=== PATIENT | female | born 1985 | race Caucasian/White ===

== ENCOUNTER 2020-05-05 13:00 | Outpatient (RCR) | payer OTHER, SELFPAY ==
--- NOTE | 2020-01-04 14:35 | HO.PHPPROGNO ---
Subjective Subjective Date of Service: 01/04/20 Reason For Visit: depression Interim History: Sandi reports she has completed PHP with [facility]. They are looking for a prescriber for her and she will do an OP LGBT group. She is on the waiting list for a trauma group as well. Mood depends on the day . Pristiq is tolerated but was hard at first with PENNY and feeling tired, then resolved. Fetzima has been stopped. She is prepared today to titrate to 100 mg daily of Pristiq. Sleep is ok with nightmares at times . Seroquel taper is at 150 mg. Today she would like to trial a decrease of 50 mg (mid-day dose), so we will do 50 mg a.m. 50 mg mid day prn and 150 mg hs. Attempting to go out with friends in community-following COVID guidelines and has purchased some plants. Plans to get a beta fish as well. Currently attending psychotherapy twice per week and will intake today to return to [facility] treatment which is one group per day. Discussed watching the presidential debate, it felt like my childhood to the core . Describes this as being very triggering for her. Mental Status Exam Mental Status Exam Patient Appearance: Appropriate Patient Orientation: Person, Place, Time and Situation Level of Consciousness: Awake, Appropriate and Alert Patient Behavior: Appropriate and Cooperative Mood Description: Constricted, Depressed and Flat Affect Description: Flat Patient Cognition Impaired: No Ability to Follow Directions: Excellent Speech Pattern: Clear Memory Description: Intact Perceptual Disturbances: Depersonalization Thought Process: Intact and Rumination Thought Content: positive for Intact and positive for Suicidal Ideation (passive, no current plan or intent-struggles with this consistently) Depressive Symptoms: Loss of Int. in Activity, Hopelessness, Thoughts of /Suicide, Low Self Esteem and Loss of Energy Judgement: Good Judgement and Insight: Intact Assessment & Plan Patient educated on: medication risk/benefits Informed Consent: understands Certification I certify that partial hospital treatment is medically necessary due to the symptoms and problems resulting from the patient's mental illness and the failure to treat the patient at the partial hospital level of care would likely result in the patient requiring inpatient psychiatric care which could not be prevented at a less intensive level of care. Greater than 50% of the session was spent on counseling and/or coordination of care Discharge Plan Discharge Attending provider: [place],Orin M Additional Instructions: Increase Pristiq to 100 mg daily Decrease Seroquel to 50 mg a.m. and 150 mg hs Keep Seroquel 50 mg mid day as prn only. Medications: New desvenlafaxine succinate [Pristiq] 100 mg tablet extended release 24 hr 100 mg PO DAILY Qty: 30 RF: 1 quetiapine [Seroquel] 50 mg tablet 50 mg PO DAILY Qty: 45 RF: 0 lithium carbonate 600 mg capsule 600 mg PO BID Qty: 60 RF: 0 dextroamphetamine-amphetamine [Adderall] 20 mg tablet 20 mg PO DAILY Qty: 30 RF: 0 dextroamphetamine-amphetamine [Adderall] 10 mg tablet 10 mg PO DAILY Qty: 30 RF: 0 No Action Ativan 1 mg 1 mg PO DAILY RF: 0 Ativan 1 mg 1 mg PO DAILY PRN (Reason: Anxiety) RF: 0 prazosin 5 mg 5 mg PO BEDTIME RF: 0 Seroquel 150 mg 150 mg PO BEDTIME RF: 0
--- NOTE | 2020-02-06 09:41 | HO.OPPROGNO ---
Subjective Subjective Date of Service: 01/11/20 Reason For Visit: depression Interim History: Jonathon will have an intake with [facility] on 01/21 for LGBT Group meeting virtually on Tuesdays from 5-6 pm. She has re-started [facility] daily group-was pleased to see familiar faces. Group is small- 6 members, leader and one it intern. Notices some of the energy has shifted in group. Home is less stressed, marcia has lost a family member this year and grief is palpable. Pt able to talk with her CHANGE LEAD from [facility] who is changing jobs and have some closure which she is satisfied with. Medications- Pristiq is tolerated and without SE. Pt finds it to be effective. Cessation of afternoon Seroquel with change to prn has also been tolerated without sx breakthrough or adverse effects. Pt plans to go to every other week med appt. Medication Compliance: Yes Side effects from medications: No Attending Groups: Yes ([facility] Day Treatment daily 1 hours, [place] LGBT group weekly to begin.) Review of Systems Review of Systems Yes all other systems are reviewed and are negative Psychiatric: Reports depression, Reports hopelessness, Reports anhedonia and Reports suicidal ideation (SI is persistant. Jonathon struggles with this on an ongoing basis. ) Mental Status Exam Mental Status Exam Patient Orientation: Person, Place, Time and Situation Level of Consciousness: Awake, Appropriate and Alert Patient Behavior: Appropriate, Cooperative and Passive Mood Description: Depressed Affect Description: Calm and Constricted Patient Cognition Impaired: No Ability to Follow Directions: Excellent Speech Pattern: Clear, Appropriate and Spontaneous Speech Memory Description: Intact Hallucinations: None Delusions: Not Present Thought Process: Intact Thought Content: positive for Intact and positive for Suicidal Ideation (persistant-able to contract for safety) Depressive Symptoms: Loss of Int. in Activity, Feelings of Worthlessness, Hopelessness, Unhappiness and Low Self Esteem Judgement: Good Discharge Plan Discharge Attending provider: Orin Albrecht Additional Instructions: Increase Pristiq to 100 mg daily Decrease Seroquel to 50 mg a.m. and 150 mg hs Keep Seroquel 50 mg mid day as prn only. 01/11/20- No changes today. email: [email or web address] next appt 01/23/20 will change to every other week. Medications: New desvenlafaxine succinate [Pristiq] 100 mg tablet extended release 24 hr 100 mg PO DAILY Qty: 30 RF: 1 quetiapine [Seroquel] 50 mg tablet 50 mg PO DAILY Qty: 45 RF: 0 dextroamphetamine-amphetamine [Adderall] 20 mg tablet 20 mg PO DAILY Qty: 30 RF: 0 dextroamphetamine-amphetamine [Adderall] 10 mg tablet 10 mg PO DAILY Qty: 30 RF: 0 lorazepam 1 mg tablet 1 mg PO BID PRN (Reason: anxiety) Qty: 60 RF: 0 Continued lithium carbonate 600 mg capsule 600 mg PO BID Qty: 60 RF: 1 Discontinued Ativan 1 mg 1 mg PO DAILY RF: 0 Ativan 1 mg 1 mg PO DAILY PRN (Reason: Anxiety) RF: 0 No Action prazosin 5 mg 5 mg PO BEDTIME RF: 0 Seroquel 150 mg 150 mg PO BEDTIME RF: 0 Assessment & Plan Patient educated on: medication risk/benefits and therapeutic strategies Informed Consent: understands and further education needed Reason for contiued therapy Substantial Risk for: harm to self, inability to function and rapid decompensation Greater than 50% of the session was spent on counseling and/or coordination of care
--- NOTE | 2020-02-06 11:08 | P.PNPSO_ITS ---
Subjective Subjective Date of Service: 01/23/20 Reason For Visit: depression Interim History: Reports regime to be effective. Discussed discontinuing a.m. Seroquel 50 mg., leaving Seroquel as 50 mg bid prn and [address] in [address]. We have been attempting to work around COVID to schedule a sleep eval for pt. At this time, since COVID cases are increasing, we will hold on this evaluation per pt request. She will notify global technical writer when comfortable to reschedule. Discussed concern about a friend who is hospitalized, also reports sore muscles -back, neck, shoulders and exacerbation of tennis elbow. Medication Compliance: Yes Side effects from medications: No Attending Groups: Yes ([facility], one hour group daily/[facility] grp pending) Review of Systems Reports neck pain Musculoskeletal: Reports back pain, Reports myalgias, Reports arthralgias and Reports neck pain Comments: Shoulder pain, exacerbation of tennis elbow. Psychiatric: Reports depression, Reports hopelessness and Reports other (muscle and joint pain) Mental Status Exam Mental Status Exam Patient Appearance: Well Grooomed and Appropriate Patient Orientation: Person, Place and Time Level of Consciousness: Awake, Appropriate and Alert Patient Behavior: Appropriate and Cooperative Mood Description: Depressed Affect Description: Flat Patient Cognition Impaired: No Ability to Follow Directions: Excellent Speech Pattern: Clear, Appropriate and Spontaneous Speech Memory Description: Intact Hallucinations: None Delusions: Not Present Thought Process: Intact and Goal Oriented Thought Content: positive for Intact Depressive Symptoms: Muscle Tension, Muscle Pain, Hopelessness, Unhappiness, Increased Fatigue, Thoughts of /Suicide (ongoing-able to contract for her safety.) and Back Pain Judgement: Good Discharge Plan Discharge Attending provider: Orin Albrecht Additional Instructions: Increase Pristiq to 100 mg daily Decrease Seroquel to 50 mg a.m. and 150 mg hs Keep Seroquel 50 mg mid day as prn only. 01/11/20- No changes today. email: [email or web address] next appt 01/23/20 will change to every other week. 01/23/20: Discontinue Seroquel 50 mg bid, Change to Seroquel 50 mg bid prn, Continue Seroquel 150 mg hs, Medications: New desvenlafaxine succinate [Pristiq] 100 mg tablet extended release 24 hr 100 mg PO DAILY Qty: 30 RF: 1 quetiapine [Seroquel] 50 mg tablet 50 mg PO DAILY Qty: 45 RF: 0 dextroamphetamine-amphetamine [Adderall] 20 mg tablet 20 mg PO DAILY Qty: 30 RF: 0 dextroamphetamine-amphetamine [Adderall] 10 mg tablet 10 mg PO DAILY Qty: 30 RF: 0 lorazepam 1 mg tablet 1 mg PO BID PRN (Reason: anxiety) Qty: 60 RF: 0 Continued lithium carbonate 600 mg capsule 600 mg PO BID Qty: 60 RF: 1 Discontinued Ativan 1 mg 1 mg PO DAILY RF: 0 Ativan 1 mg 1 mg PO DAILY PRN (Reason: Anxiety) RF: 0 No Action prazosin 5 mg 5 mg PO BEDTIME RF: 0 Seroquel 150 mg 150 mg PO BEDTIME RF: 0 Assessment & Plan Patient educated on: medication risk/benefits and therapeutic strategies Informed Consent: understands and further education needed Reason for contiued therapy Substantial Risk for: harm to self, inability to function and rapid decompe nsation Greater than 50% of the session was spent on counseling and/or coordination of care
--- NOTE | 2020-02-07 20:37 | HO.OPPROGNO ---
Subjective Subjective Date of Service: 02/07/20 Reason For Visit: depression Interim History: Pt reports a difficult week-election process has been stressful for her. She has had insomnia since Tuesday with GI distress. She has been able to stop Seroquel 50 mg bid and is just using 200 mg HS. She has initiated a LGBT group with [facility] weekly and is finding it helpful after two sessions. She does note lability and numbess, sadness and anxiety with the world at this moment in time. Remainder of regime is intact. Medication Compliance: Yes Side effects from medications: No Attending Groups: Yes ([facility]) Review of Systems Gastrointestinal: Reports nausea (pt believes this is due to anxiety) Psychiatric: Reports abnormal sleep pattern, Reports anxiety, Reports depression, Reports difficulty concentrating, Reports hopelessness, Reports irritability, Reports anhedonia and Reports suicidal ideation Comments: passive, without plan or intent. Mental Status Exam Mental Status Exam Patient Appearance: Well Grooomed and Appropriate Patient Orientation: Person, Place, Time and Situation Level of Consciousness: Awake, Appropriate and Alert Patient Behavior: Appropriate Affect Description: Flat Patient Cognition Impaired: No Ability to Follow Directions: Excellent Speech Pattern: Clear, Appropriate and Spontaneous Speech Memory Description: Intact Hallucinations: None Delusions: Not Present Perceptual Disturbances: Depersonalization (at times with PTSD sx.) Thought Process: Intact Thought Content: positive for Intact and positive for Suicidal Ideation (passive, no plan or intent) Depressive Symptoms: Increased Anxiety, Insomnia, Difficulty Sleeping, Loss of Int. in Activity, Feelings of Worthlessness, Hopelessness, Unhappiness, Increased Fatigue, Low Self Esteem and Loss of Energy Judgement: Good Discharge Plan Discharge Attending provider: Orin Albrecht Additional Instructions: Increase Pristiq to 100 mg daily Decrease Seroquel to 50 mg a.m. and 150 mg hs Keep Seroquel 50 mg mid day as prn only. 01/11/20- No changes today. email: [email or web address] next appt 01/23/20 will change to every other week. 01/23/20: Discontinue Seroquel 50 mg bid, Change to Seroquel 50 mg bid prn, Continue Seroquel 150 mg hs, 02/07/20: Increase HS Seroquel to 200 mg hs. Continue previous regime. Medications: New desvenlafaxine succinate [Pristiq] 100 mg tablet extended release 24 hr 100 mg PO DAILY Qty: 30 RF: 1 lorazepam 1 mg tablet 1 mg PO BID PRN (Reason: anxiety) Qty: 60 RF: 0 quetiapine [Seroquel] 200 mg tablet 200 mg PO BEDTIME Qty: 30 RF: 1 Continued lithium carbonate 600 mg capsule 600 mg PO BID Qty: 60 RF: 1 dextroamphetamine-amphetamine [Adderall] 10 mg tablet 10 mg PO DAILY Qty: 30 RF: 0 dextroamphetamine-amphetamine [Adderall] 20 mg tablet 20 mg PO DAILY Qty: 30 RF: 0 Discontinued Ativan 1 mg 1 mg PO DAILY RF: 0 Ativan 1 mg 1 mg PO DAILY PRN (Reason: Anxiety) RF: 0 Seroquel 150 mg 150 mg PO BEDTIME RF: 0 No Action prazosin 5 mg 5 mg PO BEDTIME RF: 0 Assessment & Plan Patient educated on: medication risk/benefits and therapeutic strategies Informed Consent: understands Reason for contiued therapy Substantial Risk for: harm to self and rapid decompensation Greater than 50% of the session was spent on counseling and/or coordination of care
--- NOTE | 2020-02-22 13:36 | P.PNPSO_ITS ---
Subjective Subjective Date of Service: 02/22/20 Reason For Visit: depression Interim History: Reports regime and recent tapering of Seroquel to be tolerated. Will stop tapering currently as she is wanting to avoid any chance of needing in pt care due to COVID. Unsure of holiday plans-wanting to cancel, however, does not believe her family will understand. Medication Compliance: Yes Side effects from medications: No Attending Groups: Yes ([facility] daily, [facility] weekly) Review of Systems Review of Systems Yes all other systems are reviewed and are negative Reports mouth pain (pt cracked her tooth-has made a dental appt for evaluation) Psychiatric: Reports anxiety (COVID related), Reports depression and Reports suicidal ideation (no plan, no intent today) Mental Status Exam Mental Status Exam Patient Orientation: Person, Place, Time and Situation Level of Consciousness: Awake and Alert Patient Behavior: Appropriate Mood Description: Anxious, Flat and Sad Affect Description: Flat Patient Cognition Impaired: No Ability to Follow Directions: Excellent Speech Pattern: Clear, Spontaneous Speech, Coherent and Soft-Spoken Memory Description: Intact Hallucinations: None Delusions: Not Present Perceptual Disturbances: Depersonalization (with dissociation at times-terminal operations manager 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 and 150 mg hs Keep Seroquel 50 mg mid day as prn only. 01/11/20- No changes today. email: [email or web address] next appt 01/23/20 will change to every other week. 01/23/20: Discontinue Seroquel 50 mg bid, Change to Seroquel 50 mg bid prn, Continue Seroquel 150 mg hs, 02/07/20: Increase HS Seroquel to 200 mg hs. Continue previous regime. 02/22/20: Continue current regime. Experiencing pain-OTC Tylenol ES ordered. Dental appt pending. Medications: New quetiapine [Seroquel] 200 mg tablet 200 mg PO BEDTIME Qty: 30 RF: 1 acetaminophen [Acetaminophen Extra Strength] 500 mg tablet 500 mg PO Q6H PRN (Reason: pain) 30 Days Qty: 60 RF: 0 Continued dextroamphetamine-amphetamine [Adderall] 10 mg tablet 10 mg PO DAILY Qty: 30 RF: 0 dextroamphetamine-amphetamine [Adderall] 20 mg tablet 20 mg PO DAILY Qty: 30 RF: 0 lithium carbonate 600 mg capsule 600 mg PO BID Qty: 60 RF: 1 lorazepam 1 mg tablet 1 mg PO BID PRN (Reason: anxiety) Qty: 60 RF: 0 desvenlafaxine succinate [Pristiq] 100 mg tablet extended release 24 hr 100 mg PO DAILY Qty: 30 RF: 1 Discontinued Ativan 1 mg 1 mg PO DAILY RF: 0 Ativan 1 mg 1 mg PO DAILY PRN (Reason: Anxiety) RF: 0 Seroquel 150 mg 150 mg PO BEDTIME RF: 0 No Action prazosin 5 mg 5 mg PO BEDTIME RF: 0 Assessment & Plan Patient educated on: medication risk/benefits, therapeutic strategies and medical condition Informed Consent: understands Reason for contiued therapy Substantial Risk for: harm to self, inability to function and rapid decompensation Greater than 50% of the session was spent on counseling and/or coordination of care
--- NOTE | 2020-03-10 16:06 | HO.PHPPROGNO ---
Subjective Subjective Date of Service: 03/10/20 Reason For Visit: depression Interim History: Pt attended a dental appt and will begin work tomorrow with fillings on the right side. Discussed [facility] [place]. Pt tearful- therapist has closed her office, [facility] has lost their space at [facility] for residential. Discussed 90 day transition and discussed potential options. Discussed losses and changes of the pandemic which are difficult. Pt able to contract for safety, discussed the difficulty in making changes. I have lost all of the places I used to go to see people. Discussed that known providers at [place] are leaving as well. Pt asked about PHP program-assured that PHP will remain for pt to access as needed. Discussed labs for Apr 2020. Pt feeling comfortable with this as vaccine will hopefully be available. Today will need Prazosin, Vitamin D and Adderall refills. Review of Systems Psychiatric: Reports depression and Reports other (difficulty with several treatment changes pandemic is precipitating.) Mental Status Exam Mental Status Exam Patient Appearance: Well Grooomed and Appropriate Patient Orientation: Person, Place, Time and Situation Level of Consciousness: Awake and Alert Patient Behavior: Appropriate, Guarded, Cooperative, Anxious and Crying Mood Description: Withdrawn, Depressed and Anxious Affect Description: Flat Patient Cognition Impaired: No Ability to Follow Directions: Excellent Speech Pattern: Clear, Appropriate and Spontaneous Speech Memory Description: Intact Hallucinations: None Delusions: Not Present Thought Process: Intact Thought Content: positive for Intact Depressive Symptoms: Increased Anxiety and Crying Spells Judgement: Good Diagnostics Labs Labs: Discussed with pt. Plans Apr 2020. Assessment & Plan Assessment & Plan (1) PTSD (post-traumatic stress disorder): Status: Acute Code(s): F43.10 - Post-traumatic stress disorder, unspecified Assessment and Plan: Continue current plan. Support/process through transition. (2) Recurrent major depression-severe: Status: Acute Code(s): F33.2 - Major depressive disorder, recurrent severe without psychotic features Assessment and Plan: Continue current plan. Certification I certify that partial hospital treatment is medically necessary due to the symptoms and problems resulting from the patient's mental illness and the failure to treat the patient at the partial hospital level of care would likely result in the patient requiring inpatient psychiatric care which could not be prevented at a less intensive level of care. Greater than 50% of the session was spent on counseling and/or coordination of care Discharge Plan Discharge Attending provider: Orin Albrecht Additional Instructions: Increase Pristiq to 100 mg daily Decrease Seroquel to 50 mg a.m. and 150 mg hs Keep Seroquel 50 mg mid day as prn only. 01/11/20- No changes today. email: [email or web address] next appt 01/23/20 will change to every other week. 01/23/20: Discontinue Seroquel 50 mg bid, Change to Seroquel 50 mg bid prn, Continue Seroquel 150 mg hs, 02/07/20: Increase HS Seroquel to 200 mg hs. Continue previous regime. 02/22/20: Continue current regime. Experiencing pain-OTC Tylenol ES ordered. Dental appt pending. Medications: New quetiapine [Seroquel] 200 mg tablet 200 mg PO BEDTIME Qty: 30 RF: 1 acetaminophen [Acetaminophen Extra Strength] 500 mg tablet 500 mg PO Q6H PRN (Reason: pain) 30 Days Qty: 60 RF: 0 cholecalciferol (vitamin D3) [Vitamin D3] 50 mcg (2,000 unit) capsule 50 mcg PO DAILY Qty: 30 RF: 3 Continued lithium carbonate 600 mg capsule 600 mg PO BID Qty: 60 RF: 1 lorazepam 1 mg tablet 1 mg PO BID PRN (Reason: anxiety) Qty: 60 RF: 0 desvenlafaxine succinate [Pristiq] 100 mg tablet extended release 24 hr 100 mg PO DAILY Qty: 30 RF: 1 dextroamphetamine-amphetamine [Adderall] 10 mg tablet 10 mg PO DAILY Qty: 30 RF: 0 dextroamphetamine-amphetamine [Adderall] 20 mg tablet 20 mg PO DAILY Qty: 30 RF: 0 prazosin 5 mg 5 mg PO BEDTIME Qty: 30 RF: 1 Discontinued Ativan 1 mg 1 mg PO DAILY RF: 0 Ativan 1 mg 1 mg PO DAILY PRN (Reason: Anxiety) RF: 0 Seroquel 150 mg 150 mg PO BEDTIME RF: 0
--- NOTE | 2020-03-20 08:27 | P.EN_ITS ---
Event Note Date of Service: 03/20/20 Event Note: On 03/07/20, [place] [facility] [place]. Discussed options for care.
--- NOTE | 2020-03-20 08:27 | PM.EVENT ---
Event Note Date of Service: 03/20/20 Event Note: On 03/07/20, discussed with pt that [facility] out patient clinic will close. Discussed options for care.
--- NOTE | 2020-03-26 15:36 | HO.OPPROGNO ---
Subjective Subjective Date of Service: 03/31/20 Reason For Visit: depression Interim History: Difficulties with the isolative nature of the pandemic-several treatment changes as a result and the length of time this has extended is challenging. Attempting to work around constraints and be creative. Plans to attend mother's holiday celebration this week. Discussed aftercare follow up with clinic closing. No medication changes currently. Medication Compliance: Yes Side effects from medications: No Attending Groups: Yes ([facility]; [facility] weekly-all telehealth) Review of Systems Review of Systems Yes all other systems are reviewed and are negative Psychiatric: Reports anxiety, Reports depression, Reports hopelessness and Reports anhedonia Mental Status Exam Mental Status Exam Patient Appearance: Well Grooomed and Appropriate Patient Orientation: Person, Place, Time and Situation Level of Consciousness: Awake, Appropriate and Alert Patient Behavior: Appropriate and Passive Mood Description: Withdrawn, Depressed and Flat Affect Description: Flat Patient Cognition Impaired: No Ability to Follow Directions: Good Speech Pattern: Clear, Appropriate, Spontaneous Speech, Coherent and Soft-Spoken Memory Description: Intact Hallucinations: None Delusions: Not Present Thought Process: Intact and Rumination Thought Content: positive for Intact and positive for Circumstantial Depressive Symptoms: Increased Anxiety, Hopelessness, Isolating-Friends/Family (due to pandemic constrictions), Unhappiness, Thoughts of /Suicide (chronic SI- working with this diligently- no current active plan or intent) and Loss of Energy Judgement: Good Diagnostics Labs Labs: Plans labs for Apr 2020. Discharge Plan Discharge Attending provider: Orin Albrecht Additional Instructions: 03/26/20: Continue current regime. Medications: New quetiapine [Seroquel] 200 mg tablet 200 mg PO BEDTIME Qty: 30 RF: 1 acetaminophen [Acetaminophen Extra Strength] 500 mg tablet 500 mg PO Q6H PRN (Reason: pain) 30 Days Qty: 60 RF: 0 cholecalciferol (vitamin D3) [Vitamin D3] 50 mcg (2,000 unit) capsule 50 mcg PO DAILY Qty: 30 RF: 3 prazosin 5 mg capsule 5 mg PO BEDTIME Qty: 30 RF: 1 B Complex Plus Vitamin C 52-66-68-5-300 mg capsule 1 cap PO DAILY Qty: 30 RF: 3 Continued lithium carbonate 600 mg capsule 600 mg PO BID Qty: 60 RF: 1 desvenlafaxine succinate [Pristiq] 100 mg tablet extended release 24 hr 100 mg PO DAILY Qty: 30 RF: 1 dextroamphetamine-amphetamine [Adderall] 10 mg tablet 10 mg PO DAILY Qty: 30 RF: 0 dextroamphetamine-amphetamine [Adderall] 20 mg tablet 20 mg PO DAILY Qty: 30 RF: 0 prazosin 5 mg 5 mg PO BEDTIME Qty: 30 RF: 1 lorazepam 1 mg tablet 1 mg PO BID PRN (Reason: anxiety) Qty: 60 RF: 0 Discontinued Ativan 1 mg 1 mg PO DAILY RF: 0 Ativan 1 mg 1 mg PO DAILY PRN (Reason: Anxiety) RF: 0 Seroquel 150 mg 150 mg PO BEDTIME RF: 0 Assessment & Plan Assessment & Plan (1) Recurrent major depression-severe: Status: Acute Code(s): F33.2 - Major depressive disorder, recurrent severe without psychotic features (2) PTSD (post-traumatic stress disorder): Status: Acute Code(s): F43.10 - Post-traumatic stress disorder, unspecified Patient educated on: medication risk/benefits and therapeutic strategies Informed Consent: understands Reason for contiued therapy Substantial Risk for: harm to self, inability to function and rapid decompensation Greater than 50% of the session was spent on counseling and/or coordination of care Telehealth Telehealth Location of provider rendering services: practice address Location of patient: address on file Patient Identification confirmed using: Name, : Yes Telehealth method: video Patient verbally consented to treatment: Yes Patient verbally consented to billing insurance company: Yes Patient informed of any privacy concerns related to visit: Yes Time spent with patient (mins): 25
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
--- NOTE | 2020-04-18 15:45 | HO.OPPROGNO ---
Subjective Subjective Date of Service: 05/09/20 Reason For Visit: depression Interim History: Seroquel taper to 150 mg is tolerable. Some muscle aches but managable. Using Trazodone for insomnia with results. Is able to fall asleep, but CHAVEZ sx persisted for a few days which is resolving with taper. Treatment is going well per pt report. Medication Compliance: Yes Side effects from medications: Yes (as noted above) Attending Groups: Yes ([facility]) Review of Systems Review of Systems Yes all other systems are reviewed and are negative Psychiatric: Reports abnormal sleep pattern Mental Status Exam Mental Status Exam Patient Appearance: Appropriate Patient Orientation: Person, Place, Time and Situation Level of Consciousness: Awake and Alert Patient Behavior: Talkative Mood Description: Flat Affect Description: Flat Patient Cognition Impaired: No Ability to Follow Directions: Good Speech Pattern: Spontaneous Speech Memory Description: Intact Hallucinations: None Delusions: Not Present Thought Process: Intact and Distracted Thought Content: positive for Intact Depressive Symptoms: Difficulty Sleeping, Muscle Pain, Hopelessness and Thoughts of /Suicide (persistant, however, decreased, no active plan or intent, passive) Judgement: Good Discharge Plan Discharge Attending provider: Orin Johnson Additional Instructions: 03/26/20: Continue current regime. Medications: New acetaminophen [Acetaminophen Extra Strength] 500 mg tablet 500 mg PO Q6H PRN (Reason: pain) 30 Days Qty: 60 RF: 0 quetiapine [Seroquel] 100 mg tablet 100 mg PO BEDTIME Qty: 30 RF: 1 thiamine HCl (vitamin B1) [Vitamin B-1] 100 mg tablet 100 mg PO DAILY Qty: 30 RF: 3 Continued prazosin 5 mg 5 mg PO BEDTIME Qty: 30 RF: 1 dextroamphetamine-amphetamine [Adderall] 10 mg tablet 10 mg PO DAILY Qty: 30 RF: 0 dextroamphetamine-amphetamine [Adderall] 20 mg tablet 20 mg PO DAILY Qty: 30 RF: 0 cholecalciferol (vitamin D3) [Vitamin D3] 50 mcg (2,000 unit) capsule 50 mcg PO DAILY Qty: 30 RF: 3 trazodone 50 mg tablet 50 mg PO BEDTIME PRN (Reason: insomnia) Qty: 30 RF: 1 prazosin 5 mg capsule 5 mg PO BEDTIME Qty: 30 RF: 1 lithium carbonate 600 mg capsule 600 mg PO BID Qty: 60 RF: 1 B Complex Plus Vitamin C 56-62-88-5-300 mg capsule 1 cap PO DAILY Qty: 30 RF: 3 desvenlafaxine succinate [Pristiq] 100 mg tablet extended release 24 hr 100 mg PO DAILY Qty: 30 RF: 1 lorazepam 1 mg tablet 1 mg PO BID PRN (Reason: anxiety) Qty: 60 RF: 0 Discontinued Ativan 1 mg 1 mg PO DAILY RF: 0 Ativan 1 mg 1 mg PO DAILY PRN (Reason: Anxiety) RF: 0 Seroquel 150 mg 150 mg PO BEDTIME RF: 0 Assessment & Plan Assessment & Plan (1) PTSD (post-traumatic stress disorder): Status: Acute Code(s): F43.10 - Post-traumatic stress disorder, unspecified Assessment and Plan: continue current regime (2) Recurrent major depression-severe: Status: Acute Code(s): F33.2 - Major depressive disorder, recurrent severe without psychotic features Greater than 50% of the session was spent on counseling and/or coordination of care Telehealth Telehealth Location of provider rendering services: practice address Location of patient: address on file Patient Identification confirmed using: Name, : Yes Telehealth method: video Patient verbally consented to treatment: Yes Patient verbally consented to billing insurance company: Yes Patient informed of any privacy concerns related to visit: Yes Time spent with patient (mins): 20
== END 2020-06-01 23:55 | disposition home or self-care (01) ==
LOC: HO.PAOS 13:00
PROVIDERS: Visit Provider Clinical Nurse Specialist Psychiatric/Mental Health, Adult
DX: F43.10 Post-traumatic stress disorder, unspecified (principal); F33.2 Major depressive disorder, recurrent severe without psychotic features
CPT/HCPCS: 99213; 99214

== ENCOUNTER 2020-09-03 10:00 | Outpatient (RCR) | payer OTHER, SELFPAY ==
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
--- NOTE | 2020-08-07 13:18 | PC.ADMIT ---
Patient was referred to the [facility] by her psychiatrist d/t increased depression with SI. Patient reported to staff that she has a Rolodex of plans however has no intent to follow through. Patient agreed to let staff know if she is feeling unsafe. Patient has a history of chronic SI and a history of trauma. Patient also reports that she has been dissociating more. Reports being triggered by possible losing her therapist in October d/t insurance changes. Patient reports she has been seeing her therapist for the past 4 years and this is triggering her abandonment issues. Patient is alert and oriented x4. Presents with depressed mood, flat affect. Patient reports she has SI thoughts, denied intent to act on thoughts. Patient reports if feeling unsafe she would contact Analy if patient is in the program and will call her therapist or go to the ER if needed. Patient also has the crisis number. Patient gave verbal permission to email her a copy of her safety plan. Medications reconciled with patient and patient's pharmacy. Reports taking medications as prescribed.
--- NOTE | 2020-08-12 12:36 | P.PNPSP_ITS ---
Subjective Subjective Date of Service: 08/12/20 Reason For Visit: PTSD, MDD severe Interim History: The patient reported that she does not like Seroquel, and she feels that it doesn't help her but she doesn't want to change any medication. She stated that she has been on Seroquel for years and anytime that the dose is changed, she ended inpatient. So far, she is able to contract for safety. Medication Compliance: Yes Side effects from medications: No Attending Groups: Yes Review of Systems Acute medical concerns: No Medical Review of Systems: unchanged Mental Status Exam Mental Status Exam Patient Appearance: Well Grooomed Patient Orientation: Person, Place, Time and Situation Level of Consciousness: Awake Patient Behavior: Appropriate Mood Description: Withdrawn Affect Description: Constricted Patient Cognition Impaired: No Ability to Follow Directions: Good Speech Pattern: Clear Memory Description: Intact Hallucinations: None Delusions: Not Present Thought Process: Goal Oriented Thought Content: positive for Intact Judgement: Fair Assessment & Plan Assessment & Plan (1) Borderline personality disorder: Status: Acute Code(s): F60.3 - Borderline personality disorder Assessment and Plan: The patient is an adult female with a long history of borderline personality disorder, depression and PTSD with several admissions, referred to [facility] for exacerbation of depression. Plan: Keep same treatment. (2) Recurrent major depression-severe: Status: Acute Code(s): F33.2 - Major depressive disorder, recurrent severe without psychotic features (3) PTSD (post-traumatic stress disorder): Status: Acute Code(s): F43.10 - Post-traumatic stress disorder, unspecified Certification I certify that partial hospital treatment is medically necessary due to the symptoms and problems resulting from the patient's mental illness and the failure to treat the patient at the partial hospital level of care would likely result in the patient requiring inpatient psychiatric care which could not be prevented at a less intensive level of care. Greater than 50% of the session was spent on counseling and/or coordination of care Discharge Plan Discharge Attending provider: Raffi Pozo Primary Care Provider: Laura Collins Medications: No Action quetiapine [Seroquel] 25 mg Tablet 25 mg PO BID RF: 0 lithium carbonate 300 mg Tablet Extended Release 600 mg PO BID RF: 0 levomefolate calcium [L-Methylfolate] 15 mg Tablet 15 mg PO DAILY RF: 0 dextroamphetamine-amphetamine [Adderall] 10 mg tablet 10 mg PO DAILY@1400 RF: 0 quetiapine [Seroquel] 100 mg tablet 100 mg PO BEDTIME Qty: 30 RF: 1 dextroamphetamine-amphetamine [Adderall] 20 mg tablet 20 mg PO DAILY Qty: 30 RF: 0 cholecalciferol (vitamin D3) [Vitamin D3] 50 mcg (2,000 unit) capsule 50 mcg PO DAILY Qty: 30 RF: 3 trazodone 50 mg tablet 50 mg PO BEDTIME PRN (Reason: insomnia) Qty: 30 RF: 1 prazosin 5 mg capsule 5 mg PO BEDTIME Qty: 30 RF: 1 desvenlafaxine succinate [Pristiq] 100 mg tablet extended release 24 hr 100 mg PO DAILY Qty: 30 RF: 1 thiamine HCl (vitamin B1) [Vitamin B-1] 100 mg tablet 100 mg PO DAILY Qty: 30 RF: 3 lorazepam 1 mg tablet 1 mg PO BID PRN (Reason: anxiety) Qty: 60 RF: 0 Telehealth Telehealth Location of provider rendering services: practice address Location of patient: address on file Patient Identification confirmed using: Name, : Yes Telehealth method: video Patient verbally consented to treatment: Yes Patient verbally consented to billing insurance company: Yes Patient informed of any privacy concerns related to visit: No Time spent with patient (mins): 15
--- NOTE | 2020-08-18 13:29 | HO.PHPPROGNO ---
Subjective Subjective Date of Service: 08/18/20 Reason For Visit: PTSD, MDD severe Interim History: The patient remains dysphoric, with chronic SI but able to contract for safety. So far, she was unable to improve her mood with psychotherapy. We reviewed her list of medications, and she agreed to replace Trazodone PRN to Remeron 15 scheduled. Medication Compliance: Yes Side effects from medications: No Attending Groups: Yes Mental Status Exam Mental Status Exam Patient Appearance: Well Grooomed Patient Orientation: Person, Place, Time and Situation Level of Consciousness: Awake and Appropriate Patient Behavior: Cooperative and Passive Mood Description: Withdrawn and Depressed Affect Description: Constricted Patient Cognition Impaired: No Ability to Follow Directions: Good Speech Pattern: Clear Memory Description: Intact Hallucinations: None Delusions: Not Present Thought Process: Goal Oriented Thought Content: positive for Intact Judgement: Fair Assessment & Plan Assessment & Plan (1) Borderline personality disorder: Status: Acute Code(s): F60.3 - Borderline personality disorder (2) Recurrent major depression-severe: Status: Acute Code(s): F33.2 - Major depressive disorder, recurrent severe without psychotic features Assessment and Plan: Adult female with Borderline personality disorder, PTSD, MDD with several admissions for suicidality, referred to [facility] for exacerbation of depression. So far, she has been unable to taper Seroquel off and she has been dysphoric with no change on her mental status. Plan: Replace Trazodone PRN to Remeron 15 mg po qhs REst the same. F/U in 1 week (3) PTSD (post-traumatic stress disorder): Status: Acute Code(s): F43.10 - Post-traumatic stress disorder, unspecified Certification I certify that partial hospital treatment is medically necessary due to the symptoms and problems resulting from the patient's mental illness and the failure to treat the patient at the partial hospital level of care would likely result in the patient requiring inpatient psychiatric care which could not be prevented at a less intensive level of care. Greater than 50% of the session was spent on counseling and/or coordination of care Discharge Plan Discharge Attending provider: Raffi Pozo Primary Care Provider: Laura Collins Medications: New mirtazapine 15 mg tablet 15 mg PO BEDTIME 14 Days Qty: 14 RF: 0 Continued levomefolate calcium [L-Methylfolate] 15 mg Tablet 15 mg PO DAILY RF: 0 quetiapine [Seroquel] 25 mg Tablet 25 mg PO BID Qty: 60 RF: 0 thiamine HCl (vitamin B1) [Vitamin B-1] 100 mg tablet 100 mg PO DAILY Qty: 30 RF: 3 lithium carbonate 300 mg Tablet Extended Release 600 mg PO BID 30 Days Qty: 60 RF: 0 quetiapine [Seroquel] 100 mg tablet 100 mg PO BEDTIME Qty: 30 RF: 1 prazosin 5 mg capsule 5 mg PO BEDTIME Qty: 30 RF: 1 dextroamphetamine-amphetamine [Adderall] 20 mg tablet 20 mg PO DAILY Qty: 30 RF: 0 lorazepam 1 mg tablet 1 mg PO BID PRN (Reason: anxiety) Qty: 60 RF: 0 desvenlafaxine succinate [Pristiq] 100 mg tablet extended release 24 hr 100 mg PO DAILY Qty: 30 RF: 1 cholecalciferol (vitamin D3) [Vitamin D3] 50 mcg (2,000 unit) capsule 50 mcg PO DAILY Qty: 30 RF: 3 Changed dextroamphetamine-amphetamine [Adderall] 10 mg tablet 10 mg PO DAILY@1400 Qty: 30 RF: 0 Discontinued trazodone 50 mg tablet 50 mg PO BEDTIME PRN (Reason: insomnia) Qty: 30 RF: 1 Telehealth Telehealth Location of provider rendering services: practice address Location of patient: address on file Patient Identification confirmed using: Name, : Yes Telehealth method: video Patient verbally consented to treatment: Yes Patient verbally consented to billing insurance company: Yes Patient informed of any privacy concerns related to visit: No Time spent with patient (mins): 15
--- NOTE | 2020-08-25 13:43 | P.PNPSP_ITS ---
Subjective Subjective Date of Service: 08/25/20 Reason For Visit: PTSD, MDD severe Healthcare Proxy: No Guardianship: No Medical Problems Affecting Mental Status: No Interim History: The patient reports chronic dysphoria, no changes of her mental status with the replacement of trazodone with REmeron. Sleep remains the same. NO safety concerns, able to contract for safety. Medication Compliance: Yes Side effects from medications: No Attending Groups: Yes Mental Status Exam Mental Status Exam Patient Appearance: Well Grooomed Patient Orientation: Person, Place, Time and Situation Level of Consciousness: Awake Patient Behavior: Appropriate Mood Description: Calm Affect Description: Withdrawn Patient Cognition Impaired: No Ability to Follow Directions: Good Speech Pattern: Clear Memory Description: Intact Hallucinations: None Delusions: Not Present Thought Process: Goal Oriented Thought Content: positive for Circumstantial Depressive Symptoms: Increased Anxiety and Increased Irritability Judgement: Fair Assessment & Plan Assessment & Plan (1) Borderline personality disorder: Status: Acute Code(s): F60.3 - Borderline personality disorder Assessment and Plan: The patient is an adult female with chronic depression, cluster B traits, with several admissions to inpatient and [facility], currently depressed. Plan: Keep REmeron 15 mg po qhs (2) Recurrent major depression-severe: Status: Acute Code(s): F33.2 - Major depressive disorder, recurrent severe without psychotic features (3) PTSD (post-traumatic stress disorder): Status: Acute Code(s): F43.10 - Post-traumatic stress disorder, unspecified Certification I certify that partial hospital treatment is medically necessary due to the symptoms and problems resulting from the patient's mental illness and the failure to treat the patient at the partial hospital level of care would likely result in the patient requiring inpatient psychiatric care which could not be prevented at a less intensive level of care. Greater than 50% of the session was spent on counseling and/or coordination of care Discharge Plan Discharge Attending provider: Raffi Pozo Primary Care Provider: Laura Collins Medications: Continued levomefolate calcium [L-Methylfolate] 15 mg Tablet 15 mg PO DAILY RF: 0 quetiapine [Seroquel] 25 mg Tablet 25 mg PO BID Qty: 60 RF: 0 thiamine HCl (vitamin B1) [Vitamin B-1] 100 mg tablet 100 mg PO DAILY Qty: 30 RF: 3 lithium carbonate 300 mg Tablet Extended Release 600 mg PO BID 30 Days Qty: 60 RF: 0 quetiapine [Seroquel] 100 mg tablet 100 mg PO BEDTIME Qty: 30 RF: 1 prazosin 5 mg capsule 5 mg PO BEDTIME Qty: 30 RF: 1 dextroamphetamine-amphetamine [Adderall] 20 mg tablet 20 mg PO DAILY Qty: 30 RF: 0 lorazepam 1 mg tablet 1 mg PO BID PRN (Reason: anxiety) Qty: 60 RF: 0 desvenlafaxine succinate [Pristiq] 100 mg tablet extended release 24 hr 100 mg PO DAILY Qty: 30 RF: 1 cholecalciferol (vitamin D3) [Vitamin D3] 50 mcg (2,000 unit) capsule 50 mcg PO DAILY Qty: 30 RF: 3 mirtazapine 15 mg tablet 15 mg PO BEDTIME 30 Days Qty: 30 RF: 0 Changed dextroamphetamine-amphetamine [Adderall] 10 mg tablet 10 mg PO DAILY@1400 Qty: 30 RF: 0 Discontinued trazodone 50 mg tablet 50 mg PO BEDTIME PRN (Reason: insomnia) Qty: 30 RF: 1 Referrals: Laura Collins MD [Primary Care Provider] - 1 Week Telehealth Telehealth Location of provider rendering services: practice address Location of patient: address on file Patient Identification confirmed using: Name, : Yes Telehealth method: video Patient verbally consented to treatment: Yes Patient verbally consented to billing insurance company: Yes Patient informed of any privacy concerns related to visit: No Time spent with patient (mins): 15
--- NOTE | 2020-08-26 13:10 | PC.NURSE ---
I called and left a message for Vanesa Rodriguez at [facility] to obtain an intake appt for pt to start in the day treatment program. I asked for a call back.
--- NOTE | 2020-09-03 12:30 | PC.NURSE ---
Patient is being discharged from the program today. Reviewed patient medications with patient. Patient reports taking medications as prescribed. Medication education provided.
--- NOTE | 2020-09-03 13:43 | P.PNPSP_ITS ---
Subjective Subjective Date of Service: 09/03/20 Reason For Visit: PTSD, MDD severe Interim History: The patient reported no major changes on her mental status. She is finishing PHP; she liked it. Medication Compliance: Yes Side effects from medications: No Attending Groups: No Mental Status Exam Mental Status Exam Patient Appearance: Well Grooomed Patient Orientation: Person, Place, Time and Situation Level of Consciousness: Awake and Appropriate Patient Behavior: Appropriate Mood Description: Calm Affect Description: Calm Patient Cognition Impaired: No Ability to Follow Directions: Good Speech Pattern: Clear Memory Description: Intact Hallucinations: None Delusions: Not Present Thought Process: Goal Oriented Thought Content: positive for Intact Judgement: Fair Assessment & Plan Assessment & Plan (1) Borderline personality disorder: Status: Acute Code(s): F60.3 - Borderline personality disorder Assessment and Plan: Adult female with cluster b traits, depression, PTSD with several admissions to inpatient and [facility], stable. Plan: Keep same treatment. (2) Recurrent major depression-severe: Status: Acute Code(s): F33.2 - Major depressive disorder, recurrent severe without psychotic features (3) PTSD (post-traumatic stress disorder): Status: Acute Code(s): F43.10 - Post-traumatic stress disorder, unspecified Certification I certify that partial hospital treatment is medically necessary due to the symptoms and problems resulting from the patient's mental illness and the failure to treat the patient at the partial hospital level of care would likely result in the patient requiring inpatient psychiatric care which could not be prevented at a less intensive level of care. Greater than 50% of the session was spent on counseling and/or coordination of care Discharge Plan Discharge Attending provider: Raffi Pozo Primary Care Provider: Laura Collins Medications: Continued levomefolate calcium [L-Methylfolate] 15 mg Tablet 15 mg PO DAILY RF: 0 quetiapine [Seroquel] 25 mg Tablet 25 mg PO BID Qty: 60 RF: 0 thiamine HCl (vitamin B1) [Vitamin B-1] 100 mg tablet 100 mg PO DAILY Qty: 30 RF: 3 lithium carbonate 300 mg Tablet Extended Release 600 mg PO BID 30 Days Qty: 60 RF: 0 quetiapine [Seroquel] 100 mg tablet 100 mg PO BEDTIME Qty: 30 RF: 1 prazosin 5 mg capsule 5 mg PO BEDTIME Qty: 30 RF: 1 dextroamphetamine-amphetamine [Adderall] 20 mg tablet 20 mg PO DAILY Qty: 30 RF: 0 lorazepam 1 mg tablet 1 mg PO BID PRN (Reason: anxiety) Qty: 60 RF: 0 desvenlafaxine succinate [Pristiq] 100 mg tablet extended release 24 hr 100 mg PO DAILY Qty: 30 RF: 1 cholecalciferol (vitamin D3) [Vitamin D3] 50 mcg (2,000 unit) capsule 50 mcg PO DAILY Qty: 30 RF: 3 mirtazapine 15 mg tablet 15 mg PO BEDTIME 30 Days Qty: 30 RF: 0 Changed dextroamphetamine-amphetamine [Adderall] 10 mg tablet 10 mg PO DAILY@1400 Qty: 30 RF: 0 Discontinued trazodone 50 mg tablet 50 mg PO BEDTIME PRN (Reason: insomnia) Qty: 30 RF: 1 Referrals: Laura Collins MD [Primary Care Provider] - 1 Week Stand Alone Forms: Patient Portal Discharge page Telehealth Telehealth Location of provider rendering services: practice address Location of patient: address on file Patient Identification confirmed using: Name, : Yes Telehealth method: video Patient verbally consented to treatment: Yes Patient verbally consented to billing insurance company: Yes Patient informed of any privacy concerns related to visit: No Time spent with patient (mins): 15
== END 2020-09-04 08:12 | disposition home or self-care (01) ==
LOC: HO.PHPA 10:00
PROVIDERS: PCP Family Medicine; Visit Provider Psychiatry & Neurology Psychiatry
DX: F33.2 Major depressive disorder, recurrent severe without psychotic features (principal); F43.10 Post-traumatic stress disorder, unspecified; F60.3 Borderline personality disorder; Z79.899 Other long term (current) drug therapy
CPT/HCPCS: 90791; 90853

== ENCOUNTER 2020-12-16 10:51 | Inpatient (IN) | payer OTHER, SELFPAY ==
[2020-12-16 11:13] VITALS: BP 137/91; PULSE 100; RESP 16; TEMP 36.1; O2SAT 96; BMI 40.3
--- NOTE | 2020-12-16 11:30 | PC.NURSE ---
Ativan and desvenlafaxine placed to medication envelope after being counted and witnessed by Yan CABALLERO. Envelope sealed with patient and sent to pharmacy with pharmacist.
[2020-12-16 12:01] LABS: UPreg QC Valid YES; Urine Pregnancy NEGATIVE (NEGATIVE)
[2020-12-16 12:10] LABS: Amphetamine Screen Urine POSITIVE (Not Detect); Barbiturates, Urine Not Detected (Not Detect); Benzodiazepines Screen Urine Not Detected (Not Detect); Cannabinoid Screen Urine POSITIVE (Not Detect); Cocaine Screen Urine Not Detected (Not Detect); Fentanyl, urine Not Detected (Not Detect); Opiate Screen Urine Not Detected (Not Detect); Phencyclidine Screen Urine Not Detected (Not Detect)
--- NOTE | 2020-12-16 12:11 | ED.PSYCH ---
HPI - Psych General Chief Complaint: Psychiatric Symptoms Stated Complaint: SI Time Seen by Provider: 12/16/20 12:11 Source: patient Mode of arrival: ambulatory Limitations: no limitations History of Present Illness HPI Narrative: 35-year-old female who is known by edd goes by the them pronouns and would prefer to be called Sandi, presents for suicidal ideation with a plan to overdose. Patient had a stillborn baby in September, and states they can still feel her baby's head in their hands and feel the baby's head against their chest. Patient has been self-harming by doing head banging. They have a history of cutting, but states they have not recently cut. Patient states she has been hospitalized lots of times, but not over the last year. No homicidal ideation, no hallucinations. Social drinker, uses marijuana, no other drug use. Patient would like inpatient. She is vaccinated for COVID. MD complaint: suicidal ideation Onset (ago): week(s) (1) Duration: constant History of same: Yes Relieving factors: none Exacerbating factors: none Context: significant life stressor Associated psychiatric symptoms: depression and suicidal ideation Associated symptoms: denies other symptoms Treatments prior to arrival: none If self harm: admits thoughts of self harm and has plan Details of plan: over dose on pills Related Data Home Medications Medication Instructions Recorded Confirmed levomefolate calcium 15 mg tablet 15 mg PO DAILY 08/07/20 08/07/20 (L-Methylfolate) acetaminophen 500 mg tablet 1,000 mg PO QID PRN 12/16/20 12/16/20 fluticasone propionate 50 1 spray INTRANASAL DAILY 12/16/20 12/16/20 mcg/actuation nasal spray,suspension prazosin 5 mg capsule 10 mg PO BEDTIME 12/16/20 12/16/20 quetiapine 25 mg tablet 75 mg PO 12/16/20 Previous Rx's Medication Instructions Recorded cholecalciferol (vitamin D3) 50 50 mcg PO DAILY #30 cap 08/18/20 mcg (2,000 unit) capsule (Vitamin D3) desvenlafaxine succinate 100 mg 100 mg PO DAILY #30 tab 08/18/20 tablet,extended release 24 hr (Pristiq) dextroamphetamine-amphetamine 10 10 mg PO DAILY@1400 #30 tab 08/18/20 mg tablet (Adderall) dextroamphetamine-amphetamine 20 20 mg PO DAILY #30 tab 08/18/20 mg tablet (Adderall) lithium carbonate 300 mg 600 mg PO BID 30 Days #60 tab 08/18/20 tablet,extended release lorazepam 1 mg tablet 1 mg PO BID PRN #60 tab 08/18/20 thiamine HCl (vitamin B1) 100 mg 100 mg PO DAILY #30 tab 08/18/20 tablet (Vitamin B-1) mirtazapine 15 mg tablet 15 mg PO BEDTIME 30 Days #30 tab 08/25/20 Allergies Allergy/AdvReac Type Severity Reaction Status Date / Time oseltamivir [From TAMIFLU] Allergy Unknown FELT LIKE Unverified 12/20/19 19:22 BUGS WERE ALL OVER ME . Sulfa (Sulfonamide Allergy Unknown HIVES Unverified 12/20/19 19:22 Antibiotics) [SULFA (SULFONAMIDE ANTIBIOTICS)] sulfamethoxazole Allergy Unknown HIVES Unverified 12/20/19 19:22 [From BACTRIM] trimethoprim [From BACTRIM] Allergy Unknown HIVES Unverified 12/20/19 19:22 Review of Systems Constitutional: Constitutional: Reports body ache(s), Denies chills, Denies fatigue, Denies fever(s), Denies headache(s), Denies malaise and Denies weakness Eyes: Eyes: Denies diplopia ENT: Denies vertigo, Denies dizziness, Denies otalgia, Denies headache(s), Denies mouth pain, Denies post nasal drip, Denies sinus pain, Denies sinus pressure, Denies sore throat and Denies throat swelling Cardiovascular: Cardiovascular: Denies chest pain, Denies syncope, Denies leg edema, Denies lightheadedness, Denies Loss of Consciousness, Denies palpitations and Denies dyspnea Respiratory: Respiratory: Denies chest congestion, Denies cough and Denies dyspnea Gastrointestinal: Gastrointestinal: Denies abdominal pain, Denies hematochezia, Denies constipation, Denies diarrhea and Denies vomiting Genitourinary: Genitourinary: Reports no additional female genitourinary complaints Musculoskeletal: Musculoskeletal: Reports myalgias Integumentary/Breasts: Skin/Breast: Denies erythema and Denies rash Neurologic: Denies confusion, Denies vertigo, Denies dizziness, Denies syncope, Denies headache(s) and Denies weakness Psychiatric: Psychiatric: Reports anxiety, Denies confusion, Reports depression, Reports hopelessness, Reports hallucinations and Reports suicidal ideation Endocrine: Endocrine: Denies fatigue and Denies palpitations Allergic/Immunologic: Allergic/Immunologic: Denies throat swelling PMFSH Past Medical History Medical History DENNISE (obstructive sleep apnea) PTSD (post-traumatic stress disorder) Recurrent major depression-severe Social History Social History Household Members: Other Household Members Other:: house mate Years Smoked: 10 Advance Directives: No Advance Directives Information Provided: No Guardian: No Patient : No Physical Exam Vital Signs: Vital Signs: Last Vital Signs Temp 97.0 F 12/16/20 11:13 Pulse 100 12/16/20 11:13 Resp 16 12/16/20 11:13 BP 137/91 H 12/16/20 11:13 Pulse Ox 96 12/16/20 11:13 Body Mass Index 40.3 Const: General: No confusion Nutritional Appearance: well nourished Orientation/consciousness: No confusion Limitations: no limitations HENMT: Head: Yes normal to inspection, Yes normocephalic and Yes atraumatic Ears: hearing grossly normal bilaterally, external ears normal, TM's normal bilaterally and EAC's normal General nose exam: Normal external nose present Face and sinus: Yes normal facial exam and Yes sinuses nontender Mouth: Normal oral and palatal mucosa present Throat: Yes posterior oropharynx normal Eyes: Conjunctivae: conjunctivae normal Pupils: Equal, round and reactive pupils present EOM: EOMs intact bilaterally Neck: Neck: Yes full ROM, Yes no lymphadenopathy and Yes supple Resp: Effort & Inspection: normal respiratory effort and able to speak in complete sentences Auscultation: clear to auscultation bilaterally, no crackles, no rales, no rhonchi and no wheezes Cardio: Rate: regular rate Rhythm: regular rhythm Heart sounds: S1 normal heart sound present and S2 normal heart sound present GI: Inspection: Yes normal to inspection Palpation (GI): Soft to palpation, nontender, no guarding and not rigid Percussion: Yes normal to percussion Auscultation: normal bowel sounds Skin: General skin exam: no rashes or lesions noted Neuro: General: No confusion Cranial nerves: Yes Equal, round and reactive pupils present Extrem: General: Yes normal to inspection and Yes full ROM Psych: Appearance: grossly normal Mental Status: mental status grossly normal Speech and movement: Normal speech and movement present Affect: Sad affect present and Depressed mood present Attitude: cooperative Thought process: Normal thought process present Thought content: Suicidality present and Depressive thoughts present Course Course Course Narrative: 35-year-old female who was on by Laura presents for suicidal ideation with a plan. Patient has history of same. Labs remarkable for positive amphetamine and marijuana. Patient is COVID negative. 5:52 pm physician observation initiated pending inpatient bed search. Care team called me, states patient is an inpatient bed search. Signed patient out to Jovana Abarca PA-C MDM - Psych Lab Data Result diagrams: 12/16/20 13:36 12/16/20 13:36 Labs: Lab Results 12/16/20 12/16/20 12/16/20 Range/Units 11:33 11:35 11:35 WBC (4.8-10.8) X10*3/uL RBC (4.20-5.50) X10*6/uL Hgb (12.0-16.0) g/dl Hct (37-47) % MCV (80-98) fL MCH (27.0-33.0) pg MCHC (31.0-35.0) g/dl RDW (11.0-16.0) % Plt Count (160-400) X10*3/uL MPV (9.4-12.3) fL Immature Gran % (Auto) (0.0-0.4) % Neut % (Auto) (45-73) % Lymph % (Auto) (20-40) % [place]bon % (Auto) (2-11) % Eos % (Auto) (0-4) % Baso % (Auto) (0-2) % Lymph # (Auto) (1.2-4.9) X10*3/uL Bour[place] # (Auto) (0.1-1.2) X10*3/uL Eos # (Auto) (0.0-0.4) X10*3/uL Baso # (Auto) (0.0-0.2) X10*3/uL Abs Immat Gran (auto) (0.00-0.03) X10*3/uL Absolute Neuts (auto) (2.0-8.3) X10*3/uL Absolute Nucleated RBC (0.0-0.012) X10*3/uL Nucleated RBC % (auto) (0.0-0.2) /100WBC Sodium (135-145) mmol/L Potassium (3.3-5.1) mmol/L Chloride (96-108) mmol/L Carbon Dioxide (22-29) mmol/L Anion Gap (12-20) BUN (9-16) mg/dL Creatinine (0.5-1.4) mg/dL Estim Creat Clear Calc Estimated GFR Random Glucose (60-115) mg/dL Calcium (8.4-10.2) mg/dL Urine Test NEGATIVE (NEGATIVE) Urine Opiates Screen Not Detected (Not Detect) Urine Fentanyl Screen Not Detected (Not Detect) Ur Barbiturates Screen Not Detected (Not Detect) Ur Phencyclidine Scrn Not Detected (Not Detect) Ur Amphetamines Screen POSITIVE H (Not Detect) U Benzodiazepines Scrn Not Detected (Not Detect) Urine Cocaine Screen Not Detected (Not Detect) U Marijuana (THC) Screen POSITIVE H (Not Detect) COVID-19 ([facility]ANK) Negative (Negative) COVID-19 Clin Com See Note 12/16/20 12/16/20 Range/Units 13:36 13:36 WBC 8.7 (4.8-10.8) X10*3/uL RBC 4.21 (4.20-5.50) X10*6/uL Hgb 12.9 (12.0-16.0) g/dl Hct 39.1 (37-47) % MCV 92.9 (80-98) fL MCH 30.6 (27.0-33.0) pg MCHC 33.0 (31.0-35.0) g/dl RDW 12.5 (11.0-16.0) % Plt Count 293 (160-400) X10*3/uL MPV 9.7 (9.4-12.3) fL Immature Gran % (Auto) 0.3 (0.0-0.4) % Neut % (Auto) 74.2 H (45-73) % Lymph % (Auto) 20.6 (20-40) % Bourbon % (Auto) 3.8 (2-11) % Eos % (Auto) 0.9 (0-4) % Baso % (Auto) 0.2 (0-2) % Lymph # (Auto) 1.8 (1.2-4.9) X10*3/uL Bourbon # (Auto) 0.3 (0.1-1.2) X10*3/uL Eos # (Auto) 0.1 (0.0-0.4) X10*3/uL Baso # (Auto) 0.0 (0.0-0.2) X10*3/uL Abs Immat Gran (auto) 0.03 (0.00-0.03) X10*3/uL Absolute Neuts (auto) 6.5 (2.0-8.3) X10*3/uL Absolute Nucleated RBC 0.000 (0.0-0.012) X10*3/uL Nucleated RBC % (auto) 0.0 (0.0-0.2) /100WBC Sodium 141 (135-145) mmol/L Potassium 4.4 (3.3-5.1) mmol/L Chloride 112 H (96-108) mmol/L Carbon Dioxide 23 (22-29) mmol/L Anion Gap 10 L (12-20) BUN 8 L (9-16) mg/dL Creatinine 0.78 (0.5-1.4) mg/dL Estim Creat Clear Calc 129.8 Estimated GFR > 60 Random Glucose 95 (60-115) mg/dL Calcium 9.4 (8.4-10.2) mg/dL Urine Test (NEGATIVE) Urine Opiates Screen (Not Detect) Urine Fentanyl Screen (Not Detect) Ur Barbiturates Screen (Not Detect) Ur Phencyclidine Scrn (Not Detect) Ur Amphetamines Screen (Not Detect) U Benzodiazepines Scrn (Not Detect) Urine Cocaine Screen (Not Detect) U Marijuana (THC) Screen (Not Detect) COVID-19 ([facility]) (Negative) COVID-19 Clin Com ECG Data Interpretation: EKG shows sinus at a rate of 75, HI interval 168, QRS 94, QTC 428, normal axis, no ST elevation or depression, no T-wave changes Discharge Plan Discharge Clinical Impression: Suicidal ideation Prescriptions: No Action levomefolate calcium [L-Methylfolate] 15 mg Tablet 15 mg PO DAILY RF: 0 dextroamphetamine-amphetamine [Adderall] 10 mg tablet 10 mg PO DAILY@1400 Qty: 30 RF: 0 thiamine HCl (vitamin B1) [Vitamin B-1] 100 mg tablet 100 mg PO DAILY Qty: 30 RF: 3 lithium carbonate 300 mg Tablet Extended Release 600 mg PO BID 30 Days Qty: 60 RF: 0 dextroamphetamine-amphetamine [Adderall] 20 mg tablet 20 mg PO DAILY Qty: 30 RF: 0 lorazepam 1 mg tablet 1 mg PO BID PRN (Reason: anxiety) Qty: 60 RF: 0 desvenlafaxine succinate [Pristiq] 100 mg tablet extended release 24 hr 100 mg PO DAILY Qty: 30 RF: 1 cholecalciferol (vitamin D3) [Vitamin D3] 50 mcg (2,000 unit) capsule 50 mcg PO DAILY Qty: 30 RF: 3 mirtazapine 15 mg tablet 15 mg PO BEDTIME 30 Days Qty: 30 RF: 0 quetiapine 25 mg tablet 75 mg PO RF: 0 acetaminophen 500 mg Tablet 1,000 mg PO QID PRN (Reason: Pain) RF: 0 fluticasone propionate [Flonase] 50 mcg/actuation [place],Suspension 1 spray INTRANASAL DAILY RF: 0 prazosin 5 mg capsule 10 mg PO BEDTIME RF: 0
[2020-12-16 12:17] LABS: COVID-19 Test Negative (Negative); IDNOW Serial# 9DD0AD1C
--- NOTE | 2020-12-16 13:18 | ECG_ITS ---
Test Reason : MED CLERANCE Blood Pressure : / mmHG Vent. Rate : 075 BPM Atrial Rate : 075 BPM P-R Int : 168 ms QRS Dur : 094 ms QT Int : 384 ms P-R-T Axes : 014 080 050 degrees QTc Int : 428 ms Normal sinus rhythm Normal ECG When compared with ECG of 22-FEB-2019 09:04, No significant change was found Referred By: Pratima Reynolds Electronically Signed By:GLENN SOUZA
[2020-12-16 13:39] LABS: MANUAL DIFF FLAG NO
[2020-12-16 13:46] LABS: Basophils Percent Auto 0.2 % (0-2); Eosinophils Absolute Auto 0.1 X10*3/uL (0.0-0.4); Eosinophils Percent Auto 0.9 % (0-4); Hematocrit 39.1 % (37-47); Hemoglobin 12.9 g/dl (12.0-16.0); Imm Gran Abs Auto 0.03 X10*3/uL (0.00-0.03); Imm Gran Pct Auto 0.3 % (0.0-0.4); Lymphocytes Absolute Auto 1.8 X10*3/uL (1.2-4.9); Lymphocytes Percent Auto 20.6 % (20-40); Mean Corpuscular Hemoglobin 30.6 pg (27.0-33.0); Mean Corpuscular Volume 92.9 fL (80-98); Mean Platelet Volume 9.7 fL (9.4-12.3); Monocytes Absolute Auto 0.3 X10*3/uL (0.1-1.2); Monocytes Percent Auto 3.8 % (2-11); Neutrophils Absolute Auto 6.5 X10*3/uL (2.0-8.3); Neutrophils Percent Auto 74.2 % (45-73); Platelet Count 293 X10*3/uL (160-400); Red Blood Count 4.21 X10*6/uL (4.20-5.50); Red Cell Distribution Width 12.5 % (11.0-16.0); White Blood Count 8.7 X10*3/uL (4.8-10.8)
[2020-12-16 14:01] LABS: Anion Gap 10 (12-20); Blood Urea Nitrogen 8 mg/dL (9-16); Calcium 9.4 mg/dL (8.4-10.2); Carbon Dioxide 23 mmol/L (22-29); Chloride 112 mmol/L (96-108); Creatinine Clr Calc Pharmacy 129.8; Estimated Glomerular Filt Rate > 60; Glucose Random 95 mg/dL (60-115); Potassium 4.4 mmol/L (3.3-5.1); Sodium 141 mmol/L (135-145)
[2020-12-16] MEDS: LORazepam 1 MG TABLET PO ×2 (15:34→21:10)
--- NOTE | 2020-12-16 18:59 | MHC.CARE ---
[facility] contact Lizy Meza [phone]
--- NOTE | 2020-12-16 20:10 | PC.NURSE ---
Patient is in her bed sitting, calm and quiet, watching TV, no distress observed/reported, pending m3 admission, will continue to monitor.
[2020-12-16] MEDS: Lithium Carbonate ER 300 MG TABLET.ER 600 MG PO (21:10)
[2020-12-16] MEDS: QUEtiapine Fumarate 25 MG TABLET PO (21:10)
--- NOTE | 2020-12-16 21:42 | PC.NURSE ---
Patient was tearful and upset learning she is not going to [facility] tonight due to acuity, requested her nighttime medication, administered as ordered, refused Vital assessment, patient stated, I don't like to be touched at this time prozosin is on hold at this point of time, will continue to monitor.
[2020-12-16 22:01] VITALS: BP 133/85; PULSE 69
[2020-12-16] MEDS: Prazosin HCL 5 MG CAPSULE 10 MG PO (22:01)
[2020-12-17 01:07] VITALS: BP 124/76; PULSE 74; RESP 18; TEMP 37.3; O2SAT 96
--- NOTE | 2020-12-17 06:17 | PC.NURSE ---
Patient slept through the night, no distress observed/reported, medication compliant, mood depressed, patient is still grieving lost of they baby, VSS, appetite good, elimination intact, behavior appropriate, alert and oriented x 4, thought process coherent, patient's disposition per care team is section 12 inpatient bed search, patient is pre-accepted to M3, will continue to monitor.
[2020-12-17 07:46] VITALS: BP 105/64; PULSE 80; TEMP 37.1; O2SAT 99
[2020-12-17] MEDS: Lithium Carbonate ER 300 MG TABLET.ER 600 MG PO ×2 (08:04→20:53)
[2020-12-17] MEDS: Cholecalciferol (Vitamin D3) 25 MCG TABLET 50 MCG PO (08:04)
[2020-12-17] MEDS: Thiamine HCL 100 MG TABLET PO (08:05)
[2020-12-17] MEDS: LORazepam 1 MG TABLET PO ×2 (08:11→20:54)
--- NOTE | 2020-12-17 10:19 | PC.NURSE ---
Report was given to RN on m3. was told awaiting orders and then patient would be transferred to unit. patient aware as well .
--- NOTE | 2020-12-17 18:28 | PC.ADMIT ---
Nursing admission note: 35 year old nonbinary person referred for admission by CARE team. DX: MDD, PTSD, BPD. Patient self presented to [facility] reporting +SI with plan to overdose on Ativan and float on [place] and drown. Patient engages easily, presents with tearful affect, intermittent eye contact. Precipitant is loss of best friends baby following . Patient reports the plan was to help friend in raising child. Patient is A+O x4, dressed in hospital attire. Cooperative with admission assessment. Speech is clear, linear and organized. Patient denies A/V hallucinations, no overt psychosis or expressed delusions. Patient reports sleep pattern is disrupted, appetite is fair. Unsure of recent weight loss. Patient reports regular use of cannabis, occasional use of alcohol. Endorses history of binge drinking in the past. Denies other drug use. Tox screen positive for cannabis. COVID negative. Patient is known to [facility], history of previous hospitalizations. History of self harming behavior including head banging , burning and cutting. Reports head banging last night in ED. Reports primary support is from mental health providers. No acute medical problems reported. Allergy to Sulfa, trimethoprim, oseltamivir and lavender. Patient oriented to unit, placed on 15 minute checks.
[2020-12-17 20:51] VITALS: BP 129/70; PULSE 70
[2020-12-17] MEDS: Prazosin HCL 5 MG CAPSULE 10 MG PO (20:51)
[2020-12-17] MEDS: QUEtiapine Fumarate 25 MG TABLET PO (20:53)
[2020-12-17] MEDS: Acetaminophen 325 MG TABLET 650 MG PO (20:53)
[2020-12-17 20:58] VITALS: BP 129/70; PULSE 70; TEMP 36.3; O2SAT 95
[2020-12-17] MEDS: traZODone HCL 50 MG TABLET PO (23:38)
[2020-12-18] MEDS: traZODone HCL 50 MG TABLET PO (01:20)
[2020-12-18 06:00] VITALS: BP 117/78; PULSE 84; RESP 18; TEMP 36.4; O2SAT 97
--- NOTE | 2020-12-18 07:42 | HE.PHANOTE ---
Reached out to the provider to see if they would like to continue the non-formulary Fetzima on the patients home medication list. If they would like to continue the medication in house, then the patients family would need to bring the medication in. Shirley Dodson, PharmD [phone]
[2020-12-18] MEDS: Cholecalciferol (Vitamin D3) 25 MCG TABLET 50 MCG PO (09:23)
[2020-12-18] MEDS: Lithium Carbonate ER 300 MG TABLET.ER 600 MG PO ×2 (09:23→21:28)
[2020-12-18] MEDS: Thiamine HCL 100 MG TABLET PO (09:23)
[2020-12-18] MEDS: LORazepam 1 MG TABLET PO ×2 (09:26→21:28)
[2020-12-18] MEDS: Acetaminophen 325 MG TABLET 650 MG PO (09:26)
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
[2020-12-18] MEDS: Amphetamine Mixed Salts 10 MG TABLET PO (15:10)
[2020-12-18] MEDS: Nicotine 14 MG PATCH.TD24 TRANSDERMA (15:16)
--- NOTE | 2020-12-18 18:24 | PC.NURSE ---
Patient continues to report +SI with plan and means. States I was looking around the unit and feeling frustrated I couldn't find anything . States level of intensity has not changed regarding suicidal thought. Reports she did not meet with MD today because it is very difficult to work with men . Tolerated fresh air break without incidence. Napped mid afternoon. No self harming behavior reported or observed.
[2020-12-18 21:27] VITALS: BP 123/79; PULSE 97
[2020-12-18] MEDS: QUEtiapine Fumarate 25 MG TABLET 75 MG PO (21:27)
[2020-12-18] MEDS: traZODone HCL 100 MG TABLET PO (21:27)
[2020-12-18] MEDS: Prazosin HCL 5 MG CAPSULE 10 MG PO (21:27)
[2020-12-18 21:33] VITALS: BP 123/79; PULSE 77; TEMP 36.5; O2SAT 96
[2020-12-19 06:00] VITALS: BP 113/66; PULSE 82; RESP 16; TEMP 36.8; O2SAT 97
[2020-12-19] MEDS: Lithium Carbonate ER 300 MG TABLET.ER 600 MG PO ×2 (08:46→21:21)
[2020-12-19] MEDS: Nicotine 14 MG PATCH.TD24 TRANSDERMA (08:46)
[2020-12-19] MEDS: Thiamine HCL 100 MG TABLET PO (08:47)
[2020-12-19] MEDS: Amphetamine Mixed Salts 20 MG TABLET PO (08:47)
[2020-12-19] MEDS: Cholecalciferol (Vitamin D3) 25 MCG TABLET 50 MCG PO (08:47)
[2020-12-19] MEDS: Fluticasone Propionate Nasal 16 GM SPRAY 1 SPRAY NOSTRIL-B (08:50)
[2020-12-19] MEDS: LORazepam 1 MG TABLET PO ×3 (08:50→21:21)
--- NOTE | 2020-12-19 12:42 | HO.PSYCHPN ---
Subjective Subjective Date of Service: 12/19/20 Reason For Visit: SI Interim History: pt states they are having a difficult time. SI continues but feels safe in hospital. c/o severe anxiety and requests an additional PRN ativan dose, which is granted. states they are just wanting to get started with celie but the uncertainty of when and the fact they are starting to feel settled down here. declines any discussion of medication changes aside from the ativan increase. per collateral from M5 provider, no transfer will occur and this law writer will remain as stretcher leveler operator helper. per staff, pt c/o anxiety of 11/11, depression of 01/11. it's horribly painful to exist. denies HI or AVH. safe on unit. spending some time in the milieu. Mental Status Exam Mental Status Exam Narrative: adequately dressed and groomed. no PMA/PMR. cooperative. speech nml in rate, decr in amount, flattened tone, incr latency. thoughts linear and logical without evidence of paranoia or delusions. affect constricted, tearful. + SI, without intent or plan on unit. no HI/AVH expressed. Diagnostics Vital Signs (24Hr): Vital Signs - 24 hr 12/18/20 21:27 12/18/20 21:33 12/19/20 06:00 Temperature 97.7 F 98.3 F Pulse Rate 97 77 82 Respiratory Rate 16 Blood Pressure 123/79 123/79 113/66 Pulse Oximetry 96 97 Body Mass Index 40.3 Labs Results: 12/16/20 13:36 12/16/20 13:36 Medications Medications Current Medications Acetaminophen (Acetaminophen 325 Mg Tablet) 650 mg PO QID PRN PRN Reason: Pain Last Admin: 12/18/20 09:26 Dose: 650 mg Documented by: Al Hydroxide/Mg Hydroxide (Magnesium Hydrox/Alum Hydrox 30 Ml Oral.Susp) 30 ml PO Q6H PRN PRN Reason: Heartburn/Nausea Amphetamine/Dextroamphetamine (Amphetamine Mixed Salts 10 Mg Tablet) 10 mg PO DAILY@1400 [facility] Last Admin: 12/18/20 15:10 Dose: 10 mg Documented by: Amphetamine/Dextroamphetamine (Amphetamine Mixed Salts 20 Mg Tablet) 20 mg PO DAILY [facility] Last Admin: 12/19/20 08:47 Dose: 20 mg Documented by: Fluticasone Propionate (Fluticasone Propionate Nasal 16 Gm [place]) 1 spray NOSTRIL-B DAILY [facility] Last Admin: 12/19/20 08:50 Dose: 1 spray Documented by: [place] Carbonate ([place] Carbonate Er 300 Mg Tablet.Er) 600 mg PO BID [facility] Last Admin: 12/19/20 08:46 Dose: 600 mg Documented by: Lorazepam (Lorazepam 1 Mg Tablet) 1 mg PO TID PRN PRN Reason: anxiety Magnesium Hydroxide (Milk Of Magnesia 30 Ml Oral.Susp) 30 ml PO DAILY PRN PRN Reason: Constipation Nicotine (Nicotine 14 Mg Patch.Td24) 14 mg TRANSDERMA DAILY [facility] Last Admin: 12/19/20 08:46 Dose: 14 mg Documented by: Patient Own Med ( Desvenlafaxine Succinate [Pristiq] 100 Mg Tablet Extended Releas 1 each PO DAILY [facility] Last Admin: 12/19/20 08:46 Dose: 1 each Documented by: Non-Formulary Medication (Levomilnacipran [Fetzima]) 1 cap PO DAILY [facility] Prazosin HCl (Prazosin Hcl 5 Mg Capsule) 10 mg PO BEDTIME [facility]; Protocol Last Admin: 12/18/20 21:27 Dose: 10 mg Documented by: Quetiapine Fumarate (Quetiapine Fumarate 25 Mg Tablet) 75 mg PO BEDTIME [facility] Last Admin: 12/18/20 21:27 Dose: 75 mg Documented by: Thiamine HCl (Thiamine Hcl 100 Mg Tablet) 100 mg PO DAILY [facility] Last Admin: 12/19/20 08:47 Dose: 100 mg Documented by: Trazodone HCl (Trazodone Hcl 100 Mg Tablet) 100 mg PO BEDTIME PRN PRN Reason: Insomnia Last Admin: 12/18/20 21:27 Dose: 100 mg Documented by: Vitamin D (Cholecalciferol (Vitamin D3) 25 Mcg Tablet) 50 mcg PO DAILY [facility] Last Admin: 12/19/20 08:47 Dose: 50 mcg Documented by: Allergies Allergies Allergy/AdvReac Type Severity Reaction Status Date / Time oseltamivir [From TAMIFLU] Allergy Unknown FELT LIKE Unverified 12/20/19 19:22 BUGS WERE ALL OVER ME . Sulfa (Sulfonamide Allergy Unknown HIVES Unverified 12/20/19 19:22 Antibiotics) [SULFA (SULFONAMIDE ANTIBIOTICS)] sulfamethoxazole Allergy Unknown HIVES Unverified 12/20/19 19:22 [From BACTRIM] trimethoprim [From BACTRIM] Allergy Unknown HIVES Unverified 12/20/19 19:22 Assessment & Plan Assessment & Plan (1) Recurrent major depression-severe: Status: Acute Code(s): F33.2 - Major depressive disorder, recurrent severe without psychotic features (2) Borderline personality disorder: Status: Acute Code(s): F60.3 - Borderline personality disorder (3) PTSD (post-traumatic stress disorder): Status: Acute Code(s): F43.10 - Post-traumatic stress disorder, unspecified (4) Suicidal ideation: Status: Acute Code(s): R45.851 - Suicidal ideations Assessment and Plan: continue home medications regimen. keep safe, Q15 min checks. support during adjustment time. Greater than 50% of the session was spent on counseling and/or coordination of care Reason for contiued inpatient stay Substantial Risk for: harm to self
[2020-12-19] MEDS: Amphetamine Mixed Salts 10 MG TABLET PO (13:37)
[2020-12-19 21:21] VITALS: BP 135/74; PULSE 79
[2020-12-19] MEDS: Prazosin HCL 5 MG CAPSULE 10 MG PO (21:21)
[2020-12-19] MEDS: traZODone HCL 100 MG TABLET PO (21:21)
[2020-12-19] MEDS: QUEtiapine Fumarate 25 MG TABLET 75 MG PO (21:21)
[2020-12-19 21:29] VITALS: TEMP 36.8; O2SAT 97
--- NOTE | 2020-12-20 08:24 | HO.PSYCHPN ---
Subjective Subjective Date of Service: 12/21/20 Reason For Visit: SI Interim History: Pt known to [facility] from OP care. Remains depressed and fragile but agrees they needs to be here. Wishes to have a female provider. No med changes. Today feels more secure . Appreciated unit is physically soothing and calming Vs M5. Pt was distressed over not having [facility] as provider. Medication Compliance: Yes Side effects from medications: No Review of Systems Medical Review of Systems: unchanged Review of Systems Constitutional: Reports body ache(s), Denies chills, Denies fatigue, Denies fever(s), Denies headache(s), Denies malaise and Denies weakness Eyes: Denies diplopia Denies vertigo, Denies dizziness, Denies otalgia, Denies headache(s), Denies mouth pain, Denies post nasal drip, Denies sinus pain, Denies sinus pressure, Denies sore throat and Denies throat swelling Cardiovascular: Denies chest pain, Denies syncope, Denies leg edema, Denies lightheadedness, Denies Loss of Consciousness, Denies palpitations and Denies dyspnea Respiratory: Denies chest congestion, Denies cough and Denies dyspnea Gastrointestinal: Denies abdominal pain, Denies hematochezia, Denies constipation, Denies diarrhea and Denies vomiting Musculoskeletal: Reports myalgias Skin/Breast: Denies erythema and Denies rash Denies confusion, Denies vertigo, Denies dizziness, Denies syncope, Denies headache(s) and Denies weakness Psychiatric: Reports anxiety, Denies confusion, Reports depression, Reports hopelessness, Reports hallucinations and Reports suicidal ideation Endocrine: Denies fatigue and Denies palpitations Allergic/Immunologic: Denies throat swelling Mental Status Exam Mental Status Exam Narrative: adequately dressed and groomed. no PMA/PMR. cooperative. speech nml in rate, decr in amount, flattened tone, incr latency. thoughts linear and logical without evidence of paranoia or delusions. affect constricted, tearful. + SI, without intent or plan on unit. no HI/AVH expressed. Diagnostics Vital Signs (24Hr): Vital Signs - 24 hr 12/19/20 21:21 12/19/20 21:29 Temperature 98.3 F Pulse Rate 79 Blood Pressure 135/74 Pulse Oximetry 97 Body Mass Index 40.3 Labs Results: 12/16/20 13:36 12/16/20 13:36 Medications Medications Current Medications Acetaminophen (Acetaminophen 325 Mg Tablet) 650 mg PO QID PRN PRN Reason: Pain Last Admin: 12/18/20 09:26 Dose: 650 mg Documented by: Al Hydroxide/Mg Hydroxide (Magnesium Hydrox/Alum Hydrox 30 Ml Oral.Susp) 30 ml PO Q6H PRN PRN Reason: Heartburn/Nausea Amphetamine/Dextroamphetamine (Amphetamine Mixed Salts 10 Mg Tablet) 10 mg PO DAILY@1400 [facility] Last Admin: 12/19/20 13:37 Dose: 10 mg Documented by: Amphetamine/Dextroamphetamine (Amphetamine Mixed Salts 20 Mg Tablet) 20 mg PO DAILY [facility] Last Admin: 12/19/20 08:47 Dose: 20 mg Documented by: Fluticasone Propionate (Fluticasone Propionate Nasal 16 Gm [place]) 1 spray NOSTRIL-B DAILY [facility] Last Admin: 12/19/20 08:50 Dose: 1 spray Documented by: [place] Carbonate ([place] Carbonate Er 300 Mg Tablet.Er) 600 mg PO BID [facility] Last Admin: 12/19/20 21:21 Dose: 600 mg Documented by: Lorazepam (Lorazepam 1 Mg Tablet) 1 mg PO TID PRN PRN Reason: anxiety Last Admin: 12/19/20 21:21 Dose: 1 mg Documented by: Magnesium Hydroxide (Milk Of Magnesia 30 Ml Oral.Susp) 30 ml PO DAILY PRN PRN Reason: Constipation Nicotine (Nicotine 14 Mg Patch.Td24) 14 mg TRANSDERMA DAILY [facility] Last Admin: 12/19/20 08:46 Dose: 14 mg Documented by: Patient Own Med ( Desvenlafaxine Succinate [Pristiq] 100 Mg Tablet Extended Releas 1 each PO DAILY [facility] Last Admin: 12/19/20 08:46 Dose: 1 each Documented by: Non-Formulary Medication (Levomilnacipran [Fetzima]) 1 cap PO DAILY [facility] Prazosin HCl (Prazosin Hcl 5 Mg Capsule) 10 mg PO BEDTIME [facility]; Protocol Last Admin: 12/19/20 21:21 Dose: 10 mg Documented by: Quetiapine Fumarate (Quetiapine Fumarate 25 Mg Tablet) 75 mg PO BEDTIME [facility] Last Admin: 12/19/20 21:21 Dose: 75 mg Documented by: Thiamine HCl (Thiamine Hcl 100 Mg Tablet) 100 mg PO DAILY [facility] Last Admin: 12/19/20 08:47 Dose: 100 mg Documented by: Trazodone HCl (Trazodone Hcl 100 Mg Tablet) 100 mg PO BEDTIME PRN PRN Reason: Insomnia Last Admin: 12/19/20 21:21 Dose: 100 mg Documented by: Vitamin D (Cholecalciferol (Vitamin D3) 25 Mcg Tablet) 50 mcg PO DAILY [facility] Last Admin: 12/19/20 08:47 Dose: 50 mcg Documented by: Allergies Allergies Allergy/AdvReac Type Severity Reaction Status Date / Time oseltamivir [From TAMIFLU] Allergy Unknown FELT LIKE Unverified 12/20/19 19:22 BUGS WERE ALL OVER ME . Sulfa (Sulfonamide Allergy Unknown HIVES Unverified 12/20/19 19:22 Antibiotics) [SULFA (SULFONAMIDE ANTIBIOTICS)] sulfamethoxazole Allergy Unknown HIVES Unverified 12/20/19 19:22 [From BACTRIM] trimethoprim [From BACTRIM] Allergy Unknown HIVES Unverified 12/20/19 19:22 Assessment & Plan Assessment & Plan (1) Recurrent major depression-severe: Status: Acute Code(s): F33.2 - Major depressive disorder, recurrent severe without psychotic features (2) Borderline personality disorder: Status: Acute Code(s): F60.3 - Borderline personality disorder (3) PTSD (post-traumatic stress disorder): Status: Acute Code(s): F43.10 - Post-traumatic stress disorder, unspecified (4) Suicidal ideation: Status: Acute Code(s): R45.851 - Suicidal ideations Assessment and Plan: continue home medications regimen. keep safe, Q15 min checks. support during adjustment time. Greater than 50% of the session was spent on counseling and/or coordination of care Reason for contiued inpatient stay Substantial Risk for: harm to self
[2020-12-20 10:00] VITALS: BP 136/74; PULSE 97; RESP 18; TEMP 36.7; O2SAT 98
[2020-12-20] MEDS: Lithium Carbonate ER 300 MG TABLET.ER 600 MG PO ×2 (10:03→22:14)
[2020-12-20] MEDS: Thiamine HCL 100 MG TABLET PO (10:03)
[2020-12-20] MEDS: Cholecalciferol (Vitamin D3) 25 MCG TABLET 50 MCG PO (10:04)
[2020-12-20] MEDS: Nicotine 14 MG PATCH.TD24 TRANSDERMA (10:04)
[2020-12-20] MEDS: LORazepam 1 MG TABLET PO ×3 (10:04→22:13)
[2020-12-20] MEDS: Amphetamine Mixed Salts 20 MG TABLET PO (10:04)
[2020-12-20] MEDS: Fluticasone Propionate Nasal 16 GM SPRAY 1 SPRAY NOSTRIL-B (10:05)
[2020-12-20] MEDS: Amphetamine Mixed Salts 10 MG TABLET PO (15:33)
[2020-12-20] MEDS: hydrOXYzine HCL 25 MG TABLET PO (18:28)
[2020-12-20 21:58] VITALS: TEMP 36.7; O2SAT 97
[2020-12-20 22:14] VITALS: BP 142/76; PULSE 100
[2020-12-20] MEDS: QUEtiapine Fumarate 25 MG TABLET 75 MG PO (22:14)
[2020-12-20] MEDS: Acetaminophen 325 MG TABLET 650 MG PO (22:14)
[2020-12-20] MEDS: traZODone HCL 100 MG TABLET PO (22:14)
[2020-12-20] MEDS: Prazosin HCL 5 MG CAPSULE 10 MG PO (22:14)
[2020-12-21 07:50] VITALS: BP 127/79; PULSE 80; RESP 18; TEMP 36.4; O2SAT 96
--- NOTE | 2020-12-21 08:07 | P.PNPSI_ITS ---
Subjective Subjective Date of Service: 12/21/20 Reason For Visit: SI Interim History: 12/20: Pt known to [facility] from OP care. Remains depressed and fragile but agrees they needs to be here. Wishes to have a female provider. No med changes. Today feels more secure . Appreciated unit is physically soothing and calming Vs M5. Pt was distressed over not having CAW as provider. 12/21: Mood better. Visible in milieu. Last 24 hours were better. Anxious about tomorrow and provider assignment Medication Compliance: Yes Side effects from medications: No Review of Systems Constitutional: Reports body ache(s), Denies chills, Denies fatigue, Denies fever(s), Denies headache(s), Denies malaise and Denies weakness Eyes: Denies diplopia Denies vertigo, Denies dizziness, Denies otalgia, Denies headache(s), Denies mouth pain, Denies post nasal drip, Denies sinus pain, Denies sinus pressure, Denies sore throat and Denies throat swelling Cardiovascular: Denies chest pain, Denies syncope, Denies leg edema, Denies lightheadedness, Denies Loss of Consciousness, Denies palpitations and Denies dyspnea Respiratory: Denies chest congestion, Denies cough and Denies dyspnea Gastrointestinal: Denies abdominal pain, Denies hematochezia, Denies constipation, Denies diarrhea and Denies vomiting Musculoskeletal: Reports myalgias Skin/Breast: Denies erythema and Denies rash Denies confusion, Denies vertigo, Denies dizziness, Denies syncope, Denies head ache(s) and Denies weakness Psychiatric: Reports anxiety, Denies confusion, Reports depression, Reports hopelessness, Reports hallucinations and Reports suicidal ideation Endocrine: Denies fatigue and Denies palpitations Allergic/Immunologic: Denies throat swelling Mental Status Exam Mental Status Exam Narrative: adequately dressed and groomed. no PMA/PMR. cooperative. speech nml in rate, decr in amount, flattened tone, incr latency. thoughts linear and logical without evidence of paranoia or delusions. affect constricted, tearful. + SI, without intent or plan on unit. no HI/AVH expressed. Diagnostics Vital Signs (24Hr): Vital Signs - 24 hr 12/20/20 10:00 12/20/20 21:58 12/20/20 22:14 Temperature 98.1 F 98.0 F Pulse Rate 97 100 Respiratory Rate 18 Blood Pressure 136/74 142/76 H Pulse Oximetry 98 97 Body Mass Index 40.3 Labs Results: 12/16/20 13:36 12/16/20 13:36 Medications Medications Current Medications Acetaminophen (Acetaminophen 325 Mg Tablet) 650 mg PO QID PRN PRN Reason: Pain Last Admin: 12/20/20 22:14 Dose: 650 mg Documented by: Al Hydroxide/Mg Hydroxide (Magnesium Hydrox/Alum Hydrox 30 Ml Oral.Susp) 30 ml PO Q6H PRN PRN Reason: Heartburn/Nausea Amphetamine/Dextroamphetamine (Amphetamine Mixed Salts 10 Mg Tablet) 10 mg PO DAILY@1400 [facility] Last Admin: 12/20/20 15:33 Dose: 10 mg Documented by: Amphetamine/Dextroamphetamine (Amphetamine Mixed Salts 20 Mg Tablet) 20 mg PO DAILY [facility] Last Admin: 12/20/20 10:04 Dose: 20 mg Documented by: Fluticasone Propionate (Fluticasone Propionate Nasal 16 Gm [place]) 1 spray NOSTRIL-B DAILY [facility] Last Admin: 12/20/20 10:05 Dose: 1 spray Documented by: Hydroxyzine HCl (Hydroxyzine Hcl 25 Mg Tablet) 25 mg PO Q6H PRN PRN Reason: Anxiety Last Admin: 12/20/20 18:28 Dose: 25 mg Documented by: [place] Carbonate ([place] Carbonate Er 300 Mg Tablet.Er) 600 mg PO BID [facility] Last Admin: 12/20/20 22:14 Dose: 600 mg Documented by: Lorazepam (Lorazepam 1 Mg Tablet) 1 mg PO TID PRN PRN Reason: anxiety Last Admin: 12/20/20 22:13 Dose: 1 mg Documented by: Magnesium Hydroxide (Milk Of Magnesia 30 Ml Oral.Susp) 30 ml PO DAILY PRN PRN Reason: Constipation Nicotine (Nicotine 14 Mg Patch.Td24) 14 mg TRANSDERMA DAILY [facility] Last Admin: 12/20/20 10:04 Dose: 14 mg Documented by: Patient Own Med ( Desvenlafaxine Succinate [Pristiq] 100 Mg Tablet Extended Releas 1 each PO DAILY [facility] Last Admin: 12/20/20 10:05 Dose: 1 each Documented by: Non-Formulary Medication (Levomilnacipran [Fetzima]) 1 cap PO DAILY [facility] Prazosin HCl (Prazosin Hcl 5 Mg Capsule) 10 mg PO BEDTIME [facility]; Protocol Last Admin: 12/20/20 22:14 Dose: 10 mg Documented by: Quetiapine Fumarate (Quetiapine Fumarate 25 Mg Tablet) 75 mg PO BEDTIME [facility] Last Admin: 12/20/20 22:14 Dose: 75 mg Documented by: Thiamine HCl (Thiamine Hcl 100 Mg Tablet) 100 mg PO DAILY [facility] Last Admin: 12/20/20 10:03 Dose: 100 mg Documented by: Trazodone HCl (Trazodone Hcl 100 Mg Tablet) 100 mg PO BEDTIME PRN PRN Reason: Insomnia Last Admin: 12/20/20 22:14 Dose: 100 mg Documented by: Vitamin D (Cholecalciferol (Vitamin D3) 25 Mcg Tablet) 50 mcg PO DAILY [facility] Last Admin: 12/20/20 10:04 Dose: 50 mcg Documented by: Allergies Allergies Allergy/AdvReac Type Severity Reaction Status Date / Time oseltamivir [From TAMIFLU] Allergy Unknown FELT LIKE Unverified 12/20/19 19:22 BUGS WERE ALL OVER ME . Sulfa (Sulfonamide Allergy Unknown HIVES Unverified 12/20/19 19:22 Antibiotics) [SULFA (SULFONAMIDE ANTIBIOTICS)] sulfamethoxazole Allergy Unknown HIVES Unverified 12/20/19 19:22 [From BACTRIM] trimethoprim [From BACTRIM] Allergy Unknown HIVES Unverified 12/20/19 19:22 Assessment & Plan Assessment & Plan (1) Recurrent major depression-severe: Status: Acute Code(s): F33.2 - Major depressive disorder, recurrent severe without psychotic features (2) Borderline personality disorder: Status: Acute Code(s): F60.3 - Borderline personality disorder (3) PTSD (post-traumatic stress disorder): Status: Acute Code(s): F43.10 - Post-traumatic stress disorder, unspecified (4) Suicidal ideation: Status: Acute Code(s): R45.851 - Suicidal ideations Assessment and Plan: continue home medications regimen. keep safe, Q15 min checks. support during adjustment time. Greater than 50% of the session was spent on counseling and/or coordination of care Reason for contiued inpatient stay Substantial Risk for: harm to self
[2020-12-21] MEDS: Lithium Carbonate ER 300 MG TABLET.ER 600 MG PO ×2 (08:19→22:11)
[2020-12-21] MEDS: Nicotine 14 MG PATCH.TD24 TRANSDERMA (08:19)
[2020-12-21] MEDS: Cholecalciferol (Vitamin D3) 25 MCG TABLET 50 MCG PO (08:19)
[2020-12-21] MEDS: Thiamine HCL 100 MG TABLET PO (08:19)
[2020-12-21] MEDS: Amphetamine Mixed Salts 20 MG TABLET PO (08:19)
[2020-12-21] MEDS: LORazepam 1 MG TABLET PO ×3 (08:19→22:12)
[2020-12-21] MEDS: Fluticasone Propionate Nasal 16 GM SPRAY 1 SPRAY NOSTRIL-B (09:49)
[2020-12-21 22:10] VITALS: BP 131/74; PULSE 78
[2020-12-21] MEDS: Prazosin HCL 5 MG CAPSULE 10 MG PO (22:10)
[2020-12-21] MEDS: QUEtiapine Fumarate 25 MG TABLET 75 MG PO (22:11)
[2020-12-21] MEDS: traZODone HCL 100 MG TABLET PO (22:11)
[2020-12-21 22:14] VITALS: BP 131/74; PULSE 78; RESP 18; TEMP 36.6; O2SAT 95
[2020-12-22 06:00] VITALS: BP 125/68; PULSE 89; RESP 20; TEMP 36.3; O2SAT 97
[2020-12-22] MEDS: Amphetamine Mixed Salts 20 MG TABLET PO (08:51)
[2020-12-22] MEDS: Fluticasone Propionate Nasal 16 GM SPRAY 1 SPRAY NOSTRIL-B (08:51)
[2020-12-22] MEDS: Nicotine 14 MG PATCH.TD24 TRANSDERMA (08:51)
[2020-12-22] MEDS: Thiamine HCL 100 MG TABLET PO (08:51)
[2020-12-22] MEDS: Cholecalciferol (Vitamin D3) 25 MCG TABLET 50 MCG PO (08:51)
[2020-12-22] MEDS: Lithium Carbonate ER 300 MG TABLET.ER 600 MG PO ×2 (09:35→22:04)
[2020-12-22] MEDS: LORazepam 1 MG TABLET PO ×3 (09:35→22:04)
--- NOTE | 2020-12-22 14:37 | P.PNPSI_ITS ---
Subjective Subjective Date of Service: 12/22/20 Reason For Visit: SI Interim History: pt declined to meet with MD, barely turning to look at this writer editor. they sat at their desk shaking their head saying, no, thank you, repeatedly. per staff, calm, cooperative, pleasant. good visit with mother. social. some anxiety from all the noise on the unit. took ativan PRNs x2. comfortable on M3 now. denies AH/SI/HI. Mental Status Exam Mental Status Exam Narrative: dressed in street clothes, adequately groomed. no PMA/PMR. not cooperative. speech nml in rate, decr in amount, nml tone, decr latency. thoughts unable to assess - could be anywhere from perseverative to linear and logical. affect constricted. no SI/HI/AVH expressed. Diagnostics Vital Signs (24Hr): Vital Signs - 24 hr 12/21/20 22:10 12/21/20 22:14 12/22/20 06:00 Temperature 98 F 97.4 F Pulse Rate 78 78 89 Respiratory Rate 18 20 Blood Pressure 131/74 131/74 125/68 Pulse Oximetry 95 97 Body Mass Index 40.3 Labs Results: 12/16/20 13:36 12/16/20 13:36 Medications Medications Current Medications Acetaminophen (Acetaminophen 325 Mg Tablet) 650 mg PO QID PRN PRN Reason: Pain Last Admin: 12/20/20 22:14 Dose: 650 mg Documented by: Al Hydroxide/Mg Hydroxide (Magnesium Hydrox/Alum Hydrox 30 Ml Oral.Susp) 30 ml PO Q6H PRN PRN Reason: Heartburn/Nausea Amphetamine/Dextroamphetamine (Amphetamine Mixed Salts 10 Mg Tablet) 10 mg PO DAILY@1400 [facility] Last Admin: 12/21/20 15:20 Dose: Not Given Documented by: Amphetamine/Dextroamphetamine (Amphetamine Mixed Salts 20 Mg Tablet) 20 mg PO DAILY [facility] Last Admin: 12/22/20 08:51 Dose: 20 mg Documented by: Fluticasone Propionate (Fluticasone Propionate Nasal 16 Gm [place]) 1 spray NOSTRIL-B DAILY [facility] Last Admin: 12/22/20 08:51 Dose: 1 spray Documented by: Hydroxyzine HCl (Hydroxyzine Hcl 25 Mg Tablet) 25 mg PO Q6H PRN PRN Reason: Anxiety Last Admin: 12/20/20 18:28 Dose: 25 mg Documented by: [place] Carbonate ([place] Carbonate Er 300 Mg Tablet.Er) 600 mg PO BID [facility] Last Admin: 12/22/20 09:35 Dose: 600 mg Documented by: Lorazepam (Lorazepam 1 Mg Tablet) 1 mg PO TID PRN PRN Reason: anxiety Last Admin: 12/22/20 09:35 Dose: 1 mg Documented by: Magnesium Hydroxide (Milk Of Magnesia 30 Ml Oral.Susp) 30 ml PO DAILY PRN PRN Reason: Constipation Nicotine (Nicotine 14 Mg Patch.Td24) 14 mg TRANSDERMA DAILY [facility] Last Admin: 12/22/20 08:51 Dose: 14 mg Documented by: Patient Own Med ( Desvenlafaxine Succinate [Pristiq] 100 Mg Tablet Extended Releas 1 each PO DAILY [facility] Last Admin: 12/22/20 08:51 Dose: 1 each Documented by: Prazosin HCl (Prazosin Hcl 5 Mg Capsule) 10 mg PO BEDTIME [facility]; Protocol Last Admin: 12/21/20 22:10 Dose: 10 mg Documented by: Quetiapine Fumarate (Quetiapine Fumarate 25 Mg Tablet) 75 mg PO BEDTIME [facility] Last Admin: 12/21/20 22:11 Dose: 75 mg Documented by: Thiamine HCl (Thiamine Hcl 100 Mg Tablet) 100 mg PO DAILY [facility] Last Admin: 12/22/20 08:51 Dose: 100 mg Documented by: Trazodone HCl (Trazodone Hcl 100 Mg Tablet) 100 mg PO BEDTIME PRN PRN Reason: Insomnia Last Admin: 12/21/20 22:11 Dose: 100 mg Documented by: Vitamin D (Cholecalciferol (Vitamin D3) 25 Mcg Tablet) 50 mcg PO DAILY [facility] Last Admin: 12/22/20 08:51 Dose: 50 mcg Documented by: Allergies Allergies Allergy/AdvReac Type Severity Reaction Status Date / Time oseltamivir [From TAMIFLU] Allergy Unknown FELT LIKE Unverified 12/20/19 19:22 BUGS WERE ALL OVER ME . Sulfa (Sulfonamide Allergy Unknown HIVES Unverified 12/20/19 19:22 Antibiotics) [SULFA (SULFONAMIDE ANTIBIOTICS)] sulfamethoxazole Allergy Unknown HIVES Unverified 12/20/19 19:22 [From BACTRIM] trimethoprim [From BACTRIM] Allergy Unknown HIVES Unverified 12/20/19 19:22 Assessment & Plan Assessment & Plan (1) Recurrent major depression-severe: Status: Acute Code(s): F33.2 - Major depressive disorder, recurrent severe without psychotic features (2) Borderline personality disorder: Status: Acute Code(s): F60.3 - Borderline personality disorder (3) PTSD (post-traumatic stress disorder): Status: Acute Code(s): F43.10 - Post-traumatic stress disorder, unspecified (4) Suicidal ideation: Status: Acute Code(s): R45.851 - Suicidal ideations Assessment and Plan: continue home medications regimen. keep safe, Q15 min checks. support during adjustment time. tentatively discharge weds. Greater than 50% of the session was spent on counseling and/or coordination of care Reason for contiued inpatient stay Substantial Risk for: harm to self
[2020-12-22] MEDS: hydrOXYzine HCL 25 MG TABLET PO (18:51)
[2020-12-22 22:03] VITALS: BP 132/88; PULSE 91
[2020-12-22] MEDS: Acetaminophen 325 MG TABLET 650 MG PO (22:03)
[2020-12-22] MEDS: Prazosin HCL 5 MG CAPSULE 10 MG PO (22:03)
[2020-12-22] MEDS: QUEtiapine Fumarate 25 MG TABLET 75 MG PO (22:03)
[2020-12-22] MEDS: traZODone HCL 100 MG TABLET PO (22:04)
[2020-12-22 22:05] VITALS: BP 132/88; PULSE 91; RESP 18; TEMP 36.7; O2SAT 95
[2020-12-23 06:00] VITALS: BP 129/86; PULSE 83; RESP 20; TEMP 36.7; O2SAT 96
[2020-12-23] MEDS: LORazepam 1 MG TABLET PO ×3 (08:09→22:07)
[2020-12-23] MEDS: Lithium Carbonate ER 300 MG TABLET.ER 600 MG PO ×2 (08:09→21:57)
[2020-12-23] MEDS: Cholecalciferol (Vitamin D3) 25 MCG TABLET 50 MCG PO (08:09)
[2020-12-23] MEDS: Nicotine 14 MG PATCH.TD24 TRANSDERMA (08:09)
[2020-12-23] MEDS: Thiamine HCL 100 MG TABLET PO (08:09)
[2020-12-23] MEDS: Amphetamine Mixed Salts 20 MG TABLET PO (08:09)
[2020-12-23] MEDS: Fluticasone Propionate Nasal 16 GM SPRAY 1 SPRAY NOSTRIL-B (08:53)
--- NOTE | 2020-12-23 14:33 | HO.PSYCHPN ---
Subjective Subjective Date of Service: 12/23/20 Reason For Visit: SI Interim History: MD located pt in group room as patients and staff were setting up for a group. MD hailed them and said hello. they said no, thank you, and shook their head and laughed. MD asked if they would be more comfortable with mc SW also attended. they agreed. mc came and brought pt to interview room, where a three-way meeting took place. pt expressed their frustration and anger about being misled about who would be their farm machinery engine mechanic - first nidhi, then they expected sheryl. they have been very opposed to having a male farm machinery engine mechanic. they use some episode of poor experience with dr. lema by way of explanation. through the course of the session it is decided that mc will function as pt's entry level sales associate and will meet with them regularly and this financial writer will not attempt to meet with them regularly. should they wish to discuss medications or discharge, they will contact mc who will involve me. this appeared to be a situation which was deemed mutually agreeable to all. they are currently not interested in medication changes. per staff, pt c/o anxiety 2/2 having male MD. some brief head banging today, watching TV in group room a lot. had a bad day yesterday, lots of anxiety and stress. tearful this morning. a peer had told them i'm going to kill your mom if you kill yourself. Mental Status Exam Mental Status Exam Narrative: adequately dressed and groomed. no PMA/PMR. cooperative. speech nml in rate, incr in amount, nml tone, decr latency. thoughts linear and logical without evidence of paranoia or delusions. affect constricted, tearful. + SI, with plan. no HI/AVH expressed. Diagnostics Vital Signs (24Hr): Vital Signs - 24 hr 12/22/20 22:03 12/22/20 22:05 12/23/20 06:00 Temperature 98.1 F 98.0 F Pulse Rate 91 91 83 Respiratory Rate 18 20 Blood Pressure 132/88 132/88 129/86 Pulse Oximetry 95 96 Body Mass Index 40.3 Labs Results: 12/16/20 13:36 12/16/20 13:36 Medications Medications Current Medications Acetaminophen (Acetaminophen 325 Mg Tablet) 650 mg PO QID PRN PRN Reason: Pain Last Admin: 12/22/20 22:03 Dose: 650 mg Documented by: Al Hydroxide/Mg Hydroxide (Magnesium Hydrox/Alum Hydrox 30 Ml Oral.Susp) 30 ml PO Q6H PRN PRN Reason: Heartburn/Nausea Amphetamine/Dextroamphetamine (Amphetamine Mixed Salts 10 Mg Tablet) 10 mg PO DAILY@1400 [facility] Last Admin: 12/22/20 15:27 Dose: Not Given Documented by: Amphetamine/Dextroamphetamine (Amphetamine Mixed Salts 20 Mg Tablet) 20 mg PO DAILY [facility] Last Admin: 12/23/20 08:09 Dose: 20 mg Documented by: Fluticasone Propionate (Fluticasone Propionate Nasal 16 Gm [place]) 1 spray NOSTRIL-B DAILY [facility] Last Admin: 12/23/20 08:53 Dose: 1 spray Documented by: Hydroxyzine HCl (Hydroxyzine Hcl 25 Mg Tablet) 25 mg PO Q6H PRN PRN Reason: Anxiety Last Admin: 12/22/20 18:51 Dose: 25 mg Documented by: [place] Carbonate ([place] Carbonate Er 300 Mg Tablet.Er) 600 mg PO BID [facility] Last Admin: 12/23/20 08:09 Dose: 600 mg Documented by: Lorazepam (Lorazepam 1 Mg Tablet) 1 mg PO TID PRN PRN Reason: anxiety Last Admin: 12/23/20 08:09 Dose: 1 mg Documented by: Magnesium Hydroxide (Milk Of Magnesia 30 Ml Oral.Susp) 30 ml PO DAILY PRN PRN Reason: Constipation Nicotine (Nicotine 14 Mg Patch.Td24) 14 mg TRANSDERMA DAILY [facility] Last Admin: 12/23/20 08:09 Dose: 14 mg Documented by: Patient Own Med ( Desvenlafaxine Succinate [Pristiq] 100 Mg Tablet Extended Releas 1 each PO DAILY [facility] Last Admin: 12/23/20 08:53 Dose: 1 each Documented by: Prazosin HCl (Prazosin Hcl 5 Mg Capsule) 10 mg PO BEDTIME [facility]; Protocol Last Admin: 12/22/20 22:03 Dose: 10 mg Documented by: Quetiapine Fumarate (Quetiapine Fumarate 25 Mg Tablet) 75 mg PO BEDTIME [facility] Last Admin: 12/22/20 22:03 Dose: 75 mg Documented by: Thiamine HCl (Thiamine Hcl 100 Mg Tablet) 100 mg PO DAILY [facility] Last Admin: 12/23/20 08:09 Dose: 100 mg Documented by: Trazodone HCl (Trazodone Hcl 100 Mg Tablet) 100 mg PO BEDTIME PRN PRN Reason: Insomnia Last Admin: 12/22/20 22:04 Dose: 100 mg Documented by: Vitamin D (Cholecalciferol (Vitamin D3) 25 Mcg Tablet) 50 mcg PO DAILY [facility] Last Admin: 12/23/20 08:09 Dose: 50 mcg Documented by: Allergies Allergies Allergy/AdvReac Type Severity Reaction Status Date / Time oseltamivir [From TAMIFLU] Allergy Unknown FELT LIKE Unverified 12/20/19 19:22 BUGS WERE ALL OVER ME . Sulfa (Sulfonamide Allergy Unknown HIVES Unverified 12/20/19 19:22 Antibiotics) [SULFA (SULFONAMIDE ANTIBIOTICS)] sulfamethoxazole Allergy Unknown HIVES Unverified 12/20/19 19:22 [From BACTRIM] trimethoprim [From BACTRIM] Allergy Unknown HIVES Unverified 12/20/19 19:22 Assessment & Plan Assessment & Plan (1) Recurrent major depression-severe: Status: Acute Code(s): F33.2 - Major depressive disorder, recurrent severe without psychotic features (2) Borderline personality disorder: Status: Acute Code(s): F60.3 - Borderline personality disorder (3) PTSD (post-traumatic stress disorder): Status: Acute Code(s): F43.10 - Post-traumatic stress disorder, unspecified (4) Suicidal ideation: Status: Acute Code(s): R45.851 - Suicidal ideations Assessment and Plan: continue home medications regimen. keep safe, Q15 min checks. support during adjustment time. discharge TBD. Greater than 50% of the session was spent on counseling and/or coordination of care Reason for contiued inpatient stay Substantial Risk for: harm to self
[2020-12-23] MEDS: Amphetamine Mixed Salts 10 MG TABLET PO (14:40)
[2020-12-23 21:50] VITALS: BP 129/76; PULSE 81
[2020-12-23] MEDS: Prazosin HCL 5 MG CAPSULE 10 MG PO (21:50)
[2020-12-23] MEDS: QUEtiapine Fumarate 25 MG TABLET 75 MG PO (21:57)
[2020-12-23] MEDS: Acetaminophen 325 MG TABLET 650 MG PO (22:06)
[2020-12-23] MEDS: traZODone HCL 100 MG TABLET PO (22:07)
[2020-12-23] MEDS: hydrOXYzine HCL 25 MG TABLET PO (23:56)
[2020-12-24 06:00] VITALS: BP 153/67; PULSE 82; RESP 20; TEMP 36.7; O2SAT 98
[2020-12-24] MEDS: Thiamine HCL 100 MG TABLET PO (08:39)
[2020-12-24] MEDS: Cholecalciferol (Vitamin D3) 25 MCG TABLET 50 MCG PO (08:39)
[2020-12-24] MEDS: Lithium Carbonate ER 300 MG TABLET.ER 600 MG PO ×2 (08:40→20:21)
[2020-12-24] MEDS: Amphetamine Mixed Salts 20 MG TABLET PO (08:40)
[2020-12-24] MEDS: Fluticasone Propionate Nasal 16 GM SPRAY 1 SPRAY NOSTRIL-B (08:40)
[2020-12-24] MEDS: LORazepam 1 MG TABLET PO ×2 (12:04→20:21)
--- NOTE | 2020-12-24 14:40 | HO.PSYCHPN ---
Subjective Subjective Date of Service: 12/24/20 Reason For Visit: SI Interim History: MD heard from nursing staff and gordon ESPINOSA regarding this patient today. per RN, pt approached her and gave her a number of pills, stating they had been cheeking the pills over the past couple of days. patient was placed on CO for safety after that revelation. per discussion with gordon ESPINOSA, pt has been feeling they have been wanting to end their life and had considered overdosing in the hospital. they came to the conclusion that it would be an unsuccessful endeavor and so handed over the pills. they also had the realization that not taking seroquel (one of the medications they had been saving) was leading to worsening of clinical condition. pt is having a difficult time feeling like their time on the unit is able to be productive due to unit acuity. will continue to meet with FRANCISCA leyva for check-ins and attend groups/engage in milieu therapy. Mental Status Exam Mental Status Exam Narrative: per collateral from FRANCISCA leyva, SI continues without intent in hospital. Diagnostics Vital Signs (24Hr): Vital Signs - 24 hr 12/23/20 21:50 Pulse Rate 81 Blood Pressure 129/76 Body Mass Index 40.3 Labs Results: 12/16/20 13:36 12/16/20 13:36 Medications Medications Current Medications Acetaminophen (Acetaminophen 325 Mg Tablet) 650 mg PO QID PRN PRN Reason: Pain Last Admin: 12/23/20 22:06 Dose: 650 mg Documented by: Al Hydroxide/Mg Hydroxide (Magnesium Hydrox/Alum Hydrox 30 Ml Oral.Susp) 30 ml PO Q6H PRN PRN Reason: Heartburn/Nausea Amphetamine/Dextroamphetamine (Amphetamine Mixed Salts 10 Mg Tablet) 10 mg PO DAILY@1400 [facility] Last Admin: 12/23/20 14:40 Dose: 10 mg Documented by: Amphetamine/Dextroamphetamine (Amphetamine Mixed Salts 20 Mg Tablet) 20 mg PO DAILY [facility] Last Admin: 12/24/20 08:40 Dose: 20 mg Documented by: Fluticasone Propionate (Fluticasone Propionate Nasal 16 Gm [place]) 1 spray NOSTRIL-B DAILY [facility] Last Admin: 12/24/20 08:40 Dose: 1 spray Documented by: Hydroxyzine HCl (Hydroxyzine Hcl 25 Mg Tablet) 25 mg PO Q6H PRN PRN Reason: Anxiety Last Admin: 09/21/21 23:56 Dose: 25 mg Documented by: [place] Carbonate ([place] Carbonate Er 300 Mg Tablet.Er) 600 mg PO BID [facility] Last Admin: 12/24/20 08:40 Dose: 600 mg Documented by: Lorazepam (Lorazepam 1 Mg Tablet) 1 mg PO TID PRN PRN Reason: Anxiety Last Admin: 12/24/20 12:04 Dose: 1 mg Documented by: Magnesium Hydroxide (Milk Of Magnesia 30 Ml Oral.Susp) 30 ml PO DAILY PRN PRN Reason: Constipation Nicotine (Nicotine 14 Mg Patch.Td24) 14 mg TRANSDERMA DAILY [facility] Last Admin: 12/24/20 12:04 Dose: Not Given Documented by: Patient Own Med ( Desvenlafaxine Succinate [Pristiq] 100 Mg Tablet Extended Releas 1 each PO DAILY [facility] Last Admin: 12/24/20 08:41 Dose: 1 each Documented by: Prazosin HCl (Prazosin Hcl 5 Mg Capsule) 10 mg PO BEDTIME [facility]; Protocol Last Admin: 12/23/20 21:50 Dose: 10 mg Documented by: Quetiapine Fumarate (Quetiapine Fumarate 25 Mg Tablet) 75 mg PO BEDTIME [facility] Last Admin: 12/23/20 21:57 Dose: 75 mg Documented by: Thiamine HCl (Thiamine Hcl 100 Mg Tablet) 100 mg PO DAILY [facility] Last Admin: 12/24/20 08:39 Dose: 100 mg Documented by: Trazodone HCl (Trazodone Hcl 100 Mg Tablet) 100 mg PO BEDTIME PRN PRN Reason: Insomnia Last Admin: 12/23/20 22:07 Dose: 100 mg Documented by: Vitamin D (Cholecalciferol (Vitamin D3) 25 Mcg Tablet) 50 mcg PO DAILY [facility] Last Admin: 12/24/20 08:39 Dose: 50 mcg Documented by: Allergies Allergies Allergy/AdvReac Type Severity Reaction Status Date / Time oseltamivir [From TAMIFLU] Allergy Unknown FELT LIKE Unverified 12/20/19 19:22 BUGS WERE ALL OVER ME . Sulfa (Sulfonamide Allergy Unknown HIVES Unverified 12/20/19 19:22 Antibiotics) [SULFA (SULFONAMIDE ANTIBIOTICS)] sulfamethoxazole Allergy Unknown HIVES Unverified 12/20/19 19:22 [From BACTRIM] trimethoprim [From BACTRIM] Allergy Unknown HIVES Unverified 12/20/19 19:22 Assessment & Plan Assessment & Plan (1) Recurrent major depression-severe: Status: Acute Code(s): F33.2 - Major depressive disorder, recurrent severe without psychotic features (2) Borderline personality disorder: Status: Acute Code(s): F60.3 - Borderline personality disorder (3) PTSD (post-traumatic stress disorder): Status: Acute Code(s): F43.10 - Post-traumatic stress disorder, unspecified (4) Suicidal ideation: Status: Acute Code(s): R45.851 - Suicidal ideations Assessment and Plan: continue home medications regimen. keep safe, CO due to revelation of cheeking with plan to overdose on medications while in hospital. support during adjustment time. discharge TBD. Greater than 50% of the session was spent on counseling and/or coordination of care Reason for contiued inpatient stay Substantial Risk for: harm to self
[2020-12-24] MEDS: Amphetamine Mixed Salts 10 MG TABLET PO (14:53)
[2020-12-24] MEDS: Acetaminophen 325 MG TABLET 650 MG PO (16:54)
[2020-12-24] MEDS: hydrOXYzine HCL 25 MG TABLET PO (16:54)
[2020-12-24 20:21] VITALS: BP 140/91; PULSE 86
[2020-12-24] MEDS: Prazosin HCL 5 MG CAPSULE 10 MG PO (20:21)
[2020-12-24] MEDS: QUEtiapine Fumarate 25 MG TABLET 75 MG PO (20:21)
[2020-12-24] MEDS: traZODone HCL 100 MG TABLET PO (20:21)
--- NOTE | 2020-12-24 20:24 | PC.NURSE ---
Approximately 1215 patient approached in room following request for PRN medication. Sitting on bed, visibly upset. Suggests facility is trying to make them crazy hence the need for ECT treatments. Reports they do not feel milieu is therapeutic for them at this time. Endorses milieu tone is triggering for them, it is making me worse . Reports they have many grounding skills although are currently ineffective. Offers to mortgage underwriter they have been cheeking medication and has medications wrapped in a tissue in a sock. States they have appeared to take them when administered however would then take the medication out of her mouth and save them so I could overdose on them. Patient offered sock to this mortgage underwriter, approximately 15 various medications wrapped in tissue found. Dr. Muhammad and foster care social worker notified. Patient placed on constant observation, room search completed with LB. Patient was present in room during search, no further medication or contraband found. Room changed to 308 at patient request.
[2020-12-24 21:03] VITALS: TEMP 36.7; O2SAT 95
[2020-12-25] MEDS: Amphetamine Mixed Salts 20 MG TABLET PO (09:04)
[2020-12-25] MEDS: Fluticasone Propionate Nasal 16 GM SPRAY 1 SPRAY NOSTRIL-B (09:04)
[2020-12-25] MEDS: Nicotine 14 MG PATCH.TD24 TRANSDERMA (09:05)
[2020-12-25] MEDS: Thiamine HCL 100 MG TABLET PO (09:05)
[2020-12-25] MEDS: Lithium Carbonate ER 300 MG TABLET.ER 600 MG PO ×2 (09:05→21:35)
[2020-12-25] MEDS: LORazepam 1 MG TABLET PO ×2 (09:05→21:49)
[2020-12-25] MEDS: Cholecalciferol (Vitamin D3) 25 MCG TABLET 50 MCG PO (09:05)
[2020-12-25 12:11] VITALS: BP 136/81; PULSE 88; TEMP 36.5
--- NOTE | 2020-12-25 15:15 | HO.PSYCHPN ---
Subjective Subjective Date of Service: 12/25/20 Reason For Visit: SI Interim History: per SW, pt reports they slept better last night with medication. asking for trazodone to be scheduled at current PRN dose. per staff, pt appears to be brighter on CO. slept well last night. feeling more comfortable having CO with them. Mental Status Exam Mental Status Exam Narrative: per collateral from FRANCISCA leyva, SI continues without intent in hospital. observed in milieu doing art activities, smiling. Diagnostics Vital Signs (24Hr): Vital Signs - 24 hr 12/24/20 20:21 12/24/20 21:03 12/25/20 12:11 Temperature 98.0 F 97.7 F Pulse Rate 86 88 Blood Pressure 140/91 H 136/81 Pulse Oximetry 95 Body Mass Index 40.3 Labs Results: 12/16/20 13:36 12/16/20 13:36 Medications Medications Current Medications Acetaminophen (Acetaminophen 325 Mg Tablet) 650 mg PO QID PRN PRN Reason: Pain Last Admin: 12/24/20 16:54 Dose: 650 mg Documented by: Al Hydroxide/Mg Hydroxide (Magnesium Hydrox/Alum Hydrox 30 Ml Oral.Susp) 30 ml PO Q6H PRN PRN Reason: Heartburn/Nausea Amphetamine/Dextroamphetamine (Amphetamine Mixed Salts 10 Mg Tablet) 10 mg PO DAILY@1400 [facility] Last Admin: 12/24/20 14:53 Dose: 10 mg Documented by: Amphetamine/Dextroamphetamine (Amphetamine Mixed Salts 20 Mg Tablet) 20 mg PO DAILY [facility] Last Admin: 12/25/20 09:04 Dose: 20 mg Documented by: Fluticasone Propionate (Fluticasone Propionate Nasal 16 Gm [place]) 1 spray NOSTRIL-B DAILY [facility] Last Admin: 12/25/20 09:04 Dose: 1 spray Documented by: Hydroxyzine HCl (Hydroxyzine Hcl 25 Mg Tablet) 25 mg PO Q6H PRN PRN Reason: Anxiety Last Admin: 12/24/20 16:54 Dose: 25 mg Documented by: [place] Carbonate ([place] Carbonate Er 300 Mg Tablet.Er) 600 mg PO BID [facility] Last Admin: 12/25/20 09:05 Dose: 600 mg Documented by: Lorazepam (Lorazepam 1 Mg Tablet) 1 mg PO TID PRN PRN Reason: Anxiety Last Admin: 12/25/20 09:05 Dose: 1 mg Documented by: Magnesium Hydroxide (Milk Of Magnesia 30 Ml Oral.Susp) 30 ml PO DAILY PRN PRN Reason: Constipation Nicotine (Nicotine 14 Mg Patch.Td24) 14 mg TRANSDERMA DAILY [facility] Last Admin: 12/25/20 09:05 Dose: 14 mg Documented by: Patient Own Med ( Desvenlafaxine Succinate [Pristiq] 100 Mg Tablet Extended Releas 1 each PO DAILY [facility] Last Admin: 12/25/20 09:04 Dose: 1 each Documented by: Prazosin HCl (Prazosin Hcl 5 Mg Capsule) 10 mg PO BEDTIME [facility]; Protocol Last Admin: 12/24/20 20:21 Dose: 10 mg Documented by: Quetiapine Fumarate (Quetiapine Fumarate 25 Mg Tablet) 75 mg PO BEDTIME [facility] Last Admin: 12/24/20 20:21 Dose: 75 mg Documented by: Thiamine HCl (Thiamine Hcl 100 Mg Tablet) 100 mg PO DAILY [facility] Last Admin: 12/25/20 09:05 Dose: 100 mg Documented by: Trazodone HCl (Trazodone Hcl 100 Mg Tablet) 100 mg PO BEDTIME PRN PRN Reason: Insomnia Last Admin: 12/24/20 20:21 Dose: 100 mg Documented by: Vitamin D (Cholecalciferol (Vitamin D3) 25 Mcg Tablet) 50 mcg PO DAILY [facility] Last Admin: 12/25/20 09:05 Dose: 50 mcg Documented by: Allergies Allergies Allergy/AdvReac Type Severity Reaction Status Date / Time oseltamivir [From TAMIFLU] Allergy Unknown FELT LIKE Unverified 12/20/19 19:22 BUGS WERE ALL OVER ME . Sulfa (Sulfonamide Allergy Unknown HIVES Unverified 12/20/19 19:22 Antibiotics) [SULFA (SULFONAMIDE ANTIBIOTICS)] sulfamethoxazole Allergy Unknown HIVES Unverified 12/20/19 19:22 [From BACTRIM] trimethoprim [From BACTRIM] Allergy Unknown HIVES Unverified 12/20/19 19:22 Assessment & Plan Assessment & Plan (1) Recurrent major depression-severe: Status: Acute Code(s): F33.2 - Major depressive disorder, recurrent severe without psychotic features (2) Borderline personality disorder: Status: Acute Code(s): F60.3 - Borderline personality disorder (3) PTSD (post-traumatic stress disorder): Status: Acute Code(s): F43.10 - Post-traumatic stress disorder, unspecified (4) Suicidal ideation: Status: Acute Code(s): R45.851 - Suicidal ideations Assessment and Plan: continue home medications regimen. schedule trazodone at HS. keep safe, CO due to revelation of cheeking with plan to overdose on medications while in hospital. support during adjustment time. discharge TBD. Greater than 50% of the session was spent on counseling and/or coordination of care Reason for contiued inpatient stay Substantial Risk for: harm to self
[2020-12-25] MEDS: Amphetamine Mixed Salts 10 MG TABLET PO (16:05)
[2020-12-25 18:00] VITALS: BP 149/72; PULSE 92; RESP 16; TEMP 36.8; O2SAT 97
[2020-12-25] MEDS: hydrOXYzine HCL 25 MG TABLET PO (19:48)
[2020-12-25] MEDS: QUEtiapine Fumarate 25 MG TABLET 75 MG PO (21:34)
[2020-12-25 21:35] VITALS: BP 138/74; PULSE 89
[2020-12-25] MEDS: Prazosin HCL 5 MG CAPSULE 10 MG PO (21:35)
[2020-12-25] MEDS: traZODone HCL 100 MG TABLET PO (21:37)
[2020-12-26 06:00] VITALS: BP 121/74; PULSE 91; RESP 18; TEMP 36.4; O2SAT 94
[2020-12-26] MEDS: Lithium Carbonate ER 300 MG TABLET.ER 600 MG PO ×2 (08:44→22:18)
[2020-12-26] MEDS: Cholecalciferol (Vitamin D3) 25 MCG TABLET 50 MCG PO (08:44)
[2020-12-26] MEDS: Nicotine 14 MG PATCH.TD24 TRANSDERMA (08:44)
[2020-12-26] MEDS: Fluticasone Propionate Nasal 16 GM SPRAY 1 SPRAY NOSTRIL-B (08:44)
[2020-12-26] MEDS: Thiamine HCL 100 MG TABLET PO (08:44)
[2020-12-26] MEDS: LORazepam 1 MG TABLET PO ×2 (09:15→22:18)
[2020-12-26] MEDS: hydrOXYzine HCL 25 MG TABLET PO (10:04)
--- NOTE | 2020-12-26 13:32 | P.PNPSI_ITS ---
Subjective Subjective Date of Service: 12/26/20 Reason For Visit: SI Interim History: pt observed ambulating about the unit with CO staff, smiling broadly, talking animatedly, and laughing. per collateral from FRANCISCA Ambrose, pt continues to have SI, struggling with the behaviors and provocations of manic peer. per staff, pt has asked that diusruptive peer be directed away from them. endorsed SI yesterday, noted they saw a plastic bag thrown in the trash and imagined how they might get it and use it to kill themself (plastic bag was later removed from trash by FRANCISCA Ambrose). continues to sleep well. Mental Status Exam Mental Status Exam Narrative: per collateral from FRANCISCA ambrose, SI continues without intent in hospital. observed in milieu doing art activities, smiling, laughing with staf f.. Diagnostics Vital Signs (24Hr): Vital Signs - 24 hr 12/25/20 18:00 12/25/20 21:35 12/26/20 06:00 Temperature 98.2 F 97.6 F Pulse Rate 92 89 91 Respiratory Rate 16 18 Blood Pressure 149/72 H 138/74 121/74 Pulse Oximetry 97 94 Body Mass Index 40.3 Labs Results: 12/16/20 13:36 12/16/20 13:36 Medications Medications Current Medications Acetaminophen (Acetaminophen 325 Mg Tablet) 650 mg PO QID PRN PRN Reason: Pain Last Admin: 12/24/20 16:54 Dose: 650 mg Documented by: Al Hydroxide/Mg Hydroxide (Magnesium Hydrox/Alum Hydrox 30 Ml Oral.Susp) 30 ml PO Q6H PRN PRN Reason: Heartburn/Nausea Amphetamine/Dextroamphetamine (Amphetamine Mixed Salts 10 Mg Tablet) 10 mg PO DAILY@1400 [facility] Last Admin: 12/25/20 16:05 Dose: 10 mg Documented by: Amphetamine/Dextroamphetamine (Amphetamine Mixed Salts 20 Mg Tablet) 20 mg PO DAILY [facility] [place] Last Admin: 12/26/20 09:02 Dose: Not Given Documented by: Fluticasone Propionate (Fluticasone Propionate Nasal 16 Gm [place]) 1 spray NOSTRIL-B DAILY [facility] [place] Last Admin: 12/26/20 08:44 Dose: 1 spray Documented by: Hydroxyzine HCl (Hydroxyzine Hcl 25 Mg Tablet) 25 mg PO Q6H PRN PRN Reason: Anxiety Last Admin: 12/26/20 10:04 Dose: 25 mg Documented by: [place] Carbonate ([place] Carbonate Er 300 Mg Tablet.Er) 600 mg PO BID [facility] [place] Last Admin: 12/26/20 08:44 Dose: 600 mg Documented by: Lorazepam (Lorazepam 1 Mg Tablet) 1 mg PO TID PRN PRN Reason: Anxiety Last Admin: 12/26/20 09:15 Dose: 1 mg Documented by: Magnesium Hydroxide (Milk Of Magnesia 30 Ml Oral.Susp) 30 ml PO DAILY PRN PRN Reason: Constipation Nicotine (Nicotine 14 Mg Patch.Td24) 14 mg TRANSDERMA DAILY [facility] Last Admin: 12/26/20 08:44 Dose: 14 mg Documented by: Patient Own Med ( Desvenlafaxine Succinate [Pristiq] 100 Mg Tablet Extended Releas 1 each PO DAILY [facility] Last Admin: 12/26/20 08:44 Dose: 1 each Documented by: Prazosin HCl (Prazosin Hcl 5 Mg Capsule) 10 mg PO BEDTIME [facility] [place]; Protocol Last Admin: 12/25/20 21:35 Dose: 10 mg Documented by: Quetiapine Fumarate (Quetiapine Fumarate 25 Mg Tablet) 75 mg PO BEDTIME [facility] Last Admin: 12/25/20 21:34 Dose: 75 mg Documented by: Thiamine HCl (Thiamine Hcl 100 Mg Tablet) 100 mg PO DAILY [facility] [place] Last Admin: 12/26/20 08:44 Dose: 100 mg Documented by: Trazodone HCl (Trazodone Hcl 100 Mg Tablet) 100 mg PO BEDTIME [facility] Last Admin: 12/25/20 21:37 Dose: 100 mg Documented by: Vitamin D (Cholecalciferol (Vitamin D3) 25 Mcg Tablet) 50 mcg PO DAILY [facility] [place] Last Admin: 12/26/20 08:44 Dose: 50 mcg Documented by: Allergies Allergies Allergy/AdvReac Type Severity Reaction Status Date / Time oseltamivir [From TAMIFLU] Allergy Unknown FELT LIKE Unverified 12/20/19 19:22 BUGS WERE ALL OVER ME . Sulfa (Sulfonamide Allergy Unknown HIVES Unverified 12/20/19 19:22 Antibiotics) [SULFA (SULFONAMIDE ANTIBIOTICS)] sulfamethoxazole Allergy Unknown HIVES Unverified 12/20/19 19:22 [From BACTRIM] trimethoprim [From BACTRIM] Allergy Unknown HIVES Unverified 12/20/19 19:22 Assessment & Plan Assessment & Plan (1) Recurrent major depression-severe: Status: Acute Code(s): F33.2 - Major depressive disorder, recurrent severe without psychotic features (2) Borderline personality disorder: Status: Acute Code(s): F60.3 - Borderline personality disorder (3) PTSD (post-traumatic stress disorder): Status: Acute Code(s): F43.10 - Post-traumatic stress disorder, unspecified (4) Suicidal ideation: Status: Acute Code(s): R45.851 - Suicidal ideations Assessment and Plan: continue home medications regimen. scheduled trazodone at as of 12/25. keep safe, CO due to revelation of cheeking with plan to overdose on medications while in hospital. support during adjustment time. discharge TBD. Greater than 50% of the session was spent on counseling and/or coordination of care Reason for contiued inpatient stay Substantial Risk for: harm to self
[2020-12-26] MEDS: Amphetamine Mixed Salts 10 MG TABLET PO (15:56)
[2020-12-26] MEDS: Acetaminophen 325 MG TABLET 650 MG PO (18:44)
[2020-12-26 21:50] VITALS: BP 148/81; PULSE 82; RESP 18; TEMP 36.6; O2SAT 97
[2020-12-26 22:18] VITALS: BP 148/81; PULSE 82
[2020-12-26] MEDS: QUEtiapine Fumarate 25 MG TABLET 75 MG PO (22:18)
[2020-12-26] MEDS: Prazosin HCL 5 MG CAPSULE 10 MG PO (22:18)
[2020-12-26] MEDS: traZODone HCL 100 MG TABLET PO (22:18)
[2020-12-27 06:00] VITALS: BP 120/61; PULSE 86; RESP 16; TEMP 36.7; O2SAT 97
[2020-12-27] MEDS: Cholecalciferol (Vitamin D3) 25 MCG TABLET 50 MCG PO (08:37)
[2020-12-27] MEDS: Fluticasone Propionate Nasal 16 GM SPRAY 1 SPRAY NOSTRIL-B (08:37)
[2020-12-27] MEDS: Nicotine 14 MG PATCH.TD24 TRANSDERMA (08:37)
[2020-12-27] MEDS: LORazepam 1 MG TABLET PO ×3 (08:37→22:07)
[2020-12-27] MEDS: Lithium Carbonate ER 300 MG TABLET.ER 600 MG PO ×2 (08:38→22:07)
[2020-12-27] MEDS: Thiamine HCL 100 MG TABLET PO (08:38)
[2020-12-27] MEDS: Amphetamine Mixed Salts 20 MG TABLET PO (08:38)
[2020-12-27] MEDS: Amphetamine Mixed Salts 10 MG TABLET PO (14:39)
[2020-12-27 22:00] VITALS: BP 132/76; PULSE 83; RESP 16; TEMP 36.8; O2SAT 97
[2020-12-27 22:07] VITALS: BP 132/76; PULSE 83
[2020-12-27] MEDS: traZODone HCL 100 MG TABLET PO (22:07)
[2020-12-27] MEDS: Prazosin HCL 5 MG CAPSULE 10 MG PO (22:07)
[2020-12-27] MEDS: QUEtiapine Fumarate 25 MG TABLET 75 MG PO (22:07)
[2020-12-28 06:00] VITALS: BP 144/80; PULSE 90; RESP 18; TEMP 36.3; O2SAT 97
--- NOTE | 2020-12-28 07:37 | HO.PSYCHPN ---
Subjective Subjective Date of Service: 12/28/20 Reason For Visit: SI Interim History: Patient was seen in rounds today. She continues to be on one-to-one level of observation because of her suicidal ideations. The suicidal ideations continue to persist. She has talked to nursing staff about wanting to do things so she act on the ideations. She has been safe on the unit. She is visible. Social. She is med compliant. Eating and sleeping adequately. No complaints or side effects. No changes were made Review of Systems Constitutional: Reports body ache(s), Denies chills, Denies fatigue, Denies fever(s), Denies headache(s), Denies malaise and Denies weakness Eyes: Denies diplopia Denies vertigo, Denies dizziness, Denies otalgia, Denies headache(s), Denies mouth pain, Denies post nasal drip, Denies sinus pain, Denies sinus pressure, Denies sore throat and Denies throat swelling Cardiovascular: Denies chest pain, Denies syncope, Denies leg edema, Denies lightheadedness, Denies Loss of Consciousness, Denies palpitations and Denies dyspnea Respiratory: Denies chest congestion, Denies cough and Denies dyspnea Gastrointestinal: Denies abdominal pain, Denies hematochezia, Denies constipation, Denies diarrhea and Denies vomiting Musculoskeletal: Reports myalgias Skin/Breast: Denies erythema and Denies rash Denies confusion, Denies vertigo, Denies dizziness, Denies syncope, Denies headache(s) and Denies weakness Psychiatric: Reports anxiety, Denies confusion, Reports depression, Reports hopelessness, Reports hallucinations and Reports suicidal ideation Endocrine: Denies fatigue and Denies palpitations Allergic/Immunologic: Denies throat swelling Mental Status Exam Mental Status Exam Narrative: In today's visit she is alert, oriented and pleasant. Normal speech. Moderate eye contact. Affect is appropriate and constricted. Moderate depression present. She does continue to have suicidal ideations and plans to hang herself after discharge. No signs of psychosis. Cognitively intact. Judgment is intact Diagnostics Vital Signs (24Hr): Vital Signs - 24 hr 12/27/20 22:00 12/27/20 22:07 Temperature 98.3 F Pulse Rate 83 83 Respiratory Rate 16 Blood Pressure 132/76 132/76 Pulse Oximetry 97 Body Mass Index 40.3 Labs Results: 12/16/20 13:36 12/16/20 13:36 Medications Medications Current Medications Acetaminophen (Acetaminophen 325 Mg Tablet) 650 mg PO QID PRN PRN Reason: Pain Last Admin: 12/26/20 18:44 Dose: 650 mg Documented by: Al Hydroxide/Mg Hydroxide (Magnesium Hydrox/Alum Hydrox 30 Ml Oral.Susp) 30 ml PO Q6H PRN PRN Reason: Heartburn/Nausea Amphetamine/Dextroamphetamine (Amphetamine Mixed Salts 10 Mg Tablet) 10 mg PO DAILY@1400 [facility] Last Admin: 12/27/20 14:39 Dose: 10 mg Documented by: Amphetamine/Dextroamphetamine (Amphetamine Mixed Salts 20 Mg Tablet) 20 mg PO DAILY [facility] Last Admin: 12/27/20 08:38 Dose: 20 mg Documented by: Fluticasone Propionate (Fluticasone Propionate Nasal 16 Gm [place]) 1 spray NOSTRIL-B DAILY [facility] Last Admin: 12/27/20 08:37 Dose: 1 spray Documented by: Hydroxyzine HCl (Hydroxyzine Hcl 25 Mg Tablet) 25 mg PO Q6H PRN PRN Reason: Anxiety Last Admin: 12/26/20 10:04 Dose: 25 mg Documented by: [place] Carbonate ([place] Carbonate Er 300 Mg Tablet.Er) 600 mg PO BID [facility] Last Admin: 12/27/20 22:07 Dose: 600 mg Documented by: Lorazepam (Lorazepam 1 Mg Tablet) 1 mg PO TID PRN PRN Reason: Anxiety Last Admin: 12/27/20 22:07 Dose: 1 mg Documented by: Magnesium Hydroxide (Milk Of Magnesia 30 Ml Oral.Susp) 30 ml PO DAILY PRN PRN Reason: Constipation Nicotine (Nicotine 14 Mg Patch.Td24) 14 mg TRANSDERMA DAILY [facility] Last Admin: 12/27/20 08:37 Dose: 14 mg Documented by: Patient Own Med ( Desvenlafaxine Succinate [Pristiq] 100 Mg Tablet Extended Releas 1 each PO DAILY [facility] Last Admin: 12/27/20 08:37 Dose: 1 each Documented by: Prazosin HCl (Prazosin Hcl 5 Mg Capsule) 10 mg PO BEDTIME [facility]; Protocol Last Admin: 12/27/20 22:07 Dose: 10 mg Documented by: Quetiapine Fumarate (Quetiapine Fumarate 25 Mg Tablet) 75 mg PO BEDTIME [facility] Last Admin: 12/27/20 22:07 Dose: 75 mg Documented by: Thiamine HCl (Thiamine Hcl 100 Mg Tablet) 100 mg PO DAILY [facility] Last Admin: 12/27/20 08:38 Dose: 100 mg Documented by: Trazodone HCl (Trazodone Hcl 100 Mg Tablet) 100 mg PO BEDTIME [facility] Last Admin: 12/27/20 22:07 Dose: 100 mg Documented by: Vitamin D (Cholecalciferol (Vitamin D3) 25 Mcg Tablet) 50 mcg PO DAILY [facility] Last Admin: 12/27/20 08:37 Dose: 50 mcg Documented by: Allergies Allergies Allergy/AdvReac Type Severity Reaction Status Date / Time oseltamivir [From TAMIFLU] Allergy Unknown FELT LIKE Unverified 12/20/19 19:22 BUGS WERE ALL OVER ME . Sulfa (Sulfonamide Allergy Unknown HIVES Unverified 12/20/19 19:22 Antibiotics) [SULFA (SULFONAMIDE ANTIBIOTICS)] sulfamethoxazole Allergy Unknown HIVES Unverified 12/20/19 19:22 [From BACTRIM] trimethoprim [From BACTRIM] Allergy Unknown HIVES Unverified 12/20/19 19:22 Assessment & Plan Assessment & Plan (1) Recurrent major depression-severe: Status: Acute Code(s): F33.2 - Major depressive disorder, recurrent severe without psychotic features (2) Borderline personality disorder: Status: Acute Code(s): F60.3 - Borderline personality disorder (3) PTSD (post-traumatic stress disorder): Status: Acute Code(s): F43.10 - Post-traumatic stress disorder, unspecified (4) Suicidal ideation: Status: Acute Code(s): R45.851 - Suicidal ideations Assessment and Plan: continue home medications regimen. scheduled trazodone at as of 12/25. keep safe, CO due to revelation of cheeking with plan to overdose on medications while in hospital. support during adjustment time. Continue current regimen and plans. Continue one-to-one observation. Greater than 50% of the session was spent on counseling and/or coordination of care Reason for contiued inpatient stay Substantial Risk for: harm to self
[2020-12-28] MEDS: Fluticasone Propionate Nasal 16 GM SPRAY 1 SPRAY NOSTRIL-B (09:08)
[2020-12-28] MEDS: Lithium Carbonate ER 300 MG TABLET.ER 600 MG PO ×2 (09:08→21:55)
[2020-12-28] MEDS: LORazepam 1 MG TABLET PO ×3 (09:08→21:55)
[2020-12-28] MEDS: Nicotine 14 MG PATCH.TD24 TRANSDERMA (09:09)
[2020-12-28] MEDS: Thiamine HCL 100 MG TABLET PO (09:09)
[2020-12-28] MEDS: Amphetamine Mixed Salts 20 MG TABLET PO (09:09)
[2020-12-28] MEDS: Cholecalciferol (Vitamin D3) 25 MCG TABLET 50 MCG PO (09:09)
[2020-12-28] MEDS: Acetaminophen 325 MG TABLET 650 MG PO ×2 (11:57→21:55)
[2020-12-28] MEDS: hydrOXYzine HCL 25 MG TABLET PO (16:26)
[2020-12-28 21:24] VITALS: TEMP 36.7; O2SAT 96
[2020-12-28 21:55] VITALS: BP 141/79; PULSE 90
[2020-12-28] MEDS: traZODone HCL 100 MG TABLET PO (21:55)
[2020-12-28] MEDS: Prazosin HCL 5 MG CAPSULE 10 MG PO (21:55)
[2020-12-28] MEDS: QUEtiapine Fumarate 25 MG TABLET 75 MG PO (21:55)
[2020-12-29 09:46] VITALS: BP 132/63; PULSE 84; RESP 16; TEMP 36.7; O2SAT 99
[2020-12-29] MEDS: Lithium Carbonate ER 300 MG TABLET.ER 600 MG PO ×2 (09:52→21:51)
[2020-12-29] MEDS: Thiamine HCL 100 MG TABLET PO (09:52)
[2020-12-29] MEDS: Cholecalciferol (Vitamin D3) 25 MCG TABLET 50 MCG PO (09:52)
[2020-12-29] MEDS: Amphetamine Mixed Salts 20 MG TABLET PO (09:52)
[2020-12-29] MEDS: Fluticasone Propionate Nasal 16 GM SPRAY 1 SPRAY NOSTRIL-B (09:52)
[2020-12-29] MEDS: LORazepam 1 MG TABLET PO ×2 (09:53→22:08)
--- NOTE | 2020-12-29 13:06 | HO.PSYCHPN ---
Subjective Subjective Date of Service: 12/29/20 Reason For Visit: SI Interim History: per staff, no notable changes in pt's presentation. continues to endorse SI. due to persistence of threats and pt's motivation and presumed ability to obtain a weapon on the unit, status will be changed from CO to 1:1. Mental Status Exam Mental Status Exam Narrative: per collateral from RN, SI continues with intent in hospital. not observed in the milieu at the time of this note, MD did not seek out pt per pt's explicit request. Diagnostics Vital Signs (24Hr): Vital Signs - 24 hr 12/28/20 21:24 12/28/20 21:55 12/29/20 09:46 Temperature 98.1 F 98.0 F Pulse Rate 90 84 Respiratory Rate 16 Blood Pressure 141/79 H 132/63 Pulse Oximetry 96 99 Body Mass Index 40.3 Labs Results: 12/16/20 13:36 12/16/20 13:36 Medications Medications Current Medications Acetaminophen (Acetaminophen 325 Mg Tablet) 650 mg PO QID PRN PRN Reason: Pain Last Admin: 12/28/20 21:55 Dose: 650 mg Documented by: Al Hydroxide/Mg Hydroxide (Magnesium Hydrox/Alum Hydrox 30 Ml Oral.Susp) 30 ml PO Q6H PRN PRN Reason: Heartburn/Nausea Amphetamine/Dextroamphetamine (Amphetamine Mixed Salts 10 Mg Tablet) 10 mg PO DAILY@1400 [facility] Last Admin: 12/28/20 14:35 Dose: Not Given Documented by: Amphetamine/Dextroamphetamine (Amphetamine Mixed Salts 20 Mg Tablet) 20 mg PO DAILY [facility] Last Admin: 12/29/20 09:52 Dose: 20 mg Documented by: Fluticasone Propionate (Fluticasone Propionate Nasal 16 Gm [place]) 1 spray NOSTRIL-B DAILY [facility] Last Admin: 12/29/20 09:52 Dose: 1 spray Documented by: Hydroxyzine HCl (Hydroxyzine Hcl 25 Mg Tablet) 25 mg PO Q6H PRN PRN Reason: Anxiety Last Admin: 12/28/20 16:26 Dose: 25 mg Documented by: [place] Carbonate ([place] Carbonate Er 300 Mg Tablet.Er) 600 mg PO BID [facility] Last Admin: 12/29/20 09:52 Dose: 600 mg Documented by: Magnesium Hydroxide (Milk Of Magnesia 30 Ml Oral.Susp) 30 ml PO DAILY PRN PRN Reason: Constipation Nicotine (Nicotine 14 Mg Patch.Td24) 14 mg TRANSDERMA DAILY [facility] Last Admin: 12/29/20 09:56 Dose: Not Given Documented by: Patient Own Med ( Desvenlafaxine Succinate [Pristiq] 100 Mg Tablet Extended Releas 1 each PO DAILY [facility] Last Admin: 12/29/20 09:52 Dose: 1 each Documented by: Prazosin HCl (Prazosin Hcl 5 Mg Capsule) 10 mg PO BEDTIME [facility]; Protocol Last Admin: 12/28/20 21:55 Dose: 10 mg Documented by: Quetiapine Fumarate (Quetiapine Fumarate 25 Mg Tablet) 75 mg PO BEDTIME [facility] Last Admin: 12/28/20 21:55 Dose: 75 mg Documented by: Thiamine HCl (Thiamine Hcl 100 Mg Tablet) 100 mg PO DAILY [facility] Last Admin: 12/29/20 09:52 Dose: 100 mg Documented by: Trazodone HCl (Trazodone Hcl 100 Mg Tablet) 100 mg PO BEDTIME [facility] Last Admin: 12/28/20 21:55 Dose: 100 mg Documented by: Vitamin D (Cholecalciferol (Vitamin D3) 25 Mcg Tablet) 50 mcg PO DAILY [facility] Last Admin: 12/29/20 09:52 Dose: 50 mcg Documented by: Allergies Allergies Allergy/AdvReac Type Severity Reaction Status Date / Time oseltamivir [From TAMIFLU] Allergy Unknown FELT LIKE Unverified 12/20/19 19:22 BUGS WERE ALL OVER ME . Sulfa (Sulfonamide Allergy Unknown HIVES Unverified 12/20/19 19:22 Antibiotics) [SULFA (SULFONAMIDE ANTIBIOTICS)] sulfamethoxazole Allergy Unknown HIVES Unverified 12/20/19 19:22 [From BACTRIM] trimethoprim [From BACTRIM] Allergy Unknown HIVES Unverified 12/20/19 19:22 Assessment & Plan Assessment & Plan (1) Recurrent major depression-severe: Status: Acute Code(s): F33.2 - Major depressive disorder, recurrent severe without psychotic features (2) Borderline personality disorder: Status: Acute Code(s): F60.3 - Borderline personality disorder (3) PTSD (post-traumatic stress disorder): Status: Acute Code(s): F43.10 - Post-traumatic stress disorder, unspecified (4) Suicidal ideation: Status: Acute Code(s): R45.851 - Suicidal ideations Assessment and Plan: continue home medications regimen. scheduled trazodone at HS as of 12/25. keep safe, CO stareted due to revelation of cheeking with plan to overdose on medications while in hospital. status changed to 1:1 as of 12/29 due to concern over pt's continued motivation and presumed ability to harm herself quickly and/or surreptitiously on the unit. support during adjustment time. Greater than 50% of the session was spent on counseling and/or coordination of care Reason for contiued inpatient stay Substantial Risk for: harm to self
[2020-12-29 21:48] VITALS: TEMP 36.9; O2SAT 98
[2020-12-29 21:51] VITALS: BP 136/78; PULSE 81
[2020-12-29] MEDS: Prazosin HCL 5 MG CAPSULE 10 MG PO (21:51)
[2020-12-29] MEDS: traZODone HCL 100 MG TABLET PO (21:51)
[2020-12-29] MEDS: QUEtiapine Fumarate 25 MG TABLET 75 MG PO (21:51)
[2020-12-30] MEDS: Cholecalciferol (Vitamin D3) 25 MCG TABLET 50 MCG PO (09:00)
[2020-12-30] MEDS: Amphetamine Mixed Salts 20 MG TABLET PO (09:00)
[2020-12-30] MEDS: Lithium Carbonate ER 300 MG TABLET.ER 600 MG PO ×2 (09:00→21:45)
[2020-12-30] MEDS: LORazepam 1 MG TABLET PO ×2 (09:00→21:46)
[2020-12-30] MEDS: Thiamine HCL 100 MG TABLET PO (09:00)
[2020-12-30] MEDS: Fluticasone Propionate Nasal 16 GM SPRAY 1 SPRAY NOSTRIL-B (09:01)
[2020-12-30 09:27] VITALS: BP 122/56; PULSE 89; RESP 16; TEMP 36.7; O2SAT 95
--- NOTE | 2020-12-30 12:10 | P.PNPSI_ITS ---
Subjective Subjective Date of Service: 12/30/20 Reason For Visit: SI Interim History: pt observed seated in the milieu smiling and conversing with 1:1 staff. female peer was also at the table. per FRANCISCA Ambrose: No med questions or concerns. Finds 1:1 helpful for safety, able to feel less isolated and verbalize negative thoughts in the moment with someone else. Still struggling a lot with grief and flashbacks from childhood trauma. Blaming self for the of the baby and wondering if they would get to be with the baby if they . Did note they were able to have a few moments over weekend of smiling or briefly feeling less terrible. per staff developer, tearful at times yesterday, more visible later in the day. Mental Status Exam Mental Status Exam Narrative: per collateral from RN, slight improvement in mood from yesterday. observed in the milieu smiling and conversing with staff and peers. Diagnostics Vital Signs (24Hr): Vital Signs - 24 hr 12/29/20 21:48 12/29/20 21:51 12/30/20 09:27 Temperature 98.5 F 98.0 F Pulse Rate 81 89 Respiratory Rate 16 Blood Pressure 136/78 122/56 L Pulse Oximetry 98 95 Body Mass Index 40.3 Labs Results: 12/16/20 13:36 12/16/20 13:36 Medications Medications Current Medications Acetaminophen (Acetaminophen 325 Mg Tablet) 650 mg PO QID PRN PRN Reason: Pain Last Admin: 12/28/20 21:55 Dose: 650 mg Documented by: Al Hydroxide/Mg Hydroxide (Magnesium Hydrox/Alum Hydrox 30 Ml Oral.Susp) 30 ml PO Q6H PRN PRN Reason: Heartburn/Nausea Amphetamine/Dextroamphetamine (Amphetamine Mixed Salts 10 Mg Tablet) 10 mg PO DAILY@1400 [facility] Last Admin: 12/29/20 16:07 Dose: Not Given Documented by: Amphetamine/Dextroamphetamine (Amphetamine Mixed Salts 20 Mg Tablet) 20 mg PO DAILY [facility] Last Admin: 12/30/20 09:00 Dose: 20 mg Documented by: Fluticasone Propionate (Fluticasone Propionate Nasal 16 Gm [place]) 1 spray NOST RIL-B DAILY [facility] Last Admin: 12/30/20 09:01 Dose: 1 spray Documented by: Hydroxyzine HCl (Hydroxyzine Hcl 25 Mg Tablet) 25 mg PO Q6H PRN PRN Reason: Anxiety Last Admin: 12/28/20 16:26 Dose: 25 mg Documented by: [place] Carbonate ([place] Carbonate Er 300 Mg Tablet.Er) 600 mg PO BID [facility] Last Admin: 12/30/20 09:00 Dose: 600 mg Documented by: Lorazepam (Lorazepam 1 Mg Tablet) 1 mg PO TID PRN PRN Reason: anxiety Last Admin: 12/30/20 09:00 Dose: 1 mg Documented by: Magnesium Hydroxide (Milk Of Magnesia 30 Ml Oral.Susp) 30 ml PO DAILY PRN PRN Reason: Constipation Nicotine (Nicotine 14 Mg Patch.Td24) 14 mg TRANSDERMA DAILY [facility] Last Admin: 12/30/20 10:14 Dose: Not Given Documented by: Patient Own Med ( Desvenlafaxine Succinate [Pristiq] 100 Mg Tablet Extended Releas 1 each PO DAILY [facility] Last Admin: 12/30/20 09:00 Dose: 1 each Documented by: Prazosin HCl (Prazosin Hcl 5 Mg Capsule) 10 mg PO BEDTIME [facility]; Protocol Last Admin: 12/29/20 21:51 Dose: 10 mg Documented by: Quetiapine Fumarate (Quetiapine Fumarate 25 Mg Tablet) 75 mg PO BEDTIME [facility] Last Admin: 12/29/20 21:51 Dose: 75 mg Documented by: Thiamine HCl (Thiamine Hcl 100 Mg Tablet) 100 mg PO DAILY [facility] Last Admin: 12/30/20 09:00 Dose: 100 mg Documented by: Trazodone HCl (Trazodone Hcl 100 Mg Tablet) 100 mg PO BEDTIME [facility] Last Admin: 12/29/20 21:51 Dose: 100 mg Documented by: Vitamin D (Cholecalciferol (Vitamin D3) 25 Mcg Tablet) 50 mcg PO DAILY [facility] Last Admin: 12/30/20 09:00 Dose: 50 mcg Documented by: Allergies Allergies Allergy/AdvReac Type Severity Reaction Status Date / Time oseltamivir [From TAMIFLU] Allergy Unknown FELT LIKE Unverified 12/20/19 19:22 BUGS WERE ALL OVER ME . Sulfa (Sulfonamide Allergy Unknown HIVES Unverified 12/20/19 19:22 Antibiotics) [SULFA (SULFONAMIDE ANTIBIOTICS)] sulfamethoxazole Allergy Unknown HIVES Unverified 12/20/19 19:22 [From BACTRIM] trimethoprim [From BACTRIM] Allergy Unknown HIVES Unverified 12/20/19 19:22 Assessment & Plan Assessment & Plan (1) Recurrent major depression-severe: Status: Acute Code(s): F33.2 - Major depressive disorder, recurrent severe without psychotic features (2) Borderline personality disorder: Status: Acute Code(s): F60.3 - Borderline personality disorder (3) PTSD (post-traumatic stress disorder): Status: Acute Code(s): F43.10 - Post-traumatic stress disorder, unspecified (4) Suicidal ideation: Status: Acute Code(s): R45.851 - Suicidal ideations Assessment and Plan: continue home medications regimen. scheduled trazodone at HS as of 12/25. keep safe, CO started due to revelation of cheeking with plan to overdose on medications while in hospital. status changed to 1:1 as of 12/29 due to concern over pt's continued motivation and presumed ability to harm herself quickly and/or surreptitiously on the unit. support during adjustment time. Greater than 50% of the session was spent on counseling and/or coordination of care Reason for contiued inpatient stay Substantial Risk for: harm to self
[2020-12-30] MEDS: Amphetamine Mixed Salts 10 MG TABLET PO (13:33)
[2020-12-30] MEDS: QUEtiapine Fumarate 25 MG TABLET 75 MG PO (21:44)
[2020-12-30 21:45] VITALS: BP 157/81; PULSE 90
[2020-12-30] MEDS: Prazosin HCL 5 MG CAPSULE 10 MG PO (21:45)
[2020-12-30] MEDS: traZODone HCL 100 MG TABLET PO (21:45)
[2020-12-30 21:55] VITALS: BP 157/81; PULSE 90; TEMP 36.2; O2SAT 95
[2020-12-31 06:00] VITALS: BP 122/82; PULSE 88; RESP 20; TEMP 36.7; O2SAT 98
[2020-12-31] MEDS: Fluticasone Propionate Nasal 16 GM SPRAY 1 SPRAY NOSTRIL-B (08:28)
[2020-12-31] MEDS: LORazepam 1 MG TABLET PO ×2 (08:29→20:34)
[2020-12-31] MEDS: Amphetamine Mixed Salts 20 MG TABLET PO (08:29)
[2020-12-31] MEDS: Cholecalciferol (Vitamin D3) 25 MCG TABLET 50 MCG PO (08:29)
[2020-12-31] MEDS: Thiamine HCL 100 MG TABLET PO (08:29)
[2020-12-31] MEDS: Lithium Carbonate ER 300 MG TABLET.ER 600 MG PO ×2 (08:29→20:33)
[2020-12-31] MEDS: Amphetamine Mixed Salts 10 MG TABLET PO (14:13)
--- NOTE | 2020-12-31 14:23 | P.PNPSI_ITS ---
Subjective Subjective Date of Service: 12/31/20 Reason For Visit: SI Interim History: per FRANCISCA Ambrose interaction today: Sandi continues to feel suicidal and ready to , no active plan on the unit but saying they don?t care much about what happens with 1:1 because they just don?t want to be here (alive). They are agreeable to talking about making goals/steps toward increasing safety on the unit without 1:1 and we plan to talk about that tomorrow. Requested dc of nicotine patch and asked if they could just have the gum for when they are really craving. pt observed seated in group with FRANCISCA loomis. per staff, c/o anxiety and depression, SI. no notable events or behaviors. Mental Status Exam Mental Status Exam Narrative: per collateral from FRANCISCA, continues to have SI. observed in group seated, calm, constricted affect. Diagnostics Vital Signs (24Hr): Vital Signs - 24 hr 12/30/20 21:45 12/30/20 21:55 12/31/20 06:00 Temperature 97.2 F 98.1 F Pulse Rate 90 90 88 Respiratory Rate 20 Blood Pressure 157/81 H 157/81 H 122/82 Pulse Oximetry 95 98 Body Mass Index 40.3 Labs Results: 12/16/20 13:36 12/16/20 13:36 Medications Medications Current Medications Acetaminophen (Acetaminophen 325 Mg Tablet) 650 mg PO QID PRN PRN Reason: Pain Last Admin: 12/28/20 21:55 Dose: 650 mg Documented by: Al Hydroxide/Mg Hydroxide (Magnesium Hydrox/Alum Hydrox 30 Ml Oral.Susp) 30 ml PO Q6H PRN PRN Reason: Heartburn/Nausea Amphetamine/Dextroamphetamine (Amphetamine Mixed Salts 10 Mg Tablet) 10 mg PO DAILY@1400 [facility] Last Admin: 12/31/20 14:13 Dose: 10 mg Documented by: Amphetamine/Dextroamphetamine (Amphetamine Mixed Salts 20 Mg Tablet) 20 mg PO DAILY [facility] Last Admin: 12/31/20 08:29 Dose: 20 mg Documented by: Fluticasone Propionate (Fluticasone Propionate Nasal 16 Gm [place]) 1 spray NOSTRIL-B DAILY [facility] Last Admin: 12/31/20 08:28 Dose: 1 spray Documented by: Hydroxyzine HCl (Hydroxyzine Hcl 25 Mg Tablet) 25 mg PO Q6H PRN PRN Reason: Anxiety Last Admin: 12/28/20 16:26 Dose: 25 mg Documented by: [place] Carbonate ([place] Carbonate Er 300 Mg Tablet.Er) 600 mg PO BID [facility] Last Admin: 12/31/20 08:29 Dose: 600 mg Documented by: Lorazepam (Lorazepam 1 Mg Tablet) 1 mg PO TID PRN PRN Reason: anxiety Last Admin: 12/31/20 08:29 Dose: 1 mg Documented by: Magnesium Hydroxide (Milk Of Magnesia 30 Ml Oral.Susp) 30 ml PO DAILY PRN PRN Reason: Constipation Nicotine Polacrilex (Nicotine Polacrilex 2 Mg Gum) 2 mg BUCCAL Q1H PRN PRN Reason: Nicotine Cravings Patient Own Med ( Desvenlafaxine Succinate [Pristiq] 100 Mg Tablet Extended Releas 1 each PO DAILY [facility] Last Admin: 12/31/20 08:28 Dose: 1 each Documented by: Prazosin HCl (Prazosin Hcl 5 Mg Capsule) 10 mg PO BEDTIME [facility]; Protocol Last Admin: 12/30/20 21:45 Dose: 10 mg Documented by: Quetiapine Fumarate (Quetiapine Fumarate 25 Mg Tablet) 75 mg PO BEDTIME [facility] Last Admin: 12/30/20 21:44 Dose: 75 mg Documented by: Thiamine HCl (Thiamine Hcl 100 Mg Tablet) 100 mg PO DAILY [facility] Last Admin: 12/31/20 08:29 Dose: 100 mg Documented by: Trazodone HCl (Trazodone Hcl 100 Mg Tablet) 100 mg PO BEDTIME [facility] Last Admin: 12/30/20 21:45 Dose: 100 mg Documented by: Vitamin D (Cholecalciferol (Vitamin D3) 25 Mcg Tablet) 50 mcg PO DAILY [facility] Last Admin: 12/31/20 08:29 Dose: 50 mcg Documented by: Allergies Allergies Allergy/AdvReac Type Severity Reaction Status Date / Time oseltamivir [From TAMIFLU] Allergy Unknown FELT LIKE Unverified 12/20/19 19:22 BUGS WERE ALL OVER ME . Sulfa (Sulfonamide Allergy Unknown HIVES Unverified 12/20/19 19:22 Antibiotics) [SULFA (SULFONAMIDE ANTIBIOTICS)] sulfamethoxazole Allergy Unknown HIVES Unverified 12/20/19 19:22 [From BACTRIM] trimethoprim [From BACTRIM] Allergy Unknown HIVES Unverified 12/20/19 19:22 Assessment & Plan Assessment & Plan (1) Recurrent major depression-severe: Status: Acute Code(s): F33.2 - Major depressive disorder, recurrent severe without psychotic features (2) Borderline personality disorder: Status: Acute Code(s): F60.3 - Borderline personality disorder (3) PTSD (post-traumatic stress disorder): Status: Acute Code(s): F43.10 - Post-traumatic stress disorder, unspecified (4) Suicidal ideation: Status: Acute Code(s): R45.851 - Suicidal ideations Assessment and Plan: continue home medications regimen. scheduled trazodone at HS as of 12/25. keep safe, CO started due to revelation of cheeking with plan to overdose on medications while in hospital. status changed to 1:1 as of 12/29 due to concern over pt's continued motivation and presumed ability to harm herself quickly and/or surreptitiously on the unit. support during adjustment time. Greater than 50% of the session was spent on counseling and/or coordination of care Reason for contiued inpatient stay Substantial Risk for: harm to self
[2020-12-31] MEDS: Acetaminophen 325 MG TABLET 650 MG PO (15:04)
[2020-12-31 18:00] VITALS: BP 135/77; PULSE 86; RESP 18; TEMP 36.8; O2SAT 97
[2020-12-31 20:33] VITALS: BP 135/77; PULSE 86
[2020-12-31] MEDS: Prazosin HCL 5 MG CAPSULE 10 MG PO (20:33)
[2020-12-31] MEDS: QUEtiapine Fumarate 25 MG TABLET 75 MG PO (20:34)
[2020-12-31] MEDS: traZODone HCL 100 MG TABLET PO (20:34)
[2021-01-01 06:00] VITALS: BP 127/74; PULSE 79; RESP 18; TEMP 36.8; O2SAT 98
[2021-01-01] MEDS: LORazepam 1 MG TABLET PO ×3 (08:22→21:10)
[2021-01-01] MEDS: Cholecalciferol (Vitamin D3) 25 MCG TABLET 50 MCG PO (08:22)
[2021-01-01] MEDS: Fluticasone Propionate Nasal 16 GM SPRAY 1 SPRAY NOSTRIL-B (08:22)
[2021-01-01] MEDS: Thiamine HCL 100 MG TABLET PO (08:22)
[2021-01-01] MEDS: Lithium Carbonate ER 300 MG TABLET.ER 600 MG PO ×2 (08:22→20:19)
[2021-01-01] MEDS: Amphetamine Mixed Salts 20 MG TABLET PO (08:22)
[2021-01-01] MEDS: Milk of Magnesia 30 ML ORAL.SUSP PO (12:57)
[2021-01-01] MEDS: Amphetamine Mixed Salts 10 MG TABLET PO (15:25)
[2021-01-01] MEDS: Docusate Sodium 100 MG CAPSULE PO (18:26)
--- NOTE | 2021-01-01 19:47 | P.PNPSI_ITS ---
Subjective Subjective Date of Service: 01/01/21 Reason For Visit: SI Interim History: PER SW report: ?Pt was upset and tearful during the meeting and reported that they were having intrusive thoughts of hurting another patient who has been harassing them on the unit. Pt stated that they would never actually act on those thoughts and are aware that they could likely be injured if they went after another patient, but pt reported feeling so fed up with the situation that they don't know what else to do.?? I evaluated the pt this afternoon and upon interview, they report there is a peer on the milieu who is ?bringing up all sorts of old trauma.? They report staff are supportive, ?taking it day by day.? Has current goal of ?getting me off 1:1? safety checks. Says their sx of grief ?comes in waves.? Feels ?inconsolable one minute and dissociated the next.? Has been in contact with the support group, [facility]. They ask about lithium increase, will redraw level as it was recently 1.07, Sandi states their level is normally 0.7. Continues to endorse suicidal ideation but denies intent. Sleep continues to be poor, says they have anxiety falling asleep because when they wake up, they remember the baby. 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 Reports nightmares less because of prazosin. Medication Compliance: Yes Side effects from medications: No Review of Systems Acute medical concerns: No Medical Review of Systems: unchanged Mental Status Exam Mental Status Exam Narrative: A&O. Well groomed, good hygiene, overweight. Poor eye contact, attentive. No Tics or Tremors. No abnormal involuntary movements. Calm, cooperative, engaged. Non-pressured speech, spontaneous with regular rate and rhythm, normal volume and prosody. No prolonged speech latency or dysarthria. M ood is ?depressed,? affect is congruent but calm. Endorses SI but denies intent. Denies SIB or HI upon inquiry. Denies A/VH or delusional thought content. Thoughts are coherent, organized. No known cognitive or memory impairment. Insight/ Judgment fair and adequate. Diagnostics Vital Signs (24Hr): Vital Signs - 24 hr 12/31/20 20:33 01/01/21 06:00 Temperature 98.3 F Pulse Rate 86 79 Respiratory Rate 18 Blood Pressure 135/77 127/74 Pulse Oximetry 98 Body Mass Index 40.3 Labs Results: 12/16/20 13:36 12/16/20 13:36 Medications Medications Current Medications Acetaminophen (Acetaminophen 325 Mg Tablet) 650 mg PO QID PRN PRN Reason: Pain Last Admin: 12/31/20 15:04 Dose: 650 mg Documented by: Al Hydroxide/Mg Hydroxide (Magnesium Hydrox/Alum Hydrox 30 Ml Oral.Susp) 30 ml PO Q6H PRN PRN Reason: Heartburn/Nausea Amphetamine/Dextroamphetamine (Amphetamine Mixed Salts 10 Mg Tablet) 10 mg PO DAILY@1400 [facility] Last Admin: 01/01/21 15:25 Dose: 10 mg Documented by: Amphetamine/Dextroamphetamine (Amphetamine Mixed Salts 20 Mg Tablet) 20 mg PO DAILY [facility] Last Admin: 01/01/21 08:22 Dose: 20 mg Documented by: Fluticasone Propionate (Fluticasone Propionate Nasal 16 Gm [place]) 1 spray NOSTRIL-B DAILY [facility] Last Admin: 01/01/21 08:22 Dose: 1 spray Documented by: Hydroxyzine HCl (Hydroxyzine Hcl 25 Mg Tablet) 25 mg PO Q6H PRN PRN Reason: Anxiety Last Admin: 12/28/20 16:26 Dose: 25 mg Documented by: [place] Carbonate ([place] Carbonate Er 300 Mg Tablet.Er) 600 mg PO BID [facility] Last Admin: 01/01/21 08:22 Dose: 600 mg Documented by: Lorazepam (Lorazepam 1 Mg Tablet) 1 mg PO TID PRN PRN Reason: anxiety Last Admin: 01/01/21 15:32 Dose: 1 mg Documented by: Magnesium Hydroxide (Milk Of Magnesia 30 Ml Oral.Susp) 30 ml PO DAILY PRN PRN Reason: Constipation Last Admin: 01/01/21 12:57 Dose: 30 ml Documented by: Nicotine Polacrilex (Nicotine Polacrilex 2 Mg Gum) 2 mg BUCCAL Q1H PRN PRN Reason: Nicotine Cravings Patient Own Med ( Desvenlafaxine Succinate [Pristiq] 100 Mg Tablet Extended Releas 1 each PO DAILY [facility] Last Admin: 01/01/21 08:22 Dose: 1 each Documented by: Prazosin HCl (Prazosin Hcl 5 Mg Capsule) 10 mg PO BEDTIME [facility]; Protocol Last Admin: 12/31/20 20:33 Dose: 10 mg Documented by: Quetiapine Fumarate (Quetiapine Fumarate 25 Mg Tablet) 75 mg PO BEDTIME [facility] Last Admin: 12/31/20 20:34 Dose: 75 mg Documented by: Thiamine HCl (Thiamine Hcl 100 Mg Tablet) 100 mg PO DAILY [facility] Last Admin: 01/01/21 08:22 Dose: 100 mg Documented by: Trazodone HCl (Trazodone Hcl 100 Mg Tablet) 100 mg PO BEDTIME [facility] Last Admin: 12/31/20 20:34 Dose: 100 mg Documented by: Vitamin D (Cholecalciferol (Vitamin D3) 25 Mcg Tablet) 50 mcg PO DAILY [facility] Last Admin: 01/01/21 08:22 Dose: 50 mcg Documented by: Allergies Allergies Allergy/AdvReac Type Severity Reaction Status Date / Time oseltamivir [From TAMIFLU] Allergy Unknown FELT LIKE Unverified 12/20/19 19:22 BUGS WERE ALL OVER ME . Sulfa (Sulfonamide Allergy Unknown HIVES Unverified 12/20/19 19:22 Antibiotics) [SULFA (SULFONAMIDE ANTIBIOTICS)] sulfamethoxazole Allergy Unknown HIVES Unverified 12/20/19 19:22 [From BACTRIM] trimethoprim [From BACTRIM] Allergy Unknown HIVES Unverified 12/20/19 19:22 Assessment & Plan Assessment & Plan (1) Recurrent major depression-severe: Status: Acute Code(s): F33.2 - Major depressive disorder, recurrent severe without psychotic features (2) Borderline personality disorder: Status: Acute Code(s): F60.3 - Borderline personality disorder (3) PTSD (post-traumatic stress disorder): Status: Acute Code(s): F43.10 - Post-traumatic stress disorder, unspecified (4) Suicidal ideation: Status: Acute Code(s): R45.851 - Suicidal ideations Assessment and Plan: continue home medications regimen. scheduled trazodone at HS as of 12/25. keep safe, CO started due to revelation of cheeking with plan to overdose on medications while in hospital. status changed to 1:1 as of 12/29 due to concern over pt's continued motivation and presumed ability to harm herself quickly and/or surreptitiously on the unit. support during adjustment time. 01/01: will re-draw lithium level, consider increasing lithium to target sx of depression and continued suicidal ideation. Greater than 50% of the session was spent on counseling and/or coordination of care Reason for contiued inpatient stay Substantial Risk for: harm to self and med/psych decompensation
[2021-01-01 20:00] VITALS: BP 131/71; PULSE 89; TEMP 36.8; O2SAT 95
[2021-01-01 20:19] VITALS: BP 110/66; PULSE 81
[2021-01-01] MEDS: Prazosin HCL 5 MG CAPSULE 10 MG PO (20:19)
[2021-01-01] MEDS: traZODone HCL 100 MG TABLET PO (20:19)
[2021-01-01] MEDS: QUEtiapine Fumarate 25 MG TABLET 75 MG PO (20:19)
[2021-01-02] MEDS: Amphetamine Mixed Salts 20 MG TABLET PO (08:24)
[2021-01-02] MEDS: Thiamine HCL 100 MG TABLET PO (08:24)
[2021-01-02] MEDS: Lithium Carbonate ER 300 MG TABLET.ER 600 MG PO ×2 (08:24→22:26)
[2021-01-02] MEDS: Cholecalciferol (Vitamin D3) 25 MCG TABLET 50 MCG PO (08:24)
[2021-01-02] MEDS: LORazepam 1 MG TABLET PO ×2 (08:24→22:26)
[2021-01-02] MEDS: Milk of Magnesia 30 ML ORAL.SUSP PO (08:25)
[2021-01-02] MEDS: Fluticasone Propionate Nasal 16 GM SPRAY 1 SPRAY NOSTRIL-B (08:29)
[2021-01-02 08:37] LABS: Lithium 1.02 mmol/L (0.60-1.20)
[2021-01-02] MEDS: Amphetamine Mixed Salts 10 MG TABLET PO (14:16)
--- NOTE | 2021-01-02 16:26 | P.PNPSI_ITS ---
Subjective Subjective Date of Service: 01/02/21 Reason For Visit: SI Interim History: pt observed seated in the milieu with 1:1 staff, appearing to smile and interact. per FRANCISCA Hwangon, Still struggling a lot, but feeling like they?re noticing little moments that they feel slightly more hopeful and those moments are helping. We talked about doing a trial on Tuesday of being off 1:1 for a few hours in the morning to see how they feel, because they?re unsure at this point if they can be safe but are wanting to get to a point where they can be off 1:1. per staff, 1:1 continues. has been the target of peer's bullying behaviors. 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 anx 09/11. i just want to but i'm laughing more. dep 01/11. working to get off of 1:1. + SI. Mental Status Exam Mental Status Exam Narrative: per collateral from , continues to have SI. observed in group seated, calm, flexible affect. Diagnostics Vital Signs (24Hr): Vital Signs - 24 hr 01/01/21 20:00 01/01/21 20:19 Temperature 98.2 F Pulse Rate 89 81 Blood Pressure 131/71 110/66 Pulse Oximetry 95 Body Mass Index 40.3 Labs Results: 12/16/20 13:36 12/16/20 13:36 Labs: Laboratory Results - last 48 hr 01/02/21 08:10 [place] 1.02 Medications Medications Current Medications Acetaminophen (Acetaminophen 325 Mg Tablet) 650 mg PO QID PRN PRN Reason: Pain Last Admin: 12/31/20 15:04 Dose: 650 mg Documented by: Al Hydroxide/Mg Hydroxide (Magnesium Hydrox/Alum Hydrox 30 Ml Oral.Susp) 30 ml PO Q6H PRN PRN Reason: Heartburn/Nausea Amphetamine/Dextroamphetamine (Amphetamine Mixed Salts 10 Mg Tablet) 10 mg PO DAILY@1400 [facility] Last Admin: 01/02/21 14:16 Dose: 10 mg Documented by: Amphetamine/Dextroamphetamine (Amphetamine Mixed Salts 20 Mg Tablet) 20 mg PO DAILY [facility] Last Admin: 01/02/21 08:24 Dose: 20 mg Documented by: Docusate Sodium (Docusate Sodium 100 Mg Capsule) 100 mg PO BEDTIME PRN PRN Reason: Constipation Fluticasone Propionate (Fluticasone Propionate Nasal 16 Gm [place]) 1 spray NOSTRIL-B DAILY [facility] Last Admin: 01/02/21 08:29 Dose: 1 spray Documented by: Hydroxyzine HCl (Hydroxyzine Hcl 25 Mg Tablet) 25 mg PO Q6H PRN PRN Reason: Anxiety Last Admin: 12/28/20 16:26 Dose: 25 mg Documented by: [place] Carbonate ([place] Carbonate Er 300 Mg Tablet.Er) 600 mg PO BID [facility] Last Admin: 01/02/21 08:24 Dose: 600 mg Documented by: Lorazepam (Lorazepam 1 Mg Tablet) 1 mg PO TID PRN PRN Reason: anxiety Last Admin: 01/02/21 08:24 Dose: 1 mg Documented by: Magnesium Hydroxide (Milk Of Magnesia 30 Ml Oral.Susp) 30 ml PO DAILY PRN PRN Reason: Constipation Last Admin: 01/02/21 08:25 Dose: 30 ml Documented by: Nicotine Polacrilex (Nicotine Polacrilex 2 Mg Gum) 2 mg BUCCAL Q1H PRN PRN Reason: Nicotine Cravings Patient Own Med ( Desvenlafaxine Succinate [Pristiq] 100 Mg Tablet Extended Releas 1 each PO DAILY [facility] Last Admin: 01/02/21 08:29 Dose: 1 each Documented by: Prazosin HCl (Prazosin Hcl 5 Mg Capsule) 10 mg PO BEDTIME [facility]; Protocol Last Admin: 01/01/21 20:19 Dose: 10 mg Documented by: Quetiapine Fumarate (Quetiapine Fumarate 25 Mg Tablet) 75 mg PO BEDTIME [facility] Last Admin: 01/01/21 20:19 Dose: 75 mg Documented by: Thiamine HCl (Thiamine Hcl 100 Mg Tablet) 100 mg PO DAILY [facility] Last Admin: 01/02/21 08:24 Dose: 100 mg Documented by: Trazodone HCl (Trazodone Hcl 100 Mg Tablet) 100 mg PO BEDTIME [facility] Last Admin: 01/01/21 20:19 Dose: 100 mg Documented by: Vitamin D (Cholecalciferol (Vitamin D3) 25 Mcg Tablet) 50 mcg PO DAILY [facility] Last Admin: 01/02/21 08:24 Dose: 50 mcg Documented by: Allergies Allergies Allergy/AdvReac Type Severity Reaction Status Date / Time oseltamivir [From TAMIFLU] Allergy Unknown FELT LIKE Unverified 12/20/19 19:22 BUGS WERE ALL OVER ME . Sulfa (Sulfonamide Allergy Unknown HIVES Unverified 12/20/19 19:22 Antibiotics) [SULFA (SULFONAMIDE ANTIBIOTICS)] sulfamethoxazole Allergy Unknown HIVES Unverified 12/20/19 19:22 [From BACTRIM] trimethoprim [From BACTRIM] Allergy Unknown HIVES Unverified 12/20/19 19:22 Assessment & Plan Assessment & Plan (1) Recurrent major depression-severe: Status: Acute Code(s): F33.2 - Major depressive disorder, recurrent severe without psychotic features (2) Borderline personality disorder: Status: Acute Code(s): F60.3 - Borderline personality disorder (3) PTSD (post-traumatic stress disorder): Status: Acute Code(s): F43.10 - Post-traumatic stress disorder, unspecified (4) Suicidal ideation: Status: Acute Code(s): R45.851 - Suicidal ideations Assessment and Plan: continue home medications regimen. scheduled trazodone at HS as of 12/25. keep safe, CO started due to revelation of cheeking with plan to overdose on medications while in hospital. status changed to 1:1 as of 12/29 due to concern over pt's continued motivation and presumed ability to harm herself quickly and/or surreptitiously on the unit. support during adjustment time. Greater than 50% of the session was spent on counseling and/or coordination of care Reason for contiued inpatient stay Substantial Risk for: harm to self
[2021-01-02 22:26] VITALS: BP 136/74; PULSE 85
[2021-01-02] MEDS: traZODone HCL 100 MG TABLET PO (22:26)
[2021-01-02] MEDS: QUEtiapine Fumarate 25 MG TABLET 75 MG PO (22:26)
[2021-01-02] MEDS: Prazosin HCL 5 MG CAPSULE 10 MG PO (22:26)
[2021-01-02 22:31] VITALS: TEMP 36.4; O2SAT 95
[2021-01-03] MEDS: Fluticasone Propionate Nasal 16 GM SPRAY 1 SPRAY NOSTRIL-B (08:18)
[2021-01-03] MEDS: LORazepam 1 MG TABLET PO ×3 (08:20→22:08)
[2021-01-03] MEDS: Lithium Carbonate ER 300 MG TABLET.ER 600 MG PO ×2 (08:20→22:07)
[2021-01-03] MEDS: Thiamine HCL 100 MG TABLET PO (08:21)
[2021-01-03] MEDS: Amphetamine Mixed Salts 20 MG TABLET PO (08:21)
[2021-01-03] MEDS: Cholecalciferol (Vitamin D3) 25 MCG TABLET 50 MCG PO (08:21)
[2021-01-03 08:50] VITALS: BP 130/73; PULSE 83; RESP 16; TEMP 36.5; O2SAT 96
[2021-01-03] MEDS: Milk of Magnesia 30 ML ORAL.SUSP PO (09:36)
--- NOTE | 2021-01-03 14:10 | P.PNPSI_ITS ---
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 appeared to be smiling subtly, calm. per staff, visible in the milieu, laughing, joking. ran out of erynstceline from home, has nobody to bring it in for her. Mental Status Exam Mental Status Exam Narrative: observed in milieu, seated, calm, flexible affect. Diagnostics Vital Signs (24Hr): Vital Signs - 24 hr 01/02/21 22:26 01/02/21 22:31 01/03/21 08:50 Temperature 97.5 F 97.7 F Pulse Rate 85 83 Respiratory Rate 16 Blood Pressure 136/74 130/73 Pulse Oximetry 95 96 Body Mass Index 40.3 Labs Results: 12/16/20 13:36 12/16/20 13:36 Labs: Laboratory Results - last 48 hr 01/02/21 08:10 [place] 1.02 Medications Medications Current Medications Acetaminophen (Acetaminophen 325 Mg Tablet) 650 mg PO QID PRN PRN Reason: Pain Last Admin: 12/31/20 15:04 Dose: 650 mg Documented by: Al Hydroxide/Mg Hydroxide (Magnesium Hydrox/Alum Hydrox 30 Ml Oral.Susp) 30 ml PO Q6H PRN PRN Reason: Heartburn/Nausea Amphetamine/Dextroamphetamine (Amphetamine Mixed Salts 10 Mg Tablet) 10 mg PO DAILY@1400 [facility] Last Admin: 01/02/21 14:16 Dose: 10 mg Documented by: Amphetamine/Dextroamphetamine (Amphetamine Mixed Salts 20 Mg Tablet) 20 mg PO DAILY [facility] Last Admin: 01/03/21 08:21 Dose: 20 mg Documented by: Docusate Sodium (Docusate Sodium 100 Mg Capsule) 100 mg PO BEDTIME PRN PRN Reason: Constipation Fluticasone Propionate (Fluticasone Propionate Nasal 16 Gm [place]) 1 spray NOSTRIL-B DAILY [facility] Last Admin: 01/03/21 08:18 Dose: 1 spray Documented by: Hydroxyzine HCl (Hydroxyzine Hcl 25 Mg Tablet) 25 mg PO Q6H PRN PRN Reason: Anxiety Last Admin: 12/28/20 16:26 Dose: 25 mg Documented by: [place] Carbonate ([place] Carbonate Er 300 Mg Tablet.Er) 600 mg PO BID [facility] Last Admin: 01/03/21 08:20 Dose: 600 mg Documented by: Lorazepam (Lorazepam 1 Mg Tablet) 1 mg PO TID PRN PRN Reason: anxiety Last Admin: 01/03/21 08:20 Dose: 1 mg Documented by: Magnesium Hydroxide (Milk Of Magnesia 30 Ml Oral.Susp) 30 ml PO DAILY PRN PRN Reason: Constipation Last Admin: 01/03/21 09:36 Dose: 30 ml Documented by: Nicotine Polacrilex (Nicotine Polacrilex 2 Mg Gum) 2 mg BUCCAL Q1H PRN PRN Reason: Nicotine Cravings Patient Own Med ( Desvenlafaxine Succinate [Pristiq] 100 Mg Tablet Extended Releas 1 each PO DAILY [facility] Last Admin: 01/03/21 08:18 Dose: 1 each Documented by: Prazosin HCl (Prazosin Hcl 5 Mg Capsule) 10 mg PO BEDTIME [facility]; Protocol Last Admin: 01/02/21 22:26 Dose: 10 mg Documented by: Quetiapine Fumarate (Quetiapine Fumarate 25 Mg Tablet) 75 mg PO BEDTIME [facility] Last Admin: 01/02/21 22:26 Dose: 75 mg Documented by: Thiamine HCl (Thiamine Hcl 100 Mg Tablet) 100 mg PO DAILY [facility] Last Admin: 01/03/21 08:21 Dose: 100 mg Documented by: Trazodone HCl (Trazodone Hcl 100 Mg Tablet) 100 mg PO BEDTIME [facility] Last Admin: 01/02/21 22:26 Dose: 100 mg Documented by: Vitamin D (Cholecalciferol (Vitamin D3) 25 Mcg Tablet) 50 mcg PO DAILY [facility] Last Admin: 01/03/21 08:21 Dose: 50 mcg Documented by: Allergies Allergies Allergy/AdvReac Type Severity Reaction Status Date / Time oseltamivir [From TAMIFLU] Allergy Unknown FELT LIKE Unverified 12/20/19 19:22 BUGS WERE ALL OVER ME . Sulfa (Sulfonamide Allergy Unknown HIVES Unverified 12/20/19 19:22 Antibiotics) [SULFA (SULFONAMIDE ANTIBIOTICS)] sulfamethoxazole Allergy Unknown HIVES Unverified 12/20/19 19:22 [From BACTRIM] trimethoprim [From BACTRIM] Allergy Unknown HIVES Unverified 12/20/19 19:22 Assessment & Plan Assessment & Plan (1) Recurrent major depression-severe: Status: Acute Code(s): F33.2 - Major depressive disorder, recurrent severe without psychotic features (2) Borderline personality disorder: Status: Acute Code(s): F60.3 - Borderline personality disorder (3) PTSD (post-traumatic stress disorder): Status: Acute Code(s): F43.10 - Post-traumatic stress disorder, unspecified (4) Suicidal ideation: Status: Acute Code(s): R45.851 - Suicidal ideations Assessment and Plan: continue home medications regimen. scheduled trazodone at HS as of 12/25. keep safe, CO started due to revelation of cheeking with plan to overdose on medications while in hospital. status changed to 1:1 as of 12/29 due to concern over pt's continued motivation and presumed ability to harm herself quickly and/or surreptitiously on the unit. support during adjustment time. Greater than 50% of the session was spent on counseling and/or coordination of care Reason for contiued inpatient stay Substantial Risk for: harm to self
[2021-01-03] MEDS: Amphetamine Mixed Salts 10 MG TABLET PO (14:33)
[2021-01-03 18:00] VITALS: BP 120/74; PULSE 74; RESP 18; TEMP 36.4; O2SAT 98
[2021-01-03] MEDS: hydrOXYzine HCL 25 MG TABLET PO (18:24)
[2021-01-03 22:04] VITALS: BP 120/75; PULSE 74
[2021-01-03] MEDS: Prazosin HCL 5 MG CAPSULE 10 MG PO (22:04)
[2021-01-03] MEDS: QUEtiapine Fumarate 25 MG TABLET 75 MG PO (22:07)
[2021-01-03] MEDS: traZODone HCL 100 MG TABLET PO (22:12)
[2021-01-04 08:55] VITALS: BP 123/65; PULSE 80; RESP 17; TEMP 36.7; O2SAT 95
[2021-01-04] MEDS: Cholecalciferol (Vitamin D3) 25 MCG TABLET 50 MCG PO (08:57)
[2021-01-04] MEDS: Amphetamine Mixed Salts 20 MG TABLET PO (08:57)
[2021-01-04] MEDS: Thiamine HCL 100 MG TABLET PO (08:57)
[2021-01-04] MEDS: Lithium Carbonate ER 300 MG TABLET.ER 600 MG PO ×2 (08:57→20:41)
[2021-01-04] MEDS: LORazepam 1 MG TABLET PO ×2 (08:57→20:41)
[2021-01-04] MEDS: Fluticasone Propionate Nasal 16 GM SPRAY 1 SPRAY NOSTRIL-B (09:08)
[2021-01-04] MEDS: Docusate Sodium 100 MG CAPSULE PO (11:26)
--- NOTE | 2021-01-04 17:14 | P.PNPSI_ITS ---
Subjective Subjective Date of Service: 01/04/21 Reason For Visit: SI Interim History: pt observed in the milieu with their 1:1, together seated at a table, conversing. per staff, pt had a good day yesterday. however at 3 pm disclosed SI and that they had secreted some gloves in their room which they had been considering using to harm themselves. labile and tearful in the evening, gave up the gloves. no other notable events or behaviors. Mental Status Exam Mental Status Exam Narrative: observed in milieu, seated, calm, flexible affect. per collateral from staffing program manager, +SI with plan and actions taken to effect that plan on the unit. Diagnostics Vital Signs (24Hr): Vital Signs - 24 hr 01/03/21 18:00 01/03/21 22:04 01/04/21 08:55 Temperature 97.6 F 98.0 F Pulse Rate 74 74 80 Respiratory Rate 18 17 Blood Pressure 120/74 120/75 123/65 Pulse Oximetry 98 95 Body Mass Index 40.3 Labs Results: 12/16/20 13:36 12/16/20 13:36 Medications Medications Current Medications Acetaminophen (Acetaminophen 325 Mg Tablet) 650 mg PO QID PRN PRN Reason: Pain Last Admin: 12/31/20 15:04 Dose: 650 mg Documented by: Al Hydroxide/Mg Hydroxide (Magnesium Hydrox/Alum Hydrox 30 Ml Oral.Susp) 30 ml PO Q6H PRN PRN Reason: Heartburn/Nausea Amphetamine/Dextroamphetamine (Amphetamine Mixed Salts 10 Mg Tablet) 10 mg PO DAILY@1400 [facility] Last Admin: 01/04/21 13:34 Dose: Not Given Documented by: Amphetamine/Dextroamphetamine (Amphetamine Mixed Salts 20 Mg Tablet) 20 mg PO DAILY [facility] Last Admin: 01/04/21 08:57 Dose: 20 mg Documented by: Docusate Sodium (Docusate Sodium 100 Mg Capsule) 100 mg PO DAILY PRN PRN Reason: Constipation Last Admin: 01/04/21 11:26 Dose: 100 mg Documented by: Fluticasone Propionate (Fluticasone Propionate Nasal 16 Gm [place]) 1 spray NOSTRIL-B DAILY [facility] Last Admin: 01/04/21 09:08 Dose: 1 spray Documented by: Hydroxyzine HCl (Hydroxyzine Hcl 25 Mg Tablet) 25 mg PO Q6H PRN PRN Reason: Anxiety Last Admin: 01/03/21 18:24 Dose: 25 mg Documented by: [place] Carbonate ([place] Carbonate Er 300 Mg Tablet.Er) 600 mg PO BID [facility] Last Admin: 01/04/21 08:57 Dose: 600 mg Documented by: Lorazepam (Lorazepam 1 Mg Tablet) 1 mg PO TID PRN PRN Reason: anxiety Last Admin: 01/04/21 08:57 Dose: 1 mg Documented by: Magnesium Hydroxide (Milk Of Magnesia 30 Ml Oral.Susp) 30 ml PO DAILY PRN PRN Reason: Constipation Last Admin: 01/03/21 09:36 Dose: 30 ml Documented by: Nicotine Polacrilex (Nicotine Polacrilex 2 Mg Gum) 2 mg BUCCAL Q1H PRN PRN Reason: Nicotine Cravings Patient Own Med ( Desvenlafaxine Succinate [Pristiq] 100 Mg Tablet Extended Releas 1 each PO DAILY [facility] Last Admin: 01/04/21 11:00 Dose: 1 each Documented by: Prazosin HCl (Prazosin Hcl 5 Mg Capsule) 10 mg PO BEDTIME [facility]; Protocol Last Admin: 01/03/21 22:04 Dose: 10 mg Documented by: Quetiapine Fumarate (Quetiapine Fumarate 25 Mg Tablet) 75 mg PO BEDTIME [facility] Last Admin: 01/03/21 22:07 Dose: 75 mg Documented by: Thiamine HCl (Thiamine Hcl 100 Mg Tablet) 100 mg PO DAILY [facility] Last Admin: 01/04/21 08:57 Dose: 100 mg Documented by: Trazodone HCl (Trazodone Hcl 100 Mg Tablet) 100 mg PO BEDTIME [facility] Last Admin: 01/03/21 22:12 Dose: 100 mg Documented by: Vitamin D (Cholecalciferol (Vitamin D3) 25 Mcg Tablet) 50 mcg PO DAILY [facility] Last Admin: 01/04/21 08:57 Dose: 50 mcg Documented by: Allergies Allergies Allergy/AdvReac Type Severity Reaction Status Date / Time oseltamivir [From TAMIFLU] Allergy Unknown FELT LIKE Unverified 12/20/19 19:22 BUGS WERE ALL OVER ME . Sulfa (Sulfonamide Allergy Unknown HIVES Unverified 12/20/19 19:22 Antibiotics) [SULFA (SULFONAMIDE ANTIBIOTICS)] sulfamethoxazole Allergy Unknown HIVES Unverified 12/20/19 19:22 [From BACTRIM] trimethoprim [From BACTRIM] Allergy Unknown HIVES Unverified 12/20/19 19:22 Assessment & Plan Assessment & Plan (1) Recurrent major depression-severe: Status: Acute Code(s): F33.2 - Major depressive disorder, recurrent severe without psychotic features (2) Borderline personality disorder: Status: Acute Code(s): F60.3 - Borderline personality disorder (3) PTSD (post-traumatic stress disorder): Status: Acute Code(s): F43.10 - Post-traumatic stress disorder, unspecified (4) Suicidal ideation: Status: Acute Code(s): R45.851 - Suicidal ideations Assessment and Plan: continue home medications regimen. scheduled trazodone at HS as of 12/25. keep safe, CO started due to revelation of cheeking with plan to overdose on medications while in hospital. status changed to 1:1 as of 12/29 due to concern over pt's continued motivation and presumed ability to harm herself quickly and/or surreptitiously on the unit. support during adjustment time. Greater than 50% of the session was spent on counseling and/or coordination of care Reason for contiued inpatient stay Substantial Risk for: harm to self
[2021-01-04 20:25] VITALS: BP 119/75; PULSE 84; RESP 16; TEMP 36.7; O2SAT 97
[2021-01-04 20:39] VITALS: BP 119/75; PULSE 84
[2021-01-04] MEDS: Prazosin HCL 5 MG CAPSULE 10 MG PO (20:39)
[2021-01-04] MEDS: QUEtiapine Fumarate 25 MG TABLET 75 MG PO (20:40)
[2021-01-04] MEDS: traZODone HCL 100 MG TABLET PO (20:40)
[2021-01-05] MEDS: Thiamine HCL 100 MG TABLET PO (08:14)
[2021-01-05] MEDS: Lithium Carbonate ER 300 MG TABLET.ER 600 MG PO ×2 (08:14→20:05)
[2021-01-05] MEDS: Amphetamine Mixed Salts 20 MG TABLET PO (08:14)
[2021-01-05] MEDS: Cholecalciferol (Vitamin D3) 25 MCG TABLET 50 MCG PO (08:14)
[2021-01-05] MEDS: Fluticasone Propionate Nasal 16 GM SPRAY 1 SPRAY NOSTRIL-B (08:15)
[2021-01-05] MEDS: LORazepam 1 MG TABLET PO ×3 (08:16→20:05)
--- NOTE | 2021-01-05 15:04 | P.PNPSI_ITS ---
Subjective Subjective Date of Service: 01/05/21 Reason For Visit: SI Interim History: pt observed in the milieu, seated and interacting with 1:1 staff. per staff, spending time crafting. panic attack yesterday due to noise level on the unit. SI with intrusive thoughts. difficulty sleeping, asked for trazodone increase to 150 mg at bedtime yesterday, which was ordered. slept after increased dose of trazodone. no other notable events or behaviors. Mental Status Exam Mental Status Exam Narrative: observed in milieu, seated, calm, interacting with 1:1 staff. per collateral from balance staff inspector, +SI. Diagnostics Vital Signs (24Hr): Vital Signs - 24 hr 01/04/21 20:25 01/04/21 20:39 Temperature 98.1 F Pulse Rate 84 84 Respiratory Rate 16 Blood Pressure 119/75 119/75 Pulse Oximetry 97 Body Mass Index 40.3 Labs Results: 12/16/20 13:36 12/16/20 13:36 Medications Medications Current Medications Acetaminophen (Acetaminophen 325 Mg Tablet) 650 mg PO QID PRN PRN Reason: Pain Last Admin: 12/31/20 15:04 Dose: 650 mg Documented by: Al Hydroxide/Mg Hydroxide (Magnesium Hydrox/Alum Hydrox 30 Ml Oral.Susp) 30 ml PO Q6H PRN PRN Reason: Heartburn/Nausea Amphetamine/Dextroamphetamine (Amphetamine Mixed Salts 10 Mg Tablet) 10 mg PO DAILY@1400 [facility] Last Admin: 01/04/21 13:34 Dose: Not Given Documented by: Amphetamine/Dextroamphetamine (Amphetamine Mixed Salts 20 Mg Tablet) 20 mg PO DAILY [facility] Last Admin: 01/05/21 08:14 Dose: 20 mg Documented by: Docusate Sodium (Docusate Sodium 100 Mg Capsule) 100 mg PO DAILY PRN PRN Reason: Constipation Last Admin: 01/04/21 11:26 Dose: 100 mg Documented by: Fluticasone Propionate (Fluticasone Propionate Nasal 16 Gm [place]) 1 spray NOSTRIL-B DAILY [facility] Last Admin: 01/05/21 08:15 Dose: 1 spray Documented by: Hydroxyzine HCl (Hydroxyzine Hcl 25 Mg Tablet) 25 mg PO Q6H PRN PRN Reason: Anxiety Last Admin: 01/03/21 18:24 Dose: 25 mg Documented by: [place] Carbonate ([place] Carbonate Er 300 Mg Tablet.Er) 600 mg PO BID [facility] Last Admin: 01/05/21 08:14 Dose: 600 mg Documented by: Lorazepam (Lorazepam 1 Mg Tablet) 1 mg PO TID PRN PRN Reason: anxiety Last Admin: 01/05/21 08:16 Dose: 1 mg Documented by: Magnesium Hydroxide (Milk Of Magnesia 30 Ml Oral.Susp) 30 ml PO DAILY PRN PRN Reason: Constipation Last Admin: 01/03/21 09:36 Dose: 30 ml Documented by: Nicotine Polacrilex (Nicotine Polacrilex 2 Mg Gum) 2 mg BUCCAL Q1H PRN PRN Reason: Nicotine Cravings Patient Own Med ( Desvenlafaxine Succinate [Pristiq] 100 Mg Tablet Extended Releas 1 each PO DAILY [facility] Last Admin: 01/05/21 08:15 Dose: 1 each Documented by: Prazosin HCl (Prazosin Hcl 5 Mg Capsule) 10 mg PO BEDTIME [facility]; Protocol Last Admin: 01/04/21 20:39 Dose: 10 mg Documented by: Quetiapine Fumarate (Quetiapine Fumarate 25 Mg Tablet) 75 mg PO BEDTIME [facility] Last Admin: 01/04/21 20:40 Dose: 75 mg Documented by: Thiamine HCl (Thiamine Hcl 100 Mg Tablet) 100 mg PO DAILY [facility] Last Admin: 01/05/21 08:14 Dose: 100 mg Documented by: Trazodone HCl (Trazodone Hcl 50 Mg Tablet) 150 mg PO BEDTIME [facility] Vitamin D (Cholecalciferol (Vitamin D3) 25 Mcg Tablet) 50 mcg PO DAILY [facility] Last Admin: 01/05/21 08:14 Dose: 50 mcg Documented by: Allergies Allergies Allergy/AdvReac Type Severity Reaction Status Date / Time oseltamivir [From TAMIFLU] Allergy Unknown FELT LIKE Unverified 12/20/19 19:22 BUGS WERE ALL OVER ME . Sulfa (Sulfonamide Allergy Unknown HIVES Unverified 12/20/19 19:22 Antibiotics) [SULFA (SULFONAMIDE ANTIBIOTICS)] sulfamethoxazole Allergy Unknown HIVES Unverified 12/20/19 19:22 [From BACTRIM] trimethoprim [From BACTRIM] Allergy Unknown HIVES Unverified 12/20/19 19:22 Assessment & Plan Assessment & Plan (1) Recurrent major depression-severe: Status: Acute Code(s): F33.2 - Major depressive disorder, recurrent severe without psychotic features (2) Borderline personality disorder: Status: Acute Code(s): F60.3 - Borderline personality disorder (3) PTSD (post-traumatic stress disorder): Status: Acute Code(s): F43.10 - Post-traumatic stress disorder, unspecified (4) Suicidal ideation: Status: Acute Code(s): R45.851 - Suicidal ideations Assessment and Plan: continue home medications regimen. scheduled trazodone at HS as of 12/25. keep safe, CO started due to revelation of cheeking with plan to overdose on medications while in hospital. status changed to 1:1 as of 12/29 due to concern over pt's continued motivation and presumed ability to harm herself quickly and/or surreptitiously on the unit. support during adjustment time. working toward DC of 1:1 staffing. Greater than 50% of the session was spent on counseling and/or coordination of care Reason for contiued inpatient stay Substantial Risk for: harm to self
[2021-01-05 18:00] VITALS: BP 137/63; PULSE 80; RESP 18; TEMP 36.7; O2SAT 98
[2021-01-05] MEDS: hydrOXYzine HCL 25 MG TABLET PO (18:11)
[2021-01-05 20:04] VITALS: BP 137/63; PULSE 80
[2021-01-05] MEDS: Acetaminophen 325 MG TABLET 650 MG PO (20:04)
[2021-01-05] MEDS: Prazosin HCL 5 MG CAPSULE 10 MG PO (20:04)
[2021-01-05] MEDS: traZODone HCL 50 MG TABLET 150 MG PO (20:05)
[2021-01-05] MEDS: QUEtiapine Fumarate 25 MG TABLET 75 MG PO (20:05)
[2021-01-06 08:30] VITALS: BP 111/70; PULSE 88; RESP 18; TEMP 36.7; O2SAT 97
[2021-01-06] MEDS: Cholecalciferol (Vitamin D3) 25 MCG TABLET 50 MCG PO (08:36)
[2021-01-06] MEDS: Amphetamine Mixed Salts 20 MG TABLET PO (08:36)
[2021-01-06] MEDS: Thiamine HCL 100 MG TABLET PO (08:36)
[2021-01-06] MEDS: Lithium Carbonate ER 300 MG TABLET.ER 600 MG PO ×2 (08:36→22:08)
[2021-01-06] MEDS: Acetaminophen 325 MG TABLET 650 MG PO ×2 (08:56→21:12)
[2021-01-06] MEDS: Fluticasone Propionate Nasal 16 GM SPRAY 1 SPRAY NOSTRIL-B (08:57)
[2021-01-06] MEDS: LORazepam 1 MG TABLET PO ×2 (08:57→22:08)
--- NOTE | 2021-01-06 11:12 | HO.PSYCHPN ---
Subjective Subjective Date of Service: 01/06/21 Reason For Visit: SI Interim History: pt observed in the milieu with 1:1 staff and in group very briefly. per FRANCISCA Ambrose: They have had a difficult few days and feel that now that [manic peer] has settled and the unit feels a little safer to them, the grief is hitting really hard. They described the grief as a burning in their stomach that makes them feel like they will implode and that they need to be with the baby. They are feeling hopeless about ever getting better and are unsure if they will ever get to a point of not feeling suicidal. We talked about making small, attainable goals, such as commuting to staying alive for two weeks after discharge in order to complete PHP, and then on a weekly basis to get to therapy sessions. They feel that might be more doable and identified these therapeutic relationships as motivators not to commit suicide due to not wanting to hurt them. We also talked about a trial of being off 1:1, which we are going to do tomorrow from 7-10am. They will be on 1:1 for the rest of the day but we?ll check in about how those few hours go and make a plan from there. per staff, social with peers. attending groups. depression, passive SI. grief from loss of baby. ativan PRN, tylenol for elbow pain. received new stickerbooks... no other notable events or behaviors. Mental Status Exam Mental Status Exam Narrative: observed in milieu, seated, calm, interacting with 1:1 staff. per collateral from RN and FRANCISCA staff, +SI. Diagnostics Vital Signs (24Hr): Vital Signs - 24 hr 01/05/21 18:00 01/05/21 20:04 01/06/21 08:30 Temperature 98.1 F 98.0 F Pulse Rate 80 80 88 Respiratory Rate 18 18 Blood Pressure 137/63 137/63 111/70 Pulse Oximetry 98 97 Body Mass Index 40.3 Labs Results: 12/16/20 13:36 12/16/20 13:36 Medications Medications Current Medications Acetaminophen (Acetaminophen 325 Mg Tablet) 650 mg PO QID PRN PRN Reason: Pain Last Admin: 01/06/21 08:56 Dose: 650 mg Documented by: [place] Hydroxide/Mg Hydroxide (Magnesium Hydrox/Alum Hydrox 30 Ml Oral.Susp) 30 ml PO Q6H PRN PRN Reason: Heartburn/Nausea Amphetamine/Dextroamphetamine (Amphetamine Mixed Salts 10 Mg Tablet) 10 mg PO DAILY@1400 [facility] Last Admin: 01/05/21 16:01 Dose: Not Given Documented by: Amphetamine/Dextroamphetamine (Amphetamine Mixed Salts 20 Mg Tablet) 20 mg PO DAILY [facility] Last Admin: 01/06/21 08:36 Dose: 20 mg Documented by: Docusate Sodium (Docusate Sodium 100 Mg Capsule) 100 mg PO DAILY PRN PRN Reason: Constipation Last Admin: 01/04/21 11:26 Dose: 100 mg Documented by: Fluticasone Propionate (Fluticasone Propionate Nasal 16 Gm [place]) 1 spray NOSTRIL-B DAILY [facility] Last Admin: 01/06/21 08:57 Dose: 1 spray Documented by: Hydroxyzine HCl (Hydroxyzine Hcl 25 Mg Tablet) 25 mg PO Q6H PRN PRN Reason: Anxiety Last Admin: 01/05/21 18:11 Dose: 25 mg Documented by: [place] Carbonate ([place] Carbonate Er 300 Mg Tablet.Er) 600 mg PO BID [facility] Last Admin: 01/06/21 08:36 Dose: 600 mg Documented by: Lorazepam (Lorazepam 1 Mg Tablet) 1 mg PO TID PRN PRN Reason: anxiety Last Admin: 01/06/21 08:57 Dose: 1 mg Documented by: Magnesium Hydroxide (Milk Of Magnesia 30 Ml Oral.Susp) 30 ml PO DAILY PRN PRN Reason: Constipation Last Admin: 01/03/21 09:36 Dose: 30 ml Documented by: Nicotine Polacrilex (Nicotine Polacrilex 2 Mg Gum) 2 mg BUCCAL Q1H PRN PRN Reason: Nicotine Cravings Patient Own Med ( Desvenlafaxine Succinate [Pristiq] 100 Mg Tablet Extended Releas 1 each PO DAILY [facility] Last Admin: 01/06/21 08:57 Dose: 1 each Documented by: Prazosin HCl (Prazosin Hcl 5 Mg Capsule) 10 mg PO BEDTIME [facility]; Protocol Last Admin: 01/05/21 20:04 Dose: 10 mg Documented by: Quetiapine Fumarate (Quetiapine Fumarate 25 Mg Tablet) 75 mg PO BEDTIME [facility] Last Admin: 01/05/21 20:05 Dose: 75 mg Documented by: Thiamine HCl (Thiamine Hcl 100 Mg Tablet) 100 mg PO DAILY [facility] Last Admin: 01/06/21 08:36 Dose: 100 mg Documented by: Trazodone HCl (Trazodone Hcl 50 Mg Tablet) 150 mg PO BEDTIME [facility] Last Admin: 01/05/21 20:05 Dose: 150 mg Documented by: Vitamin D (Cholecalciferol (Vitamin D3) 25 Mcg Tablet) 50 mcg PO DAILY [facility] Last Admin: 01/06/21 08:36 Dose: 50 mcg Documented by: Allergies Allergies Allergy/AdvReac Type Severity Reaction Status Date / Time oseltamivir [From TAMIFLU] Allergy Unknown FELT LIKE Unverified 12/20/19 19:22 BUGS WERE ALL OVER ME . Sulfa (Sulfonamide Allergy Unknown HIVES Unverified 12/20/19 19:22 Antibiotics) [SULFA (SULFONAMIDE ANTIBIOTICS)] sulfamethoxazole Allergy Unknown HIVES Unverified 12/20/19 19:22 [From BACTRIM] trimethoprim [From BACTRIM] Allergy Unknown HIVES Unverified 12/20/19 19:22 Assessment & Plan Assessment & Plan (1) Recurrent major depression-severe: Status: Acute Code(s): F33.2 - Major depressive disorder, recurrent severe without psychotic features (2) Borderline personality disorder: Status: Acute Code(s): F60.3 - Borderline personality disorder (3) PTSD (post-traumatic stress disorder): Status: Acute Code(s): F43.10 - Post-traumatic stress disorder, unspecified (4) Suicidal ideation: Status: Acute Code(s): R45.851 - Suicidal ideations Assessment and Plan: continue home medications regimen. scheduled trazodone at as of 12/25. keep safe, CO started due to revelation of cheeking with plan to overdose on medications while in hospital. status changed to 1:1 as of 12/29 due to concern over pt's continued motivation and presumed ability to harm herself quickly and/or surreptitiously on the unit. support during adjustment time. working toward DC of 1:1 staffing. Greater than 50% of the session was spent on counseling and/or coordination of care Reason for contiued inpatient stay Substantial Risk for: harm to self
[2021-01-06] MEDS: Amphetamine Mixed Salts 10 MG TABLET PO (14:21)
[2021-01-06 21:01] VITALS: BP 131/81; PULSE 89; TEMP 36.6; O2SAT 97
[2021-01-06 22:06] VITALS: BP 131/81; PULSE 89
[2021-01-06] MEDS: traZODone HCL 50 MG TABLET 150 MG PO (22:06)
[2021-01-06] MEDS: Prazosin HCL 5 MG CAPSULE 10 MG PO (22:06)
[2021-01-06] MEDS: QUEtiapine Fumarate 25 MG TABLET 75 MG PO (22:08)
[2021-01-07 08:49] VITALS: BP 137/77; PULSE 85; RESP 16; TEMP 36.9; O2SAT 97
[2021-01-07] MEDS: Fluticasone Propionate Nasal 16 GM SPRAY 1 SPRAY NOSTRIL-B (08:52)
[2021-01-07] MEDS: Amphetamine Mixed Salts 20 MG TABLET PO (08:53)
[2021-01-07] MEDS: LORazepam 1 MG TABLET PO ×3 (08:53→21:57)
[2021-01-07] MEDS: Lithium Carbonate ER 300 MG TABLET.ER 600 MG PO ×2 (08:53→21:57)
[2021-01-07] MEDS: Thiamine HCL 100 MG TABLET PO (08:53)
[2021-01-07] MEDS: Cholecalciferol (Vitamin D3) 25 MCG TABLET 50 MCG PO (08:53)
--- NOTE | 2021-01-07 10:51 | HO.PSYCHPN ---
Subjective Subjective Date of Service: 01/07/21 Reason For Visit: SI Interim History: pt observed seated in group room engaged in group programming. per SW Garon: they are feeling embarrassed and like a failure for not being able to be off 1:1 this morning. Said they were feeling good about it last night but when they woke up alone they immediately started thinking of how they could harm themselves and couldn?t handle it. With that said, we talked about ways to try this again so that it feels safer. They would like to try again tomorrow later morning so they can wake up and start their day with staff available. We are going to check in tomorrow morning about a specific time, but they are thinking mid-late morning when they can be out in the milieu and around staff more while they?re off 1:1. They also requested 5 minute checks during that time instead of 15. Otherwise, they had an okay evening yesterday and are feeling sad that some of the nurses are leaving, as this triggers abandonment/attachment stuff from the past, but they are coping well. per staff, time off of 1:1 began at 0700 while pt was still sleeping. they woke up around 0800, alone, and had a panic attack. they began hitting themselves in the head and crying, asking to go back on 1:1 immediately. 1:1 reinstated. slept well overnight. Mental Status Exam Mental Status Exam Narrative: per collateral from , continues to have SI/SIBI as of this morning. observed in group seated, calm, constricted affect. Diagnostics Vital Signs (24Hr): Vital Signs - 24 hr 01/06/21 21:01 01/06/21 22:06 01/07/21 08:49 Temperature 97.9 F 98.4 F Pulse Rate 89 89 85 Respiratory Rate 16 Blood Pressure 131/81 131/81 137/77 Pulse Oximetry 97 97 Body Mass Index 40.3 Labs Results: 12/16/20 13:36 12/16/20 13:36 Medications Medications Current Medications Acetaminophen (Acetaminophen 325 Mg Tablet) 650 mg PO QID PRN PRN Reason: Pain Last Admin: 01/06/21 21:12 Dose: 650 mg Documented by: Al Hydroxide/Mg Hydroxide (Magnesium Hydrox/Alum Hydrox 30 Ml Oral.Susp) 30 ml PO Q6H PRN PRN Reason: Heartburn/Nausea Amphetamine/Dextroamphetamine (Amphetamine Mixed Salts 10 Mg Tablet) 10 mg PO DAILY@1400 [facility] Last Admin: 01/06/21 14:21 Dose: 10 mg Documented by: Amphetamine/Dextroamphetamine (Amphetamine Mixed Salts 20 Mg Tablet) 20 mg PO DAILY [facility] Last Admin: 01/07/21 08:53 Dose: 20 mg Documented by: Docusate Sodium (Docusate Sodium 100 Mg Capsule) 100 mg PO DAILY PRN PRN Reason: Constipation Last Admin: 01/04/21 11:26 Dose: 100 mg Documented by: Fluticasone Propionate (Fluticasone Propionate Nasal 16 Gm [place]) 1 spray NOSTRIL-B DAILY [facility] Last Admin: 01/07/21 08:52 Dose: 1 spray Documented by: Hydroxyzine HCl (Hydroxyzine Hcl 25 Mg Tablet) 25 mg PO Q6H PRN PRN Reason: Anxiety Last Admin: 01/05/21 18:11 Dose: 25 mg Documented by: [place] Carbonate ([place] Carbonate Er 300 Mg Tablet.Er) 600 mg PO BID [facility] Last Admin: 01/07/21 08:53 Dose: 600 mg Documented by: Lorazepam (Lorazepam 1 Mg Tablet) 1 mg PO TID PRN PRN Reason: anxiety Last Admin: 01/07/21 08:53 Dose: 1 mg Documented by: Magnesium Hydroxide (Milk Of Magnesia 30 Ml Oral.Susp) 30 ml PO DAILY PRN PRN Reason: Constipation Last Admin: 01/03/21 09:36 Dose: 30 ml Documented by: Nicotine Polacrilex (Nicotine Polacrilex 2 Mg Gum) 2 mg BUCCAL Q1H PRN PRN Reason: Nicotine Cravings Patient Own Med ( Desvenlafaxine Succinate [Pristiq] 100 Mg Tablet Extended Releas 1 each PO DAILY [facility] Last Admin: 01/07/21 08:52 Dose: 1 each Documented by: Prazosin HCl (Prazosin Hcl 5 Mg Capsule) 10 mg PO BEDTIME [facility]; Protocol Last Admin: 01/06/21 22:06 Dose: 10 mg Documented by: Quetiapine Fumarate (Quetiapine Fumarate 25 Mg Tablet) 75 mg PO BEDTIME [facility] Last Admin: 01/06/21 22:08 Dose: 75 mg Documented by: Thiamine HCl (Thiamine Hcl 100 Mg Tablet) 100 mg PO DAILY [facility] Last Admin: 01/07/21 08:53 Dose: 100 mg Documented by: Trazodone HCl (Trazodone Hcl 50 Mg Tablet) 150 mg PO BEDTIME [facility] Last Admin: 01/06/21 22:06 Dose: 150 mg Documented by: Vitamin D (Cholecalciferol (Vitamin D3) 25 Mcg Tablet) 50 mcg PO DAILY [facility] Last Admin: 01/07/21 08:53 Dose: 50 mcg Documented by: Allergies Allergies Allergy/AdvReac Type Severity Reaction Status Date / Time oseltamivir [From TAMIFLU] Allergy Unknown FELT LIKE Unverified 12/20/19 19:22 BUGS WERE ALL OVER ME . Sulfa (Sulfonamide Allergy Unknown HIVES Unverified 12/20/19 19:22 Antibiotics) [SULFA (SULFONAMIDE ANTIBIOTICS)] sulfamethoxazole Allergy Unknown HIVES Unverified 12/20/19 19:22 [From BACTRIM] trimethoprim [From BACTRIM] Allergy Unknown HIVES Unverified 12/20/19 19:22 Assessment & Plan Assessment & Plan (1) Recurrent major depression-severe: Status: Acute Code(s): F33.2 - Major depressive disorder, recurrent severe without psychotic features (2) Borderline personality disorder: Status: Acute Code(s): F60.3 - Borderline personality disorder (3) PTSD (post-traumatic stress disorder): Status: Acute Code(s): F43.10 - Post-traumatic stress disorder, unspecified (4) Suicidal ideation: Status: Acute Code(s): R45.851 - Suicidal ideations Assessment and Plan: continue home medications regimen. scheduled trazodone at HS as of 12/25. keep safe, CO started due to revelation of cheeking with plan to overdose on medications while in hospital. status changed to 1:1 as of 12/29 due to concern over pt's continued motivation and presumed ability to harm herself quickly and/or surreptitiously on the unit. support during adjustment time. working toward DC of 1:1 staffing. Greater than 50% of the session was spent on counseling and/or coordination of care Reason for contiued inpatient stay Substantial Risk for: harm to self
[2021-01-07] MEDS: Acetaminophen 325 MG TABLET 650 MG PO ×2 (11:24→22:04)
[2021-01-07] MEDS: Milk of Magnesia 30 ML ORAL.SUSP PO (12:29)
[2021-01-07] MEDS: Docusate Sodium 100 MG CAPSULE PO (12:29)
[2021-01-07] MEDS: hydrOXYzine HCL 25 MG TABLET PO (18:39)
[2021-01-07 21:56] VITALS: BP 133/73; PULSE 75
[2021-01-07] MEDS: Prazosin HCL 5 MG CAPSULE 10 MG PO (21:56)
[2021-01-07] MEDS: QUEtiapine Fumarate 25 MG TABLET 75 MG PO (21:56)
[2021-01-07] MEDS: traZODone HCL 50 MG TABLET 150 MG PO (21:57)
[2021-01-07 22:01] VITALS: BP 133/73; PULSE 75; TEMP 36.8; O2SAT 95
[2021-01-08] MEDS: Lithium Carbonate ER 300 MG TABLET.ER 600 MG PO ×2 (08:51→20:42)
[2021-01-08] MEDS: Cholecalciferol (Vitamin D3) 25 MCG TABLET 50 MCG PO (08:52)
[2021-01-08] MEDS: Amphetamine Mixed Salts 20 MG TABLET PO (08:52)
[2021-01-08] MEDS: Thiamine HCL 100 MG TABLET PO (08:52)
[2021-01-08] MEDS: LORazepam 1 MG TABLET PO ×2 (09:01→20:47)
[2021-01-08] MEDS: Amphetamine Mixed Salts 10 MG TABLET PO (15:19)
--- NOTE | 2021-01-08 15:39 | HO.PSYCHPN ---
Subjective Subjective Date of Service: 01/08/21 Reason For Visit: SI Interim History: pt observed seated in the milieu engaged in conversation with 1:1 staff. per FRANCISCA Garon: they had a rough evening and are feeling a lot of grief today. They were pretty shut down and said they didn?t care about anything. later in the day: They?re doing a little better now, they have a sensory item that is helpful to feel calm and they have been relaxing in their room. We are going to check in tomorrow morning to talk about a trial off 1:1 but have no plans in place as of right now. We will take it day by day and make a plan in the morning after checking in. per staff, period of time off of 1:1 went poorly yesterday. plan made to go off 1:1 later in the morning today, around 10, to prevent waking up alone, which appeared to be triggering yesterday. stayed in bed from 3 pm on, did not have dinner. Mental Status Exam Mental Status Exam Narrative: observed in milieu, seated, calm, interacting with 1:1 staff. per collateral from FRANCISCA, despite having had a difficult day, no SI reported. Diagnostics Vital Signs (24Hr): Vital Signs - 24 hr 01/07/21 21:56 01/07/21 22:01 Temperature 98.2 F Pulse Rate 75 75 Blood Pressure 133/73 133/73 Pulse Oximetry 95 Body Mass Index 40.3 Labs Results: 12/16/20 13:36 12/16/20 13:36 Medications Medications Current Medications Acetaminophen (Acetaminophen 325 Mg Tablet) 650 mg PO QID PRN PRN Reason: Pain Last Admin: 01/07/21 22:04 Dose: 650 mg Documented by: Al Hydroxide/Mg Hydroxide (Magnesium Hydrox/Alum Hydrox 30 Ml Oral.Susp) 30 ml PO Q6H PRN PRN Reason: Heartburn/Nausea Amphetamine/Dextroamphetamine (Amphetamine Mixed Salts 10 Mg Tablet) 10 mg PO DAILY@1400 [facility] Last Admin: 01/08/21 15:19 Dose: 10 mg Documented by: Amphetamine/Dextroamphetamine (Amphetamine Mixed Salts 20 Mg Tablet) 20 mg PO DAILY [facility] Last Admin: 01/08/21 08:52 Dose: 20 mg Documented by: Docusate Sodium (Docusate Sodium 100 Mg Capsule) 100 mg PO DAILY PRN PRN Reason: Constipation Last Admin: 01/07/21 12:29 Dose: 100 mg Documented by: Fluticasone Propionate (Fluticasone Propionate Nasal 16 Gm [place]) 1 spray NOSTRIL-B DAILY [facility] Last Admin: 01/08/21 08:59 Dose: Not Given Documented by: Hydroxyzine HCl (Hydroxyzine Hcl 25 Mg Tablet) 25 mg PO Q6H PRN PRN Reason: Anxiety Last Admin: 01/07/21 18:39 Dose: 25 mg Documented by: [place] Carbonate ([place] Carbonate Er 300 Mg Tablet.Er) 600 mg PO BID [facility] Last Admin: 01/08/21 08:51 Dose: 600 mg Documented by: Magnesium Hydroxide (Milk Of Magnesia 30 Ml Oral.Susp) 30 ml PO DAILY PRN PRN Reason: Constipation Last Admin: 01/07/21 12:29 Dose: 30 ml Documented by: Nicotine Polacrilex (Nicotine Polacrilex 2 Mg Gum) 2 mg BUCCAL Q1H PRN PRN Reason: Nicotine Cravings Patient Own Med ( Desvenlafaxine Succinate [Pristiq] 100 Mg Tablet Extended Releas 1 each PO DAILY [facility] Last Admin: 01/08/21 08:47 Dose: 1 each Documented by: Prazosin HCl (Prazosin Hcl 5 Mg Capsule) 10 mg PO BEDTIME [facility]; Protocol Last Admin: 01/07/21 21:56 Dose: 10 mg Documented by: Quetiapine Fumarate (Quetiapine Fumarate 25 Mg Tablet) 75 mg PO BEDTIME [facility] Last Admin: 01/07/21 21:56 Dose: 75 mg Documented by: Thiamine HCl (Thiamine Hcl 100 Mg Tablet) 100 mg PO DAILY [facility] Last Admin: 01/08/21 08:52 Dose: 100 mg Documented by: Trazodone HCl (Trazodone Hcl 50 Mg Tablet) 150 mg PO BEDTIME [facility] Last Admin: 01/07/21 21:57 Dose: 150 mg Documented by: Vitamin D (Cholecalciferol (Vitamin D3) 25 Mcg Tablet) 50 mcg PO DAILY [facility] Last Admin: 01/08/21 08:52 Dose: 50 mcg Documented by: Allergies Allergies Allergy/AdvReac Type Severity Reaction Status Date / Time oseltamivir [From TAMIFLU] Allergy Unknown FELT LIKE Unverified 12/20/19 19:22 BUGS WERE ALL OVER ME . Sulfa (Sulfonamide Allergy Unknown HIVES Unverified 09/17/20 19:22 Antibiotics) [SULFA (SULFONAMIDE ANTIBIOTICS)] sulfamethoxazole Allergy Unknown HIVES Unverified 12/20/19 19:22 [From BACTRIM] trimethoprim [From BACTRIM] Allergy Unknown HIVES Unverified 12/20/19 19:22 Assessment & Plan Assessment & Plan (1) Recurrent major depression-severe: Status: Acute Code(s): F33.2 - Major depressive disorder, recurrent severe without psychotic features (2) Borderline personality disorder: Status: Acute Code(s): F60.3 - Borderline personality disorder (3) PTSD (post-traumatic stress disorder): Status: Acute Code(s): F43.10 - Post-traumatic stress disorder, unspecified (4) Suicidal ideation: Status: Acute Code(s): R45.851 - Suicidal ideations Assessment and Plan: continue home medications regimen. scheduled trazodone at HS as of 12/25. keep safe, CO started due to revelation of cheeking with plan to overdose on medications while in hospital. status changed to 1:1 as of 12/29 due to concern over pt's continued motivation and presumed ability to harm herself quickly and/or surreptitiously on the unit. support during adjustment time. working toward DC of 1:1 staffing. Greater than 50% of the session was spent on counseling and/or coordination of care Reason for contiued inpatient stay Substantial Risk for: harm to self, inability to function and rapid decompensation
[2021-01-08 20:25] VITALS: BP 118/58; PULSE 82; TEMP 36.4; O2SAT 98
[2021-01-08 20:42] VITALS: BP 118/58; PULSE 82
[2021-01-08] MEDS: traZODone HCL 50 MG TABLET 150 MG PO (20:42)
[2021-01-08] MEDS: Prazosin HCL 5 MG CAPSULE 10 MG PO (20:42)
[2021-01-08] MEDS: QUEtiapine Fumarate 25 MG TABLET 75 MG PO (20:42)
[2021-01-09 06:00] VITALS: BP 137/70; PULSE 89; RESP 20; TEMP 36.7; O2SAT 97
[2021-01-09] MEDS: Fluticasone Propionate Nasal 16 GM SPRAY 1 SPRAY NOSTRIL-B (09:02)
[2021-01-09] MEDS: Thiamine HCL 100 MG TABLET PO (09:02)
[2021-01-09] MEDS: LORazepam 1 MG TABLET PO ×2 (09:02→22:10)
[2021-01-09] MEDS: Amphetamine Mixed Salts 20 MG TABLET PO (09:03)
[2021-01-09] MEDS: Lithium Carbonate ER 300 MG TABLET.ER 600 MG PO ×2 (09:03→22:09)
[2021-01-09] MEDS: Cholecalciferol (Vitamin D3) 25 MCG TABLET 50 MCG PO (09:03)
--- NOTE | 2021-01-09 11:31 | HO.PSYCHPN ---
Subjective Subjective Date of Service: 01/09/21 Reason For Visit: SI Subjective Notes: Conditional Voluntary Interim History: Pt reports they are having a better day today in that they have less suicidal ideation thoughts. They reports crying at times mourning of son. Sandi very insightful about knowing that emotions can be overwhelming but they ask to be allowed to practice self regulating skills, not immediately offering relief through medication or more invasive treatments such as ECT or Ketamine. Martin insightful about the fact that they have dealt with suicidal ideation since age 9. Sandi reports for the most part they have found strength through connection with others, most recently was their son who . Mario struggling to find meaning and purpose to their life but does report no plan or intent nor suicidal ideation at this point. Medication Compliance: Yes Side effects from medications: No Attending Groups: Yes Review of Systems Constitutional: Reports body ache(s), Denies chills, Denies fatigue, Denies fever(s), Denies headache(s), Denies malaise and Denies weakness Eyes: Denies diplopia Denies vertigo, Denies dizziness, Denies otalgia, Denies headache(s), Denies mouth pain, Denies post nasal drip, Denies sinus pain, Denies sinus pressure, Denies sore throat and Denies throat swelling Cardiovascular: Denies chest pain, Denies syncope, Denies leg edema, Denies lightheadedness, Denies Loss of Consciousness, Denies palpitations and Denies dyspnea Respiratory: Denies chest congestion, Denies cough and Denies dyspnea Gastrointestinal: Denies abdominal pain, Denies hematochezia, Denies constipation, Denies diarrhea and Denies vomiting Musculoskeletal: Reports myalgias Skin/Breast: Denies erythema and Denies rash Denies confusion, Denies vertigo, Denies dizziness, Denies syncope, Denies headache(s) and Denies weakness Psychiatric: Reports anxiety, Denies confusion, Reports depression, Reports hopelessness, Reports hallucinations and Reports suicidal ideation Endocrine: Denies fatigue and Denies palpitations Allergic/Immunologic: Denies throat swelling Diagnostics Vital Signs (24Hr): Vital Signs - 24 hr 01/08/21 20:25 01/08/21 20:42 01/09/21 06:00 Temperature 97.6 F 98.0 F Pulse Rate 82 82 89 Respiratory Rate 20 Blood Pressure 118/58 L 118/58 L 137/70 Pulse Oximetry 98 97 Body Mass Index 40.3 Labs Results: 12/16/20 13:36 12/16/20 13:36 Medications Medications Current Medications Acetaminophen (Acetaminophen 325 Mg Tablet) 650 mg PO QID PRN PRN Reason: Pain Last Admin: 01/07/21 22:04 Dose: 650 mg Documented by: Al Hydroxide/Mg Hydroxide (Magnesium Hydrox/Alum Hydrox 30 Ml Oral.Susp) 30 ml PO Q6H PRN PRN Reason: Heartburn/Nausea Amphetamine/Dextroamphetamine (Amphetamine Mixed Salts 10 Mg Tablet) 10 mg PO DAILY@1400 [facility] Last Admin: 01/09/21 14:12 Dose: 10 mg Documented by: Amphetamine/Dextroamphetamine (Amphetamine Mixed Salts 20 Mg Tablet) 20 mg PO DAILY [facility] Last Admin: 01/09/21 09:03 Dose: 20 mg Documented by: Docusate Sodium (Docusate Sodium 100 Mg Capsule) 100 mg PO DAILY PRN PRN Reason: Constipation Last Admin: 01/07/21 12:29 Dose: 100 mg Documented by: Fluticasone Propionate (Fluticasone Propionate Nasal 16 Gm [place]) 1 spray NOSTRIL-B DAILY [facility] Last Admin: 01/09/21 09:02 Dose: 1 spray Documented by: Hydroxyzine HCl (Hydroxyzine Hcl 25 Mg Tablet) 25 mg PO Q6H PRN PRN Reason: Anxiety Last Admin: 01/07/21 18:39 Dose: 25 mg Documented by: [place] Carbonate ([place] Carbonate Er 300 Mg Tablet.Er) 600 mg PO BID [facility] Last Admin: 01/09/21 09:03 Dose: 600 mg Documented by: Lorazepam (Lorazepam 1 Mg Tablet) 1 mg PO TID PRN PRN Reason: Anxiety Last Admin: 01/09/21 09:02 Dose: 1 mg Documented by: Magnesium Hydroxide (Milk Of Magnesia 30 Ml Oral.Susp) 30 ml PO DAILY PRN PRN Reason: Constipation Last Admin: 01/07/21 12:29 Dose: 30 ml Documented by: Nicotine Polacrilex (Nicotine Polacrilex 2 Mg Gum) 2 mg BUCCAL Q1H PRN PRN Reason: Nicotine Cravings Patient Own Med ( Desvenlafaxine Succinate [Pristiq] 100 Mg Tablet Extended Releas 1 each PO DAILY [facility] Last Admin: 01/09/21 09:02 Dose: 1 each Documented by: Prazosin HCl (Prazosin Hcl 5 Mg Capsule) 10 mg PO BEDTIME [facility]; Protocol Last Admin: 01/08/21 20:42 Dose: 10 mg Documented by: Quetiapine Fumarate (Quetiapine Fumarate 25 Mg Tablet) 75 mg PO BEDTIME [facility] Last Admin: 01/08/21 20:42 Dose: 75 mg Documented by: Thiamine HCl (Thiamine Hcl 100 Mg Tablet) 100 mg PO DAILY [facility] Last Admin: 01/09/21 09:02 Dose: 100 mg Documented by: Trazodone HCl (Trazodone Hcl 50 Mg Tablet) 150 mg PO BEDTIME [facility] Last Admin: 01/08/21 20:42 Dose: 150 mg Documented by: Vitamin D (Cholecalciferol (Vitamin D3) 25 Mcg Tablet) 50 mcg PO DAILY [facility] Last Admin: 01/09/21 09:03 Dose: 50 mcg Documented by: Allergies Allergies Allergy/AdvReac Type Severity Reaction Status Date / Time oseltamivir [From TAMIFLU] Allergy Unknown FELT LIKE Unverified 12/20/19 19:22 BUGS WERE ALL OVER ME . Sulfa (Sulfonamide Allergy Unknown HIVES Unverified 12/20/19 19:22 Antibiotics) [SULFA (SULFONAMIDE ANTIBIOTICS)] sulfamethoxazole Allergy Unknown HIVES Unverified 12/20/19 19:22 [From BACTRIM] trimethoprim [From BACTRIM] Allergy Unknown HIVES Unverified 12/20/19 19:22 Assessment & Plan Assessment & Plan (1) Recurrent major depression-severe: Status: Acute Code(s): F33.2 - Major depressive disorder, recurrent severe without psychotic features (2) Borderline personality disorder: Status: Acute Code(s): F60.3 - Borderline personality disorder (3) PTSD (post-traumatic stress disorder): Status: Acute Code(s): F43.10 - Post-traumatic stress disorder, unspecified (4) Suicidal ideation: Status: Acute Code(s): R45.851 - Suicidal ideations Assessment and Plan: PLAN- covering for Dr. Muhammad- continue per primary support team -continue home medications regimen. -scheduled trazodone at HS as of 12/25. -status change to 5 minutes checks on 01/09- no self harm behaviors/ monitor safety/ Pt in agreement to let staff know if not feeling safe -support during adjustment time. Greater than 50% of the session was spent on counseling and/or coordination of care Reason for contiued inpatient stay Substantial Risk for: harm to self
[2021-01-09] MEDS: Amphetamine Mixed Salts 10 MG TABLET PO (14:12)
[2021-01-09 22:05] VITALS: BP 127/73; PULSE 77; RESP 18; TEMP 36.7; O2SAT 98
[2021-01-09 22:09] VITALS: BP 127/73; PULSE 77
[2021-01-09] MEDS: Prazosin HCL 5 MG CAPSULE 10 MG PO (22:09)
[2021-01-09] MEDS: traZODone HCL 50 MG TABLET 150 MG PO (22:10)
[2021-01-09] MEDS: QUEtiapine Fumarate 25 MG TABLET 75 MG PO (22:10)
[2021-01-10] MEDS: Thiamine HCL 100 MG TABLET PO (08:13)
[2021-01-10] MEDS: Amphetamine Mixed Salts 20 MG TABLET PO (08:13)
[2021-01-10] MEDS: Cholecalciferol (Vitamin D3) 25 MCG TABLET 50 MCG PO (08:13)
[2021-01-10] MEDS: Lithium Carbonate ER 300 MG TABLET.ER 600 MG PO ×2 (08:13→21:44)
[2021-01-10] MEDS: LORazepam 1 MG TABLET PO ×2 (08:13→21:45)
[2021-01-10] MEDS: Fluticasone Propionate Nasal 16 GM SPRAY 1 SPRAY NOSTRIL-B (08:14)
[2021-01-10 08:35] VITALS: BP 115/56; PULSE 80; RESP 18; TEMP 36.7; O2SAT 98
--- NOTE | 2021-01-10 17:39 | HO.PSYCHPN ---
Subjective Subjective Date of Service: 01/10/21 Reason For Visit: SI Interim History: Pt reports preparing for discharge, partial hospital and plans to not return to [facility] [place]. Discussed issues related to admission and pt not being sent to with attempts to clarify. Pt expressed herself clearly and had all valid points regarding her preparation for admission, approval by administration and lack of follow through when the decision was made to admit her to another unit. Currently she reports medications are stable, helpful. Discussed her level of grief after the loss of friends baby, sister's wedding and chronic ongoing conflict with her mother. Plans a limited visit with her mother today. Medication Compliance: Yes Side effects from medications: No Attending Groups: Yes Review of Systems Acute medical concerns: No Medical Review of Systems: unchanged Review of Systems Psychiatric: Reports anxiety, Reports depression, Reports hopelessness and Reports suicidal ideation (resolving) Mental Status Exam Mental Status Exam Patient Appearance: Appropriate Patient Orientation: Person, Place, Time and Situation Level of Consciousness: Awake and Alert Patient Behavior: Appropriate, Talkative and Good Eye Contact Mood Description: Appropriate, Depressed and Angry Affect Description: Flat Patient Cognition Impaired: No Ability to Follow Directions: Good Speech Pattern: Spontaneous Speech Memory Description: Intact Hallucinations: None Delusions: Not Present Thought Process: Intact Thought Content: positive for Circumstantial, positive for Goal Oriented, positive for Linear, positive for Logical and positive for Suicidal Ideation (chronic, but resolving) Depressive Symptoms: Increased Anxiety and Thoughts of /Suicide Judgement: Good Diagnostics Vital Signs (24Hr): Vital Signs - 24 hr 01/09/21 22:05 01/09/21 22:09 01/10/21 08:35 Temperature 98.1 F 98.0 F Pulse Rate 77 77 80 Respiratory Rate 18 18 Blood Pressure 127/73 127/73 115/56 L Pulse Oximetry 98 98 Body Mass Index 40.3 Labs Results: 12/16/20 13:36 12/16/20 13:36 Medications Medications Current Medications Acetaminophen (Acetaminophen 325 Mg Tablet) 650 mg PO QID PRN PRN Reason: Pain Last Admin: 01/07/21 22:04 Dose: 650 mg Documented by: Al Hydroxide/Mg Hydroxide (Magnesium Hydrox/Alum Hydrox 30 Ml Oral.Susp) 30 ml PO Q6H PRN PRN Reason: Heartburn/Nausea Amphetamine/Dextroamphetamine (Amphetamine Mixed Salts 10 Mg Tablet) 10 mg PO DAILY@1400 [facility] Last Admin: 01/10/21 15:19 Dose: Not Given Documented by: Amphetamine/Dextroamphetamine (Amphetamine Mixed Salts 20 Mg Tablet) 20 mg PO DAILY [facility] Last Admin: 01/10/21 08:13 Dose: 20 mg Documented by: Docusate Sodium (Docusate Sodium 100 Mg Capsule) 100 mg PO DAILY PRN PRN Reason: Constipation Last Admin: 01/07/21 12:29 Dose: 100 mg Documented by: Fluticasone Propionate (Fluticasone Propionate Nasal 16 Gm [place]) 1 spray NOSTRIL-B DAILY [facility] Last Admin: 01/10/21 08:14 Dose: 1 spray Documented by: Hydroxyzine HCl (Hydroxyzine Hcl 25 Mg Tablet) 25 mg PO Q6H PRN PRN Reason: Anxiety Last Admin: 01/07/21 18:39 Dose: 25 mg Documented by: [place] Carbonate ([place] Carbonate Er 300 Mg Tablet.Er) 600 mg PO BID [facility] Last Admin: 01/10/21 08:13 Dose: 600 mg Documented by: Lorazepam (Lorazepam 1 Mg Tablet) 1 mg PO TID PRN PRN Reason: Anxiety Last Admin: 01/10/21 08:13 Dose: 1 mg Documented by: Magnesium Hydroxide (Milk Of Magnesia 30 Ml Oral.Susp) 30 ml PO DAILY PRN PRN Reason: Constipation Last Admin: 01/07/21 12:29 Dose: 30 ml Documented by: Nicotine Polacrilex (Nicotine Polacrilex 2 Mg Gum) 2 mg BUCCAL Q1H PRN PRN Reason: Nicotine Cravings Patient Own Med ( Desvenlafaxine Succinate [Pristiq] 100 Mg Tablet Extended Releas 1 each PO DAILY [facility] Last Admin: 01/10/21 08:14 Dose: 1 each Documented by: Prazosin HCl (Prazosin Hcl 5 Mg Capsule) 10 mg PO BEDTIME [facility]; Protocol Last Admin: 01/09/21 22:09 Dose: 10 mg Documented by: Quetiapine Fumarate (Quetiapine Fumarate 25 Mg Tablet) 75 mg PO BEDTIME [facility] Last Admin: 01/09/21 22:10 Dose: 75 mg Documented by: Thiamine HCl (Thiamine Hcl 100 Mg Tablet) 100 mg PO DAILY [facility] Last Admin: 01/10/21 08:13 Dose: 100 mg Documented by: Trazodone HCl (Trazodone Hcl 50 Mg Tablet) 150 mg PO BEDTIME [facility] Last Admin: 01/09/21 22:10 Dose: 150 mg Documented by: Vitamin D (Cholecalciferol (Vitamin D3) 25 Mcg Tablet) 50 mcg PO DAILY [facility] Last Admin: 01/10/21 08:13 Dose: 50 mcg Documented by: Allergies Allergies Allergy/AdvReac Type Severity Reaction Status Date / Time oseltamivir [From TAMIFLU] Allergy Unknown FELT LIKE Unverified 12/20/19 19:22 BUGS WERE ALL OVER ME . Sulfa (Sulfonamide Allergy Unknown HIVES Unverified 12/20/19 19:22 Antibiotics) [SULFA (SULFONAMIDE ANTIBIOTICS)] sulfamethoxazole Allergy Unknown HIVES Unverified 12/20/19 19:22 [From BACTRIM] trimethoprim [From BACTRIM] Allergy Unknown HIVES Unverified 12/20/19 19:22 Assessment & Plan Assessment & Plan (1) Recurrent major depression-severe: Status: Acute Code(s): F33.2 - Major depressive disorder, recurrent severe without psychotic features (2) Borderline personality disorder: Status: Acute Code(s): F60.3 - Borderline personality disorder (3) PTSD (post-traumatic stress disorder): Status: Acute Code(s): F43.10 - Post-traumatic stress disorder, unspecified (4) Suicidal ideation: Status: Acute Code(s): R45.851 - Suicidal ideations Assessment and Plan: PLAN- covering for Dr. Muhammad- continue per primary support team -continue home medications regimen. -scheduled trazodone at [facility] as of 12/25. -status change to 5 minutes checks on 01/09- no self harm behaviors/ monitor safety/ Pt in agreement to let staff know if not feeling safe -support during adjustment time. 01/10/21: Coverage: No changes in plan of care. Greater than 50% of the session was spent on counseling and/or coordination of care Patient educated on: therapeutic strategies and other Informed Consent: understands Reason for contiued inpatient stay Substantial Risk for: harm to self and rapid decompensation
[2021-01-10 21:44] VITALS: BP 130/70; PULSE 82
[2021-01-10] MEDS: Prazosin HCL 5 MG CAPSULE 10 MG PO (21:44)
[2021-01-10] MEDS: QUEtiapine Fumarate 25 MG TABLET 75 MG PO (21:45)
[2021-01-10] MEDS: traZODone HCL 50 MG TABLET 150 MG PO (21:45)
[2021-01-10 21:49] VITALS: BP 130/70; PULSE 82; RESP 18; TEMP 36.7; O2SAT 95
[2021-01-11 06:00] VITALS: BP 122/73; PULSE 85; RESP 20; TEMP 36.8; O2SAT 97
[2021-01-11] MEDS: Amphetamine Mixed Salts 20 MG TABLET PO (09:50)
[2021-01-11] MEDS: Cholecalciferol (Vitamin D3) 25 MCG TABLET 50 MCG PO (09:50)
[2021-01-11] MEDS: Lithium Carbonate ER 300 MG TABLET.ER 600 MG PO ×2 (09:50→21:31)
[2021-01-11] MEDS: Thiamine HCL 100 MG TABLET PO (09:50)
[2021-01-11] MEDS: Fluticasone Propionate Nasal 16 GM SPRAY 1 SPRAY NOSTRIL-B (09:50)
[2021-01-11] MEDS: LORazepam 1 MG TABLET PO ×2 (09:52→21:31)
--- NOTE | 2021-01-11 10:39 | HO.PSYCHPN ---
Subjective Subjective Date of Service: 01/11/21 Reason For Visit: SI Subjective Notes: Conditional Voluntary Interim History: Sandi identifies this upcoming week as difficult with two anniversary times upcoming 01/12 and 01/14. She is utilizing the milieu and team for support, attending groups. She reports medication regime is appropriate and not in need to adjustment. She continues to discuss that she plans to never return to [facility] for [place] given the decisions made around this admission, encouraged her choices and plans for the future and strengthening of her voice to make appropriate choices for herself. Water Hydrant Installer received notification at 5:55pm that pt shared with Loren Leonard in their one to one that she had just tied several socks together and attempted to strangle herself in the shower but reflex prevented this. One to one was initiated at this time as pt is struggling with upcoming difficult days in the week ahead. No injury was noted per team. Medication Compliance: Yes Side effects from medications: No Attending Groups: Yes Review of Systems Medical Review of Systems: unchanged Review of Systems Psychiatric: Reports anxiety, Reports depression, Reports hopelessness and Reports suicidal ideation Mental Status Exam Mental Status Exam Patient Appearance: Appropriate Patient Orientation: Person, Place, Time and Situation Level of Consciousness: Awake and Alert Patient Behavior: Appropriate, Talkative and Good Eye Contact Mood Description: Appropriate, Depressed and Angry Affect Description: Flat Patient Cognition Impaired: No Ability to Follow Directions: Good Speech Pattern: Spontaneous Speech Memory Description: Intact Hallucinations: None Delusions: Not Present Thought Process: Intact Thought Content: positive for Circumstantial, positive for Goal Oriented, positive for Linear, positive for Logical and positive for Suicidal Ideation Depressive Symptoms: Increased Anxiety and Thoughts of /Suicide Judgement: Good Diagnostics Vital Signs (24Hr): Vital Signs - 24 hr 01/10/21 21:44 01/10/21 21:49 Temperature 98.1 F Pulse Rate 82 82 Respiratory Rate 18 Blood Pressure 130/70 130/70 Pulse Oximetry 95 Body Mass Index 40.3 Labs Results: 12/16/20 13:36 12/16/20 13:36 Medications Medications Current Medications Acetaminophen (Acetaminophen 325 Mg Tablet) 650 mg PO QID PRN PRN Reason: Pain Last Admin: 01/07/21 22:04 Dose: 650 mg Documented by: Al Hydroxide/Mg Hydroxide (Magnesium Hydrox/Alum Hydrox 30 Ml Oral.Susp) 30 ml PO Q6H PRN PRN Reason: Heartburn/Nausea Amphetamine/Dextroamphetamine (Amphetamine Mixed Salts 10 Mg Tablet) 10 mg PO DAILY@1400 [facility] Last Admin: 01/10/21 15:19 Dose: Not Given Documented by: Amphetamine/Dextroamphetamine (Amphetamine Mixed Salts 20 Mg Tablet) 20 mg PO DAILY [facility] Last Admin: 01/11/21 09:50 Dose: 20 mg Documented by: Docusate Sodium (Docusate Sodium 100 Mg Capsule) 100 mg PO DAILY PRN PRN Reason: Constipation Last Admin: 01/07/21 12:29 Dose: 100 mg Documented by: Fluticasone Propionate (Fluticasone Propionate Nasal 16 Gm [place]) 1 spray NOSTRIL-B DAILY [facility] Last Admin: 01/11/21 09:50 Dose: 1 spray Documented by: Hydroxyzine HCl (Hydroxyzine Hcl 25 Mg Tablet) 25 mg PO Q6H PRN PRN Reason: Anxiety Last Admin: 01/07/21 18:39 Dose: 25 mg Documented by: [place] Carbonate ([place] Carbonate Er 300 Mg Tablet.Er) 600 mg PO BID [facility] Last Admin: 01/11/21 09:50 Dose: 600 mg Documented by: Lorazepam (Lorazepam 1 Mg Tablet) 1 mg PO BID [facility] Lorazepam (Lorazepam 1 Mg Tablet) 1 mg PO DAILY PRN PRN Reason: Anxiety Magnesium Hydroxide (Milk Of Magnesia 30 Ml Oral.Susp) 30 ml PO DAILY PRN PRN Reason: Constipation Last Admin: 01/07/21 12:29 Dose: 30 ml Documented by: Nicotine Polacrilex (Nicotine Polacrilex 2 Mg Gum) 2 mg BUCCAL Q1H PRN PRN Reason: Nicotine Cravings Patient Own Med ( Desvenlafaxine Succinate [Pristiq] 100 Mg Tablet Extended Releas 1 each PO DAILY [facility] Last Admin: 01/11/21 09:50 Dose: 1 each Documented by: Prazosin HCl (Prazosin Hcl 5 Mg Capsule) 10 mg PO BEDTIME [facility]; Protocol Last Admin: 01/10/21 21:44 Dose: 10 mg Documented by: Quetiapine Fumarate (Quetiapine Fumarate 25 Mg Tablet) 75 mg PO BEDTIME [facility] Last Admin: 01/10/21 21:45 Dose: 75 mg Documented by: Thiamine HCl (Thiamine Hcl 100 Mg Tablet) 100 mg PO DAILY [facility] Last Admin: 01/11/21 09:50 Dose: 100 mg Documented by: Trazodone HCl (Trazodone Hcl 50 Mg Tablet) 150 mg PO BEDTIME [facility] Last Admin: 01/10/21 21:45 Dose: 150 mg Documented by: Vitamin D (Cholecalciferol (Vitamin D3) 25 Mcg Tablet) 50 mcg PO DAILY [facility] Last Admin: 01/11/21 09:50 Dose: 50 mcg Documented by: Allergies Allergies Allergy/AdvReac Type Severity Reaction Status Date / Time oseltamivir [From TAMIFLU] Allergy Unknown FELT LIKE Unverified 12/20/19 19:22 BUGS WERE ALL OVER ME . Sulfa (Sulfonamide Allergy Unknown HIVES Unverified 12/20/19 19:22 Antibiotics) [SULFA (SULFONAMIDE ANTIBIOTICS)] sulfamethoxazole Allergy Unknown HIVES Unverified 12/20/19 19:22 [From BACTRIM] trimethoprim [From BACTRIM] Allergy Unknown HIVES Unverified 12/20/19 19:22 Assessment & Plan Assessment & Plan (1) Recurrent major depression-severe: Status: Acute Code(s): F33.2 - Major depressive disorder, recurrent severe without psychotic features (2) Borderline personality disorder: Status: Acute Code(s): F60.3 - Borderline personality disorder (3) PTSD (post-traumatic stress disorder): Status: Acute Code(s): F43.10 - Post-traumatic stress disorder, unspecified (4) Suicidal ideation: Status: Acute Code(s): R45.851 - Suicidal ideations Assessment and Plan: PLAN- covering for Dr. Muhammad- continue per primary support team -continue home medications regimen. -scheduled trazodone at HS as of 12/25. -status change to 5 minutes checks on 01/09- no self harm behaviors/ monitor safety/ Pt in agreement to let staff know if not feeling safe -support during adjustment time. 01/10/21: Coverage: No changes in plan of care. 01/11/21: Coverage: Per pt request changed Ativan tid prn to bid scheduled and qd prn as pt is using two per day scheduled. Pt reports sleep had improved with this use although dreams were still difficult. Discussed extra support for difficult days which she agrees will be helfpul. Much later in the day informed that pt had shared that she had tied socks together in an attempt to strangle herself. She is now on one to one. Continue to monitor process concerns. Greater than 50% of the session was spent on counseling and/or coordination of care Patient educated on: therapeutic strategies Informed Consent: understands Reason for contiued inpatient stay Substantial Risk for: harm to self, inability to function and rapid decompensation
--- NOTE | 2021-01-11 18:27 | PC.NURSE ---
Patient accepted fresh air break with designer/writer, while on patio patient reported they attempted to strangle themself by tying socks together and putting around neck. States they were sitting on the shower floor almost out however reflex prevented completing the action. No apparent ligature encinas. Reports they do not know why they are unable to tell staff when not doing well. Stated not feeling listened to for many years is contributing factor. Reports feeling especially disconnected today and is unable to identify why. Offered location of knotted socks to this designer/writer, removed, and disposed of. Orin Pelletier MIXER MACHINE FEEDER notified, patient placed on 1:1. Nursing supervisor orchard notified.
[2021-01-11] MEDS: Acetaminophen 325 MG TABLET 650 MG PO (19:58)
[2021-01-11 21:31] VITALS: BP 125/68; PULSE 73
[2021-01-11] MEDS: traZODone HCL 50 MG TABLET 150 MG PO (21:31)
[2021-01-11] MEDS: Prazosin HCL 5 MG CAPSULE 10 MG PO (21:31)
[2021-01-11] MEDS: QUEtiapine Fumarate 25 MG TABLET 75 MG PO (21:31)
[2021-01-11 21:44] VITALS: TEMP 36.7; O2SAT 97
[2021-01-12] MEDS: Lithium Carbonate ER 300 MG TABLET.ER 600 MG PO ×2 (09:31→22:03)
[2021-01-12] MEDS: Cholecalciferol (Vitamin D3) 25 MCG TABLET 50 MCG PO (09:31)
[2021-01-12] MEDS: Thiamine HCL 100 MG TABLET PO (09:31)
[2021-01-12] MEDS: LORazepam 1 MG TABLET PO ×3 (09:31→22:03)
[2021-01-12] MEDS: Amphetamine Mixed Salts 20 MG TABLET PO (09:31)
[2021-01-12] MEDS: Fluticasone Propionate Nasal 16 GM SPRAY 1 SPRAY NOSTRIL-B (09:32)
[2021-01-12 09:36] VITALS: BP 116/66; PULSE 78; RESP 16; TEMP 36.4; O2SAT 97
[2021-01-12] MEDS: Acetaminophen 325 MG TABLET 650 MG PO (14:38)
--- NOTE | 2021-01-12 15:28 | HO.PSYCHPN ---
Subjective Subjective Date of Service: 01/12/21 Reason For Visit: SI Subjective Notes: Conditional Voluntary Interim History: One to one in place. Team reports pt to be isolative, quiet. This week is difficult. Today is the anniversary of the date pt last heard the baby's heartbeat. Tuesday will be the anniversary of his stillbirth. Pt is in her room with one to one. Declines to meet, sitting at the desk, seemingly looking at a picture of the baby. Offered availability if needed. No current medical concerns. Pt attempting to [facility] meds [facility] [place] [facility] and not wanting changes. Responding to team support. Medication Compliance: Yes Side effects from medications: No Attending Groups: Yes Review of Systems Acute medical concerns: No Medical Review of Systems: unchanged Review of Systems Review of Systems Yes Unobtainable due to mental status Psychiatric: Reports anxiety, Reports depression, Reports difficulty concentrating, Reports hopelessness, Reports anhedonia and Reports suicidal ideation Mental Status Exam Mental Status Exam Patient Appearance: Appropriate Patient Orientation: Person, Place, Time and Situation Level of Consciousness: Awake and Alert Patient Behavior: Appropriate, Avoidant, Isolative and Poor Eye Contact Mood Description: Withdrawn, Appropriate (grieving), Constricted, Depressed, Anxious and Flat Affect Description: Flat Patient Cognition Impaired: No Ability to Follow Directions: Good Speech Pattern: Impoverished, Spontaneous Speech and Soft-Spoken Memory Description: Intact Hallucinations: None Delusions: Not Present Perceptual Disturbances: Depersonalization and Derealization Thought Process: Distracted and Rumination Thought Content: positive for Circumstantial and positive for Suicidal Ideation Depressive Symptoms: Increased Anxiety, Hopelessness (grieving), Isolating-Friends/Family, Unhappiness, Thoughts of /Suicide, Loss of Energy and Difficulty Concentrating Judgement: Good Diagnostics Vital Signs (24Hr): Vital Signs - 24 hr 01/11/21 21:31 01/11/21 21:44 01/12/21 09:36 Temperature 98.0 F 97.6 F Pulse Rate 73 78 Respiratory Rate 16 Blood Pressure 125/68 116/66 Pulse Oximetry 97 97 Body Mass Index 40.3 Labs Results: 12/16/20 13:36 12/16/20 13:36 Medications Medications Current Medications Acetaminophen (Acetaminophen 325 Mg Tablet) 650 mg PO QID PRN PRN Reason: Pain Last Admin: 01/12/21 14:38 Dose: 650 mg Documented by: Al Hydroxide/Mg Hydroxide (Magnesium Hydrox/Alum Hydrox 30 Ml Oral.Susp) 30 ml PO Q6H PRN PRN Reason: Heartburn/Nausea Amphetamine/Dextroamphetamine (Amphetamine Mixed Salts 10 Mg Tablet) 10 mg PO DAILY@1400 [facility] Last Admin: 01/12/21 14:40 Dose: Not Given Documented by: Amphetamine/Dextroamphetamine (Amphetamine Mixed Salts 20 Mg Tablet) 20 mg PO DAILY [facility] Last Admin: 01/12/21 09:31 Dose: 20 mg Documented by: Docusate Sodium (Docusate Sodium 100 Mg Capsule) 100 mg PO DAILY PRN PRN Reason: Constipation Last Admin: 01/07/21 12:29 Dose: 100 mg Documented by: Fluticasone Propionate (Fluticasone Propionate Nasal 16 Gm [place]) 1 spray NOSTRIL-B DAILY [facility] Last Admin: 01/12/21 09:32 Dose: 1 spray Documented by: Hydroxyzine HCl (Hydroxyzine Hcl 25 Mg Tablet) 25 mg PO Q6H PRN PRN Reason: Anxiety Last Admin: 01/07/21 18:39 Dose: 25 mg Documented by: [place] Carbonate ([place] Carbonate Er 300 Mg Tablet.Er) 600 mg PO BID [facility] Last Admin: 01/12/21 09:31 Dose: 600 mg Documented by: Lorazepam (Lorazepam 1 Mg Tablet) 1 mg PO BID [facility] Last Admin: 01/12/21 09:31 Dose: 1 mg Documented by: Lorazepam (Lorazepam 1 Mg Tablet) 1 mg PO DAILY PRN PRN Reason: Anxiety Magnesium Hydroxide (Milk Of Magnesia 30 Ml Oral.Susp) 30 ml PO DAILY PRN PRN Reason: Constipation Last Admin: 01/07/21 12:29 Dose: 30 ml Documented by: Nicotine Polacrilex (Nicotine Polacrilex 2 Mg Gum) 2 mg BUCCAL Q1H PRN PRN Reason: Nicotine Cravings Patient Own Med ( Desvenlafaxine Succinate [Pristiq] 100 Mg Tablet Extended Releas 1 each PO DAILY [facility] Last Admin: 01/12/21 09:32 Dose: 1 each Documented by: Prazosin HCl (Prazosin Hcl 5 Mg Capsule) 10 mg PO BEDTIME [facility]; Protocol Last Admin: 01/11/21 21:31 Dose: 10 mg Documented by: Quetiapine Fumarate (Quetiapine Fumarate 25 Mg Tablet) 75 mg PO BEDTIME [facility] Last Admin: 01/11/21 21:31 Dose: 75 mg Documented by: Thiamine HCl (Thiamine Hcl 100 Mg Tablet) 100 mg PO DAILY [facility] Last Admin: 01/12/21 09:31 Dose: 100 mg Documented by: Trazodone HCl (Trazodone Hcl 50 Mg Tablet) 150 mg PO BEDTIME [facility] Last Admin: 01/11/21 21:31 Dose: 150 mg Documented by: Vitamin D (Cholecalciferol (Vitamin D3) 25 Mcg Tablet) 50 mcg PO DAILY [facility] Last Admin: 01/12/21 09:31 Dose: 50 mcg Documented by: Allergies Allergies Allergy/AdvReac Type Severity Reaction Status Date / Time oseltamivir [From TAMIFLU] Allergy Unknown FELT LIKE Unverified 12/20/19 19:22 BUGS WERE ALL OVER ME . Sulfa (Sulfonamide Allergy Unknown HIVES Unverified 12/20/19 19:22 Antibiotics) [SULFA (SULFONAMIDE ANTIBIOTICS)] sulfamethoxazole Allergy Unknown HIVES Unverified 12/20/19 19:22 [From BACTRIM] trimethoprim [From BACTRIM] Allergy Unknown HIVES Unverified 12/20/19 19:22 Assessment & Plan Assessment & Plan (1) Recurrent major depression-severe: Status: Acute Code(s): F33.2 - Major depressive disorder, recurrent severe without psychotic features (2) Borderline personality disorder: Status: Acute Code(s): F60.3 - Borderline personality disorder (3) PTSD (post-traumatic stress disorder): Status: Acute Code(s): F43.10 - Post-traumatic stress disorder, unspecified (4) Suicidal ideation: Status: Acute Code(s): R45.851 - Suicidal ideations Assessment and Plan: PLAN- covering for Dr. Muhammad- continue per primary support team -continue home medications regimen. -scheduled trazodone at [facility] as of 12/25. -status change to 5 minutes checks on 01/09- no self harm behaviors/ monitor safety/ Pt in agreement to let staff know if not feeling safe -support during adjustment time. 01/10/21: Coverage: No changes in plan of care. 01/11/21: Coverage: Per pt request changed Ativan tid prn to bid scheduled and qd prn as pt is using two per day scheduled. Pt reports sleep had improved with this use although dreams were still difficult. Discussed extra support for difficult days which she agrees will be helfpul. Much later in the day informed that pt had shared that she had tied socks together in an attempt to strangle herself. She is now on one to one. Continue to monitor process concerns. 01/12/21: One to one in place. Today is the anniversary of the last heartbeat heard of the baby. Pt grieving, isolated. Support, respect offered. No medication changes. Available to pt as needed. Greater than 50% of the session was spent on counseling and/or coordination of care Reason for contiued inpatient stay Substantial Risk for: harm to self, inability to function and rapid decompensation
[2021-01-12] MEDS: Ibuprofen 600 MG TABLET PO (17:01)
[2021-01-12 22:03] VITALS: BP 130/73; PULSE 78
[2021-01-12] MEDS: traZODone HCL 50 MG TABLET 150 MG PO (22:03)
[2021-01-12] MEDS: Prazosin HCL 5 MG CAPSULE 10 MG PO (22:03)
[2021-01-12] MEDS: QUEtiapine Fumarate 25 MG TABLET 75 MG PO (22:03)
[2021-01-12 22:07] VITALS: TEMP 36.1; O2SAT 98
[2021-01-13] MEDS: Fluticasone Propionate Nasal 16 GM SPRAY 1 SPRAY NOSTRIL-B (08:30)
[2021-01-13] MEDS: Ibuprofen 600 MG TABLET PO (08:30)
[2021-01-13] MEDS: LORazepam 1 MG TABLET PO ×3 (08:31→21:17)
[2021-01-13] MEDS: Cholecalciferol (Vitamin D3) 25 MCG TABLET 50 MCG PO (08:31)
[2021-01-13] MEDS: Lithium Carbonate ER 300 MG TABLET.ER 600 MG PO ×2 (08:31→21:17)
[2021-01-13] MEDS: Amphetamine Mixed Salts 20 MG TABLET PO (08:31)
[2021-01-13] MEDS: Thiamine HCL 100 MG TABLET PO (08:31)
[2021-01-13 08:38] VITALS: BP 137/70; PULSE 82; RESP 16; TEMP 36.6; O2SAT 98
[2021-01-13] MEDS: Amphetamine Mixed Salts 10 MG TABLET PO (13:54)
--- NOTE | 2021-01-13 14:00 | HO.PSYCHPN ---
Subjective Subjective Date of Service: 01/13/21 Reason For Visit: SI Interim History: per collateral from FRANCISCA Ambrose: they detailed their suicide attempt over the weekend but said since then they have not had any active suicidal ideation. They said the attempt was not planned out ahead of time, but was impulsive in a sense due to strong emotions and then made a plan of how they would do it. the above is consistent with nursing report this morning. the SA involved tying socks around the neck while in the shower. pt has now asked for staff to be in the shower [place] whenever they are taking a shower, even once they are off of 1:1. 4-month anniversary of baby's is tomorrow. nevertheless pt apparently asking about getting off of 1:1 tomorrow. no notable events in the past 24H, aside from pt's report of lack of SI (although pt admitted to telling staff she was not having SI over the weekend, when in fact she was). Mental Status Exam Mental Status Exam Narrative: observed in milieu, seated, calm, interacting with 1:1 staff. denying SI to staff. Diagnostics Vital Signs (24Hr): Vital Signs - 24 hr 01/12/21 22:03 01/12/21 22:07 01/13/21 08:38 Temperature 97.0 F 97.9 F Pulse Rate 78 82 Respiratory Rate 16 Blood Pressure 130/73 137/70 Pulse Oximetry 98 98 Body Mass Index 40.3 Labs Results: 12/16/20 13:36 12/16/20 13:36 Medications Medications Current Medications Acetaminophen (Acetaminophen 325 Mg Tablet) 650 mg PO QID PRN PRN Reason: Pain Last Admin: 01/12/21 14:38 Dose: 650 mg Documented by: Al Hydroxide/Mg Hydroxide (Magnesium Hydrox/Alum Hydrox 30 Ml Oral.Susp) 30 ml PO Q6H PRN PRN Reason: Heartburn/Nausea Amphetamine/Dextroamphetamine (Amphetamine Mixed Salts 10 Mg Tablet) 10 mg PO DAILY@1400 [facility] Last Admin: 01/13/21 13:54 Dose: 10 mg Documented by: Amphetamine/Dextroamphetamine (Amphetamine Mixed Salts 20 Mg Tablet) 20 mg PO DAILY [facility] Last Admin: 01/13/21 08:31 Dose: 20 mg Documented by: Docusate Sodium (Docusate Sodium 100 Mg Capsule) 100 mg PO DAILY PRN PRN Reason: Constipation Last Admin: 01/07/21 12:29 Dose: 100 mg Documented by: Fluticasone Propionate (Fluticasone Propionate Nasal 16 Gm [place]) 1 spray NOSTRIL-B DAILY [facility] Last Admin: 01/13/21 08:30 Dose: 1 spray Documented by: Hydroxyzine HCl (Hydroxyzine Hcl 25 Mg Tablet) 25 mg PO Q6H PRN PRN Reason: Anxiety Last Admin: 01/07/21 18:39 Dose: 25 mg Documented by: Ibuprofen (Ibuprofen 600 Mg Tablet) 600 mg PO DAILY PRN PRN Reason: cramping Last Admin: 01/13/21 08:30 Dose: 600 mg Documented by: Deer Carbonate (Deer Carbonate Er 300 Mg Tablet.Er) 600 mg PO BID [facility] Last Admin: 01/13/21 08:31 Dose: 600 mg Documented by: Lorazepam (Lorazepam 1 Mg Tablet) 1 mg PO BID [facility] Last Admin: 01/13/21 08:31 Dose: 1 mg Documented by: Lorazepam (Lorazepam 1 Mg Tablet) 1 mg PO DAILY PRN PRN Reason: Anxiety Last Admin: 01/12/21 15:38 Dose: 1 mg Documented by: Magnesium Hydroxide (Milk Of Magnesia 30 Ml Oral.Susp) 30 ml PO DAILY PRN PRN Reason: Constipation Last Admin: 01/07/21 12:29 Dose: 30 ml Documented by: Nicotine Polacrilex (Nicotine Polacrilex 2 Mg Gum) 2 mg BUCCAL Q1H PRN PRN Reason: Nicotine Cravings Patient Own Med ( Desvenlafaxine Succinate [Pristiq] 100 Mg Tablet Extended Releas 1 each PO DAILY [facility] Last Admin: 01/13/21 08:31 Dose: 1 each Documented by: Prazosin HCl (Prazosin Hcl 5 Mg Capsule) 10 mg PO BEDTIME [facility]; Protocol Last Admin: 01/12/21 22:03 Dose: 10 mg Documented by: Quetiapine Fumarate (Quetiapine Fumarate 25 Mg Tablet) 75 mg PO BEDTIME [facility] Last Admin: 01/12/21 22:03 Dose: 75 mg Documented by: Thiamine HCl (Thiamine Hcl 100 Mg Tablet) 100 mg PO DAILY [facility] Last Admin: 01/13/21 08:31 Dose: 100 mg Documented by: Trazodone HCl (Trazodone Hcl 50 Mg Tablet) 150 mg PO BEDTIME [facility] Last Admin: 01/12/21 22:03 Dose: 150 mg Documented by: Vitamin D (Cholecalciferol (Vitamin D3) 25 Mcg Tablet) 50 mcg PO DAILY [facility] Last Admin: 01/13/21 08:31 Dose: 50 mcg Documented by: Allergies Allergies Allergy/AdvReac Type Severity Reaction Status Date / Time oseltamivir [From TAMIFLU] Allergy Unknown FELT LIKE Unverified 12/20/19 19:22 BUGS WERE ALL OVER ME . Sulfa (Sulfonamide Allergy Unknown HIVES Unverified 12/20/19 19:22 Antibiotics) [SULFA (SULFONAMIDE ANTIBIOTICS)] sulfamethoxazole Allergy Unknown HIVES Unverified 12/20/19 19:22 [From BACTRIM] trimethoprim [From BACTRIM] Allergy Unknown HIVES Unverified 12/20/19 19:22 Assessment & Plan Assessment & Plan (1) Recurrent major depression-severe: Status: Acute Code(s): F33.2 - Major depressive disorder, recurrent severe without psychotic features (2) Borderline personality disorder: Status: Acute Code(s): F60.3 - Borderline personality disorder (3) PTSD (post-traumatic stress disorder): Status: Acute Code(s): F43.10 - Post-traumatic stress disorder, unspecified (4) Suicidal ideation: Status: Acute Code(s): R45.851 - Suicidal ideations Assessment and Plan: -continue home medications regimen. -scheduled trazodone at HS as of 12/25. -support during adjustment period. 01/09/21: status change to 5 minutes checks on 01/09- no self harm behaviors/ monitor safety/ Pt in agreement to let staff know if not feeling safe 01/10/21: Coverage: No changes in plan of care. 01/11/21: Coverage: Per pt request changed Ativan tid prn to bid scheduled and qd prn as pt is using two per day scheduled. Pt reports sleep had improved with this use although dreams were still difficult. Discussed extra support for difficult days which she agrees will be helfpul. Much later in the day informed that pt had shared that she had tied socks together in an attempt to strangle herself. She is now on one to one. Continue to monitor process concerns. 01/12/21: One to one in place. Today is the anniversary of the last heartbeat heard of the baby. Pt grieving, isolated. Support, respect offered. No medication changes. Available to pt as needed. Greater than 50% of the session was spent on counseling and/or coordination of care Reason for contiued inpatient stay Substantial Risk for: harm to self
[2021-01-13 21:16] VITALS: BP 117/56; PULSE 86
[2021-01-13] MEDS: Prazosin HCL 5 MG CAPSULE 10 MG PO (21:16)
[2021-01-13] MEDS: traZODone HCL 50 MG TABLET 150 MG PO (21:17)
[2021-01-13] MEDS: QUEtiapine Fumarate 25 MG TABLET 75 MG PO (21:17)
[2021-01-13 21:22] VITALS: BP 117/56; PULSE 86; RESP 18; TEMP 36.5; O2SAT 96
[2021-01-14 06:00] VITALS: BP 118/72; PULSE 82; RESP 20; TEMP 36.6; O2SAT 97
[2021-01-14] MEDS: LORazepam 1 MG TABLET PO ×3 (08:16→20:17)
[2021-01-14] MEDS: Cholecalciferol (Vitamin D3) 25 MCG TABLET 50 MCG PO (08:16)
[2021-01-14] MEDS: Fluticasone Propionate Nasal 16 GM SPRAY 1 SPRAY NOSTRIL-B (08:17)
[2021-01-14] MEDS: Thiamine HCL 100 MG TABLET PO (08:17)
[2021-01-14] MEDS: Amphetamine Mixed Salts 20 MG TABLET PO (08:17)
[2021-01-14] MEDS: Lithium Carbonate ER 300 MG TABLET.ER 600 MG PO ×2 (08:17→20:16)
[2021-01-14] MEDS: hydrOXYzine HCL 25 MG TABLET PO ×2 (08:19→20:17)
[2021-01-14] MEDS: QUEtiapine Fumarate 100 MG TABLET PO ×2 (13:31→20:17)
--- NOTE | 2021-01-14 14:44 | HO.PSYCHPN ---
Subjective Subjective Date of Service: 01/14/21 Reason For Visit: SI Interim History: pt observed several times walking the halls with 1:1 staff or seated at a table in the milieu with 1:1 staff. calm. per staff, pt requesting seroquel 100 mg be available twice today in the event it is necessary. today is the anniversary of the still of the baby she was meant to raise with her friend. per senior staff consultant, dloing sticker books in the kitchen area, other arts and crafts. very sad. napped much of the day yesterday. per SW report today, Very sad today. Just took a PRN, crying a lot. Reported feeling dissociative earlier but that it was okay because it kept them somewhat distance from the feelings. No active SI as of this morning, but they?re definitely having a harder afternoon. Mental Status Exam Mental Status Exam Narrative: observed in milieu, variably seated and walking, calm, interacting with 1:1 staff. denying SI to staff. Diagnostics Vital Signs (24Hr): Vital Signs - 24 hr 01/13/21 21:16 01/13/21 21:22 01/14/21 06:00 Temperature 97.7 F 97.8 F Pulse Rate 86 86 82 Respiratory Rate 18 20 Blood Pressure 117/56 L 117/56 L 118/72 Pulse Oximetry 96 97 Body Mass Index 40.3 Labs Results: 12/16/20 13:36 12/16/20 13:36 Medications Medications Current Medications Acetaminophen (Acetaminophen 325 Mg Tablet) 650 mg PO QID PRN PRN Reason: Pain Last Admin: 01/12/21 14:38 Dose: 650 mg Documented by: Al Hydroxide/Mg Hydroxide (Magnesium Hydrox/Alum Hydrox 30 Ml Oral.Susp) 30 ml PO Q6H PRN PRN Reason: Heartburn/Nausea Amphetamine/Dextroamphetamine (Amphetamine Mixed Salts 10 Mg Tablet) 10 mg PO DAILY@1400 [facility] Last Admin: 01/13/21 13:54 Dose: 10 mg Documented by: Amphetamine/Dextroamphetamine (Amphetamine Mixed Salts 20 Mg Tablet) 20 mg PO DAILY [facility] Last Admin: 01/14/21 08:17 Dose: 20 mg Documented by: Docusate Sodium (Docusate Sodium 100 Mg Capsule) 100 mg PO DAILY PRN PRN Reason: Constipation Last Admin: 01/07/21 12:29 Dose: 100 mg Documented by: Fluticasone Propionate (Fluticasone Propionate Nasal 16 Gm [place]) 1 spray NOSTRIL-B DAILY [facility] Last Admin: 01/14/21 08:17 Dose: 1 spray Documented by: Hydroxyzine HCl (Hydroxyzine Hcl 25 Mg Tablet) 25 mg PO Q6H PRN PRN Reason: Anxiety Last Admin: 01/14/21 08:19 Dose: 25 mg Documented by: Ibuprofen (Ibuprofen 600 Mg Tablet) 600 mg PO DAILY PRN PRN Reason: cramping Last Admin: 01/13/21 08:30 Dose: 600 mg Documented by: Ida Carbonate (Ida Carbonate Er 300 Mg Tablet.Er) 600 mg PO BID [facility] Last Admin: 01/14/21 08:17 Dose: 600 mg Documented by: Lorazepam (Lorazepam 1 Mg Tablet) 1 mg PO BID [facility] Last Admin: 01/14/21 08:16 Dose: 1 mg Documented by: Lorazepam (Lorazepam 1 Mg Tablet) 1 mg PO DAILY PRN PRN Reason: Anxiety Last Admin: 01/14/21 13:31 Dose: 1 mg Documented by: Magnesium Hydroxide (Milk Of Magnesia 30 Ml Oral.Susp) 30 ml PO DAILY PRN PRN Reason: Constipation Last Admin: 01/07/21 12:29 Dose: 30 ml Documented by: Nicotine Polacrilex (Nicotine Polacrilex 2 Mg Gum) 2 mg BUCCAL Q1H PRN PRN Reason: Nicotine Cravings Patient Own Med ( Desvenlafaxine Succinate [Pristiq] 100 Mg Tablet Extended Releas 1 each PO DAILY [facility] Last Admin: 01/14/21 08:17 Dose: 1 each Documented by: Prazosin HCl (Prazosin Hcl 5 Mg Capsule) 10 mg PO BEDTIME [facility]; Protocol Last Admin: 01/13/21 21:16 Dose: 10 mg Documented by: Quetiapine Fumarate (Quetiapine Fumarate 25 Mg Tablet) 75 mg PO BEDTIME [facility] Last Admin: 01/13/21 21:17 Dose: 75 mg Documented by: Quetiapine Fumarate (Quetiapine Fumarate 100 Mg Tablet) 100 mg PO BID PRN PRN Reason: severe anxiety Last Admin: 01/14/21 13:31 Dose: 100 mg Documented by: Thiamine HCl (Thiamine Hcl 100 Mg Tablet) 100 mg PO DAILY [facility] Last Admin: 01/14/21 08:17 Dose: 100 mg Documented by: Trazodone HCl (Trazodone Hcl 50 Mg Tablet) 150 mg PO BEDTIME [facility] Last Admin: 01/13/21 21:17 Dose: 150 mg Documented by: Vitamin D (Cholecalciferol (Vitamin D3) 25 Mcg Tablet) 50 mcg PO DAILY [facility] Last Admin: 01/14/21 08:16 Dose: 50 mcg Documented by: Allergies Allergies Allergy/AdvReac Type Severity Reaction Status Date / Time oseltamivir [From TAMIFLU] Allergy Unknown FELT LIKE Unverified 12/20/19 19:22 BUGS WERE ALL OVER ME . Sulfa (Sulfonamide Allergy Unknown HIVES Unverified 12/20/19 19:22 Antibiotics) [SULFA (SULFONAMIDE ANTIBIOTICS)] sulfamethoxazole Allergy Unknown HIVES Unverified 12/20/19 19:22 [From BACTRIM] trimethoprim [From BACTRIM] Allergy Unknown HIVES Unverified 12/20/19 19:22 Assessment & Plan Assessment & Plan (1) Recurrent major depression-severe: Status: Acute Code(s): F33.2 - Major depressive disorder, recurrent severe without psychotic features (2) Borderline personality disorder: Status: Acute Code(s): F60.3 - Borderline personality disorder (3) PTSD (post-traumatic stress disorder): Status: Acute Code(s): F43.10 - Post-traumatic stress disorder, unspecified (4) Suicidal ideation: Status: Acute Code(s): R45.851 - Suicidal ideations Assessment and Plan: -continue home medications regimen. -scheduled trazodone at HS as of 12/25. -seroquel 100 BID PRN started 01/14 for severe anxiety. -support during adjustment period. 01/09/21: status change to 5 minutes checks on 01/09- no self harm behaviors/ monitor safety/ Pt in agreement to let staff know if not feeling safe 01/10/21: Coverage: No changes in plan of care. 01/11/21: Coverage: Per pt request changed Ativan tid prn to bid scheduled and qd prn as pt is using two per day scheduled. Pt reports sleep had improved with this use although dreams were still difficult. Discussed extra support for difficult days which she agrees will be helfpul. Much later in the day informed that pt had shared that she had tied socks together in an attempt to strangle herself. She is now on one to one. Continue to monitor process concerns. 01/12/21: One to one in place. Today is the anniversary of the last heartbeat heard of the baby. Pt grieving, isolated. Support, respect offered. No medication changes. Available to pt as needed. Greater than 50% of the session was spent on counseling and/or coordination of care Reason for contiued inpatient stay Substantial Risk for: harm to self, inability to function and rapid decompensation
[2021-01-14 18:00] VITALS: BP 127/79; PULSE 99; TEMP 36.6; O2SAT 98
[2021-01-14 20:15] VITALS: BP 119/66; PULSE 94; RESP 18; TEMP 36.4; O2SAT 95
[2021-01-14 20:17] VITALS: BP 119/66; PULSE 94
[2021-01-14] MEDS: Prazosin HCL 5 MG CAPSULE 10 MG PO (20:17)
[2021-01-14] MEDS: traZODone HCL 50 MG TABLET 150 MG PO (20:17)
[2021-01-14] MEDS: QUEtiapine Fumarate 25 MG TABLET 75 MG PO (20:17)
[2021-01-15] MEDS: Fluticasone Propionate Nasal 16 GM SPRAY 1 SPRAY NOSTRIL-B (08:57)
[2021-01-15] MEDS: Thiamine HCL 100 MG TABLET PO (08:57)
[2021-01-15] MEDS: Lithium Carbonate ER 300 MG TABLET.ER 600 MG PO ×2 (08:57→20:15)
[2021-01-15] MEDS: LORazepam 1 MG TABLET PO ×3 (08:57→20:15)
[2021-01-15] MEDS: Amphetamine Mixed Salts 20 MG TABLET PO (08:57)
[2021-01-15] MEDS: Cholecalciferol (Vitamin D3) 25 MCG TABLET 50 MCG PO (08:57)
[2021-01-15] MEDS: Ibuprofen 600 MG TABLET PO (12:41)
--- NOTE | 2021-01-15 13:55 | HO.PSYCHPN ---
Subjective Subjective Date of Service: 01/15/21 Reason For Visit: SI Interim History: pt observed in the milieu, seated with 1:1 staff, talking and laughing. per staff, pt has been having thoguhts of SIB in the past 24H. slept after 9 pm having had some seroquel and atarax. pleasant, melancholy. endorsing SI, said of yesterday, trying to survive the day. slept through the night. per collateral from FRANCISCA Ambrose today, They are in a bit of a fog this morning but feel like some of the strong emotions from yesterday are still lingering. They reported having strong SI yesterday evening and having the PRNs for them to get through it was helpful. They are still hoping to try coming off 1:1 in increments and will talk again tomorrow about whether they want to try for a few hours. They said today they want to remain on in case it is another difficult day. They are able to engage in some future oriented thinking and talked with me about ways to increase connection and support when they leave (ie: empty arms bereavement groups). Mental Status Exam Mental Status Exam Narrative: observed in milieu, seated and talking and laughing with 1:1 staff. endorsed SI last evening. Diagnostics Vital Signs (24Hr): Vital Signs - 24 hr 01/14/21 18:00 01/14/21 20:15 01/14/21 20:17 Temperature 97.9 F 97.6 F Pulse Rate 99 94 94 Respiratory Rate 18 Blood Pressure 127/79 119/66 119/66 Pulse Oximetry 98 95 Body Mass Index 40.3 Labs Results: 12/16/20 13:36 12/16/20 13:36 Medications Medications Current Medications Acetaminophen (Acetaminophen 325 Mg Tablet) 650 mg PO QID PRN PRN Reason: Pain Last Admin: 01/12/21 14:38 Dose: 650 mg Documented by: Al Hydroxide/Mg Hydroxide (Magnesium Hydrox/Alum Hydrox 30 Ml Oral.Susp) 30 ml PO Q6H PRN PRN Reason: Heartburn/Nausea Amphetamine/Dextroamphetamine (Amphetamine Mixed Salts 10 Mg Tablet) 10 mg PO DAILY@1400 [facility] Last Admin: 01/14/21 15:05 Dose: Not Given Documented by: Amphetamine/Dextroamphetamine (Amphetamine Mixed Salts 20 Mg Tablet) 20 mg PO DAILY [facility] Last Admin: 01/15/21 08:57 Dose: 20 mg Documented by: Docusate Sodium (Docusate Sodium 100 Mg Capsule) 100 mg PO DAILY PRN PRN Reason: Constipation Last Admin: 01/07/21 12:29 Dose: 100 mg Documented by: Fluticasone Propionate (Fluticasone Propionate Nasal 16 Gm [place]) 1 spray NOSTRIL-B DAILY [facility] Last Admin: 01/15/21 08:57 Dose: 1 spray Documented by: Hydroxyzine HCl (Hydroxyzine Hcl 25 Mg Tablet) 25 mg PO Q6H PRN PRN Reason: Anxiety Last Admin: 01/14/21 20:17 Dose: 25 mg Documented by: Ibuprofen (Ibuprofen 600 Mg Tablet) 600 mg PO DAILY PRN PRN Reason: cramping Last Admin: 01/15/21 12:41 Dose: 600 mg Documented by: Clover Carbonate (Clover Carbonate Er 300 Mg Tablet.Er) 600 mg PO BID [facility] Last Admin: 01/15/21 08:57 Dose: 600 mg Documented by: Lorazepam (Lorazepam 1 Mg Tablet) 1 mg PO BID [facility] Last Admin: 01/15/21 08:57 Dose: 1 mg Documented by: Lorazepam (Lorazepam 1 Mg Tablet) 1 mg PO DAILY PRN PRN Reason: Anxiety Last Admin: 01/15/21 13:23 Dose: 1 mg Documented by: Magnesium Hydroxide (Milk Of Magnesia 30 Ml Oral.Susp) 30 ml PO DAILY PRN PRN Reason: Constipation Last Admin: 01/07/21 12:29 Dose: 30 ml Documented by: Nicotine Polacrilex (Nicotine Polacrilex 2 Mg Gum) 2 mg BUCCAL Q1H PRN PRN Reason: Nicotine Cravings Patient Own Med ( Desvenlafaxine Succinate [Pristiq] 100 Mg Tablet Extended Releas 1 each PO DAILY [facility] Last Admin: 01/15/21 08:58 Dose: 1 each Documented by: Prazosin HCl (Prazosin Hcl 5 Mg Capsule) 10 mg PO BEDTIME [facility]; Protocol Last Admin: 01/14/21 20:17 Dose: 10 mg Documented by: Quetiapine Fumarate (Quetiapine Fumarate 25 Mg Tablet) 75 mg PO BEDTIME [facility] Last Admin: 01/14/21 20:17 Dose: 75 mg Documented by: Quetiapine Fumarate (Quetiapine Fumarate 100 Mg Tablet) 100 mg PO BID PRN PRN Reason: severe anxiety Last Admin: 01/14/21 20:17 Dose: 100 mg Documented by: Thiamine HCl (Thiamine Hcl 100 Mg Tablet) 100 mg PO DAILY [facility] Last Admin: 01/15/21 08:57 Dose: 100 mg Documented by: Trazodone HCl (Trazodone Hcl 50 Mg Tablet) 150 mg PO BEDTIME [facility] Last Admin: 01/14/21 20:17 Dose: 150 mg Documented by: Vitamin D (Cholecalciferol (Vitamin D3) 25 Mcg Tablet) 50 mcg PO DAILY [facility] Last Admin: 01/15/21 08:57 Dose: 50 mcg Documented by: Allergies Allergies Allergy/AdvReac Type Severity Reaction Status Date / Time oseltamivir [From TAMIFLU] Allergy Unknown FELT LIKE Unverified 12/20/19 19:22 BUGS WERE ALL OVER ME . Sulfa (Sulfonamide Allergy Unknown HIVES Unverified 12/20/19 19:22 Antibiotics) [SULFA (SULFONAMIDE ANTIBIOTICS)] sulfamethoxazole Allergy Unknown HIVES Unverified 12/20/19 19:22 [From BACTRIM] trimethoprim [From BACTRIM] Allergy Unknown HIVES Unverified 12/20/19 19:22 Assessment & Plan Assessment & Plan (1) Recurrent major depression-severe: Status: Acute Code(s): F33.2 - Major depressive disorder, recurrent severe without psychotic features (2) Borderline personality disorder: Status: Acute Code(s): F60.3 - Borderline personality disorder (3) PTSD (post-traumatic stress disorder): Status: Acute Code(s): F43.10 - Post-traumatic stress disorder, unspecified (4) Suicidal ideation: Status: Acute Code(s): R45.851 - Suicidal ideations Assessment and Plan: -continue home medications regimen. -scheduled trazodone at HS as of 12/25. -seroquel 100 BID PRN started 01/14 for severe anxiety. -retry weaning 1:1 in coming days as anniversary date has passed. -support during adjustment period. 01/09/21: status change to 5 minutes checks on 01/09- no self harm behaviors/ monitor safety/ Pt in agreement to let staff know if not feeling safe 01/10/21: Coverage: No changes in plan of care. 01/11/21: Coverage: Per pt request changed Ativan tid prn to bid scheduled and qd prn as pt is using two per day scheduled. Pt reports sleep had improved with this use although dreams were still difficult. Discussed extra support for difficult days which she agrees will be helfpul. Much later in the day informed that pt had shared that she had tied socks together in an attempt to strangle herself. She is now on one to one. Continue to monitor process concerns. 01/12/21: One to one in place. Today is the anniversary of the last heartbeat heard of the baby. Pt grieving, isolated. Support, respect offered. No medication changes. Available to pt as needed. Greater than 50% of the session was spent on counseling and/or coordination of care Reason for contiued inpatient stay Substantial Risk for: harm to self, inability to function and rapid decompensation
[2021-01-15 15:00] VITALS: BP 134/66; PULSE 92; RESP 20; TEMP 36.4; O2SAT 96
[2021-01-15 20:16] VITALS: BP 126/66; PULSE 85
[2021-01-15] MEDS: Prazosin HCL 5 MG CAPSULE 10 MG PO (20:16)
[2021-01-15] MEDS: traZODone HCL 50 MG TABLET 150 MG PO (20:16)
[2021-01-15] MEDS: QUEtiapine Fumarate 25 MG TABLET 75 MG PO (20:17)
[2021-01-15] MEDS: hydrOXYzine HCL 25 MG TABLET PO (20:18)
[2021-01-15 21:52] VITALS: BP 126/66; PULSE 85; RESP 18; TEMP 36.8; O2SAT 97
[2021-01-16 06:28] VITALS: BP 121/69; PULSE 74; RESP 18; TEMP 36.4; O2SAT 98
[2021-01-16] MEDS: LORazepam 1 MG TABLET PO ×3 (07:51→22:42)
[2021-01-16] MEDS: Thiamine HCL 100 MG TABLET PO (07:52)
[2021-01-16] MEDS: Cholecalciferol (Vitamin D3) 25 MCG TABLET 50 MCG PO (07:52)
[2021-01-16] MEDS: Lithium Carbonate ER 300 MG TABLET.ER 600 MG PO ×2 (07:52→22:26)
[2021-01-16] MEDS: Amphetamine Mixed Salts 20 MG TABLET PO (07:52)
[2021-01-16] MEDS: Fluticasone Propionate Nasal 16 GM SPRAY 1 SPRAY NOSTRIL-B (07:53)
[2021-01-16] MEDS: Amphetamine Mixed Salts 10 MG TABLET PO (15:05)
--- NOTE | 2021-01-16 16:31 | HO.PSYCHPN ---
Subjective Subjective Date of Service: 01/16/21 Reason For Visit: SI Interim History: pt observed on the unit after 1 pm seated in the milieu beside 1:1 staff, smiling and talking. per FRANCISCA Gibbs, earlier in the day pt had had what appeared to her to be a dissociative episode, talking about being small and the other being big, talking about themself in the third person. pt noted they needed to go to sleep in order to bring jonathon back, which is what they then did. this is in the context of recent abandonment fear re therapist when they disclosed to therapist that they had attempted suicide in the hospital. per staff, no notable events overnight. Mental Status Exam Mental Status Exam Narrative: observed in milieu, seated and talking and laughing with 1:1 staff. Diagnostics Vital Signs (24Hr): Vital Signs - 24 hr 01/15/21 20:16 01/15/21 21:52 01/16/21 06:28 Temperature 98.2 F 97.6 F Pulse Rate 85 85 74 Respiratory Rate 18 18 Blood Pressure 126/66 126/66 121/69 Pulse Oximetry 97 98 Body Mass Index 40.3 Labs Results: 12/16/20 13:36 12/16/20 13:36 Medications Medications Current Medications Acetaminophen (Acetaminophen 325 Mg Tablet) 650 mg PO QID PRN PRN Reason: Pain Last Admin: 01/12/21 14:38 Dose: 650 mg Documented by: Al Hydroxide/Mg Hydroxide (Magnesium Hydrox/Alum Hydrox 30 Ml Oral.Susp) 30 ml PO Q6H PRN PRN Reason: Heartburn/Nausea Amphetamine/Dextroamphetamine (Amphetamine Mixed Salts 10 Mg Tablet) 10 mg PO DAILY@1400 [facility] Last Admin: 01/16/21 15:05 Dose: 10 mg Documented by: Amphetamine/Dextroamphetamine (Amphetamine Mixed Salts 20 Mg Tablet) 20 mg PO DAILY [facility] Last Admin: 01/16/21 07:52 Dose: 20 mg Documented by: Docusate Sodium (Docusate Sodium 100 Mg Capsule) 100 mg PO DAILY PRN PRN Reason: Constipation Last Admin: 01/07/21 12:29 Dose: 100 mg Documented by: Fluticasone Propionate (Fluticasone Propionate Nasal 16 Gm [place]) 1 spray NOSTRIL-B DAILY [facility] Last Admin: 01/16/21 07:53 Dose: 1 spray Documented by: Hydroxyzine HCl (Hydroxyzine Hcl 25 Mg Tablet) 25 mg PO Q6H PRN PRN Reason: Anxiety Last Admin: 01/15/21 20:18 Dose: 25 mg Documented by: Ibuprofen (Ibuprofen 600 Mg Tablet) 600 mg PO DAILY PRN PRN Reason: cramping Last Admin: 01/15/21 12:41 Dose: 600 mg Documented by: [place] Carbonate ([place] Carbonate Er 300 Mg Tablet.Er) 600 mg PO BID [facility] Last Admin: 01/16/21 07:52 Dose: 600 mg Documented by: Lorazepam (Lorazepam 1 Mg Tablet) 1 mg PO BID [facility] Last Admin: 01/16/21 07:51 Dose: 1 mg Documented by: Lorazepam (Lorazepam 1 Mg Tablet) 1 mg PO DAILY PRN PRN Reason: Anxiety Magnesium Hydroxide (Milk Of Magnesia 30 Ml Oral.Susp) 30 ml PO DAILY PRN PRN Reason: Constipation Last Admin: 01/07/21 12:29 Dose: 30 ml Documented by: Nicotine Polacrilex (Nicotine Polacrilex 2 Mg Gum) 2 mg BUCCAL Q1H PRN PRN Reason: Nicotine Cravings Patient Own Med ( Desvenlafaxine Succinate [Pristiq] 100 Mg Tablet Extended Releas 1 each PO DAILY [facility] Last Admin: 01/16/21 07:53 Dose: 1 each Documented by: Prazosin HCl (Prazosin Hcl 5 Mg Capsule) 10 mg PO BEDTIME [facility]; Protocol Last Admin: 01/15/21 20:16 Dose: 10 mg Documented by: Quetiapine Fumarate (Quetiapine Fumarate 25 Mg Tablet) 75 mg PO BEDTIME [facility] Last Admin: 01/15/21 20:17 Dose: 75 mg Documented by: Quetiapine Fumarate (Quetiapine Fumarate 100 Mg Tablet) 100 mg PO BID PRN PRN Reason: severe anxiety Last Admin: 01/14/21 20:17 Dose: 100 mg Documented by: Thiamine HCl (Thiamine Hcl 100 Mg Tablet) 100 mg PO DAILY [facility] Last Admin: 01/16/21 07:52 Dose: 100 mg Documented by: Trazodone HCl (Trazodone Hcl 50 Mg Tablet) 150 mg PO BEDTIME [facility] Last Admin: 01/15/21 20:16 Dose: 150 mg Documented by: Vitamin D (Cholecalciferol (Vitamin D3) 25 Mcg Tablet) 50 mcg PO DAILY [facility] Last Admin: 01/16/21 07:52 Dose: 50 mcg Documented by: Allergies Allergies Allergy/AdvReac Type Severity Reaction Status Date / Time oseltamivir [From TAMIFLU] Allergy Unknown FELT LIKE Unverified 12/20/19 19:22 BUGS WERE ALL OVER ME . Sulfa (Sulfonamide Allergy Unknown HIVES Unverified 12/20/19 19:22 Antibiotics) [SULFA (SULFONAMIDE ANTIBIOTICS)] sulfamethoxazole Allergy Unknown HIVES Unverified 12/20/19 19:22 [From BACTRIM] trimethoprim [From BACTRIM] Allergy Unknown HIVES Unverified 12/20/19 19:22 Assessment & Plan Assessment & Plan (1) Recurrent major depression-severe: Status: Acute Code(s): F33.2 - Major depressive disorder, recurrent severe without psychotic features (2) Borderline personality disorder: Status: Acute Code(s): F60.3 - Borderline personality disorder (3) PTSD (post-traumatic stress disorder): Status: Acute Code(s): F43.10 - Post-traumatic stress disorder, unspecified (4) Suicidal ideation: Status: Acute Code(s): R45.851 - Suicidal ideations Assessment and Plan: -continue home medications regimen. -scheduled trazodone at HS as of 12/25. -seroquel 100 BID PRN started 01/14 for severe anxiety. -retry weaning 1:1 in coming days as anniversary date has passed. -support during adjustment period. -care to be transferred to [facility] as of 01/19. 01/09/21: status change to 5 minutes checks on 01/09- no self harm behaviors/ monitor safety/ Pt in agreement to let staff know if not feeling safe 01/10/21: Coverage: No changes in plan of care. 01/11/21: Coverage: Per pt request changed Ativan tid prn to bid scheduled and qd prn as pt is using two per day scheduled. Pt reports sleep had improved with this use although dreams were still difficult. Discussed extra support for difficult days which she agrees will be helfpul. Much later in the day informed that pt had shared that she had tied socks together in an attempt to strangle herself. She is now on one to one. Continue to monitor process concerns. 01/12/21: One to one in place. Today is the anniversary of the last heartbeat heard of the baby. Pt grieving, isolated. Support, respect offered. No medication changes. Available to pt as needed. Greater than 50% of the session was spent on counseling and/or coordination of care Reason for contiued inpatient stay Substantial Risk for: harm to self
[2021-01-16 22:26] VITALS: BP 131/83; PULSE 87
[2021-01-16] MEDS: QUEtiapine Fumarate 25 MG TABLET 75 MG PO (22:26)
[2021-01-16] MEDS: Prazosin HCL 5 MG CAPSULE 10 MG PO (22:26)
[2021-01-16] MEDS: traZODone HCL 50 MG TABLET 150 MG PO (22:26)
[2021-01-16 22:37] VITALS: TEMP 36.3; O2SAT 95
[2021-01-17 08:05] VITALS: BP 125/68; PULSE 106; RESP 16; TEMP 36.6; O2SAT 99
[2021-01-17] MEDS: LORazepam 1 MG TABLET PO ×2 (09:49→22:03)
[2021-01-17] MEDS: Amphetamine Mixed Salts 20 MG TABLET PO (09:49)
[2021-01-17] MEDS: Cholecalciferol (Vitamin D3) 25 MCG TABLET 50 MCG PO (09:49)
[2021-01-17] MEDS: Thiamine HCL 100 MG TABLET PO (09:50)
[2021-01-17] MEDS: Lithium Carbonate ER 300 MG TABLET.ER 600 MG PO ×2 (09:50→22:03)
[2021-01-17] MEDS: Fluticasone Propionate Nasal 16 GM SPRAY 1 SPRAY NOSTRIL-B (09:51)
--- NOTE | 2021-01-17 11:32 | P.PNPSI_ITS ---
Subjective Subjective Date of Service: 01/19/21 Reason For Visit: SI Interim History: Patient seen and discussed with team. Patient evaluated this morning and upon interview they report they have been dissociating and yesterday was difficult. Has continued to feel grief and feels triggered when they go to the shower due to recent disclosure of self harm, attempting to strangle self in shower. Says they feel scared of myself and endorses SI, urges to self harm. Has continued on 1:1 safety checks. Sleep is good, slept through the night. Utilizing coping skills and appropriately a dvocating for support from peers and staff. In the milieu, patient is safe and appropriate in behavior. Mental Status Exam Mental Status Exam Narrative: A&O. Well groomed, good hygiene, short hair, overweight. Poor eye contact, attentive. No Tics or Tremors. No abnormal involuntary movements. Calm, cooperative, engaged. Non-pressured speech, spontaneous with regular rate and rhythm, normal volume and prosody. No prolonged speech latency or dysarthria. Mood is ?depressed,? affect is dysphoric. Endorses SI with plan to strangle self, denies intent upon inquiry today. Denies SIB/HI upon inquiry. Denies A/VH or delusional thought content. Thoughts are coherent, organized. No known cognitive or memory impairment. Insight/ Judgment fair and adequate. Diagnostics Vital Signs (24Hr): Vital Signs - 24 hr 01/16/21 22:26 01/16/21 22:37 01/17/21 08:05 Temperature 97.3 F 97.9 F Pulse Rate 87 106 H Respiratory Rate 16 Blood Pressure 131/83 125/68 Pulse Oximetry 95 99 Body Mass Index 40.3 Labs Results: 12/16/20 13:36 12/16/20 13:36 Medications Medications Current Medications Acetaminophen (Acetaminophen 325 Mg Tablet) 650 mg PO QID PRN PRN Reason: Pain Last Admin: 01/12/21 14:38 Dose: 650 mg Documented by: Al Hydroxide/Mg Hydroxide (Magnesium Hydrox/Alum Hydrox 30 Ml Oral.Susp) 30 ml PO Q6H PRN PRN Reason: Heartburn/Nausea Amphetamine/Dextroamphetamine (Amphetamine Mixed Salts 10 Mg Tablet) 10 mg PO DAILY@1400 [facility] Last Admin: 01/16/21 15:05 Dose: 10 mg Documented by: Amphetamine/Dextroamphetamine (Amphetamine Mixed Salts 20 Mg Tablet) 20 mg PO DAILY [facility] Last Admin: 01/17/21 09:49 Dose: 20 mg Documented by: Docusate Sodium (Docusate Sodium 100 Mg Capsule) 100 mg PO DAILY PRN PRN Reason: Constipation Last Admin: 01/07/21 12:29 Dose: 100 mg Documented by: Fluticasone Propionate (Fluticasone Propionate Nasal 16 Gm [place]) 1 spray NOSTRIL-B DAILY [facility] Last Admin: 01/17/21 09:51 Dose: 1 spray Documented by: Hydroxyzine HCl (Hydroxyzine Hcl 25 Mg Tablet) 25 mg PO Q6H PRN PRN Reason: Anxiety Last Admin: 01/15/21 20:18 Dose: 25 mg Documented by: Ibuprofen (Ibuprofen 600 Mg Tablet) 600 mg PO DAILY PRN PRN Reason: cramping Last Admin: 01/15/21 12:41 Dose: 600 mg Documented by: [place] Carbonate ([place] Carbonate Er 300 Mg Tablet.Er) 600 mg PO BID [facility] Last Admin: 01/17/21 09:50 Dose: 600 mg Documented by: Lorazepam (Lorazepam 1 Mg Tablet) 1 mg PO DAILY PRN PRN Reason: Anxiety Last Admin: 01/16/21 16:37 Dose: 1 mg Documented by: Lorazepam (Lorazepam 1 Mg Tablet) 1 mg PO BID [facility] Last Admin: 01/17/21 09:49 Dose: 1 mg Documented by: Magnesium Hydroxide (Milk Of Magnesia 30 Ml Oral.Susp) 30 ml PO DAILY PRN PRN Reason: Constipation Last Admin: 01/07/21 12:29 Dose: 30 ml Documented by: Nicotine Polacrilex (Nicotine Polacrilex 2 Mg Gum) 2 mg BUCCAL Q1H PRN PRN Reason: Nicotine Cravings Patient Own Med ( Desvenlafaxine Succinate [Pristiq] 100 Mg Tablet Extended Releas 1 each PO DAILY [facility] Last Admin: 01/17/21 09:50 Dose: 1 each Documented by: Prazosin HCl (Prazosin Hcl 5 Mg Capsule) 10 mg PO BEDTIME [facility]; Protocol Last Admin: 01/16/21 22:26 Dose: 10 mg Documented by: Quetiapine Fumarate (Quetiapine Fumarate 50 Mg Tablet) 50 mg PO DAILY PRN PRN Reason: mod-severe anxiety/ agitation Quetiapine Fumarate (Quetiapine Fumarate 25 Mg Tablet) 25 mg PO DAILY PRN PRN Reason: mild-mod anxiety/ agitation Quetiapine Fumarate (Quetiapine Fumarate 100 Mg Tablet) 100 mg PO DAILY PRN PRN Reason: severe anxiety Thiamine HCl (Thiamine Hcl 100 Mg Tablet) 100 mg PO DAILY [facility] Last Admin: 01/17/21 09:50 Dose: 100 mg Documented by: Trazodone HCl (Trazodone Hcl 50 Mg Tablet) 150 mg PO BEDTIME [facility] Last Admin: 01/16/21 22:26 Dose: 150 mg Documented by: Vitamin D (Cholecalciferol (Vitamin D3) 25 Mcg Tablet) 50 mcg PO DAILY [facility] Last Admin: 01/17/21 09:49 Dose: 50 mcg Documented by: Allergies Allergies Allergy/AdvReac Type Severity Reaction Status Date / Time oseltamivir [From TAMIFLU] Allergy Unknown FELT LIKE Unverified 12/20/19 19:22 BUGS WERE ALL OVER ME . Sulfa (Sulfonamide Allergy Unknown HIVES Unverified 12/20/19 19:22 Antibiotics) [SULFA (SULFONAMIDE ANTIBIOTICS)] sulfamethoxazole Allergy Unknown HIVES Unverified 12/20/19 19:22 [From BACTRIM] trimethoprim [From BACTRIM] Allergy Unknown HIVES Unverified 12/20/19 19:22 Assessment & Plan Assessment & Plan (1) Recurrent major depression-severe: Status: Acute Code(s): F33.2 - Major depressive disorder, recurrent severe without psychotic features (2) Borderline personality disorder: Status: Acute Code(s): F60.3 - Borderline personality disorder (3) PTSD (post-traumatic stress disorder): Status: Acute Code(s): F43.10 - Post-traumatic stress disorder, unspecified (4) Suicidal ideation: Status: Acute Code(s): R45.851 - Suicidal ideations Assessment and Plan: -continue home medications regimen. -scheduled trazodone at as of 12/25. -seroquel 100 BID PRN started 01/14 for severe anxiety. -retry weaning 1:1 in coming days as anniversary date has passed. -support during adjustment period. -care to be transferred to [facility] as of 01/19. 01/09/21: status change to 5 minutes checks on 01/09- no self harm behaviors/ monitor safety/ Pt in agreement to let staff know if not feeling safe 01/10/21: Coverage: No changes in plan of care. 01/11/21: Coverage: Per pt request changed Ativan tid prn to bid scheduled and qd prn as pt is using two per day scheduled. Pt reports sleep had improved with this use although dreams were still difficult. Discussed extra support for difficult days which she agrees will be helfpul. Much later in the day informed that pt had shared that she had tied socks together in an attempt to strangle herself. She is now on one to one. Continue to monitor process concerns. 01/12/21: One to one in place. Today is the anniversary of the last heartbeat heard of the baby. Pt grieving, isolated. Support, respect offered. No medication changes. Available to pt as needed. Weekend coverage: Does not want med changes today, has been utilizing coping st rategies on unit and advocating for support, continues on 1:1 due to urges to self harm, has asked staff to stand outside shower and this has helped. Greater than 50% of the session was spent on counseling and/or coordination of care Reason for contiued inpatient stay Substantial Risk for: harm to self and med/psych decompensation
[2021-01-17] MEDS: Amphetamine Mixed Salts 10 MG TABLET PO (13:55)
[2021-01-17 18:00] VITALS: BP 145/79; PULSE 77; RESP 16; TEMP 36.7; O2SAT 96
[2021-01-17 22:02] VITALS: BP 145/79; PULSE 77
[2021-01-17] MEDS: Prazosin HCL 5 MG CAPSULE 10 MG PO (22:02)
[2021-01-17] MEDS: traZODone HCL 50 MG TABLET 150 MG PO (22:03)
[2021-01-17] MEDS: QUEtiapine Fumarate 50 MG TABLET PO (22:03)
[2021-01-18] MEDS: Thiamine HCL 100 MG TABLET PO (09:27)
[2021-01-18] MEDS: Cholecalciferol (Vitamin D3) 25 MCG TABLET 50 MCG PO (09:27)
[2021-01-18] MEDS: Lithium Carbonate ER 300 MG TABLET.ER 600 MG PO ×2 (09:27→20:58)
[2021-01-18] MEDS: Amphetamine Mixed Salts 20 MG TABLET PO (09:27)
[2021-01-18] MEDS: LORazepam 1 MG TABLET PO ×3 (09:28→20:58)
[2021-01-18] MEDS: Fluticasone Propionate Nasal 16 GM SPRAY 1 SPRAY NOSTRIL-B (09:30)
[2021-01-18 10:08] VITALS: BP 121/62; PULSE 74; RESP 16; TEMP 36.5; O2SAT 95
[2021-01-18] MEDS: QUEtiapine Fumarate 25 MG TABLET PO (13:43)
--- NOTE | 2021-01-18 14:42 | HO.PSYCHPN ---
Subjective Subjective Date of Service: 01/18/21 Reason For Visit: SI Interim History: Patient seen and discussed with team. Patient evaluated this morning and upon interview they report they do not feel safe but declines to talk with T/W. Will continue on 1:1 safety checks. Mental Status Exam Mental Status Exam Narrative: A&O. Well groomed, good hygiene, short hair, overweight. Poor eye contact, attentive. No Tics or Tremors. No abnormal involuntary movements. Calm, cooperative, engaged. Non-pressured speech, spontaneous with regular rate and rhythm, normal volume and prosody. No prolonged speech latency or dysarthria. Mood is ?depressed,? affect is dysphoric. Endorses SI with plan to strangle self, denies intent upon inquiry today. Denies SIB/HI upon inquiry. Denies A/VH or delusional thought content. Thoughts are coherent, organized. No known cognitive or memory impairment. Insight/ Judgment fair and adequate. Diagnostics Vital Signs (24Hr): Vital Signs - 24 hr 01/17/21 18:00 01/17/21 22:02 01/18/21 10:08 Temperature 98.1 F 97.7 F Pulse Rate 77 77 74 Respiratory Rate 16 16 Blood Pressure 145/79 H 145/79 H 121/62 Pulse Oximetry 96 95 Body Mass Index 40.3 Labs Results: 12/16/20 13:36 12/16/20 13:36 Medications Medications Current Medications Acetaminophen (Acetaminophen 325 Mg Tablet) 650 mg PO QID PRN PRN Reason: Pain Last Admin: 01/12/21 14:38 Dose: 650 mg Documented by: Al Hydroxide/Mg Hydroxide (Magnesium Hydrox/Alum Hydrox 30 Ml Oral.Susp) 30 ml PO Q6H PRN PRN Reason: Heartburn/Nausea Amphetamine/Dextroamphetamine (Amphetamine Mixed Salts 10 Mg Tablet) 10 mg PO DAILY@1400 [facility] Last Admin: 01/17/21 13:55 Dose: 10 mg Documented by: Amphetamine/Dextroamphetamine (Amphetamine Mixed Salts 20 Mg Tablet) 20 mg PO DAILY [facility] Last Admin: 01/18/21 09:27 Dose: 20 mg Documented by: Docusate Sodium (Docusate Sodium 100 Mg Capsule) 100 mg PO DAILY PRN PRN Reason: Constipation Last Admin: 01/07/21 12:29 Dose: 100 mg Documented by: Fluticasone Propionate (Fluticasone Propionate Nasal 16 Gm [place]) 1 spray NOSTRIL-B DAILY [facility] Last Admin: 01/18/21 09:30 Dose: 1 spray Documented by: Hydroxyzine HCl (Hydroxyzine Hcl 25 Mg Tablet) 25 mg PO Q6H PRN PRN Reason: Anxiety Last Admin: 01/15/21 20:18 Dose: 25 mg Documented by: Ibuprofen (Ibuprofen 600 Mg Tablet) 600 mg PO DAILY PRN PRN Reason: cramping Last Admin: 01/15/21 12:41 Dose: 600 mg Documented by: [place] Carbonate ([place] Carbonate Er 300 Mg Tablet.Er) 600 mg PO BID [facility] Last Admin: 01/18/21 09:27 Dose: 600 mg Documented by: Lorazepam (Lorazepam 1 Mg Tablet) 1 mg PO DAILY PRN PRN Reason: Anxiety Last Admin: 01/18/21 13:43 Dose: 1 mg Documented by: Lorazepam (Lorazepam 1 Mg Tablet) 1 mg PO BID [facility] Last Admin: 01/18/21 09:28 Dose: 1 mg Documented by: Magnesium Hydroxide (Milk Of Magnesia 30 Ml Oral.Susp) 30 ml PO DAILY PRN PRN Reason: Constipation Last Admin: 01/07/21 12:29 Dose: 30 ml Documented by: Nicotine Polacrilex (Nicotine Polacrilex 2 Mg Gum) 2 mg BUCCAL Q1H PRN PRN Reason: Nicotine Cravings Patient Own Med ( Desvenlafaxine Succinate [Pristiq] 100 Mg Tablet Extended Releas 1 each PO DAILY [facility] Last Admin: 01/18/21 09:30 Dose: 1 each Documented by: Prazosin HCl (Prazosin Hcl 5 Mg Capsule) 10 mg PO BEDTIME [facility]; Protocol Last Admin: 01/17/21 22:02 Dose: 10 mg Documented by: Quetiapine Fumarate (Quetiapine Fumarate 50 Mg Tablet) 50 mg PO DAILY PRN PRN Reason: mod-severe anxiety/ agitation Last Admin: 01/17/21 22:03 Dose: 50 mg Documented by: Quetiapine Fumarate (Quetiapine Fumarate 25 Mg Tablet) 25 mg PO DAILY PRN PRN Reason: mild-mod anxiety/ agitation Last Admin: 01/18/21 13:43 Dose: 25 mg Documented by: Quetiapine Fumarate (Quetiapine Fumarate 100 Mg Tablet) 100 mg PO DAILY PRN PRN Reason: severe anxiety Thiamine HCl (Thiamine Hcl 100 Mg Tablet) 100 mg PO DAILY [facility] Last Admin: 01/18/21 09:27 Dose: 100 mg Documented by: Trazodone HCl (Trazodone Hcl 50 Mg Tablet) 150 mg PO BEDTIME [facility] Last Admin: 01/17/21 22:03 Dose: 150 mg Documented by: Vitamin D (Cholecalciferol (Vitamin D3) 25 Mcg Tablet) 50 mcg PO DAILY [facility] Last Admin: 01/18/21 09:27 Dose: 50 mcg Documented by: Allergies Allergies Allergy/AdvReac Type Severity Reaction Status Date / Time oseltamivir [From TAMIFLU] Allergy Unknown FELT LIKE Unverified 12/20/19 19:22 BUGS WERE ALL OVER ME . Sulfa (Sulfonamide Allergy Unknown HIVES Unverified 12/20/19 19:22 Antibiotics) [SULFA (SULFONAMIDE ANTIBIOTICS)] sulfamethoxazole Allergy Unknown HIVES Unverified 12/20/19 19:22 [From BACTRIM] trimethoprim [From BACTRIM] Allergy Unknown HIVES Unverified 12/20/19 19:22 Assessment & Plan Assessment & Plan (1) Recurrent major depression-severe: Status: Acute Code(s): F33.2 - Major depressive disorder, recurrent severe without psychotic features (2) Borderline personality disorder: Status: Acute Code(s): F60.3 - Borderline personality disorder (3) PTSD (post-traumatic stress disorder): Status: Acute Code(s): F43.10 - Post-traumatic stress disorder, unspecified (4) Suicidal ideation: Status: Acute Code(s): R45.851 - Suicidal ideations Assessment and Plan: -continue home medications regimen. -scheduled trazodone at HS as of 12/25. -seroquel 100 BID PRN started 01/14 for severe anxiety. -retry weaning 1:1 in coming days as anniversary date has passed. -support during adjustment period. -care to be transferred to [facility] as of 01/19. 01/09/21: status change to 5 minutes checks on 01/09- no self harm behaviors/ monitor safety/ Pt in agreement to let staff know if not feeling safe 01/10/21: Coverage: No changes in plan of care. 01/11/21: Coverage: Per pt request changed Ativan tid prn to bid scheduled and qd prn as pt is using two per day scheduled. Pt reports sleep had improved with this use although dreams were still difficult. Discussed extra support for difficult days which she agrees will be helfpul. Much later in the day informed that pt had shared that she had tied socks together in an attempt to strangle herself. She is now on one to one. Continue to monitor process concerns. 01/12/21: One to one in place. Today is the anniversary of the last heartbeat heard of the baby. Pt grieving, isolated. Support, respect offered. No medication changes. Available to pt as needed. Weekend coverage: Does not want med changes, continues on 1:1 due to urges to self harm, has asked staff to stand outside shower and this has helped. Withdrawn today and declined to engage in interview. Greater than 50% of the session was spent on counseling and/or coordination of care Reason for contiued inpatient stay Substantial Risk for: harm to self and med/psych decompensation
[2021-01-18 20:09] VITALS: BP 115/57; PULSE 97; RESP 16; TEMP 36.6; O2SAT 98
[2021-01-18 20:57] VITALS: BP 115/57; PULSE 97
[2021-01-18] MEDS: Prazosin HCL 5 MG CAPSULE 10 MG PO (20:57)
[2021-01-18] MEDS: traZODone HCL 50 MG TABLET 150 MG PO (20:57)
[2021-01-18] MEDS: QUEtiapine Fumarate 50 MG TABLET PO (20:58)
[2021-01-19] MEDS: hydrOXYzine HCL 25 MG TABLET PO (05:37)
[2021-01-19 08:15] VITALS: BP 126/71; PULSE 78; RESP 18; TEMP 36.7; O2SAT 97
[2021-01-19] MEDS: LORazepam 1 MG TABLET PO ×3 (08:17→21:44)
[2021-01-19] MEDS: Lithium Carbonate ER 300 MG TABLET.ER 600 MG PO ×2 (08:17→21:44)
[2021-01-19] MEDS: Amphetamine Mixed Salts 20 MG TABLET PO (08:18)
[2021-01-19] MEDS: Cholecalciferol (Vitamin D3) 25 MCG TABLET 50 MCG PO (08:18)
[2021-01-19] MEDS: Thiamine HCL 100 MG TABLET PO (08:18)
[2021-01-19] MEDS: Fluticasone Propionate Nasal 16 GM SPRAY 1 SPRAY NOSTRIL-B (08:19)
--- NOTE | 2021-01-19 13:47 | HO.PSYCHPN ---
Subjective Subjective Date of Service: 01/19/21 Reason For Visit: SI Subjective Notes: Conditional Voluntary Interim History: This chief writer met with pt and clinician Jill. Pt switched to this chief writer as main provider. Pt reports intermittent suicidal ideation. They report it varies from day to day. For instance, they report that yesterday they didn't have suicidal ideation but today they had several thoughts although they denied any plan or intent to hurt themselves. Pt reports that suicide attempt when they tried to tied socks while in the shower last Tuesday, they were thinking about it since morning, attempt occurred in afternoon. Pt reports feeling scare as they think while wrapping socks around neck they were dissociating but while writing note prior to attempt they were very conscious and alert. They worried about not trusting self if 1:1 discontinued. Pt does agree that that coming off 1:1 is goal, as they won't have this many supports when returning home. They agree that step down to PHP would be beneficial. We agreed to meet consistently around 10am this chief writer with clinician so that team is on same page, less splitting. Review of Systems Review of Systems Yes Unobtainable due to mental status Constitutional: Reports body ache(s), Denies chills, Denies fatigue, Denies fever(s), Denies headache(s), Denies malaise and Denies weakness Eyes: Denies diplopia Denies vertigo, Denies dizziness, Denies otalgia, Denies headache(s), Denies mouth pain, Denies post nasal drip, Denies sinus pain, Denies sinus pressure, Denies sore throat and Denies throat swelling Cardiovascular: Denies chest pain, Denies syncope, Denies leg edema, Denies lightheadedness, Denies Loss of Consciousness, Denies palpitations and Denies dyspnea Respiratory: Denies chest congestion, Denies cough and Denies dyspnea Gastrointestinal: Denies abdominal pain, Denies hematochezia, Denies constipation, Denies diarrhea and Denies vomiting Musculoskeletal: Reports myalgias Skin/Breast: Denies erythema and Denies rash Denies confusion, Denies vertigo, Denies dizziness, Denies syncope, Denies headache(s) and Denies weakness Psychiatric: Reports anxiety, Denies confusion, Reports depression, Reports difficulty concentrating, Reports hopelessness, Reports anhedonia, Reports hallucinations and Reports suicidal ideation Endocrine: Denies fatigue and Denies palpitations Allergic/Immunologic: Denies throat swelling Mental Status Exam Mental Status Exam Narrative: Appearance: casually groomed, fair hygiene in NAD Behavior:guarded at times but cooperative psychomotor: no agitation or retardation noted Speech:clear, normal rate/rhythm/volume, spontaneous Thought process:linear Thought content:no signs of psychosis, increasingly more future oriented Mood: anxious Affect: brighter at times SI:passive, denies intent or plan but hesitant about d/c 1:1 today HI:none VH/AH:none Delusions:none Insight/judgment:fair x 2. Memory/cog: alert, oriented x 3. grossly intact to conversational testing. Diagnostics Vital Signs (24Hr): Vital Signs - 24 hr 01/18/21 20:09 01/18/21 20:57 01/19/21 08:15 Temperature 97.8 F 98.0 F Pulse Rate 97 97 78 Respiratory Rate 16 18 Blood Pressure 115/57 L 115/57 L 126/71 Pulse Oximetry 98 97 Body Mass Index 40.3 Labs Results: 12/16/20 13:36 12/16/20 13:36 Medications Medications Current Medications Acetaminophen (Acetaminophen 325 Mg Tablet) 650 mg PO QID PRN PRN Reason: Pain Last Admin: 01/12/21 14:38 Dose: 650 mg Documented by: Al Hydroxide/Mg Hydroxide (Magnesium Hydrox/Alum Hydrox 30 Ml Oral.Susp) 30 ml PO Q6H PRN PRN Reason: Heartburn/Nausea Amphetamine/Dextroamphetamine (Amphetamine Mixed Salts 10 Mg Tablet) 10 mg PO DAILY@1400 [facility] Last Admin: 01/18/21 14:53 Dose: Not Given Documented by: Amphetamine/Dextroamphetamine (Amphetamine Mixed Salts 20 Mg Tablet) 20 mg PO DAILY [facility] Last Admin: 01/19/21 08:18 Dose: 20 mg Documented by: Docusate Sodium (Docusate Sodium 100 Mg Capsule) 100 mg PO DAILY PRN PRN Reason: Constipation Last Admin: 01/07/21 12:29 Dose: 100 mg Documented by: Fluticasone Propionate (Fluticasone Propionate Nasal 16 Gm [place]) 1 spray NOSTRIL-B DAILY [facility] Last Admin: 01/19/21 08:19 Dose: 1 spray Documented by: Hydroxyzine HCl (Hydroxyzine Hcl 25 Mg Tablet) 25 mg PO Q6H PRN PRN Reason: Anxiety Last Admin: 01/19/21 05:37 Dose: 25 mg Documented by: Ibuprofen (Ibuprofen 600 Mg Tablet) 600 mg PO DAILY PRN PRN Reason: cramping Last Admin: 01/15/21 12:41 Dose: 600 mg Documented by: [place] Carbonate ([place] Carbonate Er 300 Mg Tablet.Er) 600 mg PO BID [facility] Last Admin: 01/19/21 08:17 Dose: 600 mg Documented by: Lorazepam (Lorazepam 1 Mg Tablet) 1 mg PO DAILY PRN PRN Reason: Anxiety Last Admin: 01/18/21 13:43 Dose: 1 mg Documented by: Lorazepam (Lorazepam 1 Mg Tablet) 1 mg PO BID [facility] Last Admin: 01/19/21 08:17 Dose: 1 mg Documented by: Magnesium Hydroxide (Milk Of Magnesia 30 Ml Oral.Susp) 30 ml PO DAILY PRN PRN Reason: Constipation Last Admin: 01/07/21 12:29 Dose: 30 ml Documented by: Nicotine Polacrilex (Nicotine Polacrilex 2 Mg Gum) 2 mg BUCCAL Q1H PRN PRN Reason: Nicotine Cravings Patient Own Med ( Desvenlafaxine Succinate [Pristiq] 100 Mg Tablet Extended Releas 1 each PO DAILY [facility] Last Admin: 01/19/21 08:16 Dose: 1 each Documented by: Prazosin HCl (Prazosin Hcl 5 Mg Capsule) 10 mg PO BEDTIME [facility]; Protocol Last Admin: 01/18/21 20:57 Dose: 10 mg Documented by: Quetiapine Fumarate (Quetiapine Fumarate 50 Mg Tablet) 50 mg PO DAILY PRN PRN Reason: mod-severe anxiety/ agitation Last Admin: 01/18/21 20:58 Dose: 50 mg Documented by: Quetiapine Fumarate (Quetiapine Fumarate 25 Mg Tablet) 25 mg PO DAILY PRN PRN Reason: mild-mod anxiety/ agitation Last Admin: 01/18/21 13:43 Dose: 25 mg Documented by: Quetiapine Fumarate (Quetiapine Fumarate 100 Mg Tablet) 100 mg PO DAILY PRN PRN Reason: severe anxiety Thiamine HCl (Thiamine Hcl 100 Mg Tablet) 100 mg PO DAILY [facility] Last Admin: 01/19/21 08:18 Dose: 100 mg Documented by: Trazodone HCl (Trazodone Hcl 50 Mg Tablet) 150 mg PO BEDTIME [facility] Last Admin: 01/18/21 20:57 Dose: 150 mg Documented by: Vitamin D (Cholecalciferol (Vitamin D3) 25 Mcg Tablet) 50 mcg PO DAILY [facility] Last Admin: 01/19/21 08:18 Dose: 50 mcg Documented by: Allergies Allergies Allergy/AdvReac Type Severity Reaction Status Date / Time oseltamivir [From TAMIFLU] Allergy Unknown FELT LIKE Unverified 12/20/19 19:22 BUGS WERE ALL OVER ME . Sulfa (Sulfonamide Allergy Unknown HIVES Unverified 12/20/19 19:22 Antibiotics) [SULFA (SULFONAMIDE ANTIBIOTICS)] sulfamethoxazole Allergy Unknown HIVES Unverified 12/20/19 19:22 [From BACTRIM] trimethoprim [From BACTRIM] Allergy Unknown HIVES Unverified 12/20/19 19:22 Assessment & Plan Assessment & Plan (1) Recurrent major depression-severe: Status: Acute Code(s): F33.2 - Major depressive disorder, recurrent severe without psychotic features (2) Borderline personality disorder: Status: Acute Code(s): F60.3 - Borderline personality disorder (3) PTSD (post-traumatic stress disorder): Status: Acute Code(s): F43.10 - Post-traumatic stress disorder, unspecified (4) Suicidal ideation: Status: Acute Code(s): R45.851 - Suicidal ideations Assessment and Plan: Sandi is a 35 y/o hprefers they/them pronoun w/hx of BPD, incest, self [place] [facility] with increase suicidal thoughts to OD on ativan in setting of friend recently had still (baby which Sandi had plan to take care of). Pt had initially planned to come to hospital two weeks prior with agreement to see [facility], however, this was not possible as did not have bed open. Pt has expressed preference to work with female prescriber. There was initial trial to work with male psychiatrist but it seems rapport was difficult to build therefore pt transferred to [facility] on 01/19. -continue home medications regimen. -scheduled trazodone at [facility] as of 12/25. -seroquel 100 BID PRN started 01/14 for severe anxiety. - discussed consistent meeting with team at 10am to avoid splitting. - continue 1:1 today but will reassess tomorrow Greater than 50% of the session was spent on counseling and/or coordination of care Reason for contiued inpatient stay Substantial Risk for: harm to self
[2021-01-19 21:40] VITALS: BP 132/72; PULSE 98; RESP 18; TEMP 36.7; O2SAT 96
[2021-01-19 21:44] VITALS: BP 132/72; PULSE 98
[2021-01-19] MEDS: traZODone HCL 50 MG TABLET 150 MG PO (21:44)
[2021-01-19] MEDS: Prazosin HCL 5 MG CAPSULE 10 MG PO (21:44)
[2021-01-19] MEDS: QUEtiapine Fumarate 25 MG TABLET PO (21:44)
[2021-01-20 06:00] VITALS: BP 143/77; PULSE 98; RESP 18; TEMP 36.6; O2SAT 98
[2021-01-20] MEDS: Lithium Carbonate ER 300 MG TABLET.ER 600 MG PO ×2 (08:45→23:00)
[2021-01-20] MEDS: LORazepam 1 MG TABLET PO ×2 (08:45→23:01)
[2021-01-20] MEDS: Cholecalciferol (Vitamin D3) 25 MCG TABLET 50 MCG PO (08:45)
[2021-01-20] MEDS: Amphetamine Mixed Salts 20 MG TABLET PO (08:45)
[2021-01-20] MEDS: Thiamine HCL 100 MG TABLET PO (08:45)
[2021-01-20] MEDS: Fluticasone Propionate Nasal 16 GM SPRAY 1 SPRAY NOSTRIL-B (08:46)
--- NOTE | 2021-01-20 11:31 | P.PNPSI_ITS ---
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 Sandi reports friend who had still not talking with them as used to. Pt reports losing connection with close friend as they felt lonely helping friend burry baby. Pt continues to report not trusting self in terms of harming themselves. Continue 1:1 Pt reports sleeping fine. They have been visible in the unit, attends assigned groups. Medication Compliance: Yes Side effects from medications: No Attending Groups: Yes Review of Systems Review of Systems Yes Unobtainable due to mental status Constitutional: Reports body ache(s), Denies chills, Denies fatigue, Denies fever(s), Denies headache(s), Denies malaise and Denies weakness Eyes: Denies diplopia Denies vertigo, Denies dizziness, Denies otalgia, Denies headache(s), Denies mouth pain, Denies post nasal drip, Denies sinus pain, Denies sinus pressure, Denies sore throat and Denies throat swelling Cardiovascular: Denies chest pain, Denies syncope, Denies leg edema, Denies lightheadedness, Denies Loss of Consciousness, Denies palpitations and Denies dyspnea Respiratory: Denies chest congestion, Denies cough and Denies dyspnea Gastrointestinal: Denies abdominal pain, Denies hematochezia, Denies constipation, Denies diarrhea and Denies vomiting Musculoskeletal: Reports myalgias Skin/Breast: Denies erythema and Denies rash Denies confusion, Denies vertigo, Denies dizziness, Denies syncope, Denies headache(s) and Denies weakness Psychiatric: Reports anxiety, Denies confusion, Reports depression, Reports difficulty concentrating, Reports hopelessness, Reports anhedonia, Reports hallucinations and Reports suicidal ideation Endocrine: Denies fatigue and Denies palpitations Allergic/Immunologic: Denies throat swelling Mental Status Exam Mental Status Exam Narrative: Appearance: casually groomed, fair hygiene in NAD Behavior:guarded at times but cooperative psychomotor: no agitation or retardation noted Speech:clear, normal rate/rhythm/volume, spontaneous Thought process:linear Thought content:no signs of psychosis, increasingly more future oriented Mood: anxious Affect: brighter at times SI:passive, denies intent or plan but hesitant about d/c 1:1 today HI:none VH/AH:none Delusions:none Insight/judgment:fair x 2. Memory/cog: alert, oriented x 3. grossly intact to conversational testing. Diagnostics Vital Signs (24Hr): Vital Signs - 24 hr 01/19/21 21:40 01/19/21 21:44 01/20/21 06:00 Temperature 98.1 F 97.8 F Pulse Rate 98 98 98 Respiratory Rate 18 18 Blood Pressure 132/72 132/72 143/77 H Pulse Oximetry 96 98 Body Mass Index 40.3 Labs Results: 12/16/20 13:36 12/16/20 13:36 Medications Medications Current Medications Acetaminophen (Acetaminophen 325 Mg Tablet) 650 mg PO QID PRN PRN Reason: Pain Last Admin: 01/12/21 14:38 Dose: 650 mg Documented by: Al Hydroxide/Mg Hydroxide (Magnesium Hydrox/Alum Hydrox 30 Ml Oral.Susp) 30 ml PO Q6H PRN PRN Reason: Heartburn/Nausea Amphetamine/Dextroamphetamine (Amphetamine Mixed Salts 10 Mg Tablet) 10 mg PO DAILY@1400 [facility] Last Admin: 01/20/21 14:51 Dose: 10 mg Documented by: Amphetamine/Dextroamphetamine (Amphetamine Mixed Salts 20 Mg Tablet) 20 mg PO DAILY [facility] Last Admin: 01/20/21 08:45 Dose: 20 mg Documented by: Docusate Sodium (Docusate Sodium 100 Mg Capsule) 100 mg PO DAILY PRN PRN Reason: Constipation Last Admin: 01/07/21 12:29 Dose: 100 mg Documented by: Fluticasone Propionate (Fluticasone Propionate Nasal 16 Gm [place]) 1 spray NOSTRIL-B DAILY [facility] Last Admin: 01/20/21 08:46 Dose: 1 spray Documented by: Hydroxyzine HCl (Hydroxyzine Hcl 25 Mg Tablet) 25 mg PO Q6H PRN PRN Reason: Anxiety Last Admin: 01/19/21 05:37 Dose: 25 mg Documented by: Ibuprofen (Ibuprofen 600 Mg Tablet) 600 mg PO DAILY PRN PRN Reason: cramping Last Admin: 01/15/21 12:41 Dose: 600 mg Documented by: [place] Carbonate ([place] Carbonate Er 300 Mg Tablet.Er) 600 mg PO BID [facility] Last Admin: 01/20/21 08:45 Dose: 600 mg Documented by: Lorazepam (Lorazepam 1 Mg Tablet) 1 mg PO DAILY PRN PRN Reason: Anxiety Last Admin: 01/19/21 14:00 Dose: 1 mg Documented by: Lorazepam (Lorazepam 1 Mg Tablet) 1 mg PO BID [facility] Last Admin: 01/20/21 08:45 Dose: 1 mg Documented by: Magnesium Hydroxide (Milk Of Magnesia 30 Ml Oral.Susp) 30 ml PO DAILY PRN PRN Reason: Constipation Last Admin: 01/07/21 12:29 Dose: 30 ml Documented by: Nicotine Polacrilex (Nicotine Polacrilex 2 Mg Gum) 2 mg BUCCAL Q1H PRN PRN Reason: Nicotine Cravings Patient Own Med ( Desvenlafaxine Succinate [Pristiq] 100 Mg Tablet Extended Releas 1 each PO DAILY [facility] Last Admin: 01/20/21 08:46 Dose: 1 each Documented by: Prazosin HCl (Prazosin Hcl 5 Mg Capsule) 10 mg PO BEDTIME [facility]; Protocol Last Admin: 01/19/21 21:44 Dose: 10 mg Documented by: Quetiapine Fumarate (Quetiapine Fumarate 50 Mg Tablet) 50 mg PO DAILY PRN PRN Reason: mod-severe anxiety/ agitation Last Admin: 01/18/21 20:58 Dose: 50 mg Documented by: Quetiapine Fumarate (Quetiapine Fumarate 25 Mg Tablet) 25 mg PO DAILY PRN PRN Reason: mild-mod anxiety/ agitation Last Admin: 01/19/21 21:44 Dose: 25 mg Documented by: Quetiapine Fumarate (Quetiapine Fumarate 100 Mg Tablet) 100 mg PO DAILY PRN PRN Reason: severe anxiety Thiamine HCl (Thiamine Hcl 100 Mg Tablet) 100 mg PO DAILY [facility] Last Admin: 01/20/21 08:45 Dose: 100 mg Documented by: Trazodone HCl (Trazodone Hcl 50 Mg Tablet) 150 mg PO BEDTIME [facility] Last Admin: 01/19/21 21:44 Dose: 150 mg Documented by: Vitamin D (Cholecalciferol (Vitamin D3) 25 Mcg Tablet) 50 mcg PO DAILY [facility] Last Admin: 01/20/21 08:45 Dose: 50 mcg Documented by: Allergies Allergies Allergy/AdvReac Type Severity Reaction Status Date / Time oseltamivir [From TAMIFLU] Allergy Unknown FELT LIKE Unverified 12/20/19 19:22 BUGS WERE ALL OVER ME . Sulfa (Sulfonamide Allergy Unknown HIVES Unverified 12/20/19 19:22 Antibiotics) [SULFA (SULFONAMIDE ANTIBIOTICS)] sulfamethoxazole Allergy Unknown HIVES Unverified 12/20/19 19:22 [From BACTRIM] trimethoprim [From BACTRIM] Allergy Unknown HIVES Unverified 12/20/19 19:22 Assessment & Plan Assessment & Plan (1) Recurrent major depression-severe: Status: Acute Code(s): F33.2 - Major depressive disorder, recurrent severe without psychotic features (2) Borderline personality disorder: Status: Acute Code(s): F60.3 - Borderline personality disorder (3) PTSD (post-traumatic stress disorder): Status: Acute Code(s): F43.10 - Post-traumatic stress disorder, unspecified (4) Suicidal ideation: Status: Acute Code(s): R45.851 - Suicidal ideations Assessment and Plan: -continue home medications regimen. -scheduled trazodone at [facility] as of 12/25. -seroquel 100 BID PRN started 01/14 for severe anxiety. -retry weaning 1:1 in coming days as anniversary date has passed. -support during adjustment period. -care to be transferred to [facility] as of 01/19. 01/09/21: status change to 5 minutes checks on 01/09- no self harm behaviors/ monitor safety/ Pt in agreement to let staff know if not feeling safe 01/10/21: Coverage: No changes in plan of care. 01/11/21: Coverage: Per pt request changed Ativan tid prn to bid scheduled and qd prn as pt is using two per day scheduled. Pt reports sleep had improved with this use although dreams were still difficult. Discussed extra support for difficult days which she agrees will be helfpul. Much later in the day informed that pt had shared that she had tied socks together in an attempt to strangle herself. She is now on one to one. Continue to monitor process concerns. 01/12/21: One to one in place. Today is the anniversary of the last heartbeat heard of the baby. Pt grieving, isolated. Support, respect offered. No medication changes. Available to pt as needed. Weekend coverage: Does not want med changes today, has been utilizing coping strategies on unit and advocating for support, continues on 1:1 due to urges to self harm, has asked staff to stand outside shower and this has helped. I spent minutes with the patient and/or on the patient floor today, greater than?50% of which was spent counseling/coordinating care. Reason for contiued inpatient stay Substantial Risk for: harm to self
[2021-01-20] MEDS: Amphetamine Mixed Salts 10 MG TABLET PO (14:51)
[2021-01-20 18:00] VITALS: BP 121/65; PULSE 91; TEMP 36.3; O2SAT 96
[2021-01-20 23:00] VITALS: BP 121/65; PULSE 91
[2021-01-20] MEDS: Prazosin HCL 5 MG CAPSULE 10 MG PO (23:00)
[2021-01-20] MEDS: traZODone HCL 50 MG TABLET 150 MG PO (23:01)
[2021-01-20] MEDS: QUEtiapine Fumarate 25 MG TABLET PO (23:02)
[2021-01-21] MEDS: hydrOXYzine HCL 25 MG TABLET PO ×2 (05:01→20:51)
[2021-01-21 09:00] VITALS: BP 111/65; PULSE 96; RESP 20; TEMP 36.8; O2SAT 98
[2021-01-21] MEDS: Thiamine HCL 100 MG TABLET PO (09:51)
[2021-01-21] MEDS: LORazepam 1 MG TABLET PO ×2 (09:51→20:51)
[2021-01-21] MEDS: Cholecalciferol (Vitamin D3) 25 MCG TABLET 50 MCG PO (09:51)
[2021-01-21] MEDS: Amphetamine Mixed Salts 20 MG TABLET PO (09:51)
[2021-01-21] MEDS: Lithium Carbonate ER 300 MG TABLET.ER 600 MG PO ×2 (09:51→20:51)
[2021-01-21] MEDS: Fluticasone Propionate Nasal 16 GM SPRAY 1 SPRAY NOSTRIL-B (09:52)
--- NOTE | 2021-01-21 09:58 | HO.PSYCHPN ---
Subjective Subjective Date of Service: 01/21/21 Reason For Visit: SI Interim History: This tag writer met with pt, FRANCISCA Willis and Jill. Pt reports feeling anxious but more hopeful. Pt reports sleeping better but did wake up last night and received support from nursing. Pt with intermittent SI but denies plan or intent. We discussed chronic nature of suicidal thoughts, coping skills, need for structure. Pt continues to be visible in the unit, they attend assigned groups. Pt needing reassurance and reminded of strengths and skills they have build over years of treatment for BPD. Medication Compliance: Yes Review of Systems Review of Systems Yes Unobtainable due to mental status Constitutional: Reports body ache(s), Denies chills, Denies fatigue, Denies fever(s), Denies headache(s), Denies malaise and Denies weakness Eyes: Denies diplopia Denies vertigo, Denies dizziness, Denies otalgia, Denies headache(s), Denies mouth pain, Denies post nasal drip, Denies sinus pain, Denies sinus pressure, Denies sore throat and Denies throat swelling Cardiovascular: Denies chest pain, Denies syncope, Denies leg edema, Denies lightheadedness, Denies Loss of Consciousness, Denies palpitations and Denies dyspnea Respiratory: Denies chest congestion, Denies cough and Denies dyspnea Gastrointestinal: Denies abdominal pain, Denies hematochezia, Denies constipation, Denies diarrhea and Denies vomiting Musculoskeletal: Reports myalgias Skin/Breast: Denies erythema and Denies rash Denies confusion, Denies vertigo, Denies dizziness, Denies syncope, Denies headache(s) and Denies weakness Psychiatric: Reports anxiety, Denies confusion, Reports depression, Reports difficulty concentrating, Reports hopelessness, Reports anhedonia, Reports hallucinations and Reports suicidal ideation Endocrine: Denies fatigue and Denies palpitations Allergic/Immunologic: Denies throat swelling Mental Status Exam Mental Status Exam Narrative: Appearance: casually groomed, fair hygiene in NAD Behavior:guarded at times but cooperative psychomotor: no agitation or retardation noted Speech:clear, normal rate/rhythm/volume, spontaneous Thought process:linear Thought content:no signs of psychosis, increasingly more future oriented Mood: anxious Affect: brighter at times SI:intermittent passive (which is chronic for pt), denies intent or plan but hesitant about d/c 1:1 today HI:none VH/AH:none Delusions:none Insight/judgment:fair x 2. Memory/cog: alert, oriented x 3. grossly intact to conversational testing. Patient Appearance: Appropriate Patient Orientation: Person, Place, Time and Situation Level of Consciousness: Awake and Alert Patient Behavior: Appropriate, Avoidant, Isolative and Poor Eye Contact Mood Description: Withdrawn, Appropriate (grieving), Constricted, Depressed, Anxious and Flat Affect Description: Flat Patient Cognition Impaired: No Ability to Follow Directions: Good Speech Pattern: Impoverished, Spontaneous Speech and Soft-Spoken Memory Description: Intact Diagnostics Vital Signs (24Hr): Vital Signs - 24 hr 01/22/21 22:40 01/22/21 23:04 01/23/21 08:12 Temperature 97.3 F 97.5 F Pulse Rate 90 103 H Respiratory Rate 17 Blood Pressure 137/78 135/62 Pulse Oximetry 97 95 Body Mass Index 40.3 Labs Results: 12/16/20 13:36 12/16/20 13:36 Medications Medications Current Medications Acetaminophen (Acetaminophen 325 Mg Tablet) 650 mg PO QID PRN PRN Reason: Pain Last Admin: 01/12/21 14:38 Dose: 650 mg Documented by: Al Hydroxide/Mg Hydroxide (Magnesium Hydrox/Alum Hydrox 30 Ml Oral.Susp) 30 ml PO Q6H PRN PRN Reason: Heartburn/Nausea Amphetamine/Dextroamphetamine (Amphetamine Mixed Salts 10 Mg Tablet) 10 mg PO DAILY@1400 [facility] Last Admin: 01/22/21 13:38 Dose: 10 mg Documented by: Amphetamine/Dextroamphetamine (Amphetamine Mixed Salts 20 Mg Tablet) 20 mg PO DAILY [facility] Last Admin: 01/23/21 08:19 Dose: 20 mg Documented by: Docusate Sodium (Docusate Sodium 100 Mg Capsule) 100 mg PO DAILY PRN PRN Reason: Constipation Last Admin: 01/07/21 12:29 Dose: 100 mg Documented by: Fluticasone Propionate (Fluticasone Propionate Nasal 16 Gm [place]) 1 spray NOSTRIL-B BID [facility] Last Admin: 01/23/21 08:19 Dose: 1 spray Documented by: Hydroxyzine HCl (Hydroxyzine Hcl 25 Mg Tablet) 25 mg PO Q6H PRN PRN Reason: Anxiety Last Admin: 01/22/21 22:40 Dose: 25 mg Documented by: Ibuprofen (Ibuprofen 600 Mg Tablet) 600 mg PO DAILY PRN PRN Reason: cramping Last Admin: 01/15/21 12:41 Dose: 600 mg Documented by: [place] Carbonate ([place] Carbonate Er 300 Mg Tablet.Er) 600 mg PO BID [facility] Last Admin: 01/23/21 08:19 Dose: 600 mg Documented by: Lorazepam (Lorazepam 1 Mg Tablet) 1 mg PO DAILY PRN PRN Reason: Anxiety Last Admin: 01/22/21 19:57 Dose: 1 mg Documented by: Lorazepam (Lorazepam 1 Mg Tablet) 1 mg PO BID [facility] Last Admin: 01/23/21 08:19 Dose: 1 mg Documented by: Magnesium Hydroxide (Milk Of Magnesia 30 Ml Oral.Susp) 30 ml PO DAILY PRN PRN Reason: Constipation Last Admin: 01/07/21 12:29 Dose: 30 ml Documented by: Nicotine Polacrilex (Nicotine Polacrilex 2 Mg Gum) 2 mg BUCCAL Q1H PRN PRN Reason: Nicotine Cravings Patient Own Med ( Desvenlafaxine Succinate [Pristiq] 100 Mg Tablet Extended Releas 1 each PO DAILY [facility] Last Admin: 01/23/21 08:19 Dose: 1 each Documented by: Prazosin HCl (Prazosin Hcl 5 Mg Capsule) 10 mg PO BEDTIME [facility]; Protocol Last Admin: 01/22/21 22:40 Dose: 10 mg Documented by: Quetiapine Fumarate (Quetiapine Fumarate 50 Mg Tablet) 50 mg PO DAILY PRN PRN Reason: mod-severe anxiety/ agitation Last Admin: 01/18/21 20:58 Dose: 50 mg Documented by: Quetiapine Fumarate (Quetiapine Fumarate 100 Mg Tablet) 100 mg PO DAILY PRN PRN Reason: severe anxiety Quetiapine Fumarate (Quetiapine Fumarate 25 Mg Tablet) 25 mg PO Q2H PRN PRN Reason: mild-mod anxiety/ agitation Thiamine HCl (Thiamine Hcl 100 Mg Tablet) 100 mg PO DAILY [facility] Last Admin: 01/23/21 08:19 Dose: 100 mg Documented by: Trazodone HCl (Trazodone Hcl 100 Mg Tablet) 200 mg PO BEDTIME [facility] Last Admin: 01/22/21 22:40 Dose: 200 mg Documented by: Vitamin D (Cholecalciferol (Vitamin D3) 25 Mcg Tablet) 50 mcg PO DAILY [facility] Last Admin: 01/23/21 08:19 Dose: 50 mcg Documented by: Allergies Allergies Allergy/AdvReac Type Severity Reaction Status Date / Time oseltamivir [From TAMIFLU] Allergy Unknown FELT LIKE Unverified 12/20/19 19:22 BUGS WERE ALL OVER ME . Sulfa (Sulfonamide Allergy Unknown HIVES Unverified 12/20/19 19:22 Antibiotics) [SULFA (SULFONAMIDE ANTIBIOTICS)] sulfamethoxazole Allergy Unknown HIVES Unverified 12/20/19 19:22 [From BACTRIM] trimethoprim [From BACTRIM] Allergy Unknown HIVES Unverified 12/20/19 19:22 Assessment & Plan Assessment & Plan (1) Recurrent major depression-severe: Status: Acute Code(s): F33.2 - Major depressive disorder, recurrent severe without psychotic features (2) Borderline personality disorder: Status: Acute Code(s): F60.3 - Borderline personality disorder (3) PTSD (post-traumatic stress disorder): Status: Acute Code(s): F43.10 - Post-traumatic stress disorder, unspecified (4) Suicidal ideation: Status: Acute Code(s): R45.851 - Suicidal ideations Assessment and Plan: Sandi is 35 year-old (pronoun they/them) with hx of BPD, MDD, self presented [place] [facility] [place] in setting of recent loss of still born baby of friend who pt had planned to co-parent with friend. Pt expressed feeling of isolation as they grieve of stillborn in setting of not connecting with long time friend of 7 year who lost unborn baby. PLAN: continue to encourage utilizing skills, managing intense difficult emotions (pt does have multiple strengths, insightful), avoid enabling, remind of chronicity of suicidal ideation which has intensified with recent loss. HOSPITAL Course: 01/09/21: status change to 5 minutes checks on 01/09- no self harm behaviors/ monitor safety/ Pt in agreement to let staff know if not feeling safe 01/10/21: Coverage: No changes in plan of care. 01/11/21: Coverage: Per pt request changed Ativan tid prn to bid scheduled and qd prn as pt is using two per day scheduled. Pt reports sleep had improved with this use although dreams were still difficult. Discussed extra support for difficult days which she agrees will be helfpul. Much later in the day informed that pt had shared that she had tied socks together in an attempt to strangle herself. She is now on one to one. Continue to monitor process concerns. 01/12/21: One to one in place. Today is the anniversary of the last heartbeat heard of the baby. Pt grieving, isolated. Support, respect offered. No medication changes. Available to pt as needed. I spent minutes with the patient and/or on the patient floor today, greater than?50% of which was spent counseling/coordinating care. Reason for contiued inpatient stay Substantial Risk for: harm to self
[2021-01-21] MEDS: Amphetamine Mixed Salts 10 MG TABLET PO (15:02)
[2021-01-21 20:51] VITALS: BP 130/73; PULSE 85
[2021-01-21] MEDS: traZODone HCL 100 MG TABLET 200 MG PO (20:51)
[2021-01-21] MEDS: Prazosin HCL 5 MG CAPSULE 10 MG PO (20:51)
[2021-01-21 20:54] VITALS: TEMP 36.4; O2SAT 98
[2021-01-22 06:00] VITALS: BP 116/64; PULSE 89; RESP 16; TEMP 36.6; O2SAT 96
[2021-01-22] MEDS: Amphetamine Mixed Salts 20 MG TABLET PO (08:18)
[2021-01-22] MEDS: Lithium Carbonate ER 300 MG TABLET.ER 600 MG PO ×2 (08:18→22:40)
[2021-01-22] MEDS: LORazepam 1 MG TABLET PO ×3 (08:18→22:40)
[2021-01-22] MEDS: Thiamine HCL 100 MG TABLET PO (08:18)
[2021-01-22] MEDS: Cholecalciferol (Vitamin D3) 25 MCG TABLET 50 MCG PO (08:18)
[2021-01-22] MEDS: Fluticasone Propionate Nasal 16 GM SPRAY 1 SPRAY NOSTRIL-B (08:52)
--- NOTE | 2021-01-22 10:08 | P.PNPSI_ITS ---
Subjective Subjective Date of Service: 01/22/21 Reason For Visit: SI Subjective Notes: Conditional Voluntary Interim History: This publicity writer met with pt and FRANCISCA Willis. Pt more accepting of discharge not as abandonment but fact that pt is insightful and can utilize sk ills they have built over years of specialize treatment for BPD. Pt able to anticipate struggles of discharge including leaving staff with who they have worked closely during this admission. Pt future oriented, looking forward to transition to PHP, OP psychotherapy. Pt visible in the unit, attends assigned groups. Pt denies plan or intent to self harm- chronic intermittent suicidal thoughts, although pt denies them today. Pt encouraged to think transition in therapeutic mentalization terms - tr ansitional objects to step down from inpt to other treatment modality without regressive behaviors such as self injurious ones, encourage to utilize strengths. Medication Compliance: Yes Review of Systems Review of Systems Yes Unobtainable due to mental status Constitutional: Reports body ache(s), Denies chills, Denies fatigue, Denies fever(s), Denies headache(s), Denies malaise and Denies weakness Eyes: Denies diplopia Denies vertigo, Denies dizziness, Denies otalgia, Denies headache(s), Denies mouth pain, Denies post nasal drip, Denies sinus pain, Denies sinus pressure, Denies sore throat and Denies throat swelling Cardiovascular: Denies chest pain, Denies syncope, Denies leg edema, Denies lightheadedness, Denies Loss of Consciousness, Denies palpitations and Denies dyspnea Respiratory: Denies chest congestion, Denies cough and Denies dyspnea Gastrointestinal: Denies abdominal pain, Denies hematochezia, Denies constipation, Denies diarrhea and Denies vomiting Musculoskeletal: Reports myalgias Skin/Breast: Denies erythema and Denies rash Denies confusion, Denies vertigo, Denies dizziness, Denies syncope, Denies headache(s) and Denies weakness Psychiatric: Reports anxiety, Denies confusion, Reports depression, Reports difficulty concentrating, Reports hopelessness, Reports anhedonia, Reports hallucinations and Reports suicidal ideation Endocrine: Denies fatigue and Denies palpitations Allergic/Immunologic: Denies throat swelling Mental Status Exam Mental Status Exam Narrative: Appearance: casually groomed, fair hygiene in NAD Behavior:guarded at times but cooperative psychomotor: no agitation or retardation noted Speech:clear, normal rate/rhythm/volume, spontaneous Thought process:linear Thought content:no signs of psychosis, increasingly more future oriented Mood: anxious Affect: brighter at times SI:intermittent passive (which is chronic for pt), denies intent or plan but hesitant about d/c 1:1 today HI:none VH/AH:none Delusions:none Insight/judgment:fair x 2. Memory/cog: alert, oriented x 3. grossly intact to conversational testing. Diagnostics Vital Signs (24Hr): Vital Signs - 24 hr 01/22/21 22:40 01/22/21 23:04 01/23/21 08:12 Temperature 97.3 F 97.5 F Pulse Rate 90 103 H Respiratory Rate 17 Blood Pressure 137/78 135/62 Pulse Oximetry 97 95 Body Mass Index 40.3 Labs Results: 12/16/20 13:36 12/16/20 13:36 Medications Medications Current Medications Acetaminophen (Acetaminophen 325 Mg Tablet) 650 mg PO QID PRN PRN Reason: Pain Last Admin: 01/12/21 14:38 Dose: 650 mg Documented by: Al Hydroxide/Mg Hydroxide (Magnesium Hydrox/Alum Hydrox 30 Ml Oral.Susp) 30 ml PO Q6H PRN PRN Reason: Heartburn/Nausea Amphetamine/Dextroamphetamine (Amphetamine Mixed Salts 10 Mg Tablet) 10 mg PO DAILY@1400 [facility] Last Admin: 01/22/21 13:38 Dose: 10 mg Documented by: Amphetamine/Dextroamphetamine (Amphetamine Mixed Salts 20 Mg Tablet) 20 mg PO DAILY [facility] Last Admin: 01/23/21 08:19 Dose: 20 mg Documented by: Docusate Sodium (Docusate Sodium 100 Mg Capsule) 100 mg PO DAILY PRN PRN Reason: Constipation Last Admin: 01/07/21 12:29 Dose: 100 mg Documented by: Fluticasone Propionate (Fluticasone Propionate Nasal 16 Gm [place]) 1 spray NOSTRIL-B BID [facility] Last Admin: 01/23/21 08:19 Dose: 1 spray Documented by: Hydroxyzine HCl (Hydroxyzine Hcl 25 Mg Tablet) 25 mg PO Q6H PRN PRN Reason: Anxiety Last Admin: 01/22/21 22:40 Dose: 25 mg Documented by: Ibuprofen (Ibuprofen 600 Mg Tablet) 600 mg PO DAILY PRN PRN Reason: cramping Last Admin: 01/15/21 12:41 Dose: 600 mg Documented by: [place] Carbonate ([place] Carbonate Er 300 Mg Tablet.Er) 600 mg PO BID [facility] Last Admin: 01/23/21 08:19 Dose: 600 mg Documented by: Lorazepam (Lorazepam 1 Mg Tablet) 1 mg PO DAILY PRN PRN Reason: Anxiety Last Admin: 01/22/21 19:57 Dose: 1 mg Documented by: Lorazepam (Lorazepam 1 Mg Tablet) 1 mg PO BID [facility] Last Admin: 01/23/21 08:19 Dose: 1 mg Documented by: Magnesium Hydroxide (Milk Of Magnesia 30 Ml Oral.Susp) 30 ml PO DAILY PRN PRN Reason: Constipation Last Admin: 01/07/21 12:29 Dose: 30 ml Documented by: Nicotine Polacrilex (Nicotine Polacrilex 2 Mg Gum) 2 mg BUCCAL Q1H PRN PRN Reason: Nicotine Cravings Patient Own Med ( Desvenlafaxine Succinate [Pristiq] 100 Mg Tablet Extended Releas 1 each PO DAILY [facility] Last Admin: 01/23/21 08:19 Dose: 1 each Documented by: Prazosin HCl (Prazosin Hcl 5 Mg Capsule) 10 mg PO BEDTIME [facility]; Protocol Last Admin: 01/22/21 22:40 Dose: 10 mg Documented by: Quetiapine Fumarate (Quetiapine Fumarate 50 Mg Tablet) 50 mg PO DAILY PRN PRN Reason: mod-severe anxiety/ agitation Last Admin: 01/18/21 20:58 Dose: 50 mg Documented by: Quetiapine Fumarate (Quetiapine Fumarate 100 Mg Tablet) 100 mg PO DAILY PRN PRN Reason: severe anxiety Quetiapine Fumarate (Quetiapine Fumarate 25 Mg Tablet) 25 mg PO Q2H PRN PRN Reason: mild-mod anxiety/ agitation Thiamine HCl (Thiamine Hcl 100 Mg Tablet) 100 mg PO DAILY [facility] Last Admin: 01/23/21 08:19 Dose: 100 mg Documented by: Trazodone HCl (Trazodone Hcl 100 Mg Tablet) 200 mg PO BEDTIME [facility] Last Admin: 01/22/21 22:40 Dose: 200 mg Documented by: Vitamin D (Cholecalciferol (Vitamin D3) 25 Mcg Tablet) 50 mcg PO DAILY [facility] Last Admin: 01/23/21 08:19 Dose: 50 mcg Documented by: Allergies Allergies Allergy/AdvReac Type Severity Reaction Status Date / Time oseltamivir [From TAMIFLU] Allergy Unknown FELT LIKE Unverified 12/20/19 19:22 BUGS WERE ALL OVER ME . Sulfa (Sulfonamide Allergy Unknown HIVES Unverified 12/20/19 19:22 Antibiotics) [SULFA (SULFONAMIDE ANTIBIOTICS)] sulfamethoxazole Allergy Unknown HIVES Unverified 12/20/19 19:22 [From BACTRIM] trimethoprim [From BACTRIM] Allergy Unknown HIVES Unverified 12/20/19 19:22 Assessment & Plan Assessment & Plan (1) Recurrent major depression-severe: Status: Acute Code(s): F33.2 - Major depressive disorder, recurrent severe without psychotic features (2) Borderline personality disorder: Status: Acute Code(s): F60.3 - Borderline personality disorder (3) PTSD (post-traumatic stress disorder): Status: Acute Code(s): F43.10 - Post-traumatic stress disorder, unspecified (4) Suicidal ideation: Status: Acute Code(s): R45.851 - Suicidal ideations Assessment and Plan: Sandi is 35 year-old (pronoun they/them) with hx of BPD, MDD, self [place] [facility] [place] in setting of recent loss of still born baby of friend who pt had planned to co-parent with friend. Pt expressed feeling of isolation as they grieve of stillborn in setting of not connecting with long time friend of 7 year who lost unborn baby. PLAN: continue to encourage utilizing skills, managing intense difficult emotions (pt does have multiple strengths, insightful), avoid enabling, remind of chronicity of suicidal ideation which has intensified with recent loss. HOSPITAL Course: 01/09/21: status change to 5 minutes checks on 01/09- no self harm behaviors/ monitor safety/ Pt in agreement to let staff know if not feeling safe 01/10/21: Coverage: No changes in plan of care. 01/11/21: Coverage: Per pt request changed Ativan tid prn to bid scheduled and qd prn as pt is using two per day scheduled. Pt reports sleep had improved with this use although dreams were still difficult. Discussed extra support for difficult days which she agrees will be helfpul. Much later in the day informed that pt had shared that she had tied socks together in an attempt to strangle herself. She is now on one to one. Continue to monitor process concerns. 01/12/21: One to one in place. Today is the anniversary of the last heartbeat heard of the baby. Pt grieving, isolated. Support, respect offered. No medication changes. Available to pt as needed. I spent minutes with the patient and/or on the patient floor today, greater than?50% of which was spent counseling/coordinating care. Reason for contiued inpatient stay Substantial Risk for: harm to self
[2021-01-22] MEDS: Amphetamine Mixed Salts 10 MG TABLET PO (13:38)
[2021-01-22 22:40] VITALS: BP 137/78; PULSE 90
[2021-01-22] MEDS: Prazosin HCL 5 MG CAPSULE 10 MG PO (22:40)
[2021-01-22] MEDS: hydrOXYzine HCL 25 MG TABLET PO (22:40)
[2021-01-22] MEDS: traZODone HCL 100 MG TABLET 200 MG PO (22:40)
[2021-01-22 23:04] VITALS: TEMP 36.3; O2SAT 97
[2021-01-23 08:12] VITALS: BP 135/62; PULSE 103; RESP 17; TEMP 36.4; O2SAT 95
[2021-01-23] MEDS: Thiamine HCL 100 MG TABLET PO (08:19)
[2021-01-23] MEDS: Fluticasone Propionate Nasal 16 GM SPRAY 1 SPRAY NOSTRIL-B (08:19)
[2021-01-23] MEDS: LORazepam 1 MG TABLET PO ×2 (08:19→21:07)
[2021-01-23] MEDS: Amphetamine Mixed Salts 20 MG TABLET PO (08:19)
[2021-01-23] MEDS: Cholecalciferol (Vitamin D3) 25 MCG TABLET 50 MCG PO (08:19)
[2021-01-23] MEDS: Lithium Carbonate ER 300 MG TABLET.ER 600 MG PO ×2 (08:19→21:06)
[2021-01-23] MEDS: hydrOXYzine HCL 25 MG TABLET PO ×2 (10:35→20:10)
--- NOTE | 2021-01-23 10:53 | P.PNPSI_ITS ---
Subjective Subjective Date of Service: 01/23/21 Reason For Visit: SI Subjective Notes: Conditional Voluntary Interim History: Pt seen at scheduled daily time this morning. Pt standing in TV room. Slightly anxious but in no acute distress, which slowly disappear as c onversation went on. Pt reports having difficult morning, did not elaborate and asked that meeting is short. This literary writer asked if pt wants to meet later in day but pt declines stating that they were okay. Pt denies safety concerns. Pt taking medications as prescribed and no side effects. Per nursing, pt visible in unit, attends assigned groups. Pt encouraged to continue voicing directly to provider concerns instead of sending message through SW. Medication Compliance: Yes Side effects from medications: No Attending Groups: Yes Review of Systems Acute medical concerns: No Review of Systems Review of Systems Yes Unobtainable due to mental status Constitutional: Reports body ache(s), Denies chills, Denies fatigue, Denies fever(s), Denies headache(s), Denies malaise and Denies weakness Eyes: Denies diplopia Denies vertigo, Denies dizziness, Denies otalgia, Denies headache(s), Denies mouth pain, Denies post nasal drip, Denies sinus pain, Denies sinus pressure, Denies sore throat and Denies throat swelling Cardiovascular: Denies chest pain, Denies syncope, Denies leg edema, Denies lightheadedness, Denies Loss of Consciousness, Denies palpitations and Denies dyspnea Respiratory: Denies chest congestion, Denies cough and Denies dyspnea Gastrointestinal: Denies abdominal pain, Denies hematochezia, Denies constipation, Denies diarrhea and Denies vomiting Musculoskeletal: Reports myalgias Skin/Breast: Denies erythema and Denies rash Denies confusion, Denies vertigo, Denies dizziness, Denies syncope, Denies headache(s) and Denies weakness Psychiatric: Reports anxiety, Denies confusion, Reports depression, Reports difficulty concentrating, Reports hopelessness, Reports anhedonia, Reports hallucinations and Reports suicidal ideation Endocrine: Denies fatigue and Denies palpitations Allergic/Immunologic: Denies throat swelling Mental Status Exam Mental Status Exam Narrative: Appearance: casually groomed, fair hygiene in NAD Behavior:guarded at times but cooperative psychomotor: no agitation or retardation noted Speech:clear, normal rate/rhythm/volume, spontaneous Thought process:linear Thought content:no signs of psychosis, increasingly more future oriented Mood: okay Affect: brighter at times SI:intermittent passive (which is chronic for pt), denies intent or plan. HI:none VH/AH:none Delusions:none Insight/judgment:fair x 2. Memory/cog: alert, oriented x 3. grossly intact to conversational testing. Diagnostics Vital Signs (24Hr): Vital Signs - 24 hr 01/22/21 22:40 01/22/21 23:04 01/23/21 08:12 Temperature 97.3 F 97.5 F Pulse Rate 90 103 H Respiratory Rate 17 Blood Pressure 137/78 135/62 Pulse Oximetry 97 95 Body Mass Index 40.3 Labs Results: 12/16/20 13:36 12/16/20 13:36 Medications Medications Current Medications Acetaminophen (Acetaminophen 325 Mg Tablet) 650 mg PO QID PRN PRN Reason: Pain Last Admin: 01/12/21 14:38 Dose: 650 mg Documented by: Al Hydroxide/Mg Hydroxide (Magnesium Hydrox/Alum Hydrox 30 Ml Oral.Susp) 30 ml PO Q6H PRN PRN Reason: Heartburn/Nausea Amphetamine/Dextroamphetamine (Amphetamine Mixed Salts 10 Mg Tablet) 10 mg PO DAILY@1400 [facility] Last Admin: 01/22/21 13:38 Dose: 10 mg Documented by: Amphetamine/Dextroamphetamine (Amphetamine Mixed Salts 20 Mg Tablet) 20 mg PO DAILY [facility] Last Admin: 01/23/21 08:19 Dose: 20 mg Documented by: Docusate Sodium (Docusate Sodium 100 Mg Capsule) 100 mg PO DAILY PRN PRN Reason: Constipation Last Admin: 01/07/21 12:29 Dose: 100 mg Documented by: Fluticasone Propionate (Fluticasone Propionate Nasal 16 Gm [place]) 1 spray NOSTRIL-B BID [facility] Last Admin: 01/23/21 08:19 Dose: 1 spray Documented by: Hydroxyzine HCl (Hydroxyzine Hcl 25 Mg Tablet) 25 mg PO Q6H PRN PRN Reason: Anxiety Last Admin: 01/23/21 10:35 Dose: 25 mg Documented by: Ibuprofen (Ibuprofen 600 Mg Tablet) 600 mg PO DAILY PRN PRN Reason: cramping Last Admin: 01/15/21 12:41 Dose: 600 mg Documented by: [place] Carbonate ([place] Carbonate Er 300 Mg Tablet.Er) 600 mg PO BID [facility] Last Admin: 01/23/21 08:19 Dose: 600 mg Documented by: Lorazepam (Lorazepam 1 Mg Tablet) 1 mg PO DAILY PRN PRN Reason: Anxiety Last Admin: 01/22/21 19:57 Dose: 1 mg Documented by: Lorazepam (Lorazepam 1 Mg Tablet) 1 mg PO BID [facility] Last Admin: 01/23/21 08:19 Dose: 1 mg Documented by: Magnesium Hydroxide (Milk Of Magnesia 30 Ml Oral.Susp) 30 ml PO DAILY PRN PRN Reason: Constipation Last Admin: 01/07/21 12:29 Dose: 30 ml Documented by: Nicotine Polacrilex (Nicotine Polacrilex 2 Mg Gum) 2 mg BUCCAL Q1H PRN PRN Reason: Nicotine Cravings Patient Own Med ( Desvenlafaxine Succinate [Pristiq] 100 Mg Tablet Extended Releas 1 each PO DAILY [facility] Last Admin: 01/23/21 08:19 Dose: 1 each Documented by: Prazosin HCl (Prazosin Hcl 5 Mg Capsule) 10 mg PO BEDTIME [facility]; Protocol Last Admin: 01/22/21 22:40 Dose: 10 mg Documented by: Quetiapine Fumarate (Quetiapine Fumarate 50 Mg Tablet) 50 mg PO DAILY PRN PRN Reason: mod-severe anxiety/ agitation Last Admin: 01/18/21 20:58 Dose: 50 mg Documented by: Quetiapine Fumarate (Quetiapine Fumarate 100 Mg Tablet) 100 mg PO DAILY PRN PRN Reason: severe anxiety Quetiapine Fumarate (Quetiapine Fumarate 25 Mg Tablet) 25 mg PO Q2H PRN PRN Reason: mild-mod anxiety/ agitation Thiamine HCl (Thiamine Hcl 100 Mg Tablet) 100 mg PO DAILY [facility] Last Admin: 01/23/21 08:19 Dose: 100 mg Documented by: Trazodone HCl (Trazodone Hcl 100 Mg Tablet) 200 mg PO BEDTIME [facility] Last Admin: 01/22/21 22:40 Dose: 200 mg Documented by: Vitamin D (Cholecalciferol (Vitamin D3) 25 Mcg Tablet) 50 mcg PO DAILY [facility] Last Admin: 01/23/21 08:19 Dose: 50 mcg Documented by: Allergies Allergies Allergy/AdvReac Type Severity Reaction Status Date / Time oseltamivir [From TAMIFLU] Allergy Unknown FELT LIKE Unverified 12/20/19 19:22 BUGS WERE ALL OVER ME . Sulfa (Sulfonamide Allergy Unknown HIVES Unverified 12/20/19 19:22 Antibiotics) [SULFA (SULFONAMIDE ANTIBIOTICS)] sulfamethoxazole Allergy Unknown HIVES Unverified 12/20/19 19:22 [From BACTRIM] trimethoprim [From BACTRIM] Allergy Unknown HIVES Unverified 12/20/19 19:22 Assessment & Plan Assessment & Plan (1) Recurrent major depression-severe: Status: Acute Code(s): F33.2 - Major depressive disorder, recurrent severe without psychotic features (2) Borderline personality disorder: Status: Acute Code(s): F60.3 - Borderline personality disorder (3) PTSD (post-traumatic stress disorder): Status: Acute Code(s): F43.10 - Post-traumatic stress disorder, unspecified (4) Suicidal ideation: Status: Acute Code(s): R45.851 - Suicidal ideations Assessment and Plan: Sandi is 35 year-old (pronoun they/them) with hx of BPD, MDD, self presented to [facility] [place] [facility] ED with SI in setting of recent loss of still born baby of friend who pt had planned to co-parent with friend. Pt expressed feeling of isolation as they grieve of stillborn in setting of not connecting with long time friend of 7 year who lost unborn baby. PLAN: continue to encourage utilizing skills, managing intense difficult emotions (pt does have multiple strengths, insightful), avoid enabling, remind of chronicity of suicidal ideation which has intensified with recent loss. HOSPITAL Course: 01/09/21: status change to 5 minutes checks on 01/09- no self harm behaviors/ m onitor safety/ Pt in agreement to let staff know if not feeling safe 01/10/21: Coverage: No changes in plan of care. 01/11/21: Coverage: Per pt request changed Ativan tid prn to bid scheduled and qd prn as pt is using two per day scheduled. Pt reports sleep had improved with this use although dreams were still difficult. Discussed extra support for difficult days which she agrees will be helfpul. Much later in the day informed that pt had shared that she had tied socks together in an attempt to strangle herself. She is now on one to one. Continue to monitor process concerns. 01/12/21: One to one in place. Today is the anniversary of the last heartbeat heard of the baby. Pt grieving, isolated. Support, respect offered. No medication changes. Available to pt as needed. I spent minutes with the patient and/or on the patient floor today, greater than?50% of which was spent counseling/coordinating care. Reason for contiued inpatient stay Substantial Risk for: rapid decompensation
[2021-01-23] MEDS: Amphetamine Mixed Salts 10 MG TABLET PO (14:48)
[2021-01-23 18:00] VITALS: BP 138/60; PULSE 91; RESP 18; TEMP 36.8; O2SAT 96
[2021-01-23] MEDS: Acetaminophen 325 MG TABLET 650 MG PO (20:10)
[2021-01-23 21:06] VITALS: BP 138/60; PULSE 91
[2021-01-23] MEDS: Prazosin HCL 5 MG CAPSULE 10 MG PO (21:06)
[2021-01-23] MEDS: traZODone HCL 100 MG TABLET 200 MG PO (21:07)
[2021-01-24] MEDS: Fluticasone Propionate Nasal 16 GM SPRAY 1 SPRAY NOSTRIL-B (08:43)
[2021-01-24] MEDS: Acetaminophen 325 MG TABLET 650 MG PO (08:45)
[2021-01-24 08:50] VITALS: BP 110/75; PULSE 94; RESP 20; TEMP 36.3; O2SAT 98
[2021-01-24] MEDS: Cholecalciferol (Vitamin D3) 25 MCG TABLET 50 MCG PO (10:27)
[2021-01-24] MEDS: Amphetamine Mixed Salts 20 MG TABLET PO (10:27)
[2021-01-24] MEDS: Lithium Carbonate ER 300 MG TABLET.ER 600 MG PO ×2 (10:28→21:38)
[2021-01-24] MEDS: LORazepam 1 MG TABLET PO ×2 (10:30→21:38)
[2021-01-24] MEDS: Thiamine HCL 100 MG TABLET PO (10:31)
[2021-01-24] MEDS: Amphetamine Mixed Salts 10 MG TABLET PO (14:45)
--- NOTE | 2021-01-24 17:03 | HO.PSYCHPN ---
Subjective Subjective Date of Service: 01/24/21 Reason For Visit: SI Interim History: Pt seen at scheduled daily time this morning. Pt sitting in day room. She reports she has been having some difficulty sleeping since stopping the Seroquel. She is asking whether she can increase Trazodone. Denies any mood change with mood after Seroquel was decreased. Slightly anxious but in no acute distress, which slowly disappear as conversation went on. Pt denies safety concerns. Pt taking medications as prescribed and no side effects. Per nursing, pt visible in unit, attends assigned groups. Pt encouraged to continue voicing directly to provider concerns instead of sending message through SW. Review of Systems Review of Systems Yes Unobtainable due to mental status Constitutional: Reports body ache(s), Denies chills, Denies fatigue, Denies fever(s), Denies headache(s), Denies malaise and Denies weakness Eyes: Denies diplopia Denies vertigo, Denies dizziness, Denies otalgia, Denies headache(s), Denies mouth pain, Denies post nasal drip, Denies sinus pain, Denies sinus pressure, Denies sore throat and Denies throat swelling Cardiovascular: Denies chest pain, Denies syncope, Denies leg edema, Denies lightheadedness, Denies Loss of Consciousness, Denies palpitations and Denies dyspnea Respiratory: Denies chest congestion, Denies cough and Denies dyspnea Gastrointestinal: Denies abdominal pain, Denies hematochezia, Denies constipation, Denies diarrhea and Denies vomiting Musculoskeletal: Reports myalgias Skin/Breast: Denies erythema and Denies rash Denies confusion, Denies vertigo, Denies dizziness, Denies syncope, Denies headache(s) and Denies weakness Psychiatric: Reports anxiety, Denies confusion, Reports depression, Reports difficulty concentrating, Reports hopelessness, Reports anhedonia, Reports hallucinations and Reports suicidal ideation Endocrine: Denies fatigue and Denies palpitations Allergic/Immunologic: Denies throat swelling Mental Status Exam Mental Status Exam Narrative: Appearance: casually groomed, fair hygiene in NAD Behavior:guarded at times but cooperative psychomotor: no agitation or retardation noted Speech:clear, normal rate/rhythm/volume, spontaneous Thought process:linear Thought content:no signs of psychosis, increasingly more future oriented Mood: okay Affect: brighter at times SI:intermittent passive (which is chronic for pt), denies intent or plan. HI:none VH/AH:none Delusions:none Insight/judgment:fair x 2. Memory/cog: alert, oriented x 3. grossly intact to conversational testing. Patient Appearance: Appropriate Patient Orientation: Person, Place, Time and Situation Level of Consciousness: Awake and Alert Patient Behavior: Appropriate, Avoidant, Isolative and Poor Eye Contact Mood Description: Withdrawn, Appropriate (grieving), Constricted, Depressed, Anxious and Flat Affect Description: Flat Patient Cognition Impaired: No Ability to Follow Directions: Good Speech Pattern: Impoverished, Spontaneous Speech and Soft-Spoken Memory Description: Intact Diagnostics Vital Signs (24Hr): Vital Signs - 24 hr 01/23/21 18:00 01/23/21 21:06 01/24/21 08:50 Temperature 98.2 F 97.4 F Pulse Rate 91 91 94 Respiratory Rate 18 20 Blood Pressure 138/60 138/60 110/75 Pulse Oximetry 96 98 Body Mass Index 40.3 Labs Results: 12/16/20 13:36 12/16/20 13:36 Medications Medications Current Medications Acetaminophen (Acetaminophen 325 Mg Tablet) 650 mg PO QID PRN PRN Reason: Pain Last Admin: 01/24/21 08:45 Dose: 650 mg Documented by: Al Hydroxide/Mg Hydroxide (Magnesium Hydrox/Alum Hydrox 30 Ml Oral.Susp) 30 ml PO Q6H PRN PRN Reason: Heartburn/Nausea Amphetamine/Dextroamphetamine (Amphetamine Mixed Salts 10 Mg Tablet) 10 mg PO DAILY@1400 [facility] Last Admin: 01/24/21 14:45 Dose: 10 mg Documented by: Amphetamine/Dextroamphetamine (Amphetamine Mixed Salts 20 Mg Tablet) 20 mg PO DAILY [facility] Last Admin: 01/24/21 10:27 Dose: 20 mg Documented by: Docusate Sodium (Docusate Sodium 100 Mg Capsule) 100 mg PO DAILY PRN PRN Reason: Constipation Last Admin: 01/07/21 12:29 Dose: 100 mg Documented by: Fluticasone Propionate (Fluticasone Propionate Nasal 16 Gm [place]) 1 spray NOSTRIL-B BID [facility] Last Admin: 01/24/21 08:43 Dose: 1 spray Documented by: Hydroxyzine HCl (Hydroxyzine Hcl 25 Mg Tablet) 25 mg PO Q6H PRN PRN Reason: Anxiety Last Admin: 01/23/21 20:10 Dose: 25 mg Documented by: Ibuprofen (Ibuprofen 600 Mg Tablet) 600 mg PO DAILY PRN PRN Reason: cramping Last Admin: 01/15/21 12:41 Dose: 600 mg Documented by: [place] Carbonate ([place] Carbonate Er 300 Mg Tablet.Er) 600 mg PO BID [facility] Last Admin: 01/24/21 10:28 Dose: 600 mg Documented by: Lorazepam (Lorazepam 1 Mg Tablet) 1 mg PO DAILY PRN PRN Reason: Anxiety Last Admin: 01/22/21 19:57 Dose: 1 mg Documented by: Lorazepam (Lorazepam 1 Mg Tablet) 1 mg PO BID [facility] Last Admin: 01/24/21 10:30 Dose: 1 mg Documented by: Magnesium Hydroxide (Milk Of Magnesia 30 Ml Oral.Susp) 30 ml PO DAILY PRN PRN Reason: Constipation Last Admin: 01/07/21 12:29 Dose: 30 ml Documented by: Nicotine Polacrilex (Nicotine Polacrilex 2 Mg Gum) 2 mg BUCCAL Q1H PRN PRN Reason: Nicotine Cravings Patient Own Med ( Desvenlafaxine Succinate [Pristiq] 100 Mg Tablet Extended Releas 1 each PO DAILY [facility] Last Admin: 01/24/21 08:43 Dose: 1 each Documented by: Prazosin HCl (Prazosin Hcl 5 Mg Capsule) 10 mg PO BEDTIME [facility]; Protocol Last Admin: 01/23/21 21:06 Dose: 10 mg Documented by: Quetiapine Fumarate (Quetiapine Fumarate 50 Mg Tablet) 50 mg PO DAILY PRN PRN Reason: mod-severe anxiety/ agitation Last Admin: 01/18/21 20:58 Dose: 50 mg Documented by: Quetiapine Fumarate (Quetiapine Fumarate 100 Mg Tablet) 100 mg PO DAILY PRN PRN Reason: severe anxiety Quetiapine Fumarate (Quetiapine Fumarate 25 Mg Tablet) 25 mg PO Q2H PRN PRN Reason: mild-mod anxiety/ agitation Thiamine HCl (Thiamine Hcl 100 Mg Tablet) 100 mg PO DAILY [facility] Last Admin: 01/24/21 10:31 Dose: 100 mg Documented by: Trazodone HCl (Trazodone Hcl 50 Mg Tablet) 250 mg PO BEDTIME [facility] Vitamin D (Cholecalciferol (Vitamin D3) 25 Mcg Tablet) 50 mcg PO DAILY [facility] Last Admin: 01/24/21 10:27 Dose: 50 mcg Documented by: Allergies Allergies Allergy/AdvReac Type Severity Reaction Status Date / Time oseltamivir [From TAMIFLU] Allergy Unknown FELT LIKE Unverified 12/20/19 19:22 BUGS WERE ALL OVER ME . Sulfa (Sulfonamide Allergy Unknown HIVES Unverified 12/20/19 19:22 Antibiotics) [SULFA (SULFONAMIDE ANTIBIOTICS)] sulfamethoxazole Allergy Unknown HIVES Unverified 12/20/19 19:22 [From BACTRIM] trimethoprim [From BACTRIM] Allergy Unknown HIVES Unverified 12/20/19 19:22 Assessment & Plan Assessment & Plan (1) Recurrent major depression-severe: Status: Acute Code(s): F33.2 - Major depressive disorder, recurrent severe without psychotic features (2) Borderline personality disorder: Status: Acute Code(s): F60.3 - Borderline personality disorder (3) PTSD (post-traumatic stress disorder): Status: Acute Code(s): F43.10 - Post-traumatic stress disorder, unspecified (4) Suicidal ideation: Status: Acute Code(s): R45.851 - Suicidal ideations Assessment and Plan: Sandi is 35 year-old (pronoun they/them) with hx of BPD, MDD, self presented to [facility] [place] with SI in setting of recent loss of still born baby of friend who pt had planned to co-parent with friend. Pt expressed feeling of isolation as they grieve of stillborn in setting of not connecting with long time friend of 7 year who lost unborn baby. PLAN: continue to encourage utilizing skills, managing intense difficult emotions (pt does have multiple strengths, insightful), avoid enabling, remind of chronicity of suicidal ideation which has intensified with recent loss. HOSPITAL Course: 01/09/21: status change to 5 minutes checks on 01/09- no self harm behaviors/ monitor safety/ Pt in agreement to let staff know if not feeling safe 01/10/21: Coverage: No changes in plan of care. 01/11/21: Coverage: Per pt request changed Ativan tid prn to bid scheduled and qd prn as pt is using two per day scheduled. Pt reports sleep had improved with this use although dreams were still difficult. Discussed extra support for difficult days which she agrees will be helfpul. Much later in the day informed that pt had shared that she had tied socks together in an attempt to strangle herself. She is now on one to one. Continue to monitor process concerns. 01/12/21: One to one in place. Today is the anniversary of the last heartbeat heard of the baby. Pt grieving, isolated. Support, respect offered. No medication changes. Available to pt as needed. 01/24/21: Increased Trazodone to 250 mg HS. I spent minutes with the patient and/or on the patient floor today, greater than?50% of which was spent counseling/coordinating care. Reason for contiued inpatient stay Substantial Risk for: harm to self
--- NOTE | 2021-01-24 17:25 | PC.NURSE ---
Pt showered without incident. About 15 minutes later pt complained that they felt lightheaded and shaky. Pt's hands were visibly shaking. This RN assessed the patient's vitals while they were sitting, BP was 127/71, HR 70. O2 was 95% which is lower than usual for the patient, but pt did not complain of difficulty breathing. RN assessed patient and they did not show signs of respiratory distress. Skin color was warm and dry, pt alert and oriented x4.
[2021-01-24 21:37] VITALS: BP 133/74; PULSE 84
[2021-01-24] MEDS: Prazosin HCL 5 MG CAPSULE 10 MG PO (21:37)
[2021-01-24] MEDS: traZODone HCL 50 MG TABLET 250 MG PO (21:37)
[2021-01-24 21:49] VITALS: BP 133/74; PULSE 84; RESP 18; TEMP 36.8; O2SAT 98
[2021-01-25 06:00] VITALS: BP 130/68; PULSE 90; RESP 16; TEMP 36.4; O2SAT 96
[2021-01-25] MEDS: Amphetamine Mixed Salts 20 MG TABLET PO (08:31)
[2021-01-25] MEDS: Cholecalciferol (Vitamin D3) 25 MCG TABLET 50 MCG PO (08:31)
[2021-01-25] MEDS: Lithium Carbonate ER 300 MG TABLET.ER 600 MG PO ×2 (08:31→22:19)
[2021-01-25] MEDS: hydrOXYzine HCL 25 MG TABLET PO ×2 (08:31→22:19)
[2021-01-25] MEDS: Thiamine HCL 100 MG TABLET PO (08:31)
[2021-01-25] MEDS: LORazepam 1 MG TABLET PO ×3 (08:31→22:19)
[2021-01-25] MEDS: Fluticasone Propionate Nasal 16 GM SPRAY 1 SPRAY NOSTRIL-B (08:32)
[2021-01-25] MEDS: Amphetamine Mixed Salts 10 MG TABLET PO (14:19)
--- NOTE | 2021-01-25 20:28 | P.PNPSI_ITS ---
Subjective Subjective Date of Service: 01/25/21 Reason For Visit: SI Interim History: Pt seen in the morning. She continues with insomnia in spite of increase Trazodone to 250 mg. She would like to try to stay off Seroquel although willing to restart if she can't sleep. Denies any change with mood after Seroquel was stopped. Slightly anxious but in no acute distress, which slowly disappear as conversation went on. Pt denies safety concerns. Pt taking medications as prescribed and no side effects. Per nursing, pt visible in unit, attends assigned groups. Review of Systems Review of Systems Yes Unobtainable due to mental status Constitutional: Reports body ache(s), Denies chills, Denies fatigue, Denies fever(s), Denies headache(s), Denies malaise and Denies weakness Eyes: Denies diplopia Denies vertigo, Denies dizziness, Denies otalgia, Denies headache(s), Denies dimitry th pain, Denies post nasal drip, Denies sinus pain, Denies sinus pressure, Denies sore throat and Denies throat swelling Cardiovascular: Denies chest pain, Denies syncope, Denies leg edema, Denies lightheadedness, Denies Loss of Consciousness, Denies palpitations and Denies d yspnea Respiratory: Denies chest congestion, Denies cough and Denies dyspnea Gastrointestinal: Denies abdominal pain, Denies hematochezia, Denies consti pation, Denies diarrhea and Denies vomiting Musculoskeletal: Reports myalgias Skin/Breast: Denies erythema and Denies rash Denies confusion, Denies vertigo, Denies dizziness, Denies syncope, Denies headache(s) and Denies weakness Psychiatric: Reports anxiety, Denies confusion, Reports depression, Reports difficulty concentrating, Reports hopelessness, Reports anhedonia, Reports hallucinations and Reports suicidal ideation Endocrine: Denies fatigue and Denies palpitations Allergic/Immunologic: Denies throat swelling Mental Status Exam Mental Status Exam Narrative: Appearance: casually groomed, fair hygiene in NAD Behavior:guarded at times but cooperative psychomotor: no agitation or retardation noted Speech:clear, normal rate/rhythm/volume, spontaneous Thought process:linear Thought content:no signs of psychosis, increasingly more future oriented Mood: okay Affect: brighter at times SI:intermittent passive (which is chronic for pt), denies intent or plan. HI:none VH/AH:none Delusions:none Insight/judgment:fair x 2. Memory/cog: alert, oriented x 3. grossly intact to conversational testing. Patient Appearance: Appropriate Patient Orientation: Person, Place, Time and Situation Level of Consciousness: Awake and Alert Patient Behavior: Appropriate, Avoidant, Isolative and Poor Eye Contact Mood Description: Withdrawn, Appropriate (grieving), Constricted, Depressed, Anxious and Flat Affect Description: Flat Patient Cognition Impaired: No Ability to Follow Directions: Good Speech Pattern: Impoverished, Spontaneous Speech and Soft-Spoken Memory Description: Intact Diagnostics Vital Signs (24Hr): Vital Signs - 24 hr 01/24/21 21:37 01/24/21 21:49 01/25/21 06:00 Temperature 98.3 F 97.6 F Pulse Rate 84 84 90 Respiratory Rate 18 16 Blood Pressure 133/74 133/74 130/68 Pulse Oximetry 98 96 Body Mass Index 40.3 Labs Results: 12/16/20 13:36 12/16/20 13:36 Medications Medications Current Medications Acetaminophen (Acetaminophen 325 Mg Tablet) 650 mg PO QID PRN PRN Reason: Pain Last Admin: 01/24/21 08:45 Dose: 650 mg Documented by: Al Hydroxide/Mg Hydroxide (Magnesium Hydrox/Alum Hydrox 30 Ml Oral.Susp) 30 ml PO Q6H PRN PRN Reason: Heartburn/Nausea Amphetamine/Dextroamphetamine (Amphetamine Mixed Salts 10 Mg Tablet) 10 mg PO DAILY@1400 [facility] Last Admin: 01/25/21 14:19 Dose: 10 mg Documented by: Amphetamine/Dextroamphetamine (Amphetamine Mixed Salts 20 Mg Tablet) 20 mg PO DAILY [facility] Last Admin: 01/25/21 08:31 Dose: 20 mg Documented by: Docusate Sodium (Docusate Sodium 100 Mg Capsule) 100 mg PO DAILY PRN PRN Reason: Constipation Last Admin: 01/07/21 12:29 Dose: 100 mg Documented by: Fluticasone Propionate (Fluticasone Propionate Nasal [address]) 1 spray NOSTRIL-B BID [facility] Last Admin: 01/25/21 08:32 Dose: 1 spray Documented by: Hydroxyzine HCl (Hydroxyzine Hcl 25 Mg Tablet) 25 mg PO Q6H PRN PRN Reason: Anxiety Last Admin: 01/25/21 08:31 Dose: 25 mg Documented by: Ibuprofen (Ibuprofen 600 Mg Tablet) 600 mg PO DAILY PRN PRN Reason: cramping Last Admin: 01/15/21 12:41 Dose: 600 mg Documented by: [place] Carbonate ([place] Carbonate Er 300 Mg Tablet.Er) 600 mg PO BID [facility] Last Admin: 01/25/21 08:31 Dose: 600 mg Documented by: Lorazepam (Lorazepam 1 Mg Tablet) 1 mg PO DAILY PRN PRN Reason: Anxiety Last Admin: 01/25/21 18:22 Dose: 1 mg Documented by: Lorazepam (Lorazepam 1 Mg Tablet) 1 mg PO BID [facility] Last Admin: 01/25/21 08:31 Dose: 1 mg Documented by: Magnesium Hydroxide (Milk Of Magnesia 30 Ml Oral.Susp) 30 ml PO DAILY PRN PRN Reason: Constipation Last Admin: 01/07/21 12:29 Dose: 30 ml Documented by: Nicotine Polacrilex (Nicotine Polacrilex 2 Mg Gum) 2 mg BUCCAL Q1H PRN PRN Reason: Nicotine Cravings Patient Own Med ( Desvenlafaxine Succinate [Pristiq] 100 Mg Tablet Extended Releas 1 each PO DAILY [facility] Last Admin: 01/25/21 08:31 Dose: 1 each Documented by: Prazosin HCl (Prazosin Hcl 5 Mg Capsule) 10 mg PO BEDTIME [facility]; Protocol Last Admin: 01/24/21 21:37 Dose: 10 mg Documented by: Quetiapine Fumarate (Quetiapine Fumarate 50 Mg Tablet) 50 mg PO DAILY PRN PRN Reason: mod-severe anxiety/ agitation Last Admin: 01/18/21 20:58 Dose: 50 mg Documented by: Quetiapine Fumarate (Quetiapine Fumarate 100 Mg Tablet) 100 mg PO DAILY PRN PRN Reason: severe anxiety Quetiapine Fumarate (Quetiapine Fumarate 25 Mg Tablet) 25 mg PO Q2H PRN PRN Reason: mild-mod anxiety/ agitation Thiamine HCl (Thiamine Hcl 100 Mg Tablet) 100 mg PO DAILY [facility] Last Admin: 01/25/21 08:31 Dose: 100 mg Documented by: Trazodone HCl (Trazodone Hcl 100 Mg Tablet) 300 mg PO BEDTIME [facility] Vitamin D (Cholecalciferol (Vitamin D3) 25 Mcg Tablet) 50 mcg PO DAILY [facility] Last Admin: 01/25/21 08:31 Dose: 50 mcg Documented by: Allergies Allergies Allergy/AdvReac Type Severity Reaction Status Date / Time oseltamivir [From TAMIFLU] Allergy Unknown FELT LIKE Unverified 12/20/19 19:22 BUGS WERE ALL OVER ME . Sulfa (Sulfonamide Allergy Unknown HIVES Unverified 12/20/19 19:22 Antibiotics) [SULFA (SULFONAMIDE ANTIBIOTICS)] sulfamethoxazole Allergy Unknown HIVES Unverified 12/20/19 19:22 [From BACTRIM] trimethoprim [From BACTRIM] Allergy Unknown HIVES Unverified 12/20/19 19:22 Assessment & Plan Assessment & Plan (1) Recurrent major depression-severe: Status: Acute Code(s): F33.2 - Major depressive disorder, recurrent severe without psychotic features (2) Borderline personality disorder: Status: Acute Code(s): F60.3 - Borderline personality disorder (3) PTSD (post-traumatic stress disorder): Status: Acute Code(s): F43.10 - Post-traumatic stress disorder, unspecified (4) Suicidal ideation: Status: Acute Code(s): R45.851 - Suicidal ideations Assessment and Plan: Sandi is 35 year-old (pronoun they/them) with hx of BPD, MDD, self presented [place] [facility] [place] in setting of recent loss of still born baby of friend who pt had planned to co-parent with friend. Pt expressed feeling of isolation as they gri gi of stillborn in setting of not connecting with long time friend of 7 year who lost unborn baby. PLAN: continue to encourage utilizing skills, managing intense difficult emotions (pt does have multiple strengths, insightful), avoid enabling, remind of chronicity of suicidal ideation which has intensified with recent loss. HOSPITAL Course: 01/09/21: status change to 5 minutes checks on 01/09- no self harm behaviors/ monitor safety/ Pt in agreement to let staff know if not feeling safe 01/10/21: Coverage: No changes in plan of care. 01/11/21: Coverage: Per pt request changed Ativan tid prn to bid scheduled and qd prn as pt is using two per day scheduled. Pt reports sleep had improved with this use although dreams were still difficult. Discussed extra support for difficult days which she agrees will be helfpul. Much later in the day informed that pt had shared that she had tied socks together in an attempt to strangle herself. She is now on one to one. Continue to monitor process concerns. 01/12/21: One to one in place. Today is the anniversary of the last heartbeat heard of the baby. Pt grieving, isolated. Support, respect offered. No medication changes. Available to pt as needed. 01/24/21: Increased Trazodone to 250 mg HS. 01/25/21: Increase Trazodone to 300 mg HS. I spent minutes with the patient and/or on the patient floor today, g reater than?50% of which was spent counseling/coordinating care. Reason for contiued inpatient stay Substantial Risk for: harm to self and inability to function
[2021-01-25] MEDS: traZODone HCL 100 MG TABLET 300 MG PO (22:18)
[2021-01-25 22:19] VITALS: BP 127/71; PULSE 88
[2021-01-25] MEDS: Prazosin HCL 5 MG CAPSULE 10 MG PO (22:19)
[2021-01-25 22:32] VITALS: TEMP 36.7; O2SAT 96
[2021-01-26] MEDS: Lithium Carbonate ER 300 MG TABLET.ER 600 MG PO ×2 (09:51→21:47)
[2021-01-26] MEDS: Thiamine HCL 100 MG TABLET PO (09:51)
[2021-01-26] MEDS: Amphetamine Mixed Salts 20 MG TABLET PO (09:51)
[2021-01-26] MEDS: Cholecalciferol (Vitamin D3) 25 MCG TABLET 50 MCG PO (09:51)
[2021-01-26] MEDS: Fluticasone Propionate Nasal 16 GM SPRAY 1 SPRAY NOSTRIL-B (09:51)
[2021-01-26] MEDS: LORazepam 1 MG TABLET PO ×3 (09:51→21:47)
[2021-01-26 10:12] VITALS: BP 124/93; PULSE 95; TEMP 36.4; O2SAT 96
--- NOTE | 2021-01-26 10:32 | HO.PSYCHPN ---
Subjective Subjective Date of Service: 01/26/21 Reason For Visit: SI Subjective Notes: Conditional Voluntary Interim History: This sign writer letterer or painter met with pt and clinician Jill. Pt reports difficulty getting ready, saying goodbye to staff who has been helpful during the hospital course. Pt reports saying goodbye to one of the nurses last night with whom they worked closely. Pt reports feeling tearful at times but appropriately so as closure of relationships is difficult for them. We discussed continue practicing mentalization excersises (symbolic transitional objects, positive experiences pt will take with them as they prepare to transition to PHP and OP with long term care social worker therapist). Pt denies SI/HI. Plan for discharge is Tuesday. Medication Compliance: Yes Side effects from medications: No Attending Groups: Yes Review of Systems Acute medical concerns: No Review of Systems Review of Systems Yes Unobtainable due to mental status Constitutional: Reports body ache(s), Denies chills, Denies fatigue, Denies fever(s), Denies headache(s), Denies malaise and Denies weakness Eyes: Denies diplopia Denies vertigo, Denies dizziness, Denies otalgia, Denies headache(s), Denies mouth pain, Denies post nasal drip, Denies sinus pain, Denies sinus pressure, Denies sore throat and Denies throat swelling Cardiovascular: Denies chest pain, Denies syncope, Denies leg edema, Denies lightheadedness, Denies Loss of Consciousness, Denies palpitations and Denies dyspnea Respiratory: Denies chest congestion, Denies cough and Denies dyspnea Gastrointestinal: Denies abdominal pain, Denies hematochezia, Denies constipation, Denies diarrhea and Denies vomiting Musculoskeletal: Reports myalgias Skin/Breast: Denies erythema and Denies rash Denies confusion, Denies vertigo, Denies dizziness, Denies syncope, Denies headache(s) and Denies weakness Psychiatric: Reports anxiety, Denies confusion, Reports depression, Reports difficulty concentrating, Reports hopelessness, Reports anhedonia, Reports hallucinations and Reports suicidal ideation Endocrine: Denies fatigue and Denies palpitations Allergic/Immunologic: Denies throat swelling Mental Status Exam Mental Status Exam Narrative: Appearance: casually groomed, fair hygiene in NAD Behavior:guarded at times but cooperative psychomotor: no agitation or retardation noted Speech:clear, normal rate/rhythm/volume, spontaneous Thought process:linear Thought content:no signs of psychosis, increasingly more future oriented Mood: okay Affect: brighter at times SI:currently denies (although some chronic SI has been there since pt was child), denies intent or plan. HI:none VH/AH:none Delusions:none Insight/judgment:fair x 2. Memory/cog: alert, oriented x 3. grossly intact to conversational testing. Diagnostics Vital Signs (24Hr): Vital Signs - 24 hr 01/25/21 22:19 01/25/21 22:32 01/26/21 10:12 Temperature 98.0 F 97.6 F Pulse Rate 88 95 Blood Pressure 127/71 124/93 H Pulse Oximetry 96 96 Body Mass Index 40.3 Labs Results: 12/16/20 13:36 12/16/20 13:36 Medications Medications Current Medications Acetaminophen (Acetaminophen 325 Mg Tablet) 650 mg PO QID PRN PRN Reason: Pain Last Admin: 01/24/21 08:45 Dose: 650 mg Documented by: Al Hydroxide/Mg Hydroxide (Magnesium Hydrox/Alum Hydrox 30 Ml Oral.Susp) 30 ml PO Q6H PRN PRN Reason: Heartburn/Nausea Amphetamine/Dextroamphetamine (Amphetamine Mixed Salts 10 Mg Tablet) 10 mg PO DAILY@1400 [facility] Last Admin: 01/25/21 14:19 Dose: 10 mg Documented by: Amphetamine/Dextroamphetamine (Amphetamine Mixed Salts 20 Mg Tablet) 20 mg PO DAILY [facility] Last Admin: 01/26/21 09:51 Dose: 20 mg Documented by: Docusate Sodium (Docusate Sodium 100 Mg Capsule) 100 mg PO DAILY PRN PRN Reason: Constipation Last Admin: 01/07/21 12:29 Dose: 100 mg Documented by: Fluticasone Propionate (Fluticasone Propionate Nasal [address] [place]) 1 spray NOSTRIL-B BID [facility] Last Admin: 01/26/21 09:51 Dose: 1 spray Documented by: Hydroxyzine HCl (Hydroxyzine Hcl 25 Mg Tablet) 25 mg PO Q6H PRN PRN Reason: Anxiety Last Admin: 01/25/21 22:19 Dose: 25 mg Documented by: Ibuprofen (Ibuprofen 600 Mg Tablet) 600 mg PO DAILY PRN PRN Reason: cramping Last Admin: 01/15/21 12:41 Dose: 600 mg Documented by: [place] Carbonate ([place] Carbonate Er 300 Mg Tablet.Er) 600 mg PO BID [facility] Last Admin: 01/26/21 09:51 Dose: 600 mg Documented by: Magnesium Hydroxide (Milk Of Magnesia 30 Ml Oral.Susp) 30 ml PO DAILY PRN PRN Reason: Constipation Last Admin: 01/07/21 12:29 Dose: 30 ml Documented by: Nicotine Polacrilex (Nicotine Polacrilex 2 Mg Gum) 2 mg BUCCAL Q1H PRN PRN Reason: Nicotine Cravings Patient Own Med ( Desvenlafaxine Succinate [Pristiq] 100 Mg Tablet Extended Releas 1 each PO DAILY [facility] Last Admin: 01/26/21 09:51 Dose: 1 each Documented by: Prazosin HCl (Prazosin Hcl 5 Mg Capsule) 10 mg PO BEDTIME [facility]; Protocol Last Admin: 01/25/21 22:19 Dose: 10 mg Documented by: Quetiapine Fumarate (Quetiapine Fumarate 50 Mg Tablet) 50 mg PO DAILY PRN PRN Reason: mod-severe anxiety/ agitation Last Admin: 01/18/21 20:58 Dose: 50 mg Documented by: Quetiapine Fumarate (Quetiapine Fumarate 100 Mg Tablet) 100 mg PO DAILY PRN PRN Reason: severe anxiety Quetiapine Fumarate (Quetiapine Fumarate 25 Mg Tablet) 25 mg PO Q2H PRN PRN Reason: mild-mod anxiety/ agitation Thiamine HCl (Thiamine Hcl 100 Mg Tablet) 100 mg PO DAILY [facility] Last Admin: 01/26/21 09:51 Dose: 100 mg Documented by: Trazodone HCl (Trazodone Hcl 100 Mg Tablet) 300 mg PO BEDTIME [facility] Last Admin: 01/25/21 22:18 Dose: 300 mg Documented by: Vitamin D (Cholecalciferol (Vitamin D3) 25 Mcg Tablet) 50 mcg PO DAILY [facility] Last Admin: 01/26/21 09:51 Dose: 50 mcg Documented by: Allergies Allergies Allergy/AdvReac Type Severity Reaction Status Date / Time oseltamivir [From TAMIFLU] Allergy Unknown FELT LIKE Unverified 12/20/19 19:22 BUGS WERE ALL OVER ME . Sulfa (Sulfonamide Allergy Unknown HIVES Unverified 12/20/19 19:22 Antibiotics) [SULFA (SULFONAMIDE ANTIBIOTICS)] sulfamethoxazole Allergy Unknown HIVES Unverified 12/20/19 19:22 [From BACTRIM] trimethoprim [From BACTRIM] Allergy Unknown HIVES Unverified 12/20/19 19:22 Assessment & Plan Assessment & Plan (1) Recurrent major depression-severe: Status: Acute Code(s): F33.2 - Major depressive disorder, recurrent severe without psychotic features (2) Borderline personality disorder: Status: Acute Code(s): F60.3 - Borderline personality disorder (3) PTSD (post-traumatic stress disorder): Status: Acute Code(s): F43.10 - Post-traumatic stress disorder, unspecified (4) Suicidal ideation: Status: Acute Code(s): R45.851 - Suicidal ideations Assessment and Plan: Sandi is 35 year-old (pronoun they/them) with hx of BPD, MDD, self presented to [facility] with SI in setting of recent loss of still born baby of friend who pt had planned to co-parent with friend. Pt expressed feeling of isolation as they grieve of stillborn in setting of not connecting with long time friend of 7 year who lost unborn baby. PLAN: continue to encourage utilizing skills, managing intense difficult emotions (pt does have multiple strengths, insightful), avoid enabling, remind of chronicity of suicidal ideation which has intensified with recent loss. HOSPITAL Course: 01/09/21: status change to 5 minutes checks on 01/09- no self harm behaviors/ monitor safety/ Pt in agreement to let staff know if not feeling safe 01/10/21: Coverage: No changes in plan of care. 01/11/21: Coverage: Per pt request changed Ativan tid prn to bid scheduled and qd prn as pt is using two per day scheduled. Pt reports sleep had improved with this use although dreams were still difficult. Discussed extra support for difficult days which she agrees will be helfpul. Much later in the day informed that pt had shared that she had tied socks together in an attempt to strangle herself. She is now on one to one. Continue to monitor process concerns. 01/12/21: One to one in place. Today is the anniversary of the last heartbeat heard of the baby. Pt grieving, isolated. Support, respect offered. No medication changes. Available to pt as needed. 01/24/21: Increased Trazodone to 250 mg HS. 01/25/21: Increase Trazodone to 300 mg HS. 01/26- no medication changes, pt stable, working on closure of relationships with staff on the unit. No SI/HI. encouraged pt to continue utilizing DBT skills, mentalization as they transition to PHP. PLAN d/c Tuesday. I spent minutes with the patient and/or on the patient floor today, greater than?50% of which was spent counseling/coordinating care. Reason for contiued inpatient stay Substantial Risk for: stable for discharge
[2021-01-26] MEDS: Amphetamine Mixed Salts 10 MG TABLET PO (14:48)
[2021-01-26] MEDS: hydrOXYzine HCL 25 MG TABLET PO (20:50)
[2021-01-26 21:47] VITALS: BP 120/64; PULSE 78
[2021-01-26] MEDS: traZODone HCL 100 MG TABLET 300 MG PO (21:47)
[2021-01-26] MEDS: Prazosin HCL 5 MG CAPSULE 10 MG PO (21:47)
[2021-01-26 21:50] VITALS: TEMP 36.6; O2SAT 96
[2021-01-27] MEDS: Lithium Carbonate ER 300 MG TABLET.ER 600 MG PO ×2 (10:03→21:35)
[2021-01-27] MEDS: Amphetamine Mixed Salts 20 MG TABLET PO (10:03)
[2021-01-27] MEDS: LORazepam 1 MG TABLET PO ×2 (10:04→21:36)
[2021-01-27] MEDS: Thiamine HCL 100 MG TABLET PO (10:04)
[2021-01-27] MEDS: Cholecalciferol (Vitamin D3) 25 MCG TABLET 50 MCG PO (10:04)
[2021-01-27 10:10] VITALS: BP 133/64; PULSE 98; RESP 16; TEMP 36.9; O2SAT 95
--- NOTE | 2021-01-27 10:31 | P.PNPSI_ITS ---
Subjective Subjective Date of Service: 01/27/21 Reason For Visit: SI Subjective Notes: Conditional Voluntary Interim History: This senior medical writer met with pt and clinician Alba. Pt reports is been difficult saying goodbye to staff they have worked closely with. Pt increasingly more future oriented, looking forward to return home, continue PHP, meet with OP therapist. They worried about wait time of one week to start PHP. VNA is set up. Pt has been visible in the unit, attends all assigned groups. Social with select peers. No behavioral concerns. Pt denies SI/HI. Plan for discharge is Tuesday. Medication Compliance: Yes Side effects from medications: No Attending Groups: Yes Review of Systems Acute medical concerns: No Review of Systems Review of Systems Yes Unobtainable due to mental status Constitutional: Reports body ache(s), Denies chills, Denies fatigue, Denies fever(s), Denies headache(s), Denies malaise and Denies weakness Eyes: Denies diplopia Denies vertigo, Denies dizziness, Denies otalgia, Denies headache(s), Denies mouth pain, Denies post nasal drip, Denies sinus pain, Denies sinus pressure, Denies sore throat and Denies throat swelling Cardiovascular: Denies chest pain, Denies syncope, Denies leg edema, Denies lightheadedness, Denies Loss of Consciousness, Denies palpitations and Denies dyspnea Respiratory: Denies chest congestion, Denies cough and Denies dyspnea Gastrointestinal: Denies abdominal pain, Denies hematochezia, Denies constipation, Denies diarrhea and Denies vomiting Musculoskeletal: Reports myalgias Skin/Breast: Denies erythema and Denies rash Denies confusion, Denies vertigo, Denies dizziness, Denies syncope, Denies headache(s) and Denies weakness Psychiatric: Reports anxiety, Denies confusion, Reports depression, Reports difficulty concentrating, Reports hopelessness, Reports anhedonia, Reports hallucinations and Reports suicidal ideation Endocrine: Denies fatigue and Denies palpitations Allergic/Immunologic: Denies throat swelling Mental Status Exam Mental Status Exam Narrative: Appearance: casually groomed, fair hygiene in NAD Behavior:guarded at times but cooperative psychomotor: no agitation or retardation noted Speech:clear, normal rate/rhythm/volume, spontaneous Thought process:linear Thought content:no signs of psychosis, increasingly more future oriented Mood: okay Affect: brighter at times SI:currently denies (although some chronic SI has been there since pt was child), denies intent or plan. HI:none VH/AH:none Delusions:none Insight/judgment:fair x 2. Memory/cog: alert, oriented x 3. grossly intact to conversational testing. Diagnostics Vital Signs (24Hr): Vital Signs - 24 hr 01/27/21 10:10 01/27/21 21:33 Temperature 98.4 F 97.9 F Pulse Rate 98 92 Respiratory Rate 16 18 Blood Pressure 133/64 138/64 Pulse Oximetry 95 98 Body Mass Index 40.3 Labs Results: 12/16/20 13:36 12/16/20 13:36 Medications Medications Current Medications Acetaminophen (Acetaminophen 325 Mg Tablet) 650 mg PO QID PRN PRN Reason: Pain Last Admin: 01/24/21 08:45 Dose: 650 mg Documented by: Al Hydroxide/Mg Hydroxide (Magnesium Hydrox/Alum Hydrox 30 Ml Oral.Susp) 30 ml PO Q6H PRN PRN Reason: Heartburn/Nausea Amphetamine/Dextroamphetamine (Amphetamine Mixed Salts 10 Mg Tablet) 10 mg PO DAILY@1400 REPLACED BY [facility] Last Admin: 01/27/21 15:01 Dose: 10 mg Documented by: Amphetamine/Dextroamphetamine (Amphetamine Mixed Salts 20 Mg Tablet) 20 mg PO DAILY REPLACED BY [facility] Last Admin: 01/28/21 08:54 Dose: 20 mg Documented by: Docusate Sodium (Docusate Sodium 100 Mg Capsule) 100 mg PO DAILY PRN PRN Reason: Constipation Last Admin: 01/07/21 12:29 Dose: 100 mg Documented by: Fluticasone Propionate (Fluticasone Propionate Nasal 16 Gm [place]) 1 spray NOSTRIL-B BID REPLACED BY [facility] Last Admin: 01/27/21 11:34 Dose: 1 spray Documented by: Hydroxyzine HCl (Hydroxyzine Hcl 25 Mg Tablet) 25 mg PO Q6H PRN PRN Reason: Anxiety Last Admin: 01/27/21 21:36 Dose: 25 mg Documented by: Ibuprofen (Ibuprofen 600 Mg Tablet) 600 mg PO DAILY PRN PRN Reason: cramping Last Admin: 01/15/21 12:41 Dose: 600 mg Documented by: [place] Carbonate ([place] Carbonate Er 300 Mg Tablet.Er) 600 mg PO BID REPLACED BY [facility] Last Admin: 01/28/21 08:54 Dose: 600 mg Documented by: Lorazepam (Lorazepam 1 Mg Tablet) 1 mg PO BID REPLACED BY [facility] Last Admin: 01/28/21 08:54 Dose: 1 mg Documented by: Lorazepam (Lorazepam 1 Mg Tablet) 1 mg PO DAILY PRN PRN Reason: anxiety Last Admin: 01/28/21 03:21 Dose: 1 mg Documented by: Magnesium Hydroxide (Milk Of Magnesia 30 Ml Oral.Susp) 30 ml PO DAILY PRN PRN Reason: Constipation Last Admin: 01/07/21 12:29 Dose: 30 ml Documented by: Nicotine Polacrilex (Nicotine Polacrilex 2 Mg Gum) 2 mg BUCCAL Q1H PRN PRN Reason: Nicotine Cravings Patient Own Med ( Desvenlafaxine Succinate [Pristiq] 100 Mg Tablet Extended Releas 1 each PO DAILY REPLACED BY [facility] Last Admin: 01/28/21 08:53 Dose: 1 each Documented by: Prazosin HCl (Prazosin Hcl 5 Mg Capsule) 10 mg PO BEDTIME REPLACED BY [facility]; Protocol Last Admin: 01/27/21 21:36 Dose: 10 mg Documented by: Quetiapine Fumarate (Quetiapine Fumarate 50 Mg Tablet) 50 mg PO DAILY PRN PRN Reason: mod-severe anxiety/ agitation Last Admin: 01/18/21 20:58 Dose: 50 mg Documented by: Quetiapine Fumarate (Quetiapine Fumarate 100 Mg Tablet) 100 mg PO DAILY PRN PRN Reason: severe anxiety Quetiapine Fumarate (Quetiapine Fumarate 25 Mg Tablet) 25 mg PO Q2H PRN PRN Reason: mild-mod anxiety/ agitation Thiamine HCl (Thiamine Hcl 100 Mg Tablet) 100 mg PO DAILY REPLACED BY [facility] Last Admin: 01/28/21 08:54 Dose: 100 mg Documented by: Trazodone HCl (Trazodone Hcl 100 Mg Tablet) 300 mg PO BEDTIME REPLACED BY [facility] Last Admin: 01/27/21 21:35 Dose: 300 mg Documented by: Vitamin D (Cholecalciferol (Vitamin D3) 25 Mcg Tablet) 50 mcg PO DAILY REPLACED BY [facility] Last Admin: 01/28/21 08:54 Dose: 50 mcg Documented by: Allergies Allergies Allergy/AdvReac Type Severity Reaction Status Date / Time oseltamivir [From TAMIFLU] Allergy Unknown FELT LIKE Unverified 12/20/19 19:22 BUGS WERE ALL OVER ME . Sulfa (Sulfonamide Allergy Unknown HIVES Unverified 09/17/20 19:22 Antibiotics) [SULFA (SULFONAMIDE ANTIBIOTICS)] sulfamethoxazole Allergy Unknown HIVES Unverified 12/20/19 19:22 [From BACTRIM] trimethoprim [From BACTRIM] Allergy Unknown HIVES Unverified 12/20/19 19:22 Assessment & Plan Assessment & Plan (1) Recurrent major depression-severe: Status: Acute Code(s): F33.2 - Major depressive disorder, recurrent severe without psychotic features (2) Borderline personality disorder: Status: Acute Code(s): F60.3 - Borderline personality disorder (3) PTSD (post-traumatic stress disorder): Status: Acute Code(s): F43.10 - Post-traumatic stress disorder, unspecified (4) Suicidal ideation: Status: Acute Code(s): R45.851 - Suicidal ideations Assessment and Plan: Sandi is 35 year-old (pronoun they/them) with hx of BPD, MDD, self presented to [facility] ED with SI in setting of recent loss of still born baby of friend who pt had planned to co-parent with friend. Pt expressed feeling of isolation as they grieve of stillborn in setting of not connecting with long time friend of 7 year who lost unborn baby. PLAN: continue to encourage utilizing skills, managing intense difficult emotions (pt does have multiple strengths, insightful), avoid enabling, remind of chronicity of suicidal ideation which has intensified with recent loss. HOSPITAL Course: 01/09/21: status change to 5 minutes checks on 01/09- no self harm behaviors/ monitor safety/ Pt in agreement to let staff know if not feeling safe 01/10/21: Coverage: No changes in plan of care. 01/11/21: Coverage: Per pt request changed Ativan tid prn to bid scheduled and qd prn as pt is using two per day scheduled. Pt reports sleep had improved with this use although dreams were still difficult. Discussed extra support for difficult days which she agrees will be helfpul. Much later in the day informed that pt had shared that she had tied socks together in an attempt to strangle herself. She is now on one to one. Continue to monitor process concerns. 01/12/21: One to one in place. Today is the anniversary of the last heartbeat heard of the baby. Pt grieving, isolated. Support, respect offered. No medication changes. Available to pt as needed. 01/24/21: Increased Trazodone to 250 mg HS. 01/25/21: Increase Trazodone to 300 mg HS. 01/26- no medication changes, pt stable, working on closure of relationships with staff on the unit. No SI/HI. encouraged pt to continue utilizing DBT skills, mentalization as they transition to [facility]. PLAN d/c Tuesday. I spent minutes with the patient and/or on the patient floor today, greater than?50% of which was spent counseling/coordinating care. Reason for contiued inpatient stay Substantial Risk for: stable for discharge
[2021-01-27] MEDS: Fluticasone Propionate Nasal 16 GM SPRAY 1 SPRAY NOSTRIL-B (11:34)
[2021-01-27] MEDS: Amphetamine Mixed Salts 10 MG TABLET PO (15:01)
[2021-01-27 21:33] VITALS: BP 138/64; PULSE 92; RESP 18; TEMP 36.6; O2SAT 98
[2021-01-27] MEDS: traZODone HCL 100 MG TABLET 300 MG PO (21:35)
[2021-01-27] MEDS: Prazosin HCL 5 MG CAPSULE 10 MG PO (21:36)
[2021-01-27] MEDS: hydrOXYzine HCL 25 MG TABLET PO (21:36)
[2021-01-28] MEDS: LORazepam 1 MG TABLET PO ×2 (03:21→08:54)
[2021-01-28 06:00] VITALS: BP 145/70; PULSE 105; RESP 16; TEMP 36.8; O2SAT 96
[2021-01-28] MEDS: Amphetamine Mixed Salts 20 MG TABLET PO (08:54)
[2021-01-28] MEDS: Lithium Carbonate ER 300 MG TABLET.ER 600 MG PO (08:54)
[2021-01-28] MEDS: Thiamine HCL 100 MG TABLET PO (08:54)
[2021-01-28] MEDS: Cholecalciferol (Vitamin D3) 25 MCG TABLET 50 MCG PO (08:54)
--- NOTE | 2021-01-28 09:29 | PM.PSYDC ---
DS: Providers Provider Date of Service: 01/28/21 Date of admission: 12/17/20 10:51 Primary care physician: Laura Collins MD DS: Diagnosis Discharge Diagnosis (1) Recurrent major depression-severe: Status: Deleted (2) Borderline personality disorder: Status: Ruled-out (3) PTSD (post-traumatic stress disorder): Status: Acute (4) Suicidal ideation: Status: Deleted DS: Medications Discharge Medications Home Medications: Previous Rx's Medication Instructions Recorded desvenlafaxine succinate 100 mg 100 mg PO DAILY 30 Days #30 tab 01/03/21 tablet,extended release 24 hr (Pristiq) cholecalciferol (vitamin D3) 25 50 mcg PO DAILY #30 tab 01/28/21 mcg (1,000 unit) tablet dextroamphetamine-amphetamine 10 10 mg PO DAILY@1400 #15 tab 01/28/21 mg tablet dextroamphetamine-amphetamine 20 20 mg PO DAILY #15 tab 01/28/21 mg tablet docusate sodium 100 mg capsule 100 mg PO DAILY PRN #30 cap 01/28/21 fluticasone propionate 50 1 spray INTRANASAL BID #16 g 01/28/21 mcg/actuation nasal spray,suspension lithium carbonate 300 mg 600 mg PO BID #60 tab 01/28/21 tablet,extended release lorazepam 1 mg tablet 1 mg PO BID #30 tab 01/28/21 lorazepam 1 mg tablet 1 mg PO DAILY PRN #15 tab 01/28/21 prazosin 5 mg capsule 10 mg PO BEDTIME #30 cap 01/28/21 quetiapine 50 mg tablet 50 mg PO BID PRN #60 tab 01/28/21 thiamine mononitrate (vit B1) 100 100 mg PO DAILY #30 tab 01/28/21 mg tablet trazodone 100 mg tablet 300 mg PO BEDTIME #45 tab 01/28/21 Mental Status Exam Mental Status Exam Narrative: Appearance: casually groomed, fair hygiene in NAD Behavior:guarded at times but cooperative psychomotor: no agitation or retardation noted Speech:clear, normal rate/rhythm/volume, spontaneous Thought process:linear Thought content:no signs of psychosis, increasingly more future oriented Mood: okay Affect: brighter at times SI:currently denies (although some chronic SI has been there since pt was child), denies intent or plan. HI:none VH/AH:none Delusions:none Insight/judgment:fair x 2. Memory/cog: alert, oriented x 3. grossly intact to conversational testing. DS: Summary Hospital Course Hospital Course: per CARE team report, pt presented to ED saying they had nothing to hold on for. ? they had spoken with their therapist the day prior to arrival and had made a plan for admission the following day.? seroquel dosing was recently decreased to 75 mg, sister got last tuesday, and per report pt's friend's baby was still-born at full term and pt was planing to help her raise the child.? she reported a plan to overdose on ativan and then swim out to the middle of a [place] and float until they couldn't anymore.? they reported cannabis use in recent days.? they have strong treatment supports - seeing therapist twice weekly currently - and hospitalization was felt to be required for pt's safety.? on attempted interview, pt declined to speak with MD, saying only, no, thank you, and, i was supposed to have Melanie. Past Psychiatric History: She has been on treatment since she was 14, with more than 15 admissions due to suicidal ideation.? She follows Dr. Seals as an outpatient.? has documented h/o 2-3 suicide attempts via overdose. h/o cutting, burning, head banging. BPD Dx. Medical Evaluation Reviewed: Yes HOSPITAL COURSE On the unit, Sandi was admitted on a CV. They reported ongoing and chronic SI with intent at times in setting of recent loss of baby of friend that they had plan to care about after . Sandi was initially assigned under care of Dr. Muhammad. 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 After discussing risks, benefits and alternative treatment options, pt agreed to continue [place], pristiq and adderall. They used seroquel prn for anxiety and trazodone for sleep. Sandi was visible in the unit and attended assigned groups. Most of the work inpatient was focused on encouraging, practicing and reminding pt of skills they have learned over the years in terms of self-regulation, mentalization to process loss and transitions. Sandi showed increase insight in that they were able to tolerate difficult conversations without significant mood dysregulation. They did not have self injurious behaviors several days prior to discharge. Sandi presented increasingly more visible, brighter affect and without plan or intent to hurt self several days prior to discharge. They agreed to continue PHP and to continue working with terminal make up operator psychotherapist. Collateral information gathered from OP psychotherapist, Misti, who reported pt appeared close to baseline, much more future oriented and denied any safety concerns at time of discharge. Status at Discharge Cognitive/behavioral status at discharge: Pt with brighter affect, increasingly more future oriented, no SI/HI. no self injurious behaviors. Looking forward to step down to PHP. No signs of aggression towards self or others. Pt shows increase insight and utilizing combination of DBT and, mentalization skills Functional status at discharge: independent ambulation Overall status at discharge: patient is progressing back to baseline Time Spent with Patient Time attestation: Total time spent providing and/or coordinating discharge services: Time spent: Greater than 30 minutes Discharge Plan Discharge Patient Disposition: Home, Self-Care Discharge Diagnosis: MDD, recurrent, moderate PTSD BPD Referrals: Intake Appointment (for psychiatrist) [Other] - 02/02/21 11:00 am (Intake is virtual, you should receive an email confirmation and link. Once you complete this appointment you will be referred to begin services with Nat[facility] ) Amelia MORSE [Other] - 01/29/21 (They will be coming sometime in the morning to set up medications and determine a daily schedule for visits PLEASE - Fax DC paperwork to ATTN: Rosalee Jerry # ) Dr. Seals, psychiatry, [facility] [Other] - 02/06/21 11:00 am Iesha Arguello (therapist) [Other] - 01/29/21 10:30 am (Telehealth appointment) Yasmeen Floyd ([facility]) [Other] (Call for assistance with applications/changing insurance while waiting for CSP worker to be set up) CSP Worker ([facility]) [Other] (Referral submitted, they should be calling to set up services within a few weeks. Call to follow up if you do not hear from them) PHP [Other] - 01/29/21 12:00 pm (You will get an email with the link for your intake, please call if you have any issues accessing the link) Jill (social work) [Other] Alba (social work) [Other] Laura Collins MD [Primary Care Provider] - 02/04/21 10:45 am Discharge Medications: New docusate sodium 100 mg Capsule 100 mg PO DAILY PRN (Reason: Constipation) Qty: 30 RF: 0 quetiapine 50 mg Tablet 50 mg PO BID PRN (Reason: mod-severe anxiety/ agitation) Qty: 60 RF: 0 cholecalciferol (vitamin D3) 25 mcg (1,000 unit) Tablet 50 mcg PO DAILY Qty: 30 RF: 0 thiamine mononitrate (vit B1) 100 mg Tablet 100 mg PO DAILY Qty: 30 RF: 0 Discontinued dextroamphetamine-amphetamine [Adderall] 10 mg tablet 10 mg PO DAILY@1400 Qty: 30 RF: 0 thiamine HCl (vitamin B1) [Vitamin B-1] 100 mg tablet 100 mg PO DAILY Qty: 30 RF: 3 lithium carbonate 300 mg Tablet Extended Release 600 mg PO BID 30 Days Qty: 60 RF: 0 dextroamphetamine-amphetamine [Adderall] 20 mg tablet 20 mg PO DAILY Qty: 30 RF: 0 lorazepam 1 mg tablet 1 mg PO BID PRN (Reason: anxiety) Qty: 60 RF: 0 desvenlafaxine succinate [Pristiq] 100 mg tablet extended release 24 hr 100 mg PO DAILY Qty: 30 RF: 1 cholecalciferol (vitamin D3) [Vitamin D3] 50 mcg (2,000 unit) capsule 50 mcg PO DAILY Qty: 30 RF: 3 acetaminophen 500 mg Tablet 1,000 mg PO QID PRN (Reason: Pain) RF: 0 fluticasone propionate [Flonase] 50 mcg/actuation [place],Suspension 1 spray INTRANASAL DAILY RF: 0 prazosin 5 mg capsule 10 mg PO BEDTIME RF: 0 [place] 40 mg capsule,extended release 24 hr 1 cap PO DAILY RF: 0 quetiapine 25 mg tablet 25 mg PO BEDTIME RF: 0 No Action fluticasone propionate 50 mcg/actuation spray,suspension 1 - 2 spray intranasal DAILY RF: 0 melatonin 3 mg tablet 3 mg PO BEDTIME PRN (Reason: sleep) Qty: 14 RF: 0 dextroamphetamine-amphetamine 10 mg tablet 10 mg PO DAILY 30 Days Qty: 30 RF: 0 dextroamphetamine-amphetamine 20 mg tablet 20 mg PO DAILY 30 Days Qty: 30 RF: 0 prazosin 5 mg capsule 10 mg PO BEDTIME Qty: 60 RF: 0 lithium carbonate 300 mg tablet extended release 600 mg PO BID Qty: 60 RF: 0 trazodone 100 mg tablet 300 mg PO BEDTIME Qty: 90 RF: 0 lorazepam 1 mg tablet 1 mg PO BID Qty: 60 RF: 0 lorazepam 1 mg tablet 1 mg PO DAILY PRN (Reason: anxiety) Qty: 30 RF: 0 desvenlafaxine 100 mg tablet extended release 24 hr 100 mg PO DAILY 30 Days Qty: 30 RF: 0 Discharge Orders: Discharge Order (Routine); Ordered 01/28/21 Ordered By: Ynes Parada Diet: regular diet Activity on Discharge: As tolerated Stand Alone Forms: Patient Portal Discharge page, Community Support Care Plan Goals: 1. Maintain mood 2. No SI/HI. Health Concerns: 1. Follow up PCP Plan of Treatment: 1. Take medications as prescribed 2. Go to nearest ED or call 911 in event of emergency. Assessment: Pt more stable, brighter affect, increasingly more future oriented. No signs of aggression towards self or others. Discharge Date/Time: 01/28/21 12:00
[2021-01-28] MEDS: Fluticasone Propionate Nasal 16 GM SPRAY 1 SPRAY NOSTRIL-B (10:29)
== END 2021-01-28 12:00 | disposition home or self-care (01) | DRG 885 ==
LOC: HO.ED 12:11 → HO.PADLT16 12-17 11:12
PROVIDERS: Emergency Medicine Emergency Medical Services; Registered Nurse; Admitting Provider Psychiatry & Neurology Psychiatry; Emergency Provider Internal Medicine; PCP Family Medicine; Visit Provider Social Worker
DX: F33.2 Major depressive disorder, recurrent severe without psychotic features (principal); R45.851 Suicidal ideations; F43.10 Post-traumatic stress disorder, unspecified; Z20.822 Contact with and (suspected) exposure to COVID-19; F60.3 Borderline personality disorder; Z23 Encounter for immunization; Z88.2 Allergy status to sulfonamides; Z79.51 Long term (current) use of inhaled steroids; Z79.899 Other long term (current) drug therapy
CPT/HCPCS: 36415; 80048; 80178; 80307; 81025; 85025; 87635; 90686; 93005; 99285

== ENCOUNTER 2021-02-18 08:45 | Outpatient (RCR) | payer OTHER, SELFPAY ==
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
--- NOTE | 2021-02-02 09:36 | PC.ADMIT ---
Patient is a 35 year old who goes by the name of Sandi and identifies as a non-binary individual who uses they/them pronouns. They were referred to [facility] by [facility] inpatient unit where they were admitted on 12/17/20 for increased depression with SI, increased anxiety, PTSD sxs, and grief. Per records patient's friend had a still born which greatly affected patient as they were going to co-parent with their friend to help raise the baby. Patient struggling with much grief and loss. At the time of admission to inpatient unit patient was reporting SI with plan to overdose on Ativan and drown self in a alejandro. Patient reportedly wrote goodbye letters to friends. Patient was discharged from the unit on 01/28/21 and is at [facility] for step down to treatment and continued stabilization. Patient has a history of significant trauma. Has a history of many inpatient admissions struggling with chronic depression and SI with significant PTSD sxs. Patient reports some improvement with symptoms since hospitalization reporting that they still have SI however it is less and passive with no intent. Patient gave verbal permission to email them a copy of their safety plan. Patient continues to struggle with loss and grief, depression, and PTSD sxs. Patient presents with depressed mood and affect. Feeling overwhelmed with grief with despair and hopelessness. Patient planning on going to grief group called [facility] for more support. Medications reconciled with patient and inpatient discharge paperwork. Patient reports taking as prescribed. Patient has a VNA who administers patient medications. [ End ]
--- NOTE | 2021-02-02 15:21 | PC.NURSE ---
Case opened in treatment team.
--- NOTE | 2021-02-09 14:41 | PC.NURSE ---
I called and spoke to pt. They reported an overall positive experience in groups, but also feeling a bit triggered by the breathing of a peer, and having thoughts that it feels their grief might be too big to bring to the group (might feel unsafe, others don't seem to relate well). We discussed use of groups, and ideas for sharing. I also brought up the possibility of joining a mental health clubhouse and pt had not heard of this before. They said they are not in a place to do this now, but will consider it for later. Pt reported plans to return to [facility] to continue with their abridged version of day treatment. they also have a visiting nurse, and a referral has been placed for a CSP. They also told me about plans to attend a support group called [facility], for people who have lost babies to stillbirth or who have miscarried. They said an organizer by the name of Cheri will join them.
--- NOTE | 2021-02-11 17:33 | HO.PHPPROGNO ---
Subjective Subjective Date of Service: 02/11/21 Reason For Visit: MDD recurrent severe, PTSD, BPD Guardianship: No Medical Problems Affecting Mental Status: No Interim History: Sandi reports feeling okay . Reports that she continues with passive SI, no intent or plan. Reports poor sleep continues due to stopping Seroquel several weeks ago. Reports they will continue working with Dr. Seals as outpatient psychiatrist for now, has completed intake with new provider, will start working with new provider on April 17. Finding groups helpful. Reports has purchased life like dolls that are helping work through grief process. Medication Compliance: Yes Side effects from medications: No Attending Groups: Yes Review of Systems Acute medical concerns: No Medical Review of Systems: unchanged Mental Status Exam Mental Status Exam Narrative: Well-developed, well-nourished person, in NAD. Patient Appearance: Well Grooomed and Appropriate Patient Orientation: Person, Place, Time and Situation Level of Consciousness: Awake, Appropriate and Alert Patient Behavior: Appropriate, Cooperative and Good Eye Contact Mood Description: Appropriate Affect Description: Calm, Appropriate, Constricted, Depressed and Flat Patient Cognition Impaired: No Ability to Follow Directions: Excellent Speech Pattern: Clear, Appropriate, Spontaneous Speech and Coherent Memory Description: Intact Hallucinations: None Delusions: Not Present Thought Process: Intact, Goal Oriented and Linear Thought Content: positive for Intact and positive for Suicidal Ideation (Passive ongoing SI, no intent or plan at this time.) Depressive Symptoms: Difficulty Sleeping, Unhappiness and Increased Fatigue Judgement: Fair Assessment & Plan Assessment & Plan (1) MDD (major depressive disorder), recurrent severe, without psychosis: Status: Acute Code(s): F33.2 - Major depressive disorder, recurrent severe without psychotic features Assessment and Plan: Client continues with depressive symptoms, dysphoric mood. Reports ongoing SI, no intent or plan at this time. No safety concern at this time. Reports ongoing sleep issues, specially since stopping Seroquel several weeks ago. Questioning melatonin. Medication discussed, risks, benefits, side effects, alternatives. Recommend low-dose trial. Client was agreeable. Client requests refill of Adderall at this time, as they have run out. (2) PTSD (post-traumatic stress disorder): Status: Acute Code(s): F43.10 - Post-traumatic stress disorder, unspecified Assessment and Plan: 1. Refill for adderall 20mg and 10mg sent to pharmacy for 30 day supply of each. 2. Client plans to try OTC melatonin at low dose of 3 mg p.r.n. for sleep. 3. Follow-up as per protocol. Patient educated on: diagnosis, medication risk/benefits and therapeutic strategies Informed Consent: understands Reason for contiued partial hosp. stay Substantial Risk for: harm to self, inability to function and med/psych decompensation Certification I certify that partial hospital treatment is medically necessary due to the symptoms and problems resulting from the patient's mental illness and the failure to treat the patient at the partial hospital level of care would likely result in the patient requiring inpatient psychiatric care which could not be prevented at a less intensive level of care. I spent minutes with the patient and/or on the patient floor today, greater than?50% of which was spent counseling/coordinating care. Discharge Plan Discharge Attending provider: Raffi Pozo Primary Care Provider: Laura Collins Medications: New melatonin 3 mg tablet 3 mg PO BEDTIME PRN (Reason: sleep) Qty: 14 RF: 0 dextroamphetamine-amphetamine 10 mg tablet 10 mg PO DAILY 30 Days Qty: 30 RF: 0 dextroamphetamine-amphetamine 20 mg tablet 20 mg PO DAILY 30 Days Qty: 30 RF: 0 Discontinued dextroamphetamine-amphetamine 10 mg Tablet 10 mg PO DAILY@1400 Qty: 15 RF: 0 dextroamphetamine-amphetamine 20 mg Tablet 20 mg PO DAILY Qty: 15 RF: 0 No Action lithium carbonate 300 mg Tablet Extended Release 600 mg PO BID Qty: 60 RF: 0 prazosin 5 mg Capsule 10 mg PO BEDTIME Qty: 30 RF: 0 lorazepam 1 mg Tablet 1 mg PO BID Qty: 30 RF: 0 lorazepam 1 mg Tablet 1 mg PO DAILY PRN (Reason: anxiety) Qty: 15 RF: 0 trazodone 100 mg Tablet 300 mg PO BEDTIME Qty: 45 RF: 0 docusate sodium 100 mg Capsule 100 mg PO DAILY PRN (Reason: Constipation) Qty: 30 RF: 0 quetiapine 50 mg Tablet 50 mg PO BID PRN (Reason: mod-severe anxiety/ agitation) Qty: 60 RF: 0 cholecalciferol (vitamin D3) 25 mcg (1,000 unit) Tablet 50 mcg PO DAILY Qty: 30 RF: 0 thiamine mononitrate (vit B1) 100 mg Tablet 100 mg PO DAILY Qty: 30 RF: 0 fluticasone propionate 50 mcg/actuation spray,suspension 1 - 2 spray intranasal DAILY RF: 0 desvenlafaxine succinate 100 mg Tablet Extended Release 24 Hr 100 mg PO DAILY RF: 0 Referrals: Laura Collins MD [Primary Care Provider] - 1 Week Stand Alone Forms: Patient Portal Discharge page Telehealth Telehealth Location of provider rendering services: practice address Location of patient: address on file Patient Identification confirmed using: Name, : Yes Telehealth method: video Patient verbally consented to treatment: Yes Patient verbally consented to billing insurance company: Yes Patient informed of any privacy concerns related to visit: Yes Time spent with patient (mins): 15
--- NOTE | 2021-02-16 15:15 | HO.PHPPROGNO ---
Subjective Subjective Date of Service: 02/16/21 Reason For Visit: MDD recurrent severe, PTSD, BPD Guardianship: No Medical Problems Affecting Mental Status: No Interim History: Sandi reports no significant improvement regarding passive SI, depressive symptoms. Does report they have no intent or plan to harm himself or anybody else at this time. Reports that they feel participation in PHP via telehealth is not currently helping manage their symptoms very well. Request medication refills. Medication Compliance: Yes Side effects from medications: No Attending Groups: Yes Review of Systems Acute medical concerns: No Medical Review of Systems: unchanged Mental Status Exam Mental Status Exam Narrative: Well-developed, well-nourished person, in NAD. Patient Appearance: Well Grooomed and Appropriate Patient Orientation: Person, Place, Time and Situation Level of Consciousness: Awake, Appropriate and Alert Patient Behavior: Appropriate, Cooperative, Good Eye Contact and Crying (Tearful at times during encounter.) Mood Description: Appropriate and Depressed Affect Description: Appropriate, Constricted, Depressed, Blunted, Flat and Sad Patient Cognition Impaired: No Ability to Follow Directions: Excellent Speech Pattern: Clear, Appropriate, Spontaneous Speech and Coherent Memory Description: Intact Hallucinations: None Delusions: Not Present Thought Process: Intact, Goal Oriented and Linear Thought Content: positive for Intact and positive for Suicidal Ideation (Passive ongoing SI, no intent or plan at this time.) Depressive Symptoms: Difficulty Sleeping, Crying Spells, Hopelessness, Unhappiness, Increased Fatigue, Thoughts of /Suicide (Passive SI, no intent or plan.) and Loss of Energy Judgement: Fair Assessment & Plan Assessment & Plan (1) MDD (major depressive disorder), recurrent severe, without psychosis: Status: Acute Code(s): F33.2 - Major depressive disorder, recurrent severe without psychotic features Assessment and Plan: They had a continues with dysphoric mood. Feels PHP is not really helpful at this time in addressing symptom management or building upon healthy coping skills. They attribute this due to program being online rather than in person, states they miss that personal connection. Although they continue with passive SI, they have no intent or plan, no safety concern at this time. Requesting refills of medications. At this point, client is unsure as to whether or not they will complete full program, they are in contact with their clinician here to discuss further. (2) PTSD (post-traumatic stress disorder): Status: Acute Code(s): F43.10 - Post-traumatic stress disorder, unspecified Assessment and Plan: 1. Refills sent to pharmacy for prazosin, lithium, trazodone, Ativan, Pristiq. 2. Follow-up as per protocol. Patient educated on: diagnosis, medication risk/benefits and therapeutic strategies Informed Consent: understands Reason for contiued partial hosp. stay Substantial Risk for: inability to function and med/psych decompensation Certification I certify that partial hospital treatment is medically necessary due to the symptoms and problems resulting from the patient's mental illness and the failure to treat the patient at the partial hospital level of care would likely result in the patient requiring inpatient psychiatric care which could not be prevented at a less intensive level of care. I spent minutes with the patient and/or on the patient floor today, greater than?50% of which was spent counseling/coordinating care. Discharge Plan Discharge Attending provider: Raffi Pozo Primary Care Provider: Laura Collins Medications: New melatonin 3 mg tablet 3 mg PO BEDTIME PRN (Reason: sleep) Qty: 14 RF: 0 dextroamphetamine-amphetamine 10 mg tablet 10 mg PO DAILY 30 Days Qty: 30 RF: 0 dextroamphetamine-amphetamine 20 mg tablet 20 mg PO DAILY 30 Days Qty: 30 RF: 0 prazosin 5 mg capsule 10 mg PO BEDTIME Qty: 60 RF: 0 lithium carbonate 300 mg tablet extended release 600 mg PO BID Qty: 60 RF: 0 trazodone 100 mg tablet 300 mg PO BEDTIME Qty: 90 RF: 0 lorazepam 1 mg tablet 1 mg PO BID Qty: 60 RF: 0 lorazepam 1 mg tablet 1 mg PO DAILY PRN (Reason: anxiety) Qty: 30 RF: 0 desvenlafaxine 100 mg tablet extended release 24 hr 100 mg PO DAILY 30 Days Qty: 30 RF: 0 Discontinued dextroamphetamine-amphetamine 10 mg Tablet 10 mg PO DAILY@1400 Qty: 15 RF: 0 lithium carbonate 300 mg Tablet Extended Release 600 mg PO BID Qty: 60 RF: 0 prazosin 5 mg Capsule 10 mg PO BEDTIME Qty: 30 RF: 0 dextroamphetamine-amphetamine 20 mg Tablet 20 mg PO DAILY Qty: 15 RF: 0 lorazepam 1 mg Tablet 1 mg PO BID Qty: 30 RF: 0 lorazepam 1 mg Tablet 1 mg PO DAILY PRN (Reason: anxiety) Qty: 15 RF: 0 trazodone 100 mg Tablet 300 mg PO BEDTIME Qty: 45 RF: 0 desvenlafaxine succinate 100 mg Tablet Extended Release 24 Hr 100 mg PO DAILY RF: 0 No Action docusate sodium 100 mg Capsule 100 mg PO DAILY PRN (Reason: Constipation) Qty: 30 RF: 0 quetiapine 50 mg Tablet 50 mg PO BID PRN (Reason: mod-severe anxiety/ agitation) Qty: 60 RF: 0 cholecalciferol (vitamin D3) 25 mcg (1,000 unit) Tablet 50 mcg PO DAILY Qty: 30 RF: 0 thiamine mononitrate (vit B1) 100 mg Tablet 100 mg PO DAILY Qty: 30 RF: 0 fluticasone propionate 50 mcg/actuation spray,suspension 1 - 2 spray intranasal DAILY RF: 0 Referrals: Laura Collins MD [Primary Care Provider] - 1 Week Stand Alone Forms: Patient Portal Discharge page Telehealth Telehealth Location of provider rendering services: practice address Location of patient: address on file Patient Identification confirmed using: Name, : Yes Telehealth method: video Patient verbally consented to treatment: Yes Patient verbally consented to billing insurance company: Yes Patient informed of any privacy concerns related to visit: Yes Time spent with patient (mins): 15
--- NOTE | 2021-02-18 12:05 | PC.NURSE ---
Patient scheduled to discharge from the program today. Asked patient how they felt about discharge and they stated they asked to be discharged today. Asked if patient had SI and patient stated they always have SI however stated that they do not have any intent to harm or kill themselves. Patient reports that they will be attending [facility] grief group next week and are planning on attending [facility] Day treatment program. Reviewed patient medications with patient. Patient takes as prescribed, has a VNA who administers patient medications.
--- NOTE | 2021-02-18 13:20 | PC.NURSE ---
I called and spoke to Iseha Arguello, [facility], pt's therapist. I let her know about pt's discharge today, and our willingness to take pt back into the program if needed. Iesha will see pt 2 times per week.
--- NOTE | 2021-02-18 16:05 | P.EN_ITS ---
Event Note Date of Service: 02/18/21 Event Note: Call from [facility], as scripts for Ativan could not be juan francisco led due to 1 script for p.r.n. and another script for scheduled. Corrected script sent electronically today. Script is for Ativan 1 mg b.i.d., with 1 mg daily p.r.n. for anxiety.
== END 2021-02-19 07:06 | disposition home or self-care (01) ==
LOC: HO.PHPA 08:45
PROVIDERS: PCP Family Medicine; Visit Provider Psychiatry & Neurology Psychiatry
DX: F33.2 Major depressive disorder, recurrent severe without psychotic features (principal); F43.10 Post-traumatic stress disorder, unspecified; F60.3 Borderline personality disorder; Z79.899 Other long term (current) drug therapy
CPT/HCPCS: 90791; 90853

== ENCOUNTER 2021-03-14 14:37 | Inpatient (IN) | payer OTHER, SELFPAY ==
--- NOTE | 2021-03-14 | ECG_ITS ---
Test Reason : OD Blood Pressure : / mmHG Vent. Rate : 103 BPM Atrial Rate : 103 BPM P-R Int : 166 ms QRS Dur : 090 ms QT Int : 338 ms P-R-T Axes : 020 050 032 degrees QTc Int : 442 ms Sinus tachycardia Otherwise normal ECG When compared with ECG of 16-DEC-2020 13:40, No significant change was found Referred By: Katelynn Vincent Electronically Signed By:LUCIEN CABALLERO MD
--- NOTE | ~2021-03-14 | CT_ITS ---
CT HEAD WITHOUT CONTRAST CT head/brain wo con CLINICAL INFORMATION: Reason for Exam pt head banging COMPARISON: No prior CT scan available for comparison. TECHNIQUE: Department standard protocol. This CT examination was performed using dose optimization techniques as appropriate, variously including the following: *Automated exposure control *Adjustment of mA and/or kV according to patient size (this includes techniques or standardized protocols for targeted exams where dose is matched to indication/reason for exam; i.e. extremities or head) *Use of iterative reconstruction technique DLP: 783 mGy-cm FINDINGS: CEREBRAL HEMISPHERES: There is no evidence of intra-axial or extra-axial mass, hemorrhage or acute infarct. BRAIN PARENCHYMA: Normal wilkinson-white matter differentiation. SUBDURAL SPACE: No bleed. BASAL GANGLIA AND PINEAL GLAND: Unremarkable VENTRICLES: Symmetric and normal in size. CEREBELLUM AND BRAINSTEM: No space-occupying mass, hemorrhage or acute infarct. CEREBELLOPONTINE ANGLES: No lesion found. ORBITS: No intraorbital mass. VESSELS: Unremarkable SKULL BASE: Unremarkable INCLUDED SINUSES AT SKULL BASE: Clear SKULL AND SKIN: No fracture or bone lesion found. CT/CT head/brain wo con IMPRESSION: No CT evidence of intracranial bleed or hemorrhage.
--- NOTE | ~2021-03-14 | XR_ITS ---
EXAMINATION: XR CHEST CLINICAL INFORMATION: Chest pain COMPARISON: None TECHNIQUE: 2 views of the chest were obtained. FINDINGS: No significant abnormality is noted involving the heart, lungs, mediastinum, bony thorax or soft tissues. XR/XR chest 2V IMPRESSION: Unremarkable examination.
[2021-03-14 14:41] VITALS: BP 154/84; PULSE 111; RESP 16; TEMP 36.7; O2SAT 98; BMI 32.4
--- NOTE | 2021-03-14 15:05 | ED_ITS ---
HPI - Psych General Chief Complaint: Psychiatric Symptoms Stated Complaint: SI/Crisis Time Seen by Provider: 03/14/21 15:03 Source: patient Mode of arrival: ambulatory Limitations: no limitations History of Present Illness MD complaint: suicidal ideation and feels depressed Onset (ago): day(s) Duration: getting worse History of same: Yes Relieving factors: none Exacerbating factors: none Context: significant life stressor Associated psychiatric symptoms: depression and suicidal ideation Associated symptoms: denies other symptoms Treatments prior to arrival: none If self harm: admits thoughts of self harm, has plan and has acted on plan (held her phone as[employer] studies [employer] chair cord around her neck and tried to tie it but then she stopped herself) Related Data Home Medications Medication Instructions Recorded Confirmed fluticasone propionate 50 1 - 2 spray INTRANASAL DAILY 01/30/21 01/30/21 mcg/actuation nasal spray,suspension Previous Rx's Medication Instructions Recorded cholecalciferol (vitamin D3) 25 50 mcg PO DAILY #30 tab 01/28/21 mcg (1,000 unit) tablet docusate sodium 100 mg capsule 100 mg PO DAILY PRN #30 cap 01/28/21 quetiapine 50 mg tablet 50 mg PO BID PRN #60 tab 01/28/21 thiamine mononitrate (vit B1) 100 100 mg PO DAILY #30 tab 01/28/21 mg tablet dextroamphetamine-amphetamine 10 10 mg PO DAILY 30 Days #30 tab 02/11/21 mg tablet dextroamphetamine-amphetamine 20 20 mg PO DAILY 30 Days #30 tab 02/11/21 mg tablet melatonin 3 mg tablet 3 mg PO BEDTIME PRN #14 tab 02/11/21 desvenlafaxine 100 mg 100 mg PO DAILY 30 Days #30 tab 02/16/21 tablet,extended release 24 hr lithium carbonate 300 mg 600 mg PO BID #60 tab 02/16/21 tablet,extended release prazosin 5 mg capsule 10 mg PO BEDTIME #60 cap 02/16/21 trazodone 100 mg tablet 300 mg PO BEDTIME #90 tab 02/16/21 lorazepam 1 mg tablet 1 mg PO TID 30 Days #90 tab 02/18/21 Allergies Allergy/AdvReac Type Severity Reaction Status Date / Time oseltamivir [From TAMIFLU] Allergy Unknown FELT LIKE Unverified 12/20/19 19:22 BUGS WERE ALL OVER ME . Sulfa (Sulfonamide Allergy Unknown HIVES Unverified 12/20/19 19:22 Antibiotics) [SULFA (SULFONAMIDE ANTIBIOTICS)] sulfamethoxazole Allergy Unknown HIVES Unverified 12/20/19 19:22 [From BACTRIM] trimethoprim [From BACTRIM] Allergy Unknown HIVES Unverified 12/20/19 19:22 Review of Systems Review of Systems: Constitutional : No Fever, No Chills ENT/Mouth : No Ear Pain, No Nasal Congestion, No sore throat Eyes: No Eye Pain, No Swelling, No Redness Cardiovascular : No Chest Pain, No SOB Respiratory : No Cough, No Sputum, No Dyspnea Gastrointestinal : No Nausea, No Vomiting, No Diarrhea, No Hematochezia, No Melena Genitourinary : No Dysuria, No Urinary Frequency, No Hematuria Musculoskeletal : No Myalgias Skin : No Skin Lesions, No rash Neuro : No Weakness, No Numbness, No Paresthesias, No Dizziness, No Headache Psych : positive Anxiety, positive Depression, positive SI no HI Heme/Lymph: No Lymphadenopathy Endocrine : No Polyuria, No Polydipsia All other systems reviewed and are negative ON LICENSE OF [facility] Past Medical History Medical History PTSD (post-traumatic stress disorder) Social History Social History Household Members: Friend(s) Household Members Other:: Roommate Housing: Apartment Housing Other:: downstairs landlord Do you presently have visiting nurse or other home services: No Patient Tobacco Use Status: Current everyday Tobacco user Tobacco use type: Cigarette Cigarette Packs Per Day: 1 Cigarettes Per Day: 10 Years Smoked: Since teenager e-Cigarette/Vaping Use: Currently Using Second Hand Smoke Exposure: No Substance Use Type: Marijuana and Caffiene Advance Directives: No Advance Directives Information Provided: No service: No Sexual orientation: Did not discuss. Physical Exam Vital Signs: Vital Signs: Last Vital Signs Temp 98.0 F 03/14/21 14:41 Pulse 111 H 03/14/21 14:41 Resp 16 03/14/21 14:41 BP 154/84 H 03/14/21 14:41 Pulse Ox 98 03/14/21 14:41 BMI result Body Mass Index 32.4 Appearance: Alert. Oriented X3. No acute distress. Eyes: Pupils equal, round and reactive to light. ENT: Pharynx normal. Neck: Normal inspection. Neck supple. no midline ttp, has superficial bruising R lateral neck CVS: Normal heart rate and rhythm. Pulses normal. Respiratory: No respiratory distress. Breath sounds normal. Abdomen: Soft and nontender. Skin: Skin warm and dry. Normal skin color. Normal skin turgor. Extremities: No lower extremity edema. No calf ttp Neuro: Oriented X 3. No motor deficit. No sensory deficit. CN 2-12 intact Course Course Course Narrative: Physician observation started at 413pm Patient placed in physician observation because the patient needed more time for BHN to assess the need for inpatient psychiatry. At the time observation was started the patie nt's vitals were stable, patient is alert and oriented, Neuro: nonfocal, CV RRR, Lungs clear MDM - Psych MDM Narrative Medical decision making narrative: 35 yo female with MDD, PTSD here with SI - she reports trying to tie her phone [employer] studies [employer] chair cord around her neck - she has some bruising but no midline ttp no loc, no diff swallowing and no change in voice - I do not suspect injury as she was not hanging but attempted to tie it herself. At this time labs, BHN consult ordered. Lab Data Result diagrams: 03/14/21 15:38 03/14/21 15:37 Labs: Lab Results 03/14/21 03/14/21 03/14/21 Range/Units 15:31 15:31 15:31 WBC (4.8-10.8) X10*3/uL RBC (4.20-5.50) X10*6/uL Hgb (12.0-16.0) g/dl Hct (37.0-47.0) % MCV (80.0-98.0) fL MCH (27.0-33.0) pg MCHC (31.0-35.0) g/dl RDW (11.0-16.0) % Plt Count (160-400) X10*3/uL MPV (9.4-12.3) fL Immature Gran % (Auto) (0.0-0.4) % Neut % (Auto) (45-73) % Lymph % (Auto) (20-40) % [place] % (Auto) (2-11) % Eos % (Auto) (0-4) % Baso % (Auto) (0-2) % Lymph # (Auto) (1.2-4.9) X10*3/uL [place] # (Auto) (0.1-1.2) X10*3/uL Eos # (Auto) (0.0-0.4) X10*3/uL Baso # (Auto) (0.0-0.2) X10*3/uL Abs Immat Gran (auto) (0.00-0.03) X10*3/uL Absolute Neuts (auto) (2.0-8.3) x10*3/uL Absolute Nucleated RBC (0.0-0.012) X10*3/uL Nucleated RBC % (auto) (0.0-0.2) /100WBC Sodium (135-145) mmol/L Potassium (3.3-5.1) mmol/L Chloride (96-108) mmol/L Carbon Dioxide (22-29) mmol/L Anion Gap (12-20) BUN (9-16) mg/dL Creatinine (0.5-1.4) mg/dL Estim Creat Clear Calc Estimated GFR Random Glucose (60-115) mg/dL Calcium (8.4-10.2) mg/dL Total Bilirubin (0.0-1.0) mg/dL Direct Bilirubin (0.0-0.5) mg/dL AST (5-31) U/L ALT (0-31) U/L Alkaline Phosphatase (39-117) U/L Total Protein (6.5-8.0) g/dL Albumin (3.5-5.0) g/dL Urine Test NEGATIVE (NEGATIVE) Urine Opiates Screen Not Detected (Not Detect) Urine Fentanyl Screen Not Detected (Not Detect) Ur Barbiturates Screen Not Detected (Not Detect) Ur Phencyclidine Scrn Not Detected (Not Detect) Ur Amphetamines Screen Not Detected (Not Detect) U Benzodiazepines Scrn Not Detected (Not Detect) Urine Cocaine Screen Not Detected (Not Detect) U Marijuana (THC) Screen Not Detected (Not Detect) Ethyl Alcohol mg/dL COVID-19 ([facility]) Negative (Negative) COVID-19 Clin Com See Note 03/14/21 03/14/21 03/14/21 Range/Units 15:37 15:37 15:38 WBC 8.1 (4.8-10.8) X10*3/uL RBC 4.24 (4.20-5.50) X10*6/uL Hgb 12.7 (12.0-16.0) g/dl Hct 39.0 (37.0-47.0) % MCV 92.0 (80.0-98.0) fL MCH 30.0 (27.0-33.0) pg MCHC 32.6 (31.0-35.0) g/dl RDW 12.4 (11.0-16.0) % Plt Count 305 (160-400) X10*3/uL MPV 9.5 (9.4-12.3) fL Immature Gran % (Auto) 0.4 (0.0-0.4) % Neut % (Auto) 71.4 (45-73) % Lymph % (Auto) 23.5 (20-40) % [place] % (Auto) 3.8 (2-11) % Eos % (Auto) 0.7 (0-4) % Baso % (Auto) 0.2 (0-2) % Lymph # (Auto) 1.9 (1.2-4.9) X10*3/uL [place] # (Auto) 0.3 (0.1-1.2) X10*3/uL Eos # (Auto) 0.1 (0.0-0.4) X10*3/uL Baso # (Auto) 0.0 (0.0-0.2) X10*3/uL Abs Immat Gran (auto) 0.03 (0.00-0.03) X10*3/uL Absolute Neuts (auto) 5.8 (2.0-8.3) x10*3/uL Absolute Nucleated RBC 0.000 (0.0-0.012) X10*3/uL Nucleated RBC % (auto) 0.0 (0.0-0.2) /100WBC Sodium 142 (135-145) mmol/L Potassium 4.1 (3.3-5.1) mmol/L Chloride 110 H (96-108) mmol/L Carbon Dioxide 25 (22-29) mmol/L Anion Gap 11 L (12-20) BUN 12 (9-16) mg/dL Creatinine 0.89 (0.5-1.4) mg/dL Estim Creat Clear Calc 101.2 Estimated GFR > 60 Random Glucose 96 (60-115) mg/dL Calcium 9.7 (8.4-10.2) mg/dL Total Bilirubin 0.2 (0.0-1.0) mg/dL Direct Bilirubin < 0.2 (0.0-0.5) mg/dL AST 13 (5-31) U/L ALT 12 (0-31) U/L Alkaline Phosphatase 62 (39-117) U/L Total Protein 6.5 (6.5-8.0) g/dL Albumin 4.2 (3.5-5.0) g/dL Urine Test (NEGATIVE) Urine Opiates Screen (Not Detect) Urine Fentanyl Screen (Not Detect) Ur Barbiturates Screen (Not Detect) Ur Phencyclidine Scrn (Not Detect) Ur Amphetamines Screen (Not Detect) U Benzodiazepines Scrn (Not Detect) Urine Cocaine Screen (Not Detect) U Marijuana (THC) Screen (Not Detect) Ethyl Alcohol < 10 mg/dL COVID-19 ([facility]) (Negative) COVID-19 Clin Com Discharge Plan Discharge Clinical Impression: MDD (major depressive disorder), recurrent severe, without psychosis Prescriptions: No Action docusate sodium 100 mg Capsule 100 mg PO DAILY PRN (Reason: Constipation) Qty: 30 RF: 0 quetiapine 50 mg Tablet 50 mg PO BID PRN (Reason: mod-severe anxiety/ agitation) Qty: 60 RF: 0 cholecalciferol (vitamin D3) 25 mcg (1,000 unit) Tablet 50 mcg PO DAILY Qty: 30 RF: 0 thiamine mononitrate (vit B1) 100 mg Tablet 100 mg PO DAILY Qty: 30 RF: 0 fluticasone propionate 50 mcg/actuation spray,suspension 1 - 2 spray intranasal DAILY RF: 0 melatonin 3 mg tablet 3 mg PO BEDTIME PRN (Reason: sleep) Qty: 14 RF: 0 dextroamphetamine-amphetamine 10 mg tablet 10 mg PO DAILY 30 Days Qty: 30 RF: 0 dextroamphetamine-amphetamine 20 mg tablet 20 mg PO DAILY 30 Days Qty: 30 RF: 0 prazosin 5 mg capsule 10 mg PO BEDTIME Qty: 60 RF: 0 lithium carbonate 300 mg tablet extended release 600 mg PO BID Qty: 60 RF: 0 trazodone 100 mg tablet 300 mg PO BEDTIME Qty: 90 RF: 0 desvenlafaxine 100 mg tablet extended release 24 hr 100 mg PO DAILY 30 Days Qty: 30 RF: 0 lorazepam 1 mg tablet 1 mg PO TID 30 Days Qty: 90 RF: 0
[2021-03-14 15:45] LABS: MANUAL DIFF FLAG NO
[2021-03-14 15:53] LABS: Basophils Percent Auto 0.2 % (0-2); Eosinophils Absolute Auto 0.1 X10*3/uL (0.0-0.4); Eosinophils Percent Auto 0.7 % (0-4); Hemoglobin 12.7 g/dl (12.0-16.0); Imm Gran Abs Auto 0.03 X10*3/uL (0.00-0.03); Imm Gran Pct Auto 0.4 % (0.0-0.4); Lymphocytes Absolute Auto 1.9 X10*3/uL (1.2-4.9); Lymphocytes Percent Auto 23.5 % (20-40); Mean Corpuscular HGB Conc 32.6 g/dl (31.0-35.0); Mean Platelet Volume 9.5 fL (9.4-12.3); Monocytes Absolute Auto 0.3 X10*3/uL (0.1-1.2); Monocytes Percent Auto 3.8 % (2-11); Neutrophils Absolute Auto 5.8 x10*3/uL (2.0-8.3); Neutrophils Percent Auto 71.4 % (45-73); Platelet Count 305 X10*3/uL (160-400); Red Blood Count 4.24 X10*6/uL (4.20-5.50); Red Cell Distribution Width 12.4 % (11.0-16.0); White Blood Count 8.1 X10*3/uL (4.8-10.8)
[2021-03-14 15:57] LABS: UPreg QC Valid YES; Urine Pregnancy NEGATIVE (NEGATIVE)
[2021-03-14 16:00] VITALS: RESP 18
[2021-03-14 16:02] LABS: COVID-19 Test Negative (Negative)
[2021-03-14 16:03] LABS: Ethanol < 10 mg/dL
[2021-03-14 16:05] LABS: Alanine Aminotransferase 12 U/L (0-31); Albumin Level 4.2 g/dL (3.5-5.0); Alkaline Phosphatase 62 U/L (39-117); Anion Gap 11 (12-20); Aspartate Amino Transferase 13 U/L (5-31); Bilirubin Direct < 0.2 mg/dL (0.0-0.5); Bilirubin Total 0.2 mg/dL (0.0-1.0); Blood Urea Nitrogen 12 mg/dL (9-16); Calcium 9.7 mg/dL (8.4-10.2); Carbon Dioxide 25 mmol/L (22-29); Chloride 110 mmol/L (96-108); Creatinine Clr Calc Pharmacy 101.2; Estimated Glomerular Filt Rate > 60; Glucose Random 96 mg/dL (60-115); Potassium 4.1 mmol/L (3.3-5.1); Sodium 142 mmol/L (135-145); Total Protein 6.5 g/dL (6.5-8.0)
[2021-03-14 16:10] LABS: Amphetamine Screen Urine Not Detected (Not Detect); Barbiturates, Urine Not Detected (Not Detect); Benzodiazepines Screen Urine Not Detected (Not Detect); Cannabinoid Screen Urine Not Detected (Not Detect); Cocaine Screen Urine Not Detected (Not Detect); Fentanyl, urine Not Detected (Not Detect); Opiate Screen Urine Not Detected (Not Detect); Phencyclidine Screen Urine Not Detected (Not Detect)
--- NOTE | 2021-03-14 17:41 | PC.NURSE ---
1630 SMART SHEET SUBMITTED
[2021-03-14 19:45] VITALS: BP 116/71; PULSE 115; RESP 16
--- NOTE | 2021-03-14 20:11 | PC.NURSE ---
PT approached this RN at the nurse's station and stated, I know that I contracted for safety, but I want to be honest and tell you that I smuggled Ativan in here in my underwear and I just ate most of them. This RN then asked the PT how many pills she brought in with her and how many she consumed. PT stated, I had 50-80 pills and I took almost all of them, with just a few left. This RN then asked the PT where the remaining pills were at this time. PT stated that she stashed the pills in her pillow case. This RN, along with security, searched the entire room and found no pills or other hazardous objects in the room. Charge nurse was alerted of the situation. PT's vitals were found to be stable. PT reporting some dizziness but able to ambulate to stretcher. PT transferred to room 13, placed on a classroom monitor, and vitals repeated. Report given to the PT's nurse, Jose Carlos.
[2021-03-14 21:10] VITALS: BP 101/58; PULSE 85; RESP 16; O2SAT 94
--- NOTE | 2021-03-14 21:11 | MHC.CARE ---
CARE Team is aware that pt attempted suicide via Ativan that they had smuggled into the BH pod while CARE Team was determining disposition for pt. Pt referenced t/w specifically in their suicide note indicating that pt was upset when t/w attempted to explore lower levels of care for pt which contributed to this attempt. Of note, pt had not yet spoken with t/w nor had CARE Team taken over the case when pt smuggled Ativan into the BH pod. It is clear that pt is in a lot of pain and after they are medically cleared, they should go to an inpt psychiatric unit for their own safety.
[2021-03-14 22:24] LABS: Amphetamine Screen Urine Not Detected (Not Detect); Barbiturates, Urine Not Detected (Not Detect); Benzodiazepines Screen Urine Not Detected (Not Detect); Cannabinoid Screen Urine Not Detected (Not Detect); Cocaine Screen Urine Not Detected (Not Detect); Fentanyl, urine POSITIVE (Not Detect); Opiate Screen Urine Not Detected (Not Detect); Phencyclidine Screen Urine Not Detected (Not Detect)
--- NOTE | 2021-03-14 22:40 | PC.NURSE ---
PT BROUGHT OVER FROM THE POD EARLIER IN THE SHIFT AFTER MAKING CLAIMS OF ?ATIVAN OR KLONOPIN THAT SHE HID IN MY CROTCH' MEDICATION/STORY CHANGED BASED ON WHAT STAFF SHE WAS COMMUNICATING. PT WAS BROUGHT OVER TO MAIN ED UNDER DIRECTION OF LAST CHALKER WITH THIS RN. PLACED IN ROOM 13 REPORT GIVEN TO MAIN ED NURSE MARÍA RN, TAMEKA RN HAD BEEN CARING FOR PT IN THE POD/ PT PLACED ON MONITOR VS WNL, EKG DONE AT BEDSIDE, 1:1 WITHIN ARMS LENGTH, PT CHANGED OUT OF HOSPITAL PANTS, BRA AND OWN UNDERWEAR CHANGED OUT TO HOSPITAL UNDER GARMENT. DR. BOURGEOIS MADE AWARE OF SITUATION BY THIS RN IMMEDIATELY UPON PT BEING MOVED INTO MAIN ED ROOM 13 FROM [facility] AT APPROX 2015
[2021-03-14 22:41] VITALS: BP 110/61; PULSE 81; RESP 15; O2SAT 99
--- NOTE | 2021-03-14 23:50 | PC.NURSE ---
I assumed care of this pt upon their arrival to bed 13 from [facility] after pt informed staff that they took a large amount of meds - they first stated that it was Klonopin, and later they stated that they actually took Ativan. A urine drug screen prior to the pt informing staff of this was negative. A urine tox after the pt informed staff screened positive for Fentanyl. MD Bhatt aware. Pt is resting in bed 13 with 1:1 at bedside with the pt. The pt had slurred speech upon arrival to bed 13 and has since become moderately drowsy and is sleeping. Initially when sleeping their O2 sat's dropped to 89%. 4L nasal cannula was applied and O2 sat's are now up to 95% or better, RR 14 and non-labored. Sandi (the pts preferred name) has a Hx of sleep apnea and periodically has periods of apnea per 1:1 sitter, but their O2 sat's have remained WNL. NSR rate 70's on bedside monitor. Sandi informed staff, after they were informed of the positive urine tox, that they actually took only one round pill , not multiple. Miller LALA aware. Will continue to monitor.
--- NOTE | 2021-03-15 01:14 | PC.NURSE ---
PT transferred back to the pod via stretcher. PT able to transfer self from from stretcher to bed without assistance.
[2021-03-15 02:17] VITALS: PULSE 72; RESP 18; O2SAT 94
--- NOTE | 2021-03-15 02:18 | PC.NURSE ---
PT was being monitored under one to one supervision with continuous pulse ox monitoring. PT consistently satting at 93-94% on RA with episodes of apnea that dropped the O2 sat down to 90% for short periods of time. PT is sleeping in bed comfortably, no complaints of CP or SOB reported.
[2021-03-15 06:53] VITALS: BP 135/83; PULSE 93; RESP 16; TEMP 36.6; O2SAT 97
--- NOTE | 2021-03-15 08:56 | PC.NURSE ---
Addendum entered by Joyce Soria RN 03/15/21 09:01: Pending bed search Original Note: CARE team at bedside for morning evaluation
[2021-03-15 08:59] VITALS: BP 128/75; PULSE 86; RESP 18; TEMP 36.8; O2SAT 98
--- NOTE | 2021-03-15 10:57 | PC.NURSE ---
Pt given breakfast tray, sat up and tolerated well
--- NOTE | 2021-03-15 13:06 | PC.NURSE ---
Pt witnessed to be sitting by the bed, blankets wrapped around, and intermittently banging her head against the wall. RN into room to talk to pt. Pt remains flat with jeffrey of anger when asks what this RN can do to help her. CARE staff Adi made aware of pt's behavior and stated he will be at bedside to talk to pt. RN will continue to monitor.
--- NOTE | 2021-03-15 14:08 | MHC.CARE ---
POD staff contact CARE Team as pt has been observed striking their head against the wall.? CARE Team posts at the nurse?s station and observes pt via cameras.? Pt is observed striking their forehead against a desk, wall, and tv.? This act did not occur repetitively but was most often a single strike that did not initially appear to be a hard strike.? Moments would pass, and pt would strike their head against a new object.? Pt was observed exiting her room and approaching the nurse?s station.? Pt engaged with staff minimally, requesting a mask and some water.? Pt demonstrated disinterest in engaging further.? Pt was observed as having a raised red area on the center of their forehead.? Pt entered their room, laid down and appeared to remain at rest.
--- NOTE | 2021-03-15 14:18 | MHC.CARE ---
CARE Team approaches pt after they appear to have calmed.? Pt stated that the reason they are striking their head against inanimate objects is because they are ?Crawling out of my skin.?? CARE Team asks if there are any intervention techniques that have been successful in the past with soothing that feeling.? They state there is not.? Pt stated over and over again ?I just want to go home.?? CARE Team asks if they have any interest in medication to help alleviate what they are feeling.? Pt is initially resistant to taking any medication but after some time and discussion agrees saying ?Whatever you want to give me I?ll take.?? CARE Team speaks with pt?s nurse regarding medication; RN will discuss options with the providers.? Pt given warm blankets per their request.
--- NOTE | 2021-03-15 14:29 | PC.NURSE ---
Pt noted to have increased anxiety and depressed state - constant crying. REYNOLD Watson made aware as no medications are ordered. Orders received and pending verification by pharmacy. [place] level also added as pt does take lithium. RN will continue to monitor.
[2021-03-15] MEDS: LORazepam 1 MG TABLET PO ×2 (14:34→20:01)
[2021-03-15] MEDS: Thiamine HCL 100 MG TABLET PO (14:34)
[2021-03-15] MEDS: Cholecalciferol (Vitamin D3) 25 MCG TABLET 50 MCG PO (14:34)
--- NOTE | 2021-03-15 14:48 | PC.NURSE ---
As per ROXANE Joshi, pt received order for Section 12 from MD Lopez at this time.
[2021-03-15 15:00] LABS: Lithium 0.34 mmol/L (0.60-1.20)
[2021-03-15] MEDS: Lithium Carbonate ER 300 MG TABLET.ER 600 MG PO ×2 (15:10→20:01)
--- NOTE | 2021-03-15 18:46 | PC.NURSE ---
Pt received dinner tray at this time
--- NOTE | 2021-03-15 19:56 | PC.NURSE ---
pt crying, hitting her head to the wall in her room. visable on the monitor. pt was offered seroquil and refused. pt only wants her night meds specificly the ativan.
[2021-03-15] MEDS: traZODone HCL 100 MG TABLET 300 MG PO (20:01)
[2021-03-15] MEDS: Prazosin HCL 5 MG CAPSULE 10 MG PO (20:02)
[2021-03-15 20:10] VITALS: BP 114/54; PULSE 89; RESP 18; O2SAT 97
--- NOTE | 2021-03-15 23:02 | PC.NURSE ---
pt has been sleeping and no further crying, pt is sleeping no s/s of distress.
[2021-03-16 04:13] VITALS: BP 104/72; PULSE 88; RESP 17; TEMP 36.7; O2SAT 97
--- NOTE | 2021-03-16 05:32 | PC.NURSE ---
Patient slept through the night, no distress observed/reported, behavior calm, quiet, and appropriate at this time, medication compliant, appetite good, elimination intact, independent ambulation, patient's disposition per care team is section 12 inpatient bed search, will continue to monitor.
[2021-03-16] MEDS: Lithium Carbonate ER 300 MG TABLET.ER 600 MG PO ×2 (07:36→20:51)
[2021-03-16] MEDS: Thiamine HCL 100 MG TABLET PO (07:36)
[2021-03-16] MEDS: LORazepam 1 MG TABLET PO ×2 (07:36→20:51)
[2021-03-16] MEDS: Cholecalciferol (Vitamin D3) 25 MCG TABLET 50 MCG PO (10:11)
--- NOTE | 2021-03-16 12:06 | PC.NURSE ---
Nurse to nurse report given to Laura on M[facility], staff from M3 will come down at around 1400 to transport pt to unit. Pt made aware and agrees with plan. will continue to monitor.
--- NOTE | 2021-03-16 14:08 | PC.NURSE ---
pt transported via wheelchair to [facility] by nurse from the unit accompanied by security. Pt aware of plan of care. pt alert and oriented, vss, denies pain.
--- NOTE | 2021-03-16 15:30 | PC.ADMIT ---
Nursing Admission Note Lisa (preferred name is Sandi) is a 35-year-old person (they/them) who self-presented to [facility] ED stating I have zero desire to be alive. Pt has several prior suicide attempts and past history of MDD and PTSD. Pt was brought up to M[facility] in a wheelchair and was alert and oriented x4. Eye contact is avoidant, mood is angry with dysphoric affect. Pt stated I'm angrier this time which is different than the last time I was admitted here. Sometimes I want to be in a room close with other people and most of the time I just want everyone to leave me the fuck alone. Pt held a baby doll and presented as being very tearful. They stated that transitioning from being in an inpatient facility to living alone has been extremely difficult. Pt stated that they live in an apartment with a roommate who is only there maybe 10% of the time. They also have a visiting nurse who visits 3 times a week for only 10-15 minutes each time. Today is also the 6 month anniversary of their baby's which is contributing to the pt's current emotional state. They stated that they want to in order to feel close to my baby. They also stated I just don't know how to be alive. Pt stated that they wrote a suicide note and attempted to strangle themselves at home with a phone pie chef cord until they passed out. Afterwards, they self-presented to [facility] ED. Tox screen was positive for fentanyl, negative for ETOH. Pt endorses occasional marijuana use. Pt stated that upon arrival to the ED, I hid a razor blade in my hair and snuck a bag of Ativan in my underwear since I knew I wouldn't be searched in those places. I overdosed on the Ativan while I was in the ED. I'm not sure what happened but I'm angry at the fact that I'm still alive. Pt states that having the baby doll has been helpful in establishing a somewhat structured routine because they are able to change the baby's clothes throughout the day. Pt endorses SI but denies HI. Pt states they will reach out to staff if they have a plan to hurt themselves or others.
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
[2021-03-16 20:48] VITALS: BP 107/58; PULSE 86; RESP 17; TEMP 36.7; O2SAT 95
[2021-03-16 20:51] VITALS: BP 107/58; PULSE 86
[2021-03-16] MEDS: Prazosin HCL 5 MG CAPSULE 10 MG PO (20:51)
[2021-03-16] MEDS: traZODone HCL 100 MG TABLET 300 MG PO (20:51)
[2021-03-16] MEDS: Acetaminophen 325 MG TABLET 650 MG PO (20:52)
[2021-03-17] MEDS: hydrOXYzine HCL 25 MG TABLET PO (01:19)
[2021-03-17] MEDS: Melatonin 3 MG TABLET PO ×2 (01:19→20:45)
[2021-03-17 09:30] VITALS: BP 115/65; PULSE 90; RESP 18; TEMP 36.7; O2SAT 97
[2021-03-17] MEDS: Fluticasone Propionate Nasal 16 GM SPRAY NOSTRIL-B (09:34)
[2021-03-17] MEDS: Amphetamine Mixed Salts 20 MG TABLET PO (09:36)
[2021-03-17] MEDS: Cholecalciferol (Vitamin D3) 25 MCG TABLET 50 MCG PO (09:36)
[2021-03-17] MEDS: LORazepam 1 MG TABLET PO ×3 (09:36→20:45)
[2021-03-17] MEDS: Lithium Carbonate ER 300 MG TABLET.ER 600 MG PO ×2 (09:36→20:45)
[2021-03-17] MEDS: Thiamine HCL 100 MG TABLET PO (09:36)
[2021-03-17] MEDS: Nicotine 21 MG PATCH.TD24 TRANSDERMA (10:24)
--- NOTE | 2021-03-17 15:39 | P.EN_ITS ---
Event Note Date of Service: 03/17/21 Event Note: Per technical staff assistant, pt had multiple incidents of head banging in the [place] emergency department, has bilateral echymosis under eyes and bruising on forehead. Pt also disclosed attempting to strangulate self with pillow case fabric that they had torn, which staff was able to confiscate. Per staff, echymosis under eyes appeared prior to self strangulation incident. Pt reports they have a little bit of a headaches. Denies LOC, dizziness, blurry vision, or neck pain/ stiffness. ROM wnl. Pt has been hydrating and eating meals. Perrla intact. Consulted with hospitalist and will order head CT WO contrast. Pt will be changed to 1:1 safety checks.
--- NOTE | 2021-03-17 20:03 | P.PNPSI_ITS ---
Subjective Subjective Date of Service: 03/17/21 Reason For Visit: SI Interim History: pt seen butting saw operator with FRANCISCA loomis. pt reports unremitting thoughts of suicide and self harm. she reports no plan for while on the unit but she does state she has multiple plans for outside the hospital. she requests to have her ativan scheduled BID with one PRN available daily; changes order as requested. pt reports she banged her head in her room a couple of times last night but it was not observed by staff. described disturbing dreams about the stillborn baby. does not know why she came to the hospital, states she should not have come in and should just have killed herself. does n ot believe anything will be helpful for her. and FRANCISCA assure pt staff will do their best to keep her safe, and that is where we will start. per staff, denied SI, tearful. slept well, did not engage in SIB. Mental Status Exam Mental Status Exam Narrative: Appearance: sitting up on edge of bed Behavior:cooperative psychomotor: no agitation or retardation noted Speech:clear, normal rate/rhythm/volume, spontaneous Thought process:linear Thought content:no signs of psychosis Mood: not assessed Affect: constricted, normo-intense, non-labile SI: endorses SI/SIBI, denies plans in the hospital. HI:none expressed VH/AH:none expressed Delusions:none expressed Diagnostics Vital Signs (24Hr): Vital Signs - 24 hr 03/16/21 20:48 03/16/21 20:51 03/17/21 09:30 Temperature 98.1 F 98.1 F Pulse Rate 86 86 90 Respiratory Rate 17 18 Blood Pressure 107/58 L 107/58 L 115/65 Pulse Oximetry 95 97 BMI result Body Mass Index 32.4 Labs Results: 03/14/21 15:38 03/14/21 15:37 Imaging Radiology Impressions: ITS Impressions Head CT 03/17/21 17:01 IMPRESSION: No CT evidence of intracranial bleed or hemorrhage. Medications Medications Current Medications Acetaminophen (Acetaminophen 325 Mg Tablet) 650 mg PO Q6H PRN PRN Reason: Headache/Pain Mild Scale (1-3) Last Admin: 03/16/21 20:52 Dose: 650 mg Documented by: Al Hydroxide/Mg Hydroxide (Magnesium Hydrox/Alum Hydrox 30 Ml Oral.Susp) 30 ml PO Q6H PRN PRN Reason: Heartburn/Nausea Amphetamine/Dextroamphetamine (Amphetamine Mixed Salts 20 Mg Tablet) 20 mg PO DAILY [facility] Last Admin: 03/17/21 09:36 Dose: 20 mg Documented by: Docusate Sodium (Docusate Sodium 100 Mg Capsule) 100 mg PO DAILY PRN PRN Reason: Constipation Fluticasone Propionate (Fluticasone Propionate Nasal 16 Gm [place]) 1 - 2 spray NOSTRIL-B DAILY [facility] Last Admin: 03/17/21 09:34 Dose: 1 spray Documented by: Hydroxyzine HCl (Hydroxyzine Hcl 25 Mg Tablet) 25 mg PO BEDTIME PRN PRN Reason: Anxiety Last Admin: 03/17/21 01:19 Dose: 25 mg Documented by: [place] Carbonate ([place] Carbonate Er 300 Mg Tablet.Er) 600 mg PO BID [facility] Last Admin: 03/17/21 09:36 Dose: 600 mg Documented by: Lorazepam (Lorazepam 1 Mg Tablet) 1 mg PO BID [facility] Last Admin: 03/17/21 09:36 Dose: 1 mg Documented by: Lorazepam (Lorazepam 1 Mg Tablet) 1 mg PO BID PRN PRN Reason: Anxiety Last Admin: 03/17/21 16:20 Dose: 1 mg Documented by: Magnesium Hydroxide (Milk Of Magnesia 30 Ml Oral.Susp) 30 ml PO DAILY PRN PRN Reason: Constipation Melatonin (Melatonin 3 Mg Tablet) 3 mg PO BEDTIME PRN PRN Reason: sleep Last Admin: 03/17/21 01:19 Dose: 3 mg Documented by: Nicotine (Nicotine 21 Mg Patch.Td24) 21 mg TRANSDERMA DAILY [facility] Last Admin: 03/17/21 10:24 Dose: 21 mg Documented by: Patient Own Medication ( Desvenlafaxine Er 100 Mg) 1 each PO DAILY [facility] Last Admin: 03/17/21 09:35 Dose: 1 each Documented by: Prazosin HCl (Prazosin Hcl 5 Mg Capsule) 10 mg PO BEDTIME [facility]; Protocol Last Admin: 03/16/21 20:51 Dose: 10 mg Documented by: Quetiapine Fumarate (Quetiapine Fumarate 50 Mg Tablet) 50 mg PO BID PRN PRN Reason: mod-severe anxiety/ agitation Thiamine HCl (Thiamine Hcl 100 Mg Tablet) 100 mg PO DAILY [facility] Last Admin: 03/17/21 09:36 Dose: 100 mg Documented by: Trazodone HCl (Trazodone Hcl 100 Mg Tablet) 300 mg PO BEDTIME [facility] Last Admin: 03/16/21 20:51 Dose: 300 mg Documented by: Trazodone HCl (Trazodone Hcl 50 Mg Tablet) 50 mg PO BEDTIME PRN PRN Reason: Insomnia Vitamin D (Cholecalciferol (Vitamin D3) 25 Mcg Tablet) 50 mcg PO DAILY [facility] Last Admin: 03/17/21 09:36 Dose: 50 mcg Documented by: Allergies Allergies Allergy/AdvReac Type Severity Reaction Status Date / Time Sulfa (Sulfonamide Allergy Unknown HIVES Verified 03/15/21 14:13 Antibiotics) [SULFA (SULFONAMIDE ANTIBIOTICS)] sulfamethoxazole Allergy Unknown HIVES Verified 03/15/21 14:13 [From BACTRIM] trimethoprim [From BACTRIM] Allergy Unknown HIVES Verified 03/15/21 14:13 Assessment & Plan Assessment & Plan (1) PTSD (post-traumatic stress disorder): Status: Acute Code(s): F43.10 - Post-traumatic stress disorder, unspecified (2) MDD (major depressive disorder), recurrent severe, without psychosis: Status: Acute Code(s): F33.2 - Major depressive disorder, recurrent severe without psychotic features Assessment and Plan: continue outpt meds. admitted to M3 for safety and containment. Q5 min checks for now; may need to escalate to 1:1 depending on pt's behavior. 03/17 ativan dosing changed from 1 TID to 1 BID and 1 PRN daily, per pt request. observe for stability, keep safe. I spent minutes with the patient and/or on the patient floor today, greater than?50% of which was spent counseling/coordinating care. Reason for contiued inpatient stay Substantial Risk for: harm to self
[2021-03-17 20:30] VITALS: BP 125/67; PULSE 90; TEMP 36.7; O2SAT 93
[2021-03-17] MEDS: traZODone HCL 100 MG TABLET 300 MG PO (20:45)
[2021-03-17 20:46] VITALS: BP 125/67; PULSE 90
[2021-03-17] MEDS: Prazosin HCL 5 MG CAPSULE 10 MG PO (20:46)
[2021-03-17] MEDS: Acetaminophen 325 MG TABLET 650 MG PO (23:12)
[2021-03-18] MEDS: Fluticasone Propionate Nasal 16 GM SPRAY NOSTRIL-B (08:28)
[2021-03-18] MEDS: Nicotine 21 MG PATCH.TD24 TRANSDERMA (08:30)
[2021-03-18] MEDS: Amphetamine Mixed Salts 20 MG TABLET PO (08:31)
[2021-03-18] MEDS: Lithium Carbonate ER 300 MG TABLET.ER 600 MG PO ×2 (08:31→21:01)
[2021-03-18] MEDS: Cholecalciferol (Vitamin D3) 25 MCG TABLET 50 MCG PO (08:31)
[2021-03-18] MEDS: Thiamine HCL 100 MG TABLET PO (08:32)
[2021-03-18] MEDS: LORazepam 1 MG TABLET PO ×3 (08:32→21:00)
[2021-03-18 10:00] VITALS: BP 119/66; PULSE 92; RESP 20; TEMP 37; O2SAT 97
[2021-03-18] MEDS: Acetaminophen 325 MG TABLET 650 MG PO ×2 (14:16→21:01)
--- NOTE | 2021-03-18 15:30 | P.PNPSI_ITS ---
Subjective Subjective Date of Service: 03/18/21 Reason For Visit: SI Interim History: long convo held with pt and 1:1 staff. discussed pt's art, living situation, pets at home, susy axlotl. also discuss at length various medication options, such as adding SSRI, wellbutrin, anti-psychotic, ECT, ketamine, lithium, thyroid hormone. agree to discuss further tomorrow. pt presents as hopeless with continued SI, no change from yesterday. requests to work with lisandro if possible. per staff, on 1:1, isolative. med-compliant. anx 9 dep 10. denied SI/HI. endorsed head-banging and putting sheets around her neck in the shower and was put on 1:1 as a result. neurochecks and CT scan WNL. not attending groups. Mental Status Exam Mental Status Exam Narrative: Appearance: lying in bed Behavior:cooperative psychomotor: no agitation or retardation noted Speech:clear, normal rate/rhythm/volume, spontaneous Thought process:linear Thought content:no signs of psychosis Mood: depressed Affect: constricted, normo-intense, non-labile SI: endorses SI/SIBI. HI:none expressed VH/AH:none expressed Delusions:none expressed Diagnostics Vital Signs (24Hr): Vital Signs - 24 hr 03/17/21 20:30 03/17/21 20:46 Temperature 98.1 F Pulse Rate 90 90 Blood Pressure 125/67 125/67 Pulse Oximetry 93 BMI result Body Mass Index 32.4 Labs Results: 03/14/21 15:38 03/14/21 15:37 Imaging Radiology Impressions: ITS Impressions Head CT 03/17/21 17:01 IMPRESSION: No CT evidence of intracranial bleed or hemorrhage. Medications Medications Current Medications Acetaminophen (Acetaminophen 325 Mg Tablet) 650 mg PO Q6H PRN PRN Reason: Headache/Pain Mild Scale (1-3) Last Admin: 03/18/21 14:16 Dose: 650 mg Documented by: Al Hydroxide/Mg Hydroxide (Magnesium Hydrox/Alum Hydrox 30 Ml Oral.Susp) 30 ml PO Q6H PRN PRN Reason: Heartburn/Nausea Amphetamine/Dextroamphetamine (Amphetamine Mixed Salts 20 Mg Tablet) 20 mg PO DAILY [facility] Last Admin: 03/18/21 08:31 Dose: 20 mg Documented by: Docusate Sodium (Docusate Sodium 100 Mg Capsule) 100 mg PO DAILY PRN PRN Reason: Constipation Fluticasone Propionate (Fluticasone Propionate Nasal 16 Gm [place]) 1 - 2 spray NOSTRIL-B DAILY [facility] Last Admin: 03/18/21 08:28 Dose: 1 spray Documented by: Hydroxyzine HCl (Hydroxyzine Hcl 25 Mg Tablet) 25 mg PO BEDTIME PRN PRN Reason: Anxiety Last Admin: 03/17/21 01:19 Dose: 25 mg Documented by: [place] Carbonate ([place] Carbonate Er 300 Mg Tablet.Er) 600 mg PO BID [facility] Last Admin: 03/18/21 08:31 Dose: 600 mg Documented by: Lorazepam (Lorazepam 1 Mg Tablet) 1 mg PO BID [facility] Last Admin: 03/18/21 08:32 Dose: 1 mg Documented by: Lorazepam (Lorazepam 1 Mg Tablet) 1 mg PO BID PRN PRN Reason: Anxiety Last Admin: 03/18/21 14:19 Dose: 1 mg Documented by: Magnesium Hydroxide (Milk Of Magnesia 30 Ml Oral.Susp) 30 ml PO DAILY PRN PRN Reason: Constipation Melatonin (Melatonin 3 Mg Tablet) 6 mg PO BEDTIME PRN PRN Reason: sleep Nicotine (Nicotine 21 Mg Patch.Td24) 21 mg TRANSDERMA DAILY [facility] Last Admin: 03/18/21 08:30 Dose: 21 mg Documented by: Patient Own Medication ( Desvenlafaxine Er 100 Mg) 1 each PO DAILY [facility] Last Admin: 03/18/21 08:32 Dose: 1 each Documented by: Prazosin HCl (Prazosin Hcl 5 Mg Capsule) 10 mg PO BEDTIME [facility]; Protocol Last Admin: 03/17/21 20:46 Dose: 10 mg Documented by: Quetiapine Fumarate (Quetiapine Fumarate 50 Mg Tablet) 50 mg PO BID PRN PRN Reason: mod-severe anxiety/ agitation Thiamine HCl (Thiamine Hcl 100 Mg Tablet) 100 mg PO DAILY [facility] Last Admin: 03/18/21 08:32 Dose: 100 mg Documented by: Trazodone HCl (Trazodone Hcl 100 Mg Tablet) 300 mg PO BEDTIME [facility] Last Admin: 03/17/21 20:45 Dose: 300 mg Documented by: Trazodone HCl (Trazodone Hcl 50 Mg Tablet) 50 mg PO BEDTIME PRN PRN Reason: Insomnia Vitamin D (Cholecalciferol (Vitamin D3) 25 Mcg Tablet) 50 mcg PO DAILY [facility] Last Admin: 03/18/21 08:31 Dose: 50 mcg Documented by: Allergies Allergies Allergy/AdvReac Type Severity Reaction Status Date / Time Sulfa (Sulfonamide Allergy Unknown HIVES Verified 03/15/21 14:13 Antibiotics) [SULFA (SULFONAMIDE ANTIBIOTICS)] sulfamethoxazole Allergy Unknown HIVES Verified 03/15/21 14:13 [From BACTRIM] trimethoprim [From BACTRIM] Allergy Unknown HIVES Verified 03/15/21 14:13 Assessment & Plan Assessment & Plan (1) PTSD (post-traumatic stress disorder): Status: Acute Code(s): F43.10 - Post-traumatic stress disorder, unspecified (2) MDD (major depressive disorder), recurrent severe, without psychosis: Status: Acute Code(s): F33.2 - Major depressive disorder, recurrent severe without psychotic features Assessment and Plan: continue outpt meds. admitted to M3 for safety and containment. 1:1 after head banging and reportedly wrapping sheets around neck in shower. 03/17 ativan dosing changed from 1 TID to 1 BID and 1 PRN daily, per pt request. med changes discussed at length 03/18; will re-visit 03/19. observe for stability, keep safe. I spent minutes with the patient and/or on the patient floor today, grea ter than?50% of which was spent counseling/coordinating care. Reason for contiued inpatient stay Substantial Risk for: harm to self
[2021-03-18] MEDS: traZODone HCL 100 MG TABLET 300 MG PO (21:00)
[2021-03-18 21:01] VITALS: BP 118/76; PULSE 85
[2021-03-18] MEDS: Melatonin 3 MG TABLET 6 MG PO (21:01)
[2021-03-18] MEDS: Prazosin HCL 5 MG CAPSULE 10 MG PO (21:01)
[2021-03-18 21:04] VITALS: TEMP 36.4; O2SAT 96
[2021-03-19] MEDS: traZODone HCL 50 MG TABLET PO (00:26)
[2021-03-19] MEDS: hydrOXYzine HCL 25 MG TABLET PO (00:26)
[2021-03-19] MEDS: LORazepam 1 MG TABLET PO ×4 (00:26→21:58)
[2021-03-19] MEDS: Lithium Carbonate ER 300 MG TABLET.ER 600 MG PO ×2 (08:46→21:58)
[2021-03-19] MEDS: Cholecalciferol (Vitamin D3) 25 MCG TABLET 50 MCG PO (08:46)
[2021-03-19] MEDS: Amphetamine Mixed Salts 20 MG TABLET PO (08:46)
[2021-03-19] MEDS: Thiamine HCL 100 MG TABLET PO (08:47)
[2021-03-19] MEDS: Fluticasone Propionate Nasal 16 GM SPRAY NOSTRIL-B (08:53)
--- NOTE | 2021-03-19 16:07 | P.PNPSI_ITS ---
Subjective Subjective Date of Service: 03/19/21 Reason For Visit: SI Interim History: pt reports no change in her symptoms. remains with constant SI/SIBI, states the only thing preventing her from banging her head into the wall is that someone might put their hands on her if she does. bela ESPINOSA present for the interview. discussion had around adding SSRI versus thyroid hormone. leaning toward SSRI. pt mentions she has had genetic testing for anti- depressants done with outpt provider. will await any collateral info prior to making a decision on adding SSRI. per staff, spending time on art project. difficult day yesterday and today. poor eye contact, blunted. had a good call with therapist yesterday. had PRN tyl and melatonin. up at [facility] for hydrox, traz, and ativan. poor sleep after. Mental Status Exam Mental Status Exam Narrative: Appearance: in milieu doing art project Behavior:cooperative psychomotor: no agitation or retardation noted Speech:clear, normal rate/rhythm/volume, spontaneous Thought process:linear Thought content:no signs of psychosis Mood: depressed Affect: constricted, hypo-intense, non-labile SI: endorses SI/SIBI. HI:none expressed VH/AH:none expressed Delusions:none expressed Diagnostics Vital Signs (24Hr): Vital Signs - 24 hr 03/18/21 21:01 03/18/21 21:04 Temperature 97.6 F Pulse Rate 85 Blood Pressure 118/76 Pulse Oximetry 96 BMI result Body Mass Index 32.4 Labs Results: 03/14/21 15:38 03/14/21 15:37 Imaging Radiology Impressions: ITS Impressions Head CT 03/17/21 17:01 IMPRESSION: No CT evidence of intracranial bleed or hemorrhage. Medications Medications Current Medications Acetaminophen (Acetaminophen 325 Mg Tablet) 650 mg PO Q6H PRN PRN Reason: Headache/Pain Mild Scale (1-3) Last Admin: 03/18/21 21:01 Dose: 650 mg Documented by: Al Hydroxide/Mg Hydroxide (Magnesium Hydrox/Alum Hydrox 30 Ml Oral.Susp) 30 ml PO Q6H PRN PRN Reason: Heartburn/Nausea Amphetamine/Dextroamphetamine (Amphetamine Mixed Salts 20 Mg Tablet) 20 mg PO DAILY [facility] Last Admin: 03/19/21 08:46 Dose: 20 mg Documented by: Docusate Sodium (Docusate Sodium 100 Mg Capsule) 100 mg PO DAILY PRN PRN Reason: Constipation Fluticasone Propionate (Fluticasone Propionate Nasal 16 Gm [place]) 1 - 2 spray NOSTRIL-B DAILY [facility] BEDS AT [facility] Last Admin: 03/19/21 08:53 Dose: 1 spray Documented by: Hydroxyzine HCl (Hydroxyzine Hcl 25 Mg Tablet) 25 mg PO BEDTIME PRN PRN Reason: Anxiety Last Admin: 03/19/21 00:26 Dose: 25 mg Documented by: [place] Carbonate ([place] Carbonate Er 300 Mg Tablet.Er) 600 mg PO BID [facility]S [facility] 234 BEDS AT THE [facility] Last Admin: 03/19/21 08:46 Dose: 600 mg Documented by: Lorazepam (Lorazepam 1 Mg Tablet) 1 mg PO BID [facility]S [facility]CLUDE 234 BEDS AT THE [facility] Last Admin: 03/19/21 08:46 Dose: 1 mg Documented by: Lorazepam (Lorazepam 1 Mg Tablet) 1 mg PO BID PRN PRN Reason: Anxiety Last Admin: 03/19/21 00:26 Dose: 1 mg Documented by: Magnesium Hydroxide (Milk Of Magnesia 30 Ml Oral.Susp) 30 ml PO DAILY PRN PRN Reason: Constipation Melatonin (Melatonin 3 Mg Tablet) 6 mg PO BEDTIME PRN PRN Reason: sleep Last Admin: 03/18/21 21:01 Dose: 6 mg Documented by: Nicotine (Nicotine 21 Mg Patch.Td24) 21 mg TRANSDERMA DAILY [facility] 234 BEDS AT [facility] Last Admin: 03/19/21 14:28 Dose: Not Given Documented by: Patient Own Medication ( Desvenlafaxine Er 100 Mg) 1 each PO DAILY [facility] 234 BEDS AT THE [facility] Last Admin: 03/19/21 08:53 Dose: 1 each Documented by: Prazosin HCl (Prazosin Hcl 5 Mg Capsule) 10 mg PO BEDTIME [facility]S [facility]CLUDE 234 BEDS AT THE [facility]; Protocol Last Admin: 03/18/21 21:01 Dose: 10 mg Documented by: Quetiapine Fumarate (Quetiapine Fumarate 50 Mg Tablet) 50 mg PO BID PRN PRN Reason: mod-severe anxiety/ agitation Thiamine HCl (Thiamine Hcl 100 Mg Tablet) 100 mg PO DAILY [facility] 234 BEDS AT [facility] Last Admin: 03/19/21 08:47 Dose: 100 mg Documented by: Trazodone HCl (Trazodone Hcl 100 Mg Tablet) 300 mg PO BEDTIME COUNTS INCLUDE 234 BEDS AT THE [facility] Last Admin: 03/18/21 21:00 Dose: 300 mg Documented by: Trazodone HCl (Trazodone Hcl 50 Mg Tablet) 50 mg PO BEDTIME PRN PRN Reason: Insomnia Last Admin: 03/19/21 00:26 Dose: 50 mg Documented by: Vitamin D (Cholecalciferol (Vitamin D3) 25 Mcg Tablet) 50 mcg PO DAILY [facility] Last Admin: 03/19/21 08:46 Dose: 50 mcg Documented by: Allergies Allergies Allergy/AdvReac Type Severity Reaction Status Date / Time Sulfa (Sulfonamide Allergy Unknown HIVES Verified 03/15/21 14:13 Antibiotics) [SULFA (SULFONAMIDE ANTIBIOTICS)] sulfamethoxazole Allergy Unknown HIVES Verified 03/15/21 14:13 [From BACTRIM] trimethoprim [From BACTRIM] Allergy Unknown HIVES Verified 03/15/21 14:13 Assessment & Plan Assessment & Plan (1) PTSD (post-traumatic stress disorder): Status: Acute Code(s): F43.10 - Post-traumatic stress disorder, unspecified (2) MDD (major depressive disorder), recurrent severe, without psychosis: Status: Acute Code(s): F33.2 - Major depressive disorder, recurrent severe without psychotic features Assessment and Plan: continue outpt meds. admitted to M3 for safety and containment. 1:1 after head banging and reportedly wrapping sheets around neck in shower. 03/17 ativan dosing changed from 1 TID to 1 BID and 1 PRN daily, per pt request. med changes discussed at length 03/18, 03/19. trying to obtain genetic testing report from medical records. decision re anti-depressant pending. observe for stability, keep safe. I spent minutes with the patient and/or on the patient floor today, great er than?50% of which was spent counseling/coordinating care. Reason for contiued inpatient stay Substantial Risk for: harm to self, inability to function and rapid decompensation
[2021-03-19] MEDS: Melatonin 3 MG TABLET 6 MG PO (21:57)
[2021-03-19 21:58] VITALS: BP 118/66; PULSE 82
[2021-03-19] MEDS: Prazosin HCL 5 MG CAPSULE 10 MG PO (21:58)
[2021-03-19] MEDS: Acetaminophen 325 MG TABLET 650 MG PO (21:58)
[2021-03-19] MEDS: traZODone HCL 100 MG TABLET 300 MG PO (21:58)
[2021-03-19 22:07] VITALS: BP 118/66; PULSE 82; TEMP 36.9; O2SAT 95
[2021-03-20] MEDS: LORazepam 1 MG TABLET PO ×4 (06:40→20:10)
[2021-03-20 07:56] VITALS: BP 127/62; PULSE 84; RESP 16; TEMP 36.7; O2SAT 97
[2021-03-20] MEDS: Fluticasone Propionate Nasal 16 GM SPRAY NOSTRIL-B (08:00)
[2021-03-20] MEDS: Cholecalciferol (Vitamin D3) 25 MCG TABLET 50 MCG PO (08:00)
[2021-03-20] MEDS: Lithium Carbonate ER 300 MG TABLET.ER 600 MG PO ×2 (08:01→20:11)
[2021-03-20] MEDS: Thiamine HCL 100 MG TABLET PO (08:01)
[2021-03-20] MEDS: Amphetamine Mixed Salts 20 MG TABLET PO (08:01)
[2021-03-20] MEDS: Sertraline HCL 50 MG TABLET PO (11:11)
--- NOTE | 2021-03-20 14:18 | HO.PSYCHPN ---
Subjective Subjective Date of Service: 03/20/21 Reason For Visit: SI Interim History: pt seen in room with FRANCISCA loomis. pt declines offer of transfer to M5 to work with nidhi, who was her preferred metal buffer last time she was admitted. states she would prefer to remain on M3 as she is not stable enough for transfer. asks to continue working either with this keno writer / runner or griffin mcmahon. informed the genetic testing will not be available for some days and so agrees to go ahead and start zoloft 50 mg daily. asks to be able to shower with shower door closed. informed pristiq will be ordered from [facility] pharmacy for her. per staff, anx 9, dep 10. urges to bang head. went to bed at 1030, slept through the night. Mental Status Exam Mental Status Exam Narrative: Appearance: in milieu doing art project Behavior:cooperative psychomotor: no agitation or retardation noted Speech:clear, normal rate/rhythm/volume, spontaneous Thought process:linear Thought content:no signs of psychosis Mood: depressed Affect: constricted, hypo-intense, non-labile SI: endorses SI/SIBI. HI:none expressed VH/AH:none expressed Delusions:none expressed Diagnostics Vital Signs (24Hr): Vital Signs - 24 hr 03/19/21 21:58 03/19/21 22:07 03/20/21 07:56 Temperature 98.5 F 98.1 F Pulse Rate 82 82 84 Respiratory Rate 16 Blood Pressure 118/66 118/66 127/62 Pulse Oximetry 95 97 BMI result Body Mass Index 32.4 Labs Results: 03/14/21 15:38 03/14/21 15:37 Imaging Radiology Impressions: ITS Impressions Head CT 03/17/21 17:01 IMPRESSION: No CT evidence of intracranial bleed or hemorrhage. Medications Medications Current Medications Acetaminophen (Acetaminophen 325 Mg Tablet) 650 mg PO Q6H PRN PRN Reason: Headache/Pain Mild Scale (1-3) Last Admin: 03/19/21 21:58 Dose: 650 mg Documented by: Al Hydroxide/Mg Hydroxide (Magnesium Hydrox/Alum Hydrox 30 Ml Oral.Susp) 30 ml PO Q6H PRN PRN Reason: Heartburn/Nausea Amphetamine/Dextroamphetamine (Amphetamine Mixed Salts 20 Mg Tablet) 20 mg PO DAILY [facility] Last Admin: 03/20/21 08:01 Dose: 20 mg Documented by: Docusate Sodium (Docusate Sodium 100 Mg Capsule) 100 mg PO DAILY PRN PRN Reason: Constipation Fluticasone Propionate (Fluticasone Propionate Nasal 16 Gm [place]) 1 - 2 spray NOSTRIL-B DAILY [facility] Last Admin: 03/20/21 08:00 Dose: 1 spray Documented by: Hydroxyzine HCl (Hydroxyzine Hcl 25 Mg Tablet) 25 mg PO BEDTIME PRN PRN Reason: Anxiety Last Admin: 03/19/21 00:26 Dose: 25 mg Documented by: [place] Carbonate ([place] Carbonate Er 300 Mg Tablet.Er) 600 mg PO BID [facility] Last Admin: 03/20/21 08:01 Dose: 600 mg Documented by: Lorazepam (Lorazepam 1 Mg Tablet) 1 mg PO BID [facility] Last Admin: 03/20/21 08:01 Dose: 1 mg Documented by: Lorazepam (Lorazepam 1 Mg Tablet) 1 mg PO BID PRN PRN Reason: Anxiety Last Admin: 03/20/21 06:40 Dose: 1 mg Documented by: Magnesium Hydroxide (Milk Of Magnesia 30 Ml Oral.Susp) 30 ml PO DAILY PRN PRN Reason: Constipation Melatonin (Melatonin 3 Mg Tablet) 6 mg PO BEDTIME PRN PRN Reason: sleep Last Admin: 03/19/21 21:57 Dose: 6 mg Documented by: Nicotine (Nicotine 21 Mg Patch.Td24) 21 mg TRANSDERMA DAILY [facility] Last Admin: 03/20/21 08:06 Dose: Not Given Documented by: Patient Own Medication ( Desvenlafaxine Er 100 Mg) 1 each PO DAILY [facility] Last Admin: 03/20/21 08:00 Dose: 1 each Documented by: Prazosin HCl (Prazosin Hcl 5 Mg Capsule) 10 mg PO BEDTIME [facility]; Protocol Last Admin: 03/19/21 21:58 Dose: 10 mg Documented by: Quetiapine Fumarate (Quetiapine Fumarate 50 Mg Tablet) 50 mg PO BID PRN PRN Reason: mod-severe anxiety/ agitation Sertraline HCl (Sertraline Hcl 50 Mg Tablet) 50 mg PO DAILY [facility] Last Admin: 03/20/21 11:11 Dose: 50 mg Documented by: Thiamine HCl (Thiamine Hcl 100 Mg Tablet) 100 mg PO DAILY [facility] Last Admin: 03/20/21 08:01 Dose: 100 mg Documented by: Trazodone HCl (Trazodone Hcl 100 Mg Tablet) 300 mg PO BEDTIME [facility] Last Admin: 03/19/21 21:58 Dose: 300 mg Documented by: Trazodone HCl (Trazodone Hcl 50 Mg Tablet) 50 mg PO BEDTIME PRN PRN Reason: Insomnia Last Admin: 03/19/21 00:26 Dose: 50 mg Documented by: Vitamin D (Cholecalciferol (Vitamin D3) 25 Mcg Tablet) 50 mcg PO DAILY [facility] Last Admin: 03/20/21 08:00 Dose: 50 mcg Documented by: Allergies Allergies Allergy/AdvReac Type Severity Reaction Status Date / Time Sulfa (Sulfonamide Allergy Unknown HIVES Verified 03/15/21 14:13 Antibiotics) [SULFA (SULFONAMIDE ANTIBIOTICS)] sulfamethoxazole Allergy Unknown HIVES Verified 03/15/21 14:13 [From BACTRIM] trimethoprim [From BACTRIM] Allergy Unknown HIVES Verified 03/15/21 14:13 Assessment & Plan Assessment & Plan (1) PTSD (post-traumatic stress disorder): Status: Acute Code(s): F43.10 - Post-traumatic stress disorder, unspecified (2) MDD (major depressive disorder), recurrent severe, without psychosis: Status: Acute Code(s): F33.2 - Major depressive disorder, recurrent severe without psychotic features Assessment and Plan: continue outpt meds. admitted to M3 for safety and containment. 1:1 after head banging and reportedly wrapping sheets around neck in shower. 03/17 ativan dosing changed from 1 TID to 1 BID and 1 PRN daily, per pt request. med changes discussed at length 03/18, 03/19. trying to obtain genetic testing report from medical records. zoloft 50 mg daily in addition to pristiq as of 03/20. observe for stability, keep safe. I spent minutes with the patient and/or on the patient floor today, greater than?50% of which was spent counseling/coordinating care. Reason for contiued inpatient stay Substantial Risk for: harm to self, inability to function and rapid decompensation
[2021-03-20 20:10] VITALS: BP 122/78; PULSE 89; RESP 20; TEMP 36.6; O2SAT 98
[2021-03-20] MEDS: traZODone HCL 100 MG TABLET 300 MG PO (20:11)
[2021-03-20] MEDS: Prazosin HCL 5 MG CAPSULE 10 MG PO (20:11)
[2021-03-20] MEDS: Acetaminophen 325 MG TABLET 650 MG PO (20:16)
[2021-03-20] MEDS: Melatonin 3 MG TABLET 6 MG PO (20:16)
[2021-03-20] MEDS: LORazepam 2 MG/ML VIAL 1 MG IM (21:28)
--- NOTE | 2021-03-21 01:45 | PC.NURSE ---
At 2100, patient reported extreme anxiety and requested an IM injection of Ativan. Order was given and patient received shot in left deltoid at 2127.
[2021-03-21] MEDS: traZODone HCL 50 MG TABLET PO (04:14)
[2021-03-21] MEDS: hydrOXYzine HCL 25 MG TABLET PO ×2 (04:14→21:33)
[2021-03-21] MEDS: Thiamine HCL 100 MG TABLET PO (09:00)
[2021-03-21] MEDS: Sertraline HCL 50 MG TABLET PO (09:00)
[2021-03-21] MEDS: Amphetamine Mixed Salts 20 MG TABLET PO (09:00)
[2021-03-21] MEDS: LORazepam 1 MG TABLET PO ×3 (09:00→21:33)
[2021-03-21] MEDS: Lithium Carbonate ER 300 MG TABLET.ER 600 MG PO ×2 (09:00→21:33)
[2021-03-21] MEDS: Fluticasone Propionate Nasal 16 GM SPRAY NOSTRIL-B (09:00)
[2021-03-21] MEDS: Cholecalciferol (Vitamin D3) 25 MCG TABLET 50 MCG PO (09:00)
[2021-03-21 09:03] VITALS: BP 117/65; PULSE 79; RESP 17; TEMP 36.2; O2SAT 97
--- NOTE | 2021-03-21 11:32 | HO.PSYCHPN ---
Subjective Subjective Date of Service: 03/21/21 Reason For Visit: SI Subjective Notes: Conditional Voluntary Interim History: The nursing staff reported that the patient has self-harmed herself last night by headbanging, she asked for Ativan IM. On interview, she was dysphoric, with poor eye contact. Zoloft was recently started. Mental Status Exam Mental Status Exam Patient Appearance: Well Grooomed Patient Orientation: Person Level of Consciousness: Awake Patient Behavior: Poor Eye Contact Mood Description: Withdrawn and Depressed Affect Description: Constricted Patient Cognition Impaired: No Ability to Follow Directions: Fair Speech Pattern: Clear Hallucinations: None Delusions: Not Present Thought Process: Linear Thought Content: positive for Circumstantial Judgement: Poor Diagnostics Vital Signs (24Hr): Vital Signs - 24 hr 03/20/21 20:10 03/21/21 09:03 Temperature 98 F 97.2 F Pulse Rate 89 79 Respiratory Rate 20 17 Blood Pressure 122/78 117/65 Pulse Oximetry 98 97 BMI result Body Mass Index 32.4 Labs Results: 03/14/21 15:38 03/14/21 15:37 Imaging Radiology Impressions: ITS Impressions Head CT 03/17/21 17:01 IMPRESSION: No CT evidence of intracranial bleed or hemorrhage. Medications Medications Current Medications Acetaminophen (Acetaminophen 325 Mg Tablet) 650 mg PO Q6H PRN PRN Reason: Headache/Pain Mild Scale (1-3) Last Admin: 03/20/21 20:16 Dose: 650 mg Documented by: Al Hydroxide/Mg Hydroxide (Magnesium Hydrox/Alum Hydrox 30 Ml Oral.Susp) 30 ml PO Q6H PRN PRN Reason: Heartburn/Nausea Amphetamine/Dextroamphetamine (Amphetamine Mixed Salts 20 Mg Tablet) 20 mg PO DAILY [facility] Last Admin: 03/21/21 09:00 Dose: 20 mg Documented by: Docusate Sodium (Docusate Sodium 100 Mg Capsule) 100 mg PO DAILY PRN PRN Reason: Constipation Fluticasone Propionate (Fluticasone Propionate Nasal 16 Gm [place]) 1 - 2 spray NOSTRIL-B DAILY [facility] Last Admin: 03/21/21 09:00 Dose: 1 spray Documented by: Hydroxyzine HCl (Hydroxyzine Hcl 25 Mg Tablet) 25 mg PO BEDTIME PRN PRN Reason: Anxiety Last Admin: 03/21/21 04:14 Dose: 25 mg Documented by: [place] Carbonate ([place] Carbonate Er 300 Mg Tablet.Er) 600 mg PO BID [facility] Last Admin: 03/21/21 09:00 Dose: 600 mg Documented by: Lorazepam (Lorazepam 1 Mg Tablet) 1 mg PO BID [facility] Last Admin: 03/21/21 09:00 Dose: 1 mg Documented by: Lorazepam (Lorazepam 1 Mg Tablet) 1 mg PO BID PRN PRN Reason: Anxiety Last Admin: 03/20/21 16:20 Dose: 1 mg Documented by: Magnesium Hydroxide (Milk Of Magnesia 30 Ml Oral.Susp) 30 ml PO DAILY PRN PRN Reason: Constipation Melatonin (Melatonin 3 Mg Tablet) 6 mg PO BEDTIME PRN PRN Reason: sleep Last Admin: 03/20/21 20:16 Dose: 6 mg Documented by: Nicotine (Nicotine 21 Mg Patch.Td24) 21 mg TRANSDERMA DAILY [facility] Last Admin: 03/21/21 09:03 Dose: Not Given Documented by: Patient Own Medication ( Desvenlafaxine Er 100 Mg) 1 each PO DAILY [facility] Last Admin: 03/21/21 09:00 Dose: 1 each Documented by: Prazosin HCl (Prazosin Hcl 5 Mg Capsule) 10 mg PO BEDTIME [facility]; Protocol Last Admin: 03/20/21 20:11 Dose: 10 mg Documented by: Quetiapine Fumarate (Quetiapine Fumarate 50 Mg Tablet) 50 mg PO BID PRN PRN Reason: mod-severe anxiety/ agitation Sertraline HCl (Sertraline Hcl 50 Mg Tablet) 50 mg PO DAILY [facility] Last Admin: 03/21/21 09:00 Dose: 50 mg Documented by: Thiamine HCl (Thiamine Hcl 100 Mg Tablet) 100 mg PO DAILY [facility] Last Admin: 03/21/21 09:00 Dose: 100 mg Documented by: Trazodone HCl (Trazodone Hcl 100 Mg Tablet) 300 mg PO BEDTIME [facility] Last Admin: 03/20/21 20:11 Dose: 300 mg Documented by: Trazodone HCl (Trazodone Hcl 50 Mg Tablet) 50 mg PO BEDTIME PRN PRN Reason: Insomnia Last Admin: 03/21/21 04:14 Dose: 50 mg Documented by: Vitamin D (Cholecalciferol (Vitamin D3) 25 Mcg Tablet) 50 mcg PO DAILY [facility] Last Admin: 03/21/21 09:00 Dose: 50 mcg Documented by: Allergies Allergies Allergy/AdvReac Type Severity Reaction Status Date / Time Sulfa (Sulfonamide Allergy Unknown HIVES Verified 03/15/21 14:13 Antibiotics) [SULFA (SULFONAMIDE ANTIBIOTICS)] sulfamethoxazole Allergy Unknown HIVES Verified 03/15/21 14:13 [From BACTRIM] trimethoprim [From BACTRIM] Allergy Unknown HIVES Verified 03/15/21 14:13 Assessment & Plan Assessment & Plan (1) PTSD (post-traumatic stress disorder): Status: Acute Code(s): F43.10 - Post-traumatic stress disorder, unspecified (2) MDD (major depressive disorder), recurrent severe, without psychosis: Status: Acute Code(s): F33.2 - Major depressive disorder, recurrent severe without psychotic features Assessment and Plan: continue outpt meds. admitted to M3 for safety and containment. 1:1 after head banging and reportedly wrapping sheets around neck in shower. 03/17 ativan dosing changed from 1 TID to 1 BID and 1 PRN daily, per pt request. med changes discussed at length 03/18, 03/19. trying to obtain genetic testing report from medical records. zoloft 50 mg daily in addition to pristiq as of 03/20. observe for stability, keep safe. I spent minutes with the patient and/or on the patient floor today, greater than?50% of which was spent counseling/coordinating care. Reason for contiued inpatient stay Substantial Risk for: inability to function, rapid decompensation and med/psych decompensation
[2021-03-21] MEDS: Acetaminophen 325 MG TABLET 650 MG PO ×2 (13:50→21:33)
[2021-03-21] MEDS: Melatonin 3 MG TABLET 6 MG PO (21:32)
[2021-03-21] MEDS: traZODone HCL 100 MG TABLET 300 MG PO (21:32)
[2021-03-21 21:33] VITALS: BP 120/67; PULSE 68
[2021-03-21] MEDS: Prazosin HCL 5 MG CAPSULE 10 MG PO (21:33)
[2021-03-21 21:37] VITALS: TEMP 36.8; O2SAT 95
[2021-03-22] MEDS: traZODone HCL 50 MG TABLET PO (00:55)
[2021-03-22] MEDS: LORazepam 1 MG TABLET PO ×4 (00:55→20:28)
[2021-03-22 06:00] VITALS: BP 122/65; PULSE 92; RESP 18; TEMP 36.7; O2SAT 98
[2021-03-22] MEDS: Thiamine HCL 100 MG TABLET PO (09:15)
[2021-03-22] MEDS: Fluticasone Propionate Nasal 16 GM SPRAY NOSTRIL-B (09:16)
[2021-03-22] MEDS: Cholecalciferol (Vitamin D3) 25 MCG TABLET 50 MCG PO (09:18)
[2021-03-22] MEDS: Sertraline HCL 50 MG TABLET PO (09:19)
[2021-03-22] MEDS: Amphetamine Mixed Salts 20 MG TABLET PO (09:20)
[2021-03-22] MEDS: Lithium Carbonate ER 300 MG TABLET.ER 600 MG PO ×2 (09:21→20:26)
--- NOTE | 2021-03-22 10:51 | P.PNPSI_ITS ---
Subjective Subjective Date of Service: 03/22/21 Reason For Visit: SI Interim History: The nursing staff reported that the patient slept poorly last night, she has napped in the morning on and off. She is dysphoric with self- injuries thoughts but she is not action on those. Today, on interview, she was focused on working on a project, she admitted some dysphoria but she is trying to distract herself. Mental Status Exam Mental Status Exam Patient Appearance: Well Grooomed Patient Orientation: Person Level of Consciousness: Awake Patient Behavior: Cooperative Mood Description: Depressed Affect Description: Constricted Patient Cognition Impaired: No Ability to Follow Directions: Good Speech Pattern: Clear Hallucinations: None Delusions: Not Present Thought Process: Linear Thought Content: positive for Circumstantial Judgement: Fair Diagnostics Vital Signs (24Hr): Vital Signs - 24 hr 03/21/21 21:33 03/21/21 21:37 03/22/21 06:00 Temperature 98.3 F 98.1 F Pulse Rate 68 92 Respiratory Rate 18 Blood Pressure 120/67 122/65 Pulse Oximetry 95 98 BMI result Body Mass Index 32.4 Labs Results: 03/14/21 15:38 03/14/21 15:37 Imaging Radiology Impressions: ITS Impressions Head CT 03/17/21 17:01 IMPRESSION: No CT evidence of intracranial bleed or hemorrhage. Medications Medications Current Medications Acetaminophen (Acetaminophen 325 Mg Tablet) 650 mg PO Q6H PRN PRN Reason: Headache/Pain Mild Scale (1-3) Last Admin: 03/21/21 21:33 Dose: 650 mg Documented by: Al Hydroxide/Mg Hydroxide (Magnesium Hydrox/Alum Hydrox 30 Ml Oral.Susp) 30 ml PO Q6H PRN PRN Reason: Heartburn/Nausea Amphetamine/Dextroamphetamine (Amphetamine Mixed Salts 20 Mg Tablet) 20 mg PO DAILY [facility] Last Admin: 03/22/21 09:20 Dose: 20 mg Documented by: Docusate Sodium (Docusate Sodium 100 Mg Capsule) 100 mg PO DAILY PRN PRN Reason: Constipation Fluticasone Propionate (Fluticasone Propionate Nasal 16 Gm [place]) 1 - 2 spray NOSTRIL-B DAILY [facility] Last Admin: 03/22/21 09:16 Dose: 1 spray Documented by: Hydroxyzine HCl (Hydroxyzine Hcl 25 Mg Tablet) 25 mg PO BEDTIME PRN PRN Reason: Anxiety Last Admin: 03/21/21 21:33 Dose: 25 mg Documented by: [place] Carbonate ([place] Carbonate Er 300 Mg Tablet.Er) 600 mg PO BID [facility] Last Admin: 03/22/21 09:21 Dose: 600 mg Documented by: Lorazepam (Lorazepam 1 Mg Tablet) 1 mg PO BID [facility] Last Admin: 03/22/21 09:19 Dose: 1 mg Documented by: Lorazepam (Lorazepam 1 Mg Tablet) 1 mg PO BID PRN PRN Reason: Anxiety Last Admin: 03/22/21 00:55 Dose: 1 mg Documented by: Magnesium Hydroxide (Milk Of Magnesia 30 Ml Oral.Susp) 30 ml PO DAILY PRN PRN Reason: Constipation Melatonin (Melatonin 3 Mg Tablet) 6 mg PO BEDTIME PRN PRN Reason: sleep Last Admin: 03/21/21 21:32 Dose: 6 mg Documented by: Nicotine (Nicotine 21 Mg Patch.Td24) 21 mg TRANSDERMA DAILY [facility] Last Admin: 03/22/21 10:05 Dose: Not Given Documented by: Patient Own Medication ( Desvenlafaxine Er 100 Mg) 1 each PO DAILY [facility] Last Admin: 03/22/21 09:17 Dose: 1 each Documented by: Prazosin HCl (Prazosin Hcl 5 Mg Capsule) 10 mg PO BEDTIME [facility]; Protocol Last Admin: 03/21/21 21:33 Dose: 10 mg Documented by: Quetiapine Fumarate (Quetiapine Fumarate 50 Mg Tablet) 50 mg PO BID PRN PRN Reason: mod-severe anxiety/ agitation Sertraline HCl (Sertraline Hcl 50 Mg Tablet) 50 mg PO DAILY [facility] Last Admin: 03/22/21 09:19 Dose: 50 mg Documented by: Thiamine HCl (Thiamine Hcl 100 Mg Tablet) 100 mg PO DAILY [facility] Last Admin: 03/22/21 09:15 Dose: 100 mg Documented by: Trazodone HCl (Trazodone Hcl 100 Mg Tablet) 300 mg PO BEDTIME [facility] Last Admin: 03/21/21 21:32 Dose: 300 mg Documented by: Trazodone HCl (Trazodone Hcl 50 Mg Tablet) 50 mg PO BEDTIME PRN PRN Reason: Insomnia Last Admin: 03/22/21 00:55 Dose: 50 mg Documented by: Vitamin D (Cholecalciferol (Vitamin D3) 25 Mcg Tablet) 50 mcg PO DAILY [facility] Last Admin: 03/22/21 09:18 Dose: 50 mcg Documented by: Allergies Allergies Allergy/AdvReac Type Severity Reaction Status Date / Time Sulfa (Sulfonamide Allergy Unknown HIVES Verified 03/15/21 14:13 Antibiotics) [SULFA (SULFONAMIDE ANTIBIOTICS)] sulfamethoxazole Allergy Unknown HIVES Verified 03/15/21 14:13 [From BACTRIM] trimethoprim [From BACTRIM] Allergy Unknown HIVES Verified 03/15/21 14:13 Assessment & Plan Assessment & Plan (1) PTSD (post-traumatic stress disorder): Status: Acute Code(s): F43.10 - Post-traumatic stress disorder, unspecified (2) MDD (major depressive disorder), recurrent severe, without psychosis: Status: Acute Code(s): F33.2 - Major depressive disorder, recurrent severe without psychotic features Assessment and Plan: continue outpt meds. admitted to M3 for safety and containment. 1:1 after head banging and reportedly wrapping sheets around neck in shower. 03/17 ativan dosing changed from 1 TID to 1 BID and 1 PRN daily, per pt request. med changes discussed at length 03/18, 03/19. trying to obtain genetic testing report from medical records. zoloft 50 mg daily in addition to pristiq as of 03/20. observe for stability, keep safe. I spent minutes with the patient and/or on the patient floor today, greater than?50% of which was spent counseling/coordinating care. Reason for contiued inpatient stay Substantial Risk for: harm to self, inability to function, rapid decompensation and med/psych decompensation
[2021-03-22] MEDS: traZODone HCL 100 MG TABLET 300 MG PO (20:26)
[2021-03-22] MEDS: Melatonin 3 MG TABLET 6 MG PO (20:26)
[2021-03-22 20:27] VITALS: BP 125/59; PULSE 80
[2021-03-22] MEDS: Acetaminophen 325 MG TABLET 650 MG PO (20:27)
[2021-03-22] MEDS: Prazosin HCL 5 MG CAPSULE 10 MG PO (20:27)
[2021-03-22] MEDS: hydrOXYzine HCL 25 MG TABLET PO (20:28)
[2021-03-22 21:04] VITALS: BP 125/59; PULSE 80; RESP 16; TEMP 36.9; O2SAT 96
[2021-03-23] MEDS: Amphetamine Mixed Salts 20 MG TABLET PO (08:52)
[2021-03-23] MEDS: LORazepam 1 MG TABLET PO ×3 (08:52→21:23)
[2021-03-23] MEDS: Lithium Carbonate ER 300 MG TABLET.ER 600 MG PO ×2 (08:52→21:22)
[2021-03-23] MEDS: Cholecalciferol (Vitamin D3) 25 MCG TABLET 50 MCG PO (08:52)
[2021-03-23] MEDS: Sertraline HCL 50 MG TABLET PO (08:52)
[2021-03-23] MEDS: Thiamine HCL 100 MG TABLET PO (08:52)
[2021-03-23] MEDS: Fluticasone Propionate Nasal 16 GM SPRAY NOSTRIL-B (08:52)
[2021-03-23 10:07] VITALS: BP 128/75; PULSE 107; RESP 17; TEMP 36.9; O2SAT 97
[2021-03-23] MEDS: HaloperidoL 5 MG TABLET PO (13:19)
--- NOTE | 2021-03-23 13:34 | PC.NURSE ---
PT noted to be banging their head against the wall in their room. PT requested medication, was given PRN ativan. Pt stated that they feel the next few days, through uzma, are going to be more difficult than they had previously thought and requested a one time dose of haldol to see if that would help. notified, TO for one time dose received. PT medicated per EMAR, effects pending.
--- NOTE | 2021-03-23 14:07 | HO.PSYCHPN ---
Subjective Subjective Date of Service: 03/23/21 Reason For Visit: SI Interim History: pt seen with FRANCISCA loomis. pt reports ongoing thoughts of how things would have been this xmas if the child had survived. it makes her want to bang her head, which she did a little earlier, for which she got ativan 1 mg and then haldol 5 mg. she reports she did some head banging on tuesday and then was able to remain safe over the weekend. discuss options for medication for the purpose of quelling pt's intense affect. pt agrees to try thorazine 100 mg Q4H PRN to start now. per staff, not attending any groups. 1:1 continues. dep 10, anx 9. doing her art in the common areas. mother visited over w/e which made her upset. difficulty staying asleep. no unsafe behavior since tuesday. Mental Status Exam Mental Status Exam Narrative: Appearance: in milieu doing art project Behavior:cooperative psychomotor: no agitation or retardation noted Speech:clear, normal rate/rhythm/volume, spontaneous Thought process:linear Thought content:no signs of psychosis Mood: depressed Affect: constricted, normo-intense, mod-labile (crying) SI: endorses SI/SIBI. HI:none expressed VH/AH:none expressed Delusions:none expressed Diagnostics Vital Signs (24Hr): Vital Signs - 24 hr 03/22/21 20:27 03/22/21 21:04 03/23/21 10:07 Temperature 98.5 F 98.5 F Pulse Rate 80 80 107 H Respiratory Rate 16 17 Blood Pressure 125/59 L 125/59 L 128/75 Pulse Oximetry 96 97 BMI result Body Mass Index 32.4 Labs Results: 03/14/21 15:38 03/14/21 15:37 Imaging Radiology Impressions: ITS Impressions Head CT 03/17/21 17:01 IMPRESSION: No CT evidence of intracranial bleed or hemorrhage. Medications Medications Current Medications Acetaminophen (Acetaminophen 325 Mg Tablet) 650 mg PO Q6H PRN PRN Reason: Headache/Pain Mild Scale (1-3) Last Admin: 03/22/21 20:27 Dose: 650 mg Documented by: Al Hydroxide/Mg Hydroxide (Magnesium Hydrox/Alum Hydrox 30 Ml Oral.Susp) 30 ml PO Q6H PRN PRN Reason: Heartburn/Nausea Amphetamine/Dextroamphetamine (Amphetamine Mixed Salts 20 Mg Tablet) 20 mg PO DAILY [facility] Last Admin: 03/23/21 08:52 Dose: 20 mg Documented by: Chlorpromazine HCl (Chlorpromazine Hcl 100 Mg Tablet) 100 mg PO Q4H PRN PRN Reason: agitation Docusate Sodium (Docusate Sodium 100 Mg Capsule) 100 mg PO DAILY PRN PRN Reason: Constipation Fluticasone Propionate (Fluticasone Propionate Nasal 16 Gm [place]) 1 - 2 spray NOSTRIL-B DAILY [facility] Last Admin: 03/23/21 08:52 Dose: 1 spray Documented by: Hydroxyzine HCl (Hydroxyzine Hcl 25 Mg Tablet) 25 mg PO BEDTIME PRN PRN Reason: Anxiety Last Admin: 03/22/21 20:28 Dose: 25 mg Documented by: [place] Carbonate ([place] Carbonate Er 300 Mg Tablet.Er) 600 mg PO BID [facility] Last Admin: 03/23/21 08:52 Dose: 600 mg Documented by: Lorazepam (Lorazepam 1 Mg Tablet) 1 mg PO BID [facility] Last Admin: 03/23/21 08:52 Dose: 1 mg Documented by: Lorazepam (Lorazepam 1 Mg Tablet) 1 mg PO DAILY PRN PRN Reason: agitation Last Admin: 03/23/21 13:02 Dose: 1 mg Documented by: Magnesium Hydroxide (Milk Of Magnesia 30 Ml Oral.Susp) 30 ml PO DAILY PRN PRN Reason: Constipation Melatonin (Melatonin 3 Mg Tablet) 6 mg PO BEDTIME PRN PRN Reason: sleep Last Admin: 03/22/21 20:26 Dose: 6 mg Documented by: Nicotine (Nicotine 21 Mg Patch.Td24) 21 mg TRANSDERMA DAILY [facility] Last Admin: 03/23/21 08:55 Dose: Not Given Documented by: Patient Own Medication ( Desvenlafaxine Er 100 Mg) 1 each PO DAILY [facility] Last Admin: 03/22/21 09:17 Dose: 1 each Documented by: Prazosin HCl (Prazosin Hcl 5 Mg Capsule) 10 mg PO BEDTIME [facility]; Protocol Last Admin: 03/22/21 20:27 Dose: 10 mg Documented by: Quetiapine Fumarate (Quetiapine Fumarate 50 Mg Tablet) 50 mg PO BID PRN PRN Reason: mod-severe anxiety/ agitation Sertraline HCl (Sertraline Hcl 50 Mg Tablet) 50 mg PO DAILY [facility] Last Admin: 03/23/21 08:52 Dose: 50 mg Documented by: Thiamine HCl (Thiamine Hcl 100 Mg Tablet) 100 mg PO DAILY [facility] Last Admin: 03/23/21 08:52 Dose: 100 mg Documented by: Trazodone HCl (Trazodone Hcl 100 Mg Tablet) 300 mg PO BEDTIME [facility] Last Admin: 03/22/21 20:26 Dose: 300 mg Documented by: Trazodone HCl (Trazodone Hcl 50 Mg Tablet) 50 mg PO BEDTIME PRN PRN Reason: Insomnia Last Admin: 03/22/21 00:55 Dose: 50 mg Documented by: Vitamin D (Cholecalciferol (Vitamin D3) 25 Mcg Tablet) 50 mcg PO DAILY [facility] Last Admin: 03/23/21 08:52 Dose: 50 mcg Documented by: Allergies Allergies Allergy/AdvReac Type Severity Reaction Status Date / Time Sulfa (Sulfonamide Allergy Unknown HIVES Verified 03/15/21 14:13 Antibiotics) [SULFA (SULFONAMIDE ANTIBIOTICS)] sulfamethoxazole Allergy Unknown HIVES Verified 03/15/21 14:13 [From BACTRIM] trimethoprim [From BACTRIM] Allergy Unknown HIVES Verified 03/15/21 14:13 Assessment & Plan Assessment & Plan (1) PTSD (post-traumatic stress disorder): Status: Acute Code(s): F43.10 - Post-traumatic stress disorder, unspecified (2) MDD (major depressive disorder), recurrent severe, without psychosis: Status: Acute Code(s): F33.2 - Major depressive disorder, recurrent severe without psychotic features Assessment and Plan: continue outpt meds. admitted to M3 for safety and containment. 1:1 after head banging and reportedly wrapping sheets around neck in shower. 03/17 ativan dosing changed from 1 TID to 1 BID and 1 PRN daily, per pt request. med changes discussed at length 03/18, 03/19. trying to obtain genetic testing report from medical records. zoloft 50 mg daily in addition to pristiq as of 03/20. thorazine 100 mg Q4H PRN added 03/23 for impulses to self-harm. observe for stability, keep safe. I spent minutes with the patient and/or on the patient floor today, greater than?50% of which was spent counseling/coordinating care. Reason for contiued inpatient stay Substantial Risk for: harm to self
[2021-03-23] MEDS: chlorproMAZINE HCl 100 MG TABLET PO ×3 (14:25→21:22)
[2021-03-23 18:00] VITALS: BP 114/62; PULSE 101; RESP 18; TEMP 36.6; O2SAT 98
[2021-03-23] MEDS: Melatonin 3 MG TABLET 6 MG PO (21:22)
[2021-03-23] MEDS: Prazosin HCL 5 MG CAPSULE 10 MG PO (21:22)
[2021-03-23] MEDS: traZODone HCL 100 MG TABLET 300 MG PO (21:23)
[2021-03-24] MEDS: chlorproMAZINE HCl 100 MG TABLET PO (06:09)
[2021-03-24] MEDS: Cholecalciferol (Vitamin D3) 25 MCG TABLET 50 MCG PO (08:30)
[2021-03-24] MEDS: Thiamine HCL 100 MG TABLET PO (08:31)
[2021-03-24] MEDS: Lithium Carbonate ER 300 MG TABLET.ER 600 MG PO ×2 (08:31→20:45)
[2021-03-24] MEDS: LORazepam 1 MG TABLET PO ×2 (08:31→20:45)
[2021-03-24] MEDS: Amphetamine Mixed Salts 20 MG TABLET PO (08:32)
[2021-03-24] MEDS: Sertraline HCL 50 MG TABLET PO (08:32)
[2021-03-24] MEDS: Fluticasone Propionate Nasal 16 GM SPRAY NOSTRIL-B (08:40)
--- NOTE | 2021-03-24 14:19 | HO.PSYCHPN ---
Subjective Subjective Date of Service: 03/24/21 Reason For Visit: SI Interim History: approaches pt in [facility], female 1:1 at pt's side. pt requests presence of FRANCISCA cramer for interview. MD returns later with bela and the three repair to pt's room for discussion. discuss the relative merits of PO versus IM medication and benzos versus anti-psychotics for the mgmt of acute self-harm behavior. pt expresses preference for IM medication for the near future and agrees to combo of haldol and ativan IM should she express to staff that she is going to harm herself. per staff, doing crafts, tearful, isolative after lunch. asjed to be snowed. given a couple mg of ativan and 200 mg of thorazine over the afternoon, which finally sedated her late afternoon into the evening. Mental Status Exam Mental Status Exam Narrative: Appearance: in [facility] doing art project Behavior:cooperative psychomotor: no agitation or retardation noted Speech:clear, normal rate/rhythm/volume, spontaneous Thought process:linear Thought content:no signs of psychosis Mood: depressed Affect: constricted, normo-intense, non-labile SI: endorses SI/SIBI. HI:none expressed VH/AH:none expressed Delusions:none expressed Diagnostics Vital Signs (24Hr): Vital Signs - 24 hr 03/23/21 18:00 Temperature 97.9 F Pulse Rate 101 H Respiratory Rate 18 Blood Pressure 114/62 Pulse Oximetry 98 BMI result Body Mass Index 32.4 Labs Results: 03/14/21 15:38 03/14/21 15:37 Imaging Radiology Impressions: ITS Impressions Head CT 03/17/21 17:01 IMPRESSION: No CT evidence of intracranial bleed or hemorrhage. Medications Medications Current Medications Acetaminophen (Acetaminophen 325 Mg Tablet) 650 mg PO Q6H PRN PRN Reason: Headache/Pain Mild Scale (1-3) Last Admin: 03/22/21 20:27 Dose: 650 mg Documented by: Al Hydroxide/Mg Hydroxide (Magnesium Hydrox/Alum Hydrox 30 Ml Oral.Susp) 30 ml PO Q6H PRN PRN Reason: Heartburn/Nausea Amphetamine/Dextroamphetamine (Amphetamine Mixed Salts 20 Mg Tablet) 20 mg PO DAILY [facility] Last Admin: 03/24/21 08:32 Dose: 20 mg Documented by: Chlorpromazine HCl (Chlorpromazine Hcl 100 Mg Tablet) 100 mg PO Q4H PRN PRN Reason: agitation Last Admin: 03/24/21 06:09 Dose: 100 mg Documented by: Docusate Sodium (Docusate Sodium 100 Mg Capsule) 100 mg PO DAILY PRN PRN Reason: Constipation Fluticasone Propionate (Fluticasone Propionate Nasal 16 Gm [place]) 1 - 2 spray NOSTRIL-B DAILY [facility] Last Admin: 03/24/21 08:40 Dose: 1 spray Documented by: Haloperidol Lactate (Haloperidol Lactate 5 Mg/Ml Vial) 5 mg IM Q4H PRN PRN Reason: risk of self-injurious behavio Hydroxyzine HCl (Hydroxyzine Hcl 25 Mg Tablet) 25 mg PO BEDTIME PRN PRN Reason: Anxiety Last Admin: 03/22/21 20:28 Dose: 25 mg Documented by: [place] Carbonate ([place] Carbonate Er 300 Mg Tablet.Er) 600 mg PO BID [facility] Last Admin: 03/24/21 08:31 Dose: 600 mg Documented by: Lorazepam (Lorazepam 1 Mg Tablet) 1 mg PO BID [facility] Last Admin: 03/24/21 08:31 Dose: 1 mg Documented by: Lorazepam (Lorazepam 1 Mg Tablet) 1 mg PO DAILY PRN PRN Reason: agitation Last Admin: 03/23/21 13:02 Dose: 1 mg Documented by: Lorazepam (Lorazepam 2 Mg/Ml Vial) 2 mg IM Q4H PRN PRN Reason: risk of self-injurious behavio Magnesium Hydroxide (Milk Of Magnesia 30 Ml Oral.Susp) 30 ml PO DAILY PRN PRN Reason: Constipation Melatonin (Melatonin 3 Mg Tablet) 6 mg PO BEDTIME PRN PRN Reason: sleep Last Admin: 03/23/21 21:22 Dose: 6 mg Documented by: Nicotine Polacrilex (Nicotine Polacrilex 2 Mg Gum) 2 mg [place] Q1H PRN PRN Reason: Nicotine Cravings Patient Own Medication ( Desvenlafaxine Er 100 Mg) 1 each PO DAILY [facility] Last Admin: 03/24/21 08:40 Dose: 1 each Documented by: Prazosin HCl (Prazosin Hcl 5 Mg Capsule) 10 mg PO BEDTIME [facility]; Protocol Last Admin: 03/23/21 21:22 Dose: 10 mg Documented by: Quetiapine Fumarate (Quetiapine Fumarate 50 Mg Tablet) 50 mg PO BID PRN PRN Reason: mod-severe anxiety/ agitation Sertraline HCl (Sertraline Hcl 50 Mg Tablet) 50 mg PO DAILY [facility] Last Admin: 03/24/21 08:32 Dose: 50 mg Documented by: Thiamine HCl (Thiamine Hcl 100 Mg Tablet) 100 mg PO DAILY [facility] Last Admin: 03/24/21 08:31 Dose: 100 mg Documented by: Trazodone HCl (Trazodone Hcl 100 Mg Tablet) 300 mg PO BEDTIME [facility] Last Admin: 03/23/21 21:23 Dose: 300 mg Documented by: Trazodone HCl (Trazodone Hcl 50 Mg Tablet) 50 mg PO BEDTIME PRN PRN Reason: Insomnia Last Admin: 03/22/21 00:55 Dose: 50 mg Documented by: Vitamin D (Cholecalciferol (Vitamin D3) 25 Mcg Tablet) 50 mcg PO DAILY [facility] Last Admin: 03/24/21 08:30 Dose: 50 mcg Documented by: Allergies Allergies Allergy/AdvReac Type Severity Reaction Status Date / Time Sulfa (Sulfonamide Allergy Unknown HIVES Verified 03/15/21 14:13 Antibiotics) [SULFA (SULFONAMIDE ANTIBIOTICS)] sulfamethoxazole Allergy Unknown HIVES Verified 03/15/21 14:13 [From BACTRIM] trimethoprim [From BACTRIM] Allergy Unknown HIVES Verified 03/15/21 14:13 Assessment & Plan Assessment & Plan (1) PTSD (post-traumatic stress disorder): Status: Acute Code(s): F43.10 - Post-traumatic stress disorder, unspecified (2) MDD (major depressive disorder), recurrent severe, without psychosis: Status: Acute Code(s): F33.2 - Major depressive disorder, recurrent severe without psychotic features Assessment and Plan: continue outpt meds. admitted to for safety and containment. 1:1 after head banging and reportedly wrapping sheets around neck in shower. 03/17 ativan dosing changed from 1 TID to 1 BID and 1 PRN daily, per pt request. med changes discussed at length 03/18, 03/19. trying to obtain genetic testing report from medical records. zoloft 50 mg daily in addition to pristiq as of 03/20. thorazine 100 mg Q4H PRN added 03/23 for impulses to self-harm. IMs of ativan and haldol added PRN imminent self-harm as of 03/24. observe for stability, keep safe. I spent minutes with the patient and/or on the patient floor today, greater than?50% of which was spent counseling/coordinating care. Reason for contiued inpatient stay Substantial Risk for: harm to self, inability to function and rapid decompensation
[2021-03-24] MEDS: Nicotine Polacrilex 2 MG GUM BUCCAL (15:57)
[2021-03-24 20:30] VITALS: BP 127/62; PULSE 88; RESP 18; TEMP 36.8; O2SAT 98
[2021-03-24] MEDS: Prazosin HCL 5 MG CAPSULE 10 MG PO (20:45)
[2021-03-24] MEDS: traZODone HCL 100 MG TABLET 300 MG PO (20:46)
[2021-03-24] MEDS: Melatonin 3 MG TABLET 6 MG PO (20:49)
--- NOTE | 2021-03-25 | ECG_ITS ---
Test Reason : chest pain Blood Pressure : / mmHG Vent. Rate : 078 BPM Atrial Rate : 078 BPM P-R Int : 172 ms QRS Dur : 100 ms QT Int : 382 ms P-R-T Axes : 050 073 042 degrees QTc Int : 435 ms Sinus rhythm with occasional Premature ventricular complexes Otherwise normal ECG No previous ECGs available Referred By: Elizabeth Simpson Electronically Signed By:VIBHA BYRNES
[2021-03-25 08:07] VITALS: BP 129/58; PULSE 89; RESP 17; TEMP 36.8; O2SAT 97
[2021-03-25] MEDS: Fluticasone Propionate Nasal 16 GM SPRAY NOSTRIL-B (08:28)
[2021-03-25] MEDS: Thiamine HCL 100 MG TABLET PO (08:29)
[2021-03-25] MEDS: Amphetamine Mixed Salts 20 MG TABLET PO (08:29)
[2021-03-25] MEDS: Cholecalciferol (Vitamin D3) 25 MCG TABLET 50 MCG PO (08:29)
[2021-03-25] MEDS: LORazepam 1 MG TABLET PO ×2 (08:29→20:17)
[2021-03-25] MEDS: Sertraline HCL 50 MG TABLET PO (08:29)
[2021-03-25] MEDS: Lithium Carbonate ER 300 MG TABLET.ER 600 MG PO ×2 (08:29→20:16)
[2021-03-25] MEDS: Docusate Sodium 100 MG CAPSULE PO (10:20)
[2021-03-25] MEDS: LORazepam 2 MG/ML VIAL IM (12:19)
[2021-03-25] MEDS: Haloperidol Lactate 5 MG/ML VIAL IM (12:19)
--- NOTE | 2021-03-25 13:00 | P.PNPSI_ITS ---
Subjective Subjective Date of Service: 03/25/21 Reason For Visit: SI Interim History: pt seen in her room with FRANCISCA cramer. pt expressed severe ideation to harm herself via head-banging and requested IM haldol and ativan, which was provided. asks for xanax PRN for situations where she is strongly feeling like harming self but not yet to the point of needing IMs. no request to change mgmt in any other way. anticipating the next couple of days will be tough. per staff, isolative, withdrawn. doing art. + SI. med-compliant. not attending groups. Mental Status Exam Mental Status Exam Narrative: Appearance: in room speaking with FRANCISCA Behavior:cooperative psychomotor: no agitation or retardation noted Speech:clear, normal rate/rhythm/volume, spontaneous Thought process:linear Thought content:no signs of psychosis Mood: depressed Affect: constricted, normo-intense, min-labile (tearful) SI: endorses SI/SIBI. HI:none expressed VH/AH:none expressed Delusions:none expressed Diagnostics Vital Signs (24Hr): Vital Signs - 24 hr 03/24/21 20:30 03/25/21 08:07 Temperature 98.2 F 98.2 F Pulse Rate 88 89 Respiratory Rate 18 17 Blood Pressure 127/62 129/58 L Pulse Oximetry 98 97 BMI result Body Mass Index 32.4 Labs Results: 03/14/21 15:38 03/14/21 15:37 Imaging Radiology Impressions: ITS Impressions Head CT 03/17/21 17:01 IMPRESSION: No CT evidence of intracranial bleed or hemorrhage. Medications Medications Current Medications Acetaminophen (Acetaminophen 325 Mg Tablet) 650 mg PO Q6H PRN PRN Reason: Headache/Pain Mild Scale (1-3) Last Admin: 03/22/21 20:27 Dose: 650 mg Documented by: Al Hydroxide/Mg Hydroxide (Magnesium Hydrox/Alum Hydrox 30 Ml Oral.Susp) 30 ml PO Q6H PRN PRN Reason: Heartburn/Nausea Alprazolam (Alprazolam 0.5 Mg Tablet) 1 mg PO TID PRN PRN Reason: self-injurious ideation Amphetamine/Dextroamphetamine (Amphetamine Mixed Salts 20 Mg Tablet) 20 mg PO DAILY [facility] Last Admin: 03/25/21 08:29 Dose: 20 mg Documented by: Chlorpromazine HCl (Chlorpromazine Hcl 100 Mg Tablet) 100 mg PO Q4H PRN PRN Reason: agitation Last Admin: 03/24/21 06:09 Dose: 100 mg Documented by: Docusate Sodium (Docusate Sodium 100 Mg Capsule) 100 mg PO DAILY PRN PRN Reason: Constipation Last Admin: 03/25/21 10:20 Dose: 100 mg Documented by: Fluticasone Propionate (Fluticasone Propionate Nasal 16 Gm [place]) 1 - 2 spray NOSTRIL-B DAILY [facility] Last Admin: 03/25/21 08:28 Dose: 1 spray Documented by: Haloperidol Lactate (Haloperidol Lactate 5 Mg/Ml Vial) 5 mg IM Q4H PRN PRN Reason: risk of self-injurious behavio Last Admin: 03/25/21 12:19 Dose: 5 mg Documented by: Hydroxyzine HCl (Hydroxyzine Hcl 25 Mg Tablet) 25 mg PO BEDTIME PRN PRN Reason: Anxiety Last Admin: 03/22/21 20:28 Dose: 25 mg Documented by: [place] Carbonate ([place] Carbonate Er 300 Mg Tablet.Er) 600 mg PO BID [facility] Last Admin: 03/25/21 08:29 Dose: 600 mg Documented by: Lorazepam (Lorazepam 1 Mg Tablet) 1 mg PO BID [facility] Last Admin: 03/25/21 08:29 Dose: 1 mg Documented by: Lorazepam (Lorazepam 1 Mg Tablet) 1 mg PO DAILY PRN PRN Reason: agitation Last Admin: 03/23/21 13:02 Dose: 1 mg Documented by: Lorazepam (Lorazepam 2 Mg/Ml Vial) 2 mg IM Q4H PRN PRN Reason: risk of self-injurious behavio Last Admin: 03/25/21 12:19 Dose: 2 mg Documented by: Magnesium Hydroxide (Milk Of Magnesia 30 Ml Oral.Susp) 30 ml PO DAILY PRN PRN Reason: Constipation Melatonin (Melatonin 3 Mg Tablet) 6 mg PO BEDTIME PRN PRN Reason: sleep Last Admin: 03/24/21 20:49 Dose: 6 mg Documented by: Nicotine Polacrilex (Nicotine Polacrilex 2 Mg Gum) 2 mg BUCCAL Q1H PRN PRN Reason: Nicotine Cravings Last Admin: 03/24/21 15:57 Dose: 2 mg Documented by: Patient Own Medication ( Desvenlafaxine Er 100 Mg) 1 each PO DAILY [facility] Last Admin: 03/25/21 08:29 Dose: 1 each Documented by: Prazosin HCl (Prazosin Hcl 5 Mg Capsule) 10 mg PO BEDTIME [facility]; Protocol Last Admin: 03/24/21 20:45 Dose: 10 mg Documented by: Quetiapine Fumarate (Quetiapine Fumarate 50 Mg Tablet) 50 mg PO BID PRN PRN Reason: mod-severe anxiety/ agitation Sertraline HCl (Sertraline Hcl 50 Mg Tablet) 50 mg PO DAILY [facility] Last Admin: 03/25/21 08:29 Dose: 50 mg Documented by: Thiamine HCl (Thiamine Hcl 100 Mg Tablet) 100 mg PO DAILY [facility] Last Admin: 03/25/21 08:29 Dose: 100 mg Documented by: Trazodone HCl (Trazodone Hcl 100 Mg Tablet) 300 mg PO BEDTIME [facility] Last Admin: 03/24/21 20:46 Dose: 300 mg Documented by: Trazodone HCl (Trazodone Hcl 50 Mg Tablet) 50 mg PO BEDTIME PRN PRN Reason: Insomnia Last Admin: 03/22/21 00:55 Dose: 50 mg Documented by: Vitamin D (Cholecalciferol (Vitamin D3) 25 Mcg Tablet) 50 mcg PO DAILY [facility] Last Admin: 03/25/21 08:29 Dose: 50 mcg Documented by: Allergies Allergies Allergy/AdvReac Type Severity Reaction Status Date / Time Sulfa (Sulfonamide Allergy Unknown HIVES Verified 03/15/21 14:13 Antibiotics) [SULFA (SULFONAMIDE ANTIBIOTICS)] sulfamethoxazole Allergy Unknown HIVES Verified 03/15/21 14:13 [From BACTRIM] trimethoprim [From BACTRIM] Allergy Unknown HIVES Verified 03/15/21 14:13 Assessment & Plan Assessment & Plan (1) PTSD (post-traumatic stress disorder): Status: Acute Code(s): F43.10 - Post-traumatic stress disorder, unspecified (2) MDD (major depressive disorder), recurrent severe, without psychosis: Status: Acute Code(s): F33.2 - Major depressive disorder, recurrent severe without psychotic features Assessment and Plan: continue outpt meds. admitted to for safety and containment. 1:1 after head banging and reportedly wrapping sheets around neck in shower. 03/17 ativan dosing changed from 1 TID to 1 BID and 1 PRN daily, per pt request. med changes discussed at length 03/18, 03/19. trying to obtain genetic testing report from medical records. zoloft 50 mg daily in addition to pristiq as of 03/20. thorazine 100 mg Q4H PRN added 03/23 for impulses to self-harm. IMs of ativan and haldol added PRN imminent self-harm as of 03/24. PRNs of xanax 1 mg added 03/25 for not quite imminent self-harm. observe for stability, keep safe. I spent minutes with the patient and/or on the patient floor today, greater than?50% of which was spent counseling/coordinating care. Reason for contiued inpatient stay Substantial Risk for: harm to self, inability to function and rapid decompensation
--- NOTE | 2021-03-25 18:31 | PC.NURSE ---
Approx 1730 patient c/o chest discomfort. Patient denied radiation, no diaphoresis, no feeling of squeezing, not sharp. Reports discomfort is #6 out of 10. VSS BP 124/60, p 87, RR 16, O2 98% RA. Reports they ate a short while ago and laid down. Mylanta offered, patient stated they used to have a problem with that but not in a long time . Elizabeth Simpson MICA PATCHER notified. Labs ordered, EKG ordered, CXR ordered. Patient informed.
[2021-03-25 19:30] LABS: D Dimer High Sensitivity < 150 NG/ML
[2021-03-25 19:56] LABS: Troponin-I High Sensitivity < 3.5 ng/L (<3.5-17.0)
[2021-03-25] MEDS: Melatonin 3 MG TABLET 6 MG PO (20:15)
[2021-03-25 20:16] VITALS: BP 123/71; PULSE 87
[2021-03-25] MEDS: Prazosin HCL 5 MG CAPSULE 10 MG PO (20:16)
[2021-03-25] MEDS: traZODone HCL 100 MG TABLET 300 MG PO (20:16)
[2021-03-25] MEDS: ALPRAZolam 0.5 MG TABLET 1 MG PO (20:17)
[2021-03-25] MEDS: hydrOXYzine HCL 25 MG TABLET PO (20:17)
[2021-03-25 21:30] VITALS: BP 123/71; PULSE 87; RESP 16; TEMP 36.7; O2SAT 96
--- NOTE | 2021-03-25 22:11 | PM.EVENT ---
Event Note Date of Service: 03/25/21 Event Note: Per RN, 12 17:47 pt reported on 03/25/21 that they were experiencing chest pain, vitals wnl, no diaphoresis, no sharp pain, no radiating pain. However, pt reported they have not had a problem like that in some time. Ordered Chest XR, troponins, and EKG. All findings unremarkable.
[2021-03-26 08:13] VITALS: BP 114/63; PULSE 91; RESP 17; TEMP 36.7; O2SAT 97
[2021-03-26] MEDS: Sertraline HCL 50 MG TABLET PO (08:35)
[2021-03-26] MEDS: Fluticasone Propionate Nasal 16 GM SPRAY NOSTRIL-B (08:35)
[2021-03-26] MEDS: Amphetamine Mixed Salts 20 MG TABLET PO (08:35)
[2021-03-26] MEDS: Thiamine HCL 100 MG TABLET PO (08:35)
[2021-03-26] MEDS: LORazepam 1 MG TABLET PO ×3 (08:35→21:44)
[2021-03-26] MEDS: Lithium Carbonate ER 300 MG TABLET.ER 600 MG PO ×2 (08:35→21:43)
[2021-03-26] MEDS: Cholecalciferol (Vitamin D3) 25 MCG TABLET 50 MCG PO (08:35)
[2021-03-26] MEDS: Docusate Sodium 100 MG CAPSULE PO (08:38)
--- NOTE | 2021-03-26 14:57 | HO.PSYCHPN ---
Subjective Subjective Date of Service: 03/26/21 Reason For Visit: SI Interim History: pt seen with FRANCISCA cramer. informed of upcoming coverage changes. reports recent med changes have been helpful for sleep and SIBI mgmt. declines any other med changes at the moment. states she slept through the night for the first time since arriving in the hospital last night, and this morning was the first time she awakened without immediate dread. per staff, had a difficult day yesterday. had haldol and ativan IM combo at 1230 and slept for several hours. c/o CP at 5:30 and had labs, EKG, CXR, which did not determine any cause. it was presumed to be GI and she has maalox available PRN. bright affect evzahraa. slept after 10 pm - got melatonin, xanax, and atarax at HS. Mental Status Exam Mental Status Exam Narrative: Appearance: in milieu talking with group and doing art Behavior:cooperative psychomotor: no agitation or retardation noted Speech:clear, normal rate/rhythm/volume, spontaneous Thought process:linear Thought content:no signs of psychosis Mood: depressed Affect: constricted, normo-intense, non-labile SI: endorses SI/SIBI. HI:none expressed VH/AH:none expressed Delusions:none expressed Diagnostics Vital Signs (24Hr): Vital Signs - 24 hr 03/25/21 20:16 03/25/21 21:30 03/26/21 08:13 Temperature 98.1 F 98.1 F Pulse Rate 87 87 91 Respiratory Rate 16 17 Blood Pressure 123/71 123/71 114/63 Pulse Oximetry 96 97 BMI result Body Mass Index 32.4 Labs Results: 03/14/21 15:38 03/14/21 15:37 Labs: Laboratory Results - last 48 hr 03/25/21 03/25/21 18:49 18:49 D-Dimer High Sensitivty < 150 Troponin I High Sens < 3.5 Imaging Radiology Impressions: ITS Impressions Head CT 03/17/21 17:01 IMPRESSION: No CT evidence of intracranial bleed or hemorrhage. Chest X-Ray 03/25/21 19:03 IMPRESSION: Unremarkable examination. Medications Medications Current Medications Acetaminophen (Acetaminophen 325 Mg Tablet) 650 mg PO Q6H PRN PRN Reason: Headache/Pain Mild Scale (1-3) Last Admin: 03/22/21 20:27 Dose: 650 mg Documented by: Al Hydroxide/Mg Hydroxide (Magnesium Hydrox/Alum Hydrox 30 Ml Oral.Susp) 30 ml PO Q6H PRN PRN Reason: Heartburn/Nausea Alprazolam (Alprazolam 0.5 Mg Tablet) 1 mg PO TID PRN PRN Reason: self-injurious ideation Last Admin: 03/25/21 20:17 Dose: 1 mg Documented by: Amphetamine/Dextroamphetamine (Amphetamine Mixed Salts 20 Mg Tablet) 20 mg PO DAILY [facility] Last Admin: 03/26/21 08:35 Dose: 20 mg Documented by: Chlorpromazine HCl (Chlorpromazine Hcl 100 Mg Tablet) 100 mg PO Q4H PRN PRN Reason: agitation Last Admin: 03/24/21 06:09 Dose: 100 mg Documented by: Docusate Sodium (Docusate Sodium 100 Mg Capsule) 100 mg PO DAILY PRN PRN Reason: Constipation Last Admin: 03/26/21 08:38 Dose: 100 mg Documented by: Fluticasone Propionate (Fluticasone Propionate Nasal 16 Gm [place]) 1 - 2 spray NOSTRIL-B DAILY [facility] Last Admin: 03/26/21 08:35 Dose: 1 spray Documented by: Haloperidol Lactate (Haloperidol Lactate 5 Mg/Ml Vial) 5 mg IM Q4H PRN PRN Reason: risk of self-injurious behavio Last Admin: 03/25/21 12:19 Dose: 5 mg Documented by: Hydroxyzine HCl (Hydroxyzine Hcl 25 Mg Tablet) 25 mg PO BEDTIME PRN PRN Reason: Anxiety Last Admin: 03/25/21 20:17 Dose: 25 mg Documented by: [place] Carbonate ([place] Carbonate Er 300 Mg Tablet.Er) 600 mg PO BID [facility] Last Admin: 03/26/21 08:35 Dose: 600 mg Documented by: Lorazepam (Lorazepam 1 Mg Tablet) 1 mg PO BID [facility] Last Admin: 03/26/21 08:35 Dose: 1 mg Documented by: Lorazepam (Lorazepam 1 Mg Tablet) 1 mg PO DAILY PRN PRN Reason: agitation Last Admin: 03/23/21 13:02 Dose: 1 mg Documented by: Lorazepam (Lorazepam 2 Mg/Ml Vial) 2 mg IM Q4H PRN PRN Reason: risk of self-injurious behavio Last Admin: 03/25/21 12:19 Dose: 2 mg Documented by: Magnesium Hydroxide (Milk Of Magnesia 30 Ml Oral.Susp) 30 ml PO DAILY PRN PRN Reason: Constipation Melatonin (Melatonin 3 Mg Tablet) 6 mg PO BEDTIME PRN PRN Reason: sleep Last Admin: 03/25/21 20:15 Dose: 6 mg Documented by: Nicotine Polacrilex (Nicotine Polacrilex 2 Mg Gum) 2 mg BUCCAL Q1H PRN PRN Reason: Nicotine Cravings Last Admin: 03/24/21 15:57 Dose: 2 mg Documented by: Patient Own Medication ( Desvenlafaxine Er 100 Mg) 1 each PO DAILY [facility] Last Admin: 03/26/21 08:35 Dose: 1 each Documented by: Prazosin HCl (Prazosin Hcl 5 Mg Capsule) 10 mg PO BEDTIME [facility]; Protocol Last Admin: 03/25/21 20:16 Dose: 10 mg Documented by: Quetiapine Fumarate (Quetiapine Fumarate 50 Mg Tablet) 50 mg PO BID PRN PRN Reason: mod-severe anxiety/ agitation Sertraline HCl (Sertraline Hcl 50 Mg Tablet) 50 mg PO DAILY [facility] Last Admin: 03/26/21 08:35 Dose: 50 mg Documented by: Thiamine HCl (Thiamine Hcl 100 Mg Tablet) 100 mg PO DAILY [facility] Last Admin: 03/26/21 08:35 Dose: 100 mg Documented by: Trazodone HCl (Trazodone Hcl 100 Mg Tablet) 300 mg PO BEDTIME [facility] Last Admin: 03/25/21 20:16 Dose: 300 mg Documented by: Trazodone HCl (Trazodone Hcl 50 Mg Tablet) 50 mg PO BEDTIME PRN PRN Reason: Insomnia Last Admin: 03/22/21 00:55 Dose: 50 mg Documented by: Vitamin D (Cholecalciferol (Vitamin D3) 25 Mcg Tablet) 50 mcg PO DAILY [facility] Last Admin: 03/26/21 08:35 Dose: 50 mcg Documented by: Allergies Allergies Allergy/AdvReac Type Severity Reaction Status Date / Time Sulfa (Sulfonamide Allergy Unknown HIVES Verified 03/15/21 14:13 Antibiotics) [SULFA (SULFONAMIDE ANTIBIOTICS)] sulfamethoxazole Allergy Unknown HIVES Verified 03/15/21 14:13 [From BACTRIM] trimethoprim [From BACTRIM] Allergy Unknown HIVES Verified 03/15/21 14:13 Assessment & Plan Assessment & Plan (1) PTSD (post-traumatic stress disorder): Status: Acute Code(s): F43.10 - Post-traumatic stress disorder, unspecified (2) MDD (major depressive disorder), recurrent severe, without psychosis: Status: Acute Code(s): F33.2 - Major depressive disorder, recurrent severe without psychotic features Assessment and Plan: continue outpt meds. admitted to [facility]3 for safety and containment. 1:1 after head banging and reportedly wrapping sheets around neck in shower. 03/17 ativan dosing changed from 1 TID to 1 BID and 1 PRN daily, per pt request. med changes discussed at length 03/18, 03/19. trying to obtain genetic testing report from medical records. zoloft 50 mg daily in addition to pristiq as of 03/20. thorazine 100 mg Q4H PRN added 03/23 for impulses to self-harm. IMs of ativan and haldol added PRN imminent self-harm as of 03/24. PRNs of xanax 1 mg added 03/25 for not quite imminent self-harm. observe for stability, keep safe. I spent minutes with the patient and/or on the patient floor today, greater than?50% of which was spent counseling/coordinating care. Reason for contiued inpatient stay Substantial Risk for: harm to self, inability to function and rapid decompensation
[2021-03-26] MEDS: Milk of Magnesia 30 ML ORAL.SUSP PO (19:16)
[2021-03-26] MEDS: traZODone HCL 100 MG TABLET 300 MG PO (21:43)
[2021-03-26 21:44] VITALS: BP 153/73; PULSE 98
[2021-03-26] MEDS: Melatonin 3 MG TABLET 6 MG PO (21:44)
[2021-03-26] MEDS: Prazosin HCL 5 MG CAPSULE 10 MG PO (21:44)
[2021-03-26] MEDS: hydrOXYzine HCL 25 MG TABLET PO (21:44)
[2021-03-26 21:48] VITALS: TEMP 37; O2SAT 96
[2021-03-27] MEDS: Fluticasone Propionate Nasal 16 GM SPRAY NOSTRIL-B (08:39)
[2021-03-27] MEDS: Lithium Carbonate ER 300 MG TABLET.ER 600 MG PO ×2 (08:39→21:40)
[2021-03-27] MEDS: Amphetamine Mixed Salts 20 MG TABLET PO (08:40)
[2021-03-27] MEDS: Cholecalciferol (Vitamin D3) 25 MCG TABLET 50 MCG PO (08:40)
[2021-03-27] MEDS: Sertraline HCL 50 MG TABLET PO (08:40)
[2021-03-27] MEDS: LORazepam 1 MG TABLET PO ×3 (08:40→21:41)
[2021-03-27] MEDS: Thiamine HCL 100 MG TABLET PO (08:40)
[2021-03-27] MEDS: Docusate Sodium 100 MG CAPSULE PO (08:45)
--- NOTE | 2021-03-27 08:48 | P.PNPSI_ITS ---
Subjective Subjective Date of Service: 03/27/21 Reason For Visit: SI Subjective Notes: Conditional Voluntary Interim History: Patient was seen and reviewed in rounds today. She continues to be on one-to-one level of observation. Continues to have depression and an xiety. Continues to be hopeless with some suicidal ideations but feels safe on the unit. She has been mostly med compliant. No complaints or side effects except for constipation which has been addressed, pending results. Eating and sleeping adequately. No changes were made today Medication Compliance: Yes Side effects from medications: No Review of Systems Review of Systems Constitutional : No Fever, No Chills ENT/Mouth : No Ear Pain, No Nasal Congestion, No sore throat Eyes: No Eye Pain, No Swelling, No Redness Cardiovascular : No Chest Pain, No SOB Respiratory : No Cough, No Sputum, No Dyspnea Gastrointestinal : No Nausea, No Vomiting, No Diarrhea, No Hematochezia, No Melena Genitourinary : No Dysuria, No Urinary Frequency, No Hematuria Musculoskeletal : No Myalgias Skin : No Skin Lesions, No rash Neuro : No Weakness, No Numbness, No Paresthesias, No Dizziness, No Headache Psych : positive Anxiety, positive Depression, positive SI no HI Heme/Lymph: No Lymphadenopathy Endocrine : No Polyuria, No Polydipsia All other systems reviewed and are negative Mental Status Exam Mental Status Exam Narrative: In today's visit she is alert, oriented and pleasant. Normal speech. Moderate eye contact. Affect is appropriate and constricted. Moderate anxiety present. Admits to having suicidal ideations but feels safe on the unit. Cognitively intact. Judgment is intact Diagnostics Vital Signs (24Hr): Vital Signs - 24 hr 03/26/21 21:44 03/26/21 21:48 Temperature 98.6 F Pulse Rate 98 Blood Pressure 153/73 H Pulse Oximetry 96 BMI result Body Mass Index 32.4 Labs Results: 03/14/21 15:38 03/14/21 15:37 Labs: Laboratory Results - last 48 hr 03/25/21 03/25/21 18:49 18:49 D-Dimer High Sensitivty < 150 Troponin I High Sens < 3.5 Imaging Radiology Impressions: ITS Impressions Head CT 03/17/21 17:01 IMPRESSION: No CT evidence of intracranial bleed or hemorrhage. Chest X-Ray 03/25/21 19:03 IMPRESSION: Unremarkable examination. Medications Medications Current Medications Acetaminophen (Acetaminophen 325 Mg Tablet) 650 mg PO Q6H PRN PRN Reason: Headache/Pain Mild Scale (1-3) Last Admin: 03/22/21 20:27 Dose: 650 mg Documented by: Al Hydroxide/Mg Hydroxide (Magnesium Hydrox/Alum Hydrox 30 Ml Oral.Susp) 30 ml PO Q6H PRN PRN Reason: Heartburn/Nausea Alprazolam (Alprazolam 0.5 Mg Tablet) 1 mg PO TID PRN PRN Reason: self-injurious ideation Last Admin: 03/25/21 20:17 Dose: 1 mg Documented by: Amphetamine/Dextroamphetamine (Amphetamine Mixed Salts 20 Mg Tablet) 20 mg PO D AILY [facility] Last Admin: 03/27/21 08:40 Dose: 20 mg Documented by: Chlorpromazine HCl (Chlorpromazine Hcl 100 Mg Tablet) 100 mg PO Q4H PRN PRN Reason: agitation Last Admin: 03/24/21 06:09 Dose: 100 mg Documented by: Docusate Sodium (Docusate Sodium 100 Mg Capsule) 100 mg PO DAILY PRN PRN Reason: Constipation Last Admin: 03/26/21 08:38 Dose: 100 mg Documented by: Fluticasone Propionate (Fluticasone Propionate Nasal 16 Gm [place]) 1 - 2 spray NOSTRIL-B DAILY [facility] Last Admin: 03/27/21 08:39 Dose: 1 spray Documented by: Haloperidol Lactate (Haloperidol Lactate 5 Mg/Ml Vial) 5 mg IM Q4H PRN PRN Reason: risk of self-injurious behavio Last Admin: 03/25/21 12:19 Dose: 5 mg Documented by: Hydroxyzine HCl (Hydroxyzine Hcl 25 Mg Tablet) 25 mg PO BEDTIME PRN PRN Reason: Anxiety Last Admin: 03/26/21 21:44 Dose: 25 mg Documented by: [place] Carbonate ([place] Carbonate Er 300 Mg Tablet.Er) 600 mg PO BID [facility] Last Admin: 03/27/21 08:39 Dose: 600 mg Documented by: Lorazepam (Lorazepam 1 Mg Tablet) 1 mg PO BID [facility] Last Admin: 03/27/21 08:40 Dose: 1 mg Documented by: Lorazepam (Lorazepam 1 Mg Tablet) 1 mg PO DAILY PRN PRN Reason: agitation Last Admin: 03/26/21 21:44 Dose: 1 mg Documented by: Lorazepam (Lorazepam 2 Mg/Ml Vial) 2 mg IM Q4H PRN PRN Reason: risk of self-injurious behavio Last Admin: 03/25/21 12:19 Dose: 2 mg Documented by: Magnesium Hydroxide (Milk Of Magnesia 30 Ml Oral.Susp) 30 ml PO DAILY PRN PRN Reason: Constipation Last Admin: 03/26/21 19:16 Dose: 30 ml Documented by: Melatonin (Melatonin 3 Mg Tablet) 6 mg PO BEDTIME PRN PRN Reason: sleep Last Admin: 03/26/21 21:44 Dose: 6 mg Documented by: Nicotine Polacrilex (Nicotine Polacrilex 2 Mg Gum) 2 mg BUCCAL Q1H PRN PRN Reason: Nicotine Cravings Last Admin: 03/24/21 15:57 Dose: 2 mg Documented by: Patient Own Medication ( Desvenlafaxine Er 100 Mg) 1 each PO DAILY [facility] Last Admin: 03/27/21 08:39 Dose: 1 each Documented by: Prazosin HCl (Prazosin Hcl 5 Mg Capsule) 10 mg PO BEDTIME [facility]; Protocol Last Admin: 03/26/21 21:44 Dose: 10 mg Documented by: Quetiapine Fumarate (Quetiapine Fumarate 50 Mg Tablet) 50 mg PO BID PRN PRN Reason: mod-severe anxiety/ agitation Sertraline HCl (Sertraline Hcl 50 Mg Tablet) 50 mg PO DAILY [facility] Last Admin: 03/27/21 08:40 Dose: 50 mg Documented by: Thiamine HCl (Thiamine Hcl 100 Mg Tablet) 100 mg PO DAILY [facility] Last Admin: 03/27/21 08:40 Dose: 100 mg Documented by: Trazodone HCl (Trazodone Hcl 100 Mg Tablet) 300 mg PO BEDTIME [facility] Last Admin: 03/26/21 21:43 Dose: 300 mg Documented by: Trazodone HCl (Trazodone Hcl 50 Mg Tablet) 50 mg PO BEDTIME PRN PRN Reason: Insomnia Last Admin: 03/22/21 00:55 Dose: 50 mg Documented by: Vitamin D (Cholecalciferol (Vitamin D3) 25 Mcg Tablet) 50 mcg PO DAILY [facility] Last Admin: 03/27/21 08:40 Dose: 50 mcg Documented by: Allergies Allergies Allergy/AdvReac Type Severity Reaction Status Date / Time Sulfa (Sulfonamide Allergy Unknown HIVES Verified 03/15/21 14:13 Antibiotics) [SULFA (SULFONAMIDE ANTIBIOTICS)] sulfamethoxazole Allergy Unknown HIVES Verified 03/15/21 14:13 [From BACTRIM] trimethoprim [From BACTRIM] Allergy Unknown HIVES Verified 03/15/21 14:13 Assessment & Plan Assessment & Plan (1) PTSD (post-traumatic stress disorder): Status: Acute Code(s): F43.10 - Post-traumatic stress disorder, unspecified (2) MDD (major depressive disorder), recurrent severe, without psychosis: Status: Acute Code(s): F33.2 - Major depressive disorder, recurrent severe without psychotic features Assessment and Plan: continue outpt meds. admitted to [facility]3 for safety and containment. 1:1 after head banging and reportedly wrapping sheets around neck in shower. 03/17 ativan dosing changed from 1 TID to 1 BID and 1 PRN daily, per pt request. med changes discussed at length 03/18, 03/19. trying to obtain genetic testing report from medical records. zoloft 50 mg daily in addition to pristiq as of 03/20. thorazine 100 mg Q4H PRN added 03/23 for impulses to self-harm. IMs of ativan and haldol added PRN imminent self-harm as of 03/24. PRNs of xanax 1 mg added 03/25 for not quite imminent self-harm. observe for stability, keep safe. 03/27: Continue current regimen and plans with no changes I spent minutes with the patient and/or on the patient floor today, greater than?50% of which was spent counseling/coordinating care. Reason for contiued inpatient stay Substantial Risk for: harm to self
[2021-03-27] MEDS: Lactulose 20 GM/30 ML SOLUTION 30 GM PO ×2 (10:45→20:20)
[2021-03-27] MEDS: Haloperidol Lactate 5 MG/ML VIAL IM (11:53)
[2021-03-27] MEDS: LORazepam 2 MG/ML VIAL IM (11:53)
[2021-03-27] MEDS: Milk of Magnesia 30 ML ORAL.SUSP PO (20:14)
[2021-03-27] MEDS: traZODone HCL 100 MG TABLET 300 MG PO (21:40)
[2021-03-27] MEDS: hydrOXYzine HCL 25 MG TABLET PO (21:41)
[2021-03-27] MEDS: Melatonin 3 MG TABLET 6 MG PO (21:41)
[2021-03-27 21:42] VITALS: BP 118/71; PULSE 94
[2021-03-27] MEDS: Prazosin HCL 5 MG CAPSULE 10 MG PO (21:42)
[2021-03-27 21:46] VITALS: BP 118/71; PULSE 94; TEMP 36.9; O2SAT 96
[2021-03-28] MEDS: Cholecalciferol (Vitamin D3) 25 MCG TABLET 50 MCG PO (08:19)
[2021-03-28] MEDS: Lithium Carbonate ER 300 MG TABLET.ER 600 MG PO ×2 (08:19→22:21)
[2021-03-28] MEDS: Docusate Sodium 100 MG CAPSULE PO (08:20)
[2021-03-28] MEDS: Thiamine HCL 100 MG TABLET PO (08:20)
[2021-03-28] MEDS: LORazepam 1 MG TABLET PO ×2 (08:20→22:33)
[2021-03-28] MEDS: Amphetamine Mixed Salts 20 MG TABLET PO (08:20)
[2021-03-28] MEDS: Sertraline HCL 50 MG TABLET PO (08:20)
[2021-03-28] MEDS: Lactulose 20 GM/30 ML SOLUTION 30 GM PO ×2 (08:21→22:24)
[2021-03-28] MEDS: Fluticasone Propionate Nasal 16 GM SPRAY NOSTRIL-B (08:21)
--- NOTE | 2021-03-28 08:27 | HO.PSYCHPN ---
Subjective Subjective Date of Service: 03/28/21 Reason For Visit: SI Subjective Notes: Conditional Voluntary Interim History: Patient was seen and discussed in rounds today. Records were reviewed. She has been stable blood continues to be on one-to-one level of observations. Yesterday she did have some urges to self-harm but requested for p.r.n. Haldol/Ativan IM which was very helpful. She continues to be constipated and the milk of Mag has not been that helpful and the addition of lactulose was made yesterday. We discussed options. She will stay with the lactulose for another day and if by tomorrow she has not had a bowel movement we will use a Dulcolax suppository. Eating and sleeping adequately. No other complaints or changes today. Review of Systems Review of Systems Constipation Yes all other systems are reviewed and are negative Diagnostics Vital Signs (24Hr): Vital Signs - 24 hr 03/27/21 21:42 03/27/21 21:46 Temperature 98.4 F Pulse Rate 94 94 Blood Pressure 118/71 118/71 Pulse Oximetry 96 BMI result Body Mass Index 32.4 Labs Results: 03/14/21 15:38 03/14/21 15:37 Imaging Radiology Impressions: ITS Impressions Head CT 03/17/21 17:01 IMPRESSION: No CT evidence of intracranial bleed or hemorrhage. Chest X-Ray 03/25/21 19:03 IMPRESSION: Unremarkable examination. Medications Medications Current Medications Acetaminophen (Acetaminophen 325 Mg Tablet) 650 mg PO Q6H PRN PRN Reason: Headache/Pain Mild Scale (1-3) Last Admin: 03/22/21 20:27 Dose: 650 mg Documented by: Al Hydroxide/Mg Hydroxide (Magnesium Hydrox/Alum Hydrox 30 Ml Oral.Susp) 30 ml PO Q6H PRN PRN Reason: Heartburn/Nausea Alprazolam (Alprazolam 0.5 Mg Tablet) 1 mg PO TID PRN PRN Reason: self-injurious ideation Last Admin: 03/25/21 20:17 Dose: 1 mg Documented by: Amphetamine/Dextroamphetamine (Amphetamine Mixed Salts 20 Mg Tablet) 20 mg PO DAILY [facility] Last Admin: 03/28/21 08:20 Dose: 20 mg Documented by: Chlorpromazine HCl (Chlorpromazine Hcl 100 Mg Tablet) 100 mg PO Q4H PRN PRN Reason: agitation Last Admin: 03/24/21 06:09 Dose: 100 mg Documented by: Docusate Sodium (Docusate Sodium 100 Mg Capsule) 100 mg PO DAILY PRN PRN Reason: Constipation Last Admin: 03/28/21 08:20 Dose: 100 mg Documented by: Fluticasone Propionate (Fluticasone Propionate Nasal 16 Gm [place]) 1 - 2 spray NOSTRIL-B DAILY [facility] Last Admin: 03/28/21 08:21 Dose: 1 spray Documented by: Haloperidol Lactate (Haloperidol Lactate 5 Mg/Ml Vial) 5 mg IM Q4H PRN PRN Reason: risk of self-injurious behavio Last Admin: 03/27/21 11:53 Dose: 5 mg Documented by: Hydroxyzine HCl (Hydroxyzine Hcl 25 Mg Tablet) 25 mg PO BEDTIME PRN PRN Reason: Anxiety Last Admin: 03/27/21 21:41 Dose: 25 mg Documented by: Lactulose (Lactulose 20 Gm/30 Ml Solution) 30 gm PO BID PRN PRN Reason: Constipation Last Admin: 03/28/21 08:21 Dose: 30 gm Documented by: [place] Carbonate ([place] Carbonate Er 300 Mg Tablet.Er) 600 mg PO BID [facility] Last Admin: 03/28/21 08:19 Dose: 600 mg Documented by: Lorazepam (Lorazepam 1 Mg Tablet) 1 mg PO BID [facility] Last Admin: 03/28/21 08:20 Dose: 1 mg Documented by: Lorazepam (Lorazepam 1 Mg Tablet) 1 mg PO DAILY PRN PRN Reason: agitation Last Admin: 03/27/21 21:41 Dose: 1 mg Documented by: Lorazepam (Lorazepam 2 Mg/Ml Vial) 2 mg IM Q4H PRN PRN Reason: risk of self-injurious behavio Last Admin: 03/27/21 11:53 Dose: 2 mg Documented by: Magnesium Hydroxide (Milk Of Magnesia 30 Ml Oral.Susp) 30 ml PO DAILY PRN PRN Reason: Constipation Last Admin: 03/27/21 20:14 Dose: 30 ml Documented by: Melatonin (Melatonin 3 Mg Tablet) 6 mg PO BEDTIME PRN PRN Reason: sleep Last Admin: 03/27/21 21:41 Dose: 6 mg Documented by: Nicotine Polacrilex (Nicotine Polacrilex 2 Mg Gum) 2 mg BUCCAL Q1H PRN PRN Reason: Nicotine Cravings Last Admin: 03/24/21 15:57 Dose: 2 mg Documented by: Patient Own Medication ( Desvenlafaxine Er 100 Mg) 1 each PO DAILY [facility] Last Admin: 03/28/21 08:21 Dose: 1 each Documented by: Prazosin HCl (Prazosin Hcl 5 Mg Capsule) 10 mg PO BEDTIME [facility]; Protocol Last Admin: 03/27/21 21:42 Dose: 10 mg Documented by: Quetiapine Fumarate (Quetiapine Fumarate 50 Mg Tablet) 50 mg PO BID PRN PRN Reason: mod-severe anxiety/ agitation Sertraline HCl (Sertraline Hcl 50 Mg Tablet) 50 mg PO DAILY [facility] Last Admin: 03/28/21 08:20 Dose: 50 mg Documented by: Thiamine HCl (Thiamine Hcl 100 Mg Tablet) 100 mg PO DAILY [facility] Last Admin: 03/28/21 08:20 Dose: 100 mg Documented by: Trazodone HCl (Trazodone Hcl 100 Mg Tablet) 300 mg PO BEDTIME [facility] Last Admin: 03/27/21 21:40 Dose: 300 mg Documented by: Trazodone HCl (Trazodone Hcl 50 Mg Tablet) 50 mg PO BEDTIME PRN PRN Reason: Insomnia Last Admin: 03/22/21 00:55 Dose: 50 mg Documented by: Vitamin D (Cholecalciferol (Vitamin D3) 25 Mcg Tablet) 50 mcg PO DAILY [facility] Last Admin: 03/28/21 08:19 Dose: 50 mcg Documented by: Allergies Allergies Allergy/AdvReac Type Severity Reaction Status Date / Time Sulfa (Sulfonamide Allergy Unknown HIVES Verified 03/15/21 14:13 Antibiotics) [SULFA (SULFONAMIDE ANTIBIOTICS)] sulfamethoxazole Allergy Unknown HIVES Verified 03/15/21 14:13 [From BACTRIM] trimethoprim [From BACTRIM] Allergy Unknown HIVES Verified 03/15/21 14:13 Assessment & Plan Assessment & Plan (1) PTSD (post-traumatic stress disorder): Status: Acute Code(s): F43.10 - Post-traumatic stress disorder, unspecified (2) MDD (major depressive disorder), recurrent severe, without psychosis: Status: Acute Code(s): F33.2 - Major depressive disorder, recurrent severe without psychotic features Assessment and Plan: continue outpt meds. admitted to for safety and containment. 1:1 after head banging and reportedly wrapping sheets around neck in shower. 03/17 ativan dosing changed from 1 TID to 1 BID and 1 PRN daily, per pt request. med changes discussed at length 03/18, 03/19. trying to obtain genetic testing report from medical records. zoloft 50 mg daily in addition to pristiq as of 03/20. thorazine 100 mg Q4H PRN added 03/23 for impulses to self-harm. IMs of ativan and haldol added PRN imminent self-harm as of 03/24. PRNs of xanax 1 mg added 03/25 for not quite imminent self-harm. observe for stability, keep safe. 03/27: Continue current regimen and plans with no changes 03/28: Continue current regimen and plans I spent minutes with the patient and/or on the patient floor today, greater than?50% of which was spent counseling/coordinating care. Reason for contiued inpatient stay Substantial Risk for: other
[2021-03-28] MEDS: ALPRAZolam 0.5 MG TABLET 1 MG PO ×2 (15:22→22:33)
[2021-03-28] MEDS: Melatonin 3 MG TABLET 6 MG PO (22:21)
[2021-03-28] MEDS: hydrOXYzine HCL 25 MG TABLET PO (22:21)
[2021-03-28] MEDS: traZODone HCL 100 MG TABLET 300 MG PO (22:21)
[2021-03-28] MEDS: Milk of Magnesia 30 ML ORAL.SUSP PO (22:23)
[2021-03-28 22:28] VITALS: BP 121/70; PULSE 80
[2021-03-28] MEDS: Prazosin HCL 5 MG CAPSULE 10 MG PO (22:28)
[2021-03-28 22:30] VITALS: TEMP 36.7; O2SAT 99
[2021-03-29] MEDS: Lithium Carbonate ER 300 MG TABLET.ER 600 MG PO ×2 (09:08→21:35)
[2021-03-29] MEDS: Cholecalciferol (Vitamin D3) 25 MCG TABLET 50 MCG PO (09:08)
[2021-03-29] MEDS: Thiamine HCL 100 MG TABLET PO (09:08)
[2021-03-29] MEDS: Fluticasone Propionate Nasal 16 GM SPRAY NOSTRIL-B (09:08)
[2021-03-29] MEDS: LORazepam 1 MG TABLET PO ×3 (09:08→21:34)
[2021-03-29] MEDS: Amphetamine Mixed Salts 20 MG TABLET PO (09:08)
[2021-03-29] MEDS: Sertraline HCL 50 MG TABLET PO (09:08)
[2021-03-29 09:11] VITALS: BP 118/71; PULSE 89; RESP 16; TEMP 36.7; O2SAT 95
--- NOTE | 2021-03-29 09:58 | P.PNPSI_ITS ---
Subjective Subjective Date of Service: 03/29/21 Reason For Visit: SI Subjective Notes: Conditional Voluntary Interim History: Patient was seen in rounds and discussed today. Records were reviewed. She continues to have some difficult times with head banging, in the shower. She is using her PRNs effectively. No complaints or side effects. Eating and sleeping adequately. She continues to be constipated after 2 days of lactulose. I will order 300 mL of Mag citrate today. Medication Compliance: Yes Side effects from medications: No Review of Systems Constipation Review of Systems Review of Systems Constipation Yes all other systems are reviewed and are negative Mental Status Exam Mental Status Exam Narrative: In today's visit she is alert, oriented and pleasant. Normal speech. Moderate eye contact. Affect is appropriate and constricted. Moderate anxiety present. Admits to having suicidal ideations but feels safe on the unit. Cognitively intact. Judgment is intact Diagnostics Vital Signs (24Hr): Vital Signs - 24 hr 03/28/21 22:28 03/28/21 22:30 03/29/21 09:11 Temperature 98.0 F 98.1 F Pulse Rate 80 89 Respiratory Rate 16 Blood Pressure 121/70 118/71 Pulse Oximetry 99 95 BMI result Body Mass Index 32.4 Labs Results: 03/14/21 15:38 03/14/21 15:37 Imaging Radiology Impressions: ITS Impressions Head CT 03/17/21 17:01 IMPRESSION: No CT evidence of intracranial bleed or hemorrhage. Chest X-Ray 03/25/21 19:03 IMPRESSION: Unremarkable examination. Medications Medications Current Medications Acetaminophen (Acetaminophen 325 Mg Tablet) 650 mg PO Q6H PRN PRN Reason: Headache/Pain Mild Scale (1-3) Last Admin: 03/22/21 20:27 Dose: 650 mg Documented by: Al Hydroxide/Mg Hydroxide (Magnesium Hydrox/Alum Hydrox 30 Ml Oral.Susp) 30 ml PO Q6H PRN PRN Reason: Heartburn/Nausea Alprazolam (Alprazolam 0.5 Mg Tablet) 1 mg PO TID PRN PRN Reason: self-injurious ideation Last Admin: 03/28/21 22:33 Dose: 1 mg Documented by: Amphetamine/Dextroamphetamine (Amphetamine Mixed Salts 20 Mg Tablet) 20 mg PO DAILY [facility] Last Admin: 03/29/21 09:08 Dose: 20 mg Documented by: Chlorpromazine HCl (Chlorpromazine Hcl 100 Mg Tablet) 100 mg PO Q4H PRN PRN Reason: agitation Last Admin: 03/24/21 06:09 Dose: 100 mg Documented by: Docusate Sodium (Docusate Sodium 100 Mg Capsule) 100 mg PO DAILY PRN PRN Reason: Constipation Last Admin: 03/28/21 08:20 Dose: 100 mg Documented by: Fluticasone Propionate (Fluticasone Propionate Nasal 16 Gm [place]) 1 - 2 spray NOSTRIL-B DAILY [facility] Last Admin: 03/29/21 09:08 Dose: 1 spray Documented by: Haloperidol Lactate (Haloperidol Lactate 5 Mg/Ml Vial) 5 mg IM Q4H PRN PRN Reason: risk of self-injurious behavio Last Admin: 03/27/21 11:53 Dose: 5 mg Documented by: Hydroxyzine HCl (Hydroxyzine Hcl 25 Mg Tablet) 25 mg PO BEDTIME PRN PRN Reason: Anxiety Last Admin: 03/28/21 22:21 Dose: 25 mg Documented by: Lactulose (Lactulose 20 Gm/30 Ml Solution) 30 gm PO BID PRN PRN Reason: Constipation Last Admin: 03/28/21 22:24 Dose: 30 gm Documented by: [place] Carbonate ([place] Carbonate Er 300 Mg Tablet.Er) 600 mg PO BID [facility] Last Admin: 03/29/21 09:08 Dose: 600 mg Documented by: Lorazepam (Lorazepam 2 Mg/Ml Vial) 2 mg IM Q4H PRN PRN Reason: risk of self-injurious behavio Last Admin: 03/27/21 11:53 Dose: 2 mg Documented by: Lorazepam (Lorazepam 1 Mg Tablet) 1 mg PO BID [facility] Last Admin: 03/29/21 09:08 Dose: 1 mg Documented by: Lorazepam (Lorazepam 1 Mg Tablet) 1 mg PO DAILY PRN PRN Reason: Anxiety Magnesium Hydroxide (Milk Of Magnesia 30 Ml Oral.Susp) 30 ml PO DAILY PRN PRN Reason: Constipation Last Admin: 03/28/21 22:23 Dose: 30 ml Documented by: Melatonin (Melatonin 3 Mg Tablet) 6 mg PO BEDTIME PRN PRN Reason: sleep Last Admin: 03/28/21 22:21 Dose: 6 mg Documented by: Nicotine Polacrilex (Nicotine Polacrilex 2 Mg Gum) 2 mg BUCCAL Q1H PRN PRN Reason: Nicotine Cravings Last Admin: 03/24/21 15:57 Dose: 2 mg Documented by: Patient Own Medication ( Desvenlafaxine Er 100 Mg) 1 each PO DAILY [facility] Last Admin: 03/29/21 09:09 Dose: 1 each Documented by: Prazosin HCl (Prazosin Hcl 5 Mg Capsule) 10 mg PO BEDTIME [facility]; Protocol Last Admin: 03/28/21 22:28 Dose: 10 mg Documented by: Quetiapine Fumarate (Quetiapine Fumarate 50 Mg Tablet) 50 mg PO BID PRN PRN Reason: mod-severe anxiety/ agitation Sertraline HCl (Sertraline Hcl 50 Mg Tablet) 50 mg PO DAILY [facility] Last Admin: 03/29/21 09:08 Dose: 50 mg Documented by: Thiamine HCl (Thiamine Hcl 100 Mg Tablet) 100 mg PO DAILY [facility] Last Admin: 03/29/21 09:08 Dose: 100 mg Documented by: Trazodone HCl (Trazodone Hcl 100 Mg Tablet) 300 mg PO BEDTIME [facility] Last Admin: 03/28/21 22:21 Dose: 300 mg Documented by: Trazodone HCl (Trazodone Hcl 50 Mg Tablet) 50 mg PO BEDTIME PRN PRN Reason: Insomnia Last Admin: 03/22/21 00:55 Dose: 50 mg Documented by: Vitamin D (Cholecalciferol (Vitamin D3) 25 Mcg Tablet) 50 mcg PO DAILY [facility] Last Admin: 03/29/21 09:08 Dose: 50 mcg Documented by: Allergies Allergies Allergy/AdvReac Type Severity Reaction Status Date / Time Sulfa (Sulfonamide Allergy Unknown HIVES Verified 03/15/21 14:13 Antibiotics) [SULFA (SULFONAMIDE ANTIBIOTICS)] sulfamethoxazole Allergy Unknown HIVES Verified 03/15/21 14:13 [From BACTRIM] trimethoprim [From BACTRIM] Allergy Unknown HIVES Verified 03/15/21 14:13 Assessment & Plan Assessment & Plan (1) PTSD (post-traumatic stress disorder): Status: Acute Code(s): F43.10 - Post-traumatic stress disorder, unspecified (2) MDD (major depressive disorder), recurrent severe, without psychosis: Status: Acute Code(s): F33.2 - Major depressive disorder, recurrent severe without psychotic features Assessment and Plan: continue outpt meds. admitted to for safety and containment. 1:1 after head banging and reportedly wrapping sheets around neck in shower. 03/17 ativan dosing changed from 1 TID to 1 BID and 1 PRN daily, per pt request. med changes discussed at length 03/18, 03/19. trying to obtain genetic testing report from medical records. zoloft 50 mg daily in addition to pristiq as of 03/20. thorazine 100 mg Q4H PRN added 03/23 for impulses to self-harm. IMs of ativan and haldol added PRN imminent self-harm as of 03/24. PRNs of xanax 1 mg added 03/25 for not quite imminent self-harm. observe for stability, keep safe. 03/27: Continue current regimen and plans with no changes 03/28: Continue current regimen and plans 03/29: Continue current regimen and plans. Administration of Mag citrate today I spent minutes with the patient and/or on the patient floor today, greater than?50% of which was spent counseling/coordinating care. Reason for contiued inpatient stay Substantial Risk for: other
[2021-03-29] MEDS: Magnesium Citrate 300 ML SOLUTION PO (11:04)
[2021-03-29 18:00] VITALS: BP 118/55; PULSE 87; RESP 18; TEMP 36.7; O2SAT 97
[2021-03-29 21:34] VITALS: BP 132/75; PULSE 92
[2021-03-29] MEDS: Prazosin HCL 5 MG CAPSULE 10 MG PO (21:34)
[2021-03-29] MEDS: traZODone HCL 100 MG TABLET 300 MG PO (21:35)
[2021-03-29] MEDS: hydrOXYzine HCL 25 MG TABLET PO (21:35)
[2021-03-29] MEDS: ALPRAZolam 0.5 MG TABLET 1 MG PO (21:35)
[2021-03-29] MEDS: Melatonin 3 MG TABLET 6 MG PO (21:35)
[2021-03-30] MEDS: traZODone HCL 50 MG TABLET PO (03:32)
[2021-03-30] MEDS: Fluticasone Propionate Nasal 16 GM SPRAY NOSTRIL-B (08:31)
[2021-03-30] MEDS: Thiamine HCL 100 MG TABLET PO (08:31)
[2021-03-30] MEDS: Amphetamine Mixed Salts 20 MG TABLET PO (08:31)
[2021-03-30] MEDS: Lithium Carbonate ER 300 MG TABLET.ER 600 MG PO ×2 (08:31→21:57)
[2021-03-30] MEDS: Sertraline HCL 50 MG TABLET PO (08:31)
[2021-03-30] MEDS: Cholecalciferol (Vitamin D3) 25 MCG TABLET 50 MCG PO (08:31)
[2021-03-30] MEDS: LORazepam 1 MG TABLET PO ×3 (08:31→21:57)
[2021-03-30] MEDS: ALPRAZolam 0.5 MG TABLET 1 MG PO (10:34)
--- NOTE | 2021-03-30 15:02 | P.PNPSI_ITS ---
Subjective Subjective Date of Service: 03/30/21 Reason For Visit: SI Interim History: pt seen with FRANCISCA cramer in pt's room. pt reported a couple of difficult times over the w/e. once she asked for haldol/ativan IM on tuesday 03/27. she did some head banging evening of 03/28. she acknowledges she feels different now than before, but not necessarily better. she feels apathy. discuss moving forward from here now that we are past the date of particular distress (Xmas). she has been not helped recently by the things that usually help her - usual outpt care, PHP, DBT skills. she reports great success with [facility] program at [place], which she credits for keeping her out of the [facility] for years. she would like to go back there but it does not seem possible due to COVID restrictions. bela ESPINOSA will investigate residential DBT programs for her. no other complaints or requests. discuss recent bout of constipation, senna/colace combo Rx'ed BID. per staff, ok Xmas. 03/28 gi head-banging in shower. BM s/p mag citrate. endorsing SI. denies AVH. Mental Status Exam Mental Status Exam Narrative: Appearance: in milieu talking with group and doing art Behavior:cooperative psychomotor: no agitation or retardation noted Speech:clear, normal rate/rhythm/volume, spontaneous Thought process:linear Thought content:no signs of psychosis Mood: depressed but apathetic Affect: constricted, normo-intense, min-labile (tearful at one point) SI: none expressed HI: none expressed VH/AH: none expressed Delusions: none expressed Diagnostics Vital Signs (24Hr): Vital Signs - 24 hr 03/29/21 18:00 03/29/21 21:34 Temperature 98.0 F Pulse Rate 87 92 Respiratory Rate 18 Blood Pressure 118/55 L 132/75 Pulse Oximetry 97 BMI result Body Mass Index 32.4 Labs Results: 03/14/21 15:38 03/14/21 15:37 Imaging Radiology Impressions: ITS Impressions Head CT 03/17/21 17:01 IMPRESSION: No CT evidence of intracranial bleed or hemorrhage. Chest X-Ray 03/25/21 19:03 IMPRESSION: Unremarkable examination. Medications Medications Current Medications Acetaminophen (Acetaminophen 325 Mg Tablet) 650 mg PO Q6H PRN PRN Reason: Headache/Pain Mild Scale (1-3) Last Admin: 03/22/21 20:27 Dose: 650 mg Documented by: Al Hydroxide/Mg Hydroxide (Magnesium Hydrox/Alum Hydrox 30 Ml Oral.Susp) 30 ml PO Q6H PRN PRN Reason: Heartburn/Nausea Amphetamine/Dextroamphetamine (Amphetamine Mixed Salts 20 Mg Tablet) 20 mg PO DAILY [facility] Last Admin: 03/30/21 08:31 Dose: 20 mg Documented by: Chlorpromazine HCl (Chlorpromazine Hcl 100 Mg Tablet) 100 mg PO Q4H PRN PRN Reason: agitation Last Admin: 03/24/21 06:09 Dose: 100 mg Documented by: Docusate Sodium (Docusate Sodium 100 Mg Capsule) 100 mg PO DAILY PRN PRN Reason: Constipation Last Admin: 03/28/21 08:20 Dose: 100 mg Documented by: Fluticasone Propionate (Fluticasone Propionate Nasal 16 Gm [place]) 1 - 2 spray NOSTRIL-B DAILY [facility] Last Admin: 03/30/21 08:31 Dose: 1 spray Documented by: Haloperidol Lactate (Haloperidol Lactate 5 Mg/Ml Vial) 5 mg IM Q4H PRN PRN Reason: risk of self-injurious behavio Last Admin: 03/27/21 11:53 Dose: 5 mg Documented by: Hydroxyzine HCl (Hydroxyzine Hcl 25 Mg Tablet) 25 mg PO BEDTIME PRN PRN Reason: Anxiety Last Admin: 03/29/21 21:35 Dose: 25 mg Documented by: Lactulose (Lactulose 20 Gm/30 Ml Solution) 30 gm PO BID PRN PRN Reason: Constipation Last Admin: 03/28/21 22:24 Dose: 30 gm Documented by: [place] Carbonate ([place] Carbonate Er 300 Mg Tablet.Er) 600 mg PO BID [facility] Last Admin: 03/30/21 08:31 Dose: 600 mg Documented by: Lorazepam (Lorazepam 1 Mg Tablet) 1 mg PO BID [facility] Last Admin: 03/30/21 08:31 Dose: 1 mg Documented by: Lorazepam (Lorazepam 1 Mg Tablet) 1 mg PO DAILY PRN PRN Reason: Anxiety Last Admin: 03/29/21 13:18 Dose: 1 mg Documented by: Magnesium Hydroxide (Milk Of Magnesia 30 Ml Oral.Susp) 30 ml PO DAILY PRN PRN Reason: Constipation Last Admin: 03/28/21 22:23 Dose: 30 ml Documented by: Melatonin (Melatonin 3 Mg Tablet) 6 mg PO BEDTIME PRN PRN Reason: sleep Last Admin: 03/29/21 21:35 Dose: 6 mg Documented by: Nicotine Polacrilex (Nicotine Polacrilex 2 Mg Gum) 2 mg [place] Q1H PRN PRN Reason: Nicotine Cravings Last Admin: 03/24/21 15:57 Dose: 2 mg Documented by: Patient Own Medication ( Desvenlafaxine Er 100 Mg) 1 each PO DAILY [facility] Last Admin: 03/30/21 08:31 Dose: 1 each Documented by: Prazosin HCl (Prazosin Hcl 1 Mg Capsule) 2 mg PO BEDTIME [facility]; Protocol Prazosin HCl (Prazosin Hcl 5 Mg Capsule) 10 mg PO BEDTIME [facility]; Protocol Quetiapine Fumarate (Quetiapine Fumarate 50 Mg Tablet) 50 mg PO BID PRN PRN Reason: mod-severe anxiety/ agitation Senna/Docusate Sodium (Sennosides/Docusate Sodium Tablet) 1 tab PO BID [facility] Sertraline HCl (Sertraline Hcl 50 Mg Tablet) 50 mg PO DAILY [facility] Last Admin: 03/30/21 08:31 Dose: 50 mg Documented by: Thiamine HCl (Thiamine Hcl 100 Mg Tablet) 100 mg PO DAILY [facility] Last Admin: 03/30/21 08:31 Dose: 100 mg Documented by: Trazodone HCl (Trazodone Hcl 100 Mg Tablet) 300 mg PO BEDTIME [facility] Last Admin: 03/29/21 21:35 Dose: 300 mg Documented by: Trazodone HCl (Trazodone Hcl 50 Mg Tablet) 50 mg PO BEDTIME PRN PRN Reason: Insomnia Last Admin: 03/30/21 03:32 Dose: 50 mg Documented by: Vitamin D (Cholecalciferol (Vitamin D3) 25 Mcg Tablet) 50 mcg PO DAILY [facility] Last Admin: 03/30/21 08:31 Dose: 50 mcg Documented by: Allergies Allergies Allergy/AdvReac Type Severity Reaction Status Date / Time Sulfa (Sulfonamide Allergy Unknown HIVES Verified 03/15/21 14:13 Antibiotics) [SULFA (SULFONAMIDE ANTIBIOTICS)] sulfamethoxazole Allergy Unknown HIVES Verified 03/15/21 14:13 [From BACTRIM] trimethoprim [From BACTRIM] Allergy Unknown HIVES Verified 03/15/21 14:13 Assessment & Plan Assessment & Plan (1) PTSD (post-traumatic stress disorder): Status: Acute Code(s): F43.10 - Post-traumatic stress disorder, unspecified (2) MDD (major depressive disorder), recurrent severe, without psychosis: Status: Acute Code(s): F33.2 - Major depressive disorder, recurrent severe without psychotic features Assessment and Plan: continue outpt meds. admitted to [facility] for safety and containment. 1:1 after head banging and reportedly wrapping sheets around neck in shower. 03/17 ativan dosing changed from 1 TID to 1 BID and 1 PRN daily, per pt request. med changes discussed at length 03/18, 03/19. trying to obtain genetic testing report from medical records. zoloft 50 mg daily in addition to pristiq as of 03/20. thorazine 100 mg Q4H PRN added 03/23 for impulses to self-harm. IMs of ativan and haldol added PRN imminent self-harm as of 03/24. PRNs of xanax 1 mg added 03/25 for not quite imminent self-harm. senna/colace scheduled as of 03/30. observe for stability, keep safe. investigate resi DBT programs for dispo options. I spent minutes with the patient and/or on the patient floor today, greater than?50% of which was spent counseling/coordinating care. Reason for contiued inpatient stay Substantial Risk for: harm to self, inability to function and rapid decompensation
[2021-03-30] MEDS: Sennosides/Docusate Sodium TABLET 1 TAB PO (21:54)
[2021-03-30] MEDS: Melatonin 3 MG TABLET 6 MG PO (21:54)
[2021-03-30] MEDS: traZODone HCL 100 MG TABLET 300 MG PO (21:55)
[2021-03-30] MEDS: Prazosin HCL 1 MG CAPSULE 2 MG PO (21:56)
[2021-03-30 21:57] VITALS: BP 120/67; PULSE 74
[2021-03-30] MEDS: Prazosin HCL 5 MG CAPSULE 10 MG PO (21:57)
[2021-03-30 22:00] VITALS: BP 120/67; PULSE 74; RESP 16; TEMP 36.6; O2SAT 98
[2021-03-31 06:00] VITALS: BP 114/59; PULSE 96; RESP 18; TEMP 37.1; O2SAT 96
[2021-03-31] MEDS: Cholecalciferol (Vitamin D3) 25 MCG TABLET 50 MCG PO (08:05)
[2021-03-31] MEDS: Lithium Carbonate ER 300 MG TABLET.ER 600 MG PO ×2 (08:05→21:55)
[2021-03-31] MEDS: Fluticasone Propionate Nasal 16 GM SPRAY NOSTRIL-B (08:05)
[2021-03-31] MEDS: Amphetamine Mixed Salts 20 MG TABLET PO (08:05)
[2021-03-31] MEDS: Sertraline HCL 50 MG TABLET PO (08:06)
[2021-03-31] MEDS: Sennosides/Docusate Sodium TABLET 1 TAB PO ×2 (08:06→21:55)
[2021-03-31] MEDS: LORazepam 1 MG TABLET PO ×2 (08:06→10:04)
[2021-03-31] MEDS: Thiamine HCL 100 MG TABLET PO (08:06)
[2021-03-31] MEDS: ALPRAZolam 0.5 MG TABLET 1 MG PO (12:11)
--- NOTE | 2021-03-31 15:32 | HO.PSYCHPN ---
Subjective Subjective Date of Service: 03/31/21 Reason For Visit: SI Interim History: Patient seen and discussed with team. Patient evaluated this morning and upon interview pt reports Ativan doesnt do anything at 1 mg on its own, however when they take it with xanax it helps and is sedating. Says they feel medications are useful at keeping me safe at this time, has a 1:1 as well. Had incident of head banging while in the shower on Tuesday. Continues to utilize IM medications voluntarily for acute distress and anxiety, has done this 2-3 times. Prazosin was recently increased to target nightmares, says the nightmares are violent and graphic. Feels their urges to self harm have gotten quieter over the last few days. Asks to discontinue thorazine and seroquel PRN, denies benefit and says it was difficult to get off seroquel. Reports IM Haldol seems okay with IM ativan. In the milieu, patient is maintained with 1:1, withdrawn but walks, has been engaging in craft activities. Denies irritability or assaultive ideation. Says they feel safe. Medication Compliance: Yes Side effects from medications: No Attending Groups: Intermittent Review of Systems Acute medical concerns: No Medical Review of Systems: unchanged Mental Status Exam Mental Status Exam Narrative: Appearance: in room, casual attire, overweight, doing craft activity Behavior:cooperative psychomotor: no agitation or retardation noted Speech:clear, normal rate/rhythm/volume, spontaneous Thought process:linear Thought content:no signs of psychosis Mood: depressed but apathetic Affect: constricted, normo-intense, min-labile SI: endorses thoughts of suicide but passive and denies plan or intent, currently denies urges to self harm HI: none expressed VH/AH: none expressed Delusions: none expressed Diagnostics Vital Signs (24Hr): Vital Signs - 24 hr 03/30/21 21:57 03/30/21 22:00 03/31/21 06:00 Temperature 97.9 F 98.8 F Pulse Rate 74 74 96 Respiratory Rate 16 18 Blood Pressure 120/67 120/67 114/59 L Pulse Oximetry 98 96 BMI result Body Mass Index 32.4 Labs Results: 03/14/21 15:38 03/14/21 15:37 Imaging Radiology Impressions: ITS Impressions Head CT 03/17/21 17:01 IMPRESSION: No CT evidence of intracranial bleed or hemorrhage. Chest X-Ray 03/25/21 19:03 IMPRESSION: Unremarkable examination. Medications Medications Current Medications Acetaminophen (Acetaminophen 325 Mg Tablet) 650 mg PO Q6H PRN PRN Reason: Headache/Pain Mild Scale (1-3) Last Admin: 03/22/21 20:27 Dose: 650 mg Documented by: Al Hydroxide/Mg Hydroxide (Magnesium Hydrox/Alum Hydrox 30 Ml Oral.Susp) 30 ml PO Q6H PRN PRN Reason: Heartburn/Nausea Alprazolam (Alprazolam 0.5 Mg Tablet) 1 mg PO TID PRN PRN Reason: Anxiety Last Admin: 03/31/21 12:11 Dose: 1 mg Documented by: Amphetamine/Dextroamphetamine (Amphetamine Mixed Salts 20 Mg Tablet) 20 mg PO DAILY [facility] Last Admin: 03/31/21 08:05 Dose: 20 mg Documented by: Chlorpromazine HCl (Chlorpromazine Hcl 100 Mg Tablet) 100 mg PO Q4H PRN PRN Reason: agitation Last Admin: 03/24/21 06:09 Dose: 100 mg Documented by: Docusate Sodium (Docusate Sodium 100 Mg Capsule) 100 mg PO DAILY PRN PRN Reason: Constipation Last Admin: 03/28/21 08:20 Dose: 100 mg Documented by: Fluticasone Propionate (Fluticasone Propionate Nasal 16 Gm [place]) 1 - 2 spray NOSTRIL-B DAILY [facility] Last Admin: 03/31/21 08:05 Dose: 1 spray Documented by: Haloperidol Lactate (Haloperidol Lactate 5 Mg/Ml Vial) 5 mg IM Q4H PRN PRN Reason: risk of self-injurious behavio Last Admin: 03/27/21 11:53 Dose: 5 mg Documented by: Hydroxyzine HCl (Hydroxyzine Hcl 25 Mg Tablet) 25 mg PO BEDTIME PRN PRN Reason: Anxiety Last Admin: 03/29/21 21:35 Dose: 25 mg Documented by: Lactulose (Lactulose 20 Gm/30 Ml Solution) 30 gm PO BID PRN PRN Reason: Constipation Last Admin: 03/28/21 22:24 Dose: 30 gm Documented by: [place] Carbonate ([place] Carbonate Er 300 Mg Tablet.Er) 600 mg PO BID [facility] Last Admin: 03/31/21 08:05 Dose: 600 mg Documented by: Lorazepam (Lorazepam 1 Mg Tablet) 1 mg PO BID [facility] Last Admin: 03/31/21 08:06 Dose: 1 mg Documented by: Lorazepam (Lorazepam 1 Mg Tablet) 1 mg PO DAILY PRN PRN Reason: Anxiety Last Admin: 03/31/21 10:04 Dose: 1 mg Documented by: Magnesium Hydroxide (Milk Of Magnesia 30 Ml Oral.Susp) 30 ml PO DAILY PRN PRN Reason: Constipation Last Admin: 03/28/21 22:23 Dose: 30 ml Documented by: Melatonin (Melatonin 3 Mg Tablet) 6 mg PO BEDTIME PRN PRN Reason: sleep Last Admin: 03/30/21 21:54 Dose: 6 mg Documented by: Nicotine Polacrilex (Nicotine Polacrilex 2 Mg Gum) 2 mg [place] Q1H PRN PRN Reason: Nicotine Cravings Last Admin: 03/24/21 15:57 Dose: 2 mg Documented by: Patient Own Medication ( Desvenlafaxine Er 100 Mg) 1 each PO DAILY [facility] Last Admin: 03/31/21 08:06 Dose: 1 each Documented by: Prazosin HCl (Prazosin Hcl 1 Mg Capsule) 2 mg PO BEDTIME [facility]; Protocol Last Admin: 03/30/21 21:56 Dose: 2 mg Documented by: Prazosin HCl (Prazosin Hcl 5 Mg Capsule) 10 mg PO BEDTIME [facility]; Protocol Last Admin: 03/30/21 21:57 Dose: 10 mg Documented by: Quetiapine Fumarate (Quetiapine Fumarate 50 Mg Tablet) 50 mg PO BID PRN PRN Reason: mod-severe anxiety/ agitation Senna/Docusate Sodium (Sennosides/Docusate Sodium Tablet) 1 tab PO BID [facility] Last Admin: 03/31/21 08:06 Dose: 1 tab Documented by: Sertraline HCl (Sertraline Hcl 50 Mg Tablet) 50 mg PO DAILY [facility] Last Admin: 03/31/21 08:06 Dose: 50 mg Documented by: Thiamine HCl (Thiamine Hcl 100 Mg Tablet) 100 mg PO DAILY [facility] Last Admin: 03/31/21 08:06 Dose: 100 mg Documented by: Trazodone HCl (Trazodone Hcl 100 Mg Tablet) 300 mg PO BEDTIME [facility] Last Admin: 03/30/21 21:55 Dose: 300 mg Documented by: Trazodone HCl (Trazodone Hcl 50 Mg Tablet) 50 mg PO BEDTIME PRN PRN Reason: Insomnia Last Admin: 03/30/21 03:32 Dose: 50 mg Documented by: Vitamin D (Cholecalciferol (Vitamin D3) 25 Mcg Tablet) 50 mcg PO DAILY [facility] Last Admin: 03/31/21 08:05 Dose: 50 mcg Documented by: Allergies Allergies Allergy/AdvReac Type Severity Reaction Status Date / Time Sulfa (Sulfonamide Allergy Unknown HIVES Verified 03/15/21 14:13 Antibiotics) [SULFA (SULFONAMIDE ANTIBIOTICS)] sulfamethoxazole Allergy Unknown HIVES Verified 03/15/21 14:13 [From BACTRIM] trimethoprim [From BACTRIM] Allergy Unknown HIVES Verified 03/15/21 14:13 Assessment & Plan Assessment & Plan (1) PTSD (post-traumatic stress disorder): Status: Acute Code(s): F43.10 - Post-traumatic stress disorder, unspecified (2) MDD (major depressive disorder), recurrent severe, without psychosis: Status: Acute Code(s): F33.2 - Major depressive disorder, recurrent severe without psychotic features Assessment and Plan: continue outpt meds. admitted to M3 for safety and containment. 1:1 after head banging and reportedly wrapping sheets around neck in shower. 03/17 ativan dosing changed from 1 TID to 1 BID and 1 PRN daily, per pt request. med changes discussed at length 03/18, 03/19. trying to obtain genetic testing report from medical records. zoloft 50 mg daily in addition to pristiq as of 03/20. thorazine 100 mg Q4H PRN added 03/23 for impulses to self-harm. D/C'd 03/31 due to pt reporting sedation but no benefit. Start zyprexa 5 mg Q6H PRN on 03/31 for anxious distress. IMs of ativan and haldol added PRN imminent self-harm as of 03/24. PRNs of xanax 1 mg added 03/25 for not quite imminent self-harm. senna/colace scheduled as of 03/30. observe for stability, keep safe. investigate resi DBT programs for dispo options. I spent minutes with the patient and/or on the patient floor today, greater than?50% of which was spent counseling/coordinating care. Reason for contiued inpatient stay Substantial Risk for: harm to self, rapid decompensation and med/psych decompensation
[2021-03-31] MEDS: Nicotine Polacrilex 2 MG GUM BUCCAL (19:44)
[2021-03-31 21:43] VITALS: BP 135/72; PULSE 75; RESP 18; TEMP 36.6; O2SAT 98
[2021-03-31] MEDS: traZODone HCL 100 MG TABLET 300 MG PO (21:54)
[2021-03-31 21:55] VITALS: BP 135/72; PULSE 75
[2021-03-31] MEDS: Prazosin HCL 1 MG CAPSULE 2 MG PO (21:55)
[2021-03-31] MEDS: Melatonin 3 MG TABLET 6 MG PO (21:55)
[2021-03-31] MEDS: hydrOXYzine HCL 25 MG TABLET PO (21:55)
[2021-03-31] MEDS: Prazosin HCL 5 MG CAPSULE 10 MG PO (21:56)
[2021-03-31] MEDS: Haloperidol Lactate 5 MG/ML VIAL IM (22:38)
[2021-03-31] MEDS: LORazepam 2 MG/ML VIAL IM (22:38)
[2021-04-01 09:50] VITALS: BP 130/71; PULSE 83; RESP 18; TEMP 37; O2SAT 97
[2021-04-01] MEDS: Sertraline HCL 50 MG TABLET PO (09:58)
[2021-04-01] MEDS: Fluticasone Propionate Nasal 16 GM SPRAY NOSTRIL-B (09:58)
[2021-04-01] MEDS: Cholecalciferol (Vitamin D3) 25 MCG TABLET 50 MCG PO (09:58)
[2021-04-01] MEDS: Lithium Carbonate ER 300 MG TABLET.ER 600 MG PO (09:58)
[2021-04-01] MEDS: Sennosides/Docusate Sodium TABLET 1 TAB PO ×2 (09:58→20:51)
[2021-04-01] MEDS: Amphetamine Mixed Salts 20 MG TABLET PO (09:58)
[2021-04-01] MEDS: LORazepam 1 MG TABLET PO ×2 (09:58→20:50)
[2021-04-01] MEDS: Thiamine HCL 100 MG TABLET PO (09:58)
[2021-04-01] MEDS: OLANZapine 5 MG TABLET PO ×2 (10:53→20:50)
[2021-04-01] MEDS: ALPRAZolam 0.5 MG TABLET 1 MG PO ×2 (10:53→20:50)
[2021-04-01 18:00] VITALS: BP 123/74; PULSE 80; RESP 16; TEMP 36.7; O2SAT 99
--- NOTE | 2021-04-01 18:56 | HO.PSYCHPN ---
Subjective Subjective Date of Service: 04/01/21 Reason For Visit: SI Interim History: Patient seen and discussed with team. Patient evaluated this morning and upon interview they report that the combination of xanax and zyprexa made me sleepy, helped with sleep onset. Took zyprexa today for anxiety but says it didnt help on its own. Says they are having a really hard day, has thoughts of SI, self harm but denies having energy to do anything about it. Precipitating factors include that they felt a staff member was not validating (had asked RN they were comfortable with to give them their meds, but this person was not their nurse and was too busy to help). Also feels another peer on the unit is getting more attention than them. Says sleep is alleviating for sx. Also thinks the increased prazosin dose helped, as they didnt have nightmares last night. Did not eat breakfast, staying hydrating. Says the IMs and antipsychotics have kept me safe. In the milieu, patient is safe but isolative in behavior. Endorses SI but denies intent, has urges to self harm and head bang but says they feel safe on a 1:1. Denies HI upon inquiry. Denies irritability or assaultive ideation. Medication Compliance: Yes Side effects from medications: No Attending Groups: Intermittent Review of Systems Acute medical concerns: No Medical Review of Systems: unchanged Mental Status Exam Mental Status Exam Narrative: Appearance: in room, casual attire, overweight, lying down in bed Behavior:cooperative psychomotor: no agitation or retardation noted Speech:clear, normal rate/rhythm/volume, spontaneous Thought process:linear Thought content:no signs of psychosis Mood: depressed but apathetic Affect: constricted, normo-intense, min-labile SI: endorses thoughts of suicide but passive and denies specific plan or intent, endorses urges to self harm HI: none expressed VH/AH: none expressed Delusions: none expressed Diagnostics Vital Signs (24Hr): Vital Signs - 24 hr 04/01/21 20:49 04/01/21 20:51 Pulse Rate 80 80 Blood Pressure 123/74 123/74 BMI result Body Mass Index 32.4 Labs Results: 03/14/21 15:38 03/14/21 15:37 Imaging Radiology Impressions: ITS Impressions Head CT 03/17/21 17:01 IMPRESSION: No CT evidence of intracranial bleed or hemorrhage. Chest X-Ray 03/25/21 19:03 IMPRESSION: Unremarkable examination. Medications Medications Current Medications Acetaminophen (Acetaminophen 325 Mg Tablet) 650 mg PO Q6H PRN PRN Reason: Headache/Pain Mild Scale (1-3) Last Admin: 03/22/21 20:27 Dose: 650 mg Documented by: Al Hydroxide/Mg Hydroxide (Magnesium Hydrox/Alum Hydrox 30 Ml Oral.Susp) 30 ml PO Q6H PRN PRN Reason: Heartburn/Nausea Last Admin: 04/02/21 06:13 Dose: 30 ml Documented by: Alprazolam (Alprazolam 0.5 Mg Tablet) 1 mg PO TID PRN PRN Reason: Anxiety Last Admin: 04/02/21 08:45 Dose: 1 mg Documented by: Amphetamine/Dextroamphetamine (Amphetamine Mixed Salts 20 Mg Tablet) 20 mg PO DAILY [facility] Last Admin: 04/02/21 08:26 Dose: 20 mg Documented by: Docusate Sodium (Docusate Sodium 100 Mg Capsule) 100 mg PO DAILY PRN PRN Reason: Constipation Last Admin: 03/28/21 08:20 Dose: 100 mg Documented by: Fluticasone Propionate (Fluticasone Propionate Nasal 16 Gm [place]) 1 - 2 spray NOSTRIL-B DAILY [facility] Last Admin: 04/02/21 08:27 Dose: 1 spray Documented by: Haloperidol Lactate (Haloperidol Lactate 5 Mg/Ml Vial) 5 mg IM Q4H PRN PRN Reason: risk of self-injurious behavio Last Admin: 03/31/21 22:38 Dose: 5 mg Documented by: Hydroxyzine HCl (Hydroxyzine Hcl 25 Mg Tablet) 25 mg PO BEDTIME PRN PRN Reason: Anxiety Last Admin: 04/01/21 20:50 Dose: 25 mg Documented by: Lactulose (Lactulose 20 Gm/30 Ml Solution) 30 gm PO BID PRN PRN Reason: Constipation Last Admin: 03/28/21 22:24 Dose: 30 gm Documented by: [place] Carbonate ([place] Carbonate Er 300 Mg Tablet.Er) 600 mg PO BID [facility] Last Admin: 04/02/21 08:23 Dose: 600 mg Documented by: Lorazepam (Lorazepam 1 Mg Tablet) 1 mg PO BID [facility] Last Admin: 04/02/21 08:26 Dose: 1 mg Documented by: Lorazepam (Lorazepam 1 Mg Tablet) 1 mg PO DAILY PRN PRN Reason: Anxiety Last Admin: 03/31/21 10:04 Dose: 1 mg Documented by: Lorazepam (Lorazepam 2 Mg/Ml Vial) 2 mg IM Q4H PRN PRN Reason: risk of serious self injury Last Admin: 03/31/21 22:38 Dose: 2 mg Documented by: Magnesium Hydroxide (Milk Of Magnesia 30 Ml Oral.Susp) 30 ml PO DAILY PRN PRN Reason: Constipation Last Admin: 03/28/21 22:23 Dose: 30 ml Documented by: Melatonin (Melatonin 3 Mg Tablet) 6 mg PO BEDTIME PRN PRN Reason: sleep Last Admin: 04/01/21 20:50 Dose: 6 mg Documented by: Nicotine Polacrilex (Nicotine Polacrilex 2 Mg Gum) 2 mg [place]CC[place] Q1H PRN PRN Reason: Nicotine Cravings Last Admin: 03/31/21 19:44 Dose: 2 mg Documented by: Patient Own Medication ( Desvenlafaxine Er 100 Mg) 1 each PO DAILY [facility] Last Admin: 04/02/21 08:27 Dose: 1 each Documented by: Olanzapine (Olanzapine 10 Mg Tablet) 10 mg PO Q6H PRN PRN Reason: agitation, anxiety Prazosin HCl (Prazosin Hcl 1 Mg Capsule) 2 mg PO BEDTIME [facility]; Protocol Last Admin: 04/01/21 20:51 Dose: 2 mg Documented by: Prazosin HCl (Prazosin Hcl 5 Mg Capsule) 10 mg PO BEDTIME [facility]; Protocol Last Admin: 04/01/21 20:49 Dose: 10 mg Documented by: Senna/Docusate Sodium (Sennosides/Docusate Sodium Tablet) 1 tab PO BID [facility] Last Admin: 04/02/21 08:26 Dose: 1 tab Documented by: Sertraline HCl (Sertraline Hcl 50 Mg Tablet) 50 mg PO DAILY [facility] Last Admin: 04/02/21 08:26 Dose: 50 mg Documented by: Thiamine HCl (Thiamine Hcl 100 Mg Tablet) 100 mg PO DAILY [facility] Last Admin: 04/02/21 08:26 Dose: 100 mg Documented by: Trazodone HCl (Trazodone Hcl 100 Mg Tablet) 300 mg PO BEDTIME [facility] Last Admin: 04/01/21 20:50 Dose: 300 mg Documented by: Trazodone HCl (Trazodone Hcl 50 Mg Tablet) 50 mg PO BEDTIME PRN PRN Reason: Insomnia Last Admin: 03/30/21 03:32 Dose: 50 mg Documented by: Vitamin D (Cholecalciferol (Vitamin D3) 25 Mcg Tablet) 50 mcg PO DAILY [facility] Last Admin: 04/02/21 08:22 Dose: 50 mcg Documented by: Allergies Allergies Allergy/AdvReac Type Severity Reaction Status Date / Time Sulfa (Sulfonamide Allergy Unknown HIVES Verified 03/15/21 14:13 Antibiotics) [SULFA (SULFONAMIDE ANTIBIOTICS)] sulfamethoxazole Allergy Unknown HIVES Verified 03/15/21 14:13 [From BACTRIM] trimethoprim [From BACTRIM] Allergy Unknown HIVES Verified 03/15/21 14:13 Assessment & Plan Assessment & Plan (1) PTSD (post-traumatic stress disorder): Status: Acute Code(s): F43.10 - Post-traumatic stress disorder, unspecified (2) MDD (major depressive disorder), recurrent severe, without psychosis: Status: Acute Code(s): F33.2 - Major depressive disorder, recurrent severe without psychotic features Assessment and Plan: continue outpt meds. admitted to M3 for safety and containment. 1:1 after head banging and reportedly wrapping sheets around neck in shower. 03/17 ativan dosing changed from 1 TID to 1 BID and 1 PRN daily, per pt request. med changes discussed at length 03/18, 03/19. trying to obtain genetic testing report from medical records. zoloft 50 mg daily in addition to pristiq as of 03/20. thorazine 100 mg Q4H PRN added 03/23 for impulses to self-harm. D/C'd 03/31 due to pt reporting sedation but no benefit. Start zyprexa 5 mg Q6H PRN on 03/31 for anxious distress. 04/01: no med changes, monitor for benefit and continue 1:1 for safety IMs of ativan and haldol added PRN imminent self-harm as of 03/24. PRNs of xanax 1 mg added 03/25 for not quite imminent self-harm. senna/colace scheduled as of 03/30. observe for stability, keep safe. investigate resi DBT programs for dispo options. I spent minutes with the patient and/or on the patient floor today, greater than?50% of which was spent counseling/coordinating care. Reason for contiued inpatient stay Substantial Risk for: harm to self, rapid decompensation and med/psych decompensation
[2021-04-01 20:49] VITALS: BP 123/74; PULSE 80
[2021-04-01] MEDS: Prazosin HCL 5 MG CAPSULE 10 MG PO (20:49)
[2021-04-01] MEDS: traZODone HCL 100 MG TABLET 300 MG PO (20:50)
[2021-04-01] MEDS: Melatonin 3 MG TABLET 6 MG PO (20:50)
[2021-04-01] MEDS: hydrOXYzine HCL 25 MG TABLET PO (20:50)
[2021-04-01 20:51] VITALS: BP 123/74; PULSE 80
[2021-04-01] MEDS: Prazosin HCL 1 MG CAPSULE 2 MG PO (20:51)
[2021-04-02] MEDS: Magnesium Hydrox/Alum Hydrox 30 ML ORAL.SUSP PO (06:13)
[2021-04-02] MEDS: Cholecalciferol (Vitamin D3) 25 MCG TABLET 50 MCG PO (08:22)
[2021-04-02] MEDS: Lithium Carbonate ER 300 MG TABLET.ER 600 MG PO ×2 (08:23→21:44)
[2021-04-02] MEDS: LORazepam 1 MG TABLET PO ×2 (08:26→21:45)
[2021-04-02] MEDS: Amphetamine Mixed Salts 20 MG TABLET PO (08:26)
[2021-04-02] MEDS: Thiamine HCL 100 MG TABLET PO (08:26)
[2021-04-02] MEDS: Sennosides/Docusate Sodium TABLET 1 TAB PO ×2 (08:26→21:44)
[2021-04-02] MEDS: Sertraline HCL 50 MG TABLET PO (08:26)
[2021-04-02] MEDS: Fluticasone Propionate Nasal 16 GM SPRAY NOSTRIL-B (08:27)
[2021-04-02] MEDS: ALPRAZolam 0.5 MG TABLET 1 MG PO ×2 (08:45→21:44)
[2021-04-02] MEDS: OLANZapine 5 MG TABLET PO (12:44)
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
[2021-04-02 21:44] VITALS: BP 116/66; PULSE 78
[2021-04-02] MEDS: Prazosin HCL 5 MG CAPSULE 10 MG PO (21:44)
[2021-04-02] MEDS: hydrOXYzine HCL 25 MG TABLET PO (21:44)
[2021-04-02] MEDS: OLANZapine 10 MG TABLET PO (21:44)
[2021-04-02] MEDS: Melatonin 3 MG TABLET 6 MG PO (21:44)
[2021-04-02 21:45] VITALS: BP 116/66; PULSE 78
[2021-04-02] MEDS: traZODone HCL 100 MG TABLET 300 MG PO (21:45)
[2021-04-02] MEDS: Prazosin HCL 1 MG CAPSULE 2 MG PO (21:45)
[2021-04-02 21:48] VITALS: TEMP 36.7; O2SAT 98
[2021-04-03 08:31] VITALS: BP 134/85; PULSE 89; RESP 16; TEMP 36.7; O2SAT 96
[2021-04-03] MEDS: Thiamine HCL 100 MG TABLET PO (08:33)
[2021-04-03] MEDS: Sennosides/Docusate Sodium TABLET 1 TAB PO ×2 (08:33→23:37)
[2021-04-03] MEDS: Fluticasone Propionate Nasal 16 GM SPRAY NOSTRIL-B (08:33)
[2021-04-03] MEDS: Cholecalciferol (Vitamin D3) 25 MCG TABLET 50 MCG PO (08:34)
[2021-04-03] MEDS: Amphetamine Mixed Salts 20 MG TABLET PO (08:34)
[2021-04-03] MEDS: Lithium Carbonate ER 300 MG TABLET.ER 600 MG PO ×2 (08:35→23:39)
[2021-04-03] MEDS: Sertraline HCL 50 MG TABLET PO (08:35)
[2021-04-03] MEDS: LORazepam 0.5 MG TABLET PO (08:35)
[2021-04-03 11:00] LABS: COVID-19 Test Negative (Negative)
[2021-04-03] MEDS: ALPRAZolam 0.5 MG TABLET 1 MG PO ×2 (12:10→23:40)
[2021-04-03] MEDS: OLANZapine 10 MG TABLET PO (12:11)
--- NOTE | 2021-04-03 13:12 | HO.PSYCHPN ---
Subjective Subjective Date of Service: 05/04/21 Reason For Visit: SI Subjective Notes: Conditional Voluntary Interim History: Patient seen chart reviewed case reviewed with nursing staff. Patient remains on one-to-one when seen individually continues to express hopelessness despair grief with intense suicidal thoughts. Patient has not had trial of S ketamine feels alprazolam p.r.n. helpful past treatment with ECT reviewed continues to require one-to-one Medication Compliance: Yes Review of Systems Acute medical concerns: No Medical Review of Systems: unchanged Mental Status Exam Mental Status Exam Narrative: Appearance: in room, casual attire, overweight, lying down in bed Behavior:cooperative psychomotor: no agitation or retardation noted Speech:clear, normal rate/rhythm/volume, spontaneous Thought process:linear Thought content:no signs of psychosis Mood: depressed but apathetic Affect: constricted, appropriate to mood, ability on unit noted SI: endorses thoughts of suicide but passive and denies specific plan or intent, endorses urges to self harm cannot see future for herself HI: none expressed VH/AH: none expressed Delusions: none expressed Diagnostics Vital Signs (24Hr): Vital Signs - 24 hr 04/02/21 21:44 04/02/21 21:45 04/02/21 21:48 Temperature 98.0 F Pulse Rate 78 78 Respiratory Rate Blood Pressure 116/66 116/66 Pulse Oximetry 98 04/03/21 08:31 Temperature 98.1 F Pulse Rate 89 Respiratory Rate 16 Blood Pressure 134/85 Pulse Oximetry 96 BMI result Body Mass Index 32.4 Labs Results: 03/14/21 15:38 03/14/21 15:37 Labs: Laboratory Results - last 48 hr 04/03/21 08:45 COVID-19 ([facility]) Negative COVID-19 Clin Com See Note Imaging Radiology Impressions: ITS Impressions Head CT 03/17/21 17:01 IMPRESSION: No CT evidence of intracranial bleed or hemorrhage. Chest X-Ray 03/25/21 19:03 IMPRESSION: Unremarkable examination. Medications Medications Current Medications Acetaminophen (Acetaminophen 325 Mg Tablet) 650 mg PO Q6H PRN PRN Reason: Headache/Pain Mild Scale (1-3) Last Admin: 03/22/21 20:27 Dose: 650 mg Documented by: Al Hydroxide/Mg Hydroxide (Magnesium Hydrox/Alum Hydrox 30 Ml Oral.Susp) 30 ml PO Q6H PRN PRN Reason: Heartburn/Nausea Last Admin: 04/02/21 06:13 Dose: 30 ml Documented by: Alprazolam (Alprazolam 0.5 Mg Tablet) 1 mg PO TID PRN PRN Reason: Anxiety Last Admin: 04/03/21 12:10 Dose: 1 mg Documented by: Amphetamine/Dextroamphetamine (Amphetamine Mixed Salts 20 Mg Tablet) 20 mg PO DAILY [facility] Last Admin: 04/03/21 08:34 Dose: 20 mg Documented by: Docusate Sodium (Docusate Sodium 100 Mg Capsule) 100 mg PO DAILY PRN PRN Reason: Constipation Last Admin: 03/28/21 08:20 Dose: 100 mg Documented by: Fluticasone Propionate (Fluticasone Propionate Nasal 16 Gm [place]) 1 - 2 spray NOSTRIL-B DAILY [facility] Last Admin: 04/03/21 08:33 Dose: 1 spray Documented by: Haloperidol Lactate (Haloperidol Lactate 5 Mg/Ml Vial) 5 mg IM Q4H PRN PRN Reason: risk of self-injurious behavio Last Admin: 03/31/21 22:38 Dose: 5 mg Documented by: Hydroxyzine HCl (Hydroxyzine Hcl 25 Mg Tablet) 25 mg PO BEDTIME PRN PRN Reason: Anxiety Last Admin: 04/02/21 21:44 Dose: 25 mg Documented by: Lactulose (Lactulose 20 Gm/30 Ml Solution) 30 gm PO BID PRN PRN Reason: Constipation Last Admin: 03/28/21 22:24 Dose: 30 gm Documented by: [place] Carbonate ([place] Carbonate Er 300 Mg Tablet.Er) 600 mg PO BID [facility] Last Admin: 04/03/21 08:35 Dose: 600 mg Documented by: Lorazepam (Lorazepam 2 Mg/Ml Vial) 2 mg IM Q4H PRN PRN Reason: risk of serious self injury Last Admin: 03/31/21 22:38 Dose: 2 mg Documented by: Lorazepam (Lorazepam 1 Mg Tablet) 1 mg PO BEDTIME [facility] Last Admin: 04/02/21 21:45 Dose: 1 mg Documented by: Lorazepam (Lorazepam 0.5 Mg Tablet) 0.5 mg PO DAILY [facility] Last Admin: 04/03/21 08:35 Dose: 0.5 mg Documented by: Magnesium Hydroxide (Milk Of Magnesia 30 Ml Oral.Susp) 30 ml PO DAILY PRN PRN Reason: Constipation Last Admin: 03/28/21 22:23 Dose: 30 ml Documented by: Melatonin (Melatonin 3 Mg Tablet) 6 mg PO BEDTIME PRN PRN Reason: sleep Last Admin: 04/02/21 21:44 Dose: 6 mg Documented by: Nicotine Polacrilex (Nicotine Polacrilex 2 Mg Gum) 2 mg BUCCAL Q1H PRN PRN Reason: Nicotine Cravings Last Admin: 03/31/21 19:44 Dose: 2 mg Documented by: Patient Own Medication ( Desvenlafaxine Er 100 Mg) 1 each PO DAILY [facility] Last Admin: 04/03/21 08:32 Dose: 1 each Documented by: Olanzapine (Olanzapine 10 Mg Tablet) 10 mg PO Q6H PRN PRN Reason: agitation, anxiety Last Admin: 04/03/21 12:11 Dose: 10 mg Documented by: Prazosin HCl (Prazosin Hcl 1 Mg Capsule) 2 mg PO BEDTIME [facility]; Protocol Last Admin: 04/02/21 21:45 Dose: 2 mg Documented by: Prazosin HCl (Prazosin Hcl 5 Mg Capsule) 10 mg PO BEDTIME [facility]; Protocol Last Admin: 04/02/21 21:44 Dose: 10 mg Documented by: Senna/Docusate Sodium (Sennosides/Docusate Sodium Tablet) 1 tab PO BID [facility] Last Admin: 04/03/21 08:33 Dose: 1 tab Documented by: Sertraline HCl (Sertraline Hcl 50 Mg Tablet) 50 mg PO DAILY [facility] Last Admin: 04/03/21 08:35 Dose: 50 mg Documented by: Thiamine HCl (Thiamine Hcl 100 Mg Tablet) 100 mg PO DAILY [facility] Last Admin: 04/03/21 08:33 Dose: 100 mg Documented by: Trazodone HCl (Trazodone Hcl 100 Mg Tablet) 300 mg PO BEDTIME [facility] Last Admin: 04/02/21 21:45 Dose: 300 mg Documented by: Trazodone HCl (Trazodone Hcl 50 Mg Tablet) 50 mg PO BEDTIME PRN PRN Reason: Insomnia Last Admin: 03/30/21 03:32 Dose: 50 mg Documented by: Vitamin D (Cholecalciferol (Vitamin D3) 25 Mcg Tablet) 50 mcg PO DAILY [facility] Last Admin: 04/03/21 08:34 Dose: 50 mcg Documented by: Allergies Allergies Allergy/AdvReac Type Severity Reaction Status Date / Time Sulfa (Sulfonamide Allergy Unknown HIVES Verified 03/15/21 14:13 Antibiotics) [SULFA (SULFONAMIDE ANTIBIOTICS)] sulfamethoxazole Allergy Unknown HIVES Verified 03/15/21 14:13 [From BACTRIM] trimethoprim [From BACTRIM] Allergy Unknown HIVES Verified 03/15/21 14:13 Assessment & Plan Assessment & Plan (1) PTSD (post-traumatic stress disorder): Status: Acute Code(s): F43.10 - Post-traumatic stress disorder, unspecified (2) MDD (major depressive disorder), recurrent severe, without psychosis: Status: Acute Code(s): F33.2 - Major depressive disorder, recurrent severe without psychotic features Assessment and Plan: continue outpt meds. admitted to [facility] for safety and containment. 1:1 after head banging and reportedly wrapping sheets around neck in shower. 03/17 ativan dosing changed from 1 TID to 1 BID and 1 PRN daily, per pt request. med changes discussed at length 03/18, 03/19.? trying to obtain genetic testing report from medical records. zoloft 50 mg daily in addition to pristiq as of 03/20. thorazine 100 mg Q4H PRN added 03/23 for impulses to self-harm. D/C'd 03/31 due to pt reporting sedation but no benefit. Start zyprexa 5 mg Q6H PRN on 03/31 for anxious distress. 04/01: no med changes, monitor for benefit and continue 1:1 for safety 04/02: Increased zyprexa to 10 mg Q6H PRN for anxious agitation, distress, urges to self harm. Will decrease ativan to 1 mg QHS and 0.5 mg QAM per pt request, as they want to reduce polypharm. IMs of ativan and haldol added PRN imminent self-harm as of 03/24. PRNs of xanax 1 mg added 03/25 for not quite imminent self-harm. senna/colace scheduled as of 03/30. observe for stability, keep safe. investigate resi DBT programs for dispo options. 04/03/2021 Continue one-to-one patient ruminating staff and grief depressive is suicidal reaction. Reviewed treatment history and different options. Had done best the past after residential treatment m clean states she has done best with the alprazolam will change Ativan to alprazolam has had ECT in the past under similar circumstances. Ketamine not an inpatient option. Courage grounding and coping strategies. I spent minutes with the patient and/or on the patient floor today, greater than?50% of which was spent counseling/coordinating care. Reason for contiued inpatient stay Substantial Risk for: harm to self and rapid decompensation
[2021-04-03 23:28] VITALS: BP 121/67; PULSE 74; RESP 16; TEMP 36.3; O2SAT 97
[2021-04-03 23:36] VITALS: BP 115/68; PULSE 70
[2021-04-03] MEDS: Prazosin HCL 5 MG CAPSULE 10 MG PO (23:36)
[2021-04-03] MEDS: Prazosin HCL 1 MG CAPSULE 2 MG PO (23:38)
[2021-04-03] MEDS: Melatonin 3 MG TABLET 6 MG PO (23:39)
[2021-04-03] MEDS: traZODone HCL 100 MG TABLET 300 MG PO (23:39)
[2021-04-03] MEDS: hydrOXYzine HCL 25 MG TABLET PO (23:39)
[2021-04-04] MEDS: traZODone HCL 50 MG TABLET PO (04:39)
--- NOTE | 2021-04-04 04:41 | PC.NURSE ---
Patient specifically asked for trazodone. Patient stated that it usually doesn't help them stay asleep but it works well to help them fall asleep.
[2021-04-04 08:31] VITALS: BP 129/54; PULSE 80; RESP 16; TEMP 36.7; O2SAT 96
[2021-04-04] MEDS: Amphetamine Mixed Salts 20 MG TABLET PO (08:44)
[2021-04-04] MEDS: Cholecalciferol (Vitamin D3) 25 MCG TABLET 50 MCG PO (08:44)
[2021-04-04] MEDS: Fluticasone Propionate Nasal 16 GM SPRAY NOSTRIL-B (08:44)
[2021-04-04] MEDS: Lithium Carbonate ER 300 MG TABLET.ER 600 MG PO ×2 (08:44→22:16)
[2021-04-04] MEDS: Sertraline HCL 25 MG TABLET 75 MG PO (08:44)
[2021-04-04] MEDS: Thiamine HCL 100 MG TABLET PO (08:44)
[2021-04-04] MEDS: ALPRAZolam 0.5 MG TABLET PO ×2 (08:44→22:16)
[2021-04-04] MEDS: Sennosides/Docusate Sodium TABLET 1 TAB PO ×2 (08:44→22:16)
[2021-04-04] MEDS: OLANZapine 10 MG TABLET PO (11:44)
[2021-04-04] MEDS: hydrOXYzine HCL 25 MG TABLET PO ×2 (18:45→22:15)
[2021-04-04] MEDS: Nicotine Polacrilex 2 MG GUM BUCCAL (20:10)
[2021-04-04] MEDS: traZODone HCL 100 MG TABLET 300 MG PO (22:12)
[2021-04-04] MEDS: ALPRAZolam 0.5 MG TABLET 1 MG PO (22:13)
[2021-04-04 22:14] VITALS: BP 133/64; PULSE 73
[2021-04-04] MEDS: Prazosin HCL 5 MG CAPSULE 10 MG PO (22:14)
[2021-04-04] MEDS: Prazosin HCL 1 MG CAPSULE 2 MG PO (22:14)
[2021-04-04] MEDS: Melatonin 3 MG TABLET 6 MG PO (22:15)
[2021-04-04 22:19] VITALS: BP 133/64; PULSE 73; RESP 18; TEMP 36.8; O2SAT 98
--- NOTE | 2021-04-04 23:33 | P.PNPSI_ITS ---
Subjective Subjective Date of Service: 05/05/21 Reason For Visit: SI Subjective Notes: Conditional Voluntary Guardianship: No Interim History: Patient somewhat isolative labile irritable depressed and withdrawn increasingly short down throughout the day refusing to meet extensively with newswriter. Case reviewed with nursing staff chart reviewed had difficulty with insomnia Mental Status Exam Mental Status Exam Narrative: Patient seen briefly in room refused to engage with newswriter. Appeared depressed withdrawn soft-spoken denied any active complaints was feeling very short down guarded poverty of content was not aggressive threatening was seen with 120 room denied active self-harm Diagnostics Vital Signs (24Hr): Vital Signs - 24 hr 04/03/21 23:36 04/04/21 08:31 04/04/21 22:14 Temperature 98.0 F Pulse Rate 70 80 73 Respiratory Rate 16 Blood Pressure 115/68 129/54 L 133/64 Pulse Oximetry 96 04/04/21 22:19 Temperature 98.3 F Pulse Rate 73 Respiratory Rate 18 Blood Pressure 133/64 Pulse Oximetry 98 BMI result Body Mass Index 32.4 Labs Results: 03/14/21 15:38 03/14/21 15:37 Labs: Laboratory Results - last 48 hr 04/03/21 08:45 COVID-19 ([facility]) Negative COVID-19 Clin Com See Note Imaging Radiology Impressions: ITS Impressions Head CT 03/17/21 17:01 IMPRESSION: No CT evidence of intracranial bleed or hemorrhage. Chest X-Ray 03/25/21 19:03 IMPRESSION: Unremarkable examination. Medications Medications Current Medications Acetaminophen (Acetaminophen 325 Mg Tablet) 650 mg PO Q6H PRN PRN Reason: Headache/Pain Mild Scale (1-3) Last Admin: 03/22/21 20:27 Dose: 650 mg Documented by: Al Hydroxide/Mg Hydroxide (Magnesium Hydrox/Alum Hydrox 30 Ml Oral.Susp) 30 ml PO Q6H PRN PRN Reason: Heartburn/Nausea Last Admin: 04/02/21 06:13 Dose: 30 ml Documented by: Alprazolam (Alprazolam 0.5 Mg Tablet) 1 mg PO TID PRN PRN Reason: Anxiety Last Admin: 04/04/21 22:13 Dose: 1 mg Documented by: Alprazolam (Alprazolam 0.5 Mg Tablet) 0.5 mg PO BID [facility] Last Admin: 04/04/21 22:16 Dose: 0.5 mg Documented by: Amphetamine/Dextroamphetamine (Amphetamine Mixed Salts 20 Mg Tablet) 20 mg PO DAILY [facility] Last Admin: 04/04/21 08:44 Dose: 20 mg Documented by: Docusate Sodium (Docusate Sodium 100 Mg Capsule) 100 mg PO DAILY PRN PRN Reason: Constipation Last Admin: 03/28/21 08:20 Dose: 100 mg Documented by: Fluticasone Propionate (Fluticasone Propionate Nasal 16 Gm [place]) 1 - 2 spray NOSTRIL-B DAILY [facility] Last Admin: 04/04/21 08:44 Dose: 1 spray Documented by: Haloperidol Lactate (Haloperidol Lactate 5 Mg/Ml Vial) 5 mg IM Q4H PRN PRN Reason: risk of self-injurious behavio Last Admin: 03/31/21 22:38 Dose: 5 mg Documented by: Hydroxyzine HCl (Hydroxyzine Hcl 25 Mg Tablet) 25 mg PO BEDTIME PRN PRN Reason: Anxiety Last Admin: 04/04/21 22:15 Dose: 25 mg Documented by: Lactulose (Lactulose 20 Gm/30 Ml Solution) 30 gm PO BID PRN PRN Reason: Constipation Last Admin: 03/28/21 22:24 Dose: 30 gm Documented by: [place] Carbonate ([place] Carbonate Er 300 Mg Tablet.Er) 600 mg PO BID [facility] Last Admin: 04/04/21 22:16 Dose: 600 mg Documented by: Lorazepam (Lorazepam 2 Mg/Ml Vial) 2 mg IM Q4H PRN PRN Reason: risk of serious self injury Last Admin: 03/31/21 22:38 Dose: 2 mg Documented by: Magnesium Hydroxide (Milk Of Magnesia 30 Ml Oral.Susp) 30 ml PO DAILY PRN PRN Reason: Constipation Last Admin: 03/28/21 22:23 Dose: 30 ml Documented by: Melatonin (Melatonin 3 Mg Tablet) 6 mg PO BEDTIME PRN PRN Reason: sleep Last Admin: 04/04/21 22:15 Dose: 6 mg Documented by: Nicotine Polacrilex (Nicotine Polacrilex 2 Mg Gum) 2 mg BUCCAL Q1H PRN PRN Reason: Nicotine Cravings Last Admin: 04/04/21 20:10 Dose: 2 mg Documented by: Patient Own Medication ( Desvenlafaxine Er 100 Mg) 1 each PO DAILY [facility] Last Admin: 04/04/21 08:43 Dose: 1 each Documented by: Olanzapine (Olanzapine 10 Mg Tablet) 10 mg PO Q6H PRN PRN Reason: agitation, anxiety Last Admin: 04/04/21 11:44 Dose: 10 mg Documented by: Prazosin HCl (Prazosin Hcl 1 Mg Capsule) 2 mg PO BEDTIME [facility]; Protocol Last Admin: 04/04/21 22:14 Dose: 2 mg Documented by: Prazosin HCl (Prazosin Hcl 5 Mg Capsule) 10 mg PO BEDTIME [facility]; Protocol Last Admin: 04/04/21 22:14 Dose: 10 mg Documented by: Senna/Docusate Sodium (Sennosides/Docusate Sodium Tablet) 1 tab PO BID [facility] Last Admin: 04/04/21 22:16 Dose: 1 tab Documented by: Sertraline HCl (Sertraline Hcl 25 Mg Tablet) 75 mg PO DAILY [facility] Last Admin: 04/04/21 08:44 Dose: 75 mg Documented by: Thiamine HCl (Thiamine Hcl 100 Mg Tablet) 100 mg PO DAILY [facility] Last Admin: 04/04/21 08:44 Dose: 100 mg Documented by: Trazodone HCl (Trazodone Hcl 100 Mg Tablet) 300 mg PO BEDTIME [facility] Last Admin: 04/04/21 22:12 Dose: 300 mg Documented by: Trazodone HCl (Trazodone Hcl 50 Mg Tablet) 50 mg PO BEDTIME PRN PRN Reason: Insomnia Last Admin: 04/04/21 04:39 Dose: 50 mg Documented by: Vitamin D (Cholecalciferol (Vitamin D3) 25 Mcg Tablet) 50 mcg PO DAILY [facility] Last Admin: 04/04/21 08:44 Dose: 50 mcg Documented by: Allergies Allergies Allergy/AdvReac Type Severity Reaction Status Date / Time Sulfa (Sulfonamide Allergy Unknown HIVES Verified 03/15/21 14:13 Antibiotics) [SULFA (SULFONAMIDE ANTIBIOTICS)] sulfamethoxazole Allergy Unknown HIVES Verified 03/15/21 14:13 [From BACTRIM] trimethoprim [From BACTRIM] Allergy Unknown HIVES Verified 03/15/21 14:13 Assessment & Plan Assessment & Plan (1) PTSD (post-traumatic stress disorder): Status: Acute Code(s): F43.10 - Post-traumatic stress disorder, unspecified (2) MDD (major depressive disorder), recurrent severe, without psychosis: Status: Acute Code(s): F33.2 - Major depressive disorder, recurrent severe without psychotic features Assessment and Plan: continue outpt meds. admitted to [facility] for safety and containment. 1:1 after head banging and reportedly wrapping sheets around neck in shower. 03/17 ativan dosing changed from 1 TID to 1 BID and 1 PRN daily, per pt request. med changes discussed at length 03/18, 03/19.? trying to obtain genetic testing report from medical records. zoloft 50 mg daily in addition to pristiq as of 03/20. thorazine 100 mg Q4H PRN added 03/23 for impulses to self-harm. D/C'd 03/31 due to pt reporting sedation but no benefit. Start zyprexa 5 mg Q6H PRN on 03/31 for anxious distress. 04/01: no med changes, monitor for benefit and continue 1:1 for safety 04/02: Increased zyprexa to 10 mg Q6H PRN for anxious agitation, distress, urges to self harm. Will decrease ativan to 1 mg QHS and 0.5 mg QAM per pt request, as they want to reduce polypharm. IMs of ativan and haldol added PRN imminent self-harm as of 03/24. PRNs of xanax 1 mg added 03/25 for not quite imminent self-harm. senna/colace scheduled as of 03/30. observe for stability, keep safe. investigate resi DBT programs for dispo options. 04/03/2021 Continue one-to-one patient ruminating staff and grief depressive is suicidal reaction. Reviewed treatment history and different options. Had done best the past after residential treatment m clean states she has done best with the alpra zolam will change Ativan to alprazolam has had ECT in the past under similar circumstances. Ketamine not an inpatient option. Courage grounding and coping strategies. 04/04/2020 Try in reengage with patient unclear reason for next remit guardedness and withdrawal remains on one-to-one discharge plan courage increase behavioral activation I spent minutes with the patient and/or on the patient floor today, greater than?50% of which was spent counseling/coordinating care. Reason for contiued inpatient stay Substantial Risk for: harm to self
[2021-04-05 08:00] VITALS: BP 111/59; PULSE 73; RESP 18; TEMP 36.3; O2SAT 99
[2021-04-05] MEDS: Fluticasone Propionate Nasal 16 GM SPRAY NOSTRIL-B (09:46)
[2021-04-05] MEDS: Sertraline HCL 25 MG TABLET 75 MG PO (09:48)
[2021-04-05] MEDS: Lithium Carbonate ER 300 MG TABLET.ER 600 MG PO ×2 (09:48→21:49)
[2021-04-05] MEDS: Thiamine HCL 100 MG TABLET PO (09:48)
[2021-04-05] MEDS: Sennosides/Docusate Sodium TABLET 1 TAB PO ×2 (09:49→21:52)
[2021-04-05] MEDS: ALPRAZolam 0.5 MG TABLET PO (09:49)
[2021-04-05] MEDS: Amphetamine Mixed Salts 20 MG TABLET PO (09:49)
[2021-04-05] MEDS: Cholecalciferol (Vitamin D3) 25 MCG TABLET 50 MCG PO (09:49)
[2021-04-05] MEDS: OLANZapine 10 MG TABLET PO ×2 (10:22→18:45)
[2021-04-05] MEDS: Acetaminophen 325 MG TABLET 650 MG PO (10:22)
--- NOTE | 2021-04-05 14:29 | HO.PSYCHPN ---
Subjective Subjective Date of Service: 04/05/21 Reason For Visit: SI Subjective Notes: Conditional Voluntary Healthcare Proxy: No Guardianship: No Interim History: Patient with some periods of increased activation alternating with periods of severe despair hopelessness and thoughts of self-harm. Remains on one-to-one for safety. Can be rejection sensitive. Review of Systems Medical Review of Systems: unchanged Mental Status Exam Mental Status Exam Narrative: Patient seen in her room with sitter casually dressed appropriately groomed. Complained of problems falling and staying asleep. Appeared depressed constricted affecthopeless helpless despondent with thoughts that she would be better off withdrawn soft-spoken denied denied active intent has thought of multiple plans and feels unsafe if not on one-to-one no thoughts of harm to others no psychotic symptoms Diagnostics Vital Signs (24Hr): Vital Signs - 24 hr 04/04/21 22:14 04/04/21 22:19 Temperature 98.3 F Pulse Rate 73 73 Respiratory Rate 18 Blood Pressure 133/64 133/64 Pulse Oximetry 98 BMI result Body Mass Index 32.4 Labs Results: 03/14/21 15:38 03/14/21 15:37 Imaging Radiology Impressions: ITS Impressions Head CT 03/17/21 17:01 IMPRESSION: No CT evidence of intracranial bleed or hemorrhage. Chest X-Ray 03/25/21 19:03 IMPRESSION: Unremarkable examination. Medications Medications Current Medications Acetaminophen (Acetaminophen 325 Mg Tablet) 650 mg PO Q6H PRN PRN Reason: Headache/Pain Mild Scale (1-3) Last Admin: 04/05/21 10:22 Dose: 650 mg Documented by: Al Hydroxide/Mg Hydroxide (Magnesium Hydrox/Alum Hydrox 30 Ml Oral.Susp) 30 ml PO Q6H PRN PRN Reason: Heartburn/Nausea Last Admin: 04/02/21 06:13 Dose: 30 ml Documented by: Alprazolam (Alprazolam 0.5 Mg Tablet) 1 mg PO BEDTIME [facility] Alprazolam (Alprazolam 0.5 Mg Tablet) 0.5 mg PO DAILY [facility] Amphetamine/Dextroamphetamine (Amphetamine Mixed Salts 20 Mg Tablet) 20 mg PO DAILY [facility] Last Admin: 04/05/21 09:49 Dose: 20 mg Documented by: Docusate Sodium (Docusate Sodium 100 Mg Capsule) 100 mg PO DAILY PRN PRN Reason: Constipation Last Admin: 03/28/21 08:20 Dose: 100 mg Documented by: Fluticasone Propionate (Fluticasone Propionate Nasal 16 Gm [place]) 1 - 2 spray NOSTRIL-B DAILY [facility] Last Admin: 04/05/21 09:46 Dose: 1 spray Documented by: Haloperidol Lactate (Haloperidol Lactate 5 Mg/Ml Vial) 5 mg IM Q4H PRN PRN Reason: risk of self-injurious behavio Last Admin: 03/31/21 22:38 Dose: 5 mg Documented by: Hydroxyzine HCl (Hydroxyzine Hcl 25 Mg Tablet) 25 mg PO Q4H PRN PRN Reason: Anxiety Hydroxyzine HCl (Hydroxyzine Hcl 25 Mg Tablet) 25 mg PO BEDTIME [facility] Lactulose (Lactulose 20 Gm/30 Ml Solution) 30 gm PO BID PRN PRN Reason: Constipation Last Admin: 03/28/21 22:24 Dose: 30 gm Documented by: [place] Carbonate ([place] Carbonate Er 300 Mg Tablet.Er) 600 mg PO BID [facility] Last Admin: 04/05/21 09:48 Dose: 600 mg Documented by: Lorazepam (Lorazepam 2 Mg/Ml Vial) 2 mg IM Q4H PRN PRN Reason: risk of serious self injury Last Admin: 03/31/21 22:38 Dose: 2 mg Documented by: Magnesium Hydroxide (Milk Of Magnesia 30 Ml Oral.Susp) 30 ml PO DAILY PRN PRN Reason: Constipation Last Admin: 03/28/21 22:23 Dose: 30 ml Documented by: Melatonin (Melatonin 3 Mg Tablet) 10 mg PO BEDTIME [facility] Nicotine Polacrilex (Nicotine Polacrilex 2 Mg Gum) 2 mg BUCCAL Q1H PRN PRN Reason: Nicotine Cravings Last Admin: 04/04/21 20:10 Dose: 2 mg Documented by: Patient Own Medication ( Desvenlafaxine Er 100 Mg) 1 each PO DAILY [facility] Last Admin: 04/05/21 10:24 Dose: 1 each Documented by: Olanzapine (Olanzapine 10 Mg Tablet) 10 mg PO Q6H PRN PRN Reason: agitation, anxiety Last Admin: 04/05/21 10:22 Dose: 10 mg Documented by: Prazosin HCl (Prazosin Hcl 1 Mg Capsule) 2 mg PO BEDTIME [facility]; Protocol Last Admin: 04/04/21 22:14 Dose: 2 mg Documented by: Prazosin HCl (Prazosin Hcl 5 Mg Capsule) 10 mg PO BEDTIME [facility]; Protocol Last Admin: 04/04/21 22:14 Dose: 10 mg Documented by: Senna/Docusate Sodium (Sennosides/Docusate Sodium Tablet) 1 tab PO BID [facility] Last Admin: 04/05/21 09:49 Dose: 1 tab Documented by: Sertraline HCl (Sertraline Hcl 25 Mg Tablet) 75 mg PO DAILY [facility] Last Admin: 04/05/21 09:48 Dose: 75 mg Documented by: Sodium Chloride (Sodium Chloride 0.65 % Nasal 44 Ml Sprbtl) 1 spray NOSTRIL-B Q1H PRN PRN Reason: Nasal Congestion Thiamine HCl (Thiamine Hcl 100 Mg Tablet) 100 mg PO DAILY [facility] Last Admin: 04/05/21 09:48 Dose: 100 mg Documented by: Trazodone HCl (Trazodone Hcl 100 Mg Tablet) 300 mg PO BEDTIME [facility] Last Admin: 04/04/21 22:12 Dose: 300 mg Documented by: Trazodone HCl (Trazodone Hcl 50 Mg Tablet) 50 mg PO BEDTIME PRN PRN Reason: Insomnia Last Admin: 04/04/21 04:39 Dose: 50 mg Documented by: Vitamin D (Cholecalciferol (Vitamin D3) 25 Mcg Tablet) 50 mcg PO DAILY [facility] Last Admin: 04/05/21 09:49 Dose: 50 mcg Documented by: Allergies Allergies Allergy/AdvReac Type Severity Reaction Status Date / Time Sulfa (Sulfonamide Allergy Unknown HIVES Verified 03/15/21 14:13 Antibiotics) [SULFA (SULFONAMIDE ANTIBIOTICS)] sulfamethoxazole Allergy Unknown HIVES Verified 03/15/21 14:13 [From BACTRIM] trimethoprim [From BACTRIM] Allergy Unknown HIVES Verified 03/15/21 14:13 Assessment & Plan Assessment & Plan (1) PTSD (post-traumatic stress disorder): Status: Acute Code(s): F43.10 - Post-traumatic stress disorder, unspecified (2) MDD (major depressive disorder), recurrent severe, without psychosis: Status: Acute Code(s): F33.2 - Major depressive disorder, recurrent severe without psychotic features Assessment and Plan: continue outpt meds. admitted to for safety and containment. 1:1 after head banging and reportedly wrapping sheets around neck in shower. 03/17 ativan dosing changed from 1 TID to 1 BID and 1 PRN daily, per pt request. med changes discussed at length 03/18, 03/19.? trying to obtain genetic testing report from medical records. zoloft 50 mg daily in addition to pristiq as of 03/20. thorazine 100 mg Q4H PRN added 03/23 for impulses to self-harm. D/C'd 03/31 due to pt reporting sedation but no benefit. Start zyprexa 5 mg Q6H PRN on 03/31 for anxious distress. 04/01: no med changes, monitor for benefit and continue 1:1 for safety 04/02: Increased zyprexa to 10 mg Q6H PRN for anxious agitation, distress, urges to self harm. Will decrease ativan to 1 mg QHS and 0.5 mg QAM per pt request, as they want to reduce polypharm. IMs of ativan and haldol added PRN imminent self-harm as of 03/24. PRNs of xanax 1 mg added 03/25 for not quite imminent self-harm. senna/colace scheduled as of 03/30. observe for stability, keep safe. investigate resi DBT programs for dispo options. 04/03/2021 Continue one-to-one patient ruminating staff and grief depressive is suicidal reaction. Reviewed treatment history and different options. Had done best the past after residential treatment m clean states she has done best with the alprazolam will change Ativan to alprazolam has had ECT in the past under similar circumstances. Ketamine not an inpatient option. Courage grounding and coping strategies. 04/04/2020 Try in reengage with patient unclear reason for next remit guardedness and withdrawal remains on one-to-one discharge plan courage increase behavioral activation 04/05/2021 Patient seen in psychiatric follow-up chart reviewed patient seen. Patient remains severely depressed withdrawn encourage behavioral activation use of CBT skills sertraline increased to 75 mg alprazolam changed to 0.5 in morning 1 mg at bedtime this seemed more effective than lorazepam I spent minutes with the patient and/or on the patient floor today, greater than?50% of which was spent counseling/coordinating care. Reason for contiued inpatient stay Substantial Risk for: harm to self
[2021-04-05 18:00] VITALS: BP 120/75; PULSE 78; RESP 18; TEMP 36.6; O2SAT 94
[2021-04-05] MEDS: ALPRAZolam 0.5 MG TABLET 1 MG PO ×2 (19:12→21:50)
[2021-04-05] MEDS: traZODone HCL 100 MG TABLET 300 MG PO (21:50)
[2021-04-05] MEDS: Melatonin 3 MG TABLET 10 MG PO (21:51)
[2021-04-05 21:52] VITALS: BP 140/62; PULSE 79
[2021-04-05] MEDS: Prazosin HCL 1 MG CAPSULE 2 MG PO (21:52)
[2021-04-05] MEDS: Prazosin HCL 5 MG CAPSULE 10 MG PO (21:52)
[2021-04-05] MEDS: hydrOXYzine HCL 25 MG TABLET PO (21:53)
[2021-04-06 08:20] VITALS: BP 131/75; PULSE 90; RESP 16; TEMP 36.5; O2SAT 95
[2021-04-06] MEDS: Fluticasone Propionate Nasal 16 GM SPRAY NOSTRIL-B (08:26)
[2021-04-06] MEDS: Cholecalciferol (Vitamin D3) 25 MCG TABLET 50 MCG PO (08:27)
[2021-04-06] MEDS: Amphetamine Mixed Salts 20 MG TABLET PO (08:27)
[2021-04-06] MEDS: ALPRAZolam 0.5 MG TABLET PO (08:28)
[2021-04-06] MEDS: Lithium Carbonate ER 300 MG TABLET.ER 600 MG PO ×2 (08:28→21:43)
[2021-04-06] MEDS: Sertraline HCL 25 MG TABLET 75 MG PO (08:28)
[2021-04-06] MEDS: Sennosides/Docusate Sodium TABLET 1 TAB PO ×2 (08:29→21:46)
[2021-04-06] MEDS: Thiamine HCL 100 MG TABLET PO (08:29)
[2021-04-06] MEDS: OLANZapine 10 MG TABLET PO (11:45)
[2021-04-06] MEDS: ALPRAZolam 0.5 MG TABLET 1 MG PO ×2 (11:46→21:45)
[2021-04-06] MEDS: Acetaminophen 325 MG TABLET 650 MG PO (14:46)
--- NOTE | 2021-04-06 16:45 | HO.PSYCHPN ---
Subjective Subjective Date of Service: 04/06/21 Reason For Visit: SI Subjective Notes: Conditional Voluntary Interim History: The nursing staff reports the patient has a one-to-one for safety. She slept 8 hours and apparently she has eaten all her meals. On interview, the patient denies new symptoms she is able to contract for safety under is no self-harming behavior at this moment. She denies side effects with her medications. She was being able to socialize with other peers and participating in groups but overall, her mood remains dysphoric Mental Status Exam Mental Status Exam Patient Appearance: Well Grooomed Patient Orientation: Person Level of Consciousness: Awake Patient Behavior: Cooperative Mood Description: Depressed Affect Description: Constricted Patient Cognition Impaired: No Ability to Follow Directions: Fair Speech Pattern: Clear Hallucinations: None Delusions: Not Present Thought Process: Linear Thought Content: positive for Poverty of Content Judgement: Fair Diagnostics Vital Signs (24Hr): Vital Signs - 24 hr 04/05/21 18:00 04/05/21 21:52 04/06/21 08:20 Temperature 97.9 F 97.7 F Pulse Rate 78 79 90 Respiratory Rate 18 16 Blood Pressure 120/75 140/62 H 131/75 Pulse Oximetry 94 95 BMI result Body Mass Index 32.4 Labs Results: 03/14/21 15:38 03/14/21 15:37 Imaging Radiology Impressions: ITS Impressions Head CT 03/17/21 17:01 IMPRESSION: No CT evidence of intracranial bleed or hemorrhage. Chest X-Ray 03/25/21 19:03 IMPRESSION: Unremarkable examination. Medications Medications Current Medications Acetaminophen (Acetaminophen 325 Mg Tablet) 650 mg PO Q6H PRN PRN Reason: Headache/Pain Mild Scale (1-3) Last Admin: 04/06/21 14:46 Dose: 650 mg Documented by: Al Hydroxide/Mg Hydroxide (Magnesium Hydrox/Alum Hydrox 30 Ml Oral.Susp) 30 ml PO Q6H PRN PRN Reason: Heartburn/Nausea Last Admin: 04/02/21 06:13 Dose: 30 ml Documented by: Alprazolam (Alprazolam 0.5 Mg Tablet) 1 mg PO BEDTIME [facility] Last Admin: 04/05/21 21:50 Dose: 1 mg Documented by: Alprazolam (Alprazolam 0.5 Mg Tablet) 0.5 mg PO DAILY [facility] Last Admin: 04/06/21 08:28 Dose: 0.5 mg Documented by: Alprazolam (Alprazolam 0.5 Mg Tablet) 1 mg PO BID PRN PRN Reason: Anxiety Last Admin: 04/06/21 11:46 Dose: 1 mg Documented by: Amphetamine/Dextroamphetamine (Amphetamine Mixed Salts 20 Mg Tablet) 20 mg PO DAILY [facility] Last Admin: 04/06/21 08:27 Dose: 20 mg Documented by: Docusate Sodium (Docusate Sodium 100 Mg Capsule) 100 mg PO DAILY PRN PRN Reason: Constipation Last Admin: 03/28/21 08:20 Dose: 100 mg Documented by: Fluticasone Propionate (Fluticasone Propionate Nasal 16 Gm [place]) 1 - 2 spray NOSTRIL-B DAILY [facility] Last Admin: 04/06/21 08:26 Dose: 1 spray Documented by: Haloperidol Lactate (Haloperidol Lactate 5 Mg/Ml Vial) 5 mg IM Q4H PRN PRN Reason: risk of self-injurious behavio Last Admin: 03/31/21 22:38 Dose: 5 mg Documented by: Hydroxyzine HCl (Hydroxyzine Hcl 25 Mg Tablet) 25 mg PO Q4H PRN PRN Reason: Anxiety Hydroxyzine HCl (Hydroxyzine Hcl 25 Mg Tablet) 25 mg PO BEDTIME [facility] Last Admin: 04/05/21 21:53 Dose: 25 mg Documented by: Lactulose (Lactulose 20 Gm/30 Ml Solution) 30 gm PO BID PRN PRN Reason: Constipation Last Admin: 03/28/21 22:24 Dose: 30 gm Documented by: [place] Carbonate ([place] Carbonate Er 300 Mg Tablet.Er) 600 mg PO BID [facility] Last Admin: 04/06/21 08:28 Dose: 600 mg Documented by: Lorazepam (Lorazepam 2 Mg/Ml Vial) 2 mg IM Q4H PRN PRN Reason: risk of serious self injury Last Admin: 03/31/21 22:38 Dose: 2 mg Documented by: Magnesium Hydroxide (Milk Of Magnesia 30 Ml Oral.Susp) 30 ml PO DAILY PRN PRN Reason: Constipation Last Admin: 03/28/21 22:23 Dose: 30 ml Documented by: Melatonin (Melatonin 3 Mg Tablet) 10 mg PO BEDTIME [facility] Last Admin: 04/05/21 21:51 Dose: 9 mg Documented by: Nicotine Polacrilex (Nicotine Polacrilex 2 Mg Gum) 2 mg BUCCAL Q1H PRN PRN Reason: Nicotine Cravings Last Admin: 04/04/21 20:10 Dose: 2 mg Documented by: Patient Own Medication ( Desvenlafaxine Er 100 Mg) 1 each PO DAILY [facility] Last Admin: 04/06/21 08:27 Dose: 1 each Documented by: Olanzapine (Olanzapine 10 Mg Tablet) 10 mg PO Q6H PRN PRN Reason: agitation, anxiety Last Admin: 04/06/21 11:45 Dose: 10 mg Documented by: Prazosin HCl (Prazosin Hcl 1 Mg Capsule) 2 mg PO BEDTIME [facility]; Protocol Last Admin: 04/05/21 21:52 Dose: 2 mg Documented by: Prazosin HCl (Prazosin Hcl 5 Mg Capsule) 10 mg PO BEDTIME [facility]; Protocol Last Admin: 04/05/21 21:52 Dose: 10 mg Documented by: Senna/Docusate Sodium (Sennosides/Docusate Sodium Tablet) 1 tab PO BID [facility] Last Admin: 04/06/21 08:29 Dose: 1 tab Documented by: Sertraline HCl (Sertraline Hcl 25 Mg Tablet) 75 mg PO DAILY [facility] Last Admin: 04/06/21 08:28 Dose: 75 mg Documented by: Sodium Chloride (Sodium Chloride 0.65 % Nasal 44 Ml Sprbtl) 1 spray NOSTRIL-B Q1H PRN PRN Reason: Nasal Congestion Thiamine HCl (Thiamine Hcl 100 Mg Tablet) 100 mg PO DAILY [facility] Last Admin: 04/06/21 08:29 Dose: 100 mg Documented by: Trazodone HCl (Trazodone Hcl 100 Mg Tablet) 300 mg PO BEDTIME [facility] Last Admin: 04/05/21 21:50 Dose: 300 mg Documented by: Trazodone HCl (Trazodone Hcl 50 Mg Tablet) 50 mg PO BEDTIME PRN PRN Reason: Insomnia Last Admin: 04/04/21 04:39 Dose: 50 mg Documented by: Vitamin D (Cholecalciferol (Vitamin D3) 25 Mcg Tablet) 50 mcg PO DAILY [facility] Last Admin: 04/06/21 08:27 Dose: 50 mcg Documented by: Allergies Allergies Allergy/AdvReac Type Severity Reaction Status Date / Time Sulfa (Sulfonamide Allergy Unknown HIVES Verified 03/15/21 14:13 Antibiotics) [SULFA (SULFONAMIDE ANTIBIOTICS)] sulfamethoxazole Allergy Unknown HIVES Verified 03/15/21 14:13 [From BACTRIM] trimethoprim [From BACTRIM] Allergy Unknown HIVES Verified 03/15/21 14:13 Assessment & Plan Assessment & Plan (1) PTSD (post-traumatic stress disorder): Status: Acute Code(s): F43.10 - Post-traumatic stress disorder, unspecified (2) MDD (major depressive disorder), recurrent severe, without psychosis: Status: Acute Code(s): F33.2 - Major depressive disorder, recurrent severe without psychotic features Assessment and Plan: continue outpt meds. admitted to [facility] for safety and containment. 1:1 after head banging and reportedly wrapping sheets around neck in shower. 03/17 ativan dosing changed from 1 TID to 1 BID and 1 PRN daily, per pt request. med changes discussed at length 03/18, 03/19.? trying to obtain genetic testing report from medical records. zoloft 50 mg daily in addition to pristiq as of 03/20. thorazine 100 mg Q4H PRN added 03/23 for impulses to self-harm. D/C'd 03/31 due to pt reporting sedation but no benefit. Start zyprexa 5 mg Q6H PRN on 03/31 for anxious distress. 04/01: no med changes, monitor for benefit and continue 1:1 for safety 04/02: Increased zyprexa to 10 mg Q6H PRN for anxious agitation, distress, urges to self harm. Will decrease ativan to 1 mg QHS and 0.5 mg QAM per pt request, as they want to reduce polypharm. IMs of ativan and haldol added PRN imminent self-harm as of 03/24. PRNs of xanax 1 mg added 03/25 for not quite imminent self-harm. senna/colace scheduled as of 03/30. observe for stability, keep safe. investigate resi DBT programs for dispo options. 04/03/2021 Continue one-to-one patient ruminating staff and grief depressive is suicidal reaction. Reviewed treatment history and different options. Had done best the past after residential treatment m clean states she has done best with the alprazolam will change Ativan to alprazolam has had ECT in the past under similar circumstances. Ketamine not an inpatient option. Courage grounding and coping strategies. 04/04/2020 Try in reengage with patient unclear reason for next remit guardedness and withdrawal remains on one-to-one discharge plan courage increase behavioral activation 04/05/2021 Patient seen in psychiatric follow-up chart reviewed patient seen. Patient remains severely depressed withdrawn encourage behavioral activation use of CBT skills sertraline increased to 75 mg alprazolam changed to 0.5 in morning 1 mg at bedtime this seemed more effective than lorazepam 04/06 Remains dysphoric but safe in the facility. I spent minutes with the patient and/or on the patient floor today, greater than?50% of which was spent counseling/coordinating care. Reason for contiued inpatient stay Substantial Risk for: inability to function, rapid decompensation and med/psych decompensation
[2021-04-06 21:40] VITALS: BP 130/74; PULSE 77; RESP 17; TEMP 36.8; O2SAT 99
[2021-04-06] MEDS: Melatonin 3 MG TABLET 10 MG PO (21:42)
[2021-04-06] MEDS: traZODone HCL 100 MG TABLET 300 MG PO (21:43)
[2021-04-06] MEDS: hydrOXYzine HCL 25 MG TABLET PO (21:44)
[2021-04-06] MEDS: Prazosin HCL 1 MG CAPSULE 2 MG PO (21:44)
[2021-04-06] MEDS: Prazosin HCL 5 MG CAPSULE 10 MG PO (21:45)
[2021-04-07] MEDS: Acetaminophen 325 MG TABLET 650 MG PO ×2 (05:50→16:41)
[2021-04-07 08:00] VITALS: BP 106/74; PULSE 66; TEMP 36.7; O2SAT 97
[2021-04-07] MEDS: Sertraline HCL 25 MG TABLET 75 MG PO (09:05)
[2021-04-07] MEDS: Cholecalciferol (Vitamin D3) 25 MCG TABLET 50 MCG PO (09:06)
[2021-04-07] MEDS: Lithium Carbonate ER 300 MG TABLET.ER 600 MG PO ×2 (09:06→21:06)
[2021-04-07] MEDS: Sennosides/Docusate Sodium TABLET 1 TAB PO ×2 (09:07→21:07)
[2021-04-07] MEDS: Thiamine HCL 100 MG TABLET PO (09:07)
[2021-04-07] MEDS: Amphetamine Mixed Salts 20 MG TABLET PO (09:07)
[2021-04-07] MEDS: ALPRAZolam 0.5 MG TABLET PO (09:07)
[2021-04-07] MEDS: Fluticasone Propionate Nasal 16 GM SPRAY NOSTRIL-B (10:03)
[2021-04-07] MEDS: Sodium Chloride 0.65 % Nasal 44 ML SPRBTL 1 SPRAY NOSTRIL-B ×2 (10:08→16:41)
[2021-04-07] MEDS: ALPRAZolam 0.5 MG TABLET 1 MG PO ×2 (12:49→21:05)
[2021-04-07] MEDS: OLANZapine 7.5 MG TABLET PO (12:50)
[2021-04-07 21:05] VITALS: BP 120/69; PULSE 69; RESP 18; TEMP 36.8; O2SAT 98
[2021-04-07] MEDS: Melatonin 3 MG TABLET 9 MG PO (21:06)
[2021-04-07] MEDS: hydrOXYzine HCL 25 MG TABLET PO (21:06)
[2021-04-07] MEDS: traZODone HCL 100 MG TABLET 300 MG PO (21:07)
[2021-04-07] MEDS: Prazosin HCL 5 MG CAPSULE 10 MG PO (21:08)
[2021-04-07] MEDS: Prazosin HCL 1 MG CAPSULE 4 MG PO (21:08)
--- NOTE | 2021-04-07 21:08 | HO.PSYCHPN ---
Subjective Subjective Date of Service: 04/07/21 Reason For Visit: SI Interim History: intermittent SI. powerfiul when it happens, but not all the time. same for SIBI. with 1:1 less likely to hurt self, but wants to see if she can refrain from hurting herself off of 1:1. asks to transition to Q5 min checks, which is accommodated. discuss discharge, aware of aftercare plan with 2 options for seeing therapists/groups that work with persons who have lost a baby. considering leaving late this week or early next week. states it depends on how she does off of 1:1. per staff, some pacing, quiet. no HI/AVH. passive SI. some napping. questioning plans for discharge. pleasant, no unsafe behaviors. Mental Status Exam Mental Status Exam Narrative: Appearance: in milieu doing art project Behavior:cooperative psychomotor: no agitation or retardation noted Speech:clear, normal rate/rhythm/volume, spontaneous Thought process:linear Thought content:no signs of psychosis Mood: depressed Affect: constricted, normo-intense, non-labile SI: endorses intermittent SI/SIBI. HI:none expressed VH/AH:none expressed Delusions:none expressed Diagnostics Vital Signs (24Hr): Vital Signs - 24 hr 04/06/21 21:40 04/07/21 08:00 Temperature 98.2 F 98.0 F Pulse Rate 77 66 Respiratory Rate 17 Blood Pressure 130/74 106/74 Pulse Oximetry 99 97 BMI result Body Mass Index 32.4 Labs Results: 03/14/21 15:38 03/14/21 15:37 Imaging Radiology Impressions: ITS Impressions Head CT 03/17/21 17:01 IMPRESSION: No CT evidence of intracranial bleed or hemorrhage. Chest X-Ray 03/25/21 19:03 IMPRESSION: Unremarkable examination. Medications Medications Current Medications Acetaminophen (Acetaminophen 325 Mg Tablet) 650 mg PO Q6H PRN PRN Reason: Headache/Pain Mild Scale (1-3) Last Admin: 04/07/21 16:41 Dose: 650 mg Documented by: Al Hydroxide/Mg Hydroxide (Magnesium Hydrox/Alum Hydrox 30 Ml Oral.Susp) 30 ml PO Q6H PRN PRN Reason: Heartburn/Nausea Last Admin: 04/02/21 06:13 Dose: 30 ml Documented by: Alprazolam (Alprazolam 0.5 Mg Tablet) 1 mg PO BEDTIME [facility] Last Admin: 04/06/21 21:45 Dose: 1 mg Documented by: Alprazolam (Alprazolam 0.5 Mg Tablet) 0.5 mg PO DAILY [facility] Last Admin: 04/07/21 09:07 Dose: 0.5 mg Documented by: Alprazolam (Alprazolam 0.5 Mg Tablet) 1 mg PO BID PRN PRN Reason: Anxiety Last Admin: 04/07/21 12:49 Dose: 1 mg Documented by: Amphetamine/Dextroamphetamine (Amphetamine Mixed Salts 20 Mg Tablet) 20 mg PO DAILY [facility] Last Admin: 04/07/21 09:07 Dose: 20 mg Documented by: Docusate Sodium (Docusate Sodium 100 Mg Capsule) 100 mg PO DAILY PRN PRN Reason: Constipation Last Admin: 03/28/21 08:20 Dose: 100 mg Documented by: Fluticasone Propionate (Fluticasone Propionate Nasal 16 Gm [place]) 1 - 2 spray NOSTRIL-B DAILY [facility] Last Admin: 04/07/21 10:03 Dose: 1 spray Documented by: Haloperidol Lactate (Haloperidol Lactate 5 Mg/Ml Vial) 5 mg IM Q4H PRN PRN Reason: risk of self-injurious behavio Last Admin: 03/31/21 22:38 Dose: 5 mg Documented by: Hydroxyzine HCl (Hydroxyzine Hcl 25 Mg Tablet) 25 mg PO Q4H PRN PRN Reason: Anxiety Hydroxyzine HCl (Hydroxyzine Hcl 25 Mg Tablet) 25 mg PO BEDTIME [facility] Last Admin: 04/06/21 21:44 Dose: 25 mg Documented by: Lactulose (Lactulose 20 Gm/30 Ml Solution) 30 gm PO BID PRN PRN Reason: Constipation Last Admin: 03/28/21 22:24 Dose: 30 gm Documented by: [place] Carbonate ([place] Carbonate Er 300 Mg Tablet.Er) 600 mg PO BID [facility] Last Admin: 04/07/21 09:06 Dose: 600 mg Documented by: Lorazepam (Lorazepam 2 Mg/Ml Vial) 2 mg IM Q4H PRN PRN Reason: risk of serious self injury Last Admin: 03/31/21 22:38 Dose: 2 mg Documented by: Magnesium Hydroxide (Milk Of Magnesia 30 Ml Oral.Susp) 30 ml PO DAILY PRN PRN Reason: Constipation Last Admin: 03/28/21 22:23 Dose: 30 ml Documented by: Melatonin (Melatonin 3 Mg Tablet) 9 mg PO BEDTIME [facility] Nicotine Polacrilex (Nicotine Polacrilex 2 Mg Gum) 2 mg BUCCAL Q1H PRN PRN Reason: Nicotine Cravings Last Admin: 04/04/21 20:10 Dose: 2 mg Documented by: Patient Own Medication ( Desvenlafaxine Er 100 Mg) 1 each PO DAILY [facility] Last Admin: 04/07/21 09:09 Dose: 1 each Documented by: Olanzapine (Olanzapine 7.5 Mg Tablet) 7.5 mg PO Q6H PRN PRN Reason: agitation, anxiety Last Admin: 04/07/21 12:50 Dose: 7.5 mg Documented by: Prazosin HCl (Prazosin Hcl 5 Mg Capsule) 10 mg PO BEDTIME [facility]; Protocol Last Admin: 04/06/21 21:45 Dose: 10 mg Documented by: Prazosin HCl (Prazosin Hcl 1 Mg Capsule) 4 mg PO BEDTIME [facility]; Protocol Senna/Docusate Sodium (Sennosides/Docusate Sodium Tablet) 1 tab PO BID [facility] Last Admin: 04/07/21 09:07 Dose: 1 tab Documented by: Sertraline HCl (Sertraline Hcl 25 Mg Tablet) 75 mg PO DAILY [facility] Last Admin: 04/07/21 09:05 Dose: 75 mg Documented by: Sodium Chloride (Sodium Chloride 0.65 % Nasal 44 Ml Sprbtl) 1 spray NOSTRIL-B Q1H PRN PRN Reason: Nasal Congestion Last Admin: 04/07/21 16:41 Dose: 1 spray Documented by: Thiamine HCl (Thiamine Hcl 100 Mg Tablet) 100 mg PO DAILY [facility] Last Admin: 04/07/21 09:07 Dose: 100 mg Documented by: Trazodone HCl (Trazodone Hcl 100 Mg Tablet) 300 mg PO BEDTIME [facility] Last Admin: 04/06/21 21:43 Dose: 300 mg Documented by: Trazodone HCl (Trazodone Hcl 50 Mg Tablet) 50 mg PO BEDTIME PRN PRN Reason: Insomnia Last Admin: 04/04/21 04:39 Dose: 50 mg Documented by: Vitamin D (Cholecalciferol (Vitamin D3) 25 Mcg Tablet) 50 mcg PO DAILY [facility] Last Admin: 04/07/21 09:06 Dose: 50 mcg Documented by: Allergies Allergies Allergy/AdvReac Type Severity Reaction Status Date / Time Sulfa (Sulfonamide Allergy Unknown HIVES Verified 03/15/21 14:13 Antibiotics) [SULFA (SULFONAMIDE ANTIBIOTICS)] sulfamethoxazole Allergy Unknown HIVES Verified 03/15/21 14:13 [From BACTRIM] trimethoprim [From BACTRIM] Allergy Unknown HIVES Verified 03/15/21 14:13 Assessment & Plan Assessment & Plan (1) PTSD (post-traumatic stress disorder): Status: Acute Code(s): F43.10 - Post-traumatic stress disorder, unspecified (2) MDD (major depressive disorder), recurrent severe, without psychosis: Status: Acute Code(s): F33.2 - Major depressive disorder, recurrent severe without psychotic features Assessment and Plan: continue outpt meds. admitted to [facility] for safety and containment. 1:1 after head banging and reportedly wrapping sheets around neck in shower. 03/17 ativan dosing changed from 1 TID to 1 BID and 1 PRN daily, per pt request. med changes discussed at length 03/18, 03/19.? trying to obtain genetic testing report from medical records. zoloft 50 mg daily in addition to pristiq as of 03/20. thorazine 100 mg Q4H PRN added 03/23 for impulses to self-harm. D/C'd 03/31 due to pt reporting sedation but no benefit. Start zyprexa 5 mg Q6H PRN on 03/31 for anxious distress. 04/01: no med changes, monitor for benefit and continue 1:1 for safety 04/02: Increased zyprexa to 10 mg Q6H PRN for anxious agitation, distress, urges to self harm. Will decrease ativan to 1 mg QHS and 0.5 mg QAM per pt request, as they want to reduce polypharm. IMs of ativan and haldol added PRN imminent self-harm as of 03/24. PRNs of xanax 1 mg added 03/25 for not quite imminent self-harm. senna/colace scheduled as of 03/30. observe for stability, keep safe. investigate resi DBT programs for dispo options. 04/03/2021 Continue one-to-one patient ruminating staff and grief depressive is suicidal reaction. Reviewed treatment history and different options. Had done best the past after residential treatment rayo bob states she has done best with the alprazolam will change Ativan to alprazolam has had ECT in the past under similar circumstances. Ketamine not an inpatient option. Courage grounding and coping strategies. 04/04/2020 Try in reengage with patient unclear reason for next remit guardedness and withdrawal remains on one-to-one discharge plan courage increase behavioral activation 04/05/2021 Patient seen in psychiatric follow-up chart reviewed patient seen. Patient remains severely depressed withdrawn encourage behavioral activation use of CBT skills sertraline increased to 75 mg alprazolam changed to 0.5 in morning 1 mg at bedtime this seemed more effective than lorazepam 04/06 Remains dysphoric but safe in the facility. 04/07 as for yesterday. actively planning for discharge, focused on discharge I spent minutes with the patient and/or on the patient floor today, greater than?50% of which was spent counseling/coordinating care. Reason for contiued inpatient stay Substantial Risk for: harm to self, inability to function and rapid decompensation
[2021-04-08] MEDS: ALPRAZolam 0.5 MG TABLET 1 MG PO ×2 (06:11→21:39)
[2021-04-08] MEDS: OLANZapine 7.5 MG TABLET PO ×2 (06:12→14:13)
[2021-04-08 10:13] VITALS: BP 123/59; PULSE 103; RESP 16; TEMP 36.7; O2SAT 96
[2021-04-08] MEDS: Fluticasone Propionate Nasal 16 GM SPRAY NOSTRIL-B (10:15)
[2021-04-08] MEDS: Sodium Chloride 0.65 % Nasal 44 ML SPRBTL 1 SPRAY NOSTRIL-B ×2 (10:15→21:37)
[2021-04-08] MEDS: Sennosides/Docusate Sodium TABLET 1 TAB PO ×2 (10:16→21:41)
[2021-04-08] MEDS: Cholecalciferol (Vitamin D3) 25 MCG TABLET 50 MCG PO (10:16)
[2021-04-08] MEDS: Thiamine HCL 100 MG TABLET PO (10:16)
[2021-04-08] MEDS: ALPRAZolam 0.5 MG TABLET PO (10:16)
[2021-04-08] MEDS: Amphetamine Mixed Salts 20 MG TABLET PO (10:16)
[2021-04-08] MEDS: Lithium Carbonate ER 300 MG TABLET.ER 600 MG PO ×2 (10:16→21:38)
[2021-04-08] MEDS: Sertraline HCL 25 MG TABLET 75 MG PO (10:16)
--- NOTE | 2021-04-08 12:38 | HO.PSYCHPN ---
Subjective Subjective Date of Service: 04/08/21 Reason For Visit: SI Interim History: pt found in [facility] working on art project. comes to interview room with seb CABALLERO also present. pt reports Q5 min checks are going well, has not harmed self. states they are proud of self for having taken a shower and not engaged in self-harm, stating it is the first shower they can recall having taken here where they have not engaged in self harm. would like to stay through weekend to see how they do for that unstructured time and then discharge early/mid next week. responds that this is a reasonable plan. pt indicates SIBI is regular and powerful but that she has thus far been able to manage it. per staff, attending groups. on being askeed if she is safe, she replies, we'll see. expresses some anxiety due to a peer triggering her. anx 10/11, dep 12/12. showered without incident. Mental Status Exam Mental Status Exam Narrative: Appearance: in [facility] doing art project Behavior:cooperative psychomotor: no agitation or retardation noted Speech:clear, normal rate/rhythm/volume, spontaneous Thought process:linear Thought content:no signs of psychosis Mood: depressed Affect: constricted, normo-intense, non-labile SI: endorses intermittent SIBI. HI:none expressed VH/AH:none expressed Delusions:none expressed Diagnostics Vital Signs (24Hr): Vital Signs - 24 hr 04/07/21 21:05 04/08/21 10:13 Temperature 98.3 F 98.0 F Pulse Rate 69 103 H Respiratory Rate 18 16 Blood Pressure 120/69 123/59 L Pulse Oximetry 98 96 BMI result Body Mass Index 32.4 Labs Results: 03/14/21 15:38 03/14/21 15:37 Imaging Radiology Impressions: ITS Impressions Head CT 03/17/21 17:01 IMPRESSION: No CT evidence of intracranial bleed or hemorrhage. Chest X-Ray 03/25/21 19:03 IMPRESSION: Unremarkable examination. Medications Medications Current Medications Acetaminophen (Acetaminophen 325 Mg Tablet) 650 mg PO Q6H PRN PRN Reason: Headache/Pain Mild Scale (1-3) Last Admin: 04/07/21 16:41 Dose: 650 mg Documented by: Al Hydroxide/Mg Hydroxide (Magnesium Hydrox/Alum Hydrox 30 Ml Oral.Susp) 30 ml PO Q6H PRN PRN Reason: Heartburn/Nausea Last Admin: 04/02/21 06:13 Dose: 30 ml Documented by: Alprazolam (Alprazolam 0.5 Mg Tablet) 1 mg PO BEDTIME [facility] Last Admin: 04/07/21 21:05 Dose: 1 mg Documented by: Alprazolam (Alprazolam 0.5 Mg Tablet) 0.5 mg PO DAILY [facility] Last Admin: 04/08/21 10:16 Dose: 0.5 mg Documented by: Alprazolam (Alprazolam 0.5 Mg Tablet) 1 mg PO BID PRN PRN Reason: Anxiety Last Admin: 04/08/21 06:11 Dose: 1 mg Documented by: Amphetamine/Dextroamphetamine (Amphetamine Mixed Salts 20 Mg Tablet) 20 mg PO DAILY [facility] Last Admin: 04/08/21 10:16 Dose: 20 mg Documented by: Docusate Sodium (Docusate Sodium 100 Mg Capsule) 100 mg PO DAILY PRN PRN Reason: Constipation Last Admin: 03/28/21 08:20 Dose: 100 mg Documented by: Fluticasone Propionate (Fluticasone Propionate Nasal 16 Gm [place]) 1 - 2 spray NOSTRIL-B DAILY [facility] Last Admin: 04/08/21 10:15 Dose: 1 spray Documented by: Haloperidol Lactate (Haloperidol Lactate 5 Mg/Ml Vial) 5 mg IM Q4H PRN PRN Reason: risk of self-injurious behavio Last Admin: 03/31/21 22:38 Dose: 5 mg Documented by: Hydroxyzine HCl (Hydroxyzine Hcl 25 Mg Tablet) 25 mg PO Q4H PRN PRN Reason: Anxiety Hydroxyzine HCl (Hydroxyzine Hcl 25 Mg Tablet) 25 mg PO BEDTIME [facility] Last Admin: 04/07/21 21:06 Dose: 25 mg Documented by: Lactulose (Lactulose 20 Gm/30 Ml Solution) 30 gm PO BID PRN PRN Reason: Constipation Last Admin: 03/28/21 22:24 Dose: 30 gm Documented by: [place] Carbonate ([place] Carbonate Er 300 Mg Tablet.Er) 600 mg PO BID [facility] Last Admin: 04/08/21 10:16 Dose: 600 mg Documented by: Lorazepam (Lorazepam 2 Mg/Ml Vial) 2 mg IM Q4H PRN PRN Reason: risk of serious self injury Last Admin: 03/31/21 22:38 Dose: 2 mg Documented by: Magnesium Hydroxide (Milk Of Magnesia 30 Ml Oral.Susp) 30 ml PO DAILY PRN PRN Reason: Constipation Last Admin: 03/28/21 22:23 Dose: 30 ml Documented by: Melatonin (Melatonin 3 Mg Tablet) 9 mg PO BEDTIME [facility] Last Admin: 04/07/21 21:06 Dose: 9 mg Documented by: Nicotine Polacrilex (Nicotine Polacrilex 2 Mg Gum) 2 mg BUCCAL Q1H PRN PRN Reason: Nicotine Cravings Last Admin: 04/04/21 20:10 Dose: 2 mg Documented by: Patient Own Medication ( Desvenlafaxine Er 100 Mg) 1 each PO DAILY [facility] Last Admin: 04/08/21 10:15 Dose: 1 each Documented by: Olanzapine (Olanzapine 7.5 Mg Tablet) 7.5 mg PO Q6H PRN PRN Reason: agitation, anxiety Last Admin: 04/08/21 06:12 Dose: 7.5 mg Documented by: Prazosin HCl (Prazosin Hcl 5 Mg Capsule) 10 mg PO BEDTIME [facility]; Protocol Last Admin: 04/07/21 21:08 Dose: 10 mg Documented by: Prazosin HCl (Prazosin Hcl 1 Mg Capsule) 4 mg PO BEDTIME [facility]; Protocol Last Admin: 04/07/21 21:08 Dose: 4 mg Documented by: Senna/Docusate Sodium (Sennosides/Docusate Sodium Tablet) 1 tab PO BID [facility] Last Admin: 04/08/21 10:16 Dose: 1 tab Documented by: Sertraline HCl (Sertraline Hcl 25 Mg Tablet) 75 mg PO DAILY [facility] Last Admin: 04/08/21 10:16 Dose: 75 mg Documented by: Sodium Chloride (Sodium Chloride 0.65 % Nasal 44 Ml Sprbtl) 1 spray NOSTRIL-B Q1H PRN PRN Reason: Nasal Congestion Last Admin: 04/08/21 10:15 Dose: 1 spray Documented by: Thiamine HCl (Thiamine Hcl 100 Mg Tablet) 100 mg PO DAILY [facility] Last Admin: 04/08/21 10:16 Dose: 100 mg Documented by: Trazodone HCl (Trazodone Hcl 100 Mg Tablet) 300 mg PO BEDTIME [facility] Last Admin: 04/07/21 21:07 Dose: 300 mg Documented by: Trazodone HCl (Trazodone Hcl 50 Mg Tablet) 50 mg PO BEDTIME PRN PRN Reason: Insomnia Last Admin: 04/04/21 04:39 Dose: 50 mg Documented by: Vitamin D (Cholecalciferol (Vitamin D3) 25 Mcg Tablet) 50 mcg PO DAILY [facility] Last Admin: 04/08/21 10:16 Dose: 50 mcg Documented by: Allergies Allergies Allergy/AdvReac Type Severity Reaction Status Date / Time Sulfa (Sulfonamide Allergy Unknown HIVES Verified 03/15/21 14:13 Antibiotics) [SULFA (SULFONAMIDE ANTIBIOTICS)] sulfamethoxazole Allergy Unknown HIVES Verified 03/15/21 14:13 [From BACTRIM] trimethoprim [From BACTRIM] Allergy Unknown HIVES Verified 03/15/21 14:13 Assessment & Plan Assessment & Plan (1) PTSD (post-traumatic stress disorder): Status: Acute Code(s): F43.10 - Post-traumatic stress disorder, unspecified (2) MDD (major depressive disorder), recurrent severe, without psychosis: Status: Acute Code(s): F33.2 - Major depressive disorder, recurrent severe without psychotic features Assessment and Plan: continue outpt meds. admitted to [facility] for safety and containment. 1:1 after head banging and reportedly wrapping sheets around neck in shower. 03/17 ativan dosing changed from 1 TID to 1 BID and 1 PRN daily, per pt request. med changes discussed at length 03/18, 03/19.? trying to obtain genetic testing report from medical records. zoloft 50 mg daily in addition to pristiq as of 03/20. thorazine 100 mg Q4H PRN added 03/23 for impulses to self-harm. D/C'd 03/31 due to pt reporting sedation but no benefit. Start zyprexa 5 mg Q6H PRN on 03/31 for anxious distress. 04/01: no med changes, monitor for benefit and continue 1:1 for safety 04/02: Increased zyprexa to 10 mg Q6H PRN for anxious agitation, distress, urges to self harm. Will decrease ativan to 1 mg QHS and 0.5 mg QAM per pt request, as they want to reduce polypharm. IMs of ativan and haldol added PRN imminent self-harm as of 03/24. PRNs of xanax 1 mg added 03/25 for not quite imminent self-harm. senna/colace scheduled as of 03/30. observe for stability, keep safe. investigate resi DBT programs for dispo options. 04/03/2021 Continue one-to-one patient ruminating staff and grief depressive is suicidal reaction. Reviewed treatment history and different options. Had done best the past after residential treatment m clean states she has done best with the alprazolam will change Ativan to alprazolam has had ECT in the past under similar circumstances. Ketamine not an inpatient option. Courage grounding and coping strategies. 04/04/2020 Try in reengage with patient unclear reason for next remit guardedness and withdrawal remains on one-to-one discharge plan courage increase behavioral activation 04/05/2021 Patient seen in psychiatric follow-up chart reviewed patient seen. Patient remains severely depressed withdrawn encourage behavioral activation use of CBT skills sertraline increased to 75 mg alprazolam changed to 0.5 in morning 1 mg at bedtime this seemed more effective than lorazepam 04/06 Remains dysphoric but safe in the facility. 04/07 as for yesterday. actively planning for discharge, focused on discharge. 04/08 placed on Q5 min checks 04/07, no self-harm in the past 24H. otherwise clinical presentation is stable. I spent minutes with the patient and/or on the patient floor today, greater than?50% of which was spent counseling/coordinating care. Reason for contiued inpatient stay Substantial Risk for: harm to self, inability to function and rapid decompensation
[2021-04-08] MEDS: Milk of Magnesia 30 ML ORAL.SUSP PO (14:22)
[2021-04-08 21:30] VITALS: BP 137/63; PULSE 71; RESP 18; TEMP 36.5; O2SAT 99
[2021-04-08] MEDS: Prazosin HCL 1 MG CAPSULE 4 MG PO (21:37)
[2021-04-08] MEDS: Prazosin HCL 5 MG CAPSULE 10 MG PO (21:37)
[2021-04-08] MEDS: traZODone HCL 100 MG TABLET 300 MG PO (21:40)
[2021-04-08] MEDS: Melatonin 3 MG TABLET 9 MG PO (21:40)
[2021-04-08] MEDS: hydrOXYzine HCL 25 MG TABLET PO (21:41)
[2021-04-09 08:18] VITALS: BP 131/80; PULSE 83; RESP 17; TEMP 36.9; O2SAT 96
[2021-04-09] MEDS: Fluticasone Propionate Nasal 16 GM SPRAY NOSTRIL-B (08:32)
[2021-04-09] MEDS: Sodium Chloride 0.65 % Nasal 44 ML SPRBTL 1 SPRAY NOSTRIL-B (08:32)
[2021-04-09] MEDS: Milk of Magnesia 30 ML ORAL.SUSP PO (08:33)
[2021-04-09] MEDS: Lithium Carbonate ER 300 MG TABLET.ER 600 MG PO ×2 (08:34→20:20)
[2021-04-09] MEDS: Sertraline HCL 25 MG TABLET 75 MG PO (08:34)
[2021-04-09] MEDS: Sennosides/Docusate Sodium TABLET 1 TAB PO ×2 (08:35→20:21)
[2021-04-09] MEDS: Amphetamine Mixed Salts 20 MG TABLET PO (08:35)
[2021-04-09] MEDS: Cholecalciferol (Vitamin D3) 25 MCG TABLET 50 MCG PO (08:35)
[2021-04-09] MEDS: ALPRAZolam 0.5 MG TABLET PO (08:35)
[2021-04-09] MEDS: Thiamine HCL 100 MG TABLET PO (08:36)
[2021-04-09] MEDS: OLANZapine 7.5 MG TABLET PO ×2 (08:53→16:02)
[2021-04-09 08:57] VITALS: BMI 49.1
[2021-04-09] MEDS: ALPRAZolam 0.5 MG TABLET 1 MG PO (16:01)
--- NOTE | 2021-04-09 16:38 | P.PNPSI_ITS ---
Subjective Subjective Date of Service: 04/09/21 Reason For Visit: SI Interim History: remains with intermittent SIBI but able to manage the feelings and urges. has not engaged in any self-harm since last meeting. requests zyprexa 7.5 mg up to 4x daily, which is accommodated. c/o some twitching of the large muscles of her upper legs B/L, occasionally. MD reassures her it does not sound like a medication side effect from olanzapine. no other complaints or requests. per staff, mid-level anxiety and depression. managing well off of 1:1. had severe SIBI last gi, but managed it. doing art, visible in milieu. Mental Status Exam Mental Status Exam Narrative: Appearance: in milieu doing art project Behavior:cooperative psychomotor: no agitation or retardation noted Speech:clear, normal rate/rhythm/volume, spontaneous Thought process:linear Thought content:no signs of psychosis Mood: depressed Affect: constricted, normo-intense, non-labile SI: endorses intermittent SIBI. HI:none expressed VH/AH:none expressed Delusions:none expressed Diagnostics Vital Signs (24Hr): Vital Signs - 24 hr 04/08/21 21:30 04/09/21 08:18 Temperature 97.7 F 98.4 F Pulse Rate 71 83 Respiratory Rate 18 17 Blood Pressure 137/63 131/80 Pulse Oximetry 99 96 BMI result Body Mass Index 49.1 Labs Results: 03/14/21 15:38 03/14/21 15:37 Imaging Radiology Impressions: ITS Impressions Head CT 03/17/21 17:01 IMPRESSION: No CT evidence of intracranial bleed or hemorrhage. Chest X-Ray 03/25/21 19:03 IMPRESSION: Unremarkable examination. Medications Medications Current Medications Acetaminophen (Acetaminophen 325 Mg Tablet) 650 mg PO Q6H PRN PRN Reason: Headache/Pain Mild Scale (1-3) Last Admin: 04/07/21 16:41 Dose: 650 mg Documented by: Al Hydroxide/Mg Hydroxide (Magnesium Hydrox/Alum Hydrox 30 Ml Oral.Susp) 30 ml PO Q6H PRN PRN Reason: Heartburn/Nausea Last Admin: 04/02/21 06:13 Dose: 30 ml Documented by: Alprazolam (Alprazolam 0.5 Mg Tablet) 1 mg PO BEDTIME [facility] Last Admin: 04/08/21 21:39 Dose: 1 mg Documented by: Alprazolam (Alprazolam 0.5 Mg Tablet) 0.5 mg PO DAILY [facility] Last Admin: 04/09/21 08:35 Dose: 0.5 mg Documented by: Alprazolam (Alprazolam 0.5 Mg Tablet) 1 mg PO BID PRN PRN Reason: Anxiety Last Admin: 04/09/21 16:01 Dose: 1 mg Documented by: Amphetamine/Dextroamphetamine (Amphetamine Mixed Salts 20 Mg Tablet) 20 mg PO DAILY [facility] Last Admin: 04/09/21 08:35 Dose: 20 mg Documented by: Docusate Sodium (Docusate Sodium 100 Mg Capsule) 100 mg PO DAILY PRN PRN Reason: Constipation Last Admin: 03/28/21 08:20 Dose: 100 mg Documented by: Fluticasone Propionate (Fluticasone Propionate Nasal 16 Gm [place]) 1 - 2 spray NOSTRIL-B DAILY [facility] Last Admin: 04/09/21 08:32 Dose: 1 spray Documented by: Haloperidol Lactate (Haloperidol Lactate 5 Mg/Ml Vial) 5 mg IM Q4H PRN PRN Reason: risk of self-injurious behavio Last Admin: 03/31/21 22:38 Dose: 5 mg Documented by: Hydroxyzine HCl (Hydroxyzine Hcl 25 Mg Tablet) 25 mg PO Q4H PRN PRN Reason: Anxiety Hydroxyzine HCl (Hydroxyzine Hcl 25 Mg Tablet) 25 mg PO BEDTIME [facility] Last Admin: 04/08/21 21:41 Dose: 25 mg Documented by: Lactulose (Lactulose 20 Gm/30 Ml Solution) 30 gm PO BID PRN PRN Reason: Constipation Last Admin: 03/28/21 22:24 Dose: 30 gm Documented by: [place] Carbonate ([place] Carbonate Er 300 Mg Tablet.Er) 600 mg PO BID [facility] Last Admin: 04/09/21 08:34 Dose: 600 mg Documented by: Lorazepam (Lorazepam 2 Mg/Ml Vial) 2 mg IM Q4H PRN PRN Reason: risk of serious self injury Last Admin: 03/31/21 22:38 Dose: 2 mg Documented by: Magnesium Hydroxide (Milk Of Magnesia 30 Ml Oral.Susp) 30 ml PO DAILY PRN PRN Reason: Constipation Last Admin: 04/09/21 08:33 Dose: 30 ml Documented by: Melatonin (Melatonin 3 Mg Tablet) 9 mg PO BEDTIME [facility] Last Admin: 04/08/21 21:40 Dose: 9 mg Documented by: Nicotine Polacrilex (Nicotine Polacrilex 2 Mg Gum) 2 mg BUCCAL Q1H PRN PRN Reason: Nicotine Cravings Last Admin: 04/04/21 20:10 Dose: 2 mg Documented by: Patient Own Medication ( Desvenlafaxine Er 100 Mg) 1 each PO DAILY [facility] Last Admin: 04/09/21 08:33 Dose: 1 each Documented by: Olanzapine (Olanzapine 7.5 Mg Tablet) 7.5 mg PO Q6H PRN PRN Reason: agitation, anxiety Last Admin: 04/09/21 16:02 Dose: 7.5 mg Documented by: Prazosin HCl (Prazosin Hcl 5 Mg Capsule) 10 mg PO BEDTIME [facility]; Protocol Last Admin: 04/08/21 21:37 Dose: 10 mg Documented by: Prazosin HCl (Prazosin Hcl 1 Mg Capsule) 4 mg PO BEDTIME [facility]; Protocol Last Admin: 04/08/21 21:37 Dose: 4 mg Documented by: Senna/Docusate Sodium (Sennosides/Docusate Sodium Tablet) 1 tab PO BID [facility] Last Admin: 04/09/21 08:35 Dose: 1 tab Documented by: Sertraline HCl (Sertraline Hcl 25 Mg Tablet) 75 mg PO DAILY [facility] Last Admin: 04/09/21 08:34 Dose: 75 mg Documented by: Sodium Chloride (Sodium Chloride 0.65 % Nasal 44 Ml Sprbtl) 1 spray NOSTRIL-B Q1H PRN PRN Reason: Nasal Congestion Last Admin: 04/09/21 08:32 Dose: 1 spray Documented by: Thiamine HCl (Thiamine Hcl 100 Mg Tablet) 100 mg PO DAILY [facility] Last Admin: 04/09/21 08:36 Dose: 100 mg Documented by: Trazodone HCl (Trazodone Hcl 100 Mg Tablet) 300 mg PO BEDTIME [facility] Last Admin: 04/08/21 21:40 Dose: 300 mg Documented by: Trazodone HCl (Trazodone Hcl 50 Mg Tablet) 50 mg PO BEDTIME PRN PRN Reason: Insomnia Last Admin: 04/04/21 04:39 Dose: 50 mg Documented by: Vitamin D (Cholecalciferol (Vitamin D3) 25 Mcg Tablet) 50 mcg PO DAILY [facility] Last Admin: 04/09/21 08:35 Dose: 50 mcg Documented by: Allergies Allergies Allergy/AdvReac Type Severity Reaction Status Date / Time Sulfa (Sulfonamide Allergy Unknown HIVES Verified 03/15/21 14:13 Antibiotics) [SULFA (SULFONAMIDE ANTIBIOTICS)] sulfamethoxazole Allergy Unknown HIVES Verified 03/15/21 14:13 [From BACTRIM] trimethoprim [From BACTRIM] Allergy Unknown HIVES Verified 03/15/21 14:13 Assessment & Plan Assessment & Plan (1) PTSD (post-traumatic stress disorder): Status: Acute Code(s): F43.10 - Post-traumatic stress disorder, unspecified (2) MDD (major depressive disorder), recurrent severe, without psychosis: Status: Acute Code(s): F33.2 - Major depressive disorder, recurrent severe without psychotic features Assessment and Plan: continue outpt meds. admitted to [facility] for safety and containment. 1:1 after head banging and reportedly wrapping sheets around neck in shower. 03/17 ativan dosing changed from 1 TID to 1 BID and 1 PRN daily, per pt request. med changes discussed at length 03/18, 03/19.? trying to obtain genetic testing report from medical records. zoloft 50 mg daily in addition to pristiq as of 03/20. thorazine 100 mg Q4H PRN added 03/23 for impulses to self-harm. D/C'd 03/31 due to pt reporting sedation but no benefit. Start zyprexa 5 mg Q6H PRN on 03/31 for anxious distress. 04/01: no med changes, monitor for benefit and continue 1:1 for safety 04/02: Increased zyprexa to 10 mg Q6H PRN for anxious agitation, distress, urges to self harm. Will decrease ativan to 1 mg QHS and 0.5 mg QAM per pt request, as they want to reduce polypharm. IMs of ativan and haldol added PRN imminent self-harm as of 03/24. PRNs of xanax 1 mg added 03/25 for not quite imminent self-harm. senna/colace scheduled as of 03/30. observe for stability, keep safe. investigate resi DBT programs for dispo options. 04/03/2021 Continue one-to-one patient ruminating staff and grief depressive is suicidal reaction. Reviewed treatment history and different options. Had done best the past after residential treatment m clean states she has done best with the alprazolam will change Ativan to alprazolam has had ECT in the past under similar circumstances. Ketamine not an inpatient option. Courage grounding and coping strategies. 04/04/2020 Try in reengage with patient unclear reason for next remit guardedness and withdrawal remains on one-to-one discharge plan courage increase behavioral activation 04/05/2021 Patient seen in psychiatric follow-up chart reviewed patient seen. Patient remains severely depressed withdrawn encourage behavioral activation use of CBT skills sertraline increased to 75 mg alprazolam changed to 0.5 in morning 1 mg at bedtime this seemed more effective than lorazepam 04/06 Remains dysphoric but safe in the facility. 04/07 as for yesterday. actively planning for discharge, focused on discharge. 04/08 - 04/09 placed on Q5 min checks 04/07, no self-harm in the past 24H. otherwise clinical presentation is stable. I spent minutes with the patient and/or on the patient floor today, greater than?50% of which was spent counseling/coordinating care. Reason for contiued inpatient stay Substantial Risk for: harm to self, inability to function and rapid decompensation
[2021-04-09] MEDS: Haloperidol Lactate 5 MG/ML VIAL IM (19:48)
[2021-04-09] MEDS: LORazepam 2 MG/ML VIAL IM (19:48)
[2021-04-09 19:58] VITALS: BP 113/59; PULSE 87; RESP 17; TEMP 36.9; O2SAT 96
[2021-04-09 20:12] VITALS: BP 114/67; PULSE 89
--- NOTE | 2021-04-09 20:12 | PC.NURSE ---
This patient approached staff and mentioned that they were lightly head banging while in the shower, and that they feel like they may do it more. Patient asked for IM medication, as it helped them out at an earlier date. Patient has order in for Ativan 2 mg and haldol 5 mg IM (see MAR for reference). Medications administered per JUN. Vitals signs documented.
[2021-04-09] MEDS: Prazosin HCL 1 MG CAPSULE 4 MG PO (20:20)
[2021-04-09] MEDS: Prazosin HCL 5 MG CAPSULE 10 MG PO (20:21)
[2021-04-09] MEDS: Melatonin 3 MG TABLET 9 MG PO (20:21)
[2021-04-09] MEDS: traZODone HCL 100 MG TABLET 300 MG PO (20:21)
[2021-04-09] MEDS: hydrOXYzine HCL 25 MG TABLET PO (20:22)
[2021-04-09 20:30] VITALS: BP 120/74; PULSE 68; RESP 18; TEMP 36.8; O2SAT 98
[2021-04-09 21:15] VITALS: BP 118/72; PULSE 70; RESP 18; O2SAT 98
--- NOTE | 2021-04-09 22:27 | PC.NURSE ---
Pt was showering at approximately 1830 and was engaging in head banging in the shower. Pt reported to t/w at 1900 that they needed to talk and stated I need to tell you something and I fked up. When I was taking a shower I was head banging. I knew I could do it because I didn't have a 1:1. I felt powerful in a powerless situation. I don't feel that way outside the shower. Pt requesting to have 1:1 during showering and was able to contract for safety outside of the shower. Pt was flat when reporting this and reported feeling empty . Pt requested an IM and to have t/w speak [place]ER[place]. Matilde CABALLERO was notified and Jonathan CABALLERO administered IM. Matilde CABALLERO sat with pt. Pt went to sleep at approximately 20:45 with no incidence.
[2021-04-10 07:48] VITALS: BP 125/70; PULSE 74; RESP 16; TEMP 36.8; O2SAT 96
[2021-04-10] MEDS: Sodium Chloride 0.65 % Nasal 44 ML SPRBTL 1 SPRAY NOSTRIL-B ×2 (07:53→22:37)
[2021-04-10] MEDS: Fluticasone Propionate Nasal 16 GM SPRAY NOSTRIL-B (07:53)
[2021-04-10] MEDS: Cholecalciferol (Vitamin D3) 25 MCG TABLET 50 MCG PO (07:54)
[2021-04-10] MEDS: Thiamine HCL 100 MG TABLET PO (07:54)
[2021-04-10] MEDS: Sertraline HCL 25 MG TABLET 75 MG PO (07:54)
[2021-04-10] MEDS: Lithium Carbonate ER 300 MG TABLET.ER 600 MG PO ×2 (07:54→22:34)
[2021-04-10] MEDS: ALPRAZolam 0.5 MG TABLET PO (07:54)
[2021-04-10] MEDS: OLANZapine 7.5 MG TABLET PO ×3 (07:55→22:33)
[2021-04-10] MEDS: Amphetamine Mixed Salts 20 MG TABLET PO (07:55)
[2021-04-10] MEDS: Sennosides/Docusate Sodium TABLET 1 TAB PO ×2 (07:55→22:34)
[2021-04-10] MEDS: Acetaminophen 325 MG TABLET 650 MG PO (12:39)
--- NOTE | 2021-04-10 14:57 | HO.PSYCHPN ---
Subjective Subjective Date of Service: 04/10/21 Reason For Visit: SI Interim History: pt reports some head-banging in shower last night. unable to say why she succumbed to the urge other than that the urge had not presented itself previously in the shower. asking for 1:1 while in shower, which was accommodated. requested to remain on Q5 min checks. planning for discharge mid next week. per staff, head-banging in the shower. asked for and received PRN of haldol and ativan IM. had zyprexa PRN this morning. Mental Status Exam Mental Status Exam Narrative: Appearance: in milieu doing art project Behavior:cooperative psychomotor: no agitation or retardation noted Speech:clear, normal rate/rhythm/volume, spontaneous Thought process:linear Thought content:no signs of psychosis Mood: depressed Affect: constricted, normo-intense, non-labile SI: endorses intermittent SIBI. HI:none expressed VH/AH:none expressed Delusions:none expressed Diagnostics Vital Signs (24Hr): Vital Signs - 24 hr 04/09/21 19:58 04/09/21 20:12 04/09/21 20:30 Temperature 98.5 F 98.2 F Pulse Rate 87 89 68 Respiratory Rate 17 18 Blood Pressure 113/59 L 114/67 120/74 Pulse Oximetry 96 98 04/09/21 21:15 04/10/21 07:48 Temperature 98.2 F Pulse Rate 70 74 Respiratory Rate 18 16 Blood Pressure 118/72 125/70 Pulse Oximetry 98 96 BMI result Body Mass Index 49.1 Labs Results: 03/14/21 15:38 03/14/21 15:37 Imaging Radiology Impressions: ITS Impressions Head CT 03/17/21 17:01 IMPRESSION: No CT evidence of intracranial bleed or hemorrhage. Chest X-Ray 03/25/21 19:03 IMPRESSION: Unremarkable examination. Medications Medications Current Medications Acetaminophen (Acetaminophen 325 Mg Tablet) 650 mg PO Q6H PRN PRN Reason: Headache/Pain Mild Scale (1-3) Last Admin: 04/10/21 12:39 Dose: 650 mg Documented by: Al Hydroxide/Mg Hydroxide (Magnesium Hydrox/Alum Hydrox 30 Ml Oral.Susp) 30 ml PO Q6H PRN PRN Reason: Heartburn/Nausea Last Admin: 04/02/21 06:13 Dose: 30 ml Documented by: Alprazolam (Alprazolam 0.5 Mg Tablet) 1 mg PO BEDTIME [facility] Last Admin: 04/09/21 21:46 Dose: Not Given Documented by: Alprazolam (Alprazolam 0.5 Mg Tablet) 0.5 mg PO DAILY [facility] Last Admin: 04/10/21 07:54 Dose: 0.5 mg Documented by: Alprazolam (Alprazolam 0.5 Mg Tablet) 1 mg PO BID PRN PRN Reason: Anxiety Last Admin: 04/09/21 16:01 Dose: 1 mg Documented by: Amphetamine/Dextroamphetamine (Amphetamine Mixed Salts 20 Mg Tablet) 20 mg PO DAILY [facility] Last Admin: 04/10/21 07:55 Dose: 20 mg Documented by: Docusate Sodium (Docusate Sodium 100 Mg Capsule) 100 mg PO DAILY PRN PRN Reason: Constipation Last Admin: 03/28/21 08:20 Dose: 100 mg Documented by: Fluticasone Propionate (Fluticasone Propionate Nasal 16 Gm [place]) 1 - 2 spray NOSTRIL-B DAILY [facility] Last Admin: 04/10/21 07:53 Dose: 1 spray Documented by: Haloperidol Lactate (Haloperidol Lactate 5 Mg/Ml Vial) 5 mg IM Q4H PRN PRN Reason: risk of self-injurious behavio Last Admin: 04/09/21 19:48 Dose: 5 mg Documented by: Hydroxyzine HCl (Hydroxyzine Hcl 25 Mg Tablet) 25 mg PO Q4H PRN PRN Reason: Anxiety Hydroxyzine HCl (Hydroxyzine Hcl 25 Mg Tablet) 25 mg PO BEDTIME [facility] Last Admin: 04/09/21 20:22 Dose: 25 mg Documented by: Lactulose (Lactulose 20 Gm/30 Ml Solution) 30 gm PO BID PRN PRN Reason: Constipation Last Admin: 03/28/21 22:24 Dose: 30 gm Documented by: [place] Carbonate ([place] Carbonate Er 300 Mg Tablet.Er) 600 mg PO BID [facility] Last Admin: 04/10/21 07:54 Dose: 600 mg Documented by: Magnesium Hydroxide (Milk Of Magnesia 30 Ml Oral.Susp) 30 ml PO DAILY PRN PRN Reason: Constipation Last Admin: 04/09/21 08:33 Dose: 30 ml Documented by: Melatonin (Melatonin 3 Mg Tablet) 9 mg PO BEDTIME [facility] Last Admin: 04/09/21 20:21 Dose: 9 mg Documented by: Nicotine Polacrilex (Nicotine Polacrilex 2 Mg Gum) 2 mg BUCCAL Q1H PRN PRN Reason: Nicotine Cravings Last Admin: 04/04/21 20:10 Dose: 2 mg Documented by: Patient Own Medication ( Desvenlafaxine Er 100 Mg) 1 each PO DAILY [facility] Last Admin: 04/10/21 07:53 Dose: 1 each Documented by: Olanzapine (Olanzapine 7.5 Mg Tablet) 7.5 mg PO Q4H PRN PRN Reason: agitation, anxiety Last Admin: 04/10/21 07:55 Dose: 7.5 mg Documented by: Prazosin HCl (Prazosin Hcl 5 Mg Capsule) 10 mg PO BEDTIME [facility]; Protocol Last Admin: 04/09/21 20:21 Dose: 10 mg Documented by: Prazosin HCl (Prazosin Hcl 1 Mg Capsule) 4 mg PO BEDTIME [facility]; Protocol Last Admin: 04/09/21 20:20 Dose: 4 mg Documented by: Senna/Docusate Sodium (Sennosides/Docusate Sodium Tablet) 1 tab PO BID [facility] Last Admin: 04/10/21 07:55 Dose: 1 tab Documented by: Sertraline HCl (Sertraline Hcl 25 Mg Tablet) 75 mg PO DAILY [facility] Last Admin: 04/10/21 07:54 Dose: 75 mg Documented by: Sodium Chloride (Sodium Chloride 0.65 % Nasal 44 Ml Sprbtl) 1 spray NOSTRIL-B Q1H PRN PRN Reason: Nasal Congestion Last Admin: 04/10/21 07:53 Dose: 1 spray Documented by: Thiamine HCl (Thiamine Hcl 100 Mg Tablet) 100 mg PO DAILY [facility] Last Admin: 04/10/21 07:54 Dose: 100 mg Documented by: Trazodone HCl (Trazodone Hcl 100 Mg Tablet) 300 mg PO BEDTIME [facility] Last Admin: 04/09/21 20:21 Dose: 300 mg Documented by: Trazodone HCl (Trazodone Hcl 50 Mg Tablet) 50 mg PO BEDTIME PRN PRN Reason: Insomnia Last Admin: 04/04/21 04:39 Dose: 50 mg Documented by: Vitamin D (Cholecalciferol (Vitamin D3) 25 Mcg Tablet) 50 mcg PO DAILY [facility] Last Admin: 04/10/21 07:54 Dose: 50 mcg Documented by: Allergies Allergies Allergy/AdvReac Type Severity Reaction Status Date / Time Sulfa (Sulfonamide Allergy Unknown HIVES Verified 03/15/21 14:13 Antibiotics) [SULFA (SULFONAMIDE ANTIBIOTICS)] sulfamethoxazole Allergy Unknown HIVES Verified 03/15/21 14:13 [From BACTRIM] trimethoprim [From BACTRIM] Allergy Unknown HIVES Verified 03/15/21 14:13 Assessment & Plan Assessment & Plan (1) PTSD (post-traumatic stress disorder): Status: Acute Code(s): F43.10 - Post-traumatic stress disorder, unspecified (2) MDD (major depressive disorder), recurrent severe, without psychosis: Status: Acute Code(s): F33.2 - Major depressive disorder, recurrent severe without psychotic features Assessment and Plan: continue outpt meds. admitted to [facility] for safety and containment. 1:1 after head banging and reportedly wrapping sheets around neck in shower. 03/17 ativan dosing changed from 1 TID to 1 BID and 1 PRN daily, per pt request. med changes discussed at length 03/18, 03/19.? trying to obtain genetic testing report from medical records. zoloft 50 mg daily in addition to pristiq as of 03/20. thorazine 100 mg Q4H PRN added 03/23 for impulses to self-harm. D/C'd 03/31 due to pt reporting sedation but no benefit. Start zyprexa 5 mg Q6H PRN on 03/31 for anxious distress. 04/01: no med changes, monitor for benefit and continue 1:1 for safety 04/02: Increased zyprexa to 10 mg Q6H PRN for anxious agitation, distress, urges to self harm. Will decrease ativan to 1 mg QHS and 0.5 mg QAM per pt request, as they want to reduce polypharm. IMs of ativan and haldol added PRN imminent self-harm as of 03/24. PRNs of xanax 1 mg added 03/25 for not quite imminent self-harm. senna/colace scheduled as of 03/30. observe for stability, keep safe. investigate resi DBT programs for dispo options. 04/03/2021 Continue one-to-one patient ruminating staff and grief depressive is suicidal reaction. Reviewed treatment history and different options. Had done best the past after residential treatment m clean states she has done best with the alprazolam will change Ativan to alprazolam has had ECT in the past under similar circumstances. Ketamine not an inpatient option. Courage grounding and coping strategies. 04/04/2020 Try in reengage with patient unclear reason for next remit guardedness and withdrawal remains on one-to-one discharge plan courage increase behavioral activation 04/05/2021 Patient seen in psychiatric follow-up chart reviewed patient seen. Patient remains severely depressed withdrawn encourage behavioral activation use of CBT skills sertraline increased to 75 mg alprazolam changed to 0.5 in morning 1 mg at bedtime this seemed more effective than lorazepam 04/06 Remains dysphoric but safe in the facility. 04/07 as for yesterday. actively planning for discharge, focused on discharge. 04/08 - 04/09 placed on Q5 min checks 04/07, no self-harm in the past 24H. otherwise clinical presentation is stable. 04/10 some head-banging in shower 04/09 gi. I spent ___15___ minutes with the patient and/or on the patient floor today, greater than?50% of which was spent counseling/coordinating care. Reason for contiued inpatient stay Substantial Risk for: harm to self
[2021-04-10] MEDS: ALPRAZolam 0.5 MG TABLET 1 MG PO (15:57)
[2021-04-10] MEDS: Prazosin HCL 1 MG CAPSULE 4 MG PO (22:34)
[2021-04-10] MEDS: Melatonin 3 MG TABLET 9 MG PO (22:34)
[2021-04-10] MEDS: hydrOXYzine HCL 25 MG TABLET PO (22:34)
[2021-04-10] MEDS: traZODone HCL 100 MG TABLET 300 MG PO (22:34)
[2021-04-10] MEDS: Prazosin HCL 5 MG CAPSULE 10 MG PO (22:35)
[2021-04-10 22:39] VITALS: TEMP 36.2; O2SAT 97
[2021-04-11] MEDS: Fluticasone Propionate Nasal 16 GM SPRAY NOSTRIL-B (08:14)
[2021-04-11] MEDS: Thiamine HCL 100 MG TABLET PO (08:14)
[2021-04-11] MEDS: Amphetamine Mixed Salts 20 MG TABLET PO (08:14)
[2021-04-11] MEDS: Sodium Chloride 0.65 % Nasal 44 ML SPRBTL 1 SPRAY NOSTRIL-B ×2 (08:14→21:43)
[2021-04-11] MEDS: Sertraline HCL 25 MG TABLET 75 MG PO (08:15)
[2021-04-11] MEDS: ALPRAZolam 0.5 MG TABLET PO (08:15)
[2021-04-11] MEDS: Lithium Carbonate ER 300 MG TABLET.ER 600 MG PO ×2 (08:15→21:38)
[2021-04-11] MEDS: Cholecalciferol (Vitamin D3) 25 MCG TABLET 50 MCG PO (08:15)
[2021-04-11] MEDS: Sennosides/Docusate Sodium TABLET 1 TAB PO ×2 (08:15→21:39)
[2021-04-11 08:19] VITALS: BP 127/70; PULSE 86; RESP 16; TEMP 36.6; O2SAT 97
[2021-04-11] MEDS: OLANZapine 7.5 MG TABLET PO ×2 (09:10→21:38)
[2021-04-11] MEDS: Magnesium Hydrox/Alum Hydrox 30 ML ORAL.SUSP PO (11:03)
[2021-04-11] MEDS: ALPRAZolam 0.5 MG TABLET 1 MG PO ×2 (14:26→21:38)
--- NOTE | 2021-04-11 18:52 | P.PNPSI_ITS ---
Subjective Subjective Date of Service: 04/11/21 Reason For Visit: SI Interim History: pt feels they are doing well currently, ably handled the triggering of a dysregulated peer last gi. settles on tuesday as a good day for discharge, feeling confident. no other complaints or requests. per staff, no self-harm after exposure to dysregulated peer last evening. c/o twitching legs/ happy and hopeful for DC next week. Mental Status Exam Mental Status Exam Narrative: Appearance: in milieu doing art project Behavior:cooperative psychomotor: no agitation or retardation noted Speech:clear, normal rate/rhythm/volume, spontaneous Thought process:linear Thought content:no signs of psychosis Mood: improving Affect: more flexible, normo-intense, non-labile SI: none expressed HI: none expressed VH/AH: none expressed Delusions: none expressed Diagnostics Vital Signs (24Hr): Vital Signs - 24 hr 04/10/21 22:39 04/11/21 08:19 Temperature 97.2 F 97.8 F Pulse Rate 86 Respiratory Rate 16 Blood Pressure 127/70 Pulse Oximetry 97 97 BMI result Body Mass Index 49.1 Labs Results: 03/14/21 15:38 03/14/21 15:37 Imaging Radiology Impressions: ITS Impressions Head CT 03/17/21 17:01 IMPRESSION: No CT evidence of intracranial bleed or hemorrhage. Chest X-Ray 03/25/21 19:03 IMPRESSION: Unremarkable examination. Medications Medications Current Medications Acetaminophen (Acetaminophen 325 Mg Tablet) 650 mg PO Q6H PRN PRN Reason: Headache/Pain Mild Scale (1-3) Last Admin: 04/10/21 12:39 Dose: 650 mg Documented by: Al Hydroxide/Mg Hydroxide (Magnesium Hydrox/Alum Hydrox 30 Ml Oral.Susp) 30 ml PO Q6H PRN PRN Reason: Heartburn/Nausea Last Admin: 04/11/21 11:03 Dose: 30 ml Documented by: Alprazolam (Alprazolam 0.5 Mg Tablet) 1 mg PO BID PRN PRN Reason: Anxiety Last Admin: 04/11/21 14:26 Dose: 1 mg Documented by: Alprazolam (Alprazolam 0.5 Mg Tablet) 0.5 mg PO DAILY [facility] Alprazolam (Alprazolam 0.5 Mg Tablet) 1 mg PO BEDTIME [facility] Amphetamine/Dextroamphetamine (Amphetamine Mixed Salts 20 Mg Tablet) 20 mg PO DAILY [facility] Last Admin: 04/11/21 08:14 Dose: 20 mg Documented by: Docusate Sodium (Docusate Sodium 100 Mg Capsule) 100 mg PO DAILY PRN PRN Reason: Constipation Last Admin: 03/28/21 08:20 Dose: 100 mg Documented by: Fluticasone Propionate (Fluticasone Propionate Nasal 16 Gm [place]) 1 - 2 spray NOSTRIL-B DAILY [facility] Last Admin: 04/11/21 08:14 Dose: 1 spray Documented by: Haloperidol Lactate (Haloperidol Lactate 5 Mg/Ml Vial) 5 mg IM Q4H PRN PRN Reason: risk of self-injurious behavio Last Admin: 04/09/21 19:48 Dose: 5 mg Documented by: Hydroxyzine HCl (Hydroxyzine Hcl 25 Mg Tablet) 25 mg PO Q4H PRN PRN Reason: Anxiety Hydroxyzine HCl (Hydroxyzine Hcl 25 Mg Tablet) 25 mg PO BEDTIME [facility] Last Admin: 04/10/21 22:34 Dose: 25 mg Documented by: Lactulose (Lactulose 20 Gm/30 Ml Solution) 30 gm PO BID PRN PRN Reason: Constipation Last Admin: 03/28/21 22:24 Dose: 30 gm Documented by: [place] Carbonate ([place] Carbonate Er 300 Mg Tablet.Er) 600 mg PO BID [facility] Last Admin: 04/11/21 08:15 Dose: 600 mg Documented by: Magnesium Hydroxide (Milk Of Magnesia 30 Ml Oral.Susp) 30 ml PO DAILY PRN PRN Reason: Constipation Last Admin: 04/09/21 08:33 Dose: 30 ml Documented by: Melatonin (Melatonin 3 Mg Tablet) 9 mg PO BEDTIME [facility] Last Admin: 04/10/21 22:34 Dose: 9 mg Documented by: Nicotine Polacrilex (Nicotine Polacrilex 2 Mg Gum) 2 mg BUCCAL Q1H PRN PRN Reason: Nicotine Cravings Last Admin: 04/04/21 20:10 Dose: 2 mg Documented by: Patient Own Medication ( Desvenlafaxine Er 100 Mg) 1 each PO DAILY [facility] Last Admin: 04/11/21 08:14 Dose: 1 each Documented by: Olanzapine (Olanzapine 7.5 Mg Tablet) 7.5 mg PO Q4H PRN PRN Reason: agitation, anxiety Last Admin: 04/11/21 09:10 Dose: 7.5 mg Documented by: Prazosin HCl (Prazosin Hcl 5 Mg Capsule) 10 mg PO BEDTIME [facility]; Protocol Last Admin: 04/10/21 22:35 Dose: 10 mg Documented by: Prazosin HCl (Prazosin Hcl 1 Mg Capsule) 4 mg PO BEDTIME [facility]; Protocol Last Admin: 04/10/21 22:34 Dose: 4 mg Documented by: Senna/Docusate Sodium (Sennosides/Docusate Sodium Tablet) 1 tab PO BID [facility] Last Admin: 04/11/21 08:15 Dose: 1 tab Documented by: Sertraline HCl (Sertraline Hcl 25 Mg Tablet) 75 mg PO DAILY [facility] Last Admin: 04/11/21 08:15 Dose: 75 mg Documented by: Sodium Chloride (Sodium Chloride 0.65 % Nasal 44 Ml Sprbtl) 1 spray NOSTRIL-B Q1H PRN PRN Reason: Nasal Congestion Last Admin: 04/11/21 08:14 Dose: 1 spray Documented by: Thiamine HCl (Thiamine Hcl 100 Mg Tablet) 100 mg PO DAILY [facility] Last Admin: 04/11/21 08:14 Dose: 100 mg Documented by: Trazodone HCl (Trazodone Hcl 100 Mg Tablet) 300 mg PO BEDTIME [facility] Last Admin: 04/10/21 22:34 Dose: 300 mg Documented by: Trazodone HCl (Trazodone Hcl 50 Mg Tablet) 50 mg PO BEDTIME PRN PRN Reason: Insomnia Last Admin: 04/04/21 04:39 Dose: 50 mg Documented by: Vitamin D (Cholecalciferol (Vitamin D3) 25 Mcg Tablet) 50 mcg PO DAILY [facility] Last Admin: 04/11/21 08:15 Dose: 50 mcg Documented by: Allergies Allergies Allergy/AdvReac Type Severity Reaction Status Date / Time Sulfa (Sulfonamide Allergy Unknown HIVES Verified 03/15/21 14:13 Antibiotics) [SULFA (SULFONAMIDE ANTIBIOTICS)] sulfamethoxazole Allergy Unknown HIVES Verified 03/15/21 14:13 [From BACTRIM] trimethoprim [From BACTRIM] Allergy Unknown HIVES Verified 03/15/21 14:13 Assessment & Plan Assessment & Plan (1) PTSD (post-traumatic stress disorder): Status: Acute Code(s): F43.10 - Post-traumatic stress disorder, unspecified (2) MDD (major depressive disorder), recurrent severe, without psychosis: Status: Acute Code(s): F33.2 - Major depressive disorder, recurrent severe without psychotic features Assessment and Plan: continue outpt meds. admitted to [facility] for safety and containment. 1:1 after head banging and reportedly wrapping sheets around neck in shower. 03/17 ativan dosing changed from 1 TID to 1 BID and 1 PRN daily, per pt request. med changes discussed at length 03/18, 03/19.? trying to obtain genetic testing report from medical records. zoloft 50 mg daily in addition to pristiq as of 03/20. thorazine 100 mg Q4H PRN added 03/23 for impulses to self-harm. D/C'd 03/31 due to pt reporting sedation but no benefit. Start zyprexa 5 mg Q6H PRN on 03/31 for anxious distress. 04/01: no med changes, monitor for benefit and continue 1:1 for safety 04/02: Increased zyprexa to 10 mg Q6H PRN for anxious agitation, distress, urges to self harm. Will decrease ativan to 1 mg QHS and 0.5 mg QAM per pt request, as they want to reduce polypharm. IMs of ativan and haldol added PRN imminent self-harm as of 03/24. PRNs of xanax 1 mg added 03/25 for not quite imminent self-harm. senna/colace scheduled as of 03/30. observe for stability, keep safe. investigate resi DBT programs for dispo options. 04/03/2021 Continue one-to-one patient ruminating staff and grief depressive is suicidal reaction. Reviewed treatment history and different options. Had done best the past after residential treatment m clean states she has done best with the alprazolam will change Ativan to alprazolam has had ECT in the past under similar circumstances. Ketamine not an inpatient option. Courage grounding and coping strategies. 04/04/2020 Try in reengage with patient unclear reason for next remit guardedness and withdrawal remains on one-to-one discharge plan courage increase behavioral activation 04/05/2021 Patient seen in psychiatric follow-up chart reviewed patient seen. Patient remains severely depressed withdrawn encourage behavioral activation use of CBT skills sertraline increased to 75 mg alprazolam changed to 0.5 in morning 1 mg at bedtime this seemed more effective than lorazepam 04/06 Remains dysphoric but safe in the facility. 04/07 as for yesterday. actively planning for discharge, focused on discharge. 04/08 - 04/09 placed on Q5 min checks 04/07, no self-harm in the past 24H. otherwise clinical presentation is stable. 04/10 some head-banging in shower 04/09 gi. 04/11 no SIB in past 24H. settled on tuesday for discharge date. feeling well. I spent minutes with the patient and/or on the patient floor today, greater than?50% of which was spent counseling/coordinating care. Reason for contiued inpatient stay Substantial Risk for: harm to self and rapid decompensation
[2021-04-11] MEDS: Prazosin HCL 1 MG CAPSULE 4 MG PO (21:38)
[2021-04-11] MEDS: traZODone HCL 100 MG TABLET 300 MG PO (21:38)
[2021-04-11] MEDS: Prazosin HCL 5 MG CAPSULE 10 MG PO (21:39)
[2021-04-11] MEDS: hydrOXYzine HCL 25 MG TABLET PO (21:39)
[2021-04-11] MEDS: Melatonin 3 MG TABLET 9 MG PO (21:39)
[2021-04-11 21:43] VITALS: BP 119/74; PULSE 73; TEMP 36.7; O2SAT 97
[2021-04-12 08:33] VITALS: BP 124/68; PULSE 93; RESP 16; TEMP 36.4; O2SAT 95
[2021-04-12] MEDS: Sodium Chloride 0.65 % Nasal 44 ML SPRBTL 1 SPRAY NOSTRIL-B ×2 (08:38→20:49)
[2021-04-12] MEDS: Fluticasone Propionate Nasal 16 GM SPRAY NOSTRIL-B (08:38)
[2021-04-12] MEDS: Cholecalciferol (Vitamin D3) 25 MCG TABLET 50 MCG PO (08:39)
[2021-04-12] MEDS: Lithium Carbonate ER 300 MG TABLET.ER 600 MG PO ×2 (08:39→20:53)
[2021-04-12] MEDS: ALPRAZolam 0.5 MG TABLET PO (08:39)
[2021-04-12] MEDS: OLANZapine 7.5 MG TABLET PO ×3 (08:39→20:52)
[2021-04-12] MEDS: Sertraline HCL 25 MG TABLET 75 MG PO (08:39)
[2021-04-12] MEDS: Amphetamine Mixed Salts 20 MG TABLET PO (08:39)
[2021-04-12] MEDS: Sennosides/Docusate Sodium TABLET 1 TAB PO ×2 (08:39→20:59)
[2021-04-12] MEDS: Thiamine HCL 100 MG TABLET PO (08:39)
[2021-04-12] MEDS: ALPRAZolam 0.5 MG TABLET 1 MG PO ×2 (16:23→20:54)
[2021-04-12] MEDS: Benztropine Mesylate 0.5 MG TABLET PO ×2 (16:23→20:53)
--- NOTE | 2021-04-12 18:06 | HO.PSYCHPN ---
Subjective Subjective Date of Service: 04/12/21 Reason For Visit: SI Interim History: pt found resting in bed. rousable. comes to sensory room with MD and female staff. pt acknowledges they are feeling well, at baseline, and confident about discharge. tuesday remains the target date. had a shower yesterday and did not self-harm. slept well. does c/o continued leg spasms and now some in her arms. interested in cogentin, which is prescribed. no other complaints or requests. Mental Status Exam Mental Status Exam Narrative: Appearance: resting in bed, adequately dressed and groomed Behavior:cooperative psychomotor: no agitation or retardation noted Speech:clear, normal rate/rhythm/volume, spontaneous Thought process:linear Thought content:no signs of psychosis Mood: baseline Affect: more flexible, normo-intense, non-labile SI: none expressed HI: none expressed VH/AH: none expressed Delusions: none expressed Diagnostics Vital Signs (24Hr): Vital Signs - 24 hr 04/11/21 21:43 04/12/21 08:33 Temperature 98.1 F 97.5 F Pulse Rate 73 93 Respiratory Rate 16 Blood Pressure 119/74 124/68 Pulse Oximetry 97 95 BMI result Body Mass Index 49.1 Labs Results: 03/14/21 15:38 03/14/21 15:37 Imaging Radiology Impressions: ITS Impressions Head CT 03/17/21 17:01 IMPRESSION: No CT evidence of intracranial bleed or hemorrhage. Chest X-Ray 03/25/21 19:03 IMPRESSION: Unremarkable examination. Medications Medications Current Medications Acetaminophen (Acetaminophen 325 Mg Tablet) 650 mg PO Q6H PRN PRN Reason: Headache/Pain Mild Scale (1-3) Last Admin: 04/10/21 12:39 Dose: 650 mg Documented by: Al Hydroxide/Mg Hydroxide (Magnesium Hydrox/Alum Hydrox 30 Ml Oral.Susp) 30 ml PO Q6H PRN PRN Reason: Heartburn/Nausea Last Admin: 04/11/21 11:03 Dose: 30 ml Documented by: Alprazolam (Alprazolam 0.5 Mg Tablet) 1 mg PO BID PRN PRN Reason: Anxiety Last Admin: 04/12/21 16:23 Dose: 1 mg Documented by: Alprazolam (Alprazolam 0.5 Mg Tablet) 0.5 mg PO DAILY [facility] Last Admin: 04/12/21 08:39 Dose: 0.5 mg Documented by: Alprazolam (Alprazolam 0.5 Mg Tablet) 1 mg PO BEDTIME [facility] Last Admin: 04/11/21 21:38 Dose: 1 mg Documented by: Amphetamine/Dextroamphetamine (Amphetamine Mixed Salts 20 Mg Tablet) 20 mg PO DAILY [facility] Last Admin: 04/12/21 08:39 Dose: 20 mg Documented by: Benztropine Mesylate (Benztropine Mesylate 0.5 Mg Tablet) 0.5 mg PO BID [facility] Last Admin: 04/12/21 16:23 Dose: 0.5 mg Documented by: Docusate Sodium (Docusate Sodium 100 Mg Capsule) 100 mg PO DAILY PRN PRN Reason: Constipation Last Admin: 03/28/21 08:20 Dose: 100 mg Documented by: Fluticasone Propionate (Fluticasone Propionate Nasal 16 Gm [place]) 1 - 2 spray NOSTRIL-B DAILY [facility] Last Admin: 04/12/21 08:38 Dose: 1 spray Documented by: Haloperidol Lactate (Haloperidol Lactate 5 Mg/Ml Vial) 5 mg IM Q4H PRN PRN Reason: risk of self-injurious behavio Last Admin: 04/09/21 19:48 Dose: 5 mg Documented by: Hydroxyzine HCl (Hydroxyzine Hcl 25 Mg Tablet) 25 mg PO Q4H PRN PRN Reason: Anxiety Hydroxyzine HCl (Hydroxyzine Hcl 25 Mg Tablet) 25 mg PO BEDTIME [facility] Last Admin: 04/11/21 21:39 Dose: 25 mg Documented by: Lactulose (Lactulose 20 Gm/30 Ml Solution) 30 gm PO BID PRN PRN Reason: Constipation Last Admin: 03/28/21 22:24 Dose: 30 gm Documented by: [place] Carbonate ([place] Carbonate Er 300 Mg Tablet.Er) 600 mg PO BID [facility] Last Admin: 04/12/21 08:39 Dose: 600 mg Documented by: Magnesium Hydroxide (Milk Of Magnesia 30 Ml Oral.Susp) 30 ml PO DAILY PRN PRN Reason: Constipation Last Admin: 04/09/21 08:33 Dose: 30 ml Documented by: Melatonin (Melatonin 3 Mg Tablet) 9 mg PO BEDTIME [facility] Last Admin: 04/11/21 21:39 Dose: 9 mg Documented by: Nicotine Polacrilex (Nicotine Polacrilex 2 Mg Gum) 2 mg BUCCAL Q1H PRN PRN Reason: Nicotine Cravings Last Admin: 04/04/21 20:10 Dose: 2 mg Documented by: Patient Own Medication ( Desvenlafaxine Er 100 Mg) 1 each PO DAILY [facility] Last Admin: 04/12/21 08:38 Dose: 1 each Documented by: Olanzapine (Olanzapine 7.5 Mg Tablet) 7.5 mg PO Q4H PRN PRN Reason: agitation, anxiety Last Admin: 04/12/21 16:23 Dose: 7.5 mg Documented by: Prazosin HCl (Prazosin Hcl 5 Mg Capsule) 10 mg PO BEDTIME [facility]; Protocol Last Admin: 04/11/21 21:39 Dose: 10 mg Documented by: Prazosin HCl (Prazosin Hcl 1 Mg Capsule) 4 mg PO BEDTIME [facility]; Protocol Last Admin: 04/11/21 21:38 Dose: 4 mg Documented by: Senna/Docusate Sodium (Sennosides/Docusate Sodium Tablet) 1 tab PO BID [facility] Last Admin: 04/12/21 08:39 Dose: 1 tab Documented by: Sertraline HCl (Sertraline Hcl 25 Mg Tablet) 75 mg PO DAILY [facility] Last Admin: 04/12/21 08:39 Dose: 75 mg Documented by: Sodium Chloride (Sodium Chloride 0.65 % Nasal 44 Ml Sprbtl) 1 spray NOSTRIL-B Q1H PRN PRN Reason: Nasal Congestion Last Admin: 04/12/21 08:38 Dose: 1 spray Documented by: Thiamine HCl (Thiamine Hcl 100 Mg Tablet) 100 mg PO DAILY [facility] Last Admin: 04/12/21 08:39 Dose: 100 mg Documented by: Trazodone HCl (Trazodone Hcl 100 Mg Tablet) 300 mg PO BEDTIME [facility] Last Admin: 04/11/21 21:38 Dose: 300 mg Documented by: Trazodone HCl (Trazodone Hcl 50 Mg Tablet) 50 mg PO BEDTIME PRN PRN Reason: Insomnia Last Admin: 04/04/21 04:39 Dose: 50 mg Documented by: Vitamin D (Cholecalciferol (Vitamin D3) 25 Mcg Tablet) 50 mcg PO DAILY [facility] Last Admin: 04/12/21 08:39 Dose: 50 mcg Documented by: Allergies Allergies Allergy/AdvReac Type Severity Reaction Status Date / Time Sulfa (Sulfonamide Allergy Unknown HIVES Verified 03/15/21 14:13 Antibiotics) [SULFA (SULFONAMIDE ANTIBIOTICS)] sulfamethoxazole Allergy Unknown HIVES Verified 03/15/21 14:13 [From BACTRIM] trimethoprim [From BACTRIM] Allergy Unknown HIVES Verified 03/15/21 14:13 Assessment & Plan Assessment & Plan (1) PTSD (post-traumatic stress disorder): Status: Acute Code(s): F43.10 - Post-traumatic stress disorder, unspecified (2) MDD (major depressive disorder), recurrent severe, without psychosis: Status: Acute Code(s): F33.2 - Major depressive disorder, recurrent severe without psychotic features Assessment and Plan: continue outpt meds. admitted to [facility] for safety and containment. 1:1 after head banging and reportedly wrapping sheets around neck in shower. 03/17 ativan dosing changed from 1 TID to 1 BID and 1 PRN daily, per pt request. med changes discussed at length 03/18, 03/19.? trying to obtain genetic testing report from medical records. zoloft 50 mg daily in addition to pristiq as of 03/20. thorazine 100 mg Q4H PRN added 03/23 for impulses to self-harm. D/C'd 03/31 due to pt reporting sedation but no benefit. Start zyprexa 5 mg Q6H PRN on 03/31 for anxious distress. 04/01: no med changes, monitor for benefit and continue 1:1 for safety 04/02: Increased zyprexa to 10 mg Q6H PRN for anxious agitation, distress, urges to self harm. Will decrease ativan to 1 mg QHS and 0.5 mg QAM per pt request, as they want to reduce polypharm. IMs of ativan and haldol added PRN imminent self-harm as of 03/24. PRNs of xanax 1 mg added 03/25 for not quite imminent self-harm. senna/colace scheduled as of 03/30. observe for stability, keep safe. investigate resi DBT programs for dispo options. 04/03/2021 Continue one-to-one patient ruminating staff and grief depressive is suicidal reaction. Reviewed treatment history and different options. Had done best the past after residential treatment m clean states she has done best with the alprazolam will change Ativan to alprazolam has had ECT in the past under similar circumstances. Ketamine not an inpatient option. Courage grounding and coping strategies. 04/04/2020 Try in reengage with patient unclear reason for next remit guardedness and withdrawal remains on one-to-one discharge plan courage increase behavioral activation 04/05/2021 Patient seen in psychiatric follow-up chart reviewed patient seen. Patient remains severely depressed withdrawn encourage behavioral activation use of CBT skills sertraline increased to 75 mg alprazolam changed to 0.5 in morning 1 mg at bedtime this seemed more effective than lorazepam 04/06 Remains dysphoric but safe in the facility. 04/07 as for yesterday. actively planning for discharge, focused on discharge. 04/08 - 04/09 placed on Q5 min checks 04/07, no self-harm in the past 24H. otherwise clinical presentation is stable. 04/10 some head-banging in shower 04/09 gi. 04/11 no SIB in past 24H. settled on tuesday for discharge date. feeling well. 04/12 no SIB in past 48H. tuesday discharge. feeling confident and at their baseline. cogentin 0.5 mg BID started for spastic jerks. I spent minutes with the patient and/or on the patient floor today, greater than?50% of which was spent counseling/coordinating care. Reason for contiued inpatient stay Substantial Risk for: harm to self, inability to function and rapid decompensation
[2021-04-12 20:44] VITALS: BP 127/80; PULSE 106; RESP 20; TEMP 36.7; O2SAT 98
[2021-04-12] MEDS: traZODone HCL 100 MG TABLET 300 MG PO (20:49)
[2021-04-12] MEDS: Prazosin HCL 1 MG CAPSULE 4 MG PO (20:50)
[2021-04-12] MEDS: Melatonin 3 MG TABLET 9 MG PO (20:52)
[2021-04-12] MEDS: hydrOXYzine HCL 25 MG TABLET PO (20:53)
[2021-04-12] MEDS: Prazosin HCL 5 MG CAPSULE 10 MG PO (20:59)
[2021-04-13] MEDS: Sertraline HCL 25 MG TABLET 75 MG PO (07:59)
[2021-04-13] MEDS: Sennosides/Docusate Sodium TABLET 1 TAB PO (07:59)
[2021-04-13 08:00] VITALS: BP 122/77; PULSE 82; RESP 17; TEMP 36.7; O2SAT 97
[2021-04-13] MEDS: Cholecalciferol (Vitamin D3) 25 MCG TABLET 50 MCG PO (08:00)
[2021-04-13] MEDS: Lithium Carbonate ER 300 MG TABLET.ER 600 MG PO (08:00)
[2021-04-13] MEDS: Amphetamine Mixed Salts 20 MG TABLET PO (08:00)
[2021-04-13] MEDS: ALPRAZolam 0.5 MG TABLET PO (08:00)
[2021-04-13] MEDS: Acetaminophen 325 MG TABLET 650 MG PO (08:00)
[2021-04-13] MEDS: Fluticasone Propionate Nasal 16 GM SPRAY NOSTRIL-B (08:01)
[2021-04-13] MEDS: Benztropine Mesylate 0.5 MG TABLET PO (08:01)
[2021-04-13] MEDS: Sodium Chloride 0.65 % Nasal 44 ML SPRBTL 1 SPRAY NOSTRIL-B (08:01)
[2021-04-13] MEDS: Thiamine HCL 100 MG TABLET PO (08:01)
[2021-04-13] MEDS: OLANZapine 7.5 MG TABLET PO (08:01)
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
== END 2021-04-13 15:39 | disposition home or self-care (01) | DRG 885 ==
LOC: HO.ED 03-15 01:10 → HO.PADLT16 03-16 12:51
PROVIDERS: Clinical Nurse Specialist Psychiatric/Mental Health; Physician Assistant; Registered Nurse; Admitting Provider Psychiatry & Neurology Psychiatry; Emergency Provider Emergency Medicine; Visit Provider Psychiatry & Neurology Psychiatry
DX: F33.2 Major depressive disorder, recurrent severe without psychotic features (principal); R45.851 Suicidal ideations; F43.10 Post-traumatic stress disorder, unspecified; Z20.822 Contact with and (suspected) exposure to COVID-19; F17.210 Nicotine dependence, cigarettes, uncomplicated; Z71.6 Tobacco abuse counseling; Z91.52 Personal history of nonsuicidal self-harm; Z88.2 Allergy status to sulfonamides; Z79.51 Long term (current) use of inhaled steroids; Z79.899 Other long term (current) drug therapy
CPT/HCPCS: 36415; 70450; 71046; 80048; 80076; 80178; 80307; 81025; 82077; 84484; 85025; 85379; 87635; 93005; 99285; J2060

== ENCOUNTER 2021-10-02 08:00 | Outpatient (RCR) | payer OTHER, SELFPAY ==
[2021-09-29 11:21] VITALS: BMI 48.4
--- NOTE | 2021-09-29 12:11 | PC.ADMIT ---
Patient is a 36 year old non-binary individual who uses they/them pronouns and goes by the name of Sandi. Patient was referred to [facility] by their [facility] day program d/t patient struggling with depression with SI and reports plan to, take a bunch of medications and go to the middle of a alejandro until they no longer can float. Patient stated they have no intent to act on this. Stated they have had this plan for a while however reported that their therapist is their protective factor. Patient also reported that they have VNA services who administer their medications. In addition, patient reports if things got bad they would take themselves to the ER. Patient has a long history of mental health treatment and seeking out help. They have been to [facility] in the past and they report they wanted to come to [facility] first as they stated they are trying to stay out of the hospital. Patient reports struggling with grief as this is the one year anniversary of the loss of a baby they were planning on co-parenting with a friend. Patient is alert and oriented x4. Presents with depressed mood, blunted affect. Medications reconciled with patient and patient's pharmacy. Patient reports taking medications as prescribed. Emailed patient a copy of their safety plan.
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
--- NOTE | 2021-09-30 14:33 | PC.NURSE ---
I called and spoke with pt. Reviewed treatment plan. Pt reports having a relatively good experience in PHP so far. They report ongoing SI with no intent and struggling to apply coping skills at times. They report willingness to get help by going to the ED if thoughts get unmanageable or if concerned for safety. They report having been referred for a CSP worker through [facility] several times and said they have never gotten a call from a CSP worker or N. I agreed to refer pt for a CSP worker from another agency.
--- NOTE | 2021-10-01 15:06 | PC.NURSE ---
Case opened in treatment team.
--- NOTE | 2021-10-06 11:47 | PC.NURSE ---
Addendum entered by Analy Donato 10/07/21 10:25: this note should say that pt emailed me on Tuesday, 10/05, not Tuesday. Original Note: Pt sent an email to me yesterday (Tuesday, 10/05) stating they are going o go to the ED because things are getting too hard to manage . Pt is currently in the ED while a bed search is being conducted for inpatient.
--- NOTE | 2021-10-06 14:05 | PC.NURSE ---
I called and LM for pt's therapist, Iesha Arguello [facility] ([phone]). I let her know that pt was hospitalized on M5.
== END 2021-10-02 23:59 | disposition admitted as inpatient to this hospital (09) ==
LOC: HO.PHPA 08:00
PROVIDERS: Visit Provider Psychiatry & Neurology Psychiatry
DX: F33.2 Major depressive disorder, recurrent severe without psychotic features (principal); F43.10 Post-traumatic stress disorder, unspecified; Z79.899 Other long term (current) drug therapy
CPT/HCPCS: 90791; 90853

== ENCOUNTER 2021-10-05 16:23 | Inpatient (IN) | payer OTHER, SELFPAY ==
--- NOTE | 2021-10-05 16:55 | ED.PSYCH ---
HPI - Psych General Chief Complaint: Psychiatric Symptoms Stated Complaint: SI Time Seen by Provider: 10/05/21 19:59 Source: patient Mode of arrival: ambulatory Limitations: no limitations History of Present Illness HPI Narrative: 36-year-old female presents for crisis evaluation. States this is an anniversary of a miscarriage. Patient presented to the emergency department with baby clothes and the doll. States that she is suicidal with multiple plans. She does report self injuries behaviors and indicates that she has multiple wounds on her chest that are self-inflicted. MD complaint: suicidal ideation, feels depressed and anxiety Onset (ago): month(s) Duration: constant History of same: Yes Relieving factors: none Context: significant life stressor Associated psychiatric symptoms: depression and suicidal ideation Associated symptoms: denies other symptoms Treatments prior to arrival: none If self harm: admits thoughts of self harm, has plan, has acted on plan and self-inflicted trauma Related Data Home Medications Medication Instructions Recorded Confirmed olanzapine 5 mg tablet 5 mg PO TID PRN Anxiety 09/29/21 10/05/21 trazodone 100 mg tablet 200 mg PO BEDTIME 09/29/21 10/05/21 benztropine 0.5 mg tablet 1 tab PO BID 10/05/21 10/05/21 Previous Rx's Medication Instructions Recorded alprazolam 1 mg tablet 1 mg PO QID PRN anxiety 15 days 04/13/21 #60 tabs cholecalciferol (vitamin D3) 25 50 mcg PO DAILY 15 days #30 tabs 04/13/21 mcg (1,000 unit) tablet desvenlafaxine 100 mg 100 mg PO DAILY 15 days #15 tabs 04/13/21 tablet,extended release 24 hr dextroamphetamine-amphetamine 20 20 mg PO DAILY 30 days #30 tabs 04/13/21 mg tablet fluticasone propionate 50 1 - 2 spray intranasal DAILY 30 04/13/21 mcg/actuation nasal days #1 inhaler spray,suspension lithium carbonate 300 mg 600 mg PO BID 15 days #60 tabs 04/13/21 tablet,extended release melatonin 3 mg tablet 9 mg PO BEDTIME 15 days #45 tabs 04/13/21 prazosin 5 mg capsule 14 mg PO BEDTIME 15 days #42 caps 04/13/21 thiamine mononitrate (vit B1) 100 100 mg PO DAILY 15 days #15 tabs 04/13/21 mg tablet Allergies Allergy/AdvReac Type Severity Reaction Status Date / Time Sulfa (Sulfonamide Allergy Unknown HIVES Verified 03/15/21 14:13 Antibiotics) [SULFA (SULFONAMIDE ANTIBIOTICS)] sulfamethoxazole Allergy Unknown HIVES Verified 03/15/21 14:13 [From BACTRIM] trimethoprim [From BACTRIM] Allergy Unknown HIVES Verified 03/15/21 14:13 oseltamivir [From Tamiflu] AdvReac Sensation Verified 09/29/21 11:20 of bugs crawling on skin. Review of Systems Review of Systems: Constitutional: No Fever, No Chills ENT/Mouth: No Ear Pain, No Nasal Congestion, No sore throat Eyes: No Eye Pain, No Swelling, No Redness Cardiovascular: No Chest Pain, No SOB Respiratory: No Cough, No Sputum, No Dyspnea Gastrointestinal: No Nausea, No Vomiting, No Diarrhea, No Hematochezia, No Melena Genitourinary: No Dysuria, No Urinary Frequency, No Hematuria Musculoskeletal: No Myalgias Skin: Positive superficial skin laceration, no rash Neuro: No Weakness, No Numbness, No Paresthesias, No Dizziness, No Headache Psych: positive Anxiety, positive Depression, positive SI Heme/Lymph: No Lymphadenopathy Endocrine: No Polyuria, No Polydipsia Yes all other systems are reviewed and are negative [facility] Past Medical History Attestation statement: The following information was validated with the patient. 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 landlord Do you presently have visiting nurse or other home services: Yes Alcohol intake: never Patient Tobacco Use Status: Current everyday Tobacco user Tobacco use type: Cigarette Cigarette Packs Per Day: 1 Cigarettes Per Day: 10 Years Smoked: Since teenager e-Cigarette/Vaping Use: Currently Using Second Hand Smoke Exposure: Yes Substance Use Type: Prescription Drugs Advance Directives: No Advance Directives Information Provided: No service: No Sexual orientation: did not discuss Physical Exam Vital Signs: Vital Signs: Last Vital Signs Temp 97.8 F 10/05/21 17:26 Pulse 74 10/05/21 21:52 Resp 20 10/05/21 21:52 BP 136/92 H 10/05/21 21:52 Pulse Ox 96 10/05/21 21:52 O2 Del Method 10/05/21 21:52 BMI result Body Mass Index 54.1 Appearance: Alert. Oriented X3. No acute distress. Eyes: Pupils equal, round and reactive to light. ENT: Pharynx normal. Neck: Normal inspection. Neck supple. CVS: Normal heart rate and rhythm. Pulses normal. Respiratory: No respiratory distress. Breath sounds normal. Abdomen: Soft and nontender. Skin: Multiple superficial lacerations to the sternum in various stages of healing, warm and dry. Normal skin color. Normal skin turgor. Extremities: No lower extremity edema. Gait well-balanced well coordinated. Neuro: No motor deficit. No sensory deficit. Cranial nerves 2-12 intact. Course Course Course Narrative: 36-year-old female presents for suicidal ideation with plan to either jump in front of a train, driving to [place] after overdosing on trazodone. Patient states that she can not cope with the 1 year anniversary of her still 1 . States she does not live anymore. Patient is alert oriented x4, flat affect, compliant with care at this time. She does have past admissions to this facility. Will order labs, update Tdap vaccine, and [facility]N consult. Section 12 signed for this patient 20:00 [facility]N consult complete. Plan of care is inpatient bed search. Physician observation started at this time. MDM - Psych Differential Diagnosis Differential diagnosis: Likely acute psychosis, suicidal ideation, bipolar disorder, depression, acute anxiety, post-traumatic stress disorder and mood disorder Medical Records Attestation: I reviewed the patient's medical records. Lab Data Attestation: I reviewed the patient's lab results. Result diagrams: 10/05/21 17:52 10/05/21 17:52 Labs: Lab Results 10/05/21 10/05/21 10/05/21 Range/Units 17:29 17:29 17:30 WBC (4.8-10.8) X10*3/uL RBC (4.20-5.50) X10*6/uL Hgb (12.0-16.0) g/dl Hct (37.0-47.0) % MCV (80.0-98.0) fL MCH (27.0-33.0) pg MCHC (31.0-35.0) g/dl RDW (11.0-16.0) % Plt Count (160-400) X10*3/uL MPV (9.4-12.3) fL Immature Gran % (Auto) (0.0-0.4) % Neut % (Auto) (45-73) % Lymph % (Auto) (20-40) % Dauphin % (Auto) (2-11) % Eos % (Auto) (0-4) % Baso % (Auto) (0-2) % Lymph # (Auto) (1.2-4.9) X10*3/uL Dauphin # (Auto) (0.1-1.2) X10*3/uL Eos # (Auto) (0.0-0.4) X10*3/uL Baso # (Auto) (0.0-0.2) X10*3/uL Abs Immat Gran (auto) (0.00-0.03) X10*3/uL Absolute Neuts (auto) (2.0-8.3) x10*3/uL Absolute Nucleated RBC (0.0-0.012) X10*3/uL Nucleated RBC % (auto) (0.0-0.2) /100WBC Sodium (135-145) mmol/L Potassium (3.3-5.1) mmol/L Chloride (96-108) mmol/L Carbon Dioxide (22-29) mmol/L Anion Gap (12-20) BUN (9-16) mg/dL Creatinine (0.5-1.4) mg/dL Estim Creat Clear Calc Estimated GFR Random Glucose (60-115) mg/dL Calcium (8.4-10.2) mg/dL Total Bilirubin (0.0-1.0) mg/dL Direct Bilirubin (0.0-0.5) mg/dL AST (5-31) U/L ALT (0-31) U/L Alkaline Phosphatase (39-117) U/L Total Protein (6.5-8.0) g/dL Albumin (3.5-5.0) g/dL Lipase (8-78) U/L Urine Color OTHER A Urine Appearance CLEAR Urine pH 6.5 (5.0-8.0) Ur Specific Friendship <= 1.005 (1.005-1.025) Urine Protein TRACE (NEG-TRACE) MG/DL Urine Glucose (UA) NEG (NEG) MG/DL Urine Ketones NEG (NEG) MG/DL Urine Blood 3+ H (NEG) Urine Nitrite NEG (NEG) Ur Leukocyte Esterase TRACE H (NEG) Urine RBC 50-75 H (0) /HPF Urine WBC 0-2 (0-4) /HPF Ur Squamous Epith Cells TRACE /LPF Urine Bacteria NONE /LPF Salicylates (15-30) mg/dL Urine Opiates Screen Not Detected (Not Detect) Urine Fentanyl Screen Not Detected (Not Detect) Acetaminophen (<30) mcg/mL Ur Barbiturates Screen Not Detected (Not Detect) Ur Phencyclidine Scrn Not Detected (Not Detect) Ur Amphetamines Screen Not Detected (Not Detect) U Benzodiazepines Scrn POSITIVE H (Not Detect) Chisana (0.60-1.20) mmol/L Urine Cocaine Screen Not Detected (Not Detect) U Marijuana (THC) Screen Not Detected (Not Detect) Ethyl Alcohol mg/dL COVID-19 ([facility]) Negative (Negative) COVID-19 Clin Com See Note 10/05/21 10/05/21 10/05/21 Range/Units 17:52 17:52 20:25 WBC 9.1 (4.8-10.8) X10*3/uL RBC 4.58 (4.20-5.50) X10*6/uL Hgb 12.9 (12.0-16.0) g/dl Hct 40.1 (37.0-47.0) % MCV 87.6 (80.0-98.0) fL MCH 28.2 (27.0-33.0) pg MCHC 32.2 (31.0-35.0) g/dl RDW 13.1 (11.0-16.0) % Plt Count 339 (160-400) X10*3/uL MPV 9.6 (9.4-12.3) fL Immature Gran % (Auto) 0.3 (0.0-0.4) % Neut % (Auto) 69.9 (45-73) % Lymph % (Auto) 24.1 (20-40) % Dauphin % (Auto) 4.9 (2-11) % Eos % (Auto) 0.8 (0-4) % Baso % (Auto) 0.0 (0-2) % Lymph # (Auto) 2.2 (1.2-4.9) X10*3/uL [place]hin # (Auto) 0.5 (0.1-1.2) X10*3/uL Eos # (Auto) 0.1 (0.0-0.4) X10*3/uL Baso # (Auto) 0.0 (0.0-0.2) X10*3/uL Abs Immat Gran (auto) 0.03 (0.00-0.03) X10*3/uL Absolute Neuts (auto) 6.4 (2.0-8.3) x10*3/uL Absolute Nucleated RBC 0.000 (0.0-0.012) X10*3/uL Nucleated RBC % (auto) 0.0 (0.0-0.2) /100WBC Sodium 138 (135-145) mmol/L Potassium 4.3 (3.3-5.1) mmol/L Chloride 109 H (96-108) mmol/L Carbon Dioxide 23 (22-29) mmol/L Anion Gap 10 L (12-20) BUN 8 L (9-16) mg/dL Creatinine 0.88 (0.5-1.4) mg/dL Estim Creat Clear Calc 135.7 Estimated GFR > 60 Random Glucose 95 (60-115) mg/dL Calcium 9.2 (8.4-10.2) mg/dL Total Bilirubin 0.3 (0.0-1.0) mg/dL Direct Bilirubin < 0.2 (0.0-0.5) mg/dL AST 20 D (5-31) U/L ALT 27 (0-31) U/L Alkaline Phosphatase 73 (39-117) U/L Total Protein 6.6 (6.5-8.0) g/dL Albumin 4.1 (3.5-5.0) g/dL Lipase 19 (8-78) U/L Urine Color Urine Appearance Urine pH (5.0-8.0) Ur Specific Friendship (1.005-1.025) Urine Protein (NEG-TRACE) MG/DL Urine Glucose (UA) (NEG) MG/DL Urine Ketones (NEG) MG/DL Urine Blood (NEG) Urine Nitrite (NEG) Ur Leukocyte Esterase (NEG) Urine RBC (0) /HPF Urine WBC (0-4) /HPF Ur Squamous Epith Cells /LPF Urine Bacteria /LPF Salicylates < 5.0 L (15-30) mg/dL Urine Opiates Screen (Not Detect) Urine Fentanyl Screen (Not Detect) Acetaminophen < 1 (<30) mcg/mL Ur Barbiturates Screen (Not Detect) Ur Phencyclidine Scrn (Not Detect) Ur Amphetamines Screen (Not Detect) U Benzodiazepines Scrn (Not Detect) Chisana 0.67 (0.60-1.20) mmol/L Urine Cocaine Screen (Not Detect) U Marijuana (THC) Screen (Not Detect) Ethyl Alcohol < 10 mg/dL COVID-19 ([facility]) (Negative) COVID-19 Clin Com Discharge Plan Discharge Clinical Impression: PTSD (post-traumatic stress disorder), Suicidal ideation, Depression Patient Disposition: Still a Patient Prescriptions: No Action prazosin 5 mg Capsule 14 mg PO BEDTIME 15 Days Qty: 42 1RF Protocol: Hold for SBP< HOLD for SBP < : 90 Rx Instructions: Take 2 tabs 2 mg dose and 2 tabs 5 mg dose for a total dose of 14 mg at bedtime. alprazolam 1 mg tablet 1 mg PO QID PRN (Reason: anxiety) 15 Days Qty: 60 1RF melatonin 3 mg Tablet 9 mg PO BEDTIME 15 Days Qty: 45 1RF lithium carbonate 300 mg tablet extended release 600 mg PO BID 15 Days Qty: 60 1RF dextroamphetamine-amphetamine 20 mg tablet 20 mg PO DAILY 30 Days Qty: 30 0RF Rx Instructions: Take after breakfast. fluticasone propionate 50 mcg/actuation spray,suspension 1 - 2 spray intranasal DAILY 30 Days Qty: 1 0RF Rx Instructions: Patient obtains OTC. cholecalciferol (vitamin D3) 25 mcg (1,000 unit) Tablet 50 mcg PO DAILY 15 Days Qty: 30 1RF thiamine mononitrate (vit B1) 100 mg Tablet 100 mg PO DAILY 15 Days Qty: 15 1RF desvenlafaxine 100 mg tablet extended release 24 hr 100 mg PO DAILY 15 Days Qty: 15 1RF trazodone 100 mg tablet 200 mg PO BEDTIME Label Comments: Patient stated she takes 200 mg at HS only. Pharmacy stated 250 mg. olanzapine 5 mg Tablet 5 mg PO TID PRN (Reason: Anxiety) benztropine 0.5 mg tablet 1 tab PO BID
[2021-10-05 17:26] VITALS: BP 178/100; PULSE 87; RESP 18; TEMP 36.6; O2SAT 98; BMI 54.1
[2021-10-05] MEDS: ALPRAZolam 0.5 MG TABLET 1 MG PO (17:47)
[2021-10-05] MEDS: Diphth,Pertus(ACell),Tet Adult 0.5 ML SYRINGE IM (17:48)
[2021-10-05 17:52] LABS: Appearance Urine CLEAR; Color Urine OTHER; Glucose Urine UA NEG (NEG); Leukocyte Esterase Urine TRACE (NEG); Nitrite Urine NEG (NEG); PH 6.5 (5.0-8.0); Specific Gravity - Urine <= 1.005 (1.005-1.025); UACC Culture Trigger NO; Urine Blood 3+ (NEG); Urine Ketones NEG (NEG); Urine Protein TRACE MG/DL (NEG-TRACE)
[2021-10-05 17:56] LABS: MANUAL DIFF FLAG NO
[2021-10-05 17:58] LABS: Eosinophils Absolute Auto 0.1 X10*3/uL (0.0-0.4); Eosinophils Percent Auto 0.8 % (0-4); Hematocrit 40.1 % (37.0-47.0); Hemoglobin 12.9 g/dl (12.0-16.0); Imm Gran Abs Auto 0.03 X10*3/uL (0.00-0.03); Imm Gran Pct Auto 0.3 % (0.0-0.4); Lymphocytes Absolute Auto 2.2 X10*3/uL (1.2-4.9); Lymphocytes Percent Auto 24.1 % (20-40); Mean Corpuscular HGB Conc 32.2 g/dl (31.0-35.0); Mean Corpuscular Hemoglobin 28.2 pg (27.0-33.0); Mean Corpuscular Volume 87.6 fL (80.0-98.0); Mean Platelet Volume 9.6 fL (9.4-12.3); Monocytes Absolute Auto 0.5 X10*3/uL (0.1-1.2); Monocytes Percent Auto 4.9 % (2-11); Neutrophils Absolute Auto 6.4 x10*3/uL (2.0-8.3); Neutrophils Percent Auto 69.9 % (45-73); Platelet Count 339 X10*3/uL (160-400); Red Blood Count 4.58 X10*6/uL (4.20-5.50); Red Cell Distribution Width 13.1 % (11.0-16.0); White Blood Count 9.1 X10*3/uL (4.8-10.8)
[2021-10-05 18:00] LABS: COVID-19 Test Negative (Negative); IDNOW Serial# 16C4AD1C
[2021-10-05 18:06] LABS: Squamous Epithelial Cell Urine TRACE /LPF
[2021-10-05 18:07] LABS: Amphetamine Screen Urine Not Detected (Not Detect); Barbiturates, Urine Not Detected (Not Detect); Benzodiazepines Screen Urine POSITIVE (Not Detect); Cannabinoid Screen Urine Not Detected (Not Detect); Cocaine Screen Urine Not Detected (Not Detect); Fentanyl, urine Not Detected (Not Detect); Opiate Screen Urine Not Detected (Not Detect); Phencyclidine Screen Urine Not Detected (Not Detect)
[2021-10-05 18:08] LABS: RBC Urine 50-75 /HPF (0); WBC Urine 0-2 /HPF (0-4)
[2021-10-05 18:21] LABS: Acetaminophen LAB < 1 mcg/mL (<30); Alanine Aminotransferase 27 U/L (0-31); Albumin Level 4.1 g/dL (3.5-5.0); Alkaline Phosphatase 73 U/L (39-117); Anion Gap 10 (12-20); Aspartate Amino Transferase 20 U/L (5-31); Bilirubin Direct < 0.2 mg/dL (0.0-0.5); Bilirubin Total 0.3 mg/dL (0.0-1.0); Blood Urea Nitrogen 8 mg/dL (9-16); Calcium 9.2 mg/dL (8.4-10.2); Carbon Dioxide 23 mmol/L (22-29); Chloride 109 mmol/L (96-108); Creatinine Clr Calc Pharmacy 135.7; Estimated Glomerular Filt Rate > 60; Ethanol < 10 mg/dL; Glucose Random 95 mg/dL (60-115); Lipase 19 U/L (8-78); Potassium 4.3 mmol/L (3.3-5.1); Salicylate < 5.0 mg/dL (15-30); Sodium 138 mmol/L (135-145); Total Protein 6.6 g/dL (6.5-8.0)
[2021-10-05 20:47] LABS: Lithium 0.67 mmol/L (0.60-1.20)
[2021-10-05] MEDS: Melatonin 3 MG TABLET 9 MG PO (21:49)
[2021-10-05] MEDS: traZODone HCL 100 MG TABLET 200 MG PO (21:49)
[2021-10-05] MEDS: Lithium Carbonate ER 300 MG TABLET.ER 600 MG PO (21:49)
[2021-10-05] MEDS: Benztropine Mesylate 0.5 MG TABLET PO (21:49)
[2021-10-05] MEDS: Prazosin HCL 1 MG CAPSULE 14 MG PO (21:50)
[2021-10-05 21:52] VITALS: BP 136/92; PULSE 74; RESP 20; O2SAT 96
--- NOTE | 2021-10-06 | ECG_ITS ---
Test Reason : MEDICAL CLEARANCE Blood Pressure : / mmHG Vent. Rate : 076 BPM Atrial Rate : 076 BPM P-R Int : 166 ms QRS Dur : 096 ms QT Int : 402 ms P-R-T Axes : 007 080 041 degrees QTc Int : 452 ms Normal sinus rhythm Normal ECG When compared with ECG of 25-MAR-2021 19:18, Premature ventricular complexes are no longer Present Referred By: Rosemary Staples Electronically Signed By:Suman Camejo
[2021-10-06 06:31] VITALS: BP 123/55; PULSE 87; RESP 18; TEMP 36; O2SAT 97
--- NOTE | 2021-10-06 07:08 | PC.NURSE ---
Patient slept through the night, no distress observed/reported, behavior appropriate, medication compliant, disposition per [facility] is section 12 inpatient bed search, VSS, will continue to monitor.
--- NOTE | 2021-10-06 07:23 | PC.NURSE ---
patient appears to remain asleep at present respirations are even and unlabroped patient chandler[ears in no distress
[2021-10-06 09:07] VITALS: BP 106/69; PULSE 76; RESP 16; TEMP 36.6; O2SAT 96
[2021-10-06] MEDS: Cholecalciferol (Vitamin D3) 25 MCG TABLET 50 MCG PO (09:26)
[2021-10-06] MEDS: ALPRAZolam 0.5 MG TABLET 1 MG PO ×3 (09:26→20:06)
[2021-10-06] MEDS: Lithium Carbonate ER 300 MG TABLET.ER 600 MG PO ×2 (09:26→20:07)
[2021-10-06] MEDS: Benztropine Mesylate 0.5 MG TABLET PO ×2 (09:26→20:06)
[2021-10-06] MEDS: OLANZapine 5 MG TABLET PO ×3 (09:26→20:07)
[2021-10-06] MEDS: Amphetamine Mixed Salts 20 MG TABLET PO (09:26)
[2021-10-06] MEDS: Thiamine HCL 100 MG TABLET PO (09:27)
[2021-10-06] MEDS: traZODone HCL 100 MG TABLET 200 MG PO (20:06)
[2021-10-06] MEDS: hydrOXYzine HCL 25 MG TABLET PO (20:07)
[2021-10-06] MEDS: Melatonin 3 MG TABLET 9 MG PO (20:07)
[2021-10-06] MEDS: PRAZOSIN HCL 14 MG PO (21:06)
[2021-10-06 21:10] VITALS: BP 124/68; PULSE 74; TEMP 36.2; O2SAT 96
--- NOTE | 2021-10-06 23:31 | PC.ADMIT ---
Patient is a 36 year old single Spanish speaking female admitted to as a CV admission at 1645 and placed on 5 minute safety checks. Patient was not feeling very safe on the unit and was good with having tighter checks than 15 minutes. Patient was medically cleared in the [facility], evaluated by [facility] and deemed in need of IPLOC secondary to increased depression and SI, with a plan to overdose on their Trazadone and walk into water to sleep. Patient also is grieving a stillborn delivered by her ex partner in September of 2020. Apparently the ex partner attends a grief support group but does not want the patient to attend the same group. Patient said they have tried to receive some community care support since January of last year but nothing has transpired. Patient feels hopeless and helpless but was cooperative with the admission process. Patient has passive SI no HI and denies any VH but did mention I hear a baby cry sometimes . Patient has a long history of I[facility]OC stays since the age of 14 [facility] and . They have no acute medical problems at this time. Patient prefers they/them pronouns but stated I don't freak out if someone doesn't remember . Patient signed legals, answered admission questions and then went to bed. She is aware that the life like baby doll needs to stay in her room. Patient took her beds and went to sleep.
[2021-10-07 06:00] VITALS: BP 102/57; PULSE 75; TEMP 36.2; O2SAT 95
--- NOTE | 2021-10-07 07:29 | PHA.MEDREC ---
Pharmacy Consult ? Medication Reconciliation RN has completed the medication reconciliation, Pharmacy reviewed.
[2021-10-07 09:21] LABS: Estimated Average Glucose 88 mg/dL; Hemoglobin A1c % 4.7 %
[2021-10-07] MEDS: Lithium Carbonate ER 300 MG TABLET.ER 600 MG PO ×2 (09:26→20:21)
[2021-10-07] MEDS: Thiamine HCL 100 MG TABLET PO (09:26)
[2021-10-07] MEDS: Benztropine Mesylate 0.5 MG TABLET PO ×2 (09:26→20:21)
[2021-10-07] MEDS: Amphetamine Mixed Salts 20 MG TABLET PO (09:26)
[2021-10-07] MEDS: Cholecalciferol (Vitamin D3) 25 MCG TABLET 50 MCG PO (09:26)
[2021-10-07] MEDS: Nicotine 14 MG PATCH.TD24 TRANSDERMA (09:27)
[2021-10-07 10:13] LABS: Cholesterol 146 mg/dL; HDL Cholesterol 31 mg/dL; LDL Cholesterol Calculated 82 mg/dl; Magnesium 1.9 mg/dL (1.6-2.6); Triglycerides 169 mg/dL
[2021-10-07] MEDS: ALPRAZolam 0.5 MG TABLET 1 MG PO ×2 (10:18→20:22)
[2021-10-07] MEDS: OLANZapine 5 MG TABLET PO (10:18)
[2021-10-07] MEDS: Fluticasone Propionate Nasal 16 GM SPRAY NOSTRIL-B (10:18)
[2021-10-07 10:33] LABS: Free T4 (Free Thyroxine) 0.74 ng/dL (0.71-1.85); Thyroid Stimulating Hormone 1.32 uIU/mL (0.32-4.0)
[2021-10-07 11:10] LABS: Folate 8.6 ng/mL (> or = 4.0); Vitamin B12 166 pg/mL (200-900)
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
[2021-10-07 18:00] VITALS: BP 142/78; PULSE 79; RESP 16; TEMP 36.6; O2SAT 99
[2021-10-07] MEDS: traZODone HCL 100 MG TABLET 200 MG PO (20:21)
[2021-10-07] MEDS: OLANZapine 7.5 MG TABLET PO (20:22)
[2021-10-07] MEDS: Melatonin 3 MG TABLET 9 MG PO (20:22)
[2021-10-07] MEDS: PRAZOSIN HCL 14 MG PO (20:22)
[2021-10-08 06:00] VITALS: BP 123/67; PULSE 82; TEMP 36.7; O2SAT 96
[2021-10-08] MEDS: Nicotine 14 MG PATCH.TD24 TRANSDERMA (08:44)
[2021-10-08] MEDS: Thiamine HCL 100 MG TABLET PO (08:44)
[2021-10-08] MEDS: Cholecalciferol (Vitamin D3) 25 MCG TABLET 50 MCG PO (08:44)
[2021-10-08] MEDS: Lithium Carbonate ER 300 MG TABLET.ER 600 MG PO ×2 (08:45→19:34)
[2021-10-08] MEDS: Amphetamine Mixed Salts 20 MG TABLET PO (08:45)
[2021-10-08] MEDS: Benztropine Mesylate 0.5 MG TABLET PO ×2 (08:45→19:32)
[2021-10-08] MEDS: ALPRAZolam 0.5 MG TABLET 1 MG PO ×3 (09:22→19:42)
[2021-10-08] MEDS: OLANZapine 7.5 MG TABLET PO ×3 (09:26→19:42)
[2021-10-08] MEDS: Milk of Magnesia 30 ML ORAL.SUSP PO (09:27)
[2021-10-08] MEDS: Fluticasone Propionate Nasal 16 GM SPRAY NOSTRIL-B (09:57)
[2021-10-08] MEDS: Dry Mouth Spray 60 ML SPRAY 1 SPRAY MUCOUS MEM (09:57)
--- NOTE | 2021-10-08 15:11 | P.PNPSI_ITS ---
Subjective Subjective Date of Service: 10/08/21 Reason For Visit: Major depression, recurrent severe; PTSD Subjective Notes: Conditional Voluntary Healthcare Proxy: No Guardianship: No Medical Problems Affecting Mental Status: No Interim History: One to one continues. Reports she had planned to make a noose in the shower, however, someone was in with her doing the one to one. Intense suicidality. Asks for prn's of Haldol, Ativan. Will request these as IM as she reports the injection is more helpful. Examined cuts on her abdomen-warm, raised, reddened. Will trial bactine for relief and healing. Reports constipation-Mag Citrate ordered x1. Medication Compliance: Yes Side effects from medications: No Attending Groups: Yes Review of Systems Acute medical concerns: No Medical Review of Systems: unchanged Review of Systems Reports behavioral changes Psychiatric: Reports anxiety, Reports behavioral changes, Reports depression, Reports difficulty concentrating, Reports hopelessness, Reports anhedonia and Reports suicidal ideation Mental Status Exam Mental Status Exam Narrative: Well-developed, overweight female, in NAD. No perceptual disturbances noted. No involuntary movements, no tics or tremors noted. Ambulation not observed. Patient Appearance: Appropriate Patient Orientation: Person, Place, Time and Situation Level of Consciousness: Appropriate Patient Behavior: Appropriate, Cooperative and Good Eye Contact Mood Description: Depressed and Anxious Affect Description: Depressed and Flat Patient Cognition Impaired: No Ability to Follow Directions: Good Speech Pattern: Clear, Monotone and Coherent Memory Description: Intact Hallucinations: None Delusions: Not Present Perceptual Disturbances: Depersonalization Thought Process: Intact and Rumination Thought Content: positive for Intact and positive for Suicidal Ideation (passive, no intent/plan) Depressive Symptoms: Increased Anxiety, Difficulty Sleeping, Crying Spells, Sleeping More Than Usual, Loss of Int. in Activity, Hopelessness, Feelings of Guilt, Unhappiness, Increased Fatigue, Thoughts of /Suicide and Loss of Energy Judgement: Fair Diagnostics Vital Signs (24Hr): Vital Signs - 24 hr 10/07/21 18:00 10/08/21 06:00 Temperature 97.8 F 98.1 F Pulse Rate 79 82 Respiratory Rate 16 Blood Pressure 142/78 H 123/67 Pulse Oximetry 99 96 Oxygen Delivery Method Room Air Room Air BMI result Body Mass Index 54.1 Labs Results: 10/05/21 17:52 10/05/21 17:52 Labs: Laboratory Results - last 48 hr 10/07/21 10/07/21 10/07/21 08:28 08:28 08:28 Estimat Average Glucose 88 Hemoglobin A1c % 4.7 Magnesium 1.9 Triglycerides 169 Cholesterol 146 LDL Cholesterol, Calc 82 HDL Cholesterol 31 Vitamin B12 166 L Folate 8.6 TSH 1.32 Free T4 0.74 Medications Medications Current Medications Acetaminophen (Acetaminophen 325 Mg Tablet) 650 mg PO Q6H PRN PRN Reason: Headache/Pain Mild Scale (1-3) Al Hydroxide/Mg Hydroxide (Magnesium Hydrox/Alum Hydrox 30 Ml Oral.Susp) 30 ml PO Q6H PRN PRN Reason: Heartburn/Nausea Alprazolam (Alprazolam 0.5 Mg Tablet) 1 mg PO QID PRN PRN Reason: anxiety Last Admin: 10/08/21 14:34 Dose: 1 mg Amphetamine/Dextroamphetamine (Amphetamine Mixed Salts 20 Mg Tablet) 20 mg PO DAILY [facility] Last Admin: 10/08/21 08:45 Dose: 20 mg Benztropine Mesylate (Benztropine Mesylate 0.5 Mg Tablet) 0.5 mg PO BID [facility] Last Admin: 10/08/21 08:45 Dose: 0.5 mg Fluticasone Propionate (Fluticasone Propionate Nasal 16 Gm [place]) 1 - 2 spray NOSTRIL-B DAILY [facility] Last Admin: 10/08/21 09:57 Dose: 1 spray Hydroxyzine HCl (Hydroxyzine Hcl 25 Mg Tablet) 25 mg PO Q6H PRN PRN Reason: Anxiety Last Admin: 10/06/21 20:07 Dose: 25 mg [place] Carbonate ([place] Carbonate Er 300 Mg Tablet.Er) 600 mg PO BID [facility] Last Admin: 10/08/21 08:45 Dose: 600 mg Magnesium Hydroxide (Milk Of Magnesia 30 Ml Oral.Susp) 30 ml PO DAILY PRN PRN Reason: Constipation Last Admin: 10/08/21 09:27 Dose: 30 ml Melatonin (Melatonin 3 Mg Tablet) 9 mg PO BEDTIME [facility] Last Admin: 10/07/21 20:22 Dose: 9 mg Nicotine (Nicotine 14 Mg Patch.Td24) 14 mg TRANSDERMA DAILY [facility] Last Admin: 10/08/21 08:44 Dose: 14 mg Nicotine Polacrilex (Nicotine Polacrilex 2 Mg Gum) 2 mg BUCCAL Q2H PRN PRN Reason: nicotine withdrawal Pt Own Med ( Desvenlafaxine 100 Mg Tablet Extended Release 24 Hr) 100 mg PO DAILY [facility] Last Admin: 10/08/21 09:21 Dose: 100 mg Olanzapine (Olanzapine 7.5 Mg Tablet) 7.5 mg PO TID PRN PRN Reason: Anxiety Last Admin: 10/08/21 14:34 Dose: 7.5 mg Prazosin HCl 10 mg/ Prazosin (HCl 4 mg) 14 mg PO BEDTIME [facility] Last Admin: 10/07/21 20:22 Dose: 14 mg Saliva Substitute (Dry Mouth [place] 60 Ml [place]) 1 spray MUCOUS MEM Q2H PRN PRN Reason: Dry Mouth Last Admin: 10/08/21 09:57 Dose: 1 spray Thiamine HCl (Thiamine Hcl 100 Mg Tablet) 100 mg PO DAILY [facility] Last Admin: 10/08/21 08:44 Dose: 100 mg Trazodone HCl (Trazodone Hcl 100 Mg Tablet) 200 mg PO BEDTIME [facility] Last Admin: 10/07/21 20:21 Dose: 200 mg Vitamin D (Cholecalciferol (Vitamin D3) 25 Mcg Tablet) 50 mcg PO DAILY [facility] Last Admin: 10/08/21 08:44 Dose: 50 mcg Allergies Allergies Allergy/AdvReac Type Severity Reaction Status Date / Time Sulfa (Sulfonamide Allergy Unknown HIVES Verified 03/15/21 14:13 Antibiotics) [SULFA (SULFONAMIDE ANTIBIOTICS)] sulfamethoxazole Allergy Unknown HIVES Verified 03/15/21 14:13 [From BACTRIM] trimethoprim [From BACTRIM] Allergy Unknown HIVES Verified 03/15/21 14:13 oseltamivir [From Tamiflu] AdvReac Sensation Verified 09/29/21 11:20 of bugs crawling on skin. Assessment & Plan Assessment & Plan (1) Suicidal ideation: Status: Acute Code(s): R45.851 - Suicidal ideations (2) PTSD (post-traumatic stress disorder): Status: Acute Code(s): F43.10 - Post-traumatic stress disorder, unspecified (3) MDD (major depressive disorder), recurrent severe, without psychosis: Status: Acute Code(s): F33.2 - Major depressive disorder, recurrent severe without psychotic features Plan 36 yo non-binary individual, prefers they them pronouns, presents with active SI, SIBS, several plans to self-harm in the context of the anniversary of the loss of a child she planned to co-parent who was still born. Pt able to surrend er a rope she made in the ER from clothing and agrees to one to one specialing to assist with management of her safety needs until she is able to manage with more independence. Pt reports an increase in sleep, decrease in functioning, unable to attend treatment activities, and constant thoughts of and dying- several plans for suicide including to head bang so severely she will fall asleep and never awaken. Plan B12 supplement as levels are low TSH, FT4 One to One Special Increase Olanzpaine to 7.5 mg prn-pt plans to take this bid Full milieu involvement to process this anniversary of her loss 10/08/21: Haldol/Ativan prn Magnesium Citrate x 1 for constipation Continue one to one. I spent minutes with the patient and/or on the patient floor today, greater than?50% of which was spent counseling/coordinating care. Patient educated on: therapeutic strategies Informed Consent: understands Reason for contiued inpatient stay Substantial Risk for: harm to self, inability to function and rapid decompensation
[2021-10-08] MEDS: Magnesium Citrate 300 ML SOLUTION PO (16:05)
[2021-10-08 18:00] VITALS: BP 141/91; PULSE 96; RESP 16; TEMP 36.5; O2SAT 96
[2021-10-08] MEDS: traZODone HCL 100 MG TABLET 200 MG PO (19:32)
[2021-10-08] MEDS: Melatonin 3 MG TABLET 9 MG PO (19:33)
[2021-10-08] MEDS: PRAZOSIN HCL 14 MG PO (19:33)
[2021-10-09 06:00] VITALS: BP 126/69; PULSE 76; RESP 16; TEMP 36.5; O2SAT 96
[2021-10-09] MEDS: Benztropine Mesylate 0.5 MG TABLET PO ×2 (09:30→20:14)
[2021-10-09] MEDS: Lithium Carbonate ER 300 MG TABLET.ER 600 MG PO ×2 (09:30→20:14)
[2021-10-09] MEDS: Fluticasone Propionate Nasal 16 GM SPRAY NOSTRIL-B (09:30)
[2021-10-09] MEDS: Cholecalciferol (Vitamin D3) 25 MCG TABLET 50 MCG PO (09:30)
[2021-10-09] MEDS: Amphetamine Mixed Salts 20 MG TABLET PO (09:30)
[2021-10-09] MEDS: Thiamine HCL 100 MG TABLET PO (09:30)
[2021-10-09] MEDS: Nicotine 14 MG PATCH.TD24 TRANSDERMA (09:31)
[2021-10-09] MEDS: ALPRAZolam 0.5 MG TABLET 1 MG PO ×2 (09:43→21:59)
[2021-10-09] MEDS: OLANZapine 7.5 MG TABLET PO ×3 (09:43→21:59)
[2021-10-09] MEDS: Dry Mouth Spray 60 ML SPRAY 1 SPRAY MUCOUS MEM ×2 (12:42→15:28)
--- NOTE | 2021-10-09 15:29 | HO.PSYCHPN ---
Subjective Subjective Date of Service: 10/09/21 Reason For Visit: Major depression, recurrent severe; PTSD Subjective Notes: Conditional Voluntary Healthcare Proxy: No Guardianship: No Medical Problems Affecting Mental Status: No Interim History: Continues on one to one. Reports a significant improvement in sleep last night-almost 12 hours. Suicidality remains present, less intense than on 10/08, but still active, with plan. Attempting to ground herself by doing grace art projects which she finds to be helpful. Discussed care for her abdominal cuts-she agrees. Discussed prn Haldol/Ativan being ordered PO. She will ask for IM if she needs to use these agents. Medication Compliance: Yes Side effects from medications: No Attending Groups: Yes Review of Systems Acute medical concerns: No Medical Review of Systems: unchanged Review of Systems Reports behavioral changes Psychiatric: Reports behavioral changes, Reports depression, Reports difficulty concentrating, Reports hopelessness, Reports anhedonia and Reports suicidal ideation Mental Status Exam Mental Status Exam Narrative: Well-developed, overweight female, in NAD. No perceptual disturbances noted. No involuntary movements, no tics or tremors noted. Ambulation not observed. Patient Appearance: Appropriate Patient Orientation: Person, Place, Time and Situation Level of Consciousness: Appropriate Patient Behavior: Appropriate, Cooperative and Good Eye Contact Mood Description: Depressed and Anxious Affect Description: Depressed and Flat Patient Cognition Impaired: No Ability to Follow Directions: Good Speech Pattern: Clear, Monotone and Coherent Memory Description: Intact Hallucinations: None Delusions: Not Present Perceptual Disturbances: Depersonalization Thought Process: Intact and Rumination Thought Content: positive for Intact and positive for Suicidal Ideation Depressive Symptoms: Increased Anxiety, Difficulty Sleeping, Crying Spells, Sleeping More Than Usual, Loss of Int. in Activity, Hopelessness, Feelings of Guilt, Unhappiness, Increased Fatigue, Thoughts of /Suicide and Loss of Energy Judgement: Fair Diagnostics Vital Signs (24Hr): Vital Signs - 24 hr 10/08/21 18:00 10/09/21 06:00 Temperature 97.7 F 97.7 F Pulse Rate 96 76 Respiratory Rate 16 16 Blood Pressure 141/91 H 126/69 Pulse Oximetry 96 96 Oxygen Delivery Method Room Air BMI result Body Mass Index 54.1 Labs Results: 10/05/21 17:52 10/05/21 17:52 Medications Medications Current Medications Acetaminophen (Acetaminophen 325 Mg Tablet) 650 mg PO Q6H PRN PRN Reason: Headache/Pain Mild Scale (1-3) Al Hydroxide/Mg Hydroxide (Magnesium Hydrox/Alum Hydrox 30 Ml Oral.Susp) 30 ml PO Q6H PRN PRN Reason: Heartburn/Nausea Alprazolam (Alprazolam 0.5 Mg Tablet) 1 mg PO QID PRN PRN Reason: anxiety Last Admin: 10/09/21 09:43 Dose: 1 mg Amphetamine/Dextroamphetamine (Amphetamine Mixed Salts 20 Mg Tablet) 20 mg PO DAILY [facility] Last Admin: 10/09/21 09:30 Dose: 20 mg Benztropine Mesylate (Benztropine Mesylate 0.5 Mg Tablet) 0.5 mg PO BID [facility] Last Admin: 10/09/21 09:30 Dose: 0.5 mg Fluticasone Propionate (Fluticasone Propionate Nasal 16 Gm [place]) 1 - 2 spray NOSTRIL-B DAILY [facility] Last Admin: 10/09/21 09:30 Dose: 1 spray Haloperidol (Haloperidol 5 Mg Tablet) 5 mg PO Q4H PRN PRN Reason: si, agitation Hydroxyzine HCl (Hydroxyzine Hcl 25 Mg Tablet) 25 mg PO Q6H PRN PRN Reason: Anxiety Last Admin: 10/06/21 20:07 Dose: 25 mg [place] Carbonate ([place] Carbonate Er 300 Mg Tablet.Er) 600 mg PO BID [facility] Last Admin: 10/09/21 09:30 Dose: 600 mg Lorazepam (Lorazepam 1 Mg Tablet) 1 mg PO Q4H PRN PRN Reason: si, agitation Magnesium Hydroxide (Milk Of Magnesia 30 Ml Oral.Susp) 30 ml PO DAILY PRN PRN Reason: Constipation Last Admin: 10/08/21 09:27 Dose: 30 ml Melatonin (Melatonin 3 Mg Tablet) 9 mg PO BEDTIME [facility] Last Admin: 10/08/21 19:33 Dose: 9 mg Nicotine (Nicotine 14 Mg Patch.Td24) 14 mg TRANSDERMA DAILY [facility] Last Admin: 10/09/21 09:31 Dose: 14 mg Nicotine Polacrilex (Nicotine Polacrilex 2 Mg Gum) 2 mg BUCCAL Q2H PRN PRN Reason: nicotine withdrawal Pt Own Med ( Desvenlafaxine 100 Mg Tablet Extended Release 24 Hr) 100 mg PO DAILY [facility] Last Admin: 10/09/21 09:30 Dose: 100 mg Patient Own Medication (Bactine Max Cleansing [place] ) 2 sprays TOPICAL BID [facility] Patient Own Medication (Bactine Hydrogel ) 1 applic TOPICAL BID [facility] Olanzapine (Olanzapine 7.5 Mg Tablet) 7.5 mg PO TID PRN PRN Reason: Anxiety Last Admin: 10/09/21 09:43 Dose: 7.5 mg Prazosin HCl 10 mg/ Prazosin (HCl 4 mg) 14 mg PO BEDTIME [facility] Last Admin: 10/08/21 19:33 Dose: 14 mg Saliva Substitute (Dry Mouth [place] 60 Ml [place]) 1 spray MUCOUS MEM Q2H PRN PRN Reason: Dry Mouth Last Admin: 10/09/21 15:28 Dose: 1 spray Thiamine HCl (Thiamine Hcl 100 Mg Tablet) 100 mg PO DAILY [facility] [place] Last Admin: 10/09/21 09:30 Dose: 100 mg Trazodone HCl (Trazodone Hcl 100 Mg Tablet) 200 mg PO BEDTIME [facility] Last Admin: 10/08/21 19:32 Dose: 200 mg Vitamin D (Cholecalciferol (Vitamin D3) 25 Mcg Tablet) 50 mcg PO DAILY [facility] [place] Last Admin: 10/09/21 09:30 Dose: 50 mcg Allergies Allergies Allergy/AdvReac Type Severity Reaction Status Date / Time Sulfa (Sulfonamide Allergy Unknown HIVES Verified 03/15/21 14:13 Antibiotics) [SULFA (SULFONAMIDE ANTIBIOTICS)] sulfamethoxazole Allergy Unknown HIVES Verified 03/15/21 14:13 [From BACTRIM] trimethoprim [From BACTRIM] Allergy Unknown HIVES Verified 03/15/21 14:13 oseltamivir [From Tamiflu] AdvReac Sensation Verified 09/29/21 11:20 of bugs crawling on skin. Assessment & Plan Assessment & Plan (1) Suicidal ideation: Status: Acute Code(s): R45.851 - Suicidal ideations (2) PTSD (post-traumatic stress disorder): Status: Acute Code(s): F43.10 - Post-traumatic stress disorder, unspecified (3) MDD (major depressive disorder), recurrent severe, without psychosis: Status: Acute Code(s): F33.2 - Major depressive disorder, recurrent severe without psychotic features Plan 36 yo non-binary individual, prefers they them pronouns, presents with active SI, SIBS, several plans to self-harm in the context of the anniversary of the loss of a child she planned to co-parent who was still born. Pt able to surrender a rope she made in the ER from clothing and agrees to one to one specialing to assist with management of her safety needs until she is able to manage with more independence. Pt reports an increase in sleep, decrease in functioning, unable to attend treatment activities, and constant thoughts of and dying-several plans for suicide including to head bang so severely she will fall asleep and never awaken. Plan B12 supplement as levels are low TSH, FT4 One to One Special Increase Olanzpaine to 7.5 mg prn-pt plans to take this bid Full milieu involvement to process this anniversary of her loss 10/09/21 Continue current regime. I spent minutes with the patient and/or on the patient floor today, greater than?50% of which was spent counseling/coordinating care. Patient educated on: therapeutic strategies Informed Consent: understands and further education needed Reason for contiued inpatient stay Substantial Risk for: harm to self and rapid decompensation
[2021-10-09 18:00] VITALS: BP 119/82; PULSE 75; RESP 16; TEMP 36.6; O2SAT 97
[2021-10-09] MEDS: Melatonin 3 MG TABLET 9 MG PO (20:14)
[2021-10-09] MEDS: traZODone HCL 100 MG TABLET 200 MG PO (20:14)
[2021-10-09] MEDS: PRAZOSIN HCL 14 MG PO (20:14)
[2021-10-10 06:00] VITALS: BP 121/76; PULSE 78; RESP 16; TEMP 36.6; O2SAT 96
[2021-10-10] MEDS: Thiamine HCL 100 MG TABLET PO (09:11)
[2021-10-10] MEDS: Benztropine Mesylate 0.5 MG TABLET PO ×2 (09:11→20:33)
[2021-10-10] MEDS: Lithium Carbonate ER 300 MG TABLET.ER 600 MG PO ×2 (09:11→20:34)
[2021-10-10] MEDS: Cholecalciferol (Vitamin D3) 25 MCG TABLET 50 MCG PO (09:11)
[2021-10-10] MEDS: Amphetamine Mixed Salts 20 MG TABLET PO (09:11)
[2021-10-10] MEDS: Nicotine 14 MG PATCH.TD24 TRANSDERMA (09:12)
--- NOTE | 2021-10-10 09:35 | P.PNPSI_ITS ---
Subjective Subjective Date of Service: 10/10/21 Reason For Visit: Major depression, recurrent severe; PTSD Interim History: pt says i'm pretty much the same as yesterday... still feels unsafe. journalists and other writers asks if there are some things that can be implemented to help pt edge back toward feeling safe; pt Says it will just take time... but is willing to think through and see there are other things that will help. Mental Status Exam Mental Status Exam Narrative: Well-developed, overweight female, in NAD. No perceptual disturbances noted. No involuntary movements, no tics or tremors noted. Ambulation not observed. Patient Appearance: Appropriate Patient Orientation: Person, Place, Time and Situation Level of Consciousness: Appropriate Patient Behavior: Appropriate, Cooperative and Good Eye Contact Mood Description: Depressed and Anxious Affect Description: Depressed and Flat Patient Cognition Impaired: No Ability to Follow Directions: Fair Speech Pattern: Clear, Monotone and Coherent Memory Description: Intact Hallucinations: None Delusions: Not Present Perceptual Disturbances: Depersonalization Thought Process: Intact and Rumination Thought Content: positive for Suicidal Ideation Depressive Symptoms: Increased Anxiety, Difficulty Sleeping, Crying Spells, Sleeping More Than Usual, Loss of Int. in Activity, Hopelessness, Feelings of Guilt, Unhappiness, Increased Fatigue, Thoughts of /Suicide and Loss of Energy Judgement: Fair Diagnostics Vital Signs (24Hr): Vital Signs - 24 hr 10/09/21 18:00 10/10/21 06:00 Temperature 98 F 97.9 F Pulse Rate 75 78 Respiratory Rate 16 16 Blood Pressure 119/82 121/76 Pulse Oximetry 97 96 Oxygen Delivery Method Room Air BMI result Body Mass Index 54.1 Labs Results: 10/05/21 17:52 10/05/21 17:52 Medications Medications Current Medications Acetaminophen (Acetaminophen 325 Mg Tablet) 650 mg PO Q6H PRN PRN Reason: Headache/Pain Mild Scale (1-3) Al Hydroxide/Mg Hydroxide (Magnesium Hydrox/Alum Hydrox 30 Ml Oral.Susp) 30 ml PO Q6H PRN PRN Reason: Heartburn/Nausea Alprazolam (Alprazolam 0.5 Mg Tablet) 1 mg PO QID PRN PRN Reason: anxiety Last Admin: 10/09/21 21:59 Dose: 1 mg Amphetamine/Dextroamphetamine (Amphetamine Mixed Salts 20 Mg Tablet) 20 mg PO DAILY [facility] Last Admin: 10/10/21 09:11 Dose: 20 mg Benztropine Mesylate (Benztropine Mesylate 0.5 Mg Tablet) 0.5 mg PO BID [facility] Last Admin: 10/10/21 09:11 Dose: 0.5 mg Fluticasone Propionate (Fluticasone Propionate Nasal 16 Gm [place]) 1 - 2 spray NOSTRIL-B DAILY [facility] Last Admin: 10/09/21 09:30 Dose: 1 spray Haloperidol (Haloperidol 5 Mg Tablet) 5 mg PO Q4H PRN PRN Reason: si, agitation Hydroxyzine HCl (Hydroxyzine Hcl 25 Mg Tablet) 25 mg PO Q6H PRN PRN Reason: Anxiety Last Admin: 10/06/21 20:07 Dose: 25 mg [place] Carbonate ([place] Carbonate Er 300 Mg Tablet.Er) 600 mg PO BID [facility] Last Admin: 10/10/21 09:11 Dose: 600 mg Lorazepam (Lorazepam 1 Mg Tablet) 1 mg PO Q4H PRN PRN Reason: si, agitation Magnesium Hydroxide (Milk Of Magnesia 30 Ml Oral.Susp) 30 ml PO DAILY PRN PRN Reason: Constipation Last Admin: 10/08/21 09:27 Dose: 30 ml Melatonin (Melatonin 3 Mg Tablet) 9 mg PO BEDTIME [facility] Last Admin: 10/09/21 20:14 Dose: 9 mg Nicotine (Nicotine 14 Mg Patch.Td24) 14 mg TRANSDERMA DAILY [facility] Last Admin: 10/10/21 09:12 Dose: 14 mg Nicotine Polacrilex (Nicotine Polacrilex 2 Mg Gum) 2 mg BUCCAL Q2H PRN PRN Reason: nicotine withdrawal Pt Own Med ( Desvenlafaxine 100 Mg Tablet Extended Release 24 Hr) 100 mg PO DAILY [facility] Last Admin: 10/10/21 09:11 Dose: 100 mg Patient Own Medication (Bactine Max Cleansing [place] ) 2 sprays TOPICAL BID [facility] Last Admin: 10/09/21 22:12 Dose: 2 sprays Patient Own Medication (Bactine Hydrogel ) 1 applic TOPICAL BID [facility] Last Admin: 10/09/21 22:12 Dose: 1 applic Olanzapine (Olanzapine 7.5 Mg Tablet) 7.5 mg PO TID PRN PRN Reason: Anxiety Last Admin: 10/09/21 21:59 Dose: 7.5 mg Prazosin HCl 10 mg/ Prazosin (HCl 4 mg) 14 mg PO BEDTIME [facility] Last Admin: 10/09/21 20:14 Dose: 14 mg Saliva Substitute (Dry Mouth [place] 60 Ml [place]) 1 spray MUCOUS MEM Q2H PRN PRN Reason: Dry Mouth Last Admin: 10/09/21 15:28 Dose: 1 spray Thiamine HCl (Thiamine Hcl 100 Mg Tablet) 100 mg PO DAILY [facility] Last Admin: 10/10/21 09:11 Dose: 100 mg Trazodone HCl (Trazodone Hcl 100 Mg Tablet) 200 mg PO BEDTIME [facility] Last Admin: 10/09/21 20:14 Dose: 200 mg Vitamin D (Cholecalciferol (Vitamin D3) 25 Mcg Tablet) 50 mcg PO DAILY [facility] Last Admin: 10/10/21 09:11 Dose: 50 mcg Allergies Allergies Allergy/AdvReac Type Severity Reaction Status Date / Time Sulfa (Sulfonamide Allergy Unknown HIVES Verified 03/15/21 14:13 Antibiotics) [SULFA (SULFONAMIDE ANTIBIOTICS)] sulfamethoxazole Allergy Unknown HIVES Verified 03/15/21 14:13 [From BACTRIM] trimethoprim [From BACTRIM] Allergy Unknown HIVES Verified 03/15/21 14:13 oseltamivir [From Tamiflu] AdvReac Sensation Verified 09/29/21 11:20 of bugs crawling on skin. Assessment & Plan Assessment & Plan (1) MDD (major depressive disorder), recurrent severe, without psychosis: Status: Acute Code(s): F33.2 - Major depressive disorder, recurrent severe without psychotic features (2) PTSD (post-traumatic stress disorder): Status: Acute Code(s): F43.10 - Post-traumatic stress disorder, unspecified (3) Suicidal ideation: Status: Acute Code(s): R45.851 - Suicidal ideations Plan 36 yo non-binary individual, prefers they them pronouns, presents with active SI, SIBS, several plans to self-harm in the context of the anniversary of the loss of a child she planned to co-parent who was still born. Pt able to surrender a rope she made in the ER from clothing and agrees to one to one specialing to assist with management of her safety needs until she is able to manage with more independence. Pt reports an increase in sleep, decrease in functioning, unable to attend treatment activities, and constant thoughts of and dying-several plans for suicide including to head bang so severely she will fall asleep and never awaken. Plan pt on 1:1 for safety B12 supplement as levels are low TSH, FT4 One to One Special Increase Olanzpaine to 7.5 mg prn-pt plans to take this bid Full milieu involvement to process this anniversary of her loss 10/09/21 Continue current regime. 10/10 continue current regimen I spent minutes with the patient and/or on the patient floor today, greater than?50% of which was spent counseling/coordinating care. Patient educated on: therapeutic strategies Informed Consent: understands Reason for contiued inpatient stay Substantial Risk for: harm to self
[2021-10-10] MEDS: ALPRAZolam 0.5 MG TABLET 1 MG PO ×3 (09:58→20:32)
[2021-10-10] MEDS: OLANZapine 7.5 MG TABLET PO ×3 (09:58→20:32)
[2021-10-10] MEDS: Dry Mouth Spray 60 ML SPRAY 1 SPRAY MUCOUS MEM ×3 (09:58→20:37)
[2021-10-10] MEDS: Fluticasone Propionate Nasal 16 GM SPRAY NOSTRIL-B (09:58)
[2021-10-10 20:20] VITALS: BP 124/74; PULSE 97; TEMP 36.6
[2021-10-10] MEDS: traZODone HCL 100 MG TABLET 200 MG PO (20:34)
[2021-10-10] MEDS: PRAZOSIN HCL 14 MG PO (20:34)
[2021-10-10] MEDS: Melatonin 3 MG TABLET 9 MG PO (20:37)
[2021-10-11 06:00] VITALS: BP 121/79; PULSE 80; RESP 16; TEMP 36.5; O2SAT 96
[2021-10-11] MEDS: Thiamine HCL 100 MG TABLET PO (09:00)
[2021-10-11] MEDS: OLANZapine 7.5 MG TABLET PO ×3 (09:00→21:05)
[2021-10-11] MEDS: Cholecalciferol (Vitamin D3) 25 MCG TABLET 50 MCG PO (09:00)
[2021-10-11] MEDS: Amphetamine Mixed Salts 20 MG TABLET PO (09:00)
[2021-10-11] MEDS: Lithium Carbonate ER 300 MG TABLET.ER 600 MG PO ×2 (09:00→21:05)
[2021-10-11] MEDS: ALPRAZolam 0.5 MG TABLET 1 MG PO ×3 (09:00→21:05)
[2021-10-11] MEDS: Fluticasone Propionate Nasal 16 GM SPRAY NOSTRIL-B (09:00)
[2021-10-11] MEDS: Nicotine 14 MG PATCH.TD24 TRANSDERMA (09:01)
[2021-10-11] MEDS: Benztropine Mesylate 0.5 MG TABLET PO ×2 (09:01→21:05)
[2021-10-11] MEDS: LORazepam 1 MG TABLET PO (11:13)
[2021-10-11] MEDS: HaloperidoL 5 MG TABLET PO (11:13)
[2021-10-11 16:06] VITALS: BP 127/62; PULSE 74; TEMP 36.8; O2SAT 96
--- NOTE | 2021-10-11 16:31 | P.PNPSI_ITS ---
Subjective Subjective Date of Service: 10/11/21 Reason For Visit: Major depression, recurrent severe; PTSD Interim History: Patient remains on a one-to-one. [employer] met with patient who said that she is feeling strong urges to self-harm and needs to remain on a one-to-one. She reiterates that her urges only resolve with time and there is no other behavioral plan that would be helpful. She says that she was stable from April to September and was only this problematic and reverse 3 that was dysregulated. Mental Status Exam Mental Status Exam Narrative: Well-developed, overweight female, in NAD. No perceptual disturbances noted. No involuntary movements, no tics or tremors noted. Ambulation not observed. Patient Appearance: Appropriate Patient Orientation: Person, Place, Time and Situation Level of Consciousness: Appropriate Patient Behavior: Appropriate, Cooperative and Good Eye Contact Mood Description: Depressed and Anxious Affect Description: Depressed and Flat Patient Cognition Impaired: No Ability to Follow Directions: Good Speech Pattern: Clear, Monotone and Coherent Memory Description: Intact Hallucinations: None Delusions: Not Present Perceptual Disturbances: Depersonalization Thought Process: Intact and Rumination Thought Content: positive for Intact and positive for Suicidal Ideation (p assive, no intent/plan) Depressive Symptoms: Increased Anxiety, Difficulty Sleeping, Crying Spells, Sleeping More Than Usual, Loss of Int. in Activity, Hopelessness, Feelings of Guilt, Unhappiness, Increased Fatigue, Thoughts of /Suicide and Loss of Energy Judgement: Fair Diagnostics Vital Signs (24Hr): Vital Signs - 24 hr 10/10/21 20:20 10/11/21 06:00 10/11/21 16:06 Temperature 97.9 F 97.7 F 98.2 F Pulse Rate 97 80 74 Respiratory Rate 16 Blood Pressure 124/74 121/79 127/62 Pulse Oximetry 96 96 BMI result Body Mass Index 54.1 Labs Results: 10/05/21 17:52 10/05/21 17:52 Medications Medications Current Medications Acetaminophen (Acetaminophen 325 Mg Tablet) 650 mg PO Q6H PRN PRN Reason: Headache/Pain Mild Scale (1-3) Al Hydroxide/Mg Hydroxide (Magnesium Hydrox/Alum Hydrox 30 Ml Oral.Susp) 30 ml PO Q6H PRN PRN Reason: Heartburn/Nausea Alprazolam (Alprazolam 0.5 Mg Tablet) 1 mg PO QID PRN PRN Reason: anxiety Last Admin: 10/11/21 14:28 Dose: 1 mg Amphetamine/Dextroamphetamine (Amphetamine Mixed Salts 20 Mg Tablet) 20 mg PO DAILY [facility] Last Admin: 10/11/21 09:00 Dose: 20 mg Benztropine Mesylate (Benztropine Mesylate 0.5 Mg Tablet) 0.5 mg PO BID [facility] Last Admin: 10/11/21 09:01 Dose: 0.5 mg Fluticasone Propionate (Fluticasone Propionate Nasal 16 Gm [place]) 1 - 2 spray NOSTRIL-B DAILY [facility] Last Admin: 10/11/21 09:00 Dose: 1 spray Haloperidol (Haloperidol 5 Mg Tablet) 5 mg PO Q4H PRN PRN Reason: si, agitation Last Admin: 10/11/21 11:13 Dose: 5 mg Hydroxyzine HCl (Hydroxyzine Hcl 25 Mg Tablet) 25 mg PO Q6H PRN PRN Reason: Anxiety Last Admin: 10/06/21 20:07 Dose: 25 mg [place] Carbonate ([place] Carbonate Er 300 Mg Tablet.Er) 600 mg PO BID [facility] Last Admin: 10/11/21 09:00 Dose: 600 mg Lorazepam (Lorazepam 1 Mg Tablet) 1 mg PO Q4H PRN PRN Reason: si, agitation Last Admin: 10/11/21 11:13 Dose: 1 mg Magnesium Hydroxide (Milk Of Magnesia 30 Ml Oral.Susp) 30 ml PO DAILY PRN PRN Reason: Constipation Last Admin: 10/08/21 09:27 Dose: 30 ml Melatonin (Melatonin 3 Mg Tablet) 9 mg PO BEDTIME [facility] Last Admin: 10/10/21 20:37 Dose: 9 mg Nicotine (Nicotine 14 Mg Patch.Td24) 14 mg TRANSDERMA DAILY [facility] Last Admin: 10/11/21 09:01 Dose: 14 mg Nicotine Polacrilex (Nicotine Polacrilex 2 Mg Gum) 2 mg BUCCAL Q2H PRN PRN Reason: nicotine withdrawal Pt Own Med ( Desvenlafaxine 100 Mg Tablet Extended Release 24 Hr) 100 mg PO DAILY [facility] Last Admin: 10/11/21 09:00 Dose: 100 mg Patient Own Medication (Bactine Max Cleansing [place] ) 2 sprays TOPICAL BID [facility] Last Admin: 10/11/21 09:01 Dose: 2 sprays Patient Own Medication (Bactine Hydrogel ) 1 applic TOPICAL BID [facility] Last Admin: 10/11/21 09:01 Dose: 1 applic Olanzapine (Olanzapine 7.5 Mg Tablet) 7.5 mg PO TID PRN PRN Reason: Anxiety Last Admin: 10/11/21 14:29 Dose: 7.5 mg Prazosin HCl 10 mg/ Prazosin (HCl 4 mg) 14 mg PO BEDTIME [facility] Last Admin: 10/10/21 20:34 Dose: 14 mg Saliva Substitute (Dry Mouth [place] 60 Ml [place]) 1 spray MUCOUS MEM Q2H PRN PRN Reason: Dry Mouth Last Admin: 10/10/21 20:37 Dose: 1 spray Thiamine HCl (Thiamine Hcl 100 Mg Tablet) 100 mg PO DAILY [facility] Last Admin: 10/11/21 09:00 Dose: 100 mg Trazodone HCl (Trazodone Hcl 100 Mg Tablet) 200 mg PO BEDTIME [facility] Last Admin: 10/10/21 20:34 Dose: 200 mg Vitamin D (Cholecalciferol (Vitamin D3) 25 Mcg Tablet) 50 mcg PO DAILY [facility] Last Admin: 10/11/21 09:00 Dose: 50 mcg Allergies Allergies Allergy/AdvReac Type Severity Reaction Status Date / Time Sulfa (Sulfonamide Allergy Unknown HIVES Verified 03/15/21 14:13 Antibiotics) [SULFA (SULFONAMIDE ANTIBIOTICS)] sulfamethoxazole Allergy Unknown HIVES Verified 03/15/21 14:13 [From BACTRIM] trimethoprim [From BACTRIM] Allergy Unknown HIVES Verified 03/15/21 14:13 oseltamivir [From Tamiflu] AdvReac Sensation Verified 09/29/21 11:20 of bugs crawling on skin. Assessment & Plan Assessment & Plan (1) MDD (major depressive disorder), recurrent severe, without psychosis: Status: Acute Code(s): F33.2 - Major depressive disorder, recurrent severe without psychotic features (2) PTSD (post-traumatic stress disorder): Status: Acute Code(s): F43.10 - Post-traumatic stress disorder, unspecified (3) Suicidal ideation: Status: Acute Code(s): R45.851 - Suicidal ideations Plan 36 yo non-binary individual, prefers they them pronouns, presents with active SI, SIBS, several plans to self-harm in the context of the anniversary of the loss of a child she planned to co-parent who was still born. Pt able to surrender a rope she made in the ER from clothing and agrees to one to one specialing to assist with management of her safety needs until she is able to manage with more independence. Pt reports an increase in sleep, decrease in functioning, unable to attend treatment activities, and constant thoughts of and dying-several plans for suicide including to head bang so severely she will fall asleep and never awaken. Plan pt on 1:1 for safety B12 supplement as levels are low TSH, FT4 One to One Special Increase Olanzpaine to 7.5 mg prn-pt plans to take this bid Full milieu involvement to process this anniversary of her loss 10/09/21 Continue current regime. 10/10 continue current regimen 10/10 continue current regimen I spent minutes with the patient and/or on the patient floor today, greater than?50% of which was spent counseling/coordinating care. Patient educated on: therapeutic strategies Informed Consent: understands Reason for contiued inpatient stay Substantial Risk for: rapid decompensation
[2021-10-11] MEDS: Dry Mouth Spray 60 ML SPRAY 1 SPRAY MUCOUS MEM (21:01)
[2021-10-11] MEDS: Melatonin 3 MG TABLET 9 MG PO (21:04)
[2021-10-11] MEDS: traZODone HCL 100 MG TABLET 200 MG PO (21:04)
[2021-10-11] MEDS: PRAZOSIN HCL 14 MG PO (21:04)
[2021-10-11 21:10] VITALS: BP 129/72
[2021-10-12] MEDS: Nicotine 14 MG PATCH.TD24 TRANSDERMA (09:34)
[2021-10-12] MEDS: Cholecalciferol (Vitamin D3) 25 MCG TABLET 50 MCG PO (09:35)
[2021-10-12] MEDS: OLANZapine 7.5 MG TABLET PO ×3 (09:35→20:09)
[2021-10-12] MEDS: Amphetamine Mixed Salts 20 MG TABLET PO (09:35)
[2021-10-12] MEDS: Lithium Carbonate ER 300 MG TABLET.ER 600 MG PO ×2 (09:35→20:10)
[2021-10-12] MEDS: Benztropine Mesylate 0.5 MG TABLET PO ×2 (09:35→20:09)
[2021-10-12] MEDS: Dry Mouth Spray 60 ML SPRAY 1 SPRAY MUCOUS MEM ×2 (09:35→20:08)
[2021-10-12] MEDS: ALPRAZolam 0.5 MG TABLET 1 MG PO ×3 (09:35→20:09)
[2021-10-12] MEDS: Thiamine HCL 100 MG TABLET PO (09:35)
[2021-10-12] MEDS: Fluticasone Propionate Nasal 16 GM SPRAY NOSTRIL-B (09:36)
[2021-10-12] MEDS: HaloperidoL 5 MG TABLET PO (13:18)
[2021-10-12] MEDS: LORazepam 1 MG TABLET PO (13:19)
--- NOTE | 2021-10-12 15:54 | HO.PSYCHPN ---
Subjective Subjective Date of Service: 10/12/21 Reason For Visit: Major depression, recurrent severe; PTSD Subjective Notes: Conditional Voluntary Healthcare Proxy: No Guardianship: No Medical Problems Affecting Mental Status: No Interim History: Utilizing all prn medications-unsure why she is feeling such intensity of suicidality and self-harm. Believes as it is the eleventh it is 13 months exactly- what would it be like to have a 13 month old? Reports sleep is toss/turn with some napping during the day. Appetite is OK . One to one is appreciated and helpful . Asks to increase Haldol/Ativan prn's. Discussed adding Colace and Metamucil. Scars on abdomen are healing with regime. Discussed filing her DMH application and future goal of being able to foster children-wonders if having DMH would prevent her from being able to foster a child. States Carlita Raymond [facility] has asked this question of DCF and she awaits an answer. Discussed her future- I guess I want to be here to do this. Medication Compliance: Yes Side effects from medications: No Attending Groups: Yes Review of Systems Acute medical concerns: No Medical Review of Systems: unchanged Review of Systems Psychiatric: Reports anxiety, Reports depression, Reports difficulty concentrating, Reports hopelessness, Reports anhedonia and Reports suicidal ideation Mental Status Exam Mental Status Exam Patient Appearance: Appropriate Patient Orientation: Person, Place, Time and Situation Level of Consciousness: Alert Patient Behavior: Talkative and Good Eye Contact Mood Description: Depressed Affect Description: Flat Patient Cognition Impaired: No Ability to Follow Directions: Good Speech Pattern: Spontaneous Speech Memory Description: Intact Hallucinations: None Delusions: Not Present Perceptual Disturbances: Depersonalization and Derealization Thought Process: Rumination Thought Content: positive for Perseveration Depressive Symptoms: Increased Anxiety and Thoughts of /Suicide Judgement: Fair Diagnostics Vital Signs (24Hr): Vital Signs - 24 hr 10/11/21 16:06 10/11/21 21:10 Temperature 98.2 F Pulse Rate 74 Blood Pressure 127/62 129/72 Pulse Oximetry 96 BMI result Body Mass Index 54.1 Labs Results: 10/05/21 17:52 10/05/21 17:52 Medications Medications Current Medications Acetaminophen (Acetaminophen 325 Mg Tablet) 650 mg PO Q6H PRN PRN Reason: Headache/Pain Mild Scale (1-3) Al Hydroxide/Mg Hydroxide (Magnesium Hydrox/Alum Hydrox 30 Ml Oral.Susp) 30 ml PO Q6H PRN PRN Reason: Heartburn/Nausea Alprazolam (Alprazolam 0.5 Mg Tablet) 1 mg PO QID PRN PRN Reason: anxiety Last Admin: 10/12/21 14:42 Dose: 1 mg Amphetamine/Dextroamphetamine (Amphetamine Mixed Salts 20 Mg Tablet) 20 mg PO DAILY [facility] Last Admin: 10/12/21 09:35 Dose: 20 mg Benztropine Mesylate (Benztropine Mesylate 0.5 Mg Tablet) 0.5 mg PO BID [facility] Last Admin: 10/12/21 09:35 Dose: 0.5 mg Fluticasone Propionate (Fluticasone Propionate Nasal 16 Gm [place]) 1 - 2 spray NOSTRIL-B DAILY [facility] Last Admin: 10/12/21 09:36 Dose: 1 spray Haloperidol (Haloperidol 5 Mg Tablet) 5 mg PO Q4H PRN PRN Reason: si, agitation Last Admin: 10/12/21 13:18 Dose: 5 mg Hydroxyzine HCl (Hydroxyzine Hcl 25 Mg Tablet) 25 mg PO Q6H PRN PRN Reason: Anxiety Last Admin: 10/06/21 20:07 Dose: 25 mg [place] Carbonate ([place] Carbonate Er 300 Mg Tablet.Er) 600 mg PO BID [facility] Last Admin: 10/12/21 09:35 Dose: 600 mg Lorazepam (Lorazepam 1 Mg Tablet) 1 mg PO Q4H PRN PRN Reason: si, agitation Last Admin: 10/12/21 13:19 Dose: 1 mg Magnesium Hydroxide (Milk Of Magnesia 30 Ml Oral.Susp) 30 ml PO DAILY PRN PRN Reason: Constipation Last Admin: 10/08/21 09:27 Dose: 30 ml Melatonin (Melatonin 3 Mg Tablet) 9 mg PO BEDTIME [facility] Last Admin: 10/11/21 21:04 Dose: 9 mg Nicotine (Nicotine 14 Mg Patch.Td24) 14 mg TRANSDERMA DAILY [facility] Last Admin: 10/12/21 09:34 Dose: 14 mg Nicotine Polacrilex (Nicotine Polacrilex 2 Mg Gum) 2 mg BUCCAL Q2H PRN PRN Reason: nicotine withdrawal Pt Own Med ( Desvenlafaxine 100 Mg Tablet Extended Release 24 Hr) 100 mg PO DAILY [facility] Last Admin: 10/12/21 09:34 Dose: 100 mg Patient Own Medication (Bactine Max Cleansing [place] ) 2 sprays TOPICAL BID [facility] Last Admin: 10/12/21 09:36 Dose: 2 sprays Patient Own Medication (Bactine Hydrogel ) 1 applic TOPICAL BID [facility] Last Admin: 10/12/21 09:36 Dose: 1 applic Olanzapine (Olanzapine 7.5 Mg Tablet) 7.5 mg PO TID PRN PRN Reason: Anxiety Last Admin: 10/12/21 14:42 Dose: 7.5 mg Prazosin HCl 10 mg/ Prazosin (HCl 4 mg) 14 mg PO BEDTIME [facility] Last Admin: 10/11/21 21:04 Dose: 14 mg Saliva Substitute (Dry Mouth [place] 60 Ml [place]) 1 spray MUCOUS MEM Q2H PRN PRN Reason: Dry Mouth Last Admin: 10/12/21 09:35 Dose: 1 spray Thiamine HCl (Thiamine Hcl 100 Mg Tablet) 100 mg PO DAILY [facility] Last Admin: 10/12/21 09:35 Dose: 100 mg Trazodone HCl (Trazodone Hcl 100 Mg Tablet) 200 mg PO BEDTIME [facility] Last Admin: 10/11/21 21:04 Dose: 200 mg Vitamin D (Cholecalciferol (Vitamin D3) 25 Mcg Tablet) 50 mcg PO DAILY [facility] Last Admin: 10/12/21 09:35 Dose: 50 mcg Allergies Allergies Allergy/AdvReac Type Severity Reaction Status Date / Time Sulfa (Sulfonamide Allergy Unknown HIVES Verified 03/15/21 14:13 Antibiotics) [SULFA (SULFONAMIDE ANTIBIOTICS)] sulfamethoxazole Allergy Unknown HIVES Verified 03/15/21 14:13 [From BACTRIM] trimethoprim [From BACTRIM] Allergy Unknown HIVES Verified 03/15/21 14:13 oseltamivir [From Tamiflu] AdvReac Sensation Verified 09/29/21 11:20 of bugs crawling on skin. Assessment & Plan Assessment & Plan (1) MDD (major depressive disorder), recurrent severe, without psychosis: Status: Acute Code(s): F33.2 - Major depressive disorder, recurrent severe without psychotic features (2) PTSD (post-traumatic stress disorder): Status: Acute Code(s): F43.10 - Post-traumatic stress disorder, unspecified (3) Suicidal ideation: Status: Acute Code(s): R45.851 - Suicidal ideations Plan 36 yo non-binary individual, prefers they them pronouns, presents with active SI, SIBS, several plans to self-harm in the context of the anniversary of the loss of a child she planned to co-parent who was still born. Pt able to surrender a rope she made in the ER from clothing and agrees to one to one specialing to assist with management of her safety needs until she is able to manage with more independence. Pt reports an increase in sleep, decrease in functioning, unable to attend treatment activities, and constant thoughts of and dying-several plans for suicide including to head bang so severely she will fall asleep and never awaken. Plan pt on 1:1 for safety B12 supplement as levels are low TSH, FT4 One to One Special Increase Olanzpaine to 7.5 mg prn-pt plans to take this bid Full milieu involvement to process this anniversary of her loss 10/09/21 Continue current regime. 10/10 continue current regimen 10/11 continue current regimen 10/12/21- Haldol/Ativan prn increase to 10mg/2mg bid prn I spent minutes with the patient and/or on the patient floor today, greater than?50% of which was spent counseling/coordinating care. Patient educated on: medication risk/benefits and therapeutic strategies Informed Consent: understands Reason for contiued inpatient stay Substantial Risk for: harm to self, inability to function and rapid decompensation
[2021-10-12 17:45] VITALS: BP 130/70; PULSE 79; RESP 15; TEMP 36.4; O2SAT 98
[2021-10-12 20:06] VITALS: BP 137/80; PULSE 97
[2021-10-12] MEDS: Melatonin 3 MG TABLET 9 MG PO (20:08)
[2021-10-12] MEDS: PRAZOSIN HCL 14 MG PO (20:09)
[2021-10-12] MEDS: traZODone HCL 100 MG TABLET 200 MG PO (20:10)
[2021-10-13] MEDS: Dry Mouth Spray 60 ML SPRAY 1 SPRAY MUCOUS MEM ×2 (08:38→21:13)
[2021-10-13] MEDS: Fluticasone Propionate Nasal 16 GM SPRAY NOSTRIL-B (08:38)
[2021-10-13] MEDS: Cholecalciferol (Vitamin D3) 25 MCG TABLET 50 MCG PO (08:39)
[2021-10-13] MEDS: Amphetamine Mixed Salts 20 MG TABLET PO (08:39)
[2021-10-13] MEDS: hydrOXYzine HCL 25 MG TABLET PO (08:39)
[2021-10-13] MEDS: Lithium Carbonate ER 300 MG TABLET.ER 600 MG PO ×2 (08:39→21:11)
[2021-10-13] MEDS: ALPRAZolam 0.5 MG TABLET 1 MG PO ×2 (08:39→21:13)
[2021-10-13] MEDS: Benztropine Mesylate 0.5 MG TABLET PO ×2 (08:39→21:10)
[2021-10-13] MEDS: Thiamine HCL 100 MG TABLET PO (08:39)
[2021-10-13] MEDS: Nicotine 14 MG PATCH.TD24 TRANSDERMA (08:40)
[2021-10-13] MEDS: Docusate Sodium 100 MG CAPSULE PO ×2 (08:40→21:10)
[2021-10-13] MEDS: Milk of Magnesia 30 ML ORAL.SUSP PO (11:55)
--- NOTE | 2021-10-13 12:30 | P.PNPSI_ITS ---
Subjective Subjective Date of Service: 10/13/21 Reason For Visit: Major depression, recurrent severe; PTSD Subjective Notes: Conditional Voluntary Healthcare Proxy: No Guardianship: No Medical Problems Affecting Mental Status: No Interim History: Reports the morning was OK. Needed prn in the afternoon. Discussed the waves of feelings-some times feeling more like suicide, some times feeling more like head banging. Attempted to differentiate these. Urges are stronger at different times. Attending groups, just awoke from a nap prior to our meeting. Medication Compliance: Yes Side effects from medications: No Attending Groups: Yes Review of Systems Acute medical concerns: No Medical Review of Systems: unchanged Review of Systems Psychiatric: Reports anxiety, Reports depression, Reports difficulty concentrating, Reports hopelessness, Reports anhedonia and Reports suicidal ideation Mental Status Exam Mental Status Exam Patient Appearance: Appropriate Patient Orientation: Person, Place, Time and Situation Level of Consciousness: Alert Patient Behavior: Talkative and Good Eye Contact Mood Description: Depressed Affect Description: Flat Patient Cognition Impaired: No Ability to Follow Directions: Good Speech Pattern: Spontaneous Speech Memory Description: Intact Hallucinations: None Delusions: Not Present Perceptual Disturbances: Depersonalization and Derealization Thought Process: Rumination Thought Content: positive for Perseveration Depressive Symptoms: Increased Anxiety and Thoughts of /Suicide Judgement: Fair Diagnostics Vital Signs (24Hr): Vital Signs - 24 hr 10/12/21 17:45 10/12/21 20:06 Temperature 97.6 F Pulse Rate 79 97 Respiratory Rate 15 Blood Pressure 130/70 137/80 Pulse Oximetry 98 Oxygen Delivery Method Room Air BMI result Body Mass Index 54.1 Labs Results: 10/05/21 17:52 10/05/21 17:52 Medications Medications Current Medications Acetaminophen (Acetaminophen 325 Mg Tablet) 650 mg PO Q6H PRN PRN Reason: Headache/Pain Mild Scale (1-3) Al Hydroxide/Mg Hydroxide (Magnesium Hydrox/Alum Hydrox 30 Ml Oral.Susp) 30 ml PO Q6H PRN PRN Reason: Heartburn/Nausea Alprazolam (Alprazolam 0.5 Mg Tablet) 1 mg PO QID PRN PRN Reason: anxiety Last Admin: 10/13/21 08:39 Dose: 1 mg Amphetamine/Dextroamphetamine (Amphetamine Mixed Salts 20 Mg Tablet) 20 mg PO DAILY [facility] Last Admin: 10/13/21 08:39 Dose: 20 mg Benztropine Mesylate (Benztropine Mesylate 0.5 Mg Tablet) 0.5 mg PO BID [facility] Last Admin: 10/13/21 08:39 Dose: 0.5 mg Docusate Sodium (Docusate Sodium 100 Mg Capsule) 100 mg PO BID [facility] Last Admin: 10/13/21 08:40 Dose: 100 mg Fluticasone Propionate (Fluticasone Propionate Nasal 16 Gm [place]) 1 - 2 spray NOSTRIL-B DAILY [facility] Last Admin: 10/13/21 08:38 Dose: 1 spray Haloperidol (Haloperidol 5 Mg Tablet) 10 mg PO BID PRN PRN Reason: si, agitation Hydroxyzine HCl (Hydroxyzine Hcl 25 Mg Tablet) 25 mg PO Q6H PRN PRN Reason: Anxiety Last Admin: 10/13/21 08:39 Dose: 25 mg [place] Carbonate ([place] Carbonate Er 300 Mg Tablet.Er) 600 mg PO BID [facility] Last Admin: 10/13/21 08:39 Dose: 600 mg Lorazepam (Lorazepam 1 Mg Tablet) 2 mg PO BID PRN PRN Reason: si, agitation Magnesium Hydroxide (Milk Of Magnesia 30 Ml Oral.Susp) 30 ml PO DAILY PRN PRN Reason: Constipation Last Admin: 10/13/21 11:55 Dose: 30 ml Melatonin (Melatonin 3 Mg Tablet) 9 mg PO BEDTIME [facility] Last Admin: 10/12/21 20:08 Dose: 9 mg Nicotine (Nicotine 14 Mg Patch.Td24) 14 mg TRANSDERMA DAILY [facility] Last Admin: 10/13/21 08:40 Dose: 14 mg Nicotine Polacrilex (Nicotine Polacrilex 2 Mg Gum) 2 mg BUCCAL Q2H PRN PRN Reason: nicotine withdrawal Pt Own Med ( Desvenlafaxine 100 Mg Tablet Extended Release 24 Hr) 100 mg PO DAILY [facility] Last Admin: 10/13/21 08:39 Dose: 100 mg Patient Own Medication (Bactine Max Cleansing [place] ) 2 sprays TOPICAL BID [facility] Last Admin: 10/13/21 08:45 Dose: Not Given Patient Own Medication (Bactine Hydrogel ) 1 applic TOPICAL BID [facility] Last Admin: 10/13/21 08:45 Dose: Not Given Olanzapine (Olanzapine 7.5 Mg Tablet) 7.5 mg PO TID PRN PRN Reason: Anxiety Last Admin: 10/12/21 20:09 Dose: 7.5 mg Prazosin HCl 10 mg/ Prazosin (HCl 4 mg) 14 mg PO BEDTIME [facility] Last Admin: 10/12/21 20:09 Dose: 14 mg Psyllium Hydrophilic Mucilloid (Psyllium Seed 3.4 Gm Powd.Pack) 3.4 gm PO BEDTIME [facility] Last Admin: 10/12/21 22:02 Dose: Not Given Saliva Substitute (Dry Mouth [place] 60 Ml [place]) 1 spray MUCOUS MEM Q2H PRN PRN Reason: Dry Mouth Last Admin: 10/13/21 08:38 Dose: 1 spray Thiamine HCl (Thiamine Hcl 100 Mg Tablet) 100 mg PO DAILY [facility] Last Admin: 10/13/21 08:39 Dose: 100 mg Trazodone HCl (Trazodone Hcl 100 Mg Tablet) 200 mg PO BEDTIME [facility] Last Admin: 10/12/21 20:10 Dose: 200 mg Vitamin D (Cholecalciferol (Vitamin D3) 25 Mcg Tablet) 50 mcg PO DAILY [facility] Last Admin: 10/13/21 08:39 Dose: 50 mcg Allergies Allergies Allergy/AdvReac Type Severity Reaction Status Date / Time Sulfa (Sulfonamide Allergy Unknown HIVES Verified 03/15/21 14:13 Antibiotics) [SULFA (SULFONAMIDE ANTIBIOTICS)] sulfamethoxazole Allergy Unknown HIVES Verified 03/15/21 14:13 [From BACTRIM] trimethoprim [From BACTRIM] Allergy Unknown HIVES Verified 03/15/21 14:13 oseltamivir [From Tamiflu] AdvReac Sensation Verified 09/29/21 11:20 of bugs crawling on skin. Assessment & Plan Assessment & Plan (1) MDD (major depressive disorder), recurrent severe, without psychosis: Status: Acute Code(s): F33.2 - Major depressive disorder, recurrent severe without psychotic features (2) PTSD (post-traumatic stress disorder): Status: Acute Code(s): F43.10 - Post-traumatic stress disorder, unspecified (3) Suicidal ideation: Status: Acute Code(s): R45.851 - Suicidal ideations Plan 36 yo non-binary individual, prefers they them pronouns, presents with active SI, SIBS, several plans to self-harm in the context of the anniversary of the loss of a child she planned to co-parent who was still born. Pt able to surrender a rope she made in the ER from clothing and agrees to one to one specialing to assist with management of her safety needs until she is able to manage with more independence. Pt reports an increase in sleep, decrease in functioning, unable to attend treatment activities, and constant thoughts of and dying-several plans for suicide including to head bang so severely she will fall asleep and never awaken. Plan pt on 1:1 for safety B12 supplement as levels are low TSH, FT4 One to One Special Increase Olanzpaine to 7.5 mg prn-pt plans to take this bid Full milieu involvement to process this anniversary of her loss 10/09/21 Continue current regime. 10/10 continue current regimen 10/10 continue current regimen 10/13/21 Continue current plan. I spent minutes with the patient and/or on the patient floor today, greater than?50% of which was spent counseling/coordinating care. Patient educated on: therapeutic strategies Informed Consent: understands Reason for contiued inpatient stay Substantial Risk for: harm to self, inability to function and rapid decompensation
[2021-10-13] MEDS: HaloperidoL 5 MG TABLET 10 MG PO (14:07)
[2021-10-13] MEDS: LORazepam 1 MG TABLET 2 MG PO (14:08)
[2021-10-13 18:00] VITALS: BP 135/82; PULSE 92; RESP 20; TEMP 36.4; O2SAT 96
[2021-10-13] MEDS: Melatonin 3 MG TABLET 9 MG PO (21:10)
[2021-10-13] MEDS: traZODone HCL 100 MG TABLET 200 MG PO (21:11)
[2021-10-13] MEDS: PRAZOSIN HCL 14 MG PO (21:12)
[2021-10-13] MEDS: OLANZapine 7.5 MG TABLET PO (21:13)
[2021-10-14] MEDS: Fluticasone Propionate Nasal 16 GM SPRAY NOSTRIL-B (09:32)
[2021-10-14] MEDS: Benztropine Mesylate 0.5 MG TABLET PO ×2 (09:33→22:07)
[2021-10-14] MEDS: Cholecalciferol (Vitamin D3) 25 MCG TABLET 50 MCG PO (09:33)
[2021-10-14] MEDS: Lithium Carbonate ER 300 MG TABLET.ER 600 MG PO ×2 (09:33→21:14)
[2021-10-14] MEDS: Dry Mouth Spray 60 ML SPRAY 1 SPRAY MUCOUS MEM (09:33)
[2021-10-14] MEDS: Thiamine HCL 100 MG TABLET PO (09:33)
[2021-10-14] MEDS: ALPRAZolam 0.5 MG TABLET 1 MG PO ×2 (09:33→21:12)
[2021-10-14] MEDS: Amphetamine Mixed Salts 20 MG TABLET PO (09:33)
[2021-10-14] MEDS: OLANZapine 7.5 MG TABLET PO ×2 (09:33→21:12)
[2021-10-14] MEDS: Docusate Sodium 100 MG CAPSULE PO ×2 (09:33→21:14)
[2021-10-14] MEDS: Nicotine 14 MG PATCH.TD24 TRANSDERMA (09:34)
[2021-10-14 10:27] VITALS: BP 129/70; PULSE 87; RESP 18; TEMP 36.3; O2SAT 94
[2021-10-14] MEDS: Nicotine Polacrilex 2 MG GUM BUCCAL ×2 (11:46→18:37)
--- NOTE | 2021-10-14 13:16 | P.PNPSI_ITS ---
Subjective Subjective Date of Service: 10/14/21 Reason For Visit: Major depression, recurrent severe; PTSD Subjective Notes: Conditional Voluntary Healthcare Proxy: No Guardianship: No Medical Problems Affecting Mental Status: No Interim History: Discussed stopping one to one and discharge. Discussed pt concerns about precipitous discharge and how that will be approached. Considering stopping one to one, however, still experiencing times of intense SI with plans-head banging, hanging, drowning in shower. Some thoughts about her future evident this week- looking forward to having a new room-mate who is a friend, wanting to foster children in the future, all strong signs of recovering. Medication Compliance: Yes Side effects from medications: No Attending Groups: Yes Review of Systems Acute medical concerns: No Medical Review of Systems: unchanged Review of Systems Psychiatric: Reports anxiety, Reports depression, Reports difficulty concentrating, Reports hopelessness, Reports anhedonia and Reports suicidal ideation Mental Status Exam Mental Status Exam Patient Appearance: Appropriate Patient Orientation: Person, Place, Time and Situation Level of Consciousness: Alert Patient Behavior: Talkative and Good Eye Contact Mood Description: Depressed Affect Description: Flat Patient Cognition Impaired: No Ability to Follow Directions: Good Speech Pattern: Spontaneous Speech Memory Description: Intact Hallucinations: None Delusions: Not Present Perceptual Disturbances: Depersonalization and Derealization Thought Process: Rumination Thought Content: positive for Perseveration Depressive Symptoms: Increased Anxiety and Thoughts of /Suicide Judgement: Fair Diagnostics Vital Signs (24Hr): Vital Signs - 24 hr 10/13/21 18:00 10/14/21 10:27 Temperature 97.6 F 97.4 F Pulse Rate 92 87 Respiratory Rate 20 18 Blood Pressure 135/82 129/70 Pulse Oximetry 96 94 Oxygen Delivery Method Room Air Room Air BMI result Body Mass Index 54.1 Labs Results: 10/05/21 17:52 10/05/21 17:52 Medications Medications Current Medications Acetaminophen (Acetaminophen 325 Mg Tablet) 650 mg PO Q6H PRN PRN Reason: Headache/Pain Mild Scale (1-3) Al Hydroxide/Mg Hydroxide (Magnesium Hydrox/Alum Hydrox 30 Ml Oral.Susp) 30 ml PO Q6H PRN PRN Reason: Heartburn/Nausea Alprazolam (Alprazolam 0.5 Mg Tablet) 1 mg PO QID PRN PRN Reason: anxiety Last Admin: 10/14/21 09:33 Dose: 1 mg Amphetamine/Dextroamphetamine (Amphetamine Mixed Salts 20 Mg Tablet) 20 mg PO DAILY [facility] Last Admin: 10/14/21 09:33 Dose: 20 mg Benztropine Mesylate (Benztropine Mesylate 0.5 Mg Tablet) 0.5 mg PO BID [facility] Last Admin: 10/14/21 09:33 Dose: 0.5 mg Docusate Sodium (Docusate Sodium 100 Mg Capsule) 100 mg PO BID [facility] Last Admin: 10/14/21 09:33 Dose: 100 mg Fluticasone Propionate (Fluticasone Propionate Nasal 16 Gm [place]) 1 - 2 spray NOSTRIL-B DAILY [facility] Last Admin: 10/14/21 09:32 Dose: 1 spray Haloperidol (Haloperidol 5 Mg Tablet) 10 mg PO BID PRN PRN Reason: si, agitation Last Admin: 10/13/21 14:07 Dose: 10 mg Hydroxyzine HCl (Hydroxyzine Hcl 25 Mg Tablet) 25 mg PO Q6H PRN PRN Reason: Anxiety Last Admin: 10/13/21 08:39 Dose: 25 mg [place] Carbonate ([place] Carbonate Er 300 Mg Tablet.Er) 600 mg PO BID [facility] Last Admin: 10/14/21 09:33 Dose: 600 mg Lorazepam (Lorazepam 1 Mg Tablet) 2 mg PO BID PRN PRN Reason: si, agitation Last Admin: 10/13/21 14:08 Dose: 2 mg Magnesium Hydroxide (Milk Of Magnesia 30 Ml Oral.Susp) 30 ml PO DAILY PRN PRN Reason: Constipation Last Admin: 10/13/21 11:55 Dose: 30 ml Melatonin (Melatonin 3 Mg Tablet) 9 mg PO BEDTIME [facility] Last Admin: 10/13/21 21:10 Dose: 9 mg Nicotine (Nicotine 14 Mg Patch.Td24) 14 mg TRANSDERMA DAILY [facility] Last Admin: 10/14/21 09:34 Dose: 14 mg Nicotine Polacrilex (Nicotine Polacrilex 2 Mg Gum) 2 mg BUCCAL Q2H PRN PRN Reason: nicotine withdrawal Last Admin: 10/14/21 11:46 Dose: 2 mg Pt Own Med ( Desvenlafaxine 100 Mg Tablet Extended Release 24 Hr) 100 mg PO DAILY [facility] Last Admin: 10/14/21 09:33 Dose: 100 mg Patient Own Medication (Bactine Max Cleansing [place] ) 2 sprays TOPICAL BID [facility] Last Admin: 10/14/21 10:05 Dose: Not Given Patient Own Medication (Bactine Hydrogel ) 1 applic TOPICAL BID [facility] Last Admin: 10/14/21 10:05 Dose: Not Given Olanzapine (Olanzapine 7.5 Mg Tablet) 7.5 mg PO TID PRN PRN Reason: Anxiety Last Admin: 10/14/21 09:33 Dose: 7.5 mg Prazosin HCl 10 mg/ Prazosin (HCl 4 mg) 14 mg PO BEDTIME [facility] Last Admin: 10/13/21 21:12 Dose: 14 mg Psyllium Hydrophilic Mucilloid (Psyllium Seed 3.4 Gm Powd.Pack) 3.4 gm PO BEDTIME [facility] Last Admin: 10/13/21 21:11 Dose: Not Given Saliva Substitute (Dry Mouth [place] 60 Ml [place]) 1 spray MUCOUS MEM Q2H PRN PRN Reason: Dry Mouth Last Admin: 10/14/21 09:33 Dose: 1 spray Thiamine HCl (Thiamine Hcl 100 Mg Tablet) 100 mg PO DAILY [facility] Last Admin: 10/14/21 09:33 Dose: 100 mg Trazodone HCl (Trazodone Hcl 100 Mg Tablet) 200 mg PO BEDTIME [facility] Last Admin: 10/13/21 21:11 Dose: 200 mg Vitamin D (Cholecalciferol (Vitamin D3) 25 Mcg Tablet) 50 mcg PO DAILY [facility] Last Admin: 10/14/21 09:33 Dose: 50 mcg Allergies Allergies Allergy/AdvReac Type Severity Reaction Status Date / Time Sulfa (Sulfonamide Allergy Unknown HIVES Verified 03/15/21 14:13 Antibiotics) [SULFA (SULFONAMIDE ANTIBIOTICS)] sulfamethoxazole Allergy Unknown HIVES Verified 03/15/21 14:13 [From BACTRIM] trimethoprim [From BACTRIM] Allergy Unknown HIVES Verified 03/15/21 14:13 oseltamivir [From Tamiflu] AdvReac Sensation Verified 09/29/21 11:20 of bugs crawling on skin. Assessment & Plan Assessment & Plan (1) MDD (major depressive disorder), recurrent severe, without psychosis: Status: Acute Code(s): F33.2 - Major depressive disorder, recurrent severe without psychotic features (2) PTSD (post-traumatic stress disorder): Status: Acute Code(s): F43.10 - Post-traumatic stress disorder, unspecified (3) Suicidal ideation: Status: Acute Code(s): R45.851 - Suicidal ideations Plan 36 yo non-binary individual, prefers they them pronouns, presents with active SI, SIBS, several plans to self-harm in the context of the anniversary of the loss of a child she planned to co-parent who was still born. Pt able to surrender a rope she made in the ER from clothing and agrees to one to one specialing to assist with management of her safety needs until she is able to manage with more independence. Pt reports an increase in sleep, decrease in functioning, unable to attend treatment activities, and constant thoughts of and dying-several plans for suicide including to head bang so severely she will fall asleep and never awaken. Plan pt on 1:1 for safety B12 supplement as levels are low TSH, FT4 One to One Special Increase Olanzpaine to 7.5 mg prn-pt plans to take this bid Full milieu involvement to process this anniversary of her loss 10/09/21 Continue current regime. 10/10 continue current regimen 10/10 continue current regimen 10/13/21 Continue current plan. 10/14/21 Continue current regime I spent minutes with the patient and/or on the patient floor today, greater than?50% of which was spent counseling/coordinating care. Patient educated on: therapeutic strategies Informed Consent: understands Reason for contiued inpatient stay Substantial Risk for: harm to self and rapid decompensation
[2021-10-14 21:01] VITALS: BP 118/80; PULSE 92; TEMP 36.2; O2SAT 96
[2021-10-14] MEDS: Melatonin 3 MG TABLET 9 MG PO (21:12)
[2021-10-14] MEDS: PRAZOSIN HCL 14 MG PO (21:13)
[2021-10-14] MEDS: traZODone HCL 100 MG TABLET 200 MG PO (21:14)
[2021-10-15 07:04] VITALS: BP 102/58; PULSE 104; RESP 18; TEMP 36.3; O2SAT 94
[2021-10-15] MEDS: Cholecalciferol (Vitamin D3) 25 MCG TABLET 50 MCG PO (08:15)
[2021-10-15] MEDS: Amphetamine Mixed Salts 20 MG TABLET PO (08:16)
[2021-10-15] MEDS: Fluticasone Propionate Nasal 16 GM SPRAY NOSTRIL-B (08:16)
[2021-10-15] MEDS: Docusate Sodium 100 MG CAPSULE PO ×2 (08:16→20:30)
[2021-10-15] MEDS: OLANZapine 7.5 MG TABLET PO ×3 (08:16→20:35)
[2021-10-15] MEDS: Lithium Carbonate ER 300 MG TABLET.ER 600 MG PO ×2 (08:16→20:27)
[2021-10-15] MEDS: Dry Mouth Spray 60 ML SPRAY 1 SPRAY MUCOUS MEM (08:16)
[2021-10-15] MEDS: Benztropine Mesylate 0.5 MG TABLET PO ×2 (08:16→20:29)
[2021-10-15] MEDS: ALPRAZolam 0.5 MG TABLET 1 MG PO ×3 (08:16→20:30)
[2021-10-15] MEDS: Thiamine HCL 100 MG TABLET PO (08:16)
[2021-10-15] MEDS: Nicotine 14 MG PATCH.TD24 TRANSDERMA (08:18)
[2021-10-15 11:08] VITALS: BMI 56.0
[2021-10-15] MEDS: Nicotine Polacrilex 2 MG GUM BUCCAL (16:12)
--- NOTE | 2021-10-15 18:47 | P.PNPSI_ITS ---
Subjective Subjective Date of Service: 10/15/21 Reason For Visit: Major depression, recurrent severe; PTSD Subjective Notes: Conditional Voluntary Healthcare Proxy: No Guardianship: No Medical Problems Affecting Mental Status: No Interim History: Remains on one to one. Suicidality and urges for self harm are intermittent, intense, not predictable. Pt unable to make an association with a precipitant. Moving forward with future planning and goal setting. Tolerating medication regime. Question of bilateral pedal edema, pt does not believe this to be the case, believes she has lucero lines from sandals that are making feet appear edematous. No pitting noted. Medication Compliance: Yes Side effects from medications: No Attending Groups: Yes Review of Systems Acute medical concerns: No Medical Review of Systems: unchanged Review of Systems Psychiatric: Reports anxiety, Reports depression, Reports difficulty concentrating, Reports hopelessness, Reports anhedonia and Reports suicidal ideation Mental Status Exam Mental Status Exam Patient Appearance: Appropriate Patient Orientation: Person, Place, Time and Situation Level of Consciousness: Alert Patient Behavior: Appropriate, Talkative, Cooperative and Good Eye Contact Mood Description: Depressed Affect Description: Flat Patient Cognition Impaired: No Ability to Follow Directions: Good Speech Pattern: Spontaneous Speech Memory Description: Intact Hallucinations: None Delusions: Not Present Perceptual Disturbances: Depersonalization and Derealization Thought Process: Intact, Distracted and Goal Oriented Thought Content: positive for Intact, positive for Circumstantial and positive for Suicidal Ideation Depressive Symptoms: Increased Anxiety, Thoughts of /Suicide, Low Self Esteem and Difficulty Concentrating Judgement: Fair Diagnostics Vital Signs (24Hr): Vital Signs - 24 hr 10/14/21 21:01 10/15/21 07:04 Temperature 97.1 F 97.3 F Pulse Rate 92 104 H Respiratory Rate 18 Blood Pressure 118/80 102/58 L Pulse Oximetry 96 94 Oxygen Delivery Method Room Air Room Air BMI result Body Mass Index 56.0 Labs Results: 10/05/21 17:52 10/05/21 17:52 Medications Medications Current Medications Acetaminophen (Acetaminophen 325 Mg Tablet) 650 mg PO Q6H PRN PRN Reason: Headache/Pain Mild Scale (1-3) Al Hydroxide/Mg Hydroxide (Magnesium Hydrox/Alum Hydrox 30 Ml Oral.Susp) 30 ml PO Q6H PRN PRN Reason: Heartburn/Nausea Alprazolam (Alprazolam 0.5 Mg Tablet) 1 mg PO QID PRN PRN Reason: anxiety Last Admin: 10/15/21 14:52 Dose: 1 mg Amphetamine/Dextroamphetamine (Amphetamine Mixed Salts 20 Mg Tablet) 20 mg PO DAILY [facility] Last Admin: 10/15/21 08:16 Dose: 20 mg Benztropine Mesylate (Benztropine Mesylate 0.5 Mg Tablet) 0.5 mg PO BID [facility] Last Admin: 10/15/21 08:16 Dose: 0.5 mg Docusate Sodium (Docusate Sodium 100 Mg Capsule) 100 mg PO BID [facility] Last Admin: 10/15/21 08:16 Dose: 100 mg Fluticasone Propionate (Fluticasone Propionate Nasal 16 Gm [place]) 1 - 2 spray NOSTRIL-B DAILY [facility] Last Admin: 10/15/21 08:16 Dose: 1 spray Haloperidol (Haloperidol 5 Mg Tablet) 10 mg PO BID PRN PRN Reason: si, agitation Last Admin: 10/13/21 14:07 Dose: 10 mg Hydroxyzine HCl (Hydroxyzine Hcl 25 Mg Tablet) 25 mg PO Q6H PRN PRN Reason: Anxiety Last Admin: 10/13/21 08:39 Dose: 25 mg [place] Carbonate ([place] Carbonate Er 300 Mg Tablet.Er) 600 mg PO BID [facility] Last Admin: 10/15/21 08:16 Dose: 600 mg Lorazepam (Lorazepam 1 Mg Tablet) 2 mg PO BID PRN PRN Reason: si, agitation Last Admin: 10/13/21 14:08 Dose: 2 mg Magnesium Hydroxide (Milk Of Magnesia 30 Ml Oral.Susp) 30 ml PO DAILY PRN PRN Reason: Constipation Last Admin: 10/13/21 11:55 Dose: 30 ml Melatonin (Melatonin 3 Mg Tablet) 9 mg PO BEDTIME [facility] Last Admin: 10/14/21 21:12 Dose: 9 mg Nicotine (Nicotine 14 Mg Patch.Td24) 14 mg TRANSDERMA DAILY [facility] Last Admin: 10/15/21 08:18 Dose: 14 mg Nicotine Polacrilex (Nicotine Polacrilex 2 Mg Gum) 2 mg BUCCAL Q2H PRN PRN Reason: nicotine withdrawal Last Admin: 10/15/21 16:12 Dose: 2 mg Pt Own Med ( Desvenlafaxine 100 Mg Tablet Extended Release 24 Hr) 100 mg PO DAILY [facility] Last Admin: 10/15/21 08:16 Dose: 100 mg Patient Own Medication (Bactine Max Cleansing [place] ) 2 sprays TOPICAL BID [facility] Last Admin: 10/15/21 08:19 Dose: Not Given Patient Own Medication (Bactine Hydrogel ) 1 applic TOPICAL BID [facility] Last Admin: 10/15/21 08:19 Dose: Not Given Olanzapine (Olanzapine 7.5 Mg Tablet) 7.5 mg PO TID PRN PRN Reason: Anxiety Last Admin: 10/15/21 14:20 Dose: 7.5 mg Prazosin HCl 10 mg/ Prazosin (HCl 4 mg) 14 mg PO BEDTIME [facility] Last Admin: 10/14/21 21:13 Dose: 14 mg Psyllium Hydrophilic Mucilloid (Psyllium Seed 3.4 Gm Powd.Pack) 3.4 gm PO BEDT JOSE [facility] Last Admin: 10/14/21 21:21 Dose: Not Given Saliva Substitute (Dry Mouth [place] 60 Ml [place]) 1 spray MUCOUS MEM Q2H PRN PRN Reason: Dry Mouth Last Admin: 10/15/21 08:16 Dose: 1 spray Thiamine HCl (Thiamine Hcl 100 Mg Tablet) 100 mg PO DAILY [facility] Last Admin: 10/15/21 08:16 Dose: 100 mg Trazodone HCl (Trazodone Hcl 100 Mg Tablet) 200 mg PO BEDTIME [facility] Last Admin: 10/14/21 21:14 Dose: 200 mg Vitamin D (Cholecalciferol (Vitamin D3) 25 Mcg Tablet) 50 mcg PO DAILY [facility] Last Admin: 10/15/21 08:15 Dose: 50 mcg Allergies Allergies Allergy/AdvReac Type Severity Reaction Status Date / Time Sulfa (Sulfonamide Allergy Unknown HIVES Verified 03/15/21 14:13 Antibiotics) [SULFA (SULFONAMIDE ANTIBIOTICS)] sulfamethoxazole Allergy Unknown HIVES Verified 03/15/21 14:13 [From BACTRIM] trimethoprim [From BACTRIM] Allergy Unknown HIVES Verified 03/15/21 14:13 oseltamivir [From Tamiflu] AdvReac Sensation Verified 09/29/21 11:20 of bugs crawling on skin. Assessment & Plan Assessment & Plan (1) MDD (major depressive disorder), recurrent severe, without psychosis: Status: Acute Code(s): F33.2 - Major depressive disorder, recurrent severe without psychotic features (2) PTSD (post-traumatic stress disorder): Status: Acute Code(s): F43.10 - Post-traumatic stress disorder, unspecified (3) Suicidal ideation: Status: Acute Code(s): R45.851 - Suicidal ideations Plan 36 yo non-binary individual, prefers they them pronouns, presents with active SI, SIBS, several plans to self-harm in the context of the anniversary of the loss of a child she planned to co-parent who was still born. Pt able to surrender a rope she made in the ER from clothing and agrees to one to one specialing to assist with management of her safety needs until she is able to manage with more independence. Pt reports an increase in sleep, decrease in functioning, unable to attend treatment activities, and constant thoughts of and dying-several plans for suicide including to head bang so severely she will fall asleep and never awaken. Plan pt on 1:1 for safety B12 supplement as levels are low TSH, FT4 One to One Special Increase Olanzpaine to 7.5 mg prn-pt plans to take this bid Full milieu involvement to process this anniversary of her loss 10/09/21 Continue current regime. 10/10 continue current regimen 10/10 continue current regimen 10/13/21 Continue current plan. 10/15/21 Continue current regime I spent minutes with the patient and/or on the patient floor today, greater than?50% of which was spent counseling/coordinating care. Patient educated on: therapeutic strategies Informed Consent: understands and further education needed Reason for contiued inpatient stay Substantial Risk for: harm to self and rapid decompensation
[2021-10-15] MEDS: Melatonin 3 MG TABLET 9 MG PO (20:25)
[2021-10-15] MEDS: traZODone HCL 100 MG TABLET 200 MG PO (20:26)
[2021-10-15 20:27] VITALS: BP 155/69; PULSE 102; TEMP 36.9
[2021-10-15] MEDS: PRAZOSIN HCL 14 MG PO (20:29)
[2021-10-16] MEDS: Amphetamine Mixed Salts 20 MG TABLET PO (08:02)
[2021-10-16] MEDS: Benztropine Mesylate 0.5 MG TABLET PO ×2 (08:02→21:08)
[2021-10-16] MEDS: Thiamine HCL 100 MG TABLET PO (08:02)
[2021-10-16] MEDS: Cholecalciferol (Vitamin D3) 25 MCG TABLET 50 MCG PO (08:02)
[2021-10-16] MEDS: Docusate Sodium 100 MG CAPSULE PO ×2 (08:02→21:10)
[2021-10-16] MEDS: ALPRAZolam 0.5 MG TABLET 1 MG PO ×2 (08:02→17:56)
[2021-10-16] MEDS: OLANZapine 7.5 MG TABLET PO ×2 (08:02→17:56)
[2021-10-16] MEDS: Lithium Carbonate ER 300 MG TABLET.ER 600 MG PO ×3 (08:02→21:16)
[2021-10-16] MEDS: Nicotine 14 MG PATCH.TD24 TRANSDERMA (08:04)
[2021-10-16] MEDS: Fluticasone Propionate Nasal 16 GM SPRAY NOSTRIL-B (08:47)
--- NOTE | 2021-10-16 13:55 | P.PNPSI_ITS ---
Subjective Subjective Date of Service: 10/16/21 Reason For Visit: Major depression, recurrent severe; PTSD Subjective Notes: Conditional Voluntary Healthcare Proxy: No Guardianship: No Medical Problems Affecting Mental Status: No Interim History: Pt acknowledges bilateral pedal edema with no pitting evident today. Will order compression stockings, albumin level. Denies chest pain, pulmonary sx, review of labs with no overt precipitant. States this does happen intermittently with increase in heat. Discussed concerns about finances. Rent will increase 04/04/22 and pt is not sure how to manage this increase, discussed some possible options. 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 Discussed evolution of her passion for children and ability to see beyond her loss and want to give of herself for others benefit. Medication Compliance: Yes Side effects from medications: No Attending Groups: Yes Review of Systems Acute medical concerns: No bilateral pedal edema Medical Review of Systems: unchanged Review of Systems Psychiatric: Reports anxiety, Reports depression, Reports difficulty concentrating, Reports hopelessness, Reports anhedonia and Reports suicidal ideation Mental Status Exam Mental Status Exam Patient Appearance: Appropriate Patient Orientation: Person, Place, Time and Situation Level of Consciousness: Alert Patient Behavior: Appropriate, Talkative, Cooperative and Good Eye Contact Mood Description: Depressed Affect Description: Flat Patient Cognition Impaired: No Ability to Follow Directions: Good Speech Pattern: Spontaneous Speech Memory Description: Intact Hallucinations: None Delusions: Not Present Perceptual Disturbances: Depersonalization and Derealization Thought Process: Intact, Distracted and Goal Oriented Thought Content: positive for Intact, positive for Circumstantial and positive for Suicidal Ideation Depressive Symptoms: Increased Anxiety, Thoughts of /Suicide, Low Self Esteem and Difficulty Concentrating Judgement: Fair Diagnostics Vital Signs (24Hr): Vital Signs - 24 hr 10/15/21 20:27 Temperature 98.4 F Pulse Rate 102 H Blood Pressure 155/69 H BMI result Body Mass Index 56.0 Labs Results: 10/05/21 17:52 10/05/21 17:52 Medications Medications Current Medications Acetaminophen (Acetaminophen 325 Mg Tablet) 650 mg PO Q6H PRN PRN Reason: Headache/Pain Mild Scale (1-3) Al Hydroxide/Mg Hydroxide (Magnesium Hydrox/Alum Hydrox 30 Ml Oral.Susp) 30 ml PO Q6H PRN PRN Reason: Heartburn/Nausea Alprazolam (Alprazolam 0.5 Mg Tablet) 1 mg PO QID PRN PRN Reason: anxiety Last Admin: 10/16/21 08:02 Dose: 1 mg Amphetamine/Dextroamphetamine (Amphetamine Mixed Salts 20 Mg Tablet) 20 mg PO DAILY [facility] [place] Last Admin: 10/16/21 08:02 Dose: 20 mg Benztropine Mesylate (Benztropine Mesylate 0.5 Mg Tablet) 0.5 mg PO BID [facility] [place] Last Admin: 10/16/21 08:02 Dose: 0.5 mg Docusate Sodium (Docusate Sodium 100 Mg Capsule) 100 mg PO BID [facility] Last Admin: 10/16/21 08:02 Dose: 100 mg Fluticasone Propionate (Fluticasone Propionate Nasal 16 Gm [place]) 1 - 2 spray NOSTRIL-B DAILY [facility] [place] Last Admin: 10/16/21 08:47 Dose: 1 spray Haloperidol (Haloperidol 5 Mg Tablet) 10 mg PO BID PRN PRN Reason: si, agitation Last Admin: 10/13/21 14:07 Dose: 10 mg Hydroxyzine HCl (Hydroxyzine Hcl 25 Mg Tablet) 25 mg PO Q6H PRN PRN Reason: Anxiety Last Admin: 10/13/21 08:39 Dose: 25 mg [place] Carbonate ([place] Carbonate Er 300 Mg Tablet.Er) 600 mg PO BID [facility] [place] Last Admin: 10/16/21 08:02 Dose: 600 mg Lorazepam (Lorazepam 1 Mg Tablet) 2 mg PO BID PRN PRN Reason: si, agitation Last Admin: 10/13/21 14:08 Dose: 2 mg Magnesium Hydroxide (Milk Of Magnesia 30 Ml Oral.Susp) 30 ml PO DAILY PRN PRN Reason: Constipation Last Admin: 10/13/21 11:55 Dose: 30 ml Melatonin (Melatonin 3 Mg Tablet) 9 mg PO BEDTIME [facility] [place] Last Admin: 10/15/21 20:25 Dose: 9 mg Nicotine (Nicotine 14 Mg Patch.Td24) 14 mg TRANSDERMA DAILY [facility] [place] Last Admin: 10/16/21 08:04 Dose: 14 mg Nicotine Polacrilex (Nicotine Polacrilex 2 Mg Gum) 2 mg BUCCAL Q2H PRN PRN Reason: nicotine withdrawal Last Admin: 10/15/21 16:12 Dose: 2 mg Pt Own Med ( Desvenlafaxine 100 Mg Tablet Extended Release 24 Hr) 100 mg PO DAILY [facility] [place] Last Admin: 10/16/21 08:02 Dose: 100 mg Patient Own Medication (Bactine Max Cleansing [place] ) 2 sprays TOPICAL BID [facility] Last Admin: 10/16/21 08:46 Dose: Not Given Patient Own Medication (Bactine Hydrogel ) 1 applic TOPICAL BID [facility] Last Admin: 10/16/21 08:46 Dose: Not Given Olanzapine (Olanzapine 7.5 Mg Tablet) 7.5 mg PO TID PRN PRN Reason: Anxiety Last Admin: 10/16/21 08:02 Dose: 7.5 mg Prazosin HCl 10 mg/ Prazosin (HCl 4 mg) 14 mg PO BEDTIME [facility] [place] Last Admin: 10/15/21 20:29 Dose: 14 mg Psyllium Hydrophilic Mucilloid (Psyllium Seed 3.4 Gm Powd.Pack) 3.4 gm PO BEDTIME [facility] [place] Last Admin: 10/15/21 20:37 Dose: Not Given Saliva Substitute (Dry Mouth [place] 60 Ml [place]) 1 spray MUCOUS MEM Q2H PRN PRN Reason: Dry Mouth Last Admin: 10/15/21 08:16 Dose: 1 spray Thiamine HCl (Thiamine Hcl 100 Mg Tablet) 100 mg PO DAILY [facility] [place] Last Admin: 10/16/21 08:02 Dose: 100 mg Trazodone HCl (Trazodone Hcl 100 Mg Tablet) 200 mg PO BEDTIME [facility] [place] Last Admin: 10/15/21 20:26 Dose: 200 mg Vitamin D (Cholecalciferol (Vitamin D3) 25 Mcg Tablet) 50 mcg PO DAILY [facility] Last Admin: 10/16/21 08:02 Dose: 50 mcg Allergies Allergies Allergy/AdvReac Type Severity Reaction Status Date / Time Sulfa (Sulfonamide Allergy Unknown HIVES Verified 03/15/21 14:13 Antibiotics) [SULFA (SULFONAMIDE ANTIBIOTICS)] sulfamethoxazole Allergy Unknown HIVES Verified 03/15/21 14:13 [From BACTRIM] trimethoprim [From BACTRIM] Allergy Unknown HIVES Verified 03/15/21 14:13 oseltamivir [From Tamiflu] AdvReac Sensation Verified 09/29/21 11:20 of bugs crawling on skin. Assessment & Plan Assessment & Plan (1) MDD (major depressive disorder), recurrent severe, without psychosis: Status: Acute Code(s): F33.2 - Major depressive disorder, recurrent severe without psychotic features (2) PTSD (post-traumatic stress disorder): Status: Acute Code(s): F43.10 - Post-traumatic stress disorder, unspecified (3) Suicidal ideation: Status: Acute Code(s): R45.851 - Suicidal ideations Plan 36 yo non-binary individual, prefers they them pronouns, presents with active SI, SIBS, several plans to self-harm in the context of the anniversary of the loss of a child she planned to co-parent who was still born. Pt able to surrender a rope she made in the ER from clothing and agrees to one to one specialing to assist with management of her safety needs until she is able to manage with more independence. Pt reports an increase in sleep, decrease in functioning, unable to attend treatment activities, and constant thoughts of and dying-several plans for suicide including to head bang so severely she will fall asleep and never awaken. Plan pt on 1:1 for safety B12 supplement as levels are low TSH, FT4 One to One Special Increase Olanzpaine to 7.5 mg prn-pt plans to take this bid Full milieu involvement to process this anniversary of her loss 10/09/21 Continue current regime. 10/10 continue current regimen 10/10 continue current regimen 10/13/21 Continue current plan. 10/14/21 Continue current regime 10/16/21 Continue current regime Bilateral pedal edema-compression socks, encourage elevation, albumin level Change metamucil to a.m. per pt request Vit B12 daily (cyanocobalamin) I spent minutes with the patient and/or on the patient floor today, greater than?50% of which was spent counseling/coordinating care. Patient educated on: medication risk/benefits, therapeutic strategies and medical condition Informed Consent: understands and further education needed Reason for contiued inpatient stay Substantial Risk for: harm to self, inability to function and rapid decompensa tion
[2021-10-16] MEDS: LORazepam 1 MG TABLET 2 MG PO ×2 (14:00→21:11)
[2021-10-16] MEDS: HaloperidoL 5 MG TABLET 10 MG PO ×2 (14:00→21:10)
[2021-10-16 20:55] VITALS: BP 130/70; PULSE 97; TEMP 36.6
[2021-10-16] MEDS: PRAZOSIN HCL 14 MG PO (21:06)
[2021-10-16] MEDS: traZODone HCL 100 MG TABLET 200 MG PO (21:08)
[2021-10-16] MEDS: Melatonin 3 MG TABLET 9 MG PO (21:09)
[2021-10-17 06:00] VITALS: BP 132/62; PULSE 91; TEMP 36.1; O2SAT 95
[2021-10-17 07:33] LABS: Albumin Level 3.7 g/dL (3.5-5.0)
[2021-10-17] MEDS: Nicotine 14 MG PATCH.TD24 TRANSDERMA (08:45)
[2021-10-17] MEDS: Fluticasone Propionate Nasal 16 GM SPRAY NOSTRIL-B (08:46)
[2021-10-17] MEDS: Dry Mouth Spray 60 ML SPRAY 1 SPRAY MUCOUS MEM (08:46)
[2021-10-17] MEDS: Benztropine Mesylate 0.5 MG TABLET PO ×2 (08:47→19:21)
[2021-10-17] MEDS: Cholecalciferol (Vitamin D3) 25 MCG TABLET 50 MCG PO (08:47)
[2021-10-17] MEDS: Docusate Sodium 100 MG CAPSULE PO ×2 (08:47→19:22)
[2021-10-17] MEDS: Amphetamine Mixed Salts 20 MG TABLET PO (08:47)
[2021-10-17] MEDS: Thiamine HCL 100 MG TABLET PO (08:47)
[2021-10-17] MEDS: Cyanocobalamin (Vitamin B-12) 100 MCG TABLET PO (08:48)
[2021-10-17] MEDS: Lithium Carbonate ER 300 MG TABLET.ER 600 MG PO ×2 (08:48→19:21)
[2021-10-17] MEDS: OLANZapine 7.5 MG TABLET PO ×2 (09:08→20:05)
[2021-10-17] MEDS: ALPRAZolam 0.5 MG TABLET 1 MG PO ×2 (09:08→20:05)
--- NOTE | 2021-10-17 13:57 | HO.PSYCHPN ---
Subjective Subjective Date of Service: 10/17/21 Reason For Visit: Major depression, recurrent severe; PTSD Interim History: Patient reports that she is feeling a little better and that the urges to self-harm are lessening. She says she still is not sure yet and she is having trouble trusting herself to not self-harm. However she feels like things are headed in the right direction. Mental Status Exam Mental Status Exam Patient Appearance: Appropriate Patient Orientation: Person, Place, Time and Situation Level of Consciousness: Alert Patient Behavior: Appropriate, Talkative, Cooperative and Good Eye Contact Mood Description: Depressed Affect Description: Flat Patient Cognition Impaired: No Ability to Follow Directions: Good Speech Pattern: Spontaneous Speech Memory Description: Intact Hallucinations: None Delusions: Not Present Perceptual Disturbances: Depersonalization and Derealization Thought Process: Intact, Distracted and Goal Oriented Thought Content: positive for Intact, positive for Circumstantial and positive for Suicidal Ideation Depressive Symptoms: Increased Anxiety, Thoughts of /Suicide, Low Self Esteem and Difficulty Concentrating Judgement: Fair Diagnostics Vital Signs (24Hr): Vital Signs - 24 hr 10/16/21 20:55 10/17/21 06:00 Temperature 97.8 F 97 F Pulse Rate 97 91 Blood Pressure 130/70 132/62 Pulse Oximetry 95 Oxygen Delivery Method Room Air BMI result Body Mass Index 56.0 Labs Results: 10/05/21 17:52 10/05/21 17:52 Labs: Laboratory Results - last 48 hr 10/17/21 06:50 Albumin 3.7 Medications Medications Current Medications Acetaminophen (Acetaminophen 325 Mg Tablet) 650 mg PO Q6H PRN PRN Reason: Headache/Pain Mild Scale (1-3) Al Hydroxide/Mg Hydroxide (Magnesium Hydrox/Alum Hydrox 30 Ml Oral.Susp) 30 ml PO Q6H PRN PRN Reason: Heartburn/Nausea Alprazolam (Alprazolam 0.5 Mg Tablet) 1 mg PO QID PRN PRN Reason: anxiety Last Admin: 10/17/21 09:08 Dose: 1 mg Amphetamine/Dextroamphetamine (Amphetamine Mixed Salts 20 Mg Tablet) 20 mg PO DAILY [facility] Last Admin: 10/17/21 08:47 Dose: 20 mg Benztropine Mesylate (Benztropine Mesylate 0.5 Mg Tablet) 0.5 mg PO BID [facility] Last Admin: 10/17/21 08:47 Dose: 0.5 mg Cyanocobalamin (Cyanocobalamin (Vitamin B-12) 100 Mcg Tablet) 100 mcg PO DAILY [facility] Last Admin: 10/17/21 08:48 Dose: 100 mcg Docusate Sodium (Docusate Sodium 100 Mg Capsule) 100 mg PO BID [facility] Last Admin: 10/17/21 08:47 Dose: 100 mg Fluticasone Propionate (Fluticasone Propionate Nasal 16 Gm [place]) 1 - 2 spray NOSTRIL-B DAILY [facility] Last Admin: 10/17/21 08:46 Dose: 1 spray Haloperidol (Haloperidol 5 Mg Tablet) 10 mg PO BID PRN PRN Reason: si, agitation Last Admin: 10/16/21 21:10 Dose: 10 mg Hydroxyzine HCl (Hydroxyzine Hcl 25 Mg Tablet) 25 mg PO Q6H PRN PRN Reason: Anxiety Last Admin: 10/13/21 08:39 Dose: 25 mg [place] Carbonate ([place] Carbonate Er 300 Mg Tablet.Er) 600 mg PO BID [facility] Last Admin: 10/17/21 08:48 Dose: 600 mg Lorazepam (Lorazepam 1 Mg Tablet) 2 mg PO BID PRN PRN Reason: si, agitation Last Admin: 10/16/21 21:11 Dose: 2 mg Magnesium Hydroxide (Milk Of Magnesia 30 Ml Oral.Susp) 30 ml PO DAILY PRN PRN Reason: Constipation Last Admin: 10/13/21 11:55 Dose: 30 ml Melatonin (Melatonin 3 Mg Tablet) 9 mg PO BEDTIME [facility] Last Admin: 10/16/21 21:09 Dose: 9 mg Nicotine (Nicotine 14 Mg Patch.Td24) 14 mg TRANSDERMA DAILY [facility] Last Admin: 10/17/21 08:45 Dose: 14 mg Nicotine Polacrilex (Nicotine Polacrilex 2 Mg Gum) 2 mg BUCCAL Q2H PRN PRN Reason: nicotine withdrawal Last Admin: 10/15/21 16:12 Dose: 2 mg Pt Own Med ( Desvenlafaxine 100 Mg Tablet Extended Release 24 Hr) 100 mg PO DAILY [facility] Last Admin: 10/17/21 08:46 Dose: 100 mg Patient Own Medication (Bactine Max Cleansing [place] ) 2 sprays TOPICAL BID [facility] Last Admin: 10/17/21 08:51 Dose: Not Given Patient Own Medication (Bactine Hydrogel ) 1 applic TOPICAL BID [facility] Last Admin: 10/17/21 08:48 Dose: Not Given Olanzapine (Olanzapine 7.5 Mg Tablet) 7.5 mg PO TID PRN PRN Reason: Anxiety Last Admin: 10/17/21 09:08 Dose: 7.5 mg Prazosin HCl 10 mg/ Prazosin (HCl 4 mg) 14 mg PO BEDTIME [facility] Last Admin: 10/16/21 21:06 Dose: 14 mg Psyllium Hydrophilic Mucilloid (Psyllium Seed 3.4 Gm Powd.Pack) 3.4 gm PO BEDTIME [facility] Last Admin: 10/16/21 21:44 Dose: Not Given Saliva Substitute (Dry Mouth [place] 60 Ml [place]) 1 spray MUCOUS MEM Q2H PRN PRN Reason: Dry Mouth Last Admin: 10/17/21 08:46 Dose: 1 spray Thiamine HCl (Thiamine Hcl 100 Mg Tablet) 100 mg PO DAILY [facility] Last Admin: 10/17/21 08:47 Dose: 100 mg Trazodone HCl (Trazodone Hcl 100 Mg Tablet) 200 mg PO BEDTIME [facility] Last Admin: 10/16/21 21:08 Dose: 200 mg Vitamin D (Cholecalciferol (Vitamin D3) 25 Mcg Tablet) 50 mcg PO DAILY [facility] Last Admin: 10/17/21 08:47 Dose: 50 mcg Allergies Allergies Allergy/AdvReac Type Severity Reaction Status Date / Time Sulfa (Sulfonamide Allergy Unknown HIVES Verified 03/15/21 14:13 Antibiotics) [SULFA (SULFONAMIDE ANTIBIOTICS)] sulfamethoxazole Allergy Unknown HIVES Verified 03/15/21 14:13 [From BACTRIM] trimethoprim [From BACTRIM] Allergy Unknown HIVES Verified 03/15/21 14:13 oseltamivir [From Tamiflu] AdvReac Sensation Verified 09/29/21 11:20 of bugs crawling on skin. Assessment & Plan Assessment & Plan (1) MDD (major depressive disorder), recurrent severe, without psychosis: Status: Acute Code(s): F33.2 - Major depressive disorder, recurrent severe without psychotic features (2) PTSD (post-traumatic stress disorder): Status: Acute Code(s): F43.10 - Post-traumatic stress disorder, unspecified (3) Suicidal ideation: Status: Acute Code(s): R45.851 - Suicidal ideations Plan 36 yo non-binary individual, prefers they them pronouns, presents with active SI, SIBS, several plans to self-harm in the context of the anniversary of the loss of a child she planned to co-parent who was still born. Pt able to surrender a rope she made in the ER from clothing and agrees to one to one specialing to assist with management of her safety needs until she is able to manage with more independence. Pt reports an increase in sleep, decrease in functioning, unable to attend treatment activities, and constant thoughts of and dying-several plans for suicide including to head bang so severely she will fall asleep and never awaken. Plan pt on 1:1 for safety B12 supplement as levels are low TSH, FT4 One to One Special Increase Olanzpaine to 7.5 mg prn-pt plans to take this bid Full milieu involvement to process this anniversary of her loss 10/09/21 Continue current regime. 10/10 continue current regimen 10/10 continue current regimen 10/13/21 Continue current plan. 10/14/21 Continue current regime 10/16/21 Continue current regime Bilateral pedal edema-compression socks, encourage elevation, albumin level Change metamucil to a.m. per pt request Vit B12 daily (cyanocobalamin) 10/17/21 feeling a little better and less urges to self-harm; needs to remain on one-to-one though since she is not quite ready for safety I spent minutes with the patient and/or on the patient floor today, greater than?50% of which was spent counseling/coordinating care. Patient educated on: therapeutic strategies Informed Consent: understands Reason for contiued inpatient stay Substantial Risk for: rapid decompensation
[2021-10-17 18:00] VITALS: BP 124/78; PULSE 98; RESP 16; TEMP 36.6; O2SAT 99
[2021-10-17] MEDS: PRAZOSIN HCL 14 MG PO (19:18)
[2021-10-17] MEDS: Melatonin 3 MG TABLET 9 MG PO (19:19)
[2021-10-17] MEDS: traZODone HCL 100 MG TABLET 200 MG PO (19:23)
[2021-10-18 06:00] VITALS: BP 124/66; PULSE 91; TEMP 36.7; O2SAT 95
[2021-10-18] MEDS: Benztropine Mesylate 0.5 MG TABLET PO ×2 (08:40→21:19)
[2021-10-18] MEDS: Cyanocobalamin (Vitamin B-12) 100 MCG TABLET PO (08:40)
[2021-10-18] MEDS: Docusate Sodium 100 MG CAPSULE PO ×2 (08:40→21:22)
[2021-10-18] MEDS: Thiamine HCL 100 MG TABLET PO (08:40)
[2021-10-18] MEDS: Cholecalciferol (Vitamin D3) 25 MCG TABLET 50 MCG PO (08:40)
[2021-10-18] MEDS: Lithium Carbonate ER 300 MG TABLET.ER 600 MG PO ×2 (08:40→21:23)
[2021-10-18] MEDS: Amphetamine Mixed Salts 20 MG TABLET PO (08:40)
[2021-10-18] MEDS: Dry Mouth Spray 60 ML SPRAY 1 SPRAY MUCOUS MEM (08:41)
[2021-10-18] MEDS: Fluticasone Propionate Nasal 16 GM SPRAY NOSTRIL-B (08:41)
[2021-10-18] MEDS: OLANZapine 7.5 MG TABLET PO ×3 (08:47→21:19)
[2021-10-18] MEDS: ALPRAZolam 0.5 MG TABLET 1 MG PO ×3 (08:47→21:17)
[2021-10-18] MEDS: Nicotine 14 MG PATCH.TD24 TRANSDERMA (09:22)
--- NOTE | 2021-10-18 18:04 | HO.PSYCHPN ---
Subjective Subjective Date of Service: 10/18/21 Reason For Visit: Major depression, recurrent severe; PTSD Interim History: Patient a little brighter affect and more warmly engaged with medical underwriter. Able to smile and laugh a little. Patient says getting close to feeling that patient can come off one-to-one and be safe. Still would like some more time to tell and does doubt self. Thinks that will be ready very soon but wants to discuss it with aunt's and walk 0 when she returns. Mental Status Exam Mental Status Exam Patient Appearance: Appropriate Patient Orientation: Person, Place, Time and Situation Level of Consciousness: Alert Patient Behavior: Appropriate, Talkative, Cooperative and Good Eye Contact Mood Description: Depressed Affect Description: Flat Patient Cognition Impaired: No Ability to Follow Directions: Good Speech Pattern: Spontaneous Speech Memory Description: Intact Hallucinations: None Delusions: Not Present Perceptual Disturbances: Depersonalization and Derealization Thought Process: Intact, Distracted and Goal Oriented Thought Content: positive for Intact, positive for Circumstantial and positive for Suicidal Ideation Depressive Symptoms: Increased Anxiety, Thoughts of /Suicide, Low Self Esteem and Difficulty Concentrating Judgement: Fair Diagnostics Vital Signs (24Hr): Vital Signs - 24 hr 10/18/21 06:00 Temperature 98.0 F Pulse Rate 91 Blood Pressure 124/66 Pulse Oximetry 95 Oxygen Delivery Method Room Air BMI result Body Mass Index 56.0 Labs Results: 10/05/21 17:52 10/05/21 17:52 Labs: Laboratory Results - last 48 hr 10/17/21 06:50 Albumin 3.7 Medications Medications Current Medications Acetaminophen (Acetaminophen 325 Mg Tablet) 650 mg PO Q6H PRN PRN Reason: Headache/Pain Mild Scale (1-3) Al Hydroxide/Mg Hydroxide (Magnesium Hydrox/Alum Hydrox 30 Ml Oral.Susp) 30 ml PO Q6H PRN PRN Reason: Heartburn/Nausea Alprazolam (Alprazolam 0.5 Mg Tablet) 1 mg PO QID PRN PRN Reason: anxiety Last Admin: 10/18/21 14:06 Dose: 1 mg Amphetamine/Dextroamphetamine (Amphetamine Mixed Salts 20 Mg Tablet) 20 mg PO DAILY [facility] Last Admin: 10/18/21 08:40 Dose: 20 mg Benztropine Mesylate (Benztropine Mesylate 0.5 Mg Tablet) 0.5 mg PO BID [facility] Last Admin: 10/18/21 08:40 Dose: 0.5 mg Cyanocobalamin (Cyanocobalamin (Vitamin B-12) 100 Mcg Tablet) 100 mcg PO DAILY [facility] Last Admin: 10/18/21 08:40 Dose: 100 mcg Docusate Sodium (Docusate Sodium 100 Mg Capsule) 100 mg PO BID [facility] Last Admin: 10/18/21 08:40 Dose: 100 mg Fluticasone Propionate (Fluticasone Propionate Nasal 16 Gm [place]) 1 - 2 spray NOSTRIL-B DAILY [facility] Last Admin: 10/18/21 08:41 Dose: 1 spray Haloperidol (Haloperidol 5 Mg Tablet) 10 mg PO BID PRN PRN Reason: si, agitation Last Admin: 10/16/21 21:10 Dose: 10 mg Hydroxyzine HCl (Hydroxyzine Hcl 25 Mg Tablet) 25 mg PO Q6H PRN PRN Reason: Anxiety Last Admin: 10/13/21 08:39 Dose: 25 mg [place] Carbonate ([place] Carbonate Er 300 Mg Tablet.Er) 600 mg PO BID [facility] Last Admin: 10/18/21 08:40 Dose: 600 mg Magnesium Hydroxide (Milk Of Magnesia 30 Ml Oral.Susp) 30 ml PO DAILY PRN PRN Reason: Constipation Last Admin: 10/13/21 11:55 Dose: 30 ml Melatonin (Melatonin 3 Mg Tablet) 9 mg PO BEDTIME [facility] Last Admin: 10/17/21 19:19 Dose: 9 mg Nicotine (Nicotine 14 Mg Patch.Td24) 14 mg TRANSDERMA DAILY [facility] Last Admin: 10/18/21 09:22 Dose: 14 mg Nicotine Polacrilex (Nicotine Polacrilex 2 Mg Gum) 2 mg BUCCAL Q2H PRN PRN Reason: nicotine withdrawal Last Admin: 10/15/21 16:12 Dose: 2 mg Pt Own Med ( Desvenlafaxine 100 Mg Tablet Extended Release 24 Hr) 100 mg PO DAILY [facility] Last Admin: 10/18/21 08:41 Dose: 100 mg Patient Own Medication (Bactine Max Cleansing [place] ) 2 sprays TOPICAL BID [facility] Last Admin: 10/18/21 08:49 Dose: Not Given Patient Own Medication (Bactine Hydrogel ) 1 applic TOPICAL BID [facility] Last Admin: 10/18/21 12:20 Dose: Not Given Olanzapine (Olanzapine 7.5 Mg Tablet) 7.5 mg PO TID PRN PRN Reason: Anxiety Last Admin: 10/18/21 14:06 Dose: 7.5 mg Prazosin HCl 10 mg/ Prazosin (HCl 4 mg) 14 mg PO BEDTIME [facility] Last Admin: 10/17/21 19:18 Dose: 14 mg Psyllium Hydrophilic Mucilloid (Psyllium Seed 3.4 Gm Powd.Pack) 3.4 gm PO DAILY [facility] Saliva Substitute (Dry Mouth [place] 60 Ml [place]) 1 spray MUCOUS MEM Q2H PRN PRN Reason: Dry Mouth Last Admin: 10/18/21 08:41 Dose: 1 spray Thiamine HCl (Thiamine Hcl 100 Mg Tablet) 100 mg PO DAILY [facility] Last Admin: 10/18/21 08:40 Dose: 100 mg Trazodone HCl (Trazodone Hcl 100 Mg Tablet) 200 mg PO BEDTIME [facility] Last Admin: 10/17/21 19:23 Dose: 200 mg Vitamin D (Cholecalciferol (Vitamin D3) 25 Mcg Tablet) 50 mcg PO DAILY [facility] Last Admin: 10/18/21 08:40 Dose: 50 mcg Allergies Allergies Allergy/AdvReac Type Severity Reaction Status Date / Time Sulfa (Sulfonamide Allergy Unknown [facility] Verified 03/15/21 14:13 Antibiotics) [SULFA (SULFONAMIDE ANTIBIOTICS)] sulfamethoxazole Allergy Unknown HIVES Verified 03/15/21 14:13 [From BACTRIM] trimethoprim [From BACTRIM] Allergy Unknown HIVES Verified 03/15/21 14:13 oseltamivir [From Tamiflu] AdvReac Sensation Verified 09/29/21 11:20 of bugs crawling on skin. Assessment & Plan Assessment & Plan (1) MDD (major depressive disorder), recurrent severe, without psychosis: Status: Acute Code(s): F33.2 - Major depressive disorder, recurrent severe without psychotic features (2) PTSD (post-traumatic stress disorder): Status: Acute Code(s): F43.10 - Post-traumatic stress disorder, unspecified (3) Suicidal ideation: Status: Acute Code(s): R45.851 - Suicidal ideations Plan 36 yo non-binary individual, prefers they them pronouns, presents with active SI, SIBS, several plans to self-harm in the context of the anniversary of the loss of a child she planned to co-parent who was still born. Pt able to surrender a rope she made in the ER from clothing and agrees to one to one specialing to assist with management of her safety needs until she is able to manage with more independence. Pt reports an increase in sleep, decrease in functioning, unable to attend treatment activities, and constant thoughts of and dying-several plans for suicide including to head bang so severely she will fall asleep and never awaken. Plan pt on 1:1 for safety B12 supplement as levels are low TSH, FT4 One to One Special Increase Olanzpaine to 7.5 mg prn-pt plans to take this bid Full milieu involvement to process this anniversary of her loss 10/09/21 Continue current regime. 10/10 continue current regimen 10/10 continue current regimen 10/13/21 Continue current plan. 10/14/21 Continue current regime 10/16/21 Continue current regime Bilateral pedal edema-compression socks, encourage elevation, albumin level Change metamucil to a.m. per pt request Vit B12 daily (cyanocobalamin) 10/17/21 feeling a little better and less urges to self-harm; needs to remain on one-to-one though since she is not quite ready for safety 10/18/21 continues to feel closer towards safety and no longer needing a one-to-one; however wants to discuss this with Mildred Albrecht before coming off I spent minutes with the patient and/or on the patient floor today, greater than?50% of which was spent counseling/coordinating care. Patient educated on: diagnosis and therapeutic strategies Informed Consent: understands Reason for contiued inpatient stay Substantial Risk for: harm to self and rapid decompensation
[2021-10-18 21:10] VITALS: BP 136/74; PULSE 91; TEMP 36.6; O2SAT 96
[2021-10-18] MEDS: PRAZOSIN HCL 14 MG PO (21:19)
[2021-10-18] MEDS: Melatonin 3 MG TABLET 9 MG PO (21:21)
[2021-10-18] MEDS: traZODone HCL 100 MG TABLET 200 MG PO (21:22)
[2021-10-19 06:00] VITALS: BP 126/72; PULSE 77; RESP 16; TEMP 36.5; O2SAT 96
[2021-10-19] MEDS: Benztropine Mesylate 0.5 MG TABLET PO ×2 (08:51→21:08)
[2021-10-19] MEDS: ALPRAZolam 0.5 MG TABLET 1 MG PO ×3 (08:51→21:07)
[2021-10-19] MEDS: Amphetamine Mixed Salts 20 MG TABLET PO (08:51)
[2021-10-19] MEDS: Cholecalciferol (Vitamin D3) 25 MCG TABLET 50 MCG PO (08:51)
[2021-10-19] MEDS: OLANZapine 7.5 MG TABLET PO ×2 (08:51→15:13)
[2021-10-19] MEDS: Docusate Sodium 100 MG CAPSULE PO ×2 (08:51→21:08)
[2021-10-19] MEDS: Lithium Carbonate ER 300 MG TABLET.ER 600 MG PO ×2 (08:51→21:08)
[2021-10-19] MEDS: Thiamine HCL 100 MG TABLET PO (08:52)
[2021-10-19] MEDS: Cyanocobalamin (Vitamin B-12) 100 MCG TABLET PO (08:52)
[2021-10-19] MEDS: Nicotine 14 MG PATCH.TD24 TRANSDERMA (08:52)
[2021-10-19] MEDS: Dry Mouth Spray 60 ML SPRAY 1 SPRAY MUCOUS MEM (09:00)
[2021-10-19] MEDS: Fluticasone Propionate Nasal 16 GM SPRAY NOSTRIL-B (09:00)
--- NOTE | 2021-10-19 13:15 | HO.PSYCHPN ---
Subjective Subjective Date of Service: 10/19/21 Reason For Visit: Major depression, recurrent severe; PTSD Subjective Notes: Conditional Voluntary Healthcare Proxy: No Guardianship: No Medical Problems Affecting Mental Status: No Interim History: Sandi reports a stable weekend. She states she is ready to trial stopping one to one and moving to five minute checks. She states she is also considering asking for discharge by the end of the week. I don't want to lie and tell you I have no urges to harm myself, but they seem more distant, able to manage, and I will be able to ask for help if I am feeling unsafe before I self harm. Discussed with Sandi who is reporting more overall relief from the intensity of emotion she has been experiencing. Reports adequate sleep, intake. Medication Compliance: Yes Side effects from medications: Yes (possibly, pedal edema, bilateral) Attending Groups: Yes Review of Systems Bilateral pedal edema, using TEDS which she reports are helpful, effective. Albumin 3.7 Medical Review of Systems: unchanged Review of Systems Cardiovascular: Reports pedal edema Psychiatric: Reports anxiety, Reports depression and Reports suicidal ideation (denies today) Mental Status Exam Mental Status Exam Patient Appearance: Appropriate Patient Orientation: Person, Place, Time and Situation Level of Consciousness: Alert Patient Behavior: Appropriate, Talkative, Cooperative and Good Eye Contact Mood Description: Flat Affect Description: Flat Patient Cognition Impaired: No Ability to Follow Directions: Good Speech Pattern: Spontaneous Speech Memory Description: Intact Hallucinations: None Delusions: Not Present Perceptual Disturbances: Depersonalization and Derealization Thought Process: Intact and Goal Oriented Thought Content: positive for Intact, positive for Goal Oriented and positive for Suicidal Ideation (denies today) Depressive Symptoms: Thoughts of /Suicide (denies) Judgement: Good Diagnostics Vital Signs (24Hr): Vital Signs - 24 hr 10/18/21 21:10 10/19/21 06:00 Temperature 97.8 F 97.7 F Pulse Rate 91 77 Respiratory Rate 16 Blood Pressure 136/74 126/72 Pulse Oximetry 96 96 Oxygen Delivery Method Room Air BMI result Body Mass Index 56.0 Labs Results: 10/05/21 17:52 10/05/21 17:52 Medications Medications Current Medications Acetaminophen (Acetaminophen 325 Mg Tablet) 650 mg PO Q6H PRN PRN Reason: Headache/Pain Mild Scale (1-3) Al Hydroxide/Mg Hydroxide (Magnesium Hydrox/Alum Hydrox 30 Ml Oral.Susp) 30 ml PO Q6H PRN PRN Reason: Heartburn/Nausea Alprazolam (Alprazolam 0.5 Mg Tablet) 1 mg PO QID PRN PRN Reason: anxiety Last Admin: 10/19/21 08:51 Dose: 1 mg Amphetamine/Dextroamphetamine (Amphetamine Mixed Salts 20 Mg Tablet) 20 mg PO DAILY [facility] Last Admin: 10/19/21 08:51 Dose: 20 mg Benztropine Mesylate (Benztropine Mesylate 0.5 Mg Tablet) 0.5 mg PO BID [facility] Last Admin: 10/19/21 08:51 Dose: 0.5 mg Cyanocobalamin (Cyanocobalamin (Vitamin B-12) 100 Mcg Tablet) 100 mcg PO DAILY [facility] Last Admin: 10/19/21 08:52 Dose: 100 mcg Docusate Sodium (Docusate Sodium 100 Mg Capsule) 100 mg PO BID [facility] Last Admin: 10/19/21 08:51 Dose: 100 mg Fluticasone Propionate (Fluticasone Propionate Nasal 16 Gm [place]) 1 - 2 spray NOSTRIL-B DAILY [facility] Last Admin: 10/19/21 09:00 Dose: 1 spray Haloperidol (Haloperidol 5 Mg Tablet) 10 mg PO BID PRN PRN Reason: si, agitation Last Admin: 10/16/21 21:10 Dose: 10 mg Hydroxyzine HCl (Hydroxyzine Hcl 25 Mg Tablet) 25 mg PO Q6H PRN PRN Reason: Anxiety Last Admin: 10/13/21 08:39 Dose: 25 mg [place] Carbonate ([place] Carbonate Er 300 Mg Tablet.Er) 600 mg PO BID [facility] Last Admin: 10/19/21 08:51 Dose: 600 mg Magnesium Hydroxide (Milk Of Magnesia 30 Ml Oral.Susp) 30 ml PO DAILY PRN PRN Reason: Constipation Last Admin: 10/13/21 11:55 Dose: 30 ml Melatonin (Melatonin 3 Mg Tablet) 9 mg PO BEDTIME [facility] Last Admin: 10/18/21 21:21 Dose: 9 mg Nicotine (Nicotine 14 Mg Patch.Td24) 14 mg TRANSDERMA DAILY [facility] Last Admin: 10/19/21 08:52 Dose: 14 mg Nicotine Polacrilex (Nicotine Polacrilex 2 Mg Gum) 2 mg BUCCAL Q2H PRN PRN Reason: nicotine withdrawal Last Admin: 10/15/21 16:12 Dose: 2 mg Pt Own Med ( Desvenlafaxine 100 Mg Tablet Extended Release 24 Hr) 100 mg PO DAILY [facility] Last Admin: 10/19/21 09:00 Dose: 100 mg Patient Own Medication (Bactine Max Cleansing [place] ) 2 sprays TOPICAL BID [facility] Last Admin: 10/19/21 09:57 Dose: Not Given Patient Own Medication (Bactine Hydrogel ) 1 applic TOPICAL BID [facility] Last Admin: 10/19/21 09:57 Dose: Not Given Olanzapine (Olanzapine 7.5 Mg Tablet) 7.5 mg PO TID PRN PRN Reason: Anxiety Last Admin: 10/19/21 08:51 Dose: 7.5 mg Prazosin HCl 10 mg/ Prazosin (HCl 4 mg) 14 mg PO BEDTIME [facility] Last Admin: 10/18/21 21:19 Dose: 14 mg Psyllium Hydrophilic Mucilloid (Psyllium Seed 3.4 Gm Powd.Pack) 3.4 gm PO DAILY [facility] Last Admin: 10/19/21 08:52 Dose: 3.4 gm Saliva Substitute (Dry Mouth [place] 60 Ml [place]) 1 spray MUCOUS MEM Q2H PRN PRN Reason: Dry Mouth Last Admin: 10/19/21 09:00 Dose: 1 spray Thiamine HCl (Thiamine Hcl 100 Mg Tablet) 100 mg PO DAILY [facility] Last Admin: 10/19/21 08:52 Dose: 100 mg Trazodone HCl (Trazodone Hcl 100 Mg Tablet) 200 mg PO BEDTIME [facility] Last Admin: 10/18/21 21:22 Dose: 200 mg Vitamin D (Cholecalciferol (Vitamin D3) 25 Mcg Tablet) 50 mcg PO DAILY [facility] Last Admin: 10/19/21 08:51 Dose: 50 mcg Allergies Allergies Allergy/AdvReac Type Severity Reaction Status Date / Time Sulfa (Sulfonamide Allergy Unknown [facility]ES Verified 03/15/21 14:13 Antibiotics) [SULFA (SULFONAMIDE ANTIBIOTICS)] sulfamethoxazole Allergy Unknown [facility] Verified 03/15/21 14:13 [From BACTRIM] trimethoprim [From BACTRIM] Allergy Unknown [facility]ES Verified 03/15/21 14:13 oseltamivir [From Tamiflu] AdvReac Sensation Verified 09/29/21 11:20 of bugs crawling on skin. Assessment & Plan Assessment & Plan (1) MDD (major depressive disorder), recurrent severe, without psychosis: Status: Acute Code(s): F33.2 - Major depressive disorder, recurrent severe without psychotic features (2) PTSD (post-traumatic stress disorder): Status: Acute Code(s): F43.10 - Post-traumatic stress disorder, unspecified (3) Suicidal ideation: Status: Acute Code(s): R45.851 - Suicidal ideations Plan 36 yo non-binary individual, prefers they them pronouns, presents with active SI, SIBS, several plans to self-harm in the context of the anniversary of the loss of a child she planned to co-parent who was still born. Pt able to surrender a rope she made in the ER from clothing and agrees to one to one specialing to assist with management of her safety needs until she is able to manage with more independence. Pt reports an increase in sleep, decrease in functioning, unable to attend treatment activities, and constant thoughts of and dying-several plans for suicide including to head bang so severely she will fall asleep and never awaken. Plan pt on 1:1 for safety B12 supplement as levels are low TSH, FT4 One to One Special Increase Olanzpaine to 7.5 mg prn-pt plans to take this bid Full milieu involvement to process this anniversary of her loss 10/09/21 Continue current regime. 10/10 continue current regimen 10/10 continue current regimen 10/13/21 Continue current plan. 10/14/21 Continue current regime 10/16/21 Continue current regime Bilateral pedal edema-compression socks, encourage elevation, albumin level Change metamucil to a.m. per pt request Vit B12 daily (cyanocobalamin) 10/17/21 feeling a little better and less urges to self-harm; needs to remain on one-to-one though since she is not quite ready for safety 10/18/21 continues to feel closer towards safety and no longer needing a one-to-one; however wants to discuss this with Mildred Albrecht before coming off 10/19/21 Discussion of discontinuation of one to one. Will trial beginning on the night coordinator. Change to 5 minute checks. Sandi states is able to let the team know if she is feeling unsafe. I spent minutes with the patient and/or on the patient floor today, greater than?50% of which was spent counseling/coordinating care. Patient educated on: therapeutic strategies Informed Consent: understands Reason for contiued inpatient stay Substantial Risk for: harm to self and rapid decompensation
[2021-10-19] MEDS: Milk of Magnesia 30 ML ORAL.SUSP PO (15:13)
--- NOTE | 2021-10-19 18:48 | PC.NURSE ---
Patient is c/o constipation. Dr. Azar notified and will write an order for Mag Citrate.
[2021-10-19 21:00] VITALS: BP 133/76; PULSE 95; TEMP 36.7; O2SAT 97
[2021-10-19] MEDS: Melatonin 3 MG TABLET 9 MG PO (21:07)
[2021-10-19] MEDS: PRAZOSIN HCL 14 MG PO (21:07)
[2021-10-19] MEDS: HaloperidoL 5 MG TABLET 10 MG PO (21:08)
[2021-10-19] MEDS: traZODone HCL 100 MG TABLET 200 MG PO (21:08)
[2021-10-20 06:00] VITALS: BP 131/74; PULSE 89; RESP 16; TEMP 36.6; O2SAT 97
[2021-10-20] MEDS: Fluticasone Propionate Nasal 16 GM SPRAY NOSTRIL-B (09:00)
[2021-10-20] MEDS: Dry Mouth Spray 60 ML SPRAY 1 SPRAY MUCOUS MEM (09:00)
[2021-10-20] MEDS: Docusate Sodium 100 MG CAPSULE PO ×2 (09:01→21:33)
[2021-10-20] MEDS: Cholecalciferol (Vitamin D3) 25 MCG TABLET 50 MCG PO (09:01)
[2021-10-20] MEDS: ALPRAZolam 0.5 MG TABLET 1 MG PO ×3 (09:01→21:32)
[2021-10-20] MEDS: Cyanocobalamin (Vitamin B-12) 100 MCG TABLET PO (09:01)
[2021-10-20] MEDS: Amphetamine Mixed Salts 20 MG TABLET PO (09:01)
[2021-10-20] MEDS: Lithium Carbonate ER 300 MG TABLET.ER 600 MG PO ×2 (09:01→21:33)
[2021-10-20] MEDS: Thiamine HCL 100 MG TABLET PO (09:01)
[2021-10-20] MEDS: Benztropine Mesylate 0.5 MG TABLET PO ×2 (09:01→21:33)
[2021-10-20] MEDS: OLANZapine 7.5 MG TABLET PO ×3 (09:01→21:33)
[2021-10-20] MEDS: polyethylene glycoL 3350 17 GM POWD.PACK PO (09:02)
[2021-10-20] MEDS: Nicotine 14 MG PATCH.TD24 TRANSDERMA (09:03)
[2021-10-20] MEDS: Magnesium Citrate 300 ML SOLUTION PO (11:52)
--- NOTE | 2021-10-20 12:15 | P.PNPSI_ITS ---
Subjective Subjective Date of Service: 10/20/21 Reason For Visit: Major depression, recurrent severe; PTSD Subjective Notes: Conditional Voluntary Healthcare Proxy: No Guardianship: No Medical Problems Affecting Mental Status: No Interim History: Tolerating 5 minute checks. Bathroom remains locked-pt feeling safer with this in place. Discussed progressing to 15 minute checks, unlocked bathroom by the end of the week-she believes she will be ready. Believes issues with constipation may be in part due to having one to one and minimal privacy. Attempting to prioritize self care and return to a balance that is appropriate for her health and safety. Medication Compliance: Yes Side effects from medications: No Attending Groups: Yes Review of Systems Acute medical concerns: No Medical Review of Systems: unchanged Review of Systems Gastrointestinal: Reports constipation Psychiatric: Reports suicidal ideation (decreased, fleeting, feels she can ask for help when needed) Mental Status Exam Mental Status Exam Patient Appearance: Appropriate Patient Orientation: Person, Place, Time and Situation Level of Consciousness: Alert Patient Behavior: Appropriate, Talkative, Cooperative and Good Eye Contact Mood Description: Flat Affect Description: Flat Patient Cognition Impaired: No Ability to Follow Directions: Good Speech Pattern: Spontaneous Speech Memory Description: Intact Hallucinations: None Delusions: Not Present Perceptual Disturbances: Depersonalization and Derealization Thought Process: Intact and Goal Oriented Thought Content: positive for Intact, positive for Goal Oriented and positive for Suicidal Ideation (denies today) Depressive Symptoms: Thoughts of /Suicide (denies) Judgement: Good Diagnostics Vital Signs (24Hr): Vital Signs - 24 hr 10/19/21 21:00 10/20/21 06:00 Temperature 98.0 F 97.9 F Pulse Rate 95 89 Respiratory Rate 16 Blood Pressure 133/76 131/74 Pulse Oximetry 97 97 Oxygen Delivery Method Room Air BMI result Body Mass Index 56.0 Labs Results: 10/05/21 17:52 10/05/21 17:52 Medications Medications Current Medications Acetaminophen (Acetaminophen 325 Mg Tablet) 650 mg PO Q6H PRN PRN Reason: Headache/Pain Mild Scale (1-3) Al Hydroxide/Mg Hydroxide (Magnesium Hydrox/Alum Hydrox 30 Ml Oral.Susp) 30 ml PO Q6H PRN PRN Reason: Heartburn/Nausea Alprazolam (Alprazolam 0.5 Mg Tablet) 1 mg PO QID PRN PRN Reason: anxiety Last Admin: 10/20/21 09:01 Dose: 1 mg Amphetamine/Dextroamphetamine (Amphetamine Mixed Salts 20 Mg Tablet) 20 mg PO DAILY [facility] Last Admin: 10/20/21 09:01 Dose: 20 mg Benztropine Mesylate (Benztropine Mesylate 0.5 Mg Tablet) 0.5 mg PO BID [facility] Last Admin: 10/20/21 09:01 Dose: 0.5 mg Cyanocobalamin (Cyanocobalamin (Vitamin B-12) 100 Mcg Tablet) 100 mcg PO DAILY [facility] Last Admin: 10/20/21 09:01 Dose: 100 mcg Docusate Sodium (Docusate Sodium 100 Mg Capsule) 100 mg PO BID [facility] Last Admin: 10/20/21 09:01 Dose: 100 mg Fluticasone Propionate (Fluticasone Propionate Nasal 16 Gm [place]) 1 - 2 spray NOSTRIL-B DAILY [facility] Last Admin: 10/20/21 09:00 Dose: 1 spray Haloperidol (Haloperidol 5 Mg Tablet) 10 mg PO BID PRN PRN Reason: si, agitation Last Admin: 10/19/21 21:08 Dose: 10 mg Hydroxyzine HCl (Hydroxyzine Hcl 25 Mg Tablet) 25 mg PO Q6H PRN PRN Reason: Anxiety Last Admin: 10/13/21 08:39 Dose: 25 mg [place] Carbonate ([place] Carbonate Er 300 Mg Tablet.Er) 600 mg PO BID [facility] Last Admin: 10/20/21 09:01 Dose: 600 mg Magnesium Hydroxide (Milk Of Magnesia 30 Ml Oral.Susp) 30 ml PO DAILY PRN PRN Reason: Constipation Last Admin: 10/19/21 15:13 Dose: 30 ml Melatonin (Melatonin 3 Mg Tablet) 9 mg PO BEDTIME [facility] Last Admin: 10/19/21 21:07 Dose: 9 mg Nicotine (Nicotine 14 Mg Patch.Td24) 14 mg TRANSDERMA DAILY [facility] Last Admin: 10/20/21 09:03 Dose: 14 mg Nicotine Polacrilex (Nicotine Polacrilex 2 Mg Gum) 2 mg BUCCAL Q2H PRN PRN Reason: nicotine withdrawal Last Admin: 10/15/21 16:12 Dose: 2 mg Pt Own Med ( Desvenlafaxine 100 Mg Tablet Extended Release 24 Hr) 100 mg PO DAILY [facility] Last Admin: 10/20/21 09:00 Dose: 100 mg Patient Own Medication (Bactine Max Cleansing [place] ) 2 sprays TOPICAL BID [facility] Last Admin: 10/20/21 09:02 Dose: Not Given Patient Own Medication (Bactine Hydrogel ) 1 applic TOPICAL BID [facility] Last Admin: 10/20/21 09:02 Dose: Not Given Olanzapine (Olanzapine 7.5 Mg Tablet) 7.5 mg PO TID PRN PRN Reason: Anxiety Last Admin: 10/20/21 09:01 Dose: 7.5 mg Polyethylene Glycol (Polyethylene Glycol 3350 17 Gm Powd.Pack) 17 gm PO DAILY [facility] Last Admin: 10/20/21 09:02 Dose: 17 gm Prazosin HCl 10 mg/ Prazosin (HCl 4 mg) 14 mg PO BEDTIME [facility] Last Admin: 10/19/21 21:07 Dose: 14 mg Saliva Substitute (Dry Mouth [place] 60 Ml [place]) 1 spray MUCOUS MEM Q2H PRN PRN Reason: Dry Mouth Last Admin: 10/20/21 09:00 Dose: 1 spray Thiamine HCl (Thiamine Hcl 100 Mg Tablet) 100 mg PO DAILY [facility] Last Admin: 10/20/21 09:01 Dose: 100 mg Trazodone HCl (Trazodone Hcl 100 Mg Tablet) 200 mg PO BEDTIME [facility] Last Admin: 10/19/21 21:08 Dose: 200 mg Vitamin D (Cholecalciferol (Vitamin D3) 25 Mcg Tablet) 50 mcg PO DAILY [facility] Last Admin: 10/20/21 09:01 Dose: 50 mcg Allergies Allergies Allergy/AdvReac Type Severity Reaction Status Date / Time Sulfa (Sulfonamide Allergy Unknown HIVES Verified 03/15/21 14:13 Antibiotics) [SULFA (SULFONAMIDE ANTIBIOTICS)] sulfamethoxazole Allergy Unknown HIVES Verified 03/15/21 14:13 [From BACTRIM] trimethoprim [From BACTRIM] Allergy Unknown HIVES Verified 03/15/21 14:13 oseltamivir [From Tamiflu] AdvReac Sensation Verified 09/29/21 11:20 of bugs crawling on skin. Assessment & Plan Assessment & Plan (1) MDD (major depressive disorder), recurrent severe, without psychosis: Status: Acute Code(s): F33.2 - Major depressive disorder, recurrent severe without psychotic features (2) PTSD (post-traumatic stress disorder): Status: Acute Code(s): F43.10 - Post-traumatic stress disorder, unspecified (3) Suicidal ideation: Status: Acute Code(s): R44.255 - Suicidal ideations Plan 36 yo non-binary individual, prefers they them pronouns, presents with active SI, SIBS, several plans to self-harm in the context of the anniversary of the loss of a child she planned to co-parent who was still born. Pt able to surrender a rope she made in the ER from clothing and agrees to one to one specialing to assist with management of her safety needs until she is able to manage with more independence. Pt reports an increase in sleep, decrease in func tioning, unable to attend treatment activities, and constant thoughts of and dying-several plans for suicide including to head bang so severely she will fall asleep and never awaken. Plan pt on 1:1 for safety B12 supplement as levels are low TSH, FT4 One to One Special Increase Olanzpaine to 7.5 mg prn-pt plans to take this bid Full milieu involvement to process this anniversary of her loss 10/09/21 Continue current regime. 10/10 continue current regimen 10/10 continue current regimen 10/13/21 Continue current plan. 10/14/21 Continue current regime 10/16/21 Continue current regime Bilateral pedal edema-compression socks, encourage elevation, albumin level Change metamucil to a.m. per pt request Vit B12 daily (cyanocobalamin) 10/17/21 feeling a little better and less urges to self-harm; needs to remain on one-to-one though since she is not quite ready for safety 10/18/21 continues to feel closer towards safety and no longer needing a one-to-one; however wants to discuss this with Mildred Albrecht before coming off 10/19/21 Discussion of discontinuation of one to one. Will trial beginning on the caustic cresylate shift superintendent. Change to 5 minute checks. Sandi states is able to let the team know if she is feeling unsafe. 10/20/21 Continue forward movement on expanding pt's safety net with increase in independence. I spent minutes with the patient and/or on the patient floor today, greater than?50% of which was spent counseling/coordinating care. Patient educated on: therapeutic strategies Informed Consent: understands Reason for contiued inpatient stay Substantial Risk for: harm to self and rapid decompensation
[2021-10-20 21:30] VITALS: BP 150/87; TEMP 36.6
[2021-10-20] MEDS: PRAZOSIN HCL 14 MG PO (21:33)
[2021-10-20] MEDS: Melatonin 3 MG TABLET 9 MG PO (21:34)
[2021-10-20] MEDS: traZODone HCL 100 MG TABLET 200 MG PO (21:34)
[2021-10-21 06:00] VITALS: BP 127/82; PULSE 96; TEMP 36.7; O2SAT 95
[2021-10-21] MEDS: Fluticasone Propionate Nasal 16 GM SPRAY NOSTRIL-B (08:20)
[2021-10-21] MEDS: Dry Mouth Spray 60 ML SPRAY 1 SPRAY MUCOUS MEM (08:20)
[2021-10-21] MEDS: polyethylene glycoL 3350 17 GM POWD.PACK PO (08:21)
[2021-10-21] MEDS: Cyanocobalamin (Vitamin B-12) 100 MCG TABLET PO (08:21)
[2021-10-21] MEDS: Benztropine Mesylate 0.5 MG TABLET PO ×2 (08:21→20:00)
[2021-10-21] MEDS: ALPRAZolam 0.5 MG TABLET 1 MG PO ×3 (08:21→20:28)
[2021-10-21] MEDS: Docusate Sodium 100 MG CAPSULE PO ×2 (08:21→20:00)
[2021-10-21] MEDS: Thiamine HCL 100 MG TABLET PO (08:21)
[2021-10-21] MEDS: HaloperidoL 5 MG TABLET 10 MG PO (08:21)
[2021-10-21] MEDS: Amphetamine Mixed Salts 20 MG TABLET PO (08:21)
[2021-10-21] MEDS: Cholecalciferol (Vitamin D3) 25 MCG TABLET 50 MCG PO (08:21)
[2021-10-21] MEDS: Lithium Carbonate ER 300 MG TABLET.ER 600 MG PO ×2 (08:21→19:59)
[2021-10-21] MEDS: Nicotine 14 MG PATCH.TD24 TRANSDERMA (08:23)
[2021-10-21] MEDS: OLANZapine 7.5 MG TABLET PO ×2 (14:04→20:29)
--- NOTE | 2021-10-21 16:09 | HO.PSYCHPN ---
Subjective Subjective Date of Service: 10/21/21 Reason For Visit: Major depression, recurrent severe; PTSD Subjective Notes: Conditional Voluntary Healthcare Proxy: No Guardianship: No Medical Problems Affecting Mental Status: No Interim History: Discussed mgt of anxiety. Able to tolerate absence of one to one, I think it has allowed me to get to know other patients-there are some great people here that I am glad to have met and learn from . Identified poetry interest with a peer and their discussion about this, an inspiration of ideas pt reports. Discussed moving to unlocked bathroom status Medication Compliance: Yes Side effects from medications: No Attending Groups: Yes Review of Systems Acute medical concerns: No Medical Review of Systems: unchanged Review of Systems Psychiatric: Reports anxiety (apprehension) Mental Status Exam Mental Status Exam Patient Appearance: Appropriate Patient Orientation: Person, Place, Time and Situation Level of Consciousness: Alert Patient Behavior: Appropriate, Talkative, Cooperative and Good Eye Contact Mood Description: Flat Affect Description: Flat Patient Cognition Impaired: No Ability to Follow Directions: Good Speech Pattern: Spontaneous Speech Memory Description: Intact Hallucinations: None Delusions: Not Present Perceptual Disturbances: Depersonalization and Derealization Thought Process: Intact and Goal Oriented Thought Content: positive for Intact, positive for Goal Oriented and positive for Suicidal Ideation (denies today) Depressive Symptoms: Thoughts of /Suicide (denies) Judgement: Good Diagnostics Vital Signs (24Hr): Vital Signs - 24 hr 10/20/21 21:30 10/21/21 06:00 Temperature 97.8 F 98.0 F Pulse Rate 96 Blood Pressure 150/87 H 127/82 Pulse Oximetry 95 Oxygen Delivery Method Room Air Room Air BMI result Body Mass Index 56.0 Labs Results: 10/05/21 17:52 10/05/21 17:52 Medications Medications Current Medications Acetaminophen (Acetaminophen 325 Mg Tablet) 650 mg PO Q6H PRN PRN Reason: Headache/Pain Mild Scale (1-3) Al Hydroxide/Mg Hydroxide (Magnesium Hydrox/Alum Hydrox 30 Ml Oral.Susp) 30 ml PO Q6H PRN PRN Reason: Heartburn/Nausea Alprazolam (Alprazolam 0.5 Mg Tablet) 1 mg PO QID PRN PRN Reason: anxiety Last Admin: 10/21/21 14:04 Dose: 1 mg Amphetamine/Dextroamphetamine (Amphetamine Mixed Salts 20 Mg Tablet) 20 mg PO DAILY [facility] Last Admin: 10/21/21 08:21 Dose: 20 mg Benztropine Mesylate (Benztropine Mesylate 0.5 Mg Tablet) 0.5 mg PO BID [facility] Last Admin: 10/21/21 08:21 Dose: 0.5 mg Cyanocobalamin (Cyanocobalamin (Vitamin B-12) 100 Mcg Tablet) 100 mcg PO DAILY [facility] Last Admin: 10/21/21 08:21 Dose: 100 mcg Docusate Sodium (Docusate Sodium 100 Mg Capsule) 100 mg PO BID [facility] Last Admin: 10/21/21 08:21 Dose: 100 mg Fluticasone Propionate (Fluticasone Propionate Nasal 16 Gm [place]) 1 - 2 spray NOSTRIL-B DAILY [facility] Last Admin: 10/21/21 08:20 Dose: 1 spray Haloperidol (Haloperidol 5 Mg Tablet) 10 mg PO BID PRN PRN Reason: si, agitation Last Admin: 10/21/21 08:21 Dose: 10 mg Hydroxyzine HCl (Hydroxyzine Hcl 25 Mg Tablet) 25 mg PO Q6H PRN PRN Reason: Anxiety Last Admin: 10/13/21 08:39 Dose: 25 mg [place] Carbonate ([place] Carbonate Er 300 Mg Tablet.Er) 600 mg PO BID [facility] Last Admin: 10/21/21 08:21 Dose: 600 mg Magnesium Hydroxide (Milk Of Magnesia 30 Ml Oral.Susp) 30 ml PO DAILY PRN PRN Reason: Constipation Last Admin: 10/19/21 15:13 Dose: 30 ml Melatonin (Melatonin 3 Mg Tablet) 9 mg PO BEDTIME [facility] Last Admin: 10/20/21 21:34 Dose: 9 mg Nicotine (Nicotine 14 Mg Patch.Td24) 14 mg TRANSDERMA DAILY [facility] Last Admin: 10/21/21 08:23 Dose: 14 mg Nicotine Polacrilex (Nicotine Polacrilex 2 Mg Gum) 2 mg BUCCAL Q2H PRN PRN Reason: nicotine withdrawal Last Admin: 10/15/21 16:12 Dose: 2 mg Pt Own Med ( Desvenlafaxine 100 Mg Tablet Extended Release 24 Hr) 100 mg PO DAILY [facility] Last Admin: 10/21/21 08:23 Dose: 100 mg Olanzapine (Olanzapine 7.5 Mg Tablet) 7.5 mg PO TID PRN PRN Reason: Anxiety Last Admin: 10/21/21 14:04 Dose: 7.5 mg Polyethylene Glycol (Polyethylene Glycol 3350 17 Gm Powd.Pack) 17 gm PO DAILY [facility] Last Admin: 10/21/21 08:21 Dose: 17 gm Prazosin HCl 10 mg/ Prazosin (HCl 4 mg) 14 mg PO BEDTIME [facility] Last Admin: 10/20/21 21:33 Dose: 14 mg Saliva Substitute (Dry Mouth [place] 60 Ml [place]) 1 spray MUCOUS MEM Q2H PRN PRN Reason: Dry Mouth Last Admin: 10/21/21 08:20 Dose: 1 spray Thiamine HCl (Thiamine Hcl 100 Mg Tablet) 100 mg PO DAILY [facility] Last Admin: 10/21/21 08:21 Dose: 100 mg Trazodone HCl (Trazodone Hcl 100 Mg Tablet) 200 mg PO BEDTIME [facility] Last Admin: 10/20/21 21:34 Dose: 200 mg Vitamin D (Cholecalciferol (Vitamin D3) 25 Mcg Tablet) 50 mcg PO DAILY [facility] Last Admin: 10/21/21 08:21 Dose: 50 mcg Allergies Allergies Allergy/AdvReac Type Severity Reaction Status Date / Time Sulfa (Sulfonamide Allergy Unknown HIVES Verified 03/15/21 14:13 Antibiotics) [SULFA (SULFONAMIDE ANTIBIOTICS)] sulfamethoxazole Allergy Unknown HIVES Verified 03/15/21 14:13 [From BACTRIM] trimethoprim [From BACTRIM] Allergy Unknown HIVES Verified 03/15/21 14:13 oseltamivir [From Tamiflu] AdvReac Sensation Verified 09/29/21 11:20 of bugs crawling on skin. Assessment & Plan Assessment & Plan (1) MDD (major depressive disorder), recurrent severe, without psychosis: Status: Acute Code(s): F33.2 - Major depressive disorder, recurrent severe without psychotic features (2) PTSD (post-traumatic stress disorder): Status: Acute Code(s): F43.10 - Post-traumatic stress disorder, unspecified (3) Suicidal ideation: Status: Acute Code(s): R45.851 - Suicidal ideations Plan 36 yo non-binary individual, prefers they them pronouns, presents with active SI, SIBS, several plans to self-harm in the context of the anniversary of the loss of a child she planned to co-parent who was still born. Pt able to surrender a rope she made in the ER from clothing and agrees to one to one specialing to assist with management of her safety needs until she is able to manage with more independence. Pt reports an increase in sleep, decrease in functioning, unable to attend treatment activities, and constant thoughts of and dying-several plans for suicide including to head bang so severely she will fall asleep and never awaken. Plan pt on 1:1 for safety B12 supplement as levels are low TSH, FT4 One to One Special Increase Olanzpaine to 7.5 mg prn-pt plans to take this bid Full milieu involvement to process this anniversary of her loss 10/09/21 Continue current regime. 10/10 continue current regimen 10/10 continue current regimen 10/13/21 Continue current plan. 10/14/21 Continue current regime 10/16/21 Continue current regime Bilateral pedal edema-compression socks, encourage elevation, albumin level Change metamucil to a.m. per pt request Vit B12 daily (cyanocobalamin) 10/17/21 feeling a little better and less urges to self-harm; needs to remain on one-to-one though since she is not quite ready for safety 10/18/21 continues to feel closer towards safety and no longer needing a one-to-one; however wants to discuss this with Mildred Albrecht before coming off 10/19/21 Discussion of discontinuation of one to one. Will trial beginning on the shift superintendent caustic cresylate. Change to 5 minute checks. Sandi states is able to let the team know if she is feeling unsafe. 10/21/21: Continue current regime I spent minutes with the patient and/or on the patient floor today, greater than?50% of which was spent counseling/coordinating care. Patient educated on: therapeutic strategies Informed Consent: understands Reason for contiued inpatient stay Substantial Risk for: harm to self
[2021-10-21 18:00] VITALS: BP 124/78; PULSE 85; RESP 16; TEMP 36.4; O2SAT 98
[2021-10-21] MEDS: PRAZOSIN HCL 14 MG PO (19:59)
[2021-10-21] MEDS: traZODone HCL 100 MG TABLET 200 MG PO (20:00)
[2021-10-21] MEDS: Melatonin 3 MG TABLET 9 MG PO (20:01)
[2021-10-22] MEDS: Fluticasone Propionate Nasal 16 GM SPRAY NOSTRIL-B (08:03)
[2021-10-22] MEDS: Dry Mouth Spray 60 ML SPRAY 1 SPRAY MUCOUS MEM (08:03)
[2021-10-22] MEDS: Benztropine Mesylate 0.5 MG TABLET PO ×2 (08:04→20:30)
[2021-10-22] MEDS: Cholecalciferol (Vitamin D3) 25 MCG TABLET 50 MCG PO (08:04)
[2021-10-22] MEDS: Docusate Sodium 100 MG CAPSULE PO ×2 (08:04→20:30)
[2021-10-22] MEDS: OLANZapine 7.5 MG TABLET PO ×2 (08:04→20:31)
[2021-10-22] MEDS: Cyanocobalamin (Vitamin B-12) 100 MCG TABLET PO (08:04)
[2021-10-22] MEDS: Thiamine HCL 100 MG TABLET PO (08:04)
[2021-10-22] MEDS: Amphetamine Mixed Salts 20 MG TABLET PO (08:04)
[2021-10-22] MEDS: Nicotine 14 MG PATCH.TD24 TRANSDERMA (08:04)
[2021-10-22] MEDS: Lithium Carbonate ER 300 MG TABLET.ER 600 MG PO ×2 (08:04→20:31)
[2021-10-22] MEDS: ALPRAZolam 0.5 MG TABLET 1 MG PO ×3 (08:04→20:32)
[2021-10-22 08:12] VITALS: BMI 56.2
--- NOTE | 2021-10-22 09:19 | P.PNPSI_ITS ---
Subjective Subjective Date of Service: 10/22/21 Reason For Visit: Major depression, recurrent severe; PTSD Subjective Notes: Conditional Voluntary Healthcare Proxy: No Guardianship: No Medical Problems Affecting Mental Status: No Interim History: Difficult day- increase in intrusive thoughts as the day has progressed-no specific identified precipitant. Tolerating being off one to one, asks that bathroom remains locked for the time being. I get into these episodes of feelings and thoughts, they safety is effected, and I cannot figure out a reason why they are occurring. Utilizing prns. Reports constipation to be resolving. Medication Compliance: Yes Side effects from medications: No Attending Groups: Yes Review of Systems Acute medical concerns: No Medical Review of Systems: unchanged Review of Systems Psychiatric: Reports anxiety (apprehension), Reports depression, Reports difficulty concentrating, Reports hopelessness, Reports anhedonia and Reports suicidal ideation Mental Status Exam Mental Status Exam Patient Appearance: Appropriate Patient Orientation: Person, Place, Time and Situation Level of Consciousness: Alert Patient Behavior: Appropriate, Talkative, Cooperative and Good Eye Contact Mood Description: Flat Affect Description: Flat Patient Cognition Impaired: No Ability to Follow Directions: Good Speech Pattern: Spontaneous Speech Memory Description: Intact Hallucinations: None Delusions: Not Present Perceptual Disturbances: Depersonalization and Derealization Thought Process: Intact and Goal Oriented Thought Content: positive for Intact, positive for Goal Oriented and positive for Suicidal Ideation Depressive Symptoms: Thoughts of /Suicide Judgement: Good Diagnostics Vital Signs (24Hr): Vital Signs - 24 hr 10/21/21 18:00 Temperature 97.6 F Pulse Rate 85 Respiratory Rate 16 Blood Pressure 124/78 Pulse Oximetry 98 Oxygen Delivery Method Room Air BMI result Body Mass Index 56.2 Labs Results: 10/05/21 17:52 10/05/21 17:52 Medications Medications Current Medications Acetaminophen (Acetaminophen 325 Mg Tablet) 650 mg PO Q6H PRN PRN Reason: Headache/Pain Mild Scale (1-3) Al Hydroxide/Mg Hydroxide (Magnesium Hydrox/Alum Hydrox 30 Ml Oral.Susp) 30 ml PO Q6H PRN PRN Reason: Heartburn/Nausea Alprazolam (Alprazolam 0.5 Mg Tablet) 1 mg PO QID PRN PRN Reason: anxiety Last Admin: 10/22/21 08:04 Dose: 1 mg Amphetamine/Dextroamphetamine (Amphetamine Mixed Salts 20 Mg Tablet) 20 mg PO DAILY [facility] Last Admin: 10/22/21 08:04 Dose: 20 mg Benztropine Mesylate (Benztropine Mesylate 0.5 Mg Tablet) 0.5 mg PO BID [facility] Last Admin: 10/22/21 08:04 Dose: 0.5 mg Cyanocobalamin (Cyanocobalamin (Vitamin B-12) 100 Mcg Tablet) 100 mcg PO DAILY [facility] Last Admin: 10/22/21 08:04 Dose: 100 mcg Docusate Sodium (Docusate Sodium 100 Mg Capsule) 100 mg PO BID [facility] Last Admin: 10/22/21 08:04 Dose: 100 mg Fluticasone Propionate (Fluticasone Propionate Nasal 16 Gm [place]) 1 - 2 spray NOSTRIL-B DAILY [facility] Last Admin: 10/22/21 08:03 Dose: 1 spray Haloperidol (Haloperidol 5 Mg Tablet) 10 mg PO BID PRN PRN Reason: si, agitation Last Admin: 10/21/21 08:21 Dose: 10 mg Hydroxyzine HCl (Hydroxyzine Hcl 25 Mg Tablet) 25 mg PO Q6H PRN PRN Reason: Anxiety Last Admin: 10/13/21 08:39 Dose: 25 mg [place] Carbonate ([place] Carbonate Er 300 Mg Tablet.Er) 600 mg PO BID [facility] Last Admin: 10/22/21 08:04 Dose: 600 mg Magnesium Hydroxide (Milk Of Magnesia 30 Ml Oral.Susp) 30 ml PO DAILY PRN PRN Reason: Constipation Last Admin: 10/19/21 15:13 Dose: 30 ml Melatonin (Melatonin 3 Mg Tablet) 9 mg PO BEDTIME [facility] Last Admin: 10/21/21 20:01 Dose: 9 mg Nicotine (Nicotine 14 Mg Patch.Td24) 14 mg TRANSDERMA DAILY [facility] Last Admin: 10/22/21 08:04 Dose: 14 mg Nicotine Polacrilex (Nicotine Polacrilex 2 Mg Gum) 2 mg BUCCAL Q2H PRN PRN Reason: nicotine withdrawal Last Admin: 10/15/21 16:12 Dose: 2 mg Pt Own Med ( Desvenlafaxine 100 Mg Tablet Extended Release 24 Hr) 100 mg PO DAILY [facility] Last Admin: 10/22/21 08:03 Dose: 100 mg Olanzapine (Olanzapine 7.5 Mg Tablet) 7.5 mg PO TID PRN PRN Reason: Anxiety Last Admin: 10/22/21 08:04 Dose: 7.5 mg Polyethylene Glycol (Polyethylene Glycol 3350 17 Gm Powd.Pack) 17 gm PO DAILY [facility] Last Admin: 10/22/21 08:11 Dose: Not Given Prazosin HCl 10 mg/ Prazosin (HCl 4 mg) 14 mg PO BEDTIME [facility] Last Admin: 10/21/21 19:59 Dose: 14 mg Saliva Substitute (Dry Mouth [place] 60 Ml [place]) 1 spray MUCOUS MEM Q2H PRN PRN Reason: Dry Mouth Last Admin: 10/22/21 08:03 Dose: 1 spray Thiamine HCl (Thiamine Hcl 100 Mg Tablet) 100 mg PO DAILY [facility] Last Admin: 10/22/21 08:04 Dose: 100 mg Trazodone HCl (Trazodone Hcl 100 Mg Tablet) 200 mg PO BEDTIME [facility] Last Admin: 10/21/21 20:00 Dose: 200 mg Vitamin D (Cholecalciferol (Vitamin D3) 25 Mcg Tablet) 50 mcg PO DAILY [facility] Last Admin: 10/22/21 08:04 Dose: 50 mcg Allergies Allergies Allergy/AdvReac Type Severity Reaction Status Date / Time Sulfa (Sulfonamide Allergy Unknown HIVES Verified 03/15/21 14:13 Antibiotics) [SULFA (SULFONAMIDE ANTIBIOTICS)] sulfamethoxazole Allergy Unknown HIVES Verified 03/15/21 14:13 [From BACTRIM] trimethoprim [From BACTRIM] Allergy Unknown HIVES Verified 03/15/21 14:13 oseltamivir [From Tamiflu] AdvReac Sensation Verified 09/29/21 11:20 of bugs crawling on skin. Assessment & Plan Assessment & Plan (1) MDD (major depressive disorder), recurrent severe, without psychosis: Status: Acute Code(s): F33.2 - Major depressive disorder, recurrent severe without psychotic features (2) PTSD (post-traumatic stress disorder): Status: Acute Code(s): F43.10 - Post-traumatic stress disorder, unspecified (3) Suicidal ideation: Status: Acute Code(s): R45.851 - Suicidal ideations Plan 36 yo non-binary individual, prefers they them pronouns, presents with active SI, SIBS, several plans to self-harm in the context of the anniversary of the loss of a child she planned to co-parent who was still born. Pt able to surrender a rope she made in the ER from clothing and agrees to one to one specialing to assist with management of her safety needs until she is able to manage with more independence. Pt reports an increase in sleep, decrease in functioning, unable to attend treatment activities, and constant thoughts of and dying-several plans for suicide including to head bang so severely she will fall asleep and never awaken. Plan pt on 1:1 for safety B12 supplement as levels are low TSH, FT4 One to One Special Increase Olanzpaine to 7.5 mg prn-pt plans to take this bid Full milieu involvement to process this anniversary of her loss 10/09/21 Continue current regime. 10/10 continue current regimen 10/10 continue current regimen 10/13/21 Continue current plan. 10/14/21 Continue current regime 10/16/21 Continue current regime Bilateral pedal edema-compression socks, encourage elevation, albumin level Change metamucil to a.m. per pt request Vit B12 daily (cyanocobalamin) 10/17/21 feeling a little better and less urges to self-harm; needs to remain on one-to-one though since she is not quite ready for safety 10/18/21 continues to feel closer towards safety and no longer needing a one-to-one; however wants to discuss this with Mildred Albrecht before coming off 10/19/21 Discussion of discontinuation of one to one. Will trial beginning on the shiftman. Change to 5 minute checks. Sandi states is able to let the team know if she is feeling unsafe. 10/21/21: Continue current regime 10/22/21: Continue current regime I spent minutes with the patient and/or on the patient floor today, greater than?50% of which was spent counseling/coordinating care. Patient educated on: therapeutic strategies Informed Consent: understands Reason for contiued inpatient stay Substantial Risk for: rapid decompensation
[2021-10-22] MEDS: Acetaminophen 325 MG TABLET 650 MG PO (09:28)
[2021-10-22 10:35] VITALS: BP 125/67; PULSE 101; RESP 18; TEMP 36.7; O2SAT 96
[2021-10-22] MEDS: HaloperidoL 5 MG TABLET 10 MG PO (16:29)
[2021-10-22 18:00] VITALS: BP 122/79; PULSE 101; RESP 16; TEMP 36.8; O2SAT 99
[2021-10-22] MEDS: PRAZOSIN HCL 14 MG PO (20:29)
[2021-10-22] MEDS: traZODone HCL 100 MG TABLET 200 MG PO (20:31)
[2021-10-22] MEDS: Melatonin 3 MG TABLET 9 MG PO (20:32)
[2021-10-23] MEDS: Dry Mouth Spray 60 ML SPRAY 1 SPRAY MUCOUS MEM (08:12)
[2021-10-23] MEDS: Fluticasone Propionate Nasal 16 GM SPRAY NOSTRIL-B (08:12)
[2021-10-23] MEDS: Cholecalciferol (Vitamin D3) 25 MCG TABLET 50 MCG PO (08:13)
[2021-10-23] MEDS: Amphetamine Mixed Salts 20 MG TABLET PO (08:13)
[2021-10-23] MEDS: OLANZapine 7.5 MG TABLET PO ×3 (08:13→22:01)
[2021-10-23] MEDS: Docusate Sodium 100 MG CAPSULE PO ×2 (08:13→21:50)
[2021-10-23] MEDS: Thiamine HCL 100 MG TABLET PO (08:13)
[2021-10-23] MEDS: ALPRAZolam 0.5 MG TABLET 1 MG PO ×4 (08:13→22:01)
[2021-10-23] MEDS: Benztropine Mesylate 0.5 MG TABLET PO ×2 (08:13→21:50)
[2021-10-23] MEDS: Cyanocobalamin (Vitamin B-12) 100 MCG TABLET PO (08:13)
[2021-10-23] MEDS: Lithium Carbonate ER 300 MG TABLET.ER 600 MG PO ×2 (08:13→21:51)
[2021-10-23] MEDS: Nicotine 14 MG PATCH.TD24 TRANSDERMA (08:14)
[2021-10-23] MEDS: polyethylene glycoL 3350 17 GM POWD.PACK PO (08:34)
[2021-10-23 09:05] VITALS: BP 103/50; PULSE 91; RESP 18; TEMP 36.3; O2SAT 97
--- NOTE | 2021-10-23 09:20 | P.PNPSI_ITS ---
Subjective Subjective Date of Service: 10/23/21 Reason For Visit: Major depression, recurrent severe; PTSD Subjective Notes: Conditional Voluntary Healthcare Proxy: No Guardianship: No Medical Problems Affecting Mental Status: No Interim History: Sandi reports feeling ready to increase her independence with unlocked rest room status. Believes she will be able to come to team if feeling unsafe. Overall states she is feeling stronger and more confident. Still describes little understanding into how her mood and thought process will shift to feeling endangered without precipitant. Discussed sensory indicators and non descript trigger precipitants. Medication Compliance: Yes Side effects from medications: No Attending Groups: Yes Review of Systems Acute medical concerns: No Medical Review of Systems: unchanged Review of Systems Psychiatric: Reports anxiety, Reports depression, Reports anhedonia and Reports suicidal ideation (intermittent, without precipitant) Mental Status Exam Mental Status Exam Patient Appearance: Appropriate Patient Orientation: Person, Place, Time and Situation Level of Consciousness: Alert Patient Behavior: Appropriate, Talkative, Cooperative and Good Eye Contact Mood Description: Flat Affect Description: Flat Patient Cognition Impaired: No Ability to Follow Directions: Good Speech Pattern: Spontaneous Speech Memory Description: Intact Hallucinations: None Delusions: Not Present Perceptual Disturbances: Depersonalization and Derealization Thought Process: Intact and Goal Oriented Thought Content: positive for Intact, positive for Goal Oriented and positive for Suicidal Ideation (intermittent and without precipitant at times) Depressive Symptoms: Thoughts of /Suicide (intermittent and without precipitant at times) Judgement: Good Diagnostics Vital Signs (24Hr): Vital Signs - 24 hr 10/22/21 10:35 10/22/21 18:00 10/23/21 09:05 Temperature 98.0 F 98.3 F 97.3 F Pulse Rate 101 H 101 H 91 Respiratory Rate 18 16 18 Blood Pressure 125/67 122/79 103/50 L Pulse Oximetry 96 99 97 Oxygen Delivery Method Room Air Room Air Room Air BMI result Body Mass Index 56.2 Labs Results: 10/05/21 17:52 10/05/21 17:52 Medications Medications Current Medications Acetaminophen (Acetaminophen 325 Mg Tablet) 650 mg PO Q6H PRN PRN Reason: Headache/Pain Mild Scale (1-3) Last Admin: 10/22/21 09:28 Dose: 650 mg Al Hydroxide/Mg Hydroxide (Magnesium Hydrox/Alum Hydrox 30 Ml Oral.Susp) 30 ml PO Q6H PRN PRN Reason: Heartburn/Nausea Alprazolam (Alprazolam 0.5 Mg Tablet) 1 mg PO QID PRN PRN Reason: anxiety Last Admin: 10/23/21 08:13 Dose: 1 mg Amphetamine/Dextroamphetamine (Amphetamine Mixed Salts 20 Mg Tablet) 20 mg PO DAILY [facility] Last Admin: 10/23/21 08:13 Dose: 20 mg Benztropine Mesylate (Benztropine Mesylate 0.5 Mg Tablet) 0.5 mg PO BID [facility] Last Admin: 10/23/21 08:13 Dose: 0.5 mg Cyanocobalamin (Cyanocobalamin (Vitamin B-12) 100 Mcg Tablet) 100 mcg PO DAILY [facility] Last Admin: 10/23/21 08:13 Dose: 100 mcg Docusate Sodium (Docusate Sodium 100 Mg Capsule) 100 mg PO BID [facility] Last Admin: 10/23/21 08:13 Dose: 100 mg Fluticasone Propionate (Fluticasone Propionate Nasal 16 Gm [place]) 1 - 2 spray NOSTRIL-B DAILY [facility] Last Admin: 10/23/21 08:12 Dose: 1 spray Haloperidol (Haloperidol 5 Mg Tablet) 10 mg PO BID PRN PRN Reason: si, agitation Last Admin: 10/22/21 16:29 Dose: 10 mg Hydroxyzine HCl (Hydroxyzine Hcl 25 Mg Tablet) 25 mg PO Q6H PRN PRN Reason: Anxiety Last Admin: 10/13/21 08:39 Dose: 25 mg [place] Carbonate ([place] Carbonate Er 300 Mg Tablet.Er) 600 mg PO BID [facility] Last Admin: 10/23/21 08:13 Dose: 600 mg Magnesium Hydroxide (Milk Of Magnesia 30 Ml Oral.Susp) 30 ml PO DAILY PRN PRN Reason: Constipation Last Admin: 10/19/21 15:13 Dose: 30 ml Melatonin (Melatonin 3 Mg Tablet) 9 mg PO BEDTIME [facility] Last Admin: 10/22/21 20:32 Dose: 9 mg Nicotine (Nicotine 14 Mg Patch.Td24) 14 mg TRANSDERMA DAILY [facility] Last Admin: 10/23/21 08:14 Dose: 14 mg Nicotine Polacrilex (Nicotine Polacrilex 2 Mg Gum) 2 mg BUCCAL Q2H PRN PRN Reason: nicotine withdrawal Last Admin: 10/15/21 16:12 Dose: 2 mg Pt Own Med ( Desvenlafaxine 100 Mg Tablet Extended Release 24 Hr) 100 mg PO DAILY [facility] Last Admin: 10/23/21 08:13 Dose: 100 mg Olanzapine (Olanzapine 7.5 Mg Tablet) 7.5 mg PO TID PRN PRN Reason: Anxiety Last Admin: 10/23/21 08:13 Dose: 7.5 mg Polyethylene Glycol (Polyethylene Glycol 3350 17 Gm Powd.Pack) 17 gm PO DAILY [facility] Last Admin: 10/23/21 08:34 Dose: 17 gm Prazosin HCl 10 mg/ Prazosin (HCl 4 mg) 14 mg PO BEDTIME [facility] Last Admin: 10/22/21 20:29 Dose: 14 mg Saliva Substitute (Dry Mouth [place] 60 Ml [place]) 1 spray MUCOUS MEM Q2H PRN PRN Reason: Dry Mouth Last Admin: 10/23/21 08:12 Dose: 1 spray Thiamine HCl (Thiamine Hcl 100 Mg Tablet) 100 mg PO DAILY [facility] Last Admin: 10/23/21 08:13 Dose: 100 mg Trazodone HCl (Trazodone Hcl 100 Mg Tablet) 200 mg PO BEDTIME [facility] Last Admin: 10/22/21 20:31 Dose: 200 mg Vitamin D (Cholecalciferol (Vitamin D3) 25 Mcg Tablet) 50 mcg PO DAILY [facility] Last Admin: 10/23/21 08:13 Dose: 50 mcg Allergies Allergies Allergy/AdvReac Type Severity Reaction Status Date / Time Sulfa (Sulfonamide Allergy Unknown HIVES Verified 03/15/21 14:13 Antibiotics) [SULFA (SULFONAMIDE ANTIBIOTICS)] sulfamethoxazole Allergy Unknown HIVES Verified 03/15/21 14:13 [From BACTRIM] trimethoprim [From BACTRIM] Allergy Unknown HIVES Verified 03/15/21 14:13 oseltamivir [From Tamiflu] AdvReac Sensation Verified 09/29/21 11:20 of bugs crawling on skin. Assessment & Plan Assessment & Plan (1) MDD (major depressive disorder), recurrent severe, without psychosis: Status: Acute Code(s): F33.2 - Major depressive disorder, recurrent severe without psychotic features (2) PTSD (post-traumatic stress disorder): Status: Acute Code(s): F43.10 - Post-traumatic stress disorder, unspecified (3) Suicidal ideation: Status: Acute Code(s): R45.851 - Suicidal ideations Plan 36 yo non-binary individual, prefers they them pronouns, presents with active SI, SIBS, several plans to self-harm in the context of the anniversary of the loss of a child she planned to co-parent who was still born. Pt able to surrender a rope she made in the ER from clothing and agrees to one to one specialing to assist with management of her safety needs until she is able to manage with more independence. Pt reports an increase in sleep, decrease in functioning, unable to attend treatment activities, and constant thoughts of and dying-several plans for suicide including to head bang so severely she will fall asleep and never awaken. Plan pt on 1:1 for safety B12 supplement as levels are low TSH, FT4 One to One Special Increase Olanzpaine to 7.5 mg prn-pt plans to take this bid Full milieu involvement to process this anniversary of her loss 10/09/21 Continue current regime. 10/10 continue current regimen 10/10 continue current regimen 10/13/21 Continue current plan. 10/14/21 Continue current regime 10/16/21 Continue current regime Bilateral pedal edema-compression socks, encourage elevation, albumin level Change metamucil to a.m. per pt request Vit B12 daily (cyanocobalamin) 10/17/21 feeling a little better and less urges to self-harm; needs to remain on one-to-one though since she is not quite ready for safety 10/18/21 continues to feel closer towards safety and no longer needing a one-to-o ne; however wants to discuss this with Mildred Albrecht before coming off 10/19/21 Discussion of discontinuation of one to one. Will trial beginning on the retail shift supervisor. Change to 5 minute checks. Sandi states is able to let the team know if she is feeling unsafe. 10/21/21: Continue current regime 10/22/21: Continue current regime 10/23/21: Contineu current plan of care I spent minutes with the patient and/or on the patient floor today, greater than?50% of which was spent counseling/coordinating care. Patient educated on: therapeutic strategies Informed Consent: understands and further education needed Reason for contiued inpatient stay Substantial Risk for: harm to self and rapid decompensation
[2021-10-23 21:49] VITALS: BP 140/70; PULSE 100; RESP 16; TEMP 36.7; O2SAT 96
[2021-10-23] MEDS: Melatonin 3 MG TABLET 9 MG PO (21:50)
[2021-10-23] MEDS: traZODone HCL 100 MG TABLET 200 MG PO (21:50)
[2021-10-23] MEDS: PRAZOSIN HCL 14 MG PO (21:52)
[2021-10-24] MEDS: Dry Mouth Spray 60 ML SPRAY 1 SPRAY MUCOUS MEM (08:27)
[2021-10-24] MEDS: Benztropine Mesylate 0.5 MG TABLET PO ×2 (08:27→21:35)
[2021-10-24] MEDS: Docusate Sodium 100 MG CAPSULE PO ×2 (08:27→21:23)
[2021-10-24] MEDS: ALPRAZolam 0.5 MG TABLET 1 MG PO ×3 (08:27→21:25)
[2021-10-24] MEDS: Amphetamine Mixed Salts 20 MG TABLET PO (08:27)
[2021-10-24] MEDS: Lithium Carbonate ER 300 MG TABLET.ER 600 MG PO ×2 (08:27→21:23)
[2021-10-24] MEDS: Fluticasone Propionate Nasal 16 GM SPRAY NOSTRIL-B (08:27)
[2021-10-24] MEDS: polyethylene glycoL 3350 17 GM POWD.PACK PO (08:27)
[2021-10-24] MEDS: Thiamine HCL 100 MG TABLET PO (08:27)
[2021-10-24] MEDS: Cyanocobalamin (Vitamin B-12) 100 MCG TABLET PO (08:27)
[2021-10-24] MEDS: Nicotine 14 MG PATCH.TD24 TRANSDERMA (08:28)
[2021-10-24] MEDS: Cholecalciferol (Vitamin D3) 25 MCG TABLET 50 MCG PO (08:28)
[2021-10-24] MEDS: OLANZapine 7.5 MG TABLET PO ×3 (08:28→21:25)
[2021-10-24 08:31] VITALS: BP 119/61; PULSE 94; RESP 18; TEMP 36.4; O2SAT 97
--- NOTE | 2021-10-24 11:50 | HO.PSYCHPN ---
Subjective Subjective Date of Service: 10/24/21 Reason For Visit: Major depression, recurrent severe; PTSD Subjective Notes: Conditional Voluntary Healthcare Proxy: No Guardianship: No Medical Problems Affecting Mental Status: No Interim History: Patient was seen and discussed in rounds today. Records and plans were reviewed. They doing better and is having less intrusive thoughts. They have also been doing well with the current plans, allowing them more independence and allowing them to utilize support when needed. They are no longer on one-to-one level of observation: No changes were made today. Eating and sleeping adequately Review of Systems Psychiatric: Reports anxiety, Reports depression, Reports anhedonia and Reports suicidal ideation (intermittent, without precipitant) Diagnostics Vital Signs (24Hr): Vital Signs - 24 hr 10/23/21 21:49 10/24/21 08:31 Temperature 98.1 F 97.6 F Pulse Rate 100 94 Respiratory Rate 16 18 Blood Pressure 140/70 H 119/61 Pulse Oximetry 96 97 Oxygen Delivery Method Room Air Room Air BMI result Body Mass Index 56.2 Labs Results: 10/05/21 17:52 10/05/21 17:52 Medications Medications Current Medications Acetaminophen (Acetaminophen 325 Mg Tablet) 650 mg PO Q6H PRN PRN Reason: Headache/Pain Mild Scale (1-3) Last Admin: 10/22/21 09:28 Dose: 650 mg Al Hydroxide/Mg Hydroxide (Magnesium Hydrox/Alum Hydrox 30 Ml Oral.Susp) 30 ml PO Q6H PRN PRN Reason: Heartburn/Nausea Alprazolam (Alprazolam 0.5 Mg Tablet) 1 mg PO QID PRN PRN Reason: anxiety Last Admin: 10/24/21 08:27 Dose: 1 mg Amphetamine/Dextroamphetamine (Amphetamine Mixed Salts 20 Mg Tablet) 20 mg PO DAILY [facility] Last Admin: 10/24/21 08:27 Dose: 20 mg Benztropine Mesylate (Benztropine Mesylate 0.5 Mg Tablet) 0.5 mg PO BID [facility] Last Admin: 10/24/21 08:27 Dose: 0.5 mg Cyanocobalamin (Cyanocobalamin (Vitamin B-12) 100 Mcg Tablet) 100 mcg PO DAILY [facility] Last Admin: 10/24/21 08:27 Dose: 100 mcg Docusate Sodium (Docusate Sodium 100 Mg Capsule) 100 mg PO BID [facility] Last Admin: 10/24/21 08:27 Dose: 100 mg Fluticasone Propionate (Fluticasone Propionate Nasal 16 Gm [place]) 1 - 2 spray NOSTRIL-B DAILY [facility] Last Admin: 10/24/21 08:27 Dose: 1 spray Haloperidol (Haloperidol 5 Mg Tablet) 10 mg PO BID PRN PRN Reason: si, agitation Last Admin: 10/22/21 16:29 Dose: 10 mg Hydroxyzine HCl (Hydroxyzine Hcl 25 Mg Tablet) 25 mg PO Q6H PRN PRN Reason: Anxiety Last Admin: 10/13/21 08:39 Dose: 25 mg [place] Carbonate ([place] Carbonate Er 300 Mg Tablet.Er) 600 mg PO BID [facility] Last Admin: 10/24/21 08:27 Dose: 600 mg Magnesium Hydroxide (Milk Of Magnesia 30 Ml Oral.Susp) 30 ml PO DAILY PRN PRN Reason: Constipation Last Admin: 10/19/21 15:13 Dose: 30 ml Melatonin (Melatonin 3 Mg Tablet) 9 mg PO BEDTIME [facility] Last Admin: 10/23/21 21:50 Dose: 9 mg Nicotine (Nicotine 14 Mg Patch.Td24) 14 mg TRANSDERMA DAILY [facility] Last Admin: 10/24/21 08:28 Dose: 14 mg Nicotine Polacrilex (Nicotine Polacrilex 2 Mg Gum) 2 mg BUCCAL Q2H PRN PRN Reason: nicotine withdrawal Last Admin: 10/15/21 16:12 Dose: 2 mg Pt Own Med ( Desvenlafaxine 100 Mg Tablet Extended Release 24 Hr) 100 mg PO DAILY [facility] Last Admin: 10/24/21 08:25 Dose: 100 mg Olanzapine (Olanzapine 7.5 Mg Tablet) 7.5 mg PO TID PRN PRN Reason: Anxiety Last Admin: 10/24/21 08:28 Dose: 7.5 mg Polyethylene Glycol (Polyethylene Glycol 3350 17 Gm Powd.Pack) 17 gm PO DAILY [facility] Last Admin: 10/24/21 08:27 Dose: 17 gm Prazosin HCl 10 mg/ Prazosin (HCl 4 mg) 14 mg PO BEDTIME [facility] Last Admin: 10/23/21 21:52 Dose: 14 mg Saliva Substitute (Dry Mouth [place] 60 Ml [place]) 1 spray MUCOUS MEM Q2H PRN PRN Reason: Dry Mouth Last Admin: 10/24/21 08:27 Dose: 1 spray Thiamine HCl (Thiamine Hcl 100 Mg Tablet) 100 mg PO DAILY [facility] Last Admin: 10/24/21 08:27 Dose: 100 mg Trazodone HCl (Trazodone Hcl 100 Mg Tablet) 200 mg PO BEDTIME [facility] Last Admin: 10/23/21 21:50 Dose: 200 mg Vitamin D (Cholecalciferol (Vitamin D3) 25 Mcg Tablet) 50 mcg PO DAILY [facility] Last Admin: 10/24/21 08:28 Dose: 50 mcg Allergies Allergies Allergy/AdvReac Type Severity Reaction Status Date / Time Sulfa (Sulfonamide Allergy Unknown HIVES Verified 03/15/21 14:13 Antibiotics) [SULFA (SULFONAMIDE ANTIBIOTICS)] sulfamethoxazole Allergy Unknown HIVES Verified 03/15/21 14:13 [From BACTRIM] trimethoprim [From BACTRIM] Allergy Unknown HIVES Verified 03/15/21 14:13 oseltamivir [From Tamiflu] AdvReac Sensation Verified 09/29/21 11:20 of bugs crawling on skin. Assessment & Plan Assessment & Plan (1) MDD (major depressive disorder), recurrent severe, without psychosis: Status: Acute Code(s): F33.2 - Major depressive disorder, recurrent severe without psychotic features (2) PTSD (post-traumatic stress disorder): Status: Acute Code(s): F43.10 - Post-traumatic stress disorder, unspecified (3) Suicidal ideation: Status: Acute Code(s): R45.851 - Suicidal ideations Plan 36 yo non-binary individual, prefers they them pronouns, presents with active SI, SIBS, several plans to self-harm in the context of the anniversary of the loss of a child she planned to co-parent who was still born. Pt able to surrender a rope she made in the ER from clothing and agrees to one to one specialing to assist with management of her safety needs until she is able to manage with more independence. Pt reports an increase in sleep, decrease in functioning, unable to attend treatment activities, and constant thoughts of and dying-several plans for suicide including to head bang so severely she will fall asleep and never awaken. Plan pt on 1:1 for safety B12 supplement as levels are low TSH, FT4 One to One Special Increase Olanzpaine to 7.5 mg prn-pt plans to take this bid Full milieu involvement to process this anniversary of her loss 10/09/21 Continue current regime. 10/10 continue current regimen 10/10 continue current regimen 10/13/21 Continue current plan. 10/14/21 Continue current regime 10/16/21 Continue current regime Bilateral pedal edema-compression socks, encourage elevation, albumin level Change metamucil to a.m. per pt request Vit B12 daily (cyanocobalamin) 10/17/21 feeling a little better and less urges to self-harm; needs to remain on one-to-one though since she is not quite ready for safety 10/18/21 continues to feel closer towards safety and no longer needing a one-to-one; however wants to discuss this with Mildred Albrecht before coming off 10/19/21 Discussion of discontinuation of one to one. Will trial beginning on the pharmacy graduate intern. Change to 5 minute checks. Sandi states is able to let the team know if she is feeling unsafe. 10/21/21: Continue current regime 10/22/21: Continue current regime 10/23/21: Contineu current plan of care 10/24: Continue current regimen and plans I spent minutes with the patient and/or on the patient floor today, greater than?50% of which was spent counseling/coordinating care. Reason for contiued inpatient stay Substantial Risk for: med/psych decompensation
[2021-10-24 17:05] VITALS: BP 169/87; PULSE 94; RESP 20; TEMP 36.6; O2SAT 97
[2021-10-24] MEDS: PRAZOSIN HCL 14 MG PO (21:22)
[2021-10-24] MEDS: Melatonin 3 MG TABLET 9 MG PO (21:23)
[2021-10-24] MEDS: traZODone HCL 100 MG TABLET 200 MG PO (21:23)
[2021-10-25 06:00] VITALS: BP 138/90; PULSE 104; RESP 20; TEMP 36.5; O2SAT 97
--- NOTE | 2021-10-25 08:17 | P.PNPSI_ITS ---
Subjective Subjective Date of Service: 10/25/21 Reason For Visit: Major depression, recurrent severe; PTSD Subjective Notes: Conditional Voluntary Healthcare Proxy: No Guardianship: No Medical Problems Affecting Mental Status: No Interim History: Patient was seen and discussed in rounds today. Records and plans were reviewed. They have been stable and are doing better. They continue to feel level of stress because of the acuity of the unit. They have been social and interactive. Moderate anxiety still present. Eating and sleeping adequately. No complaints or side effects. They have been med compliant. No changes were made today Mental Status Exam Mental Status Exam Patient Appearance: Appropriate Patient Orientation: Person, Place, Time and Situation Level of Consciousness: Alert Patient Behavior: Appropriate, Talkative, Cooperative and Good Eye Contact Mood Description: Flat Affect Description: Flat Patient Cognition Impaired: No Ability to Follow Directions: Good Speech Pattern: Spontaneous Speech Memory Description: Intact Hallucinations: None Delusions: Not Present Perceptual Disturbances: Depersonalization and Derealization Thought Process: Intact and Goal Oriented Thought Content: positive for Intact, positive for Goal Oriented and positive for Suicidal Ideation (intermittent and without precipitant at times) Depressive Symptoms: Thoughts of /Suicide (intermittent and without precipitant at times) Judgement: Good Diagnostics Vital Signs (24Hr): Vital Signs - 24 hr 10/24/21 08:31 10/24/21 17:05 Temperature 97.6 F 97.8 F Pulse Rate 94 94 Respiratory Rate 18 20 Blood Pressure 119/61 169/87 H Pulse Oximetry 97 97 Oxygen Delivery Method Room Air Room Air BMI result Body Mass Index 56.2 Labs Results: 10/05/21 17:52 10/05/21 17:52 Medications Medications Current Medications Acetaminophen (Acetaminophen 325 Mg Tablet) 650 mg PO Q6H PRN PRN Reason: Headache/Pain Mild Scale (1-3) Last Admin: 10/22/21 09:28 Dose: 650 mg Al Hydroxide/Mg Hydroxide (Magnesium Hydrox/Alum Hydrox 30 Ml Oral.Susp) 30 ml PO Q6H PRN PRN Reason: Heartburn/Nausea Alprazolam (Alprazolam 0.5 Mg Tablet) 1 mg PO QID PRN PRN Reason: anxiety Last Admin: 10/24/21 21:25 Dose: 1 mg Amphetamine/Dextroamphetamine (Amphetamine Mixed Salts 20 Mg Tablet) 20 mg PO DAILY [facility] Last Admin: 10/24/21 08:27 Dose: 20 mg Benztropine Mesylate (Benztropine Mesylate 0.5 Mg Tablet) 0.5 mg PO BID [facility] Last Admin: 10/24/21 21:35 Dose: 0.5 mg Cyanocobalamin (Cyanocobalamin (Vitamin B-12) 100 Mcg Tablet) 100 mcg PO DAILY [facility] Last Admin: 10/24/21 08:27 Dose: 100 mcg Docusate Sodium (Docusate Sodium 100 Mg Capsule) 100 mg PO BID [facility] Last Admin: 10/24/21 21:23 Dose: 100 mg Fluticasone Propionate (Fluticasone Propionate Nasal 16 Gm [place]) 1 - 2 spray NOSTRIL-B DAILY [facility] Last Admin: 10/24/21 08:27 Dose: 1 spray Haloperidol (Haloperidol 5 Mg Tablet) 10 mg PO BID PRN PRN Reason: si, agitation Last Admin: 10/22/21 16:29 Dose: 10 mg Hydroxyzine HCl (Hydroxyzine Hcl 25 Mg Tablet) 25 mg PO Q6H PRN PRN Reason: Anxiety Last Admin: 10/13/21 08:39 Dose: 25 mg [place] Carbonate ([place] Carbonate Er 300 Mg Tablet.Er) 600 mg PO BID [facility] Last Admin: 10/24/21 21:23 Dose: 600 mg Magnesium Hydroxide (Milk Of Magnesia 30 Ml Oral.Susp) 30 ml PO DAILY PRN PRN Reason: Constipation Last Admin: 10/19/21 15:13 Dose: 30 ml Melatonin (Melatonin 3 Mg Tablet) 9 mg PO BEDTIME [facility] Last Admin: 10/24/21 21:23 Dose: 9 mg Nicotine (Nicotine 14 Mg Patch.Td24) 14 mg TRANSDERMA DAILY [facility] Last Admin: 10/24/21 08:28 Dose: 14 mg Nicotine Polacrilex (Nicotine Polacrilex 2 Mg Gum) 2 mg BUCCAL Q2H PRN PRN Reason: nicotine withdrawal Last Admin: 10/15/21 16:12 Dose: 2 mg Pt Own Med ( Desvenlafaxine 100 Mg Tablet Extended Release 24 Hr) 100 mg PO DAILY [facility] Last Admin: 10/24/21 08:25 Dose: 100 mg Olanzapine (Olanzapine 7.5 Mg Tablet) 7.5 mg PO TID PRN PRN Reason: Anxiety Last Admin: 10/24/21 21:25 Dose: 7.5 mg Polyethylene Glycol (Polyethylene Glycol 3350 17 Gm Powd.Pack) 17 gm PO DAILY [facility] Last Admin: 10/24/21 08:27 Dose: 17 gm Prazosin HCl 10 mg/ Prazosin (HCl 4 mg) 14 mg PO BEDTIME [facility] Last Admin: 10/24/21 21:22 Dose: 14 mg Saliva Substitute (Dry Mouth [place] 60 Ml [place]) 1 spray MUCOUS MEM Q2H PRN PRN Reason: Dry Mouth Last Admin: 10/24/21 08:27 Dose: 1 spray Thiamine HCl (Thiamine Hcl 100 Mg Tablet) 100 mg PO DAILY [facility] Last Admin: 10/24/21 08:27 Dose: 100 mg Trazodone HCl (Trazodone Hcl 100 Mg Tablet) 200 mg PO BEDTIME [facility] Last Admin: 10/24/21 21:23 Dose: 200 mg Vitamin D (Cholecalciferol (Vitamin D3) 25 Mcg Tablet) 50 mcg PO DAILY [facility] Last Admin: 10/24/21 08:28 Dose: 50 mcg Allergies Allergies Allergy/AdvReac Type Severity Reaction Status Date / Time Sulfa (Sulfonamide Allergy Unknown HIVES Verified 03/15/21 14:13 Antibiotics) [SULFA (SULFONAMIDE ANTIBIOTICS)] sulfamethoxazole Allergy Unknown HIVES Verified 03/15/21 14:13 [From BACTRIM] trimethoprim [From BACTRIM] Allergy Unknown HIVES Verified 03/15/21 14:13 oseltamivir [From Tamiflu] AdvReac Sensation Verified 09/29/21 11:20 of bugs crawling on skin. Assessment & Plan Assessment & Plan (1) MDD (major depressive disorder), recurrent severe, without psychosis: Status: Acute Code(s): F33.2 - Major depressive disorder, recurrent severe without psychotic features (2) PTSD (post-traumatic stress disorder): Status: Acute Code(s): F43.10 - Post-traumatic stress disorder, unspecified (3) Suicidal ideation: Status: Acute Code(s): R45.851 - Suicidal ideations Plan 36 yo non-binary individual, prefers they them pronouns, presents with active SI, SIBS, several plans to self-harm in the context of the anniversary of the loss of a child she planned to co-parent who was still born. Pt able to surrender a rope she made in the ER from clothing and agrees to one to one specialing to assist with management of her safety needs until she is able to manage with more independence. Pt reports an increase in sleep, decrease in functioning, unable to attend treatment activities, and constant thoughts of and dying-several plans for suicide including to head bang so severely she will fall asleep and never awaken. Plan pt on 1:1 for safety B12 supplement as levels are low TSH, FT4 One to One Special Increase Olanzpaine to 7.5 mg prn-pt plans to take this bid Full milieu involvement to process this anniversary of her loss 10/09/21 Continue current regime. 10/10 continue current regimen 10/10 continue current regimen 10/13/21 Continue current plan. 10/14/21 Continue current regime 10/16/21 Continue current regime Bilateral pedal edema-compression socks, encourage elevation, a lbumin level Change metamucil to a.m. per pt request Vit B12 daily (cyanocobalamin) 10/17/21 feeling a little better and less urges to self-harm; needs to remain on one-to-one though since she is not quite ready for safety 10/18/21 continues to feel closer towards safety and no longer needing a one-to-one; however wants to discuss this with Mildred Albrecht before coming off 10/19/21 Discussion of discontinuation of one to one. Will trial beginning on the concrete products machine operator. Change to 5 minute checks. Sandi states is able to let the team know if she is feeling unsafe. 10/21/21: Continue current regime 10/22/21: Continue current regime 10/23/21: Contineu current plan of care 10/24: Continue current regimen and plans 10/25: Continue current plans and regimen I spent minutes with the patient and/or on the patient floor today, greater than?50% of which was spent counseling/coordinating care. Reason for contiued inpatient stay Substantial Risk for: med/psych decompensation
[2021-10-25] MEDS: Benztropine Mesylate 0.5 MG TABLET PO ×2 (08:54→21:21)
[2021-10-25] MEDS: Amphetamine Mixed Salts 20 MG TABLET PO (08:54)
[2021-10-25] MEDS: Lithium Carbonate ER 300 MG TABLET.ER 600 MG PO ×2 (08:54→21:20)
[2021-10-25] MEDS: Cyanocobalamin (Vitamin B-12) 100 MCG TABLET PO (08:55)
[2021-10-25] MEDS: Docusate Sodium 100 MG CAPSULE PO ×2 (08:55→21:22)
[2021-10-25] MEDS: Thiamine HCL 100 MG TABLET PO (08:55)
[2021-10-25] MEDS: Cholecalciferol (Vitamin D3) 25 MCG TABLET 50 MCG PO (08:56)
[2021-10-25] MEDS: polyethylene glycoL 3350 17 GM POWD.PACK PO (08:57)
[2021-10-25] MEDS: Fluticasone Propionate Nasal 16 GM SPRAY NOSTRIL-B (08:59)
[2021-10-25] MEDS: Nicotine Polacrilex 2 MG GUM BUCCAL ×2 (11:11→18:30)
[2021-10-25] MEDS: OLANZapine 7.5 MG TABLET PO ×2 (16:29→21:23)
[2021-10-25 16:37] VITALS: BP 167/86; PULSE 94; RESP 20; TEMP 36.8; O2SAT 97
[2021-10-25] MEDS: ALPRAZolam 0.5 MG TABLET 1 MG PO ×2 (16:45→21:21)
[2021-10-25 21:13] VITALS: BP 136/85; PULSE 113; TEMP 36.5
[2021-10-25] MEDS: PRAZOSIN HCL 14 MG PO (21:18)
[2021-10-25] MEDS: traZODone HCL 100 MG TABLET 200 MG PO (21:21)
[2021-10-25] MEDS: Melatonin 3 MG TABLET 9 MG PO (21:21)
[2021-10-26] MEDS: Amphetamine Mixed Salts 20 MG TABLET PO (08:57)
[2021-10-26] MEDS: Thiamine HCL 100 MG TABLET PO (08:57)
[2021-10-26] MEDS: Fluticasone Propionate Nasal 16 GM SPRAY NOSTRIL-B (08:57)
[2021-10-26] MEDS: Benztropine Mesylate 0.5 MG TABLET PO ×2 (08:57→20:44)
[2021-10-26] MEDS: Docusate Sodium 100 MG CAPSULE PO ×2 (08:57→20:41)
[2021-10-26] MEDS: Lithium Carbonate ER 300 MG TABLET.ER 600 MG PO ×2 (08:57→20:43)
[2021-10-26] MEDS: Cyanocobalamin (Vitamin B-12) 100 MCG TABLET PO (08:58)
[2021-10-26] MEDS: Cholecalciferol (Vitamin D3) 25 MCG TABLET 50 MCG PO (08:58)
[2021-10-26] MEDS: polyethylene glycoL 3350 17 GM POWD.PACK PO (08:58)
[2021-10-26] MEDS: OLANZapine 7.5 MG TABLET PO ×2 (09:01→20:44)
[2021-10-26] MEDS: ALPRAZolam 0.5 MG TABLET 1 MG PO ×2 (09:01→20:44)
--- NOTE | 2021-10-26 20:00 | HO.PSYCHPN ---
Subjective Subjective Date of Service: 10/26/21 Reason For Visit: Major depression, recurrent severe; PTSD Subjective Notes: Conditional Voluntary Healthcare Proxy: No Guardianship: No Medical Problems Affecting Mental Status: No Interim History: Pt reports she is feeling prepared to discharge to [facility] (Intake is 10/27/21). Reports anxiety as milieu has been triggering, which she reports is a clarification that she is ready for a return to her home environment. Believes if she becomes unsafe she will be able to reach out to others for assistance. Will plan for discharge to [facility] Intake on 09/27. Medication Compliance: Yes Side effects from medications: No Attending Groups: Yes Review of Systems Acute medical concerns: No Will do labs when pt is in [facility] to prepare for out pt psychopharm appt. Medical Review of Systems: unchanged Review of Systems Psychiatric: Reports anxiety, Reports depression and Reports suicidal ideation (chronic- believes she will be able to reach out and ask for help if needed) Mental Status Exam Mental Status Exam Patient Appearance: Appropriate Patient Orientation: Person, Place, Time and Situation Level of Consciousness: Alert Patient Behavior: Appropriate, Talkative and Good Eye Contact Mood Description: Anxious Affect Description: Flat Patient Cognition Impaired: No Ability to Follow Directions: Good Speech Pattern: Spontaneous Speech Memory Description: Intact Hallucinations: None Delusions: Not Present Perceptual Disturbances: Depersonalization and Derealization Thought Process: Goal Oriented Thought Content: positive for Goal Oriented Depressive Symptoms: Increased Anxiety and Thoughts of /Suicide (believes she will be able to ask for help as needed.) Judgement: Good Diagnostics Vital Signs (24Hr): Vital Signs - 24 hr 10/25/21 21:13 Temperature 97.7 F Pulse Rate 113 H Blood Pressure 136/85 BMI result Body Mass Index 56.2 Labs Results: 10/05/21 17:52 10/05/21 17:52 Medications Medications Current Medications Acetaminophen (Acetaminophen 325 Mg Tablet) 650 mg PO Q6H PRN PRN Reason: Headache/Pain Mild Scale (1-3) Last Admin: 10/22/21 09:28 Dose: 650 mg Al Hydroxide/Mg Hydroxide (Magnesium Hydrox/Alum Hydrox 30 Ml Oral.Susp) 30 ml PO Q6H PRN PRN Reason: Heartburn/Nausea Alprazolam (Alprazolam 0.5 Mg Tablet) 1 mg PO QID PRN PRN Reason: Anxiety Last Admin: 10/26/21 09:01 Dose: 1 mg Amphetamine/Dextroamphetamine (Amphetamine Mixed Salts 20 Mg Tablet) 20 mg PO DAILY [facility] Last Admin: 10/26/21 08:57 Dose: 20 mg Benztropine Mesylate (Benztropine Mesylate 0.5 Mg Tablet) 0.5 mg PO BID [facility] Last Admin: 10/26/21 08:57 Dose: 0.5 mg Cyanocobalamin (Cyanocobalamin (Vitamin B-12) 100 Mcg Tablet) 100 mcg PO DAILY [facility] Last Admin: 10/26/21 08:58 Dose: 100 mcg Docusate Sodium (Docusate Sodium 100 Mg Capsule) 100 mg PO BID [facility] Last Admin: 10/26/21 08:57 Dose: 100 mg Fluticasone Propionate (Fluticasone Propionate Nasal 16 Gm [place]) 1 - 2 spray NOSTRIL-B DAILY [facility] Last Admin: 10/26/21 08:57 Dose: 1 spray Haloperidol (Haloperidol 5 Mg Tablet) 10 mg PO BID PRN PRN Reason: si, agitation Last Admin: 10/22/21 16:29 Dose: 10 mg Hydroxyzine HCl (Hydroxyzine Hcl 25 Mg Tablet) 25 mg PO Q6H PRN PRN Reason: Anxiety Last Admin: 10/13/21 08:39 Dose: 25 mg [place] Carbonate ([place] Carbonate Er 300 Mg Tablet.Er) 600 mg PO BID [facility] Last Admin: 10/26/21 08:57 Dose: 600 mg Magnesium Hydroxide (Milk Of Magnesia 30 Ml Oral.Susp) 30 ml PO DAILY PRN PRN Reason: Constipation Last Admin: 10/19/21 15:13 Dose: 30 ml Melatonin (Melatonin 3 Mg Tablet) 9 mg PO BEDTIME [facility] Last Admin: 10/25/21 21:21 Dose: 9 mg Nicotine (Nicotine 14 Mg Patch.Td24) 14 mg TRANSDERMA DAILY [facility] Last Admin: 10/26/21 09:02 Dose: Not Given Nicotine Polacrilex (Nicotine Polacrilex 2 Mg Gum) 2 mg BUCCAL Q2H PRN PRN Reason: nicotine withdrawal Last Admin: 10/25/21 18:30 Dose: 2 mg Pt Own Med ( Desvenlafaxine 100 Mg Tablet Extended Release 24 Hr) 100 mg PO DAILY [facility] Last Admin: 10/26/21 08:57 Dose: 100 mg Olanzapine (Olanzapine 7.5 Mg Tablet) 7.5 mg PO TID PRN PRN Reason: Anxiety Last Admin: 10/26/21 09:01 Dose: 7.5 mg Polyethylene Glycol (Polyethylene Glycol 3350 17 Gm Powd.Pack) 17 gm PO DAILY [facility] Last Admin: 10/26/21 08:58 Dose: 17 gm Prazosin HCl 10 mg/ Prazosin (HCl 4 mg) 14 mg PO BEDTIME [facility] Last Admin: 10/25/21 21:18 Dose: 14 mg Saliva Substitute (Dry Mouth [place] 60 Ml [place]) 1 spray MUCOUS MEM Q2H PRN PRN Reason: Dry Mouth Last Admin: 10/24/21 08:27 Dose: 1 spray Thiamine HCl (Thiamine Hcl 100 Mg Tablet) 100 mg PO DAILY [facility] Last Admin: 10/26/21 08:57 Dose: 100 mg Trazodone HCl (Trazodone Hcl 100 Mg Tablet) 200 mg PO BEDTIME [facility] Last Admin: 10/25/21 21:21 Dose: 200 mg Vitamin D (Cholecalciferol (Vitamin D3) 25 Mcg Tablet) 50 mcg PO DAILY [facility] Last Admin: 10/26/21 08:58 Dose: 50 mcg Allergies Allergies Allergy/AdvReac Type Severity Reaction Status Date / Time Sulfa (Sulfonamide Allergy Unknown HIVES Verified 03/15/21 14:13 Antibiotics) [SULFA (SULFONAMIDE ANTIBIOTICS)] sulfamethoxazole Allergy Unknown HIVES Verified 03/15/21 14:13 [From BACTRIM] trimethoprim [From BACTRIM] Allergy Unknown HIVES Verified 03/15/21 14:13 oseltamivir [From Tamiflu] AdvReac Sensation Verified 09/29/21 11:20 of bugs crawling on skin. Assessment & Plan Assessment & Plan (1) MDD (major depressive disorder), recurrent severe, without psychosis: Status: Acute Code(s): F33.2 - Major depressive disorder, recurrent severe without psychotic features (2) PTSD (post-traumatic stress disorder): Status: Acute Code(s): F43.10 - Post-traumatic stress disorder, unspecified (3) Suicidal ideation: Status: Acute Code(s): R45.851 - Suicidal ideations Plan 36 yo non-binary individual, prefers they them pronouns, presents with active SI, SIBS, several plans to self-harm in the context of the anniversary of the loss of a child she planned to co-parent who was still born. Pt able to surrender a rope she made in the ER from clothing and agrees to one to one specialing to assist with management of her safety needs until she is able to manage with more independence. Pt reports an increase in sleep, decrease in functioning, unable to attend treatment activities, and constant thoughts of and dying-several plans for suicide including to head bang so severely she will fall asleep and never awaken. Plan pt on 1:1 for safety B12 supplement as levels are low TSH, FT4 One to One Special Increase Olanzpaine to 7.5 mg prn-pt plans to take this bid Full milieu involvement to process this anniversary of her loss 10/09/21 Continue current regime. 10/10 continue current regimen 10/10 continue current regimen 10/13/21 Continue current plan. 10/14/21 Continue current regime 10/16/21 Continue current regime Bilateral pedal edema-compression socks, encourage elevation, albumin level Change metamucil to a.m. per pt request Vit B12 daily (cyanocobalamin) 10/17/21 feeling a little better and less urges to self-harm; needs to remain on one-to-one though since she is not quite ready for safety 10/18/21 continues to feel closer towards safety and no longer needing a one-to-one; however wants to discuss this with Mildred Albrecht before coming off 10/19/21 Discussion of discontinuation of one to one. Will trial beginning on the evening or night nurse supervisor. Change to 5 minute checks. Sandi states is able to let the team know if she is feeling unsafe. 10/21/21: Continue current regime 10/22/21: Continue current regime 10/23/21: Contineu current plan of care 10/24: Continue current regimen and plans 10/25: Continue current plans and regimen 10/26/21: Discharge 10/27/21. Plans to return for PHP intake upon discharge. I spent minutes with the patient and/or on the patient floor today, greater than?50% of which was spent counseling/coordinating care. Patient educated on: therapeutic strategies Informed Consent: understands Reason for contiued inpatient stay Substantial Risk for: rapid decompensation
[2021-10-26 20:32] VITALS: BP 149/78; PULSE 77; TEMP 36.2
[2021-10-26] MEDS: PRAZOSIN HCL 14 MG PO (20:41)
[2021-10-26] MEDS: hydrOXYzine HCL 25 MG TABLET PO (20:43)
[2021-10-26] MEDS: Melatonin 3 MG TABLET 9 MG PO (20:45)
[2021-10-26] MEDS: traZODone HCL 100 MG TABLET 200 MG PO (20:45)
[2021-10-27] MEDS: Fluticasone Propionate Nasal 16 GM SPRAY NOSTRIL-B (08:43)
[2021-10-27] MEDS: Thiamine HCL 100 MG TABLET PO (08:44)
[2021-10-27] MEDS: Amphetamine Mixed Salts 20 MG TABLET PO (08:44)
[2021-10-27] MEDS: Lithium Carbonate ER 300 MG TABLET.ER 600 MG PO (08:44)
[2021-10-27] MEDS: Cyanocobalamin (Vitamin B-12) 100 MCG TABLET PO (08:44)
[2021-10-27] MEDS: Benztropine Mesylate 0.5 MG TABLET PO (08:44)
[2021-10-27] MEDS: ALPRAZolam 0.5 MG TABLET 1 MG PO (08:44)
[2021-10-27] MEDS: Cholecalciferol (Vitamin D3) 25 MCG TABLET 50 MCG PO (08:44)
[2021-10-27] MEDS: OLANZapine 7.5 MG TABLET PO (08:44)
[2021-10-27] MEDS: Docusate Sodium 100 MG CAPSULE PO (08:44)
--- NOTE | 2021-10-28 09:31 | PM.PSYDC ---
DS: Providers Provider Date of Service: 10/27/21 Date of admission: 10/06/21 13:37 Date of discharge: 10/27/21 Primary care physician: Laura Collins MD Admitting clinician: Orin Johnson Attending physician on admission: Dewayne Azar Attending physician on discharge: Dewayne Azar Discharging clinician: Orin Johnson DS: Diagnosis Discharge Diagnosis (1) MDD (major depressive disorder), recurrent severe, without psychosis: Status: Acute (2) PTSD (post-traumatic stress disorder): Status: Acute (3) Suicidal ideation: Status: Resolved DS: Medications Discharge Medications Home Medications: Home Medications Medication Instructions Recorded Confirmed trazodone 100 mg tablet 200 mg PO BEDTIME 09/29/21 10/05/21 benztropine 0.5 mg tablet 1 tab PO BID 10/05/21 10/05/21 Previous Rx's Medication Instructions Recorded alprazolam 1 mg tablet 1 mg PO QID PRN anxiety 15 days 10/26/21 cholecalciferol (vitamin D3) 25 50 mcg PO DAILY 15 days 10/26/21 mcg (1,000 unit) tablet cyanocobalamin (vitamin B-12) 100 100 mcg PO DAILY #30 tabs 10/26/21 mcg tablet (Vitamin B-12) desvenlafaxine 100 mg 100 mg PO DAILY 30 days #30 tabs 10/26/21 tablet,extended release 24 hr dextroamphetamine-amphetamine 20 20 mg PO DAILY 30 days 10/26/21 mg tablet fluticasone propionate 50 1 - 2 spray intranasal DAILY 30 10/26/21 mcg/actuation nasal days spray,suspension lithium carbonate 300 mg 600 mg PO BID 15 days 10/26/21 tablet,extended release melatonin 3 mg tablet 9 mg PO BEDTIME 15 days 10/26/21 nicotine (polacrilex) 2 mg gum 2 mg buccal Q2H PRN nicotine 10/26/21 withdrawal #40 ea nicotine 14 mg/24 hr daily 14 mg transdermal DAILY #28 ea 10/26/21 transdermal patch olanzapine 7.5 mg tablet 7.5 mg PO TID PRN Anxiety #90 tabs 10/26/21 prazosin 5 mg capsule 14 mg PO BEDTIME 15 days 10/26/21 thiamine mononitrate (vit B1) 100 100 mg PO DAILY 15 days 10/26/21 mg tablet Mental Status Exam Mental Status Exam Narrative: NAD. Normally ambulation. Motor activity calm, posture within normal limits. Patient Appearance: Well Grooomed and Appropriate Patient Orientation: Person, Place, Time and Situation Level of Consciousness: Appropriate Patient Behavior: Appropriate and Cooperative Mood Description: Appropriate and Anxious Affect Description: Appropriate and Anxious Patient Cognition Impaired: No Ability to Follow Directions: Good Speech Pattern: Clear, Appropriate and Coherent Memory Description: Intact Hallucinations: None Delusions: Not Present Thought Process: Intact Thought Content: positive for Intact and positive for Suicidal Ideation (Passive at this time, no intent or plan.) Depressive Symptoms: Loss of Int. in Activity, Hopelessness, Unhappiness and Thoughts of /Suicide Judgement: Fair DS: Summary Hospital Course Hospital Course: Admission to adult psychiatry to address symptoms of exacerbation of PTSD and recurrent severe major depression in the context of this being the one year anniversary of the loss of an Sandi had planned to co-parent with a friend. Medication regime was kept consistent-Olanzapine prn was increased, Haldol/Ativan prn's were added which pt requested and found relief when used. Pt spent time on one to one during her admission as her suicidality was intermittent, intense, overwhelming and confusing as it was without clear rationale in her mind when it occurred. She utilized coping mechanisms, the milieu, art projects and allowed the team to work with her. She plans to attend partial hospital program, looks forward to having a new room-mate (a friend) in December and began to discuss wanting to work with foster children at some point. She was agreeable to [facility] case managment application as well. These future oriented ideas she felt were very positive in assisting her in overcoming her intensity of feelings precipitating admission. Time spent discussing smoking cessation with patient: 3 to 10 minutes Status at Discharge Functional status at discharge: independent ambulation Overall status at discharge: patient is progressing back to baseline Time Spent with Patient Time attestation: Total time spent providing and/or coordinating discharge services: 40 Time spent: Greater than 30 minutes Discharge Plan Discharge Patient Disposition: Home, Self-Care Discharge Diagnosis: Recurrent major depression, severe PTSD Referrals: Nathen Mesa (psychiatrist) [Other] - 11/09/21 11:00 am [facility] [Other] - 1 Week (fax- [phone] Visiting RN services will resume at discharge. ) Partial Hospitalization Program (PHP):[facility] [Other] - 10/27/21 11:00 am (You will start the program on Tuesday, 10/28, which will be virtual until starting in-person on 11/03/21. ) Therapy: Ies[facility] Arguello [Other] - 10/29/21 4:30 pm Laura Collins MD [Primary Care Provider] - 10/30/21 1:20 pm ( COVERING IN OFFICE) Discharge Medications: New nicotine 14 mg/24 hr Patch 24 Hour 14 mg transdermal DAILY Qty: 28 0RF nicotine (polacrilex) 2 mg Gum 2 mg buccal Q2H PRN (Reason: nicotine withdrawal) Qty: 40 0RF cyanocobalamin (vitamin B-12) [Vitamin B-12] 100 mcg Tablet 100 mcg PO DAILY Qty: 30 0RF olanzapine 7.5 mg Tablet 7.5 mg PO TID PRN (Reason: Anxiety) Qty: 90 0RF Continued trazodone 100 mg tablet 200 mg PO BEDTIME Label Comments: Patient stated she takes 200 mg at HS only. Pharmacy stated 250 mg. benztropine 0.5 mg tablet 1 tab PO BID alprazolam 1 mg tablet 1 mg PO QID PRN (Reason: anxiety) 15 Days 0RF lithium carbonate 300 mg tablet extended release 600 mg PO BID 15 Days 0RF melatonin 3 mg Tablet 9 mg PO BEDTIME 15 Days 0RF prazosin 5 mg Capsule 14 mg PO BEDTIME 15 Days 0RF Protocol: Hold for SBP< HOLD for SBP < : 90 Rx Instructions: Take 2 tabs 2 mg dose and 2 tabs 5 mg dose for a total dose of 14 mg at bedtime. dextroamphetamine-amphetamine 20 mg tablet 20 mg PO DAILY 30 Days 0RF Rx Instructions: Take after breakfast. fluticasone propionate 50 mcg/actuation spray,suspension 1 - 2 spray intranasal DAILY 30 Days 0RF Rx Instructions: Patient obtains OTC. cholecalciferol (vitamin D3) 25 mcg (1,000 unit) Tablet 50 mcg PO DAILY 15 Days 0RF thiamine mononitrate (vit B1) 100 mg Tablet 100 mg PO DAILY 15 Days 0RF desvenlafaxine 100 mg tablet extended release 24 hr 100 mg PO DAILY 30 Days Qty: 30 0RF Discontinued olanzapine 5 mg Tablet 5 mg PO TID PRN (Reason: Anxiety) Discharge Orders: Discharge Order (Routine); Ordered 10/27/21 Ordered By: Orin Johnson Diet: Advance to usual diet Activity on Discharge: As tolerated Stand Alone Forms: Patient Portal Discharge page, Community Support Care Plan Goals: Mood stabilization Health Concerns: Recurrent major depression PTSD Plan of Treatment: Practice coping skills Attend scheduled appointments Take medications as directed Labs will be ordered in outpatient next week after you begin partial hospital program. Assessment: non-suicidal, non-homicidal Discharge Date/Time: 10/27/21 10:57
== END 2021-10-27 10:57 | disposition home or self-care (01) | DRG 885 ==
LOC: HO.ED 22:48 → HO.PM5 10-06 14:03
PROVIDERS: Nurse Practitioner Family; Admitting Provider Psychiatry & Neurology Psychiatry; Emergency Provider Internal Medicine; PCP Family Medicine; Visit Provider Clinical Nurse Specialist Psychiatric/Mental Health, Adult
DX: F33.2 Major depressive disorder, recurrent severe without psychotic features (principal); R45.851 Suicidal ideations; F43.10 Post-traumatic stress disorder, unspecified; F17.210 Nicotine dependence, cigarettes, uncomplicated; Z20.822 Contact with and (suspected) exposure to COVID-19; Z71.6 Tobacco abuse counseling; Z91.52 Personal history of nonsuicidal self-harm; Z91.51 Personal history of suicidal behavior; Z88.2 Allergy status to sulfonamides; Z88.8 Allergy status to other drugs, medicaments and biological substances; Z79.51 Long term (current) use of inhaled steroids; Z79.899 Other long term (current) drug therapy
CPT/HCPCS: 36415; 80048; 80061; 80076; 80143; 80178; 80179; 80307; 81001; 82040; 82077; 82607; 82746; 83036; 83690; 83735; 84439; 84443; 85025; 87635; 90471; 90715; 93005; 99285

== ENCOUNTER 2021-11-16 09:30 | Outpatient (RCR) | payer OTHER, SELFPAY ==
[2021-10-28 12:13] VITALS: BMI 52.4
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
--- NOTE | 2021-10-29 16:17 | PC.NURSE ---
Case opened in treatment team.
--- NOTE | 2021-10-30 14:05 | PC.NURSE ---
I called and spoke with pt. Reviewed treatment plan and set a tentative discharge date of 11/17/21.
--- NOTE | 2021-11-05 09:17 | HO.PHPPROGNO ---
Subjective Subjective Date of Service: 11/05/21 Reason For Visit: MDD,PTSD Medical Problems Affecting Mental Status: No Interim History: Having a rough morning . States that they were struggling this am, and that having new faces in group worsens this. States they will adjust, and they feel safe. Has upcoming appointment with outpatient psychiatric provider on 11/09/21, will not be here. Plans to get labwork done that was ordered by inpatient provider. Medication Compliance: Yes Side effects from medications: No Attending Groups: Yes Review of Systems Acute medical concerns: No Medical Review of Systems: unchanged Review of Systems Review of Systems Yes all other systems are reviewed and are negative Constitutional: Reports no additional constitutional complaints Mental Status Exam Mental Status Exam Narrative: NAD. Normally ambulation. Motor activity calm, posture within normal limits. Patient Appearance: Well Grooomed and Appropriate Patient Orientation: Person, Place, Time and Situation Level of Consciousness: Appropriate Patient Behavior: Appropriate and Cooperative Mood Description: Appropriate and Anxious Affect Description: Appropriate and Anxious Patient Cognition Impaired: No Ability to Follow Directions: Good Speech Pattern: Clear, Appropriate and Coherent Memory Description: Intact Hallucinations: None Delusions: Not Present Thought Process: Intact Thought Content: positive for Intact and positive for Suicidal Ideation (Passive at this time, no intent or plan.) Depressive Symptoms: Loss of Int. in Activity, Hopelessness, Unhappiness and Thoughts of /Suicide Judgement: Fair Diagnostics Vital Signs (24Hr): BMI result Body Mass Index 52.4 Assessment & Plan Assessment & Plan (1) MDD (major depressive disorder), recurrent severe, without psychosis: Status: Acute Code(s): F33.2 - Major depressive disorder, recurrent severe without psychotic features Assessment and Plan: Having a rough morning . States that they were struggling this am, and that having new faces in group worsens this. States they will adjust, and they feel safe. Has upcoming appointment with outpatient psychiatric provider on 11/09/21, will not be here. Patient is content with current medication regimen, does not feel they need any type of changes at this time. Plans to get labwork done that was ordered by inpatient provider. (2) PTSD (post-traumatic stress disorder): Status: Acute Code(s): F43.10 - Post-traumatic stress disorder, unspecified Plan 1. Continue with current [facility] plan of care. 2. Continue with current medication regimen as prescribed by outpatient provider. 3. Follow-up as per protocol. Patient educated on: diagnosis, medication risk/benefits and therapeutic strategies Informed Consent: understands Reason for contiued partial hosp. stay Substantial Risk for: harm to self, inability to function, rapid decompensation and med/psych decompensation Certification I certify that partial hospital treatment is medically necessary due to the symptoms and problems resulting from the patient's mental illness and the failure to treat the patient at the partial hospital level of care would likely result in the patient requiring inpatient psychiatric care which could not be prevented at a less intensive level of care. I spent minutes with the patient and/or on the patient floor today, greater than?50% of which was spent counseling/coordinating care. Discharge Plan Discharge Attending provider: Raffi Pozo Medications: No Action trazodone 100 mg tablet 200 mg PO BEDTIME Label Comments: Patient stated she takes 200 mg at HS only. Pharmacy stated 250 mg. benztropine 0.5 mg tablet 1 tab PO BID nicotine 14 mg/24 hr Patch 24 Hour 14 mg transdermal DAILY Qty: 28 0RF nicotine (polacrilex) 2 mg Gum 2 mg buccal Q2H PRN (Reason: nicotine withdrawal) Qty: 40 0RF cyanocobalamin (vitamin B-12) [Vitamin B-12] 100 mcg Tablet 100 mcg PO DAILY Qty: 30 0RF olanzapine 7.5 mg Tablet 7.5 mg PO TID PRN (Reason: Anxiety) Qty: 90 0RF alprazolam 1 mg tablet 1 mg PO QID PRN (Reason: anxiety) 15 Days 0RF lithium carbonate 300 mg tablet extended release 600 mg PO BID 15 Days 0RF melatonin 3 mg Tablet 9 mg PO BEDTIME 15 Days 0RF prazosin 5 mg Capsule 14 mg PO BEDTIME 15 Days 0RF Protocol: Hold for SBP< HOLD for SBP < : 90 Rx Instructions: Take 2 tabs 2 mg dose and 2 tabs 5 mg dose for a total dose of 14 mg at bedtime. dextroamphetamine-amphetamine 20 mg tablet 20 mg PO DAILY 30 Days 0RF Rx Instructions: Take after breakfast. fluticasone propionate 50 mcg/actuation spray,suspension 1 - 2 spray intranasal DAILY 30 Days 0RF Rx Instructions: Patient obtains OTC. cholecalciferol (vitamin D3) 25 mcg (1,000 unit) Tablet 50 mcg PO DAILY 15 Days 0RF thiamine mononitrate (vit B1) 100 mg Tablet 100 mg PO DAILY 15 Days 0RF desvenlafaxine 100 mg tablet extended release 24 hr 100 mg PO DAILY 30 Days Qty: 30 0RF Stand Alone Forms: Patient Portal Discharge page
--- NOTE | 2021-11-13 14:43 | PC.NURSE ---
Discharge Note: Patient discharged on 11/13/2021. Routine discharge. Patient denies SI without plan or intent. Patient denies HI, AH. VH. Patient in agreement with discharge. Patient discharged to outside providers. Patient seen by [facility] CL[facility] prior to discharge for medication appointment.
--- NOTE | 2021-11-16 10:13 | HO.PHPPROGNO ---
Subjective Subjective Date of Service: 11/16/21 Reason For Visit: MDD,PTSD Medical Problems Affecting Mental Status: No Interim History: Patient feels stable for discharge from [facility] today, states I feel ready . Medication Compliance: Yes Side effects from medications: No Attending Groups: Yes Review of Systems Acute medical concerns: No Medical Review of Systems: unchanged Review of Systems Review of Systems Yes all other systems are reviewed and are negative Constitutional: Reports no additional constitutional complaints Mental Status Exam Mental Status Exam Narrative: NAD. Normally ambulation. Motor activity calm. Patient Appearance: Well Grooomed and Appropriate Patient Orientation: Person, Place, Time and Situation Level of Consciousness: Appropriate Patient Behavior: Appropriate and Cooperative Mood Description: Appropriate Affect Description: Appropriate and Anxious (slightly) Patient Cognition Impaired: No Ability to Follow Directions: Excellent Speech Pattern: Clear, Appropriate and Coherent Memory Description: Intact Hallucinations: None Delusions: Not Present Thought Process: Intact Thought Content: positive for Intact and positive for Suicidal Ideation (Passive at this time, no intent or plan.) Depressive Symptoms: Unhappiness and Thoughts of /Suicide Judgement: Good Diagnostics Vital Signs (24Hr): BMI result Body Mass Index 52.4 Assessment & Plan Assessment & Plan (1) MDD (major depressive disorder), recurrent severe, without psychosis: Status: Acute Code(s): F33.2 - Major depressive disorder, recurrent severe without psychotic features Assessment and Plan: Patient reports overall feeling improved, ready for discharge from [facility]. Has a behavioral health case manager from [facility], although continues on [facility] waitlist. manager [place] working with patient regarding adding more structure today once leaving here. No active SI, no safety concerns at this time. Patient able to express hope for the future, is discussing possible medication changes with her psychiatric provider, including a possible switch from olanzapine to Vraylar, and from Xanax to BuSpar. Also plans to resume outpatient groups, as well as is considering volunteer work at [employer]. (2) PTSD (post-traumatic stress disorder): Status: Acute Code(s): F43.10 - Post-traumatic stress disorder, unspecified Plan 1. Patient appears stable for discharge from [facility] at this time. 2. Patient to follow up with outpatient providers going forward. Patient educated on: diagnosis, medication risk/benefits and therapeutic strategies Informed Consent: understands Reason for contiued partial hosp. stay Substantial Risk for: stable for discharge Certification I certify that partial hospital treatment is medically necessary due to the symptoms and problems resulting from the patient's mental illness and the failure to treat the patient at the partial hospital level of care would likely result in the patient requiring inpatient psychiatric care which could not be prevented at a less intensive level of care. I spent minutes with the patient and/or on the patient floor today, greater than?50% of which was spent counseling/coordinating care. Discharge Plan Discharge Attending provider: Raffi Pozo Medications: No Action trazodone 100 mg tablet 200 mg PO BEDTIME Label Comments: Patient stated she takes 200 mg at HS only. Pharmacy stated 250 mg. benztropine 0.5 mg tablet 1 tab PO BID nicotine 14 mg/24 hr Patch 24 Hour 14 mg transdermal DAILY Qty: 28 0RF nicotine (polacrilex) 2 mg Gum 2 mg buccal Q2H PRN (Reason: nicotine withdrawal) Qty: 40 0RF cyanocobalamin (vitamin B-12) [Vitamin B-12] 100 mcg Tablet 100 mcg PO DAILY Qty: 30 0RF olanzapine 7.5 mg Tablet 7.5 mg PO TID PRN (Reason: Anxiety) Qty: 90 0RF alprazolam 1 mg tablet 1 mg PO QID PRN (Reason: anxiety) 15 Days 0RF lithium carbonate 300 mg tablet extended release 600 mg PO BID 15 Days 0RF melatonin 3 mg Tablet 9 mg PO BEDTIME 15 Days 0RF prazosin 5 mg Capsule 14 mg PO BEDTIME 15 Days 0RF Protocol: Hold for SBP< HOLD for SBP < : 90 Rx Instructions: Take 2 tabs 2 mg dose and 2 tabs 5 mg dose for a total dose of 14 mg at bedtime. dextroamphetamine-amphetamine 20 mg tablet 20 mg PO DAILY 30 Days 0RF Rx Instructions: Take after breakfast. fluticasone propionate 50 mcg/actuation spray,suspension 1 - 2 spray intranasal DAILY 30 Days 0RF Rx Instructions: Patient obtains OTC. cholecalciferol (vitamin D3) 25 mcg (1,000 unit) Tablet 50 mcg PO DAILY 15 Days 0RF thiamine mononitrate (vit B1) 100 mg Tablet 100 mg PO DAILY 15 Days 0RF desvenlafaxine 100 mg tablet extended release 24 hr 100 mg PO DAILY 30 Days Qty: 30 0RF Stand Alone Forms: Patient Portal Discharge page
--- NOTE | 2021-11-16 13:15 | PC.NURSE ---
Patient scheduled for a routine discharge from [facility] today. Patient denied SI or thoughts to harm themselves. Feels ready for discharge. Reviewed patient medication list with patient. Patient reports taking medications as prescribed and appears to know what and when to take medications. Patient has the crisis number if needed and a copy of their medication list.
--- NOTE | 2021-11-16 15:33 | PC.NURSE ---
I called and left a message for Iesha Arguello, pt's therapist, informing her of pt's discharge from [facility] and of pt's clinical presentation at discharge.
== END 2021-11-16 23:59 | disposition home or self-care (01) ==
LOC: HO.PHPA 09:30
PROVIDERS: Visit Provider Psychiatry & Neurology Psychiatry
DX: F33.2 Major depressive disorder, recurrent severe without psychotic features (principal); F43.10 Post-traumatic stress disorder, unspecified; Z79.899 Other long term (current) drug therapy
CPT/HCPCS: 90791; 90853

== ENCOUNTER 2022-03-21 02:41 | Inpatient (IN) | payer OTHER, SELFPAY ==
[2022-03-21] VITALS (9 sets, daily range): BP systolic 132–144; BP diastolic 79–92; PULSE 83–99; RESP 16–20; TEMP 36.6–37.2; O2SAT 95–100; BMI 40.3
--- NOTE | ~2022-03-21 | CT_ITS ---
EXAMINATION: CT HEAD WITHOUT CONTRAST CLINICAL INFORMATION: Status post inserted in some headbanging COMPARISON: CT brain 03/17/2021 TECHNIQUE: Contiguous axial imaging was performed from the skull base to vertex without intravenous administration of contrast. This CT examination was performed using dose optimization techniques as appropriate, variously including the following: *Automated exposure control *Adjustment of mA and/or kV according to patient size (this includes techniques or standardized protocols for targeted exams where dose is matched to indication/reason for exam; i.e. extremities or head) *Use of iterative reconstruction technique DLP: 867 mGy-cm FINDINGS: There is no acute intra-axial, extra-axial bleed, masses or midline shift. There is no acute infarction evolution. There is edema. The wilkinson to white matter differentiation maintained normal. The lateral ventricles are symmetrical, normal size and configuration. Bone windows reveal no calvarial abnormality. There is moderate-sized polyp or retention cyst right maxillary sinus. Bone windows reveal no calvarial abnormality. There is a 1 cm scalp lesion likely sebaceous cyst or subcutaneous neurofibroma. A second lesion is seen more medially measuring 4 mm. There are more additional smaller lesions seen in the right occipital scalp. CT/CT head/brain wo IV con IMPRESSION: 1. No acute intracranial process seen. 2. Moderate-sized polyp or retention cyst right maxillary sinus. 3. There are multiple small subcutaneous lesions in the scalp, ? sebaceous cyst versus Warts. These have slightly increased in size since previous CT 03/17/2021
[2022-03-21] MEDS: ALPRAZolam 0.5 MG TABLET 1 MG PO ×2 (04:14→16:17)
--- NOTE | 2022-03-21 04:15 | ED.PSYCH ---
HPI - Psych General Chief Complaint: Psychiatric Symptoms Stated Complaint: S/I Time Seen by Provider: 03/21/22 04:12 Source: patient Mode of arrival: ambulatory Limitations: no limitations History of Present Illness HPI Narrative: Patient comes to the emergency room complaining of suicidal ideation. Prior to arriving to the emergency room, patient states that she was lying down on the railroad tracks hoping that the train with come by and kill her. Patient states that she was able to put herself together got up and came to the emergency room. Patient states that she has had multiple suicide attempts in the past. Related Data Home Medications Medication Instructions Recorded Confirmed alprazolam 1 mg tablet 1 tab PO QID PRN Anxiety 03/21/22 03/21/22 benztropine 0.5 mg tablet 1 tab PO BID 03/21/22 03/21/22 cholecalciferol (vitamin D3) 50 1 cap PO DAILY 03/21/22 03/21/22 mcg (2,000 unit) capsule (Vitamin D3) desvenlafaxine succinate 100 mg 1 tab PO DAILY 03/21/22 03/21/22 tablet,extended release 24 hr dextroamphetamine-amphetamine 20 1 tab PO DAILY 03/21/22 03/21/22 mg tablet lithium carbonate 300 mg 2 tab PO BID 03/21/22 03/21/22 tablet,extended release melatonin 3 mg tablet 9 mg PO BEDTIME 03/21/22 03/21/22 prazosin 2 mg capsule 1 cap PO BID 03/21/22 03/21/22 prazosin 5 mg capsule 14 mg PO BEDTIME 03/21/22 03/21/22 thiamine HCl (vitamin B1) 100 mg 1 tab PO DAILY 03/21/22 03/21/22 tablet trazodone 50 mg tablet 1 tab PO BEDTIME 03/21/22 03/21/22 Previous Rx's Medication Instructions Recorded nicotine (polacrilex) 2 mg gum 2 mg buccal Q2H PRN nicotine 10/26/21 withdrawal #40 ea nicotine 14 mg/24 hr daily 14 mg transdermal DAILY #28 ea 10/26/21 transdermal patch Allergies Allergy/AdvReac Type Severity Reaction Status Date / Time Sulfa (Sulfonamide Allergy Unknown HIVES Verified 03/15/21 14:13 Antibiotics) [SULFA (SULFONAMIDE ANTIBIOTICS)] sulfamethoxazole Allergy Unknown HIVES Verified 03/15/21 14:13 [From BACTRIM] trimethoprim [From BACTRIM] Allergy Unknown HIVES Verified 03/15/21 14:13 oseltamivir [From Tamiflu] AdvReac Sensation Verified 09/29/21 11:20 of bugs crawling on skin. Review of Systems Review of Systems: Constitutional : No Weight loss, No Fever, No Chills, No Night Sweats, No Fatigue, No Malaise ENT/Mouth : No Hearing loss, No Ear Pain, No Nasal Congestion, No Sinus Pain, No Hoarseness, No sore throat, No Rhinorrhea, No Swallowing Difficulty Eyes: No Eye Pain, No Swelling, No Redness, No Foreign Body, No Discharge, No Vision Changes Cardiovascular : No Chest Pain, No SOB, No Dyspnea on Exertion, No Orthopnea, No Edema, No Palpitations Respiratory : No Cough, No Sputum, No Wheezing, No Smoke Exposure, No Dyspnea Gastrointestinal : No Nausea, No Vomiting, No Diarrhea, No Constipation, No abdominal Pain, No Hematochezia, No Melena Genitourinary : no irregular bleeding, No Dysuria, No Urinary Frequency, No Hematuria, No Urinary Incontinence, No Urgency, No Flank Pain, No Urinary Flow Changes, No Hesitancy Musculoskeletal : No joint pain, No Myalgias, No Joint Swelling Skin : No Skin Lesions, No rash Neuro : No Weakness, No Numbness, No Paresthesias, No Loss of Consciousness, No Dizziness, No Headache Psych : Complaining of severe anxiety and suicidal ideation, no homicidal ideation Heme/Lymph: No Bruising, No Bleeding,No Lymphadenopathy Endocrine : No Polyuria, No Polydipsia, No Temperature Intolerance [facility] Past Medical History Medical History Dermoid cyst PTSD (post-traumatic stress disorder) Social History Social History Household Members: Friend(s) Household Members Other:: roommates Housing: Apartment Housing Other:: downstairs landlord Do you presently have visiting nurse or other home services: Yes Alcohol intake: never Patient Tobacco Use Status: Current everyday Tobacco user Tobacco use type: Cigarette Cigarette Packs Per Day: 1 Cigarettes Per Day: 10 Years Smoked: 20 e-Cigarette/Vaping Use: Never Used Second Hand Smoke Exposure: Yes Substance Use Type: Marijuana and Caffiene service: No Sexual orientation: Did not discuss Physical Exam Vital Signs: Vital Signs: Last Vital Signs Temp 97.8 F 03/21/22 03:37 Pulse 99 03/21/22 03:37 Resp 16 03/21/22 03:37 BP 142/79 H 03/21/22 03:37 Pulse Ox 95 03/21/22 03:37 O2 Del Method 03/21/22 03:37 BMI result Body Mass Index 40.3 Const: Other: Appearance: Alert. Oriented X3. No acute distress. Eyes: Pupils equal, round and reactive to light. ENT: Pharynx normal. Neck: Normal inspection. Neck supple. No lymph nodes noted. No crepitus CVS: Normal heart rate and rhythm. Pulses normal. Normal S1 and S2 Respiratory: No respiratory distress. Breath sounds normal. No Wheezing. No rales Abdomen: Soft and nontender. No rigidity. No distention. Skin: Skin warm and dry. Normal skin color. Normal skin turgor. Extremities: No lower extremity edema. No Lacerations. No Rash Neuro: Oriented X 3. No motor deficit. No sensory deficit. Moving all extremities. No slurred speech. CN 2 through 12 grossly intact Psych: calm, cooperative, flat affect Course Course Course Narrative: Patient has had several suicide attempts in the past per her history. Patient is on a Section 12. All the labs pending. Medications Administered Discontinued Medications Generic Name Dose Route Start Last Admin Trade Name Freq PRN Reason Stop Dose Admin Alprazolam 1 mg 03/21/22 04:09 03/21/22 04:14 Alprazolam 0.5 Mg Tablet PO 03/21/22 04:10 1 mg ONCE ONE Administration Discharge Plan Discharge Clinical Impression: Suicidal ideation Patient Disposition: Still a Patient Prescriptions: No Action benztropine 0.5 mg tablet 1 tab PO BID trazodone 50 mg tablet 1 tab PO BEDTIME alprazolam 1 mg tablet 1 tab PO QID PRN (Reason: Anxiety) thiamine HCl (vitamin B1) 100 mg tablet 1 tab PO DAILY lithium carbonate 300 mg tablet extended release 2 tab PO BID melatonin 3 mg tablet 9 mg PO BEDTIME prazosin 5 mg capsule 14 mg PO BEDTIME dextroamphetamine-amphetamine 20 mg tablet 1 tab PO DAILY prazosin 2 mg capsule 1 cap PO BID desvenlafaxine succinate 100 mg tablet extended release 24 hr 1 tab PO DAILY cholecalciferol (vitamin D3) [Vitamin D3] 50 mcg (2,000 unit) capsule 1 cap PO DAILY nicotine 14 mg/24 hr Patch 24 Hour 14 mg transdermal DAILY Qty: 28 0RF nicotine (polacrilex) 2 mg Gum 2 mg buccal Q2H PRN (Reason: nicotine withdrawal) Qty: 40 0RF
[2022-03-21 04:43] LABS: MANUAL DIFF FLAG NO
[2022-03-21 04:44] LABS: Basophils Percent Auto 0.1 % (0-2); Eosinophils Absolute Auto 0.1 X10*3/uL (0.0-0.4); Eosinophils Percent Auto 0.5 % (0-4); Hematocrit 40.8 % (37.0-47.0); Hemoglobin 13.2 g/dl (12.0-16.0); Imm Gran Abs Auto 0.04 X10*3/uL (0.00-0.03); Imm Gran Pct Auto 0.4 % (0.0-0.4); Lymphocytes Absolute Auto 1.9 X10*3/uL (1.2-4.9); Mean Corpuscular HGB Conc 32.4 g/dl (31.0-35.0); Mean Corpuscular Hemoglobin 29.5 pg (27.0-33.0); Mean Corpuscular Volume 91.3 fL (80.0-98.0); Mean Platelet Volume 9.7 fL (9.4-12.3); Monocytes Absolute Auto 0.4 X10*3/uL (0.1-1.2); Monocytes Percent Auto 3.8 % (2-11); Neutrophils Absolute Auto 6.8 x10*3/uL (2.0-8.3); Neutrophils Percent Auto 74.2 % (45-73); Platelet Count 367 X10*3/uL (160-400); Red Blood Count 4.47 X10*6/uL (4.20-5.50); White Blood Count 9.2 X10*3/uL (4.8-10.8)
[2022-03-21 04:45] LABS: Appearance Urine Clear; Color Urine Yellow; Glucose Urine UA Negative (Negative); Leukocyte Esterase Urine Negative (Negative); Nitrite Urine Negative (Negative); Specific Gravity - Urine <= 1.005 (1.005-1.025); Urine Blood Negative (Negative); Urine Ketones Negative (Negative); Urine Protein Negative (Neg-Trace)
[2022-03-21 04:46] LABS: UPreg QC Valid YES; Urine Pregnancy NEGATIVE (NEGATIVE)
[2022-03-21 04:58] LABS: Lithium 0.65 mmol/L (0.60-1.20)
[2022-03-21 04:58] LABS: COVID-19 Test Negative (Negative)
[2022-03-21 04:59] LABS: Amphetamine Screen Urine POSITIVE (Not Detect); Barbiturates, Urine Not Detected (Not Detect); Benzodiazepines Screen Urine POSITIVE (Not Detect); Cannabinoid Screen Urine POSITIVE (Not Detect); Cocaine Screen Urine Not Detected (Not Detect); Fentanyl, urine Not Detected (Not Detect); Opiate Screen Urine Not Detected (Not Detect); Phencyclidine Screen Urine Not Detected (Not Detect)
[2022-03-21 05:03] LABS: Acetaminophen LAB < 1 mcg/mL (<30); Ethanol < 10 mg/dL; Salicylate < 5.0 mg/dL (15-30)
[2022-03-21 05:05] LABS: Alanine Aminotransferase 25 U/L (0-31); Albumin Level 4.4 g/dL (3.5-5.0); Alkaline Phosphatase 62 U/L (39-117); Anion Gap 13 (12-20); Aspartate Amino Transferase 20 U/L (5-31); Bilirubin Total 0.4 mg/dL (0.0-1.0); Blood Urea Nitrogen 4 mg/dL (9-16); Calcium 9.5 mg/dL (8.4-10.2); Carbon Dioxide 22 mmol/L (22-29); Chloride 107 mmol/L (96-108); Creatinine Clr Calc Pharmacy 106.7; Estimated Glomerular Filt Rate > 60; Glucose Random 99 mg/dL (60-115); Potassium 4.3 mmol/L (3.3-5.1); Sodium 138 mmol/L (135-145); Total Protein 6.7 g/dL (6.5-8.0)
--- NOTE | 2022-03-21 05:15 | PC.NURSE ---
Patient is currently in her room quiet, compliant with lab draw, engaged well with provider and Care team clinician, provider placed patient on section 12 with recommendation of inpatient level of care, care team disposition VIDAL follow up in the morning, lithium 0.65 consistent with patient report of being compliant with her medication, Xanax 1 mg administered per order/pending effect, VSS, med rec completed/pending provider's approval, mood depressed and affect flat, coherent, patient has her lagging on because hospital pant doesn't fit, patient has her stuffed bunny with her for comfort and agreed to handover when feel better, will continue to monitor.
[2022-03-21] MEDS: LORazepam 2 MG/ML VIAL IM (06:00)
[2022-03-21] MEDS: OLANZapine 10 MG VIAL IM (06:00)
--- NOTE | 2022-03-21 06:10 | PC.NURSE ---
Patient was observed self dialoguing and then escalated to head banging against wall, patient reported having racing thought, patient was offered with IM medication to calm her racing thought and agreed, provider notified/Ativan 2 mg IM and Olanzapine 10 mg IM ordered verbally/order read back/confirmed/administered as ordered/pending effect, patient is currently sitting on rocking chair and being observed on 1:1 for safety, will continue to monitor.
--- NOTE | 2022-03-21 18:40 | MHC.CARE ---
Care Team has exhausted bed search for pt.
[2022-03-21] MEDS: PRAZOSIN HCL 14 MG PO (21:15)
[2022-03-21] MEDS: Lithium Carbonate ER 300 MG TABLET.ER 600 MG PO (21:16)
[2022-03-21] MEDS: Benztropine Mesylate 0.5 MG TABLET PO (21:16)
[2022-03-21] MEDS: Prazosin HCL 1 MG CAPSULE 2 MG PO (21:16)
[2022-03-21] MEDS: traZODone HCL 50 MG TABLET PO (21:16)
[2022-03-21] MEDS: Melatonin 3 MG TABLET 9 MG PO (21:16)
--- NOTE | 2022-03-21 21:49 | PC.NURSE ---
Pt aox3. Sleeping/resting at the bedside in no apparent distress. Pt medicated as orderd. Reports not concerns at this time. Pt aware of plan of care. Will continue to monitor.
[2022-03-22] MEDS: ALPRAZolam 0.5 MG TABLET 1 MG PO ×4 (05:31→20:58)
--- NOTE | 2022-03-22 05:33 | PC.NURSE ---
Patient is currently sitting rocking chair in common area watching TV, patient slept most part of the night, requested PRN Xanax for anxiety, administered Xanax 1 mg PO at 0531, pending effect, behavior non concerning, expresses needs well, disposition per care team is section 12 inpatient bed search, medication compliant, VSS, will continue to monitor.
--- NOTE | 2022-03-22 07:27 | PC.NURSE ---
patient appears to remain asleep at present respirations are even and unlabored patient appears in no distress
[2022-03-22 08:57] VITALS: BP 119/73; PULSE 80; RESP 20; TEMP 36.6; O2SAT 96
[2022-03-22] MEDS: Amphetamine Mixed Salts 20 MG TABLET PO (10:51)
[2022-03-22] MEDS: Lithium Carbonate ER 300 MG TABLET.ER 600 MG PO ×2 (10:51→20:59)
[2022-03-22] MEDS: Thiamine HCL 100 MG TABLET PO (10:52)
[2022-03-22] MEDS: LORazepam 1 MG TABLET 2 MG PO (13:42)
--- NOTE | 2022-03-22 16:58 | PC.NURSE ---
late entry note- about 1330 the client had expressed her displeasure about not receiving injectable meds (meds had been offered orally) patient had ripped seam off blanket and had gestured to attempt to choke self with it. patient was initiated on 1:1 observation after security was called to assisg in removing unsafe item from client. patient had agreed to take 2mg ativan orally but declined zyprexa orally.
[2022-03-22 17:00] VITALS: BP 131/74; PULSE 80; TEMP 36.4
[2022-03-22 20:50] VITALS: BP 118/74; PULSE 90
[2022-03-22] MEDS: Acetaminophen 325 MG TABLET 650 MG PO (20:56)
[2022-03-22] MEDS: PRAZOSIN HCL 14 MG PO (20:59)
[2022-03-22] MEDS: Melatonin 3 MG TABLET 9 MG PO (20:59)
[2022-03-22] MEDS: traZODone HCL 50 MG TABLET PO (21:01)
--- NOTE | 2022-03-23 00:37 | PC.ADMIT ---
A single, white, [place]ican-speaking female who identifies as non-binary [facility] at 1650 as a CV following referral from [facility]. Pt uses they/them as pronouns. Pt is known to with last admission in October of 2021. Pt has had several psychiatric admissions here and elsewhere. Pt denies any admissions for substances or Etoh. Pt self-presented to [facility] endorsing suicide stating that they had been laying down on railroad tracks with the intent that should be run over by a train. Pt states that this is a difficult time of year, saying they gave to a baby at this time of year. Pt stated several times to this field underwriter that they want to via multiple plans. Pt says she can seek help from staff, but also says she has plans to save up meds and hang self with linens. Pt states they do not feel safe alone; pt was put on 1:1 safety status. Pt denies HI and AH/VH. Pt reports anxiety and depression 10+/10. Pt reports poor sleep of 3-4 hours per night, frequent awakening, nightmares that are decreased by Prazosin. Pt reports poor, inadequate diet with some weight loss. Pt denies current medical issues but did report a headache at 4/10 for which she too PRN Tylenol with some good effect. Pt denies substance use other than marijuana. JHAVERI was positive for amphetamines and benzodiazepines which are prescribed as well as marijuana. [id number] done, admission orders obtained and initial treatment plan done. Pt declined to do the safety tool as she was tired. Pt is resting in her bedroom at this time on 1:1 safety status.
[2022-03-23] MEDS: ALPRAZolam 0.5 MG TABLET 1 MG PO ×4 (02:38→21:39)
[2022-03-23 08:27] LABS: Estimated Average Glucose 80 mg/dL; Hemoglobin A1c % 4.4 %
[2022-03-23 08:30] VITALS: BP 130/88; PULSE 103; RESP 16; TEMP 37.3; O2SAT 97
[2022-03-23 08:50] LABS: Cholesterol 122 mg/dL; HDL Cholesterol 25 mg/dL; LDL Cholesterol Calculated 70 mg/dl; Magnesium 2.2 mg/dL (1.6-2.6); Triglycerides 138 mg/dL
[2022-03-23] MEDS: Amphetamine Mixed Salts 20 MG TABLET PO (08:55)
[2022-03-23] MEDS: Lithium Carbonate ER 300 MG TABLET.ER 600 MG PO ×2 (08:55→21:41)
[2022-03-23] MEDS: Prazosin HCL 1 MG CAPSULE 2 MG PO (08:55)
[2022-03-23] MEDS: Cholecalciferol (Vitamin D3) 25 MCG TABLET 50 MCG PO (08:55)
[2022-03-23] MEDS: Thiamine HCL 100 MG TABLET PO (08:55)
[2022-03-23] MEDS: Nicotine 14 MG PATCH.TD24 TRANSDERMA (08:56)
[2022-03-23 09:17] LABS: Thyroid Stimulating Hormone 1.19 uIU/mL (0.32-4.0)
[2022-03-23 13:03] LABS: Free T4 (Free Thyroxine) 0.91 ng/dL (0.71-1.85)
[2022-03-23 13:24] LABS: Vitamin B12 290 pg/mL (200-900)
[2022-03-23 13:28] LABS: Folate 7.2 ng/mL (> or = 4.0)
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
[2022-03-23 21:35] VITALS: BP 130/91; PULSE 97; RESP 19; TEMP 36.2; O2SAT 98
[2022-03-23] MEDS: PRAZOSIN HCL 14 MG PO (21:37)
[2022-03-23] MEDS: traZODone HCL 50 MG TABLET 250 MG PO (21:38)
[2022-03-23] MEDS: Melatonin 3 MG TABLET 9 MG PO (21:40)
[2022-03-24] MEDS: Acetaminophen 325 MG TABLET 650 MG PO ×2 (04:49→11:42)
[2022-03-24] MEDS: Cholecalciferol (Vitamin D3) 25 MCG TABLET 50 MCG PO (08:36)
[2022-03-24] MEDS: Lithium Carbonate ER 300 MG TABLET.ER 600 MG PO ×2 (08:36→21:46)
[2022-03-24] MEDS: Nicotine 14 MG PATCH.TD24 TRANSDERMA (08:36)
[2022-03-24] MEDS: ALPRAZolam 0.5 MG TABLET 1 MG PO ×4 (08:36→21:45)
[2022-03-24] MEDS: Amphetamine Mixed Salts 20 MG TABLET PO (08:36)
[2022-03-24] MEDS: Thiamine HCL 100 MG TABLET PO (08:36)
[2022-03-24 08:39] VITALS: BP 120/80; PULSE 81; RESP 18; TEMP 36.9; O2SAT 97
[2022-03-24 16:31] VITALS: BP 129/75; PULSE 78; RESP 18; TEMP 36.7; O2SAT 99
--- NOTE | 2022-03-24 18:25 | HO.PSYCHPN ---
Subjective Subjective Date of Service: 03/24/22 Reason For Visit: Depression SI PTSD Subjective Notes: Conditional Voluntary Healthcare Proxy: No Guardianship: No Medical Problems Affecting Mental Status: No Interim History: Review of her experience of being restrained in the ER. Discussion of what may have been approached in a different manner. Tearful, expressed fear, requesting feedback. Medication Compliance: Yes Side effects from medications: No Attending Groups: Intermittent Review of Systems Acute medical concerns: No Medical Review of Systems: unchanged Mental Status Exam Mental Status Exam Narrative: NAD. Normally ambulation. Motor activity calm. Patient Appearance: Well Grooomed and Appropriate Patient Orientation: Person, Place, Time and Situation Level of Consciousness: Appropriate Patient Behavior: Appropriate and Cooperative Mood Description: Appropriate Affect Description: Appropriate and Anxious (slightly) Patient Cognition Impaired: No Ability to Follow Directions: Excellent Speech Pattern: Clear, Appropriate and Coherent Memory Description: Intact Hallucinations: None Delusions: Not Present Thought Process: Intact Thought Content: positive for Intact and positive for Suicidal Ideation (Passive at this time, no intent or plan.) Depressive Symptoms: Unhappiness and Thoughts of /Suicide Judgement: Good Diagnostics Vital Signs (24Hr): Vital Signs - 24 hr 03/23/22 21:35 03/24/22 08:39 03/24/22 16:31 Temperature 97.2 F 98.5 F 98.1 F Pulse Rate 97 81 78 Respiratory Rate 19 18 18 Blood Pressure 130/91 H 120/80 129/75 Pulse Oximetry 98 97 99 Oxygen Delivery Method Room Air Room Air Room Air BMI result Body Mass Index 40.3 Labs Results: 03/21/22 04:36 03/21/22 04:35 Labs: Laboratory Results - last 48 hr 03/23/22 03/23/22 03/23/22 08:06 08:06 08:06 Estimat Average Glucose 80 Hemoglobin A1c % 4.4 Magnesium 2.2 Triglycerides 138 Cholesterol 122 LDL Cholesterol, Calc 70 HDL Cholesterol 25 Vitamin B12 290 Folate 7.2 TSH 1.19 Free T4 0.91 Medications Medications Current Medications Acetaminophen (Acetaminophen 325 Mg Tablet) 650 mg PO Q6H PRN PRN Reason: Headache/Pain Mild Scale (1-3) Last Admin: 03/24/22 11:42 Dose: 650 mg Al Hydroxide/Mg Hydroxide (Magnesium Hydrox/Alum Hydrox 30 Ml Oral.Susp) 30 ml PO Q6H PRN PRN Reason: Heartburn/Nausea Alprazolam (Alprazolam 0.5 Mg Tablet) 1 mg PO QID PRN PRN Reason: Anxiety Last Admin: 03/24/22 17:18 Dose: 1 mg Amphetamine/Dextroamphetamine (Amphetamine Mixed Salts 20 Mg Tablet) 20 mg PO DAILY [facility] Last Admin: 03/24/22 08:36 Dose: 20 mg Hydroxyzine HCl (Hydroxyzine Hcl 25 Mg Tablet) 25 mg PO Q6H PRN PRN Reason: Anxiety [place] Carbonate ([place] Carbonate Er 300 Mg Tablet.Er) 600 mg PO BID [facility] Last Admin: 03/24/22 08:36 Dose: 600 mg Magnesium Hydroxide (Milk Of Magnesia 30 Ml Oral.Susp) 30 ml PO DAILY PRN PRN Reason: Constipation Melatonin (Melatonin 3 Mg Tablet) 9 mg PO BEDTIME [facility] Last Admin: 03/23/22 21:40 Dose: 9 mg Nicotine (Nicotine 14 Mg Patch.Td24) 14 mg TRANSDERMA DAILY [facility] Last Admin: 03/24/22 08:36 Dose: 14 mg Nicotine Polacrilex (Nicotine Polacrilex 2 Mg Gum) 2 mg BUCCAL Q2H PRN PRN Reason: nicotine withdrawal Patient Own Medication ( Desvenlafaxine 100 Mg Er Tablet) 1 tab PO DAILY [facility] Olanzapine (Olanzapine 10 Mg Tablet) 10 mg PO BID PRN PRN Reason: agitation, dissociation Prazosin HCl 10 mg/ Prazosin (HCl 4 mg) 14 mg PO BEDTIME [facility] Last Admin: 03/23/22 21:37 Dose: 14 mg Thiamine HCl (Thiamine Hcl 100 Mg Tablet) 100 mg PO DAILY [facility] Last Admin: 03/24/22 08:36 Dose: 100 mg Trazodone HCl (Trazodone Hcl 50 Mg Tablet) 250 mg PO BEDTIME [facility] Last Admin: 03/23/22 21:38 Dose: 250 mg Vitamin D (Cholecalciferol (Vitamin D3) 25 Mcg Tablet) 50 mcg PO DAILY [facility] Last Admin: 03/24/22 08:36 Dose: 50 mcg Allergies Allergies Allergy/AdvReac Type Severity Reaction Status Date / Time Sulfa (Sulfonamide Allergy Unknown HIVES Verified 03/15/21 14:13 Antibiotics) [SULFA (SULFONAMIDE ANTIBIOTICS)] sulfamethoxazole Allergy Unknown HIVES Verified 03/15/21 14:13 [From BACTRIM] trimethoprim [From BACTRIM] Allergy Unknown HIVES Verified 03/15/21 14:13 oseltamivir [From Tamiflu] AdvReac Sensation Verified 09/29/21 11:20 of bugs crawling on skin. Assessment & Plan Assessment & Plan (1) PTSD (post-traumatic stress disorder): Status: Acute Code(s): F43.10 - Post-traumatic stress disorder, unspecified (2) MDD (major depressive disorder), recurrent severe, without psychosis: Status: Acute Code(s): F33.2 - Major depressive disorder, recurrent severe without psychotic features (3) Suicidal ideation: Status: Acute Code(s): R45.851 - Suicidal ideations Plan 36 yo non binary, prefers they/them pronouns with SI. 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 Several serious precipitants-holidays, anniversary of the loss of a child they planned to co-parent and therapist moved from the area at the end of Feb 2022 however pt will be continuing via [employer]. Plan: Message left for Nathen Mesa. Pt wanting to change Pristiq, possibly re-start Olanzapine. We would like his input if possible. Pristiq ordered from [employer] as it is not on formulary Collateral contact as needed Assist pt to re-establish safety. 03/24/22: Continue current plan. I spent minutes with the patient and/or on the patient floor today, greater than?50% of which was spent counseling/coordinating care. Patient educated on: therapeutic strategies Informed Consent: understands Reason for contiued inpatient stay Substantial Risk for: harm to self Time Spent With Patient Time: Total time managing care of this patient today 30____ minutes.
[2022-03-24] MEDS: PRAZOSIN HCL 14 MG PO (21:45)
[2022-03-24] MEDS: traZODone HCL 50 MG TABLET 250 MG PO (21:46)
[2022-03-24] MEDS: Melatonin 3 MG TABLET 9 MG PO (21:46)
[2022-03-25] MEDS: Amphetamine Mixed Salts 20 MG TABLET PO (08:30)
[2022-03-25] MEDS: Lithium Carbonate ER 300 MG TABLET.ER 600 MG PO ×2 (08:30→20:41)
[2022-03-25] MEDS: Thiamine HCL 100 MG TABLET PO (08:30)
[2022-03-25] MEDS: Cholecalciferol (Vitamin D3) 25 MCG TABLET 50 MCG PO (08:30)
[2022-03-25] MEDS: Nicotine 14 MG PATCH.TD24 TRANSDERMA (08:30)
[2022-03-25] MEDS: ALPRAZolam 0.5 MG TABLET 1 MG PO ×2 (08:34→20:40)
[2022-03-25 08:37] VITALS: BP 121/61; PULSE 92; RESP 18; TEMP 36.3; O2SAT 96
[2022-03-25] MEDS: hydrOXYzine HCL 25 MG TABLET PO (11:00)
[2022-03-25] MEDS: Milk of Magnesia 30 ML ORAL.SUSP PO (11:00)
[2022-03-25] MEDS: bisacodyL 5 MG TABLET.DR 10 MG PO (14:52)
[2022-03-25 18:00] VITALS: BP 127/75; PULSE 82; TEMP 36.2; O2SAT 99
--- NOTE | 2022-03-25 18:57 | HO.PSYCHPN ---
Subjective Subjective Date of Service: 03/25/22 Reason For Visit: Depression SI PTSD Subjective Notes: Conditional Voluntary Healthcare Proxy: No Guardianship: No Medical Problems Affecting Mental Status: No Interim History: Discussed self harm urges, appropriate use of prn Olanzapine and interaction with room-mate. Mother visited-pt reports this was suprising for her. Medication Compliance: Yes Side effects from medications: No Attending Groups: Yes Review of Systems Acute medical concerns: No Medical Review of Systems: unchanged Mental Status Exam Mental Status Exam Narrative: NAD. Normally ambulation. Motor activity calm. Patient Appearance: Well Grooomed and Appropriate Patient Orientation: Person, Place, Time and Situation Level of Consciousness: Appropriate Patient Behavior: Appropriate and Cooperative Mood Description: Appropriate Affect Description: Appropriate and Anxious (slightly) Patient Cognition Impaired: No Ability to Follow Directions: Excellent Speech Pattern: Clear, Appropriate and Coherent Memory Description: Intact Hallucinations: None Delusions: Not Present Thought Process: Intact Thought Content: positive for Intact and positive for Suicidal Ideation (Passive at this time, no intent or plan.) Depressive Symptoms: Unhappiness and Thoughts of /Suicide Judgement: Good Diagnostics Vital Signs (24Hr): Vital Signs - 24 hr 03/25/22 08:37 Temperature 97.4 F Pulse Rate 92 Respiratory Rate 18 Blood Pressure 121/61 Pulse Oximetry 96 Oxygen Delivery Method Room Air BMI result Body Mass Index 40.3 Labs Results: 03/21/22 04:36 03/21/22 04:35 Medications Medications Current Medications Acetaminophen (Acetaminophen 325 Mg Tablet) 650 mg PO Q6H PRN PRN Reason: Headache/Pain Mild Scale (1-3) Last Admin: 03/24/22 11:42 Dose: 650 mg Al Hydroxide/Mg Hydroxide (Magnesium Hydrox/Alum Hydrox 30 Ml Oral.Susp) 30 ml PO Q6H PRN PRN Reason: Heartburn/Nausea Alprazolam (Alprazolam 0.5 Mg Tablet) 1 mg PO QID PRN PRN Reason: Anxiety Last Admin: 03/25/22 08:34 Dose: 1 mg Amphetamine/Dextroamphetamine (Amphetamine Mixed Salts 20 Mg Tablet) 20 mg PO DAILY [facility] Last Admin: 03/25/22 08:30 Dose: 20 mg Bisacodyl (Bisacodyl 5 Mg Tablet.Dr) 10 mg PO DAILY PRN PRN Reason: Constipation Last Admin: 03/25/22 14:52 Dose: 10 mg Hydroxyzine HCl (Hydroxyzine Hcl 25 Mg Tablet) 25 mg PO Q6H PRN PRN Reason: Anxiety Last Admin: 03/25/22 11:00 Dose: 25 mg [place] Carbonate ([place] Carbonate Er 300 Mg Tablet.Er) 600 mg PO BID [facility] Last Admin: 03/25/22 08:30 Dose: 600 mg Magnesium Hydroxide (Milk Of Magnesia 30 Ml Oral.Susp) 30 ml PO DAILY PRN PRN Reason: Constipation Last Admin: 03/25/22 11:00 Dose: 30 ml Melatonin (Melatonin 3 Mg Tablet) 9 mg PO BEDTIME [facility] Last Admin: 03/24/22 21:46 Dose: 9 mg Nicotine (Nicotine 14 Mg Patch.Td24) 14 mg TRANSDERMA DAILY [facility] Last Admin: 03/25/22 08:30 Dose: 14 mg Nicotine Polacrilex (Nicotine Polacrilex 2 Mg Gum) 2 mg BUCCAL Q2H PRN PRN Reason: nicotine withdrawal Patient Own Medication ( Desvenlafaxine 100 Mg Er Tablet) 1 tab PO DAILY [facility] Last Admin: 03/25/22 08:29 Dose: 1 tab Olanzapine (Olanzapine 10 Mg Tablet) 10 mg PO BID PRN PRN Reason: impulsivity, SI, self-harm, ag Prazosin HCl 10 mg/ Prazosin (HCl 4 mg) 14 mg PO BEDTIME [facility] Last Admin: 03/24/22 21:45 Dose: 14 mg Thiamine HCl (Thiamine Hcl 100 Mg Tablet) 100 mg PO DAILY [facility] Last Admin: 03/25/22 08:30 Dose: 100 mg Trazodone HCl (Trazodone Hcl 50 Mg Tablet) 250 mg PO BEDTIME [facility] Last Admin: 03/24/22 21:46 Dose: 250 mg Vitamin D (Cholecalciferol (Vitamin D3) 25 Mcg Tablet) 50 mcg PO DAILY [facility] Last Admin: 03/25/22 08:30 Dose: 50 mcg Allergies Allergies Allergy/AdvReac Type Severity Reaction Status Date / Time Sulfa (Sulfonamide Allergy Unknown HIVES Verified 03/15/21 14:13 Antibiotics) [SULFA (SULFONAMIDE ANTIBIOTICS)] sulfamethoxazole Allergy Unknown HIVES Verified 03/15/21 14:13 [From BACTRIM] trimethoprim [From BACTRIM] Allergy Unknown HIVES Verified 03/15/21 14:13 oseltamivir [From Tamiflu] AdvReac Sensation Verified 09/29/21 11:20 of bugs crawling on skin. Assessment & Plan Assessment & Plan (1) PTSD (post-traumatic stress disorder): Status: Acute Code(s): F43.10 - Post-traumatic stress disorder, unspecified (2) MDD (major depressive disorder), recurrent severe, without psychosis: Status: Acute Code(s): F33.2 - Major depressive disorder, recurrent severe without psychotic features (3) Suicidal ideation: Status: Acute Code(s): R45.851 - Suicidal ideations Plan 36 yo non binary, prefers they/them pronouns with SI. 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 Several serious precipitants-holidays, anniversary of the loss of a child they planned to co-parent and therapist moved from the area at the end of Feb 2022 however pt will be continuing via [employer]. Plan: Message left for Nathen Mesa. Pt wanting to change Pristiq, possibly re-start Olanzapine. We would like his input if possible. Pristiq ordered from [employer] as it is not on formulary Collateral contact as needed Assist pt to re-establish safety. 03/24/22: Continue current plan. 03/25/22: Olanzapine prn Patient educated on: medication risk/benefits and therapeutic strategies Informed Consent: understands and further education needed Reason for contiued inpatient stay Substantial Risk for: harm to self and rapid decompensation Time Spent With Patient Time: Total time managing care of this patient today _20___ minutes.
[2022-03-25] MEDS: Melatonin 3 MG TABLET 9 MG PO (20:40)
[2022-03-25] MEDS: PRAZOSIN HCL 14 MG PO (20:41)
[2022-03-25] MEDS: traZODone HCL 50 MG TABLET 250 MG PO (20:41)
[2022-03-26] MEDS: ALPRAZolam 0.5 MG TABLET 1 MG PO ×3 (03:59→22:22)
[2022-03-26 06:00] VITALS: BP 133/71; PULSE 82; RESP 17; TEMP 36.6; O2SAT 96
[2022-03-26] MEDS: Nicotine 14 MG PATCH.TD24 TRANSDERMA (09:41)
[2022-03-26] MEDS: Thiamine HCL 100 MG TABLET PO (09:42)
[2022-03-26] MEDS: Cholecalciferol (Vitamin D3) 25 MCG TABLET 50 MCG PO (09:42)
[2022-03-26] MEDS: Lithium Carbonate ER 300 MG TABLET.ER 600 MG PO ×2 (09:43→21:14)
[2022-03-26] MEDS: Amphetamine Mixed Salts 20 MG TABLET PO (09:43)
[2022-03-26] MEDS: bisacodyL 5 MG TABLET.DR 10 MG PO (11:51)
[2022-03-26] MEDS: hydrOXYzine HCL 25 MG TABLET PO (14:14)
--- NOTE | 2022-03-26 16:30 | HO.PSYCHPN ---
Subjective Subjective Date of Service: 03/26/22 Reason For Visit: Depression SI PTSD Subjective Notes: Conditional Voluntary Healthcare Proxy: No Guardianship: No Medical Problems Affecting Mental Status: No Interim History: Reports a difficult day-Holiday, loss of child, intense feelings and memories Reports ongoing constipation-will order lactulose Medication Compliance: Yes Side effects from medications: No Attending Groups: Yes Review of Systems Acute medical concerns: No Medical Review of Systems: unchanged Mental Status Exam Mental Status Exam Narrative: NAD. Normally ambulation. Motor activity calm. Patient Appearance: Well Grooomed and Appropriate Patient Orientation: Person, Place, Time and Situation Level of Consciousness: Appropriate Patient Behavior: Appropriate and Cooperative Mood Description: Appropriate Affect Description: Appropriate and Anxious (slightly) Patient Cognition Impaired: No Ability to Follow Directions: Excellent Speech Pattern: Clear, Appropriate and Coherent Memory Description: Intact Hallucinations: None Delusions: Not Present Thought Process: Intact Thought Content: positive for Intact and positive for Suicidal Ideation (Passive at this time, no intent or plan.) Depressive Symptoms: Unhappiness and Thoughts of /Suicide Judgement: Good Diagnostics Vital Signs (24Hr): Vital Signs - 24 hr 03/25/22 18:00 03/26/22 06:00 Temperature 97.1 F 97.8 F Pulse Rate 82 82 Respiratory Rate 17 Blood Pressure 127/75 133/71 Pulse Oximetry 99 96 Oxygen Delivery Method Room Air Room Air BMI result Body Mass Index 40.3 Labs Results: 03/21/22 04:36 03/21/22 04:35 Medications Medications Current Medications Acetaminophen (Acetaminophen 325 Mg Tablet) 650 mg PO Q6H PRN PRN Reason: Headache/Pain Mild Scale (1-3) Last Admin: 03/24/22 11:42 Dose: 650 mg Al Hydroxide/Mg Hydroxide (Magnesium Hydrox/Alum Hydrox 30 Ml Oral.Susp) 30 ml PO Q6H PRN PRN Reason: Heartburn/Nausea Amphetamine/Dextroamphetamine (Amphetamine Mixed Salts 20 Mg Tablet) 20 mg PO DAILY [facility] Last Admin: 03/26/22 09:43 Dose: 20 mg Bisacodyl (Bisacodyl 5 Mg Tablet.Dr) 10 mg PO DAILY PRN PRN Reason: Constipation Last Admin: 03/26/22 11:51 Dose: 10 mg Hydroxyzine HCl (Hydroxyzine Hcl 25 Mg Tablet) 25 mg PO Q6H PRN PRN Reason: Anxiety Last Admin: 03/26/22 14:14 Dose: 25 mg [place] Carbonate ([place] Carbonate Er 300 Mg Tablet.Er) 600 mg PO BID [facility] Last Admin: 03/26/22 09:43 Dose: 600 mg Magnesium Hydroxide (Milk Of Magnesia 30 Ml Oral.Susp) 30 ml PO DAILY PRN PRN Reason: Constipation Last Admin: 03/25/22 11:00 Dose: 30 ml Melatonin (Melatonin 3 Mg Tablet) 9 mg PO BEDTIME [facility] Last Admin: 03/25/22 20:40 Dose: 9 mg Nicotine (Nicotine 14 Mg Patch.Td24) 14 mg TRANSDERMA DAILY [facility] Last Admin: 03/26/22 09:41 Dose: 14 mg Nicotine Polacrilex (Nicotine Polacrilex 2 Mg Gum) 2 mg BUCCAL Q2H PRN PRN Reason: nicotine withdrawal Patient Own Medication ( Desvenlafaxine 100 Mg Er Tablet) 1 tab PO DAILY [facility] Last Admin: 03/26/22 09:42 Dose: 1 tab Olanzapine (Olanzapine 10 Mg Tablet) 10 mg PO BID PRN PRN Reason: impulsivity, SI, self-harm, ag Prazosin HCl 10 mg/ Prazosin (HCl 4 mg) 14 mg PO BEDTIME [facility] Last Admin: 03/25/22 20:41 Dose: 14 mg Thiamine HCl (Thiamine Hcl 100 Mg Tablet) 100 mg PO DAILY [facility] Last Admin: 03/26/22 09:42 Dose: 100 mg Trazodone HCl (Trazodone Hcl 50 Mg Tablet) 250 mg PO BEDTIME [facility] Last Admin: 03/25/22 20:41 Dose: 250 mg Vitamin D (Cholecalciferol (Vitamin D3) 25 Mcg Tablet) 50 mcg PO DAILY [facility] Last Admin: 03/26/22 09:42 Dose: 50 mcg Allergies Allergies Allergy/AdvReac Type Severity Reaction Status Date / Time Sulfa (Sulfonamide Allergy Unknown HIVES Verified 03/15/21 14:13 Antibiotics) [SULFA (SULFONAMIDE ANTIBIOTICS)] sulfamethoxazole Allergy Unknown HIVES Verified 03/15/21 14:13 [From BACTRIM] trimethoprim [From BACTRIM] Allergy Unknown HIVES Verified 03/15/21 14:13 oseltamivir [From Tamiflu] AdvReac Sensation Verified 09/29/21 11:20 of bugs crawling on skin. Assessment & Plan Assessment & Plan (1) PTSD (post-traumatic stress disorder): Status: Acute Code(s): F43.10 - Post-traumatic stress disorder, unspecified (2) MDD (major depressive disorder), recurrent severe, without psychosis: Status: Acute Code(s): F33.2 - Major depressive disorder, recurrent severe without psychotic features (3) Suicidal ideation: Status: Acute Code(s): R45.851 - Suicidal ideations Plan 36 yo non binary, prefers they/them pronouns with SI. 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 Several serious precipitants-holidays, anniversary of the loss of a child they planned to co-parent and therapist moved from the area at the end of Feb 2022 however pt will be continuing via [employer]. Plan: Message left for Nathen Mesa. Pt wanting to change Pristiq, possibly re-start Olanzapine. We would like his input if possible. Pristiq ordered from [employer] as it is not on formulary Collateral contact as needed Assist pt to re-establish safety. 03/24/22: Continue current plan. 03/25/22: Olanzapine prn 03/26/22: Lactulose for constipation Safety discussion with pt. Increase in anxiety after her ER experience. Working with team to manage her impulsivity. Patient educated on: medication risk/benefits and therapeutic strategies Informed Consent: understands Reason for contiued inpatient stay Substantial Risk for: harm to self Time Spent With Patient Time: Total time managing care of this patient today _15___ minutes.
[2022-03-26 18:00] VITALS: BP 141/89; PULSE 90; TEMP 36.2; O2SAT 98
[2022-03-26] MEDS: Lactulose 20 GM/30 ML SOLUTION PO (18:22)
[2022-03-26] MEDS: traZODone HCL 50 MG TABLET 250 MG PO (21:14)
[2022-03-26] MEDS: PRAZOSIN HCL 14 MG PO (21:14)
[2022-03-26] MEDS: Melatonin 3 MG TABLET 9 MG PO (21:14)
[2022-03-27] MEDS: ALPRAZolam 0.5 MG TABLET 1 MG PO ×3 (08:14→22:45)
[2022-03-27] MEDS: Lithium Carbonate ER 300 MG TABLET.ER 600 MG PO ×2 (08:14→22:46)
[2022-03-27] MEDS: Thiamine HCL 100 MG TABLET PO (08:14)
[2022-03-27] MEDS: Amphetamine Mixed Salts 20 MG TABLET PO (08:14)
[2022-03-27] MEDS: Cholecalciferol (Vitamin D3) 25 MCG TABLET 50 MCG PO (08:14)
[2022-03-27] MEDS: hydrOXYzine HCL 25 MG TABLET PO (09:56)
[2022-03-27] MEDS: Nicotine Polacrilex 2 MG GUM BUCCAL (09:56)
[2022-03-27 10:23] VITALS: BP 126/69; PULSE 90; RESP 18; TEMP 36.6; O2SAT 97
--- NOTE | 2022-03-27 11:41 | HO.PSYCHPN ---
Subjective Subjective Date of Service: 03/27/22 Reason For Visit: Depression SI PTSD Subjective Notes: Conditional Voluntary Healthcare Proxy: No Guardianship: No Interim History: Patient was seen and discussed in rounds today. Records and plans were reviewed. They continue to be on one-to-one. They have been isolative. They have not been sleeping well and we discussed options and I will increase there trazodone to 300 mg. Eating adequately. No other changes were made Medication Compliance: Yes Side effects from medications: No Review of Systems Review of Systems Yes all other systems are reviewed and are negative Psychiatric: Reports anxiety, Reports depression, Reports difficulty concentrating, Reports hopelessness, Reports anhedonia and Reports suicidal ideation Diagnostics Vital Signs (24Hr): Vital Signs - 24 hr 03/26/22 18:00 03/27/22 10:23 Temperature 97.1 F 97.8 F Pulse Rate 90 90 Respiratory Rate 18 Blood Pressure 141/89 H 126/69 Pulse Oximetry 98 97 Oxygen Delivery Method Room Air Room Air BMI result Body Mass Index 40.3 Labs Results: 03/21/22 04:36 03/21/22 04:35 Medications Medications Current Medications Acetaminophen (Acetaminophen 325 Mg Tablet) 650 mg PO Q6H PRN PRN Reason: Headache/Pain Mild Scale (1-3) Last Admin: 03/24/22 11:42 Dose: 650 mg Al Hydroxide/Mg Hydroxide (Magnesium Hydrox/Alum Hydrox 30 Ml Oral.Susp) 30 ml PO Q6H PRN PRN Reason: Heartburn/Nausea Alprazolam (Alprazolam 0.5 Mg Tablet) 1 mg PO QID PRN PRN Reason: anxiety, panic Last Admin: 03/27/22 08:14 Dose: 1 mg Amphetamine/Dextroamphetamine (Amphetamine Mixed Salts 20 Mg Tablet) 20 mg PO DAILY [facility] Last Admin: 03/27/22 08:14 Dose: 20 mg Bisacodyl (Bisacodyl 5 Mg Tablet.Dr) 10 mg PO DAILY PRN PRN Reason: Constipation Last Admin: 03/26/22 11:51 Dose: 10 mg Hydroxyzine HCl (Hydroxyzine Hcl 25 Mg Tablet) 25 mg PO Q6H PRN PRN Reason: Anxiety Last Admin: 03/27/22 09:56 Dose: 25 mg [place] Carbonate ([place] Carbonate Er 300 Mg Tablet.Er) 600 mg PO BID [facility] Last Admin: 03/27/22 08:14 Dose: 600 mg Magnesium Hydroxide (Milk Of Magnesia 30 Ml Oral.Susp) 30 ml PO DAILY PRN PRN Reason: Constipation Last Admin: 03/25/22 11:00 Dose: 30 ml Melatonin (Melatonin 3 Mg Tablet) 9 mg PO BEDTIME [facility] Last Admin: 03/26/22 21:14 Dose: 9 mg Nicotine (Nicotine 14 Mg Patch.Td24) 14 mg TRANSDERMA DAILY [facility] Last Admin: 03/27/22 08:15 Dose: Not Given Nicotine Polacrilex (Nicotine Polacrilex 2 Mg Gum) 2 mg BUCCAL Q2H PRN PRN Reason: nicotine withdrawal Last Admin: 03/27/22 09:56 Dose: 2 mg Patient Own Medication ( Desvenlafaxine 100 Mg Er Tablet) 1 tab PO DAILY [facility] Last Admin: 03/27/22 08:13 Dose: 1 tab Olanzapine (Olanzapine 10 Mg Tablet) 10 mg PO BID PRN PRN Reason: impulsivity, SI, self-harm, ag Prazosin HCl 10 mg/ Prazosin (HCl 4 mg) 14 mg PO BEDTIME [facility] Last Admin: 03/26/22 21:14 Dose: 14 mg Thiamine HCl (Thiamine Hcl 100 Mg Tablet) 100 mg PO DAILY [facility] Last Admin: 03/27/22 08:14 Dose: 100 mg Trazodone HCl (Trazodone Hcl 50 Mg Tablet) 250 mg PO BEDTIME [facility] Last Admin: 03/26/22 21:14 Dose: 250 mg Vitamin D (Cholecalciferol (Vitamin D3) 25 Mcg Tablet) 50 mcg PO DAILY [facility] Last Admin: 03/27/22 08:14 Dose: 50 mcg Allergies Allergies Allergy/AdvReac Type Severity Reaction Status Date / Time Sulfa (Sulfonamide Allergy Unknown HIVES Verified 03/15/21 14:13 Antibiotics) [SULFA (SULFONAMIDE ANTIBIOTICS)] sulfamethoxazole Allergy Unknown HIVES Verified 03/15/21 14:13 [From BACTRIM] trimethoprim [From BACTRIM] Allergy Unknown HIVES Verified 03/15/21 14:13 oseltamivir [From Tamiflu] AdvReac Sensation Verified 09/29/21 11:20 of bugs crawling on skin. Assessment & Plan Assessment & Plan (1) PTSD (post-traumatic stress disorder): Status: Acute Code(s): F43.10 - Post-traumatic stress disorder, unspecified (2) MDD (major depressive disorder), recurrent severe, without psychosis: Status: Acute Code(s): F33.2 - Major depressive disorder, recurrent severe without psychotic features (3) Suicidal ideation: Status: Acute Code(s): R45.851 - Suicidal ideations Plan 36 yo non binary, prefers they/them pronouns with SI. 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 Several serious precipitants-holidays, anniversary of the loss of a child they planned to co-parent and therapist moved from the area at the end of Feb 2022 however pt will be continuing via [employer]. Plan: Message left for Nathen Mesa. Pt wanting to change Pristiq, possibly re-start Olanzapine. We would like his input if possible. Pristiq ordered from [employer] as it is not on formulary Collateral contact as needed Assist pt to re-establish safety. 03/24/22: Continue current plan. 03/25/22: Olanzapine prn 03/26/22: Lactulose for constipation Safety discussion with pt. Increase in anxiety after her ER experience. Working with team to manage her impulsivity. 03/27: Continue current regimen and plans with increase of trazodone to 300 mg Patient educated on: medication risk/benefits Reason for contiued inpatient stay Substantial Risk for: med/psych decompensation Time Spent With Patient Time: Total time managing care of this patient today ____ minutes.
[2022-03-27 22:35] VITALS: BP 144/62; PULSE 67; TEMP 36.1
[2022-03-27] MEDS: PRAZOSIN HCL 14 MG PO (22:41)
[2022-03-27] MEDS: traZODone HCL 100 MG TABLET 300 MG PO (22:44)
[2022-03-27] MEDS: Melatonin 3 MG TABLET 9 MG PO (22:46)
[2022-03-28] MEDS: Amphetamine Mixed Salts 20 MG TABLET PO (09:03)
[2022-03-28] MEDS: Cholecalciferol (Vitamin D3) 25 MCG TABLET 50 MCG PO (09:03)
[2022-03-28] MEDS: ALPRAZolam 0.5 MG TABLET 1 MG PO ×4 (09:04→21:36)
[2022-03-28] MEDS: Lithium Carbonate ER 300 MG TABLET.ER 600 MG PO ×2 (09:04→21:42)
[2022-03-28] MEDS: Thiamine HCL 100 MG TABLET PO (09:04)
[2022-03-28 09:07] VITALS: BP 119/66; PULSE 88; RESP 18; TEMP 36.7; O2SAT 97
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
[2022-03-28] MEDS: hydrOXYzine HCL 25 MG TABLET PO (17:05)
[2022-03-28 21:25] VITALS: BP 134/65; PULSE 73; TEMP 35.9
[2022-03-28] MEDS: OLANZapine 10 MG TABLET PO (21:36)
[2022-03-28] MEDS: PRAZOSIN HCL 14 MG PO (21:37)
[2022-03-28] MEDS: traZODone HCL 100 MG TABLET 300 MG PO (21:39)
[2022-03-28] MEDS: Melatonin 3 MG TABLET 9 MG PO (21:42)
[2022-03-29 08:01] VITALS: BP 127/62; PULSE 108; RESP 16; TEMP 37.1; O2SAT 97
[2022-03-29] MEDS: Cholecalciferol (Vitamin D3) 25 MCG TABLET 50 MCG PO (09:00)
[2022-03-29] MEDS: Thiamine HCL 100 MG TABLET PO (09:00)
[2022-03-29] MEDS: Amphetamine Mixed Salts 20 MG TABLET PO (09:00)
[2022-03-29] MEDS: Lithium Carbonate ER 300 MG TABLET.ER 600 MG PO ×2 (09:00→21:09)
[2022-03-29] MEDS: Nicotine Polacrilex 2 MG GUM BUCCAL (09:32)
[2022-03-29] MEDS: ALPRAZolam 0.5 MG TABLET 1 MG PO ×3 (09:32→17:36)
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
[2022-03-29] MEDS: bisacodyL 5 MG TABLET.DR 10 MG PO (10:36)
[2022-03-29 18:00] VITALS: BP 135/73; PULSE 79; RESP 18; O2SAT 97
[2022-03-29] MEDS: Melatonin 3 MG TABLET 9 MG PO (21:09)
[2022-03-29] MEDS: OLANZapine 10 MG TABLET PO (21:09)
[2022-03-29] MEDS: traZODone HCL 100 MG TABLET 300 MG PO (21:09)
[2022-03-29] MEDS: PRAZOSIN HCL 14 MG PO (21:10)
[2022-03-30] MEDS: Lithium Carbonate ER 300 MG TABLET.ER 600 MG PO ×2 (09:05→21:18)
[2022-03-30] MEDS: Thiamine HCL 100 MG TABLET PO (09:05)
[2022-03-30] MEDS: Amphetamine Mixed Salts 20 MG TABLET PO (09:05)
[2022-03-30] MEDS: Cholecalciferol (Vitamin D3) 25 MCG TABLET 50 MCG PO (09:05)
[2022-03-30 09:10] VITALS: BP 145/72; PULSE 81; RESP 18; TEMP 36.8; O2SAT 99
[2022-03-30] MEDS: ALPRAZolam 0.5 MG TABLET 1 MG PO ×3 (09:17→22:07)
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
[2022-03-30 18:00] VITALS: BP 136/74; PULSE 74; RESP 16; TEMP 36.4; O2SAT 99
[2022-03-30] MEDS: traZODone HCL 100 MG TABLET 300 MG PO (21:18)
[2022-03-30] MEDS: Melatonin 3 MG TABLET 9 MG PO (21:18)
[2022-03-30] MEDS: PRAZOSIN HCL 14 MG PO (21:18)
[2022-03-31 06:00] VITALS: BP 132/66; PULSE 88; RESP 16; TEMP 36.7
[2022-03-31] MEDS: Cholecalciferol (Vitamin D3) 25 MCG TABLET 50 MCG PO (09:29)
[2022-03-31] MEDS: ALPRAZolam 0.5 MG TABLET 1 MG PO ×2 (09:29→21:07)
[2022-03-31] MEDS: Dextroamphetamine/Amphetamine XR 10 MG CAP.ER.24H 30 MG PO (09:29)
[2022-03-31] MEDS: Lithium Carbonate ER 300 MG TABLET.ER 600 MG PO ×2 (09:30→21:10)
[2022-03-31] MEDS: Thiamine HCL 100 MG TABLET 200 MG PO (09:30)
[2022-03-31 09:57] LABS: Strep A Nucleic Acid Negative (Negative)
[2022-03-31 09:59] LABS: COVID-19 Test Positive (Negative); IDNOW Serial# BCCEAD1C
[2022-03-31] MEDS: Acetaminophen 325 MG TABLET 650 MG PO ×2 (13:12→18:17)
[2022-03-31] MEDS: Throat Lozenge, Medicated LOZENGE 1 LOZENGE MUCOUS MEM ×2 (17:03→21:08)
[2022-03-31] MEDS: Throat Spray, Medicated 177 ML BOTTLE 1 SPRAY MUCOUS MEM ×2 (17:04→21:11)
--- NOTE | 2022-03-31 17:27 | HO.PSYCHPN ---
Subjective Subjective Date of Service: 03/31/22 Reason For Visit: Depression SI PTSD Subjective Notes: Conditional Voluntary Healthcare Proxy: No Guardianship: No Medical Problems Affecting Mental Status: No Interim History: Pt tested positive for COVD with active sx. Resting in bed Requested ibuprofen prn. Showered with her one to one support which she reports helped her to feel improved. 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 Normally ambulation. Motor activity calm. Patient Appearance: Well Grooomed and Appropriate Patient Orientation: Person, Place, Time and Situation Level of Consciousness: Appropriate Patient Behavior: Appropriate and Cooperative Mood Description: Appropriate Affect Description: Appropriate and Anxious (slightly) Patient Cognition Impaired: No Ability to Follow Directions: Excellent Speech Pattern: Clear, Appropriate and Coherent Memory Description: Intact Hallucinations: None Delusions: Not Present Thought Process: Intact Thought Content: positive for Intact and positive for Suicidal Ideation (Passive at this time, no intent or plan.) Depressive Symptoms: Unhappiness and Thoughts of /Suicide Judgement: Good Diagnostics Vital Signs (24Hr): Vital Signs - 24 hr 03/30/22 18:00 03/31/22 06:00 Temperature 97.5 F 98.0 F Pulse Rate 74 88 Respiratory Rate 16 16 Blood Pressure 136/74 132/66 Pulse Oximetry 99 Oxygen Delivery Method Room Air Room Air BMI result Body Mass Index 40.3 Labs Results: 03/21/22 04:36 04/01/22 08:13 Labs: Laboratory Results - last 48 hr 03/31/22 03/31/22 09:35 09:35 COVID-19 ([facility]ANK) Positive A COVID-19 Clin Com See Note S. pyogenes GrpA SONAL Negative Medications Medications Current Medications Acetaminophen (Acetaminophen 325 Mg Tablet) 650 mg PO Q6H PRN PRN Reason: Headache/Pain Mild Scale (1-3) Last Admin: 03/31/22 13:12 Dose: 650 mg Al Hydroxide/Mg Hydroxide (Magnesium Hydrox/Alum Hydrox 30 Ml Oral.Susp) 30 ml PO Q6H PRN PRN Reason: Heartburn/Nausea Alprazolam (Alprazolam 0.5 Mg Tablet) 1 mg PO QID PRN PRN Reason: anxiety, panic Last Admin: 03/31/22 09:29 Dose: 1 mg Amphetamine/Dextroamphetamine (Dextroamphetamine/Amphetamine Xr 10 Mg Cap.Er.24h) 30 mg PO DAILY [facility] Last Admin: 03/31/22 09:29 Dose: 30 mg Benzocaine (Throat Lozenge, Medicated Lozenge) 1 lozenge MUCOUS MEM Q2H PRN PRN Reason: Sore Throat Last Admin: 03/31/22 17:03 Dose: 1 lozenge Bisacodyl (Bisacodyl 5 Mg Tablet.Dr) 10 mg PO DAILY PRN PRN Reason: Constipation Last Admin: 03/29/22 10:36 Dose: 10 mg Hydroxyzine HCl (Hydroxyzine Hcl 25 Mg Tablet) 25 mg PO Q6H PRN PRN Reason: Anxiety Last Admin: 03/28/22 17:05 Dose: 25 mg [place] Carbonate ([place] Carbonate Er 300 Mg Tablet.Er) 600 mg PO BID [facility] Last Admin: 03/31/22 09:30 Dose: 600 mg Magnesium Hydroxide (Milk Of Magnesia 30 Ml Oral.Susp) 30 ml PO DAILY PRN PRN Reason: Constipation Last Admin: 03/25/22 11:00 Dose: 30 ml Melatonin (Melatonin 3 Mg Tablet) 9 mg PO BEDTIME [facility] Last Admin: 03/30/22 21:18 Dose: 9 mg Multi-Ingred Medicated Throat [place] (Throat [place], Medicated 177 Ml Bottle) 1 spray MUCOUS MEM Q2H PRN PRN Reason: Sore Throat Last Admin: 03/31/22 17:04 Dose: 1 spray Nicotine (Nicotine 14 Mg Patch.Td24) 14 mg TRANSDERMA DAILY [facility] Last Admin: 03/31/22 09:30 Dose: Not Given Nicotine Polacrilex (Nicotine Polacrilex 2 Mg Gum) 2 mg BUCCAL Q2H PRN PRN Reason: nicotine withdrawal Last Admin: 03/29/22 09:32 Dose: 2 mg Patient Own Medication ( Desvenlafaxine 100 Mg Er Tablet) 1 tab PO DAILY [facility] Last Admin: 03/31/22 09:29 Dose: 1 tab Olanzapine (Olanzapine 10 Mg Tablet) 10 mg PO BID PRN PRN Reason: impulsivity, SI, self-harm, ag Last Admin: 03/29/22 21:09 Dose: 10 mg Prazosin HCl 10 mg/ Prazosin (HCl 4 mg) 14 mg PO BEDTIME [facility] Last Admin: 03/30/22 21:18 Dose: 14 mg Thiamine HCl (Thiamine Hcl 100 Mg Tablet) 200 mg PO DAILY [facility] Last Admin: 03/31/22 09:30 Dose: 200 mg Trazodone HCl (Trazodone Hcl 100 Mg Tablet) 300 mg PO BEDTIME [facility] Last Admin: 03/30/22 21:18 Dose: 300 mg Vitamin D (Cholecalciferol (Vitamin D3) 25 Mcg Tablet) 50 mcg PO DAILY [facility] Last Admin: 03/31/22 09:29 Dose: 50 mcg Allergies Allergies Allergy/AdvReac Type Severity Reaction Status Date / Time Sulfa (Sulfonamide Allergy Unknown HIVES Verified 03/15/21 14:13 Antibiotics) [SULFA (SULFONAMIDE ANTIBIOTICS)] sulfamethoxazole Allergy Unknown HIVES Verified 03/15/21 14:13 [From BACTRIM] trimethoprim [From BACTRIM] Allergy Unknown HIVES Verified 03/15/21 14:13 oseltamivir [From Tamiflu] AdvReac Sensation Verified 09/29/21 11:20 of bugs crawling on skin. Assessment & Plan Assessment & Plan (1) PTSD (post-traumatic stress disorder): Status: Acute Code(s): F43.10 - Post-traumatic stress disorder, unspecified (2) MDD (major depressive disorder), recurrent severe, without psychosis: Status: Acute Code(s): F33.2 - Major depressive disorder, recurrent severe without psychotic features (3) Suicidal ideation: Status: Acute Code(s): R45.851 - Suicidal ideations Plan 36 yo non binary, prefers they/them pronouns with SI. S/P attempt via lying on railroad tracks [employer]. Several serious precipitants-holidays, anniversary of the loss of a child they planned to co-parent and therapist moved from the area at the end of Feb 2022 however pt will be continuing via telehelath. Plan: Message left for Nathen Mesa. Pt wanting to change Pristiq, possibly re-start Olanzapine. We would like his input if possible. Pristiq ordered from [employer] as it is not on formulary Collateral contact as needed Assist pt to re-establish safety. 03/24/22: Continue current plan. 03/25/22: Olanzapine prn 03/26/22: Lactulose for constipation Safety discussion with pt. Increase in anxiety after her ER experience. Working with team to manage her impulsivity. 03/27: Continue current regimen and plans with increase of trazodone to 300 mg 03/28: Continue current plans and regimen. 03/29: Continue current regimen and plans. A 3 day notice has been placed 03/30/22: On 03/31, Increase Adderall to 30 mg XR q a.m. 03/31/22: Ibuprofen prn. Monitor [place] level and BMP Patient educated on: medication risk/benefits, therapeutic strategies and medical condition Informed Consent: understands Reason for contiued inpatient stay Substantial Risk for: harm to self Time Spent With Patient Time: Total time managing care of this patient today _15___ minutes.
[2022-03-31] MEDS: Ibuprofen 600 MG TABLET PO (19:41)
[2022-03-31 20:05] VITALS: BP 138/69; PULSE 94; TEMP 36.6
[2022-03-31] MEDS: PRAZOSIN HCL 14 MG PO (21:08)
[2022-03-31] MEDS: traZODone HCL 100 MG TABLET 300 MG PO (21:10)
[2022-03-31] MEDS: Melatonin 3 MG TABLET 9 MG PO (21:11)
[2022-04-01] MEDS: ALPRAZolam 0.5 MG TABLET 1 MG PO ×4 (02:39→21:38)
[2022-04-01] MEDS: Acetaminophen 325 MG TABLET 650 MG PO ×3 (02:39→21:38)
[2022-04-01] MEDS: Throat Spray, Medicated 177 ML BOTTLE 1 SPRAY MUCOUS MEM ×4 (02:39→21:40)
[2022-04-01 08:30] VITALS: BP 125/59; PULSE 68; RESP 16; TEMP 37.1; O2SAT 98
[2022-04-01] MEDS: Dextroamphetamine/Amphetamine XR 10 MG CAP.ER.24H 30 MG PO (08:30)
[2022-04-01] MEDS: Thiamine HCL 100 MG TABLET 200 MG PO (08:31)
[2022-04-01] MEDS: Lithium Carbonate ER 300 MG TABLET.ER 600 MG PO ×2 (08:31→21:39)
[2022-04-01] MEDS: Cholecalciferol (Vitamin D3) 25 MCG TABLET 50 MCG PO (08:31)
[2022-04-01] MEDS: Throat Lozenge, Medicated LOZENGE 1 LOZENGE MUCOUS MEM ×3 (08:37→21:40)
[2022-04-01] MEDS: Ibuprofen 600 MG TABLET PO ×2 (08:37→16:23)
[2022-04-01 10:07] LABS: Lithium 0.79 mmol/L (0.60-1.20)
[2022-04-01 10:28] LABS: Anion Gap 8 (12-20); Blood Urea Nitrogen 7 mg/dL (9-16); Calcium 8.6 mg/dL (8.4-10.2); Carbon Dioxide 26 mmol/L (22-29); Chloride 109 mmol/L (96-108); Creatinine Clr Calc Pharmacy 110.2; Estimated Glomerular Filt Rate > 60; Glucose Random 84 mg/dL (60-115); Potassium 4.3 mmol/L (3.3-5.1); Sodium 139 mmol/L (135-145)
[2022-04-01 18:00] VITALS: BP 127/71; PULSE 78; TEMP 36.8; O2SAT 98
--- NOTE | 2022-04-01 18:30 | P.PNPSI_ITS ---
Subjective Subjective Date of Service: 04/01/22 Reason For Visit: Depression SI PTSD Subjective Notes: Conditional Voluntary Healthcare Proxy: No Guardianship: No Medical Problems Affecting Mental Status: No Interim History: Reports difficulty with sleep. Requests melatonin increase. Continues to report strong COVID sx. Resting in bed, awake, anergic, feeling as if this virus has knocked me down . 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 One to one remains in place. Medication Compliance: Yes Side effects from medications: No Attending Groups: No Review of Systems Acute medical concerns: No Medical Review of Systems: unchanged Mental Status Exam Mental Status Exam Narrative: NAD. Normally ambulation. Motor activity calm. Patient Appearance: Well Grooomed and Appropriate Patient Orientation: Person, Place, Time and Situation Level of Consciousness: Appropriate Patient Behavior: Appropriate, Cooperative, Fatigued and Good Eye Contact Mood Description: Withdrawn, Appropriate and Flat Affect Description: Withdrawn, Appropriate, Anxious (slightly) and Flat Patient Cognition Impaired: No Ability to Follow Directions: Excellent Speech Pattern: Clear, Appropriate and Coherent Memory Description: Intact Hallucinations: None Delusions: Not Present Thought Process: Intact Thought Content: positive for Intact and positive for Suicidal Ideation (Passive at this time, no intent or plan.) Depressive Symptoms: Unhappiness and Thoughts of /Suicide Judgement: Fair Diagnostics Vital Signs (24Hr): Vital Signs - 24 hr 03/31/22 20:05 04/01/22 08:30 Temperature 97.8 F 98.7 F Pulse Rate 94 68 Respiratory Rate 16 Blood Pressure 138/69 125/59 L Pulse Oximetry 98 Oxygen Delivery Method Room Air BMI result Body Mass Index 40.3 Labs Results: 03/21/22 04:36 04/01/22 08:13 Labs: Laboratory Results - last 48 hr 03/31/22 03/31/22 04/01/22 09:35 09:35 08:13 Sodium 139 Potassium 4.3 Chloride 109 H Carbon Dioxide 26 Anion Gap 8 L BUN 7 L Creatinine 0.91 Estim Creat Clear Calc 110.2 Estimated GFR > 60 Random Glucose 84 Calcium 8.6 D [place] COVID-19 ([facility]ANK) Positive A COVID-19 Clin Com See Note S. pyogenes GrpA SONAL Negative 04/01/22 08:13 Sodium Potassium Chloride Carbon Dioxide Anion Gap BUN Creatinine Estim Creat Clear Calc Estimated GFR Random Glucose Calcium [place] 0.79 COVID-19 ([facility]) COVID-19 Clin Com S. pyogenes GrpA SONAL Medications Medications Current Medications Acetaminophen (Acetaminophen 325 Mg Tablet) 650 mg PO Q6H PRN PRN Reason: Headache/Pain Mild Scale (1-3) Last Admin: 04/01/22 11:24 Dose: 650 mg Al Hydroxide/Mg Hydroxide (Magnesium Hydrox/Alum Hydrox 30 Ml Oral.Susp) 30 ml PO Q6H PRN PRN Reason: Heartburn/Nausea Alprazolam (Alprazolam 0.5 Mg Tablet) 1 mg PO QID PRN PRN Reason: anxiety, panic Last Admin: 04/01/22 16:29 Dose: 1 mg Amphetamine/Dextroamphetamine (Dextroamphetamine/Amphetamine Xr 10 Mg Cap.Er.24h) 30 mg PO DAILY [facility] Last Admin: 04/01/22 08:30 Dose: 30 mg Benzocaine (Throat Lozenge, Medicated Lozenge) 1 lozenge MUCOUS MEM Q2H PRN PRN Reason: Sore Throat Last Admin: 04/01/22 16:24 Dose: 1 lozenge Bisacodyl (Bisacodyl 5 Mg Tablet.Dr) 10 mg PO DAILY PRN PRN Reason: Constipation Last Admin: 03/29/22 10:36 Dose: 10 mg Hydroxyzine HCl (Hydroxyzine Hcl 25 Mg Tablet) 25 mg PO Q6H PRN PRN Reason: Anxiety Last Admin: 03/28/22 17:05 Dose: 25 mg Ibuprofen (Ibuprofen 600 Mg Tablet) 600 mg PO Q8H PRN PRN Reason: covid sx relief Last Admin: 04/01/22 16:23 Dose: 600 mg [place] Carbonate ([place] Carbonate Er 300 Mg Tablet.Er) 600 mg PO BID [facility] Last Admin: 04/01/22 08:31 Dose: 600 mg Magnesium Hydroxide (Milk Of Magnesia 30 Ml Oral.Susp) 30 ml PO DAILY PRN PRN Reason: Constipation Last Admin: 03/25/22 11:00 Dose: 30 ml Melatonin (Melatonin 3 Mg Tablet) 9 mg PO BEDTIME [facility] Last Admin: 03/31/22 21:11 Dose: 9 mg Multi-Ingred Medicated Throat [place] (Throat [place], Medicated 177 Ml Bottle) 1 spray MUCOUS MEM Q2H PRN PRN Reason: Sore Throat Last Admin: 04/01/22 16:24 Dose: 1 spray Nicotine (Nicotine 14 Mg Patch.Td24) 14 mg TRANSDERMA DAILY [facility] Last Admin: 04/01/22 09:17 Dose: Not Given Nicotine Polacrilex (Nicotine Polacrilex 2 Mg Gum) 2 mg BUCCAL Q2H PRN PRN Reason: nicotine withdrawal Last Admin: 03/29/22 09:32 Dose: 2 mg Patient Own Medication ( Desvenlafaxine 100 Mg Er Tablet) 1 tab PO DAILY [facility] Last Admin: 04/01/22 08:29 Dose: 1 tab Olanzapine (Olanzapine 10 Mg Tablet) 10 mg PO BID PRN PRN Reason: impulsivity, SI, self-harm, ag Last Admin: 03/29/22 21:09 Dose: 10 mg Prazosin HCl 10 mg/ Prazosin (HCl 4 mg) 14 mg PO BEDTIME [facility] Last Admin: 03/31/22 21:08 Dose: 14 mg Thiamine HCl (Thiamine Hcl 100 Mg Tablet) 200 mg PO DAILY [facility] Last Admin: 04/01/22 08:31 Dose: 200 mg Trazodone HCl (Trazodone Hcl 100 Mg Tablet) 300 mg PO BEDTIME [facility] Last Admin: 03/31/22 21:10 Dose: 300 mg Vitamin D (Cholecalciferol (Vitamin D3) 25 Mcg Tablet) 50 mcg PO DAILY [facility] Last Admin: 04/01/22 08:31 Dose: 50 mcg Allergies Allergies Allergy/AdvReac Type Severity Reaction Status Date / Time Sulfa (Sulfonamide Allergy Unknown HIVES Verified 03/15/21 14:13 Antibiotics) [SULFA (SULFONAMIDE ANTIBIOTICS)] sulfamethoxazole Allergy Unknown HIVES Verified 03/15/21 14:13 [From BACTRIM] trimethoprim [From BACTRIM] Allergy Unknown HIVES Verified 03/15/21 14:13 oseltamivir [From Tamiflu] AdvReac Sensation Verified 09/29/21 11:20 of bugs crawling on skin. Assessment & Plan Assessment & Plan (1) PTSD (post-traumatic stress disorder): Status: Acute Code(s): F43.10 - Post-traumatic stress disorder, unspecified (2) MDD (major depressive disorder), recurrent severe, without psychosis: Status: Acute Code(s): F33.2 - Major depressive disorder, recurrent severe without psychotic features (3) Suicidal ideation: Status: Acute Code(s): R45.851 - Suicidal ideations Plan 36 yo non binary, prefers they/them pronouns with SI. 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 Several serious precipitants-holidays, anniversary of the loss of a child they planned to co-parent and therapist moved from the area at the end of Feb 2022 however pt will be continuing via telehelath. Plan: Message left for Nathen Mesa. Pt wanting to change Pristiq, possibly re-start Olanzapine. We would like his input if possible. Pristiq ordered from [employer] as it is not on formulary Collateral contact as needed Assist pt to re-establish safety. 03/24/22: Continue current plan. 03/25/22: Olanzapine prn 03/26/22: Lactulose for constipation Safety discussion with pt. Increase in anxiety after her ER experience. Working with team to manage her impulsivity. 03/27: Continue current regimen and plans with increase of trazodone to 300 mg 03/28: Continue current plans and regimen. 03/29: Continue current regimen and plans. A 3 day notice has been placed 03/30/22: On 03/31, Increase Adderall to 30 mg XR q a.m. 04/01/22: Increase Melatonin to 11 mg HS. Patient educated on: medication risk/benefits and therapeutic strategies Informed Consent: understands and further education needed Reason for contiued inpatient stay Substantial Risk for: med/psych decompensation Time Spent With Patient Time: Total time managing care of this patient today __15__ minutes.
[2022-04-01] MEDS: Melatonin 3 MG TABLET 12 MG PO (21:37)
[2022-04-01] MEDS: traZODone HCL 100 MG TABLET 300 MG PO (21:38)
[2022-04-01] MEDS: PRAZOSIN HCL 14 MG PO (21:47)
[2022-04-02] MEDS: Ibuprofen 600 MG TABLET PO ×2 (04:31→16:55)
[2022-04-02 06:00] VITALS: BP 100/58; PULSE 87; RESP 18; TEMP 36.6; O2SAT 98
[2022-04-02] MEDS: Dextroamphetamine/Amphetamine XR 10 MG CAP.ER.24H 30 MG PO (08:39)
[2022-04-02] MEDS: Throat Lozenge, Medicated LOZENGE 1 LOZENGE MUCOUS MEM ×2 (08:40→14:44)
[2022-04-02] MEDS: Acetaminophen 325 MG TABLET 650 MG PO ×2 (08:40→22:16)
[2022-04-02] MEDS: Lithium Carbonate ER 300 MG TABLET.ER 600 MG PO ×2 (08:40→20:42)
[2022-04-02] MEDS: ALPRAZolam 0.5 MG TABLET 1 MG PO ×3 (08:40→22:16)
[2022-04-02] MEDS: Thiamine HCL 100 MG TABLET 200 MG PO (08:41)
[2022-04-02] MEDS: Cholecalciferol (Vitamin D3) 25 MCG TABLET 50 MCG PO (08:41)
[2022-04-02] MEDS: Throat Spray, Medicated 177 ML BOTTLE 1 SPRAY MUCOUS MEM ×3 (08:42→22:18)
[2022-04-02] MEDS: guaiFENesin DM 600/30 1 TAB TAB.ER.12H PO (16:55)
[2022-04-02 18:00] VITALS: BP 132/78; PULSE 92; RESP 16; TEMP 36.4; O2SAT 99
[2022-04-02] MEDS: traZODone HCL 100 MG TABLET 300 MG PO (20:40)
[2022-04-02] MEDS: Melatonin 3 MG TABLET 12 MG PO (20:40)
[2022-04-02] MEDS: PRAZOSIN HCL 14 MG PO (20:41)
--- NOTE | 2022-04-02 20:53 | P.PNPSI_ITS ---
Subjective Subjective Date of Service: 04/02/22 Reason For Visit: Depression SI PTSD Subjective Notes: Conditional Voluntary Healthcare Proxy: No Guardianship: No Medical Problems Affecting Mental Status: No Interim History: Brief meeting with pt. She is symptomatic with COVID and with a one to one in bed, resting, not in favor of discussion. Reports anergy, body aches, congestion, cough. Ordered Mucinex DM prn to assist. Pt reports I have no energy to harm myself and is able to provide assurances of her safety. Medication Compliance: Yes Side effects from medications: No Attending Groups: No Review of Systems Acute medical concerns: No Medical Review of Systems: unchanged Mental Status Exam Mental Status Exam Patient Appearance: Well Grooomed and Appropriate Patient Orientation: Person, Place, Time and Situation Level of Consciousness: Appropriate Patient Behavior: Appropriate, Cooperative, Fatigued and Good Eye Contact Mood Description: Withdrawn, Appropriate and Flat Affect Description: Withdrawn, Appropriate, Anxious (slightly) and Flat Patient Cognition Impaired: No Ability to Follow Directions: Excellent Speech Pattern: Clear, Appropriate and Coherent Memory Description: Intact Hallucinations: None Delusions: Not Present Thought Process: Intact Thought Content: positive for Intact and positive for Suicidal Ideation (Passive at this time, no intent or plan.) Depressive Symptoms: Unhappiness and Thoughts of /Suicide Judgement: Fair Diagnostics Vital Signs (24Hr): Vital Signs - 24 hr 04/02/22 06:00 Temperature 97.8 F Pulse Rate 87 Respiratory Rate 18 Blood Pressure 100/58 L Pulse Oximetry 98 Oxygen Delivery Method Room Air BMI result Body Mass Index 40.3 Labs Results: 03/21/22 04:36 04/01/22 08:13 Labs: Laboratory Results - last 48 hr 04/01/22 04/01/22 08:13 08:13 Sodium 139 Potassium 4.3 Chloride 109 H Carbon Dioxide 26 Anion Gap 8 L BUN 7 L Creatinine 0.91 Estim Creat Clear Calc 110.2 Estimated GFR > 60 Random Glucose 84 Calcium 8.6 D [place] 0.79 Medications Medications Current Medications Acetaminophen (Acetaminophen 325 Mg Tablet) 650 mg PO Q6H PRN PRN Reason: Headache/Pain Mild Scale (1-3) Last Admin: 04/02/22 08:40 Dose: 650 mg Al Hydroxide/Mg Hydroxide (Magnesium Hydrox/Alum Hydrox 30 Ml Oral.Susp) 30 ml PO Q6H PRN PRN Reason: Heartburn/Nausea Alprazolam (Alprazolam 0.5 Mg Tablet) 1 mg PO QID PRN PRN Reason: anxiety, panic Last Admin: 04/02/22 14:44 Dose: 1 mg Amphetamine/Dextroamphetamine (Dextroamphetamine/Amphetamine Xr 10 Mg Cap.Er.24h) 30 mg PO DAILY [facility] Last Admin: 04/02/22 08:39 Dose: 30 mg Benzocaine (Throat Lozenge, Medicated Lozenge) 1 lozenge MUCOUS MEM Q2H PRN PRN Reason: Sore Throat Last Admin: 04/02/22 14:44 Dose: 1 lozenge Bisacodyl (Bisacodyl 5 Mg Tablet.Dr) 10 mg PO DAILY PRN PRN Reason: Constipation Last Admin: 03/29/22 10:36 Dose: 10 mg Guaifenesin/Dextromethorphan (Guaifenesin Dm 600/30 1 Tab Tab.Er.12h) 1 tab PO BID PRN PRN Reason: cough, congestion Last Admin: 04/02/22 16:55 Dose: 1 tab Hydroxyzine HCl (Hydroxyzine Hcl 25 Mg Tablet) 25 mg PO Q6H PRN PRN Reason: Anxiety Last Admin: 03/28/22 17:05 Dose: 25 mg Ibuprofen (Ibuprofen 600 Mg Tablet) 600 mg PO Q8H PRN PRN Reason: covid sx relief Last Admin: 04/02/22 16:55 Dose: 600 mg [place] Carbonate ([place] Carbonate Er 300 Mg Tablet.Er) 600 mg PO BID [facility] Last Admin: 04/02/22 20:42 Dose: 600 mg Magnesium Hydroxide (Milk Of Magnesia 30 Ml Oral.Susp) 30 ml PO DAILY PRN PRN Reason: Constipation Last Admin: 03/25/22 11:00 Dose: 30 ml Melatonin (Melatonin 3 Mg Tablet) 12 mg PO BEDTIME [facility] Last Admin: 04/02/22 20:40 Dose: 12 mg Multi-Ingred Medicated Throat [place] (Throat [place], Medicated 177 Ml Bottle) 1 spray MUCOUS MEM Q2H PRN PRN Reason: Sore Throat Last Admin: 04/02/22 14:44 Dose: 1 spray Nicotine (Nicotine 14 Mg Patch.Td24) 14 mg TRANSDERMA DAILY [facility] Last Admin: 04/02/22 08:52 Dose: Not Given Nicotine Polacrilex (Nicotine Polacrilex 2 Mg Gum) 2 mg BUCCAL Q2H PRN PRN Reason: nicotine withdrawal Last Admin: 03/29/22 09:32 Dose: 2 mg Patient Own Medication ( Desvenlafaxine 100 Mg Er Tablet) 1 tab PO DAILY [facility] Last Admin: 04/02/22 08:42 Dose: 1 tab Olanzapine (Olanzapine 10 Mg Tablet) 10 mg PO BID PRN PRN Reason: impulsivity, SI, self-harm, ag Last Admin: 03/29/22 21:09 Dose: 10 mg Prazosin HCl 10 mg/ Prazosin (HCl 4 mg) 14 mg PO BEDTIME [facility] Last Admin: 04/02/22 20:41 Dose: 14 mg Thiamine HCl (Thiamine Hcl 100 Mg Tablet) 200 mg PO DAILY [facility] Last Admin: 04/02/22 08:41 Dose: 200 mg Trazodone HCl (Trazodone Hcl 100 Mg Tablet) 300 mg PO BEDTIME [facility] Last Admin: 04/02/22 20:40 Dose: 300 mg Vitamin D (Cholecalciferol (Vitamin D3) 25 Mcg Tablet) 50 mcg PO DAILY [facility] Last Admin: 04/02/22 08:41 Dose: 50 mcg Allergies Allergies Allergy/AdvReac Type Severity Reaction Status Date / Time Sulfa (Sulfonamide Allergy Unknown HIVES Verified 03/15/21 14:13 Antibiotics) [SULFA (SULFONAMIDE ANTIBIOTICS)] sulfamethoxazole Allergy Unknown HIVES Verified 03/15/21 14:13 [From BACTRIM] trimethoprim [From BACTRIM] Allergy Unknown HIVES Verified 03/15/21 14:13 oseltamivir [From Tamiflu] AdvReac Sensation Verified 09/29/21 11:20 of bugs crawling on skin. Assessment & Plan Assessment & Plan (1) PTSD (post-traumatic stress disorder): Status: Acute Code(s): F43.10 - Post-traumatic stress disorder, unspecified (2) MDD (major depressive disorder), recurrent severe, without psychosis: Status: Acute Code(s): F33.2 - Major depressive disorder, recurrent severe without psychotic features (3) Suicidal ideation: Status: Acute Code(s): R45.851 - Suicidal ideations Plan 36 yo non binary, prefers they/them pronouns with SI. 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 Several serious precipitants-holidays, anniversary of the loss of a child they planned to co-parent and therapist moved from the area at the end of Feb 2022 however pt will be continuing via telehelath. Plan: Message left for Nathen Mesa. Pt wanting to change Pristiq, possibly re-start Olanzapine. We would like his input if possible. Pristiq ordered from [email or web address] as it is not on formulary Collateral contact as needed Assist pt to re-establish safety. 03/24/22: Continue current plan. 03/25/22: Olanzapine prn 03/26/22: Lactulose for constipation Safety discussion with pt. Increase in anxiety after her ER experience. Working with team to manage her impulsivity. 03/27: Continue current regimen and plans with increase of trazodone to 300 mg 03/28: Continue current plans and regimen. 03/29: Continue current regimen and plans. A 3 day notice has been placed 03/30/22: On 03/31, Increase Adderall to 30 mg XR q a.m. 04/01/22: Increase Melatonin to 11 mg HS. 04/02/22: Continue current regime Mucinex DM prn Patient educated on: medical condition Informed Consent: understands Reason for contiued inpatient stay Substantial Risk for: med/psych decompensation Time Spent With Patient Time: Total time managing care of this patient today ___15_ minutes.
[2022-04-03] MEDS: Ibuprofen 600 MG TABLET PO ×3 (03:30→21:56)
[2022-04-03] MEDS: Throat Spray, Medicated 177 ML BOTTLE 1 SPRAY MUCOUS MEM ×2 (03:30→10:20)
[2022-04-03 06:00] VITALS: BP 108/73; PULSE 100; RESP 16; TEMP 36.4; O2SAT 98
[2022-04-03] MEDS: Lithium Carbonate ER 300 MG TABLET.ER 600 MG PO ×2 (09:48→21:42)
[2022-04-03] MEDS: Thiamine HCL 100 MG TABLET 200 MG PO (09:48)
[2022-04-03] MEDS: Cholecalciferol (Vitamin D3) 25 MCG TABLET 50 MCG PO (09:48)
[2022-04-03] MEDS: Dextroamphetamine/Amphetamine XR 10 MG CAP.ER.24H 30 MG PO (09:48)
[2022-04-03] MEDS: Acetaminophen 325 MG TABLET 650 MG PO ×2 (10:20→16:34)
[2022-04-03] MEDS: Throat Lozenge, Medicated LOZENGE 1 LOZENGE MUCOUS MEM (10:20)
[2022-04-03] MEDS: ALPRAZolam 0.5 MG TABLET 1 MG PO ×2 (10:20→21:42)
[2022-04-03] MEDS: guaiFENesin DM 600/30 1 TAB TAB.ER.12H PO (10:20)
[2022-04-03] MEDS: Azithromycin 250 MG TABLET 500 MG PO (16:34)
[2022-04-03 18:00] VITALS: BP 132/71; PULSE 82; TEMP 36.2; O2SAT 96
--- NOTE | 2022-04-03 19:27 | P.PNPSI_ITS ---
Subjective Subjective Date of Service: 04/03/22 Reason For Visit: Depression SI PTSD Subjective Notes: Conditional Voluntary Interim History: Some relief from COVID sx, however with ear ache, sore throat. Discussion of need for antibiotic trial Feeling well enough, asks for fresh air break. Discussed with team who will coordinate. Medication Compliance: Yes Side effects from medications: No Attending Groups: No Review of Systems Acute medical concerns: No Medical Review of Systems: unchanged Mental Status Exam Mental Status Exam Patient Appearance: Well Grooomed and Appropriate Patient Orientation: Person, Place, Time and Situation Level of Consciousness: Appropriate Patient Behavior: Appropriate, Cooperative, Fatigued and Good Eye Contact Mood Description: Withdrawn, Appropriate and Flat Affect Description: Withdrawn, Appropriate, Anxious (slightly) and Flat Patient Cognition Impaired: No Ability to Follow Directions: Excellent Speech Pattern: Clear, Appropriate and Coherent Memory Description: Intact Hallucinations: None Delusions: Not Present Thought Process: Intact Thought Content: positive for Intact and positive for Suicidal Ideation (Passive at this time, no intent or plan.) Depressive Symptoms: Unhappiness and Thoughts of /Suicide Judgement: Fair Diagnostics Vital Signs (24Hr): Vital Signs - 24 hr 04/03/22 06:00 04/03/22 18:00 Temperature 97.6 F 97.1 F Pulse Rate 100 82 Respiratory Rate 16 Blood Pressure 108/73 132/71 Pulse Oximetry 98 96 Oxygen Delivery Method Room Air Room Air BMI result Body Mass Index 40.3 Labs Results: 03/21/22 04:36 04/01/22 08:13 Medications Medications Current Medications Acetaminophen (Acetaminophen 325 Mg Tablet) 650 mg PO Q6H PRN PRN Reason: Headache/Pain Mild Scale (1-3) Last Admin: 04/03/22 16:34 Dose: 650 mg Al Hydroxide/Mg Hydroxide (Magnesium Hydrox/Alum Hydrox 30 Ml Oral.Susp) 30 ml PO Q6H PRN PRN Reason: Heartburn/Nausea Alprazolam (Alprazolam 0.5 Mg Tablet) 1 mg PO QID PRN PRN Reason: anxiety, panic Last Admin: 04/03/22 10:20 Dose: 1 mg Amphetamine/Dextroamphetamine (Dextroamphetamine/Amphetamine Xr 10 Mg Cap.Er.24h) 30 mg PO DAILY [facility] Last Admin: 04/03/22 09:48 Dose: 30 mg Azithromycin (Azithromycin 250 Mg Tablet) 250 mg PO Q24H [facility] Stop: 04/08/22 07:00 Benzocaine (Throat Lozenge, Medicated Lozenge) 1 lozenge MUCOUS MEM Q2H PRN PRN Reason: Sore Throat Last Admin: 04/03/22 10:20 Dose: 1 lozenge Bisacodyl (Bisacodyl 5 Mg Tablet.Dr) 10 mg PO DAILY PRN PRN Reason: Constipation Last Admin: 03/29/22 10:36 Dose: 10 mg Guaifenesin/Dextromethorphan (Guaifenesin Dm 600/30 1 Tab Tab.Er.12h) 1 tab PO BID PRN PRN Reason: cough, congestion Last Admin: 04/03/22 10:20 Dose: 1 tab Hydroxyzine HCl (Hydroxyzine Hcl 25 Mg Tablet) 25 mg PO Q6H PRN PRN Reason: Anxiety Last Admin: 03/28/22 17:05 Dose: 25 mg Ibuprofen (Ibuprofen 600 Mg Tablet) 600 mg PO Q8H PRN PRN Reason: covid sx relief Last Admin: 04/03/22 12:35 Dose: 600 mg Normal Carbonate (Normal Carbonate Er 300 Mg Tablet.Er) 600 mg PO BID [facility] Last Admin: 04/03/22 09:48 Dose: 600 mg Magnesium Hydroxide (Milk Of Magnesia 30 Ml Oral.Susp) 30 ml PO DAILY PRN PRN Reason: Constipation Last Admin: 03/25/22 11:00 Dose: 30 ml Melatonin (Melatonin 3 Mg Tablet) 12 mg PO BEDTIME [facility] Last Admin: 04/02/22 20:40 Dose: 12 mg Multi-Ingred Medicated Throat [place] (Throat [place], Medicated 177 Ml Bottle) 1 spray MUCOUS MEM Q2H PRN PRN Reason: Sore Throat Last Admin: 04/03/22 10:20 Dose: 1 spray Nicotine (Nicotine 14 Mg Patch.Td24) 14 mg TRANSDERMA DAILY [facility] Last Admin: 04/03/22 09:49 Dose: Not Given Nicotine Polacrilex (Nicotine Polacrilex 2 Mg Gum) 2 mg BUCCAL Q2H PRN PRN Reason: nicotine withdrawal Last Admin: 03/29/22 09:32 Dose: 2 mg Patient Own Medication ( Desvenlafaxine 100 Mg Er Tablet) 1 tab PO DAILY [facility] Last Admin: 04/03/22 10:19 Dose: 1 tab Olanzapine (Olanzapine 10 Mg Tablet) 10 mg PO BID PRN PRN Reason: impulsivity, SI, self-harm, ag Last Admin: 03/29/22 21:09 Dose: 10 mg Prazosin HCl 10 mg/ Prazosin (HCl 4 mg) 14 mg PO BEDTIME [facility] Last Admin: 04/02/22 20:41 Dose: 14 mg Thiamine HCl (Thiamine Hcl 100 Mg Tablet) 200 mg PO DAILY [facility] Last Admin: 04/03/22 09:48 Dose: 200 mg Trazodone HCl (Trazodone Hcl 100 Mg Tablet) 300 mg PO BEDTIME [facility] Last Admin: 04/02/22 20:40 Dose: 300 mg Vitamin D (Cholecalciferol (Vitamin D3) 25 Mcg Tablet) 50 mcg PO DAILY [facility] Last Admin: 04/03/22 09:48 Dose: 50 mcg Allergies Allergies Allergy/AdvReac Type Severity Reaction Status Date / Time Sulfa (Sulfonamide Allergy Unknown HIVES Verified 03/15/21 14:13 Antibiotics) [SULFA (SULFONAMIDE ANTIBIOTICS)] sulfamethoxazole Allergy Unknown HIVES Verified 03/15/21 14:13 [From BACTRIM] trimethoprim [From BACTRIM] Allergy Unknown HIVES Verified 03/15/21 14:13 oseltamivir [From Tamiflu] AdvReac Sensation Verified 09/29/21 11:20 of bugs crawling on skin. Assessment & Plan Assessment & Plan (1) PTSD (post-traumatic stress disorder): Status: Acute Code(s): F43.10 - Post-traumatic stress disorder, unspecified (2) MDD (major depressive disorder), recurrent severe, without psychosis: Status: Acute Code(s): F33.2 - Major depressive disorder, recurrent severe without psychotic features (3) Suicidal ideation: Status: Acute Code(s): R45.851 - Suicidal ideations Plan 36 yo non binary, prefers they/them pronouns with SI. 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 Several serious precipitants-holidays, anniversary of the loss of a child they planned to co-parent and therapist moved from the area at the end of Feb 2022 however pt will be continuing via [employer]. Plan: Message left for Nathen Mesa. Pt wanting to change Pristiq, possibly re-start Olanzapine. We would like his input if possible. Pristiq ordered from [employer] as it is not on formulary Collateral contact as needed Assist pt to re-establish safety. 03/24/22: Continue current plan. 03/25/22: Olanzapine prn 03/26/22: Lactulose for constipation Safety discussion with pt. Increase in anxiety after her ER experience. Working with team to manage her impulsivity. 03/27: Continue current regimen and plans with increase of trazodone to 300 mg 03/28: Continue current plans and regimen. 03/29: Continue current regimen and plans. A 3 day notice has been placed 03/30/22: On 03/31, Increase Adderall to 30 mg XR q a.m. 04/01/22: Increase Melatonin to 11 mg HS. 04/02/22: Continue current regime Mucinex DM prn 04/03/22: Azithromycin 500 mg today, 250 mg x 4 days thereafter Patient educated on: medication risk/benefits and medical condition Informed Consent: understands Reason for contiued inpatient stay Substantial Risk for: med/psych decompensation Time Spent With Patient Time: Total time managing care of this patient today __20__ minutes.
[2022-04-03] MEDS: PRAZOSIN HCL 14 MG PO (21:42)
[2022-04-03] MEDS: traZODone HCL 100 MG TABLET 300 MG PO (21:43)
[2022-04-03] MEDS: Melatonin 3 MG TABLET 12 MG PO (21:43)
[2022-04-04 06:00] VITALS: BP 125/76; PULSE 86; RESP 16; TEMP 36.7; O2SAT 98
[2022-04-04] MEDS: Thiamine HCL 100 MG TABLET 200 MG PO (08:28)
[2022-04-04] MEDS: Dextroamphetamine/Amphetamine XR 10 MG CAP.ER.24H 30 MG PO (08:28)
[2022-04-04] MEDS: Lithium Carbonate ER 300 MG TABLET.ER 600 MG PO ×2 (08:28→20:23)
[2022-04-04] MEDS: Cholecalciferol (Vitamin D3) 25 MCG TABLET 50 MCG PO (08:29)
[2022-04-04] MEDS: Throat Spray, Medicated 177 ML BOTTLE 1 SPRAY MUCOUS MEM ×2 (08:32→20:24)
[2022-04-04] MEDS: Ibuprofen 600 MG TABLET PO ×2 (08:56→20:24)
[2022-04-04] MEDS: ALPRAZolam 0.5 MG TABLET 1 MG PO ×2 (11:09→20:24)
[2022-04-04] MEDS: Azithromycin 250 MG TABLET PO (14:33)
--- NOTE | 2022-04-04 15:15 | P.PNPSI_ITS ---
Subjective Subjective Date of Service: 04/04/22 Reason For Visit: Depression SI PTSD Subjective Notes: Conditional Voluntary Healthcare Proxy: No Guardianship: No Medical Problems Affecting Mental Status: No Interim History: Remains symptomatic with COVID- sleeping when tw was to meet with her. One to one in place. Medication Compliance: Yes Side effects from medications: No Attending Groups: No Review of Systems Acute medical concerns: No Medical Review of Systems: unchanged Mental Status Exam Mental Status Exam Patient Appearance: Well Grooomed and Appropriate Patient Orientation: Person, Place, Time and Situation Level of Consciousness: Appropriate Patient Behavior: Appropriate, Cooperative, Fatigued and Good Eye Contact Mood Description: Withdrawn, Appropriate and Flat Affect Description: Withdrawn, Appropriate, Anxious (slightly) and Flat Patient Cognition Impaired: No Ability to Follow Directions: Excellent Speech Pattern: Clear, Appropriate and Coherent Memory Description: Intact Hallucinations: None Delusions: Not Present Thought Process: Intact Thought Content: positive for Intact and positive for Suicidal Ideation (Passive at this time, no intent or plan.) Depressive Symptoms: Unhappiness and Thoughts of /Suicide Judgement: Fair Diagnostics Vital Signs (24Hr): Vital Signs - 24 hr 04/03/22 18:00 04/04/22 06:00 Temperature 97.1 F 98.1 F Pulse Rate 82 86 Respiratory Rate 16 Blood Pressure 132/71 125/76 Pulse Oximetry 96 98 Oxygen Delivery Method Room Air Room Air BMI result Body Mass Index 40.3 Labs Results: 03/21/22 04:36 04/01/22 08:13 Medications Medications Current Medications Acetaminophen (Acetaminophen 325 Mg Tablet) 650 mg PO Q6H PRN PRN Reason: Headache/Pain Mild Scale (1-3) Last Admin: 04/03/22 16:34 Dose: 650 mg Al Hydroxide/Mg Hydroxide (Magnesium Hydrox/Alum Hydrox 30 Ml Oral.Susp) 30 ml PO Q6H PRN PRN Reason: Heartburn/Nausea Alprazolam (Alprazolam 0.5 Mg Tablet) 1 mg PO QID PRN PRN Reason: anxiety, panic Last Admin: 04/04/22 11:09 Dose: 1 mg Amphetamine/Dextroamphetamine (Dextroamphetamine/Amphetamine Xr 10 Mg Cap.Er.24h) 30 mg PO DAILY [facility] Last Admin: 04/04/22 08:28 Dose: 30 mg Azithromycin (Azithromycin 250 Mg Tablet) 250 mg PO Q24H [facility] Stop: 04/08/22 07:00 Last Admin: 04/04/22 14:33 Dose: 250 mg Benzocaine (Throat Lozenge, Medicated Lozenge) 1 lozenge MUCOUS MEM Q2H PRN PRN Reason: Sore Throat Last Admin: 04/03/22 10:20 Dose: 1 lozenge Bisacodyl (Bisacodyl 5 Mg Tablet.Dr) 10 mg PO DAILY PRN PRN Reason: Constipation Last Admin: 03/29/22 10:36 Dose: 10 mg Guaifenesin/Dextromethorphan (Guaifenesin Dm 600/30 1 Tab Tab.Er.12h) 1 tab PO BID PRN PRN Reason: cough, congestion Last Admin: 04/03/22 10:20 Dose: 1 tab Hydroxyzine HCl (Hydroxyzine Hcl 25 Mg Tablet) 25 mg PO Q6H PRN PRN Reason: Anxiety Last Admin: 03/28/22 17:05 Dose: 25 mg Ibuprofen (Ibuprofen 600 Mg Tablet) 600 mg PO Q8H PRN PRN Reason: covid sx relief Last Admin: 04/04/22 08:56 Dose: 600 mg [place] Carbonate ([place] Carbonate Er 300 Mg Tablet.Er) 600 mg PO BID [facility] [place] Last Admin: 04/04/22 08:28 Dose: 600 mg Magnesium Hydroxide (Milk Of Magnesia 30 Ml Oral.Susp) 30 ml PO DAILY PRN PRN Reason: Constipation Last Admin: 03/25/22 11:00 Dose: 30 ml Melatonin (Melatonin 3 Mg Tablet) 12 mg PO BEDTIME [facility] [place] Last Admin: 04/03/22 21:43 Dose: 12 mg Multi-Ingred Medicated Throat [place] (Throat [place], Medicated 177 Ml Bottle) 1 spray MUCOUS MEM Q2H PRN PRN Reason: Sore Throat Last Admin: 04/04/22 08:32 Dose: 1 spray Nicotine (Nicotine 14 Mg Patch.Td24) 14 mg TRANSDERMA DAILY [facility] [place] Last Admin: 04/04/22 08:33 Dose: Not Given Nicotine Polacrilex (Nicotine Polacrilex 2 Mg Gum) 2 mg BUCCAL Q2H PRN PRN Reason: nicotine withdrawal Last Admin: 03/29/22 09:32 Dose: 2 mg Patient Own Medication ( Desvenlafaxine 100 Mg Er Tablet) 1 tab PO DAILY [facility] [place] Last Admin: 04/04/22 08:29 Dose: 1 tab Olanzapine (Olanzapine 10 Mg Tablet) 10 mg PO BID PRN PRN Reason: impulsivity, SI, self-harm, ag Last Admin: 03/29/22 21:09 Dose: 10 mg Prazosin HCl 10 mg/ Prazosin (HCl 4 mg) 14 mg PO BEDTIME [facility] [place] Last Admin: 04/03/22 21:42 Dose: 14 mg Thiamine HCl (Thiamine Hcl 100 Mg Tablet) 200 mg PO DAILY [facility] [place] Last Admin: 04/04/22 08:28 Dose: 200 mg Trazodone HCl (Trazodone Hcl 100 Mg Tablet) 300 mg PO BEDTIME [facility] [place] Last Admin: 04/03/22 21:43 Dose: 300 mg Vitamin D (Cholecalciferol (Vitamin D3) 25 Mcg Tablet) 50 mcg PO DAILY [facility] [place] Last Admin: 04/04/22 08:29 Dose: 50 mcg Allergies Allergies Allergy/AdvReac Type Severity Reaction Status Date / Time Sulfa (Sulfonamide Allergy Unknown HIVES Verified 03/15/21 14:13 Antibiotics) [SULFA (SULFONAMIDE ANTIBIOTICS)] sulfamethoxazole Allergy Unknown HIVES Verified 03/15/21 14:13 [From BACTRIM] trimethoprim [From BACTRIM] Allergy Unknown HIVES Verified 03/15/21 14:13 oseltamivir [From Tamiflu] AdvReac Sensation Verified 09/29/21 11:20 of bugs crawling on skin. Assessment & Plan Assessment & Plan (1) PTSD (post-traumatic stress disorder): Status: Acute Code(s): F43.10 - Post-traumatic stress disorder, unspecified (2) MDD (major depressive disorder), recurrent severe, without psychosis: Status: Acute Code(s): F33.2 - Major depressive disorder, recurrent severe without psychotic features (3) Suicidal ideation: Status: Acute Code(s): R45.851 - Suicidal ideations Plan 36 yo non binary, prefers they/them pronouns with SI. 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 Several serious precipitants-holidays, anniversary of the loss of a child they planned to co-parent and therapist moved from the area at the end of Feb 2022 however pt will be continuing via [email or web address]. Plan: Message left for Nathen Mesa. Pt wanting to change Pristiq, possibly re-start Olanzapine. We would like his input if possible. Pristiq ordered from [employer] as it is not on formulary Collateral contact as needed Assist pt to re-establish safety. 03/24/22: Continue current plan. 03/25/22: Olanzapine prn 03/26/22: Lactulose for constipation Safety discussion with pt. Increase in anxiety after her ER experience. Working with team to manage her impulsivity. 03/27: Continue current regimen and plans with increase of trazodone to 300 mg 03/28: Continue current plans and regimen. 03/29: Continue current regimen and plans. A 3 day notice has been placed 03/30/22: On 03/31, Increase Adderall to 30 mg XR q a.m. 04/01/22: Increase Melatonin to 11 mg HS. 04/02/22: Continue current regime Mucinex DM prn 04/03/22: Azithromycin 500 mg today, 250 mg x 4 days thereafter 04/04/22: Continue current regime Informed Consent: understands Reason for contiued inpatient stay Substantial Risk for: med/psych decompensation Time Spent With Patient Time: Total time managing care of this patient today ___15_ minutes.
[2022-04-04 17:24] VITALS: BP 139/62; PULSE 85; RESP 16; TEMP 36.2; O2SAT 98
[2022-04-04] MEDS: Melatonin 3 MG TABLET 12 MG PO (20:22)
[2022-04-04] MEDS: PRAZOSIN HCL 14 MG PO (20:23)
[2022-04-04] MEDS: traZODone HCL 100 MG TABLET 300 MG PO (20:23)
[2022-04-04] MEDS: guaiFENesin DM 600/30 1 TAB TAB.ER.12H PO (20:23)
[2022-04-05 06:00] VITALS: BP 128/61; PULSE 73; RESP 16; TEMP 36.4; O2SAT 97
[2022-04-05] MEDS: Dextroamphetamine/Amphetamine XR 10 MG CAP.ER.24H 30 MG PO (08:35)
[2022-04-05] MEDS: Lithium Carbonate ER 300 MG TABLET.ER 600 MG PO ×2 (08:35→20:57)
[2022-04-05] MEDS: Thiamine HCL 100 MG TABLET 200 MG PO (08:36)
[2022-04-05] MEDS: Cholecalciferol (Vitamin D3) 25 MCG TABLET 50 MCG PO (08:36)
[2022-04-05] MEDS: guaiFENesin DM 600/30 1 TAB TAB.ER.12H PO ×2 (09:08→20:55)
[2022-04-05] MEDS: Ibuprofen 600 MG TABLET PO ×2 (09:08→20:56)
[2022-04-05] MEDS: ALPRAZolam 0.5 MG TABLET 1 MG PO ×2 (09:08→20:55)
[2022-04-05] MEDS: Throat Spray, Medicated 177 ML BOTTLE 1 SPRAY MUCOUS MEM ×3 (09:09→20:58)
[2022-04-05] MEDS: Azithromycin 250 MG TABLET PO (14:04)
--- NOTE | 2022-04-05 14:08 | PC.NURSE ---
pt givenantibiotic a bit early due to having a facetime call with therapist at 2:45
[2022-04-05 18:00] VITALS: BP 135/92; PULSE 72; TEMP 36.1; O2SAT 97
[2022-04-05] MEDS: Loperamide HCl 2 MG CAPSULE 4 MG PO (19:08)
--- NOTE | 2022-04-05 19:21 | P.PNPSI_ITS ---
Subjective Subjective Date of Service: 04/05/22 Reason For Visit: Depression SI PTSD Subjective Notes: Conditional Voluntary Healthcare Proxy: No Guardianship: No Medical Problems Affecting Mental Status: No Interim History: Reports some improvement in COVID sx. Experienced loose stools this evening-Imodium ordered OOB, showered, working on collages with one to one Now that I feel better physically, the safety issues and suicidality are returning. Medication Compliance: Yes Side effects from medications: Yes (loose stool from antibiotic ) Attending Groups: No Review of Systems Acute medical concerns: No Medical Review of Systems: unchanged Mental Status Exam Mental Status Exam Patient Appearance: Well Grooomed and Appropriate Patient Orientation: Person, Place, Time and Situation Level of Consciousness: Appropriate Patient Behavior: Appropriate, Cooperative, Fatigued and Good Eye Contact Mood Description: Withdrawn, Appropriate and Flat Affect Description: Withdrawn, Appropriate, Anxious (slightly) and Flat Patient Cognition Impaired: No Ability to Follow Directions: Excellent Speech Pattern: Clear, Appropriate and Coherent Memory Description: Intact Hallucinations: None Delusions: Not Present Thought Process: Intact Thought Content: positive for Intact and positive for Suicidal Ideation (Passive at this time, no intent or plan.) Depressive Symptoms: Unhappiness and Thoughts of /Suicide Judgement: Fair Diagnostics Vital Signs (24Hr): Vital Signs - 24 hr 04/05/22 06:00 Temperature 97.5 F Pulse Rate 73 Respiratory Rate 16 Blood Pressure 128/61 Pulse Oximetry 97 Oxygen Delivery Method Room Air BMI result Body Mass Index 40.3 Labs Results: 03/21/22 04:36 04/01/22 08:13 Medications Medications Current Medications Acetaminophen (Acetaminophen 325 Mg Tablet) 650 mg PO Q6H PRN PRN Reason: Headache/Pain Mild Scale (1-3) Last Admin: 04/03/22 16:34 Dose: 650 mg Al Hydroxide/Mg Hydroxide (Magnesium Hydrox/Alum Hydrox 30 Ml Oral.Susp) 30 ml PO Q6H PRN PRN Reason: Heartburn/Nausea Alprazolam (Alprazolam 0.5 Mg Tablet) 1 mg PO QID PRN PRN Reason: anxiety, panic Last Admin: 04/05/22 09:08 Dose: 1 mg Amphetamine/Dextroamphetamine (Dextroamphetamine/Amphetamine Xr 10 Mg C ap.Er.24h) 30 mg PO DAILY [facility] Last Admin: 04/05/22 08:35 Dose: 30 mg Azithromycin (Azithromycin 250 Mg Tablet) 250 mg PO Q24H [facility] Stop: 04/08/22 07:00 Last Admin: 04/05/22 14:04 Dose: 250 mg Benzocaine (Throat Lozenge, Medicated Lozenge) 1 lozenge MUCOUS MEM Q2H PRN PRN Reason: Sore Throat Last Admin: 04/03/22 10:20 Dose: 1 lozenge Bisacodyl (Bisacodyl 5 Mg Tablet.Dr) 10 mg PO DAILY PRN PRN Reason: Constipation Last Admin: 03/29/22 10:36 Dose: 10 mg Guaifenesin/Dextromethorphan (Guaifenesin Dm 600/30 1 Tab Tab.Er.12h) 1 tab PO BID PRN PRN Reason: cough, congestion Last Admin: 04/05/22 09:08 Dose: 1 tab Hydroxyzine HCl (Hydroxyzine Hcl 25 Mg Tablet) 25 mg PO Q6H PRN PRN Reason: Anxiety Last Admin: 03/28/22 17:05 Dose: 25 mg Ibuprofen (Ibuprofen 600 Mg Tablet) 600 mg PO Q8H PRN PRN Reason: covid sx relief Last Admin: 04/05/22 09:08 Dose: 600 mg [place] Carbonate ([place] Carbonate Er 300 Mg Tablet.Er) 600 mg PO BID [facility] Last Admin: 04/05/22 08:35 Dose: 600 mg Loperamide HCl (Loperamide Hcl 2 Mg Capsule) 4 mg PO Q4H PRN PRN Reason: Diarrhea Last Admin: 04/05/22 19:08 Dose: 4 mg Magnesium Hydroxide (Milk Of Magnesia 30 Ml Oral.Susp) 30 ml PO DAILY PRN PRN Reason: Constipation Last Admin: 03/25/22 11:00 Dose: 30 ml Melatonin (Melatonin 3 Mg Tablet) 12 mg PO BEDTIME [facility] Last Admin: 04/04/22 20:22 Dose: 12 mg Multi-Ingred Medicated Throat [place] (Throat [place], Medicated 177 Ml Bottle) 1 spray MUCOUS MEM Q2H PRN PRN Reason: Sore Throat Last Admin: 04/05/22 14:04 Dose: 1 spray Nicotine (Nicotine 14 Mg Patch.Td24) 14 mg TRANSDERMA DAILY [facility] Last Admin: 04/05/22 09:15 Dose: Not Given Nicotine Polacrilex (Nicotine Polacrilex 2 Mg Gum) 2 mg BUCCAL Q2H PRN PRN Reason: nicotine withdrawal Last Admin: 03/29/22 09:32 Dose: 2 mg Patient Own Medication ( Desvenlafaxine 100 Mg Er Tablet) 1 tab PO DAILY [facility] Last Admin: 04/05/22 09:08 Dose: 1 tab Olanzapine (Olanzapine 10 Mg Tablet) 10 mg PO BID PRN PRN Reason: impulsivity, SI, self-harm, ag Last Admin: 03/29/22 21:09 Dose: 10 mg Prazosin HCl 10 mg/ Prazosin (HCl 4 mg) 14 mg PO BEDTIME [facility] Last Admin: 04/04/22 20:23 Dose: 14 mg Thiamine HCl (Thiamine Hcl 100 Mg Tablet) 200 mg PO DAILY [facility] Last Admin: 04/05/22 08:36 Dose: 200 mg Trazodone HCl (Trazodone Hcl 100 Mg Tablet) 300 mg PO BEDTIME [facility] Last Admin: 04/04/22 20:23 Dose: 300 mg Vitamin D (Cholecalciferol (Vitamin D3) 25 Mcg Tablet) 50 mcg PO DAILY [facility] Last Admin: 04/05/22 08:36 Dose: 50 mcg Allergies Allergies Allergy/AdvReac Type Severity Reaction Status Date / Time Sulfa (Sulfonamide Allergy Unknown HIVES Verified 03/15/21 14:13 Antibiotics) [SULFA (SULFONAMIDE ANTIBIOTICS)] sulfamethoxazole Allergy Unknown HIVES Verified 03/15/21 14:13 [From BACTRIM] trimethoprim [From BACTRIM] Allergy Unknown HIVES Verified 03/15/21 14:13 oseltamivir [From Tamiflu] AdvReac Sensation Verified 09/29/21 11:20 of bugs crawling on skin. Assessment & Plan Assessment & Plan (1) PTSD (post-traumatic stress disorder): Status: Acute Code(s): F43.10 - Post-traumatic stress disorder, unspecified (2) MDD (major depressive disorder), recurrent severe, without psychosis: Status: Acute Code(s): F33.2 - Major depressive disorder, recurrent severe without psychotic features (3) Suicidal ideation: Status: Acute Code(s): R45.851 - Suicidal ideations Plan 36 yo non binary, prefers they/them pronouns with SI. 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 Several serious precipitants-holidays, anniversary of the loss of a child they planned to co-parent and therapist moved from the area at the end of Feb 2022 however pt will be continuing via [employer]. Plan: Message left for Nathen Mesa. Pt wanting to change Pristiq, possibly re-start Olanzapine. We would like his input if possible. Pristiq ordered from [employer] as it is not on formulary Collateral contact as needed Assist pt to re-establish safety. 03/24/22: Continue current plan. 03/25/22: Olanzapine prn 03/26/22: Lactulose for constipation Safety discussion with pt. Increase in anxiety after her ER experience. Working with team to manage her impulsivity. 03/27: Continue current regimen and plans with increase of trazodone to 300 mg 03/28: Continue current plans and regimen. 03/29: Continue current regimen and plans. A 3 day notice has been placed 03/30/22: On 03/31, Increase Adderall to 30 mg XR q a.m. 04/01/22: Increase Melatonin to 11 mg HS. 04/02/22: Continue current regime Mucinex DM prn 04/03/22: Azithromycin 500 mg today, 250 mg x 4 days thereafter 04/04/22: Continue current regime 04/05/22: IModium prn for diarrhea Monitor for increasing risk of self harm Informed Consent: understands and further education needed Reason for contiued inpatient stay Substantial Risk for: harm to self Time Spent With Patient Time: Total time managing care of this patient today _20___ minutes.
[2022-04-05] MEDS: PRAZOSIN HCL 14 MG PO (20:56)
[2022-04-05] MEDS: Melatonin 3 MG TABLET 12 MG PO (20:56)
[2022-04-05] MEDS: traZODone HCL 100 MG TABLET 300 MG PO (20:57)
[2022-04-06 09:47] VITALS: BP 135/82; PULSE 78; RESP 18; TEMP 36.9; O2SAT 98
[2022-04-06] MEDS: Throat Spray, Medicated 177 ML BOTTLE 1 SPRAY MUCOUS MEM (09:48)
[2022-04-06] MEDS: ALPRAZolam 0.5 MG TABLET 1 MG PO ×3 (09:48→21:07)
[2022-04-06] MEDS: Dextroamphetamine/Amphetamine XR 10 MG CAP.ER.24H 30 MG PO (09:49)
[2022-04-06] MEDS: Cholecalciferol (Vitamin D3) 25 MCG TABLET 50 MCG PO (09:50)
[2022-04-06] MEDS: Thiamine HCL 100 MG TABLET 200 MG PO (09:50)
[2022-04-06] MEDS: guaiFENesin DM 600/30 1 TAB TAB.ER.12H PO (09:50)
[2022-04-06] MEDS: Lithium Carbonate ER 300 MG TABLET.ER 600 MG PO ×2 (09:51→21:07)
--- NOTE | 2022-04-06 12:18 | P.PNPSI_ITS ---
Subjective Subjective Date of Service: 04/06/22 Reason For Visit: Depression SI PTSD Subjective Notes: Conditional Voluntary Healthcare Proxy: No Guardianship: No Medical Problems Affecting Mental Status: No Interim History: A difficult day-sadness, feeling unsafe-returned their shower kit to team with potentially injurious objects- crying, feeling tired from COVID and anergic at times. Identifies experiencing COVID Brain . One to one in place. Reports they did make contact with their therapist which was helpful however they realize how much they miss their therapist. Reports physical sx of COVID are resolving. Medication Compliance: Yes Side effects from medications: No Attending Groups: No Review of Systems Acute medical concerns: No Medical Review of Systems: unchanged Mental Status Exam Mental Status Exam Patient Appearance: Well Grooomed and Appropriate Patient Orientation: Person, Place, Time and Situation Level of Consciousness: Appropriate Patient Behavior: Appropriate, Cooperative, Fatigued and Good Eye Contact Mood Description: Withdrawn, Appropriate and Flat Affect Description: Withdrawn, Appropriate, Anxious (slightly) and Flat Patient Cognition Impaired: No Ability to Follow Directions: Excellent Speech Pattern: Clear, Appropriate and Coherent Memory Description: Intact Hallucinations: None Delusions: Not Present Thought Process: Intact Thought Content: positive for Intact and positive for Suicidal Ideation (Passive at this time, no intent or plan.) Depressive Symptoms: Unhappiness and Thoughts of /Suicide Judgement: Fair Diagnostics Vital Signs (24Hr): Vital Signs - 24 hr 04/05/22 18:00 04/06/22 09:47 Temperature 97.0 F 98.5 F Pulse Rate 72 78 Respiratory Rate 18 Blood Pressure 135/92 H 135/82 Pulse Oximetry 97 98 Oxygen Delivery Method Room Air Room Air BMI result Body Mass Index 40.3 Labs Results: 03/21/22 04:36 04/01/22 08:13 Medications Medications Current Medications Acetaminophen (Acetaminophen 325 Mg Tablet) 650 mg PO Q6H PRN PRN Reason: Headache/Pain Mild Scale (1-3) Last Admin: 04/03/22 16:34 Dose: 650 mg Al Hydroxide/Mg Hydroxide (Magnesium Hydrox/Alum Hydrox 30 Ml Oral.Susp) 30 ml PO Q6H PRN PRN Reason: Heartburn/Nausea Alprazolam (Alprazolam 0.5 Mg Tablet) 1 mg PO QID PRN PRN Reason: anxiety, panic Last Admin: 04/06/22 09:48 Dose: 1 mg Amphetamine/Dextroamphetamine (Dextroamphetamine/Amphetamine Xr 10 Mg Cap.Er.24h) 30 mg PO DAILY [facility] Last Admin: 04/06/22 09:49 Dose: 30 mg Azithromycin (Azithromycin 250 Mg Tablet) 250 mg PO Q24H [facility] Stop: 04/08/22 07:00 Last Admin: 04/05/22 14:04 Dose: 250 mg Benzocaine (Throat Lozenge, Medicated Lozenge) 1 lozenge MUCOUS MEM Q2H PRN PRN Reason: Sore Throat Last Admin: 04/03/22 10:20 Dose: 1 lozenge Bisacodyl (Bisacodyl 5 Mg Tablet.Dr) 10 mg PO DAILY PRN PRN Reason: Constipation Last Admin: 03/29/22 10:36 Dose: 10 mg Guaifenesin/Dextromethorphan (Guaifenesin Dm 600/30 1 Tab Tab.Er.12h) 1 tab PO BID PRN PRN Reason: cough, congestion Last Admin: 04/06/22 09:50 Dose: 1 tab Hydroxyzine HCl (Hydroxyzine Hcl 25 Mg Tablet) 25 mg PO Q6H PRN PRN Reason: Anxiety Last Admin: 03/28/22 17:05 Dose: 25 mg Ibuprofen (Ibuprofen 600 Mg Tablet) 600 mg PO Q8H PRN PRN Reason: covid sx relief Last Admin: 04/05/22 20:56 Dose: 600 mg [place] Carbonate ([place] Carbonate Er 300 Mg Tablet.Er) 600 mg PO BID [facility] Last Admin: 04/06/22 09:51 Dose: 600 mg Loperamide HCl (Loperamide Hcl 2 Mg Capsule) 4 mg PO Q4H PRN PRN Reason: Diarrhea Last Admin: 04/05/22 19:08 Dose: 4 mg Magnesium Hydroxide (Milk Of Magnesia 30 Ml Oral.Susp) 30 ml PO DAILY PRN PRN Reason: Constipation Last Admin: 03/25/22 11:00 Dose: 30 ml Melatonin (Melatonin 3 Mg Tablet) 12 mg PO BEDTIME [facility] Last Admin: 04/05/22 20:56 Dose: 12 mg Multi-Ingred Medicated Throat [place] (Throat [place], Medicated 177 Ml Bottle) 1 spray MUCOUS MEM Q2H PRN PRN Reason: Sore Throat Last Admin: 04/06/22 09:48 Dose: 1 spray Nicotine (Nicotine 14 Mg Patch.Td24) 14 mg TRANSDERMA DAILY [facility] Last Admin: 04/06/22 09:52 Dose: Not Given Nicotine Polacrilex (Nicotine Polacrilex 2 Mg Gum) 2 mg BUCCAL Q2H PRN PRN Reason: nicotine withdrawal Last Admin: 03/29/22 09:32 Dose: 2 mg Patient Own Medication ( Desvenlafaxine 100 Mg Er Tablet) 1 tab PO DAILY [facility] Last Admin: 04/06/22 09:52 Dose: 1 tab Olanzapine (Olanzapine 10 Mg Tablet) 10 mg PO BID PRN PRN Reason: impulsivity, SI, self-harm, ag Last Admin: 03/29/22 21:09 Dose: 10 mg Prazosin HCl 10 mg/ Prazosin (HCl 4 mg) 14 mg PO BEDTIME [facility] Last Admin: 04/05/22 20:56 Dose: 14 mg Thiamine HCl (Thiamine Hcl 100 Mg Tablet) 200 mg PO DAILY [facility] Last Admin: 04/06/22 09:50 Dose: 200 mg Trazodone HCl (Trazodone Hcl 100 Mg Tablet) 300 mg PO BEDTIME [facility] Last Admin: 04/05/22 20:57 Dose: 300 mg Vitamin D (Cholecalciferol (Vitamin D3) 25 Mcg Tablet) 50 mcg PO DAILY [facility] Last Admin: 04/06/22 09:50 Dose: 50 mcg Allergies Allergies Allergy/AdvReac Type Severity Reaction Status Date / Time Sulfa (Sulfonamide Allergy Unknown HIVES Verified 03/15/21 14:13 Antibiotics) [SULFA (SULFONAMIDE ANTIBIOTICS)] sulfamethoxazole Allergy Unknown HIVES Verified 03/15/21 14:13 [From BACTRIM] trimethoprim [From BACTRIM] Allergy Unknown HIVES Verified 03/15/21 14:13 oseltamivir [From Tamiflu] AdvReac Sensation Verified 09/29/21 11:20 of bugs crawling on skin. Assessment & Plan Assessment & Plan (1) PTSD (post-traumatic stress disorder): Status: Acute Code(s): F43.10 - Post-traumatic stress disorder, unspecified (2) MDD (major depressive disorder), recurrent severe, without psychosis: Status: Acute Code(s): F33.2 - Major depressive disorder, recurrent severe without psychotic features (3) Suicidal ideation: Status: Acute Code(s): R45.851 - Suicidal ideations Plan 36 yo non binary, prefers they/them pronouns with SI. 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 Several serious precipitants-holidays, anniversary of the loss of a child they planned to co-parent and therapist moved from the area at the end of Feb 2022 however pt will be continuing via telehelath. Plan: Message left for Nathen Mesa. Pt wanting to change Pristiq, possibly re-start Olanzapine. We would like his input if possible. Pristiq ordered from [employer] as it is not on formulary Collateral contact as needed Assist pt to re-establish safety. 03/24/22: Continue current plan. 03/25/22: Olanzapine prn 03/26/22: Lactulose for constipation Safety discussion with pt. Increase in anxiety after her ER experience. Working with team to manage her impulsivity. 03/27: Continue current regimen and plans with increase of trazodone to 300 mg 03/28: Continue current plans and regimen. 03/29: Continue current regimen and plans. A 3 day notice has been placed 03/30/22: On 03/31, Increase Adderall to 30 mg XR q a.m. 04/01/22: Increase Melatonin to 11 mg HS. 04/02/22: Continue current regime Mucinex DM prn 04/03/22: Azithromycin 500 mg today, 250 mg x 4 days thereafter 04/04/22: Continue current regime 04/05/22: IModium prn for diarrhea Monitor for increasing risk of self harm 04/06/22: Resolving physical sx of COVID Increasing emotional sx, feeling tired, worn, drained. Informed Consent: understands Reason for contiued inpatient stay Substantial Risk for: harm to self and rapid decompensation Time Spent With Patient Time: Total time managing care of this patient today _20___ minutes.
[2022-04-06] MEDS: Azithromycin 250 MG TABLET PO (16:13)
[2022-04-06] MEDS: Loperamide HCl 2 MG CAPSULE 4 MG PO (16:14)
[2022-04-06 21:05] VITALS: BP 137/73; PULSE 84; TEMP 36.8
[2022-04-06] MEDS: Melatonin 3 MG TABLET 12 MG PO (21:08)
[2022-04-06] MEDS: traZODone HCL 100 MG TABLET 300 MG PO (21:09)
[2022-04-06] MEDS: OLANZapine 10 MG TABLET PO (21:09)
[2022-04-06] MEDS: PRAZOSIN HCL 14 MG PO (21:10)
[2022-04-07 06:00] VITALS: BP 118/76; PULSE 79; RESP 18; TEMP 37; O2SAT 98
[2022-04-07] MEDS: Dextroamphetamine/Amphetamine XR 10 MG CAP.ER.24H 30 MG PO (08:51)
[2022-04-07] MEDS: Thiamine HCL 100 MG TABLET 200 MG PO (08:52)
[2022-04-07] MEDS: ALPRAZolam 0.5 MG TABLET 1 MG PO ×2 (08:52→21:44)
[2022-04-07] MEDS: Cholecalciferol (Vitamin D3) 25 MCG TABLET 50 MCG PO (08:52)
[2022-04-07] MEDS: Lithium Carbonate ER 300 MG TABLET.ER 600 MG PO ×2 (08:52→21:43)
[2022-04-07] MEDS: Azithromycin 250 MG TABLET PO (14:56)
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
[2022-04-07 21:40] VITALS: BP 136/90; PULSE 76; RESP 16; TEMP 36.7; O2SAT 100
[2022-04-07] MEDS: Melatonin 3 MG TABLET 12 MG PO (21:41)
[2022-04-07] MEDS: guaiFENesin DM 600/30 1 TAB TAB.ER.12H PO (21:41)
[2022-04-07] MEDS: traZODone HCL 100 MG TABLET 300 MG PO (21:43)
[2022-04-07] MEDS: PRAZOSIN HCL 14 MG PO (21:43)
[2022-04-08] MEDS: Thiamine HCL 100 MG TABLET 200 MG PO (08:17)
[2022-04-08] MEDS: Dextroamphetamine/Amphetamine XR 10 MG CAP.ER.24H 30 MG PO (08:17)
[2022-04-08] MEDS: Cholecalciferol (Vitamin D3) 25 MCG TABLET 50 MCG PO (08:18)
[2022-04-08] MEDS: Lithium Carbonate ER 300 MG TABLET.ER 600 MG PO ×2 (08:18→20:48)
[2022-04-08] MEDS: Throat Spray, Medicated 177 ML BOTTLE 1 SPRAY MUCOUS MEM (08:25)
[2022-04-08] MEDS: ALPRAZolam 0.5 MG TABLET 1 MG PO ×3 (08:43→20:55)
[2022-04-08 08:57] VITALS: BP 107/70; PULSE 98; RESP 18; TEMP 37.1; O2SAT 96
[2022-04-08 09:34] LABS: Lithium 1.05 mmol/L (0.60-1.20)
[2022-04-08 09:44] LABS: Anion Gap 13 (12-20); Blood Urea Nitrogen 9 mg/dL (9-16); Calcium 9.4 mg/dL (8.4-10.2); Carbon Dioxide 26 mmol/L (22-29); Chloride 109 mmol/L (96-108); Creatinine Clr Calc Pharmacy 119.4; Estimated Glomerular Filt Rate > 60; Glucose Random 89 mg/dL (60-115); Potassium 4.6 mmol/L (3.3-5.1); Sodium 143 mmol/L (135-145)
--- NOTE | 2022-04-08 14:30 | P.PNPSI_ITS ---
Subjective Subjective Date of Service: 04/08/22 Reason For Visit: Depression SI PTSD Subjective Notes: Conditional Voluntary Interim History: Pt reports ongoing suicidal ideation, no plan or intent- currently on a 1 to 1 due to self injurious behaviors while on the unit. Pt denies SOB, has been afebrile. no s/s of respiratory distress s/s to covid. Pt continues on isolation due to covid, may be able to come off room in 2 days. We discussed continuing current medications. Medication Compliance: Yes Side effects from medications: No Review of Systems Review of Systems Constitutional : No Weight loss, No Fever, No Chills, No Night Sweats, No Fatigue, No Malaise ENT/Mouth : No Hearing loss, No Ear Pain, No Nasal Congestion, No Sinus Pain, No Hoarseness, No sore throat, No Rhinorrhea, No Swallowing Difficulty Eyes: No Eye Pain, No Swelling, No Redness, No Foreign Body, No Discharge, No Vision Changes Cardiovascular : No Chest Pain, No SOB, No Dyspnea on Exertion, No Orthopnea, No Edema, No Palpitations Respiratory : No Cough, No Sputum, No Wheezing, No Smoke Exposure, No Dyspnea Gastrointestinal : No Nausea, No Vomiting, No Diarrhea, No Constipation, No abdominal Pain, No Hematochezia, No Melena Genitourinary : no irregular bleeding, No Dysuria, No Urinary Frequency, No Hematuria, No Urinary Incontinence, No Urgency, No Flank Pain, No Urinary Flow Changes, No Hesitancy Musculoskeletal : No joint pain, No Myalgias, No Joint Swelling Skin : No Skin Lesions, No rash Neuro : No Weakness, No Numbness, No Paresthesias, No Loss of Consciousness, No Dizziness, No Headache Psych : Complaining of severe anxiety and suicidal ideation, no homicidal ideation Heme/Lymph: No Bruising, No Bleeding,No Lymphadenopathy Endocrine : No Polyuria, No Polydipsia, No Temperature Intolerance Yes all other systems are reviewed and are negative Psychiatric: Reports anxiety, Reports depression, Reports difficulty concentrating, Reports hopelessness, Reports anhedonia and Reports suicidal ideation Mental Status Exam Mental Status Exam Narrative: NAD. Normally ambulation. Motor activity calm. Patient Appearance: Well Grooomed and Appropriate Patient Orientation: Person, Place, Time and Situation Level of Consciousness: Appropriate Patient Behavior: Appropriate, Cooperative, Fatigued and Good Eye Contact Mood Description: Withdrawn, Appropriate and Flat Affect Description: Withdrawn, Appropriate, Anxious (slightly) and Flat Patient Cognition Impaired: No Ability to Follow Directions: Excellent Speech Pattern: Clear, Appropriate and Coherent Memory Description: Intact Diagnostics Vital Signs (24Hr): Vital Signs - 24 hr 04/07/22 21:40 04/08/22 08:57 Temperature 98.1 F 98.8 F Pulse Rate 76 98 Respiratory Rate 16 18 Blood Pressure 136/90 H 107/70 Pulse Oximetry 100 96 Oxygen Delivery Method Room Air Room Air BMI result Body Mass Index 40.3 Labs Results: 03/21/22 04:36 04/08/22 08:38 Labs: Laboratory Results - last 48 hr 04/08/22 04/08/22 08:38 08:38 Sodium 143 Potassium 4.6 Chloride 109 H Carbon Dioxide 26 Anion Gap 13 BUN 9 Creatinine 0.84 Estim Creat Clear Calc 119.4 Estimated GFR > 60 Random Glucose 89 Calcium 9.4 D TSH 1.90 [place] 1.05 Medications Medications Current Medications Acetaminophen (Acetaminophen 325 Mg Tablet) 650 mg PO Q6H PRN PRN Reason: Headache/Pain Mild Scale (1-3) Last Admin: 04/03/22 16:34 Dose: 650 mg Al Hydroxide/Mg Hydroxide (Magnesium Hydrox/Alum Hydrox 30 Ml Oral.Susp) 30 ml PO Q6H PRN PRN Reason: Heartburn/Nausea Alprazolam (Alprazolam 0.5 Mg Tablet) 1 mg PO QID PRN PRN Reason: anxiety, panic Last Admin: 04/08/22 08:43 Dose: 1 mg Amphetamine/Dextroamphetamine (Dextroamphetamine/Amphetamine Xr 10 Mg Cap.Er.24h) 30 mg PO DAILY LACEY Last Admin: 04/08/22 08:17 Dose: 30 mg Benzocaine (Throat Lozenge, Medicated Lozenge) 1 lozenge MUCOUS MEM Q2H PRN PRN Reason: Sore Throat Last Admin: 04/03/22 10:20 Dose: 1 lozenge Bisacodyl (Bisacodyl 5 Mg Tablet.Dr) 10 mg PO DAILY PRN PRN Reason: Constipation Last Admin: 03/29/22 10:36 Dose: 10 mg Guaifenesin/Dextromethorphan (Guaifenesin Dm 600/30 1 Tab Tab.Er.12h) 1 tab PO BID PRN PRN Reason: cough, congestion Last Admin: 04/07/22 21:41 Dose: 1 tab Hydroxyzine HCl (Hydroxyzine Hcl 25 Mg Tablet) 25 mg PO Q6H PRN PRN Reason: Anxiety Last Admin: 03/28/22 17:05 Dose: 25 mg [place] Carbonate ([place] Carbonate Er 300 Mg Tablet.Er) 600 mg PO BID [facility] Last Admin: 04/08/22 08:18 Dose: 600 mg Loperamide HCl (Loperamide Hcl 2 Mg Capsule) 4 mg PO Q4H PRN PRN Reason: Diarrhea Last Admin: 04/06/22 16:14 Dose: 4 mg Magnesium Hydroxide (Milk Of Magnesia 30 Ml Oral.Susp) 30 ml PO DAILY PRN PRN Reason: Constipation Last Admin: 03/25/22 11:00 Dose: 30 ml Melatonin (Melatonin 3 Mg Tablet) 12 mg PO BEDTIME [facility] Last Admin: 04/07/22 21:41 Dose: 12 mg Multi-Ingred Medicated Throat [place] (Throat [place], Medicated 177 Ml Bottle) 1 spray MUCOUS MEM Q2H PRN PRN Reason: Sore Throat Last Admin: 04/08/22 08:25 Dose: 1 spray Nicotine (Nicotine 14 Mg Patch.Td24) 14 mg TRANSDERMA DAILY [facility] Last Admin: 04/08/22 09:09 Dose: Not Given Nicotine Polacrilex (Nicotine Polacrilex 2 Mg Gum) 2 mg BUCCAL Q2H PRN PRN Reason: nicotine withdrawal Last Admin: 03/29/22 09:32 Dose: 2 mg Patient Own Medication ( Desvenlafaxine 100 Mg Er Tablet) 1 tab PO DAILY [facility] Last Admin: 04/08/22 08:21 Dose: 1 tab Olanzapine (Olanzapine 10 Mg Tablet) 10 mg PO BID PRN PRN Reason: impulsivity, SI, self-harm, ag Last Admin: 04/06/22 21:09 Dose: 10 mg Olanzapine (Olanzapine 5 Mg Tablet) 5 mg PO BID PRN PRN Reason: impulsivity, self harm , si, Prazosin HCl 10 mg/ Prazosin (HCl 4 mg) 14 mg PO BEDTIME [facility] Last Admin: 04/07/22 21:43 Dose: 14 mg Thiamine HCl (Thiamine Hcl 100 Mg Tablet) 200 mg PO DAILY [facility] Last Admin: 04/08/22 08:17 Dose: 200 mg Trazodone HCl (Trazodone Hcl 100 Mg Tablet) 300 mg PO BEDTIME [facility] Last Admin: 04/07/22 21:43 Dose: 300 mg Vitamin D (Cholecalciferol (Vitamin D3) 25 Mcg Tablet) 50 mcg PO DAILY [facility] Last Admin: 04/08/22 08:18 Dose: 50 mcg Allergies Allergies Allergy/AdvReac Type Severity Reaction Status Date / Time Sulfa (Sulfonamide Allergy Unknown HIVES Verified 03/15/21 14:13 Antibiotics) [SULFA (SULFONAMIDE ANTIBIOTICS)] sulfamethoxazole Allergy Unknown HIVES Verified 03/15/21 14:13 [From BACTRIM] trimethoprim [From BACTRIM] Allergy Unknown HIVES Verified 03/15/21 14:13 oseltamivir [From Tamiflu] AdvReac Sensation Verified 09/29/21 11:20 of bugs crawling on skin. Assessment & Plan Assessment & Plan (1) PTSD (post-traumatic stress disorder): Status: Acute Code(s): F43.10 - Post-traumatic stress disorder, unspecified (2) MDD (major depressive disorder), recurrent severe, without psychosis: Status: Acute Code(s): F33.2 - Major depressive disorder, recurrent severe without psychotic features (3) Suicidal ideation: Status: Acute Code(s): R45.851 - Suicidal ideations Plan 36 yo non binary, prefers they/them pronouns with SI. 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 Several serious precipitants-holidays, anniversary of the loss of a child they planned to co-parent and therapist moved from the area at the end of Feb 2022 however pt will be continuing via [employer]. Plan: Message left for Nathen Mesa. Pt wanting to change Pristiq, possibly re-start Olanzapine. We would like his input if possible. Pristiq ordered from [employer] as it is not on formulary Collateral contact as needed Assist pt to re-establish safety. 03/24/22: Continue current plan. 03/25/22: Olanzapine prn 03/26/22: Lactulose for constipation Safety discussion with pt. Increase in anxiety after her ER experience. Working with team to manage her impulsivity. 03/27: Continue current regimen and plans with increase of trazodone to 300 mg 03/28: Continue current plans and regimen. 03/29: Continue current regimen and plans. A 3 day notice has been placed 03/30/22: On 03/31, Increase Adderall to 30 mg XR q a.m. 04/01/22: Increase Melatonin to 11 mg HS. 04/02/22: Continue current regime Mucinex DM prn 04/03/22: Azithromycin 500 mg today, 250 mg x 4 days thereafter 04/04/22: Continue current regime 04/05/22: IModium prn for diarrhea Monitor for increasing risk of self harm 04/06/22: Resolving physical sx of COVID Increasing emotional sx, feeling tired, worn, drained. 04/07/22: Discontinue Ibuprofen BMP, Li, TSH 04/08/22 Olanzapine 5 mg prn to alternate with 10 mg for SIBS, SI, impulsivity 04/08 continue tx. Reason for contiued inpatient stay Substantial Risk for: harm to self Time Spent With Patient Time: Total time managing care of this patient today ____ minutes.
[2022-04-08] MEDS: guaiFENesin DM 600/30 1 TAB TAB.ER.12H PO (16:41)
[2022-04-08 20:46] VITALS: BP 139/77; PULSE 79
[2022-04-08] MEDS: PRAZOSIN HCL 14 MG PO (20:47)
[2022-04-08] MEDS: traZODone HCL 100 MG TABLET 300 MG PO (20:48)
[2022-04-08] MEDS: Melatonin 3 MG TABLET 12 MG PO (20:48)
[2022-04-09 06:00] VITALS: BP 112/82; PULSE 89; RESP 14; TEMP 36.7; O2SAT 97
[2022-04-09] MEDS: Dextroamphetamine/Amphetamine XR 10 MG CAP.ER.24H 30 MG PO (08:49)
[2022-04-09] MEDS: Cholecalciferol (Vitamin D3) 25 MCG TABLET 50 MCG PO (08:50)
[2022-04-09] MEDS: Lithium Carbonate ER 300 MG TABLET.ER 600 MG PO ×2 (08:50→20:57)
[2022-04-09] MEDS: Thiamine HCL 100 MG TABLET 200 MG PO (08:50)
--- NOTE | 2022-04-09 10:30 | P.PNPSI_ITS ---
Subjective Subjective Date of Service: 04/09/22 Reason For Visit: Depression SI PTSD Subjective Notes: Conditional Voluntary Interim History: Pt seen with FRANCISCA Abreu. Pt continues to report ongoing suicidal ideation, no plan or intent- currently on a 1 to 1 due to self injurious behaviors while on the unit. Pt denies SOB, has been afebrile. no s/s of respiratory distress s/s to covid. Pt continues on isolation due to covid, may be able to come off room in 2 days. We discussed continuing current medications. Review of Systems Review of Systems Constitutional : No Weight loss, No Fever, No Chills, No Night Sweats, No Fatigue, No Malaise ENT/Mouth : No Hearing loss, No Ear Pain, No Nasal Congestion, No Sinus Pain, No Hoarseness, No sore throat, No Rhinorrhea, No Swallowing Difficulty Eyes: No Eye Pain, No Swelling, No Redness, No Foreign Body, No Discharge, No Vision Changes Cardiovascular : No Chest Pain, No SOB, No Dyspnea on Exertion, No Orthopnea, No Edema, No Palpitations Respiratory : No Cough, No Sputum, No Wheezing, No Smoke Exposure, No Dyspnea Gastrointestinal : No Nausea, No Vomiting, No Diarrhea, No Constipation, No abdominal Pain, No Hematochezia, No Melena Genitourinary : no irregular bleeding, No Dysuria, No Urinary Frequency, No Hematuria, No Urinary Incontinence, No Urgency, No Flank Pain, No Urinary Flow Changes, No Hesitancy Musculoskeletal : No joint pain, No Myalgias, No Joint Swelling Skin : No Skin Lesions, No rash Neuro : No Weakness, No Numbness, No Paresthesias, No Loss of Consciousness, No Dizziness, No Headache Psych : Complaining of severe anxiety and suicidal ideation, no homicidal ideation Heme/Lymph: No Bruising, No Bleeding,No Lymphadenopathy Endocrine : No Polyuria, No Polydipsia, No Temperature Intolerance Yes all other systems are reviewed and are negative Psychiatric: Reports anxiety, Reports depression, Reports difficulty concentrating, Reports hopelessness, Reports anhedonia and Reports suicidal ideation Mental Status Exam Mental Status Exam Narrative: NAD. Normally ambulation. Motor activity calm. Patient Appearance: Well Grooomed and Appropriate Patient Orientation: Person, Place, Time and Situation Level of Consciousness: Appropriate Patient Behavior: Appropriate, Cooperative, Fatigued and Good Eye Contact Mood Description: Withdrawn, Appropriate and Flat Affect Description: Withdrawn, Appropriate, Anxious (slightly) and Flat Patient Cognition Impaired: No Ability to Follow Directions: Excellent Speech Pattern: Clear, Appropriate and Coherent Memory Description: Intact Diagnostics Vital Signs (24Hr): Vital Signs - 24 hr 04/09/22 22:52 04/10/22 06:00 Temperature 97.4 F Pulse Rate 80 79 Respiratory Rate 16 Blood Pressure 120/80 128/67 Pulse Oximetry 97 Oxygen Delivery Method Room Air BMI result Body Mass Index 40.3 Labs 03/21/22 04:36 04/08/22 08:38 Medications Medications Current Medications Acetaminophen (Acetaminophen 325 Mg Tablet) 650 mg PO Q6H PRN PRN Reason: Headache/Pain Mild Scale (1-3) Last Admin: 04/03/22 16:34 Dose: 650 mg Al Hydroxide/Mg Hydroxide (Magnesium Hydrox/Alum Hydrox 30 Ml Oral.Susp) 30 ml PO Q6H PRN PRN Reason: Heartburn/Nausea Alprazolam (Alprazolam 0.5 Mg Tablet) 1 mg PO QID PRN PRN Reason: anxiety, panic Last Admin: 04/10/22 08:44 Dose: 1 mg Amphetamine/Dextroamphetamine (Dextroamphetamine/Amphetamine Xr 10 Mg Cap.Er.24h) 30 mg PO DAILY LACEY Last Admin: 04/10/22 08:29 Dose: 30 mg Benzocaine (Throat Lozenge, Medicated Lozenge) 1 lozenge MUCOUS MEM Q2H PRN PRN Reason: Sore Throat Last Admin: 04/03/22 10:20 Dose: 1 lozenge Bisacodyl (Bisacodyl 5 Mg Tablet.Dr) 10 mg PO DAILY PRN PRN Reason: Constipation Last Admin: 03/29/22 10:36 Dose: 10 mg Guaifenesin/Dextromethorphan (Guaifenesin Dm 600/30 1 Tab Tab.Er.12h) 1 tab PO BID PRN PRN Reason: cough, congestion Last Admin: 04/08/22 16:41 Dose: 1 tab Hydroxyzine HCl (Hydroxyzine Hcl 25 Mg Tablet) 25 mg PO Q6H PRN PRN Reason: Anxiety Last Admin: 03/28/22 17:05 Dose: 25 mg [place] Carbonate ([place] Carbonate Er 300 Mg Tablet.Er) 600 mg PO BID [facility] Last Admin: 04/10/22 08:29 Dose: 600 mg Loperamide HCl (Loperamide Hcl 2 Mg Capsule) 4 mg PO Q4H PRN PRN Reason: Diarrhea Last Admin: 04/06/22 16:14 Dose: 4 mg Magnesium Hydroxide (Milk Of Magnesia 30 Ml Oral.Susp) 30 ml PO DAILY PRN PRN Reason: Constipation Last Admin: 03/25/22 11:00 Dose: 30 ml Melatonin (Melatonin 3 Mg Tablet) 12 mg PO BEDTIME [facility] Last Admin: 04/09/22 20:57 Dose: 12 mg Multi-Ingred Medicated Throat [place] (Throat [place], Medicated 177 Ml Bottle) 1 spray MUCOUS MEM Q2H PRN PRN Reason: Sore Throat Last Admin: 04/08/22 08:25 Dose: 1 spray Nicotine (Nicotine 14 Mg Patch.Td24) 14 mg TRANSDERMA DAILY [facility] Last Admin: 04/09/22 08:52 Dose: Not Given Nicotine Polacrilex (Nicotine Polacrilex 2 Mg Gum) 2 mg BUCCAL Q2H PRN PRN Reason: nicotine withdrawal Last Admin: 03/29/22 09:32 Dose: 2 mg Patient Own Medication ( Desvenlafaxine 100 Mg Er Tablet) 1 tab PO DAILY [facility] Last Admin: 04/10/22 08:28 Dose: 1 tab Olanzapine (Olanzapine 10 Mg Tablet) 10 mg PO BID PRN PRN Reason: impulsivity, SI, self-harm, ag Last Admin: 04/09/22 12:40 Dose: 10 mg Olanzapine (Olanzapine 5 Mg Tablet) 5 mg PO BID PRN PRN Reason: impulsivity, self harm , si, Prazosin HCl 10 mg/ Prazosin (HCl 4 mg) 14 mg PO BEDTIME [facility] Last Admin: 04/09/22 20:56 Dose: 14 mg Thiamine HCl (Thiamine Hcl 100 Mg Tablet) 200 mg PO DAILY [facility] Last Admin: 04/10/22 08:29 Dose: 200 mg Trazodone HCl (Trazodone Hcl 100 Mg Tablet) 300 mg PO BEDTIME [facility] Last Admin: 04/09/22 20:56 Dose: 300 mg Vitamin D (Cholecalciferol (Vitamin D3) 25 Mcg Tablet) 50 mcg PO DAILY [facility] Last Admin: 04/10/22 08:29 Dose: 50 mcg Allergies Allergies Allergy/AdvReac Type Severity Reaction Status Date / Time Sulfa (Sulfonamide Allergy Unknown HIVES Verified 03/15/21 14:13 Antibiotics) [SULFA (SULFONAMIDE ANTIBIOTICS)] sulfamethoxazole Allergy Unknown HIVES Verified 03/15/21 14:13 [From BACTRIM] trimethoprim [From BACTRIM] Allergy Unknown HIVES Verified 03/15/21 14:13 oseltamivir [From Tamiflu] AdvReac Sensation Verified 09/29/21 11:20 of bugs crawling on skin. Assessment & Plan Assessment & Plan (1) PTSD (post-traumatic stress disorder): Status: Acute Code(s): F43.10 - Post-traumatic stress disorder, unspecified (2) MDD (major depressive disorder), recurrent severe, without psychosis: Status: Acute Code(s): F33.2 - Major depressive disorder, recurrent severe without psychotic features (3) Suicidal ideation: Status: Acute Code(s): R45.851 - Suicidal ideations Plan 36 yo non binary, prefers they/them pronouns with SI. 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 Several serious precipitants-holidays, anniversary of the loss of a child they planned to co-parent and therapist moved from the area at the end of Feb 2022 however pt will be continuing via [employer]. Plan: Message left for Nathen Mesa. Pt wanting to change Pristiq, possibly re-start Olanzapine. We would like his input if possible. Pristiq ordered from [employer] as it is not on formulary Collateral contact as needed Assist pt to re-establish safety. 03/24/22: Continue current plan. 03/25/22: Olanzapine prn 03/26/22: Lactulose for constipation Safety discussion with pt. Increase in anxiety after her ER experience. Working with team to manage her impulsivity. 03/27: Continue current regimen and plans with increase of trazodone to 300 mg 03/28: Continue current plans and regimen. 03/29: Continue current regimen and plans. A 3 day notice has been placed 03/30/22: On 03/31, Increase Adderall to 30 mg XR q a.m. 04/01/22: Increase Melatonin to 11 mg HS. 04/02/22: Continue current regime Mucinex DM prn 04/03/22: Azithromycin 500 mg today, 250 mg x 4 days thereafter 04/04/22: Continue current regime 04/05/22: IModium prn for diarrhea Monitor for increasing risk of self harm 04/06/22: Resolving physical sx of COVID Increasing emotional sx, feeling tired, worn, drained. 04/07/22: Discontinue Ibuprofen BMP, Li, TSH 04/08/22 Olanzapine 5 mg prn to alternate with 10 mg for SIBS, SI, impulsivity 04/08 continue tx. 04/09 continue tx. Reason for contiued inpatient stay Substantial Risk for: harm to self Time Spent With Patient Time: Total time managing care of this patient today ____ minutes.
[2022-04-09] MEDS: ALPRAZolam 0.5 MG TABLET 1 MG PO ×2 (12:40→20:56)
[2022-04-09] MEDS: OLANZapine 10 MG TABLET PO (12:40)
[2022-04-09] MEDS: PRAZOSIN HCL 14 MG PO (20:56)
[2022-04-09] MEDS: traZODone HCL 100 MG TABLET 300 MG PO (20:56)
[2022-04-09] MEDS: Melatonin 3 MG TABLET 12 MG PO (20:57)
[2022-04-09 22:52] VITALS: BP 120/80; PULSE 80
[2022-04-10 06:00] VITALS: BP 128/67; PULSE 79; RESP 16; TEMP 36.3; O2SAT 97
[2022-04-10] MEDS: Thiamine HCL 100 MG TABLET 200 MG PO (08:29)
[2022-04-10] MEDS: Lithium Carbonate ER 300 MG TABLET.ER 600 MG PO ×2 (08:29→20:56)
[2022-04-10] MEDS: Cholecalciferol (Vitamin D3) 25 MCG TABLET 50 MCG PO (08:29)
[2022-04-10] MEDS: Dextroamphetamine/Amphetamine XR 10 MG CAP.ER.24H 30 MG PO (08:29)
[2022-04-10] MEDS: ALPRAZolam 0.5 MG TABLET 1 MG PO ×3 (08:44→20:56)
--- NOTE | 2022-04-10 10:34 | P.PNPSI_ITS ---
Subjective Subjective Date of Service: 04/10/22 Reason For Visit: Depression SI PTSD Interim History: Patient polite with senior writer and says she does not need anything at this time, no complaints.? Overall in behavioral control with continued one-to-one ? Mental Status Exam Mental Status Exam Narrative: NAD. Normally ambulation. Motor activity calm. Patient Appearance: Well Grooomed and Appropriate Patient Orientation: Person, Place, Time and Situation Level of Consciousness: Appropriate Patient Behavior: Appropriate, Cooperative, Fatigued and Good Eye Contact Mood Description: Withdrawn, Appropriate and Flat Affect Description: Withdrawn, Appropriate, Anxious (slightly) and Flat Patient Cognition Impaired: No Ability to Follow Directions: Excellent Speech Pattern: Clear, Appropriate and Coherent Memory Description: Intact Diagnostics Vital Signs (24Hr): Vital Signs - 24 hr 04/09/22 22:52 04/10/22 06:00 Temperature 97.4 F Pulse Rate 80 79 Respiratory Rate 16 Blood Pressure 120/80 128/67 Pulse Oximetry 97 Oxygen Delivery Method Room Air BMI result Body Mass Index 40.3 Labs 03/21/22 04:36 04/08/22 08:38 Medications Medications Current Medications Acetaminophen (Acetaminophen 325 Mg Tablet) 650 mg PO Q6H PRN PRN Reason: Headache/Pain Mild Scale (1-3) Last Admin: 04/03/22 16:34 Dose: 650 mg Al Hydroxide/Mg Hydroxide (Magnesium Hydrox/Alum Hydrox 30 Ml Oral.Susp) 30 ml PO Q6H PRN PRN Reason: Heartburn/Nausea Alprazolam (Alprazolam 0.5 Mg Tablet) 1 mg PO QID PRN PRN Reason: anxiety, panic Last Admin: 04/10/22 08:44 Dose: 1 mg Amphetamine/Dextroamphetamine (Dextroamphetamine/Amphetamine Xr 10 Mg Cap.Er.24h) 30 mg PO DAILY [facility] Last Admin: 04/10/22 08:29 Dose: 30 mg Benzocaine (Throat Lozenge, Medicated Lozenge) 1 lozenge MUCOUS MEM Q2H PRN PRN Reason: Sore Throat Last Admin: 04/03/22 10:20 Dose: 1 lozenge Bisacodyl (Bisacodyl 5 Mg Tablet.Dr) 10 mg PO DAILY PRN PRN Reason: Constipation Last Admin: 03/29/22 10:36 Dose: 10 mg Guaifenesin/Dextromethorphan (Guaifenesin Dm 600/30 1 Tab Tab.Er.12h) 1 tab PO BID PRN PRN Reason: cough, congestion Last Admin: 04/08/22 16:41 Dose: 1 tab Hydroxyzine HCl (Hydroxyzine Hcl 25 Mg Tablet) 25 mg PO Q6H PRN PRN Reason: Anxiety Last Admin: 03/28/22 17:05 Dose: 25 mg [place] Carbonate ([place] Carbonate Er 300 Mg Tablet.Er) 600 mg PO BID [facility] Last Admin: 04/10/22 08:29 Dose: 600 mg Loperamide HCl (Loperamide Hcl 2 Mg Capsule) 4 mg PO Q4H PRN PRN Reason: Diarrhea Last Admin: 04/06/22 16:14 Dose: 4 mg Magnesium Hydroxide (Milk Of Magnesia 30 Ml Oral.Susp) 30 ml PO DAILY PRN PRN Reason: Constipation Last Admin: 03/25/22 11:00 Dose: 30 ml Melatonin (Melatonin 3 Mg Tablet) 12 mg PO BEDTIME [facility] Last Admin: 04/09/22 20:57 Dose: 12 mg Multi-Ingred Medicated Throat [place] (Throat [place], Medicated 177 Ml Bottle) 1 spray MUCOUS MEM Q2H PRN PRN Reason: Sore Throat Last Admin: 04/08/22 08:25 Dose: 1 spray Nicotine (Nicotine 14 Mg Patch.Td24) 14 mg TRANSDERMA DAILY [facility] Last Admin: 04/09/22 08:52 Dose: Not Given Nicotine Polacrilex (Nicotine Polacrilex 2 Mg Gum) 2 mg BUCCAL Q2H PRN PRN Reason: nicotine withdrawal Last Admin: 03/29/22 09:32 Dose: 2 mg Patient Own Medication ( Desvenlafaxine 100 Mg Er Tablet) 1 tab PO DAILY [facility] Last Admin: 04/10/22 08:28 Dose: 1 tab Olanzapine (Olanzapine 10 Mg Tablet) 10 mg PO BID PRN PRN Reason: impulsivity, SI, self-harm, ag Last Admin: 04/09/22 12:40 Dose: 10 mg Olanzapine (Olanzapine 5 Mg Tablet) 5 mg PO BID PRN PRN Reason: impulsivity, self harm , si, Prazosin HCl 10 mg/ Prazosin (HCl 4 mg) 14 mg PO BEDTIME [facility] Last Admin: 04/09/22 20:56 Dose: 14 mg Thiamine HCl (Thiamine Hcl 100 Mg Tablet) 200 mg PO DAILY [facility] Last Admin: 04/10/22 08:29 Dose: 200 mg Trazodone HCl (Trazodone Hcl 100 Mg Tablet) 300 mg PO BEDTIME [facility] Last Admin: 04/09/22 20:56 Dose: 300 mg Vitamin D (Cholecalciferol (Vitamin D3) 25 Mcg Tablet) 50 mcg PO DAILY [facility] Last Admin: 04/10/22 08:29 Dose: 50 mcg Allergies Allergies Allergy/AdvReac Type Severity Reaction Status Date / Time Sulfa (Sulfonamide Allergy Unknown HIVES Verified 03/15/21 14:13 Antibiotics) [SULFA (SULFONAMIDE ANTIBIOTICS)] sulfamethoxazole Allergy Unknown HIVES Verified 03/15/21 14:13 [From BACTRIM] trimethoprim [From BACTRIM] Allergy Unknown HIVES Verified 03/15/21 14:13 oseltamivir [From Tamiflu] AdvReac Sensation Verified 09/29/21 11:20 of bugs crawling on skin. Assessment & Plan Assessment & Plan (1) PTSD (post-traumatic stress disorder): Status: Acute Code(s): F43.10 - Post-traumatic stress disorder, unspecified (2) MDD (major depressive disorder), recurrent severe, without psychosis: Status: Acute Code(s): F33.2 - Major depressive disorder, recurrent severe without psychotic features (3) Suicidal ideation: Status: Acute Code(s): R45.851 - Suicidal ideations Plan 36 yo non binary, prefers they/them pronouns with SI. 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 Several serious precipitants-holidays, anniversary of the loss of a child they planned to co-parent and therapist moved from the area at the end of Feb 2022 however pt will be continuing via telehelath. Plan: Message left for Nathen Mesa. Pt wanting to change Pristiq, possibly re-start Olanzapine. We would like his input if possible. Pristiq ordered from [employer] as it is not on formulary Collateral contact as needed Assist pt to re-establish safety. 03/24/22: Continue current plan. 03/25/22: Olanzapine prn 03/26/22: Lactulose for constipation Safety discussion with pt. Increase in anxiety after her ER experience. Working with team to manage her impulsivity. 03/27: Continue current regimen and plans with increase of trazodone to 300 mg 03/28: Continue current plans and regimen. 03/29: Continue current regimen and plans. A 3 day notice has been placed 03/30/22: On 03/31, Increase Adderall to 30 mg XR q a.m. 04/01/22: Increase Melatonin to 11 mg HS. 04/02/22: Continue current regime Mucinex DM prn 04/03/22: Azithromycin 500 mg today, 250 mg x 4 days thereafter 04/04/22: Continue current regime 04/05/22: IModium prn for diarrhea Monitor for increasing risk of self harm 04/06/22: Resolving physical sx of COVID Increasing emotional sx, feeling tired, worn, drained. 04/07/22: Discontinue Ibuprofen BMP, Li, TSH 04/08/22 Olanzapine 5 mg prn to alternate with 10 mg for SIBS, SI, impulsivity 04/08 continue tx. 04/09 continue tx. 04/10 continue tx. Reason for contiued inpatient stay Substantial Risk for: rapid decompensation Time Spent With Patient Time: Total time managing care of this patient today ____ minutes.
[2022-04-10] MEDS: Melatonin 3 MG TABLET 12 MG PO (20:56)
[2022-04-10] MEDS: traZODone HCL 100 MG TABLET 300 MG PO (20:56)
[2022-04-10] MEDS: PRAZOSIN HCL 14 MG PO (20:56)
[2022-04-10 21:00] VITALS: BP 137/65; PULSE 75
[2022-04-11 06:00] VITALS: BP 116/64; PULSE 90; RESP 14; TEMP 36.6; O2SAT 96
[2022-04-11] MEDS: Cholecalciferol (Vitamin D3) 25 MCG TABLET 50 MCG PO (08:33)
[2022-04-11] MEDS: Thiamine HCL 100 MG TABLET 200 MG PO (08:33)
[2022-04-11] MEDS: ALPRAZolam 0.5 MG TABLET 1 MG PO ×2 (08:34→16:33)
[2022-04-11] MEDS: Dextroamphetamine/Amphetamine XR 10 MG CAP.ER.24H 30 MG PO (08:34)
[2022-04-11] MEDS: Lithium Carbonate ER 300 MG TABLET.ER 600 MG PO ×2 (08:34→20:25)
[2022-04-11] MEDS: guaiFENesin DM 600/30 1 TAB TAB.ER.12H PO (10:39)
--- NOTE | 2022-04-11 11:03 | P.PNPSI_ITS ---
Subjective Subjective Date of Service: 04/11/22 Reason For Visit: Depression SI PTSD Interim History: Patient says she is feeling a little better than when she came in however she continues to have persistent thoughts to self-harm. She says she does not want to with the thoughts have not let up. Patient feels that mostly just takes the time it takes and it is not much of a medication issue. Did discuss that lithium levels will be drawn tomorrow. Patient reports that she will be doing overall well enough for about 6 months and then something will happen, so get triggered and she ends up in the hospital. She would like to end this pattern or at least elongated but is not sure how to. Patient shared the coping strategies she employees and though they sometimes work they have not prevented hospital admission Patient shared that she has been feeling some fullness in her sinus areas since COVID. She did have a trial of antibiotics and agrees to wait a few more days to see if it improves Mental Status Exam Mental Status Exam Narrative: NAD. Normally ambulation. Motor activity calm. Patient Appearance: Well Grooomed and Appropriate Patient Orientation: Person, Place, Time and Situation Level of Consciousness: Appropriate Patient Behavior: Appropriate, Cooperative and Good Eye Contact Mood Description: Anxious Affect Description: Appropriate, Constricted and Anxious (slightly) Patient Cognition Impaired: No Ability to Follow Directions: Excellent Speech Pattern: Clear, Appropriate and Coherent Memory Description: Intact Hallucinations: None Delusions: Not Present Thought Process: Intact Thought Content: positive for Goal Oriented, positive for Linear, positive for Suicidal Ideation (some intermittent SI but more so urges/thoughts to self harm) and positive for Homicidal Ideation (None) Judgement and Insight: impaired Diagnostics Vital Signs (24Hr): Vital Signs - 24 hr 04/10/22 21:00 04/11/22 06:00 Temperature 97.8 F Pulse Rate 75 90 Respiratory Rate 14 Blood Pressure 137/65 116/64 Pulse Oximetry 96 Oxygen Delivery Method Room Air BMI result Body Mass Index 40.3 Labs 03/21/22 04:36 04/08/22 08:38 Medications Medications Current Medications Acetaminophen (Acetaminophen 325 Mg Tablet) 650 mg PO Q6H PRN PRN Reason: Headache/Pain Mild Scale (1-3) Last Admin: 04/03/22 16:34 Dose: 650 mg Al Hydroxide/Mg Hydroxide (Magnesium Hydrox/Alum Hydrox 30 Ml Oral.Susp) 30 ml PO Q6H PRN PRN Reason: Heartburn/Nausea Alprazolam (Alprazolam 0.5 Mg Tablet) 1 mg PO QID PRN PRN Reason: anxiety, panic Last Admin: 04/11/22 08:34 Dose: 1 mg Amphetamine/Dextroamphetamine (Dextroamphetamine/Amphetamine Xr 10 Mg Cap.Er.24h) 30 mg PO DAILY [facility] Last Admin: 04/11/22 08:34 Dose: 30 mg Benzocaine (Throat Lozenge, Medicated Lozenge) 1 lozenge MUCOUS MEM Q2H PRN PRN Reason: Sore Throat Last Admin: 04/03/22 10:20 Dose: 1 lozenge Bisacodyl (Bisacodyl 5 Mg Tablet.Dr) 10 mg PO DAILY PRN PRN Reason: Constipation Last Admin: 03/29/22 10:36 Dose: 10 mg Guaifenesin/Dextromethorphan (Guaifenesin Dm 600/30 1 Tab Tab.Er.12h) 1 tab PO BID PRN PRN Reason: cough, congestion Last Admin: 04/11/22 10:39 Dose: 1 tab Hydroxyzine HCl (Hydroxyzine Hcl 25 Mg Tablet) 25 mg PO Q6H PRN PRN Reason: Anxiety Last Admin: 03/28/22 17:05 Dose: 25 mg [place] Carbonate ([place] Carbonate Er 300 Mg Tablet.Er) 600 mg PO BID [facility] Last Admin: 04/11/22 08:34 Dose: 600 mg Loperamide HCl (Loperamide Hcl 2 Mg Capsule) 4 mg PO Q4H PRN PRN Reason: Diarrhea Last Admin: 04/06/22 16:14 Dose: 4 mg Magnesium Hydroxide (Milk Of Magnesia 30 Ml Oral.Susp) 30 ml PO DAILY PRN PRN Reason: Constipation Last Admin: 03/25/22 11:00 Dose: 30 ml Melatonin (Melatonin 3 Mg Tablet) 12 mg PO BEDTIME [facility] Last Admin: 04/10/22 20:56 Dose: 12 mg Multi-Ingred Medicated Throat [place] (Throat [place], Medicated 177 Ml Bottle) 1 spray MUCOUS MEM Q2H PRN PRN Reason: Sore Throat Last Admin: 04/08/22 08:25 Dose: 1 spray Nicotine (Nicotine 14 Mg Patch.Td24) 14 mg TRANSDERMA DAILY PRN PRN Reason: nicotine craving Nicotine Polacrilex (Nicotine Polacrilex 2 Mg Gum) 2 mg BUCCAL Q2H PRN PRN Reason: nicotine withdrawal Last Admin: 03/29/22 09:32 Dose: 2 mg Patient Own Medication ( Desvenlafaxine 100 Mg Er Tablet) 1 tab PO DAILY [facility] Last Admin: 04/11/22 09:09 Dose: 1 tab Olanzapine (Olanzapine 10 Mg Tablet) 10 mg PO BID PRN PRN Reason: impulsivity, SI, self-harm, ag Last Admin: 04/09/22 12:40 Dose: 10 mg Olanzapine (Olanzapine 5 Mg Tablet) 5 mg PO BID PRN PRN Reason: impulsivity, self harm , si, Prazosin HCl 10 mg/ Prazosin (HCl 4 mg) 14 mg PO BEDTIME [facility] Last Admin: 04/10/22 20:56 Dose: 14 mg Thiamine HCl (Thiamine Hcl 100 Mg Tablet) 200 mg PO DAILY [facility] Last Admin: 04/11/22 08:33 Dose: 200 mg Trazodone HCl (Trazodone Hcl 100 Mg Tablet) 300 mg PO BEDTIME [facility] Last Admin: 04/10/22 20:56 Dose: 300 mg Vitamin D (Cholecalciferol (Vitamin D3) 25 Mcg Tablet) 50 mcg PO DAILY [facility] Last Admin: 04/11/22 08:33 Dose: 50 mcg Allergies Allergies Allergy/AdvReac Type Severity Reaction Status Date / Time Sulfa (Sulfonamide Allergy Unknown HIVES Verified 03/15/21 14:13 Antibiotics) [SULFA (SULFONAMIDE ANTIBIOTICS)] sulfamethoxazole Allergy Unknown HIVES Verified 03/15/21 14:13 [From BACTRIM] trimethoprim [From BACTRIM] Allergy Unknown HIVES Verified 03/15/21 14:13 oseltamivir [From Tamiflu] AdvReac Sensation Verified 09/29/21 11:20 of bugs crawling on skin. Assessment & Plan Assessment & Plan (1) PTSD (post-traumatic stress disorder): Status: Acute Code(s): F43.10 - Post-traumatic stress disorder, unspecified (2) MDD (major depressive disorder), recurrent severe, without psychosis: Status: Acute Code(s): F33.2 - Major depressive disorder, recurrent severe without psychotic features (3) Suicidal ideation: Status: Acute Code(s): R45.851 - Suicidal ideations Plan 36 yo non binary, prefers they/them pronouns with SI. 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 Several serious precipitants-holidays, anniversary of the loss of a child they planned to co-parent and therapist moved from the area at the end of Feb 2022 however pt will be continuing via telehelath. Plan: Message left for Nathen Mesa. Pt wanting to change Pristiq, possibly re-start Olanzapine. We would like his input if possible. Pristiq ordered from [employer] as it is not on formulary Collateral contact as needed Assist pt to re-establish safety. 03/24/22: Continue current plan. 03/25/22: Olanzapine prn 03/26/22: Lactulose for constipation Safety discussion with pt. Increase in anxiety after her ER experience. Working with team to manage her impulsivity. 03/27: Continue current regimen and plans with increase of trazodone to 300 mg 03/28: Continue current plans and regimen. 03/29: Continue current regimen and plans. A 3 day notice has been placed 03/30/22: On 03/31, Increase Adderall to 30 mg XR q a.m. 04/01/22: Increase Melatonin to 11 mg HS. 04/02/22: Continue current regime Mucinex DM prn 04/03/22: Azithromycin 500 mg today, 250 mg x 4 days thereafter 04/04/22: Continue current regime 04/05/22: IModium prn for diarrhea Monitor for increasing risk of self harm 04/06/22: Resolving physical sx of COVID Increasing emotional sx, feeling tired, worn, drained. 04/07/22: Discontinue Ibuprofen BMP, Li, TSH 04/08/22 Olanzapine 5 mg prn to alternate with 10 mg for SIBS, SI, impulsivity 04/08 continue tx. 04/09 continue tx. 04/10 continue tx. 04/11 continue tx. -monitor for sinus discomfort -check lithium level tomorrow morning -remain on one-to-one Patient educated on: diagnosis, medication risk/benefits and therapeutic strategies Informed Consent: understands Reason for contiued inpatient stay Substantial Risk for: rapid decompensation Time Spent With Patient Time: Total time managing care of this patient today ____ minutes.
[2022-04-11 18:00] VITALS: BP 128/79; PULSE 102; RESP 16; TEMP 36.4; O2SAT 98
[2022-04-11] MEDS: traZODone HCL 100 MG TABLET 300 MG PO (20:23)
[2022-04-11] MEDS: Melatonin 3 MG TABLET 12 MG PO (20:23)
[2022-04-11] MEDS: PRAZOSIN HCL 14 MG PO (20:24)
[2022-04-11] MEDS: OLANZapine 10 MG TABLET PO (20:24)
[2022-04-12 06:00] VITALS: BP 120/61; PULSE 94; RESP 16; TEMP 36.4; O2SAT 97
[2022-04-12] MEDS: ALPRAZolam 0.5 MG TABLET 1 MG PO ×3 (08:10→21:27)
[2022-04-12] MEDS: Dextroamphetamine/Amphetamine XR 10 MG CAP.ER.24H 30 MG PO (08:11)
[2022-04-12] MEDS: Lithium Carbonate ER 300 MG TABLET.ER 600 MG PO ×2 (08:11→21:33)
[2022-04-12] MEDS: Cholecalciferol (Vitamin D3) 25 MCG TABLET 50 MCG PO (08:11)
[2022-04-12] MEDS: Thiamine HCL 100 MG TABLET 200 MG PO (08:11)
[2022-04-12] MEDS: OLANZapine 5 MG TABLET PO (11:16)
--- NOTE | 2022-04-12 14:09 | P.PNPSI_ITS ---
Subjective Subjective Date of Service: 04/12/22 Reason For Visit: Depression SI PTSD Subjective Notes: Conditional Voluntary Interim History: Met with Pt and FRANCISCA Abreu. Pt reports Tuesday was a fairly good day. Tuesday morning went well, but afternoon was very difficult- pt says for unclear reasons, and they have had active thoughts of self harm since then. Pt sleeping and eating well. Visible in common areas, now that they are out of isolation. Social with select peers, arts and crafts seems to be source of comfort. Medication Compliance: Yes Side effects from medications: No Attending Groups: Intermittent Review of Systems Review of Systems Constitutional : No Weight loss, No Fever, No Chills, No Night Sweats, No Fatigue, No Malaise ENT/Mouth : No Hearing loss, No Ear Pain, No Nasal Congestion, No Sinus Pain, No Hoarseness, No sore throat, No Rhinorrhea, No Swallowing Difficulty Eyes: No Eye Pain, No Swelling, No Redness, No Foreign Body, No Discharge, No Vision Changes Cardiovascular : No Chest Pain, No SOB, No Dyspnea on Exertion, No Orthopnea, No Edema, No Palpitations Respiratory : No Cough, No Sputum, No Wheezing, No Smoke Exposure, No Dyspnea Gastrointestinal : No Nausea, No Vomiting, No Diarrhea, No Constipation, No abdominal Pain, No Hematochezia, No Melena Genitourinary : no irregular bleeding, No Dysuria, No Urinary Frequency, No Hematuria, No Urinary Incontinence, No Urgency, No Flank Pain, No Urinary Flow Changes, No Hesitancy Musculoskeletal : No joint pain, No Myalgias, No Joint Swelling Skin : No Skin Lesions, No rash Neuro : No Weakness, No Numbness, No Paresthesias, No Loss of Consciousness, No Dizziness, No Headache Psych : Complaining of severe anxiety and suicidal ideation, no homicidal ideation Heme/Lymph: No Bruising, No Bleeding,No Lymphadenopathy Endocrine : No Polyuria, No Polydipsia, No Temperature Intolerance Yes all other systems are reviewed and are negative Psychiatric: Reports anxiety, Reports depression, Reports difficulty concentrating, Reports hopelessness, Reports anhedonia and Reports suicidal ideation Mental Status Exam Mental Status Exam Narrative: NAD. Normally ambulation. Motor activity calm. Patient Appearance: Well Grooomed and Appropriate Patient Orientation: Person, Place, Time and Situation Level of Consciousness: Appropriate Patient Behavior: Appropriate, Cooperative and Good Eye Contact Mood Description: Anxious Affect Description: Appropriate, Constricted and Anxious (slightly) Patient Cognition Impaired: No Ability to Follow Directions: Excellent Speech Pattern: Clear, Appropriate and Coherent Memory Description: Intact Diagnostics Vital Signs (24Hr): Vital Signs - 24 hr 04/12/22 16:56 04/12/22 21:34 Temperature 97.7 F Pulse Rate 86 77 Blood Pressure 108/61 136/72 Pulse Oximetry 96 Oxygen Delivery Method Room Air BMI result Body Mass Index 40.3 Labs 03/21/22 04:36 04/08/22 08:38 Labs: Laboratory Results - last 48 hr 04/12/22 08:17 [place] 1.00 Medications Medications Current Medications Acetaminophen (Acetaminophen 325 Mg Tablet) 650 mg PO Q6H PRN PRN Reason: Headache/Pain Mild Scale (1-3) Last Admin: 04/03/22 16:34 Dose: 650 mg Al Hydroxide/Mg Hydroxide (Magnesium Hydrox/Alum Hydrox 30 Ml Oral.Susp) 30 ml PO Q6H PRN PRN Reason: Heartburn/Nausea Alprazolam (Alprazolam 0.5 Mg Tablet) 1 mg PO QID PRN PRN Reason: anxiety, panic Last Admin: 04/12/22 21:27 Dose: 1 mg Amphetamine/Dextroamphetamine (Dextroamphetamine/Amphetamine Xr 10 Mg Cap.Er.24h) 30 mg PO DAILY [facility] Last Admin: 04/13/22 08:17 Dose: 30 mg Benzocaine (Throat Lozenge, Medicated Lozenge) 1 lozenge MUCOUS MEM Q2H PRN PRN Reason: Sore Throat Last Admin: 04/03/22 10:20 Dose: 1 lozenge Bisacodyl (Bisacodyl 5 Mg Tablet.Dr) 10 mg PO DAILY PRN PRN Reason: Constipation Last Admin: 03/29/22 10:36 Dose: 10 mg Guaifenesin/Dextromethorphan (Guaifenesin Dm 600/30 1 Tab Tab.Er.12h) 1 tab PO BID PRN PRN Reason: cough, congestion Last Admin: 04/12/22 21:28 Dose: 1 tab Hydroxyzine HCl (Hydroxyzine Hcl 25 Mg Tablet) 25 mg PO Q6H PRN PRN Reason: Anxiety Last Admin: 03/28/22 17:05 Dose: 25 mg [place] Carbonate ([place] Carbonate Er 300 Mg Tablet.Er) 600 mg PO BID [facility] Last Admin: 04/13/22 08:18 Dose: 600 mg Loperamide HCl (Loperamide Hcl 2 Mg Capsule) 4 mg PO Q4H PRN PRN Reason: Diarrhea Last Admin: 04/06/22 16:14 Dose: 4 mg Magnesium Hydroxide (Milk Of Magnesia 30 Ml Oral.Susp) 30 ml PO DAILY PRN PRN Reason: Constipation Last Admin: 03/25/22 11:00 Dose: 30 ml Melatonin (Melatonin 3 Mg Tablet) 12 mg PO BEDTIME [facility] Last Admin: 04/12/22 21:28 Dose: 12 mg Multi-Ingred Medicated Throat [place] (Throat [place], Medicated 177 Ml Bottle) 1 spray MUCOUS MEM Q2H PRN PRN Reason: Sore Throat Last Admin: 04/08/22 08:25 Dose: 1 spray Nicotine (Nicotine 14 Mg Patch.Td24) 14 mg TRANSDERMA DAILY PRN PRN Reason: nicotine craving Nicotine Polacrilex (Nicotine Polacrilex 2 Mg Gum) 2 mg BUCCAL Q2H PRN PRN Reason: nicotine withdrawal Last Admin: 03/29/22 09:32 Dose: 2 mg Patient Own Medication ( Desvenlafaxine 100 Mg Er Tablet) 1 tab PO DAILY [facility] Last Admin: 04/12/22 08:10 Dose: 1 tab Olanzapine (Olanzapine 10 Mg Tablet) 10 mg PO BID PRN PRN Reason: impulsivity, SI, self-harm, ag Last Admin: 04/11/22 20:24 Dose: 10 mg Olanzapine (Olanzapine 5 Mg Tablet) 5 mg PO BID PRN PRN Reason: impulsivity, self harm , si, Last Admin: 04/12/22 11:16 Dose: 5 mg Prazosin HCl 10 mg/ Prazosin (HCl 4 mg) 14 mg PO BEDTIME [facility] Last Admin: 04/12/22 21:32 Dose: 14 mg Thiamine HCl (Thiamine Hcl 100 Mg Tablet) 200 mg PO DAILY [facility] Last Admin: 04/13/22 08:18 Dose: 200 mg Trazodone HCl (Trazodone Hcl 100 Mg Tablet) 300 mg PO BEDTIME [facility] Last Admin: 04/12/22 21:33 Dose: 300 mg Vitamin D (Cholecalciferol (Vitamin D3) 25 Mcg Tablet) 50 mcg PO DAILY [facility] Last Admin: 04/13/22 08:18 Dose: 50 mcg Allergies Allergies Allergy/AdvReac Type Severity Reaction Status Date / Time Sulfa (Sulfonamide Allergy Unknown HIVES Verified 03/15/21 14:13 Antibiotics) [SULFA (SULFONAMIDE ANTIBIOTICS)] sulfamethoxazole Allergy Unknown HIVES Verified 03/15/21 14:13 [From BACTRIM] trimethoprim [From BACTRIM] Allergy Unknown HIVES Verified 03/15/21 14:13 oseltamivir [From Tamiflu] AdvReac Sensation Verified 09/29/21 11:20 of bugs crawling on skin. Assessment & Plan Assessment & Plan (1) PTSD (post-traumatic stress disorder): Status: Acute Code(s): F43.10 - Post-traumatic stress disorder, unspecified (2) MDD (major depressive disorder), recurrent severe, without psychosis: Status: Acute Code(s): F33.2 - Major depressive disorder, recurrent severe without psychotic features (3) Suicidal ideation: Status: Acute Code(s): R45.851 - Suicidal ideations Plan 36 yo non binary, prefers they/them pronouns with SI. 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 Several serious precipitants-holidays, anniversary of the loss of a child they planned to co-parent and therapist moved from the area at the end of Feb 2022 however pt will be continuing via [employer] [place]. Plan: Message left for Nathen Mesa. Pt wanting to change Pristiq, possibly re-start Olanzapine. We would like his input if possible. Pristiq ordered from [employer] as it is not on formulary Collateral contact as needed Assist pt to re-establish safety. 03/24/22: Continue current plan. 03/25/22: Olanzapine prn 03/26/22: Lactulose for constipation Safety discussion with pt. Increase in anxiety after her ER e xperience. Working with team to manage her impulsivity. 03/27: Continue current regimen and plans with increase of trazodone to 300 mg 03/28: Continue current plans and regimen. 03/29: Continue current regimen and plans. A 3 day notice has been placed 03/30/22: On 03/31, Increase Adderall to 30 mg XR q a.m. 04/01/22: Increase Melatonin to 11 mg HS. 04/02/22: Continue current regime Mucinex DM prn 04/03/22: Azithromycin 500 mg today, 250 mg x 4 days thereafter 1/1/23: Continue current regime 04/05/22: IModium prn for diarrhea Monitor for increasing risk of self harm 04/06/22: Resolving physical sx of COVID Increasing emotional sx, feeling tired, worn, drained. 04/07/22: Discontinue Ibuprofen BMP, Li, TSH 04/08/22 Olanzapine 5 mg prn to alternate with 10 mg for SIBS, SI, impulsivity 04/08 continue tx. 04/09 continue tx. 04/10 continue tx. 04/11 continue tx. -monitor for sinus discomfort -check lithium level tomorrow morning -remain on one-to-one 04/12 pt would like to keep lithium level at 0.7, currently at 1.0, will decrease morning dose to 450mg po daily and keep 600mg po qhs. continue one to one. Reason for contiued inpatient stay Substantial Risk for: harm to self Time Spent With Patient Time: Total time managing care of this patient today ____ minutes.
[2022-04-12 16:56] VITALS: BP 108/61; PULSE 86; TEMP 36.5; O2SAT 96
[2022-04-12] MEDS: Melatonin 3 MG TABLET 12 MG PO (21:28)
[2022-04-12] MEDS: guaiFENesin DM 600/30 1 TAB TAB.ER.12H PO (21:28)
[2022-04-12] MEDS: PRAZOSIN HCL 14 MG PO (21:32)
[2022-04-12] MEDS: traZODone HCL 100 MG TABLET 300 MG PO (21:33)
[2022-04-12 21:34] VITALS: BP 136/72; PULSE 77
[2022-04-13 08:17] VITALS: BP 114/71; PULSE 82; RESP 16; TEMP 36.7; O2SAT 96
[2022-04-13] MEDS: Dextroamphetamine/Amphetamine XR 10 MG CAP.ER.24H 30 MG PO (08:17)
[2022-04-13] MEDS: Cholecalciferol (Vitamin D3) 25 MCG TABLET 50 MCG PO (08:18)
[2022-04-13] MEDS: Lithium Carbonate ER 300 MG TABLET.ER 600 MG PO ×2 (08:18→19:51)
[2022-04-13] MEDS: Thiamine HCL 100 MG TABLET 200 MG PO (08:18)
[2022-04-13] MEDS: ALPRAZolam 0.5 MG TABLET 1 MG PO ×2 (09:11→15:59)
[2022-04-13] MEDS: guaiFENesin DM 600/30 1 TAB TAB.ER.12H PO (09:11)
--- NOTE | 2022-04-13 14:13 | HO.PSYCHPN ---
Subjective Subjective Date of Service: 04/13/22 Reason For Visit: Depression SI PTSD Subjective Notes: Conditional Voluntary Interim History: Met with Pt and FRANCISCA Abreu. Pt reports struggling with intermittent suicidal ideation. They reports fair sleep, more visible during the day and attending some groups. Continues on one to one. Taking PRN when in emotional distressed. No self harm. Medication Compliance: Yes Side effects from medications: No Review of Systems Review of Systems Constitutional : No Weight loss, No Fever, No Chills, No Night Sweats, No Fatigue, No Malaise ENT/Mouth : No Hearing loss, No Ear Pain, No Nasal Congestion, No Sinus Pain, No Hoarseness, No sore throat, No Rhinorrhea, No Swallowing Difficulty Eyes: No Eye Pain, No Swelling, No Redness, No Foreign Body, No Discharge, No Vision Changes Cardiovascular : No Chest Pain, No SOB, No Dyspnea on Exertion, No Orthopnea, No Edema, No Palpitations Respiratory : No Cough, No Sputum, No Wheezing, No Smoke Exposure, No Dyspnea Gastrointestinal : No Nausea, No Vomiting, No Diarrhea, No Constipation, No abdominal Pain, No Hematochezia, No Melena Genitourinary : no irregular bleeding, No Dysuria, No Urinary Frequency, No Hematuria, No Urinary Incontinence, No Urgency, No Flank Pain, No Urinary Flow Changes, No Hesitancy Musculoskeletal : No joint pain, No Myalgias, No Joint Swelling Skin : No Skin Lesions, No rash Neuro : No Weakness, No Numbness, No Paresthesias, No Loss of Consciousness, No Dizziness, No Headache Psych : Complaining of severe anxiety and suicidal ideation, no homicidal ideation Heme/Lymph: No Bruising, No Bleeding,No Lymphadenopathy Endocrine : No Polyuria, No Polydipsia, No Temperature Intolerance Yes all other systems are reviewed and are negative Psychiatric: Reports anxiety, Reports depression, Reports difficulty concentrating, Reports hopelessness, Reports anhedonia and Reports suicidal ideation Mental Status Exam Mental Status Exam Narrative: NAD. Normally ambulation. Motor activity calm. Patient Appearance: Well Grooomed and Appropriate Patient Orientation: Person, Place, Time and Situation Level of Consciousness: Appropriate Patient Behavior: Appropriate, Cooperative and Good Eye Contact Mood Description: Anxious Affect Description: Appropriate, Constricted and Anxious (slightly) Patient Cognition Impaired: No Ability to Follow Directions: Excellent Speech Pattern: Clear, Appropriate and Coherent Memory Description: Intact Diagnostics Vital Signs (24Hr): Vital Signs - 24 hr 04/13/22 18:00 04/14/22 08:28 Temperature 97.9 F 97.2 F Pulse Rate 70 83 Respiratory Rate 18 Blood Pressure 130/71 132/77 Pulse Oximetry 95 97 Oxygen Delivery Method Room Air Room Air BMI result Body Mass Index 40.3 Labs 03/21/22 04:36 04/08/22 08:38 Medications Medications Current Medications Acetaminophen (Acetaminophen 325 Mg Tablet) 650 mg PO Q6H PRN PRN Reason: Headache/Pain Mild Scale (1-3) Last Admin: 04/03/22 16:34 Dose: 650 mg Al Hydroxide/Mg Hydroxide (Magnesium Hydrox/Alum Hydrox 30 Ml Oral.Susp) 30 ml PO Q6H PRN PRN Reason: Heartburn/Nausea Alprazolam (Alprazolam 0.5 Mg Tablet) 1 mg PO QID PRN PRN Reason: Anxiety Last Admin: 04/14/22 14:30 Dose: 1 mg Amphetamine/Dextroamphetamine (Dextroamphetamine/Amphetamine Xr 10 Mg Cap.Er.24h) 30 mg PO DAILY [facility] Last Admin: 04/14/22 08:11 Dose: 30 mg Benzocaine (Throat Lozenge, Medicated Lozenge) 1 lozenge MUCOUS MEM Q2H PRN PRN Reason: Sore Throat Last Admin: 04/03/22 10:20 Dose: 1 lozenge Bisacodyl (Bisacodyl 5 Mg Tablet.Dr) 10 mg PO DAILY PRN PRN Reason: Constipation Last Admin: 03/29/22 10:36 Dose: 10 mg Guaifenesin/Dextromethorphan (Guaifenesin Dm 600/30 1 Tab Tab.Er.12h) 1 tab PO BID PRN PRN Reason: cough, congestion Last Admin: 04/13/22 09:11 Dose: 1 tab Hydroxyzine HCl (Hydroxyzine Hcl 25 Mg Tablet) 25 mg PO Q6H PRN PRN Reason: Anxiety Last Admin: 03/28/22 17:05 Dose: 25 mg [place] Carbonate ([place] Carbonate Er 300 Mg Tablet.Er) 600 mg PO BEDTIME [facility] Last Admin: 04/13/22 19:51 Dose: 600 mg [place] Carbonate ([place] Carbonate Er 450 Mg Tablet.Er) 450 mg PO DAILY [facility] Last Admin: 04/14/22 08:11 Dose: 450 mg Loperamide HCl (Loperamide Hcl 2 Mg Capsule) 4 mg PO Q4H PRN PRN Reason: Diarrhea Last Admin: 04/06/22 16:14 Dose: 4 mg Magnesium Hydroxide (Milk Of Magnesia 30 Ml Oral.Susp) 30 ml PO DAILY PRN PRN Reason: Constipation Last Admin: 03/25/22 11:00 Dose: 30 ml Melatonin (Melatonin 3 Mg Tablet) 12 mg PO BEDTIME [facility] Last Admin: 04/13/22 19:51 Dose: 12 mg Multi-Ingred Medicated Throat [place] (Throat [place], Medicated 177 Ml Bottle) 1 spray MUCOUS MEM Q2H PRN PRN Reason: Sore Throat Last Admin: 04/08/22 08:25 Dose: 1 spray Nicotine (Nicotine 14 Mg Patch.Td24) 14 mg TRANSDERMA DAILY PRN PRN Reason: nicotine craving Nicotine Polacrilex (Nicotine Polacrilex 2 Mg Gum) 2 mg BUCCAL Q2H PRN PRN Reason: nicotine withdrawal Last Admin: 03/29/22 09:32 Dose: 2 mg Patient Own Medication ( Desvenlafaxine 100 Mg Er Tablet) 1 tab PO DAILY [facility] Last Admin: 04/14/22 08:11 Dose: 1 tab Olanzapine (Olanzapine 10 Mg Tablet) 10 mg PO BID PRN PRN Reason: impulsivity, SI, self-harm, ag Last Admin: 04/13/22 19:51 Dose: 10 mg Olanzapine (Olanzapine 5 Mg Tablet) 5 mg PO BID PRN PRN Reason: impulsivity, self harm , si, Last Admin: 04/13/22 15:59 Dose: 5 mg Prazosin HCl 10 mg/ Prazosin (HCl 4 mg) 14 mg PO BEDTIME [facility] Last Admin: 04/13/22 19:51 Dose: 14 mg Thiamine HCl (Thiamine Hcl 100 Mg Tablet) 200 mg PO DAILY [facility] Last Admin: 04/14/22 08:11 Dose: 200 mg Trazodone HCl (Trazodone Hcl 100 Mg Tablet) 300 mg PO BEDTIME [facility] Last Admin: 04/13/22 19:51 Dose: 300 mg Vitamin D (Cholecalciferol (Vitamin D3) 25 Mcg Tablet) 50 mcg PO DAILY [facility] Last Admin: 04/14/22 08:12 Dose: 50 mcg Allergies Allergies Allergy/AdvReac Type Severity Reaction Status Date / Time Sulfa (Sulfonamide Allergy Unknown HIVES Verified 03/15/21 14:13 Antibiotics) [SULFA (SULFONAMIDE ANTIBIOTICS)] sulfamethoxazole Allergy Unknown HIVES Verified 03/15/21 14:13 [From BACTRIM] trimethoprim [From BACTRIM] Allergy Unknown HIVES Verified 03/15/21 14:13 oseltamivir [From Tamiflu] AdvReac Sensation Verified 09/29/21 11:20 of bugs crawling on skin. Assessment & Plan Assessment & Plan (1) PTSD (post-traumatic stress disorder): Status: Acute Code(s): F43.10 - Post-traumatic stress disorder, unspecified (2) MDD (major depressive disorder), recurrent severe, without psychosis: Status: Acute Code(s): F33.2 - Major depressive disorder, recurrent severe without psychotic features (3) Suicidal ideation: Status: Acute Code(s): R45.851 - Suicidal ideations Plan 36 yo non binary, prefers they/them pronouns with SI. 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 Several serious precipitants-holidays, anniversary of the loss of a child they planned to co-parent and therapist moved from the area at the end of Feb 2022 however pt will be continuing via [employer]. Plan: Message left for Nathen Mesa. Pt wanting to change Pristiq, possibly re-start Olanzapine. We would like his input if possible. Pristiq ordered from [employer] as it is not on formulary Collateral contact as needed Assist pt to re-establish safety. 03/24/22: Continue current plan. 03/25/22: Olanzapine prn 03/26/22: Lactulose for constipation Safety discussion with pt. Increase in anxiety after her ER experience. Working with team to manage her impulsivity. 03/27: Continue current regimen and plans with increase of trazodone to 300 mg 03/28: Continue current plans and regimen. 03/29: Continue current regimen and plans. A 3 day notice has been placed 03/30/22: On 03/31, Increase Adderall to 30 mg XR q a.m. 04/01/22: Increase Melatonin to 11 mg HS. 04/02/22: Continue current regime Mucinex DM prn 04/03/22: Azithromycin 500 mg today, 250 mg x 4 days thereafter 04/04/22: Continue current regime 04/05/22: IModium prn for diarrhea Monitor for increasing risk of self harm 04/06/22: Resolving physical sx of COVID Increasing emotional sx, feeling tired, worn, drained. 04/07/22: Discontinue Ibuprofen BMP, Li, TSH 04/08/22 Olanzapine 5 mg prn to alternate with 10 mg for SIBS, SI, impulsivity 04/08 continue tx. 04/09 continue tx. 04/10 continue tx. 04/11 continue tx. -monitor for sinus discomfort -check lithium level tomorrow morning -remain on one-to-one 04/12 pt would like to keep lithium level at 0.7, currently at 1.0, will decrease morning dose to 450mg po daily and keep 600mg po qhs. continue one to one. 04/13 continue tx. Reason for contiued inpatient stay Substantial Risk for: harm to self Time Spent With Patient Time: Total time managing care of this patient today ____ minutes.
[2022-04-13] MEDS: OLANZapine 5 MG TABLET PO (15:59)
[2022-04-13 18:00] VITALS: BP 130/71; PULSE 70; TEMP 36.6; O2SAT 95
[2022-04-13] MEDS: traZODone HCL 100 MG TABLET 300 MG PO (19:51)
[2022-04-13] MEDS: Melatonin 3 MG TABLET 12 MG PO (19:51)
[2022-04-13] MEDS: OLANZapine 10 MG TABLET PO (19:51)
[2022-04-13] MEDS: PRAZOSIN HCL 14 MG PO (19:51)
[2022-04-14] MEDS: Thiamine HCL 100 MG TABLET 200 MG PO (08:11)
[2022-04-14] MEDS: Lithium Carbonate ER 450 MG TABLET.ER PO (08:11)
[2022-04-14] MEDS: ALPRAZolam 0.5 MG TABLET 1 MG PO ×3 (08:11→20:57)
[2022-04-14] MEDS: Dextroamphetamine/Amphetamine XR 10 MG CAP.ER.24H 30 MG PO (08:11)
[2022-04-14] MEDS: Cholecalciferol (Vitamin D3) 25 MCG TABLET 50 MCG PO (08:12)
[2022-04-14 08:28] VITALS: BP 132/77; PULSE 83; RESP 18; TEMP 36.2; O2SAT 97
--- NOTE | 2022-04-14 13:22 | P.PNPSI_ITS ---
Subjective Subjective Date of Service: 04/14/22 Reason For Visit: Depression SI PTSD Subjective Notes: Conditional Voluntary Interim History: Met with Pt and FRANCISCA Abreu. Pt continues to report struggling with intermittent suicidal ideation. Last night increase difficult falling and staying asleep. Pt more visible during the day and attending some groups. Continues on one to one. Taking PRN when in emotional distressed. No self harm. Review of Systems Review of Systems Constitutional : No Weight loss, No Fever, No Chills, No Night Sweats, No Fatigue, No Malaise ENT/Mouth : No Hearing loss, No Ear Pain, No Nasal Congestion, No Sinus Pain, No Hoarseness, No sore throat, No Rhinorrhea, No Swallowing Difficulty Eyes: No Eye Pain, No Swelling, No Redness, No Foreign Body, No Discharge, No Vision Changes Cardiovascular : No Chest Pain, No SOB, No Dyspnea on Exertion, No Orthopnea, No Edema, No Palpitations Respiratory : No Cough, No Sputum, No Wheezing, No Smoke Exposure, No Dyspnea Gastrointestinal : No Nausea, No Vomiting, No Diarrhea, No Constipation, No abdominal Pain, No Hematochezia, No Melena Genitourinary : no irregular bleeding, No Dysuria, No Urinary Frequency, No Hematuria, No Urinary Incontinence, No Urgency, No Flank Pain, No Urinary Flow Changes, No Hesitancy Musculoskeletal : No joint pain, No Myalgias, No Joint Swelling Skin : No Skin Lesions, No rash Neuro : No Weakness, No Numbness, No Paresthesias, No Loss of Consciousness, No Dizziness, No Headache Psych : Complaining of severe anxiety and suicidal ideation, no homicidal ideation Heme/Lymph: No Bruising, No Bleeding,No Lymphadenopathy Endocrine : No Polyuria, No Polydipsia, No Temperature Intolerance Yes all other systems are reviewed and are negative Psychiatric: Reports anxiety, Reports depression, Reports difficulty concentrating, Reports hopelessness, Reports anhedonia and Reports suicidal ideation Mental Status Exam Mental Status Exam Narrative: NAD. Normally ambulation. Motor activity calm. Patient Appearance: Well Grooomed and Appropriate Patient Orientation: Person, Place, Time and Situation Level of Consciousness: Appropriate Patient Behavior: Appropriate, Cooperative and Good Eye Contact Mood Description: Anxious Affect Description: Appropriate, Constricted and Anxious (slightly) Patient Cognition Impaired: No Ability to Follow Directions: Excellent Speech Pattern: Clear, Appropriate and Coherent Memory Description: Intact Diagnostics Vital Signs (24Hr): Vital Signs - 24 hr 04/13/22 18:00 04/14/22 08:28 Temperature 97.9 F 97.2 F Pulse Rate 70 83 Respiratory Rate 18 Blood Pressure 130/71 132/77 Pulse Oximetry 95 97 Oxygen Delivery Method Room Air Room Air BMI result Body Mass Index 40.3 Labs 03/21/22 04:36 04/08/22 08:38 Medications Medications Current Medications Acetaminophen (Acetaminophen 325 Mg Tablet) 650 mg PO Q6H PRN PRN Reason: Headache/Pain Mild Scale (1-3) Last Admin: 04/03/22 16:34 Dose: 650 mg Al Hydroxide/Mg Hydroxide (Magnesium Hydrox/Alum Hydrox 30 Ml Oral.Susp) 30 ml PO Q6H PRN PRN Reason: Heartburn/Nausea Alprazolam (Alprazolam 0.5 Mg Tablet) 1 mg PO QID PRN PRN Reason: Anxiety Last Admin: 04/14/22 14:30 Dose: 1 mg Amphetamine/Dextroamphetamine (Dextroamphetamine/Amphetamine Xr 10 Mg Cap .Er.24h) 30 mg PO DAILY [facility] Last Admin: 04/14/22 08:11 Dose: 30 mg Benzocaine (Throat Lozenge, Medicated Lozenge) 1 lozenge MUCOUS MEM Q2H PRN PRN Reason: Sore Throat Last Admin: 04/03/22 10:20 Dose: 1 lozenge Bisacodyl (Bisacodyl 5 Mg Tablet.Dr) 10 mg PO DAILY PRN PRN Reason: Constipation Last Admin: 03/29/22 10:36 Dose: 10 mg Guaifenesin/Dextromethorphan (Guaifenesin Dm 600/30 1 Tab Tab.Er.12h) 1 tab PO BID PRN PRN Reason: cough, congestion Last Admin: 04/13/22 09:11 Dose: 1 tab Hydroxyzine HCl (Hydroxyzine Hcl 25 Mg Tablet) 25 mg PO Q6H PRN PRN Reason: Anxiety Last Admin: 03/28/22 17:05 Dose: 25 mg [place] Carbonate ([place] Carbonate Er 300 Mg Tablet.Er) 600 mg PO BEDTIME [facility] Last Admin: 04/13/22 19:51 Dose: 600 mg [place] Carbonate ([place] Carbonate Er 450 Mg Tablet.Er) 450 mg PO DAILY [facility] Last Admin: 04/14/22 08:11 Dose: 450 mg Loperamide HCl (Loperamide Hcl 2 Mg Capsule) 4 mg PO Q4H PRN PRN Reason: Diarrhea Last Admin: 04/06/22 16:14 Dose: 4 mg Magnesium Hydroxide (Milk Of Magnesia 30 Ml Oral.Susp) 30 ml PO DAILY PRN PRN Reason: Constipation Last Admin: 03/25/22 11:00 Dose: 30 ml Melatonin (Melatonin 3 Mg Tablet) 12 mg PO BEDTIME [facility] Last Admin: 04/13/22 19:51 Dose: 12 mg Multi-Ingred Medicated Throat [place] (Throat [place], Medicated 177 Ml Bottle) 1 spray MUCOUS MEM Q2H PRN PRN Reason: Sore Throat Last Admin: 04/08/22 08:25 Dose: 1 spray Nicotine (Nicotine 14 Mg Patch.Td24) 14 mg TRANSDERMA DAILY PRN PRN Reason: nicotine craving Nicotine Polacrilex (Nicotine Polacrilex 2 Mg Gum) 2 mg BUCCAL Q2H PRN PRN Reason: nicotine withdrawal Last Admin: 03/29/22 09:32 Dose: 2 mg Patient Own Medication ( Desvenlafaxine 100 Mg Er Tablet) 1 tab PO DAILY [facility] Last Admin: 04/14/22 08:11 Dose: 1 tab Olanzapine (Olanzapine 10 Mg Tablet) 10 mg PO BID PRN PRN Reason: impulsivity, SI, self-harm, ag Last Admin: 04/13/22 19:51 Dose: 10 mg Olanzapine (Olanzapine 5 Mg Tablet) 5 mg PO BID PRN PRN Reason: impulsivity, self harm , si, Last Admin: 04/13/22 15:59 Dose: 5 mg Prazosin HCl 10 mg/ Prazosin (HCl 4 mg) 14 mg PO BEDTIME [facility] Last Admin: 04/13/22 19:51 Dose: 14 mg Thiamine HCl (Thiamine Hcl 100 Mg Tablet) 200 mg PO DAILY [facility] Last Admin: 04/14/22 08:11 Dose: 200 mg Trazodone HCl (Trazodone Hcl 100 Mg Tablet) 300 mg PO BEDTIME [facility] Last Admin: 04/13/22 19:51 Dose: 300 mg Vitamin D (Cholecalciferol (Vitamin D3) 25 Mcg Tablet) 50 mcg PO DAILY [facility] Last Admin: 04/14/22 08:12 Dose: 50 mcg Allergies Allergies Allergy/AdvReac Type Severity Reaction Status Date / Time Sulfa (Sulfonamide Allergy Unknown HIVES Verified 03/15/21 14:13 Antibiotics) [SULFA (SULFONAMIDE ANTIBIOTICS)] sulfamethoxazole Allergy Unknown HIVES Verified 03/15/21 14:13 [From BACTRIM] trimethoprim [From BACTRIM] Allergy Unknown HIVES Verified 03/15/21 14:13 oseltamivir [From Tamiflu] AdvReac Sensation Verified 09/29/21 11:20 of bugs crawling on skin. Assessment & Plan Assessment & Plan (1) PTSD (post-traumatic stress disorder): Status: Acute Code(s): F43.10 - Post-traumatic stress disorder, unspecified (2) MDD (major depressive disorder), recurrent severe, without psychosis: Status: Acute Code(s): F33.2 - Major depressive disorder, recurrent severe without psychotic features (3) Suicidal ideation: Status: Acute Code(s): R45.851 - Suicidal ideations Plan 36 yo non binary, prefers they/them pronouns with SI. 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 Several serious precipitants-holidays, anniversary of the loss of a child they planned to co-parent and therapist moved from the area at the end of Feb 2022 however pt will be continuing via [employer]. Plan: Message left for Nathen Mesa. Pt wanting to change Pristiq, possibly re-start Olanzapine. We would like his input if possible. Pristiq ordered from [employer] as it is not on formulary Collateral contact as needed Assist pt to re-establish safety. 03/24/22: Continue current plan. 03/25/22: Olanzapine prn 03/26/22: Lactulose for constipation Safety discussion with pt. Increase in anxiety after her ER experience. Working with team to manage her impulsivity. 03/27: Continue current regimen and plans with increase of trazodone to 300 mg 03/28: Continue current plans and regimen. 03/29: Continue current regimen and plans. A 3 day notice has been placed 03/30/22: On 03/31, Increase Adderall to 30 mg XR q a.m. 04/01/22: Increase Melatonin to 11 mg HS. 04/02/22: Continue current regime Mucinex DM prn 04/03/22: Azithromycin 500 mg today, 250 mg x 4 days thereafter 04/04/22: Continue current regime 04/05/22: IModium prn for diarrhea Monitor for increasing risk of self harm 04/06/22: Resolving physical sx of COVID Increasing emotional sx, feeling tired, worn, drained. 04/07/22: Discontinue Ibuprofen BMP, Li, TSH 04/08/22 Olanzapine 5 mg prn to alternate with 10 mg for SIBS, SI, impulsivity 04/08 continue tx. 04/09 continue tx. 04/10 continue tx. 04/11 continue tx. -monitor for sinus discomfort -check lithium level tomorrow morning -remain on one-to-one 04/12 pt would like to keep lithium level at 0.7, currently at 1.0, will decrease morning dose to 450mg po daily and keep 600mg po qhs. continue one to one. 04/13 continue tx. 04/14 continue tx, re check lithium level next . Reason for contiued inpatient stay Substantial Risk for: inability to function Time Spent With Patient Time: Total time managing care of this patient today ____ minutes.
[2022-04-14 18:00] VITALS: BP 124/68; PULSE 78; RESP 16; TEMP 36.4; O2SAT 99
[2022-04-14] MEDS: Lithium Carbonate ER 300 MG TABLET.ER 600 MG PO (20:27)
[2022-04-14] MEDS: PRAZOSIN HCL 14 MG PO (20:27)
[2022-04-14] MEDS: traZODone HCL 100 MG TABLET 300 MG PO (20:27)
[2022-04-14] MEDS: Melatonin 3 MG TABLET 12 MG PO (20:28)
[2022-04-15] MEDS: Dextroamphetamine/Amphetamine XR 10 MG CAP.ER.24H 30 MG PO (08:19)
[2022-04-15] MEDS: ALPRAZolam 0.5 MG TABLET 1 MG PO ×3 (08:19→22:28)
[2022-04-15] MEDS: Thiamine HCL 100 MG TABLET 200 MG PO (08:19)
[2022-04-15] MEDS: Cholecalciferol (Vitamin D3) 25 MCG TABLET 50 MCG PO (08:20)
[2022-04-15] MEDS: Lithium Carbonate ER 450 MG TABLET.ER PO (08:20)
[2022-04-15 09:10] VITALS: BP 111/65; PULSE 89; RESP 18; TEMP 36.1; O2SAT 97
[2022-04-15] MEDS: OLANZapine 5 MG TABLET PO (13:27)
--- NOTE | 2022-04-15 14:04 | P.PNPSI_ITS ---
Subjective Subjective Date of Service: 04/15/22 Reason For Visit: Depression SI PTSD Subjective Notes: Conditional Voluntary Interim History: Met with Pt and FRANCISCA Abreu. Pt continues to report struggling with intermittent suicidal ideation. Last night increase difficult falling and staying asleep. Pt more visible during the day and attending some groups. Continues on one to one. Pt reports yesterday used less PRN medications, tearful because they do not want to depend on PRN medication. No self harm. Review of Systems Review of Systems Constitutional : No Weight loss, No Fever, No Chills, No Night Sweats, No Fatigue, No Malaise ENT/Mouth : No Hearing loss, No Ear Pain, No Nasal Congestion, No Sinus Pain, No Hoarseness, No sore throat, No Rhinorrhea, No Swallowing Difficulty Eyes: No Eye Pain, No Swelling, No Redness, No Foreign Body, No Discharge, No Vision Changes Cardiovascular : No Chest Pain, No SOB, No Dyspnea on Exertion, No Orthopnea, No Edema, No Palpitations Respiratory : No Cough, No Sputum, No Wheezing, No Smoke Exposure, No Dyspnea Gastrointestinal : No Nausea, No Vomiting, No Diarrhea, No Constipation, No abdominal Pain, No Hematochezia, No Melena Genitourinary : no irregular bleeding, No Dysuria, No Urinary Frequency, No Hematuria, No Urinary Incontinence, No Urgency, No Flank Pain, No Urinary Flow Changes, No Hesitancy Musculoskeletal : No joint pain, No Myalgias, No Joint Swelling Skin : No Skin Lesions, No rash Neuro : No Weakness, No Numbness, No Paresthesias, No Loss of Consciousness, No Dizziness, No Headache Psych : Complaining of severe anxiety and suicidal ideation, no homicidal ideation Heme/Lymph: No Bruising, No Bleeding,No Lymphadenopathy Endocrine : No Polyuria, No Polydipsia, No Temperature Intolerance Yes all other systems are reviewed and are negative Psychiatric: Reports anxiety, Reports depression, Reports difficulty concentrating, Reports hopelessness, Reports anhedonia and Reports suicidal ideation Mental Status Exam Mental Status Exam Narrative: NAD. Normally ambulation. Motor activity calm. Patient Appearance: Well Grooomed and Appropriate Patient Orientation: Person, Place, Time and Situation Level of Consciousness: Appropriate Patient Behavior: Appropriate, Cooperative and Good Eye Contact Mood Description: Anxious Affect Description: Appropriate, Constricted and Anxious (slightly) Patient Cognition Impaired: No Ability to Follow Directions: Excellent Speech Pattern: Clear, Appropriate and Coherent Memory Description: Intact Diagnostics Vital Signs (24Hr): Vital Signs - 24 hr 04/14/22 18:00 04/15/22 09:10 Temperature 97.6 F 97.0 F Pulse Rate 78 89 Respiratory Rate 16 18 Blood Pressure 124/68 111/65 Pulse Oximetry 99 97 Oxygen Delivery Method Room Air Room Air BMI result Body Mass Index 40.3 Labs 03/21/22 04:36 04/08/22 08:38 Medications Medications Current Medications Acetaminophen (Acetaminophen 325 Mg Tablet) 650 mg PO Q6H PRN PRN Reason: Headache/Pain Mild Scale (1-3) Last Admin: 04/03/22 16:34 Dose: 650 mg Al Hydroxide/Mg Hydroxide (Magnesium Hydrox/Alum Hydrox 30 Ml Oral.Susp) 30 ml PO Q6H PRN PRN Reason: Heartburn/Nausea Alprazolam (Alprazolam 0.5 Mg Tablet) 1 mg PO QID PRN PRN Reason: Anxiety Last Admin: 04/15/22 15:58 Dose: 1 mg Amphetamine/Dextroamphetamine (Dextroamphetamine/Amphetamine Xr 10 Mg Cap.Er.24h) 30 mg PO DAILY [facility]ACEY Last Admin: 04/15/22 08:19 Dose: 30 mg Benzocaine (Throat Lozenge, Medicated Lozenge) 1 lozenge MUCOUS MEM Q2H PRN PRN Reason: Sore Throat Last Admin: 04/03/22 10:20 Dose: 1 lozenge Bisacodyl (Bisacodyl 5 Mg Tablet.Dr) 10 mg PO DAILY PRN PRN Reason: Constipation Last Admin: 03/29/22 10:36 Dose: 10 mg Guaifenesin/Dextromethorphan (Guaifenesin Dm 600/30 1 Tab Tab.Er.12h) 1 tab PO BID PRN PRN Reason: cough, congestion Last Admin: 04/13/22 09:11 Dose: 1 tab Hydroxyzine HCl (Hydroxyzine Hcl 25 Mg Tablet) 25 mg PO Q6H PRN PRN Reason: Anxiety Last Admin: 03/28/22 17:05 Dose: 25 mg [place] Carbonate ([place] Carbonate Er 300 Mg Tablet.Er) 600 mg PO BEDTIME [facility] Last Admin: 04/14/22 20:27 Dose: 600 mg [place] Carbonate ([place] Carbonate Er 450 Mg Tablet.Er) 450 mg PO DAILY [facility]ACEY Last Admin: 04/15/22 08:20 Dose: 450 mg Loperamide HCl (Loperamide Hcl 2 Mg Capsule) 4 mg PO Q4H PRN PRN Reason: Diarrhea Last Admin: 04/06/22 16:14 Dose: 4 mg Magnesium Hydroxide (Milk Of Magnesia 30 Ml Oral.Susp) 30 ml PO DAILY PRN PRN Reason: Constipation Last Admin: 03/25/22 11:00 Dose: 30 ml Melatonin (Melatonin 3 Mg Tablet) 12 mg PO BEDTIME [facility] Last Admin: 04/14/22 20:28 Dose: 12 mg Multi-Ingred Medicated Throat [place] (Throat [place], Medicated 177 Ml Bottle) 1 spray MUCOUS MEM Q2H PRN PRN Reason: Sore Throat Last Admin: 04/08/22 08:25 Dose: 1 spray Nicotine (Nicotine 14 Mg Patch.Td24) 14 mg TRANSDERMA DAILY PRN PRN Reason: nicotine craving Nicotine Polacrilex (Nicotine Polacrilex 2 Mg Gum) 2 mg BUCCAL Q2H PRN PRN Reason: nicotine withdrawal Last Admin: 03/29/22 09:32 Dose: 2 mg Patient Own Medication ( Desvenlafaxine 100 Mg Er Tablet) 1 tab PO DAILY [facility] Last Admin: 04/15/22 08:22 Dose: 1 tab Olanzapine (Olanzapine 10 Mg Tablet) 10 mg PO BID PRN PRN Reason: impulsivity, SI, self-harm, ag Last Admin: 04/13/22 19:51 Dose: 10 mg Olanzapine (Olanzapine 5 Mg Tablet) 5 mg PO BID PRN PRN Reason: impulsivity, self harm , si, Last Admin: 04/15/22 13:27 Dose: 5 mg Prazosin HCl 10 mg/ Prazosin (HCl 4 mg) 14 mg PO BEDTIME [facility] Last Admin: 04/14/22 20:27 Dose: 14 mg Thiamine HCl (Thiamine Hcl 100 Mg Tablet) 200 mg PO DAILY [facility] Last Admin: 04/15/22 08:19 Dose: 200 mg Trazodone HCl (Trazodone Hcl 100 Mg Tablet) 300 mg PO BEDTIME [facility] Last Admin: 04/14/22 20:27 Dose: 300 mg Vitamin D (Cholecalciferol (Vitamin D3) 25 Mcg Tablet) 50 mcg PO DAILY [facility] Last Admin: 04/15/22 08:20 Dose: 50 mcg Allergies Allergies Allergy/AdvReac Type Severity Reaction Status Date / Time Sulfa (Sulfonamide Allergy Unknown HIVES Verified 03/15/21 14:13 Antibiotics) [SULFA (SULFONAMIDE ANTIBIOTICS)] sulfamethoxazole Allergy Unknown HIVES Verified 03/15/21 14:13 [From BACTRIM] trimethoprim [From BACTRIM] Allergy Unknown HIVES Verified 03/15/21 14:13 oseltamivir [From Tamiflu] AdvReac Sensation Verified 09/29/21 11:20 of bugs crawling on skin. Assessment & Plan Assessment & Plan (1) PTSD (post-traumatic stress disorder): Status: Acute Code(s): F43.10 - Post-traumatic stress disorder, unspecified (2) MDD (major depressive disorder), recurrent severe, without psychosis: Status: Acute Code(s): F33.2 - Major depressive disorder, recurrent severe without psychotic features (3) Suicidal ideation: Status: Acute Code(s): R45.851 - Suicidal ideations Plan 36 yo non binary, prefers they/them pronouns with SI. 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 Several serious precipitants-holidays, anniversary of the loss of a child they planned to co-parent and therapist moved from the area at the end of Feb 2022 however pt will be continuing via [employer]. Plan: Message left for Nathen Mesa. Pt wanting to change Pristiq, possibly re-start Olanzapine. We would like his input if possible. Pristiq ordered from [employer] as it is not on formulary Collateral contact as needed Assist pt to re-establish safety. 03/24/22: Continue current plan. 03/25/22: Olanzapine prn 03/26/22: Lactulose for constipation Safety discussion with pt. Increase in anxiety after her ER experience. Working with team to manage her impulsivity. 03/27: Continue current regimen and plans with increase of trazodone to 300 mg 03/28: Continue current plans and regimen. 03/29: Continue current regimen and plans. A 3 day notice has been placed 03/30/22: On 03/31, Increase Adderall to 30 mg XR q a.m. 04/01/22: Increase Melatonin to 11 mg HS. 04/02/22: Continue current regime Mucinex DM prn 04/03/22: Azithromycin 500 mg today, 250 mg x 4 days thereafter 04/04/22: Continue current regime 04/05/22: IModium prn for diarrhea Monitor for increasing risk of self harm 04/06/22: Resolving physical sx of COVID Increasing emotional sx, feeling tired, worn, drained. 04/07/22: Discontinue Ibuprofen BMP, Li, TSH 04/08/22 Olanzapine 5 mg prn to alternate with 10 mg for SIBS, SI, impulsivity 04/08 continue tx. 04/09 continue tx. 04/10 continue tx. 04/11 continue tx. -monitor for sinus discomfort -check lithium level tomorrow morning -remain on one-to-one 04/12 pt would like to keep lithium level at 0.7, currently at 1.0, will decrease morning dose to 450mg po daily and keep 600mg po qhs. continue one to one. 04/13 continue tx. 04/14 continue tx, re check lithium level next . 04/15 ocontinue tx. Reason for contiued inpatient stay Substantial Risk for: harm to self Time Spent With Patient Time: Total time managing care of this patient today ____ minutes.
[2022-04-15 18:00] VITALS: BP 132/77; PULSE 78; RESP 18; O2SAT 98
[2022-04-15] MEDS: traZODone HCL 100 MG TABLET 300 MG PO (22:26)
[2022-04-15] MEDS: Melatonin 3 MG TABLET 12 MG PO (22:27)
[2022-04-15] MEDS: PRAZOSIN HCL 14 MG PO (22:28)
[2022-04-15] MEDS: Lithium Carbonate ER 300 MG TABLET.ER 600 MG PO (22:28)
[2022-04-16] MEDS: Lithium Carbonate ER 450 MG TABLET.ER PO (08:07)
[2022-04-16] MEDS: ALPRAZolam 0.5 MG TABLET 1 MG PO ×3 (08:07→19:25)
[2022-04-16] MEDS: Thiamine HCL 100 MG TABLET 200 MG PO (08:07)
[2022-04-16] MEDS: Cholecalciferol (Vitamin D3) 25 MCG TABLET 50 MCG PO (08:07)
[2022-04-16] MEDS: Dextroamphetamine/Amphetamine XR 10 MG CAP.ER.24H 30 MG PO (08:07)
[2022-04-16 09:49] VITALS: BP 103/54; PULSE 96; RESP 18; TEMP 33.8; O2SAT 98
--- NOTE | 2022-04-16 13:07 | HO.PSYCHPN ---
Subjective Subjective Date of Service: 04/16/22 Reason For Visit: Depression SI PTSD Subjective Notes: Conditional Voluntary Interim History: Met with Pt and FRANCISCA Abreu. Pt continues to report struggling with intermittent suicidal ideation. But pt reports they have periods of enjoyment. At same time, pt reports I'm astonished that I have not bang my head. Last night increase difficult falling and staying asleep- will add benadryl for tonight for sleep and some residual congestion. Pt more visible during the day and attending some groups. Continues on one to one. Pt reports yesterday used less PRN medications, tearful because they do not want to depend on PRN medication. No self harm. Medication Compliance: Yes Review of Systems Review of Systems Constitutional : No Weight loss, No Fever, No Chills, No Night Sweats, No Fatigue, No Malaise ENT/Mouth : No Hearing loss, No Ear Pain, No Nasal Congestion, No Sinus Pain, No Hoarseness, No sore throat, No Rhinorrhea, No Swallowing Difficulty Eyes: No Eye Pain, No Swelling, No Redness, No Foreign Body, No Discharge, No Vision Changes Cardiovascular : No Chest Pain, No SOB, No Dyspnea on Exertion, No Orthopnea, No Edema, No Palpitations Respiratory : No Cough, No Sputum, No Wheezing, No Smoke Exposure, No Dyspnea Gastrointestinal : No Nausea, No Vomiting, No Diarrhea, No Constipation, No abdominal Pain, No Hematochezia, No Melena Genitourinary : no irregular bleeding, No Dysuria, No Urinary Frequency, No Hematuria, No Urinary Incontinence, No Urgency, No Flank Pain, No Urinary Flow Changes, No Hesitancy Musculoskeletal : No joint pain, No Myalgias, No Joint Swelling Skin : No Skin Lesions, No rash Neuro : No Weakness, No Numbness, No Paresthesias, No Loss of Consciousness, No Dizziness, No Headache Psych : Complaining of severe anxiety and suicidal ideation, no homicidal ideation Heme/Lymph: No Bruising, No Bleeding,No Lymphadenopathy Endocrine : No Polyuria, No Polydipsia, No Temperature Intolerance Yes all other systems are reviewed and are negative Psychiatric: Reports anxiety, Reports depression, Reports difficulty concentrating, Reports hopelessness, Reports anhedonia and Reports suicidal ideation Mental Status Exam Mental Status Exam Narrative: NAD. Normally ambulation. Motor activity calm. Patient Appearance: Well Grooomed and Appropriate Patient Orientation: Person, Place, Time and Situation Level of Consciousness: Appropriate Patient Behavior: Appropriate, Cooperative and Good Eye Contact Mood Description: Anxious Affect Description: Appropriate, Constricted and Anxious (slightly) Patient Cognition Impaired: No Ability to Follow Directions: Excellent Speech Pattern: Clear, Appropriate and Coherent Memory Description: Intact Diagnostics Vital Signs (24Hr): Vital Signs - 24 hr 04/15/22 18:00 04/16/22 09:49 Temperature 92.8 F L Pulse Rate 78 96 Respiratory Rate 18 18 Blood Pressure 132/77 103/54 L Pulse Oximetry 98 98 Oxygen Delivery Method Room Air Room Air BMI result Body Mass Index 40.3 Labs 03/21/22 04:36 04/08/22 08:38 Medications Medications Current Medications Acetaminophen (Acetaminophen 325 Mg Tablet) 650 mg PO Q6H PRN PRN Reason: Headache/Pain Mild Scale (1-3) Last Admin: 04/03/22 16:34 Dose: 650 mg Al Hydroxide/Mg Hydroxide (Magnesium Hydrox/Alum Hydrox 30 Ml Oral.Susp) 30 ml PO Q6H PRN PRN Reason: Heartburn/Nausea Alprazolam (Alprazolam 0.5 Mg Tablet) 1 mg PO QID PRN PRN Reason: Anxiety Last Admin: 04/16/22 08:07 Dose: 1 mg Amphetamine/Dextroamphetamine (Dextroamphetamine/Amphetamine Xr 10 Mg Cap.Er.24h) 30 mg PO DAILY LACEY Last Admin: 04/16/22 08:07 Dose: 30 mg Benzocaine (Throat Lozenge, Medicated Lozenge) 1 lozenge MUCOUS MEM Q2H PRN PRN Reason: Sore Throat Last Admin: 04/03/22 10:20 Dose: 1 lozenge Bisacodyl (Bisacodyl 5 Mg Tablet.Dr) 10 mg PO DAILY PRN PRN Reason: Constipation Last Admin: 03/29/22 10:36 Dose: 10 mg Guaifenesin/Dextromethorphan (Guaifenesin Dm 600/30 1 Tab Tab.Er.12h) 1 tab PO BID PRN PRN Reason: cough, congestion Last Admin: 04/13/22 09:11 Dose: 1 tab Hydroxyzine HCl (Hydroxyzine Hcl 25 Mg Tablet) 25 mg PO Q6H PRN PRN Reason: Anxiety Last Admin: 03/28/22 17:05 Dose: 25 mg [place] Carbonate ([place] Carbonate Er 300 Mg Tablet.Er) 600 mg PO BEDTIME [facility] Last Admin: 04/15/22 22:28 Dose: 600 mg [place] Carbonate ([place] Carbonate Er 450 Mg Tablet.Er) 450 mg PO DAILY [facility] Last Admin: 04/16/22 08:07 Dose: 450 mg Loperamide HCl (Loperamide Hcl 2 Mg Capsule) 4 mg PO Q4H PRN PRN Reason: Diarrhea Last Admin: 04/06/22 16:14 Dose: 4 mg Magnesium Hydroxide (Milk Of Magnesia 30 Ml Oral.Susp) 30 ml PO DAILY PRN PRN Reason: Constipation Last Admin: 03/25/22 11:00 Dose: 30 ml Melatonin (Melatonin 3 Mg Tablet) 12 mg PO BEDTIME [facility] Last Admin: 04/15/22 22:27 Dose: 12 mg Multi-Ingred Medicated Throat [place] (Throat [place], Medicated 177 Ml Bottle) 1 spray MUCOUS MEM Q2H PRN PRN Reason: Sore Throat Last Admin: 04/08/22 08:25 Dose: 1 spray Nicotine (Nicotine 14 Mg Patch.Td24) 14 mg TRANSDERMA DAILY PRN PRN Reason: nicotine craving Nicotine Polacrilex (Nicotine Polacrilex 2 Mg Gum) 2 mg BUCCAL Q2H PRN PRN Reason: nicotine withdrawal Last Admin: 03/29/22 09:32 Dose: 2 mg Patient Own Medication ( Desvenlafaxine 100 Mg Er Tablet) 1 tab PO DAILY [facility] Last Admin: 04/16/22 08:06 Dose: 1 tab Olanzapine (Olanzapine 10 Mg Tablet) 10 mg PO BID PRN PRN Reason: impulsivity, SI, self-harm, ag Last Admin: 04/13/22 19:51 Dose: 10 mg Olanzapine (Olanzapine 5 Mg Tablet) 5 mg PO BID PRN PRN Reason: impulsivity, self harm , si, Last Admin: 04/15/22 13:27 Dose: 5 mg Prazosin HCl 10 mg/ Prazosin (HCl 4 mg) 14 mg PO BEDTIME [facility] Last Admin: 04/15/22 22:28 Dose: 14 mg Thiamine HCl (Thiamine Hcl 100 Mg Tablet) 200 mg PO DAILY [facility] Last Admin: 04/16/22 08:07 Dose: 200 mg Trazodone HCl (Trazodone Hcl 100 Mg Tablet) 300 mg PO BEDTIME [facility] Last Admin: 04/15/22 22:26 Dose: 300 mg Vitamin D (Cholecalciferol (Vitamin D3) 25 Mcg Tablet) 50 mcg PO DAILY [facility]ACE[facility] Last Admin: 04/16/22 08:07 Dose: 50 mcg Allergies Allergies Allergy/AdvReac Type Severity Reaction Status Date / Time Sulfa (Sulfonamide Allergy Unknown HIVES Verified 03/15/21 14:13 Antibiotics) [SULFA (SULFONAMIDE ANTIBIOTICS)] sulfamethoxazole Allergy Unknown HIVES Verified 03/15/21 14:13 [From BACTRIM] trimethoprim [From BACTRIM] Allergy Unknown HIVES Verified 03/15/21 14:13 oseltamivir [From Tamiflu] AdvReac Sensation Verified 09/29/21 11:20 of bugs crawling on skin. Assessment & Plan Assessment & Plan (1) PTSD (post-traumatic stress disorder): Status: Acute Code(s): F43.10 - Post-traumatic stress disorder, unspecified (2) MDD (major depressive disorder), recurrent severe, without psychosis: Status: Acute Code(s): F33.2 - Major depressive disorder, recurrent severe without psychotic features (3) Suicidal ideation: Status: Acute Code(s): R45.851 - Suicidal ideations Plan 36 yo non binary, prefers they/them pronouns with SI. 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 Several serious precipitants-holidays, anniversary of the loss of a child they planned to co-parent and therapist moved from the area at the end of Feb 2022 however pt will be continuing via [employer]. Plan: Message left for Nathen Mesa. Pt wanting to change Pristiq, possibly re-start Olanzapine. We would like his input if possible. Pristiq ordered from [employer] as it is not on formulary Collateral contact as needed Assist pt to re-establish safety. 03/24/22: Continue current plan. 03/25/22: Olanzapine prn 03/26/22: Lactulose for constipation Safety discussion with pt. Increase in anxiety after her ER experience. Working with team to manage her impulsivity. 03/27: Continue current regimen and plans with increase of trazodone to 300 mg 03/28: Continue current plans and regimen. 03/29: Continue current regimen and plans. A 3 day notice has been placed 03/30/22: On 03/31, Increase Adderall to 30 mg XR q a.m. 04/01/22: Increase Melatonin to 11 mg HS. 04/02/22: Continue current regime Mucinex DM prn 04/03/22: Azithromycin 500 mg today, 250 mg x 4 days thereafter 04/04/22: Continue current regime 04/05/22: IModium prn for diarrhea Monitor for increasing risk of self harm 04/06/22: Resolving physical sx of COVID Increasing emotional sx, feeling tired, worn, drained. 04/07/22: Discontinue Ibuprofen BMP, Li, TSH 04/08/22 Olanzapine 5 mg prn to alternate with 10 mg for SIBS, SI, impulsivity 04/08 continue tx. 04/09 continue tx. 04/10 continue tx. 04/11 continue tx. -monitor for sinus discomfort -check lithium level tomorrow morning -remain on one-to-one 04/12 pt would like to keep lithium level at 0.7, currently at 1.0, will decrease morning dose to 450mg po daily and keep 600mg po qhs. continue one to one. 04/13 continue tx. 04/14 continue tx, re check lithium level next . 04/15 ocontinue tx. 04/16 add benadryl 50mg po qhs one time but if helpful may want to schedule. Reason for contiued inpatient stay Substantial Risk for: harm to self Time Spent With Patient Time: Total time managing care of this patient today ____ minutes.
[2022-04-16 18:00] VITALS: BP 128/68; PULSE 82; RESP 16; TEMP 36.8; O2SAT 98
[2022-04-16] MEDS: OLANZapine 10 MG TABLET PO (19:26)
[2022-04-16] MEDS: Melatonin 3 MG TABLET 12 MG PO (20:08)
[2022-04-16] MEDS: PRAZOSIN HCL 14 MG PO (20:08)
[2022-04-16] MEDS: Lithium Carbonate ER 300 MG TABLET.ER 600 MG PO (20:08)
[2022-04-16] MEDS: diphenhydrAMINE HCL 25 MG CAPSULE 50 MG PO (20:10)
[2022-04-16] MEDS: traZODone HCL 100 MG TABLET 300 MG PO (20:10)
[2022-04-17] MEDS: ALPRAZolam 0.5 MG TABLET 1 MG PO ×3 (09:22→21:03)
[2022-04-17] MEDS: Lithium Carbonate ER 450 MG TABLET.ER PO (09:22)
[2022-04-17] MEDS: Cholecalciferol (Vitamin D3) 25 MCG TABLET 50 MCG PO (09:22)
[2022-04-17] MEDS: Thiamine HCL 100 MG TABLET 200 MG PO (09:22)
[2022-04-17] MEDS: Dextroamphetamine/Amphetamine XR 10 MG CAP.ER.24H 30 MG PO (09:22)
[2022-04-17 09:27] VITALS: BP 120/71; PULSE 113; RESP 18; TEMP 36.4; O2SAT 97
--- NOTE | 2022-04-17 10:39 | HO.PSYCHPN ---
Subjective Subjective Date of Service: 04/17/22 Reason For Visit: Depression SI PTSD Interim History: Still struggling with urges to self-harm however patient said she slept better last night that she has a long time and attributes it to Benadryl. Asks for Benadryl to be schedule p.r.n. for insomnia which quality analyst/technical writer agrees Mental Status Exam Mental Status Exam Narrative: NAD. Normally ambulation. Motor activity calm. Patient Appearance: Well Grooomed and Appropriate Patient Orientation: Person, Place, Time and Situation Level of Consciousness: Appropriate Patient Behavior: Appropriate, Cooperative and Good Eye Contact Mood Description: Calm Affect Description: Appropriate and Constricted Patient Cognition Impaired: No Ability to Follow Directions: Excellent Speech Pattern: Clear, Appropriate and Coherent Memory Description: Intact Hallucinations: None Delusions: Not Present Thought Process: Intact Thought Content: positive for Goal Oriented, positive for Linear, positive for Suicidal Ideation (some intermittent SI but more so urges/thoughts to self harm) and positive for Homicidal Ideation (None) Judgement: Poor Judgement and Insight: impaired Diagnostics Vital Signs (24Hr): Vital Signs - 24 hr 04/16/22 18:00 04/17/22 09:27 Temperature 98.2 F 97.6 F Pulse Rate 82 113 H Respiratory Rate 16 18 Blood Pressure 128/68 120/71 Pulse Oximetry 98 97 Oxygen Delivery Method Room Air Room Air BMI result Body Mass Index 40.3 Labs 03/21/22 04:36 04/08/22 08:38 Medications Medications Current Medications Acetaminophen (Acetaminophen 325 Mg Tablet) 650 mg PO Q6H PRN PRN Reason: Headache/Pain Mild Scale (1-3) Last Admin: 04/03/22 16:34 Dose: 650 mg Al Hydroxide/Mg Hydroxide (Magnesium Hydrox/Alum Hydrox 30 Ml Oral.Susp) 30 ml PO Q6H PRN PRN Reason: Heartburn/Nausea Alprazolam (Alprazolam 0.5 Mg Tablet) 1 mg PO QID PRN PRN Reason: Anxiety Last Admin: 04/17/22 09:22 Dose: 1 mg Amphetamine/Dextroamphetamine (Dextroamphetamine/Amphetamine Xr 10 Mg Cap.Er.24h) 30 mg PO DAILY LACEY Last Admin: 04/17/22 09:22 Dose: 30 mg Benzocaine (Throat Lozenge, Medicated Lozenge) 1 lozenge MUCOUS MEM Q2H PRN PRN Reason: Sore Throat Last Admin: 04/03/22 10:20 Dose: 1 lozenge Bisacodyl (Bisacodyl 5 Mg Tablet.Dr) 10 mg PO DAILY PRN PRN Reason: Constipation Last Admin: 03/29/22 10:36 Dose: 10 mg Guaifenesin/Dextromethorphan (Guaifenesin Dm 600/30 1 Tab Tab.Er.12h) 1 tab PO BID PRN PRN Reason: cough, congestion Last Admin: 04/13/22 09:11 Dose: 1 tab Hydroxyzine HCl (Hydroxyzine Hcl 25 Mg Tablet) 25 mg PO Q6H PRN PRN Reason: Anxiety Last Admin: 03/28/22 17:05 Dose: 25 mg [place] Carbonate ([place] Carbonate Er 300 Mg Tablet.Er) 600 mg PO BEDTIME [facility]ACEY Last Admin: 04/16/22 20:08 Dose: 600 mg [place] Carbonate ([place] Carbonate Er 450 Mg Tablet.Er) 450 mg PO DAILY [facility]ACEY Last Admin: 04/17/22 09:22 Dose: 450 mg Loperamide HCl (Loperamide Hcl 2 Mg Capsule) 4 mg PO Q4H PRN PRN Reason: Diarrhea Last Admin: 04/06/22 16:14 Dose: 4 mg Magnesium Hydroxide (Milk Of Magnesia 30 Ml Oral.Susp) 30 ml PO DAILY PRN PRN Reason: Constipation Last Admin: 03/25/22 11:00 Dose: 30 ml Melatonin (Melatonin 3 Mg Tablet) 12 mg PO BEDTIME [facility]ACE[facility] Last Admin: 04/16/22 20:08 Dose: 12 mg Multi-Ingred Medicated Throat [place] (Throat [place], Medicated 177 Ml Bottle) 1 spray MUCOUS MEM Q2H PRN PRN Reason: Sore Throat Last Admin: 04/08/22 08:25 Dose: 1 spray Nicotine (Nicotine 14 Mg Patch.Td24) 14 mg TRANSDERMA DAILY PRN PRN Reason: nicotine craving Nicotine Polacrilex (Nicotine Polacrilex 2 Mg Gum) 2 mg BUCCAL Q2H PRN PRN Reason: nicotine withdrawal Last Admin: 03/29/22 09:32 Dose: 2 mg Patient Own Medication ( Desvenlafaxine 100 Mg Er Tablet) 1 tab PO DAILY LACEY Last Admin: 04/17/22 09:22 Dose: 1 tab Olanzapine (Olanzapine 10 Mg Tablet) 10 mg PO BID PRN PRN Reason: impulsivity, SI, self-harm, ag Last Admin: 04/16/22 19:26 Dose: 10 mg Olanzapine (Olanzapine 5 Mg Tablet) 5 mg PO BID PRN PRN Reason: impulsivity, self harm , si, Last Admin: 04/15/22 13:27 Dose: 5 mg Prazosin HCl 10 mg/ Prazosin (HCl 4 mg) 14 mg PO BEDTIME [facility] Last Admin: 04/16/22 20:08 Dose: 14 mg Thiamine HCl (Thiamine Hcl 100 Mg Tablet) 200 mg PO DAILY [facility] Last Admin: 04/17/22 09:22 Dose: 200 mg Trazodone HCl (Trazodone Hcl 100 Mg Tablet) 300 mg PO BEDTIME [facility] Last Admin: 04/16/22 20:10 Dose: 300 mg Vitamin D (Cholecalciferol (Vitamin D3) 25 Mcg Tablet) 50 mcg PO DAILY [facility] Last Admin: 04/17/22 09:22 Dose: 50 mcg Allergies Allergies Allergy/AdvReac Type Severity Reaction Status Date / Time Sulfa (Sulfonamide Allergy Unknown HIVES Verified 03/15/21 14:13 Antibiotics) [SULFA (SULFONAMIDE ANTIBIOTICS)] sulfamethoxazole Allergy Unknown HIVES Verified 03/15/21 14:13 [From BACTRIM] trimethoprim [From BACTRIM] Allergy Unknown HIVES Verified 03/15/21 14:13 oseltamivir [From Tamiflu] AdvReac Sensation Verified 09/29/21 11:20 of bugs crawling on skin. Assessment & Plan Assessment & Plan (1) PTSD (post-traumatic stress disorder): Status: Acute Code(s): F43.10 - Post-traumatic stress disorder, unspecified (2) MDD (major depressive disorder), recurrent severe, without psychosis: Status: Acute Code(s): F33.2 - Major depressive disorder, recurrent severe without psychotic features (3) Suicidal ideation: Status: Acute Code(s): R45.851 - Suicidal ideations Plan 36 yo non binary, prefers they/them pronouns with SI. 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 Several serious precipitants-holidays, anniversary of the loss of a child they planned to co-parent and therapist moved from the area at the end of Feb 2022 however pt will be continuing via [employer]. Plan: Message left for Nathen Mesa. Pt wanting to change Pristiq, possibly re-start Olanzapine. We would like his input if possible. Pristiq ordered from [employer] as it is not on formulary Collateral contact as needed Assist pt to re-establish safety. 03/24/22: Continue current plan. 03/25/22: Olanzapine prn 03/26/22: Lactulose for constipation Safety discussion with pt. Increase in anxiety after her ER experience. Working with team to manage her impulsivity. 03/27: Continue current regimen and plans with increase of trazodone to 300 mg 03/28: Continue current plans and regimen. 03/29: Continue current regimen and plans. A 3 day notice has been placed 03/30/22: On 03/31, Increase Adderall to 30 mg XR q a.m. 04/01/22: Increase Melatonin to 11 mg HS. 04/02/22: Continue current regime Mucinex DM prn 04/03/22: Azithromycin 500 mg today, 250 mg x 4 days thereafter 04/04/22: Continue current regime 04/05/22: IModium prn for diarrhea Monitor for increasing risk of self harm 04/06/22: Resolving physical sx of COVID Increasing emotional sx, feeling tired, worn, drained. 04/07/22: Discontinue Ibuprofen BMP, Li, TSH 04/08/22 Olanzapine 5 mg prn to alternate with 10 mg for SIBS, SI, impulsivity 04/08 continue tx. 04/09 continue tx. 04/10 continue tx. 04/11 continue tx. -monitor for sinus discomfort -check lithium level tomorrow morning -remain on one-to-one 04/12 pt would like to keep lithium level at 0.7, currently at 1.0, will decrease morning dose to 450mg po daily and keep 600mg po qhs. continue one to one. 04/13 continue tx. 04/14 continue tx, re check lithium level next . 04/15 ocontinue tx. 04/16 add benadryl 50mg po qhs one time but if helpful may want to schedule. 04/17 continue current treatment regimen with Benadryl q.h.s. ?Discussed case with nursing; met with patient; reviewed vitals and mildly tachycardic but otherwise WNL Patient educated on: diagnosis and medication risk/benefits Informed Consent: understands Reason for contiued inpatient stay Substantial Risk for: harm to self Time Spent With Patient Time: Total time managing care of this patient today ____ minutes.
[2022-04-17] MEDS: OLANZapine 5 MG TABLET PO (17:13)
[2022-04-17 18:00] VITALS: BP 160/91; PULSE 86; RESP 18; TEMP 36.3; O2SAT 97
[2022-04-17] MEDS: PRAZOSIN HCL 14 MG PO (21:03)
[2022-04-17] MEDS: diphenhydrAMINE HCL 25 MG CAPSULE 50 MG PO (21:03)
[2022-04-17] MEDS: traZODone HCL 100 MG TABLET 300 MG PO (21:04)
[2022-04-17] MEDS: Lithium Carbonate ER 300 MG TABLET.ER 600 MG PO (21:04)
[2022-04-17] MEDS: Melatonin 3 MG TABLET 12 MG PO (21:04)
[2022-04-18 07:45] VITALS: BP 140/71; PULSE 87; RESP 16; TEMP 36.2; O2SAT 96
[2022-04-18] MEDS: Dextroamphetamine/Amphetamine XR 10 MG CAP.ER.24H 30 MG PO (08:14)
[2022-04-18] MEDS: Thiamine HCL 100 MG TABLET 200 MG PO (08:14)
[2022-04-18] MEDS: Lithium Carbonate ER 450 MG TABLET.ER PO (08:15)
[2022-04-18] MEDS: Cholecalciferol (Vitamin D3) 25 MCG TABLET 50 MCG PO (08:15)
[2022-04-18] MEDS: ALPRAZolam 0.5 MG TABLET 1 MG PO ×3 (08:35→22:13)
[2022-04-18] MEDS: OLANZapine 5 MG TABLET PO (12:44)
[2022-04-18] MEDS: OLANZapine 10 MG TABLET PO (14:33)
--- NOTE | 2022-04-18 14:43 | HO.PSYCHPN ---
Subjective Subjective Date of Service: 04/18/22 Reason For Visit: Depression SI PTSD Interim History: Patient continues to struggle with suicidal ideation. Patient discussed her history in more detail in shares that ever since her child was born stillborn little over year ago she has struggled to stay out of the hospital. Patient says that she is okay for 6 months but when anniversary is come, she starts to decompensate and end up in the hospital. She is wondering account underwriter's opinion on treatment for this. Also discussed was patient's medication trials. Patient agrees that she is able to remain stable for much of the year; account underwriter reiterated since there is somewhat a predictable pattern, that leading up to triggering times, patient can perhaps increase her therapy sessions prophylactically. Also discussed changing the goal from never being admitted to the hospital to being admitted less often or needing to stay for less days. Patient felt that this was a more obtainable goal. Later in the day patient disclosed that she is having suicidal ideation with a plan but will not say what. Discussed case with nursing. Patient will remain on one-to-one and sitter knows of increased ideation; nurse will pass this along to subsequent shifts; discussed that patient remains needing to be observed at all times including when toileting or in the shower Mental Status Exam Mental Status Exam Narrative: NAD. Normally ambulation. Motor activity calm. Patient Appearance: Well Grooomed and Appropriate Patient Orientation: Person, Place, Time and Situation Level of Consciousness: Appropriate Patient Behavior: Appropriate, Cooperative and Good Eye Contact Mood Description: Calm Affect Description: Appropriate and Constricted Patient Cognition Impaired: No Ability to Follow Directions: Excellent Speech Pattern: Clear, Appropriate and Coherent Memory Description: Intact Hallucinations: None Delusions: Not Present Thought Process: Intact Thought Content: positive for Goal Oriented, positive for Linear, positive for Suicidal Ideation (intermittent SI) and positive for Homicidal Ideation (None) Judgement: Poor Judgement and Insight: impaired Diagnostics Vital Signs (24Hr): Vital Signs - 24 hr 04/17/22 18:00 04/18/22 07:45 Temperature 97.3 F 97.2 F Pulse Rate 86 87 Respiratory Rate 18 16 Blood Pressure 160/91 H 140/71 H Pulse Oximetry 97 96 Oxygen Delivery Method Room Air Room Air BMI result Body Mass Index 40.3 Labs 03/21/22 04:36 04/08/22 08:38 Medications Medications Current Medications Acetaminophen (Acetaminophen 325 Mg Tablet) 650 mg PO Q6H PRN PRN Reason: Headache/Pain Mild Scale (1-3) Last Admin: 04/03/22 16:34 Dose: 650 mg Al Hydroxide/Mg Hydroxide (Magnesium Hydrox/Alum Hydrox 30 Ml Oral.Susp) 30 ml PO Q6H PRN PRN Reason: Heartburn/Nausea Alprazolam (Alprazolam 0.5 Mg Tablet) 1 mg PO QID PRN PRN Reason: Anxiety Last Admin: 04/18/22 14:34 Dose: 1 mg Amphetamine/Dextroamphetamine (Dextroamphetamine/Amphetamine Xr 10 Mg Cap.Er.24h) 30 mg PO DAILY [facility]ACEY Last Admin: 04/18/22 08:14 Dose: 30 mg Benzocaine (Throat Lozenge, Medicated Lozenge) 1 lozenge MUCOUS MEM Q2H PRN PRN Reason: Sore Throat Last Admin: 04/03/22 10:20 Dose: 1 lozenge Bisacodyl (Bisacodyl 5 Mg Tablet.Dr) 10 mg PO DAILY PRN PRN Reason: Constipation Last Admin: 03/29/22 10:36 Dose: 10 mg Diphenhydramine HCl (Diphenhydramine Hcl 25 Mg Capsule) 50 mg PO BEDTIME PRN PRN Reason: Insomnia Last Admin: 04/17/22 21:03 Dose: 50 mg Guaifenesin/Dextromethorphan (Guaifenesin Dm 600/30 1 Tab Tab.Er.12h) 1 tab PO BID PRN PRN Reason: cough, congestion Last Admin: 04/13/22 09:11 Dose: 1 tab Hydroxyzine HCl (Hydroxyzine Hcl 25 Mg Tablet) 25 mg PO Q6H PRN PRN Reason: Anxiety Last Admin: 03/28/22 17:05 Dose: 25 mg [place] Carbonate ([place] Carbonate Er 300 Mg Tablet.Er) 600 mg PO BEDTIME [facility]ACE[facility] Last Admin: 04/17/22 21:04 Dose: 600 mg [place] Carbonate ([place] Carbonate Er 450 Mg Tablet.Er) 450 mg PO DAILY [facility]ACEY Last Admin: 04/18/22 08:15 Dose: 450 mg Loperamide HCl (Loperamide Hcl 2 Mg Capsule) 4 mg PO Q4H PRN PRN Reason: Diarrhea Last Admin: 04/06/22 16:14 Dose: 4 mg Magnesium Hydroxide (Milk Of Magnesia 30 Ml Oral.Susp) 30 ml PO DAILY PRN PRN Reason: Constipation Last Admin: 03/25/22 11:00 Dose: 30 ml Melatonin (Melatonin 3 Mg Tablet) 12 mg PO BEDTIME [facility] Last Admin: 04/17/22 21:04 Dose: 12 mg Multi-Ingred Medicated Throat [place] (Throat [place], Medicated 177 Ml Bottle) 1 spray MUCOUS MEM Q2H PRN PRN Reason: Sore Throat Last Admin: 04/08/22 08:25 Dose: 1 spray Nicotine (Nicotine 14 Mg Patch.Td24) 14 mg TRANSDERMA DAILY PRN PRN Reason: nicotine craving Nicotine Polacrilex (Nicotine Polacrilex 2 Mg Gum) 2 mg BUCCAL Q2H PRN PRN Reason: nicotine withdrawal Last Admin: 03/29/22 09:32 Dose: 2 mg Patient Own Medication ( Desvenlafaxine 100 Mg Er Tablet) 1 tab PO DAILY [facility] Last Admin: 04/18/22 08:35 Dose: 1 tab Olanzapine (Olanzapine 10 Mg Tablet) 10 mg PO BID PRN PRN Reason: impulsivity, SI, self-harm, ag Last Admin: 04/18/22 14:33 Dose: 10 mg Olanzapine (Olanzapine 5 Mg Tablet) 5 mg PO BID PRN PRN Reason: impulsivity, self harm , si, Last Admin: 04/18/22 12:44 Dose: 5 mg Prazosin HCl 10 mg/ Prazosin (HCl 4 mg) 14 mg PO BEDTIME [facility] Last Admin: 04/17/22 21:03 Dose: 14 mg Thiamine HCl (Thiamine Hcl 100 Mg Tablet) 200 mg PO DAILY [facility] Last Admin: 04/18/22 08:14 Dose: 200 mg Trazodone HCl (Trazodone Hcl 100 Mg Tablet) 300 mg PO BEDTIME [facility] Last Admin: 04/17/22 21:04 Dose: 300 mg Vitamin D (Cholecalciferol (Vitamin D3) 25 Mcg Tablet) 50 mcg PO DAILY [facility] Last Admin: 04/18/22 08:15 Dose: 50 mcg Allergies Allergies Allergy/AdvReac Type Severity Reaction Status Date / Time Sulfa (Sulfonamide Allergy Unknown HIVES Verified 03/15/21 14:13 Antibiotics) [SULFA (SULFONAMIDE ANTIBIOTICS)] sulfamethoxazole Allergy Unknown HIVES Verified 03/15/21 14:13 [From BACTRIM] trimethoprim [From BACTRIM] Allergy Unknown HIVES Verified 03/15/21 14:13 oseltamivir [From Tamiflu] AdvReac Sensation Verified 09/29/21 11:20 of bugs crawling on skin. Assessment & Plan Assessment & Plan (1) PTSD (post-traumatic stress disorder): Status: Acute Code(s): F43.10 - Post-traumatic stress disorder, unspecified (2) MDD (major depressive disorder), recurrent severe, without psychosis: Status: Acute Code(s): F33.2 - Major depressive disorder, recurrent severe without psychotic features (3) Suicidal ideation: Status: Acute Code(s): R45.851 - Suicidal ideations Plan 36 yo non binary, prefers they/them pronouns with SI. 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 Several serious precipitants-holidays, anniversary of the loss of a child they planned to co-parent and therapist moved from the area at the end of Feb 2022 however pt will be continuing via [employer]. Plan: Message left for Nathen Mesa. Pt wanting to change Pristiq, possibly re-start Olanzapine. We would like his input if possible. Pristiq ordered from [employer] as it is not on formulary Collateral contact as needed Assist pt to re-establish safety. 03/24/22: Continue current plan. 03/25/22: Olanzapine prn 03/26/22: Lactulose for constipation Safety discussion with pt. Increase in anxiety after her ER experience. Working with team to manage her impulsivity. 03/27: Continue current regimen and plans with increase of trazodone to 300 mg 03/28: Continue current plans and regimen. 03/29: Continue current regimen and plans. A 3 day notice has been placed 03/30/22: On 03/31, Increase Adderall to 30 mg XR q a.m. 04/01/22: Increase Melatonin to 11 mg HS. 04/02/22: Continue current regime Mucinex DM prn 04/03/22: Azithromycin 500 mg today, 250 mg x 4 days thereafter 04/04/22: Continue current regime 04/05/22: IModium prn for diarrhea Monitor for increasing risk of self harm 04/06/22: Resolving physical sx of COVID Increasing emotional sx, feeling tired, worn, drained. 04/07/22: Discontinue Ibuprofen BMP, Li, TSH 04/08/22 Olanzapine 5 mg prn to alternate with 10 mg for SIBS, SI, impulsivity 04/08 continue tx. 04/09 continue tx. 04/10 continue tx. 04/11 continue tx. -monitor for sinus discomfort -check lithium level tomorrow morning -remain on one-to-one 04/12 pt would like to keep lithium level at 0.7, currently at 1.0, will decrease morning dose to 450mg po daily and keep 600mg po qhs. continue one to one. 04/13 continue tx. 04/14 continue tx, re check lithium level next . 04/15 ocontinue tx. 04/16 add benadryl 50mg po qhs one time but if helpful may want to schedule. 04/17 continue current treatment regimen with Benadryl q.h.s. ?Discussed case with nursing; met with patient; reviewed vitals and mildly tachycardic but otherwise WNL 04/18 Discussed case with nursing; met with patient; reviewed vitals and mildly hypertensive. Remain on one-to-one as patient reports active SI Patient educated on: diagnosis, medication risk/benefits and therapeutic strategies Informed Consent: understands Reason for contiued inpatient stay Substantial Risk for: harm to self Time Spent With Patient Time: Total time managing care of this patient today ____ minutes.
[2022-04-18 18:00] VITALS: BP 131/87; PULSE 95; RESP 18; O2SAT 97
[2022-04-18] MEDS: Melatonin 3 MG TABLET 12 MG PO (22:13)
[2022-04-18] MEDS: Lithium Carbonate ER 300 MG TABLET.ER 600 MG PO (22:13)
[2022-04-18] MEDS: PRAZOSIN HCL 14 MG PO (22:13)
[2022-04-18] MEDS: diphenhydrAMINE HCL 25 MG CAPSULE 50 MG PO (22:13)
[2022-04-18] MEDS: traZODone HCL 100 MG TABLET 300 MG PO (22:14)
[2022-04-19 06:00] VITALS: BP 117/76; PULSE 80; RESP 18
[2022-04-19] MEDS: ALPRAZolam 0.5 MG TABLET 1 MG PO ×3 (08:38→18:23)
[2022-04-19] MEDS: Lithium Carbonate ER 450 MG TABLET.ER PO (08:38)
[2022-04-19] MEDS: Dextroamphetamine/Amphetamine XR 10 MG CAP.ER.24H 30 MG PO (08:38)
[2022-04-19] MEDS: Cholecalciferol (Vitamin D3) 25 MCG TABLET 50 MCG PO (08:39)
[2022-04-19] MEDS: Thiamine HCL 100 MG TABLET 200 MG PO (08:39)
[2022-04-19] MEDS: bisacodyL 5 MG TABLET.DR 10 MG PO (13:13)
--- NOTE | 2022-04-19 18:15 | P.PNPSI_ITS ---
Subjective Subjective Date of Service: 04/19/22 Reason For Visit: Depression SI PTSD Subjective Notes: Conditional Voluntary Healthcare Proxy: No Guardianship: No Medical Problems Affecting Mental Status: No Interim History: Pt remains with SI and active plan. One to one in place. Upsetting visit over the weekend with mother who has planned Circle celebration in 2 weeks, demanding pt be discharged to attend. Discussed. COVID sx have subsided however, pt reports brain fog sx intermittently, fatigue, dry cough. Recently Benadryl was added and this has helped sleep and congestion she reports. Li level -dosage had been decreased 450/600, pt would like to be considered to return to previous dosages.. Pt ready to return to Adderall 10 mg IR afternoon dose which we will trial Medication Compliance: Yes Side effects from medications: No Attending Groups: Intermittent Review of Systems Acute medical concerns: No Medical Review of Systems: unchanged Mental Status Exam Mental Status Exam Patient Appearance: Appropriate Patient Orientation: Person, Place, Time and Situation Level of Consciousness: Alert Patient Behavior: Appropriate, Talkative, Cooperative and Good Eye Contact Mood Description: Depressed Affect Description: Flat Patient Cognition Impaired: No Ability to Follow Directions: Good Speech Pattern: Spontaneous Speech Memory Description: Intact Hallucinations: None Delusions: Not Present Perceptual Disturbances: Depersonalization and Derealization Thought Process: Distracted and Rumination Thought Content: positive for Perseveration and positive for Suicidal Ideation Depressive Symptoms: Increased Anxiety, Hopelessness, Feelings of Guilt, Increased Fatigue, Loss of Energy and Difficulty Concentrating Judgement: Fair Diagnostics Vital Signs (24Hr): Vital Signs - 24 hr 04/19/22 06:00 Pulse Rate 80 Respiratory Rate 18 Blood Pressure 117/76 Oxygen Delivery Method Room Air BMI result Body Mass Index 40.3 Labs 03/21/22 04:36 04/08/22 08:38 Medications Medications Current Medications Acetaminophen (Acetaminophen 325 Mg Tablet) 650 mg PO Q6H PRN PRN Reason: Headache/Pain Mild Scale (1-3) Last Admin: 04/03/22 16:34 Dose: 650 mg Al Hydroxide/Mg Hydroxide (Magnesium Hydrox/Alum Hydrox 30 Ml Oral.Susp) 30 ml PO Q6H PRN PRN Reason: Heartburn/Nausea Alprazolam (Alprazolam 0.5 Mg Tablet) 1 mg PO QID PRN PRN Reason: Anxiety Last Admin: 04/19/22 13:14 Dose: 1 mg Amphetamine/Dextroamphetamine (Dextroamphetamine/Amphetamine Xr 10 Mg Cap.Er.24h) 30 mg PO DAILY [facility] Last Admin: 04/19/22 08:38 Dose: 30 mg Benzocaine (Throat Lozenge, Medicated Lozenge) 1 lozenge MUCOUS MEM Q2H PRN PRN Reason: Sore Throat Last Admin: 04/03/22 10:20 Dose: 1 lozenge Bisacodyl (Bisacodyl 5 Mg Tablet.Dr) 10 mg PO DAILY PRN PRN Reason: Constipation Last Admin: 04/19/22 13:13 Dose: 10 mg Diphenhydramine HCl (Diphenhydramine Hcl 25 Mg Capsule) 50 mg PO BEDTIME PRN PRN Reason: Insomnia Last Admin: 04/18/22 22:13 Dose: 50 mg Guaifenesin/Dextromethorphan (Guaifenesin Dm 600/30 1 Tab Tab.Er.12h) 1 tab PO BID PRN PRN Reason: cough, congestion Last Admin: 04/13/22 09:11 Dose: 1 tab Hydroxyzine HCl (Hydroxyzine Hcl 25 Mg Tablet) 25 mg PO Q6H PRN PRN Reason: Anxiety Last Admin: 03/28/22 17:05 Dose: 25 mg [place] Carbonate ([place] Carbonate Er 300 Mg Tablet.Er) 600 mg PO BEDTIME [facility] Last Admin: 04/18/22 22:13 Dose: 600 mg [place] Carbonate ([place] Carbonate Er 450 Mg Tablet.Er) 450 mg PO DAILY [facility] Last Admin: 04/19/22 08:38 Dose: 450 mg Loperamide HCl (Loperamide Hcl 2 Mg Capsule) 4 mg PO Q4H PRN PRN Reason: Diarrhea Last Admin: 04/06/22 16:14 Dose: 4 mg Magnesium Hydroxide (Milk Of Magnesia 30 Ml Oral.Susp) 30 ml PO DAILY PRN PRN Reason: Constipation Last Admin: 03/25/22 11:00 Dose: 30 ml Melatonin (Melatonin 3 Mg Tablet) 12 mg PO BEDTIME [facility] Last Admin: 04/18/22 22:13 Dose: 12 mg Multi-Ingred Medicated Throat [place] (Throat [place], Medicated 177 Ml Bottle) 1 spray MUCOUS MEM Q2H PRN PRN Reason: Sore Throat Last Admin: 04/08/22 08:25 Dose: 1 spray Nicotine (Nicotine 14 Mg Patch.Td24) 14 mg TRANSDERMA DAILY PRN PRN Reason: nicotine craving Nicotine Polacrilex (Nicotine Polacrilex 2 Mg Gum) 2 mg BUCCAL Q2H PRN PRN Reason: nicotine withdrawal Last Admin: 03/29/22 09:32 Dose: 2 mg Patient Own Medication ( Desvenlafaxine 100 Mg Er Tablet) 1 tab PO DAILY [facility] Last Admin: 04/19/22 08:46 Dose: 1 tab Olanzapine (Olanzapine 10 Mg Tablet) 10 mg PO BID PRN PRN Reason: impulsivity, SI, self-harm, ag Last Admin: 04/18/22 14:33 Dose: 10 mg Olanzapine (Olanzapine 5 Mg Tablet) 5 mg PO BID PRN PRN Reason: impulsivity, self harm , si, Last Admin: 04/18/22 12:44 Dose: 5 mg Prazosin HCl 10 mg/ Prazosin (HCl 4 mg) 14 mg PO BEDTIME [facility] Last Admin: 04/18/22 22:13 Dose: 14 mg Thiamine HCl (Thiamine Hcl 100 Mg Tablet) 200 mg PO DAILY [facility] Last Admin: 04/19/22 08:39 Dose: 200 mg Trazodone HCl (Trazodone Hcl 100 Mg Tablet) 300 mg PO BEDTIME [facility] Last Admin: 04/18/22 22:14 Dose: 300 mg Vitamin D (Cholecalciferol (Vitamin D3) 25 Mcg Tablet) 50 mcg PO DAILY [facility] Last Admin: 04/19/22 08:39 Dose: 50 mcg Allergies Allergies Allergy/AdvReac Type Severity Reaction Status Date / Time Sulfa (Sulfonamide Allergy Unknown HIVES Verified 03/15/21 14:13 Antibiotics) [SULFA (SULFONAMIDE ANTIBIOTICS)] sulfamethoxazole Allergy Unknown HIVES Verified 03/15/21 14:13 [From BACTRIM] trimethoprim [From BACTRIM] Allergy Unknown HIVES Verified 03/15/21 14:13 oseltamivir [From Tamiflu] AdvReac Sensation Verified 09/29/21 11:20 of bugs crawling on skin. Assessment & Plan Assessment & Plan (1) PTSD (post-traumatic stress disorder): Status: Acute Code(s): F43.10 - Post-traumatic stress disorder, unspecified (2) MDD (major depressive disorder), recurrent severe, without psychosis: Status: Acute Code(s): F33.2 - Major depressive disorder, recurrent severe without psychotic features (3) Suicidal ideation: Status: Acute Code(s): R45.851 - Suicidal ideations Plan 36 yo non binary, prefers they/them pronouns with SI. 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 Several serious precipitants-holidays, anniversary of the loss of a child they planned to co-parent and therapist moved from the area at the end of Feb 2022 however pt will be continuing via telehelath. Plan: Message left for Nathen Mesa. Pt wanting to change Pristiq, possibly re-start Olanzapine. We would like his input if possible. Pristiq ordered from [facility] as it is not on formulary Collateral contact as needed Assist pt to re-establish safety. 03/24/22: Continue current plan. 03/25/22: Olanzapine prn 03/26/22: Lactulose for constipation Safety discussion with pt. Increase in anxiety after her ER expe rience. Working with team to manage her impulsivity. 03/27: Continue current regimen and plans with increase of trazodone to 300 mg 03/28: Continue current plans and regimen. 03/29: Continue current regimen and plans. A 3 day notice has been placed 03/30/22: On 03/31, Increase Adderall to 30 mg XR q a.m. 04/01/22: Increase Melatonin to 11 mg HS. 04/02/22: Continue current regime Mucinex DM prn 04/03/22: Azithromycin 500 mg today, 250 mg x 4 days thereafter 04/04/22: Continue current regime 04/05/22: IModium prn for diarrhea Monitor for increasing risk of self harm 04/06/22: Resolving physical sx of COVID Increasing emotional sx, feeling tired, worn, drained. 04/07/22: Discontinue Ibuprofen BMP, Li, TSH 04/08/22 Olanzapine 5 mg prn to alternate with 10 mg for SIBS, SI, impulsivity 04/08 continue tx. 04/09 continue tx. 04/10 continue tx. 04/11 continue tx. -monitor for sinus discomfort -check lithium level tomorrow morning -remain on one-to-one 04/12 pt would like to keep lithium level at 0.7, currently at 1.0, will decrease morning dose to 450mg po daily and keep 600mg po qhs. continue one to one. 04/13 continue tx. 04/14 continue tx, re check lithium level next . 04/15 ocontinue tx. 04/16 add benadryl 50mg po qhs one time but if helpful may want to schedule. 04/17 continue current treatment regimen with Benadryl q.h.s. ?Discussed case with nursing; met with patient; reviewed vitals and mildly tachycardic but otherwise WNL 04/18 Discussed case with nursing; met with patient; reviewed vitals and mildly hypertensive. Remain on one-to-one as patient reports active SI 04/19/22- Add Adderall 10 mg IR at 1400 Labs/EKG on 04/22. Patient educated on: medication risk/benefits and therapeutic strategies Informed Consent: understands Reason for contiued inpatient stay Substantial Risk for: harm to self Time Spent With Patient Time: Total time managing care of this patient today ____ minutes. 35
[2022-04-19 19:00] VITALS: BP 140/81; PULSE 96; TEMP 36.1; O2SAT 96
[2022-04-19] MEDS: traZODone HCL 100 MG TABLET 300 MG PO (21:14)
[2022-04-19] MEDS: Magnesium Hydrox/Alum Hydrox 30 ML ORAL.SUSP PO (21:14)
[2022-04-19] MEDS: OLANZapine 10 MG TABLET PO (21:14)
[2022-04-19] MEDS: PRAZOSIN HCL 14 MG PO (21:14)
[2022-04-19] MEDS: Lithium Carbonate ER 300 MG TABLET.ER 600 MG PO (21:14)
[2022-04-19] MEDS: Melatonin 3 MG TABLET 12 MG PO (21:15)
[2022-04-20] MEDS: Thiamine HCL 100 MG TABLET 200 MG PO (08:35)
[2022-04-20] MEDS: Lithium Carbonate ER 450 MG TABLET.ER PO (08:35)
[2022-04-20] MEDS: Cholecalciferol (Vitamin D3) 25 MCG TABLET 50 MCG PO (08:36)
[2022-04-20] MEDS: Dextroamphetamine/Amphetamine XR 10 MG CAP.ER.24H 30 MG PO (08:36)
[2022-04-20] MEDS: ALPRAZolam 0.5 MG TABLET 1 MG PO ×3 (08:43→20:48)
[2022-04-20 09:35] VITALS: BP 121/65; PULSE 104; RESP 16; TEMP 36.2; O2SAT 96
[2022-04-20] MEDS: bisacodyL 5 MG TABLET.DR 10 MG PO (11:13)
--- NOTE | 2022-04-20 12:40 | HO.PSYCHPN ---
Subjective Subjective Date of Service: 04/20/22 Reason For Visit: Depression SI PTSD Subjective Notes: Conditional Voluntary Healthcare Proxy: No Guardianship: No Medical Problems Affecting Mental Status: No Interim History: Reports Adderall 10 mg IR helpful with increase in engagement and decrease in napping. Pristiq refill ordered from [facility] Discussed difficulty with mother's visit over the weekend and her planning holiday celebration, demanding of pt being discharged by this time. Pt discussed that mom has not been involved in her treatment since adolescence and will consider having a family meeting while here. Discussion of benefits and risks of having a meeting. Medication Compliance: Yes Side effects from medications: No Attending Groups: Yes Review of Systems Acute medical concerns: No Medical Review of Systems: unchanged Mental Status Exam Mental Status Exam Patient Appearance: Appropriate Patient Orientation: Person, Place, Time and Situation Level of Consciousness: Alert Patient Behavior: Appropriate, Talkative, Cooperative and Good Eye Contact Mood Description: Depressed Affect Description: Flat Patient Cognition Impaired: No Ability to Follow Directions: Good Speech Pattern: Spontaneous Speech Memory Description: Intact Hallucinations: None Delusions: Not Present Perceptual Disturbances: Depersonalization and Derealization Thought Process: Distracted and Rumination Thought Content: positive for Perseveration and positive for Suicidal Ideation Depressive Symptoms: Increased Anxiety, Hopelessness, Feelings of Guilt, Increased Fatigue, Loss of Energy and Difficulty Concentrating Judgement: Fair Diagnostics Vital Signs (24Hr): Vital Signs - 24 hr 04/19/22 19:00 04/20/22 09:35 Temperature 96.9 F 97.1 F Pulse Rate 96 104 H Respiratory Rate 16 Blood Pressure 140/81 H 121/65 Pulse Oximetry 96 96 Oxygen Delivery Method Room Air Room Air BMI result Body Mass Index 40.3 Labs 03/21/22 04:36 04/08/22 08:38 Medications Medications Current Medications Acetaminophen (Acetaminophen 325 Mg Tablet) 650 mg PO Q6H PRN PRN Reason: Headache/Pain Mild Scale (1-3) Last Admin: 04/03/22 16:34 Dose: 650 mg Al Hydroxide/Mg Hydroxide (Magnesium Hydrox/Alum Hydrox 30 Ml Oral.Susp) 30 ml PO Q6H PRN PRN Reason: Heartburn/Nausea Last Admin: 04/19/22 21:14 Dose: 30 ml Alprazolam (Alprazolam 0.5 Mg Tablet) 1 mg PO QID PRN PRN Reason: Anxiety Last Admin: 04/20/22 08:43 Dose: 1 mg Amphetamine/Dextroamphetamine (Dextroamphetamine/Amphetamine Xr 10 Mg Cap.Er.24h) 30 mg PO DAILY [facility] Last Admin: 04/20/22 08:36 Dose: 30 mg Amphetamine/Dextroamphetamine (Amphetamine Mixed Salts 10 Mg Tablet) 10 mg PO 1400 [facility] Benzocaine (Throat Lozenge, Medicated Lozenge) 1 lozenge MUCOUS MEM Q2H PRN PRN Reason: Sore Throat Last Admin: 04/03/22 10:20 Dose: 1 lozenge Bisacodyl (Bisacodyl 5 Mg Tablet.Dr) 10 mg PO DAILY PRN PRN Reason: Constipation Last Admin: 04/20/22 11:13 Dose: 10 mg Diphenhydramine HCl (Diphenhydramine Hcl 25 Mg Capsule) 50 mg PO BEDTIME PRN PRN Reason: Insomnia Last Admin: 04/18/22 22:13 Dose: 50 mg Guaifenesin/Dextromethorphan (Guaifenesin Dm 600/30 1 Tab Tab.Er.12h) 1 tab PO BID PRN PRN Reason: cough, congestion Last Admin: 04/13/22 09:11 Dose: 1 tab Hydroxyzine HCl (Hydroxyzine Hcl 25 Mg Tablet) 25 mg PO Q6H PRN PRN Reason: Anxiety Last Admin: 03/28/22 17:05 Dose: 25 mg [place] Carbonate ([place] Carbonate Er 300 Mg Tablet.Er) 600 mg PO BEDTIME [facility] Last Admin: 04/19/22 21:14 Dose: 600 mg [place] Carbonate ([place] Carbonate Er 450 Mg Tablet.Er) 450 mg PO DAILY [facility] Last Admin: 04/20/22 08:35 Dose: 450 mg Loperamide HCl (Loperamide Hcl 2 Mg Capsule) 4 mg PO Q4H PRN PRN Reason: Diarrhea Last Admin: 04/06/22 16:14 Dose: 4 mg Magnesium Hydroxide (Milk Of Magnesia 30 Ml Oral.Susp) 30 ml PO DAILY PRN PRN Reason: Constipation Last Admin: 03/25/22 11:00 Dose: 30 ml Melatonin (Melatonin 3 Mg Tablet) 12 mg PO BEDTIME [facility] Last Admin: 04/19/22 21:15 Dose: 12 mg Multi-Ingred Medicated Throat [place] (Throat [place], Medicated 177 Ml Bottle) 1 spray MUCOUS MEM Q2H PRN PRN Reason: Sore Throat Last Admin: 04/08/22 08:25 Dose: 1 spray Nicotine (Nicotine 14 Mg Patch.Td24) 14 mg TRANSDERMA DAILY PRN PRN Reason: nicotine craving Nicotine Polacrilex (Nicotine Polacrilex 2 Mg Gum) 2 mg BUCCAL Q2H PRN PRN Reason: nicotine withdrawal Last Admin: 03/29/22 09:32 Dose: 2 mg Patient Own Medication ( Desvenlafaxine 100 Mg Er Tablet) 1 tab PO DAILY [facility] Last Admin: 04/20/22 08:38 Dose: 1 tab Olanzapine (Olanzapine 10 Mg Tablet) 10 mg PO BID PRN PRN Reason: impulsivity, SI, self-harm, ag Last Admin: 04/19/22 21:14 Dose: 10 mg Olanzapine (Olanzapine 5 Mg Tablet) 5 mg PO BID PRN PRN Reason: impulsivity, self harm , si, Last Admin: 04/18/22 12:44 Dose: 5 mg Prazosin HCl 10 mg/ Prazosin (HCl 4 mg) 14 mg PO BEDTIME [facility] Last Admin: 04/19/22 21:14 Dose: 14 mg Thiamine HCl (Thiamine Hcl 100 Mg Tablet) 200 mg PO DAILY [facility] Last Admin: 04/20/22 08:35 Dose: 200 mg Trazodone HCl (Trazodone Hcl 100 Mg Tablet) 300 mg PO BEDTIME [facility] Last Admin: 04/19/22 21:14 Dose: 300 mg Vitamin D (Cholecalciferol (Vitamin D3) 25 Mcg Tablet) 50 mcg PO DAILY [facility] Last Admin: 04/20/22 08:36 Dose: 50 mcg Allergies Allergies Allergy/AdvReac Type Severity Reaction Status Date / Time Sulfa (Sulfonamide Allergy Unknown HIVES Verified 03/15/21 14:13 Antibiotics) [SULFA (SULFONAMIDE ANTIBIOTICS)] sulfamethoxazole Allergy Unknown HIVES Verified 03/15/21 14:13 [From BACTRIM] trimethoprim [From BACTRIM] Allergy Unknown HIVES Verified 03/15/21 14:13 oseltamivir [From Tamiflu] AdvReac Sensation Verified 09/29/21 11:20 of bugs crawling on skin. Assessment & Plan Assessment & Plan (1) PTSD (post-traumatic stress disorder): Status: Acute Code(s): F43.10 - Post-traumatic stress disorder, unspecified (2) MDD (major depressive disorder), recurrent severe, without psychosis: Status: Acute Code(s): F33.2 - Major depressive disorder, recurrent severe without psychotic features (3) Suicidal ideation: Status: Acute Code(s): R45.851 - Suicidal ideations Plan 36 yo non binary, prefers they/them pronouns with SI. 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 Several serious precipitants-holidays, anniversary of the loss of a child they planned to co-parent and therapist moved from the area at the end of Feb 2022 however pt will be continuing via teleallyveath. Plan: Message left for Nathen Mesa. Pt wanting to change Pristiq, possibly re-start Olanzapine. We would like his input if possible. Pristiq ordered from [facility] as it is not on formulary Collateral contact as needed Assist pt to re-establish safety. 03/24/22: Continue current plan. 03/25/22: Olanzapine prn 03/26/22: Lactulose for constipation Safety discussion with pt. Increase in anxiety after her ER experience. Working with team to manage her impulsivity. 03/27: Continue current regimen and plans with increase of trazodone to 300 mg 03/28: Continue current plans and regimen. 03/29: Continue current regimen and plans. A 3 day notice has been placed 03/30/22: On 03/31, Increase Adderall to 30 mg XR q a.m. 04/01/22: Increase Melatonin to 11 mg HS. 04/02/22: Continue current regime Mucinex DM prn 04/03/22: Azithromycin 500 mg today, 250 mg x 4 days thereafter 04/04/22: Continue current regime 04/05/22: IModium prn for diarrhea Monitor for increasing risk of self harm 04/06/22: Resolving physical sx of COVID Increasing emotional sx, feeling tired, worn, drained. 04/07/22: Discontinue Ibuprofen BMP, Li, TSH 04/08/22 Olanzapine 5 mg prn to alternate with 10 mg for SIBS, SI, impulsivity 04/08 continue tx. 04/09 continue tx. 04/10 continue tx. 04/11 continue tx. -monitor for sinus discomfort -check lithium level tomorrow morning -remain on one-to-one 04/12 pt would like to keep lithium level at 0.7, currently at 1.0, will decrease morning dose to 450mg po daily and keep 600mg po qhs. continue one to one. 04/13 continue tx. 04/14 continue tx, re check lithium level next . 04/15 ocontinue tx. 04/16 add benadryl 50mg po qhs one time but if helpful may want to schedule. 04/17 continue current treatment regimen with Benadryl q.h.s. ?Discussed case with nursing; met with patient; reviewed vitals and mildly tachycardic but otherwise WNL 04/18 Discussed case with nursing; met with patient; reviewed vitals and mildly hypertensive. Remain on one-to-one as patient reports active SI 04/20/22- Continue current plan of care. Pt to consider family meeting with her mom. Patient educated on: therapeutic strategies Informed Consent: understands Reason for contiued inpatient stay Substantial Risk for: harm to self Time Spent With Patient Time: Total time managing care of this patient today _25___ minutes.
[2022-04-20] MEDS: OLANZapine 5 MG TABLET PO (14:10)
[2022-04-20] MEDS: Amphetamine Mixed Salts 10 MG TABLET PO (14:10)
[2022-04-20] MEDS: Magnesium Hydrox/Alum Hydrox 30 ML ORAL.SUSP PO (16:30)
--- NOTE | 2022-04-20 16:33 | PC.NURSE ---
Patient is very anxious about having a meeting with her Mother and prescriber here at the hospital. Patient stated It felt like was stabbed in the stomach when a meeting was mentioned . Patient did say that she feels the meeting with her Mother, as an educational meeting, is probably necessary but feels very anxious none the less. Patient was seen working on a collage with her patient observer. This parts data writer suggested to the patient that she let the prescriber know that she (the patient) may cut the meeting short if feeling overwhelmed. Patient said that was helpful to realize she can have some control over the meeting. Maalox was given for c/o GERD symptoms.
[2022-04-20 18:00] VITALS: BP 120/63; PULSE 75; TEMP 36.6; O2SAT 98
[2022-04-20] MEDS: diphenhydrAMINE HCL 25 MG CAPSULE 50 MG PO (20:50)
[2022-04-20] MEDS: traZODone HCL 100 MG TABLET 300 MG PO (20:52)
[2022-04-20] MEDS: PRAZOSIN HCL 14 MG PO (20:52)
[2022-04-20] MEDS: Lithium Carbonate ER 300 MG TABLET.ER 600 MG PO (20:57)
[2022-04-20] MEDS: Melatonin 3 MG TABLET 12 MG PO (20:57)
[2022-04-21] MEDS: Lithium Carbonate ER 450 MG TABLET.ER PO (08:56)
[2022-04-21] MEDS: Dextroamphetamine/Amphetamine XR 10 MG CAP.ER.24H 30 MG PO (08:56)
[2022-04-21] MEDS: Thiamine HCL 100 MG TABLET 200 MG PO (08:56)
[2022-04-21] MEDS: Cholecalciferol (Vitamin D3) 25 MCG TABLET 50 MCG PO (08:57)
[2022-04-21] MEDS: ALPRAZolam 0.5 MG TABLET 1 MG PO (08:57)
[2022-04-21 09:00] VITALS: BP 120/72; PULSE 100; RESP 18; TEMP 36.3; O2SAT 97
[2022-04-21] MEDS: Amphetamine Mixed Salts 10 MG TABLET PO (13:42)
[2022-04-21] MEDS: OLANZapine 5 MG TABLET PO (14:54)
[2022-04-21 18:00] VITALS: BP 108/71; PULSE 81; TEMP 36.7; O2SAT 97
--- NOTE | 2022-04-21 18:21 | HO.PSYCHPN ---
Subjective Subjective Date of Service: 04/21/22 Reason For Visit: Depression SI PTSD Subjective Notes: Conditional Voluntary Healthcare Proxy: No Guardianship: No Medical Problems Affecting Mental Status: No Interim History: Pt planning with team to attempt a family meeting. Discussed some objectives along with wanting to see a copy of care plan interventions for future ER visits. Continues to report positive effect of newly added afternoon dose of Adderall Medication Compliance: Yes Side effects from medications: No Attending Groups: Yes Review of Systems Acute medical concerns: No Medical Review of Systems: unchanged Mental Status Exam Mental Status Exam Patient Appearance: Appropriate Patient Orientation: Person, Place, Time and Situation Level of Consciousness: Alert Patient Behavior: Appropriate, Talkative, Cooperative and Good Eye Contact Mood Description: Depressed Affect Description: Flat Patient Cognition Impaired: No Ability to Follow Directions: Good Speech Pattern: Spontaneous Speech Memory Description: Intact Hallucinations: None Delusions: Not Present Perceptual Disturbances: Depersonalization and Derealization Thought Process: Distracted and Rumination Thought Content: positive for Perseveration and positive for Suicidal Ideation Depressive Symptoms: Increased Anxiety, Hopelessness, Feelings of Guilt, Increased Fatigue, Loss of Energy and Difficulty Concentrating Judgement: Fair Diagnostics Vital Signs (24Hr): Vital Signs - 24 hr 04/21/22 09:00 Temperature 97.4 F Pulse Rate 100 Respiratory Rate 18 Blood Pressure 120/72 Pulse Oximetry 97 Oxygen Delivery Method Room Air BMI result Body Mass Index 40.3 Labs 03/21/22 04:36 04/08/22 08:38 Medications Medications Current Medications Acetaminophen (Acetaminophen 325 Mg Tablet) 650 mg PO Q6H PRN PRN Reason: Headache/Pain Mild Scale (1-3) Last Admin: 04/03/22 16:34 Dose: 650 mg Al Hydroxide/Mg Hydroxide (Magnesium Hydrox/Alum Hydrox 30 Ml Oral.Susp) 30 ml PO Q6H PRN PRN Reason: Heartburn/Nausea Last Admin: 04/20/22 16:30 Dose: 30 ml Alprazolam (Alprazolam 0.5 Mg Tablet) 1 mg PO QID PRN PRN Reason: Anxiety Last Admin: 04/21/22 08:57 Dose: 1 mg Amphetamine/Dextroamphetamine (Dextroamphetamine/Amphetamine Xr 10 Mg Cap.Er.24h) 30 mg PO DAILY [facility] Last Admin: 04/21/22 08:56 Dose: 30 mg Amphetamine/Dextroamphetamine (Amphetamine Mixed Salts 10 Mg Tablet) 10 mg PO 1400 [facility] Last Admin: 04/21/22 13:42 Dose: 10 mg Benzocaine (Throat Lozenge, Medicated Lozenge) 1 lozenge MUCOUS MEM Q2H PRN PRN Reason: Sore Throat Last Admin: 04/03/22 10:20 Dose: 1 lozenge Bisacodyl (Bisacodyl 5 Mg Tablet.Dr) 10 mg PO DAILY PRN PRN Reason: Constipation Last Admin: 04/20/22 11:13 Dose: 10 mg Diphenhydramine HCl (Diphenhydramine Hcl 25 Mg Capsule) 50 mg PO BEDTIME PRN PRN Reason: Insomnia Last Admin: 04/20/22 20:50 Dose: 50 mg Guaifenesin/Dextromethorphan (Guaifenesin Dm 600/30 1 Tab Tab.Er.12h) 1 tab PO BID PRN PRN Reason: cough, congestion Last Admin: 04/13/22 09:11 Dose: 1 tab Hydroxyzine HCl (Hydroxyzine Hcl 25 Mg Tablet) 25 mg PO Q6H PRN PRN Reason: Anxiety Last Admin: 03/28/22 17:05 Dose: 25 mg [place] Carbonate ([place] Carbonate Er 300 Mg Tablet.Er) 600 mg PO BEDTIME [facility] Last Admin: 04/20/22 20:57 Dose: 600 mg [place] Carbonate ([place] Carbonate Er 450 Mg Tablet.Er) 450 mg PO DAILY [facility] Last Admin: 04/21/22 08:56 Dose: 450 mg Loperamide HCl (Loperamide Hcl 2 Mg Capsule) 4 mg PO Q4H PRN PRN Reason: Diarrhea Last Admin: 04/06/22 16:14 Dose: 4 mg Magnesium Hydroxide (Milk Of Magnesia 30 Ml Oral.Susp) 30 ml PO DAILY PRN PRN Reason: Constipation Last Admin: 03/25/22 11:00 Dose: 30 ml Melatonin (Melatonin 3 Mg Tablet) 12 mg PO BEDTIME [facility] Last Admin: 04/20/22 20:57 Dose: 12 mg Multi-Ingred Medicated Throat [place] (Throat [place], Medicated 177 Ml Bottle) 1 spray MUCOUS MEM Q2H PRN PRN Reason: Sore Throat Last Admin: 04/08/22 08:25 Dose: 1 spray Nicotine (Nicotine 14 Mg Patch.Td24) 14 mg TRANSDERMA DAILY PRN PRN Reason: nicotine craving Nicotine Polacrilex (Nicotine Polacrilex 2 Mg Gum) 2 mg BUCCAL Q2H PRN PRN Reason: nicotine withdrawal Last Admin: 03/29/22 09:32 Dose: 2 mg Patient Own Medication ( Desvenlafaxine 100 Mg Er Tablet) 1 tab PO DAILY [facility] Last Admin: 04/21/22 09:03 Dose: 1 tab Olanzapine (Olanzapine 10 Mg Tablet) 10 mg PO BID PRN PRN Reason: impulsivity, SI, self-harm, ag Last Admin: 04/19/22 21:14 Dose: 10 mg Olanzapine (Olanzapine 5 Mg Tablet) 5 mg PO BID PRN PRN Reason: impulsivity, self harm , si, Last Admin: 04/21/22 14:54 Dose: 5 mg Prazosin HCl 10 mg/ Prazosin (HCl 4 mg) 14 mg PO BEDTIME [facility] Last Admin: 04/20/22 20:52 Dose: 14 mg Thiamine HCl (Thiamine Hcl 100 Mg Tablet) 200 mg PO DAILY [facility] Last Admin: 04/21/22 08:56 Dose: 200 mg Trazodone HCl (Trazodone Hcl 100 Mg Tablet) 300 mg PO BEDTIME [facility] Last Admin: 04/20/22 20:52 Dose: 300 mg Vitamin D (Cholecalciferol (Vitamin D3) 25 Mcg Tablet) 50 mcg PO DAILY [facility] Last Admin: 04/21/22 08:57 Dose: 50 mcg Allergies Allergies Allergy/AdvReac Type Severity Reaction Status Date / Time Sulfa (Sulfonamide Allergy Unknown HIVES Verified 03/15/21 14:13 Antibiotics) [SULFA (SULFONAMIDE ANTIBIOTICS)] sulfamethoxazole Allergy Unknown HIVES Verified 03/15/21 14:13 [From BACTRIM] trimethoprim [From BACTRIM] Allergy Unknown HIVES Verified 03/15/21 14:13 oseltamivir [From Tamiflu] AdvReac Sensation Verified 09/29/21 11:20 of bugs crawling on skin. Assessment & Plan Assessment & Plan (1) PTSD (post-traumatic stress disorder): Status: Acute Code(s): F43.10 - Post-traumatic stress disorder, unspecified (2) MDD (major depressive disorder), recurrent severe, without psychosis: Status: Acute Code(s): F33.2 - Major depressive disorder, recurrent severe without psychotic features (3) Suicidal ideation: Status: Acute Code(s): R45.851 - Suicidal ideations Plan 36 yo non binary, prefers they/them pronouns with SI. 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 Several serious precipitants-holidays, anniversary of the loss of a child they planned to co-parent and therapist moved from the area at the end of Feb 2022 however pt will be continuing via telehelath. Plan: Message left for Nathen Mesa. Pt wanting to change Pristiq, possibly re-start Olanzapine. We would like his input if possible. Pristiq ordered from [facility] as it is not on formulary Collateral contact as needed Assist pt to re-establish safety. 03/24/22: Continue current plan. 03/25/22: Olanzapine prn 03/26/22: Lactulose for constipation Safety discussion with pt. Increase in anxiety after her ER experience. Working with team to manage her impulsivity. 03/27: Continue current regimen and plans with increase of trazodone to 300 mg 03/28: Continue current plans and regimen. 03/29: Continue current regimen and plans. A 3 day notice has been placed 03/30/22: On 03/31, Increase Adderall to 30 mg XR q a.m. 04/01/22: Increase Melatonin to 11 mg HS. 04/02/22: Continue current regime Mucinex DM prn 04/03/22: Azithromycin 500 mg today, 250 mg x 4 days thereafter 04/04/22: Continue current regime 04/05/22: IModium prn for diarrhea Monitor for increasing risk of self harm 04/06/22: Resolving physical sx of COVID Increasing emotional sx, feeling tired, worn, drained. 04/07/22: Discontinue Ibuprofen BMP, Li, TSH 04/08/22 Olanzapine 5 mg prn to alternate with 10 mg for SIBS, SI, impulsivity 04/08 continue tx. 04/09 continue tx. 04/10 continue tx. 04/11 continue tx. -monitor for sinus discomfort -check lithium level tomorrow morning -remain on one-to-one 04/12 pt would like to keep lithium level at 0.7, currently at 1.0, will decrease morning dose to 450mg po daily and keep 600mg po qhs. continue one to one. 04/13 continue tx. 04/14 continue tx, re check lithium level next . 04/15 ocontinue tx. 04/16 add benadryl 50mg po qhs one time but if helpful may want to schedule. 04/17 continue current treatment regimen with Benadryl q.h.s. ?Discussed case with nursing; met with patient; reviewed vitals and mildly tachycardic but otherwise WNL 04/18 Discussed case with nursing; met with patient; reviewed vitals and mildly hypertensive. Remain on one-to-one as patient reports active SI 04/21/22- Continue current plan Possible family meeting 04/23. Patient educated on: therapeutic strategies Informed Consent: understands Reason for contiued inpatient stay Substantial Risk for: harm to self and rapid decompensation Time Spent With Patient Time: Total time managing care of this patient today _20___ minutes.
[2022-04-21] MEDS: diphenhydrAMINE HCL 25 MG CAPSULE 50 MG PO (21:05)
[2022-04-21] MEDS: PRAZOSIN HCL 14 MG PO (21:21)
[2022-04-21] MEDS: Melatonin 3 MG TABLET 12 MG PO (21:22)
[2022-04-21] MEDS: Lithium Carbonate ER 300 MG TABLET.ER 600 MG PO (21:22)
[2022-04-21] MEDS: traZODone HCL 100 MG TABLET 300 MG PO (21:22)
[2022-04-22] MEDS: ALPRAZolam 0.5 MG TABLET 1 MG PO ×2 (06:41→20:50)
[2022-04-22] MEDS: Dextroamphetamine/Amphetamine XR 10 MG CAP.ER.24H 30 MG PO (07:54)
[2022-04-22] MEDS: Cholecalciferol (Vitamin D3) 25 MCG TABLET 50 MCG PO (07:54)
[2022-04-22] MEDS: Thiamine HCL 100 MG TABLET 200 MG PO (07:55)
[2022-04-22] MEDS: Lithium Carbonate ER 450 MG TABLET.ER PO (07:55)
[2022-04-22 08:46] VITALS: BP 124/78; PULSE 130; RESP 18; TEMP 36.3; O2SAT 97
--- NOTE | 2022-04-22 09:00 | ECG_ITS ---
Test Reason : post abx, post covid Blood Pressure : / mmHG Vent. Rate : 083 BPM Atrial Rate : 083 BPM P-R Int : 172 ms QRS Dur : 092 ms QT Int : 386 ms P-R-T Axes : 036 071 049 degrees QTc Int : 453 ms Normal sinus rhythm Normal ECG When compared with ECG of 06-OCT-2021 14:27, No significant change was found Referred By: Orin Johnson Electronically Signed By:LUCIEN CABALLERO MD
[2022-04-22] MEDS: OLANZapine 5 MG TABLET PO ×2 (11:24→20:56)
[2022-04-22] MEDS: Amphetamine Mixed Salts 10 MG TABLET PO (14:13)
--- NOTE | 2022-04-22 17:00 | P.PNPSI_ITS ---
Subjective Subjective Date of Service: 04/22/22 Reason For Visit: Depression SI PTSD Subjective Notes: Conditional Voluntary Healthcare Proxy: No Guardianship: No Medical Problems Affecting Mental Status: No Interim History: Pt talked with team about taking art supplies last week with intent of self harm. She had been with a medical sitter. States this was done last week. She has had the item in her bed for over a week. She volunteered this information and returned the item to team. Discussed current symptoms- it has not been this bad. Discussed interventions, possible med changes Medication Compliance: Yes Side effects from medications: No Attending Groups: Yes Review of Systems Acute medical concerns: No Medical Review of Systems: unchanged Mental Status Exam Mental Status Exam Patient Appearance: Appropriate Patient Orientation: Person, Place, Time and Situation Level of Consciousness: Alert Patient Behavior: Appropriate, Talkative, Cooperative and Good Eye Contact Mood Description: Depressed Affect Description: Flat Patient Cognition Impaired: No Ability to Follow Directions: Good Speech Pattern: Spontaneous Speech Memory Description: Intact Hallucinations: None Delusions: Not Present Perceptual Disturbances: Depersonalization and Derealization Thought Process: Distracted and Rumination Thought Content: positive for Perseveration and positive for Suicidal Ideation Depressive Symptoms: Increased Anxiety, Hopelessness, Feelings of Guilt, Increased Fatigue, Loss of Energy and Difficulty Concentrating Judgement: Fair Diagnostics Vital Signs (24Hr): Vital Signs - 24 hr 04/21/22 18:00 04/22/22 08:46 Temperature 98.1 F 97.4 F Pulse Rate 81 130 H Respiratory Rate 18 Blood Pressure 108/71 124/78 Pulse Oximetry 97 97 Oxygen Delivery Method Room Air Room Air BMI result Body Mass Index 40.3 Labs 03/21/22 04:36 04/08/22 08:38 Medications Medications Current Medications Acetaminophen (Acetaminophen 325 Mg Tablet) 650 mg PO Q6H PRN PRN Reason: Headache/Pain Mild Scale (1-3) Last Admin: 04/03/22 16:34 Dose: 650 mg Al Hydroxide/Mg Hydroxide (Magnesium Hydrox/Alum Hydrox 30 Ml Oral.Susp) 30 ml PO Q6H PRN PRN Reason: Heartburn/Nausea Last Admin: 04/20/22 16:30 Dose: 30 ml Alprazolam (Alprazolam 0.5 Mg Tablet) 1 mg PO QID PRN PRN Reason: Anxiety Last Admin: 04/22/22 06:41 Dose: 1 mg Amphetamine/Dextroamphetamine (Dextroamphetamine/Amphetamine Xr 10 Mg Cap.Er.24h) 30 mg PO DAILY COUNTS [facility]CLUDE 234 BEDS AT [facility] Last Admin: 04/22/22 07:54 Dose: 30 mg Amphetamine/Dextroamphetamine (Amphetamine Mixed Salts 10 Mg Tablet) 10 mg PO 1400 COUNTS [facility]CLUDE 234 BEDS AT [facility] Last Admin: 04/22/22 14:13 Dose: 10 mg Benzocaine (Throat Lozenge, Medicated Lozenge) 1 lozenge MUCOUS MEM Q2H PRN PRN Reason: Sore Throat Last Admin: 04/03/22 10:20 Dose: 1 lozenge Bisacodyl (Bisacodyl 5 Mg Tablet.Dr) 10 mg PO DAILY PRN PRN Reason: Constipation Last Admin: 04/20/22 11:13 Dose: 10 mg Diphenhydramine HCl (Diphenhydramine Hcl 25 Mg Capsule) 50 mg PO BEDTIME PRN PRN Reason: Insomnia Last Admin: 04/21/22 21:05 Dose: 50 mg Guaifenesin/Dextromethorphan (Guaifenesin Dm 600/30 1 Tab Tab.Er.12h) 1 tab PO BID PRN PRN Reason: cough, congestion Last Admin: 04/13/22 09:11 Dose: 1 tab Hydroxyzine HCl (Hydroxyzine Hcl 25 Mg Tablet) 25 mg PO Q6H PRN PRN Reason: Anxiety Last Admin: 03/28/22 17:05 Dose: 25 mg [place] Carbonate ([place] Carbonate Er 300 Mg Tablet.Er) 600 mg PO BEDTIME COUNTS INCLUDE 234 BEDS AT [facility] Last Admin: 04/21/22 21:22 Dose: 600 mg [place] Carbonate ([place] Carbonate Er 450 Mg Tablet.Er) 450 mg PO DAILY COUNTS INCLUDE 234 BEDS AT [facility] Last Admin: 04/22/22 07:55 Dose: 450 mg Loperamide HCl (Loperamide Hcl 2 Mg Capsule) 4 mg PO Q4H PRN PRN Reason: Diarrhea Last Admin: 04/06/22 16:14 Dose: 4 mg Magnesium Hydroxide (Milk Of Magnesia 30 Ml Oral.Susp) 30 ml PO DAILY PRN PRN Reason: Constipation Last Admin: 03/25/22 11:00 Dose: 30 ml Melatonin (Melatonin 3 Mg Tablet) 12 mg PO BEDTIME COUNTS INCLUDE 234 BEDS AT [facility] Last Admin: 04/21/22 21:22 Dose: 12 mg Multi-Ingred Medicated Throat [place] (Throat [place], Medicated 177 Ml Bottle) 1 spray MUCOUS MEM Q2H PRN PRN Reason: Sore Throat Last Admin: 04/08/22 08:25 Dose: 1 spray Nicotine (Nicotine 14 Mg Patch.Td24) 14 mg TRANSDERMA DAILY PRN PRN Reason: nicotine craving Nicotine Polacrilex (Nicotine Polacrilex 2 Mg Gum) 2 mg BUCCAL Q2H PRN PRN Reason: nicotine withdrawal Last Admin: 03/29/22 09:32 Dose: 2 mg Patient Own Medication ( Desvenlafaxine 100 Mg Er Tablet) 1 tab PO DAILY COUNTS INCLUDE 234 BEDS AT [facility] Last Admin: 04/22/22 07:53 Dose: 1 tab Olanzapine (Olanzapine 10 Mg Tablet) 10 mg PO BID PRN PRN Reason: impulsivity, SI, self-harm, ag Last Admin: 04/19/22 21:14 Dose: 10 mg Olanzapine (Olanzapine 5 Mg Tablet) 5 mg PO BID PRN PRN Reason: impulsivity, self harm , si, Last Admin: 04/22/22 11:24 Dose: 5 mg Prazosin HCl 10 mg/ Prazosin (HCl 4 mg) 14 mg PO BEDTIME COUNTS INCLUDE 234 BEDS AT [facility] Last Admin: 04/21/22 21:21 Dose: 14 mg Thiamine HCl (Thiamine Hcl 100 Mg Tablet) 200 mg PO DAILY COUNTS INCLUDE 234 BEDS AT [facility] Last Admin: 04/22/22 07:55 Dose: 200 mg Trazodone HCl (Trazodone Hcl 100 Mg Tablet) 300 mg PO BEDTIME COUNTS INCLUDE 234 BEDS AT [facility] Last Admin: 04/21/22 21:22 Dose: 300 mg Vitamin D (Cholecalciferol (Vitamin D3) 25 Mcg Tablet) 50 mcg PO DAILY COUNTS INCLUDE 234 BEDS AT [facility] Last Admin: 04/22/22 07:54 Dose: 50 mcg Allergies Allergies Allergy/AdvReac Type Severity Reaction Status Date / Time Sulfa (Sulfonamide Allergy Unknown HIVES Verified 03/15/21 14:13 Antibiotics) [SULFA (SULFONAMIDE ANTIBIOTICS)] sulfamethoxazole Allergy Unknown HIVES Verified 03/15/21 14:13 [From BACTRIM] trimethoprim [From BACTRIM] Allergy Unknown HIVES Verified 03/15/21 14:13 oseltamivir [From Tamiflu] AdvReac Sensation Verified 09/29/21 11:20 of bugs crawling on skin. Assessment & Plan Assessment & Plan (1) PTSD (post-traumatic stress disorder): Status: Acute Code(s): F43.10 - Post-traumatic stress disorder, unspecified (2) MDD (major depressive disorder), recurrent severe, without psychosis: Status: Acute Code(s): F33.2 - Major depressive disorder, recurrent severe without psychotic features (3) Suicidal ideation: Status: Acute Code(s): R45.851 - Suicidal ideations Plan 36 yo non binary, prefers they/them pronouns with SI. 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 Several serious precipitants-holidays, anniversary of the loss of a child they planned to co-parent and therapist moved from the area at the end of Feb 2022 however pt will be continuing via tele[employer]. Plan: Message left for Nathen Mesa. Pt wanting to change Pristiq, possibly re-start Olanzapine. We would like his input if possible. Pristiq ordered from [facility] as it is not on formulary Collateral contact as needed Assist pt to re-establish safety. 03/24/22: Continue current plan. 03/25/22: Olanzapine prn 03/26/22: Lactulose for constipation Safety discussion with pt. Increase in anxiety after her ER experience. Working with team to manage her impulsivity. 03/27: Continue current regimen and plans with increase of trazodone to 300 mg 03/28: Continue current plans and regimen. 03/29: Continue current regimen and plans. A 3 day notice has been placed 03/30/22: On 03/31, Increase Adderall to 30 mg XR q a.m. 04/01/22: Increase Melatonin to 11 mg HS. 04/02/22: Continue current regime Mucinex DM prn 04/03/22: Azithromycin 500 mg today, 250 mg x 4 days thereafter 04/04/22: Continue current regime 04/05/22: IModium prn for diarrhea Monitor for increasing risk of self harm 04/06/22: Resolving physical sx of COVID Increasing emotional sx, feeling tired, worn, drained. 04/07/22: Discontinue Ibuprofen BMP, Li, TSH 04/08/22 Olanzapine 5 mg prn to alternate with 10 mg for SIBS, SI, impu lsivity 04/08 continue tx. 04/09 continue tx. 04/10 continue tx. 04/11 continue tx. -monitor for sinus discomfort -check lithium level tomorrow morning -remain on one-to-one 04/12 pt would like to keep lithium level at 0.7, currently at 1.0, will decrease morning dose to 450mg po daily and keep 600mg po qhs. continue one to one. 04/13 continue tx. 04/14 continue tx, re check lithium level next . 04/15 ocontinue tx. 04/16 add benadryl 50mg po qhs one time but if helpful may want to schedule. 04/17 continue current treatment regimen with Benadryl q.h.s. ?Discussed case with nursing; met with patient; reviewed vitals and mildly tachycardic but otherwise WNL 04/18 Discussed case with nursing; met with patient; reviewed vitals and mildly hypertensive. Remain on one-to-one as patient reports active SI 04/21/22- Continue current plan Possible family meeting 04/23. 04/22/22- Family meeting 04/28 1pm Perphenazine 4 mg bid prn dissociative sx, anxiety to assist with grounding Patient educated on: medication risk/benefits and therapeutic strategies Informed Consent: understands and further education needed Reason for contiued inpatient stay Substantial Risk for: harm to self Time Spent With Patient Time: Total time managing care of this patient today _30___ minutes.
[2022-04-22 17:15] VITALS: BP 130/75; PULSE 73; RESP 18; TEMP 36.6; O2SAT 97
[2022-04-22] MEDS: Lithium Carbonate ER 300 MG TABLET.ER 600 MG PO (20:46)
[2022-04-22] MEDS: PRAZOSIN HCL 14 MG PO (20:47)
[2022-04-22] MEDS: Melatonin 3 MG TABLET 12 MG PO (20:47)
[2022-04-22] MEDS: traZODone HCL 100 MG TABLET 300 MG PO (20:49)
[2022-04-22] MEDS: Perphenazine 4 MG TABLET PO (20:50)
[2022-04-22] MEDS: OLANZapine 10 MG TABLET PO (20:56)
[2022-04-23] MEDS: ALPRAZolam 0.5 MG TABLET 1 MG PO ×3 (08:54→21:34)
[2022-04-23] MEDS: Lithium Carbonate ER 450 MG TABLET.ER PO (08:54)
[2022-04-23] MEDS: Dextroamphetamine/Amphetamine XR 10 MG CAP.ER.24H 30 MG PO (08:54)
[2022-04-23] MEDS: Thiamine HCL 100 MG TABLET 200 MG PO (08:54)
[2022-04-23] MEDS: Cholecalciferol (Vitamin D3) 25 MCG TABLET 50 MCG PO (08:54)
[2022-04-23 08:58] VITALS: BP 147/77; PULSE 97; RESP 16; TEMP 36.4; O2SAT 97
[2022-04-23 09:45] LABS: Lithium 0.76 mmol/L (0.60-1.20)
[2022-04-23 10:02] LABS: Alanine Aminotransferase 28 U/L (0-31); Albumin Level 3.7 g/dL (3.5-5.0); Alkaline Phosphatase 58 U/L (39-117); Anion Gap 11 (12-20); Aspartate Amino Transferase 20 U/L (5-31); Bilirubin Total 0.4 mg/dL (0.0-1.0); Blood Urea Nitrogen 7 mg/dL (9-16); Calcium 8.9 mg/dL (8.4-10.2); Carbon Dioxide 25 mmol/L (22-29); Chloride 108 mmol/L (96-108); Estimated Glomerular Filt Rate > 60; Glucose Random 91 mg/dL (60-115); Potassium 4.1 mmol/L (3.3-5.1); Sodium 140 mmol/L (135-145); Total Protein 5.9 g/dL (6.5-8.0)
[2022-04-23 10:22] LABS: Thyroid Stimulating Hormone 1.51 uIU/mL (0.32-4.0)
[2022-04-23] MEDS: Perphenazine 4 MG TABLET PO ×2 (13:26→21:36)
[2022-04-23] MEDS: Amphetamine Mixed Salts 10 MG TABLET PO (13:26)
--- NOTE | 2022-04-23 14:57 | HO.PSYCHPN ---
Subjective Subjective Date of Service: 04/23/22 Reason For Visit: Depression SI PTSD Subjective Notes: Conditional Voluntary Healthcare Proxy: No Guardianship: No Medical Problems Affecting Mental Status: No Interim History: Review of regime, discussion of potential changes in regular dosing. Review of geoff almaguer. Discussed family meeting scheduled for next week. Medication Compliance: Yes Side effects from medications: No Attending Groups: Yes Review of Systems Acute medical concerns: No Medical Review of Systems: unchanged Mental Status Exam Mental Status Exam Patient Appearance: Appropriate Patient Orientation: Person, Place, Time and Situation Level of Consciousness: Alert Patient Behavior: Appropriate, Talkative, Cooperative and Good Eye Contact Mood Description: Depressed Affect Description: Flat Patient Cognition Impaired: No Ability to Follow Directions: Good Speech Pattern: Spontaneous Speech Memory Description: Intact Hallucinations: None Delusions: Not Present Perceptual Disturbances: Depersonalization and Derealization Thought Process: Distracted and Rumination Thought Content: positive for Perseveration and positive for Suicidal Ideation Depressive Symptoms: Increased Anxiety, Hopelessness, Feelings of Guilt, Increased Fatigue, Loss of Energy and Difficulty Concentrating Judgement: Fair Diagnostics Vital Signs (24Hr): Vital Signs - 24 hr 04/22/22 17:15 04/23/22 08:58 Temperature 97.9 F 97.6 F Pulse Rate 73 97 Respiratory Rate 18 16 Blood Pressure 130/75 147/77 H Pulse Oximetry 97 97 Oxygen Delivery Method Room Air Room Air BMI result Body Mass Index 40.3 Labs 03/21/22 04:36 04/23/22 08:16 Labs: Laboratory Results - last 48 hr 04/23/22 04/23/22 08:16 08:16 Sodium 140 Potassium 4.1 Chloride 108 Carbon Dioxide 25 Anion Gap 11 L BUN 7 L Creatinine 0.76 Estim Creat Clear Calc 132.0 Estimated GFR > 60 Random Glucose 91 Calcium 8.9 Total Bilirubin 0.4 AST 20 ALT 28 Alkaline Phosphatase 58 Total Protein 5.9 L Albumin 3.7 TSH 1.51 Skelp 0.76 Medications Medications Current Medications Acetaminophen (Acetaminophen 325 Mg Tablet) 650 mg PO Q6H PRN PRN Reason: Headache/Pain Mild Scale (1-3) Last Admin: 04/03/22 16:34 Dose: 650 mg Al Hydroxide/Mg Hydroxide (Magnesium Hydrox/Alum Hydrox 30 Ml Oral.Susp) 30 ml PO Q6H PRN PRN Reason: Heartburn/Nausea Last Admin: 04/20/22 16:30 Dose: 30 ml Alprazolam (Alprazolam 0.5 Mg Tablet) 1 mg PO QID PRN PRN Reason: Anxiety Last Admin: 04/23/22 14:07 Dose: 1 mg Amphetamine/Dextroamphetamine (Dextroamphetamine/Amphetamine Xr 10 Mg Cap.Er.24h) 30 mg PO DAILY [facility] Last Admin: 04/23/22 08:54 Dose: 30 mg Amphetamine/Dextroamphetamine (Amphetamine Mixed Salts 10 Mg Tablet) 10 mg PO 1400 [facility] Last Admin: 04/23/22 13:26 Dose: 10 mg Benzocaine (Throat Lozenge, Medicated Lozenge) 1 lozenge MUCOUS MEM Q2H PRN PRN Reason: Sore Throat Last Admin: 04/03/22 10:20 Dose: 1 lozenge Bisacodyl (Bisacodyl 5 Mg Tablet.Dr) 10 mg PO DAILY PRN PRN Reason: Constipation Last Admin: 04/20/22 11:13 Dose: 10 mg Diphenhydramine HCl (Diphenhydramine Hcl 25 Mg Capsule) 50 mg PO BEDTIME PRN PRN Reason: Insomnia Last Admin: 04/21/22 21:05 Dose: 50 mg Guaifenesin/Dextromethorphan (Guaifenesin Dm 600/30 1 Tab Tab.Er.12h) 1 tab PO BID PRN PRN Reason: cough, congestion Last Admin: 04/13/22 09:11 Dose: 1 tab Hydroxyzine HCl (Hydroxyzine Hcl 25 Mg Tablet) 25 mg PO Q6H PRN PRN Reason: Anxiety Last Admin: 03/28/22 17:05 Dose: 25 mg Skelp Carbonate (Skelp Carbonate Er 300 Mg Tablet.Er) 600 mg PO BEDTIME [facility] Last Admin: 04/22/22 20:46 Dose: 600 mg Skelp Carbonate (Skelp Carbonate Er 450 Mg Tablet.Er) 450 mg PO DAILY [facility] Last Admin: 04/23/22 08:54 Dose: 450 mg Loperamide HCl (Loperamide Hcl 2 Mg Capsule) 4 mg PO Q4H PRN PRN Reason: Diarrhea Last Admin: 04/06/22 16:14 Dose: 4 mg Magnesium Hydroxide (Milk Of Magnesia 30 Ml Oral.Susp) 30 ml PO DAILY PRN PRN Reason: Constipation Last Admin: 03/25/22 11:00 Dose: 30 ml Melatonin (Melatonin 3 Mg Tablet) 12 mg PO BEDTIME [facility] Last Admin: 04/22/22 20:47 Dose: 12 mg Multi-Ingred Medicated Throat [place] (Throat [place], Medicated 177 Ml Bottle) 1 spray MUCOUS MEM Q2H PRN PRN Reason: Sore Throat Last Admin: 04/08/22 08:25 Dose: 1 spray Nicotine (Nicotine 14 Mg Patch.Td24) 14 mg TRANSDERMA DAILY PRN PRN Reason: nicotine craving Nicotine Polacrilex (Nicotine Polacrilex 2 Mg Gum) 2 mg BUCCAL Q2H PRN PRN Reason: nicotine withdrawal Last Admin: 03/29/22 09:32 Dose: 2 mg Patient Own Medication ( Desvenlafaxine 100 Mg Er Tablet) 1 tab PO DAILY [facility] Last Admin: 04/23/22 08:53 Dose: 1 tab Olanzapine (Olanzapine 10 Mg Tablet) 10 mg PO BID PRN PRN Reason: impulsivity, SI, self-harm, ag Last Admin: 04/22/22 20:56 Dose: 10 mg Olanzapine (Olanzapine 5 Mg Tablet) 5 mg PO BID PRN PRN Reason: impulsivity, self harm , si, Last Admin: 04/22/22 20:56 Dose: 5 mg Perphenazine (Perphenazine 4 Mg Tablet) 4 mg PO BID PRN PRN Reason: dissociative sx, anxiety Last Admin: 04/23/22 13:26 Dose: 4 mg Prazosin HCl 10 mg/ Prazosin (HCl 4 mg) 14 mg PO BEDTIME [facility] Last Admin: 04/22/22 20:47 Dose: 14 mg Thiamine HCl (Thiamine Hcl 100 Mg Tablet) 200 mg PO DAILY [facility] Last Admin: 04/23/22 08:54 Dose: 200 mg Trazodone HCl (Trazodone Hcl 100 Mg Tablet) 300 mg PO BEDTIME [facility] Last Admin: 04/22/22 20:49 Dose: 300 mg Vitamin D (Cholecalciferol (Vitamin D3) 25 Mcg Tablet) 50 mcg PO DAILY [facility] Last Admin: 04/23/22 08:54 Dose: 50 mcg Allergies Allergies Allergy/AdvReac Type Severity Reaction Status Date / Time Sulfa (Sulfonamide Allergy Unknown HIVES Verified 03/15/21 14:13 Antibiotics) [SULFA (SULFONAMIDE ANTIBIOTICS)] sulfamethoxazole Allergy Unknown HIVES Verified 03/15/21 14:13 [From BACTRIM] trimethoprim [From BACTRIM] Allergy Unknown HIVES Verified 03/15/21 14:13 oseltamivir [From Tamiflu] AdvReac Sensation Verified 09/29/21 11:20 of bugs crawling on skin. Assessment & Plan Assessment & Plan (1) PTSD (post-traumatic stress disorder): Status: Acute Code(s): F43.10 - Post-traumatic stress disorder, unspecified (2) MDD (major depressive disorder), recurrent severe, without psychosis: Status: Acute Code(s): F33.2 - Major depressive disorder, recurrent severe without psychotic features (3) Suicidal ideation: Status: Acute Code(s): R45.851 - Suicidal ideations Plan 36 yo non binary, prefers they/them pronouns with SI. 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 Several serious precipitants-holidays, anniversary of the loss of a child they planned to co-parent and therapist moved from the area at the end of Feb 2022 however pt will be continuing via [employer]. Plan: Message left for Nathen Mesa. Pt wanting to change Pristiq, possibly re-start Olanzapine. We would like his input if possible. Pristiq ordered from [facility] as it is not on formulary Collateral contact as needed Assist pt to re-establish safety. 03/24/22: Continue current plan. 03/25/22: Olanzapine prn 03/26/22: Lactulose for constipation Safety discussion with pt. Increase in anxiety after her ER experience. Working with team to manage her impulsivity. 03/27: Continue current regimen and plans with increase of trazodone to 300 mg 03/28: Continue current plans and regimen. 03/29: Continue current regimen and plans. A 3 day notice has been placed 03/30/22: On 03/31, Increase Adderall to 30 mg XR q a.m. 04/01/22: Increase Melatonin to 11 mg HS. 04/02/22: Continue current regime Mucinex DM prn 04/03/22: Azithromycin 500 mg today, 250 mg x 4 days thereafter 04/04/22: Continue current regime 04/05/22: IModium prn for diarrhea Monitor for increasing risk of self harm 04/06/22: Resolving physical sx of COVID Increasing emotional sx, feeling tired, worn, drained. 04/07/22: Discontinue Ibuprofen BMP, Li, TSH 04/08/22 Olanzapine 5 mg prn to alternate with 10 mg for SIBS, SI, impulsivity 04/08 continue tx. 04/09 continue tx. 04/10 continue tx. 04/11 continue tx. -monitor for sinus discomfort -check lithium level tomorrow morning -remain on one-to-one 04/12 pt would like to keep lithium level at 0.7, currently at 1.0, will decrease morning dose to 450mg po daily and keep 600mg po qhs. continue one to one. 04/13 continue tx. 04/14 continue tx, re check lithium level next . 04/15 ocontinue tx. 04/16 add benadryl 50mg po qhs one time but if helpful may want to schedule. 04/17 continue current treatment regimen with Benadryl q.h.s. ?Discussed case with nursing; met with patient; reviewed vitals and mildly tachycardic but otherwise WNL 04/18 Discussed case with nursing; met with patient; reviewed vitals and mildly hypertensive. Remain on one-to-one as patient reports active SI 04/21/22- Continue current plan Possible family meeting 04/23. 04/22/22- Family meeting 04/28 1pm Perphenazine 4 mg bid prn dissociative sx, anxiety to assist with grounding 04/23/22- Continue current regime Patient educated on: medication risk/benefits and therapeutic strategies Informed Consent: understands Reason for contiued inpatient stay Substantial Risk for: harm to self and rapid decompensation Time Spent With Patient Time: Total time managing care of this patient today 30____ minutes.
[2022-04-23 18:00] VITALS: BP 138/84; PULSE 78; RESP 16; TEMP 36; O2SAT 98
[2022-04-23] MEDS: Melatonin 3 MG TABLET 12 MG PO (21:35)
[2022-04-23] MEDS: PRAZOSIN HCL 14 MG PO (21:36)
[2022-04-23] MEDS: Lithium Carbonate ER 300 MG TABLET.ER 600 MG PO (21:37)
[2022-04-23] MEDS: traZODone HCL 100 MG TABLET 300 MG PO (21:38)
[2022-04-23] MEDS: OLANZapine 5 MG TABLET PO (21:44)
[2022-04-24] MEDS: Lithium Carbonate ER 300 MG TABLET.ER 600 MG PO ×2 (08:42→22:00)
[2022-04-24] MEDS: Dextroamphetamine/Amphetamine XR 10 MG CAP.ER.24H 30 MG PO (08:42)
[2022-04-24] MEDS: Thiamine HCL 100 MG TABLET 200 MG PO (08:42)
[2022-04-24] MEDS: ALPRAZolam 0.5 MG TABLET 1 MG PO ×3 (08:43→21:58)
[2022-04-24] MEDS: Cholecalciferol (Vitamin D3) 25 MCG TABLET 50 MCG PO (08:45)
[2022-04-24 09:38] VITALS: BP 119/79; PULSE 87; RESP 16; TEMP 36.4; O2SAT 96
[2022-04-24] MEDS: bisacodyL 5 MG TABLET.DR 10 MG PO (09:58)
[2022-04-24] MEDS: OLANZapine 5 MG TABLET PO ×2 (12:16→21:58)
[2022-04-24] MEDS: OLANZapine 10 MG TABLET PO (14:07)
--- NOTE | 2022-04-24 19:14 | HO.PSYCHPN ---
Subjective Subjective Date of Service: 04/24/22 Reason For Visit: Depression SI PTSD Subjective Notes: Conditional Voluntary Healthcare Proxy: No Guardianship: No Medical Problems Affecting Mental Status: No Interim History: Discussed upcoming family meeting next week and pt's goals including mom refusing to use pt's name and pronouns, refusal to talk about hard things that happened when she was young and that no means no and not an invitation for a guilt trip for pt. Medication Compliance: Yes Side effects from medications: No Attending Groups: Yes Review of Systems Acute medical concerns: No Medical Review of Systems: unchanged Mental Status Exam Mental Status Exam Patient Appearance: Appropriate Patient Orientation: Person, Place, Time and Situation Level of Consciousness: Alert Patient Behavior: Appropriate, Talkative, Cooperative and Good Eye Contact Mood Description: Depressed Affect Description: Flat Patient Cognition Impaired: No Ability to Follow Directions: Good Speech Pattern: Spontaneous Speech Memory Description: Intact Hallucinations: None Delusions: Not Present Perceptual Disturbances: Depersonalization and Derealization Thought Process: Distracted and Rumination Thought Content: positive for Perseveration and positive for Suicidal Ideation Depressive Symptoms: Increased Anxiety, Hopelessness, Feelings of Guilt, Increased Fatigue, Loss of Energy and Difficulty Concentrating Judgement: Fair Diagnostics Vital Signs (24Hr): Vital Signs - 24 hr 04/24/22 09:38 Temperature 97.5 F Pulse Rate 87 Respiratory Rate 16 Blood Pressure 119/79 Pulse Oximetry 96 Oxygen Delivery Method Room Air BMI result Body Mass Index 40.3 Labs 03/21/22 04:36 04/23/22 08:16 Labs: Laboratory Results - last 48 hr 04/23/22 04/23/22 08:16 08:16 Sodium 140 Potassium 4.1 Chloride 108 Carbon Dioxide 25 Anion Gap 11 L BUN 7 L Creatinine 0.76 Estim Creat Clear Calc 132.0 Estimated GFR > 60 Random Glucose 91 Calcium 8.9 Total Bilirubin 0.4 AST 20 ALT 28 Alkaline Phosphatase 58 Total Protein 5.9 L Albumin 3.7 TSH 1.51 [place] 0.76 Medications Medications Current Medications Acetaminophen (Acetaminophen 325 Mg Tablet) 650 mg PO Q6H PRN PRN Reason: Headache/Pain Mild Scale (1-3) Last Admin: 04/03/22 16:34 Dose: 650 mg Al Hydroxide/Mg Hydroxide (Magnesium Hydrox/Alum Hydrox 30 Ml Oral.Susp) 30 ml PO Q6H PRN PRN Reason: Heartburn/Nausea Last Admin: 04/20/22 16:30 Dose: 30 ml Alprazolam (Alprazolam 0.5 Mg Tablet) 1 mg PO QID PRN PRN Reason: Anxiety Last Admin: 04/24/22 14:07 Dose: 1 mg Amphetamine/Dextroamphetamine (Dextroamphetamine/Amphetamine Xr 10 Mg Cap.Er.24h) 30 mg PO DAILY [facility] Last Admin: 04/24/22 08:42 Dose: 30 mg Amphetamine/Dextroamphetamine (Amphetamine Mixed Salts 10 Mg Tablet) 10 mg PO 1400 [facility] Last Admin: 04/24/22 14:08 Dose: Not Given Benzocaine (Throat Lozenge, Medicated Lozenge) 1 lozenge MUCOUS MEM Q2H PRN PRN Reason: Sore Throat Last Admin: 04/03/22 10:20 Dose: 1 lozenge Bisacodyl (Bisacodyl 5 Mg Tablet.Dr) 10 mg PO DAILY PRN PRN Reason: Constipation Last Admin: 04/24/22 09:58 Dose: 10 mg Diphenhydramine HCl (Diphenhydramine Hcl 25 Mg Capsule) 50 mg PO BEDTIME PRN PRN Reason: Insomnia Last Admin: 04/21/22 21:05 Dose: 50 mg Guaifenesin/Dextromethorphan (Guaifenesin Dm 600/30 1 Tab Tab.Er.12h) 1 tab PO BID PRN PRN Reason: cough, congestion Last Admin: 04/13/22 09:11 Dose: 1 tab Hydroxyzine HCl (Hydroxyzine Hcl 25 Mg Tablet) 25 mg PO Q6H PRN PRN Reason: Anxiety Last Admin: 03/28/22 17:05 Dose: 25 mg [place] Carbonate ([place] Carbonate Er 300 Mg Tablet.Er) 600 mg PO BID [facility] Last Admin: 04/24/22 08:42 Dose: 600 mg Loperamide HCl (Loperamide Hcl 2 Mg Capsule) 4 mg PO Q4H PRN PRN Reason: Diarrhea Last Admin: 04/06/22 16:14 Dose: 4 mg Magnesium Hydroxide (Milk Of Magnesia 30 Ml Oral.Susp) 30 ml PO DAILY PRN PRN Reason: Constipation Last Admin: 03/25/22 11:00 Dose: 30 ml Melatonin (Melatonin 3 Mg Tablet) 12 mg PO BEDTIME [facility] Last Admin: 04/23/22 21:35 Dose: 12 mg Multi-Ingred Medicated Throat [place] (Throat [place], Medicated 177 Ml Bottle) 1 spray MUCOUS MEM Q2H PRN PRN Reason: Sore Throat Last Admin: 04/08/22 08:25 Dose: 1 spray Nicotine (Nicotine 14 Mg Patch.Td24) 14 mg TRANSDERMA DAILY PRN PRN Reason: nicotine craving Nicotine Polacrilex (Nicotine Polacrilex 2 Mg Gum) 2 mg BUCCAL Q2H PRN PRN Reason: nicotine withdrawal Last Admin: 03/29/22 09:32 Dose: 2 mg Patient Own Medication ( Desvenlafaxine 100 Mg Er Tablet) 1 tab PO DAILY [facility] Last Admin: 04/24/22 08:42 Dose: 1 tab Pt Own (Super B (Complex)) 1 tab PO DAILY [facility] Last Admin: 04/24/22 09:59 Dose: 1 tab Olanzapine (Olanzapine 10 Mg Tablet) 10 mg PO BID PRN PRN Reason: impulsivity, SI, self-harm, ag Last Admin: 04/24/22 14:07 Dose: 10 mg Olanzapine (Olanzapine 5 Mg Tablet) 5 mg PO BID PRN PRN Reason: impulsivity, self harm , si, Last Admin: 04/24/22 12:16 Dose: 5 mg Perphenazine (Perphenazine 4 Mg Tablet) 4 mg PO BID PRN PRN Reason: dissociative sx, anxiety Last Admin: 04/23/22 21:36 Dose: 4 mg Prazosin HCl 10 mg/ Prazosin (HCl 4 mg) 14 mg PO BEDTIME [facility] Last Admin: 04/23/22 21:36 Dose: 14 mg Trazodone HCl (Trazodone Hcl 100 Mg Tablet) 300 mg PO BEDTIME [facility] Last Admin: 04/23/22 21:38 Dose: 300 mg Vitamin D (Cholecalciferol (Vitamin D3) 25 Mcg Tablet) 50 mcg PO DAILY [facility] Last Admin: 04/24/22 08:45 Dose: 50 mcg Allergies Allergies Allergy/AdvReac Type Severity Reaction Status Date / Time Sulfa (Sulfonamide Allergy Unknown HIVES Verified 03/15/21 14:13 Antibiotics) [SULFA (SULFONAMIDE ANTIBIOTICS)] sulfamethoxazole Allergy Unknown HIVES Verified 03/15/21 14:13 [From BACTRIM] trimethoprim [From BACTRIM] Allergy Unknown HIVES Verified 03/15/21 14:13 oseltamivir [From Tamiflu] AdvReac Sensation Verified 09/29/21 11:20 of bugs crawling on skin. Assessment & Plan Assessment & Plan (1) PTSD (post-traumatic stress disorder): Status: Acute Code(s): F43.10 - Post-traumatic stress disorder, unspecified (2) MDD (major depressive disorder), recurrent severe, without psychosis: Status: Acute Code(s): F33.2 - Major depressive disorder, recurrent severe without psychotic features (3) Suicidal ideation: Status: Acute Code(s): R45.851 - Suicidal ideations Plan 36 yo non binary, prefers they/them pronouns with SI. S/P attempt via lying on railroad tracks [employer]. Several serious precipitants-holidays, anniversary of the loss of a child they planned to co-parent and therapist moved from the area at the end of Feb 2022 however pt will be continuing via [employer]. Plan: Message left for Nathen Mesa. Pt wanting to change Pristiq, possibly re-start Olanzapine. We would like his input if possible. Pristiq ordered from [facility] [employer] as it is not on formulary Collateral contact as needed Assist pt to re-establish safety. 03/24/22: Continue current plan. 03/25/22: Olanzapine prn 03/26/22: Lactulose for constipation Safety discussion with pt. Increase in anxiety after her ER experience. Working with team to manage her impulsivity. 03/27: Continue current regimen and plans with increase of trazodone to 300 mg 03/28: Continue current plans and regimen. 03/29: Continue current regimen and plans. A 3 day notice has been placed 03/30/22: On 03/31, Increase Adderall to 30 mg XR q a.m. 04/01/22: Increase Melatonin to 11 mg HS. 04/02/22: Continue current regime Mucinex DM prn 04/03/22: Azithromycin 500 mg today, 250 mg x 4 days thereafter 04/04/22: Continue current regime 04/05/22: IModium prn for diarrhea Monitor for increasing risk of self harm 04/06/22: Resolving physical sx of COVID Increasing emotional sx, feeling tired, worn, drained. 04/07/22: Discontinue Ibuprofen BMP, Li, TSH 04/08/22 Olanzapine 5 mg prn to alternate with 10 mg for SIBS, SI, impulsivity 04/08 continue tx. 04/09 continue tx. 04/10 continue tx. 04/11 continue tx. -monitor for sinus discomfort -check lithium level tomorrow morning -remain on one-to-one 04/12 pt would like to keep lithium level at 0.7, currently at 1.0, will decrease morning dose to 450mg po daily and keep 600mg po qhs. continue one to one. 04/13 continue tx. 04/14 continue tx, re check lithium level next . 04/15 ocontinue tx. 04/16 add benadryl 50mg po qhs one time but if helpful may want to schedule. 04/17 continue current treatment regimen with Benadryl q.h.s. ?Discussed case with nursing; met with patient; reviewed vitals and mildly tachycardic but otherwise WNL 04/18 Discussed case with nursing; met with patient; reviewed vitals and mildly hypertensive. Remain on one-to-one as patient reports active SI 04/21/22- Continue current plan Possible family meeting 04/23. 04/22/22- Family meeting 04/28 1pm Perphenazine 4 mg bid prn dissociative sx, anxiety to assist with grounding 04/24/22- Continue current regime Informed Consent: does not understand Reason for contiued inpatient stay Substantial Risk for: harm to self and rapid decompensation Time Spent With Patient Time: Total time managing care of this patient today _15___ minutes.
[2022-04-24 21:55] VITALS: BP 118/61; PULSE 84; RESP 14; TEMP 36.3
[2022-04-24] MEDS: traZODone HCL 100 MG TABLET 300 MG PO (21:59)
[2022-04-24] MEDS: Perphenazine 4 MG TABLET PO (21:59)
[2022-04-24] MEDS: PRAZOSIN HCL 14 MG PO (21:59)
[2022-04-24] MEDS: diphenhydrAMINE HCL 25 MG CAPSULE 50 MG PO (22:00)
[2022-04-24] MEDS: Melatonin 3 MG TABLET 12 MG PO (22:01)
[2022-04-25] MEDS: Dextroamphetamine/Amphetamine XR 10 MG CAP.ER.24H 30 MG PO (08:37)
[2022-04-25] MEDS: Lithium Carbonate ER 300 MG TABLET.ER 600 MG PO ×2 (08:37→21:46)
[2022-04-25] MEDS: Cholecalciferol (Vitamin D3) 25 MCG TABLET 50 MCG PO (08:37)
[2022-04-25] MEDS: ALPRAZolam 0.5 MG TABLET 1 MG PO ×3 (08:37→21:51)
[2022-04-25 08:43] VITALS: BP 131/77; PULSE 85; RESP 16; TEMP 36.2; O2SAT 95
[2022-04-25] MEDS: Magnesium Hydrox/Alum Hydrox 30 ML ORAL.SUSP PO (10:25)
[2022-04-25] MEDS: bisacodyL 5 MG TABLET.DR 10 MG PO (10:25)
[2022-04-25] MEDS: Amphetamine Mixed Salts 10 MG TABLET PO (14:04)
[2022-04-25] MEDS: Perphenazine 4 MG TABLET PO (14:42)
[2022-04-25] MEDS: Lactulose 20 GM/30 ML SOLUTION 10 GM PO (18:28)
--- NOTE | 2022-04-25 19:27 | HO.PSYCHPN ---
Subjective Subjective Date of Service: 04/25/22 Reason For Visit: Depression SI PTSD Subjective Notes: Conditional Voluntary Healthcare Proxy: No Guardianship: No Medical Problems Affecting Mental Status: No Interim History: Care discussed with team. Pt preparing for family meeting-has been giving thought about what issues to address, currently identifies her name and pronouns, how mom responds when pt says no, and moms unwillingness to discuss hard things Reports constipation-Magnesium citrate is not available per pharmacy-will trial Lactulose/Miralax. Medication Compliance: Yes Side effects from medications: No Attending Groups: Yes Review of Systems Acute medical concerns: No Medical Review of Systems: unchanged Mental Status Exam Mental Status Exam Patient Appearance: Appropriate Patient Orientation: Person, Place, Time and Situation Level of Consciousness: Alert Patient Behavior: Appropriate, Talkative, Cooperative and Good Eye Contact Mood Description: Depressed Affect Description: Flat Patient Cognition Impaired: No Ability to Follow Directions: Good Speech Pattern: Spontaneous Speech Memory Description: Intact Hallucinations: None Delusions: Not Present Perceptual Disturbances: Depersonalization and Derealization Thought Process: Distracted and Rumination Thought Content: positive for Perseveration and positive for Suicidal Ideation Depressive Symptoms: Increased Anxiety, Hopelessness, Feelings of Guilt, Increased Fatigue, Loss of Energy and Difficulty Concentrating Judgement: Fair Diagnostics Vital Signs (24Hr): Vital Signs - 24 hr 04/24/22 21:55 04/25/22 08:43 Temperature 97.4 F 97.2 F Pulse Rate 84 85 Respiratory Rate 14 16 Blood Pressure 118/61 131/77 Pulse Oximetry 95 Oxygen Delivery Method Room Air BMI result Body Mass Index 40.3 Labs 03/21/22 04:36 04/23/22 08:16 Medications Medications Current Medications Acetaminophen (Acetaminophen 325 Mg Tablet) 650 mg PO Q6H PRN PRN Reason: Headache/Pain Mild Scale (1-3) Last Admin: 04/03/22 16:34 Dose: 650 mg Al Hydroxide/Mg Hydroxide (Magnesium Hydrox/Alum Hydrox 30 Ml Oral.Susp) 30 ml PO Q6H PRN PRN Reason: Heartburn/Nausea Last Admin: 04/25/22 10:25 Dose: 30 ml Alprazolam (Alprazolam 0.5 Mg Tablet) 1 mg PO QID PRN PRN Reason: Anxiety Last Admin: 04/25/22 16:31 Dose: 1 mg Amphetamine/Dextroamphetamine (Dextroamphetamine/Amphetamine Xr 10 Mg Cap.Er.24h) 30 mg PO DAILY [facility] Last Admin: 04/25/22 08:37 Dose: 30 mg Amphetamine/Dextroamphetamine (Amphetamine Mixed Salts 10 Mg Tablet) 10 mg PO 1400 [facility] Last Admin: 04/25/22 14:04 Dose: 10 mg Benzocaine (Throat Lozenge, Medicated Lozenge) 1 lozenge MUCOUS MEM Q2H PRN PRN Reason: Sore Throat Last Admin: 04/03/22 10:20 Dose: 1 lozenge Bisacodyl (Bisacodyl 5 Mg Tablet.Dr) 10 mg PO DAILY PRN PRN Reason: Constipation Last Admin: 04/25/22 10:25 Dose: 10 mg Diphenhydramine HCl (Diphenhydramine Hcl 25 Mg Capsule) 50 mg PO BEDTIME PRN PRN Reason: Insomnia Last Admin: 04/24/22 22:00 Dose: 50 mg Guaifenesin/Dextromethorphan (Guaifenesin Dm 600/30 1 Tab Tab.Er.12h) 1 tab PO BID PRN PRN Reason: cough, congestion Last Admin: 04/13/22 09:11 Dose: 1 tab Hydroxyzine HCl (Hydroxyzine Hcl 25 Mg Tablet) 25 mg PO Q6H PRN PRN Reason: Anxiety Last Admin: 03/28/22 17:05 Dose: 25 mg Lactulose (Lactulose 20 Gm/30 Ml Solution) 10 gm PO DAILY PRN PRN Reason: Constipation Last Admin: 04/25/22 18:28 Dose: 10 gm [place] Carbonate ([place] Carbonate Er 300 Mg Tablet.Er) 600 mg PO BID [facility] Last Admin: 04/25/22 08:37 Dose: 600 mg Loperamide HCl (Loperamide Hcl 2 Mg Capsule) 4 mg PO Q4H PRN PRN Reason: Diarrhea Last Admin: 04/06/22 16:14 Dose: 4 mg Magnesium Hydroxide (Milk Of Magnesia 30 Ml Oral.Susp) 30 ml PO DAILY PRN PRN Reason: Constipation Last Admin: 03/25/22 11:00 Dose: 30 ml Melatonin (Melatonin 3 Mg Tablet) 12 mg PO BEDTIME [facility] Last Admin: 04/24/22 22:01 Dose: 12 mg Multi-Ingred Medicated Throat [place] (Throat [place], Medicated 177 Ml Bottle) 1 spray MUCOUS MEM Q2H PRN PRN Reason: Sore Throat Last Admin: 04/08/22 08:25 Dose: 1 spray Nicotine (Nicotine 14 Mg Patch.Td24) 14 mg TRANSDERMA DAILY PRN PRN Reason: nicotine craving Nicotine Polacrilex (Nicotine Polacrilex 2 Mg Gum) 2 mg BUCCAL Q2H PRN PRN Reason: nicotine withdrawal Last Admin: 03/29/22 09:32 Dose: 2 mg Patient Own Medication ( Desvenlafaxine 100 Mg Er Tablet) 1 tab PO DAILY [facility] Last Admin: 04/25/22 08:37 Dose: 1 tab Pt Own (Super B (Complex)) 1 tab PO DAILY [facility] Last Admin: 04/25/22 08:37 Dose: 1 tab Olanzapine (Olanzapine 10 Mg Tablet) 10 mg PO BID PRN PRN Reason: impulsivity, SI, self-harm, ag Last Admin: 04/24/22 14:07 Dose: 10 mg Olanzapine (Olanzapine 5 Mg Tablet) 5 mg PO BID PRN PRN Reason: impulsivity, self harm , si, Last Admin: 04/24/22 21:58 Dose: 5 mg Perphenazine (Perphenazine 4 Mg Tablet) 4 mg PO BID PRN PRN Reason: dissociative sx, anxiety Last Admin: 04/25/22 14:42 Dose: 4 mg Prazosin HCl 10 mg/ Prazosin (HCl 4 mg) 14 mg PO BEDTIME [facility] Last Admin: 04/24/22 21:59 Dose: 14 mg Trazodone HCl (Trazodone Hcl 100 Mg Tablet) 300 mg PO BEDTIME [facility] Last Admin: 04/24/22 21:59 Dose: 300 mg Vitamin D (Cholecalciferol (Vitamin D3) 25 Mcg Tablet) 50 mcg PO DAILY [facility] Last Admin: 04/25/22 08:37 Dose: 50 mcg Allergies Allergies Allergy/AdvReac Type Severity Reaction Status Date / Time Sulfa (Sulfonamide Allergy Unknown HIVES Verified 03/15/21 14:13 Antibiotics) [SULFA (SULFONAMIDE ANTIBIOTICS)] sulfamethoxazole Allergy Unknown HIVES Verified 03/15/21 14:13 [From BACTRIM] trimethoprim [From BACTRIM] Allergy Unknown HIVES Verified 03/15/21 14:13 oseltamivir [From Tamiflu] AdvReac Sensation Verified 09/29/21 11:20 of bugs crawling on skin. Assessment & Plan Assessment & Plan (1) PTSD (post-traumatic stress disorder): Status: Acute Code(s): F43.10 - Post-traumatic stress disorder, unspecified (2) MDD (major depressive disorder), recurrent severe, without psychosis: Status: Acute Code(s): F33.2 - Major depressive disorder, recurrent severe without psychotic features (3) Suicidal ideation: Status: Acute Code(s): R45.851 - Suicidal ideations Plan 36 yo non binary, prefers they/them pronouns with SI. 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 Several serious precipitants-holidays, anniversary of the loss of a child they planned to co-parent and therapist moved from the area at the end of Feb 2022 however pt will be continuing via [employer]. Plan: Message left for Nathen Mesa. Pt wanting to change Pristiq, possibly re-start Olanzapine. We would like his input if possible. Pristiq ordered from [employer] as it is not on formulary Collateral contact as needed Assist pt to re-establish safety. 03/24/22: Continue current plan. 03/25/22: Olanzapine prn 03/26/22: Lactulose for constipation Safety discussion with pt. Increase in anxiety after her ER experience. Working with team to manage her impulsivity. 03/27: Continue current regimen and plans with increase of trazodone to 300 mg 03/28: Continue current plans and regimen. 03/29: Continue current regimen and plans. A 3 day notice has been placed 03/30/22: On 03/31, Increase Adderall to 30 mg XR q a.m. 04/01/22: Increase Melatonin to 11 mg HS. 04/02/22: Continue current regime Mucinex DM prn 04/03/22: Azithromycin 500 mg today, 250 mg x 4 days thereafter 04/04/22: Continue current regime 04/05/22: IModium prn for diarrhea Monitor for increasing risk of self harm 04/06/22: Resolving physical sx of COVID Increasing emotional sx, feeling tired, worn, drained. 04/07/22: Discontinue Ibuprofen BMP, Li, TSH 04/08/22 Olanzapine 5 mg prn to alternate with 10 mg for SIBS, SI, impulsivity 04/08 continue tx. 04/09 continue tx. 04/10 continue tx. 04/11 continue tx. -monitor for sinus discomfort -check lithium level tomorrow morning -remain on one-to-one 04/12 pt would like to keep lithium level at 0.7, currently at 1.0, will decrease morning dose to 450mg po daily and keep 600mg po qhs. continue one to one. 04/13 continue tx. 04/14 continue tx, re check lithium level next . 04/15 ocontinue tx. 04/16 add benadryl 50mg po qhs one time but if helpful may want to schedule. 04/17 continue current treatment regimen with Benadryl q.h.s. ?Discussed case with nursing; met with patient; reviewed vitals and mildly tachycardic but otherwise WNL 04/18 Discussed case with nursing; met with patient; reviewed vitals and mildly hypertensive. Remain on one-to-one as patient reports active SI 04/21/22- Continue current plan Possible family meeting 04/23. 04/22/22- Family meeting 04/28 1pm Perphenazine 4 mg bid prn dissociative sx, anxiety to assist with grounding 04/24/22- Continue current regime 04/25/22- Continue current regime Lactulose/Miralax/Colace for constipation. Patient educated on: therapeutic strategies Informed Consent: understands Reason for contiued inpatient stay Substantial Risk for: rapid decompensation Time Spent With Patient Time: Total time managing care of this patient today __15__ minutes.
[2022-04-25 21:45] VITALS: BP 131/75; PULSE 114; RESP 16; TEMP 36.8
[2022-04-25] MEDS: OLANZapine 10 MG TABLET PO (21:45)
[2022-04-25] MEDS: traZODone HCL 100 MG TABLET 300 MG PO (21:46)
[2022-04-25] MEDS: PRAZOSIN HCL 14 MG PO (21:46)
[2022-04-25] MEDS: OLANZapine 5 MG TABLET PO (21:47)
[2022-04-25] MEDS: hydrOXYzine HCL 25 MG TABLET PO (21:47)
[2022-04-25] MEDS: Melatonin 3 MG TABLET 12 MG PO (21:50)
[2022-04-26 08:20] VITALS: BP 136/97; PULSE 103; RESP 18; TEMP 36.2; O2SAT 96
[2022-04-26] MEDS: Dextroamphetamine/Amphetamine XR 10 MG CAP.ER.24H 30 MG PO (08:20)
[2022-04-26] MEDS: ALPRAZolam 0.5 MG TABLET 1 MG PO ×3 (08:20→21:31)
[2022-04-26] MEDS: Cholecalciferol (Vitamin D3) 25 MCG TABLET 50 MCG PO (08:20)
[2022-04-26] MEDS: Lithium Carbonate ER 300 MG TABLET.ER 600 MG PO ×2 (08:21→21:33)
[2022-04-26] MEDS: polyethylene glycoL 3350 17 GM POWD.PACK PO (10:13)
[2022-04-26] MEDS: Amphetamine Mixed Salts 10 MG TABLET PO (14:07)
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
[2022-04-26 21:20] VITALS: BP 124/78; PULSE 86; TEMP 36.2; O2SAT 97
[2022-04-26] MEDS: OLANZapine 10 MG TABLET PO (21:32)
[2022-04-26] MEDS: hydrOXYzine HCL 25 MG TABLET PO (21:33)
[2022-04-26] MEDS: OLANZapine 5 MG TABLET PO (21:33)
[2022-04-26] MEDS: PRAZOSIN HCL 14 MG PO (21:34)
[2022-04-26] MEDS: Lurasidone HCl 20 MG TABLET PO (21:35)
[2022-04-26] MEDS: Docusate Sodium 100 MG CAPSULE PO (21:36)
[2022-04-26] MEDS: Melatonin 3 MG TABLET 12 MG PO (21:39)
[2022-04-26] MEDS: traZODone HCL 100 MG TABLET 300 MG PO (21:40)
[2022-04-27] MEDS: polyethylene glycoL 3350 17 GM POWD.PACK PO (08:55)
[2022-04-27] MEDS: Docusate Sodium 100 MG CAPSULE PO ×2 (08:56→21:51)
[2022-04-27] MEDS: Dextroamphetamine/Amphetamine XR 10 MG CAP.ER.24H 30 MG PO (08:56)
[2022-04-27] MEDS: ALPRAZolam 0.5 MG TABLET 1 MG PO ×3 (08:57→21:56)
[2022-04-27] MEDS: Cholecalciferol (Vitamin D3) 25 MCG TABLET 50 MCG PO (08:57)
[2022-04-27] MEDS: Lithium Carbonate ER 300 MG TABLET.ER 600 MG PO ×2 (08:57→21:51)
[2022-04-27 10:05] VITALS: BP 129/88; PULSE 118; RESP 18; TEMP 36.7; O2SAT 96
[2022-04-27] MEDS: Amphetamine Mixed Salts 10 MG TABLET PO (14:15)
[2022-04-27] MEDS: OLANZapine 5 MG TABLET PO ×2 (14:15→21:57)
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
--- NOTE | 2022-04-27 19:02 | PC.NURSE ---
Patient was noted to have some nylon cord and a paper clip in her possession, by the patient observer, at shift change. The PC was able to obtain these items from her. Patient said she found the items on a table during the afternoon art group. Since that time patient has been in bed, shut down and refusing to talk with anyone. Patient also refused any prn medications. Provider notified.
[2022-04-27 21:45] VITALS: BP 133/79; PULSE 74; TEMP 36.6; O2SAT 97
[2022-04-27] MEDS: PRAZOSIN HCL 14 MG PO (21:50)
[2022-04-27] MEDS: Lurasidone HCl 20 MG TABLET PO (21:50)
[2022-04-27] MEDS: Melatonin 3 MG TABLET 12 MG PO (21:50)
[2022-04-27] MEDS: traZODone HCL 100 MG TABLET 300 MG PO (21:51)
[2022-04-27] MEDS: hydrOXYzine HCL 25 MG TABLET PO (21:57)
[2022-04-27] MEDS: OLANZapine 10 MG TABLET PO (22:00)
[2022-04-28] MEDS: ALPRAZolam 0.5 MG TABLET 1 MG PO ×3 (08:48→21:23)
[2022-04-28] MEDS: Lithium Carbonate ER 300 MG TABLET.ER 600 MG PO ×2 (08:49→21:23)
[2022-04-28] MEDS: Docusate Sodium 100 MG CAPSULE PO ×2 (08:49→21:22)
[2022-04-28] MEDS: Cholecalciferol (Vitamin D3) 25 MCG TABLET 50 MCG PO (08:49)
[2022-04-28] MEDS: Dextroamphetamine/Amphetamine XR 10 MG CAP.ER.24H 30 MG PO (08:49)
--- NOTE | 2022-04-28 08:54 | HO.PSYCHPN ---
Subjective Subjective Date of Service: 04/28/22 Reason For Visit: Depression SI PTSD Subjective Notes: Conditional Voluntary Healthcare Proxy: No Guardianship: No Medical Problems Affecting Mental Status: No Interim History: Pt participated in a family meeting with their mother and Carlita SOW. They were able to focus on their agenda of discussion goals-1. using their name and correct pronouns, 2. mother's struggle with talking about hard things with them and 3. acknowledgment when they say no. Mother was receptive and responsive. Pt maintained clarity and composure-they were concerned they would become agitated but managed well and states they felt the outcome was ok, however, time will tell they believe. Discussed some difficulties with peers in milieu. Tolerating Latuda, discussed timing. Discussed wanting to work on discontinuation of one to one next week if possible. Medication Compliance: Yes Side effects from medications: No Attending Groups: Yes Review of Systems Acute medical concerns: No Medical Review of Systems: unchanged Mental Status Exam Mental Status Exam Patient Appearance: Appropriate Patient Orientation: Person, Place, Time and Situation Level of Consciousness: Alert Patient Behavior: Appropriate, Talkative, Cooperative and Good Eye Contact Mood Description: Depressed Affect Description: Flat Patient Cognition Impaired: No Ability to Follow Directions: Good Speech Pattern: Spontaneous Speech Memory Description: Intact Hallucinations: None Delusions: Not Present Perceptual Disturbances: Depersonalization and Derealization Thought Process: Distracted and Rumination Thought Content: positive for Perseveration and positive for Suicidal Ideation Depressive Symptoms: Increased Anxiety, Hopelessness, Feelings of Guilt, Increased Fatigue, Loss of Energy and Difficulty Concentrating Judgement: Fair Diagnostics Vital Signs (24Hr): Vital Signs - 24 hr 04/27/22 10:05 04/27/22 21:45 Temperature 98.0 F 97.8 F Pulse Rate 118 H 74 Respiratory Rate 18 Blood Pressure 129/88 133/79 Pulse Oximetry 96 97 Oxygen Delivery Method Room Air Room Air BMI result Body Mass Index 40.3 Labs 03/21/22 04:36 04/23/22 08:16 Medications Medications Current Medications Acetaminophen (Acetaminophen 325 Mg Tablet) 650 mg PO Q6H PRN PRN Reason: Headache/Pain Mild Scale (1-3) Last Admin: 04/03/22 16:34 Dose: 650 mg Al Hydroxide/Mg Hydroxide (Magnesium Hydrox/Alum Hydrox 30 Ml Oral.Susp) 30 ml PO Q6H PRN PRN Reason: Heartburn/Nausea Last Admin: 04/25/22 10:25 Dose: 30 ml Alprazolam (Alprazolam 0.5 Mg Tablet) 1 mg PO QID PRN PRN Reason: Anxiety Last Admin: 04/28/22 08:48 Dose: 1 mg Amphetamine/Dextroamphetamine (Dextroamphetamine/Amphetamine Xr 10 Mg Cap.Er.24h) 30 mg PO DAILY [facility] Last Admin: 04/28/22 08:49 Dose: 30 mg Amphetamine/Dextroamphetamine (Amphetamine Mixed Salts 10 Mg Tablet) 10 mg PO 1400 [facility] Last Admin: 04/27/22 14:15 Dose: 10 mg Benzocaine (Throat Lozenge, Medicated Lozenge) 1 lozenge MUCOUS MEM Q2H PRN PRN Reason: Sore Throat Last Admin: 04/03/22 10:20 Dose: 1 lozenge Bisacodyl (Bisacodyl 5 Mg Tablet.Dr) 10 mg PO DAILY PRN PRN Reason: Constipation Last Admin: 04/25/22 10:25 Dose: 10 mg Diphenhydramine HCl (Diphenhydramine Hcl 25 Mg Capsule) 50 mg PO BEDTIME PRN PRN Reason: Insomnia Last Admin: 04/24/22 22:00 Dose: 50 mg Docusate Sodium (Docusate Sodium 100 Mg Capsule) 100 mg PO BID [facility] Last Admin: 04/28/22 08:49 Dose: 100 mg Guaifenesin/Dextromethorphan (Guaifenesin Dm 600/30 1 Tab Tab.Er.12h) 1 tab PO BID PRN PRN Reason: cough, congestion Last Admin: 04/13/22 09:11 Dose: 1 tab Hydroxyzine HCl (Hydroxyzine Hcl 25 Mg Tablet) 25 mg PO Q6H PRN PRN Reason: Anxiety Last Admin: 04/27/22 21:57 Dose: 25 mg Lactulose (Lactulose 20 Gm/30 Ml Solution) 10 gm PO DAILY PRN PRN Reason: Constipation Last Admin: 04/25/22 18:28 Dose: 10 gm [place] Carbonate ([place] Carbonate Er 300 Mg Tablet.Er) 600 mg PO BID [facility] Last Admin: 04/28/22 08:49 Dose: 600 mg Loperamide HCl (Loperamide Hcl 2 Mg Capsule) 4 mg PO Q4H PRN PRN Reason: Diarrhea Last Admin: 04/06/22 16:14 Dose: 4 mg Lurasidone HCl (Lurasidone Hcl 20 Mg Tablet) 20 mg PO BEDTIME [facility] Last Admin: 04/27/22 21:50 Dose: 20 mg Magnesium Hydroxide (Milk Of Magnesia 30 Ml Oral.Susp) 30 ml PO DAILY PRN PRN Reason: Constipation Last Admin: 03/25/22 11:00 Dose: 30 ml Melatonin (Melatonin 3 Mg Tablet) 12 mg PO BEDTIME [facility] Last Admin: 04/27/22 21:50 Dose: 12 mg Multi-Ingred Medicated Throat [place] (Throat [place], Medicated 177 Ml Bottle) 1 spray MUCOUS MEM Q2H PRN PRN Reason: Sore Throat Last Admin: 04/08/22 08:25 Dose: 1 spray Nicotine (Nicotine 14 Mg Patch.Td24) 14 mg TRANSDERMA DAILY PRN PRN Reason: nicotine craving Nicotine Polacrilex (Nicotine Polacrilex 2 Mg Gum) 2 mg BUCCAL Q2H PRN PRN Reason: nicotine withdrawal Last Admin: 03/29/22 09:32 Dose: 2 mg Patient Own Medication ( Desvenlafaxine 100 Mg Er Tablet) 1 tab PO DAILY [facility] Last Admin: 04/28/22 08:43 Dose: 1 tab Pt Own (Super B (Complex)) 1 tab PO DAILY [facility] Last Admin: 04/28/22 08:44 Dose: 1 tab Olanzapine (Olanzapine 5 Mg Tablet) 5 mg PO TID PRN PRN Reason: impulsivity, self harm , si, Last Admin: 04/27/22 21:57 Dose: 5 mg Olanzapine (Olanzapine 10 Mg Tablet) 10 mg PO DAILY PRN PRN Reason: impulsivity, SI, self-harm, ag Last Admin: 04/27/22 22:00 Dose: 10 mg Polyethylene Glycol (Polyethylene Glycol 3350 17 Gm Powd.Pack) 17 gm PO DAILY PRN PRN Reason: constipation Last Admin: 04/27/22 08:55 Dose: 17 gm Prazosin HCl 10 mg/ Prazosin (HCl 4 mg) 14 mg PO BEDTIME [facility] Last Admin: 04/27/22 21:50 Dose: 14 mg Trazodone HCl (Trazodone Hcl 100 Mg Tablet) 300 mg PO BEDTIME [facility] Last Admin: 04/27/22 21:51 Dose: 300 mg Vitamin D (Cholecalciferol (Vitamin D3) 25 Mcg Tablet) 50 mcg PO DAILY [facility] Last Admin: 04/28/22 08:49 Dose: 50 mcg Allergies Allergies Allergy/AdvReac Type Severity Reaction Status Date / Time Sulfa (Sulfonamide Allergy Unknown HIVES Verified 03/15/21 14:13 Antibiotics) [SULFA (SULFONAMIDE ANTIBIOTICS)] sulfamethoxazole Allergy Unknown HIVES Verified 03/15/21 14:13 [From BACTRIM] trimethoprim [From BACTRIM] Allergy Unknown HIVES Verified 03/15/21 14:13 oseltamivir [From Tamiflu] AdvReac Sensation Verified 09/29/21 11:20 of bugs crawling on skin. Assessment & Plan Assessment & Plan (1) PTSD (post-traumatic stress disorder): Status: Acute Code(s): F43.10 - Post-traumatic stress disorder, unspecified (2) MDD (major depressive disorder), recurrent severe, without psychosis: Status: Acute Code(s): F33.2 - Major depressive disorder, recurrent severe without psychotic features (3) Suicidal ideation: Status: Acute Code(s): R45.851 - Suicidal ideations Plan 36 yo non binary, prefers they/them pronouns with SI. S/P attempt via lying on railroad tracks [employer]. Several serious precipitants-holidays, anniversary of the loss of a child they planned to co-parent and therapist moved from the area at the end of Feb 2022 however pt will be continuing via tele[employer]. Plan: Message left for Nathen Mesa. Pt wanting to change Pristiq, possibly re-start Olanzapine. We would like his input if possible. Pristiq ordered from [employer] as it is not on formulary Collateral contact as needed Assist pt to re-establish safety. 03/24/22: Continue current plan. 03/25/22: Olanzapine prn 03/26/22: Lactulose for constipation Safety discussion with pt. Increase in anxiety after her ER experience. Working with team to manage her impulsivity. 03/27: Continue current regimen and plans with increase of trazodone to 300 mg 03/28: Continue current plans and regimen. 03/29: Continue current regimen and plans. A 3 day notice has been placed 03/30/22: On 03/31, Increase Adderall to 30 mg XR q a.m. 04/01/22: Increase Melatonin to 11 mg HS. 04/02/22: Continue current regime Mucinex DM prn 04/03/22: Azithromycin 500 mg today, 250 mg x 4 days thereafter 04/04/22: Continue current regime 04/05/22: IModium prn for diarrhea Monitor for increasing risk of self harm 04/06/22: Resolving physical sx of COVID Increasing emotional sx, feeling tired, worn, drained. 04/07/22: Discontinue Ibuprofen BMP, Li, TSH 04/08/22 Olanzapine 5 mg prn to alternate with 10 mg for SIBS, SI, impulsivity 04/08 continue tx. 04/09 continue tx. 04/10 continue tx. 04/11 continue tx. -monitor for sinus discomfort -check lithium level tomorrow morning -remain on one-to-one 04/12 pt would like to keep lithium level at 0.7, currently at 1.0, will decrease morning dose to 450mg po daily and keep 600mg po qhs. continue one to one. 04/13 continue tx. 04/14 continue tx, re check lithium level next . 04/15 ocontinue tx. 04/16 add benadryl 50mg po qhs one time but if helpful may want to schedule. 04/17 continue current treatment regimen with Benadryl q.h.s. ?Discussed case with nursing; met with patient; reviewed vitals and mildly tachycardic but otherwise WNL 04/18 Discussed case with nursing; met with patient; reviewed vitals and mildly hypertensive. Remain on one-to-one as patient reports active SI 04/21/22- Continue current plan Possible family meeting 04/23. 04/22/22- Family meeting 04/28 1pm Perphenazine 4 mg bid prn dissociative sx, anxiety to assist with grounding 04/24/22- Continue current regime 04/26/22-Continue current plan. Preparing for family meeting 04/28. Discontinue Perphenazine prn Latuda 20 mg hs. 04/27/22: Continue current plan. Preparing for family meeting 04/28. Encouraged Sandi to make a brief outline to refer to in case of distraction/anxiety during the meeting. 04/28/22: Continue current plan. Latuda dosage timing change to 1700 Patient educated on: therapeutic strategies Guardian/Caregiver educated on: therapeutic strategies Informed Consent: understands Reason for contiued inpatient stay Substantial Risk for: harm to self, inability to function and rapid decompensation Time Spent With Patient Time: Total time managing care of this patient today 60 minutes.
[2022-04-28 08:55] VITALS: BP 121/74; PULSE 84; RESP 16; TEMP 36.2; O2SAT 98
[2022-04-28] MEDS: Amphetamine Mixed Salts 10 MG TABLET PO (13:57)
[2022-04-28] MEDS: Lurasidone HCl 20 MG TABLET PO (18:44)
[2022-04-28 21:20] VITALS: BP 143/79; PULSE 78; TEMP 36; O2SAT 98
[2022-04-28] MEDS: OLANZapine 10 MG TABLET PO (21:22)
[2022-04-28] MEDS: PRAZOSIN HCL 14 MG PO (21:22)
[2022-04-28] MEDS: traZODone HCL 100 MG TABLET 300 MG PO (21:22)
[2022-04-28] MEDS: hydrOXYzine HCL 25 MG TABLET PO (21:23)
[2022-04-28] MEDS: Melatonin 3 MG TABLET 12 MG PO (21:23)
[2022-04-28] MEDS: OLANZapine 5 MG TABLET PO (21:23)
[2022-04-29] MEDS: Docusate Sodium 100 MG CAPSULE PO ×2 (08:57→20:52)
[2022-04-29] MEDS: ALPRAZolam 0.5 MG TABLET 1 MG PO ×3 (08:57→21:04)
[2022-04-29] MEDS: Dextroamphetamine/Amphetamine XR 10 MG CAP.ER.24H 30 MG PO (08:58)
[2022-04-29] MEDS: Lithium Carbonate ER 300 MG TABLET.ER 600 MG PO ×2 (08:58→20:54)
[2022-04-29] MEDS: Cholecalciferol (Vitamin D3) 25 MCG TABLET 50 MCG PO (08:58)
[2022-04-29 09:03] VITALS: BP 123/71; PULSE 93; RESP 16; TEMP 36.3; O2SAT 96
[2022-04-29] MEDS: bisacodyL 5 MG TABLET.DR 10 MG PO (09:16)
[2022-04-29] MEDS: Amphetamine Mixed Salts 10 MG TABLET PO (13:25)
[2022-04-29] MEDS: polyethylene glycoL 3350 17 GM POWD.PACK PO (13:25)
[2022-04-29] MEDS: OLANZapine 5 MG TABLET PO (13:25)
--- NOTE | 2022-04-29 14:47 | HO.PSYCHPN ---
Subjective Subjective Date of Service: 04/29/22 Reason For Visit: Depression SI PTSD Subjective Notes: Conditional Voluntary Healthcare Proxy: No Guardianship: No Medical Problems Affecting Mental Status: No Interim History: Meeting with pt and Carlita SOW. Pt reports persistent intrusive thoughts. States by history they had times when these were less prominent however during this episode of illness they have been persistent. Discussed placing Latuda on hold, discontinuing Olanzapine and initiating Chlorpromazine 100 HS and 100 QD prn. They agree this is worth a trial. Reflective of family meeting-they feel time will tell in making an assessment of how effective this meeting was. Mother to visit on 05/02 per pt report. Medication Compliance: Yes Side effects from medications: No Attending Groups: Yes Review of Systems Acute medical concerns: No Medical Review of Systems: unchanged Mental Status Exam Mental Status Exam Patient Appearance: Appropriate Patient Orientation: Person, Place, Time and Situation Level of Consciousness: Alert Patient Behavior: Appropriate, Talkative, Cooperative and Good Eye Contact Mood Description: Depressed Affect Description: Flat Patient Cognition Impaired: No Ability to Follow Directions: Good Speech Pattern: Spontaneous Speech Memory Description: Intact Hallucinations: None Delusions: Not Present Perceptual Disturbances: Depersonalization and Derealization Thought Process: Distracted and Rumination Thought Content: positive for Perseveration and positive for Suicidal Ideation Depressive Symptoms: Increased Anxiety, Hopelessness, Feelings of Guilt, Increased Fatigue, Loss of Energy and Difficulty Concentrating Judgement: Fair Diagnostics Vital Signs (24Hr): Vital Signs - 24 hr 04/28/22 21:20 04/29/22 09:03 Temperature 96.8 F 97.4 F Pulse Rate 78 93 Respiratory Rate 16 Blood Pressure 143/79 H 123/71 Pulse Oximetry 98 96 Oxygen Delivery Method Room Air Room Air BMI result Body Mass Index 40.3 Labs 03/21/22 04:36 04/23/22 08:16 Medications Medications Current Medications Acetaminophen (Acetaminophen 325 Mg Tablet) 650 mg PO Q6H PRN PRN Reason: Headache/Pain Mild Scale (1-3) Last Admin: 04/03/22 16:34 Dose: 650 mg Al Hydroxide/Mg Hydroxide (Magnesium Hydrox/Alum Hydrox 30 Ml Oral.Susp) 30 ml PO Q6H PRN PRN Reason: Heartburn/Nausea Last Admin: 04/25/22 10:25 Dose: 30 ml Alprazolam (Alprazolam 0.5 Mg Tablet) 1 mg PO QID PRN PRN Reason: Anxiety Last Admin: 04/29/22 13:25 Dose: 1 mg Amphetamine/Dextroamphetamine (Dextroamphetamine/Amphetamine Xr 10 Mg Cap.Er.24h) 30 mg PO DAILY COUNT [facility]CLUDES [facility] Last Admin: 04/29/22 08:58 Dose: 30 mg Amphetamine/Dextroamphetamine (Amphetamine Mixed Salts 10 Mg Tablet) 10 mg PO 1400 COUNT [facility]CLUDES [facility] Last Admin: 04/29/22 13:25 Dose: 10 mg Benzocaine (Throat Lozenge, Medicated Lozenge) 1 lozenge MUCOUS MEM Q2H PRN PRN Reason: Sore Throat Last Admin: 04/03/22 10:20 Dose: 1 lozenge Bisacodyl (Bisacodyl 5 Mg Tablet.Dr) 10 mg PO DAILY PRN PRN Reason: Constipation Last Admin: 04/29/22 09:16 Dose: 10 mg Chlorpromazine HCl (Chlorpromazine Hcl 100 Mg Tablet) 100 mg PO BEDTIME COUNT INCLUDES [facility] Chlorpromazine HCl (Chlorpromazine Hcl 100 Mg Tablet) 100 mg PO DAILY PRN PRN Reason: intrusive thoughts Diphenhydramine HCl (Diphenhydramine Hcl 25 Mg Capsule) 50 mg PO BEDTIME PRN PRN Reason: Insomnia Last Admin: 04/24/22 22:00 Dose: 50 mg Docusate Sodium (Docusate Sodium 100 Mg Capsule) 100 mg PO BID COUNT [facility]CLUDES [facility] Last Admin: 04/29/22 08:57 Dose: 100 mg Guaifenesin/Dextromethorphan (Guaifenesin Dm 600/30 1 Tab Tab.Er.12h) 1 tab PO BID PRN PRN Reason: cough, congestion Last Admin: 04/13/22 09:11 Dose: 1 tab Hydroxyzine HCl (Hydroxyzine Hcl 25 Mg Tablet) 25 mg PO Q6H PRN PRN Reason: Anxiety Last Admin: 04/28/22 21:23 Dose: 25 mg Lactulose (Lactulose 20 Gm/30 Ml Solution) 10 gm PO DAILY PRN PRN Reason: Constipation Last Admin: 04/25/22 18:28 Dose: 10 gm [place] Carbonate ([place] Carbonate Er 300 Mg Tablet.Er) 600 mg PO BID COUNT INCLUDES [facility] Last Admin: 04/29/22 08:58 Dose: 600 mg Loperamide HCl (Loperamide Hcl 2 Mg Capsule) 4 mg PO Q4H PRN PRN Reason: Diarrhea Last Admin: 04/06/22 16:14 Dose: 4 mg Magnesium Hydroxide (Milk Of Magnesia 30 Ml Oral.Susp) 30 ml PO DAILY PRN PRN Reason: Constipation Last Admin: 03/25/22 11:00 Dose: 30 ml Melatonin (Melatonin 3 Mg Tablet) 12 mg PO BEDTIME COUNT [facility]CLUDES [facility] Last Admin: 04/28/22 21:23 Dose: 12 mg Multi-Ingred Medicated Throat [place] (Throat [place], Medicated 177 Ml Bottle) 1 spray MUCOUS MEM Q2H PRN PRN Reason: Sore Throat Last Admin: 04/08/22 08:25 Dose: 1 spray Nicotine (Nicotine 14 Mg Patch.Td24) 14 mg TRANSDERMA DAILY PRN PRN Reason: nicotine craving Nicotine Polacrilex (Nicotine Polacrilex 2 Mg Gum) 2 mg BUCCAL Q2H PRN PRN Reason: nicotine withdrawal Last Admin: 03/29/22 09:32 Dose: 2 mg Patient Own Medication ( Desvenlafaxine 100 Mg Er Tablet) 1 tab PO DAILY COUNT INCLUDES [facility] Last Admin: 04/29/22 08:57 Dose: 1 tab Pt Own (Super B (Complex)) 1 tab PO DAILY COUNT INCLUDES [facility] Last Admin: 04/29/22 08:57 Dose: 1 tab Polyethylene Glycol (Polyethylene Glycol 3350 17 Gm Powd.Pack) 17 gm PO DAILY PRN PRN Reason: constipation Last Admin: 04/29/22 13:25 Dose: 17 gm Prazosin HCl 10 mg/ Prazosin (HCl 4 mg) 14 mg PO BEDTIME COUNT INCLUDES [facility] Last Admin: 04/28/22 21:22 Dose: 14 mg Saliva Substitute (Dry Mouth [place] 60 Ml [place]) 1 spray MUCOUS MEM Q2H PRN PRN Reason: Dry Mouth Trazodone HCl (Trazodone Hcl 100 Mg Tablet) 300 mg PO BEDTIME COUNT INCLUDES [facility] Last Admin: 04/28/22 21:22 Dose: 300 mg Vitamin D (Cholecalciferol (Vitamin D3) 25 Mcg Tablet) 50 mcg PO DAILY COUNT INCLUDES [facility] Last Admin: 04/29/22 08:58 Dose: 50 mcg Allergies Allergies Allergy/AdvReac Type Severity Reaction Status Date / Time Sulfa (Sulfonamide Allergy Unknown HIVES Verified 03/15/21 14:13 Antibiotics) [SULFA (SULFONAMIDE ANTIBIOTICS)] sulfamethoxazole Allergy Unknown HIVES Verified 03/15/21 14:13 [From BACTRIM] trimethoprim [From BACTRIM] Allergy Unknown HIVES Verified 03/15/21 14:13 oseltamivir [From Tamiflu] AdvReac Sensation Verified 09/29/21 11:20 of bugs crawling on skin. Assessment & Plan Assessment & Plan (1) PTSD (post-traumatic stress disorder): Status: Acute Code(s): F43.10 - Post-traumatic stress disorder, unspecified (2) MDD (major depressive disorder), recurrent severe, without psychosis: Status: Acute Code(s): F33.2 - Major depressive disorder, recurrent severe without psychotic features (3) Suicidal ideation: Status: Acute Code(s): R45.851 - Suicidal ideations Plan 36 yo non binary, prefers they/them pronouns with SI. 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 Several serious precipitants-holidays, anniversary of the loss of a child they planned to co-parent and therapist moved from the area at the end of Feb 2022 however pt will be continuing via [employer]. Plan: Message left for Nathen Mesa. Pt wanting to change Pristiq, possibly re-start Olanzapine. We would like his input if possible. Pristiq ordered from [employer] as it is not on formulary Collateral contact as needed Assist pt to re-establish safety. 03/24/22: Continue current plan. 03/25/22: Olanzapine prn 03/26/22: Lactulose for constipation Safety discussion with pt. Increase in anxiety after her ER experience. Working with team to manage her impulsivity. 03/27: Continue current regimen and plans with increase of trazodone to 300 mg 03/28: Continue current plans and regimen. 03/29: Continue current regimen and plans. A 3 day notice has been placed 03/30/22: On 03/31, Increase Adderall to 30 mg XR q a.m. 04/01/22: Increase Melatonin to 11 mg HS. 04/02/22: Continue current regime Mucinex DM prn 04/03/22: Azithromycin 500 mg today, 250 mg x 4 days thereafter 04/04/22: Continue current regime 04/05/22: IModium prn for diarrhea Monitor for increasing risk of self harm 04/06/22: Resolving physical sx of COVID Increasing emotional sx, feeling tired, worn, drained. 04/07/22: Discontinue Ibuprofen BMP, Li, TSH 04/08/22 Olanzapine 5 mg prn to alternate with 10 mg for SIBS, SI, impulsivity 04/08 continue tx. 04/09 continue tx. 04/10 continue tx. 04/11 continue tx. -monitor for sinus discomfort -check lithium level tomorrow morning -remain on one-to-one 04/12 pt would like to keep lithium level at 0.7, currently at 1.0, will decrease morning dose to 450mg po daily and keep 600mg po qhs. continue one to one. 04/13 continue tx. 04/14 continue tx, re check lithium level next . 04/15 ocontinue tx. 04/16 add benadryl 50mg po qhs one time but if helpful may want to schedule. 04/17 continue current treatment regimen with Benadryl q.h.s. ?Discussed case with nursing; met with patient; reviewed vitals and mildly tachycardic but otherwise WNL 04/18 Discussed case with nursing; met with patient; reviewed vitals and mildly hypertensive. Remain on one-to-one as patient reports active SI 04/21/22- Continue current plan Possible family meeting 04/23. 04/22/22- Family meeting 04/28 1pm Perphenazine 4 mg bid prn dissociative sx, anxiety to assist with grounding 04/24/22- Continue current regime 04/26/22-Continue current plan. Preparing for family meeting 04/28. Discontinue Perphenazine prn Latuda 20 mg hs. 04/27/22: Continue current plan. Preparing for family meeting 04/28. Encouraged Sandi to make a brief outline to refer to in case of distraction/anxiety during the meeting. 04/29/22: Discontinue Olanzapine Discontinue Latuda Chlorpromazaine 100 mg HS and daily prn Patient educated on: medication risk/benefits Informed Consent: understands Reason for contiued inpatient stay Substantial Risk for: harm to self and rapid decompensation Time Spent With Patient Time: Total time managing care of this patient today 30 minutes.
[2022-04-29] MEDS: chlorproMAZINE HCl 100 MG TABLET PO ×2 (16:24→20:53)
[2022-04-29 17:48] VITALS: BP 137/79; PULSE 85; RESP 16; TEMP 36.6; O2SAT 98
[2022-04-29] MEDS: PRAZOSIN HCL 14 MG PO (20:52)
[2022-04-29] MEDS: traZODone HCL 100 MG TABLET 300 MG PO (20:53)
[2022-04-29] MEDS: Melatonin 3 MG TABLET 12 MG PO (20:53)
[2022-04-29] MEDS: hydrOXYzine HCL 25 MG TABLET PO (21:05)
[2022-04-30] MEDS: Cholecalciferol (Vitamin D3) 25 MCG TABLET 50 MCG PO (08:51)
[2022-04-30] MEDS: Dextroamphetamine/Amphetamine XR 10 MG CAP.ER.24H 30 MG PO (08:51)
[2022-04-30] MEDS: Docusate Sodium 100 MG CAPSULE PO ×2 (08:51→20:44)
[2022-04-30] MEDS: Lithium Carbonate ER 300 MG TABLET.ER 600 MG PO ×2 (08:51→20:44)
[2022-04-30] MEDS: ALPRAZolam 0.5 MG TABLET 1 MG PO ×3 (08:52→21:29)
[2022-04-30 08:58] VITALS: BP 130/76; PULSE 92; RESP 16; TEMP 36.3; O2SAT 96
[2022-04-30] MEDS: polyethylene glycoL 3350 17 GM POWD.PACK PO (09:49)
[2022-04-30] MEDS: bisacodyL 5 MG TABLET.DR 10 MG PO (09:49)
[2022-04-30] MEDS: chlorproMAZINE HCl 100 MG TABLET PO (12:14)
[2022-04-30] MEDS: Amphetamine Mixed Salts 10 MG TABLET PO (14:02)
--- NOTE | 2022-04-30 16:37 | HO.PSYCHPN ---
Subjective Subjective Date of Service: 04/30/22 Reason For Visit: Depression SI PTSD Subjective Notes: Conditional Voluntary Healthcare Proxy: No Guardianship: No Medical Problems Affecting Mental Status: No Interim History: Reports constipation. Discussed with pharmacy. Pt has all available agents in current use. Linzess is not available. Received a message from OP Prescriber Nathen Rock [phone]/ [phone]. He is away until 05/03 however will offer his input regarding pts meds. Review of chlorpromazine. Pt reports no real effect. Discussed dosage increase to 200 mg which we will trial. Intrusive thoughts present, more intermittent, reports a reasonable sleep and SI which is managable today, described as in and out . Medication Compliance: Yes Side effects from medications: No Attending Groups: Yes Review of Systems Acute medical concerns: No Medical Review of Systems: unchanged Mental Status Exam Mental Status Exam Patient Appearance: Appropriate Patient Orientation: Person, Place, Time and Situation Level of Consciousness: Alert Patient Behavior: Appropriate, Talkative, Cooperative and Good Eye Contact Mood Description: Depressed Affect Description: Flat Patient Cognition Impaired: No Ability to Follow Directions: Good Speech Pattern: Spontaneous Speech Memory Description: Intact Hallucinations: None Delusions: Not Present Perceptual Disturbances: Depersonalization and Derealization Thought Process: Distracted and Rumination Thought Content: positive for Perseveration and positive for Suicidal Ideation Depressive Symptoms: Increased Anxiety, Hopelessness, Feelings of Guilt, Increased Fatigue, Loss of Energy and Difficulty Concentrating Judgement: Fair Diagnostics Vital Signs (24Hr): Vital Signs - 24 hr 04/29/22 17:48 04/30/22 08:58 Temperature 97.8 F 97.3 F Pulse Rate 85 92 Respiratory Rate 16 16 Blood Pressure 137/79 130/76 Pulse Oximetry 98 96 Oxygen Delivery Method Room Air Room Air BMI result Body Mass Index 40.3 Labs 03/21/22 04:36 04/23/22 08:16 Medications Medications Current Medications Acetaminophen (Acetaminophen 325 Mg Tablet) 650 mg PO Q6H PRN PRN Reason: Headache/Pain Mild Scale (1-3) Last Admin: 04/03/22 16:34 Dose: 650 mg Al Hydroxide/Mg Hydroxide (Magnesium Hydrox/Alum Hydrox 30 Ml Oral.Susp) 30 ml PO Q6H PRN PRN Reason: Heartburn/Nausea Last Admin: 04/25/22 10:25 Dose: 30 ml Alprazolam (Alprazolam 0.5 Mg Tablet) 1 mg PO QID PRN PRN Reason: Anxiety Last Admin: 04/30/22 14:02 Dose: 1 mg Amphetamine/Dextroamphetamine (Dextroamphetamine/Amphetamine Xr 10 Mg Cap.Er.24h) 30 mg PO DAILY [facility] Last Admin: 04/30/22 08:51 Dose: 30 mg Amphetamine/Dextroamphetamine (Amphetamine Mixed Salts 10 Mg Tablet) 10 mg PO 1400 [facility] Last Admin: 04/30/22 14:02 Dose: 10 mg Benzocaine (Throat Lozenge, Medicated Lozenge) 1 lozenge MUCOUS MEM Q2H PRN PRN Reason: Sore Throat Last Admin: 04/03/22 10:20 Dose: 1 lozenge Bisacodyl (Bisacodyl 5 Mg Tablet.Dr) 10 mg PO DAILY PRN PRN Reason: Constipation Last Admin: 04/30/22 09:49 Dose: 10 mg Chlorpromazine HCl (Chlorpromazine Hcl 100 Mg Tablet) 100 mg PO BEDTIME [facility] Last Admin: 04/29/22 20:53 Dose: 100 mg Chlorpromazine HCl (Chlorpromazine Hcl 100 Mg Tablet) 100 mg PO DAILY PRN PRN Reason: intrusive thoughts Last Admin: 04/30/22 12:14 Dose: 100 mg Diphenhydramine HCl (Diphenhydramine Hcl 25 Mg Capsule) 50 mg PO BEDTIME PRN PRN Reason: Insomnia Last Admin: 04/24/22 22:00 Dose: 50 mg Docusate Sodium (Docusate Sodium 100 Mg Capsule) 100 mg PO BID [facility] Last Admin: 04/30/22 08:51 Dose: 100 mg Guaifenesin/Dextromethorphan (Guaifenesin Dm 600/30 1 Tab Tab.Er.12h) 1 tab PO BID PRN PRN Reason: cough, congestion Last Admin: 04/13/22 09:11 Dose: 1 tab Hydroxyzine HCl (Hydroxyzine Hcl 25 Mg Tablet) 25 mg PO Q6H PRN PRN Reason: Anxiety Last Admin: 04/29/22 21:05 Dose: 25 mg Lactulose (Lactulose 20 Gm/30 Ml Solution) 10 gm PO DAILY PRN PRN Reason: Constipation Last Admin: 04/25/22 18:28 Dose: 10 gm [place] Carbonate ([place] Carbonate Er 300 Mg Tablet.Er) 600 mg PO BID [facility] Last Admin: 04/30/22 08:51 Dose: 600 mg Loperamide HCl (Loperamide Hcl 2 Mg Capsule) 4 mg PO Q4H PRN PRN Reason: Diarrhea Last Admin: 04/06/22 16:14 Dose: 4 mg Magnesium Hydroxide (Milk Of Magnesia 30 Ml Oral.Susp) 30 ml PO DAILY PRN PRN Reason: Constipation Last Admin: 03/25/22 11:00 Dose: 30 ml Melatonin (Melatonin 3 Mg Tablet) 12 mg PO BEDTIME [facility] Last Admin: 04/29/22 20:53 Dose: 12 mg Multi-Ingred Medicated Throat [place] (Throat [place], Medicated 177 Ml Bottle) 1 spray MUCOUS MEM Q2H PRN PRN Reason: Sore Throat Last Admin: 04/08/22 08:25 Dose: 1 spray Nicotine (Nicotine 14 Mg Patch.Td24) 14 mg TRANSDERMA DAILY PRN PRN Reason: nicotine craving Nicotine Polacrilex (Nicotine Polacrilex 2 Mg Gum) 2 mg BUCCAL Q2H PRN PRN Reason: nicotine withdrawal Last Admin: 03/29/22 09:32 Dose: 2 mg Patient Own Medication ( Desvenlafaxine 100 Mg Er Tablet) 1 tab PO DAILY [facility] Last Admin: 04/30/22 08:51 Dose: 1 tab Pt Own (Super B (Complex)) 1 tab PO DAILY [facility] Last Admin: 04/30/22 08:51 Dose: 1 tab Polyethylene Glycol (Polyethylene Glycol 3350 17 Gm Powd.Pack) 17 gm PO DAILY PRN PRN Reason: constipation Last Admin: 04/30/22 09:49 Dose: 17 gm Prazosin HCl 10 mg/ Prazosin (HCl 4 mg) 14 mg PO BEDTIME [facility] Last Admin: 04/29/22 20:52 Dose: 14 mg Saliva Substitute (Dry Mouth [place] 60 Ml [place]) 1 spray MUCOUS MEM Q2H PRN PRN Reason: Dry Mouth Trazodone HCl (Trazodone Hcl 100 Mg Tablet) 300 mg PO BEDTIME [facility] Last Admin: 04/29/22 20:53 Dose: 300 mg Vitamin D (Cholecalciferol (Vitamin D3) 25 Mcg Tablet) 50 mcg PO DAILY [facility] Last Admin: 04/30/22 08:51 Dose: 50 mcg Allergies Allergies Allergy/AdvReac Type Severity Reaction Status Date / Time Sulfa (Sulfonamide Allergy Unknown HIVES Verified 03/15/21 14:13 Antibiotics) [SULFA (SULFONAMIDE ANTIBIOTICS)] sulfamethoxazole Allergy Unknown HIVES Verified 03/15/21 14:13 [From BACTRIM] trimethoprim [From BACTRIM] Allergy Unknown HIVES Verified 03/15/21 14:13 oseltamivir [From Tamiflu] AdvReac Sensation Verified 09/29/21 11:20 of bugs crawling on skin. Assessment & Plan Assessment & Plan (1) PTSD (post-traumatic stress disorder): Status: Acute Code(s): F43.10 - Post-traumatic stress disorder, unspecified (2) MDD (major depressive disorder), recurrent severe, without psychosis: Status: Acute Code(s): F33.2 - Major depressive disorder, recurrent severe without psychotic features (3) Suicidal ideation: Status: Acute Code(s): R45.851 - Suicidal ideations Plan 36 yo non binary, prefers they/them pronouns with SI. 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 Several serious precipitants-holidays, anniversary of the loss of a child they planned to co-parent and therapist moved from the area at the end of Feb 2022 however pt will be continuing via [employer]. Plan: Message left for Nathen Mesa. Pt wanting to change Pristiq, possibly re-start Olanzapine. We would like his input if possible. Pristiq ordered from [employer] as it is not on formulary Collateral contact as needed Assist pt to re-establish safety. 03/24/22: Continue current plan. 03/25/22: Olanzapine prn 03/26/22: Lactulose for constipation Safety discussion with pt. Increase in anxiety after her ER experience. Working with team to manage her impulsivity. 03/27: Continue current regimen and plans with increase of trazodone to 300 mg 03/28: Continue current plans and regimen. 03/29: Continue current regimen and plans. A 3 day notice has been placed 03/30/22: On 03/31, Increase Adderall to 30 mg XR q a.m. 04/01/22: Increase Melatonin to 11 mg HS. 04/02/22: Continue current regime Mucinex DM prn 04/03/22: Azithromycin 500 mg today, 250 mg x 4 days thereafter 04/04/22: Continue current regime 04/05/22: IModium prn for diarrhea Monitor for increasing risk of self harm 04/06/22: Resolving physical sx of COVID Increasing emotional sx, feeling tired, worn, drained. 04/07/22: Discontinue Ibuprofen BMP, Li, TSH 04/08/22 Olanzapine 5 mg prn to alternate with 10 mg for SIBS, SI, impulsivity 04/08 continue tx. 04/09 continue tx. 04/10 continue tx. 04/11 continue tx. -monitor for sinus discomfort -check lithium level tomorrow morning -remain on one-to-one 04/12 pt would like to keep lithium level at 0.7, currently at 1.0, will decrease morning dose to 450mg po daily and keep 600mg po qhs. continue one to one. 04/13 continue tx. 04/14 continue tx, re check lithium level next . 04/15 ocontinue tx. 04/16 add benadryl 50mg po qhs one time but if helpful may want to schedule. 04/17 continue current treatment regimen with Benadryl q.h.s. ?Discussed case with nursing; met with patient; reviewed vitals and mildly tachycardic but otherwise WNL 04/18 Discussed case with nursing; met with patient; reviewed vitals and mildly hypertensive. Remain on one-to-one as patient reports active SI 04/21/22- Continue current plan Possible family meeting 04/23. 04/22/22- Family meeting 04/28 1pm Perphenazine 4 mg bid prn dissociative sx, anxiety to assist with grounding 04/24/22- Continue current regime 04/26/22-Continue current plan. Preparing for family meeting 04/28. Discontinue Perphenazine prn Latuda 20 mg hs. 04/27/22: Continue current plan. Preparing for family meeting 04/28. Encouraged Sandi to make a brief outline to refer to in case of distraction/anxiety during the meeting. 04/29/22: Discontinue Olanzapine Discontinue Latuda Chlorpromazaine 100 mg HS and daily prn 04/30/22: Increase Chlorpromazine to 200 mg HS and daily prn. Patient educated on: medication risk/benefits Informed Consent: understands Reason for contiued inpatient stay Substantial Risk for: harm to self, inability to function and rapid decompensation Time Spent With Patient Time: Total time managing care of this patient today 15 minutes.
[2022-04-30] MEDS: traZODone HCL 100 MG TABLET 300 MG PO (20:43)
[2022-04-30] MEDS: PRAZOSIN HCL 14 MG PO (20:44)
[2022-04-30] MEDS: chlorproMAZINE HCl 100 MG TABLET 200 MG PO (20:44)
[2022-04-30] MEDS: Melatonin 3 MG TABLET 12 MG PO (20:45)
[2022-04-30] MEDS: hydrOXYzine HCL 25 MG TABLET PO (21:29)
[2022-04-30 21:49] VITALS: BP 122/68; PULSE 87; RESP 16; TEMP 36.4; O2SAT 98
[2022-05-01] MEDS: Docusate Sodium 100 MG CAPSULE PO ×2 (09:11→21:03)
[2022-05-01] MEDS: Lithium Carbonate ER 300 MG TABLET.ER 600 MG PO ×2 (09:11→21:03)
[2022-05-01] MEDS: Cholecalciferol (Vitamin D3) 25 MCG TABLET 50 MCG PO (09:11)
[2022-05-01] MEDS: ALPRAZolam 0.5 MG TABLET 1 MG PO ×2 (09:11→21:03)
[2022-05-01] MEDS: Dextroamphetamine/Amphetamine XR 10 MG CAP.ER.24H 30 MG PO (09:11)
[2022-05-01 09:14] VITALS: BP 124/72; PULSE 96; RESP 18; TEMP 36.2; O2SAT 96
[2022-05-01] MEDS: Lactulose 20 GM/30 ML SOLUTION 10 GM PO (10:00)
--- NOTE | 2022-05-01 11:50 | HO.PSYCHPN ---
Subjective Subjective Date of Service: 05/01/22 Reason For Visit: Depression SI PTSD Interim History: Patient seen and discussed with RN. Patient reports they have been doing well. Reports Thorazine has been helpful for anxiety and decrease in SI is noted. Reports some increased tiredness but willing to continue with Thorazine. Denies suicidal intent. Continues on 1:1. Asked for flonase. Review of Systems Review of Systems Constitutional : No Weight loss, No Fever, No Chills, No Night Sweats, No Fatigue, No Malaise ENT/Mouth : No Hearing loss, No Ear Pain, No Nasal Congestion, No Sinus Pain, No Hoarseness, No sore throat, No Rhinorrhea, No Swallowing Difficulty Eyes: No Eye Pain, No Swelling, No Redness, No Foreign Body, No Discharge, No Vision Changes Cardiovascular : No Chest Pain, No SOB, No Dyspnea on Exertion, No Orthopnea, No Edema, No Palpitations Respiratory : No Cough, No Sputum, No Wheezing, No Smoke Exposure, No Dyspnea Gastrointestinal : No Nausea, No Vomiting, No Diarrhea, No Constipation, No abdominal Pain, No Hematochezia, No Melena Genitourinary : no irregular bleeding, No Dysuria, No Urinary Frequency, No Hematuria, No Urinary Incontinence, No Urgency, No Flank Pain, No Urinary Flow Changes, No Hesitancy Musculoskeletal : No joint pain, No Myalgias, No Joint Swelling Skin : No Skin Lesions, No rash Neuro : No Weakness, No Numbness, No Paresthesias, No Loss of Consciousness, No Dizziness, No Headache Psych : Complaining of severe anxiety and suicidal ideation, no homicidal ideation Heme/Lymph: No Bruising, No Bleeding,No Lymphadenopathy Endocrine : No Polyuria, No Polydipsia, No Temperature Intolerance Yes all other systems are reviewed and are negative Psychiatric: Reports anxiety, Reports depression, Reports difficulty concentrating, Reports hopelessness, Reports anhedonia and Reports suicidal ideation Mental Status Exam Mental Status Exam Narrative: NAD. Normally ambulation. Motor activity calm. Patient Appearance: Appropriate Patient Orientation: Person, Place, Time and Situation Level of Consciousness: Alert Patient Behavior: Appropriate, Talkative, Cooperative and Good Eye Contact Mood Description: Depressed Affect Description: Flat Patient Cognition Impaired: No Ability to Follow Directions: Good Speech Pattern: Spontaneous Speech Memory Description: Intact Diagnostics Vital Signs (24Hr): Vital Signs - 24 hr 05/01/22 09:14 05/01/22 18:00 Temperature 97.2 F 97.7 F Pulse Rate 96 98 Respiratory Rate 18 20 Blood Pressure 124/72 122/61 Pulse Oximetry 96 98 Oxygen Delivery Method Room Air Room Air BMI result Body Mass Index 40.3 Labs 03/21/22 04:36 04/23/22 08:16 Medications Medications Current Medications Acetaminophen (Acetaminophen 325 Mg Tablet) 650 mg PO Q6H PRN PRN Reason: Headache/Pain Mild Scale (1-3) Last Admin: 04/03/22 16:34 Dose: 650 mg Al Hydroxide/Mg Hydroxide (Magnesium Hydrox/Alum Hydrox 30 Ml Oral.Susp) 30 ml PO Q6H PRN PRN Reason: Heartburn/Nausea Last Admin: 04/25/22 10:25 Dose: 30 ml Alprazolam (Alprazolam 0.5 Mg Tablet) 1 mg PO QID PRN PRN Reason: Anxiety Last Admin: 05/01/22 21:03 Dose: 1 mg Amphetamine/Dextroamphetamine (Dextroamphetamine/Amphetamine Xr 10 Mg Cap.Er.24h) 30 mg PO DAILY [facility] Last Admin: 05/01/22 09:11 Dose: 30 mg Amphetamine/Dextroamphetamine (Amphetamine Mixed Salts 10 Mg Tablet) 10 mg PO 1400 [facility] Last Admin: 05/01/22 13:26 Dose: 10 mg Benzocaine (Throat Lozenge, Medicated Lozenge) 1 lozenge MUCOUS MEM Q2H PRN PRN Reason: Sore Throat Last Admin: 04/03/22 10:20 Dose: 1 lozenge Bisacodyl (Bisacodyl 5 Mg Tablet.Dr) 10 mg PO DAILY PRN PRN Reason: Constipation Last Admin: 04/30/22 09:49 Dose: 10 mg Chlorpromazine HCl (Chlorpromazine Hcl 100 Mg Tablet) 200 mg PO BEDTIME [facility] Last Admin: 05/01/22 21:03 Dose: 200 mg Chlorpromazine HCl (Chlorpromazine Hcl 100 Mg Tablet) 200 mg PO DAILY PRN PRN Reason: intrusive thoughts Last Admin: 05/01/22 13:26 Dose: 200 mg Diphenhydramine HCl (Diphenhydramine Hcl 25 Mg Capsule) 50 mg PO BEDTIME PRN PRN Reason: Insomnia Last Admin: 04/24/22 22:00 Dose: 50 mg Docusate Sodium (Docusate Sodium 100 Mg Capsule) 100 mg PO BID [facility] Last Admin: 05/01/22 21:03 Dose: 100 mg Guaifenesin/Dextromethorphan (Guaifenesin Dm 600/30 1 Tab Tab.Er.12h) 1 tab PO BID PRN PRN Reason: cough, congestion Last Admin: 04/13/22 09:11 Dose: 1 tab Hydroxyzine HCl (Hydroxyzine Hcl 25 Mg Tablet) 25 mg PO Q6H PRN PRN Reason: Anxiety Last Admin: 04/30/22 21:29 Dose: 25 mg Lactulose (Lactulose 20 Gm/30 Ml Solution) 10 gm PO DAILY PRN PRN Reason: Constipation Last Admin: 05/01/22 10:00 Dose: 10 gm [place] Carbonate ([place] Carbonate Er 300 Mg Tablet.Er) 600 mg PO BID [facility] Last Admin: 05/01/22 21:03 Dose: 600 mg Loperamide HCl (Loperamide Hcl 2 Mg Capsule) 4 mg PO Q4H PRN PRN Reason: Diarrhea Last Admin: 04/06/22 16:14 Dose: 4 mg Magnesium Hydroxide (Milk Of Magnesia 30 Ml Oral.Susp) 30 ml PO DAILY PRN PRN Reason: Constipation Last Admin: 03/25/22 11:00 Dose: 30 ml Melatonin (Melatonin 3 Mg Tablet) 12 mg PO BEDTIME [facility] Last Admin: 05/01/22 21:01 Dose: 12 mg Multi-Ingred Medicated Throat [place] (Throat [place], Medicated 177 Ml Bottle) 1 spray MUCOUS MEM Q2H PRN PRN Reason: Sore Throat Last Admin: 04/08/22 08:25 Dose: 1 spray Nicotine (Nicotine 14 Mg Patch.Td24) 14 mg TRANSDERMA DAILY PRN PRN Reason: nicotine craving Nicotine Polacrilex (Nicotine Polacrilex 2 Mg Gum) 2 mg BUCCAL Q2H PRN PRN Reason: nicotine withdrawal Last Admin: 03/29/22 09:32 Dose: 2 mg Patient Own Medication ( Desvenlafaxine 100 Mg Er Tablet) 1 tab PO DAILY [facility] Last Admin: 05/01/22 09:10 Dose: 1 tab Pt Own (Super B (Complex)) 1 tab PO DAILY [facility] Last Admin: 05/01/22 09:10 Dose: 1 tab Polyethylene Glycol (Polyethylene Glycol 3350 17 Gm Powd.Pack) 17 gm PO DAILY PRN PRN Reason: constipation Last Admin: 04/30/22 09:49 Dose: 17 gm Prazosin HCl 10 mg/ Prazosin (HCl 4 mg) 14 mg PO BEDTIME [facility] Last Admin: 05/01/22 21:01 Dose: 14 mg Saliva Substitute (Dry Mouth [place] 60 Ml [place]) 1 spray MUCOUS MEM Q2H PRN PRN Reason: Dry Mouth Trazodone HCl (Trazodone Hcl 100 Mg Tablet) 300 mg PO BEDTIME [facility] Last Admin: 05/01/22 21:02 Dose: 300 mg Vitamin D (Cholecalciferol (Vitamin D3) 25 Mcg Tablet) 50 mcg PO DAILY [facility] Last Admin: 05/01/22 09:11 Dose: 50 mcg Allergies Allergies Allergy/AdvReac Type Severity Reaction Status Date / Time Sulfa (Sulfonamide Allergy Unknown HIVES Verified 03/15/21 14:13 Antibiotics) [SULFA (SULFONAMIDE ANTIBIOTICS)] sulfamethoxazole Allergy Unknown HIVES Verified 03/15/21 14:13 [From BACTRIM] trimethoprim [From BACTRIM] Allergy Unknown HIVES Verified 03/15/21 14:13 oseltamivir [From Tamiflu] AdvReac Sensation Verified 09/29/21 11:20 of bugs crawling on skin. Assessment & Plan Assessment & Plan (1) PTSD (post-traumatic stress disorder): Status: Acute Code(s): F43.10 - Post-traumatic stress disorder, unspecified (2) MDD (major depressive disorder), recurrent severe, without psychosis: Status: Acute Code(s): F33.2 - Major depressive disorder, recurrent severe without psychotic features (3) Suicidal ideation: Status: Acute Code(s): R45.851 - Suicidal ideations Plan 36 yo non binary, prefers they/them pronouns with SI. 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 Several serious precipitants-holidays, anniversary of the loss of a child they planned to co-parent and therapist moved from the area at the end of Feb 2022 however pt will be continuing via tele[employer]. Plan: Message left for Nathen Mesa. Pt wanting to change Pristiq, possibly re-start Olanzapine. We would like his input if possible. Pristiq ordered from [employer] as it is not on formulary Collateral contact as needed Assist pt to re-establish safety. 03/24/22: Continue current plan. 03/25/22: Olanzapine prn 03/26/22: Lactulose for constipation Safety discussion with pt. Increase in anxiety after her ER experience. Working with team to manage her impulsivity. 03/27: Continue current regimen and plans with increase of trazodone to 300 mg 03/28: Continue current plans and regimen. 03/29: Continue current regimen and plans. A 3 day notice has been placed 03/30/22: On 03/31, Increase Adderall to 30 mg XR q a.m. 04/01/22: Increase Melatonin to 11 mg HS. 04/02/22: Continue current regime Mucinex DM prn 04/03/22: Azithromycin 500 mg today, 250 mg x 4 days thereafter 04/04/22: Continue current regime 04/05/22: IModium prn for diarrhea Monitor for increasing risk of self harm 04/06/22: Resolving physical sx of COVID Increasing emotional sx, feeling tired, worn, drained. 04/07/22: Discontinue Ibuprofen BMP, Li, TSH 04/08/22 Olanzapine 5 mg prn to alternate with 10 mg for SIBS, SI, impulsivity 04/08 continue tx. 04/09 continue tx. 04/10 continue tx. 04/11 continue tx. -monitor for sinus discomfort -check lithium level tomorrow morning -remain on one-to-one 04/12 pt would like to keep lithium level at 0.7, currently at 1.0, will decrease morning dose to 450mg po daily and keep 600mg po qhs. continue one to one. 04/13 continue tx. 04/14 continue tx, re check lithium level next . 04/15 ocontinue tx. 04/16 add benadryl 50mg po qhs one time but if helpful may want to schedule. 04/17 continue current treatment regimen with Benadryl q.h.s. ?Discussed case with nursing; met with patient; reviewed vitals and mildly tachycardic but otherwise WNL 04/18 Discussed case with nursing; met with patient; reviewed vitals and mildly hypertensive. Remain on one-to-one as patient reports active SI 04/21/22- Continue current plan Possible family meeting 04/23. 04/22/22- Family meeting 1/25 1pm Perphenazine 4 mg bid prn dissociative sx, anxiety to assist with grounding 04/24/22- Continue current regime 04/26/22-Continue current plan. Preparing for family meeting 04/28. Discontinue Perphenazine prn Latuda 20 mg hs. 04/27/22: Continue current plan. Preparing for family meeting 04/28. Encouraged Sandi to make a brief outline to refer to in case of distraction/anxiety during the meeting. 04/29/22: Discontinue Olanzapine Discontinue Latuda Chlorpromazaine 100 mg HS and daily prn 04/30/22: Increase Chlorpromazine to 200 mg HS and daily prn. 05/01: continue tx pln. Reason for contiued inpatient stay Substantial Risk for: harm to self and rapid decompensation Time Spent With Patient Time: Total time managing care of this patient today ____ minutes.
[2022-05-01] MEDS: Amphetamine Mixed Salts 10 MG TABLET PO (13:26)
[2022-05-01] MEDS: chlorproMAZINE HCl 100 MG TABLET 200 MG PO ×2 (13:26→21:03)
[2022-05-01 18:00] VITALS: BP 122/61; PULSE 98; RESP 20; TEMP 36.5; O2SAT 98
[2022-05-01] MEDS: PRAZOSIN HCL 14 MG PO (21:01)
[2022-05-01] MEDS: Melatonin 3 MG TABLET 12 MG PO (21:01)
[2022-05-01] MEDS: traZODone HCL 100 MG TABLET 300 MG PO (21:02)
[2022-05-02 09:10] VITALS: BP 122/78; PULSE 106; RESP 18; TEMP 36.8; O2SAT 96
[2022-05-02] MEDS: Lithium Carbonate ER 300 MG TABLET.ER 600 MG PO ×2 (09:19→21:21)
[2022-05-02] MEDS: Cholecalciferol (Vitamin D3) 25 MCG TABLET 50 MCG PO (09:19)
[2022-05-02] MEDS: Docusate Sodium 100 MG CAPSULE PO ×2 (09:19→21:18)
[2022-05-02] MEDS: Dextroamphetamine/Amphetamine XR 10 MG CAP.ER.24H 30 MG PO (09:20)
[2022-05-02] MEDS: Fluticasone Propionate Nasal 16 GM SPRAY 1 SPRAY NOSTRIL-B (11:32)
--- NOTE | 2022-05-02 14:55 | HO.PSYCHPN ---
Subjective Subjective Date of Service: 05/02/22 Reason For Visit: Depression SI PTSD Interim History: Patient seen and discussed with RN. Sandi reports today she felt dizzy earlier today. VSS stable. It lasted a short time and the feeling went away. Her mood and anxiety and AH are improved. Thorazine helps with anxiety and SI. Denies suicidal intent. Continues on 1:1. Review of Systems Review of Systems Constitutional : No Weight loss, No Fever, No Chills, No Night Sweats, No Fatigue, No Malaise ENT/Mouth : No Hearing loss, No Ear Pain, No Nasal Congestion, No Sinus Pain, No Hoarseness, No sore throat, No Rhinorrhea, No Swallowing Difficulty Eyes: No Eye Pain, No Swelling, No Redness, No Foreign Body, No Discharge, No Vision Changes Cardiovascular : No Chest Pain, No SOB, No Dyspnea on Exertion, No Orthopnea, No Edema, No Palpitations Respiratory : No Cough, No Sputum, No Wheezing, No Smoke Exposure, No Dyspnea Gastrointestinal : No Nausea, No Vomiting, No Diarrhea, No Constipation, No abdominal Pain, No Hematochezia, No Melena Genitourinary : no irregular bleeding, No Dysuria, No Urinary Frequency, No Hematuria, No Urinary Incontinence, No Urgency, No Flank Pain, No Urinary Flow Changes, No Hesitancy Musculoskeletal : No joint pain, No Myalgias, No Joint Swelling Skin : No Skin Lesions, No rash Neuro : No Weakness, No Numbness, No Paresthesias, No Loss of Consciousness, No Dizziness, No Headache Psych : Complaining of severe anxiety and suicidal ideation, no homicidal ideation Heme/Lymph: No Bruising, No Bleeding,No Lymphadenopathy Endocrine : No Polyuria, No Polydipsia, No Temperature Intolerance Yes all other systems are reviewed and are negative Psychiatric: Reports anxiety, Reports depression, Reports difficulty concentrating, Reports hopelessness, Reports anhedonia and Reports suicidal ideation Mental Status Exam Mental Status Exam Narrative: NAD. Normally ambulation. Motor activity calm. Patient Appearance: Appropriate Patient Orientation: Person, Place, Time and Situation Level of Consciousness: Alert Patient Behavior: Appropriate, Talkative, Cooperative and Good Eye Contact Mood Description: Depressed Affect Description: Flat Patient Cognition Impaired: No Ability to Follow Directions: Good Speech Pattern: Spontaneous Speech Memory Description: Intact Diagnostics Vital Signs (24Hr): Vital Signs - 24 hr 05/02/22 09:10 05/02/22 21:15 Temperature 98.2 F 98.0 F Pulse Rate 106 H 98 Respiratory Rate 18 Blood Pressure 122/78 126/68 Pulse Oximetry 96 97 Oxygen Delivery Method Room Air Room Air BMI result Body Mass Index 40.3 Labs 03/21/22 04:36 04/23/22 08:16 Medications Medications Current Medications Acetaminophen (Acetaminophen 325 Mg Tablet) 650 mg PO Q6H PRN PRN Reason: Headache/Pain Mild Scale (1-3) Last Admin: 04/03/22 16:34 Dose: 650 mg Al Hydroxide/Mg Hydroxide (Magnesium Hydrox/Alum Hydrox 30 Ml Oral.Susp) 30 ml PO Q6H PRN PRN Reason: Heartburn/Nausea Last Admin: 04/25/22 10:25 Dose: 30 ml Alprazolam (Alprazolam 0.5 Mg Tablet) 1 mg PO QID PRN PRN Reason: Anxiety Last Admin: 05/02/22 21:22 Dose: 1 mg Amphetamine/Dextroamphetamine (Dextroamphetamine/Amphetamine Xr 10 Mg Cap.Er.24h) 30 mg PO DAILY [facility] Last Admin: 05/02/22 09:20 Dose: 30 mg Amphetamine/Dextroamphetamine (Amphetamine Mixed Salts 10 Mg Tablet) 10 mg PO 1400 [facility] Last Admin: 05/02/22 17:21 Dose: 10 mg Benzocaine (Throat Lozenge, Medicated Lozenge) 1 lozenge MUCOUS MEM Q2H PRN PRN Reason: Sore Throat Last Admin: 04/03/22 10:20 Dose: 1 lozenge Bisacodyl (Bisacodyl 5 Mg Tablet.Dr) 10 mg PO DAILY PRN PRN Reason: Constipation Last Admin: 04/30/22 09:49 Dose: 10 mg Chlorpromazine HCl (Chlorpromazine Hcl 100 Mg Tablet) 200 mg PO BEDTIME [facility] Last Admin: 05/02/22 21:20 Dose: 200 mg Chlorpromazine HCl (Chlorpromazine Hcl 100 Mg Tablet) 200 mg PO DAILY PRN PRN Reason: intrusive thoughts Last Admin: 05/01/22 13:26 Dose: 200 mg Diphenhydramine HCl (Diphenhydramine Hcl 25 Mg Capsule) 50 mg PO BEDTIME PRN PRN Reason: Insomnia Last Admin: 04/24/22 22:00 Dose: 50 mg Docusate Sodium (Docusate Sodium 100 Mg Capsule) 100 mg PO BID [facility] Last Admin: 05/02/22 21:18 Dose: 100 mg Fluticasone Propionate (Fluticasone Propionate Nasal 16 Gm [place]) 1 spray NOSTRIL-B DAILY [facility] Last Admin: 05/02/22 11:32 Dose: 1 spray Guaifenesin/Dextromethorphan (Guaifenesin Dm 600/30 1 Tab Tab.Er.12h) 1 tab PO BID PRN PRN Reason: cough, congestion Last Admin: 04/13/22 09:11 Dose: 1 tab Hydroxyzine HCl (Hydroxyzine Hcl 25 Mg Tablet) 25 mg PO Q6H PRN PRN Reason: Anxiety Last Admin: 05/02/22 21:22 Dose: 25 mg Lactulose (Lactulose 20 Gm/30 Ml Solution) 10 gm PO DAILY PRN PRN Reason: Constipation Last Admin: 05/01/22 10:00 Dose: 10 gm [place] Carbonate ([place] Carbonate Er 300 Mg Tablet.Er) 600 mg PO BID [facility] Last Admin: 05/02/22 21:21 Dose: 600 mg Loperamide HCl (Loperamide Hcl 2 Mg Capsule) 4 mg PO Q4H PRN PRN Reason: Diarrhea Last Admin: 04/06/22 16:14 Dose: 4 mg Magnesium Hydroxide (Milk Of Magnesia 30 Ml Oral.Susp) 30 ml PO DAILY PRN PRN Reason: Constipation Last Admin: 03/25/22 11:00 Dose: 30 ml Melatonin (Melatonin 3 Mg Tablet) 12 mg PO BEDTIME [facility] Last Admin: 05/02/22 21:23 Dose: 12 mg Multi-Ingred Medicated Throat [place] (Throat [place], Medicated 177 Ml Bottle) 1 spray MUCOUS MEM Q2H PRN PRN Reason: Sore Throat Last Admin: 04/08/22 08:25 Dose: 1 spray Nicotine (Nicotine 14 Mg Patch.Td24) 14 mg TRANSDERMA DAILY PRN PRN Reason: nicotine craving Nicotine Polacrilex (Nicotine Polacrilex 2 Mg Gum) 2 mg BUCCAL Q2H PRN PRN Reason: nicotine withdrawal Last Admin: 03/29/22 09:32 Dose: 2 mg Patient Own Medication ( Desvenlafaxine 100 Mg Er Tablet) 1 tab PO DAILY [facility] Last Admin: 05/02/22 09:19 Dose: 1 tab Pt Own (Super B (Complex)) 1 tab PO DAILY [facility] Last Admin: 05/02/22 09:19 Dose: 1 tab Polyethylene Glycol (Polyethylene Glycol 3350 17 Gm Powd.Pack) 17 gm PO DAILY PRN PRN Reason: constipation Last Admin: 04/30/22 09:49 Dose: 17 gm Prazosin HCl 10 mg/ Prazosin (HCl 4 mg) 14 mg PO BEDTIME [facility] Last Admin: 05/02/22 21:19 Dose: 14 mg Saliva Substitute (Dry Mouth [place] 60 Ml [place]) 1 spray MUCOUS MEM Q2H PRN PRN Reason: Dry Mouth Trazodone HCl (Trazodone Hcl 100 Mg Tablet) 300 mg PO BEDTIME [facility] Last Admin: 05/02/22 21:21 Dose: 300 mg Vitamin D (Cholecalciferol (Vitamin D3) 25 Mcg Tablet) 50 mcg PO DAILY [facility] Last Admin: 05/02/22 09:19 Dose: 50 mcg Allergies Allergies Allergy/AdvReac Type Severity Reaction Status Date / Time Sulfa (Sulfonamide Allergy Unknown HIVES Verified 03/15/21 14:13 Antibiotics) [SULFA (SULFONAMIDE ANTIBIOTICS)] sulfamethoxazole Allergy Unknown HIVES Verified 03/15/21 14:13 [From BACTRIM] trimethoprim [From BACTRIM] Allergy Unknown HIVES Verified 03/15/21 14:13 oseltamivir [From Tamiflu] AdvReac Sensation Verified 09/29/21 11:20 of bugs crawling on skin. Assessment & Plan Assessment & Plan (1) PTSD (post-traumatic stress disorder): Status: Acute Code(s): F43.10 - Post-traumatic stress disorder, unspecified (2) MDD (major depressive disorder), recurrent severe, without psychosis: Status: Acute Code(s): F33.2 - Major depressive disorder, recurrent severe without psychotic features (3) Suicidal ideation: Status: Acute Code(s): R45.851 - Suicidal ideations Plan 36 yo non binary, prefers they/them pronouns with SI. S/P attempt via lying on railroad tracks [employer]. Several serious precipitants-holidays, anniversary of the loss of a child they planned to co-parent and therapist moved from the area at the end of Feb 2022 however pt will be continuing via [employer]. Plan: Message left for Nathen Mesa. Pt wanting to change Pristiq, possibly re-start Olanzapine. We would like his input if possible. Pristiq ordered from [employer] as it is not on formulary Collateral contact as needed Assist pt to re-establish safety. 03/24/22: Continue current plan. 03/25/22: Olanzapine prn 03/26/22: Lactulose for constipation Safety discussion with pt. Increase in anxiety after her ER experience. Working with team to manage her impulsivity. 03/27: Continue current regimen and plans with increase of trazodone to 300 mg 03/28: Continue current plans and regimen. 03/29: Continue current regimen and plans. A 3 day notice has been placed 03/30/22: On 03/31, Increase Adderall to 30 mg XR q a.m. 04/01/22: Increase Melatonin to 11 mg HS. 04/02/22: Continue current regime Mucinex DM prn 04/03/22: Azithromycin 500 mg today, 250 mg x 4 days thereafter 04/04/22: Continue current regime 04/05/22: IModium prn for diarrhea Monitor for increasing risk of self harm 04/06/22: Resolving physical sx of COVID Increasing emotional sx, feeling tired, worn, drained. 04/07/22: Discontinue Ibuprofen BMP, Li, TSH 04/08/22 Olanzapine 5 mg prn to alternate with 10 mg for SIBS, SI, impulsivity 04/08 continue tx. 04/09 continue tx. 04/10 continue tx. 04/11 continue tx. -monitor for sinus discomfort -check lithium level tomorrow morning -remain on one-to-one 04/12 pt would like to keep lithium level at 0.7, currently at 1.0, will decrease morning dose to 450mg po daily and keep 600mg po qhs. continue one to one. 04/13 continue tx. 04/14 continue tx, re check lithium level next . 04/15 ocontinue tx. 04/16 add benadryl 50mg po qhs one time but if helpful may want to schedule. 04/17 continue current treatment regimen with Benadryl q.h.s. ?Discussed case with nursing; met with patient; reviewed vitals and mildly tachycardic but otherwise WNL 04/18 Discussed case with nursing; met with patient; reviewed vitals and mildly hypertensive. Remain on one-to-one as patient reports active SI 04/21/22- Continue current plan Possible family meeting 04/23. 04/22/22- Family meeting 04/28 1pm Perphenazine 4 mg bid prn dissociative sx, anxiety to assist with grounding 04/24/22- Continue current regime 04/26/22-Continue current plan. Preparing for family meeting 04/28. Discontinue Perphenazine prn Latuda 20 mg hs. 04/27/22: Continue current plan. Preparing for family meeting 04/28. Encouraged Sandi to make a brief outline to refer to in case of distraction/anxiety during the meeting. 04/29/22: Discontinue Olanzapine Discontinue Latuda Chlorpromazaine 100 mg HS and daily prn 04/30/22: Increase Chlorpromazine to 200 mg HS and daily prn. 05/01: continue tx pln. 05/02: Continue current plan. Reason for contiued inpatient stay Substantial Risk for: harm to self, inability to function and rapid decompensation Time Spent With Patient Time: Total time managing care of this patient today ____ minutes.
[2022-05-02] MEDS: Amphetamine Mixed Salts 10 MG TABLET PO (17:21)
[2022-05-02 21:15] VITALS: BP 126/68; PULSE 98; TEMP 36.7; O2SAT 97
[2022-05-02] MEDS: PRAZOSIN HCL 14 MG PO (21:19)
[2022-05-02] MEDS: chlorproMAZINE HCl 100 MG TABLET 200 MG PO (21:20)
[2022-05-02] MEDS: traZODone HCL 100 MG TABLET 300 MG PO (21:21)
[2022-05-02] MEDS: ALPRAZolam 0.5 MG TABLET 1 MG PO (21:22)
[2022-05-02] MEDS: hydrOXYzine HCL 25 MG TABLET PO (21:22)
[2022-05-02] MEDS: Melatonin 3 MG TABLET 12 MG PO (21:23)
[2022-05-03 06:00] VITALS: BP 141/58; PULSE 76; RESP 14; TEMP 36.9; O2SAT 96
[2022-05-03] MEDS: Cholecalciferol (Vitamin D3) 25 MCG TABLET 50 MCG PO (08:32)
[2022-05-03] MEDS: Docusate Sodium 100 MG CAPSULE PO ×2 (08:32→21:11)
[2022-05-03] MEDS: Dextroamphetamine/Amphetamine XR 10 MG CAP.ER.24H 30 MG PO (08:32)
[2022-05-03] MEDS: Lithium Carbonate ER 300 MG TABLET.ER 600 MG PO ×2 (08:32→21:11)
[2022-05-03] MEDS: Fluticasone Propionate Nasal 16 GM SPRAY 1 SPRAY NOSTRIL-B (08:38)
[2022-05-03] MEDS: bisacodyL 5 MG TABLET.DR 10 MG PO (08:55)
[2022-05-03] MEDS: ALPRAZolam 0.5 MG TABLET 1 MG PO ×3 (08:55→21:15)
--- NOTE | 2022-05-03 11:38 | HO.PSYCHPN ---
Subjective Subjective Date of Service: 05/03/22 Reason For Visit: Depression SI PTSD Subjective Notes: Conditional Voluntary Healthcare Proxy: No Guardianship: No Medical Problems Affecting Mental Status: No Interim History: Discussed beginning to taper Chlorpromazine. Will decrease from 200 mg HS and qd prn to 150 mg hs and qd prn. 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 Will begin Tuesday night into Tuesday. Reports over the weekend feeling lightheaded, dizzy, hearing environmental sounds far away, sensory perceptions as if she were falling asleep. Discussed possible sx of longer term COVID. Pt talking today about going home. Medication Compliance: Yes Side effects from medications: Yes (?Sedation with chlorpromazine) Attending Groups: Yes Review of Systems Acute medical concerns: No Medical Review of Systems: unchanged Mental Status Exam Mental Status Exam Narrative: NAD. Normally ambulation. Motor activity calm. Patient Appearance: Appropriate Patient Orientation: Person, Place, Time and Situation Level of Consciousness: Alert Patient Behavior: Appropriate, Talkative, Cooperative and Good Eye Contact Mood Description: Depressed Affect Description: Flat Patient Cognition Impaired: No Ability to Follow Directions: Good Speech Pattern: Spontaneous Speech Memory Description: Intact Diagnostics Vital Signs (24Hr): Vital Signs - 24 hr 05/02/22 21:15 Temperature 98.0 F Pulse Rate 98 Blood Pressure 126/68 Pulse Oximetry 97 Oxygen Delivery Method Room Air BMI result Body Mass Index 40.3 Labs 03/21/22 04:36 04/23/22 08:16 Medications Medications Current Medications Acetaminophen (Acetaminophen 325 Mg Tablet) 650 mg PO Q6H PRN PRN Reason: Headache/Pain Mild Scale (1-3) Last Admin: 04/03/22 16:34 Dose: 650 mg Al Hydroxide/Mg Hydroxide (Magnesium Hydrox/Alum Hydrox 30 Ml Oral.Susp) 30 ml PO Q6H PRN PRN Reason: Heartburn/Nausea Last Admin: 04/25/22 10:25 Dose: 30 ml Alprazolam (Alprazolam 0.5 Mg Tablet) 1 mg PO QID PRN PRN Reason: Anxiety Last Admin: 05/03/22 08:55 Dose: 1 mg Amphetamine/Dextroamphetamine (Dextroamphetamine/Amphetamine Xr 10 Mg Cap.Er.24h) 30 mg PO DAILY [facility] Last Admin: 05/03/22 08:32 Dose: 30 mg Amphetamine/Dextroamphetamine (Amphetamine Mixed Salts 10 Mg Tablet) 10 mg PO 1400 [facility] Last Admin: 05/02/22 17:21 Dose: 10 mg Benzocaine (Throat Lozenge, Medicated Lozenge) 1 lozenge MUCOUS MEM Q2H PRN PRN Reason: Sore Throat Last Admin: 04/03/22 10:20 Dose: 1 lozenge Bisacodyl (Bisacodyl 5 Mg Tablet.Dr) 10 mg PO DAILY PRN PRN Reason: Constipation Last Admin: 05/03/22 08:55 Dose: 10 mg Chlorpromazine HCl (Chlorpromazine Hcl 100 Mg Tablet) 200 mg PO BEDTIME [facility] Last Admin: 05/02/22 21:20 Dose: 200 mg Chlorpromazine HCl (Chlorpromazine Hcl 100 Mg Tablet) 200 mg PO DAILY PRN PRN Reason: intrusive thoughts Last Admin: 05/01/22 13:26 Dose: 200 mg Diphenhydramine HCl (Diphenhydramine Hcl 25 Mg Capsule) 50 mg PO BEDTIME PRN PRN Reason: Insomnia Last Admin: 04/24/22 22:00 Dose: 50 mg Docusate Sodium (Docusate Sodium 100 Mg Capsule) 100 mg PO BID [facility] Last Admin: 05/03/22 08:32 Dose: 100 mg Fluticasone Propionate (Fluticasone Propionate Nasal 16 Gm [place]) 1 spray NOSTRIL-B DAILY [facility] Last Admin: 05/03/22 08:38 Dose: 1 spray Guaifenesin/Dextromethorphan (Guaifenesin Dm 600/30 1 Tab Tab.Er.12h) 1 tab PO BID PRN PRN Reason: cough, congestion Last Admin: 04/13/22 09:11 Dose: 1 tab Hydroxyzine HCl (Hydroxyzine Hcl 25 Mg Tablet) 25 mg PO Q6H PRN PRN Reason: Anxiety Last Admin: 05/02/22 21:22 Dose: 25 mg Lactulose (Lactulose 20 Gm/30 Ml Solution) 10 gm PO DAILY PRN PRN Reason: Constipation Last Admin: 05/01/22 10:00 Dose: 10 gm [place] Carbonate ([place] Carbonate Er 300 Mg Tablet.Er) 600 mg PO BID [facility] Last Admin: 05/03/22 08:32 Dose: 600 mg Loperamide HCl (Loperamide Hcl 2 Mg Capsule) 4 mg PO Q4H PRN PRN Reason: Diarrhea Last Admin: 04/06/22 16:14 Dose: 4 mg Magnesium Hydroxide (Milk Of Magnesia 30 Ml Oral.Susp) 30 ml PO DAILY PRN PRN Reason: Constipation Last Admin: 03/25/22 11:00 Dose: 30 ml Melatonin (Melatonin 3 Mg Tablet) 12 mg PO BEDTIME [facility] Last Admin: 05/02/22 21:23 Dose: 12 mg Multi-Ingred Medicated Throat [place] (Throat [place], Medicated 177 Ml Bottle) 1 spray MUCOUS MEM Q2H PRN PRN Reason: Sore Throat Last Admin: 04/08/22 08:25 Dose: 1 spray Nicotine (Nicotine 14 Mg Patch.Td24) 14 mg TRANSDERMA DAILY PRN PRN Reason: nicotine craving Nicotine Polacrilex (Nicotine Polacrilex 2 Mg Gum) 2 mg BUCCAL Q2H PRN PRN Reason: nicotine withdrawal Last Admin: 03/29/22 09:32 Dose: 2 mg Patient Own Medication ( Desvenlafaxine 100 Mg Er Tablet) 1 tab PO DAILY [facility] Last Admin: 05/03/22 08:32 Dose: 1 tab Pt Own (Super B (Complex)) 1 tab PO DAILY [facility] Last Admin: 05/03/22 08:53 Dose: 1 tab Polyethylene Glycol (Polyethylene Glycol 3350 17 Gm Powd.Pack) 17 gm PO DAILY PRN PRN Reason: constipation Last Admin: 04/30/22 09:49 Dose: 17 gm Prazosin HCl 10 mg/ Prazosin (HCl 4 mg) 14 mg PO BEDTIME [facility] Last Admin: 05/02/22 21:19 Dose: 14 mg Saliva Substitute (Dry Mouth [place] 60 Ml [place]) 1 spray MUCOUS MEM Q2H PRN PRN Reason: Dry Mouth Trazodone HCl (Trazodone Hcl 100 Mg Tablet) 300 mg PO BEDTIME [facility] Last Admin: 05/02/22 21:21 Dose: 300 mg Vitamin D (Cholecalciferol (Vitamin D3) 25 Mcg Tablet) 50 mcg PO DAILY [facility] Last Admin: 05/03/22 08:32 Dose: 50 mcg Allergies Allergies Allergy/AdvReac Type Severity Reaction Status Date / Time Sulfa (Sulfonamide Allergy Unknown HIVES Verified 03/15/21 14:13 Antibiotics) [SULFA (SULFONAMIDE ANTIBIOTICS)] sulfamethoxazole Allergy Unknown HIVES Verified 03/15/21 14:13 [From BACTRIM] trimethoprim [From BACTRIM] Allergy Unknown HIVES Verified 03/15/21 14:13 oseltamivir [From Tamiflu] AdvReac Sensation Verified 09/29/21 11:20 of bugs crawling on skin. Assessment & Plan Assessment & Plan (1) PTSD (post-traumatic stress disorder): Status: Acute Code(s): F43.10 - Post-traumatic stress disorder, unspecified (2) MDD (major depressive disorder), recurrent severe, without psychosis: Status: Acute Code(s): F33.2 - Major depressive disorder, recurrent severe without psychotic features (3) Suicidal ideation: Status: Acute Code(s): R45.851 - Suicidal ideations Plan 36 yo non binary, prefers they/them pronouns with SI. 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 Several serious precipitants-holidays, anniversary of the loss of a child they planned to co-parent and therapist moved from the area at the end of Feb 2022 however pt will be continuing via [employer]. Plan: Message left for Nathen Mesa. Pt wanting to change Pristiq, possibly re-start Olanzapine. We would like his input if possible. Pristiq ordered from [email or web address] as it is not on formulary Collateral contact as needed Assist pt to re-establish safety. 03/24/22: Continue current plan. 03/25/22: Olanzapine prn 03/26/22: Lactulose for constipation Safety discussion with pt. Increase in anxiety after her ER experience. Working with team to manage her impulsivity. 03/27: Continue current regimen and plans with increase of trazodone to 300 mg 03/28: Continue current plans and regimen. 03/29: Continue current regimen and plans. A 3 day notice has been placed 03/30/22: On 03/31, Increase Adderall to 30 mg XR q a.m. 04/01/22: Increase Melatonin to 11 mg HS. 04/02/22: Continue current regime Mucinex DM prn 04/03/22: Azithromycin 500 mg today, 250 mg x 4 days thereafter 04/04/22: Continue current regime 04/05/22: IModium prn for diarrhea Monitor for increasing risk of self harm 04/06/22: Resolving physical sx of COVID Increasing emotional sx, feeling tired, worn, drained. 04/07/22: Discontinue Ibuprofen BMP, Li, TSH 04/08/22 Olanzapine 5 mg prn to alternate with 10 mg for SIBS, SI, impulsivity 04/08 continue tx. 04/09 continue tx. 04/10 continue tx. 04/11 continue tx. -monitor for sinus discomfort -check lithium level tomorrow morning -remain on one-to-one 04/12 pt would like to keep lithium level at 0.7, currently at 1.0, will decrease morning dose to 450mg po daily and keep 600mg po qhs. continue one to one. 04/13 continue tx. 04/14 continue tx, re check lithium level next . 04/15 ocontinue tx. 04/16 add benadryl 50mg po qhs one time but if helpful may want to schedule. 04/17 continue current treatment regimen with Benadryl q.h.s. ?Discussed case with nursing; met with patient; reviewed vitals and mildly tachycardic but otherwise WNL 04/18 Discussed case with nursing; met with patient; reviewed vitals and mildly hypertensive. Remain on one-to-one as patient reports active SI 04/21/22- Continue current plan Possible family meeting 04/23. 04/22/22- Family meeting 04/28 1pm Perphenazine 4 mg bid prn dissociative sx, anxiety to assist with grounding 04/24/22- Continue current regime 04/26/22-Continue current plan. Preparing for family meeting 04/28. Discontinue Perphenazine prn Latuda 20 mg hs. 04/27/22: Continue current plan. Preparing for family meeting 04/28. Encouraged Sandi to make a brief outline to refer to in case of distraction/anxiety during the meeting. 04/29/22: Discontinue Olanzapine Discontinue Latuda Chlorpromazaine 100 mg HS and daily prn 04/30/22: Increase Chlorpromazine to 200 mg HS and daily prn. 05/01: continue tx pln. 05/02: Continue current plan. 05/03/22: Decrease chlorpromazine to 150 mg HS and daily prn Will trial pt off one to one on 11-7 shift beginning on Tuesday evening. Patient educated on: medication risk/benefits Informed Consent: understands and further education needed Reason for contiued inpatient stay Substantial Risk for: harm to self, inability to function and rapid decompensation Time Spent With Patient Time: Total time managing care of this patient today 20 minutes.
[2022-05-03] MEDS: Amphetamine Mixed Salts 10 MG TABLET PO (13:17)
[2022-05-03] MEDS: hydrOXYzine HCL 25 MG TABLET PO (16:55)
[2022-05-03 20:55] VITALS: BP 123/73; PULSE 85; TEMP 37.4; O2SAT 97
[2022-05-03] MEDS: chlorproMAZINE HCl 25 MG TABLET 150 MG PO (21:11)
[2022-05-03] MEDS: PRAZOSIN HCL 14 MG PO (21:11)
[2022-05-03] MEDS: traZODone HCL 100 MG TABLET 300 MG PO (21:12)
[2022-05-03] MEDS: Melatonin 3 MG TABLET 12 MG PO (21:14)
[2022-05-04] MEDS: Dextroamphetamine/Amphetamine XR 10 MG CAP.ER.24H 30 MG PO (08:59)
[2022-05-04] MEDS: Cholecalciferol (Vitamin D3) 25 MCG TABLET 50 MCG PO (08:59)
[2022-05-04] MEDS: Docusate Sodium 100 MG CAPSULE PO ×2 (08:59→21:30)
[2022-05-04] MEDS: Lithium Carbonate ER 300 MG TABLET.ER 600 MG PO ×2 (08:59→21:30)
[2022-05-04] MEDS: ALPRAZolam 0.5 MG TABLET 1 MG PO ×3 (09:38→21:28)
[2022-05-04 09:58] VITALS: BP 134/87; PULSE 91; RESP 16; TEMP 36; O2SAT 96
--- NOTE | 2022-05-04 10:40 | HO.PSYCHPN ---
Subjective Subjective Date of Service: 05/04/22 Reason For Visit: Depression SI PTSD Subjective Notes: Conditional Voluntary Healthcare Proxy: No Guardianship: No Medical Problems Affecting Mental Status: No Interim History: Reviewed in team Pt discussing stopping one to one on intake counselor, then moving to day shift. Evenings are harder. Talking about discharge Less SI , less suicidal thinking. Cpz helpful Ready to re-start Latuda. If tolerated 20 mg to begin, 40 mg 2/3, 60 mg 2/5. Pt concurs Medication Compliance: Yes Side effects from medications: No Attending Groups: Yes Review of Systems Acute medical concerns: No Medical Review of Systems: unchanged Mental Status Exam Mental Status Exam Narrative: NAD. Normally ambulation. Motor activity calm. Patient Appearance: Appropriate Patient Orientation: Person, Place, Time and Situation Level of Consciousness: Alert Patient Behavior: Appropriate, Talkative, Cooperative and Good Eye Contact Mood Description: Depressed Affect Description: Flat Patient Cognition Impaired: No Ability to Follow Directions: Good Speech Pattern: Spontaneous Speech Memory Description: Intact Diagnostics Vital Signs (24Hr): Vital Signs - 24 hr 05/03/22 20:55 05/04/22 09:58 Temperature 99.3 F 96.8 F Pulse Rate 85 91 Respiratory Rate 16 Blood Pressure 123/73 134/87 Pulse Oximetry 97 96 Oxygen Delivery Method Room Air Room Air BMI result Body Mass Index 40.3 Labs 03/21/22 04:36 04/23/22 08:16 Medications Medications Current Medications Acetaminophen (Acetaminophen 325 Mg Tablet) 650 mg PO Q6H PRN PRN Reason: Headache/Pain Mild Scale (1-3) Last Admin: 04/03/22 16:34 Dose: 650 mg Al Hydroxide/Mg Hydroxide (Magnesium Hydrox/Alum Hydrox 30 Ml Oral.Susp) 30 ml PO Q6H PRN PRN Reason: Heartburn/Nausea Last Admin: 04/25/22 10:25 Dose: 30 ml Alprazolam (Alprazolam 0.5 Mg Tablet) 1 mg PO QID PRN PRN Reason: Anxiety Last Admin: 05/04/22 09:38 Dose: 1 mg Amphetamine/Dextroamphetamine (Dextroamphetamine/Amphetamine Xr 10 Mg Cap.Er.24h) 30 mg PO DAILY [facility] Last Admin: 05/04/22 08:59 Dose: 30 mg Amphetamine/Dextroamphetamine (Amphetamine Mixed Salts 10 Mg Tablet) 10 mg PO 1400 [facility] Last Admin: 05/03/22 13:17 Dose: 10 mg Benzocaine (Throat Lozenge, Medicated Lozenge) 1 lozenge MUCOUS MEM Q2H PRN PRN Reason: Sore Throat Last Admin: 04/03/22 10:20 Dose: 1 lozenge Bisacodyl (Bisacodyl 5 Mg Tablet.Dr) 10 mg PO DAILY PRN PRN Reason: Constipation Last Admin: 05/03/22 08:55 Dose: 10 mg Chlorpromazine HCl (Chlorpromazine Hcl 25 Mg Tablet) 150 mg PO BEDTIME [facility] Last Admin: 05/03/22 21:11 Dose: 150 mg Chlorpromazine HCl (Chlorpromazine Hcl 25 Mg Tablet) 150 mg PO DAILY PRN PRN Reason: intrusive thoughts Diphenhydramine HCl (Diphenhydramine Hcl 25 Mg Capsule) 50 mg PO BEDTIME PRN PRN Reason: Insomnia Last Admin: 04/24/22 22:00 Dose: 50 mg Docusate Sodium (Docusate Sodium 100 Mg Capsule) 100 mg PO BID [facility] Last Admin: 05/04/22 08:59 Dose: 100 mg Fluticasone Propionate (Fluticasone Propionate Nasal 16 Gm [place]) 1 spray NOSTRIL-B DAILY [facility] Last Admin: 05/04/22 08:59 Dose: 1 spray Guaifenesin/Dextromethorphan (Guaifenesin Dm 600/30 1 Tab Tab.Er.12h) 1 tab PO BID PRN PRN Reason: cough, congestion Last Admin: 04/13/22 09:11 Dose: 1 tab Hydroxyzine HCl (Hydroxyzine Hcl 25 Mg Tablet) 25 mg PO Q6H PRN PRN Reason: Anxiety Last Admin: 05/03/22 16:55 Dose: 25 mg Lactulose (Lactulose 20 Gm/30 Ml Solution) 10 gm PO DAILY PRN PRN Reason: Constipation Last Admin: 05/01/22 10:00 Dose: 10 gm [place] Carbonate ([place] Carbonate Er 300 Mg Tablet.Er) 600 mg PO BID [facility] Last Admin: 05/04/22 08:59 Dose: 600 mg Loperamide HCl (Loperamide Hcl 2 Mg Capsule) 4 mg PO Q4H PRN PRN Reason: Diarrhea Last Admin: 04/06/22 16:14 Dose: 4 mg Magnesium Hydroxide (Milk Of Magnesia 30 Ml Oral.Susp) 30 ml PO DAILY PRN PRN Reason: Constipation Last Admin: 03/25/22 11:00 Dose: 30 ml Melatonin (Melatonin 3 Mg Tablet) 12 mg PO BEDTIME [facility] Last Admin: 05/03/22 21:14 Dose: 12 mg Multi-Ingred Medicated Throat [place] (Throat [place], Medicated 177 Ml Bottle) 1 spray MUCOUS MEM Q2H PRN PRN Reason: Sore Throat Last Admin: 04/08/22 08:25 Dose: 1 spray Nicotine (Nicotine 14 Mg Patch.Td24) 14 mg TRANSDERMA DAILY PRN PRN Reason: nicotine craving Nicotine Polacrilex (Nicotine Polacrilex 2 Mg Gum) 2 mg BUCCAL Q2H PRN PRN Reason: nicotine withdrawal Last Admin: 03/29/22 09:32 Dose: 2 mg Patient Own Medication ( Desvenlafaxine 100 Mg Er Tablet) 1 tab PO DAILY [facility] Last Admin: 05/04/22 08:59 Dose: 1 tab Pt Own (Super B (Complex)) 1 tab PO DAILY [facility] Last Admin: 05/04/22 09:00 Dose: 1 tab Polyethylene Glycol (Polyethylene Glycol 3350 17 Gm Powd.Pack) 17 gm PO DAILY PRN PRN Reason: constipation Last Admin: 04/30/22 09:49 Dose: 17 gm Prazosin HCl 10 mg/ Prazosin (HCl 4 mg) 14 mg PO BEDTIME [facility] Last Admin: 05/03/22 21:11 Dose: 14 mg Saliva Substitute (Dry Mouth [place] 60 Ml [place]) 1 spray MUCOUS MEM Q2H PRN PRN Reason: Dry Mouth Trazodone HCl (Trazodone Hcl 100 Mg Tablet) 300 mg PO BEDTIME [facility] Last Admin: 05/03/22 21:12 Dose: 300 mg Vitamin D (Cholecalciferol (Vitamin D3) 25 Mcg Tablet) 50 mcg PO DAILY [facility] Last Admin: 05/04/22 08:59 Dose: 50 mcg Allergies Allergies Allergy/AdvReac Type Severity Reaction Status Date / Time Sulfa (Sulfonamide Allergy Unknown HIVES Verified 03/15/21 14:13 Antibiotics) [SULFA (SULFONAMIDE ANTIBIOTICS)] sulfamethoxazole Allergy Unknown HIVES Verified 03/15/21 14:13 [From BACTRIM] trimethoprim [From BACTRIM] Allergy Unknown HIVES Verified 03/15/21 14:13 oseltamivir [From Tamiflu] AdvReac Sensation Verified 06/28/22 11:20 of bugs crawling on skin. Assessment & Plan Assessment & Plan (1) PTSD (post-traumatic stress disorder): Status: Acute Code(s): F43.10 - Post-traumatic stress disorder, unspecified (2) MDD (major depressive disorder), recurrent severe, without psychosis: Status: Acute Code(s): F33.2 - Major depressive disorder, recurrent severe without psychotic features (3) Suicidal ideation: Status: Acute Code(s): R45.851 - Suicidal ideations Plan 36 yo non binary, prefers they/them pronouns with SI. S/P attempt via lying on railroad tracks [employer]. Several serious precipitants-holidays, anniversary of the loss of a child they planned to co-parent and therapist moved from the area at the end of Feb 2022 however pt will be continuing via [employer]. Plan: Message left for Nathen Mesa. Pt wanting to change Pristiq, possibly re-start Olanzapine. We would like his input if possible. Pristiq ordered from [employer] as it is not on formulary Collateral contact as needed Assist pt to re-establish safety. 03/24/22: Continue current plan. 03/25/22: Olanzapine prn 03/26/22: Lactulose for constipation Safety discussion with pt. Increase in anxiety after her ER experience. Working with team to manage her impulsivity. 03/27: Continue current regimen and plans with increase of trazodone to 300 mg 03/28: Continue current plans and regimen. 03/29: Continue current regimen and plans. A 3 day notice has been placed 03/30/22: On 03/31, Increase Adderall to 30 mg XR q a.m. 04/01/22: Increase Melatonin to 11 mg HS. 04/02/22: Continue current regime Mucinex DM prn 04/03/22: Azithromycin 500 mg today, 250 mg x 4 days thereafter 04/04/22: Continue current regime 04/05/22: IModium prn for diarrhea Monitor for increasing risk of self harm 04/06/22: Resolving physical sx of COVID Increasing emotional sx, feeling tired, worn, drained. 04/07/22: Discontinue Ibuprofen BMP, Li, TSH 04/08/22 Olanzapine 5 mg prn to alternate with 10 mg for SIBS, SI, impulsivity 04/08 continue tx. 04/09 continue tx. 04/10 continue tx. 04/11 continue tx. -monitor for sinus discomfort -check lithium level tomorrow morning -remain on one-to-one 04/12 pt would like to keep lithium level at 0.7, currently at 1.0, will decrease morning dose to 450mg po daily and keep 600mg po qhs. continue one to one. 04/13 continue tx. 04/14 continue tx, re check lithium level next . 04/15 ocontinue tx. 04/16 add benadryl 50mg po qhs one time but if helpful may want to schedule. 04/17 continue current treatment regimen with Benadryl q.h.s. ?Discussed case with nursing; met with patient; reviewed vitals and mildly tachycardic but otherwise WNL 04/18 Discussed case with nursing; met with patient; reviewed vitals and mildly hypertensive. Remain on one-to-one as patient reports active SI 04/21/22- Continue current plan Possible family meeting 04/23. 04/22/22- Family meeting 04/28 1pm Perphenazine 4 mg bid prn dissociative sx, anxiety to assist with grounding 04/24/22- Continue current regime 04/26/22-Continue current plan. Preparing for family meeting 04/28. Discontinue Perphenazine prn Latuda 20 mg hs. 04/27/22: Continue current plan. Preparing for family meeting 04/28. Encouraged Sandi to make a brief outline to refer to in case of distraction/anxiety during the meeting. 04/29/22: Discontinue Olanzapine Discontinue Latuda Chlorpromazaine 100 mg HS and daily prn 04/30/22: Increase Chlorpromazine to 200 mg HS and daily prn. 05/01: continue tx pln. 05/02: Continue current plan. 05/03/22: Decrease chlorpromazine to 150 mg HS and daily prn Will trial pt off one to one on 11-7 shift beginning on Tuesday evening. 05/04/22: Latuda 20 mg 1900 Will begin coming off 1:1 on 11pm-7am this evening, 5 minute checks. Discussed in team. Patient educated on: medication risk/benefits Informed Consent: understands Reason for contiued inpatient stay Substantial Risk for: harm to self and rapid decompensation Time Spent With Patient Time: Total time managing care of this patient today 20 minutes.
[2022-05-04] MEDS: Amphetamine Mixed Salts 10 MG TABLET PO (14:40)
[2022-05-04 21:15] VITALS: BP 136/73; PULSE 86; TEMP 36.4; O2SAT 98
[2022-05-04] MEDS: Melatonin 3 MG TABLET 12 MG PO (21:28)
[2022-05-04] MEDS: hydrOXYzine HCL 25 MG TABLET PO (21:28)
[2022-05-04] MEDS: PRAZOSIN HCL 14 MG PO (21:29)
[2022-05-04] MEDS: traZODone HCL 100 MG TABLET 300 MG PO (21:29)
[2022-05-04] MEDS: chlorproMAZINE HCl 25 MG TABLET 150 MG PO (21:30)
[2022-05-05 08:53] LABS: MANUAL DIFF FLAG NO
[2022-05-05 08:56] LABS: Basophils Percent Auto 0.2 % (0-2); Eosinophils Absolute Auto 0.2 X10*3/uL (0.0-0.4); Eosinophils Percent Auto 2.4 % (0-4); Hematocrit 38.7 % (37.0-47.0); Imm Gran Abs Auto 0.04 X10*3/uL (0.00-0.03); Imm Gran Pct Auto 0.4 % (0.0-0.4); Lymphocytes Absolute Auto 2.3 X10*3/uL (1.2-4.9); Lymphocytes Percent Auto 25.7 % (20-40); Mean Corpuscular HGB Conc 33.6 g/dl (31.0-35.0); Mean Corpuscular Hemoglobin 30.2 pg (27.0-33.0); Mean Platelet Volume 10.1 fL (9.4-12.3); Monocytes Absolute Auto 0.4 X10*3/uL (0.1-1.2); Monocytes Percent Auto 4.9 % (2-11); Neutrophils Percent Auto 66.4 % (45-73); Platelet Count 264 X10*3/uL (160-400); Red Cell Distribution Width 13.1 % (11.0-16.0)
[2022-05-05] MEDS: Lithium Carbonate ER 300 MG TABLET.ER 600 MG PO ×2 (09:12→22:00)
[2022-05-05] MEDS: Docusate Sodium 100 MG CAPSULE PO ×2 (09:12→22:04)
[2022-05-05] MEDS: Dextroamphetamine/Amphetamine XR 10 MG CAP.ER.24H 30 MG PO (09:12)
[2022-05-05] MEDS: Fluticasone Propionate Nasal 16 GM SPRAY 1 SPRAY NOSTRIL-B ×2 (09:12→09:15)
[2022-05-05] MEDS: Cholecalciferol (Vitamin D3) 25 MCG TABLET 50 MCG PO (09:12)
[2022-05-05 09:35] VITALS: BP 117/62; PULSE 106; RESP 16; TEMP 36; O2SAT 97
[2022-05-05] MEDS: ALPRAZolam 0.5 MG TABLET 1 MG PO ×3 (09:40→22:02)
[2022-05-05 09:52] LABS: Alanine Aminotransferase 18 U/L (0-31); Albumin Level 3.4 g/dL (3.5-5.0); Alkaline Phosphatase 58 U/L (39-117); Anion Gap 11 (12-20); Aspartate Amino Transferase 16 U/L (5-31); Bilirubin Total 0.2 mg/dL (0.0-1.0); Blood Urea Nitrogen 9 mg/dL (9-16); Calcium 8.7 mg/dL (8.4-10.2); Carbon Dioxide 23 mmol/L (22-29); Chloride 111 mmol/L (96-108); Estimated Glomerular Filt Rate > 60; Glucose Random 86 mg/dL (60-115); Potassium 4.4 mmol/L (3.3-5.1); Sodium 141 mmol/L (135-145); Total Protein 5.5 g/dL (6.5-8.0)
[2022-05-05] MEDS: Acetaminophen 325 MG TABLET 650 MG PO (14:11)
[2022-05-05] MEDS: Amphetamine Mixed Salts 10 MG TABLET PO (14:12)
--- NOTE | 2022-05-05 20:10 | P.PNPSI_ITS ---
Subjective Subjective Date of Service: 05/05/22 Reason For Visit: Depression SI PTSD Subjective Notes: Conditional Voluntary Healthcare Proxy: No Guardianship: No Medical Problems Affecting Mental Status: No Interim History: Tolerated Latuda. Reviewed in team. Decrease of one to one is OK thus far. I am wanting to go home I think this is beginning to break and make some progress Discussed after effects of COVID possibly contributing to sx increase and intensity Pt wanting to keep current plan and moving forward. Medication Compliance: Yes Side effects from medications: No Attending Groups: Yes Review of Systems Acute medical concerns: No Medical Review of Systems: unchanged Mental Status Exam Mental Status Exam Narrative: NAD. Normally ambulation. Motor activity calm. Patient Appearance: Appropriate Patient Orientation: Person, Place, Time and Situation Level of Consciousness: Alert Patient Behavior: Appropriate, Talkative, Cooperative and Good Eye Contact Mood Description: Depressed Affect Description: Flat Patient Cognition Impaired: No Ability to Follow Directions: Good Speech Pattern: Spontaneous Speech Memory Description: Intact Diagnostics Vital Signs (24Hr): Vital Signs - 24 hr 05/04/22 21:15 05/05/22 09:35 Temperature 97.6 F 96.8 F Pulse Rate 86 106 H Respiratory Rate 16 Blood Pressure 136/73 117/62 Pulse Oximetry 98 97 Oxygen Delivery Method Room Air Room Air BMI result Body Mass Index 40.3 Labs 05/05/22 08:29 05/05/22 08:29 Labs: Laboratory Results - last 48 hr 05/05/22 05/05/22 08:29 08:29 WBC 9.0 RBC 4.30 Hgb 13.0 Hct 38.7 MCV 90.0 MCH 30.2 MCHC 33.6 RDW 13.1 Plt Count 264 D MPV 10.1 Immature Gran % (Auto) 0.4 Neut % (Auto) 66.4 Lymph % (Auto) 25.7 [place] % (Auto) 4.9 Eos % (Auto) 2.4 Baso % (Auto) 0.2 Lymph # (Auto) 2.3 [place] # (Auto) 0.4 Eos # (Auto) 0.2 Baso # (Auto) 0.0 Abs Immat Gran (auto) 0.04 H Absolute Neuts (auto) 6.0 Absolute Nucleated RBC 0.000 Nucleated RBC % (auto) 0.0 Sodium 141 Potassium 4.4 Chloride 111 H Carbon Dioxide 23 Anion Gap 11 L BUN 9 Creatinine 0.79 Estim Creat Clear Calc 127.0 Estimated GFR > 60 Random Glucose 86 Calcium 8.7 Total Bilirubin 0.2 AST 16 ALT 18 Alkaline Phosphatase 58 Total Protein 5.5 L Albumin 3.4 L Medications Medications Current Medications Acetaminophen (Acetaminophen 325 Mg Tablet) 650 mg PO Q6H PRN PRN Reason: Headache/Pain Mild Scale (1-3) Last Admin: 05/05/22 14:11 Dose: 650 mg Al Hydroxide/Mg Hydroxide (Magnesium Hydrox/Alum Hydrox 30 Ml Oral.Susp) 30 ml PO Q6H PRN PRN Reason: Heartburn/Nausea Last Admin: 04/25/22 10:25 Dose: 30 ml Alprazolam (Alprazolam 0.5 Mg Tablet) 1 mg PO QID PRN PRN Reason: Anxiety Last Admin: 05/05/22 16:43 Dose: 1 mg Amphetamine/Dextroamphetamine (Dextroamphetamine/Amphetamine Xr 10 Mg Cap.Er.24h) 30 mg PO DAILY [facility] Last Admin: 05/05/22 09:12 Dose: 30 mg Amphetamine/Dextroamphetamine (Amphetamine Mixed Salts 10 Mg Tablet) 10 mg PO 1400 [facility] Last Admin: 05/05/22 14:12 Dose: 10 mg Benzocaine (Throat Lozenge, Medicated Lozenge) 1 lozenge MUCOUS MEM Q2H PRN PRN Reason: Sore Throat Last Admin: 04/03/22 10:20 Dose: 1 lozenge Bisacodyl (Bisacodyl 5 Mg Tablet.Dr) 10 mg PO DAILY PRN PRN Reason: Constipation Last Admin: 05/03/22 08:55 Dose: 10 mg Chlorpromazine HCl (Chlorpromazine Hcl 25 Mg Tablet) 150 mg PO BEDTIME [facility] Last Admin: 05/04/22 21:30 Dose: 150 mg Chlorpromazine HCl (Chlorpromazine Hcl 25 Mg Tablet) 150 mg PO DAILY PRN PRN Reason: intrusive thoughts Diphenhydramine HCl (Diphenhydramine Hcl 25 Mg Capsule) 50 mg PO BEDTIME PRN PRN Reason: Insomnia Last Admin: 04/24/22 22:00 Dose: 50 mg Docusate Sodium (Docusate Sodium 100 Mg Capsule) 100 mg PO BID [facility] Last Admin: 05/05/22 09:12 Dose: 100 mg Fluticasone Propionate (Fluticasone Propionate Nasal 16 Gm [place]) 1 spray NOSTRIL-B DAILY [facility] Last Admin: 05/05/22 09:15 Dose: 1 spray Guaifenesin/Dextromethorphan (Guaifenesin Dm 600/30 1 Tab Tab.Er.12h) 1 tab PO BID PRN PRN Reason: cough, congestion Last Admin: 04/13/22 09:11 Dose: 1 tab Hydroxyzine HCl (Hydroxyzine Hcl 25 Mg Tablet) 25 mg PO Q6H PRN PRN Reason: Anxiety Last Admin: 05/04/22 21:28 Dose: 25 mg Lactulose (Lactulose 20 Gm/30 Ml Solution) 10 gm PO DAILY PRN PRN Reason: Constipation Last Admin: 05/01/22 10:00 Dose: 10 gm [place] Carbonate ([place] Carbonate Er 300 Mg Tablet.Er) 600 mg PO BID [facility] Last Admin: 05/05/22 09:12 Dose: 600 mg Loperamide HCl (Loperamide Hcl 2 Mg Capsule) 4 mg PO Q4H PRN PRN Reason: Diarrhea Last Admin: 04/06/22 16:14 Dose: 4 mg Lurasidone HCl (Lurasidone Hcl 20 Mg Tablet) 20 mg PO 1900 [facility] Magnesium Hydroxide (Milk Of Magnesia 30 Ml Oral.Susp) 30 ml PO DAILY PRN PRN Reason: Constipation Last Admin: 03/25/22 11:00 Dose: 30 ml Melatonin (Melatonin 3 Mg Tablet) 12 mg PO BEDTIME [facility] Last Admin: 05/04/22 21:28 Dose: 12 mg Multi-Ingred Medicated Throat [place] (Throat [place], Medicated 177 Ml Bottle) 1 spray MUCOUS MEM Q2H PRN PRN Reason: Sore Throat Last Admin: 04/08/22 08:25 Dose: 1 spray Nicotine (Nicotine 14 Mg Patch.Td24) 14 mg TRANSDERMA DAILY PRN PRN Reason: nicotine craving Nicotine Polacrilex (Nicotine Polacrilex 2 Mg Gum) 2 mg BUCCAL Q2H PRN PRN Reason: nicotine withdrawal Last Admin: 03/29/22 09:32 Dose: 2 mg Patient Own Medication ( Desvenlafaxine 100 Mg Er Tablet) 1 tab PO DAILY [facility] Last Admin: 05/05/22 09:12 Dose: 1 tab Pt Own (Super B (Complex)) 1 tab PO DAILY [facility] Last Admin: 05/05/22 09:13 Dose: 1 tab Polyethylene Glycol (Polyethylene Glycol 3350 17 Gm Powd.Pack) 17 gm PO DAILY PRN PRN Reason: constipation Last Admin: 04/30/22 09:49 Dose: 17 gm Prazosin HCl 10 mg/ Prazosin (HCl 4 mg) 14 mg PO BEDTIME [facility] Last Admin: 05/04/22 21:29 Dose: 14 mg Saliva Substitute (Dry Mouth [place] 60 Ml [place]) 1 spray MUCOUS MEM Q2H PRN PRN Reason: Dry Mouth Trazodone HCl (Trazodone Hcl 100 Mg Tablet) 300 mg PO BEDTIME [facility] Last Admin: 05/04/22 21:29 Dose: 300 mg Vitamin D (Cholecalciferol (Vitamin D3) 25 Mcg Tablet) 50 mcg PO DAILY [facility] Last Admin: 05/05/22 09:12 Dose: 50 mcg Allergies Allergies Allergy/AdvReac Type Severity Reaction Status Date / Time Sulfa (Sulfonamide Allergy Unknown HIVES Verified 03/15/21 14:13 Antibiotics) [SULFA (SULFONAMIDE ANTIBIOTICS)] sulfamethoxazole Allergy Unknown HIVES Verified 03/15/21 14:13 [From BACTRIM] trimethoprim [From BACTRIM] Allergy Unknown HIVES Verified 03/15/21 14:13 oseltamivir [From Tamiflu] AdvReac Sensation Verified 09/29/21 11:20 of bugs crawling on skin. Assessment & Plan Assessment & Plan (1) PTSD (post-traumatic stress disorder): Status: Acute Code(s): F43.10 - Post-traumatic stress disorder, unspecified (2) MDD (major depressive disorder), recurrent severe, without psychosis: Status: Acute Code(s): F33.2 - Major depressive disorder, recurrent severe without psychotic features (3) Suicidal ideation: Status: Acute Code(s): R45.851 - Suicidal ideations Plan 36 yo non binary, prefers they/them pronouns with SI. S/P attempt via lying on railroad tracks [employer]. Several serious precipitants-holidays, anniversary of the loss of a child they planned to co-parent and therapist moved from the area at the end of Feb 2022 however pt will be continuing via telehelath. Plan: Message left for Nathen Mesa. Pt wanting to change Pristiq, possibly re-start Olanzapine. We would like his input if possible. Pristiq ordered from [employer] as it is not on formulary Collateral contact as needed Assist pt to re-establish safety. 03/24/22: Continue current plan. 03/25/22: Olanzapine prn 03/26/22: Lactulose for constipation Safety discussion with pt. Increase in anxiety after her ER experience. Working with team to manage her impulsivity. 03/27: Continue current regimen and plans with increase of trazodone to 300 mg 03/28: Continue current plans and regimen. 03/29: Continue current regimen and plans. A 3 day notice has been placed 03/30/22: On 03/31, Increase Adderall to 30 mg XR q a.m. 04/01/22: Increase Melatonin to 11 mg HS. 04/02/22: Continue current regime Mucinex DM prn 04/03/22: Azithromycin 500 mg today, 250 mg x 4 days thereafter 04/04/22: Continue current regime 04/05/22: IModium prn for diarrhea Monitor for increasing risk of self harm 04/06/22: Resolving physical sx of COVID Increasing emotional sx, feeling tired, worn, drained. 04/07/22: Discontinue Ibuprofen BMP, Li, TSH 04/08/22 Olanzapine 5 mg prn to alternate with 10 mg for SIBS, SI, impulsivity 04/08 continue tx. 04/09 continue tx. 04/10 continue tx. 04/11 continue tx. -monitor for sinus discomfort -check lithium level tomorrow morning -remain on one-to-one 04/12 pt would like to keep lithium level at 0.7, currently at 1.0, will decrease morning dose to 450mg po daily and keep 600mg po qhs. continue one to one. 04/13 continue tx. 04/14 continue tx, re check lithium level next . 04/15 ocontinue tx. 04/16 add benadryl 50mg po qhs one time but if helpful may want to schedule. 04/17 continue current treatment regimen with Benadryl q.h.s. ?Discussed case with nursing; met with patient; reviewed vitals and mildly tachycardic but otherwise WNL 04/18 Discussed case with nursing; met with patient; reviewed vitals and mildly hypertensive. Remain on one-to-one as patient reports active SI 04/21/22- Continue current plan Possible family meeting 04/23. 04/22/22- Family meeting 04/28 1pm Perphenazine 4 mg bid prn dissociative sx, anxiety to assist with grounding 04/24/22- Continue current regime 04/26/22-Continue current plan. Preparing for family meeting 04/28. Discontinue Perphenazine prn Latuda 20 mg hs. 04/27/22: Continue current plan. Preparing for family meeting 04/28. Encouraged Sandi to make a brief outline to refer to in case of distraction/anxiety during the meeting. 04/29/22: Discontinue Olanzapine Discontinue Latuda Chlorpromazaine 100 mg HS and daily prn 04/30/22: Increase Chlorpromazine to 200 mg HS and daily prn. 05/01: continue tx pln. 05/02: Continue current plan. 05/03/22: Decrease chlorpromazine to 150 mg HS and daily prn Will trial pt off one to one on 11-7 shift beginning on Tuesday evening. 05/05/22: Continue current plan Patient educated on: therapeutic strategies Informed Consent: understands Reason for contiued inpatient stay Substantial Risk for: harm to self and rapid decompensation Time Spent With Patient Time: Total time managing care of this patient today 15 minutes.
[2022-05-05 21:55] VITALS: BP 109/59; PULSE 94; TEMP 36.3; O2SAT 100
[2022-05-05] MEDS: traZODone HCL 100 MG TABLET 300 MG PO (22:01)
[2022-05-05] MEDS: PRAZOSIN HCL 14 MG PO (22:02)
[2022-05-05] MEDS: hydrOXYzine HCL 25 MG TABLET PO (22:02)
[2022-05-05] MEDS: Melatonin 3 MG TABLET 12 MG PO (22:03)
[2022-05-05] MEDS: chlorproMAZINE HCl 25 MG TABLET 150 MG PO (22:03)
[2022-05-05] MEDS: Lurasidone HCl 20 MG TABLET PO (22:13)
--- NOTE | 2022-05-06 00:21 | PC.NURSE ---
Patient mentioned to tw that she was feeling irritable and overwhelmed while she was sitting in the kitchen. Patient was enouraged to go to her room and relax for 15-30 minutes. Patient did go to her room for about 30 minutes and then was able to come back to the kitchen and felt less irritable.
[2022-05-06] MEDS: Cholecalciferol (Vitamin D3) 25 MCG TABLET 50 MCG PO (09:05)
[2022-05-06] MEDS: ALPRAZolam 0.5 MG TABLET 1 MG PO ×3 (09:05→21:34)
[2022-05-06] MEDS: Lithium Carbonate ER 300 MG TABLET.ER 600 MG PO ×2 (09:05→20:08)
[2022-05-06] MEDS: Dextroamphetamine/Amphetamine XR 10 MG CAP.ER.24H 30 MG PO (09:05)
[2022-05-06] MEDS: Docusate Sodium 100 MG CAPSULE PO ×2 (09:05→20:10)
[2022-05-06 09:21] VITALS: BP 121/78; PULSE 99; RESP 16; TEMP 36; O2SAT 97
[2022-05-06] MEDS: Fluticasone Propionate Nasal 16 GM SPRAY 1 SPRAY NOSTRIL-B (10:36)
[2022-05-06] MEDS: Acetaminophen 325 MG TABLET 650 MG PO ×2 (11:03→21:34)
--- NOTE | 2022-05-06 12:22 | P.PNPSI_ITS ---
Subjective Subjective Date of Service: 05/06/22 Reason For Visit: Depression SI PTSD Subjective Notes: Conditional Voluntary Healthcare Proxy: No Guardianship: No Medical Problems Affecting Mental Status: No Interim History: Reviewed in team with nursing. Pt having menses, day 2 with irritability, tearfulness, sensitivity I am ready to go to being off one to one on nights and can we do 10am to 3pm ? Feeling some more confidence Discussed room-mates distress-states she would like to remain her room-mate to offer support, grounding and example as she is coming out of her distressful time. Will let us know if this gets to be too much and is derailing for her Medication Compliance: Yes Side effects from medications: No Attending Groups: Yes Review of Systems Acute medical concerns: No Medical Review of Systems: unchanged Mental Status Exam Mental Status Exam Narrative: NAD. Normally ambulation. Motor activity calm. Patient Appearance: Appropriate Patient Orientation: Person, Place, Time and Situation Level of Consciousness: Alert Patient Behavior: Appropriate, Talkative, Cooperative and Good Eye Contact Mood Description: Constricted Affect Description: Flat Patient Cognition Impaired: No Ability to Follow Directions: Good Speech Pattern: Spontaneous Speech Memory Description: Intact Judgement: Good Diagnostics Vital Signs (24Hr): Vital Signs - 24 hr 05/05/22 21:55 05/06/22 09:21 Temperature 97.4 F 96.8 F Pulse Rate 94 99 Respiratory Rate 16 Blood Pressure 109/59 L 121/78 Pulse Oximetry 100 97 Oxygen Delivery Method Room Air BMI result Body Mass Index 40.3 Labs 05/05/22 08:29 05/05/22 08:29 Labs: Laboratory Results - last 48 hr 05/05/22 05/05/22 08:29 08:29 WBC 9.0 RBC 4.30 Hgb 13.0 Hct 38.7 MCV 90.0 MCH 30.2 MCHC 33.6 RDW 13.1 Plt Count 264 D MPV 10.1 Immature Gran % (Auto) 0.4 Neut % (Auto) 66.4 Lymph % (Auto) 25.7 [place] % (Auto) 4.9 Eos % (Auto) 2.4 Baso % (Auto) 0.2 Lymph # (Auto) 2.3 [place] # (Auto) 0.4 Eos # (Auto) 0.2 Baso # (Auto) 0.0 Abs Immat Gran (auto) 0.04 H Absolute Neuts (auto) 6.0 Absolute Nucleated RBC 0.000 Nucleated RBC % (auto) 0.0 Sodium 141 Potassium 4.4 Chloride 111 H Carbon Dioxide 23 Anion Gap 11 L BUN 9 Creatinine 0.79 Estim Creat Clear Calc 127.0 Estimated GFR > 60 Random Glucose 86 Calcium 8.7 Total Bilirubin 0.2 AST 16 ALT 18 Alkaline Phosphatase 58 Total Protein 5.5 L Albumin 3.4 L Medications Medications Current Medications Acetaminophen (Acetaminophen 325 Mg Tablet) 650 mg PO Q6H PRN PRN Reason: Headache/Pain Mild Scale (1-3) Last Admin: 05/06/22 11:03 Dose: 650 mg Al Hydroxide/Mg Hydroxide (Magnesium Hydrox/Alum Hydrox 30 Ml Oral.Susp) 30 ml PO Q6H PRN PRN Reason: Heartburn/Nausea Last Admin: 04/25/22 10:25 Dose: 30 ml Alprazolam (Alprazolam 0.5 Mg Tablet) 1 mg PO QID PRN PRN Reason: Anxiety Last Admin: 05/06/22 09:05 Dose: 1 mg Amphetamine/Dextroamphetamine (Dextroamphetamine/Amphetamine Xr 10 Mg Cap.Er.24h) 30 mg PO DAILY [facility] Last Admin: 05/06/22 09:05 Dose: 30 mg Amphetamine/Dextroamphetamine (Amphetamine Mixed Salts 10 Mg Tablet) 10 mg PO 1400 [facility] Last Admin: 05/05/22 14:12 Dose: 10 mg Benzocaine (Throat Lozenge, Medicated Lozenge) 1 lozenge MUCOUS MEM Q2H PRN PRN Reason: Sore Throat Last Admin: 04/03/22 10:20 Dose: 1 lozenge Bisacodyl (Bisacodyl 5 Mg Tablet.Dr) 10 mg PO DAILY PRN PRN Reason: Constipation Last Admin: 05/03/22 08:55 Dose: 10 mg Chlorpromazine HCl (Chlorpromazine Hcl 25 Mg Tablet) 150 mg PO BEDTIME [facility] Last Admin: 05/05/22 22:03 Dose: 150 mg Chlorpromazine HCl (Chlorpromazine Hcl 25 Mg Tablet) 150 mg PO DAILY PRN PRN Reason: intrusive thoughts Diphenhydramine HCl (Diphenhydramine Hcl 25 Mg Capsule) 50 mg PO BEDTIME PRN PRN Reason: Insomnia Last Admin: 04/24/22 22:00 Dose: 50 mg Docusate Sodium (Docusate Sodium 100 Mg Capsule) 100 mg PO BID [facility] Last Admin: 05/06/22 09:05 Dose: 100 mg Fluticasone Propionate (Fluticasone Propionate Nasal 16 Gm [place]) 1 spray NOSTRIL-B DAILY [facility] Last Admin: 05/06/22 10:36 Dose: 1 spray Guaifenesin/Dextromethorphan (Guaifenesin Dm 600/30 1 Tab Tab.Er.12h) 1 tab PO BID PRN PRN Reason: cough, congestion Last Admin: 04/13/22 09:11 Dose: 1 tab Hydroxyzine HCl (Hydroxyzine Hcl 25 Mg Tablet) 25 mg PO Q6H PRN PRN Reason: Anxiety Last Admin: 05/05/22 22:02 Dose: 25 mg Lactulose (Lactulose 20 Gm/30 Ml Solution) 10 gm PO DAILY PRN PRN Reason: Constipation Last Admin: 05/01/22 10:00 Dose: 10 gm [place] Carbonate ([place] Carbonate Er 300 Mg Tablet.Er) 600 mg PO BID [facility] Last Admin: 05/06/22 09:05 Dose: 600 mg Loperamide HCl (Loperamide Hcl 2 Mg Capsule) 4 mg PO Q4H PRN PRN Reason: Diarrhea Last Admin: 04/06/22 16:14 Dose: 4 mg Lurasidone HCl (Lurasidone Hcl 20 Mg Tablet) 20 mg PO 1900 [facility] Last Admin: 05/05/22 22:13 Dose: 20 mg Magnesium Hydroxide (Milk Of Magnesia 30 Ml Oral.Susp) 30 ml PO DAILY PRN PRN Reason: Constipation Last Admin: 03/25/22 11:00 Dose: 30 ml Melatonin (Melatonin 3 Mg Tablet) 12 mg PO BEDTIME [facility] Last Admin: 05/05/22 22:03 Dose: 12 mg Multi-Ingred Medicated Throat [place] (Throat [place], Medicated 177 Ml Bottle) 1 spray MUCOUS MEM Q2H PRN PRN Reason: Sore Throat Last Admin: 04/08/22 08:25 Dose: 1 spray Nicotine (Nicotine 14 Mg Patch.Td24) 14 mg TRANSDERMA DAILY PRN PRN Reason: nicotine craving Nicotine Polacrilex (Nicotine Polacrilex 2 Mg Gum) 2 mg BUCCAL Q2H PRN PRN Reason: nicotine withdrawal Last Admin: 03/29/22 09:32 Dose: 2 mg Patient Own Medication ( Desvenlafaxine 100 Mg Er Tablet) 1 tab PO DAILY [facility] Last Admin: 05/06/22 09:05 Dose: 1 tab Pt Own (Super B (Complex)) 1 tab PO DAILY [facility] Last Admin: 05/06/22 09:05 Dose: 1 tab Polyethylene Glycol (Polyethylene Glycol 3350 17 Gm Powd.Pack) 17 gm PO DAILY PRN PRN Reason: constipation Last Admin: 04/30/22 09:49 Dose: 17 gm Prazosin HCl 10 mg/ Prazosin (HCl 4 mg) 14 mg PO BEDTIME [facility] Last Admin: 05/05/22 22:02 Dose: 14 mg Saliva Substitute (Dry Mouth [place] 60 Ml [place]) 1 spray MUCOUS MEM Q2H PRN PRN Reason: Dry Mouth Trazodone HCl (Trazodone Hcl 100 Mg Tablet) 300 mg PO BEDTIME [facility] Last Admin: 05/05/22 22:01 Dose: 300 mg Vitamin D (Cholecalciferol (Vitamin D3) 25 Mcg Tablet) 50 mcg PO DAILY [facility] Last Admin: 05/06/22 09:05 Dose: 50 mcg Allergies Allergies Allergy/AdvReac Type Severity Reaction Status Date / Time Sulfa (Sulfonamide Allergy Unknown Hives Verified 05/06/22 09:25 Antibiotics) [SULFA (SULFONAMIDE ANTIBIOTICS)] sulfamethoxazole Allergy Unknown Hives Verified 05/06/22 09:25 [From BACTRIM] trimethoprim [From BACTRIM] Allergy Unknown Hives Verified 05/06/22 09:25 oseltamivir [From Tamiflu] AdvReac Sensation Verified 09/29/21 11:20 of bugs crawling on skin. Assessment & Plan Assessment & Plan (1) PTSD (post-traumatic stress disorder): Status: Acute Code(s): F43.10 - Post-traumatic stress disorder, unspecified (2) MDD (major depressive disorder), recurrent severe, without psychosis: Status: Acute Code(s): F33.2 - Major depressive disorder, recurrent severe without psychotic features (3) Suicidal ideation: Status: Acute Code(s): R45.851 - Suicidal ideations Plan 36 yo non binary, prefers they/them pronouns with SI. S/P attempt via lying on railroad tracks [employer] GR[employer]. Several serious precipitants-holidays, anniversary of the loss of a child they planned to co-parent and therapist moved from the area at the end of Feb 2022 however pt will be continuing via tele[employer]ath. Plan: Message left for Nathen Mesa. Pt wanting to change Pristiq, possibly re-start Olanzapine. We would like his input if possible. Pristiq ordered from [employer] as it is not on formulary Collateral contact as needed Assist pt to re-establish safety. 03/24/22: Continue current plan. 03/25/22: Olanzapine prn 03/26/22: Lactulose for constipation Safety discussion with pt. Increase in anxiety after her ER experience. Working with team to manage her impulsivity. 03/27: Continue current regimen and plans with increase of trazodone to 300 mg 03/28: Continue current plans and regimen. 03/29: Continue current regimen and plans. A 3 day notice has been placed 03/30/22: On 03/31, Increase Adderall to 30 mg XR q a.m. 04/01/22: Increase Melatonin to 11 mg HS. 04/02/22: Continue current regime Mucinex DM prn 04/03/22: Azithromycin 500 mg today, 250 mg x 4 days thereafter 04/04/22: Continue current regime 04/05/22: IModium prn for diarrhea Monitor for increasing risk of self harm 04/06/22: Resolving physical sx of COVID Increasing emotional sx, feeling tired, worn, drained. 04/07/22: Discontinue Ibuprofen BMP, Li, TSH 04/08/22 Olanzapine 5 mg prn to alternate with 10 mg for SIBS, SI, impulsivity 04/08 continue tx. 04/09 continue tx. 04/10 continue tx. 04/11 continue tx. -monitor for sinus discomfort -check lithium level tomorrow morning -remain on one-to-one 04/12 pt would like to keep lithium level at 0.7, currently at 1.0, will decrease morning dose to 450mg po daily and keep 600mg po qhs. continue one to . 04/13 continue tx. 04/14 continue tx, re check lithium level next . 04/15 ocontinue tx. 04/16 add benadryl 50mg po qhs one time but if helpful may want to schedule. 04/17 continue current treatment regimen with Benadryl q.h.s. ?Discussed case with nursing; met with patient; reviewed vitals and mildly tachycardic but otherwise WNL 04/18 Discussed case with nursing; met with patient; reviewed vitals and mildly hypertensive. Remain on one-to-one as patient reports active SI 04/21/22- Continue current plan Possible family meeting 04/23. 04/22/22- Family meeting 04/28 1pm Perphenazine 4 mg bid prn dissociative sx, anxiety to assist with grounding 04/24/22- Continue current regime 04/26/22-Continue current plan. Preparing for family meeting 04/28. Discontinue Perphenazine prn Latuda 20 mg hs. 04/27/22: Continue current plan. Preparing for family meeting 04/28. Encouraged Sandi to make a brief outline to refer to in case of distraction/anxiety during the meeting. 04/29/22: Discontinue Olanzapine Discontinue Latuda Chlorpromazaine 100 mg HS and daily prn 04/30/22: Increase Chlorpromazine to 200 mg HS and daily prn. 05/01: continue tx pln. 05/02: Continue current plan. 05/03/22: Decrease chlorpromazine to 150 mg HS and daily prn Will trial pt off one to one on 11-7 shift beginning on Tuesday evening. 05/06/22: Decrease one to one on 05/07/22 from 10am-3pm. Patient educated on: therapeutic strategies Informed Consent: understands Reason for contiued inpatient stay Substantial Risk for: harm to self Time Spent With Patient Time: Total time managing care of this patient today 15 minutes.
[2022-05-06] MEDS: Amphetamine Mixed Salts 10 MG TABLET PO (14:10)
[2022-05-06 18:00] VITALS: BP 142/84; PULSE 118; RESP 16; TEMP 36.6; O2SAT 98
[2022-05-06] MEDS: Lurasidone HCl 20 MG TABLET PO (18:50)
[2022-05-06] MEDS: chlorproMAZINE HCl 25 MG TABLET 150 MG PO (20:08)
[2022-05-06] MEDS: PRAZOSIN HCL 14 MG PO (20:08)
[2022-05-06] MEDS: Melatonin 3 MG TABLET 12 MG PO (20:09)
[2022-05-06] MEDS: traZODone HCL 100 MG TABLET 300 MG PO (20:10)
[2022-05-07] MEDS: Dextroamphetamine/Amphetamine XR 10 MG CAP.ER.24H 30 MG PO (08:54)
[2022-05-07] MEDS: Cholecalciferol (Vitamin D3) 25 MCG TABLET 50 MCG PO (08:54)
[2022-05-07] MEDS: Docusate Sodium 100 MG CAPSULE PO ×2 (08:54→21:42)
[2022-05-07] MEDS: Fluticasone Propionate Nasal 16 GM SPRAY 1 SPRAY NOSTRIL-B (08:55)
[2022-05-07] MEDS: Lithium Carbonate ER 300 MG TABLET.ER 600 MG PO ×2 (08:55→21:42)
[2022-05-07] MEDS: ALPRAZolam 0.5 MG TABLET 1 MG PO ×2 (08:55→21:41)
[2022-05-07 09:00] VITALS: BP 119/70; PULSE 106; RESP 16; TEMP 35.9; O2SAT 97
[2022-05-07] MEDS: hydrOXYzine HCL 25 MG TABLET PO (12:32)
[2022-05-07] MEDS: Amphetamine Mixed Salts 10 MG TABLET PO (13:31)
[2022-05-07] MEDS: chlorproMAZINE HCl 25 MG TABLET 150 MG PO (13:31)
--- NOTE | 2022-05-07 15:40 | HO.PSYCHPN ---
Subjective Subjective Date of Service: 05/07/22 Reason For Visit: Depression SI PTSD Subjective Notes: Conditional Voluntary Healthcare Proxy: No Guardianship: No Medical Problems Affecting Mental Status: No Interim History: Difficult day-concern for room-mate who is struggling, not feeling heard by team, coming off -. Today, pt is off 04-04 10am-3pm and 11pm-7am. [place] lonely and a bit lost when alone today. Latuda increase will give one more day as she has felt more labile since it started-will monitor. Medication Compliance: Yes Side effects from medications: No Attending Groups: Yes Review of Systems Acute medical concerns: No Medical Review of Systems: unchanged Mental Status Exam Mental Status Exam Narrative: NAD. Normally ambulation. Motor activity calm. Patient Appearance: Appropriate Patient Orientation: Person, Place, Time and Situation Level of Consciousness: Alert Patient Behavior: Appropriate, Talkative, Cooperative and Good Eye Contact Mood Description: Constricted Affect Description: Flat Patient Cognition Impaired: No Ability to Follow Directions: Good Speech Pattern: Spontaneous Speech Memory Description: Intact Judgement: Good Diagnostics Vital Signs (24Hr): Vital Signs - 24 hr 05/06/22 18:00 05/07/22 09:00 Temperature 97.8 F 96.6 F L Pulse Rate 118 H 106 H Respiratory Rate 16 16 Blood Pressure 142/84 H 119/70 Pulse Oximetry 98 97 Oxygen Delivery Method Room Air BMI result Body Mass Index 40.3 Labs 05/05/22 08:29 05/05/22 08:29 Medications Medications Current Medications Acetaminophen (Acetaminophen 325 Mg Tablet) 650 mg PO Q6H PRN PRN Reason: Headache/Pain Mild Scale (1-3) Last Admin: 05/06/22 21:34 Dose: 650 mg Al Hydroxide/Mg Hydroxide (Magnesium Hydrox/Alum Hydrox 30 Ml Oral.Susp) 30 ml PO Q6H PRN PRN Reason: Heartburn/Nausea Last Admin: 04/25/22 10:25 Dose: 30 ml Alprazolam (Alprazolam 0.5 Mg Tablet) 1 mg PO QID PRN PRN Reason: Anxiety Last Admin: 05/07/22 08:55 Dose: 1 mg Amphetamine/Dextroamphetamine (Dextroamphetamine/Amphetamine Xr 10 Mg Cap.Er.24h) 30 mg PO DAILY [facility] Last Admin: 05/07/22 08:54 Dose: 30 mg Amphetamine/Dextroamphetamine (Amphetamine Mixed Salts 10 Mg Tablet) 10 mg PO 1400 [facility] Last Admin: 05/07/22 13:31 Dose: 10 mg Benzocaine (Throat Lozenge, Medicated Lozenge) 1 lozenge MUCOUS MEM Q2H PRN PRN Reason: Sore Throat Last Admin: 04/03/22 10:20 Dose: 1 lozenge Bisacodyl (Bisacodyl 5 Mg Tablet.Dr) 10 mg PO DAILY PRN PRN Reason: Constipation Last Admin: 05/03/22 08:55 Dose: 10 mg Chlorpromazine HCl (Chlorpromazine Hcl 25 Mg Tablet) 125 mg PO DAILY PRN PRN Reason: intrusive thoughts Chlorpromazine HCl (Chlorpromazine Hcl 25 Mg Tablet) 125 mg PO BEDTIME [facility] Diphenhydramine HCl (Diphenhydramine Hcl 25 Mg Capsule) 50 mg PO BEDTIME PRN PRN Reason: Insomnia Last Admin: 04/24/22 22:00 Dose: 50 mg Docusate Sodium (Docusate Sodium 100 Mg Capsule) 100 mg PO BID [facility] Last Admin: 05/07/22 08:54 Dose: 100 mg Fluticasone Propionate (Fluticasone Propionate Nasal 16 Gm [place]) 1 spray NOSTRIL-B DAILY [facility] Last Admin: 05/07/22 08:55 Dose: 1 spray Guaifenesin/Dextromethorphan (Guaifenesin Dm 600/30 1 Tab Tab.Er.12h) 1 tab PO BID PRN PRN Reason: cough, congestion Last Admin: 04/13/22 09:11 Dose: 1 tab Hydroxyzine HCl (Hydroxyzine Hcl 25 Mg Tablet) 25 mg PO Q6H PRN PRN Reason: Anxiety Last Admin: 05/07/22 12:32 Dose: 25 mg Lactulose (Lactulose 20 Gm/30 Ml Solution) 10 gm PO DAILY PRN PRN Reason: Constipation Last Admin: 05/01/22 10:00 Dose: 10 gm [place] Carbonate ([place] Carbonate Er 300 Mg Tablet.Er) 600 mg PO BID [facility] Last Admin: 05/07/22 08:55 Dose: 600 mg Loperamide HCl (Loperamide Hcl 2 Mg Capsule) 4 mg PO Q4H PRN PRN Reason: Diarrhea Last Admin: 04/06/22 16:14 Dose: 4 mg Lurasidone HCl (Lurasidone Hcl 20 Mg Tablet) 20 mg PO 1900 [facility] Last Admin: 05/06/22 18:50 Dose: 20 mg Magnesium Hydroxide (Milk Of Magnesia 30 Ml Oral.Susp) 30 ml PO DAILY PRN PRN Reason: Constipation Last Admin: 03/25/22 11:00 Dose: 30 ml Melatonin (Melatonin 3 Mg Tablet) 12 mg PO BEDTIME [facility] Last Admin: 05/06/22 20:09 Dose: 12 mg Multi-Ingred Medicated Throat [place] (Throat [place], Medicated 177 Ml Bottle) 1 spray MUCOUS MEM Q2H PRN PRN Reason: Sore Throat Last Admin: 04/08/22 08:25 Dose: 1 spray Nicotine (Nicotine 14 Mg Patch.Td24) 14 mg TRANSDERMA DAILY PRN PRN Reason: nicotine craving Nicotine Polacrilex (Nicotine Polacrilex 2 Mg Gum) 2 mg BUCCAL Q2H PRN PRN Reason: nicotine withdrawal Last Admin: 03/29/22 09:32 Dose: 2 mg Patient Own Medication ( Desvenlafaxine 100 Mg Er Tablet) 1 tab PO DAILY [facility] Last Admin: 05/07/22 09:03 Dose: 1 tab Pt Own (Super B (Complex)) 1 tab PO DAILY [facility] Last Admin: 05/07/22 08:56 Dose: 1 tab Polyethylene Glycol (Polyethylene Glycol 3350 17 Gm Powd.Pack) 17 gm PO DAILY PRN PRN Reason: constipation Last Admin: 04/30/22 09:49 Dose: 17 gm Prazosin HCl 10 mg/ Prazosin (HCl 4 mg) 14 mg PO BEDTIME [facility] Last Admin: 05/06/22 20:08 Dose: 14 mg Saliva Substitute (Dry Mouth [place] 60 Ml [place]) 1 spray MUCOUS MEM Q2H PRN PRN Reason: Dry Mouth Trazodone HCl (Trazodone Hcl 100 Mg Tablet) 300 mg PO BEDTIME [facility] Last Admin: 05/06/22 20:10 Dose: 300 mg Vitamin D (Cholecalciferol (Vitamin D3) 25 Mcg Tablet) 50 mcg PO DAILY [facility] Last Admin: 05/07/22 08:54 Dose: 50 mcg Allergies Allergies Allergy/AdvReac Type Severity Reaction Status Date / Time Sulfa (Sulfonamide Allergy Unknown Hives Verified 05/06/22 09:25 Antibiotics) [SULFA (SULFONAMIDE ANTIBIOTICS)] sulfamethoxazole Allergy Unknown Hives Verified 05/06/22 09:25 [From BACTRIM] trimethoprim [From BACTRIM] Allergy Unknown Hives Verified 05/06/22 09:25 oseltamivir [From Tamiflu] AdvReac Sensation Verified 09/29/21 11:20 of bugs crawling on skin. Assessment & Plan Assessment & Plan (1) PTSD (post-traumatic stress disorder): Status: Acute Code(s): F43.10 - Post-traumatic stress disorder, unspecified (2) MDD (major depressive disorder), recurrent severe, without psychosis: Status: Acute Code(s): F33.2 - Major depressive disorder, recurrent severe without psychotic features (3) Suicidal ideation: Status: Acute Code(s): R45.851 - Suicidal ideations Plan 36 yo non binary, prefers they/them pronouns with SI. S/P attempt via lying on railroad tracks [employer]. Several serious precipitants-holidays, anniversary of the loss of a child they planned to co-parent and therapist moved from the area at the end of Feb 2022 however pt will be continuing via [employer]. Plan: Message left for Nathen Mesa. Pt wanting to change Pristiq, possibly re-start Olanzapine. We would like his input if possible. Pristiq ordered from [employer] as it is not on formulary Collateral contact as needed Assist pt to re-establish safety. 03/24/22: Continue current plan. 03/25/22: Olanzapine prn 03/26/22: Lactulose for constipation Safety discussion with pt. Increase in anxiety after her ER experience. Working with team to manage her impulsivity. 03/27: Continue current regimen and plans with increase of trazodone to 300 mg 03/28: Continue current plans and regimen. 03/29: Continue current regimen and plans. A 3 day notice has been placed 03/30/22: On 03/31, Increase Adderall to 30 mg XR q a.m. 04/01/22: Increase Melatonin to 11 mg HS. 04/02/22: Continue current regime Mucinex DM prn 04/03/22: Azithromycin 500 mg today, 250 mg x 4 days thereafter 04/04/22: Continue current regime 04/05/22: IModium prn for diarrhea Monitor for increasing risk of self harm 04/06/22: Resolving physical sx of COVID Increasing emotional sx, feeling tired, worn, drained. 04/07/22: Discontinue Ibuprofen BMP, Li, TSH 04/08/22 Olanzapine 5 mg prn to alternate with 10 mg for SIBS, SI, impulsivity 04/08 continue tx. 04/09 continue tx. 04/10 continue tx. 04/11 continue tx. -monitor for sinus discomfort -check lithium level tomorrow morning -remain on one-to-one 04/12 pt would like to keep lithium level at 0.7, currently at 1.0, will decrease morning dose to 450mg po daily and keep 600mg po qhs. continue one to one. 04/13 continue tx. 04/14 continue tx, re check lithium level next . 04/15 ocontinue tx. 04/16 add benadryl 50mg po qhs one time but if helpful may want to schedule. 04/17 continue current treatment regimen with Benadryl q.h.s. ?Discussed case with nursing; met with patient; reviewed vitals and mildly tachycardic but otherwise WNL 04/18 Discussed case with nursing; met with patient; reviewed vitals and mildly hypertensive. Remain on one-to-one as patient reports active SI 04/21/22- Continue current plan Possible family meeting 04/23. 04/22/22- Family meeting 04/28 1pm Perphenazine 4 mg bid prn dissociative sx, anxiety to assist with grounding 04/24/22- Continue current regime 04/26/22-Continue current plan. Preparing for family meeting 04/28. Discontinue Perphenazine prn Latuda 20 mg hs. 04/27/22: Continue current plan. Preparing for family meeting 04/28. Encouraged Sandi to make a brief outline to refer to in case of distraction/anxiety during the meeting. 04/29/22: Discontinue Olanzapine Discontinue Latuda Chlorpromazaine 100 mg HS and daily prn 04/30/22: Increase Chlorpromazine to 200 mg HS and daily prn. 05/01: continue tx pln. 05/02: Continue current plan. 05/03/22: Decrease chlorpromazine to 150 mg HS and daily prn Will trial pt off one to one on 02-08 shift beginning on Tuesday evening. 2/2/23: Decrease one to one on 05/07/22 from 10am-3pm. 05/07/22: Decrease CPZ to 125 mg HS and prn On 05/08 increase Latuda to 40 mg 1900 Patient educated on: therapeutic strategies Informed Consent: understands Reason for contiued inpatient stay Substantial Risk for: harm to self and rapid decompensation Time Spent With Patient Time: Total time managing care of this patient today 20 minutes.
[2022-05-07] MEDS: Lurasidone HCl 20 MG TABLET PO (20:09)
[2022-05-07] MEDS: PRAZOSIN HCL 14 MG PO (21:40)
[2022-05-07] MEDS: traZODone HCL 100 MG TABLET 300 MG PO (21:41)
[2022-05-07] MEDS: chlorproMAZINE HCl 25 MG TABLET 125 MG PO (21:41)
[2022-05-07] MEDS: Melatonin 3 MG TABLET 12 MG PO (21:41)
[2022-05-07 21:45] VITALS: BP 124/85; PULSE 112; RESP 16; TEMP 36.8; O2SAT 98
[2022-05-08] MEDS: Acetaminophen 325 MG TABLET 650 MG PO (06:52)
[2022-05-08] MEDS: Fluticasone Propionate Nasal 16 GM SPRAY 1 SPRAY NOSTRIL-B (08:17)
[2022-05-08] MEDS: Lithium Carbonate ER 300 MG TABLET.ER 600 MG PO ×2 (08:18→21:15)
[2022-05-08] MEDS: Cholecalciferol (Vitamin D3) 25 MCG TABLET 50 MCG PO (08:18)
[2022-05-08] MEDS: ALPRAZolam 0.5 MG TABLET 1 MG PO ×2 (08:18→17:12)
[2022-05-08] MEDS: Dextroamphetamine/Amphetamine XR 10 MG CAP.ER.24H 30 MG PO (08:18)
[2022-05-08] MEDS: Docusate Sodium 100 MG CAPSULE PO ×2 (08:18→21:29)
[2022-05-08 08:57] VITALS: BP 135/65; PULSE 86; RESP 16; TEMP 36; O2SAT 98
[2022-05-08] MEDS: hydrOXYzine HCL 25 MG TABLET PO ×2 (12:01→21:28)
[2022-05-08] MEDS: polyethylene glycoL 3350 17 GM POWD.PACK PO (12:01)
[2022-05-08] MEDS: bisacodyL 5 MG TABLET.DR 10 MG PO (12:01)
[2022-05-08] MEDS: chlorproMAZINE HCl 100 MG TABLET PO (14:41)
--- NOTE | 2022-05-08 17:14 | P.PNPSI_ITS ---
Subjective Subjective Date of Service: 05/08/22 Reason For Visit: Depression SI PTSD Interim History: met with patient. Discussed with Nursing. Chart reviewed. Overall transitioning from one-to-one observation with 5 minutes checks from 10:00 to 15:00. Patient today reports the last few days have been difficult, but they are hopefully turning things around mood razo and feeling positive that they are transitioning off one-to-one observation. Feels positive around Thorazine, but does report feeling sedated with current p.r.n. dose which was 150 mg as needed and lower to 125 mg. We did discuss therefore lowering this further to 100 mg. Does report that the chlorpromazine is helpful when feeling anxious or stressed, but does not want to feel over sedated. Reports feeling positive about Geodon 40 mg. Denied active SI plans or intent. Does report chronic passive wish and intermittent suicidal thoughts. No psychosis or agitation. Feeling supported. Medication Compliance: Yes Side effects from medications: No Attending Groups: Intermittent Review of Systems Acute medical concerns: No Review of Systems Review of Systems Yes all other systems are reviewed and are negative Mental Status Exam Mental Status Exam Narrative: Pleasant. Engaged. Organized. Fairly presented. Reports some depression and anxiety. Affect reactive with some anxiety. Denies current SI or HI. No agitation psychosis. Insight and judgment fair Diagnostics Vital Signs (24Hr): Vital Signs - 24 hr 05/07/22 21:45 05/08/22 08:57 Temperature 98.2 F 96.8 F Pulse Rate 112 H 86 Respiratory Rate 16 16 Blood Pressure 124/85 135/65 Pulse Oximetry 98 98 Oxygen Delivery Method Room Air Room Air BMI result Body Mass Index 40.3 Labs 05/05/22 08:29 05/05/22 08:29 Medications Medications Current Medications Acetaminophen (Acetaminophen 325 Mg Tablet) 650 mg PO Q6H PRN PRN Reason: Headache/Pain Mild Scale (1-3) Last Admin: 05/08/22 06:52 Dose: 650 mg Al Hydroxide/Mg Hydroxide (Magnesium Hydrox/Alum Hydrox 30 Ml Oral.Susp) 30 ml PO Q6H PRN PRN Reason: Heartburn/Nausea Last Admin: 04/25/22 10:25 Dose: 30 ml Alprazolam (Alprazolam 0.5 Mg Tablet) 1 mg PO QID PRN PRN Reason: Anxiety Last Admin: 05/08/22 17:12 Dose: 1 mg Amphetamine/Dextroamphetamine (Dextroamphetamine/Amphetamine Xr 10 Mg Cap.Er.24h) 30 mg PO DAILY [facility] Last Admin: 05/08/22 08:18 Dose: 30 mg Amphetamine/Dextroamphetamine (Amphetamine Mixed Salts 10 Mg Tablet) 10 mg PO 1400 [facility] Last Admin: 05/08/22 14:44 Dose: Not Given Benzocaine (Throat Lozenge, Medicated Lozenge) 1 lozenge MUCOUS MEM Q2H PRN PRN Reason: Sore Throat Last Admin: 04/03/22 10:20 Dose: 1 lozenge Bisacodyl (Bisacodyl 5 Mg Tablet.Dr) 10 mg PO DAILY PRN PRN Reason: Constipation Last Admin: 05/08/22 12:01 Dose: 10 mg Chlorpromazine HCl (Chlorpromazine Hcl 25 Mg Tablet) 125 mg PO BEDTIME [facility] Last Admin: 05/07/22 21:41 Dose: 125 mg Chlorpromazine HCl (Chlorpromazine Hcl 100 Mg Tablet) 100 mg PO DAILY PRN PRN Reason: intrusive thoughts Last Admin: 05/08/22 14:41 Dose: 100 mg Diphenhydramine HCl (Diphenhydramine Hcl 25 Mg Capsule) 50 mg PO BEDTIME PRN PRN Reason: Insomnia Last Admin: 04/24/22 22:00 Dose: 50 mg Docusate Sodium (Docusate Sodium 100 Mg Capsule) 100 mg PO BID [facility] Last Admin: 05/08/22 08:18 Dose: 100 mg Fluticasone Propionate (Fluticasone Propionate Nasal 16 Gm [place]) 1 spray NOSTRIL-B DAILY [facility] Last Admin: 05/08/22 08:17 Dose: 1 spray Guaifenesin/Dextromethorphan (Guaifenesin Dm 600/30 1 Tab Tab.Er.12h) 1 tab PO BID PRN PRN Reason: cough, congestion Last Admin: 04/13/22 09:11 Dose: 1 tab Hydroxyzine HCl (Hydroxyzine Hcl 25 Mg Tablet) 25 mg PO Q6H PRN PRN Reason: Anxiety Last Admin: 05/08/22 12:01 Dose: 25 mg Lactulose (Lactulose 20 Gm/30 Ml Solution) 10 gm PO DAILY PRN PRN Reason: Constipation Last Admin: 05/01/22 10:00 Dose: 10 gm [place] Carbonate ([place] Carbonate Er 300 Mg Tablet.Er) 600 mg PO BID [facility] Last Admin: 05/08/22 08:18 Dose: 600 mg Loperamide HCl (Loperamide Hcl 2 Mg Capsule) 4 mg PO Q4H PRN PRN Reason: Diarrhea Last Admin: 04/06/22 16:14 Dose: 4 mg Lurasidone HCl (Lurasidone Hcl 40 Mg Tablet) 40 mg PO 1900 [facility] Magnesium Hydroxide (Milk Of Magnesia 30 Ml Oral.Susp) 30 ml PO DAILY PRN PRN Reason: Constipation Last Admin: 03/25/22 11:00 Dose: 30 ml Melatonin (Melatonin 3 Mg Tablet) 12 mg PO BEDTIME [facility] Last Admin: 05/07/22 21:41 Dose: 12 mg Multi-Ingred Medicated Throat [place] (Throat [place], Medicated 177 Ml Bottle) 1 spray MUCOUS MEM Q2H PRN PRN Reason: Sore Throat Last Admin: 04/08/22 08:25 Dose: 1 spray Nicotine (Nicotine 14 Mg Patch.Td24) 14 mg TRANSDERMA DAILY PRN PRN Reason: nicotine craving Nicotine Polacrilex (Nicotine Polacrilex 2 Mg Gum) 2 mg BUCCAL Q2H PRN PRN Reason: nicotine withdrawal Last Admin: 03/29/22 09:32 Dose: 2 mg Patient Own Medication ( Desvenlafaxine 100 Mg Er Tablet) 1 tab PO DAILY [facility] Last Admin: 05/08/22 08:17 Dose: 1 tab Pt Own (Super B (Complex)) 1 tab PO DAILY [facility] Last Admin: 05/08/22 08:17 Dose: 1 tab Polyethylene Glycol (Polyethylene Glycol 3350 17 Gm Powd.Pack) 17 gm PO DAILY PRN PRN Reason: constipation Last Admin: 05/08/22 12:01 Dose: 17 gm Prazosin HCl 10 mg/ Prazosin (HCl 4 mg) 14 mg PO BEDTIME [facility] Last Admin: 05/07/22 21:40 Dose: 14 mg Saliva Substitute (Dry Mouth [place] 60 Ml [place]) 1 spray MUCOUS MEM Q2H PRN PRN Reason: Dry Mouth Trazodone HCl (Trazodone Hcl 100 Mg Tablet) 300 mg PO BEDTIME [facility] Last Admin: 05/07/22 21:41 Dose: 300 mg Vitamin D (Cholecalciferol (Vitamin D3) 25 Mcg Tablet) 50 mcg PO DAILY [facility] Last Admin: 05/08/22 08:18 Dose: 50 mcg Allergies Allergies Allergy/AdvReac Type Severity Reaction Status Date / Time Sulfa (Sulfonamide Allergy Unknown Hives Verified 05/06/22 09:25 Antibiotics) [SULFA (SULFONAMIDE ANTIBIOTICS)] sulfamethoxazole Allergy Unknown Hives Verified 05/06/22 09:25 [From BACTRIM] trimethoprim [From BACTRIM] Allergy Unknown Hives Verified 05/06/22 09:25 oseltamivir [From Tamiflu] AdvReac Sensation Verified 09/29/21 11:20 of bugs crawling on skin. Assessment & Plan Assessment & Plan (1) PTSD (post-traumatic stress disorder): Status: Acute Code(s): F43.10 - Post-traumatic stress disorder, unspecified (2) MDD (major depressive disorder), recurrent severe, without psychosis: Status: Acute Code(s): F33.2 - Major depressive disorder, recurrent severe without psychotic features (3) Suicidal ideation: Status: Acute Code(s): R45.851 - Suicidal ideations Plan 36 yo non binary, prefers they/them pronouns with SI. 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 Several serious precipitants-holidays, anniversary of the loss of a child they planned to co-parent and therapist moved from the area at the end of Feb 2022 however pt will be continuing via [employer]. Plan: Message left for Nathen Mesa. Pt wanting to change Pristiq, possibly re-start Olanzapine. We would like his input if possible. Pristiq ordered from [employer] as it is not on formulary Collateral contact as needed Assist pt to re-establish safety. 03/24/22: Continue current plan. 03/25/22: Olanzapine prn 03/26/22: Lactulose for constipation Safety discussion with pt. Increase in anxiety after her ER experience. Working with team to manage her impulsivity. 03/27: Continue current regimen and plans with increase of trazodone to 300 mg 03/28: Continue current plans and regimen. 03/29: Continue current regimen and plans. A 3 day notice has been placed 03/30/22: On 03/31, Increase Adderall to 30 mg XR q a.m. 04/01/22: Increase Melatonin to 11 mg HS. 04/02/22: Continue current regime Mucinex DM prn 04/03/22: Azithromycin 500 mg today, 250 mg x 4 days thereafter 04/04/22: Continue current regime 04/05/22: IModium prn for diarrhea Monitor for increasing risk of self harm 04/06/22: Resolving physical sx of COVID Increasing emotional sx, feeling tired, worn, drained. 04/07/22: Discontinue Ibuprofen BMP, Li, TSH 04/08/22 Olanzapine 5 mg prn to alternate with 10 mg for SIBS, SI, impulsivity 04/08 continue tx. 04/09 continue tx. 04/10 continue tx. 04/11 continue tx. -monitor for sinus discomfort -check lithium level tomorrow morning -remain on one-to-one 04/12 pt would like to keep lithium level at 0.7, currently at 1.0, will decrease morning dose to 450mg po daily and keep 600mg po qhs. continue one to one. 04/13 continue tx. 04/14 continue tx, re check lithium level next . 04/15 ocontinue tx. 04/16 add benadryl 50mg po qhs one time but if helpful may want to schedule. 04/17 continue current treatment regimen with Benadryl q.h.s. ?Discussed case with nursing; met with patient; reviewed vitals and mildly tachycardic but otherwise WNL 04/18 Discussed case with nursing; met with patient; reviewed vitals and mildly hypertensive. Remain on one-to-one as patient reports active SI 04/21/22- Continue current plan Possible family meeting 04/23. 04/22/22- Family meeting 04/28 1pm Perphenazine 4 mg bid prn dissociative sx, anxiety to assist with grounding 04/24/22- Continue current regime 04/26/22-Continue current plan. Preparing for family meeting 04/28. Discontinue Perphenazine prn Latuda 20 mg hs. 04/27/22: Continue current plan. Preparing for family meeting 04/28. Encouraged Sandi to make a brief outline to refer to in case of distraction/anxiety during the meeting. 04/29/22: Discontinue Olanzapine Discontinue Latuda Chlorpromazaine 100 mg HS and daily prn 04/30/22: Increase Chlorpromazine to 200 mg HS and daily prn. 05/01: continue tx pln. 05/02: Continue current plan. 05/03/22: Decrease chlorpromazine to 150 mg HS and daily prn Will trial pt off one to one on 02-08 shift beginning on Tuesday evening. 05/06/22: Decrease one to one on 05/07/22 from 10am-3pm. 05/07/22: Decrease CPZ to 125 mg HS and prn On 05/08 increase Latuda to 40 mg 1900 05/08/2022: Will lowered chlorpromazine p.r.n. dose from 125 mg to 100 mg Reason for contiued inpatient stay Substantial Risk for: harm to self Time Spent With Patient Time: Total time managing care of this patient today ____ minutes.
[2022-05-08 20:55] VITALS: BP 122/78; PULSE 93; TEMP 36.4
[2022-05-08] MEDS: chlorproMAZINE HCl 25 MG TABLET 125 MG PO (21:16)
[2022-05-08] MEDS: PRAZOSIN HCL 14 MG PO (21:17)
[2022-05-08] MEDS: traZODone HCL 100 MG TABLET 300 MG PO (21:27)
[2022-05-08] MEDS: diphenhydrAMINE HCL 25 MG CAPSULE 50 MG PO (21:28)
[2022-05-08] MEDS: Lurasidone HCl 40 MG TABLET PO (21:30)
[2022-05-08] MEDS: Melatonin 3 MG TABLET 12 MG PO (21:30)
[2022-05-09] MEDS: Docusate Sodium 100 MG CAPSULE PO ×2 (09:07→21:20)
[2022-05-09] MEDS: Cholecalciferol (Vitamin D3) 25 MCG TABLET 50 MCG PO (09:07)
[2022-05-09] MEDS: Dextroamphetamine/Amphetamine XR 10 MG CAP.ER.24H 30 MG PO (09:07)
[2022-05-09] MEDS: ALPRAZolam 0.5 MG TABLET 1 MG PO ×3 (09:07→21:18)
[2022-05-09] MEDS: Lithium Carbonate ER 300 MG TABLET.ER 600 MG PO ×2 (09:07→21:17)
[2022-05-09 09:13] VITALS: BP 116/69; PULSE 99; RESP 16; TEMP 36.3; O2SAT 98
--- NOTE | 2022-05-09 13:14 | P.PNPSI_ITS ---
Subjective Subjective Date of Service: 05/09/22 Reason For Visit: Depression SI PTSD Interim History: Noted difficult interactions with peer around TV remote. Otherwise reports having some dips in mood since yesterday. Does feel that Thorazine 100 mg is very helpful without sedation. Is concerned around Geodon dosing knowing that current dose is low. Hopeful that geodon dosing will be titrated and be helpful. Otherwise reports feeling supported by staff. Sleep fair. Denies active SI. Does have chronic hopelessness and thoughts of . No psychosis. Medication Compliance: Yes Side effects from medications: No Attending Groups: Yes Review of Systems Acute medical concerns: No Review of Systems Review of Systems Yes all other systems are reviewed and are negative Mental Status Exam Mental Status Exam Narrative: Pleasant. Engaged. Organized. Fairly presented. Reports some depression and anxiety. Affect reactive with some anxiety. Denies current SI or HI. No agitation psychosis. Insight and judgment fair Diagnostics Vital Signs (24Hr): Vital Signs - 24 hr 05/08/22 20:55 05/09/22 09:13 Temperature 97.6 F 97.3 F Pulse Rate 93 99 Respiratory Rate 16 Blood Pressure 122/78 116/69 Pulse Oximetry 98 Oxygen Delivery Method Room Air BMI result Body Mass Index 40.3 Labs 05/05/22 08:29 05/05/22 08:29 Medications Medications Current Medications Acetaminophen (Acetaminophen 325 Mg Tablet) 650 mg PO Q6H PRN PRN Reason: Headache/Pain Mild Scale (1-3) Last Admin: 05/08/22 06:52 Dose: 650 mg Al Hydroxide/Mg Hydroxide (Magnesium Hydrox/Alum Hydrox 30 Ml Oral.Susp) 30 ml PO Q6H PRN PRN Reason: Heartburn/Nausea Last Admin: 04/25/22 10:25 Dose: 30 ml Amphetamine/Dextroamphetamine (Dextroamphetamine/Amphetamine Xr 10 Mg Cap.Er.24h) 30 mg PO DAILY [facility] Last Admin: 05/09/22 09:07 Dose: 30 mg Amphetamine/Dextroamphetamine (Amphetamine Mixed Salts 10 Mg Tablet) 10 mg PO 1400 [facility] Last Admin: 05/08/22 14:44 Dose: Not Given Benzocaine (Throat Lozenge, Medicated Lozenge) 1 lozenge MUCOUS MEM Q2H PRN PRN Reason: Sore Throat Last Admin: 04/03/22 10:20 Dose: 1 lozenge Bisacodyl (Bisacodyl 5 Mg Tablet.Dr) 10 mg PO DAILY PRN PRN Reason: Constipation Last Admin: 05/08/22 12:01 Dose: 10 mg Chlorpromazine HCl (Chlorpromazine Hcl 25 Mg Tablet) 125 mg PO BEDTIME [facility] Last Admin: 05/08/22 21:16 Dose: 125 mg Chlorpromazine HCl (Chlorpromazine Hcl 100 Mg Tablet) 100 mg PO DAILY PRN PRN Reason: intrusive thoughts Last Admin: 05/08/22 14:41 Dose: 100 mg Diphenhydramine HCl (Diphenhydramine Hcl 25 Mg Capsule) 50 mg PO BEDTIME PRN PRN Reason: Insomnia Last Admin: 05/08/22 21:28 Dose: 50 mg Docusate Sodium (Docusate Sodium 100 Mg Capsule) 100 mg PO BID [facility] Last Admin: 05/09/22 09:07 Dose: 100 mg Fluticasone Propionate (Fluticasone Propionate Nasal 16 Gm [place]) 1 spray NOSTRIL-B DAILY [facility] Last Admin: 05/09/22 09:10 Dose: Not Given Guaifenesin/Dextromethorphan (Guaifenesin Dm 600/30 1 Tab Tab.Er.12h) 1 tab PO BID PRN PRN Reason: cough, congestion Last Admin: 04/13/22 09:11 Dose: 1 tab Hydroxyzine HCl (Hydroxyzine Hcl 25 Mg Tablet) 25 mg PO Q6H PRN PRN Reason: Anxiety Last Admin: 05/08/22 21:28 Dose: 25 mg Lactulose (Lactulose 20 Gm/30 Ml Solution) 10 gm PO DAILY PRN PRN Reason: Constipation Last Admin: 05/01/22 10:00 Dose: 10 gm [place] Carbonate ([place] Carbonate Er 300 Mg Tablet.Er) 600 mg PO BID [facility] Last Admin: 05/09/22 09:07 Dose: 600 mg Loperamide HCl (Loperamide Hcl 2 Mg Capsule) 4 mg PO Q4H PRN PRN Reason: Diarrhea Last Admin: 04/06/22 16:14 Dose: 4 mg Lurasidone HCl (Lurasidone Hcl 40 Mg Tablet) 40 mg PO 1900 [facility] Last Admin: 05/08/22 21:30 Dose: 40 mg Magnesium Hydroxide (Milk Of Magnesia 30 Ml Oral.Susp) 30 ml PO DAILY PRN PRN Reason: Constipation Last Admin: 03/25/22 11:00 Dose: 30 ml Melatonin (Melatonin 3 Mg Tablet) 12 mg PO BEDTIME [facility] Last Admin: 05/08/22 21:30 Dose: 12 mg Multi-Ingred Medicated Throat [place] (Throat [place], Medicated 177 Ml Bottle) 1 spray MUCOUS MEM Q2H PRN PRN Reason: Sore Throat Last Admin: 04/08/22 08:25 Dose: 1 spray Nicotine (Nicotine 14 Mg Patch.Td24) 14 mg TRANSDERMA DAILY PRN PRN Reason: nicotine craving Nicotine Polacrilex (Nicotine Polacrilex 2 Mg Gum) 2 mg BUCCAL Q2H PRN PRN Reason: nicotine withdrawal Last Admin: 03/29/22 09:32 Dose: 2 mg Patient Own Medication ( Desvenlafaxine 100 Mg Er Tablet) 1 tab PO DAILY [facility] Last Admin: 05/09/22 09:06 Dose: 1 tab Pt Own (Super B (Complex)) 1 tab PO DAILY [facility] Last Admin: 05/09/22 09:06 Dose: 1 tab Polyethylene Glycol (Polyethylene Glycol 3350 17 Gm Powd.Pack) 17 gm PO DAILY PRN PRN Reason: constipation Last Admin: 05/08/22 12:01 Dose: 17 gm Prazosin HCl 10 mg/ Prazosin (HCl 4 mg) 14 mg PO BEDTIME [facility] Last Admin: 05/08/22 21:17 Dose: 14 mg Saliva Substitute (Dry Mouth [place] 60 Ml [place]) 1 spray MUCOUS MEM Q2H PRN PRN Reason: Dry Mouth Trazodone HCl (Trazodone Hcl 100 Mg Tablet) 300 mg PO BEDTIME [facility] Last Admin: 05/08/22 21:27 Dose: 300 mg Vitamin D (Cholecalciferol (Vitamin D3) 25 Mcg Tablet) 50 mcg PO DAILY [facility] Last Admin: 05/09/22 09:07 Dose: 50 mcg Allergies Allergies Allergy/AdvReac Type Severity Reaction Status Date / Time Sulfa (Sulfonamide Allergy Unknown Hives Verified 05/06/22 09:25 Antibiotics) [SULFA (SULFONAMIDE ANTIBIOTICS)] sulfamethoxazole Allergy Unknown Hives Verified 05/06/22 09:25 [From BACTRIM] trimethoprim [From BACTRIM] Allergy Unknown Hives Verified 05/06/22 09:25 oseltamivir [From Tamiflu] AdvReac Sensation Verified 09/29/21 11:20 of bugs crawling on skin. Assessment & Plan Assessment & Plan (1) PTSD (post-traumatic stress disorder): Status: Acute Code(s): F43.10 - Post-traumatic stress disorder, unspecified (2) MDD (major depressive disorder), recurrent severe, without psychosis: Status: Acute Code(s): F33.2 - Major depressive disorder, recurrent severe without psychotic features (3) Suicidal ideation: Status: Acute Code(s): R45.851 - Suicidal ideations Plan 36 yo non binary, prefers they/them pronouns with SI. 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 Several serious precipitants-holidays, anniversary of the loss of a child they planned to co-parent and therapist moved from the area at the end of Feb 2022 however pt will be continuing via telehelath. Plan: Message left for Nathen Mesa. Pt wanting to change Pristiq, possibly re-start Olanzapine. We would like his input if possible. Pristiq ordered from [facility] as it is not on formulary Collateral contact as needed Assist pt to re-establish safety. 03/24/22: Continue current plan. 03/25/22: Olanzapine prn 03/26/22: Lactulose for constipation Safety discussion with pt. Increase in anxiety after her ER experience. Working with team to manage her impulsivity. 03/27: Continue current regimen and plans with increase of trazodone to 300 mg 03/28: Continue current plans and regimen. 03/29: Continue current regimen and plans. A 3 day notice has been placed 03/30/22: On 03/31, Increase Adderall to 30 mg XR q a.m. 04/01/22: Increase Melatonin to 11 mg HS. 04/02/22: Continue current regime Mucinex DM prn 04/03/22: Azithromycin 500 mg today, 250 mg x 4 days thereafter 04/04/22: Continue current regime 04/05/22: IModium prn for diarrhea Monitor for increasing risk of self harm 04/06/22: Resolving physical sx of COVID Increasing emotional sx, feeling tired, worn, drained. 04/07/22: Discontinue Ibuprofen BMP, Li, TSH 04/08/22 Olanzapine 5 mg prn to alternate with 10 mg for SIBS, SI, impulsivity 04/08 continue tx. 04/09 continue tx. 04/10 continue tx. 04/11 continue tx. -monitor for sinus discomfort -check lithium level tomorrow morning -remain on one-to-one 04/12 pt would like to keep lithium level at 0.7, currently at 1.0, will decrease morning dose to 450mg po daily and keep 600mg po qhs. continue one to one. 04/13 continue tx. 04/14 continue tx, re check lithium level next . 04/15 ocontinue tx. 04/16 add benadryl 50mg po qhs one time but if helpful may want to schedule. 04/17 continue current treatment regimen with Benadryl q.h.s. ?Discussed case with nursing; met with patient; reviewed vitals and mildly tachycardic but otherwise WNL 04/18 Discussed case with nursing; met with patient; reviewed vitals and mildly hypertensive. Remain on one-to-one as patient reports active SI 04/21/22- Continue current plan Possible family meeting 04/23. 04/22/22- Family meeting 04/28 1pm Perphenazine 4 mg bid prn dissociative sx, anxiety to assist with grounding 04/24/22- Continue current regime 04/26/22-Continue current plan. Preparing for family meeting 04/28. Discontinue Perphenazine prn Latuda 20 mg hs. 04/27/22: Continue current plan. Preparing for family meeting 04/28. Encouraged Sandi to make a brief outline to refer to in case of distraction/anxiety during the meeting. 04/29/22: Discontinue Olanzapine Discontinue Latuda Chlorpromazaine 100 mg HS and daily prn 04/30/22: Increase Chlorpromazine to 200 mg HS and daily prn. 05/01: continue tx pln. 05/02: Continue current plan. 05/03/22: Decrease chlorpromazine to 150 mg HS and daily prn Will trial pt off one to one on 02-08 shift beginning on Tuesday evening. 05/06/22: Decrease one to one on 05/07/22 from 10am-3pm. 05/07/22: Decrease CPZ to 125 mg HS and prn On 05/08 increase Latuda to 40 mg 1900 05/08/2022: Will lowered chlorpromazine p.r.n. dose from 125 mg to 100 mg 05/09/2022: No changes to current plan Reason for contiued inpatient stay Substantial Risk for: harm to self Time Spent With Patient Time: Total time managing care of this patient today ____ minutes.
[2022-05-09] MEDS: Amphetamine Mixed Salts 10 MG TABLET PO (13:44)
[2022-05-09] MEDS: chlorproMAZINE HCl 100 MG TABLET PO (15:03)
[2022-05-09] MEDS: Lurasidone HCl 40 MG TABLET PO (19:29)
[2022-05-09 21:15] VITALS: BP 132/80; PULSE 97; TEMP 36.6
[2022-05-09] MEDS: chlorproMAZINE HCl 25 MG TABLET 125 MG PO (21:19)
[2022-05-09] MEDS: traZODone HCL 100 MG TABLET 300 MG PO (21:21)
[2022-05-09] MEDS: PRAZOSIN HCL 14 MG PO (21:22)
[2022-05-09] MEDS: diphenhydrAMINE HCL 25 MG CAPSULE 50 MG PO (21:22)
[2022-05-09] MEDS: Melatonin 3 MG TABLET 12 MG PO (21:25)
[2022-05-10 08:10] VITALS: BP 122/65; PULSE 95; RESP 16; TEMP 36.2; O2SAT 96
[2022-05-10] MEDS: Docusate Sodium 100 MG CAPSULE PO (09:23)
[2022-05-10] MEDS: Cholecalciferol (Vitamin D3) 25 MCG TABLET 50 MCG PO (09:24)
[2022-05-10] MEDS: Lithium Carbonate ER 300 MG TABLET.ER 600 MG PO ×2 (09:24→21:50)
[2022-05-10] MEDS: ALPRAZolam 0.5 MG TABLET 1 MG PO ×3 (09:26→21:50)
[2022-05-10] MEDS: Throat Spray, Medicated 177 ML BOTTLE 1 SPRAY MUCOUS MEM (09:28)
[2022-05-10] MEDS: Fluticasone Propionate Nasal 16 GM SPRAY 1 SPRAY NOSTRIL-B (09:31)
[2022-05-10] MEDS: Dextroamphetamine/Amphetamine XR 10 MG CAP.ER.24H 30 MG PO (10:40)
[2022-05-10] MEDS: Amphetamine Mixed Salts 10 MG TABLET PO (15:31)
[2022-05-10 18:00] VITALS: BP 128/73; PULSE 103; TEMP 36.4; O2SAT 98
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
[2022-05-10] MEDS: Lurasidone HCl 20 MG TABLET 60 MG PO (20:24)
[2022-05-10] MEDS: PRAZOSIN HCL 14 MG PO (21:49)
[2022-05-10] MEDS: chlorproMAZINE HCl 25 MG TABLET 150 MG PO (21:49)
[2022-05-10] MEDS: traZODone HCL 100 MG TABLET 300 MG PO (21:50)
[2022-05-10] MEDS: Melatonin 3 MG TABLET 12 MG PO (21:52)
[2022-05-11 09:15] VITALS: BP 121/64; PULSE 90; RESP 16; TEMP 36.3; O2SAT 96
[2022-05-11] MEDS: Lithium Carbonate ER 300 MG TABLET.ER 600 MG PO ×2 (09:15→20:29)
[2022-05-11] MEDS: Dextroamphetamine/Amphetamine XR 10 MG CAP.ER.24H 30 MG PO (09:15)
[2022-05-11] MEDS: ALPRAZolam 0.5 MG TABLET 1 MG PO ×3 (09:16→20:29)
[2022-05-11] MEDS: Cholecalciferol (Vitamin D3) 25 MCG TABLET 50 MCG PO (09:18)
[2022-05-11] MEDS: Fluticasone Propionate Nasal 16 GM SPRAY 1 SPRAY NOSTRIL-B (10:08)
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
[2022-05-11] MEDS: Amphetamine Mixed Salts 10 MG TABLET PO (14:27)
[2022-05-11] MEDS: Lurasidone HCl 20 MG TABLET 60 MG PO (18:26)
[2022-05-11] MEDS: chlorproMAZINE HCl 25 MG TABLET 150 MG PO (20:28)
[2022-05-11] MEDS: PRAZOSIN HCL 14 MG PO (20:29)
[2022-05-11] MEDS: Melatonin 3 MG TABLET 12 MG PO (20:29)
[2022-05-11] MEDS: traZODone HCL 100 MG TABLET 300 MG PO (20:30)
[2022-05-11 20:48] VITALS: BP 158/80; PULSE 91; TEMP 36.9; O2SAT 98
[2022-05-12] MEDS: Fluticasone Propionate Nasal 16 GM SPRAY 1 SPRAY NOSTRIL-B (08:54)
[2022-05-12] MEDS: Dextroamphetamine/Amphetamine XR 10 MG CAP.ER.24H 30 MG PO (08:55)
[2022-05-12] MEDS: Lithium Carbonate ER 300 MG TABLET.ER 600 MG PO ×2 (08:55→21:00)
[2022-05-12] MEDS: Cholecalciferol (Vitamin D3) 25 MCG TABLET 50 MCG PO (08:55)
[2022-05-12] MEDS: ALPRAZolam 0.5 MG TABLET 1 MG PO ×3 (08:55→20:59)
[2022-05-12 08:58] VITALS: BP 128/75; PULSE 102; RESP 16; TEMP 36.6; O2SAT 97
[2022-05-12] MEDS: chlorproMAZINE HCl 100 MG TABLET PO (13:47)
--- NOTE | 2022-05-12 18:14 | P.PNPSI_ITS ---
Subjective Subjective Date of Service: 05/12/22 Reason For Visit: Depression SI PTSD Subjective Notes: Conditional Voluntary Healthcare Proxy: No Guardianship: No Medical Problems Affecting Mental Status: No Interim History: Discussed an episode of anger last night surrounding potential room mate and hearing different messages from team-Reports she punched a wall, hit her head, threw a bottle of seltzer, never having acted like this before she reports. Describes feeling great shame. Tore a sheet so she could hang herself-gave tw the strip she had saved in her pillow. Pt believes this may be a side effect of Latuda as this is out of character for her. We will discontinue. Adjusted Chlo rpromazine to 100 mg a.m. 100 mg daily prn and 150 mg hs. One to one re-instated for a brief period while pt has a chance to process this new feeling-not familiar with expressing anger other than self-destructive acts-feeling shameful that she threw the seltzer, punched the wall and worried about what others think of her now. Offered education, reassurance. CAT Head after hitting the wall is negative. Medication Compliance: Yes Side effects from medications: Yes (?agitation from Latuda) Attending Groups: Yes Review of Systems Acute medical concerns: No Medical Review of Systems: unchanged Mental Status Exam Mental Status Exam Narrative: NAD. Normally ambulation. Motor activity calm. Patient Appearance: Appropriate Patient Orientation: Person, Place, Time and Situation Level of Consciousness: Alert Patient Behavior: Appropriate, Talkative, Cooperative, Good Eye Contact and Crying Mood Description: Constricted, Depressed and Angry Affect Description: Flat Patient Cognition Impaired: No Ability to Follow Directions: Good Speech Pattern: Spontaneous Speech Memory Description: Intact Perceptual Disturbances: Depersonalization Thought Content: positive for Circumstantial, positive for Perseveration, positive for Preoccupation and positive for Suicidal Ideation Depressive Symptoms: Increased Irritability, Crying Spells, Feelings of Worthlessness, Hopelessness, Isolating-Friends/Family, Feelings of Guilt, Unhappiness, Thoughts of /Suicide, Low Self Esteem and Difficulty Concentrating Judgement: Good Diagnostics Vital Signs (24Hr): Vital Signs - 24 hr 05/11/22 20:48 05/12/22 08:58 Temperature 98.5 F 97.8 F Pulse Rate 91 102 H Respiratory Rate 16 Blood Pressure 158/80 H 128/75 Pulse Oximetry 98 97 Oxygen Delivery Method Room Air BMI result Body Mass Index 40.3 Labs 05/05/22 08:29 05/05/22 08:29 Imaging Radiology Impressions: ITS Impressions Head CT 05/12/22 13:34 IMPRESSION: 1. No acute intracranial process seen. 2. Moderate-sized polyp or retention cyst right maxillary sinus. 3. There are multiple small subcutaneous lesions in the scalp, ? sebaceous cyst versus Warts. These have slightly increased in size since previous CT 03/17/2021 Medications Medications Current Medications Acetaminophen (Acetaminophen 325 Mg Tablet) 650 mg PO Q6H PRN PRN Reason: Headache/Pain Mild Scale (1-3) Last Admin: 05/08/22 06:52 Dose: 650 mg Al Hydroxide/Mg Hydroxide (Magnesium Hydrox/Alum Hydrox 30 Ml Oral.Susp) 30 ml PO Q6H PRN PRN Reason: Heartburn/Nausea Last Admin: 04/25/22 10:25 Dose: 30 ml Alprazolam (Alprazolam 0.5 Mg Tablet) 1 mg PO QID PRN PRN Reason: Anxiety Last Admin: 05/12/22 13:47 Dose: 1 mg Amphetamine/Dextroamphetamine (Amphetamine Mixed Salts 10 Mg Tablet) 10 mg PO 1400 LACEY Last Admin: 05/12/22 13:52 Dose: Not Given Amphetamine/Dextroamphetamine (Dextroamphetamine/Amphetamine Xr 10 Mg C ap.Er.24h) 30 mg PO DAILY [facility] Last Admin: 05/12/22 08:55 Dose: 30 mg Benzocaine (Throat Lozenge, Medicated Lozenge) 1 lozenge MUCOUS MEM Q2H PRN PRN Reason: Sore Throat Last Admin: 04/03/22 10:20 Dose: 1 lozenge Bisacodyl (Bisacodyl 5 Mg Tablet.Dr) 10 mg PO DAILY PRN PRN Reason: Constipation Last Admin: 05/08/22 12:01 Dose: 10 mg Chlorpromazine HCl (Chlorpromazine Hcl 100 Mg Tablet) 100 mg PO DAILY PRN PRN Reason: intrusive thoughts Last Admin: 05/12/22 13:47 Dose: 100 mg Chlorpromazine HCl (Chlorpromazine Hcl 25 Mg Tablet) 150 mg PO BEDTIME [facility] Last Admin: 05/11/22 20:28 Dose: 150 mg Chlorpromazine HCl (Chlorpromazine Hcl 100 Mg Tablet) 100 mg PO DAILY [facility] Diphenhydramine HCl (Diphenhydramine Hcl 25 Mg Capsule) 50 mg PO BEDTIME PRN PRN Reason: Insomnia Last Admin: 05/09/22 21:22 Dose: 50 mg Fluticasone Propionate (Fluticasone Propionate Nasal 16 Gm [place]) 1 spray NOSTRIL-B DAILY [facility] Last Admin: 05/12/22 08:54 Dose: 1 spray Guaifenesin/Dextromethorphan (Guaifenesin Dm 600/30 1 Tab Tab.Er.12h) 1 tab PO BID PRN PRN Reason: cough, congestion Last Admin: 04/13/22 09:11 Dose: 1 tab Hydroxyzine HCl (Hydroxyzine Hcl 25 Mg Tablet) 25 mg PO Q6H PRN PRN Reason: Anxiety Last Admin: 05/08/22 21:28 Dose: 25 mg Lactulose (Lactulose 20 Gm/30 Ml Solution) 10 gm PO DAILY PRN PRN Reason: Constipation Last Admin: 05/01/22 10:00 Dose: 10 gm [place] Carbonate ([place] Carbonate Er 300 Mg Tablet.Er) 600 mg PO BID [facility] Last Admin: 05/12/22 08:55 Dose: 600 mg Loperamide HCl (Loperamide Hcl 2 Mg Capsule) 4 mg PO Q4H PRN PRN Reason: Diarrhea Last Admin: 04/06/22 16:14 Dose: 4 mg Magnesium Hydroxide (Milk Of Magnesia 30 Ml Oral.Susp) 30 ml PO DAILY PRN PRN Reason: Constipation Last Admin: 03/25/22 11:00 Dose: 30 ml Melatonin (Melatonin 3 Mg Tablet) 12 mg PO BEDTIME [facility] Last Admin: 05/11/22 20:29 Dose: 12 mg Multi-Ingred Medicated Throat [place] (Throat [place], Medicated 177 Ml Bottle) 1 spray MUCOUS MEM Q2H PRN PRN Reason: Sore Throat Last Admin: 05/10/22 09:28 Dose: 1 spray Nicotine (Nicotine 14 Mg Patch.Td24) 14 mg TRANSDERMA DAILY PRN PRN Reason: nicotine craving Nicotine Polacrilex (Nicotine Polacrilex 2 Mg Gum) 2 mg BUCCAL Q2H PRN PRN Reason: nicotine withdrawal Last Admin: 03/29/22 09:32 Dose: 2 mg Patient Own Medication ( Desvenlafaxine 100 Mg Er Tablet) 1 tab PO DAILY [facility] Last Admin: 05/12/22 08:54 Dose: 1 tab Pt Own (Super B (Complex)) 1 tab PO DAILY [facility] Last Admin: 05/12/22 08:55 Dose: 1 tab Polyethylene Glycol (Polyethylene Glycol 3350 17 Gm Powd.Pack) 17 gm PO DAILY PRN PRN Reason: constipation Last Admin: 05/08/22 12:01 Dose: 17 gm Prazosin HCl 10 mg/ Prazosin (HCl 4 mg) 14 mg PO BEDTIME [facility] Last Admin: 05/11/22 20:29 Dose: 14 mg Saliva Substitute (Dry Mouth [place] 60 Ml [place]) 1 spray MUCOUS MEM Q2H PRN PRN Reason: Dry Mouth Trazodone HCl (Trazodone Hcl 100 Mg Tablet) 300 mg PO BEDTIME [facility] Last Admin: 05/11/22 20:30 Dose: 300 mg Vitamin D (Cholecalciferol (Vitamin D3) 25 Mcg Tablet) 50 mcg PO DAILY [facility] Last Admin: 05/12/22 08:55 Dose: 50 mcg Allergies Allergies Allergy/AdvReac Type Severity Reaction Status Date / Time Sulfa (Sulfonamide Allergy Unknown Hives Verified 05/06/22 09:25 Antibiotics) [SULFA (SULFONAMIDE ANTIBIOTICS)] sulfamethoxazole Allergy Unknown Hives Verified 05/06/22 09:25 [From BACTRIM] trimethoprim [From BACTRIM] Allergy Unknown Hives Verified 05/06/22 09:25 lurasidone [From Latuda] AdvReac Intermediate anger, rage Verified 05/12/22 12:20 oseltamivir [From Tamiflu] AdvReac Sensation Verified 09/29/21 11:20 of bugs crawling on skin. Assessment & Plan Assessment & Plan (1) PTSD (post-traumatic stress disorder): Status: Acute Code(s): F43.10 - Post-traumatic stress disorder, unspecified (2) MDD (major depressive disorder), recurrent severe, without psychosis: Status: Acute Code(s): F33.2 - Major depressive disorder, recurrent severe without psychotic features (3) Suicidal ideation: Status: Acute Code(s): R45.851 - Suicidal ideations Plan 36 yo non binary, prefers they/them pronouns with SI. 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 Several serious precipitants-holidays, anniversary of the loss of a child they planned to co-parent and therapist moved from the area at the end of Feb 2022 however pt will be continuing via telehelath. Plan: Message left for Nathen Mesa. Pt wanting to change Pristiq, possibly re-start Olanzapine. We would like his input if possible. Pristiq ordered from [employer] as it is not on formulary Collateral contact as needed Assist pt to re-establish safety. 03/24/22: Continue current plan. 03/25/22: Olanzapine prn 03/26/22: Lactulose for constipation Safety discussion with pt. Increase in anxiety after her ER experience. Working with team to manage her impulsivity. 03/27: Continue current regimen and plans with increase of trazodone to 300 mg 03/28: Continue current plans and regimen. 03/29: Continue current regimen and plans. A 3 day notice has been placed 03/30/22: On 03/31, Increase Adderall to 30 mg XR q a.m. 04/01/22: Increase Melatonin to 11 mg HS. 04/02/22: Continue current regime Mucinex DM prn 04/03/22: Azithromycin 500 mg today, 250 mg x 4 days thereafter 04/04/22: Continue current regime 04/05/22: IModium prn for diarrhea Monitor for increasing risk of self harm 04/06/22: Resolving physical sx of COVID Increasing emotional sx, feeling tired, worn, drained. 04/07/22: Discontinue Ibuprofen BMP, Li, TSH 04/08/22 Olanzapine 5 mg prn to alternate with 10 mg for SIBS, SI, impulsivity 04/08 continue tx. 04/09 continue tx. 04/10 continue tx. 04/11 continue tx. -monitor for sinus discomfort -check lithium level tomorrow morning -remain on one-to-one 04/12 pt would like to keep lithium level at 0.7, currently at 1.0, will decrease morning dose to 450mg po daily and keep 600mg po qhs. continue one to one. 04/13 continue tx. 04/14 continue tx, re check lithium level next . 04/15 ocontinue tx. 04/16 add benadryl 50mg po qhs one time but if helpful may want to schedule. 1/14 continue current treatment regimen with Benadryl q.h.s. ?Discussed case with nursing; met with patient; reviewed vitals and mildly tachycardic but otherwise WNL 04/18 Discussed case with nursing; met with patient; reviewed vitals and mildly hypertensive. Remain on one-to-one as patient reports active SI 04/21/22- Continue current plan Possible family meeting 04/23. 04/22/22- Family meeting 04/28 1pm Perphenazine 4 mg bid prn dissociative sx, anxiety to assist with grounding 04/24/22- Continue current regime 04/26/22-Continue current plan. Preparing for family meeting 04/28. Discontinue Perphenazine prn Latuda 20 mg hs. 04/27/22: Continue current plan. Preparing for family meeting 04/28. Encouraged Sandi to make a brief outline to refer to in case of distraction/anxiety during the meeting. 04/29/22: Discontinue Olanzapine Discontinue Latuda Chlorpromazaine 100 mg HS and daily prn 04/30/22: Increase Chlorpromazine to 200 mg HS and daily prn. 05/01: continue tx pln. 05/02: Continue current plan. 05/03/22: Decrease chlorpromazine to 150 mg HS and daily prn Will trial pt off one to one on 117 shift beginning on Tuesday evening. 05/06/22: Decrease one to one on 05/07/22 from 10am-3pm. 05/07/22: Decrease CPZ to 125 mg HS and prn On 05/08 increase Latuda to 40 mg 1900 05/08/2022: Will lowered chlorpromazine p.r.n. dose from 125 mg to 100 mg 05/09/2022: No changes to current plan 05/10/22: Increase HS CPZ to 150 mg Increase Latuda to 60 mg 1900 Discontinue 1:1 05/11/22: Continue current plan. 05/12/22: Discontinue Latuda Add Chlorpromazine 100 mg a.m. Patient educated on: medication risk/benefits and therapeutic strategies Informed Consent: understands Reason for contiued inpatient stay Substantial Risk for: harm to self and rapid decompensation Time Spent With Patient Time: Total time managing care of this patient today 40 minutes.
[2022-05-12 20:45] VITALS: BP 127/64; PULSE 99; TEMP 36.8; O2SAT 96
[2022-05-12] MEDS: PRAZOSIN HCL 14 MG PO (20:59)
[2022-05-12] MEDS: Melatonin 3 MG TABLET 12 MG PO (21:00)
[2022-05-12] MEDS: chlorproMAZINE HCl 25 MG TABLET 150 MG PO (21:00)
[2022-05-12] MEDS: traZODone HCL 100 MG TABLET 300 MG PO (21:00)
[2022-05-13] MEDS: Fluticasone Propionate Nasal 16 GM SPRAY 1 SPRAY NOSTRIL-B (08:30)
[2022-05-13] MEDS: chlorproMAZINE HCl 100 MG TABLET PO ×2 (08:30→14:20)
[2022-05-13] MEDS: Dextroamphetamine/Amphetamine XR 10 MG CAP.ER.24H 30 MG PO (08:31)
[2022-05-13] MEDS: Lithium Carbonate ER 300 MG TABLET.ER 600 MG PO ×2 (08:31→20:54)
[2022-05-13] MEDS: Cholecalciferol (Vitamin D3) 25 MCG TABLET 50 MCG PO (08:31)
[2022-05-13] MEDS: ALPRAZolam 0.5 MG TABLET 1 MG PO ×2 (08:31→16:28)
[2022-05-13 08:44] VITALS: BP 113/75; PULSE 94; RESP 16; TEMP 36.4; O2SAT 96
--- NOTE | 2022-05-13 16:20 | HO.PSYCHPN ---
Subjective Subjective Date of Service: 05/13/22 Reason For Visit: Depression SI PTSD Subjective Notes: Conditional Voluntary Healthcare Proxy: No Guardianship: No Medical Problems Affecting Mental Status: No Interim History: One to one re-instated and continues. I am scared of being awake I sleep to cope Discussed the possibility of finding a new therapist. Reviewed current OP schedule-telehealth therapy 2x week, N group 3x week; Vanesa from [facility] 1x week, [facility] 1-2 times per month, [facility] every Tuesday Discussed reaching out to PHP, crisis in the future, along with respite vs coming in pt. discussed therapist qualities-private practice, in person meetings, accepts insurance Medication Compliance: Yes Side effects from medications: Yes (sedation, currently finding this helpful-discussed increase [place] vs CPZ) Attending Groups: Yes Review of Systems Acute medical concerns: No Medical Review of Systems: unchanged Mental Status Exam Mental Status Exam Narrative: NAD. Normally ambulation. Motor activity calm. Patient Appearance: Appropriate Patient Orientation: Person, Place, Time and Situation Level of Consciousness: Alert Patient Behavior: Appropriate, Talkative, Cooperative, Good Eye Contact and Crying Mood Description: Constricted, Depressed and Angry Affect Description: Flat Patient Cognition Impaired: No Ability to Follow Directions: Good Speech Pattern: Spontaneous Speech Memory Description: Intact Perceptual Disturbances: Depersonalization Thought Content: positive for Circumstantial, positive for Perseveration, positive for Preoccupation and positive for Suicidal Ideation Depressive Symptoms: Increased Irritability, Crying Spells, Feelings of Worthlessness, Hopelessness, Isolating-Friends/Family, Feelings of Guilt, Unhappiness, Thoughts of /Suicide, Low Self Esteem and Difficulty Concentrating Judgement: Good Diagnostics Vital Signs (24Hr): Vital Signs - 24 hr 05/12/22 20:45 05/13/22 08:44 Temperature 98.3 F 97.6 F Pulse Rate 99 94 Respiratory Rate 16 Blood Pressure 127/64 113/75 Pulse Oximetry 96 96 Oxygen Delivery Method Room Air Room Air BMI result Body Mass Index 40.3 Labs 05/05/22 08:29 05/05/22 08:29 Imaging Radiology Impressions: ITS Impressions Head CT 05/12/22 13:34 IMPRESSION: 1. No acute intracranial process seen. 2. Moderate-sized polyp or retention cyst right maxillary sinus. 3. There are multiple small subcutaneous lesions in the scalp, ? sebaceous cyst versus Warts. These have slightly increased in size since previous CT 03/17/2021 Medications Medications Current Medications Acetaminophen (Acetaminophen 325 Mg Tablet) 650 mg PO Q6H PRN PRN Reason: Headache/Pain Mild Scale (1-3) Last Admin: 05/08/22 06:52 Dose: 650 mg Al Hydroxide/Mg Hydroxide (Magnesium Hydrox/Alum Hydrox 30 Ml Oral.Susp) 30 ml PO Q6H PRN PRN Reason: Heartburn/Nausea Last Admin: 04/25/22 10:25 Dose: 30 ml Alprazolam (Alprazolam 0.5 Mg Tablet) 1 mg PO QID PRN PRN Reason: Anxiety Last Admin: 05/13/22 08:31 Dose: 1 mg Amphetamine/Dextroamphetamine (Amphetamine Mixed Salts 10 Mg Tablet) 10 mg PO 1400 [facility] Last Admin: 05/13/22 14:41 Dose: Not Given Amphetamine/Dextroamphetamine (Dextroamphetamine/Amphetamine Xr 10 Mg Cap.Er.24h) 30 mg PO DAILY [facility] Last Admin: 05/13/22 08:31 Dose: 30 mg Benzocaine (Throat Lozenge, Medicated Lozenge) 1 lozenge MUCOUS MEM Q2H PRN PRN Reason: Sore Throat Last Admin: 04/03/22 10:20 Dose: 1 lozenge Bisacodyl (Bisacodyl 5 Mg Tablet.Dr) 10 mg PO DAILY PRN PRN Reason: Constipation Last Admin: 05/08/22 12:01 Dose: 10 mg Chlorpromazine HCl (Chlorpromazine Hcl 100 Mg Tablet) 100 mg PO DAILY PRN PRN Reason: intrusive thoughts Last Admin: 05/13/22 14:20 Dose: 100 mg Chlorpromazine HCl (Chlorpromazine Hcl 25 Mg Tablet) 150 mg PO BEDTIME [facility] Last Admin: 05/12/22 21:00 Dose: 150 mg Chlorpromazine HCl (Chlorpromazine Hcl 100 Mg Tablet) 100 mg PO DAILY [facility] Last Admin: 05/13/22 08:30 Dose: 100 mg Diphenhydramine HCl (Diphenhydramine Hcl 25 Mg Capsule) 50 mg PO BEDTIME PRN PRN Reason: Insomnia Last Admin: 05/09/22 21:22 Dose: 50 mg Fluticasone Propionate (Fluticasone Propionate Nasal 16 Gm [place]) 1 spray NOSTRIL-B DAILY [facility] Last Admin: 05/13/22 08:30 Dose: 1 spray Guaifenesin/Dextromethorphan (Guaifenesin Dm 600/30 1 Tab Tab.Er.12h) 1 tab PO BID PRN PRN Reason: cough, congestion Last Admin: 04/13/22 09:11 Dose: 1 tab Hydroxyzine HCl (Hydroxyzine Hcl 25 Mg Tablet) 25 mg PO Q6H PRN PRN Reason: Anxiety Last Admin: 05/08/22 21:28 Dose: 25 mg Lactulose (Lactulose 20 Gm/30 Ml Solution) 10 gm PO DAILY PRN PRN Reason: Constipation Last Admin: 05/01/22 10:00 Dose: 10 gm [place] Carbonate ([place] Carbonate Er 300 Mg Tablet.Er) 600 mg PO BID [facility] Last Admin: 05/13/22 08:31 Dose: 600 mg Loperamide HCl (Loperamide Hcl 2 Mg Capsule) 4 mg PO Q4H PRN PRN Reason: Diarrhea Last Admin: 04/06/22 16:14 Dose: 4 mg Magnesium Hydroxide (Milk Of Magnesia 30 Ml Oral.Susp) 30 ml PO DAILY PRN PRN Reason: Constipation Last Admin: 03/25/22 11:00 Dose: 30 ml Melatonin (Melatonin 3 Mg Tablet) 12 mg PO BEDTIME [facility] Last Admin: 05/12/22 21:00 Dose: 12 mg Multi-Ingred Medicated Throat [place] (Throat [place], Medicated 177 Ml Bottle) 1 spray MUCOUS MEM Q2H PRN PRN Reason: Sore Throat Last Admin: 05/10/22 09:28 Dose: 1 spray Nicotine (Nicotine 14 Mg Patch.Td24) 14 mg TRANSDERMA DAILY PRN PRN Reason: nicotine craving Nicotine Polacrilex (Nicotine Polacrilex 2 Mg Gum) 2 mg BUCCAL Q2H PRN PRN Reason: nicotine withdrawal Last Admin: 03/29/22 09:32 Dose: 2 mg Patient Own Medication ( Desvenlafaxine 100 Mg Er Tablet) 1 tab PO DAILY [facility] Last Admin: 05/13/22 08:30 Dose: 1 tab Pt Own (Super B (Complex)) 1 tab PO DAILY [facility] Last Admin: 05/13/22 08:30 Dose: 1 tab Polyethylene Glycol (Polyethylene Glycol 3350 17 Gm Powd.Pack) 17 gm PO DAILY PRN PRN Reason: constipation Last Admin: 05/08/22 12:01 Dose: 17 gm Prazosin HCl 10 mg/ Prazosin (HCl 4 mg) 14 mg PO BEDTIME [facility] Last Admin: 05/12/22 20:59 Dose: 14 mg Saliva Substitute (Dry Mouth [place] 60 Ml [place]) 1 spray MUCOUS MEM Q2H PRN PRN Reason: Dry Mouth Trazodone HCl (Trazodone Hcl 100 Mg Tablet) 300 mg PO BEDTIME [facility] Last Admin: 05/12/22 21:00 Dose: 300 mg Vitamin D (Cholecalciferol (Vitamin D3) 25 Mcg Tablet) 50 mcg PO DAILY [facility] Last Admin: 05/13/22 08:31 Dose: 50 mcg Allergies Allergies Allergy/AdvReac Type Severity Reaction Status Date / Time Sulfa (Sulfonamide Allergy Unknown Hives Verified 05/06/22 09:25 Antibiotics) [SULFA (SULFONAMIDE ANTIBIOTICS)] sulfamethoxazole Allergy Unknown Hives Verified 05/06/22 09:25 [From BACTRIM] trimethoprim [From BACTRIM] Allergy Unknown Hives Verified 05/06/22 09:25 lurasidone [From Latuda] AdvReac Intermediate anger, rage Verified 05/12/22 12:20 oseltamivir [From Tamiflu] AdvReac Sensation Verified 09/29/21 11:20 of bugs crawling on skin. Assessment & Plan Assessment & Plan (1) PTSD (post-traumatic stress disorder): Status: Acute Code(s): F43.10 - Post-traumatic stress disorder, unspecified (2) MDD (major depressive disorder), recurrent severe, without psychosis: Status: Acute Code(s): F33.2 - Major depressive disorder, recurrent severe without psychotic features (3) Suicidal ideation: Status: Acute Code(s): R45.851 - Suicidal ideations Plan 36 yo non binary, prefers they/them pronouns with SI. 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 Several serious precipitants-holidays, anniversary of the loss of a child they planned to co-parent and therapist moved from the area at the end of Feb 2022 however pt will be continuing via telehelath. Plan: Message left for Nathen Mesa. Pt wanting to change Pristiq, possibly re-start Olanzapine. We would like his input if possible. Pristiq ordered from [employer] as it is not on formulary Collateral contact as needed Assist pt to re-establish safety. 03/24/22: Continue current plan. 03/25/22: Olanzapine prn 03/26/22: Lactulose for constipation Safety discussion with pt. Increase in anxiety after her ER experience. Working with team to manage her impulsivity. 03/27: Continue current regimen and plans with increase of trazodone to 300 mg 03/28: Continue current plans and regimen. 03/29: Continue current regimen and plans. A 3 day notice has been placed 03/30/22: On 03/31, Increase Adderall to 30 mg XR q a.m. 04/01/22: Increase Melatonin to 11 mg HS. 04/02/22: Continue current regime Mucinex DM prn 04/03/22: Azithromycin 500 mg today, 250 mg x 4 days thereafter 04/04/22: Continue current regime 04/05/22: IModium prn for diarrhea Monitor for increasing risk of self harm 04/06/22: Resolving physical sx of COVID Increasing emotional sx, feeling tired, worn, drained. 04/07/22: Discontinue Ibuprofen BMP, Li, TSH 04/08/22 Olanzapine 5 mg prn to alternate with 10 mg for SIBS, SI, impulsivity 04/08 continue tx. 04/09 continue tx. 04/10 continue tx. 04/11 continue tx. -monitor for sinus discomfort -check lithium level tomorrow morning -remain on one-to-one 04/12 pt would like to keep lithium level at 0.7, currently at 1.0, will decrease morning dose to 450mg po daily and keep 600mg po qhs. continue one to one. 04/13 continue tx. 04/14 continue tx, re check lithium level next . 04/15 ocontinue tx. 04/16 add benadryl 50mg po qhs one time but if helpful may want to schedule. 04/17 continue current treatment regimen with Benadryl q.h.s. ?Discussed case with nursing; met with patient; reviewed vitals and mildly tachycardic but otherwise WNL 04/18 Discussed case with nursing; met with patient; reviewed vitals and mildly hypertensive. Remain on one-to-one as patient reports active SI 04/21/22- Continue current plan Possible family meeting 04/23. 04/22/22- Family meeting 04/28 1pm Perphenazine 4 mg bid prn dissociative sx, anxiety to assist with grounding 04/24/22- Continue current regime 04/26/22-Continue current plan. Preparing for family meeting 04/28. Discontinue Perphenazine prn Latuda 20 mg hs. 04/27/22: Continue current plan. Preparing for family meeting 04/28. Encouraged Sandi to make a brief outline to refer to in case of distraction/anxiety during the meeting. 04/29/22: Discontinue Olanzapine Discontinue Latuda Chlorpromazaine 100 mg HS and daily prn 04/30/22: Increase Chlorpromazine to 200 mg HS and daily prn. 05/01: continue tx pln. 05/02: Continue current plan. 05/03/22: Decrease chlorpromazine to 150 mg HS and daily prn Will trial pt off one to one on 11-7 shift beginning on Tuesday evening. 05/06/22: Decrease one to one on 05/07/22 from 10am-3pm. 05/07/22: Decrease CPZ to 125 mg HS and prn On 05/08 increase Latuda to 40 mg 1900 05/08/2022: Will lowered chlorpromazine p.r.n. dose from 125 mg to 100 mg 05/09/2022: No changes to current plan 05/10/22: Increase HS CPZ to 150 mg Increase Latuda to 60 mg 1900 Discontinue 1:1 05/11/22: Continue current plan. 05/12/22: Discontinue Latuda Add Chlorpromazine 100 mg a.m. 05/13/22: No changes today Patient educated on: medication risk/benefits and therapeutic strategies Informed Consent: understands and further education needed Reason for contiued inpatient stay Substantial Risk for: harm to self and rapid decompensation Time Spent With Patient Time: Total time managing care of this patient today 20 minutes.
[2022-05-13 18:00] VITALS: BP 128/78; PULSE 84; RESP 16; TEMP 36.6; O2SAT 98
[2022-05-13] MEDS: PRAZOSIN HCL 14 MG PO (20:52)
[2022-05-13] MEDS: Melatonin 3 MG TABLET 12 MG PO (20:53)
[2022-05-13] MEDS: chlorproMAZINE HCl 25 MG TABLET 150 MG PO (20:54)
[2022-05-13] MEDS: traZODone HCL 100 MG TABLET 300 MG PO (20:54)
[2022-05-14] MEDS: diphenhydrAMINE HCL 25 MG CAPSULE 50 MG PO (02:58)
[2022-05-14] MEDS: Dextroamphetamine/Amphetamine XR 10 MG CAP.ER.24H 30 MG PO (08:59)
[2022-05-14] MEDS: Fluticasone Propionate Nasal 16 GM SPRAY 1 SPRAY NOSTRIL-B (08:59)
[2022-05-14] MEDS: Lithium Carbonate ER 300 MG TABLET.ER 600 MG PO ×2 (09:00→23:01)
[2022-05-14] MEDS: ALPRAZolam 0.5 MG TABLET 1 MG PO ×2 (09:00→13:51)
[2022-05-14] MEDS: Cholecalciferol (Vitamin D3) 25 MCG TABLET 50 MCG PO (09:00)
[2022-05-14] MEDS: chlorproMAZINE HCl 100 MG TABLET PO (09:00)
[2022-05-14 10:45] VITALS: BP 127/70; PULSE 108; RESP 16; TEMP 36.7; O2SAT 96
[2022-05-14] MEDS: Amphetamine Mixed Salts 10 MG TABLET PO (13:51)
--- NOTE | 2022-05-14 15:54 | HO.PSYCHPN ---
Subjective Subjective Date of Service: 05/14/22 Reason For Visit: Depression SI PTSD Subjective Notes: Conditional Voluntary Healthcare Proxy: No Guardianship: No Medical Problems Affecting Mental Status: No Interim History: Improved they report. Awake at 2am. Benadryl prn helpful Ready to decrease CPZ to 100 mg daily prn and 150 mg HS. a.m. dose will stop. Discussed next trial-discussed that Geodon may be more useful at this time than Vraylar Asks to re-start Colace Hospitalist/surgery consult requeste for LRQ abscess and inner thigh abscess-pt experiencing pain Medication Compliance: Yes Side effects from medications: No Attending Groups: Yes Review of Systems Acute medical concerns: No Medical Review of Systems: unchanged Mental Status Exam Mental Status Exam Narrative: NAD. Normally ambulation. Motor activity calm. Patient Appearance: Appropriate Patient Orientation: Person, Place, Time and Situation Level of Consciousness: Alert Patient Behavior: Appropriate, Talkative, Cooperative, Good Eye Contact and Crying Mood Description: Constricted, Depressed and Angry Affect Description: Flat Patient Cognition Impaired: No Ability to Follow Directions: Good Speech Pattern: Spontaneous Speech Memory Description: Intact Perceptual Disturbances: Depersonalization Thought Content: positive for Circumstantial, positive for Perseveration, positive for Preoccupation and positive for Suicidal Ideation Depressive Symptoms: Increased Irritability, Crying Spells, Feelings of Worthlessness, Hopelessness, Isolating-Friends/Family, Feelings of Guilt, Unhappiness, Thoughts of /Suicide, Low Self Esteem and Difficulty Concentrating Judgement: Good Diagnostics Vital Signs (24Hr): Vital Signs - 24 hr 05/13/22 18:00 05/14/22 10:45 Temperature 97.8 F 98.1 F Pulse Rate 84 108 H Respiratory Rate 16 16 Blood Pressure 128/78 127/70 Pulse Oximetry 98 96 Oxygen Delivery Method Room Air Room Air BMI result Body Mass Index 40.3 Labs 05/05/22 08:29 05/05/22 08:29 Imaging Radiology Impressions: ITS Impressions Head CT 05/12/22 13:34 IMPRESSION: 1. No acute intracranial process seen. 2. Moderate-sized polyp or retention cyst right maxillary sinus. 3. There are multiple small subcutaneous lesions in the scalp, ? sebaceous cyst versus Warts. These have slightly increased in size since previous CT 03/17/2021 Medications Medications Current Medications Acetaminophen (Acetaminophen 325 Mg Tablet) 650 mg PO Q6H PRN PRN Reason: Headache/Pain Mild Scale (1-3) Last Admin: 05/08/22 06:52 Dose: 650 mg Al Hydroxide/Mg Hydroxide (Magnesium Hydrox/Alum Hydrox 30 Ml Oral.Susp) 30 ml PO Q6H PRN PRN Reason: Heartburn/Nausea Last Admin: 04/25/22 10:25 Dose: 30 ml Alprazolam (Alprazolam 0.5 Mg Tablet) 1 mg PO QID PRN PRN Reason: Anxiety Last Admin: 05/14/22 13:51 Dose: 1 mg Amphetamine/Dextroamphetamine (Amphetamine Mixed Salts 10 Mg Tablet) 10 mg PO 1400 [facility] Last Admin: 05/14/22 13:51 Dose: 10 mg Amphetamine/Dextroamphetamine (Dextroamphetamine/Amphetamine Xr 10 Mg Cap.Er.24h) 30 mg PO DAILY [facility] Last Admin: 05/14/22 08:59 Dose: 30 mg Benzocaine (Throat Lozenge, Medicated Lozenge) 1 lozenge MUCOUS MEM Q2H PRN PRN Reason: Sore Throat Last Admin: 04/03/22 10:20 Dose: 1 lozenge Bisacodyl (Bisacodyl 5 Mg Tablet.Dr) 10 mg PO DAILY PRN PRN Reason: Constipation Last Admin: 05/08/22 12:01 Dose: 10 mg Chlorpromazine HCl (Chlorpromazine Hcl 100 Mg Tablet) 100 mg PO DAILY PRN PRN Reason: intrusive thoughts Last Admin: 05/13/22 14:20 Dose: 100 mg Chlorpromazine HCl (Chlorpromazine Hcl 25 Mg Tablet) 150 mg PO BEDTIME [facility] Last Admin: 05/13/22 20:54 Dose: 150 mg Chlorpromazine HCl (Chlorpromazine Hcl 100 Mg Tablet) 100 mg PO DAILY [facility] Last Admin: 05/14/22 09:00 Dose: 100 mg Diphenhydramine HCl (Diphenhydramine Hcl 25 Mg Capsule) 50 mg PO BEDTIME PRN PRN Reason: Insomnia Last Admin: 05/14/22 02:58 Dose: 50 mg Fluticasone Propionate (Fluticasone Propionate Nasal 16 Gm [place]) 1 spray NOSTRIL-B DAILY [facility] Last Admin: 05/14/22 08:59 Dose: 1 spray Guaifenesin/Dextromethorphan (Guaifenesin Dm 600/30 1 Tab Tab.Er.12h) 1 tab PO BID PRN PRN Reason: cough, congestion Last Admin: 04/13/22 09:11 Dose: 1 tab Hydroxyzine HCl (Hydroxyzine Hcl 25 Mg Tablet) 25 mg PO Q6H PRN PRN Reason: Anxiety Last Admin: 05/08/22 21:28 Dose: 25 mg Lactulose (Lactulose 20 Gm/30 Ml Solution) 10 gm PO DAILY PRN PRN Reason: Constipation Last Admin: 05/01/22 10:00 Dose: 10 gm [place] Carbonate ([place] Carbonate Er 300 Mg Tablet.Er) 600 mg PO BID [facility] Last Admin: 05/14/22 09:00 Dose: 600 mg Loperamide HCl (Loperamide Hcl 2 Mg Capsule) 4 mg PO Q4H PRN PRN Reason: Diarrhea Last Admin: 04/06/22 16:14 Dose: 4 mg Magnesium Hydroxide (Milk Of Magnesia 30 Ml Oral.Susp) 30 ml PO DAILY PRN PRN Reason: Constipation Last Admin: 03/25/22 11:00 Dose: 30 ml Melatonin (Melatonin 3 Mg Tablet) 12 mg PO BEDTIME [facility] Last Admin: 05/13/22 20:53 Dose: 12 mg Multi-Ingred Medicated Throat [place] (Throat [place], Medicated 177 Ml Bottle) 1 spray MUCOUS MEM Q2H PRN PRN Reason: Sore Throat Last Admin: 05/10/22 09:28 Dose: 1 spray Nicotine (Nicotine 14 Mg Patch.Td24) 14 mg TRANSDERMA DAILY PRN PRN Reason: nicotine craving Nicotine Polacrilex (Nicotine Polacrilex 2 Mg Gum) 2 mg BUCCAL Q2H PRN PRN Reason: nicotine withdrawal Last Admin: 03/29/22 09:32 Dose: 2 mg Patient Own Medication ( Desvenlafaxine 100 Mg Er Tablet) 1 tab PO DAILY [facility] Last Admin: 05/14/22 08:59 Dose: 1 tab Pt Own (Super B (Complex)) 1 tab PO DAILY [facility] Last Admin: 05/14/22 08:59 Dose: 1 tab Polyethylene Glycol (Polyethylene Glycol 3350 17 Gm Powd.Pack) 17 gm PO DAILY PRN PRN Reason: constipation Last Admin: 05/08/22 12:01 Dose: 17 gm Prazosin HCl 10 mg/ Prazosin (HCl 4 mg) 14 mg PO BEDTIME [facility] Last Admin: 05/13/22 20:52 Dose: 14 mg Saliva Substitute (Dry Mouth [place] 60 Ml [place]) 1 spray MUCOUS MEM Q2H PRN PRN Reason: Dry Mouth Trazodone HCl (Trazodone Hcl 100 Mg Tablet) 300 mg PO BEDTIME [facility] Last Admin: 05/13/22 20:54 Dose: 300 mg Vitamin D (Cholecalciferol (Vitamin D3) 25 Mcg Tablet) 50 mcg PO DAILY [facility] Last Admin: 05/14/22 09:00 Dose: 50 mcg Allergies Allergies Allergy/AdvReac Type Severity Reaction Status Date / Time Sulfa (Sulfonamide Allergy Unknown Hives Verified 05/06/22 09:25 Antibiotics) [SULFA (SULFONAMIDE ANTIBIOTICS)] sulfamethoxazole Allergy Unknown Hives Verified 05/06/22 09:25 [From BACTRIM] trimethoprim [From BACTRIM] Allergy Unknown Hives Verified 05/06/22 09:25 lurasidone [From Latuda] AdvReac Intermediate anger, rage Verified 05/12/22 12:20 oseltamivir [From Tamiflu] AdvReac Sensation Verified 09/29/21 11:20 of bugs crawling on skin. Assessment & Plan Assessment & Plan (1) PTSD (post-traumatic stress disorder): Status: Acute Code(s): F43.10 - Post-traumatic stress disorder, unspecified (2) MDD (major depressive disorder), recurrent severe, without psychosis: Status: Acute Code(s): F33.2 - Major depressive disorder, recurrent severe without psychotic features (3) Suicidal ideation: Status: Acute Code(s): R45.851 - Suicidal ideations Plan 36 yo non binary, prefers they/them pronouns with SI. 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 Several serious precipitants-holidays, anniversary of the loss of a child they planned to co-parent and therapist moved from the area at the end of Feb 2022 however pt will be continuing via telehelath. Plan: Message left for Nathen Mesa. Pt wanting to change Pristiq, possibly re-start Olanzapine. We would like his input if possible. Pristiq ordered from [employer] as it is not on formulary Collateral contact as needed Assist pt to re-establish safety. 03/24/22: Continue current plan. 03/25/22: Olanzapine prn 03/26/22: Lactulose for constipation Safety discussion with pt. Increase in anxiety after her ER experience. Working with team to manage her impulsivity. 03/27: Continue current regimen and plans with increase of trazodone to 300 mg 03/28: Continue current plans and regimen. 03/29: Continue current regimen and plans. A 3 day notice has been placed 03/30/22: On 03/31, Increase Adderall to 30 mg XR q a.m. 04/01/22: Increase Melatonin to 11 mg HS. 04/02/22: Continue current regime Mucinex DM prn 04/03/22: Azithromycin 500 mg today, 250 mg x 4 days thereafter 04/04/22: Continue current regime 04/05/22: IModium prn for diarrhea Monitor for increasing risk of self harm 04/06/22: Resolving physical sx of COVID Increasing emotional sx, feeling tired, worn, drained. 04/07/22: Discontinue Ibuprofen BMP, Li, TSH 04/08/22 Olanzapine 5 mg prn to alternate with 10 mg for SIBS, SI, impulsivity 04/08 continue tx. 04/09 continue tx. 04/10 continue tx. 04/11 continue tx. -monitor for sinus discomfort -check lithium level tomorrow morning -remain on one-to-one 04/12 pt would like to keep lithium level at 0.7, currently at 1.0, will decrease morning dose to 450mg po daily and keep 600mg po qhs. continue one to one. 04/13 continue tx. 04/14 continue tx, re check lithium level next . 04/15 ocontinue tx. 04/16 add benadryl 50mg po qhs one time but if helpful may want to schedule. 04/17 continue current treatment regimen with Benadryl q.h.s. ?Discussed case with nursing; met with patient; reviewed vitals and mildly tachycardic but otherwise WNL 04/18 Discussed case with nursing; met with patient; reviewed vitals and mildly hypertensive. Remain on one-to-one as patient reports active SI 04/21/22- Continue current plan Possible family meeting 04/23. 04/22/22- Family meeting 04/28 1pm Perphenazine 4 mg bid prn dissociative sx, anxiety to assist with grounding 04/24/22- Continue current regime 04/26/22-Continue current plan. Preparing for family meeting 04/28. Discontinue Perphenazine prn Latuda 20 mg hs. 04/27/22: Continue current plan. Preparing for family meeting 04/28. Encouraged Sandi to make a brief outline to refer to in case of distraction/anxiety during the meeting. 04/29/22: Discontinue Olanzapine Discontinue Latuda Chlorpromazaine 100 mg HS and daily prn 04/30/22: Increase Chlorpromazine to 200 mg HS and daily prn. 05/01: continue tx pln. 05/02: Continue current plan. 05/03/22: Decrease chlorpromazine to 150 mg HS and daily prn Will trial pt off one to one on 02-08 shift beginning on Tuesday evening. 05/06/22: Decrease one to one on 05/07/22 from 10am-3pm. 05/07/22: Decrease CPZ to 125 mg HS and prn On 05/08 increase Latuda to 40 mg 1900 05/08/2022: Will lowered chlorpromazine p.r.n. dose from 125 mg to 100 mg 05/09/2022: No changes to current plan 05/10/22: Increase HS CPZ to 150 mg Increase Latuda to 60 mg 1900 Discontinue 1:1 05/11/22: Continue current plan. 05/12/22: Discontinue Latuda Add Chlorpromazine 100 mg a.m. 05/14/22: Discontinue a.m. Chlorpromazine. Continue 150 mg HS and 100 mg daily prn with plan to continue to decrease Geodon 20 mg hs Colace 100 mg bid Patient educated on: medication risk/benefits, therapeutic strategies and medical condition Informed Consent: understands and further education needed Reason for contiued inpatient stay Substantial Risk for: harm to self, inability to function and rapid decompensation Time Spent With Patient Time: Total time managing care of this patient today 15 minutes.
--- NOTE | 2022-05-14 18:49 | PC.NURSE ---
Spoke w/ Dr. Benitez regarding need for consult for RLQ abscess at which time she asked that I send a photo to her via [employer] text as she was going into the OR. Picture sent and read.
[2022-05-14] MEDS: Acetaminophen 325 MG TABLET 650 MG PO (19:54)
--- NOTE | 2022-05-14 20:14 | P.CONGS_ITS ---
History of Present Illness Consult details Consult date: 05/14/22 Narrative: the pt is a 36 year old female with left abdominal wall area of cellulitis and infalmmation and ? abscess. She says she gets these sometimes in her groin area etc and it just resolves. she denies ever having mrsa. this area has been present but has gotten worse over time. 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 Review of Systems Review of Systems: Yes all other systems are reviewed and are negative PMFSH Past Medical History Medical History Dermoid cyst PTSD (post-traumatic stress disorder) Social History Social History Household Members: Other Household Members Other:: one roommate Housing: Apartment Housing Other:: downstairs landlord Do you presently have visiting nurse or other home services: Yes Alcohol intake: never Patient Tobacco Use Status: Current everyday Tobacco user Tobacco use type: Cigarette Cigarette Packs Per Day: 0.5 Cigarettes Per Day: 10.0 Years Smoked: 20 Smoked in Last 30 Days: Yes e-Cigarette/Vaping Use: Never Used Patient Interested in Nicotine Replacement: Yes (Pt would like nicotine patch and gum) Patient Given Instructions on How to Stop Smoking: Yes Date Education Initiated: 03/22/22 Second Hand Smoke Exposure: Yes Substance Use Type: Marijuana Substance Use Frequency: Daily Last Used Substance: Just Prior to Admission Currently Displaying Signs/Symptoms of Drug Intoxication Withdrawal: No Any prior treatment program specific to substance use: No Have you been hit, kicked, punched, or otherwise hurt by someone within the past year? If so, by whom?: No Do you feel safe in your current relationship?: No Current Relationship Is there a partner from a previous relationship who is making you feel unsafe now?: No Are you made to feel afraid or neglected: No Spiritual Healthcare Practices: None Congregation Healthcare Practices: None Cultural Healthcare Practices: Benedicto Advance Directives: No Advance Directives Information Provided: No Healthcare Proxy: No Guardian: No Suicidal Behavior: Aborted suicide attempts, History of suicide attemps, Pre- occupation with and Self-injurious behavior Current/Past Psychiatric Disorders: Chronic mental illess and PTSD Singh Symptoms: Anxiety, Global insomia, Hopelessness, Impulsivity, Panic and Worthlessness Family History: Attempts Change in Treatment: Discharged from [facility] Access to Firearms: No Do you have thoughts of harming others: None Do you have a plan to hurt others: No Plan Recently lost weight without trying: Yes How much weight loss: 2-13 pounds Eating poorly because of decreased appetite: Yes Nutrition screen score: 4 Nutrition Risks: No Nutritional Risk Patient : No : No Poor oral hygiene: No service: No Sexual orientation: Did not discuss Meds Allergies Allergy/AdvReac Type Severity Reaction Status Date / Time Sulfa (Sulfonamide Allergy Unknown Hives Verified 05/06/22 09:25 Antibiotics) [SULFA (SULFONAMIDE ANTIBIOTICS)] sulfamethoxazole Allergy Unknown Hives Verified 05/06/22 09:25 [From BACTRIM] trimethoprim [From BACTRIM] Allergy Unknown Hives Verified 05/06/22 09:25 lurasidone [From Latuda] AdvReac Intermediate anger, rage Verified 05/12/22 12:20 oseltamivir [From Tamiflu] AdvReac Sensation Verified 09/29/21 11:20 of bugs crawling on skin. Active Medications: Current Medications Acetaminophen (Acetaminophen 325 Mg Tablet) 650 mg PO Q6H PRN PRN Reason: Headache/Pain Mild Scale (1-3) Last Admin: 05/14/22 19:54 Dose: 650 mg Al Hydroxide/Mg Hydroxide (Magnesium Hydrox/Alum Hydrox 30 Ml Oral.Susp) 30 ml PO Q6H PRN PRN Reason: Heartburn/Nausea Last Admin: 04/25/22 10:25 Dose: 30 ml Alprazolam (Alprazolam 0.5 Mg Tablet) 1 mg PO QID PRN PRN Reason: Anxiety Last Admin: 05/14/22 13:51 Dose: 1 mg Amphetamine/Dextroamphetamine (Amphetamine Mixed Salts 10 Mg Tablet) 10 mg PO 1400 [facility] Last Admin: 05/14/22 13:51 Dose: 10 mg Amphetamine/Dextroamphetamine (Dextroamphetamine/Amphetamine Xr 10 Mg Cap.Er.24h) 30 mg PO DAILY [facility] Last Admin: 05/14/22 08:59 Dose: 30 mg Benzocaine (Throat Lozenge, Medicated Lozenge) 1 lozenge MUCOUS MEM Q2H PRN PRN Reason: Sore Throat Last Admin: 04/03/22 10:20 Dose: 1 lozenge Bisacodyl (Bisacodyl 5 Mg Tablet.Dr) 10 mg PO DAILY PRN PRN Reason: Constipation Last Admin: 05/08/22 12:01 Dose: 10 mg Chlorpromazine HCl (Chlorpromazine Hcl 100 Mg Tablet) 100 mg PO DAILY PRN PRN Reason: intrusive thoughts Last Admin: 05/13/22 14:20 Dose: 100 mg Chlorpromazine HCl (Chlorpromazine Hcl 25 Mg Tablet) 150 mg PO BEDTIME [facility]ACE[facility] Last Admin: 05/13/22 20:54 Dose: 150 mg Diphenhydramine HCl (Diphenhydramine Hcl 25 Mg Capsule) 50 mg PO BEDTIME PRN PRN Reason: Insomnia Last Admin: 05/14/22 02:58 Dose: 50 mg Docusate Sodium (Docusate Sodium 100 Mg Capsule) 100 mg PO BID [facility] Fluticasone Propionate (Fluticasone Propionate Nasal 16 Gm Ethel) 1 spray NOSTRIL-B DAILY [facility] Last Admin: 05/14/22 08:59 Dose: 1 spray Guaifenesin/Dextromethorphan (Guaifenesin Dm 600/30 1 Tab Tab.Er.12h) 1 tab PO BID PRN PRN Reason: cough, congestion Last Admin: 04/13/22 09:11 Dose: 1 tab Hydroxyzine HCl (Hydroxyzine Hcl 25 Mg Tablet) 25 mg PO Q6H PRN PRN Reason: Anxiety Last Admin: 05/08/22 21:28 Dose: 25 mg Lactulose (Lactulose 20 Gm/30 Ml Solution) 10 gm PO DAILY PRN PRN Reason: Constipation Last Admin: 05/01/22 10:00 Dose: 10 gm [place] Carbonate ([place] Carbonate Er 300 Mg Tablet.Er) 600 mg PO BID [facility] Last Admin: 05/14/22 09:00 Dose: 600 mg Loperamide HCl (Loperamide Hcl 2 Mg Capsule) 4 mg PO Q4H PRN PRN Reason: Diarrhea Last Admin: 04/06/22 16:14 Dose: 4 mg Magnesium Hydroxide (Milk Of Magnesia 30 Ml Oral.Susp) 30 ml PO DAILY PRN PRN Reason: Constipation Last Admin: 03/25/22 11:00 Dose: 30 ml Melatonin (Melatonin 3 Mg Tablet) 12 mg PO BEDTIME [facility] Last Admin: 05/13/22 20:53 Dose: 12 mg Multi-Ingred Medicated Throat [place] (Throat [place], Medicated 177 Ml Bottle) 1 spray MUCOUS MEM Q2H PRN PRN Reason: Sore Throat Last Admin: 05/10/22 09:28 Dose: 1 spray Nicotine (Nicotine 14 Mg Patch.Td24) 14 mg TRANSDERMA DAILY PRN PRN Reason: nicotine craving Nicotine Polacrilex (Nicotine Polacrilex 2 Mg Gum) 2 mg BUCCAL Q2H PRN PRN Reason: nicotine withdrawal Last Admin: 03/29/22 09:32 Dose: 2 mg Patient Own Medication ( Desvenlafaxine 100 Mg Er Tablet) 1 tab PO DAILY [facility] Last Admin: 05/14/22 08:59 Dose: 1 tab Pt Own (Super B (Complex)) 1 tab PO DAILY [facility] Last Admin: 05/14/22 08:59 Dose: 1 tab Pharmacy Consult (Consult Rx Vancomycin Dosing) 1 each MISCELLANE DAILY PRN PRN Reason: Consult order Polyethylene Glycol (Polyethylene Glycol 3350 17 Gm Powd.Pack) 17 gm PO DAILY PRN PRN Reason: constipation Last Admin: 05/08/22 12:01 Dose: 17 gm Prazosin HCl 10 mg/ Prazosin (HCl 4 mg) 14 mg PO BEDTIME [facility] Last Admin: 05/13/22 20:52 Dose: 14 mg Saliva Substitute (Dry Mouth Ethel 60 Ml Ethel) 1 spray MUCOUS MEM Q2H PRN PRN Reason: Dry Mouth Trazodone HCl (Trazodone Hcl 100 Mg Tablet) 300 mg PO BEDTIME [facility] Last Admin: 05/13/22 20:54 Dose: 300 mg Vitamin D (Cholecalciferol (Vitamin D3) 25 Mcg Tablet) 50 mcg PO DAILY [facility] Last Admin: 05/14/22 09:00 Dose: 50 mcg Ziprasidone (Ziprasidone 20 Mg Capsule) 20 mg PO BEDTIME [facility] Home Medications Medication Instructions Recorded Confirmed Last Taken Type alprazolam 1 mg tablet 1 tab PO QID PRN Anxiety 03/21/22 03/21/22 Unknown History benztropine 0.5 mg tablet 1 tab PO BID 03/21/22 03/21/22 Unknown History cholecalciferol (vitamin D3) 50 1 cap PO DAILY 03/21/22 03/21/22 Unknown History mcg (2,000 unit) capsule (Vitamin D3) dextroamphetamine-amphetamine 20 1 tab PO DAILY 03/21/22 03/21/22 Unknown History mg tablet lithium carbonate 300 mg 2 tab PO BID 03/21/22 03/21/22 Unknown History tablet,extended release melatonin 3 mg tablet 9 mg PO BEDTIME 03/21/22 03/21/22 Unknown History prazosin 2 mg capsule 1 cap PO BID 03/21/22 03/21/22 Unknown History prazosin 5 mg capsule 14 mg PO BEDTIME 03/21/22 03/21/22 Unknown History thiamine HCl (vitamin B1) 100 mg 1 tab PO DAILY 03/21/22 03/21/22 Unknown History tablet trazodone 50 mg tablet 1 tab PO BEDTIME 03/21/22 03/21/22 Unknown History Physical Exam Vital Signs: Vital Signs: Last Vital Signs Temp 98.1 F 05/14/22 10:45 Pulse 108 H 05/14/22 10:45 Resp 16 05/14/22 10:45 BP 127/70 05/14/22 10:45 Pulse Ox 96 05/14/22 10:45 O2 Del Method 05/14/22 10:45 BMI result Body Mass Index 40.3 Skin: Other: right lower abdominal wall area with large area of erythema and central aspect with some soft skin but doesnt feel like true fluctuance area is tender to palpation no break in the skin no drainage. Results Labs 05/05/22 08:29 05/05/22 08:29 Labs: Urine 03/21/22 03/21/22 Range/Units 04:05 04:05 Urine Color Yellow Urine Appearance Clear Urine pH 7.0 (5.0-9.0) Ur Specific [place] <= 1.005 (1.005-1.025) Urine Protein Negative (Neg-Trace) mg/dL Urine Glucose (UA) Negative (Negative) mg/dL Urine Test NEGATIVE (NEGATIVE) All other labs normal. Assessment and Plan (1) Cellulitis, abdominal wall: Status: Acute Plan 36 year old female with psych issues in pt psych unit with abdominal wall cellu litis and possible early abscess- plan to treat with iv vanco and will follow over the weekend to see if it needs to be drained or if it drains on its own. discussed with psych md team Time Spent With Patient Time: Total time managing care of this patient today ____ minutes. Procedures Date of Service Date of Service: 05/14/22
[2022-05-14 21:06] LABS: Estimated Glomerular Filt Rate > 60
--- NOTE | 2022-05-14 22:39 | PHA.PROG ---
Admission Date/Time: March 22, 2022 14:20 Indication: SKIN Weight in k.398 kg Adjusted body weight in K.939 [place] body weight in K.3 Obesity Dosing Indication % IBW:40.4 Serum Creatinine - Last 168 Hours 05/14/22 20:39 Creatinine 0.79 Estimated CrCl and GFR - Last 168 Hours 05/14/22 20:39 Estim Creat Clear Calc 127.0 Estimated GFR > 60 Vancomycin Loading Dose: 1750 Current Vancomycin Dosing Regimen: 1000 Q12 Vancomycin Monitoring using AUC goal of 400 - 600 range with trough as surrogate marker: EXPECT AUC OF 442 AFTER 3RD DOSE Date and Time for next Vancomycin Level to be drawn: TPD BASED ON WHEN LOADING DOSE IS GIVEN Pharmacist Comments on Vancomycin Plan: WAITING FOR M5 NURSES TO START LOADING DOSE SO WE CAN PUT IN NEXT DOSE TO BE GIVEN. Vancomycin dosing will take advantage of [employer] as a clinical decision support tool that uses Bayesian modeling to calculate individual patient's pharmacokinetic parameters and forecast the patient's drug concentration time course with the target goal AUC 24 range of 400 - 600 mg/L/hr.
[2022-05-14] MEDS: PRAZOSIN HCL 14 MG PO (23:00)
[2022-05-14] MEDS: Docusate Sodium 100 MG CAPSULE PO (23:00)
[2022-05-14] MEDS: Ziprasidone 20 MG CAPSULE PO (23:00)
[2022-05-14] MEDS: Melatonin 3 MG TABLET 12 MG PO (23:01)
[2022-05-14] MEDS: traZODone HCL 100 MG TABLET 300 MG PO (23:02)
[2022-05-14] MEDS: chlorproMAZINE HCl 25 MG TABLET 150 MG PO (23:02)
[2022-05-15] MEDS: vancomycin HCL 1,000 MG, vancomycin HCL 750 MG in 0.9 % Sodium Chloride 500 ML 267.5 MG IV (01:17)
[2022-05-15] MEDS: Fluticasone Propionate Nasal 16 GM SPRAY 1 SPRAY NOSTRIL-B (08:26)
[2022-05-15] MEDS: Cholecalciferol (Vitamin D3) 25 MCG TABLET 50 MCG PO (08:27)
[2022-05-15] MEDS: Docusate Sodium 100 MG CAPSULE PO ×2 (08:27→20:25)
[2022-05-15] MEDS: Lithium Carbonate ER 300 MG TABLET.ER 600 MG PO ×2 (08:28→20:25)
[2022-05-15] MEDS: Dextroamphetamine/Amphetamine XR 10 MG CAP.ER.24H 30 MG PO (08:28)
[2022-05-15] MEDS: ALPRAZolam 0.5 MG TABLET 1 MG PO ×2 (08:33→20:24)
[2022-05-15 08:35] VITALS: BP 138/78; PULSE 109; RESP 18; TEMP 36; O2SAT 98
--- NOTE | 2022-05-15 08:53 | PC.NURSE ---
Patient refused this RN to assess RLQ wound and outline with marker. It is too gross I am embarrassed .
--- NOTE | 2022-05-15 09:36 | P.PNPSI_ITS ---
Subjective Subjective Date of Service: 05/15/22 Reason For Visit: Depression SI PTSD Interim History: pt seen; discussed in teams; discussed case with surgical consult who is following regarding cellulitis/burgeoning abcess; examined patient's cellulitis with female nursing staff present Patient reports that she is feeling a little emotionally better overall than when she 1st came in. She hopes to get back off one-to-one. She says being off Latuda seems to be helping and hopes that Geodon proves effective. She said discomfort and attention to cellulitis is helping distract from SI Focused examination of abdomen and cellulitis site reveals healing and significant reduction in erythemia. Patient asks for pain medication since on lithium, agrees to Tylenol with increased dose Mental Status Exam Mental Status Exam Narrative: NAD. Normally ambulation. Motor activity calm. Patient Appearance: Appropriate Patient Orientation: Person, Place, Time and Situation Level of Consciousness: Alert Patient Behavior: Appropriate, Talkative, Cooperative and Good Eye Contact Mood Description: Calm and Depressed Affect Description: Withdrawn Patient Cognition Impaired: No Ability to Follow Directions: Good Speech Pattern: Spontaneous Speech Memory Description: Intact Hallucinations: None Delusions: Not Present Perceptual Disturbances: Depersonalization Thought Process: Goal Oriented and Linear Thought Content: positive for Perseveration, positive for Preoccupation and positive for Suicidal Ideation Depressive Symptoms: Increased Irritability, Crying Spells, Feelings of Worthlessness, Hopelessness, Isolating-Friends/Family, Feelings of Guilt, Unhappiness, Thoughts of /Suicide, Low Self Esteem and Difficulty Concentrating Judgement and Insight: Impaired but improving Diagnostics Vital Signs (24Hr): Vital Signs - 24 hr 05/14/22 10:45 05/15/22 08:35 Temperature 98.1 F 96.8 F Pulse Rate 108 H 109 H Respiratory Rate 16 18 Blood Pressure 127/70 138/78 Pulse Oximetry 96 98 Oxygen Delivery Method Room Air Room Air BMI result Body Mass Index 40.3 Labs 05/05/22 08:29 05/14/22 20:39 Labs: Laboratory Results - last 48 hr 05/14/22 20:39 Creatinine 0.79 Estim Creat Clear Calc 127.0 Estimated GFR > 60 Imaging Radiology Impressions: ITS Impressions Head CT 05/12/22 13:34 IMPRESSION: 1. No acute intracranial process seen. 2. Moderate-sized polyp or retention cyst right maxillary sinus. 3. There are multiple small subcutaneous lesions in the scalp, ? sebaceous cyst versus Warts. These have slightly increased in size since previous CT 03/17/2021 Medications Medications Current Medications Acetaminophen (Acetaminophen 325 Mg Tablet) 650 mg PO Q6H PRN PRN Reason: Headache/Pain Mild Scale (1-3) Last Admin: 05/14/22 19:54 Dose: 650 mg Al Hydroxide/Mg Hydroxide (Magnesium Hydrox/Alum Hydrox 30 Ml Oral.Susp) 30 ml PO Q6H PRN PRN Reason: Heartburn/Nausea Last Admin: 04/25/22 10:25 Dose: 30 ml Alprazolam (Alprazolam 0.5 Mg Tablet) 1 mg PO QID PRN PRN Reason: Anxiety Last Admin: 05/15/22 08:33 Dose: 1 mg Amphetamine/Dextroamphetamine (Amphetamine Mixed Salts 10 Mg Tablet) 10 mg PO 1400 [facility] Last Admin: 05/14/22 13:51 Dose: 10 mg Amphetamine/Dextroamphetamine (Dextroamphetamine/Amphetamine Xr 10 Mg Cap.Er.24h) 30 mg PO DAILY [facility] Last Admin: 05/15/22 08:28 Dose: 30 mg Benzocaine (Throat Lozenge, Medicated Lozenge) 1 lozenge MUCOUS MEM Q2H PRN PRN Reason: Sore Throat Last Admin: 04/03/22 10:20 Dose: 1 lozenge Bisacodyl (Bisacodyl 5 Mg Tablet.Dr) 10 mg PO DAILY PRN PRN Reason: Constipation Last Admin: 05/08/22 12:01 Dose: 10 mg Chlorpromazine HCl (Chlorpromazine Hcl 100 Mg Tablet) 100 mg PO DAILY PRN PRN Reason: intrusive thoughts Last Admin: 05/13/22 14:20 Dose: 100 mg Chlorpromazine HCl (Chlorpromazine Hcl 25 Mg Tablet) 150 mg PO BEDTIME [facility] Last Admin: 05/14/22 23:02 Dose: 150 mg Diphenhydramine HCl (Diphenhydramine Hcl 25 Mg Capsule) 50 mg PO BEDTIME PRN PRN Reason: Insomnia Last Admin: 05/14/22 02:58 Dose: 50 mg Docusate Sodium (Docusate Sodium 100 Mg Capsule) 100 mg PO BID [facility] Last Admin: 05/15/22 08:27 Dose: 100 mg Fluticasone Propionate (Fluticasone Propionate Nasal 16 Gm [place]) 1 spray NOSTRIL-B DAILY [facility] Last Admin: 05/15/22 08:26 Dose: 1 spray Guaifenesin/Dextromethorphan (Guaifenesin Dm 600/30 1 Tab Tab.Er.12h) 1 tab PO BID PRN PRN Reason: cough, congestion Last Admin: 04/13/22 09:11 Dose: 1 tab Hydroxyzine HCl (Hydroxyzine Hcl 25 Mg Tablet) 25 mg PO Q6H PRN PRN Reason: Anxiety Last Admin: 05/08/22 21:28 Dose: 25 mg Lactulose (Lactulose 20 Gm/30 Ml Solution) 10 gm PO DAILY PRN PRN Reason: Constipation Last Admin: 05/01/22 10:00 Dose: 10 gm [place] Carbonate ([place] Carbonate Er 300 Mg Tablet.Er) 600 mg PO BID [facility] Last Admin: 05/15/22 08:28 Dose: 600 mg Loperamide HCl (Loperamide Hcl 2 Mg Capsule) 4 mg PO Q4H PRN PRN Reason: Diarrhea Last Admin: 04/06/22 16:14 Dose: 4 mg Magnesium Hydroxide (Milk Of Magnesia 30 Ml Oral.Susp) 30 ml PO DAILY PRN PRN Reason: Constipation Last Admin: 03/25/22 11:00 Dose: 30 ml Melatonin (Melatonin 3 Mg Tablet) 12 mg PO BEDTIME [facility] Last Admin: 05/14/22 23:01 Dose: 12 mg Multi-Ingred Medicated Throat [place] (Throat [place], Medicated 177 Ml Bottle) 1 spray MUCOUS MEM Q2H PRN PRN Reason: Sore Throat Last Admin: 05/10/22 09:28 Dose: 1 spray Nicotine (Nicotine 14 Mg Patch.Td24) 14 mg TRANSDERMA DAILY PRN PRN Reason: nicotine craving Nicotine Polacrilex (Nicotine Polacrilex 2 Mg Gum) 2 mg BUCCAL Q2H PRN PRN Reason: nicotine withdrawal Last Admin: 03/29/22 09:32 Dose: 2 mg Patient Own Medication ( Desvenlafaxine 100 Mg Er Tablet) 1 tab PO DAILY [facility] Last Admin: 05/15/22 08:26 Dose: 1 tab Pt Own (Super B (Complex)) 1 tab PO DAILY [facility] Last Admin: 05/15/22 08:25 Dose: 1 tab Pharmacy Consult (Consult Rx Vancomycin Dosing) 1 each MISCELLANE DAILY PRN PRN Reason: Consult order Polyethylene Glycol (Polyethylene Glycol 3350 17 Gm Powd.Pack) 17 gm PO DAILY PRN PRN Reason: constipation Last Admin: 05/08/22 12:01 Dose: 17 gm Prazosin HCl 10 mg/ Prazosin (HCl 4 mg) 14 mg PO BEDTIME [facility] Last Admin: 05/14/22 23:00 Dose: 14 mg Saliva Substitute (Dry Mouth [place] 60 Ml [place]) 1 spray MUCOUS MEM Q2H PRN PRN Reason: Dry Mouth Trazodone HCl (Trazodone Hcl 100 Mg Tablet) 300 mg PO BEDTIME [facility] Last Admin: 05/14/22 23:02 Dose: 300 mg Vitamin D (Cholecalciferol (Vitamin D3) 25 Mcg Tablet) 50 mcg PO DAILY [facility] Last Admin: 05/15/22 08:27 Dose: 50 mcg Ziprasidone (Ziprasidone 20 Mg Capsule) 20 mg PO BEDTIME [facility] Last Admin: 05/14/22 23:00 Dose: 20 mg Allergies Allergies Allergy/AdvReac Type Severity Reaction Status Date / Time Sulfa (Sulfonamide Allergy Unknown Hives Verified 05/06/22 09:25 Antibiotics) [SULFA (SULFONAMIDE ANTIBIOTICS)] sulfamethoxazole Allergy Unknown Hives Verified 05/06/22 09:25 [From BACTRIM] trimethoprim [From BACTRIM] Allergy Unknown Hives Verified 05/06/22 09:25 lurasidone [From Latuda] AdvReac Intermediate anger, rage Verified 05/12/22 12:20 oseltamivir [From Tamiflu] AdvReac Sensation Verified 09/29/21 11:20 of bugs crawling on skin. Assessment & Plan Assessment & Plan (1) PTSD (post-traumatic stress disorder): Status: Acute Code(s): F43.10 - Post-traumatic stress disorder, unspecified (2) MDD (major depressive disorder), recurrent severe, without psychosis: Status: Acute Code(s): F33.2 - Major depressive disorder, recurrent severe without psychotic features (3) Suicidal ideation: Status: Acute Code(s): R45.851 - Suicidal ideations (4) Cellulitis, abdominal wall: Status: Acute Code(s): L03.311 - Cellulitis of abdominal wall Plan 36 yo non binary, prefers they/them pronouns with SI. 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 Several serious precipitants-holidays, anniversary of the loss of a child they planned to co-parent and therapist moved from the area at the end of Feb 2022 however pt will be continuing via telehelath. Plan: Message left for Nathen Mesa. Pt wanting to change Pristiq, possibly re-start Olanzapine. We would like his input if possible. Pristiq ordered from [employer] as it is not on formulary Collateral contact as needed Assist pt to re-establish safety. 03/24/22: Continue current plan. 03/25/22: Olanzapine prn 03/26/22: Lactulose for constipation ? Safety discussion with pt. Increase in anxiety after her ER experience. Working with team to manage her impulsivity. 03/27:? Continue current regimen and plans with increase of trazodone to 300 mg 03/28: Continue current plans and regimen. 03/29: Continue current regimen and plans.? A 3 day notice has been placed 03/30/22: On 03/31, Increase Adderall to 30 mg XR q a.m. 04/01/22: Increase Melatonin to 11 mg HS. 04/02/22: Continue current regime ? Mucinex DM prn 04/03/22: Azithromycin 500 mg today, 250 mg x 4 days thereafter 04/04/22: Continue current regime 04/05/22: IModium prn for diarrhea ? Monitor for increasing risk of self harm 04/06/22: Resolving physical sx of COVID ? Increasing emotional sx, feeling tired, worn, drained. 04/07/22: Discontinue Ibuprofen ? BMP, Li, TSH 04/08/22 ? Olanzapine 5 mg prn to alternate with 10 mg for SIBS, SI, impulsivity 04/08 continue tx. 04/09 continue tx. 04/10 continue tx. 04/11 continue tx. -monitor for sinus discomfort -check lithium level tomorrow morning -remain on one-to-one 04/12 pt would like to keep lithium level at 0.7, currently at 1.0, will decrease morning dose to 450mg po daily and keep 600mg po qhs. continue one to one. 04/13 continue tx. 04/14 continue tx, re check lithium level next . 04/15 ocontinue tx. 04/16 add benadryl 50mg po qhs one time but if helpful may want to schedule. 04/17 continue current treatment regimen with Benadryl q.h.s. ?Discussed case with nursing; met with patient; reviewed vitals and mildly tachycardic but otherwise WNL 04/18 Discussed case with nursing; met with patient; reviewed vitals and mildly hypertensive. Remain on one-to-one as patient reports active SI 04/21/22- Continue current plan ? Possible family meeting 04/23. 04/22/22- Family meeting 04/28 1pm ? Perphenazine 4 mg bid prn dissociative sx, anxiety to assist with grounding 04/24/22- Continue current regime 04/26/22-Continue current plan. Preparing for family meeting 04/28. ? Discontinue Perphenazine prn ? Latuda 20 mg hs. 04/27/22: Continue current plan. Preparing for family meeting 04/28. Encouraged Sandi to make a brief outline to refer to in case of distraction/anxiety during the meeting. 04/29/22: Discontinue Olanzapine ? Discontinue Latuda ? Chlorpromazaine 100 mg HS and daily prn 04/30/22: Increase Chlorpromazine to 200 mg HS and daily prn. 05/01: continue tx pln. 05/02: Continue current plan. 05/03/22: Decrease chlorpromazine to 150 mg HS and daily prn ? Will trial pt off one to one on 11-7 shift beginning on Tuesday evening. 05/06/22: Decrease one to one on 05/07/22 from 10am-3pm. 05/07/22: Decrease CPZ to 125 mg HS and prn ? On 05/08 increase Latuda to 40 mg 1900 ?05/08/2022:? Will lowered chlorpromazine p.r.n. dose from 125 mg to 100 mg 05/09/2022: No changes to current plan 05/10/22: Increase HS CPZ to 150 mg ? Increase Latuda to 60 mg 1900 ? Discontinue 1:1 05/11/22: Continue current plan. 05/12/22: Discontinue Latuda ? Add Chlorpromazine 100 mg a.m. 05/14/22: Discontinue a.m. Chlorpromazine. Continue 150 mg HS and 100 mg daily prn with plan to continue to decrease ? Geodon 20 mg hs ? Colace 100 mg bid 05/15 surgery following; treating abdominal wall Cellulitis (possible early abscess) with IV vanco; will assess if needs to be drained or if it drains on its own. Increased Tylenol to 1000 mg t.i.d. p.r.n. for pain; otherwise continue current treatment plan Patient educated on: diagnosis, medication risk/benefits and medical condition Informed Consent: understands Reason for contiued inpatient stay Substantial Risk for: rapid decompensation Time Spent With Patient Time: Total time managing care of this patient today ____ minutes.
--- NOTE | 2022-05-15 12:12 | PC.NURSE ---
nurse dressed the wound on RLA today with gauze because it was draining. drainage was sanguineous and foul smelling. the drainage was leaking down unto patients leg. wound is red, and is brown in the middle. there is swelling present.
--- NOTE | 2022-05-15 12:42 | PHA.PROG ---
Admission Date/Time: March 22, 2022 14:20 Indication: skin Weight in k.398 kg Adjusted body weight in Kg: [place] body weight in Kg: Obesity Dosing Indication % IBW: Serum Creatinine - Last 168 Hours 05/14/22 20:39 Creatinine 0.79 Estimated CrCl and GFR - Last 168 Hours 05/14/22 20:39 Estim Creat Clear Calc 127.0 Estimated GFR > 60 Vancomycin Loading Dose: 1750mg x 1 Current Vancomycin Dosing Regimen: 1000mg Q12H Vancomycin Monitoring using AUC goal of 400 - 600 range with trough as surrogate marker: 444mg/L Date and Time for next Vancomycin Level to be drawn: 05/16/22 @1100 Pharmacist Comments on Vancomycin Plan: obesity model being used; will continue to monitor renal function Vancomycin dosing will take advantage of [employer] as a clinical decision support tool that uses Bayesian modeling to calculate individual patient's pharmacokinetic parameters and forecast the patient's drug concentration time course with the target goal AUC 24 range of 400 - 600 mg/L/hr.
[2022-05-15 13:08] LABS: Creatinine Clr Calc Pharmacy 119.4; Estimated Glomerular Filt Rate > 60
[2022-05-15] MEDS: Acetaminophen 325 MG TABLET 975 MG PO ×2 (13:10→20:26)
[2022-05-15] MEDS: vancomycin HCL 1,000 MG in 0.9 % Sodium Chloride 250 ML 270 MG IV (13:52)
--- NOTE | 2022-05-15 13:53 | PC.NURSE ---
pt is given vanco at 13:52. no signs of phlebitiis or inflammation at the site. pt is tolerating well.
[2022-05-15] MEDS: Amphetamine Mixed Salts 10 MG TABLET PO (14:30)
[2022-05-15 18:00] VITALS: BP 115/58; PULSE 90; TEMP 36.4; O2SAT 97
[2022-05-15] MEDS: Melatonin 3 MG TABLET 12 MG PO (20:25)
[2022-05-15] MEDS: PRAZOSIN HCL 14 MG PO (20:25)
[2022-05-15] MEDS: Ziprasidone 20 MG CAPSULE PO (20:25)
[2022-05-15] MEDS: chlorproMAZINE HCl 25 MG TABLET 150 MG PO (20:25)
[2022-05-15] MEDS: traZODone HCL 100 MG TABLET 300 MG PO (20:25)
--- NOTE | 2022-05-15 23:36 | PC.NURSE ---
pt IV was flushed during evening shift. IV was patent and no swelling was present
[2022-05-16] MEDS: vancomycin HCL 1,000 MG in 0.9 % Sodium Chloride 250 ML 250 MG IV (01:55)
[2022-05-16 07:10] LABS: Creatinine Clr Calc Pharmacy 120.9; Estimated Glomerular Filt Rate > 60
[2022-05-16 09:35] VITALS: BP 125/58; PULSE 96; RESP 16; TEMP 36.8; O2SAT 97
[2022-05-16] MEDS: Fluticasone Propionate Nasal 16 GM SPRAY 1 SPRAY NOSTRIL-B (09:40)
[2022-05-16] MEDS: Docusate Sodium 100 MG CAPSULE PO ×2 (09:41→22:05)
[2022-05-16] MEDS: Dextroamphetamine/Amphetamine XR 10 MG CAP.ER.24H 30 MG PO (09:41)
[2022-05-16] MEDS: Lithium Carbonate ER 300 MG TABLET.ER 600 MG PO ×2 (09:41→22:05)
[2022-05-16] MEDS: Cholecalciferol (Vitamin D3) 25 MCG TABLET 50 MCG PO (09:41)
[2022-05-16] MEDS: ALPRAZolam 0.5 MG TABLET 1 MG PO ×2 (09:41→15:45)
[2022-05-16 11:14] LABS: Vancomycin Trough 6.6 mcg/mL (10.0-20.0)
--- NOTE | 2022-05-16 11:29 | HE.PHANOTE ---
RE: vanco Patient's trough came back low at 6.6, increased dose to 1000mg Q8H with predicted AUC 427mg/L, trough 9.1. Next level to be drawn 05/17/22 @1100. Proceeding cautiously due to obesity/dose dumping.
--- NOTE | 2022-05-16 13:56 | HO.PSYCHPN ---
Subjective Subjective Date of Service: 05/16/22 Reason For Visit: Depression SI PTSD Interim History: Met with patient; Discussed with team; briefly discussed case with Dr. Benitez who agrees cellulitis is resolving but wants patient to remain on IV vanco Patient continues to say that she feels her mood is overall better. She does hope to get off one-to-one at some point soon. She says the IV is bothering her and wonders about a PICC line which sba underwriter said will inquire further with surgeon Mental Status Exam Mental Status Exam Narrative: NAD. Normally ambulation. Motor activity calm. Patient Appearance: Appropriate Patient Orientation: Person, Place, Time and Situation Level of Consciousness: Alert Patient Behavior: Appropriate, Talkative, Cooperative and Good Eye Contact Mood Description: Calm and Depressed Affect Description: Withdrawn Patient Cognition Impaired: No Ability to Follow Directions: Good Speech Pattern: Spontaneous Speech Memory Description: Intact Hallucinations: None Delusions: Not Present Perceptual Disturbances: Depersonalization Thought Process: Goal Oriented and Linear Thought Content: positive for Perseveration, positive for Preoccupation and positive for Suicidal Ideation Depressive Symptoms: Increased Irritability, Crying Spells, Feelings of Worthlessness, Hopelessness, Isolating-Friends/Family, Feelings of Guilt, Unhappiness, Thoughts of /Suicide, Low Self Esteem and Difficulty Concentrating Judgement and Insight: Impaired but improving Diagnostics Vital Signs (24Hr): Vital Signs - 24 hr 05/15/22 18:00 05/16/22 09:35 Temperature 97.5 F 98.2 F Pulse Rate 90 96 Respiratory Rate 16 Blood Pressure 115/58 L 125/58 L Pulse Oximetry 97 97 Oxygen Delivery Method Room Air Room Air BMI result Body Mass Index 40.3 Labs 05/05/22 08:29 05/16/22 06:49 Labs: Laboratory Results - last 48 hr 05/14/22 05/15/22 05/16/22 20:39 12:50 06:49 Creatinine 0.79 0.84 0.83 Estim Creat Clear Calc 127.0 119.4 120.9 Estimated GFR > 60 > 60 > 60 Vancomycin Trough 05/16/22 10:46 Creatinine Estim Creat Clear Calc Estimated GFR Vancomycin Trough 6.6 L Imaging Radiology Impressions: ITS Impressions Head CT 05/12/22 13:34 IMPRESSION: 1. No acute intracranial process seen. 2. Moderate-sized polyp or retention cyst right maxillary sinus. 3. There are multiple small subcutaneous lesions in the scalp, ? sebaceous cyst versus Warts. These have slightly increased in size since previous CT 03/17/2021 Medications Medications Current Medications Acetaminophen (Acetaminophen 325 Mg Tablet) 975 mg PO TID PRN PRN Reason: Headache/Pain Mild Scale (1-3) Last Admin: 05/15/22 20:26 Dose: 975 mg Al Hydroxide/Mg Hydroxide (Magnesium Hydrox/Alum Hydrox 30 Ml Oral.Susp) 30 ml PO Q6H PRN PRN Reason: Heartburn/Nausea Last Admin: 04/25/22 10:25 Dose: 30 ml Alprazolam (Alprazolam 0.5 Mg Tablet) 1 mg PO QID PRN PRN Reason: Anxiety Last Admin: 05/16/22 09:41 Dose: 1 mg Amphetamine/Dextroamphetamine (Amphetamine Mixed Salts 10 Mg Tablet) 10 mg PO 1400 LACEY Last Admin: 05/15/22 14:30 Dose: 10 mg Amphetamine/Dextroamphetamine (Dextroamphetamine/Amphetamine Xr 10 Mg Cap.Er.24h) 30 mg PO DAILY LACEY Last Admin: 05/16/22 09:41 Dose: 30 mg Benzocaine (Throat Lozenge, Medicated Lozenge) 1 lozenge MUCOUS MEM Q2H PRN PRN Reason: Sore Throat Last Admin: 04/03/22 10:20 Dose: 1 lozenge Bisacodyl (Bisacodyl 5 Mg Tablet.Dr) 10 mg PO DAILY PRN PRN Reason: Constipation Last Admin: 05/08/22 12:01 Dose: 10 mg Chlorpromazine HCl (Chlorpromazine Hcl 100 Mg Tablet) 100 mg PO DAILY PRN PRN Reason: intrusive thoughts Last Admin: 05/13/22 14:20 Dose: 100 mg Chlorpromazine HCl (Chlorpromazine Hcl 25 Mg Tablet) 150 mg PO BEDTIME LACEY Last Admin: 05/15/22 20:25 Dose: 150 mg Diphenhydramine HCl (Diphenhydramine Hcl 25 Mg Capsule) 50 mg PO BEDTIME PRN PRN Reason: Insomnia Last Admin: 05/14/22 02:58 Dose: 50 mg Docusate Sodium (Docusate Sodium 100 Mg Capsule) 100 mg PO BID [facility] Last Admin: 05/16/22 09:41 Dose: 100 mg Fluticasone Propionate (Fluticasone Propionate Nasal 16 Gm [place]) 1 spray NOSTRIL-B DAILY [facility] Last Admin: 05/16/22 09:40 Dose: 1 spray Guaifenesin/Dextromethorphan (Guaifenesin Dm 600/30 1 Tab Tab.Er.12h) 1 tab PO BID PRN PRN Reason: cough, congestion Last Admin: 04/13/22 09:11 Dose: 1 tab Hydroxyzine HCl (Hydroxyzine Hcl 25 Mg Tablet) 25 mg PO Q6H PRN PRN Reason: Anxiety Last Admin: 05/08/22 21:28 Dose: 25 mg Vancomycin HCl 1,000 mg/ (Sodium Chloride) 270 mls @ 270 mls/hr IV Q8H [facility] Lactulose (Lactulose 20 Gm/30 Ml Solution) 10 gm PO DAILY PRN PRN Reason: Constipation Last Admin: 05/01/22 10:00 Dose: 10 gm Ryan Carbonate (Ryan Carbonate Er 300 Mg Tablet.Er) 600 mg PO BID [facility] Last Admin: 05/16/22 09:41 Dose: 600 mg Loperamide HCl (Loperamide Hcl 2 Mg Capsule) 4 mg PO Q4H PRN PRN Reason: Diarrhea Last Admin: 04/06/22 16:14 Dose: 4 mg Magnesium Hydroxide (Milk Of Magnesia 30 Ml Oral.Susp) 30 ml PO DAILY PRN PRN Reason: Constipation Last Admin: 03/25/22 11:00 Dose: 30 ml Melatonin (Melatonin 3 Mg Tablet) 12 mg PO BEDTIME [facility] Last Admin: 05/15/22 20:25 Dose: 12 mg Multi-Ingred Medicated Throat [place] (Throat [place], Medicated 177 Ml Bottle) 1 spray MUCOUS MEM Q2H PRN PRN Reason: Sore Throat Last Admin: 05/10/22 09:28 Dose: 1 spray Nicotine (Nicotine 14 Mg Patch.Td24) 14 mg TRANSDERMA DAILY PRN PRN Reason: nicotine craving Nicotine Polacrilex (Nicotine Polacrilex 2 Mg Gum) 2 mg BUCCAL Q2H PRN PRN Reason: nicotine withdrawal Last Admin: 03/29/22 09:32 Dose: 2 mg Patient Own Medication ( Desvenlafaxine 100 Mg Er Tablet) 1 tab PO DAILY [facility] Last Admin: 05/16/22 09:40 Dose: 1 tab Pt Own (Super B (Complex)) 1 tab PO DAILY [facility] Last Admin: 05/16/22 09:41 Dose: 1 tab Pharmacy Consult (Consult Rx Vancomycin Dosing) 1 each MISCELLANE DAILY PRN PRN Reason: Consult order Polyethylene Glycol (Polyethylene Glycol 3350 17 Gm Powd.Pack) 17 gm PO DAILY PRN PRN Reason: constipation Last Admin: 05/08/22 12:01 Dose: 17 gm Prazosin HCl 10 mg/ Prazosin (HCl 4 mg) 14 mg PO BEDTIME LACEY Last Admin: 05/15/22 20:25 Dose: 14 mg Saliva Substitute (Dry Mouth [place] 60 Ml [place]) 1 spray MUCOUS MEM Q2H PRN PRN Reason: Dry Mouth Trazodone HCl (Trazodone Hcl 100 Mg Tablet) 300 mg PO BEDTIME [facility] Last Admin: 05/15/22 20:25 Dose: 300 mg Vitamin D (Cholecalciferol (Vitamin D3) 25 Mcg Tablet) 50 mcg PO DAILY [facility] Last Admin: 05/16/22 09:41 Dose: 50 mcg Ziprasidone (Ziprasidone 20 Mg Capsule) 20 mg PO BEDTIME LACEY Last Admin: 05/15/22 20:25 Dose: 20 mg Allergies Allergies Allergy/AdvReac Type Severity Reaction Status Date / Time Sulfa (Sulfonamide Allergy Unknown Hives Verified 05/06/22 09:25 Antibiotics) [SULFA (SULFONAMIDE ANTIBIOTICS)] sulfamethoxazole Allergy Unknown Hives Verified 05/06/22 09:25 [From BACTRIM] trimethoprim [From BACTRIM] Allergy Unknown Hives Verified 05/06/22 09:25 lurasidone [From Latuda] AdvReac Intermediate anger, rage Verified 05/12/22 12:20 oseltamivir [From Tamiflu] AdvReac Sensation Verified 09/29/21 11:20 of bugs crawling on skin. Assessment & Plan Assessment & Plan (1) PTSD (post-traumatic stress disorder): Status: Acute Code(s): F43.10 - Post-traumatic stress disorder, unspecified (2) MDD (major depressive disorder), recurrent severe, without psychosis: Status: Acute Code(s): F33.2 - Major depressive disorder, recurrent severe without psychotic features (3) Suicidal ideation: Status: Acute Code(s): R45.851 - Suicidal ideations (4) Cellulitis, abdominal wall: Status: Acute Code(s): L03.311 - Cellulitis of abdominal wall Plan 36 yo non binary, prefers they/them pronouns with SI. 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 Several serious precipitants-holidays, anniversary of the loss of a child they planned to co-parent and therapist moved from the area at the end of Feb 2022 however pt will be continuing via telehelath. Plan: Message left for Nathen [place]. Pt wanting to change Pristiq, possibly re-start Olanzapine. We would like his input if possible. Pristiq ordered from [employer] as it is not on formulary Collateral contact as needed Assist pt to re-establish safety. 03/24/22: Continue current plan. 03/25/22: Olanzapine prn 03/26/22: Lactulose for constipation ? Safety discussion with pt. Increase in anxiety after her ER experience. Working with team to manage her impulsivity. 03/27:? Continue current regimen and plans with increase of trazodone to 300 mg 03/28: Continue current plans and regimen. 03/29: Continue current regimen and plans.? A 3 day notice has been placed 03/30/22: On 03/31, Increase Adderall to 30 mg XR q a.m. 04/01/22: Increase Melatonin to 11 mg HS. 04/02/22: Continue current regime ? Mucinex DM prn 04/03/22: Azithromycin 500 mg today, 250 mg x 4 days thereafter 04/04/22: Continue current regime 04/05/22: IModium prn for diarrhea ? Monitor for increasing risk of self harm 04/06/22: Resolving physical sx of COVID ? Increasing emotional sx, feeling tired, worn, drained. 04/07/22: Discontinue Ibuprofen ? BMP, Li, TSH 04/08/22 ? Olanzapine 5 mg prn to alternate with 10 mg for SIBS, SI, impulsivity 04/08 continue tx. 04/09 continue tx. 04/10 continue tx. 04/11 continue tx. -monitor for sinus discomfort -check lithium level tomorrow morning -remain on one-to-one 04/12 pt would like to keep lithium level at 0.7, currently at 1.0, will decrease morning dose to 450mg po daily and keep 600mg po qhs. continue one to one. 04/13 continue tx. 04/14 continue tx, re check lithium level next . 04/15 ocontinue tx. 04/16 add benadryl 50mg po qhs one time but if helpful may want to schedule. 04/17 continue current treatment regimen with Benadryl q.h.s. ?Discussed case with nursing; met with patient; reviewed vitals and mildly tachycardic but otherwise WNL 04/18 Discussed case with nursing; met with patient; reviewed vitals and mildly hypertensive. Remain on one-to-one as patient reports active SI 04/21/22- Continue current plan ? Possible family meeting 04/23. 04/22/22- Family meeting 04/28 1pm ? Perphenazine 4 mg bid prn dissociative sx, anxiety to assist with grounding 04/24/22- Continue current regime 04/26/22-Continue current plan. Preparing for family meeting 04/28. ? Discontinue Perphenazine prn ? Latuda 20 mg hs. 04/27/22: Continue current plan. Preparing for family meeting 04/28. Encouraged Sandi to make a brief outline to refer to in case of distraction/anxiety during the meeting. 04/29/22: Discontinue Olanzapine ? Discontinue Latuda ? Chlorpromazaine 100 mg HS and daily prn 04/30/22: Increase Chlorpromazine to 200 mg HS and daily prn. 05/01: continue tx pln. 05/02: Continue current plan. 05/03/22: Decrease chlorpromazine to 150 mg HS and daily prn ? Will trial pt off one to one on 02-08 shift beginning on Tuesday evening. 05/06/22: Decrease one to one on 05/07/22 from 10am-3pm. 05/07/22: Decrease CPZ to 125 mg HS and prn ? On 05/08 increase Latuda to 40 mg 1900 ?05/08/2022:? Will lowered chlorpromazine p.r.n. dose from 125 mg to 100 mg 05/09/2022: No changes to current plan 05/10/22: Increase HS CPZ to 150 mg ? Increase Latuda to 60 mg 1900 ? Discontinue 1:1 05/11/22: Continue current plan. 05/12/22: Discontinue Latuda ? Add Chlorpromazine 100 mg a.m. 05/14/22: Discontinue a.m. Chlorpromazine. Continue 150 mg HS and 100 mg daily prn with plan to continue to decrease ? Geodon 20 mg hs ? Colace 100 mg bid 05/15 surgery following; treating abdominal wall Cellulitis (possible early abscess) with IV vanco; will assess if needs to be drained or if it drains on its own. Increased Tylenol to 1000 mg t.i.d. p.r.n. for pain; otherwise continue current treatment plan 05/16 continue current treatment plan Patient educated on: diagnosis and medical condition Informed Consent: understands Reason for contiued inpatient stay Substantial Risk for: rapid decompensation Time Spent With Patient Time: Total time managing care of this patient today ____ minutes.
[2022-05-16] MEDS: Acetaminophen 325 MG TABLET 975 MG PO (15:45)
[2022-05-16] MEDS: Amphetamine Mixed Salts 10 MG TABLET PO (15:46)
[2022-05-16] MEDS: vancomycin HCL 1,000 MG in 0.9 % Sodium Chloride 250 ML 270 MG IV (16:04)
[2022-05-16 18:00] VITALS: BP 130/58; PULSE 87; RESP 20; TEMP 36.2; O2SAT 97
[2022-05-16] MEDS: chlorproMAZINE HCl 25 MG TABLET 150 MG PO (22:05)
[2022-05-16] MEDS: Ziprasidone 20 MG CAPSULE PO (22:06)
[2022-05-16] MEDS: Melatonin 3 MG TABLET 12 MG PO (22:06)
[2022-05-16] MEDS: traZODone HCL 100 MG TABLET 300 MG PO (22:07)
[2022-05-16] MEDS: PRAZOSIN HCL 14 MG PO (22:07)
[2022-05-17] MEDS: vancomycin HCL 1,000 MG in 0.9 % Sodium Chloride 250 ML 270 MG IV ×3 (01:32→17:10)
[2022-05-17 08:03] VITALS: BP 100/61; PULSE 98; RESP 16; TEMP 36.1; O2SAT 98
[2022-05-17] MEDS: Dextroamphetamine/Amphetamine XR 10 MG CAP.ER.24H 30 MG PO (09:09)
[2022-05-17] MEDS: Lithium Carbonate ER 300 MG TABLET.ER 600 MG PO ×2 (09:09→22:06)
[2022-05-17] MEDS: Docusate Sodium 100 MG CAPSULE PO ×2 (09:10→22:06)
[2022-05-17] MEDS: Cholecalciferol (Vitamin D3) 25 MCG TABLET 50 MCG PO (09:10)
[2022-05-17 11:13] LABS: Creatinine Clr Calc Pharmacy 111.4; Estimated Glomerular Filt Rate > 60
--- NOTE | 2022-05-17 12:37 | P.PNGS_ITS ---
Subjective Subjective Date of Service: 05/17/22 Interval history: Seen and examined with RN. Thinks wounds are much better. Abdominal wound has opened and was draining a lot, has now ceased. Right groin redness/opening started over the weekend but they feel this has improved as well. Physical Exam Vital Signs: Vital Signs: Last Vital Signs Temp 97.0 F 05/17/22 08:03 Pulse 98 05/17/22 08:03 Resp 16 05/17/22 08:03 BP 100/61 05/17/22 08:03 Pulse Ox 98 05/17/22 08:03 O2 Del Method 05/17/22 08:03 BMI result Body Mass Index 40.3 Const: General: comfortable, no acute distress and alert Orientation/consciousness: patient oriented x3 Resp: Effort & Inspection: normal respiratory effort GI: Other: RLQ abd wound- no erythema, small 1 cm x 2 cm open area, very minimal induration , no drainage noted, no fluctuance, no necrotic tissue Inspection: No distended Skin: Other: warm and dry right groin with very small open wound, no surrounding erythema, very little induration, no drainage, no fluctuance Neuro: General: patient oriented x3 Extrem: Other: right groin Objective Data Active Medications Acetaminophen (Acetaminophen 325 Mg Tablet) 975 mg PO TID PRN PRN Reason: Headache/Pain Mild Scale (1-3) Last Admin: 05/16/22 15:45 Dose: 975 mg Documented By: AAKASH Al Hydroxide/Mg Hydroxide (Magnesium Hydrox/Alum Hydrox 30 Ml Oral.Susp) 30 ml PO Q6H PRN PRN Reason: Heartburn/Nausea Last Admin: 04/25/22 10:25 Dose: 30 ml Documented By: ERUM Alprazolam (Alprazolam 0.5 Mg Tablet) 1 mg PO QID PRN PRN Reason: Anxiety Last Admin: 05/16/22 15:45 Dose: 1 mg Documented By: AAKASH Amphetamine/Dextroamphetamine (Amphetamine Mixed Salts 10 Mg Tablet) 10 mg PO 1400 [facility] Last Admin: 05/16/22 15:46 Dose: 10 mg Documented By: AAKASH Amphetamine/Dextroamphetamine (Dextroamphetamine/Amphetamine Xr 10 Mg Cap.Er.24h) 30 mg PO DAILY [facility] Last Admin: 05/17/22 09:09 Dose: 30 mg Documented By: AAKASH Benzocaine (Throat Lozenge, Medicated Lozenge) 1 lozenge MUCOUS MEM Q2H PRN PRN Reason: Sore Throat Last Admin: 04/03/22 10:20 Dose: 1 lozenge Documented By: NICHOLE Bisacodyl (Bisacodyl 5 Mg Tablet.Dr) 10 mg PO DAILY PRN PRN Reason: Constipation Last Admin: 05/08/22 12:01 Dose: 10 mg Documented By: ERUM Chlorpromazine HCl (Chlorpromazine Hcl 100 Mg Tablet) 100 mg PO DAILY PRN PRN Reason: intrusive thoughts Last Admin: 05/13/22 14:20 Dose: 100 mg Documented By: ERUM Chlorpromazine HCl (Chlorpromazine Hcl 25 Mg Tablet) 150 mg PO BEDTIME LACEY Last Admin: 05/16/22 22:05 Dose: 150 mg Documented By: LYN Diphenhydramine HCl (Diphenhydramine Hcl 25 Mg Capsule) 50 mg PO BEDTIME PRN PRN Reason: Insomnia Last Admin: 05/14/22 02:58 Dose: 50 mg Documented By: ALEX Docusate Sodium (Docusate Sodium 100 Mg Capsule) 100 mg PO BID [facility] Last Admin: 05/17/22 09:10 Dose: 100 mg Documented By: AAKASH Doxycycline Monohydrate (Doxycycline Monohydrate 100 Mg Capsule) 100 mg PO Q12H [facility] Stop: 05/26/22 21:00 Fluticasone Propionate (Fluticasone Propionate Nasal 16 Gm [place]) 1 spray NOSTRIL-B DAILY [facility] Last Admin: 05/17/22 09:12 Dose: Not Given Documented By: AAKASH Non-Admin Reason: Patient Refused Guaifenesin/Dextromethorphan (Guaifenesin Dm 600/30 1 Tab Tab.Er.12h) 1 tab PO BID PRN PRN Reason: cough, congestion Last Admin: 04/13/22 09:11 Dose: 1 tab Documented By: AAKASH Hydroxyzine HCl (Hydroxyzine Hcl 25 Mg Tablet) 25 mg PO Q6H PRN PRN Reason: Anxiety Last Admin: 05/08/22 21:28 Dose: 25 mg Documented By: HO.RHEA Vancomycin HCl 1,000 mg/ (Sodium Chloride) 270 mls @ 270 mls/hr IV Q8H [facility] Stop: 05/21/22 09:00 Last Infusion: 05/17/22 11:53 Dose: 0 mls/hr Documented By: MURIEL Lactulose (Lactulose 20 Gm/30 Ml Solution) 10 gm PO DAILY PRN PRN Reason: Constipation Last Admin: 05/01/22 10:00 Dose: 10 gm Documented By: ERUM [place] Carbonate ([place] Carbonate Er 300 Mg Tablet.Er) 600 mg PO BID [facility] Last Admin: 05/17/22 09:09 Dose: 600 mg Documented By: AAKASH Loperamide HCl (Loperamide Hcl 2 Mg Capsule) 4 mg PO Q4H PRN PRN Reason: Diarrhea Last Admin: 04/06/22 16:14 Dose: 4 mg Documented By: JUANITO Magnesium Hydroxide (Milk Of Magnesia 30 Ml Oral.Susp) 30 ml PO DAILY PRN PRN Reason: Constipation Last Admin: 03/25/22 11:00 Dose: 30 ml Documented By: ERUM Melatonin (Melatonin 3 Mg Tablet) 12 mg PO BEDTIME [facility] Last Admin: 05/16/22 22:06 Dose: 12 mg Documented By: LYN Multi-Ingred Medicated Throat [place] (Throat [place], Medicated 177 Ml Bottle) 1 spray MUCOUS MEM Q2H PRN PRN Reason: Sore Throat Last Admin: 05/10/22 09:28 Dose: 1 spray Documented By: LAUREN Nicotine (Nicotine 14 Mg Patch.Td24) 14 mg TRANSDERMA DAILY PRN PRN Reason: nicotine craving Nicotine Polacrilex (Nicotine Polacrilex 2 Mg Gum) 2 mg BUCCAL Q2H PRN PRN Reason: nicotine withdrawal Last Admin: 03/29/22 09:32 Dose: 2 mg Documented By: AAKASH Patient Own Medication ( Desvenlafaxine 100 Mg Er Tablet) 1 tab PO DAILY [facility] Last Admin: 05/17/22 09:12 Dose: 1 tab Documented By: AAKASH Pt Own (Super B (Complex)) 1 tab PO DAILY [facility] Last Admin: 05/17/22 09:12 Dose: 1 tab Documented By: AAKASH Polyethylene Glycol (Polyethylene Glycol 3350 17 Gm Powd.Pack) 17 gm PO DAILY PRN PRN Reason: constipation Last Admin: 05/08/22 12:01 Dose: 17 gm Documented By: ERUM Prazosin HCl 10 mg/ Prazosin (HCl 4 mg) 14 mg PO BEDTIME [facility] Last Admin: 05/16/22 22:07 Dose: 14 mg Documented By: LYN Saliva Substitute (Dry Mouth [place] 60 Ml [place]) 1 spray MUCOUS MEM Q2H PRN PRN Reason: Dry Mouth Trazodone HCl (Trazodone Hcl 100 Mg Tablet) 300 mg PO BEDTIME [facility] Last Admin: 05/16/22 22:07 Dose: 300 mg Documented By: LYN Vitamin D (Cholecalciferol (Vitamin D3) 25 Mcg Tablet) 50 mcg PO DAILY [facility] Last Admin: 05/17/22 09:10 Dose: 50 mcg Documented By: AAKASH Ziprasidone (Ziprasidone 20 Mg Capsule) 20 mg PO BEDTIME [facility] Last Admin: 05/16/22 22:06 Dose: 20 mg Documented By: LYN Labs 05/05/22 08:29 05/17/22 10:47 Labs: Laboratory Results - last 24 hr 05/17/22 10:47 Estim Creat Clear Calc 111.4 Estimated GFR > 60 Procedures Date of Service Date of Service: 05/17/22 Progress Note: A&P Assessment and plan (1) Cellulitis, abdominal wall: Status: Acute Plan 36 year old nonbinary admitted with depression/SI to M5 who developed abdominal wall cellulitis. Abdominal/right groin cellulitis has resolved- abd has small, clean open wound. Can apply silver alginate to open area on abdomen with dressing changes daily. On day 4 IV vanco. Plan for 1 more day of IV vanco and then can transition to doxycycline 100mg PO BID x 5 days. Time Spent With Patient Time: Total time managing care of this patient today ____ minutes. Quality Stroke Does the patient have a stroke diagnosis?: No VTE Prior VTE?: No VTE Risk Level:: Medical - low VTE Device Contraindication: Treatment Not Indicated VTE Drug Contraindication: Treatment Not Indicated
[2022-05-17] MEDS: Amphetamine Mixed Salts 10 MG TABLET PO (13:25)
[2022-05-17] MEDS: ALPRAZolam 0.5 MG TABLET 1 MG PO ×2 (13:33→22:04)
--- NOTE | 2022-05-17 13:43 | PC.NURSE ---
dressing change performed at 13:16. abdominal pad folded in thirds with minimal tape surrounding perimeter. No redness or swelling, slight purulent drainage noted. pt tolerated well. Reports pain 3/10.
[2022-05-17 15:16] LABS: Vancomycin Random 11.3 mcg/mL (15-20)
--- NOTE | 2022-05-17 16:20 | P.PNPSI_ITS ---
Subjective Subjective Date of Service: 05/17/22 Reason For Visit: Depression SI PTSD Subjective Notes: Conditional Voluntary Healthcare Proxy: No Guardianship: No Medical Problems Affecting Mental Status: No Interim History: Abdominal cellulitis with IV vanco started over the weekend. One to one continues. Expressed concern about her health, and feeling very upset about being ill. Prepared to increase Geodon, will continue taper of Chlorpromazine. Participating in milieu. Medication Compliance: Yes Side effects from medications: No Attending Groups: Yes Review of Systems Acute medical concerns: Yes Medical Review of Systems: changed Mental Status Exam Mental Status Exam Patient Appearance: Fatigued Patient Orientation: Person, Place, Time and Situation Level of Consciousness: Alert Patient Behavior: Appropriate, Talkative, Cooperative and Good Eye Contact Mood Description: Depressed Patient Cognition Impaired: No Ability to Follow Directions: Good Speech Pattern: Spontaneous Speech Memory Description: Intact Hallucinations: None Delusions: Not Present Perceptual Disturbances: Depersonalization and Derealization Thought Process: Distracted Thought Content: positive for Circumstantial and positive for Suicidal Ideation Depressive Symptoms: Increased Anxiety, Increased Irritability and Thoughts of /Suicide Judgement: Fair Diagnostics Vital Signs (24Hr): Vital Signs - 24 hr 05/16/22 18:00 05/17/22 08:03 Temperature 97.2 F 97.0 F Pulse Rate 87 98 Respiratory Rate 20 16 Blood Pressure 130/58 L 100/61 Pulse Oximetry 97 98 Oxygen Delivery Method Room Air Room Air BMI result Body Mass Index 40.3 Labs 05/05/22 08:29 05/17/22 10:47 Labs: Laboratory Results - last 48 hr 05/16/22 05/16/22 05/17/22 06:49 10:46 10:47 Creatinine 0.83 0.90 Estim Creat Clear Calc 120.9 111.4 Estimated GFR > 60 > 60 Vancomycin Trough 6.6 L Random Vancomycin 05/17/22 14:52 Creatinine Estim Creat Clear Calc Estimated GFR Vancomycin Trough Random Vancomycin 11.3 L Imaging Radiology Impressions: ITS Impressions Head CT 05/12/22 13:34 IMPRESSION: 1. No acute intracranial process seen. 2. Moderate-sized polyp or retention cyst right maxillary sinus. 3. There are multiple small subcutaneous lesions in the scalp, ? sebaceous cyst versus Warts. These have slightly increased in size since previous CT 03/17/2021 Medications Medications Current Medications Acetaminophen (Acetaminophen 325 Mg Tablet) 975 mg PO TID PRN PRN Reason: Headache/Pain Mild Scale (1-3) Last Admin: 05/16/22 15:45 Dose: 975 mg Al Hydroxide/Mg Hydroxide (Magnesium Hydrox/Alum Hydrox 30 Ml Oral.Susp) 30 ml PO Q6H PRN PRN Reason: Heartburn/Nausea Last Admin: 04/25/22 10:25 Dose: 30 ml Alprazolam (Alprazolam 0.5 Mg Tablet) 1 mg PO QID PRN PRN Reason: Anxiety Last Admin: 05/17/22 13:33 Dose: 1 mg Amphetamine/Dextroamphetamine (Amphetamine Mixed Salts 10 Mg Tablet) 10 mg PO 1400 [facility] Last Admin: 05/17/22 13:25 Dose: 10 mg Amphetamine/Dextroamphetamine (Dextroamphetamine/Amphetamine Xr 10 Mg Cap.Er.24h) 30 mg PO DAILY [facility] Last Admin: 05/17/22 09:09 Dose: 30 mg Benzocaine (Throat Lozenge, Medicated Lozenge) 1 lozenge MUCOUS MEM Q2H PRN PRN Reason: Sore Throat Last Admin: 04/03/22 10:20 Dose: 1 lozenge Bisacodyl (Bisacodyl 5 Mg Tablet.Dr) 10 mg PO DAILY PRN PRN Reason: Constipation Last Admin: 05/08/22 12:01 Dose: 10 mg Chlorpromazine HCl (Chlorpromazine Hcl 25 Mg Tablet) 150 mg PO BEDTIME [facility] Last Admin: 05/16/22 22:05 Dose: 150 mg Diphenhydramine HCl (Diphenhydramine Hcl 25 Mg Capsule) 50 mg PO BEDTIME PRN PRN Reason: Insomnia Last Admin: 05/14/22 02:58 Dose: 50 mg Docusate Sodium (Docusate Sodium 100 Mg Capsule) 100 mg PO BID [facility] Last Admin: 05/17/22 09:10 Dose: 100 mg Doxycycline Monohydrate (Doxycycline Monohydrate 100 Mg Capsule) 100 mg PO Q12H [facility] Stop: 05/23/22 21:00 Fluticasone Propionate (Fluticasone Propionate Nasal 16 Gm [place]) 1 spray NOSTRIL-B DAILY [facility] Last Admin: 05/17/22 09:12 Dose: Not Given Guaifenesin/Dextromethorphan (Guaifenesin Dm 600/30 1 Tab Tab.Er.12h) 1 tab PO BID PRN PRN Reason: cough, congestion Last Admin: 04/13/22 09:11 Dose: 1 tab Hydroxyzine HCl (Hydroxyzine Hcl 25 Mg Tablet) 25 mg PO Q6H PRN PRN Reason: Anxiety Last Admin: 05/08/22 21:28 Dose: 25 mg Vancomycin HCl 1,000 mg/ (Sodium Chloride) 270 mls @ 270 mls/hr IV Q8H [facility] Stop: 05/18/22 21:00 Last Infusion: 05/17/22 11:53 Dose: Infused Lactulose (Lactulose 20 Gm/30 Ml Solution) 10 gm PO DAILY PRN PRN Reason: Constipation Last Admin: 05/01/22 10:00 Dose: 10 gm [place] Carbonate ([place] Carbonate Er 300 Mg Tablet.Er) 600 mg PO BID [facility] Last Admin: 05/17/22 09:09 Dose: 600 mg Loperamide HCl (Loperamide Hcl 2 Mg Capsule) 4 mg PO Q4H PRN PRN Reason: Diarrhea Last Admin: 04/06/22 16:14 Dose: 4 mg Magnesium Hydroxide (Milk Of Magnesia 30 Ml Oral.Susp) 30 ml PO DAILY PRN PRN Reason: Constipation Last Admin: 03/25/22 11:00 Dose: 30 ml Melatonin (Melatonin 3 Mg Tablet) 12 mg PO BEDTIME [facility] Last Admin: 05/16/22 22:06 Dose: 12 mg Multi-Ingred Medicated Throat [place] (Throat [place], Medicated 177 Ml Bottle) 1 spray MUCOUS MEM Q2H PRN PRN Reason: Sore Throat Last Admin: 05/10/22 09:28 Dose: 1 spray Nicotine (Nicotine 14 Mg Patch.Td24) 14 mg TRANSDERMA DAILY PRN PRN Reason: nicotine craving Nicotine Polacrilex (Nicotine Polacrilex 2 Mg Gum) 2 mg BUCCAL Q2H PRN PRN Reason: nicotine withdrawal Last Admin: 03/29/22 09:32 Dose: 2 mg Patient Own Medication ( Desvenlafaxine 100 Mg Er Tablet) 1 tab PO DAILY [facility] Last Admin: 05/17/22 09:12 Dose: 1 tab Pt Own (Super B (Complex)) 1 tab PO DAILY [facility] Last Admin: 05/17/22 09:12 Dose: 1 tab Polyethylene Glycol (Polyethylene Glycol 3350 17 Gm Powd.Pack) 17 gm PO DAILY PRN PRN Reason: constipation Last Admin: 05/08/22 12:01 Dose: 17 gm Prazosin HCl 10 mg/ Prazosin (HCl 4 mg) 14 mg PO BEDTIME [facility] Last Admin: 05/16/22 22:07 Dose: 14 mg Saliva Substitute (Dry Mouth [place] 60 Ml [place]) 1 spray MUCOUS MEM Q2H PRN PRN Reason: Dry Mouth Trazodone HCl (Trazodone Hcl 100 Mg Tablet) 300 mg PO BEDTIME [facility] Last Admin: 05/16/22 22:07 Dose: 300 mg Vitamin D (Cholecalciferol (Vitamin D3) 25 Mcg Tablet) 50 mcg PO DAILY [facility] Last Admin: 05/17/22 09:10 Dose: 50 mcg Ziprasidone (Ziprasidone 40 Mg Capsule) 40 mg PO BEDTIME [facility] Allergies Allergies Allergy/AdvReac Type Severity Reaction Status Date / Time Sulfa (Sulfonamide Allergy Unknown Hives Verified 05/06/22 09:25 Antibiotics) [SULFA (SULFONAMIDE ANTIBIOTICS)] sulfamethoxazole Allergy Unknown Hives Verified 05/06/22 09:25 [From BACTRIM] trimethoprim [From BACTRIM] Allergy Unknown Hives Verified 05/06/22 09:25 lurasidone [From Latuda] AdvReac Intermediate anger, rage Verified 05/12/22 12:20 oseltamivir [From Tamiflu] AdvReac Sensation Verified 09/29/21 11:20 of bugs crawling on skin. Assessment & Plan Assessment & Plan (1) Cellulitis, abdominal wall: Status: Acute Code(s): L03.311 - Cellulitis of abdominal wall Plan 36 year old nonbinary admitted with depression/SI to who developed abdominal wall cellulitis. Abdominal/right groin cellulitis has resolved- abd has small, clean open wound. Can apply silver alginate to open area on abdomen with dressing changes daily. On day 4 IV vanco. Plan for 1 more day of IV vanco and then can transition to doxycycline 100mg PO BID x 5 days. 05/17/22- One to one, IV Vanco, will end 05/19. Pt wanting to begin when IV ends to return to fifteen minute checks and prepare for discharge next week. Continue Geodon titration, Chlorpromazine tapering. Patient educated on: therapeutic strategies and medical condition Informed Consent: understands Reason for contiued inpatient stay Substantial Risk for: harm to self Time Spent With Patient Time: Total time managing care of this patient today 25 minutes.
[2022-05-17 21:59] VITALS: BP 124/75; PULSE 72; RESP 16; TEMP 36.9
[2022-05-17] MEDS: PRAZOSIN HCL 14 MG PO (22:05)
[2022-05-17] MEDS: traZODone HCL 100 MG TABLET 300 MG PO (22:05)
[2022-05-17] MEDS: Acetaminophen 325 MG TABLET 975 MG PO (22:05)
[2022-05-17] MEDS: Ziprasidone 40 MG CAPSULE PO (22:05)
[2022-05-17] MEDS: chlorproMAZINE HCl 25 MG TABLET 150 MG PO (22:06)
[2022-05-17] MEDS: Melatonin 3 MG TABLET 12 MG PO (22:06)
[2022-05-18] MEDS: vancomycin HCL 1,000 MG in 0.9 % Sodium Chloride 250 ML 270 MG IV ×3 (01:35→17:38)
[2022-05-18 06:00] VITALS: BP 121/72; PULSE 81; RESP 16
[2022-05-18] MEDS: Lithium Carbonate ER 300 MG TABLET.ER 600 MG PO ×2 (08:58→22:03)
[2022-05-18] MEDS: Dextroamphetamine/Amphetamine XR 10 MG CAP.ER.24H 30 MG PO (08:58)
[2022-05-18] MEDS: ALPRAZolam 0.5 MG TABLET 1 MG PO ×2 (08:58→22:04)
[2022-05-18] MEDS: Docusate Sodium 100 MG CAPSULE PO ×2 (08:59→22:05)
[2022-05-18] MEDS: Cholecalciferol (Vitamin D3) 25 MCG TABLET 50 MCG PO (08:59)
[2022-05-18 09:35] LABS: Creatinine Clr Calc Pharmacy 122.3; Estimated Glomerular Filt Rate > 60
[2022-05-18] MEDS: Amphetamine Mixed Salts 10 MG TABLET PO (13:05)
--- NOTE | 2022-05-18 13:25 | PC.NURSE ---
Dressing changed completed at 1315. Wound noted to have beefy red granulation tissue. Scant amount of serosanginous drainage noted. No foul odor noted. Pt tolerated dressing change without complaints.
[2022-05-18] MEDS: Acetaminophen 325 MG TABLET 975 MG PO (14:49)
[2022-05-18 15:57] LABS: Vancomycin Trough 13.3 mcg/mL (10.0-20.0)
--- NOTE | 2022-05-18 16:38 | P.PNPSI_ITS ---
Subjective Subjective Date of Service: 05/18/22 Reason For Visit: Depression SI PTSD Subjective Notes: Conditional Voluntary Healthcare Proxy: No Guardianship: No Medical Problems Affecting Mental Status: No Interim History: Passive SI, anxiety, active SI is less frequent. Difficulty sleeping with IV. Setting boundaries with peers, planning discharge. Reflects on the difficulty of being medically ill while struggling with safety concerns. Medication Compliance: Yes Side effects from medications: No Attending Groups: No Review of Systems Acute medical concerns: No Medical Review of Systems: unchanged Mental Status Exam Mental Status Exam Patient Appearance: Fatigued Patient Orientation: Person, Place, Time and Situation Level of Consciousness: Alert Patient Behavior: Appropriate, Talkative, Cooperative and Good Eye Contact Mood Description: Depressed Patient Cognition Impaired: No Ability to Follow Directions: Good Speech Pattern: Spontaneous Speech Memory Description: Intact Hallucinations: None Delusions: Not Present Perceptual Disturbances: Depersonalization and Derealization Thought Process: Distracted Thought Content: positive for Circumstantial and positive for Suicidal Ideation Depressive Symptoms: Increased Anxiety, Increased Irritability and Thoughts of /Suicide Judgement: Fair Diagnostics Vital Signs (24Hr): Vital Signs - 24 hr 05/17/22 21:59 05/18/22 06:00 Temperature 98.4 F Pulse Rate 72 81 Respiratory Rate 16 16 Blood Pressure 124/75 121/72 BMI result Body Mass Index 40.3 Labs 05/05/22 08:29 05/18/22 08:33 Labs: Laboratory Results - last 48 hr 05/17/22 05/17/22 05/18/22 10:47 14:52 08:33 Creatinine 0.90 0.82 Estim Creat Clear Calc 111.4 122.3 Estimated GFR > 60 > 60 Vancomycin Trough Random Vancomycin 11.3 L 05/18/22 15:15 Creatinine Estim Creat Clear Calc Estimated GFR Vancomycin Trough 13.3 Random Vancomycin Imaging Radiology Impressions: ITS Impressions Head CT 05/12/22 13:34 IMPRESSION: 1. No acute intracranial process seen. 2. Moderate-sized polyp or retention cyst right maxillary sinus. 3. There are multiple small subcutaneous lesions in the scalp, ? sebaceous cyst versus Warts. These have slightly increased in size since previous CT 03/17/2021 Medications Medications Current Medications Acetaminophen (Acetaminophen 325 Mg Tablet) 975 mg PO TID PRN PRN Reason: Headache/Pain Mild Scale (1-3) Last Admin: 05/18/22 14:49 Dose: 975 mg Al Hydroxide/Mg Hydroxide (Magnesium Hydrox/Alum Hydrox 30 Ml Oral.Susp) 30 ml PO Q6H PRN PRN Reason: Heartburn/Nausea Last Admin: 04/25/22 10:25 Dose: 30 ml Alprazolam (Alprazolam 0.5 Mg Tablet) 1 mg PO QID PRN PRN Reason: Anxiety Last Admin: 05/18/22 08:58 Dose: 1 mg Amphetamine/Dextroamphetamine (Amphetamine Mixed Salts 10 Mg Tablet) 10 mg PO 1400 [facility] Last Admin: 05/18/22 13:05 Dose: 10 mg Amphetamine/Dextroamphetamine (Dextroamphetamine/Amphetamine Xr 10 Mg Cap.Er.24h) 30 mg PO DAILY [facility] Last Admin: 05/18/22 08:58 Dose: 30 mg Benzocaine (Throat Lozenge, Medicated Lozenge) 1 lozenge MUCOUS MEM Q2H PRN PRN Reason: Sore Throat Last Admin: 04/03/22 10:20 Dose: 1 lozenge Bisacodyl (Bisacodyl 5 Mg Tablet.Dr) 10 mg PO DAILY PRN PRN Reason: Constipation Last Admin: 05/08/22 12:01 Dose: 10 mg Chlorpromazine HCl (Chlorpromazine Hcl 25 Mg Tablet) 150 mg PO BEDTIME [facility] Last Admin: 05/17/22 22:06 Dose: 150 mg Diphenhydramine HCl (Diphenhydramine Hcl 25 Mg Capsule) 50 mg PO BEDTIME PRN PRN Reason: Insomnia Last Admin: 05/14/22 02:58 Dose: 50 mg Docusate Sodium (Docusate Sodium 100 Mg Capsule) 100 mg PO BID [facility] Last Admin: 05/18/22 08:59 Dose: 100 mg Doxycycline Monohydrate (Doxycycline Monohydrate 100 Mg Capsule) 100 mg PO Q12H [facility] Stop: 05/23/22 21:00 Fluticasone Propionate (Fluticasone Propionate Nasal 16 Gm [place]) 1 spray NOSTRIL-B DAILY [facility] Last Admin: 05/18/22 09:04 Dose: Not Given Guaifenesin/Dextromethorphan (Guaifenesin Dm 600/30 1 Tab Tab.Er.12h) 1 tab PO BID PRN PRN Reason: cough, congestion Last Admin: 04/13/22 09:11 Dose: 1 tab Hydroxyzine HCl (Hydroxyzine Hcl 25 Mg Tablet) 25 mg PO Q6H PRN PRN Reason: Anxiety Last Admin: 05/08/22 21:28 Dose: 25 mg Vancomycin HCl 1,000 mg/ (Sodium Chloride) 270 mls @ 270 mls/hr IV Q8H [facility] Stop: 05/18/22 21:00 Last Infusion: 05/18/22 12:36 Dose: Infused Lactulose (Lactulose 20 Gm/30 Ml Solution) 10 gm PO DAILY PRN PRN Reason: Constipation Last Admin: 05/01/22 10:00 Dose: 10 gm [place] Carbonate ([place] Carbonate Er 300 Mg Tablet.Er) 600 mg PO BID [facility] Last Admin: 05/18/22 08:58 Dose: 600 mg Loperamide HCl (Loperamide Hcl 2 Mg Capsule) 4 mg PO Q4H PRN PRN Reason: Diarrhea Last Admin: 04/06/22 16:14 Dose: 4 mg Magnesium Hydroxide (Milk Of Magnesia 30 Ml Oral.Susp) 30 ml PO DAILY PRN PRN Reason: Constipation Last Admin: 03/25/22 11:00 Dose: 30 ml Melatonin (Melatonin 3 Mg Tablet) 12 mg PO BEDTIME [facility] Last Admin: 05/17/22 22:06 Dose: 12 mg Multi-Ingred Medicated Throat [place] (Throat [place], Medicated 177 Ml Bottle) 1 spray MUCOUS MEM Q2H PRN PRN Reason: Sore Throat Last Admin: 05/10/22 09:28 Dose: 1 spray Nicotine (Nicotine 14 Mg Patch.Td24) 14 mg TRANSDERMA DAILY PRN PRN Reason: nicotine craving Nicotine Polacrilex (Nicotine Polacrilex 2 Mg Gum) 2 mg BUCCAL Q2H PRN PRN Reason: nicotine withdrawal Last Admin: 03/29/22 09:32 Dose: 2 mg Patient Own Medication ( Desvenlafaxine 100 Mg Er Tablet) 1 tab PO DAILY [facility] Last Admin: 05/18/22 09:01 Dose: 1 tab Pt Own (Super B (Complex)) 1 tab PO DAILY [facility] Last Admin: 05/18/22 09:01 Dose: 1 tab Polyethylene Glycol (Polyethylene Glycol 3350 17 Gm Powd.Pack) 17 gm PO DAILY PRN PRN Reason: constipation Last Admin: 05/08/22 12:01 Dose: 17 gm Prazosin HCl 10 mg/ Prazosin (HCl 4 mg) 14 mg PO BEDTIME [facility] Last Admin: 05/17/22 22:05 Dose: 14 mg Saliva Substitute (Dry Mouth [place] 60 Ml [place]) 1 spray MUCOUS MEM Q2H PRN PRN Reason: Dry Mouth Trazodone HCl (Trazodone Hcl 100 Mg Tablet) 300 mg PO BEDTIME [facility] Last Admin: 05/17/22 22:05 Dose: 300 mg Vitamin D (Cholecalciferol (Vitamin D3) 25 Mcg Tablet) 50 mcg PO DAILY [facility] Last Admin: 05/18/22 08:59 Dose: 50 mcg Ziprasidone (Ziprasidone 40 Mg Capsule) 40 mg PO BEDTIME [facility] Last Admin: 05/17/22 22:05 Dose: 40 mg Allergies Allergies Allergy/AdvReac Type Severity Reaction Status Date / Time Sulfa (Sulfonamide Allergy Unknown Hives Verified 05/06/22 09:25 Antibiotics) [SULFA (SULFONAMIDE ANTIBIOTICS)] sulfamethoxazole Allergy Unknown Hives Verified 05/06/22 09:25 [From BACTRIM] trimethoprim [From BACTRIM] Allergy Unknown Hives Verified 05/06/22 09:25 lurasidone [From Latuda] AdvReac Intermediate anger, rage Verified 05/12/22 12:20 oseltamivir [From Tamiflu] AdvReac Sensation Verified 09/29/21 11:20 of bugs crawling on skin. Assessment & Plan Assessment & Plan (1) Cellulitis, abdominal wall: Status: Acute Code(s): L03.311 - Cellulitis of abdominal wall Plan 36 year old nonbinary admitted with depression/SI to [facility] who developed abdominal wall cellulitis. Abdominal/right groin cellulitis has resolved- abd has small, clean open wound. Can apply silver alginate to open area on abdomen with dressing changes daily. On day 4 IV vanco. Plan for 1 more day of IV vanco and then can transition to doxycycline 100mg PO BID x 5 days. 05/18/22- Vanco will end tonight. Doxycycline to begin 05/19. Will discontinue one to one on -05/20. Pt preparing for discharge early next week. SI present, passive more than active at this time. Patient educated on: therapeutic strategies and medical condition Informed Consent: understands and further education needed Reason for contiued inpatient stay Substantial Risk for: harm to self and rapid decompensation Time Spent With Patient Time: Total time managing care of this patient today 15 minutes.
[2022-05-18 20:55] VITALS: BP 149/67; PULSE 88; TEMP 35.9
[2022-05-18] MEDS: Melatonin 3 MG TABLET 12 MG PO (22:04)
[2022-05-18] MEDS: traZODone HCL 100 MG TABLET 300 MG PO (22:05)
[2022-05-18] MEDS: Ziprasidone 40 MG CAPSULE PO (22:06)
[2022-05-18] MEDS: chlorproMAZINE HCl 25 MG TABLET 150 MG PO (22:06)
[2022-05-18] MEDS: PRAZOSIN HCL 14 MG PO (22:07)
[2022-05-19 09:06] LABS: Creatinine Clr Calc Pharmacy 119.4; Estimated Glomerular Filt Rate > 60
[2022-05-19] MEDS: Dextroamphetamine/Amphetamine XR 10 MG CAP.ER.24H 30 MG PO (09:15)
[2022-05-19] MEDS: Cholecalciferol (Vitamin D3) 25 MCG TABLET 50 MCG PO (09:15)
[2022-05-19] MEDS: Fluticasone Propionate Nasal 16 GM SPRAY 1 SPRAY NOSTRIL-B (09:15)
[2022-05-19] MEDS: ALPRAZolam 0.5 MG TABLET 1 MG PO ×2 (09:16→13:45)
[2022-05-19] MEDS: Lithium Carbonate ER 300 MG TABLET.ER 600 MG PO ×2 (09:16→19:41)
[2022-05-19] MEDS: Docusate Sodium 100 MG CAPSULE PO ×2 (09:16→19:41)
[2022-05-19] MEDS: Doxycycline Monohydrate 100 MG CAPSULE PO ×2 (09:16→19:41)
[2022-05-19 09:30] VITALS: BP 127/71; PULSE 95; RESP 16; TEMP 36.3; O2SAT 96
[2022-05-19] MEDS: Acetaminophen 325 MG TABLET 975 MG PO ×2 (12:28→20:39)
[2022-05-19] MEDS: Amphetamine Mixed Salts 10 MG TABLET PO (13:45)
[2022-05-19] MEDS: hydrOXYzine HCL 25 MG TABLET PO (14:14)
--- NOTE | 2022-05-19 17:37 | HO.PSYCHPN ---
Subjective Subjective Date of Service: 05/19/22 Reason For Visit: Depression SI PTSD Subjective Notes: Conditional Voluntary Healthcare Proxy: No Guardianship: No Medical Problems Affecting Mental Status: No Interim History: Reports diarrhea x 1 on 05/18. Discussing discharge-would like VNA for wound care if possible-anxious about having to manage draining wound without assist. Will decrease Chlorpromazine to 100 mg HS and increase Geodon to 60 mg hs. Discussed the possibility of needing to find a new therapist and resources to utilize to interview potential therapists. Diagnostics Vital Signs (24Hr): Vital Signs - 24 hr 05/18/22 20:55 05/19/22 09:30 Temperature 96.7 F L 97.4 F Pulse Rate 88 95 Respiratory Rate 16 Blood Pressure 149/67 H 127/71 Pulse Oximetry 96 Oxygen Delivery Method Room Air BMI result Body Mass Index 40.3 Labs 05/05/22 08:29 05/19/22 08:25 Labs: Laboratory Results - last 48 hr 05/18/22 05/18/22 05/19/22 08:33 15:15 08:25 Creatinine 0.82 0.84 Estim Creat Clear Calc 122.3 119.4 Estimated GFR > 60 > 60 Vancomycin Trough 13.3 Imaging Radiology Impressions: ITS Impressions Head CT 05/12/22 13:34 IMPRESSION: 1. No acute intracranial process seen. 2. Moderate-sized polyp or retention cyst right maxillary sinus. 3. There are multiple small subcutaneous lesions in the scalp, ? sebaceous cyst versus Warts. These have slightly increased in size since previous CT 03/17/2021 Medications Medications Current Medications Acetaminophen (Acetaminophen 325 Mg Tablet) 975 mg PO TID PRN PRN Reason: Headache/Pain Mild Scale (1-3) Last Admin: 05/19/22 12:28 Dose: 975 mg Al Hydroxide/Mg Hydroxide (Magnesium Hydrox/Alum Hydrox 30 Ml Oral.Susp) 30 ml PO Q6H PRN PRN Reason: Heartburn/Nausea Last Admin: 04/25/22 10:25 Dose: 30 ml Alprazolam (Alprazolam 0.5 Mg Tablet) 1 mg PO QID PRN PRN Reason: Anxiety Last Admin: 05/19/22 13:45 Dose: 1 mg Amphetamine/Dextroamphetamine (Amphetamine Mixed Salts 10 Mg Tablet) 10 mg PO 1400 [facility] Last Admin: 05/19/22 13:45 Dose: 10 mg Amphetamine/Dextroamphetamine (Dextroamphetamine/Amphetamine Xr 10 Mg Cap.Er.24h) 30 mg PO DAILY [facility] Last Admin: 05/19/22 09:15 Dose: 30 mg Benzocaine (Throat Lozenge, Medicated Lozenge) 1 lozenge MUCOUS MEM Q2H PRN PRN Reason: Sore Throat Last Admin: 04/03/22 10:20 Dose: 1 lozenge Bisacodyl (Bisacodyl 5 Mg Tablet.Dr) 10 mg PO DAILY PRN PRN Reason: Constipation Last Admin: 05/08/22 12:01 Dose: 10 mg Chlorpromazine HCl (Chlorpromazine Hcl 100 Mg Tablet) 100 mg PO BEDTIME [facility] Diphenhydramine HCl (Diphenhydramine Hcl 25 Mg Capsule) 50 mg PO BEDTIME PRN PRN Reason: Insomnia Last Admin: 05/14/22 02:58 Dose: 50 mg Docusate Sodium (Docusate Sodium 100 Mg Capsule) 100 mg PO BID [facility] Last Admin: 05/19/22 09:16 Dose: 100 mg Doxycycline Monohydrate (Doxycycline Monohydrate 100 Mg Capsule) 100 mg PO Q12H [facility] Stop: 05/23/22 21:00 Last Admin: 05/19/22 09:16 Dose: 100 mg Fluticasone Propionate (Fluticasone Propionate Nasal 16 Gm [place]) 1 spray NOSTRIL-B DAILY [facility] Last Admin: 05/19/22 09:15 Dose: 1 spray Guaifenesin/Dextromethorphan (Guaifenesin Dm 600/30 1 Tab Tab.Er.12h) 1 tab PO BID PRN PRN Reason: cough, congestion Last Admin: 04/13/22 09:11 Dose: 1 tab Hydroxyzine HCl (Hydroxyzine Hcl 25 Mg Tablet) 25 mg PO Q6H PRN PRN Reason: Anxiety Last Admin: 05/19/22 14:14 Dose: 25 mg Lactulose (Lactulose 20 Gm/30 Ml Solution) 10 gm PO DAILY PRN PRN Reason: Constipation Last Admin: 05/01/22 10:00 Dose: 10 gm [place] Carbonate ([place] Carbonate Er 300 Mg Tablet.Er) 600 mg PO BID [facility] Last Admin: 05/19/22 09:16 Dose: 600 mg Loperamide HCl (Loperamide Hcl 2 Mg Capsule) 4 mg PO Q4H PRN PRN Reason: Diarrhea Last Admin: 04/06/22 16:14 Dose: 4 mg Magnesium Hydroxide (Milk Of Magnesia 30 Ml Oral.Susp) 30 ml PO DAILY PRN PRN Reason: Constipation Last Admin: 03/25/22 11:00 Dose: 30 ml Melatonin (Melatonin 3 Mg Tablet) 12 mg PO BEDTIME [facility] Last Admin: 05/18/22 22:04 Dose: 12 mg Multi-Ingred Medicated Throat [place] (Throat [place], Medicated 177 Ml Bottle) 1 spray MUCOUS MEM Q2H PRN PRN Reason: Sore Throat Last Admin: 05/10/22 09:28 Dose: 1 spray Nicotine (Nicotine 14 Mg Patch.Td24) 14 mg TRANSDERMA DAILY PRN PRN Reason: nicotine craving Nicotine Polacrilex (Nicotine Polacrilex 2 Mg Gum) 2 mg BUCCAL Q2H PRN PRN Reason: nicotine withdrawal Last Admin: 03/29/22 09:32 Dose: 2 mg Patient Own Medication ( Desvenlafaxine 100 Mg Er Tablet) 1 tab PO DAILY [facility] Last Admin: 05/19/22 09:15 Dose: 1 tab Pt Own (Super B (Complex)) 1 tab PO DAILY [facility] Last Admin: 05/19/22 09:15 Dose: 1 tab Polyethylene Glycol (Polyethylene Glycol 3350 17 Gm Powd.Pack) 17 gm PO DAILY PRN PRN Reason: constipation Last Admin: 05/08/22 12:01 Dose: 17 gm Prazosin HCl 10 mg/ Prazosin (HCl 4 mg) 14 mg PO BEDTIME [facility] Last Admin: 05/18/22 22:07 Dose: 14 mg Saliva Substitute (Dry Mouth [place] 60 Ml [place]) 1 spray MUCOUS MEM Q2H PRN PRN Reason: Dry Mouth Trazodone HCl (Trazodone Hcl 100 Mg Tablet) 300 mg PO BEDTIME [facility] Last Admin: 05/18/22 22:05 Dose: 300 mg Vitamin D (Cholecalciferol (Vitamin D3) 25 Mcg Tablet) 50 mcg PO DAILY [facility] Last Admin: 05/19/22 09:15 Dose: 50 mcg Ziprasidone (Ziprasidone 60 Mg Capsule) 60 mg PO BEDTIME [facility] Allergies Allergies Allergy/AdvReac Type Severity Reaction Status Date / Time Sulfa (Sulfonamide Allergy Unknown Hives Verified 05/06/22 09:25 Antibiotics) [SULFA (SULFONAMIDE ANTIBIOTICS)] sulfamethoxazole Allergy Unknown Hives Verified 05/06/22 09:25 [From BACTRIM] trimethoprim [From BACTRIM] Allergy Unknown Hives Verified 05/06/22 09:25 lurasidone [From Latuda] AdvReac Intermediate anger, rage Verified 05/12/22 12:20 oseltamivir [From Tamiflu] AdvReac Sensation Verified 09/29/21 11:20 of bugs crawling on skin. Assessment & Plan Assessment & Plan (1) Cellulitis, abdominal wall: Status: Acute Code(s): L03.311 - Cellulitis of abdominal wall Plan 36 year old nonbinary admitted with depression/SI to [facility] who developed abdominal wall cellulitis. Abdominal/right groin cellulitis has resolved- abd has small, clean open wound. Can apply silver alginate to open area on abdomen with dressing changes daily. On day 4 IV vanco. Plan for 1 more day of IV vanco and then can transition to doxycycline 100mg PO BID x 5 days. 05/19/22: One to one will stop at 11pm tonight Decrease Chlorpromazine to 100 mg hs Increase Geodon to 60 mg HS Patient educated on: medication risk/benefits, therapeutic strategies and medical condition Informed Consent: understands and further education needed Reason for contiued inpatient stay Substantial Risk for: harm to self and rapid decompensation Time Spent With Patient Time: Total time managing care of this patient today 20 minutes.
[2022-05-19 18:00] VITALS: BP 142/78; PULSE 86; RESP 16; TEMP 36.6; O2SAT 98
[2022-05-19] MEDS: Ziprasidone 60 MG CAPSULE PO (19:40)
[2022-05-19] MEDS: chlorproMAZINE HCl 100 MG TABLET PO (19:40)
[2022-05-19] MEDS: PRAZOSIN HCL 14 MG PO (19:41)
[2022-05-19] MEDS: traZODone HCL 100 MG TABLET 300 MG PO (19:41)
[2022-05-19] MEDS: Melatonin 3 MG TABLET 12 MG PO (19:42)
[2022-05-20] MEDS: ALPRAZolam 0.5 MG TABLET 1 MG PO ×3 (09:40→22:35)
[2022-05-20 09:43] LABS: Estimated Glomerular Filt Rate > 60
[2022-05-20] MEDS: Docusate Sodium 100 MG CAPSULE PO ×2 (09:45→22:30)
[2022-05-20] MEDS: Lithium Carbonate ER 300 MG TABLET.ER 600 MG PO ×2 (09:45→22:35)
[2022-05-20] MEDS: Dextroamphetamine/Amphetamine XR 10 MG CAP.ER.24H 30 MG PO (09:45)
[2022-05-20] MEDS: Doxycycline Monohydrate 100 MG CAPSULE PO ×2 (09:45→22:30)
[2022-05-20] MEDS: Cholecalciferol (Vitamin D3) 25 MCG TABLET 50 MCG PO (09:45)
[2022-05-20] MEDS: Fluticasone Propionate Nasal 16 GM SPRAY 1 SPRAY NOSTRIL-B (09:48)
[2022-05-20 09:59] VITALS: BP 135/72; PULSE 107; RESP 18; TEMP 36.9; O2SAT 97
[2022-05-20] MEDS: Acetaminophen 325 MG TABLET 975 MG PO ×2 (11:51→20:16)
[2022-05-20] MEDS: Amphetamine Mixed Salts 10 MG TABLET PO (14:10)
--- NOTE | 2022-05-20 17:08 | P.PNPSI_ITS ---
Subjective Subjective Date of Service: 05/20/22 Reason For Visit: Depression SI PTSD Subjective Notes: Conditional Voluntary Healthcare Proxy: No Guardianship: No Medical Problems Affecting Mental Status: No Interim History: Off one to one. Pt reports they are able to manage this, however, it is a lot . Discussed upcoming discharge. Very concerned about their wounds and having assist to manage this when discharged. Fears re-infection, tearful, describes feeling some trauma from the IVABX and worries about proper healing. Discharge planned for 05/24. Discussed what is next. I would like to get a dog . Discussed how this would add structure to her day and having the responsibility would benefit herself and her safety. Completed review with pt's insurance company MD reviewer.. Medication Compliance: Yes Side effects from medications: No Attending Groups: Yes Review of Systems Acute medical concerns: No Medical Review of Systems: unchanged Mental Status Exam Mental Status Exam Patient Appearance: Fatigued Patient Orientation: Person, Place, Time and Situation Level of Consciousness: Alert Patient Behavior: Appropriate, Talkative, Cooperative and Good Eye Contact Mood Description: Depressed Patient Cognition Impaired: No Ability to Follow Directions: Good Speech Pattern: Spontaneous Speech Memory Description: Intact Hallucinations: None Delusions: Not Present Perceptual Disturbances: Depersonalization and Derealization Thought Process: Distracted Thought Content: positive for Circumstantial and positive for Suicidal Ideation Depressive Symptoms: Increased Anxiety, Increased Irritability and Thoughts of /Suicide Judgement: Fair Diagnostics Vital Signs (24Hr): Vital Signs - 24 hr 05/19/22 18:00 05/20/22 09:59 Temperature 98 F 98.4 F Pulse Rate 86 107 H Respiratory Rate 16 18 Blood Pressure 142/78 H 135/72 Pulse Oximetry 98 97 Oxygen Delivery Method Room Air Room Air BMI result Body Mass Index 40.3 Labs 05/05/22 08:29 05/20/22 08:33 Labs: Laboratory Results - last 48 hr 05/19/22 05/20/22 08:25 08:33 Creatinine 0.84 0.85 Estim Creat Clear Calc 119.4 118.0 Estimated GFR > 60 > 60 Imaging Radiology Impressions: ITS Impressions Head CT 05/12/22 13:34 IMPRESSION: 1. No acute intracranial process seen. 2. Moderate-sized polyp or retention cyst right maxillary sinus. 3. There are multiple small subcutaneous lesions in the scalp, ? sebaceous cyst versus Warts. These have slightly increased in size since previous CT 03/17/2021 Medications Medications Current Medications Acetaminophen (Acetaminophen 325 Mg Tablet) 975 mg PO TID PRN PRN Reason: Headache/Pain Mild Scale (1-3) Last Admin: 05/20/22 11:51 Dose: 975 mg Al Hydroxide/Mg Hydroxide (Magnesium Hydrox/Alum Hydrox 30 Ml Oral.Susp) 30 ml PO Q6H PRN PRN Reason: Heartburn/Nausea Last Admin: 04/25/22 10:25 Dose: 30 ml Alprazolam (Alprazolam 0.5 Mg Tablet) 1 mg PO QID PRN PRN Reason: Anxiety Last Admin: 05/20/22 14:10 Dose: 1 mg Amphetamine/Dextroamphetamine (Amphetamine Mixed Salts 10 Mg Tablet) 10 mg PO 1400 [facility] Last Admin: 05/20/22 14:10 Dose: 10 mg Amphetamine/Dextroamphetamine (Dextroamphetamine/Amphetamine Xr 10 Mg Cap.Er.24h) 30 mg PO DAILY [facility] Last Admin: 05/20/22 09:45 Dose: 30 mg Benzocaine (Throat Lozenge, Medicated Lozenge) 1 lozenge MUCOUS MEM Q2H PRN PRN Reason: Sore Throat Last Admin: 04/03/22 10:20 Dose: 1 lozenge Bisacodyl (Bisacodyl 5 Mg Tablet.Dr) 10 mg PO DAILY PRN PRN Reason: Constipation Last Admin: 05/08/22 12:01 Dose: 10 mg Chlorpromazine HCl (Chlorpromazine Hcl 100 Mg Tablet) 100 mg PO BEDTIME [facility] Last Admin: 05/19/22 19:40 Dose: 100 mg Diphenhydramine HCl (Diphenhydramine Hcl 25 Mg Capsule) 50 mg PO BEDTIME PRN PRN Reason: Insomnia Last Admin: 05/14/22 02:58 Dose: 50 mg Docusate Sodium (Docusate Sodium 100 Mg Capsule) 100 mg PO BID [facility] Last Admin: 05/20/22 09:45 Dose: 100 mg Doxycycline Monohydrate (Doxycycline Monohydrate 100 Mg Capsule) 100 mg PO Q12H [facility] Stop: 05/23/22 21:00 Last Admin: 05/20/22 09:45 Dose: 100 mg Fluticasone Propionate (Fluticasone Propionate Nasal 16 Gm [place]) 1 spray NOSTRIL-B DAILY [facility] Last Admin: 05/20/22 09:48 Dose: 1 spray Guaifenesin/Dextromethorphan (Guaifenesin Dm 600/30 1 Tab Tab.Er.12h) 1 tab PO BID PRN PRN Reason: cough, congestion Last Admin: 04/13/22 09:11 Dose: 1 tab Hydroxyzine HCl (Hydroxyzine Hcl 25 Mg Tablet) 25 mg PO Q6H PRN PRN Reason: Anxiety Last Admin: 05/19/22 14:14 Dose: 25 mg Lactulose (Lactulose 20 Gm/30 Ml Solution) 10 gm PO DAILY PRN PRN Reason: Constipation Last Admin: 05/01/22 10:00 Dose: 10 gm [place] Carbonate ([place] Carbonate Er 300 Mg Tablet.Er) 600 mg PO BID [facility] Last Admin: 05/20/22 09:45 Dose: 600 mg Loperamide HCl (Loperamide Hcl 2 Mg Capsule) 4 mg PO Q4H PRN PRN Reason: Diarrhea Last Admin: 04/06/22 16:14 Dose: 4 mg Magnesium Hydroxide (Milk Of Magnesia 30 Ml Oral.Susp) 30 ml PO DAILY PRN PRN Reason: Constipation Last Admin: 03/25/22 11:00 Dose: 30 ml Melatonin (Melatonin 3 Mg Tablet) 12 mg PO BEDTIME [facility] Last Admin: 05/19/22 19:42 Dose: 12 mg Multi-Ingred Medicated Throat [place] (Throat [place], Medicated 177 Ml Bottle) 1 spray MUCOUS MEM Q2H PRN PRN Reason: Sore Throat Last Admin: 05/10/22 09:28 Dose: 1 spray Nicotine (Nicotine 14 Mg Patch.Td24) 14 mg TRANSDERMA DAILY PRN PRN Reason: nicotine craving Nicotine Polacrilex (Nicotine Polacrilex 2 Mg Gum) 2 mg BUCCAL Q2H PRN PRN Reason: nicotine withdrawal Last Admin: 03/29/22 09:32 Dose: 2 mg Patient Own Medication ( Desvenlafaxine 100 Mg Er Tablet) 1 tab PO DAILY [facility] Last Admin: 05/20/22 09:49 Dose: 1 tab Pt Own (Super B (Complex)) 1 tab PO DAILY [facility] Last Admin: 05/20/22 09:49 Dose: 1 tab Polyethylene Glycol (Polyethylene Glycol 3350 17 Gm Powd.Pack) 17 gm PO DAILY PRN PRN Reason: constipation Last Admin: 05/08/22 12:01 Dose: 17 gm Prazosin HCl 10 mg/ Prazosin (HCl 4 mg) 14 mg PO BEDTIME [facility] Last Admin: 05/19/22 19:41 Dose: 14 mg Saliva Substitute (Dry Mouth [place] 60 Ml [place]) 1 spray MUCOUS MEM Q2H PRN PRN Reason: Dry Mouth Trazodone HCl (Trazodone Hcl 100 Mg Tablet) 300 mg PO BEDTIME [facility] Last Admin: 05/19/22 19:41 Dose: 300 mg Vitamin D (Cholecalciferol (Vitamin D3) 25 Mcg Tablet) 50 mcg PO DAILY [facility] Last Admin: 05/20/22 09:45 Dose: 50 mcg Ziprasidone (Ziprasidone 60 Mg Capsule) 60 mg PO BEDTIME [facility] Last Admin: 05/19/22 19:40 Dose: 60 mg Allergies Allergies Allergy/AdvReac Type Severity Reaction Status Date / Time Sulfa (Sulfonamide Allergy Unknown Hives Verified 05/06/22 09:25 Antibiotics) [SULFA (SULFONAMIDE ANTIBIOTICS)] sulfamethoxazole Allergy Unknown Hives Verified 05/06/22 09:25 [From BACTRIM] trimethoprim [From BACTRIM] Allergy Unknown Hives Verified 05/06/22 09:25 lurasidone [From Latuda] AdvReac Intermediate anger, rage Verified 05/12/22 12:20 oseltamivir [From Tamiflu] AdvReac Sensation Verified 09/29/21 11:20 of bugs crawling on skin. Assessment & Plan Assessment & Plan (1) Cellulitis, abdominal wall: Status: Acute Code(s): L03.311 - Cellulitis of abdominal wall Plan 36 year old nonbinary admitted with depression/SI to who developed abdominal wall cellulitis. Abdominal/right groin cellulitis has resolved- abd has small, clean open wound. Can apply silver alginate to open area on abdomen with dressing changes daily. On day 4 IV vanco. Plan for 1 more day of IV vanco and then can transition to doxycycline 100mg PO BID x 5 days. 05/19/22: One to one will stop at 11pm tonight Decrease Chlorpromazine to 100 mg hs Increase Geodon to 60 mg HS 05/20/22 Decrease Chlorpromazine to 50 mg hs Patient educated on: therapeutic strategies Informed Consent: understands Reason for contiued inpatient stay Substantial Risk for: harm to self and rapid decompensation Time Spent With Patient Time: Total time managing care of this patient today 35 minutes.
[2022-05-20 18:00] VITALS: BP 163/74; PULSE 81; RESP 18; TEMP 36.2; O2SAT 96
[2022-05-20] MEDS: traZODone HCL 100 MG TABLET 300 MG PO (22:30)
[2022-05-20] MEDS: PRAZOSIN HCL 14 MG PO (22:30)
[2022-05-20] MEDS: chlorproMAZINE HCl 100 MG TABLET 50 MG PO (22:31)
[2022-05-20] MEDS: Ziprasidone 60 MG CAPSULE PO (22:31)
[2022-05-20] MEDS: Melatonin 3 MG TABLET 12 MG PO (22:31)
--- NOTE | 2022-05-21 09:06 | P.PNPSI_ITS ---
Subjective Subjective Date of Service: 05/21/22 Reason For Visit: Depression SI PTSD Subjective Notes: Conditional Voluntary Healthcare Proxy: No Guardianship: No Medical Problems Affecting Mental Status: No Interim History: Reports 15 minute checks are tolerated. SI is passive with no current active thoughts. Very worried about the status of her wound. Her nursing team has provided support, education, teaching about dressing changes . She will not require VNA as dressing change is all that is required. Expressed feeling overwhelmed and unsure about her comfort level in doing her own dressing change. What if the infection comes back? What if I need IVABX again . Review of diagnostics with pt- vanco markers, CBC, CMP, med levels, WBC is trending down, renal function studies are normal. Education provided on the metabolic assessment of current wound for pt as well. Planning discharge 05/24. Medication Compliance: Yes Side effects from medications: No Attending Groups: Yes Review of Systems Acute medical concerns: No Medical Review of Systems: unchanged Mental Status Exam Mental Status Exam Patient Appearance: Fatigued Patient Orientation: Person, Place, Time and Situation Level of Consciousness: Alert Patient Behavior: Appropriate, Talkative, Cooperative and Good Eye Contact Mood Description: Depressed Patient Cognition Impaired: No Ability to Follow Directions: Good Speech Pattern: Spontaneous Speech Memory Description: Intact Hallucinations: None Delusions: Not Present Perceptual Disturbances: Depersonalization and Derealization Thought Process: Distracted Thought Content: positive for Circumstantial and positive for Suicidal Ideation Depressive Symptoms: Increased Anxiety, Increased Irritability and Thoughts of /Suicide Judgement: Fair Diagnostics Vital Signs (24Hr): Vital Signs - 24 hr 05/20/22 09:59 05/20/22 18:00 Temperature 98.4 F 97.2 F Pulse Rate 107 H 81 Respiratory Rate 18 18 Blood Pressure 135/72 163/74 H Pulse Oximetry 97 96 Oxygen Delivery Method Room Air Room Air BMI result Body Mass Index 40.3 Labs 05/05/22 08:29 05/20/22 08:33 Labs: Laboratory Results - last 48 hr 05/19/22 05/20/22 08:25 08:33 Creatinine 0.84 0.85 Estim Creat Clear Calc 119.4 118.0 Estimated GFR > 60 > 60 Imaging Radiology Impressions: ITS Impressions Head CT 05/12/22 13:34 IMPRESSION: 1. No acute intracranial process seen. 2. Moderate-sized polyp or retention cyst right maxillary sinus. 3. There are multiple small subcutaneous lesions in the scalp, ? sebaceous cyst versus Warts. These have slightly increased in size since previous CT 03/17/2021 Medications Medications Current Medications Acetaminophen (Acetaminophen 325 Mg Tablet) 975 mg PO TID PRN PRN Reason: Headache/Pain Mild Scale (1-3) Last Admin: 05/20/22 20:16 Dose: 975 mg Al Hydroxide/Mg Hydroxide (Magnesium Hydrox/Alum Hydrox 30 Ml Oral.Susp) 30 ml PO Q6H PRN PRN Reason: Heartburn/Nausea Last Admin: 04/25/22 10:25 Dose: 30 ml Alprazolam (Alprazolam 0.5 Mg Tablet) 1 mg PO QID PRN PRN Reason: Anxiety Last Admin: 05/20/22 22:35 Dose: 1 mg Amphetamine/Dextroamphetamine (Amphetamine Mixed Salts 10 Mg Tablet) 10 mg PO 1400 [facility] Last Admin: 05/20/22 14:10 Dose: 10 mg Amphetamine/Dextroamphetamine (Dextroamphetamine/Amphetamine Xr 10 Mg Cap.Er .24h) 30 mg PO DAILY [facility] Last Admin: 05/20/22 09:45 Dose: 30 mg Benzocaine (Throat Lozenge, Medicated Lozenge) 1 lozenge MUCOUS MEM Q2H PRN PRN Reason: Sore Throat Last Admin: 04/03/22 10:20 Dose: 1 lozenge Bisacodyl (Bisacodyl 5 Mg Tablet.Dr) 10 mg PO DAILY PRN PRN Reason: Constipation Last Admin: 05/08/22 12:01 Dose: 10 mg Chlorpromazine HCl (Chlorpromazine Hcl 100 Mg Tablet) 50 mg PO BEDTIME [facility] Last Admin: 05/20/22 22:31 Dose: 50 mg Diphenhydramine HCl (Diphenhydramine Hcl 25 Mg Capsule) 50 mg PO BEDTIME PRN PRN Reason: Insomnia Last Admin: 05/14/22 02:58 Dose: 50 mg Docusate Sodium (Docusate Sodium 100 Mg Capsule) 100 mg PO BID [facility] Last Admin: 05/20/22 22:30 Dose: 100 mg Doxycycline Monohydrate (Doxycycline Monohydrate 100 Mg Capsule) 100 mg PO Q12H [facility] Stop: 05/23/22 21:00 Last Admin: 05/20/22 22:30 Dose: 100 mg Fluticasone Propionate (Fluticasone Propionate Nasal 16 Gm [place]) 1 spray NOSTRIL-B DAILY [facility] Last Admin: 05/20/22 09:48 Dose: 1 spray Guaifenesin/Dextromethorphan (Guaifenesin Dm 600/30 1 Tab Tab.Er.12h) 1 tab PO BID PRN PRN Reason: cough, congestion Last Admin: 04/13/22 09:11 Dose: 1 tab Hydroxyzine HCl (Hydroxyzine Hcl 25 Mg Tablet) 25 mg PO Q6H PRN PRN Reason: Anxiety Last Admin: 05/19/22 14:14 Dose: 25 mg Lactulose (Lactulose 20 Gm/30 Ml Solution) 10 gm PO DAILY PRN PRN Reason: Constipation Last Admin: 05/01/22 10:00 Dose: 10 gm [place] Carbonate ([place] Carbonate Er 300 Mg Tablet.Er) 600 mg PO BID [facility] Last Admin: 05/20/22 22:35 Dose: 600 mg Loperamide HCl (Loperamide Hcl 2 Mg Capsule) 4 mg PO Q4H PRN PRN Reason: Diarrhea Last Admin: 04/06/22 16:14 Dose: 4 mg Magnesium Hydroxide (Milk Of Magnesia 30 Ml Oral.Susp) 30 ml PO DAILY PRN PRN Reason: Constipation Last Admin: 03/25/22 11:00 Dose: 30 ml Melatonin (Melatonin 3 Mg Tablet) 12 mg PO BEDTIME [facility] Last Admin: 05/20/22 22:31 Dose: 12 mg Multi-Ingred Medicated Throat [place] (Throat [place], Medicated 177 Ml Bottle) 1 spray MUCOUS MEM Q2H PRN PRN Reason: Sore Throat Last Admin: 05/10/22 09:28 Dose: 1 spray Nicotine (Nicotine 14 Mg Patch.Td24) 14 mg TRANSDERMA DAILY PRN PRN Reason: nicotine craving Nicotine Polacrilex (Nicotine Polacrilex 2 Mg Gum) 2 mg BUCCAL Q2H PRN PRN Reason: nicotine withdrawal Last Admin: 03/29/22 09:32 Dose: 2 mg Patient Own Medication ( Desvenlafaxine 100 Mg Er Tablet) 1 tab PO DAILY [facility] Last Admin: 05/20/22 09:49 Dose: 1 tab Pt Own (Super B (Complex)) 1 tab PO DAILY [facility] Last Admin: 05/20/22 09:49 Dose: 1 tab Polyethylene Glycol (Polyethylene Glycol 3350 17 Gm Powd.Pack) 17 gm PO DAILY PRN PRN Reason: constipation Last Admin: 05/08/22 12:01 Dose: 17 gm Prazosin HCl 10 mg/ Prazosin (HCl 4 mg) 14 mg PO BEDTIME [facility] Last Admin: 05/20/22 22:30 Dose: 14 mg Saliva Substitute (Dry Mouth [place] 60 Ml [place]) 1 spray MUCOUS MEM Q2H PRN PRN Reason: Dry Mouth Trazodone HCl (Trazodone Hcl 100 Mg Tablet) 300 mg PO BEDTIME [facility] Last Admin: 05/20/22 22:30 Dose: 300 mg Vitamin D (Cholecalciferol (Vitamin D3) 25 Mcg Tablet) 50 mcg PO DAILY [facility] Last Admin: 05/20/22 09:45 Dose: 50 mcg Ziprasidone (Ziprasidone 60 Mg Capsule) 60 mg PO BEDTIME [facility] Last Admin: 05/20/22 22:31 Dose: 60 mg Allergies Allergies Allergy/AdvReac Type Severity Reaction Status Date / Time Sulfa (Sulfonamide Allergy Unknown Hives Verified 05/06/22 09:25 Antibiotics) [SULFA (SULFONAMIDE ANTIBIOTICS)] sulfamethoxazole Allergy Unknown Hives Verified 05/06/22 09:25 [From BACTRIM] trimethoprim [From BACTRIM] Allergy Unknown Hives Verified 05/06/22 09:25 lurasidone [From Latuda] AdvReac Intermediate anger, rage Verified 05/12/22 12:20 oseltamivir [From Tamiflu] AdvReac Sensation Verified 09/29/21 11:20 of bugs crawling on skin. Assessment & Plan Assessment & Plan (1) Cellulitis, abdominal wall: Status: Acute Code(s): L03.311 - Cellulitis of abdominal wall Plan 36 year old nonbinary admitted with depression/SI to [facility] who developed abdominal wall cellulitis. Abdominal/right groin cellulitis has resolved- abd has small, clean open wound. Can apply silver alginate to open area on abdomen with dressing changes daily. On day 4 IV vanco. Plan for 1 more day of IV vanco and then can transition to doxycycline 100mg PO BID x 5 days. 05/19/22: One to one will stop at 11pm tonight Decrease Chlorpromazine to 100 mg hs Increase Geodon to 60 mg HS 05/20/22 Decrease Chlorpromazine to 50 mg hs 05/21/22 Continue current plan of care Patient educated on: therapeutic strategies and medical condition Informed Consent: understands Reason for contiued inpatient stay Substantial Risk for: rapid decompensation Time Spent With Patient Time: Total time managing care of this patient today 30 minutes.
[2022-05-21] MEDS: Docusate Sodium 100 MG CAPSULE PO ×2 (09:25→22:16)
[2022-05-21] MEDS: Doxycycline Monohydrate 100 MG CAPSULE PO ×2 (09:25→22:16)
[2022-05-21] MEDS: Dextroamphetamine/Amphetamine XR 10 MG CAP.ER.24H 30 MG PO (09:25)
[2022-05-21] MEDS: Lithium Carbonate ER 300 MG TABLET.ER 600 MG PO ×2 (09:25→22:16)
[2022-05-21] MEDS: Cholecalciferol (Vitamin D3) 25 MCG TABLET 50 MCG PO (09:25)
[2022-05-21] MEDS: ALPRAZolam 0.5 MG TABLET 1 MG PO ×3 (09:25→22:17)
[2022-05-21 09:30] LABS: MANUAL DIFF FLAG NO
[2022-05-21 09:34] VITALS: BP 131/70; PULSE 86; RESP 16; TEMP 36.1; O2SAT 95
[2022-05-21 09:37] LABS: Basophils Percent Auto 0.3 % (0-2); Eosinophils Absolute Auto 0.2 X10*3/uL (0.0-0.4); Eosinophils Percent Auto 3.3 % (0-4); Hematocrit 36.4 % (37.0-47.0); Hemoglobin 12.3 g/dl (12.0-16.0); Imm Gran Abs Auto 0.03 X10*3/uL (0.00-0.03); Imm Gran Pct Auto 0.4 % (0.0-0.4); Lymphocytes Percent Auto 30.1 % (20-40); Mean Corpuscular HGB Conc 33.8 g/dl (31.0-35.0); Mean Corpuscular Hemoglobin 29.9 pg (27.0-33.0); Mean Corpuscular Volume 88.6 fL (80.0-98.0); Mean Platelet Volume 9.3 fL (9.4-12.3); Monocytes Absolute Auto 0.3 X10*3/uL (0.1-1.2); Monocytes Percent Auto 4.9 % (2-11); Neutrophils Absolute Auto 4.1 x10*3/uL (2.0-8.3); Platelet Count 384 X10*3/uL (160-400); Red Blood Count 4.11 X10*6/uL (4.20-5.50); Red Cell Distribution Width 12.7 % (11.0-16.0); White Blood Count 6.7 X10*3/uL (4.8-10.8)
[2022-05-21 10:18] LABS: Creatinine Clr Calc Pharmacy 115.3; Estimated Glomerular Filt Rate > 60
[2022-05-21 10:19] LABS: Alanine Aminotransferase 17 U/L (0-31); Albumin Level 3.6 g/dL (3.5-5.0); Alkaline Phosphatase 56 U/L (39-117); Anion Gap 14 (12-20); Aspartate Amino Transferase 14 U/L (5-31); Bilirubin Total 0.3 mg/dL (0.0-1.0); Blood Urea Nitrogen 9 mg/dL (9-16); Calcium 9.1 mg/dL (8.4-10.2); Carbon Dioxide 24 mmol/L (22-29); Chloride 109 mmol/L (96-108); Estimated Glomerular Filt Rate > 60; Glucose Random 83 mg/dL (60-115); Potassium 4.8 mmol/L (3.3-5.1); Sodium 142 mmol/L (135-145); Total Protein 5.9 g/dL (6.5-8.0)
[2022-05-21 10:22] LABS: Lithium 0.91 mmol/L (0.60-1.20)
[2022-05-21] MEDS: Acetaminophen 325 MG TABLET 975 MG PO ×2 (12:02→19:32)
[2022-05-21] MEDS: Amphetamine Mixed Salts 10 MG TABLET PO (13:22)
[2022-05-21 18:00] VITALS: BP 123/88; PULSE 94; TEMP 36.4; O2SAT 96
[2022-05-21] MEDS: hydrOXYzine HCL 25 MG TABLET PO (19:32)
[2022-05-21] MEDS: PRAZOSIN HCL 14 MG PO (22:15)
[2022-05-21] MEDS: traZODone HCL 100 MG TABLET 300 MG PO (22:16)
[2022-05-21] MEDS: chlorproMAZINE HCl 100 MG TABLET 50 MG PO (22:16)
[2022-05-21] MEDS: Melatonin 3 MG TABLET 12 MG PO (22:17)
[2022-05-21] MEDS: Ziprasidone 80 MG CAPSULE PO (22:17)
--- NOTE | 2022-05-21 22:26 | PC.NURSE ---
pt refused EKG tonight, pt would like to do it in the morning.
[2022-05-22 06:58] LABS: Creatinine Clr Calc Pharmacy 115.3; Estimated Glomerular Filt Rate > 60
[2022-05-22] MEDS: Lithium Carbonate ER 300 MG TABLET.ER 600 MG PO ×2 (08:57→20:04)
[2022-05-22] MEDS: Docusate Sodium 100 MG CAPSULE PO ×2 (08:57→20:05)
[2022-05-22] MEDS: Fluticasone Propionate Nasal 16 GM SPRAY 1 SPRAY NOSTRIL-B (08:57)
[2022-05-22] MEDS: Doxycycline Monohydrate 100 MG CAPSULE PO ×2 (08:57→20:04)
[2022-05-22] MEDS: ALPRAZolam 0.5 MG TABLET 1 MG PO ×3 (08:58→22:10)
[2022-05-22] MEDS: Dextroamphetamine/Amphetamine XR 10 MG CAP.ER.24H 30 MG PO (08:58)
[2022-05-22] MEDS: Cholecalciferol (Vitamin D3) 25 MCG TABLET 50 MCG PO (08:59)
--- NOTE | 2022-05-22 09:00 | ECG_ITS ---
Test Reason : chest pain Blood Pressure : / mmHG Vent. Rate : 094 BPM Atrial Rate : 094 BPM P-R Int : 162 ms QRS Dur : 090 ms QT Int : 362 ms P-R-T Axes : 043 079 054 degrees QTc Int : 452 ms Normal sinus rhythm Normal ECG When compared with ECG of 22-APR-2022 10:39, No significant change was found Referred By: Orin Johnson Electronically Signed By:VIBHA BYRNES
--- NOTE | 2022-05-22 10:02 | HO.PSYCHPN ---
Subjective Subjective Date of Service: 05/22/22 Reason For Visit: Depression SI PTSD Subjective Notes: Conditional Voluntary Healthcare Proxy: No Guardianship: No Medical Problems Affecting Mental Status: No Interim History: Patient was seen and discussed in rounds today. Records and plans were reviewed. They are stable and are looking forward to their discharge, probably on 05/24. They are anxious about it. They have been compliant with treatment and medications. No complaints or side effects. Eating and sleeping adequately. No changes were made today Medication Compliance: Yes Side effects from medications: No Attending Groups: Yes Review of Systems Acute medical concerns: No Review of Systems Review of Systems Yes all other systems are reviewed and are negative Mental Status Exam Mental Status Exam Patient Appearance: Fatigued Patient Orientation: Person, Place, Time and Situation Level of Consciousness: Alert Patient Behavior: Appropriate, Talkative, Cooperative and Good Eye Contact Mood Description: Depressed Patient Cognition Impaired: No Ability to Follow Directions: Good Speech Pattern: Spontaneous Speech Memory Description: Intact Hallucinations: None Delusions: Not Present Perceptual Disturbances: Depersonalization and Derealization Thought Process: Distracted Thought Content: positive for Circumstantial and positive for Suicidal Ideation Depressive Symptoms: Increased Anxiety, Increased Irritability and Thoughts of /Suicide Judgement: Fair Diagnostics Vital Signs (24Hr): Vital Signs - 24 hr 05/21/22 18:00 Temperature 97.6 F Pulse Rate 94 Blood Pressure 123/88 Pulse Oximetry 96 Oxygen Delivery Method Room Air BMI result Body Mass Index 40.3 Labs 05/21/22 08:52 05/22/22 06:36 Labs: Laboratory Results - last 48 hr 05/21/22 05/21/22 05/21/22 08:52 08:52 08:52 WBC 6.7 RBC 4.11 L Hgb 12.3 Hct 36.4 L MCV 88.6 MCH 29.9 MCHC 33.8 RDW 12.7 Plt Count 384 D MPV 9.3 L Immature Gran % (Auto) 0.4 Neut % (Auto) 61.0 Lymph % (Auto) 30.1 [place] % (Auto) 4.9 Eos % (Auto) 3.3 Baso % (Auto) 0.3 Lymph # (Auto) 2.0 [place] # (Auto) 0.3 Eos # (Auto) 0.2 Baso # (Auto) 0.0 Abs Immat Gran (auto) 0.03 Absolute Neuts (auto) 4.1 Absolute Nucleated RBC 0.000 Nucleated RBC % (auto) 0.0 Sodium 142 Potassium 4.8 Chloride 109 H Carbon Dioxide 24 Anion Gap 14 BUN 9 Creatinine 0.87 0.85 Estim Creat Clear Calc 115.3 118.0 Estimated GFR > 60 > 60 Random Glucose 83 Calcium 9.1 Total Bilirubin 0.3 AST 14 ALT 17 Alkaline Phosphatase 56 Total Protein 5.9 L Albumin 3.6 [place] 05/21/22 05/22/22 08:52 06:36 WBC RBC Hgb Hct MCV MCH MCHC RDW Plt Count MPV Immature Gran % (Auto) Neut % (Auto) Lymph % (Auto) [place] % (Auto) Eos % (Auto) Baso % (Auto) Lymph # (Auto) [place] # (Auto) Eos # (Auto) Baso # (Auto) Abs Immat Gran (auto) Absolute Neuts (auto) Absolute Nucleated RBC Nucleated RBC % (auto) Sodium Potassium Chloride Carbon Dioxide Anion Gap BUN Creatinine 0.87 Estim Creat Clear Calc 115.3 Estimated GFR > 60 Random Glucose Calcium Total Bilirubin AST ALT Alkaline Phosphatase Total Protein Albumin [place] 0.91 Imaging Radiology Impressions: ITS Impressions Head CT 05/12/22 13:34 IMPRESSION: 1. No acute intracranial process seen. 2. Moderate-sized polyp or retention cyst right maxillary sinus. 3. There are multiple small subcutaneous lesions in the scalp, ? sebaceous cyst versus Warts. These have slightly increased in size since previous CT 03/17/2021 Medications Medications Current Medications Acetaminophen (Acetaminophen 325 Mg Tablet) 975 mg PO TID PRN PRN Reason: Headache/Pain Mild Scale (1-3) Last Admin: 05/21/22 19:32 Dose: 975 mg Al Hydroxide/Mg Hydroxide (Magnesium Hydrox/Alum Hydrox 30 Ml Oral.Susp) 30 ml PO Q6H PRN PRN Reason: Heartburn/Nausea Last Admin: 04/25/22 10:25 Dose: 30 ml Alprazolam (Alprazolam 0.5 Mg Tablet) 1 mg PO QID PRN PRN Reason: Anxiety Last Admin: 05/22/22 08:58 Dose: 1 mg Amphetamine/Dextroamphetamine (Amphetamine Mixed Salts 10 Mg Tablet) 10 mg PO 1400 LACEY Last Admin: 05/21/22 13:22 Dose: 10 mg Amphetamine/Dextroamphetamine (Dextroamphetamine/Amphetamine Xr 10 Mg Cap.Er.24h) 30 mg PO DAILY [facility] Last Admin: 05/22/22 08:58 Dose: 30 mg Benzocaine (Throat Lozenge, Medicated Lozenge) 1 lozenge MUCOUS MEM Q2H PRN PRN Reason: Sore Throat Last Admin: 04/03/22 10:20 Dose: 1 lozenge Bisacodyl (Bisacodyl 5 Mg Tablet.Dr) 10 mg PO DAILY PRN PRN Reason: Constipation Last Admin: 05/08/22 12:01 Dose: 10 mg Chlorpromazine HCl (Chlorpromazine Hcl 100 Mg Tablet) 50 mg PO BEDTIME [facility] Last Admin: 05/21/22 22:16 Dose: 50 mg Diphenhydramine HCl (Diphenhydramine Hcl 25 Mg Capsule) 50 mg PO BEDTIME PRN PRN Reason: Insomnia Last Admin: 05/14/22 02:58 Dose: 50 mg Docusate Sodium (Docusate Sodium 100 Mg Capsule) 100 mg PO BID [facility] Last Admin: 05/22/22 08:57 Dose: 100 mg Doxycycline Monohydrate (Doxycycline Monohydrate 100 Mg Capsule) 100 mg PO Q12H [facility] Stop: 05/23/22 21:00 Last Admin: 05/22/22 08:57 Dose: 100 mg Fluticasone Propionate (Fluticasone Propionate Nasal 16 Gm [place]) 1 spray NOSTRIL-B DAILY [facility] Last Admin: 05/22/22 08:57 Dose: 1 spray Guaifenesin/Dextromethorphan (Guaifenesin Dm 600/30 1 Tab Tab.Er.12h) 1 tab PO BID PRN PRN Reason: cough, congestion Last Admin: 04/13/22 09:11 Dose: 1 tab Hydroxyzine HCl (Hydroxyzine Hcl 25 Mg Tablet) 25 mg PO Q6H PRN PRN Reason: Anxiety Last Admin: 05/21/22 19:32 Dose: 25 mg Lactulose (Lactulose 20 Gm/30 Ml Solution) 10 gm PO DAILY PRN PRN Reason: Constipation Last Admin: 05/01/22 10:00 Dose: 10 gm [place] Carbonate ([place] Carbonate Er 300 Mg Tablet.Er) 600 mg PO BID [facility] Last Admin: 05/22/22 08:57 Dose: 600 mg Loperamide HCl (Loperamide Hcl 2 Mg Capsule) 4 mg PO Q4H PRN PRN Reason: Diarrhea Last Admin: 04/06/22 16:14 Dose: 4 mg Magnesium Hydroxide (Milk Of Magnesia 30 Ml Oral.Susp) 30 ml PO DAILY PRN PRN Reason: Constipation Last Admin: 03/25/22 11:00 Dose: 30 ml Melatonin (Melatonin 3 Mg Tablet) 12 mg PO BEDTIME [facility] Last Admin: 05/21/22 22:17 Dose: 12 mg Multi-Ingred Medicated Throat [place] (Throat [place], Medicated 177 Ml Bottle) 1 spray MUCOUS MEM Q2H PRN PRN Reason: Sore Throat Last Admin: 05/10/22 09:28 Dose: 1 spray Nicotine (Nicotine 14 Mg Patch.Td24) 14 mg TRANSDERMA DAILY PRN PRN Reason: nicotine craving Nicotine Polacrilex (Nicotine Polacrilex 2 Mg Gum) 2 mg BUCCAL Q2H PRN PRN Reason: nicotine withdrawal Last Admin: 03/29/22 09:32 Dose: 2 mg Patient Own Medication ( Desvenlafaxine 100 Mg Er Tablet) 1 tab PO DAILY [facility] Last Admin: 05/22/22 08:57 Dose: 1 tab Pt Own (Super B (Complex)) 1 tab PO DAILY [facility] Last Admin: 05/22/22 08:57 Dose: 1 tab Polyethylene Glycol (Polyethylene Glycol 3350 17 Gm Powd.Pack) 17 gm PO DAILY PRN PRN Reason: constipation Last Admin: 05/08/22 12:01 Dose: 17 gm Prazosin HCl 10 mg/ Prazosin (HCl 4 mg) 14 mg PO BEDTIME [facility] Last Admin: 05/21/22 22:15 Dose: 14 mg Saliva Substitute (Dry Mouth [place] 60 Ml [place]) 1 spray MUCOUS MEM Q2H PRN PRN Reason: Dry Mouth Trazodone HCl (Trazodone Hcl 100 Mg Tablet) 300 mg PO BEDTIME [facility] Last Admin: 05/21/22 22:16 Dose: 300 mg Vitamin D (Cholecalciferol (Vitamin D3) 25 Mcg Tablet) 50 mcg PO DAILY [facility] Last Admin: 05/22/22 08:59 Dose: 50 mcg Ziprasidone (Ziprasidone 80 Mg Capsule) 80 mg PO BEDTIME [facility] Last Admin: 05/21/22 22:17 Dose: 80 mg Allergies Allergies Allergy/AdvReac Type Severity Reaction Status Date / Time Sulfa (Sulfonamide Allergy Unknown Hives Verified 05/06/22 09:25 Antibiotics) [SULFA (SULFONAMIDE ANTIBIOTICS)] sulfamethoxazole Allergy Unknown Hives Verified 05/06/22 09:25 [From BACTRIM] trimethoprim [From BACTRIM] Allergy Unknown Hives Verified 05/06/22 09:25 lurasidone [From Latuda] AdvReac Intermediate anger, rage Verified 05/12/22 12:20 oseltamivir [From Tamiflu] AdvReac Sensation Verified 09/29/21 11:20 of bugs crawling on skin. lavender Allergy Severe Hives Uncoded 05/21/22 13:49 Assessment & Plan Assessment & Plan (1) Cellulitis, abdominal wall: Status: Acute Code(s): L03.311 - Cellulitis of abdominal wall Plan 36 year old nonbinary admitted with depression/SI to M5 who developed abdominal wall cellulitis. Abdominal/right groin cellulitis has resolved- abd has small, clean open wound. Can apply silver alginate to open area on abdomen with dressing changes daily. On day 4 IV vanco. Plan for 1 more day of IV vanco and then can transition to doxycycline 100mg PO BID x 5 days. 05/19/22: One to one will stop at 11pm tonight Decrease Chlorpromazine to 100 mg hs Increase Geodon to 60 mg HS 05/20/22 Decrease Chlorpromazine to 50 mg hs 05/21/22 Continue current plan of care 05/22: Continue current regimen and plans Reason for contiued inpatient stay Substantial Risk for: harm to self and med/psych decompensation Time Spent With Patient Time: Total time managing care of this patient today ____ minutes.
[2022-05-22 10:13] VITALS: BP 138/75; PULSE 85; RESP 16; TEMP 36.4; O2SAT 96
[2022-05-22] MEDS: Amphetamine Mixed Salts 10 MG TABLET PO (13:32)
[2022-05-22] MEDS: Acetaminophen 325 MG TABLET 975 MG PO (14:29)
[2022-05-22] MEDS: chlorproMAZINE HCl 100 MG TABLET 50 MG PO (20:02)
[2022-05-22] MEDS: PRAZOSIN HCL 14 MG PO (20:04)
[2022-05-22] MEDS: Ziprasidone 80 MG CAPSULE PO (20:04)
[2022-05-22] MEDS: traZODone HCL 100 MG TABLET 300 MG PO (20:04)
[2022-05-22] MEDS: Melatonin 3 MG TABLET 12 MG PO (20:05)
[2022-05-23 07:36] LABS: Creatinine Clr Calc Pharmacy 109.1; Estimated Glomerular Filt Rate > 60
--- NOTE | 2022-05-23 08:41 | HO.PSYCHPN ---
Subjective Subjective Date of Service: 05/23/22 Reason For Visit: Depression SI PTSD Subjective Notes: Conditional Voluntary Healthcare Proxy: No Guardianship: No Medical Problems Affecting Mental Status: No Interim History: Patient was seen and discussed in rounds today. Records and plans were reviewed. They are doing fairly well and anxiously looking forward to discharge tomorrow as previously planned. There are more goal oriented. No suicidal ideations. Eating and sleeping adequately. No changes were made today Medication Compliance: Yes Side effects from medications: No Attending Groups: Yes Review of Systems Acute medical concerns: No Review of Systems Review of Systems Yes all other systems are reviewed and are negative Mental Status Exam Mental Status Exam Patient Appearance: Fatigued Patient Orientation: Person, Place, Time and Situation Level of Consciousness: Alert Patient Behavior: Appropriate, Talkative, Cooperative and Good Eye Contact Mood Description: Depressed Patient Cognition Impaired: No Ability to Follow Directions: Good Speech Pattern: Spontaneous Speech Memory Description: Intact Hallucinations: None Delusions: Not Present Perceptual Disturbances: Depersonalization and Derealization Thought Process: Distracted Thought Content: positive for Circumstantial and positive for Suicidal Ideation Depressive Symptoms: Increased Anxiety, Increased Irritability and Thoughts of /Suicide Judgement: Fair Diagnostics Vital Signs (24Hr): Vital Signs - 24 hr 05/22/22 10:13 Temperature 97.6 F Pulse Rate 85 Respiratory Rate 16 Blood Pressure 138/75 Pulse Oximetry 96 Oxygen Delivery Method Room Air BMI result Body Mass Index 40.3 Labs 05/21/22 08:52 05/23/22 07:16 Labs: Laboratory Results - last 48 hr 05/21/22 05/21/22 05/21/22 08:52 08:52 08:52 WBC 6.7 RBC 4.11 L Hgb 12.3 Hct 36.4 L MCV 88.6 MCH 29.9 MCHC 33.8 RDW 12.7 Plt Count 384 D MPV 9.3 L Immature Gran % (Auto) 0.4 Neut % (Auto) 61.0 Lymph % (Auto) 30.1 [place] % (Auto) 4.9 Eos % (Auto) 3.3 Baso % (Auto) 0.3 Lymph # (Auto) 2.0 [place] # (Auto) 0.3 Eos # (Auto) 0.2 Baso # (Auto) 0.0 Abs Immat Gran (auto) 0.03 Absolute Neuts (auto) 4.1 Absolute Nucleated RBC 0.000 Nucleated RBC % (auto) 0.0 Sodium 142 Potassium 4.8 Chloride 109 H Carbon Dioxide 24 Anion Gap 14 BUN 9 Creatinine 0.87 0.85 Estim Creat Clear Calc 115.3 118.0 Estimated GFR > 60 > 60 Random Glucose 83 Calcium 9.1 Total Bilirubin 0.3 AST 14 ALT 17 Alkaline Phosphatase 56 Total Protein 5.9 L Albumin 3.6 [place] 05/21/22 05/22/22 05/23/22 08:52 06:36 07:16 WBC RBC Hgb Hct MCV MCH MCHC RDW Plt Count MPV Immature Gran % (Auto) Neut % (Auto) Lymph % (Auto) [place] % (Auto) Eos % (Auto) Baso % (Auto) Lymph # (Auto) [place] # (Auto) Eos # (Auto) Baso # (Auto) Abs Immat Gran (auto) Absolute Neuts (auto) Absolute Nucleated RBC Nucleated RBC % (auto) Sodium Potassium Chloride Carbon Dioxide Anion Gap BUN Creatinine 0.87 0.92 Estim Creat Clear Calc 115.3 109.1 Estimated GFR > 60 > 60 Random Glucose Calcium Total Bilirubin AST ALT Alkaline Phosphatase Total Protein Albumin [place] 0.91 Imaging Radiology Impressions: ITS Impressions Head CT 05/12/22 13:34 IMPRESSION: 1. No acute intracranial process seen. 2. Moderate-sized polyp or retention cyst right maxillary sinus. 3. There are multiple small subcutaneous lesions in the scalp, ? sebaceous cyst versus Warts. These have slightly increased in size since previous CT 03/17/2021 Medications Medications Current Medications Acetaminophen (Acetaminophen 325 Mg Tablet) 975 mg PO TID PRN PRN Reason: Headache/Pain Mild Scale (1-3) Last Admin: 05/22/22 14:29 Dose: 975 mg Al Hydroxide/Mg Hydroxide (Magnesium Hydrox/Alum Hydrox 30 Ml Oral.Susp) 30 ml PO Q6H PRN PRN Reason: Heartburn/Nausea Last Admin: 04/25/22 10:25 Dose: 30 ml Alprazolam (Alprazolam 0.5 Mg Tablet) 1 mg PO QID PRN PRN Reason: Anxiety Last Admin: 05/22/22 22:10 Dose: 1 mg Amphetamine/Dextroamphetamine (Amphetamine Mixed Salts 10 Mg Tablet) 10 mg PO 1400 LACEY Last Admin: 05/22/22 13:32 Dose: 10 mg Amphetamine/Dextroamphetamine (Dextroamphetamine/Amphetamine Xr 10 Mg Cap.Er.24h) 30 mg PO DAILY [facility] Last Admin: 05/22/22 08:58 Dose: 30 mg Benzocaine (Throat Lozenge, Medicated Lozenge) 1 lozenge MUCOUS MEM Q2H PRN PRN Reason: Sore Throat Last Admin: 04/03/22 10:20 Dose: 1 lozenge Bisacodyl (Bisacodyl 5 Mg Tablet.Dr) 10 mg PO DAILY PRN PRN Reason: Constipation Last Admin: 05/08/22 12:01 Dose: 10 mg Chlorpromazine HCl (Chlorpromazine Hcl 100 Mg Tablet) 50 mg PO BEDTIME [facility] Last Admin: 05/22/22 20:02 Dose: 50 mg Diphenhydramine HCl (Diphenhydramine Hcl 25 Mg Capsule) 50 mg PO BEDTIME PRN PRN Reason: Insomnia Last Admin: 05/14/22 02:58 Dose: 50 mg Docusate Sodium (Docusate Sodium 100 Mg Capsule) 100 mg PO BID [facility] Last Admin: 05/22/22 20:05 Dose: 100 mg Doxycycline Monohydrate (Doxycycline Monohydrate 100 Mg Capsule) 100 mg PO Q12H [facility] Stop: 05/23/22 21:00 Last Admin: 05/22/22 20:04 Dose: 100 mg Fluticasone Propionate (Fluticasone Propionate Nasal 16 Gm [place]) 1 spray NOSTRIL-B DAILY [facility] Last Admin: 05/22/22 08:57 Dose: 1 spray Guaifenesin/Dextromethorphan (Guaifenesin Dm 600/30 1 Tab Tab.Er.12h) 1 tab PO BID PRN PRN Reason: cough, congestion Last Admin: 04/13/22 09:11 Dose: 1 tab Hydroxyzine HCl (Hydroxyzine Hcl 25 Mg Tablet) 25 mg PO Q6H PRN PRN Reason: Anxiety Last Admin: 05/21/22 19:32 Dose: 25 mg Lactulose (Lactulose 20 Gm/30 Ml Solution) 10 gm PO DAILY PRN PRN Reason: Constipation Last Admin: 05/01/22 10:00 Dose: 10 gm [place] Carbonate ([place] Carbonate Er 300 Mg Tablet.Er) 600 mg PO BID [facility] Last Admin: 05/22/22 20:04 Dose: 600 mg Loperamide HCl (Loperamide Hcl 2 Mg Capsule) 4 mg PO Q4H PRN PRN Reason: Diarrhea Last Admin: 04/06/22 16:14 Dose: 4 mg Magnesium Hydroxide (Milk Of Magnesia 30 Ml Oral.Susp) 30 ml PO DAILY PRN PRN Reason: Constipation Last Admin: 03/25/22 11:00 Dose: 30 ml Melatonin (Melatonin 3 Mg Tablet) 12 mg PO BEDTIME [facility] Last Admin: 05/22/22 20:05 Dose: 12 mg Multi-Ingred Medicated Throat [place] (Throat [place], Medicated 177 Ml Bottle) 1 spray MUCOUS MEM Q2H PRN PRN Reason: Sore Throat Last Admin: 05/10/22 09:28 Dose: 1 spray Nicotine (Nicotine 14 Mg Patch.Td24) 14 mg TRANSDERMA DAILY PRN PRN Reason: nicotine craving Nicotine Polacrilex (Nicotine Polacrilex 2 Mg Gum) 2 mg BUCCAL Q2H PRN PRN Reason: nicotine withdrawal Last Admin: 03/29/22 09:32 Dose: 2 mg Patient Own Medication ( Desvenlafaxine 100 Mg Er Tablet) 1 tab PO DAILY [facility] Last Admin: 05/22/22 08:57 Dose: 1 tab Pt Own (Super B (Complex)) 1 tab PO DAILY [facility] Last Admin: 05/22/22 08:57 Dose: 1 tab Polyethylene Glycol (Polyethylene Glycol 3350 17 Gm Powd.Pack) 17 gm PO DAILY PRN PRN Reason: constipation Last Admin: 05/08/22 12:01 Dose: 17 gm Prazosin HCl 10 mg/ Prazosin (HCl 4 mg) 14 mg PO BEDTIME [facility] Last Admin: 05/22/22 20:04 Dose: 14 mg Saliva Substitute (Dry Mouth [place] 60 Ml [place]) 1 spray MUCOUS MEM Q2H PRN PRN Reason: Dry Mouth Trazodone HCl (Trazodone Hcl 100 Mg Tablet) 300 mg PO BEDTIME [facility] Last Admin: 05/22/22 20:04 Dose: 300 mg Vitamin D (Cholecalciferol (Vitamin D3) 25 Mcg Tablet) 50 mcg PO DAILY [facility] Last Admin: 05/22/22 08:59 Dose: 50 mcg Ziprasidone (Ziprasidone 80 Mg Capsule) 80 mg PO BEDTIME [facility] Last Admin: 05/22/22 20:04 Dose: 80 mg Allergies Allergies Allergy/AdvReac Type Severity Reaction Status Date / Time Sulfa (Sulfonamide Allergy Unknown Hives Verified 05/06/22 09:25 Antibiotics) [SULFA (SULFONAMIDE ANTIBIOTICS)] sulfamethoxazole Allergy Unknown Hives Verified 05/06/22 09:25 [From BACTRIM] trimethoprim [From BACTRIM] Allergy Unknown Hives Verified 05/06/22 09:25 lurasidone [From Latuda] AdvReac Intermediate anger, rage Verified 05/12/22 12:20 oseltamivir [From Tamiflu] AdvReac Sensation Verified 09/29/21 11:20 of bugs crawling on skin. lavender Allergy Severe Hives Uncoded 05/21/22 13:49 Assessment & Plan Assessment & Plan (1) Cellulitis, abdominal wall: Status: Acute Code(s): L03.311 - Cellulitis of abdominal wall Plan 36 year old nonbinary admitted with depression/SI to M5 who developed abdominal wall cellulitis. Abdominal/right groin cellulitis has resolved- abd has small, clean open wound. Can apply silver alginate to open area on abdomen with dressing changes daily. On day 4 IV vanco. Plan for 1 more day of IV vanco and then can transition to doxycycline 100mg PO BID x 5 days. 05/19/22: One to one will stop at 11pm tonight Decrease Chlorpromazine to 100 mg hs Increase Geodon to 60 mg HS 05/20/22 Decrease Chlorpromazine to 50 mg hs 05/21/22 Continue current plan of care 05/22: Continue current regimen and plans 05/23:. Continue current regimen and plans and plan discharge for tomorrow Reason for contiued inpatient stay Substantial Risk for: harm to self Time Spent With Patient Time: Total time managing care of this patient today ____ minutes.
[2022-05-23] MEDS: Dextroamphetamine/Amphetamine XR 10 MG CAP.ER.24H 30 MG PO (09:07)
[2022-05-23] MEDS: Doxycycline Monohydrate 100 MG CAPSULE PO ×2 (09:07→22:14)
[2022-05-23] MEDS: Cholecalciferol (Vitamin D3) 25 MCG TABLET 50 MCG PO (09:07)
[2022-05-23] MEDS: Docusate Sodium 100 MG CAPSULE PO ×2 (09:07→22:15)
[2022-05-23] MEDS: ALPRAZolam 0.5 MG TABLET 1 MG PO ×3 (09:07→22:15)
[2022-05-23] MEDS: Lithium Carbonate ER 300 MG TABLET.ER 600 MG PO ×2 (09:08→22:13)
[2022-05-23 09:14] VITALS: BP 104/52; PULSE 81; RESP 16; TEMP 36.7; O2SAT 95
[2022-05-23] MEDS: hydrOXYzine HCL 25 MG TABLET PO (12:27)
[2022-05-23] MEDS: Acetaminophen 325 MG TABLET 975 MG PO ×2 (12:27→22:11)
[2022-05-23] MEDS: hydrOXYzine HCL 50 MG TABLET PO (16:50)
[2022-05-23 21:55] VITALS: BP 116/68; PULSE 65; TEMP 36.6
[2022-05-23] MEDS: Melatonin 3 MG TABLET 12 MG PO (22:08)
[2022-05-23] MEDS: PRAZOSIN HCL 14 MG PO (22:09)
[2022-05-23] MEDS: traZODone HCL 100 MG TABLET 300 MG PO (22:11)
[2022-05-23] MEDS: chlorproMAZINE HCl 100 MG TABLET 50 MG PO (22:12)
[2022-05-23] MEDS: Ziprasidone 80 MG CAPSULE PO (22:14)
[2022-05-24] MEDS: Lithium Carbonate ER 300 MG TABLET.ER 600 MG PO (08:47)
[2022-05-24] MEDS: Fluticasone Propionate Nasal 16 GM SPRAY 1 SPRAY NOSTRIL-B (08:47)
[2022-05-24] MEDS: Dextroamphetamine/Amphetamine XR 10 MG CAP.ER.24H 30 MG PO (08:48)
[2022-05-24] MEDS: Docusate Sodium 100 MG CAPSULE PO (08:48)
[2022-05-24] MEDS: ALPRAZolam 0.5 MG TABLET 1 MG PO (08:48)
[2022-05-24] MEDS: Cholecalciferol (Vitamin D3) 25 MCG TABLET 50 MCG PO (08:48)
[2022-05-24 08:51] VITALS: BP 109/65; PULSE 81; RESP 18; TEMP 36.2; O2SAT 96
[2022-05-24 09:01] LABS: Creatinine Clr Calc Pharmacy 116.6; Estimated Glomerular Filt Rate > 60
--- NOTE | 2022-05-24 22:15 | P.DS_ITS ---
DS: Providers Provider Date of Service: 05/24/22 Date of admission: 03/22/22 14:20 Date of discharge: 05/24/22 Primary care physician: Nonstaff Physician Admitting clinician: Orin Johnson Attending physician on admission: Dewayne Azar Consults: 05/14/22 13:22 Consult to General Surgery Routine Consulting Provider: Genevieve Gabriel Reason for consultation: LRQ abscess and inner thigh-warm, red, painful for pt Has provider been notified: No Attending physician on discharge: Dewayne Azar Discharging clinician: Orin Johnson DS: Diagnosis Discharge Diagnosis (1) Cellulitis, abdominal wall: Status: Acute (2) MDD (major depressive disorder), recurrent severe, without psychosis: Status: Acute (3) PTSD (post-traumatic stress disorder): Status: Acute DS: Medications Discharge Medications Home Medications: Previous Rx's Medication Instructions Recorded Super B Complex 1 tab PO DAILY #30 tabs 05/23/22 alprazolam 0.5 mg tablet 1 mg PO QID PRN Anxiety #60 tabs 05/23/22 alprazolam 1 mg tablet 1 tab PO QID PRN Anxiety #30 tabs 05/23/22 cholecalciferol (vitamin D3) 25 50 mcg PO DAILY #60 tabs 05/23/22 mcg (1,000 unit) tablet cholecalciferol (vitamin D3) 50 50 mcg PO DAILY #30 caps 05/23/22 mcg (2,000 unit) capsule (Vitamin D3) dextroamphetamine-amphetamine 10 10 mg PO 1400 #30 tabs 05/23/22 mg tablet doxycycline monohydrate 100 mg 100 mg PO Q12H #12 caps 05/23/22 capsule fluticasone propionate 50 1 spray intranasal DAILY #1 inhaler 05/23/22 mcg/actuation nasal spray,suspension lithium carbonate 300 mg 600 mg PO BID #120 tabs 05/23/22 tablet,extended release melatonin 3 mg tablet 12 mg PO BEDTIME #120 tabs 05/23/22 nicotine (polacrilex) 2 mg gum 2 mg buccal Q2H PRN nicotine 05/23/22 withdrawal #40 ea nicotine 14 mg/24 hr daily 14 mg transdermal DAILY #28 ea 05/23/22 transdermal patch prazosin 2 mg capsule 4 mg PO BEDTIME #60 caps 05/23/22 prazosin 5 mg capsule 14 mg PO BEDTIME #60 caps 05/23/22 trazodone 100 mg tablet 300 mg PO BEDTIME #90 tabs 05/23/22 ziprasidone HCl 80 mg capsule 80 mg PO BEDTIME #30 caps 05/23/22 dextroamphetamine-amphetamine ER 30 mg PO QAM #30 caps 05/24/22 30 mg 24hr capsule,extend release (Adderall XR) Mental Status Exam Mental Status Exam Patient Appearance: Fatigued Patient Orientation: Person, Place, Time and Situation Level of Consciousness: Alert Patient Behavior: Appropriate, Talkative, Cooperative and Good Eye Contact Mood Description: Depressed Affect Description: Flat Patient Cognition Impaired: No Ability to Follow Directions: Good Speech Pattern: Spontaneous Speech Memory Description: Intact Hallucinations: None Delusions: Not Present Perceptual Disturbances: Depersonalization and Derealization Thought Process: Distracted Thought Content: positive for Circumstantial Depressive Symptoms: Increased Anxiety and Increased Irritability Judgement: Fair Data Data Completed and Pending Completed studies during hospitalization [Text1]: 05/18/22 05/18/22 05/19/22 08:33 15:15 08:25 WBC RBC Hgb Hct MCV MCH MCHC RDW Plt Count MPV Immature Gran % (Auto) Neut % (Auto) Lymph % (Auto) [place] % (Auto) Eos % (Auto) Baso % (Auto) Lymph # (Auto) [place] # (Auto) Eos # (Auto) Baso # (Auto) Abs Immat Gran (auto) Absolute Neuts (auto) Absolute Nucleated RBC Nucleated RBC % (auto) Sodium Potassium Chloride Carbon Dioxide Anion Gap BUN Creatinine 0.82 0.84 Estim Creat Clear Calc 122.3 119.4 Estimated GFR > 60 > 60 Random Glucose Calcium Total Bilirubin AST ALT Alkaline Phosphatase Total Protein Albumin Vancomycin Trough 13.3 [place] 05/20/22 05/21/22 05/21/22 08:33 08:52 08:52 WBC 6.7 RBC 4.11 L Hgb 12.3 Hct 36.4 L MCV 88.6 MCH 29.9 MCHC 33.8 RDW 12.7 Plt Count 384 D MPV 9.3 L Immature Gran % (Auto) 0.4 Neut % (Auto) 61.0 Lymph % (Auto) 30.1 [place] % (Auto) 4.9 Eos % (Auto) 3.3 Baso % (Auto) 0.3 Lymph # (Auto) 2.0 [place] # (Auto) 0.3 Eos # (Auto) 0.2 Baso # (Auto) 0.0 Abs Immat Gran (auto) 0.03 Absolute Neuts (auto) 4.1 Absolute Nucleated RBC 0.000 Nucleated RBC % (auto) 0.0 Sodium Potassium Chloride Carbon Dioxide Anion Gap BUN Creatinine 0.85 0.87 Estim Creat Clear Calc 118.0 115.3 Estimated GFR > 60 > 60 Random Glucose Calcium Total Bilirubin AST ALT Alkaline Phosphatase Total Protein Albumin Vancomycin Trough [place] 05/21/22 05/21/22 05/22/22 08:52 08:52 06:36 WBC RBC Hgb Hct MCV MCH MCHC RDW Plt Count MPV Immature Gran % (Auto) Neut % (Auto) Lymph % (Auto) [place] % (Auto) Eos % (Auto) Baso % (Auto) Lymph # (Auto) [place] # (Auto) Eos # (Auto) Baso # (Auto) Abs Immat Gran (auto) Absolute Neuts (auto) Absolute Nucleated RBC Nucleated RBC % (auto) Sodium 142 Potassium 4.8 Chloride 109 H Carbon Dioxide 24 Anion Gap 14 BUN 9 Creatinine 0.85 0.87 Estim Creat Clear Calc 118.0 115.3 Estimated GFR > 60 > 60 Random Glucose 83 Calcium 9.1 Total Bilirubin 0.3 AST 14 ALT 17 Alkaline Phosphatase 56 Total Protein 5.9 L Albumin 3.6 Vancomycin Trough [place] 0.91 05/23/22 05/24/22 07:16 08:11 WBC RBC Hgb Hct MCV MCH MCHC RDW Plt Count MPV Immature Gran % (Auto) Neut % (Auto) Lymph % (Auto) [place] % (Auto) Eos % (Auto) Baso % (Auto) Lymph # (Auto) [place] # (Auto) Eos # (Auto) Baso # (Auto) Abs Immat Gran (auto) Absolute Neuts (auto) Absolute Nucleated RBC Nucleated RBC % (auto) Sodium Potassium Chloride Carbon Dioxide Anion Gap BUN Creatinine 0.92 0.86 Estim Creat Clear Calc 109.1 116.6 Estimated GFR > 60 > 60 Random Glucose Calcium Total Bilirubin AST ALT Alkaline Phosphatase Total Protein Albumin Vancomycin Trough [place] Imaging Diagnostic Imaging Impressions Head CT 05/12/22 13:34 IMPRESSION: 1. No acute intracranial process seen. 2. Moderate-sized polyp or retention cyst right maxillary sinus. 3. There are multiple small subcutaneous lesions in the scalp, ? sebaceous cyst versus Warts. These have slightly increased in size since previous CT 03/17/2021 DS: Summary Hospital Course Hospital Course: Admission to adult psychiatry for exacerbation of symptoms of PTSD and Recurrent Major Depression. Specific precipitants include anniversary of the loss of a child she was to co-parent with a friend, therapist moving from the area and needing to change their therapy to all telehealth, and family discord around holidays. Pt experienced acute SI and required much time on one to one specialing. She also, during admission, developed COVID-19 and abdominal wall cellulitis, causing increase in stress to manage both of these medical issues. Milieu and individual work were most useful. Some medication changes to help acute symptoms were helpful for brief periods of time. Pt was a full participant in her plan of care and with the exception of a few instances, was able to ass ist in honest communication of her safety needs to the team. Time spent discussing smoking cessation with patient: 3 to 10 minutes Status at Discharge Functional status at discharge: independent ambulation Overall status at discharge: patient is progressing back to baseline Time Spent with Patient Time attestation: Total time managing care of this patient today 35 minutes. Time spent: Greater than 30 minutes Discharge Plan Discharge Anticipated Discharge Date/Time: 05/24/22 11:58 Patient Disposition: Home, Self-Care Discharge Diagnosis: PTSD Recurrent Major Depression, Severe Resolving Abdominal Wall Cellulitis Referrals: Amelia MORSE [Other] - 05/25/22 (fax- [phone]) Psych Prescriber: Nathen Bolaños ([employer]) [Other] - 06/22/22 10:30 am (Telehealth ) Therapist: Iesha Arguello [Other] - 05/24/22 3:00 pm (Telehealth ) Psych Prescriber: Nathen Bolaños ([employer]) [Other] - 05/26/22 3:00 pm (Telehealth ) Psych Prescriber: Nathen Bolaños ([employer]) [Other] - 07/21/22 3:00 pm (Telehealth ) [facility] Hand Sewer Shoes: Lester Wray ([facility]) [Other] - 1 Week (Lester will call you to schedule a check-in ) [facility] [Other] (walk in if needed) Discharge Medications: New doxycycline monohydrate 100 mg Capsule 100 mg PO Q12H Qty: 12 0RF lithium carbonate 300 mg Tablet Extended Release 600 mg PO BID Qty: 120 0RF dextroamphetamine-amphetamine 10 mg Tablet 10 mg PO 1400 Qty: 30 0RF Rx Instructions: Partial Fill upon patient request. alprazolam 0.5 mg Tablet 1 mg PO QID PRN (Reason: Anxiety) Qty: 60 0RF trazodone 100 mg Tablet 300 mg PO BEDTIME Qty: 90 0RF ziprasidone HCl 80 mg Capsule 80 mg PO BEDTIME Qty: 30 0RF fluticasone propionate 50 mcg/actuation [place],Suspension 1 spray intranasal DAILY Qty: 1 0RF melatonin 3 mg Tablet 12 mg PO BEDTIME Qty: 120 0RF cholecalciferol (vitamin D3) 25 mcg (1,000 unit) Tablet 50 mcg PO DAILY Qty: 60 0RF Super B Complex 1 tab PO DAILY Qty: 30 1RF prazosin 2 mg capsule 4 mg PO BEDTIME Qty: 60 0RF dextroamphetamine-amphetamine [Adderall XR] 30 mg capsule,extended release 24hr 30 mg PO QAM Qty: 30 0RF Rx Instructions: Partial Fill upon patient request. Continued nicotine 14 mg/24 hr Patch 24 Hour 14 mg transdermal DAILY Qty: 28 0RF alprazolam 1 mg tablet 1 tab PO QID PRN (Reason: Anxiety) Qty: 30 1RF nicotine (polacrilex) 2 mg Gum 2 mg buccal Q2H PRN (Reason: nicotine withdrawal) Qty: 40 0RF prazosin 5 mg capsule 14 mg PO BEDTIME Qty: 60 0RF Changed cholecalciferol (vitamin D3) [Vitamin D3] 50 mcg (2,000 unit) capsule 50 mcg PO DAILY Qty: 30 0RF Discontinued benztropine 0.5 mg tablet 1 tab PO BID trazodone 50 mg tablet 1 tab PO BEDTIME thiamine HCl (vitamin B1) 100 mg tablet 1 tab PO DAILY lithium carbonate 300 mg tablet extended release 2 tab PO BID melatonin 3 mg tablet 9 mg PO BEDTIME dextroamphetamine-amphetamine 20 mg tablet 1 tab PO DAILY prazosin 2 mg capsule 1 cap PO BID desvenlafaxine succinate 100 mg tablet extended release 24 hr 1 tab PO DAILY Discharge Orders: Discharge Order (Routine); Ordered 05/24/22 Ordered By: Orin Johnson Diet: Advance to usual diet Activity on Discharge: As tolerated Stand Alone Forms: Patient Portal Discharge page, Community Support Care Plan Goals: Mood and Behavior Stability Health Concerns: Mood and Behavior Stability Healing Cellulitis Plan of Treatment: Connect with out patient providers Take medications as directed Call and or return as needed Assessment: non psychotic, non suicidal, non homicidal, non manic Discharge Date/Time: 05/24/22 11:18
== END 2022-05-24 11:18 | disposition home or self-care (01) | DRG 885 ==
LOC: HO.ED 07:12 → HO.PM5 03-22 14:40
PROVIDERS: Social Worker; Surgery; Admitting Provider Psychiatry & Neurology Psychiatry; Emergency Provider Emergency Medicine; Visit Provider Clinical Nurse Specialist Psychiatric/Mental Health, Adult
DX: F33.2 Major depressive disorder, recurrent severe without psychotic features (principal); U07.1 COVID-19; R45.851 Suicidal ideations; L03.311 Cellulitis of abdominal wall; L03.314 Cellulitis of groin; F43.10 Post-traumatic stress disorder, unspecified; F17.210 Nicotine dependence, cigarettes, uncomplicated; Z71.6 Tobacco abuse counseling; Z88.2 Allergy status to sulfonamides; Z88.8 Allergy status to other drugs, medicaments and biological substances; Z79.51 Long term (current) use of inhaled steroids; Z79.899 Other long term (current) drug therapy; Z91.51 Personal history of suicidal behavior
CPT/HCPCS: 36415; 70450; 80048; 80053; 80061; 80143; 80178; 80179; 80202; 80307; 81003; 81025; 82077; 82565; 82607; 82746; 83036; 83735; 84439; 84443; 85025; 87635; 87651; 90686; 93005; 96372; 99285; J2060; J3370

== ENCOUNTER 2022-10-04 08:59 | Emergency (ER) | payer OTHER, SELFPAY ==
--- NOTE | 2022-10-04 09:30 | MHC.EDTECH ---
Patient changed over. This ad writer had patient shake out underwear, bra and under the feet. Nothing was visible or fell out. Staff will keep a close eye on patient to make sure there is nothing at her access for an opportunity to harm them self.
[2022-10-04 09:39] VITALS: BP 122/78; PULSE 89; RESP 18; TEMP 36.6; O2SAT 96; BMI 44.4
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
--- NOTE | 2022-10-04 10:27 | PHA.MEDREC ---
Pharmacy Consult ? Medication Reconciliation Pharmacy has completed the medication reconciliation. Spoke with patient.
--- NOTE | 2022-10-04 14:23 | ED.PSYCH ---
HPI - Psych General Chief Complaint: Psychiatric Symptoms Stated Complaint: Crisis Time Seen by Provider: 10/04/22 10:00 Source: patient Mode of arrival: ambulatory Limitations: no limitations History of Present Illness HPI Narrative: 37-year-old female (uses pronouns they and them) who presents emergency department for evaluation of suicidal ideation. The patient told me that she does not know how to be alive anymore. She states she has been feeling suicidal for several weeks. They states that they have a planned overdose but they does not care how they does it. The patient denies being ill in any way, they denied fever, chills, chest pain, shortness of breath, nausea, vomiting or diarrhea. Related Data Home Medications Medication Instructions Recorded Confirmed acetaminophen 500 mg tablet 1,000 mg PO DAILY PRN Pain 09/24/22 10/04/22 alprazolam 1 mg tablet 1 mg PO TID PRN Anxiety 09/24/22 10/04/22 cyanocobalamin (vitamin B-12) 1,000 mcg PO DAILY 09/24/22 10/04/22 1,000 mcg tablet desvenlafaxine succinate 100 mg 100 mg PO DAILY 09/24/22 10/04/22 tablet,extended release 24 hr lithium carbonate 300 mg tablet 600 mg PO BID 09/24/22 10/04/22 prazosin 5 mg capsule 10 mg PO BEDTIME 09/24/22 10/04/22 trazodone 100 mg tablet 200 mg PO BEDTIME 09/24/22 10/04/22 fluticasone propionate 50 1 spray intranasal DAILY PRN 10/04/22 10/04/22 mcg/actuation nasal Allergy Symptoms spray,suspension Previous Rx's Medication Instructions Recorded Super B Complex 1 tab PO DAILY #30 tabs 05/23/22 cholecalciferol (vitamin D3) 25 50 mcg PO DAILY #60 tabs 05/23/22 mcg (1,000 unit) tablet dextroamphetamine-amphetamine 10 10 mg PO 1400 #30 tabs 05/23/22 mg tablet melatonin 3 mg tablet 12 mg PO BEDTIME #120 tabs 05/23/22 prazosin 2 mg capsule 4 mg PO BEDTIME #60 caps 05/23/22 ziprasidone HCl 80 mg capsule 80 mg PO BEDTIME #30 caps 05/23/22 dextroamphetamine-amphetamine ER 30 mg PO QAM #30 caps 05/24/22 30 mg 24hr capsule,extend release (Adderall XR) Allergies Allergy/AdvReac Type Severity Reaction Status Date / Time Sulfa (Sulfonamide Allergy Unknown Hives Verified 10/04/22 09:42 Antibiotics) [SULFA (SULFONAMIDE ANTIBIOTICS)] sulfamethoxazole Allergy Unknown Hives Verified 10/04/22 09:42 [From BACTRIM] trimethoprim [From BACTRIM] Allergy Unknown Hives Verified 10/04/22 09:42 lurasidone [From Latuda] AdvReac Intermediate anger, rage Verified 10/04/22 09:42 oseltamivir [From Tamiflu] AdvReac Sensation Verified 10/04/22 09:42 of bugs crawling on skin. lavender Allergy Severe Hives Uncoded 10/04/22 09:42 Review of Systems Review of Systems: Yes all other systems are reviewed and are negative [facility] Past Medical History [facility] Narrative: Social history: They denied alcohol, and tobacco use, they do vape marijuana products Medical History Dermoid cyst PTSD (post-traumatic stress disorder) Social History Social History Household Members: Other Household Members Other:: Rommate Housing: Apartment Housing Other:: downstairs landlord Do you presently have visiting nurse or other home services: Yes Alcohol intake: current Alcohol intake frequency: 0-2 drinks per day Patient Tobacco Use Status: Current everyday Tobacco user Tobacco use type: Cigarette Cigarette Packs Per Day: 0.5 Cigarettes Per Day: 10.0 Years Smoked: 20 e-Cigarette/Vaping Use: Never Used Patient Interested in Nicotine Replacement: Yes Patient Given Instructions on How to Stop Smoking: No Second Hand Smoke Exposure: Yes Substance Use Type: Marijuana Do you have thoughts of harming others: None service: No Sexual orientation: Did not discuss Physical Exam Vital Signs: Vital Signs: Last Vital Signs Temp 97.6 F 10/04/22 21:43 Pulse 68 10/04/22 21:43 Resp 18 10/05/22 05:00 BP 138/79 10/04/22 21:43 Pulse Ox 95 10/04/22 21:43 O2 Del Method Room Air 10/04/22 21:43 BMI result Body Mass Index 44.4 Const: General: cooperative and no acute distress Orientation/consciousness: oriented to person and oriented to place Limitations: no limitations HEENT: Head: Yes normal to inspection, Yes normocephalic and Yes atraumatic Ears: external ears normal General nose exam: Normal external nose present Face and sinus: Yes normal facial exam Mouth: Normal oral and palatal mucosa present Throat: Yes posterior oropharynx normal Eyes: General: appearance normal, both eyes and all related structures Pupils: Equal, round and reactive pupils present Neck: Neck: Yes normal visual inspection, Yes no lymphadenopathy, Yes trachea midline and Yes supple Chest: Chest palpation & inspection: normal inspection of the chest and normal palpation of entire chest wall Resp: Effort & Inspection: normal respiratory effort and able to speak in complete sentences Auscultation: clear to auscultation bilaterally Cardio: Rate: regular rate Rhythm: regular rhythm Heart sounds: S1 normal heart sound present, S2 normal heart sound present and no murmurs GI: Inspection: Yes normal to inspection Palpation (GI): Soft to palpation, nontender and no guarding Auscultation: normal bowel sounds : General: Yes no CVA tenderness Back/Spine/Pelvis: Back: no CVA tenderness Skin: General skin exam: no rashes or lesions noted Neuro: General: oriented to person and oriented to place Cranial nerves: Yes CN's II-XII intact bilaterally and Yes Equal, round and reactive pupils present Cognition (Neuro): normal cognition Motor exam (neuro): 5/5 motor strength present throughout Extrem: General: Yes normal to inspection Psych: Appearance: grossly normal Speech and movement: Normal speech and movement present Affect: Sad affect present Attitude: cooperative Thought content: Suicidality present and no homicidality Medications Administered Generic Name Dose Route Start Last Admin Trade Name Freq PRN Reason Stop Dose Admin Alprazolam 1 mg 10/04/22 20:59 10/04/22 21:41 Alprazolam 0.5 Mg Tablet PO 1 mg TID PRN Administration Anxiety Donovan Carbonate 600 mg 10/04/22 21:00 10/04/22 21:41 Donovan Carbonate 300 Mg Capsule PO 600 mg BID LACEY Administration Melatonin 12 mg 10/04/22 21:00 10/04/22 21:41 Melatonin 3 Mg Tablet PO 12 mg BEDTIME LACEY Administration Prazosin HCl 4 mg 10/04/22 21:00 10/04/22 21:41 Prazosin Hcl 1 Mg Capsule PO 4 mg BEDTIME LACEY Administration Protocol Prazosin HCl 10 mg 10/04/22 21:00 10/04/22 21:41 Prazosin Hcl 5 Mg Capsule PO 10 mg BEDTIME LACEY Administration Protocol Trazodone HCl 200 mg 10/04/22 21:00 10/04/22 21:41 Trazodone Hcl 100 Mg Tablet PO 200 mg BEDTIME LACEY Administration Ziprasidone 80 mg 10/04/22 21:00 10/04/22 21:42 Ziprasidone 80 Mg Capsule PO 80 mg BEDTIME LACEY Administration Medical Decision Making Medical Decision Making [facility] Narrative: 37-year-old female who presents emergency department for evaluation of suicidal ideation x2 weeks with a plan to overdose. 1428: Laboratory evaluation was significant for urine tox screen which was positive for benzodiazepines and amphetamines-these are secondary to medications that she is prescribed. Patient is medically cleared for care team evaluation. Patient's medications were reconciled and I did order her outpatient regimen. At the end of my shift, the patient's care was turned over to my colleague, Dr.Anwer Becker Differential Diagnosis Differential diagnosis includes but is not limited to depression, anxiety, suicidal ideation, electrolyte abnormality, anemia, substance use disorder Admission/Observation Consideration of admission/observation: Escalation of care including admission/observation considered Lab Data [facility] Lab Attestation statement: I reviewed the patient's lab results. My interpretation patient's laboratory evaluation is as follows: CBC and CMP were normal. Urine test was negative. Acetaminophen and salicylate levels were below detectable limits. Urinalysis was positive for blood and leukocyte esterase. Microscopic revealed greater than 20 RBCs, no WBCs, greater than 20 squamous cells, 1+ bacteria-this is a non clean catch specimen and does not represent infection. Urine test was negative. 10/04/22 10:39 10/04/22 10:39 Labs: Lab Results 10/04/22 10/04/22 10/04/22 Range/Units 10:11 10:11 10:11 WBC (4.8-10.8) X10*3/uL RBC (4.20-5.50) X10*6/uL Hgb (12.0-16.0) g/dl Hct (37.0-47.0) % MCV (80.0-98.0) fL MCH (27.0-33.0) pg MCHC (31.0-35.0) g/dl RDW (11.0-16.0) % Plt Count (160-400) X10*3/uL MPV (9.4-12.3) fL Immature Gran % (Auto) (0.0-0.4) % Neut % (Auto) (45-73) % Lymph % (Auto) (20-40) % Iron % (Auto) (2-11) % Eos % (Auto) (0-4) % Baso % (Auto) (0-2) % Lymph # (Auto) (1.2-4.9) X10*3/uL Iron # (Auto) (0.1-1.2) X10*3/uL Eos # (Auto) (0.0-0.4) X10*3/uL Baso # (Auto) (0.0-0.2) X10*3/uL Abs Immat Gran (auto) (0.00-0.03) X10*3/uL Absolute Neuts (auto) (2.0-8.3) x10*3/uL Absolute Nucleated RBC (0.0-0.012) X10*3/uL Nucleated RBC % (auto) (0.0-0.2) /100WBC Sodium (135-145) mmol/L Potassium (3.3-5.1) mmol/L Chloride (96-108) mmol/L Carbon Dioxide (22-29) mmol/L Anion Gap (12-20) BUN (9-16) mg/dL Creatinine (0.5-1.4) mg/dL Estim Creat Clear Calc Estimated GFR Random Glucose (60-115) mg/dL Calcium (8.4-10.2) mg/dL Total Bilirubin (0.0-1.0) mg/dL AST (5-31) U/L ALT (0-31) U/L Alkaline Phosphatase (39-117) U/L Total Protein (6.5-8.0) g/dL Albumin (3.5-5.0) g/dL Urine Color Yellow Urine Appearance Cloudy Urine pH 6.5 (5.0-9.0) Ur Specific [place] 1.010 (1.005-1.025) Urine Protein Negative (Neg-Trace) mg/dL Urine Glucose (UA) Negative (Negative) mg/dL Urine Ketones Negative (Negative) mg/dL Urine Blood Large (3+) H (Negative) Urine Nitrite Negative (Negative) Ur Leukocyte Esterase Trace H (Negative) Urine RBC >20 H (0-2) /HPF Urine WBC 0-5 (0-5) /HPF Ur Squamous Epith Cells >20 (0-2) /HPF Urine Bacteria 1+ (None Seen) Hyaline Casts 0-2 (0-2) /LPF Urine Test NEGATIVE (NEGATIVE) Salicylates (15-30) mg/dL Urine Opiates Screen (Not Detect) Urine Fentanyl Screen (Not Detect) Acetaminophen (<30) mcg/mL Ur Barbiturates Screen (Not Detect) Ur Phencyclidine Scrn (Not Detect) Ur Amphetamines Screen (Not Detect) U Benzodiazepines Scrn (Not Detect) Urine Cocaine Screen (Not Detect) U Marijuana (THC) Screen (Not Detect) Ethyl Alcohol mg/dL COVID-19 (HANK) Negative (Negative) COVID-19 Clin Com See Note 10/04/22 10/04/22 10/04/22 Range/Units 10:11 10:39 10:39 WBC 8.7 (4.8-10.8) X10*3/uL RBC 4.42 (4.20-5.50) X10*6/uL Hgb 13.2 (12.0-16.0) g/dl Hct 40.2 (37.0-47.0) % MCV 91.0 (80.0-98.0) fL MCH 29.9 (27.0-33.0) pg MCHC 32.8 (31.0-35.0) g/dl RDW 13.7 (11.0-16.0) % Plt Count 291 (160-400) X10*3/uL MPV 10.0 (9.4-12.3) fL Immature Gran % (Auto) 0.3 (0.0-0.4) % Neut % (Auto) 70.9 (45-73) % Lymph % (Auto) 22.5 (20-40) % Iron % (Auto) 4.6 (2-11) % Eos % (Auto) 1.5 (0-4) % Baso % (Auto) 0.2 (0-2) % Lymph # (Auto) 2.0 (1.2-4.9) X10*3/uL Iron # (Auto) 0.4 (0.1-1.2) X10*3/uL Eos # (Auto) 0.1 (0.0-0.4) X10*3/uL Baso # (Auto) 0.0 (0.0-0.2) X10*3/uL Abs Immat Gran (auto) 0.03 (0.00-0.03) X10*3/uL Absolute Neuts (auto) 6.2 (2.0-8.3) x10*3/uL Absolute Nucleated RBC 0.000 (0.0-0.012) X10*3/uL Nucleated RBC % (auto) 0.0 (0.0-0.2) /100WBC Sodium 139 (135-145) mmol/L Potassium 4.5 (3.3-5.1) mmol/L Chloride 109 H (96-108) mmol/L Carbon Dioxide 22 (22-29) mmol/L Anion Gap 13 (12-20) BUN 7 L (9-16) mg/dL Creatinine 0.89 (0.5-1.4) mg/dL Estim Creat Clear Calc 117.9 Estimated GFR > 60 Random Glucose 110 (60-115) mg/dL Calcium 9.3 (8.4-10.2) mg/dL Total Bilirubin 0.3 (0.0-1.0) mg/dL AST 20 (5-31) U/L ALT 22 (0-31) U/L Alkaline Phosphatase 55 (39-117) U/L Total Protein 6.4 L (6.5-8.0) g/dL Albumin 3.8 (3.5-5.0) g/dL Urine Color Urine Appearance Urine pH (5.0-9.0) Ur Specific [place] (1.005-1.025) Urine Protein (Neg-Trace) mg/dL Urine Glucose (UA) (Negative) mg/dL Urine Ketones (Negative) mg/dL Urine Blood (Negative) Urine Nitrite (Negative) Ur Leukocyte Esterase (Negative) Urine RBC (0-2) /HPF Urine WBC (0-5) /HPF Ur Squamous Epith Cells (0-2) /HPF Urine Bacteria (None Seen) Hyaline Casts (0-2) /LPF Urine Test (NEGATIVE) Salicylates (15-30) mg/dL Urine Opiates Screen Not Detected (Not Detect) Urine Fentanyl Screen Not Detected (Not Detect) Acetaminophen (<30) mcg/mL Ur Barbiturates Screen Not Detected (Not Detect) Ur Phencyclidine Scrn Not Detected (Not Detect) Ur Amphetamines Screen POSITIVE H (Not Detect) U Benzodiazepines Scrn POSITIVE H (Not Detect) Urine Cocaine Screen Not Detected (Not Detect) U Marijuana (THC) Screen Not Detected (Not Detect) Ethyl Alcohol < 10 mg/dL COVID-19 (HANK) (Negative) COVID-19 Clin Com 10/04/22 Range/Units 10:39 WBC (4.8-10.8) X10*3/uL RBC (4.20-5.50) X10*6/uL Hgb (12.0-16.0) g/dl Hct (37.0-47.0) % MCV (80.0-98.0) fL MCH (27.0-33.0) pg MCHC (31.0-35.0) g/dl RDW (11.0-16.0) % Plt Count (160-400) X10*3/uL MPV (9.4-12.3) fL Immature Gran % (Auto) (0.0-0.4) % Neut % (Auto) (45-73) % Lymph % (Auto) (20-40) % Iron % (Auto) (2-11) % Eos % (Auto) (0-4) % Baso % (Auto) (0-2) % Lymph # (Auto) (1.2-4.9) X10*3/uL Iron # (Auto) (0.1-1.2) X10*3/uL Eos # (Auto) (0.0-0.4) X10*3/uL Baso # (Auto) (0.0-0.2) X10*3/uL Abs Immat Gran (auto) (0.00-0.03) X10*3/uL Absolute Neuts (auto) (2.0-8.3) x10*3/uL Absolute Nucleated RBC (0.0-0.012) X10*3/uL Nucleated RBC % (auto) (0.0-0.2) /100WBC Sodium (135-145) mmol/L Potassium (3.3-5.1) mmol/L Chloride (96-108) mmol/L Carbon Dioxide (22-29) mmol/L Anion Gap (12-20) BUN (9-16) mg/dL Creatinine (0.5-1.4) mg/dL Estim Creat Clear Calc Estimated GFR Random Glucose (60-115) mg/dL Calcium (8.4-10.2) mg/dL Total Bilirubin (0.0-1.0) mg/dL AST (5-31) U/L ALT (0-31) U/L Alkaline Phosphatase (39-117) U/L Total Protein (6.5-8.0) g/dL Albumin (3.5-5.0) g/dL Urine Color Urine Appearance Urine pH (5.0-9.0) Ur Specific [place] (1.005-1.025) Urine Protein (Neg-Trace) mg/dL Urine Glucose (UA) (Negative) mg/dL Urine Ketones (Negative) mg/dL Urine Blood (Negative) Urine Nitrite (Negative) Ur Leukocyte Esterase (Negative) Urine RBC (0-2) /HPF Urine WBC (0-5) /HPF Ur Squamous Epith Cells (0-2) /HPF Urine Bacteria (None Seen) Hyaline Casts (0-2) /LPF Urine Test (NEGATIVE) Salicylates < 5.0 L (15-30) mg/dL Urine Opiates Screen (Not Detect) Urine Fentanyl Screen (Not Detect) Acetaminophen < 17 (<30) mcg/mL Ur Barbiturates Screen (Not Detect) Ur Phencyclidine Scrn (Not Detect) Ur Amphetamines Screen (Not Detect) U Benzodiazepines Scrn (Not Detect) Urine Cocaine Screen (Not Detect) U Marijuana (THC) Screen (Not Detect) Ethyl Alcohol mg/dL COVID-19 ([facility]ANK) (Negative) COVID-19 Clin Com Chronic Conditions Patient?s care impacted by: Other (Depression, anxiety, PTSD) Discharge Plan Discharge Clinical Impression: Suicidal ideation Patient Disposition: Still a Patient Prescriptions: No Action dextroamphetamine-amphetamine 10 mg Tablet 10 mg PO 1400 Qty: 30 0RF Rx Instructions: Partial Fill upon patient request. ziprasidone HCl 80 mg Capsule 80 mg PO BEDTIME Qty: 30 0RF melatonin 3 mg Tablet 12 mg PO BEDTIME Qty: 120 0RF cholecalciferol (vitamin D3) 25 mcg (1,000 unit) Tablet 50 mcg PO DAILY Qty: 60 0RF Super B Complex 1 tab PO DAILY Qty: 30 1RF prazosin 2 mg capsule 4 mg PO BEDTIME Qty: 60 0RF dextroamphetamine-amphetamine [Adderall XR] 30 mg capsule,extended release 24hr 30 mg PO QAM Qty: 30 0RF Rx Instructions: Partial Fill upon patient request. fluticasone propionate 50 mcg/actuation spray,suspension 1 spray intranasal DAILY PRN (Reason: Allergy Symptoms) prazosin 5 mg capsule 10 mg PO BEDTIME lithium carbonate 300 mg tablet 600 mg PO BID Rx Instructions: Take 2 tabs BID. alprazolam 1 mg tablet 1 mg PO TID PRN (Reason: Anxiety) acetaminophen 500 mg Tablet 1,000 mg PO DAILY PRN (Reason: Pain) desvenlafaxine succinate 100 mg tablet extended release 24 hr 100 mg PO DAILY trazodone 100 mg tablet 200 mg PO BEDTIME cyanocobalamin (vitamin B-12) 1,000 mcg tablet 1,000 mcg PO DAILY Interventions: [place]-Suicide Risk Severity Scale Last Done: 10/05/22 06:41
--- NOTE | 2022-10-04 17:21 | PC.NURSE ---
pt walked out of her room and stated I would like to kill myself so if you could get me my discharge paperwork I would like to go do that . CARE team made aware
--- NOTE | 2022-10-04 18:39 | PC.NURSE ---
late entry at approx 1730 pt was having a conversation with the CARE team, pt made a statement about a bag of pills she had on her person. this card writer hand called security and this card writer hand, as well as another nurse went into pts room and questioned her on the statement she had made to the CARE team - pt at that point took a small sandwhich bag from underneather her leg an threw them at this card writer hand. pt reported I want those back before I leave, get the fuck out! . t/w pressed pt further about having anything else on her person. pt kept screaming to get the fuck out . shortly after pt took out a cling wrap from a sandwhich and placed it over her face. easily gave it to staff when redirected. pt educated to lkeep her face uncovered from the blanket, she screamed oh my god mariano demetrius just get the fuck out and leave me alone informed pt her behavior will not be tolerated and she needs to pull the blanket off her face.
[2022-10-04 18:48] VITALS: BP 147/88; PULSE 79; RESP 20; TEMP 36.9; O2SAT 98
--- NOTE | 2022-10-04 19:05 | MHC.CARE ---
patient will be seen for a follow up/ psych consult tomorrow 10/05/22
[2022-10-04 21:43] VITALS: BP 138/79; PULSE 68; RESP 18; TEMP 36.4; O2SAT 95
[2022-10-05 05:00] VITALS: RESP 18
--- NOTE | 2022-10-05 06:47 | PC.NURSE ---
Patient slept through the night, no distress observed/reported, medication compliant, behavior non concerning, care team disposition pending psych consult, VSS, will continue to monitor.
--- NOTE | 2022-10-05 10:51 | PC.NURSE ---
Patient was observed ripping lining out of kirk staff intervened and removed lining from kikr. Security also came in and examined patients hair for anything metal/sharp.
--- NOTE | 2022-10-05 15:20 | PC.NURSE ---
appears to be sleeping in bed, respirations even and unlabored.
[2022-10-05 19:55] VITALS: BP 137/79; PULSE 72; RESP 17; TEMP 36.9; O2SAT 97
--- NOTE | 2022-10-05 20:01 | PC.NURSE ---
Patient tearful and tremulous, endorsing SI secondary to not been able to go inpatient, requested her HS medication earlier, medication administered as ordered, patient awiting psych consult and disposition by care team will be based on the psych consult report. VSS, behavior consistent with her Dx, patient trying hard to control her emotions, will continue to monitor.
--- NOTE | 2022-10-06 05:56 | PC.NURSE ---
Patient slept through the night, no distress observed/reported, disposition pending psych consult, medication compliant, mood depressed and emotionally labile, behavior non concerning but unpredictable, VSS, labs completed/resulted, will continue to monitor.
[2022-10-06 06:24] VITALS: BP 107/53; PULSE 65; RESP 18; TEMP 37.2; O2SAT 96
--- NOTE | 2022-10-06 11:55 | PC.NURSE ---
Pt reporting she feels safe and would like Care Team notified. Pt wants to be discharged. Care Team notified.
--- NOTE | 2022-10-06 12:48 | MHC.CARE ---
left VM with patient's providers, specifically Iesha Arguello, patients therapist as well as Lester Mathew from [facility] office, informing them of a patient of theirs who was boarding, having requested d/c, reported they can be safe and leaving the ED.
== END 2022-10-06 12:30 | disposition home or self-care (01) ==
PROVIDERS: Emergency Provider Emergency Medicine Emergency Medical Services; PCP Nurse Practitioner Primary Care
DX: R45.851 Suicidal ideations (principal); Z20.822 Contact with and (suspected) exposure to COVID-19; F44.9 Dissociative and conversion disorder, unspecified; F43.10 Post-traumatic stress disorder, unspecified; F17.210 Nicotine dependence, cigarettes, uncomplicated; F12.90 Cannabis use, unspecified, uncomplicated; Z79.899 Other long term (current) drug therapy
CPT/HCPCS: 80053; 80143; 80179; 80307; 81001; 81025; 85025; 87635; 99285; S9485

== ENCOUNTER → 2022-10-11 10:15 | Outpatient (BNV) | payer OTHER, SELFPAY | PROVIDERS: Visit Provider Psychiatry & Neurology Psychiatry | DX: F43.11 Post-traumatic stress disorder, acute (principal); F33.2 Major depressive disorder, recurrent severe without psychotic features; F44.9 Dissociative and conversion disorder, unspecified | CPT/HCPCS: 90792 ==

== ENCOUNTER 2022-10-12 10:15 | Outpatient (RCR) | payer OTHER, SELFPAY ==
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
--- NOTE | 2022-09-27 10:57 | HO.PHP ---
PHP staff met with Lisa at 10:35 AM. PHP staff explored with Lisa what was occurring. Lisa asked if I were the clinician that she is working with while here. PHP staff stated she is not and she will be meeting with Sharri. Lisa noted that she would like to go down to half days and asked how that could happen. PHP staff informed Lisa that we encourage everyone to attend full days since they are requiring a higher level of care and we want to help them stabilize. PHP staff assessed why Lisa is seeking half days. Lisa noted that she wants to attend her OP therapy appointments still and she doesn't want to leave her dog for 6 plus hours a day for 5 days a week. PHP staff was receptive and asked if she seeking half days everyday. Lisa noted just Tuesday and . Lisa reported on Tuesday she has her OP therapist at 3 PM but has her VNA come out to give her, her medication making it challenging to make it to the appointment, which is why she would need a half day. [facility] staff informed her that she has seen individuals have there VNA come to the program to give there medication so they can still complete the program and asked if she could ask her VNA if that is something they are comfortable with, as long as she is comfortable. Lisa disclosed that she will text her VNA to see and noted that if she is able to the only half day she would need is on because her OP therapy appointments are at 1:30 PM. PHP staff expressed that half days typically occur when we are stepping a client down and if they are IOP. PHP staff disclosed it is also dependent on her insurance, which she will need to discuss further with Sharri prior to her receiving an answer. Lisa was receptive and acknowledged she knows she needs the program but is finding it challenging with a whole new team and not seeing any familiar faces other then Sharri and Sofya. PHP staff was receptive and noted that she appreciates her attending even though there are new faces. Lisa talked about the previous clinician who left was her safe place and when she saw she wasn't here, she wanted to leave. Lisa was emotional. Lisa stated once October 06, 2022 comes around her mother will be back home and she knows she can utilize her to watch her dog if she needs a higher level of care. [facility] staff asked Lisa if she feels safe. Lisa noted she does and did not express any concerns. [facility] staff informed Lisa she will follow up with Sharri and have Sharri touch base with her tomorrow. Lisa was receptive.
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
--- NOTE | 2022-09-29 14:21 | HO.PHP ---
Sandi came in but was unable to stay because she didn't sleep and had difficulty keeping her eyes open. She requested to go home and stated that she was confident that she would be okay driving . She plans to return tomorrow
--- NOTE | 2022-10-01 15:38 | HO.PHP ---
When I met with the client to discuss her treatment plan she revealed that she has a plan to get though the weekend and on Tuesday ask Kyle to her her with a direct admission into the inpatient unit. I advised her to talk with Kyle on Tuesday although I wasn't sure that kyle could do a direct admission. She states she would talk with her and assured me that she will be safe this weekend because she will not harm herself when she has her dog with her.
--- NOTE | 2022-10-01 15:42 | HO.PHP ---
I spoke with the clients therapist Iesha SOW. We discussed the client's level of depression and chronic si and Vedas plan to go inpatient next week. Iesha states that it would be good if she would be admitted because she believes Sandi is not doing well.
--- NOTE | 2022-10-01 16:02 | HO.PHP ---
The clients case was reviewed and opened in treatment team.
--- NOTE | 2022-10-04 09:34 | PC.NURSE ---
Lisa came to the program this morning stating they need to go inpatient. They presented with depressed mood and flat affect. They are calm, alert and oriented. They report SI with plan to overdose on their medications. They stated they wrote goodbye notes to family. They came in with their bags packed and a pillow. They stated they have someone who can watch the puppy. Spoke to Angy on the [facility] Care Team and let her know of need of section 12 A and the above information. Sam RN in ED aware of above information. rn case manager Flores Rosas and Nimco Lopes aware of above information.
--- NOTE | 2022-10-04 13:40 | HO.PHP ---
[facility] staff assisted with bringing Lisa to the ED to be further assessed due to her expressing SI, plan, and intent. Lisa was able to walk down to the ED with the clinician with no issues.
--- NOTE | 2022-10-06 09:43 | PC.NURSE ---
As of this morning patient continues to be in the emergency room behavioral health pod being evaluated for SI.
--- NOTE | 2022-10-06 12:53 | PC.NURSE ---
Patient came to the program and was in my office, tearful stating she was in the emergency room and was discharged. She reported that she was told that inpatient hospitalization would not be helpful to her. She reports she wants to come back to the program. She denied any plans or intent to kill herself. Denied plans to overdose on her medications. She reports she plans on staying with he mother as she feels safe with her mother. She also stated she misses her puppy and is picking her puppy up today. She is planning on coming to [facility] tomorrow. Staff is aware.
--- NOTE | 2022-10-07 14:45 | PC.NURSE ---
Patient report that while they were in the behavioral health pod in the ER yesterday they self harmed by banging their head. They report they think they may have a concussion. Reports hitting their forehead. They stated they had a headache since yesterday. Stated their headache has lessened today. Also reports they vomited this morning. They were able to eat lunch without incident. Patient pupils are equal and reactive. Concentration is good. They are alert and oriented x4. No dizziness, no nausea, no visual disturbances, denied loss of consciousness. They stated they will not go to the emergency room. I suggested they could call their PCP to f/u. They agreed and called their PCP's office in my office. They told them the symptoms they are experiencing and wanted to make an appointment to f/u. Their PCP's office stated they would speak to the nurse and call them back regarding an appointment. I also reviewed with patient signs and symptoms of when to seek emergency care.
--- NOTE | 2022-10-08 14:40 | PC.NURSE ---
Patient reports they meet with their PCP to f/u with possible concussion from self harming behavior while in the ED pod. See previous notes. They stated they were advised to rest and they stated they will rest over the weekend.
--- NOTE | 2022-10-13 13:56 | HO.PHP ---
The client was sent by her therapist to [facility] for an assessment for inpatient hospitalization She is in the ED waiting for a bed.
--- NOTE | 2022-10-14 13:58 | HO.PHP ---
I spoke with the client today . She is still in the ED at [facility]. They will be taking her to the inpatient unit in a few minutes.
--- NOTE | 2022-10-15 08:36 | HO.PHP ---
I called and left a message for Iesha Arguello [facility] re clients discharge from [facility] due to inpatient admission.
--- NOTE | 2022-10-15 15:42 | HO.PHP ---
I left a message with the clients therapist Iesha Arguello [facility] re clients inpatient admission and discharge from [facility].
== END 2022-10-13 23:59 | disposition home or self-care (01) ==
LOC: HO.PHPA 10:15
PROVIDERS: Visit Provider Psychiatry & Neurology Psychiatry
DX: F43.10 Post-traumatic stress disorder, unspecified (principal); F33.2 Major depressive disorder, recurrent severe without psychotic features; F44.9 Dissociative and conversion disorder, unspecified
CPT/HCPCS: 90791; 90853

== ENCOUNTER 2024-01-29 22:14 | Inpatient (IN) | payer OTHER, SELFPAY ==
--- NOTE | ~2024-01-29 | CT_ITS ---
EXAMINATION: CT HEAD WITHOUT CONTRAST CLINICAL INFORMATION: Persistent head banging COMPARISON: May 12, 2022 TECHNIQUE: Contiguous axial imaging was performed from the skull base to vertex without intravenous administration of contrast. This CT examination was performed using dose optimization techniques as appropriate, variously including the following: *Automated exposure control *Adjustment of mA and/or kV according to patient size (this includes techniques or standardized protocols for targeted exams where dose is matched to indication/reason for exam; i.e. extremities or head) *Use of iterative reconstruction technique DLP: 882 mGy-cm FINDINGS: There is no interval change in appearance of normal intracranial structures, there is no evidence of infiltrate the cranial hemorrhage, masses, mass effect, midline shift no brain edema. The wilkinson-white matter differentiation is maintained. There is no evidence of fractures. Paranasal sinuses redemonstrated large mucous retention cyst in the right maxillary sinus the rest of sinuses and mastoids are well-aerated. CT/CT head/brain wo IV con IMPRESSION: No acute intracranial pathology. Electronically signed by: Anatoliy Sims MD 02/09/2024 11:01 AM ANIKA
[2024-01-29 22:18] VITALS: BP 105/78; PULSE 114; RESP 18; TEMP 36.3; O2SAT 96; BMI 46.1
--- NOTE | 2024-01-29 22:28 | ECG_ITS ---
Test Reason : SI/OD? Blood Pressure : / mmHG Vent. Rate : 090 BPM Atrial Rate : 090 BPM P-R Int : 176 ms QRS Dur : 094 ms QT Int : 366 ms P-R-T Axes : 039 067 054 degrees QTc Int : 447 ms Normal sinus rhythm Normal ECG When compared with ECG of 22-MAY-2022 10:44, No significant change was found Referred By: Misti Vincent Electronically Signed By:VIBHA BYRNES
--- NOTE | 2024-01-29 22:38 | ED_ITS ---
HPI - Psych General Chief Complaint: Psychiatric Symptoms Stated Complaint: crisis/suicidal-been drinking took pills Time Seen by Provider: 01/29/24 22:28 Source: patient and old records reviewed Mode of arrival: ambulatory Limitations: other (very hard to follow given she is switching between persons) History of Present Illness ED Provider: JOSE HPI Narrative: 38 yo female with PTSD, dissociated disorder here with c/o initially nothing. Patient states I am talking to Raf and not Lisa who goes by Sarah. The patient states Sarah must have been saying all of this. They all drank earlier today and took about 4mg of klonopin around 2pm to have fun and chill - Raf denies SI attempt. Initially Raf was refusing care but then agrees as long as we do not touch their baby - I did not understand what this meant but Raf came in with a very special lifelike doll. Raf denies SI but is not answering for Lisa. complaint: feels depressed Onset (ago): unknown Duration: changing over time History of same: Yes Relieving factors: none Exacerbating factors: other Context: recent alcohol abuse and recent drug abuse Associated psychiatric symptoms: depression Associated symptoms: denies other symptoms Treatments prior to arrival: none Related Data Home Medications ?Medication ?Instructions ?Recorded ?Confirmed acetaminophen 500 mg tablet 1,000 mg PO DAILY PRN Pain 09/24/22 10/04/22 alprazolam 1 mg tablet 1 mg PO TID PRN Anxiety 09/24/22 10/04/22 cyanocobalamin (vitamin B-12) 1,000 mcg PO DAILY 09/24/22 10/04/22 1,000 mcg tablet desvenlafaxine succinate 100 mg 100 mg PO DAILY 09/24/22 10/04/22 tablet,extended release 24 hr lithium carbonate 300 mg tablet 600 mg PO BID 09/24/22 10/04/22 prazosin 5 mg capsule 10 mg PO BEDTIME 09/24/22 10/04/22 trazodone 100 mg tablet 200 mg PO BEDTIME 09/24/22 10/04/22 fluticasone propionate 50 1 spray intranasal DAILY PRN 10/04/22 10/04/22 mcg/actuation nasal Allergy Symptoms spray,suspension Previous Rx's ?Medication ?Instructions ?Recorded Super B Complex 1 tab PO DAILY #30 tabs 05/23/22 cholecalciferol (vitamin D3) 25 50 mcg (2 x 25 mcg (1,000 unit)) 05/23/22 mcg (1,000 unit) tablet PO DAILY #60 tabs dextroamphetamine-amphetamine 10 10 mg PO 1400 #30 tabs 05/23/22 mg tablet melatonin 3 mg tablet 12 mg (4 x 3 mg) PO BEDTIME #120 05/23/22 tabs prazosin 2 mg capsule 4 mg (2 x 2 mg) PO BEDTIME #60 caps 05/23/22 ziprasidone HCl 80 mg capsule 80 mg PO BEDTIME #30 caps 05/23/22 dextroamphetamine-amphetamine ER 30 mg PO QAM #30 caps 05/24/22 30 mg 24hr capsule,extend release (Adderall XR) Allergies Allergy/AdvReac Type Severity Reaction Status Date / Time Sulfa (Sulfonamide Allergy Unknown Hives Verified 01/29/24 22:21 Antibiotics) [SULFA (SULFONAMIDE ANTIBIOTICS)] sulfamethoxazole Allergy Unknown Hives Verified 01/29/24 22:21 [From BACTRIM] trimethoprim [From BACTRIM] Allergy Unknown Hives Verified 01/29/24 22:21 lurasidone [From Latuda] AdvReac Intermediate anger, rage Verified 01/29/24 22:21 oseltamivir [From Tamiflu] AdvReac Sensation Verified 01/29/24 22:21 of bugs crawling on skin. lavender Allergy Severe Hives Uncoded 10/04/22 09:42 Review of Systems 2 Review of Systems: Constitutional : No Fever, No Chills ENT/Mouth : No Ear Pain, No Nasal Congestion, No sore throat Eyes: No Eye Pain, No Swelling, No Redness Cardiovascular : No Chest Pain, No SOB Respiratory : No Cough, No Sputum, No Dyspnea Gastrointestinal : No Nausea, No Vomiting, No Diarrhea, No Hematochezia, No Melena Genitourinary : No Dysuria, No Urinary Frequency, No Hematuria Musculoskeletal : No Myalgias Skin : No Skin Lesions, No rash Neuro : No Weakness, No Numbness, No Paresthesias, No Dizziness, No Headache Psych : positive Anxiety, positive Depression, positive SI no HI All other systems reviewed and are negative PMFSH Past Medical History Attestation statement: The following information was validated with the patient. Source: old records reviewed Medical History Dissociative disorder Dermoid cyst PTSD (post-traumatic stress disorder) Social History Social History Household Members: Other Household Members Other:: Rommate Housing: Apartment Housing Other:: downstairs landlord Do you presently have visiting nurse or other home services: Yes Alcohol intake: current Alcohol intake frequency: a few times a week Patient Tobacco Use Status: Current everyday Tobacco user Tobacco use type: Cigarette Cigarette Packs Per Day: 0.5 Cigarettes Per Day: 10.0 Years Smoked: 20 Smoked in Last 30 Days: Yes e-Cigarette/Vaping Use: Never Used Second Hand Smoke Exposure: Yes Use of substances other than those prescribed or required for medical reasons: No Substance Use Type: Marijuana Advance Directives: No Advance Directives Information Provided: No Patient : No service: No Sexual orientation: Did not discuss Physical Exam 2 Vital Signs: Vital Signs: Last Vital Signs Temp 98.2 F 01/29/24 22:55 Pulse 87 01/29/24 22:55 Resp 20 01/29/24 22:55 BP 109/80 01/29/24 22:55 Pulse Ox 99 01/29/24 22:55 O2 Del Method Room Air 01/29/24 22:55 BMI result Body Mass Index 46.1 Appearance: Alert. Oriented X3. No acute distress. adverserial at first wide awake no signs of slurred speech, intoxication, steady gait Eyes: Pupils equal, round and reactive to light. ENT: Pharynx normal. Neck: Normal inspection. Neck supple. CVS: Normal heart rate and rhythm. Pulses normal. Respiratory: No respiratory distress. Breath sounds normal. Abdomen: Soft and nontender. Skin: Skin warm and dry. Normal skin color. Normal skin turgor. Extremities: No lower extremity edema. No calf ttp Neuro: Oriented X 3. No motor deficit. No sensory deficit. CN 2-12 intact Course Course Course Narrative: negative for benzos on utox Medical Decision Making Medical Decision Making MDM Narrative: 38 yo female with PTSD, dissociated disorder here with c/o being different personalities who seem to have varying concerns about SI - they go back and forth between [facility] and [facility]. At this time labs, EKG and CARE team consult. She exhibits no signs of intoxication at this time Differential Diagnosis Differential Diagnoses: The differential diagnosis associated with the presentation includes alcohol abuse, depression Admission/Observation Consideration of admission/observation: Escalation of care including admission/observation considered physician observation started at 1040pm pending CARE team consult Lab Data MDM Lab Attestation statement: I reviewed the patient's lab results. 01/29/24 22:50 01/29/24 22:50 Labs: Lab Results 01/29/24 01/29/24 Range/Units 22:42 22:50 WBC 9.5 (4.8-10.8) X10*3/uL RBC 4.22 (4.20-5.50) X10*6/uL Hgb 12.6 (12.0-16.0) g/dl Hct 38.5 (37.0-47.0) % MCV 91.2 (80.0-98.0) fL MCH 29.9 (27.0-33.0) pg MCHC 32.7 (31.0-35.0) g/dl RDW 12.5 (11.0-16.0) % Plt Count 277 (160-400) X10*3/uL MPV 9.4 (9.4-12.3) fL Immature Gran % (Auto) 0.4 (0.0-0.4) % Neut % (Auto) 63.4 (45-73) % Lymph % (Auto) 30.1 (20-40) % [facility] % (Auto) 4.5 (2-11) % Eos % (Auto) 1.3 (0-4) % Baso % (Auto) 0.3 (0-2) % Lymph # (Auto) 2.9 (1.2-4.9) X10*3/uL [facility] # (Auto) 0.4 (0.1-1.2) X10*3/uL Eos # (Auto) 0.1 (0.0-0.4) X10*3/uL Baso # (Auto) 0.0 (0.0-0.2) X10*3/uL Abs Immat Gran (auto) 0.04 H (0.00-0.03) X10*3/uL Absolute Neuts (auto) 6.1 (2.0-8.3) x10*3/uL Absolute Nucleated RBC 0.000 (0.0-0.012) X10*3/uL Nucleated RBC % (auto) 0.0 (0.0-0.2) /100WBC Sodium 141 (135-145) mmol/L Potassium 3.9 (3.3-5.1) mmol/L Chloride 110 H (96-108) mmol/L Carbon Dioxide 22 (22-29) mmol/L Anion Gap 13 (12-20) BUN 6 L (9-16) mg/dL Creatinine 0.84 (0.5-1.4) mg/dL Estim Creat Clear Calc 126.5 Estimated GFR > 60 Random Glucose 110 (60-115) mg/dL Calcium 9.1 (8.4-10.2) mg/dL Magnesium 2.3 (1.6-2.6) mg/dL Total Bilirubin 0.2 (0.0-1.0) mg/dL Direct Bilirubin < 0.2 (0.0-0.5) mg/dL AST 20 (5-31) U/L ALT 22 (0-31) U/L Alkaline Phosphatase 51 (39-117) U/L Total Protein 6.5 (6.5-8.0) g/dL Albumin 4.1 (3.5-5.0) g/dL Urine Color Yellow Urine Appearance Clear Urine pH 7.0 (5.0-9.0) Ur Specific [place] <= 1.005 (1.005-1.025) Urine Protein Negative (Neg-Trace) mg/dL Urine Glucose (UA) Negative (Negative) mg/dL Urine Ketones Negative (Negative) mg/dL Urine Blood Negative (Negative) Urine Nitrite Negative (Negative) Ur Leukocyte Esterase Negative (Negative) Salicylates < 5.0 L (15-30) mg/dL Urine Opiates Screen Not Detected (Not Detect) Ur Buprenorphine Scrn Not Detected (Not Detect) ng/mL Ur Oxycodone Screen Not Detected (Not Detect) ng/mL Urine Methadone Screen Not Detected (Not Detect) ng/mL Urine Fentanyl Screen Not Detected (Not Detect) Acetaminophen < 3 (<30) mcg/mL Ur Barbiturates Screen Not Detected (Not Detect) Ur Phencyclidine Scrn Not Detected (Not Detect) Ur Amphetamines Screen POSITIVE H (Not Detect) U Benzodiazepines Scrn Not Detected (Not Detect) [place] 6 0.87 (0.60-1.20) mmol/L Urine Cocaine Screen Not Detected (Not Detect) U Marijuana (THC) Screen Not Detected (Not Detect) Ethyl Alcohol 111 mg/dL Independent Interpretation I performed an independent interpretation of an: EKG Interpretation: Rate: 90 Rhythm: NSR [place]: normal Normal P waves. Normal SANDI. Normal QRS complex. ST T wave : normal no RUBA qTC: 447 prior studies: normal The study has been interpreted contemporaneously by me. . External Record Review External record reviewed: Inpatient record Discharge Plan Discharge Clinical Impression: Dissociative disorder, Alcohol abuse Patient Disposition: Still a Patient Prescriptions: No Action dextroamphetamine-amphetamine 10 mg Tablet 10 mg PO 1400 Qty: 30 0RF Rx Instructions: Partial Fill upon patient request. ziprasidone HCl 80 mg Capsule 80 mg PO BEDTIME Qty: 30 0RF melatonin 3 mg Tablet 12 mg PO BEDTIME Qty: 120 0RF cholecalciferol (vitamin D3) 25 mcg (1,000 unit) Tablet 50 mcg PO DAILY Qty: 60 0RF Super B Complex 1 tab PO DAILY Qty: 30 1RF prazosin 2 mg capsule 4 mg PO BEDTIME Qty: 60 0RF dextroamphetamine-amphetamine [Adderall XR] 30 mg capsule,extended release 24hr 30 mg PO QAM Qty: 30 0RF Rx Instructions: Partial Fill upon patient request. fluticasone propionate 50 mcg/actuation spray,suspension 1 spray intranasal DAILY PRN (Reason: Allergy Symptoms) prazosin 5 mg capsule 10 mg PO BEDTIME lithium carbonate 300 mg tablet 600 mg PO BID Rx Instructions: Take 2 tabs BID. alprazolam 1 mg tablet 1 mg PO TID PRN (Reason: Anxiety) acetaminophen 500 mg Tablet 1,000 mg PO DAILY PRN (Reason: Pain) desvenlafaxine succinate 100 mg tablet extended release 24 hr 100 mg PO DAILY trazodone 100 mg tablet 200 mg PO BEDTIME cyanocobalamin (vitamin B-12) 1,000 mcg tablet 1,000 mcg PO DAILY Interventions: [place]-Suicide Risk Severity Scale Last Done: 01/29/24 22:55 Print Language: Lithuanian
--- NOTE | 2024-01-29 22:49 | PC.NURSE ---
belongings in shelf 1, suitcase on the side in closet
[2024-01-29 22:50] LABS: Appearance Urine Clear; Color Urine Yellow; Glucose Urine UA Negative (Negative); Leukocyte Esterase Urine Negative (Negative); Nitrite Urine Negative (Negative); Specific Gravity - Urine <= 1.005 (1.005-1.025); Urine Blood Negative (Negative); Urine Ketones Negative (Negative); Urine Protein Negative (Neg-Trace)
[2024-01-29 22:55] VITALS: BP 109/80; PULSE 87; RESP 20; TEMP 36.8; O2SAT 99
[2024-01-29 22:57] LABS: MANUAL DIFF FLAG NO
[2024-01-29 22:58] LABS: Basophils Percent Auto 0.3 % (0-2); Eosinophils Absolute Auto 0.1 X10*3/uL (0.0-0.4); Eosinophils Percent Auto 1.3 % (0-4); Hematocrit 38.5 % (37.0-47.0); Hemoglobin 12.6 g/dl (12.0-16.0); Imm Gran Abs Auto 0.04 X10*3/uL (0.00-0.03); Imm Gran Pct Auto 0.4 % (0.0-0.4); Lymphocytes Absolute Auto 2.9 X10*3/uL (1.2-4.9); Lymphocytes Percent Auto 30.1 % (20-40); Mean Corpuscular HGB Conc 32.7 g/dl (31.0-35.0); Mean Corpuscular Hemoglobin 29.9 pg (27.0-33.0); Mean Corpuscular Volume 91.2 fL (80.0-98.0); Mean Platelet Volume 9.4 fL (9.4-12.3); Monocytes Absolute Auto 0.4 X10*3/uL (0.1-1.2); Monocytes Percent Auto 4.5 % (2-11); Neutrophils Absolute Auto 6.1 x10*3/uL (2.0-8.3); Neutrophils Percent Auto 63.4 % (45-73); Platelet Count 277 X10*3/uL (160-400); Red Blood Count 4.22 X10*6/uL (4.20-5.50); Red Cell Distribution Width 12.5 % (11.0-16.0); White Blood Count 9.5 X10*3/uL (4.8-10.8)
[2024-01-29 22:59] LABS: Amphetamine Screen Urine POSITIVE (Not Detect); Barbiturates, Urine Not Detected (Not Detect); Benzodiazepines Screen Urine Not Detected (Not Detect); Buprenorphine Scr Not Detected (Not Detect); Cannabinoid Screen Urine Not Detected (Not Detect); Cocaine Screen Urine Not Detected (Not Detect); Fentanyl, urine Not Detected (Not Detect); Methadone Screen, Urine Not Detected (Not Detect); Opiate Screen Urine Not Detected (Not Detect); Oxycodone Screen Urine Not Detected (Not Detect); Phencyclidine Screen Urine Not Detected (Not Detect)
[2024-01-29 23:08] LABS: Lithium 0.87 mmol/L (0.60-1.20)
--- NOTE | 2024-01-29 23:09 | PC.NURSE ---
pt reports she checked herself out of [facility] a few days ago because she felt unsafe, has not been taking her medications since. reports drinking a lot today but doesn't know who drank. SI with a bunch of plans, bridges, train tracks, pills, high speed cars . pt tearful but cooperative.
--- NOTE | 2024-01-29 23:17 | PC.NURSE ---
rec'd client from main ed, states she has a med list and dc paperwork from [facility] from a few days ago.
[2024-01-29 23:20] LABS: Acetaminophen LAB < 3 mcg/mL (<30); Salicylate < 5.0 mg/dL (15-30)
[2024-01-29 23:21] LABS: Alanine Aminotransferase 22 U/L (0-31); Albumin Level 4.1 g/dL (3.5-5.0); Alkaline Phosphatase 51 U/L (39-117); Anion Gap 13 (12-20); Aspartate Amino Transferase 20 U/L (5-31); Bilirubin Direct < 0.2 mg/dL (0.0-0.5); Bilirubin Total 0.2 mg/dL (0.0-1.0); Blood Urea Nitrogen 6 mg/dL (9-16); Calcium 9.1 mg/dL (8.4-10.2); Carbon Dioxide 22 mmol/L (22-29); Chloride 110 mmol/L (96-108); Creatinine Clr Calc Pharmacy 126.5; Estimated Glomerular Filt Rate > 60; Ethanol 111 mg/dL; Glucose Random 110 mg/dL (60-115); Magnesium 2.3 mg/dL (1.6-2.6); Potassium 3.9 mmol/L (3.3-5.1); Sodium 141 mmol/L (135-145); Total Protein 6.5 g/dL (6.5-8.0)
[2024-01-29 23:27] LABS: HCG Quantitative < 2 mIU/mL
--- NOTE | 2024-01-29 23:41 | PC.NURSE ---
t/w approached client and offered medication, client non verbal currently.
--- NOTE | 2024-01-30 01:29 | PC.NURSE ---
patient paced a bit, briefly chatting w staff.
[2024-01-30] MEDS: chlorproMAZINE HCl 25 MG TABLET 50 MG PO ×3 (02:06→16:41)
[2024-01-30 02:09] VITALS: BP 134/77; PULSE 67; RESP 16; O2SAT 97
[2024-01-30 06:00] VITALS: RESP 16
--- NOTE | 2024-01-30 06:02 | PC.NURSE ---
patient remains asleep presently
--- NOTE | 2024-01-30 07:11 | PC.NURSE ---
Assumed care of patient at 0645, patient appears to be in no apparent distress this am, sleeping, respirations even and unlabored. Patient is currently pending CARE team at this time
--- NOTE | 2024-01-30 10:01 | MHC.CARE ---
Pt will be a bedsearch
--- NOTE | 2024-01-30 10:49 | PC.NURSE ---
RE: med rec This RN completed med rec with discharge papers from [facility], pt reports the medications on that paperwork is the most up to date and correct meds
[2024-01-30] MEDS: LORazepam 1 MG TABLET 2 MG PO (11:56)
[2024-01-30] MEDS: Cholecalciferol (Vitamin D3) 25 MCG TABLET 50 MCG PO (12:10)
[2024-01-30] MEDS: Lithium Carbonate 300 MG CAPSULE 600 MG PO ×2 (12:10→21:02)
[2024-01-30] MEDS: Dextroamphetamine/Amphetamine XR 10 MG CAP.ER.24H 30 MG PO (12:10)
--- NOTE | 2024-01-30 13:58 | MHC.CARE ---
Notification of bedsearch, form faxed to [facility] Notification of bed found, form faxed to [facility]
[2024-01-30] MEDS: clonazePAM 1 MG TABLET PO ×2 (16:41→21:02)
--- NOTE | 2024-01-30 17:06 | PC.NURSE ---
Lisa (Sarah) they/them was admitted from the POD after self presenting 3 days post discharge from [facility] where they had a psychiatric admission and reports they were diagnosed with DID and told that it was not curable. Sarah arrived to the unit and was agreeable with the global climate change researcher. Skin WNL. Very small red spot in middle of forehead which they report was from banging their head prior to admission. Sarah reports alcohol consumption for several days before presenting to the POD but denies any withdrawal symptoms. When asked about alcohol use during assessment Sarah reports they aren't the one that drinks and that its another one of us that takes over and this cause amnesia because we don't talk to each other so I don't know what the others do . When asked about history of falls and ADL's they responded When I'm a child I'll need help with tasks like menu and reading . Denies other substance use and reports they are not currently suicidal but should be on 5 minute checks or a 1:1 in case I start to bang my head . At this point a peer slammed a door and was yelling in the hallway which caused Sarah to wince and look uncomfortable. This insurance underwriter sales offered PRN's and went to get them. Upon return 5 minutes later when this insurance underwriter sales opened the door Sarah sat up and stated in a very infantile voice Stefan then stating caterinaa where did my tiago go . Meds offered and they took them chewing them and stating kimberly che . Provider notified and DID is a new diagnoses that was not present on previous visits. CV signed. Provider recommended staying consistent and re-orienting gently when this behavior presents.
[2024-01-30 19:47] VITALS: BP 125/77; PULSE 84; RESP 16; TEMP 36.6; O2SAT 98
[2024-01-30] MEDS: chlorproMAZINE HCl 25 MG TABLET 75 MG PO (21:02)
[2024-01-30] MEDS: Prazosin HCL 1 MG CAPSULE 8 MG PO (21:02)
[2024-01-30] MEDS: traZODone HCL 100 MG TABLET 300 MG PO (21:02)
[2024-01-31 08:00] VITALS: BP 120/67; PULSE 68; TEMP 36.8; O2SAT 97
[2024-01-31] MEDS: Cholecalciferol (Vitamin D3) 25 MCG TABLET 50 MCG PO (09:42)
[2024-01-31] MEDS: Multivitamin TABLET 1 TAB PO (09:42)
[2024-01-31] MEDS: Lithium Carbonate 300 MG CAPSULE 600 MG PO ×2 (09:42→21:16)
[2024-01-31] MEDS: Cyanocobalamin (Vitamin B-12) 1,000 MCG TABLET 1000 MCG PO (09:42)
[2024-01-31] MEDS: Dextroamphetamine/Amphetamine XR 10 MG CAP.ER.24H 30 MG PO (09:42)
[2024-01-31] MEDS: Folic Acid 1 MG TABLET PO (09:43)
[2024-01-31] MEDS: clonazePAM 1 MG TABLET PO ×2 (09:43→21:16)
[2024-01-31] MEDS: Venlafaxine HCl ER 75 MG CAP.ER.24H PO (09:54)
[2024-01-31 10:23] LABS: Cholesterol 132 mg/dL (<200); HDL Cholesterol 30 mg/dL (>40); LDL Cholesterol Calculated 65 mg/dL (<100); Magnesium 2.1 mg/dL (1.6-2.6); Triglycerides 189 mg/dL (<150)
[2024-01-31 10:27] LABS: Estimated Average Glucose 88 mg/dL; Hemoglobin A1C 91.2687 umol/L; Hemoglobin A1c % 4.7 % (<6.0); Total Hemoglobin (HGBA1C) 3320.7599 umol/L
[2024-01-31 10:46] LABS: Thyroid Stimulating Hormone 0.41 uIU/mL (0.32-4.0)
[2024-01-31 10:59] LABS: Vitamin B12 1028 pg/mL (200-900)
[2024-01-31 12:05] LABS: Free T4 (Free Thyroxine) 0.91 ng/dL (0.71-1.85)
[2024-01-31 12:17] LABS: Folate 6.4 ng/mL (> or = 4.0)
[2024-01-31 12:50] VITALS: BP 117/70; PULSE 87
[2024-01-31] MEDS: Propranolol HCL 10 MG TABLET PO (12:50)
[2024-01-31] MEDS: chlorproMAZINE HCl 25 MG TABLET 50 MG PO (12:50)
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
[2024-01-31 19:57] VITALS: BP 117/56; PULSE 74; RESP 16; TEMP 36.3; O2SAT 95
[2024-01-31 21:16] VITALS: BP 118/60
[2024-01-31] MEDS: Prazosin HCL 1 MG CAPSULE 8 MG PO (21:16)
[2024-01-31] MEDS: traZODone HCL 100 MG TABLET 300 MG PO (21:16)
[2024-01-31] MEDS: chlorproMAZINE HCl 25 MG TABLET 75 MG PO (22:26)
[2024-02-01] MEDS: Lithium Carbonate 300 MG CAPSULE 600 MG PO ×2 (08:52→20:52)
[2024-02-01] MEDS: Folic Acid 1 MG TABLET PO (08:53)
[2024-02-01] MEDS: Venlafaxine HCl ER 75 MG CAP.ER.24H PO (08:54)
[2024-02-01] MEDS: Cholecalciferol (Vitamin D3) 25 MCG TABLET 50 MCG PO (08:54)
[2024-02-01] MEDS: Cyanocobalamin (Vitamin B-12) 1,000 MCG TABLET 1000 MCG PO (08:54)
[2024-02-01] MEDS: clonazePAM 1 MG TABLET PO ×2 (08:54→20:52)
[2024-02-01] MEDS: Dextroamphetamine/Amphetamine XR 10 MG CAP.ER.24H 30 MG PO (08:54)
[2024-02-01] MEDS: Multivitamin TABLET 1 TAB PO (08:54)
[2024-02-01 09:33] VITALS: BP 104/63; PULSE 78; RESP 18; TEMP 36.6; O2SAT 97
[2024-02-01 10:52] VITALS: BP 108/68; PULSE 101
[2024-02-01] MEDS: chlorproMAZINE HCl 25 MG TABLET 50 MG PO ×2 (10:52→12:52)
[2024-02-01] MEDS: Propranolol HCL 10 MG TABLET PO (10:52)
[2024-02-01] MEDS: Acetaminophen 325 MG TABLET 650 MG PO (10:53)
[2024-02-01] MEDS: Perphenazine 4 MG TABLET PO ×2 (16:33→20:51)
--- NOTE | 2024-02-01 16:55 | HO.PSYCHPN ---
Subjective Subjective Date of Service: 02/01/24 Reason For Visit: PTSD; MDD, DID, alcohol abuse Subjective Notes: Conditional Voluntary and 3 Day Healthcare Proxy: No Guardianship: No Medical Problems Affecting Mental Status: No Interim History: Met with pt and Curry Raymond [facility]. Review of behavior plan, rationale and specifics Education provided for pt to relate team interventions to her safety. Retracted TDN Discussion, Education for all regarding DID diagnosis and her perception of symptoms. Discussed trial of prn Perphenazine to help with grounding and minimize sedation. She will trial. Medication Compliance: Yes Side effects from medications: No Attending Groups: Intermittent Review of Systems Acute medical concerns: No Medical Review of Systems: unchanged Review of Systems Review of Systems Yes all other systems are reviewed and are negative Mental Status Exam Mental Status Exam Patient Appearance: Fatigued and Appropriate Patient Orientation: Person, Place, Time and Situation Level of Consciousness: Alert Patient Behavior: Appropriate, Talkative, Cooperative, Distractible and Good Eye Contact Mood Description: Withdrawn, Depressed, Anxious and Apprehensive Affect Description: Flat Patient Cognition Impaired: No Ability to Follow Directions: Good Speech Pattern: Spontaneous Speech Memory Description: Episodic Impaired Hallucinations: None Delusions: Not Present Perceptual Disturbances: Depersonalization and Derealization Thought Process: Rumination Thought Content: positive for Perseveration and positive for Suicidal Ideation Depressive Symptoms: Increased Anxiety, Insomnia, Difficulty Sleeping, Loss of Int. in Activity, Hopelessness, Unhappiness, Increased Fatigue and Thoughts of /Suicide Judgement: Fair Diagnostics Vital Signs (24Hr): Vital Signs - 24 hr 01/31/24 19:57 01/31/24 21:16 02/01/24 09:33 Temperature 97.3 F 97.8 F Pulse Rate 74 78 Respiratory Rate 16 18 Blood Pressure 117/56 L 118/60 104/63 Pulse Oximetry 95 97 Oxygen Delivery Method Room Air Room Air 02/01/24 10:52 Temperature Pulse Rate 101 H Respiratory Rate Blood Pressure 108/68 Pulse Oximetry Oxygen Delivery Method BMI result Body Mass Index 46.1 Labs 01/29/24 22:50 01/29/24 22:50 Labs: Laboratory Results - last 48 hr 01/31/24 09:41 Estimat Average Glucose 88 Hemoglobin A1c % 4.7 Magnesium 2.1 Triglycerides 189 H Cholesterol 132 LDL Cholesterol, Calc 65 HDL Cholesterol 30 L Vitamin B12 1028 H Folate 6.4 TSH 0.41 Free T4 0.91 Medications Medications Current Medications Acetaminophen (Acetaminophen 325 Mg Tablet) 650 mg PO Q6H PRN PRN Reason: Headache/Pain Mild Scale (1-3) Last Admin: 02/01/24 10:53 Dose: 650 mg Al Hydroxide/Mg Hydroxide (Magnesium Hydrox/Alum Hydrox 30 Ml Oral.Susp) 30 ml PO Q6H PRN PRN Reason: Heartburn/Nausea Amphetamine/Dextroamphetamine (Dextroamphetamine/Amphetamine Xr 10 Mg Cap.Er.24h) 30 mg PO DAILY [facility] Last Admin: 02/01/24 08:54 Dose: 30 mg Bisacodyl (Bisacodyl 5 Mg Tablet.Dr) 5 mg PO DAILY PRN PRN Reason: Constipation Bisacodyl (Bisacodyl 10 Mg Supp.Rect) 10 mg GA DAILY PRN PRN Reason: Constipation Chlorpromazine HCl (Chlorpromazine Hcl 25 Mg Tablet) 50 mg PO QID PRN PRN Reason: Severe Anxiety Last Admin: 02/01/24 12:52 Dose: 50 mg Chlorpromazine HCl (Chlorpromazine Hcl 25 Mg Tablet) 75 mg PO BEDTIME PRN PRN Reason: sleep Last Admin: 01/31/24 22:26 Dose: 75 mg Clonazepam (Clonazepam 1 Mg Tablet) 1 mg PO BID [facility] Last Admin: 02/01/24 08:54 Dose: 1 mg Clonazepam (Clonazepam 1 Mg Tablet) 1 mg PO DAILY PRN PRN Reason: Anxiety Last Admin: 01/30/24 16:41 Dose: 1 mg Cyanocobalamin (Cyanocobalamin (Vitamin B-12) 1,000 Mcg Tablet) 1,000 mcg PO DAILY [facility] Last Admin: 02/01/24 08:54 Dose: 1,000 mcg Folic Acid (Folic Acid 1 Mg Tablet) 1 mg PO DAILY [facility] Last Admin: 02/01/24 08:53 Dose: 1 mg Hydroxyzine HCl (Hydroxyzine Hcl 50 Mg Tablet) 50 mg PO QID PRN PRN Reason: Anxiety Hydroxyzine HCl (Hydroxyzine Hcl 25 Mg Tablet) 25 mg PO Q6H PRN PRN Reason: Anxiety [place] Carbonate ([place] Carbonate 300 Mg Capsule) 600 mg PO BID [facility] Last Admin: 02/01/24 08:52 Dose: 600 mg Magnesium Hydroxide (Milk Of Magnesia 30 Ml Oral.Susp) 30 ml PO DAILY PRN PRN Reason: Constipation Multivitamins/Vitamin C (Multivitamin Tablet) 1 tab PO DAILY [facility] Last Admin: 02/01/24 08:54 Dose: 1 tab Nicotine (Nicotine 21 Mg Patch.Td24) 21 mg TRANSDERMA DAILY PRN PRN Reason: nicotine cravings Nicotine Polacrilex (Nicotine Polacrilex 2 Mg Gum) 4 mg BUCCAL Q2H PRN PRN Reason: Nicotine Cravings Perphenazine (Perphenazine 4 Mg Tablet) 4 mg PO TID PRN PRN Reason: grounding support Last Admin: 02/01/24 16:33 Dose: 4 mg Prazosin HCl (Prazosin Hcl 1 Mg Capsule) 8 mg PO BEDTIME [facility]ACEY; Protocol Last Admin: 01/31/24 21:16 Dose: 8 mg Propranolol HCl (Propranolol Hcl 10 Mg Tablet) 10 mg PO TID PRN; Protocol PRN Reason: Anxiety Last Admin: 02/01/24 10:52 Dose: 10 mg Trazodone HCl (Trazodone Hcl 100 Mg Tablet) 300 mg PO BEDTIME [facility] Last Admin: 01/31/24 21:16 Dose: 300 mg Venlafaxine HCl (Venlafaxine Hcl Er 75 Mg Cap.Er.24h) 75 mg PO DAILY [facility] Last Admin: 02/01/24 08:54 Dose: 75 mg Vitamin D (Cholecalciferol (Vitamin D3) 25 Mcg Tablet) 50 mcg PO DAILY [facility] Last Admin: 02/01/24 08:54 Dose: 50 mcg Allergies Allergies Allergy/AdvReac Type Severity Reaction Status Date / Time Sulfa (Sulfonamide Allergy Unknown Hives Verified 01/29/24 22:21 Antibiotics) [SULFA (SULFONAMIDE ANTIBIOTICS)] sulfamethoxazole Allergy Unknown Hives Verified 01/29/24 22:21 [From BACTRIM] trimethoprim [From BACTRIM] Allergy Unknown Hives Verified 01/29/24 22:21 lurasidone [From Latuda] AdvReac Intermediate anger, rage Verified 01/29/24 22:21 oseltamivir [From Tamiflu] AdvReac Sensation Verified 01/29/24 22:21 of bugs crawling on skin. lavender Allergy Severe Hives Uncoded 10/04/22 09:42 Assessment & Plan Assessment & Plan (1) Dissociative disorder: Status: Acute Code(s): F44.9 - Dissociative and conversion disorder, unspecified (2) PTSD (post-traumatic stress disorder): Status: Acute Code(s): F43.10 - Post-traumatic stress disorder, unspecified (3) MDD (major depressive disorder), recurrent severe, without psychosis: Status: Acute Code(s): F33.2 - Major depressive disorder, recurrent severe without psychotic features (4) Alcohol abuse: Status: Acute Code(s): F10.10 - Alcohol abuse, uncomplicated Plan PTSD, MDD, DID, Alcohol Abuse. Plan: Admit Pt signed a 3 day notice as she does not agree with teams behavioral plan. Collateral contacts No med changes currently. Pt does take Pristiq- will attempt to replace. Diagnostics as needed Assist pt is identification of resources for further programming. 01/31: TDN retracted Perphenazine prn for grounding in addition to Chlorpromazine Support, Educate, Engage in milieu. Reason for continued inpatient stay Substantial Risk for: harm to self and rapid decompensation Time Spent With Patient Time: Total time managing care of this patient today ____ minutes.
[2024-02-01 20:30] VITALS: BP 108/64; PULSE 80; RESP 16; TEMP 36.4; O2SAT 96
[2024-02-01] MEDS: traZODone HCL 100 MG TABLET 300 MG PO (20:52)
[2024-02-01] MEDS: chlorproMAZINE HCl 25 MG TABLET 75 MG PO (20:52)
[2024-02-01] MEDS: Prazosin HCL 1 MG CAPSULE 8 MG PO (20:52)
[2024-02-02 08:49] VITALS: BP 120/62; PULSE 76; TEMP 36.9; O2SAT 96
[2024-02-02] MEDS: Dextroamphetamine/Amphetamine XR 10 MG CAP.ER.24H 30 MG PO (09:41)
[2024-02-02] MEDS: Cholecalciferol (Vitamin D3) 25 MCG TABLET 50 MCG PO (09:42)
[2024-02-02] MEDS: Lithium Carbonate 300 MG CAPSULE 600 MG PO ×2 (09:42→21:01)
[2024-02-02] MEDS: clonazePAM 1 MG TABLET PO ×2 (09:43→21:03)
[2024-02-02] MEDS: Cyanocobalamin (Vitamin B-12) 1,000 MCG TABLET 1000 MCG PO (09:43)
[2024-02-02] MEDS: Multivitamin TABLET 1 TAB PO (09:43)
[2024-02-02] MEDS: Venlafaxine HCl ER 75 MG CAP.ER.24H PO (09:43)
[2024-02-02] MEDS: Folic Acid 1 MG TABLET PO (09:43)
[2024-02-02 11:03] VITALS: BP 124/72; PULSE 80
[2024-02-02] MEDS: Propranolol HCL 10 MG TABLET PO (11:03)
[2024-02-02] MEDS: Perphenazine 4 MG TABLET PO ×2 (11:04→21:03)
[2024-02-02] MEDS: chlorproMAZINE HCl 25 MG TABLET 50 MG PO (14:39)
--- NOTE | 2024-02-02 16:25 | P.PNPSI_ITS ---
Subjective Subjective Date of Service: 02/02/24 Reason For Visit: PTSD; MDD, DID, alcohol abuse Subjective Notes: Conditional Voluntary Healthcare Proxy: No Guardianship: No Medical Problems Affecting Mental Status: No Interim History: Met with pt and Rita [facility]. Discussed triggers to switching-yelling, screaming, doors slamming, smells, abandonment susy with therapist, conflicts, susy with therapist. Identifies alters- 13 that are 11 yo and under Estefany-the adult, senior sustainability advisor of the younger ones A teen male and female who are depressed and who self harm M - and adult, cheerful One who flees, tries to get out One who is her father, a perpretrator Medication Compliance: Yes Side effects from medications: No Attending Groups: Intermittent Review of Systems Acute medical concerns: No Medical Review of Systems: unchanged Mental Status Exam Mental Status Exam Patient Appearance: Fatigued and Appropriate Patient Orientation: Person, Place, Time and Situation Level of Consciousness: Alert Patient Behavior: Appropriate, Talkative, Cooperative, Distractible and Good Eye Contact Mood Description: Withdrawn, Depressed, Anxious and Apprehensive Affect Description: Flat Patient Cognition Impaired: No Ability to Follow Directions: Good Speech Pattern: Spontaneous Speech Memory Description: Episodic Impaired Hallucinations: None Delusions: Not Present Perceptual Disturbances: Depersonalization and Derealization Thought Process: Rumination Thought Content: positive for Perseveration and positive for Suicidal Ideation Depressive Symptoms: Increased Anxiety, Insomnia, Difficulty Sleeping, Loss of Int. in Activity, Hopelessness, Unhappiness, Increased Fatigue and Thoughts of /Suicide Judgement: Fair Diagnostics Vital Signs (24Hr): Vital Signs - 24 hr 02/01/24 20:30 02/02/24 08:49 02/02/24 11:03 Temperature 97.6 F 98.4 F Pulse Rate 80 76 80 Respiratory Rate 16 Blood Pressure 108/64 120/62 124/72 Pulse Oximetry 96 96 Oxygen Delivery Method Room Air Room Air BMI result Body Mass Index 46.1 Labs 01/29/24 22:50 01/29/24 22:50 Medications Medications Current Medications Acetaminophen (Acetaminophen 325 Mg Tablet) 650 mg PO Q6H PRN PRN Reason: Headache/Pain Mild Scale (1-3) Last Admin: 02/01/24 10:53 Dose: 650 mg Al Hydroxide/Mg Hydroxide (Magnesium Hydrox/Alum Hydrox 30 Ml Oral.Susp) 30 ml PO Q6H PRN PRN Reason: Heartburn/Nausea Amphetamine/Dextroamphetamine (Dextroamphetamine/Amphetamine Xr 10 Mg Cap.Er.24h) 30 mg PO DAILY [facility] Last Admin: 02/02/24 09:41 Dose: 30 mg Bisacodyl (Bisacodyl 5 Mg Tablet.Dr) 5 mg PO DAILY PRN PRN Reason: Constipation Bisacodyl (Bisacodyl 10 Mg Supp.Rect) 10 mg SC DAILY PRN PRN Reason: Constipation Chlorpromazine HCl (Chlorpromazine Hcl 25 Mg Tablet) 50 mg PO QID PRN PRN Reason: Severe Anxiety Last Admin: 02/02/24 14:39 Dose: 50 mg Chlorpromazine HCl (Chlorpromazine Hcl 25 Mg Tablet) 75 mg PO BEDTIME PRN PRN Reason: sleep Last Admin: 02/01/24 20:52 Dose: 75 mg Clonazepam (Clonazepam 1 Mg Tablet) 1 mg PO BID [facility] Last Admin: 02/02/24 09:43 Dose: 1 mg Clonazepam (Clonazepam 1 Mg Tablet) 1 mg PO DAILY PRN PRN Reason: Anxiety Last Admin: 01/30/24 16:41 Dose: 1 mg Cyanocobalamin (Cyanocobalamin (Vitamin B-12) 1,000 Mcg Tablet) 1,000 mcg PO DAILY [facility] Last Admin: 02/02/24 09:43 Dose: 1,000 mcg Folic Acid (Folic Acid 1 Mg Tablet) 1 mg PO DAILY [facility] Last Admin: 02/02/24 09:43 Dose: 1 mg Hydroxyzine HCl (Hydroxyzine Hcl 50 Mg Tablet) 50 mg PO QID PRN PRN Reason: Anxiety Hydroxyzine HCl (Hydroxyzine Hcl 25 Mg Tablet) 25 mg PO Q6H PRN PRN Reason: Anxiety [place] Carbonate ([place] Carbonate 300 Mg Capsule) 600 mg PO BID [facility] Last Admin: 02/02/24 09:42 Dose: 600 mg Magnesium Hydroxide (Milk Of Magnesia 30 Ml Oral.Susp) 30 ml PO DAILY PRN PRN Reason: Constipation Multivitamins/Vitamin C (Multivitamin Tablet) 1 tab PO DAILY [facility] Last Admin: 02/02/24 09:43 Dose: 1 tab Nicotine (Nicotine 21 Mg Patch.Td24) 21 mg TRANSDERMA DAILY PRN PRN Reason: nicotine cravings Nicotine Polacrilex (Nicotine Polacrilex 2 Mg Gum) 4 mg BUCCAL Q2H PRN PRN Reason: Nicotine Cravings Perphenazine (Perphenazine 4 Mg Tablet) 4 mg PO TID PRN PRN Reason: grounding support Last Admin: 02/02/24 11:04 Dose: 4 mg Prazosin HCl (Prazosin Hcl 1 Mg Capsule) 8 mg PO BEDTIME [facility]; Protocol Last Admin: 02/01/24 20:52 Dose: 8 mg Propranolol HCl (Propranolol Hcl 10 Mg Tablet) 10 mg PO TID PRN; Protocol PRN Reason: Anxiety Last Admin: 02/02/24 11:03 Dose: 10 mg Trazodone HCl (Trazodone Hcl 100 Mg Tablet) 300 mg PO BEDTIME [facility] Last Admin: 02/01/24 20:52 Dose: 300 mg Venlafaxine HCl (Venlafaxine Hcl Er 75 Mg Cap.Er.24h) 75 mg PO DAILY [facility] Last Admin: 02/02/24 09:43 Dose: 75 mg Vitamin D (Cholecalciferol (Vitamin D3) 25 Mcg Tablet) 50 mcg PO DAILY [facility] Last Admin: 02/02/24 09:42 Dose: 50 mcg Allergies Allergies Allergy/AdvReac Type Severity Reaction Status Date / Time Sulfa (Sulfonamide Allergy Unknown Hives Verified 01/29/24 22:21 Antibiotics) [SULFA (SULFONAMIDE ANTIBIOTICS)] sulfamethoxazole Allergy Unknown Hives Verified 01/29/24 22:21 [From BACTRIM] trimethoprim [From BACTRIM] Allergy Unknown Hives Verified 01/29/24 22:21 lurasidone [From Latuda] AdvReac Intermediate anger, rage Verified 01/29/24 22:21 oseltamivir [From Tamiflu] AdvReac Sensation Verified 01/29/24 22:21 of bugs crawling on skin. lavender Allergy Severe Hives Uncoded 10/04/22 09:42 Assessment & Plan Assessment & Plan (1) Dissociative disorder: Status: Acute Code(s): F44.9 - Dissociative and conversion disorder, unspecified (2) PTSD (post-traumatic stress disorder): Status: Acute Code(s): F43.10 - Post-traumatic stress disorder, unspecified (3) MDD (major depressive disorder), recurrent severe, without psychosis: Status: Acute Code(s): F33.2 - Major depressive disorder, recurrent severe without psychotic features (4) Alcohol abuse: Status: Acute Code(s): F10.10 - Alcohol abuse, uncomplicated Plan PTSD, MDD, DID, Alcohol Abuse. Plan: Admit Pt signed a 3 day notice as she does not agree with teams behavioral plan. Collateral contacts No med changes currently. Pt does take Pristiq- will attempt to replace. Diagnostics as needed Assist pt is identification of resources for further programming. 02/01- Continue to assist pt in creating safety for herself. Reason for continued inpatient stay Substantial Risk for: rapid decompensation Time Spent With Patient Time: Total time managing care of this patient today ____ minutes.
[2024-02-02 20:00] VITALS: BP 121/63; PULSE 81; TEMP 36.4; O2SAT 96
[2024-02-02 21:01] VITALS: BP 121/63
[2024-02-02] MEDS: Prazosin HCL 1 MG CAPSULE 8 MG PO (21:01)
[2024-02-02] MEDS: chlorproMAZINE HCl 25 MG TABLET 75 MG PO (21:04)
[2024-02-02] MEDS: traZODone HCL 100 MG TABLET 300 MG PO (21:04)
[2024-02-03 08:04] VITALS: BP 96/61; PULSE 86; TEMP 36.8; O2SAT 93
[2024-02-03 08:22] VITALS: PULSE 72; O2SAT 97
[2024-02-03] MEDS: Dextroamphetamine/Amphetamine XR 10 MG CAP.ER.24H 30 MG PO (09:03)
[2024-02-03] MEDS: Multivitamin TABLET 1 TAB PO (09:04)
[2024-02-03] MEDS: Venlafaxine HCl ER 75 MG CAP.ER.24H PO (09:04)
[2024-02-03] MEDS: clonazePAM 1 MG TABLET PO ×3 (09:04→20:37)
[2024-02-03] MEDS: Cyanocobalamin (Vitamin B-12) 1,000 MCG TABLET 1000 MCG PO (09:04)
[2024-02-03] MEDS: Lithium Carbonate 300 MG CAPSULE 600 MG PO ×2 (09:06→20:36)
[2024-02-03] MEDS: Cholecalciferol (Vitamin D3) 25 MCG TABLET 50 MCG PO (09:30)
[2024-02-03] MEDS: Folic Acid 1 MG TABLET PO (09:30)
[2024-02-03] MEDS: Perphenazine 4 MG TABLET PO ×2 (12:37→20:36)
--- NOTE | 2024-02-03 12:47 | HO.PSYCHPN ---
Subjective Subjective Date of Service: 02/03/24 Reason For Visit: PTSD; MDD, DID, alcohol abuse Subjective Notes: Conditional Voluntary Healthcare Proxy: No Guardianship: No Medical Problems Affecting Mental Status: No Interim History: Met with pt and [facility] Pt presents as Rema today, planning to self harm at 3pm, has hidden contraband which she is honest about and asks that we remove it. She allows room search, presents herself in the milieu for added safety and is cooperative with keeping herself safe. Message left for Nathen Rock [phone] to discuss her care. Medication Compliance: Yes Side effects from medications: No Attending Groups: Intermittent Review of Systems Acute medical concerns: No Medical Review of Systems: unchanged Review of Systems Review of Systems Yes all other systems are reviewed and are negative Mental Status Exam Mental Status Exam Patient Appearance: Fatigued and Appropriate Patient Orientation: Person, Place, Time and Situation Level of Consciousness: Alert Patient Behavior: Appropriate, Talkative, Cooperative, Distractible and Good Eye Contact Mood Description: Withdrawn, Depressed, Anxious and Apprehensive Affect Description: Flat Patient Cognition Impaired: No Ability to Follow Directions: Good Speech Pattern: Spontaneous Speech Memory Description: Episodic Impaired Hallucinations: None Delusions: Not Present Perceptual Disturbances: Depersonalization and Derealization Thought Process: Rumination Thought Content: positive for Perseveration and positive for Suicidal Ideation Depressive Symptoms: Increased Anxiety, Insomnia, Difficulty Sleeping, Loss of Int. in Activity, Hopelessness, Unhappiness, Increased Fatigue and Thoughts of /Suicide Judgement: Fair Diagnostics Vital Signs (24Hr): Vital Signs - 24 hr 02/02/24 20:00 02/02/24 21:01 02/03/24 08:04 Temperature 97.5 F 98.2 F Pulse Rate 81 86 Blood Pressure 121/63 121/63 96/61 Pulse Oximetry 96 93 Oxygen Delivery Method Room Air Room Air 02/03/24 08:22 Temperature Pulse Rate 72 Blood Pressure Pulse Oximetry 97 Oxygen Delivery Method Room Air BMI result Body Mass Index 46.1 Labs 01/29/24 22:50 01/29/24 22:50 Medications Medications Current Medications Acetaminophen (Acetaminophen 325 Mg Tablet) 650 mg PO Q6H PRN PRN Reason: Headache/Pain Mild Scale (1-3) Last Admin: 02/01/24 10:53 Dose: 650 mg Al Hydroxide/Mg Hydroxide (Magnesium Hydrox/Alum Hydrox 30 Ml Oral.Susp) 30 ml PO Q6H PRN PRN Reason: Heartburn/Nausea Amphetamine/Dextroamphetamine (Dextroamphetamine/Amphetamine Xr 10 Mg Cap.Er.24h) 30 mg PO DAILY [facility] Last Admin: 02/03/24 09:03 Dose: 30 mg Bisacodyl (Bisacodyl 5 Mg Tablet.Dr) 5 mg PO DAILY PRN PRN Reason: Constipation Bisacodyl (Bisacodyl 10 Mg Supp.Rect) 10 mg [place] DAILY PRN PRN Reason: Constipation Chlorpromazine HCl (Chlorpromazine Hcl 25 Mg Tablet) 50 mg PO QID PRN PRN Reason: Severe Anxiety Last Admin: 02/02/24 14:39 Dose: 50 mg Chlorpromazine HCl (Chlorpromazine Hcl 25 Mg Tablet) 75 mg PO BEDTIME PRN PRN Reason: sleep Last Admin: 02/02/24 21:04 Dose: 75 mg Clonazepam (Clonazepam 1 Mg Tablet) 1 mg PO BID [facility] Last Admin: 02/03/24 09:04 Dose: 1 mg Clonazepam (Clonazepam 1 Mg Tablet) 1 mg PO DAILY PRN PRN Reason: Anxiety Last Admin: 01/30/24 16:41 Dose: 1 mg Cyanocobalamin (Cyanocobalamin (Vitamin B-12) 1,000 Mcg Tablet) 1,000 mcg PO DAILY [facility] Last Admin: 02/03/24 09:04 Dose: 1,000 mcg Folic Acid (Folic Acid 1 Mg Tablet) 1 mg PO DAILY [facility] Last Admin: 02/03/24 09:30 Dose: 1 mg Hydroxyzine HCl (Hydroxyzine Hcl 50 Mg Tablet) 50 mg PO QID PRN PRN Reason: Anxiety Hydroxyzine HCl (Hydroxyzine Hcl 25 Mg Tablet) 25 mg PO Q6H PRN PRN Reason: Anxiety [place] Carbonate ([place] Carbonate 300 Mg Capsule) 600 mg PO BID [facility] Last Admin: 02/03/24 09:06 Dose: 600 mg Magnesium Hydroxide (Milk Of Magnesia 30 Ml Oral.Susp) 30 ml PO DAILY PRN PRN Reason: Constipation Multivitamins/Vitamin C (Multivitamin Tablet) 1 tab PO DAILY [facility] Last Admin: 02/03/24 09:04 Dose: 1 tab Nicotine (Nicotine 21 Mg Patch.Td24) 21 mg TRANSDERMA DAILY PRN PRN Reason: nicotine cravings Nicotine Polacrilex (Nicotine Polacrilex 2 Mg Gum) 4 mg BUCCAL Q2H PRN PRN Reason: Nicotine Cravings Perphenazine (Perphenazine 4 Mg Tablet) 4 mg PO TID PRN PRN Reason: grounding support Last Admin: 02/03/24 12:37 Dose: 4 mg Prazosin HCl (Prazosin Hcl 1 Mg Capsule) 8 mg PO BEDTIME [facility]; Protocol Last Admin: 02/02/24 21:01 Dose: 8 mg Propranolol HCl (Propranolol Hcl 10 Mg Tablet) 10 mg PO TID PRN; Protocol PRN Reason: Anxiety Last Admin: 02/02/24 11:03 Dose: 10 mg Trazodone HCl (Trazodone Hcl 100 Mg Tablet) 300 mg PO BEDTIME [facility] Last Admin: 02/02/24 21:04 Dose: 300 mg Venlafaxine HCl (Venlafaxine Hcl Er 75 Mg Cap.Er.24h) 75 mg PO DAILY [facility] Last Admin: 02/03/24 09:04 Dose: 75 mg Vitamin D (Cholecalciferol (Vitamin D3) 25 Mcg Tablet) 50 mcg PO DAILY [facility] Last Admin: 02/03/24 09:30 Dose: 50 mcg Allergies Allergies Allergy/AdvReac Type Severity Reaction Status Date / Time Sulfa (Sulfonamide Allergy Unknown Hives Verified 01/29/24 22:21 Antibiotics) [SULFA (SULFONAMIDE ANTIBIOTICS)] sulfamethoxazole Allergy Unknown Hives Verified 01/29/24 22:21 [From BACTRIM] trimethoprim [From BACTRIM] Allergy Unknown Hives Verified 01/29/24 22:21 lurasidone [From Latuda] AdvReac Intermediate anger, rage Verified 01/29/24 22:21 oseltamivir [From Tamiflu] AdvReac Sensation Verified 01/29/24 22:21 of bugs crawling on skin. lavender Allergy Severe Hives Uncoded 10/04/22 09:42 Assessment & Plan Assessment & Plan (1) Dissociative disorder: Status: Acute Code(s): F44.9 - Dissociative and conversion disorder, unspecified (2) PTSD (post-traumatic stress disorder): Status: Acute Code(s): F43.10 - Post-traumatic stress disorder, unspecified (3) MDD (major depressive disorder), recurrent severe, without psychosis: Status: Acute Code(s): F33.2 - Major depressive disorder, recurrent severe without psychotic features (4) Alcohol abuse: Status: Acute Code(s): F10.10 - Alcohol abuse, uncomplicated Plan PTSD, MDD, DID, Alcohol Abuse. Plan: Admit Pt signed a 3 day notice as she does not agree with teams behavioral plan. Collateral contacts No med changes currently. Pt does take Pristiq- will attempt to replace. Diagnostics as needed Assist pt is identification of resources for further programming. 02/02: Pt will have her yepez knitted doll placed in her belongings. She will keep her remaining items. Reason for continued inpatient stay Substantial Risk for: rapid decompensation Time Spent With Patient Time: Total time managing care of this patient today ____ minutes.
[2024-02-03] MEDS: chlorproMAZINE HCl 25 MG TABLET 50 MG PO (15:12)
[2024-02-03 20:00] VITALS: BP 116/71; PULSE 106; RESP 16; TEMP 36.4; O2SAT 97
[2024-02-03] MEDS: chlorproMAZINE HCl 25 MG TABLET 75 MG PO (20:35)
[2024-02-03] MEDS: Propranolol HCL 10 MG TABLET PO (20:35)
[2024-02-03] MEDS: traZODone HCL 100 MG TABLET 300 MG PO (20:36)
[2024-02-03] MEDS: Prazosin HCL 1 MG CAPSULE 8 MG PO (20:37)
[2024-02-04] MEDS: chlorproMAZINE HCl 25 MG TABLET 50 MG PO (06:12)
[2024-02-04 08:40] VITALS: BP 113/64; PULSE 75; TEMP 36.5; O2SAT 97
--- NOTE | 2024-02-04 08:45 | HO.PSYCHPN ---
Subjective Subjective Date of Service: 02/04/24 Reason For Visit: PTSD; MDD, DID, alcohol abuse Interim History: Met with patient; discussed with team; reviewed chart Patient reports that she is having strong intrusive thoughts right now and asks for Thorazine to be increased to which policy writer typist agreed. She said she was trying not to use Thorazine because her outpatient provider said antipsychotics are not the answer however policy writer typist discussed the role of PRNs and patient felt comfortable proceeding Mental Status Exam Mental Status Exam Patient Appearance: Fatigued and Appropriate Patient Orientation: Person, Place, Time and Situation Level of Consciousness: Alert Patient Behavior: Appropriate, Talkative, Cooperative, Distractible and Good Eye Contact Mood Description: Withdrawn, Depressed, Anxious and Apprehensive Affect Description: Flat Patient Cognition Impaired: No Ability to Follow Directions: Good Speech Pattern: Spontaneous Speech Memory Description: Episodic Impaired Hallucinations: None Delusions: Not Present Perceptual Disturbances: Depersonalization and Derealization Thought Process: Rumination Thought Content: positive for Perseveration and positive for Suicidal Ideation Depressive Symptoms: Increased Anxiety, Insomnia, Difficulty Sleeping, Loss of Int. in Activity, Hopelessness, Unhappiness, Increased Fatigue and Thoughts of /Suicide Judgement: Fair Diagnostics Vital Signs (24Hr): Vital Signs - 24 hr 02/03/24 20:00 02/04/24 08:40 Temperature 97.5 F 97.7 F Pulse Rate 106 H 75 Respiratory Rate 16 Blood Pressure 116/71 113/64 Pulse Oximetry 97 97 Oxygen Delivery Method Room Air Room Air BMI result Body Mass Index 46.1 Labs 01/29/24 22:50 01/29/24 22:50 Medications Medications Current Medications Acetaminophen (Acetaminophen 325 Mg Tablet) 650 mg PO Q6H PRN PRN Reason: Headache/Pain Mild Scale (1-3) Last Admin: 02/01/24 10:53 Dose: 650 mg Al Hydroxide/Mg Hydroxide (Magnesium Hydrox/Alum Hydrox 30 Ml Oral.Susp) 30 ml PO Q6H PRN PRN Reason: Heartburn/Nausea Amphetamine/Dextroamphetamine (Dextroamphetamine/Amphetamine Xr 10 Mg Cap.Er.24h) 30 mg PO DAILY [facility] Last Admin: 02/03/24 09:03 Dose: 30 mg Bisacodyl (Bisacodyl 5 Mg Tablet.Dr) 5 mg PO DAILY PRN PRN Reason: Constipation Bisacodyl (Bisacodyl 10 Mg Supp.Rect) 10 mg [place] DAILY PRN PRN Reason: Constipation Chlorpromazine HCl (Chlorpromazine Hcl 25 Mg Tablet) 50 mg PO QID PRN PRN Reason: Severe Anxiety Last Admin: 02/04/24 06:12 Dose: 50 mg Chlorpromazine HCl (Chlorpromazine Hcl 25 Mg Tablet) 75 mg PO BEDTIME PRN PRN Reason: sleep Last Admin: 02/03/24 20:35 Dose: 75 mg Clonazepam (Clonazepam 1 Mg Tablet) 1 mg PO BID [facility] Last Admin: 02/03/24 20:37 Dose: 1 mg Clonazepam (Clonazepam 1 Mg Tablet) 1 mg PO DAILY PRN PRN Reason: Anxiety Last Admin: 02/03/24 15:12 Dose: 1 mg Cyanocobalamin (Cyanocobalamin (Vitamin B-12) 1,000 Mcg Tablet) 1,000 mcg PO DAILY [facility] Last Admin: 02/03/24 09:04 Dose: 1,000 mcg Folic Acid (Folic Acid 1 Mg Tablet) 1 mg PO DAILY [facility] Last Admin: 02/03/24 09:30 Dose: 1 mg Hydroxyzine HCl (Hydroxyzine Hcl 50 Mg Tablet) 50 mg PO QID PRN PRN Reason: Anxiety Hydroxyzine HCl (Hydroxyzine Hcl 25 Mg Tablet) 25 mg PO Q6H PRN PRN Reason: Anxiety [place] Carbonate ([place] Carbonate 300 Mg Capsule) 600 mg PO BID [facility] Last Admin: 02/03/24 20:36 Dose: 600 mg Magnesium Hydroxide (Milk Of Magnesia 30 Ml Oral.Susp) 30 ml PO DAILY PRN PRN Reason: Constipation Multivitamins/Vitamin C (Multivitamin Tablet) 1 tab PO DAILY [facility] Last Admin: 02/03/24 09:04 Dose: 1 tab Nicotine (Nicotine 21 Mg Patch.Td24) 21 mg TRANSDERMA DAILY PRN PRN Reason: nicotine cravings Nicotine Polacrilex (Nicotine Polacrilex 2 Mg Gum) 4 mg [place] Q2H PRN PRN Reason: Nicotine Cravings Perphenazine (Perphenazine 4 Mg Tablet) 4 mg PO TID PRN PRN Reason: grounding support Last Admin: 02/03/24 20:36 Dose: 4 mg Prazosin HCl (Prazosin Hcl 1 Mg Capsule) 8 mg PO BEDTIME [facility]; Protocol Last Admin: 02/03/24 20:37 Dose: 8 mg Propranolol HCl (Propranolol Hcl 10 Mg Tablet) 10 mg PO TID PRN; Protocol PRN Reason: Anxiety Last Admin: 02/03/24 20:35 Dose: 10 mg Trazodone HCl (Trazodone Hcl 100 Mg Tablet) 300 mg PO BEDTIME [facility] Last Admin: 02/03/24 20:36 Dose: 300 mg Venlafaxine HCl (Venlafaxine Hcl Er 75 Mg Cap.Er.24h) 75 mg PO DAILY [facility] Last Admin: 02/03/24 09:04 Dose: 75 mg Vitamin D (Cholecalciferol (Vitamin D3) 25 Mcg Tablet) 50 mcg PO DAILY [facility] Last Admin: 02/03/24 09:30 Dose: 50 mcg Allergies Allergies Allergy/AdvReac Type Severity Reaction Status Date / Time Sulfa (Sulfonamide Allergy Unknown Hives Verified 01/29/24 22:21 Antibiotics) [SULFA (SULFONAMIDE ANTIBIOTICS)] sulfamethoxazole Allergy Unknown Hives Verified 01/29/24 22:21 [From BACTRIM] trimethoprim [From BACTRIM] Allergy Unknown Hives Verified 01/29/24 22:21 lurasidone [From Latuda] AdvReac Intermediate anger, rage Verified 01/29/24 22:21 oseltamivir [From Tamiflu] AdvReac Sensation Verified 01/29/24 22:21 of bugs crawling on skin. lavender Allergy Severe Hives Uncoded 10/04/22 09:42 Assessment & Plan Assessment & Plan (1) Dissociative disorder: Status: Acute Code(s): F44.9 - Dissociative and conversion disorder, unspecified (2) PTSD (post-traumatic stress disorder): Status: Acute Code(s): F43.10 - Post-traumatic stress disorder, unspecified (3) MDD (major depressive disorder), recurrent severe, without psychosis: Status: Acute Code(s): F33.2 - Major depressive disorder, recurrent severe without psychotic features (4) Alcohol abuse: Status: Acute Code(s): F10.10 - Alcohol abuse, uncomplicated Plan PTSD, MDD, DID, Alcohol Abuse. Plan: Admit Pt signed a 3 day notice as she does not agree with teams behavioral plan. Collateral contacts No med changes currently. Pt does take Pristiq- will attempt to replace. Diagnostics as needed Assist pt is identification of resources for further programming. 02/02: Pt will have her yepez knitted doll placed in her belongings. She will keep her remaining items. 02/03 Patient reports that she is having strong intrusive thoughts right now and asks for Thorazine to be increased to which policy writer typist agreed. She said she was trying not to use Thorazine because her outpatient provider said antipsychotics are not the answer however policy writer typist discussed the role of PRNs and patient felt comfortable proceeding -increase Thorazine p.r.n. to 75 mg q.i.d. p.r.n. Patient educated on: diagnosis and medication risk/benefits Informed Consent: understands Reason for continued inpatient stay Substantial Risk for: rapid decompensation Time Spent With Patient Time: Total time managing care of this patient today ____ minutes.
[2024-02-04] MEDS: Venlafaxine HCl ER 75 MG CAP.ER.24H PO (09:37)
[2024-02-04] MEDS: Lithium Carbonate 300 MG CAPSULE 600 MG PO ×2 (09:38→21:31)
[2024-02-04] MEDS: Cholecalciferol (Vitamin D3) 25 MCG TABLET 50 MCG PO (09:38)
[2024-02-04] MEDS: Multivitamin TABLET 1 TAB PO (09:38)
[2024-02-04] MEDS: clonazePAM 1 MG TABLET PO ×3 (09:39→21:31)
[2024-02-04] MEDS: Cyanocobalamin (Vitamin B-12) 1,000 MCG TABLET 1000 MCG PO (09:39)
[2024-02-04] MEDS: Dextroamphetamine/Amphetamine XR 10 MG CAP.ER.24H 30 MG PO (09:40)
[2024-02-04] MEDS: Folic Acid 1 MG TABLET PO (09:41)
[2024-02-04 12:00] VITALS: PULSE 90
[2024-02-04] MEDS: Propranolol HCL 10 MG TABLET PO (12:00)
[2024-02-04] MEDS: chlorproMAZINE HCl 25 MG TABLET 75 MG PO ×2 (15:33→21:36)
[2024-02-04 20:00] VITALS: BP 102/57; PULSE 82; RESP 16; TEMP 37.1; O2SAT 96
[2024-02-04] MEDS: traZODone HCL 100 MG TABLET 300 MG PO (21:31)
[2024-02-04] MEDS: Perphenazine 4 MG TABLET PO (21:31)
[2024-02-04] MEDS: Prazosin HCL 1 MG CAPSULE 8 MG PO (21:31)
[2024-02-05] MEDS: hydrOXYzine HCL 50 MG TABLET PO (02:05)
[2024-02-05] MEDS: chlorproMAZINE HCl 25 MG TABLET 75 MG PO ×2 (02:06→21:30)
[2024-02-05 08:31] VITALS: BP 93/51; PULSE 87; TEMP 36.4; O2SAT 97
[2024-02-05] MEDS: Dextroamphetamine/Amphetamine XR 10 MG CAP.ER.24H 30 MG PO (09:36)
[2024-02-05] MEDS: Cholecalciferol (Vitamin D3) 25 MCG TABLET 50 MCG PO (09:37)
[2024-02-05] MEDS: Lithium Carbonate 300 MG CAPSULE 600 MG PO ×2 (09:38→21:25)
[2024-02-05] MEDS: Multivitamin TABLET 1 TAB PO (09:38)
[2024-02-05] MEDS: Cyanocobalamin (Vitamin B-12) 1,000 MCG TABLET 1000 MCG PO (09:38)
[2024-02-05] MEDS: clonazePAM 1 MG TABLET PO ×3 (09:39→21:25)
[2024-02-05] MEDS: Folic Acid 1 MG TABLET PO (09:39)
[2024-02-05] MEDS: Venlafaxine HCl ER 75 MG CAP.ER.24H PO (09:40)
--- NOTE | 2024-02-05 10:10 | HO.PSYCHPN ---
Subjective Subjective Date of Service: 02/05/24 Reason For Visit: PTSD; MDD, DID, alcohol abuse Interim History: Met with patient; discussed with team Patient continues to report having intrusive thoughts; remains mostly isolated in her room. Says that increase Thorazine did not help and asks if it can go back down to 15 mg and instead increase Trilafon to which brief writer agreed. Patient has kept herself from self-injury, telling the nurse she does not want to lose her stuff Mental Status Exam Mental Status Exam Patient Appearance: Fatigued and Appropriate Patient Orientation: Person, Place, Time and Situation Level of Consciousness: Alert Patient Behavior: Appropriate, Talkative, Cooperative, Distractible and Good Eye Contact Mood Description: Withdrawn, Depressed, Anxious and Apprehensive Affect Description: Flat Patient Cognition Impaired: No Ability to Follow Directions: Good Speech Pattern: Spontaneous Speech Memory Description: Episodic Impaired Hallucinations: None Delusions: Not Present Perceptual Disturbances: Depersonalization and Derealization Thought Process: Rumination Thought Content: positive for Perseveration and positive for Suicidal Ideation Depressive Symptoms: Increased Anxiety, Insomnia, Difficulty Sleeping, Loss of Int. in Activity, Hopelessness, Unhappiness, Increased Fatigue and Thoughts of /Suicide Judgement: Fair Diagnostics Vital Signs (24Hr): Vital Signs - 24 hr 02/04/24 12:00 02/04/24 20:00 02/05/24 08:31 Temperature 98.8 F 97.6 F Pulse Rate 90 82 87 Respiratory Rate 16 Blood Pressure 102/57 L 93/51 L Pulse Oximetry 96 97 Oxygen Delivery Method Room Air Room Air BMI result Body Mass Index 46.1 Labs 01/29/24 22:50 01/29/24 22:50 Medications Medications Current Medications Acetaminophen (Acetaminophen 325 Mg Tablet) 650 mg PO Q6H PRN PRN Reason: Headache/Pain Mild Scale (1-3) Last Admin: 02/01/24 10:53 Dose: 650 mg Al Hydroxide/Mg Hydroxide (Magnesium Hydrox/Alum Hydrox 30 Ml Oral.Susp) 30 ml PO Q6H PRN PRN Reason: Heartburn/Nausea Amphetamine/Dextroamphetamine (Dextroamphetamine/Amphetamine Xr 10 Mg Cap.Er.24h) 30 mg PO DAILY [facility] Last Admin: 02/05/24 09:36 Dose: 30 mg Bisacodyl (Bisacodyl 5 Mg Tablet.Dr) 5 mg PO DAILY PRN PRN Reason: Constipation Bisacodyl (Bisacodyl 10 Mg Supp.Rect) 10 mg [place] DAILY PRN PRN Reason: Constipation Chlorpromazine HCl (Chlorpromazine Hcl 25 Mg Tablet) 75 mg PO BEDTIME PRN PRN Reason: sleep Last Admin: 02/04/24 21:36 Dose: 75 mg Chlorpromazine HCl (Chlorpromazine Hcl 25 Mg Tablet) 75 mg PO QID PRN PRN Reason: Severe Anxiety Last Admin: 02/05/24 02:06 Dose: 75 mg Clonazepam (Clonazepam 1 Mg Tablet) 1 mg PO BID [facility] Last Admin: 02/05/24 09:39 Dose: 1 mg Clonazepam (Clonazepam 1 Mg Tablet) 1 mg PO DAILY PRN PRN Reason: anxiety Last Admin: 02/04/24 14:55 Dose: 1 mg Cyanocobalamin (Cyanocobalamin (Vitamin B-12) 1,000 Mcg Tablet) 1,000 mcg PO DAILY [facility] Last Admin: 02/05/24 09:38 Dose: 1,000 mcg Folic Acid (Folic Acid 1 Mg Tablet) 1 mg PO DAILY [facility] Last Admin: 02/05/24 09:39 Dose: 1 mg Hydroxyzine HCl (Hydroxyzine Hcl 50 Mg Tablet) 50 mg PO QID PRN PRN Reason: Anxiety Last Admin: 02/05/24 02:05 Dose: 50 mg Hydroxyzine HCl (Hydroxyzine Hcl 25 Mg Tablet) 25 mg PO Q6H PRN PRN Reason: Anxiety [place] Carbonate ([place] Carbonate 300 Mg Capsule) 600 mg PO BID [facility] Last Admin: 02/05/24 09:38 Dose: 600 mg Magnesium Hydroxide (Milk Of Magnesia 30 Ml Oral.Susp) 30 ml PO DAILY PRN PRN Reason: Constipation Multivitamins/Vitamin C (Multivitamin Tablet) 1 tab PO DAILY [facility] Last Admin: 02/05/24 09:38 Dose: 1 tab Nicotine (Nicotine 21 Mg Patch.Td24) 21 mg TRANSDERMA DAILY PRN PRN Reason: nicotine cravings Nicotine Polacrilex (Nicotine Polacrilex 2 Mg Gum) 4 mg [place]CC[place] Q2H PRN PRN Reason: Nicotine Cravings Perphenazine (Perphenazine 4 Mg Tablet) 4 mg PO TID PRN PRN Reason: grounding support Last Admin: 02/04/24 21:31 Dose: 4 mg Prazosin HCl (Prazosin Hcl 1 Mg Capsule) 8 mg PO BEDTIME [facility]; Protocol Last Admin: 02/04/24 21:31 Dose: 8 mg Propranolol HCl (Propranolol Hcl 10 Mg Tablet) 10 mg PO TID PRN; Protocol PRN Reason: Anxiety Last Admin: 02/04/24 12:00 Dose: 10 mg Trazodone HCl (Trazodone Hcl 100 Mg Tablet) 300 mg PO BEDTIME [facility] Last Admin: 02/04/24 21:31 Dose: 300 mg Venlafaxine HCl (Venlafaxine Hcl Er 75 Mg Cap.Er.24h) 75 mg PO DAILY [facility] Last Admin: 02/05/24 09:40 Dose: 75 mg Vitamin D (Cholecalciferol (Vitamin D3) 25 Mcg Tablet) 50 mcg PO DAILY [facility] Last Admin: 02/05/24 09:37 Dose: 50 mcg Allergies Allergies Allergy/AdvReac Type Severity Reaction Status Date / Time Sulfa (Sulfonamide Allergy Unknown Hives Verified 01/29/24 22:21 Antibiotics) [SULFA (SULFONAMIDE ANTIBIOTICS)] sulfamethoxazole Allergy Unknown Hives Verified 01/29/24 22:21 [From BACTRIM] trimethoprim [From BACTRIM] Allergy Unknown Hives Verified 01/29/24 22:21 lurasidone [From Latuda] AdvReac Intermediate anger, rage Verified 01/29/24 22:21 oseltamivir [From Tamiflu] AdvReac Sensation Verified 01/29/24 22:21 of bugs crawling on skin. lavender Allergy Severe Hives Uncoded 10/04/22 09:42 Assessment & Plan Assessment & Plan (1) Dissociative disorder: Status: Acute Code(s): F44.9 - Dissociative and conversion disorder, unspecified (2) PTSD (post-traumatic stress disorder): Status: Acute Code(s): F43.10 - Post-traumatic stress disorder, unspecified (3) MDD (major depressive disorder), recurrent severe, without psychosis: Status: Acute Code(s): F33.2 - Major depressive disorder, recurrent severe without psychotic features (4) Alcohol abuse: Status: Acute Code(s): F10.10 - Alcohol abuse, uncomplicated Plan PTSD, MDD, DID, Alcohol Abuse. Plan: Admit Pt signed a 3 day notice as she does not agree with teams behavioral plan. Collateral contacts No med changes currently. Pt does take Pristiq- will attempt to replace. Diagnostics as needed Assist pt is identification of resources for further programming. 02/02: Pt will have her yepez knitted doll placed in her belongings. She will keep her remaining items. 02/03 Patient reports that she is having strong intrusive thoughts right now and asks for Thorazine to be increased to which brief writer agreed. She said she was trying not to use Thorazine because her outpatient provider said antipsychotics are not the answer however brief writer discussed the role of PRNs and patient felt comfortable proceeding -increase Thorazine p.r.n. to 75 mg q.i.d. p.r.n. 02/04 Patient continues to report having intrusive thoughts; remains mostly isolated in her room. Says that increase Thorazine did not help and asks if it can go back down to 15 mg and instead increase Trilafon to which brief writer agreed. Patient has kept herself from self-injury, telling the nurse she does not want to lose her stuff - lower Thorazine back to 50 mg q.i.d. p.r.n -increase fluphenazine p.r.n. to 6 mg - Patient educated on: diagnosis and medication risk/benefits Informed Consent: understands Reason for continued inpatient stay Substantial Risk for: inability to function and rapid decompensation Time Spent With Patient Time: Total time managing care of this patient today ____ minutes.
[2024-02-05] MEDS: Perphenazine 4 MG TABLET PO (11:17)
[2024-02-05] MEDS: Acetaminophen 325 MG TABLET 650 MG PO (11:17)
[2024-02-05] MEDS: Perphenazine 2 MG TABLET 6 MG PO (18:29)
[2024-02-05 20:00] VITALS: BP 111/71; PULSE 96; RESP 15; TEMP 36.4; O2SAT 89
[2024-02-05] MEDS: Prazosin HCL 1 MG CAPSULE 8 MG PO (21:24)
[2024-02-05] MEDS: traZODone HCL 100 MG TABLET 300 MG PO (21:24)
[2024-02-06 08:17] VITALS: BP 108/55; PULSE 75; TEMP 36.5; O2SAT 97
[2024-02-06] MEDS: Cholecalciferol (Vitamin D3) 25 MCG TABLET 50 MCG PO (08:39)
[2024-02-06] MEDS: Dextroamphetamine/Amphetamine XR 10 MG CAP.ER.24H 30 MG PO (08:39)
[2024-02-06] MEDS: Venlafaxine HCl ER 75 MG CAP.ER.24H PO (08:40)
[2024-02-06] MEDS: Cyanocobalamin (Vitamin B-12) 1,000 MCG TABLET 1000 MCG PO (08:40)
[2024-02-06] MEDS: Lithium Carbonate 300 MG CAPSULE 600 MG PO ×2 (08:40→20:31)
[2024-02-06] MEDS: clonazePAM 1 MG TABLET PO ×3 (08:41→20:31)
[2024-02-06] MEDS: Multivitamin TABLET 1 TAB PO (08:41)
[2024-02-06] MEDS: Folic Acid 1 MG TABLET PO (08:41)
[2024-02-06] MEDS: Perphenazine 2 MG TABLET 6 MG PO ×2 (09:53→19:28)
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
[2024-02-06 20:25] VITALS: BP 112/59; PULSE 87; RESP 16; TEMP 36.7; O2SAT 99
[2024-02-06] MEDS: chlorproMAZINE HCl 25 MG TABLET 75 MG PO (20:31)
[2024-02-06] MEDS: Prazosin HCL 5 MG CAPSULE 10 MG PO (20:31)
[2024-02-06] MEDS: lamoTRIgine 25 MG TABLET PO (20:31)
[2024-02-06] MEDS: traZODone HCL 100 MG TABLET 300 MG PO (20:31)
[2024-02-07 08:00] VITALS: BP 96/53; PULSE 83; RESP 18; TEMP 36.8; O2SAT 96
[2024-02-07] MEDS: Lithium Carbonate 300 MG CAPSULE 600 MG PO ×2 (08:38→20:51)
[2024-02-07] MEDS: Folic Acid 1 MG TABLET PO (08:38)
[2024-02-07] MEDS: clonazePAM 1 MG TABLET PO ×3 (08:38→20:52)
[2024-02-07] MEDS: Multivitamin TABLET 1 TAB PO (08:38)
[2024-02-07] MEDS: Venlafaxine HCl ER 75 MG CAP.ER.24H PO (08:38)
[2024-02-07] MEDS: Cholecalciferol (Vitamin D3) 25 MCG TABLET 50 MCG PO (08:38)
[2024-02-07] MEDS: Cyanocobalamin (Vitamin B-12) 1,000 MCG TABLET 1000 MCG PO (08:38)
[2024-02-07] MEDS: Dextroamphetamine/Amphetamine XR 10 MG CAP.ER.24H 30 MG PO (08:39)
[2024-02-07] MEDS: Perphenazine 2 MG TABLET 6 MG PO ×2 (09:35→18:28)
[2024-02-07] MEDS: hydrOXYzine HCL 50 MG TABLET PO (09:35)
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
[2024-02-07] MEDS: chlorproMAZINE HCl 25 MG TABLET 50 MG PO (12:08)
[2024-02-07 20:00] VITALS: BP 139/74; PULSE 88; RESP 14; O2SAT 95
[2024-02-07] MEDS: Prazosin HCL 5 MG CAPSULE 10 MG PO (20:50)
[2024-02-07] MEDS: chlorproMAZINE HCl 25 MG TABLET 75 MG PO (20:51)
[2024-02-07] MEDS: traZODone HCL 100 MG TABLET 300 MG PO (20:51)
[2024-02-07] MEDS: lamoTRIgine 25 MG TABLET PO (20:51)
[2024-02-08] MEDS: Dextroamphetamine/Amphetamine XR 10 MG CAP.ER.24H 30 MG PO (08:48)
[2024-02-08] MEDS: Folic Acid 1 MG TABLET PO (08:48)
[2024-02-08] MEDS: Cholecalciferol (Vitamin D3) 25 MCG TABLET 50 MCG PO (08:48)
[2024-02-08] MEDS: clonazePAM 1 MG TABLET PO ×4 (08:48→20:33)
[2024-02-08] MEDS: Lithium Carbonate 300 MG CAPSULE 600 MG PO ×2 (08:48→20:33)
[2024-02-08] MEDS: Cyanocobalamin (Vitamin B-12) 1,000 MCG TABLET 1000 MCG PO (08:49)
[2024-02-08] MEDS: Venlafaxine HCl ER 75 MG CAP.ER.24H PO (08:49)
[2024-02-08] MEDS: Multivitamin TABLET 1 TAB PO (08:49)
[2024-02-08 08:52] VITALS: BP 110/56; PULSE 80; RESP 16; TEMP 37.1; O2SAT 96
[2024-02-08] MEDS: Perphenazine 2 MG TABLET 6 MG PO ×2 (10:09→17:50)
--- NOTE | 2024-02-08 10:36 | HO.PSYCHPN ---
Subjective Subjective Date of Service: 02/08/24 Reason For Visit: PTSD; MDD, DID, alcohol abuse Subjective Notes: Conditional Voluntary Healthcare Proxy: No Guardianship: No Medical Problems Affecting Mental Status: No Interim History: Anxious, SI, Intrusive thoughts, self-harming with head banging, believes they have a concussion, reports vertigo, nausea, poor memory. Discussed health/safety-will get CAT, Discussed behavioral plan-will place on one to one-pt reports one to one helps to interrupt their behavioral pattern and if they have enough time away from the behavior it is easier not to engage in SIBS. Discussed distress with election results and the risks feared with upcoming administration changes. Medication Compliance: Yes Side effects from medications: No Attending Groups: Intermittent Review of Systems Acute medical concerns: No Medical Review of Systems: unchanged Review of Systems Review of Systems CAT ordered for head banging sx. Mental Status Exam Mental Status Exam Patient Appearance: Fatigued and Appropriate Patient Orientation: Person, Place, Time and Situation Level of Consciousness: Alert Patient Behavior: Appropriate, Talkative, Cooperative, Distractible and Good Eye Contact Mood Description: Withdrawn, Depressed, Anxious and Apprehensive Affect Description: Flat Patient Cognition Impaired: No Ability to Follow Directions: Good Speech Pattern: Spontaneous Speech Memory Description: Episodic Impaired Hallucinations: None Delusions: Not Present Perceptual Disturbances: Depersonalization and Derealization Thought Process: Rumination Thought Content: positive for Perseveration and positive for Suicidal Ideation Depressive Symptoms: Increased Anxiety, Insomnia, Difficulty Sleeping, Loss of Int. in Activity, Hopelessness, Unhappiness, Increased Fatigue and Thoughts of /Suicide Judgement: Fair Diagnostics Vital Signs (24Hr): Vital Signs - 24 hr 02/07/24 20:00 02/08/24 08:52 Temperature 98.7 F Pulse Rate 88 80 Respiratory Rate 14 16 Blood Pressure 139/74 110/56 L Pulse Oximetry 95 96 Oxygen Delivery Method Room Air Room Air BMI result Body Mass Index 46.1 Labs 01/29/24 22:50 01/29/24 22:50 Medications Medications Current Medications Acetaminophen (Acetaminophen 325 Mg Tablet) 650 mg PO Q6H PRN PRN Reason: Headache/Pain Mild Scale (1-3) Last Admin: 02/05/24 11:17 Dose: 650 mg Al Hydroxide/Mg Hydroxide (Magnesium Hydrox/Alum Hydrox 30 Ml Oral.Susp) 30 ml PO Q6H PRN PRN Reason: Heartburn/Nausea Amphetamine/Dextroamphetamine (Dextroamphetamine/Amphetamine Xr 10 Mg Cap.Er.24h) 30 mg PO DAILY [facility] Last Admin: 02/08/24 08:48 Dose: 30 mg Bisacodyl (Bisacodyl 5 Mg Tablet.Dr) 5 mg PO DAILY PRN PRN Reason: Constipation Bisacodyl (Bisacodyl 10 Mg Supp.Rect) 10 mg [place] DAILY PRN PRN Reason: Constipation Chlorpromazine HCl (Chlorpromazine Hcl 25 Mg Tablet) 75 mg PO BEDTIME PRN PRN Reason: sleep Last Admin: 02/07/24 20:51 Dose: 75 mg Chlorpromazine HCl (Chlorpromazine Hcl 25 Mg Tablet) 50 mg PO QID PRN PRN Reason: Severe Anxiety Last Admin: 02/07/24 12:08 Dose: 50 mg Clonazepam (Clonazepam 1 Mg Tablet) 1 mg PO BID [facility] Last Admin: 02/08/24 08:48 Dose: 1 mg Clonazepam (Clonazepam 1 Mg Tablet) 1 mg PO DAILY PRN PRN Reason: anxiety Last Admin: 02/07/24 13:30 Dose: 1 mg Cyanocobalamin (Cyanocobalamin (Vitamin B-12) 1,000 Mcg Tablet) 1,000 mcg PO DAILY [facility] Last Admin: 02/08/24 08:49 Dose: 1,000 mcg Folic Acid (Folic Acid 1 Mg Tablet) 1 mg PO DAILY [facility] Last Admin: 02/08/24 08:48 Dose: 1 mg Hydroxyzine HCl (Hydroxyzine Hcl 50 Mg Tablet) 50 mg PO QID PRN PRN Reason: Anxiety Last Admin: 02/07/24 09:35 Dose: 50 mg Hydroxyzine HCl (Hydroxyzine Hcl 25 Mg Tablet) 25 mg PO Q6H PRN PRN Reason: Anxiety Lamotrigine (Lamotrigine 25 Mg Tablet) 25 mg PO BEDTIME [facility] Last Admin: 02/07/24 20:51 Dose: 25 mg [place] Carbonate ([place] Carbonate 300 Mg Capsule) 600 mg PO BID [facility] Last Admin: 02/08/24 08:48 Dose: 600 mg Magnesium Hydroxide (Milk Of Magnesia 30 Ml Oral.Susp) 30 ml PO DAILY PRN PRN Reason: Constipation Multivitamins/Vitamin C (Multivitamin Tablet) 1 tab PO DAILY [facility] Last Admin: 02/08/24 08:49 Dose: 1 tab Nicotine Polacrilex (Nicotine Polacrilex 2 Mg Gum) 4 mg [place]CCAL Q2H PRN PRN Reason: Nicotine Cravings Perphenazine (Perphenazine 2 Mg Tablet) 6 mg PO TID PRN PRN Reason: grounding support Last Admin: 02/08/24 10:09 Dose: 6 mg Prazosin HCl (Prazosin Hcl 5 Mg Capsule) 10 mg PO BEDTIME [facility]; Protocol Last Admin: 02/07/24 20:50 Dose: 10 mg Propranolol HCl (Propranolol Hcl 10 Mg Tablet) 10 mg PO TID PRN; Protocol PRN Reason: Anxiety Last Admin: 02/04/24 12:00 Dose: 10 mg Trazodone HCl (Trazodone Hcl 100 Mg Tablet) 300 mg PO BEDTIME [facility] Last Admin: 02/07/24 20:51 Dose: 300 mg Venlafaxine HCl (Venlafaxine Hcl Er 75 Mg Cap.Er.24h) 75 mg PO DAILY [facility] Last Admin: 02/08/24 08:49 Dose: 75 mg Vitamin D (Cholecalciferol (Vitamin D3) 25 Mcg Tablet) 50 mcg PO DAILY [facility] Last Admin: 02/08/24 08:48 Dose: 50 mcg Allergies Allergies Allergy/AdvReac Type Severity Reaction Status Date / Time Sulfa (Sulfonamide Allergy Unknown Hives Verified 01/29/24 22:21 Antibiotics) [SULFA (SULFONAMIDE ANTIBIOTICS)] sulfamethoxazole Allergy Unknown Hives Verified 01/29/24 22:21 [From BACTRIM] trimethoprim [From BACTRIM] Allergy Unknown Hives Verified 01/29/24 22:21 lurasidone [From Latuda] AdvReac Intermediate anger, rage Verified 01/29/24 22:21 oseltamivir [From Tamiflu] AdvReac Sensation Verified 01/29/24 22:21 of bugs crawling on skin. lavender Allergy Severe Hives Uncoded 10/04/22 09:42 Assessment & Plan Assessment & Plan (1) Dissociative disorder: Status: Acute Code(s): F44.9 - Dissociative and conversion disorder, unspecified (2) PTSD (post-traumatic stress disorder): Status: Acute Code(s): F43.10 - Post-traumatic stress disorder, unspecified (3) MDD (major depressive disorder), recurrent severe, without psychosis: Status: Acute Code(s): F33.2 - Major depressive disorder, recurrent severe without psychotic features (4) Alcohol abuse: Status: Acute Code(s): F10.10 - Alcohol abuse, uncomplicated Plan PTSD, MDD, DID, Alcohol Abuse. Plan: Admit Pt signed a 3 day notice as she does not agree with teams behavioral plan. Collateral contacts No med changes currently. Pt does take Pristiq- will attempt to replace. Diagnostics as needed Assist pt is identification of resources for further programming. 02/02: Pt will have her yepez knitted doll placed in her belongings. She will keep her remaining items. 02/03 Patient reports that she is having strong intrusive thoughts right now and asks for Thorazine to be increased to which junior underwriter agreed. She said she was trying not to use Thorazine because her outpatient provider said antipsychotics are not the answer however junior underwriter discussed the role of PRNs and patient felt comfortable proceeding -increase Thorazine p.r.n. to 75 mg q.i.d. p.r.n. 02/04 Patient continues to report having intrusive thoughts; remains mostly isolated in her room. Says that increase Thorazine did not help and asks if it can go back down to 15 mg and instead increase Trilafon to which junior underwriter agreed. Patient has kept herself from self-injury, telling the nurse she does not want to lose her stuff - lower Thorazine back to 50 mg q.i.d. p.r.n -increase fluphenazine p.r.n. to 6 mg 02/07- Change Klonopin to 1 mg tid scheduled, DC prn One to one with re-eval on 02/08 230pm - Reason for continued inpatient stay Substantial Risk for: rapid decompensation Time Spent With Patient Time: Total time managing care of this patient today ____ minutes.
[2024-02-08] MEDS: chlorproMAZINE HCl 25 MG TABLET 50 MG PO ×2 (11:11→17:51)
[2024-02-08 20:00] VITALS: BP 118/72; PULSE 77; RESP 16; TEMP 36.8; O2SAT 97
[2024-02-08] MEDS: traZODone HCL 100 MG TABLET 300 MG PO (20:32)
[2024-02-08] MEDS: chlorproMAZINE HCl 25 MG TABLET 75 MG PO (20:33)
[2024-02-08] MEDS: Acetaminophen 325 MG TABLET 650 MG PO (20:33)
[2024-02-08] MEDS: Prazosin HCL 5 MG CAPSULE 10 MG PO (20:33)
[2024-02-08] MEDS: lamoTRIgine 25 MG TABLET PO (20:33)
[2024-02-09] MEDS: Cholecalciferol (Vitamin D3) 25 MCG TABLET 50 MCG PO (08:31)
[2024-02-09] MEDS: Folic Acid 1 MG TABLET PO (08:31)
[2024-02-09] MEDS: Dextroamphetamine/Amphetamine XR 10 MG CAP.ER.24H 30 MG PO (08:31)
[2024-02-09] MEDS: Lithium Carbonate 300 MG CAPSULE 600 MG PO ×2 (08:31→21:29)
[2024-02-09] MEDS: Multivitamin TABLET 1 TAB PO (08:31)
[2024-02-09] MEDS: Cyanocobalamin (Vitamin B-12) 1,000 MCG TABLET 1000 MCG PO (08:31)
[2024-02-09] MEDS: clonazePAM 1 MG TABLET PO ×3 (08:31→21:27)
[2024-02-09] MEDS: Venlafaxine HCl ER 75 MG CAP.ER.24H PO (08:31)
[2024-02-09 08:58] VITALS: BP 115/59; PULSE 72; RESP 18; TEMP 36.9; O2SAT 95
[2024-02-09] MEDS: hydrOXYzine HCL 50 MG TABLET PO (10:10)
[2024-02-09] MEDS: chlorproMAZINE HCl 25 MG TABLET 50 MG PO (10:10)
[2024-02-09 15:40] VITALS: BP 103/62; PULSE 103
[2024-02-09] MEDS: Propranolol HCL 10 MG TABLET PO (15:40)
[2024-02-09] MEDS: Perphenazine 2 MG TABLET 6 MG PO (15:40)
--- NOTE | 2024-02-09 15:51 | HO.PSYCHPN ---
Subjective Subjective Date of Service: 02/09/24 Reason For Visit: PTSD; MDD, DID, alcohol abuse Subjective Notes: Conditional Voluntary Healthcare Proxy: No Guardianship: No Medical Problems Affecting Mental Status: No Interim History: Have you ever been addicted to something? 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 Discussed their disagreement with behavioral planning limitations. Will review with team. States they will need a few days of one to one to break the pattern. Considering TDN- If I cannot break the cycle here I will just go home and do it, I don't know what else to do. It is a release for me. Discussed primary, secondary, tertiary release planning which we will begin. Medication Compliance: Yes Side effects from medications: No Attending Groups: No Review of Systems CAT pending Medical Review of Systems: unchanged Review of Systems Review of Systems CAT pending- head banging Mental Status Exam Mental Status Exam Patient Appearance: Fatigued and Appropriate Patient Orientation: Person, Place, Time and Situation Level of Consciousness: Alert Patient Behavior: Appropriate, Talkative, Cooperative, Distractible and Good Eye Contact Mood Description: Withdrawn, Depressed, Anxious and Apprehensive Affect Description: Flat Patient Cognition Impaired: No Ability to Follow Directions: Good Speech Pattern: Spontaneous Speech Memory Description: Episodic Impaired Hallucinations: None Delusions: Not Present Perceptual Disturbances: Depersonalization and Derealization Thought Process: Rumination Thought Content: positive for Perseveration and positive for Suicidal Ideation Depressive Symptoms: Increased Anxiety, Insomnia, Difficulty Sleeping, Loss of Int. in Activity, Hopelessness, Unhappiness, Increased Fatigue and Thoughts of /Suicide Judgement: Fair Diagnostics Vital Signs (24Hr): Vital Signs - 24 hr 02/08/24 20:00 02/09/24 08:58 02/09/24 15:40 Temperature 98.2 F 98.5 F Pulse Rate 77 72 103 H Respiratory Rate 16 18 Blood Pressure 118/72 115/59 L 103/62 Pulse Oximetry 97 95 Oxygen Delivery Method Room Air Room Air BMI result Body Mass Index 46.1 Labs 01/29/24 22:50 01/29/24 22:50 Imaging Radiology Impressions: ITS Impressions Head CT 02/08/24 14:56 IMPRESSION: No acute intracranial pathology. Electronically signed by: Anatoliy Sims MD 02/09/2024 11:01 AM [facility] Medications Medications Current Medications Acetaminophen (Acetaminophen 325 Mg Tablet) 650 mg PO Q6H PRN PRN Reason: Headache/Pain Mild Scale (1-3) Last Admin: 02/08/24 20:33 Dose: 650 mg Al Hydroxide/Mg Hydroxide (Magnesium Hydrox/Alum Hydrox 30 Ml Oral.Susp) 30 ml PO Q6H PRN PRN Reason: Heartburn/Nausea Amphetamine/Dextroamphetamine (Dextroamphetamine/Amphetamine Xr 10 Mg Cap.Er.24h) 30 mg PO DAILY [facility] Last Admin: 02/09/24 08:31 Dose: 30 mg Bisacodyl (Bisacodyl 5 Mg Tablet.Dr) 5 mg PO DAILY PRN PRN Reason: Constipation Bisacodyl (Bisacodyl 10 Mg Supp.Rect) 10 mg [place] DAILY PRN PRN Reason: Constipation Chlorpromazine HCl (Chlorpromazine Hcl 25 Mg Tablet) 75 mg PO BEDTIME PRN PRN Reason: sleep Last Admin: 02/08/24 20:33 Dose: 75 mg Chlorpromazine HCl (Chlorpromazine Hcl 25 Mg Tablet) 50 mg PO QID PRN PRN Reason: Severe Anxiety Last Admin: 02/09/24 10:10 Dose: 50 mg Clonazepam (Clonazepam 1 Mg Tablet) 1 mg PO TID [facility] Last Admin: 02/09/24 14:29 Dose: 1 mg Cyanocobalamin (Cyanocobalamin (Vitamin B-12) 1,000 Mcg Tablet) 1,000 mcg PO DAILY [facility] Last Admin: 02/09/24 08:31 Dose: 1,000 mcg Folic Acid (Folic Acid 1 Mg Tablet) 1 mg PO DAILY [facility] Last Admin: 02/09/24 08:31 Dose: 1 mg Hydroxyzine HCl (Hydroxyzine Hcl 50 Mg Tablet) 50 mg PO QID PRN PRN Reason: Anxiety Last Admin: 02/09/24 10:10 Dose: 50 mg Hydroxyzine HCl (Hydroxyzine Hcl 25 Mg Tablet) 25 mg PO Q6H PRN PRN Reason: Anxiety Lamotrigine (Lamotrigine 25 Mg Tablet) 25 mg PO BEDTIME [facility] Last Admin: 02/08/24 20:33 Dose: 25 mg [place] Carbonate ([place] Carbonate 300 Mg Capsule) 600 mg PO BID [facility] Last Admin: 02/09/24 08:31 Dose: 600 mg Magnesium Hydroxide (Milk Of Magnesia 30 Ml Oral.Susp) 30 ml PO DAILY PRN PRN Reason: Constipation Multivitamins/Vitamin C (Multivitamin Tablet) 1 tab PO DAILY [facility] Last Admin: 02/09/24 08:31 Dose: 1 tab Nicotine Polacrilex (Nicotine Polacrilex 2 Mg Gum) 4 mg BUCCAL Q2H PRN PRN Reason: Nicotine Cravings Perphenazine (Perphenazine 2 Mg Tablet) 6 mg PO TID PRN PRN Reason: grounding support Last Admin: 02/09/24 15:40 Dose: 6 mg Prazosin HCl (Prazosin Hcl 5 Mg Capsule) 10 mg PO BEDTIME [facility]; Protocol Last Admin: 02/08/24 20:33 Dose: 10 mg Propranolol HCl (Propranolol Hcl 10 Mg Tablet) 10 mg PO TID PRN; Protocol PRN Reason: Anxiety Last Admin: 02/09/24 15:40 Dose: 10 mg Trazodone HCl (Trazodone Hcl 100 Mg Tablet) 300 mg PO BEDTIME [facility] Last Admin: 02/08/24 20:32 Dose: 300 mg Venlafaxine HCl (Venlafaxine Hcl Er 75 Mg Cap.Er.24h) 75 mg PO DAILY [facility] Last Admin: 02/09/24 08:31 Dose: 75 mg Vitamin D (Cholecalciferol (Vitamin D3) 25 Mcg Tablet) 50 mcg PO DAILY [facility] Last Admin: 02/09/24 08:31 Dose: 50 mcg Allergies Allergies Allergy/AdvReac Type Severity Reaction Status Date / Time Sulfa (Sulfonamide Allergy Unknown Hives Verified 01/29/24 22:21 Antibiotics) [SULFA (SULFONAMIDE ANTIBIOTICS)] sulfamethoxazole Allergy Unknown Hives Verified 01/29/24 22:21 [From BACTRIM] trimethoprim [From BACTRIM] Allergy Unknown Hives Verified 01/29/24 22:21 lurasidone [From Latuda] AdvReac Intermediate anger, rage Verified 01/29/24 22:21 oseltamivir [From Tamiflu] AdvReac Sensation Verified 01/29/24 22:21 of bugs crawling on skin. lavender Allergy Severe Hives Uncoded 10/04/22 09:42 Assessment & Plan Assessment & Plan (1) Dissociative disorder: Status: Acute Code(s): F44.9 - Dissociative and conversion disorder, unspecified (2) PTSD (post-traumatic stress disorder): Status: Acute Code(s): F43.10 - Post-traumatic stress disorder, unspecified (3) MDD (major depressive disorder), recurrent severe, without psychosis: Status: Acute Code(s): F33.2 - Major depressive disorder, recurrent severe without psychotic features (4) Alcohol abuse: Status: Acute Code(s): F10.10 - Alcohol abuse, uncomplicated Plan PTSD, MDD, DID, Alcohol Abuse. Plan: Admit Pt signed a 3 day notice as she does not agree with teams behavioral plan. Collateral contacts No med changes currently. Pt does take Pristiq- will attempt to replace. Diagnostics as needed Assist pt is identification of resources for further programming. 02/02: Pt will have her yepez knitted doll placed in her belongings. She will keep her remaining items. 02/03 Patient reports that she is having strong intrusive thoughts right now and asks for Thorazine to be increased to which program writer agreed. She said she was trying not to use Thorazine because her outpatient provider said antipsychotics are not the answer however program writer discussed the role of PRNs and patient felt comfortable proceeding -increase Thorazine p.r.n. to 75 mg q.i.d. p.r.n. 02/04 Patient continues to report having intrusive thoughts; remains mostly isolated in her room. Says that increase Thorazine did not help and asks if it can go back down to 15 mg and instead increase Trilafon to which program writer agreed. Patient has kept herself from self-injury, telling the nurse she does not want to lose her stuff - lower Thorazine back to 50 mg q.i.d. p.r.n -increase fluphenazine p.r.n. to 6 mg 02/08 Continue regime. Reason for continued inpatient stay Substantial Risk for: rapid decompensation Time Spent With Patient Time: Total time managing care of this patient today ____ minutes.
[2024-02-09 19:56] VITALS: BP 112/65; PULSE 75; RESP 18; TEMP 36.9; O2SAT 93
[2024-02-09] MEDS: lamoTRIgine 25 MG TABLET PO (21:28)
[2024-02-09] MEDS: Prazosin HCL 5 MG CAPSULE 10 MG PO (21:29)
[2024-02-09] MEDS: traZODone HCL 100 MG TABLET 300 MG PO (21:29)
[2024-02-09] MEDS: Acetaminophen 325 MG TABLET 650 MG PO (21:29)
[2024-02-09] MEDS: chlorproMAZINE HCl 25 MG TABLET 75 MG PO (21:30)
[2024-02-10 08:00] VITALS: BP 138/69; PULSE 68; RESP 16; TEMP 36.7; O2SAT 97
[2024-02-10] MEDS: Multivitamin TABLET 1 TAB PO (09:01)
[2024-02-10] MEDS: Cyanocobalamin (Vitamin B-12) 1,000 MCG TABLET 1000 MCG PO (09:01)
[2024-02-10] MEDS: Acetaminophen 325 MG TABLET 650 MG PO (09:01)
[2024-02-10] MEDS: Venlafaxine HCl ER 75 MG CAP.ER.24H PO (09:02)
[2024-02-10] MEDS: Folic Acid 1 MG TABLET PO (09:02)
[2024-02-10] MEDS: Lithium Carbonate 300 MG CAPSULE 600 MG PO ×2 (09:02→20:01)
[2024-02-10] MEDS: clonazePAM 1 MG TABLET PO ×3 (09:02→20:03)
[2024-02-10] MEDS: Cholecalciferol (Vitamin D3) 25 MCG TABLET 50 MCG PO (09:02)
[2024-02-10] MEDS: Dextroamphetamine/Amphetamine XR 10 MG CAP.ER.24H 30 MG PO (09:02)
[2024-02-10] MEDS: Perphenazine 2 MG TABLET 6 MG PO (12:08)
[2024-02-10 12:09] VITALS: BP 134/74; PULSE 97
[2024-02-10] MEDS: Propranolol HCL 10 MG TABLET PO (12:09)
[2024-02-10] MEDS: OLANZapine ODT 10 MG TAB.RAPDIS TRANSLINGU ×2 (15:08→20:03)
--- NOTE | 2024-02-10 16:06 | P.PNPSI_ITS ---
Subjective Subjective Date of Service: 02/10/24 Reason For Visit: PTSD; MDD, DID, alcohol abuse Subjective Notes: Conditional Voluntary Healthcare Proxy: No Guardianship: No Medical Problems Affecting Mental Status: No Interim History: Continues to stuggle with self harming thoughts and sx. Discussed the benefit of 1:1. and if she were able to have a 1:1 for a longer period of time that this would interrupt her pattern of self harm and help her create a new pattern. Discussed meds. By history, Olanzapine has helped. We will DC Chlorpromazine prn and begin Olanzapine 10 mg bid as by history it has had significant efficacy and has offered relief. Reviewed with team. Medication Compliance: Yes Side effects from medications: No Attending Groups: Intermittent Review of Systems Acute medical concerns: No Medical Review of Systems: unchanged Review of Systems Review of Systems area on L cheek-?pimple, ?cellulitis beginning, will monitor effects of recent head banging this week. CAT negative. Mental Status Exam Mental Status Exam Patient Appearance: Fatigued and Appropriate Patient Orientation: Person, Place, Time and Situation Level of Consciousness: Alert Patient Behavior: Appropriate, Talkative, Cooperative, Distractible and Good Eye Contact Mood Description: Withdrawn, Depressed, Anxious and Apprehensive Affect Description: Flat Patient Cognition Impaired: No Ability to Follow Directions: Good Speech Pattern: Spontaneous Speech Memory Description: Episodic Impaired Hallucinations: None Delusions: Not Present Perceptual Disturbances: Depersonalization and Derealization Thought Process: Rumination Thought Content: positive for Perseveration and positive for Suicidal Ideation Depressive Symptoms: Increased Anxiety, Insomnia, Difficulty Sleeping, Loss of Int. in Activity, Hopelessness, Unhappiness, Increased Fatigue and Thoughts of /Suicide Judgement: Fair Diagnostics Vital Signs (24Hr): Vital Signs - 24 hr 02/09/24 19:56 02/10/24 08:00 02/10/24 12:09 Temperature 98.4 F 98.1 F Pulse Rate 75 68 97 Respiratory Rate 18 16 Blood Pressure 112/65 138/69 134/74 Pulse Oximetry 93 97 Oxygen Delivery Method Room Air Room Air BMI result Body Mass Index 46.1 Labs 01/29/24 22:50 01/29/24 22:50 Imaging Radiology Impressions: ITS Impressions Head CT 02/08/24 14:56 IMPRESSION: No acute intracranial pathology. Electronically signed by: Anatoliy Sims MD 02/09/2024 11:01 AM [facility] Medications Medications Current Medications Acetaminophen (Acetaminophen 325 Mg Tablet) 650 mg PO Q6H PRN PRN Reason: Headache/Pain Mild Scale (1-3) Last Admin: 02/10/24 09:01 Dose: 650 mg Al Hydroxide/Mg Hydroxide (Magnesium Hydrox/Alum Hydrox 30 Ml Oral.Susp) 30 ml PO Q6H PRN PRN Reason: Heartburn/Nausea Amphetamine/Dextroamphetamine (Dextroamphetamine/Amphetamine Xr 10 Mg Cap.Er.24h) 30 mg PO DAILY [facility] Last Admin: 02/10/24 09:02 Dose: 30 mg Bisacodyl (Bisacodyl 5 Mg Tablet.Dr) 5 mg PO DAILY PRN PRN Reason: Constipation Bisacodyl (Bisacodyl 10 Mg Supp.Rect) 10 mg [place] DAILY PRN PRN Reason: Constipation Chlorpromazine HCl (Chlorpromazine Hcl 25 Mg Tablet) 50 mg PO QID PRN PRN Reason: Severe Anxiety Last Admin: 02/09/24 10:10 Dose: 50 mg Clonazepam (Clonazepam 1 Mg Tablet) 1 mg PO TID [facility] Last Admin: 02/10/24 14:25 Dose: 1 mg Cyanocobalamin (Cyanocobalamin (Vitamin B-12) 1,000 Mcg Tablet) 1,000 mcg PO DAILY [facility] Last Admin: 02/10/24 09:01 Dose: 1,000 mcg Folic Acid (Folic Acid 1 Mg Tablet) 1 mg PO DAILY [facility] Last Admin: 02/10/24 09:02 Dose: 1 mg Hydroxyzine HCl (Hydroxyzine Hcl 50 Mg Tablet) 50 mg PO QID PRN PRN Reason: Anxiety Last Admin: 02/09/24 10:10 Dose: 50 mg Hydroxyzine HCl (Hydroxyzine Hcl 25 Mg Tablet) 25 mg PO Q6H PRN PRN Reason: Anxiety Lamotrigine (Lamotrigine 25 Mg Tablet) 25 mg PO BEDTIME [facility] Last Admin: 02/09/24 21:28 Dose: 25 mg [place] Carbonate ([place] Carbonate 300 Mg Capsule) 600 mg PO BID [facility] Last Admin: 02/10/24 09:02 Dose: 600 mg Magnesium Hydroxide (Milk Of Magnesia 30 Ml Oral.Susp) 30 ml PO DAILY PRN PRN Reason: Constipation Multivitamins/Vitamin C (Multivitamin Tablet) 1 tab PO DAILY [facility] Last Admin: 02/10/24 09:01 Dose: 1 tab Nicotine Polacrilex (Nicotine Polacrilex 2 Mg Gum) 4 mg BUCCAL Q2H PRN PRN Reason: Nicotine Cravings Olanzapine (Olanzapine Odt 10 Mg Tab.Rapdis) 10 mg TRANSLINGU BID [facility] Perphenazine (Perphenazine 2 Mg Tablet) 6 mg PO TID PRN PRN Reason: grounding support Last Admin: 02/10/24 12:08 Dose: 6 mg Prazosin HCl (Prazosin Hcl 5 Mg Capsule) 10 mg PO BEDTIME [facility]; Protocol Last Admin: 02/09/24 21:29 Dose: 10 mg Propranolol HCl (Propranolol Hcl 10 Mg Tablet) 10 mg PO TID PRN; Protocol PRN Reason: Anxiety Last Admin: 02/10/24 12:09 Dose: 10 mg Trazodone HCl (Trazodone Hcl 100 Mg Tablet) 300 mg PO BEDTIME [facility] Last Admin: 02/09/24 21:29 Dose: 300 mg Venlafaxine HCl (Venlafaxine Hcl Er 75 Mg Cap.Er.24h) 75 mg PO DAILY [facility] Last Admin: 02/10/24 09:02 Dose: 75 mg Vitamin D (Cholecalciferol (Vitamin D3) 25 Mcg Tablet) 50 mcg PO DAILY [facility] Last Admin: 02/10/24 09:02 Dose: 50 mcg Allergies Allergies Allergy/AdvReac Type Severity Reaction Status Date / Time Sulfa (Sulfonamide Allergy Unknown Hives Verified 01/29/24 22:21 Antibiotics) [SULFA (SULFONAMIDE ANTIBIOTICS)] sulfamethoxazole Allergy Unknown Hives Verified 01/29/24 22:21 [From BACTRIM] trimethoprim [From BACTRIM] Allergy Unknown Hives Verified 01/29/24 22:21 lurasidone [From Latuda] AdvReac Intermediate anger, rage Verified 01/29/24 22:21 oseltamivir [From Tamiflu] AdvReac Sensation Verified 01/29/24 22:21 of bugs crawling on skin. lavender Allergy Severe Hives Uncoded 10/04/22 09:42 Assessment & Plan Assessment & Plan (1) Dissociative disorder: Status: Acute Code(s): F44.9 - Dissociative and conversion disorder, unspecified (2) PTSD (post-traumatic stress disorder): Status: Acute Code(s): F43.10 - Post-traumatic stress disorder, unspecified (3) MDD (major depressive disorder), recurrent severe, without psychosis: Status: Acute Code(s): F33.2 - Major depressive disorder, recurrent severe without psychotic features (4) Alcohol abuse: Status: Acute Code(s): F10.10 - Alcohol abuse, uncomplicated Plan PTSD, MDD, DID, Alcohol Abuse. Plan: Admit Pt signed a 3 day notice as she does not agree with teams behavioral plan. Collateral contacts No med changes currently. Pt does take Pristiq- will attempt to replace. Diagnostics as needed Assist pt is identification of resources for further programming. 02/02: Pt will have her yepez knitted doll placed in her belongings. She will keep her remaining items. 02/03 Patient reports that she is having strong intrusive thoughts right now and asks for Thorazine to be increased to which sports book writer agreed. She said she was trying not to use Thorazine because her outpatient provider said antipsychotics are not the answer however sports book writer discussed the role of PRNs and patient felt comfortable proceeding -increase Thorazine p.r.n. to 75 mg q.i.d. p.r.n. 02/04 Patient continues to report having intrusive thoughts; remains mostly isolated in her room. Says that increase Thorazine did not help and asks if it can go back down to 15 mg and instead increase Trilafon to which sports book writer agreed. Patient has kept herself from self-injury, telling the nurse she does not want to lose her stuff - lower Thorazine back to 50 mg q.i.d. p.r.n -increase fluphenazine p.r.n. to 6 mg 02/08 Continue regime. 02/09 DC Chlorpromazine Olanzapine 10 mg po bid Reason for continued inpatient stay Substantial Risk for: rapid decompensation Time Spent With Patient Time: Total time managing care of this patient today ____ minutes.
[2024-02-10 20:00] VITALS: BP 111/62; PULSE 77; RESP 15; TEMP 36.8; O2SAT 96
[2024-02-10] MEDS: Prazosin HCL 5 MG CAPSULE 10 MG PO (20:01)
[2024-02-10] MEDS: lamoTRIgine 25 MG TABLET PO (20:03)
[2024-02-10] MEDS: traZODone HCL 100 MG TABLET 300 MG PO (20:03)
[2024-02-11] MEDS: Dextroamphetamine/Amphetamine XR 10 MG CAP.ER.24H 30 MG PO (08:30)
[2024-02-11] MEDS: clonazePAM 1 MG TABLET PO ×3 (08:30→20:12)
[2024-02-11] MEDS: Folic Acid 1 MG TABLET PO (08:30)
[2024-02-11] MEDS: OLANZapine ODT 10 MG TAB.RAPDIS TRANSLINGU ×2 (08:30→20:12)
[2024-02-11] MEDS: Cyanocobalamin (Vitamin B-12) 1,000 MCG TABLET 1000 MCG PO (08:30)
[2024-02-11] MEDS: Cholecalciferol (Vitamin D3) 25 MCG TABLET 50 MCG PO (08:30)
[2024-02-11] MEDS: Multivitamin TABLET 1 TAB PO (08:30)
[2024-02-11] MEDS: Lithium Carbonate 300 MG CAPSULE 600 MG PO ×2 (08:30→20:12)
[2024-02-11] MEDS: Venlafaxine HCl ER 75 MG CAP.ER.24H PO (08:30)
[2024-02-11 08:36] VITALS: BP 141/87; PULSE 73; RESP 18; TEMP 36.4; O2SAT 97
--- NOTE | 2024-02-11 11:26 | HO.PSYCHPN ---
Subjective Subjective Date of Service: 02/11/24 Reason For Visit: PTSD; MDD, DID, alcohol abuse Interim History: Patient feels Olanzapine has been helpful for their mood. Denies side effects. TDD 20 mg. Patient wondering about increase. Discussed dosing parameters. Denies active SI but reports ongoing depression and anxiety. Hopeful Zyprexa continues to be helpful. Review of Systems Review of Systems area on L cheek-?pimple, ?cellulitis beginning, will monitor effects of recent head banging this week. CAT negative. Yes all other systems are reviewed and are negative Mental Status Exam Mental Status Exam Patient Appearance: Fatigued and Appropriate Patient Orientation: Person, Place, Time and Situation Level of Consciousness: Alert Patient Behavior: Appropriate, Talkative, Cooperative, Distractible and Good Eye Contact Mood Description: Withdrawn, Depressed, Anxious and Apprehensive Affect Description: Flat Patient Cognition Impaired: No Ability to Follow Directions: Good Speech Pattern: Spontaneous Speech Memory Description: Episodic Impaired Diagnostics Vital Signs (24Hr): Vital Signs - 24 hr 02/10/24 12:09 02/10/24 20:00 02/11/24 08:36 Temperature 98.2 F 97.6 F Pulse Rate 97 77 73 Respiratory Rate 15 18 Blood Pressure 134/74 111/62 141/87 H Pulse Oximetry 96 97 Oxygen Delivery Method Room Air BMI result Body Mass Index 46.1 Labs 01/29/24 22:50 01/29/24 22:50 Imaging Radiology Impressions: [facility] Impressions Head CT 02/08/24 14:56 IMPRESSION: No acute intracranial pathology. Electronically signed by: Anatoliy Sims MD 02/09/2024 11:01 AM [facility] Medications Medications Current Medications Acetaminophen (Acetaminophen 325 Mg Tablet) 650 mg PO Q6H PRN PRN Reason: Headache/Pain Mild Scale (1-3) Last Admin: 02/10/24 09:01 Dose: 650 mg Al Hydroxide/Mg Hydroxide (Magnesium Hydrox/Alum Hydrox 30 Ml Oral.Susp) 30 ml PO Q6H PRN PRN Reason: Heartburn/Nausea Amphetamine/Dextroamphetamine (Dextroamphetamine/Amphetamine Xr 10 Mg Cap.Er.24h) 30 mg PO DAILY [facility] Last Admin: 02/11/24 08:30 Dose: 30 mg Bisacodyl (Bisacodyl 5 Mg Tablet.Dr) 5 mg PO DAILY PRN PRN Reason: Constipation Bisacodyl (Bisacodyl 10 Mg Supp.Rect) [address] DAILY PRN PRN Reason: Constipation Chlorpromazine HCl (Chlorpromazine Hcl 25 Mg Tablet) 50 mg PO QID PRN PRN Reason: Severe Anxiety Last Admin: 02/09/24 10:10 Dose: 50 mg Clonazepam (Clonazepam 1 Mg Tablet) 1 mg PO TID [facility] Last Admin: 02/11/24 08:30 Dose: 1 mg Cyanocobalamin (Cyanocobalamin (Vitamin B-12) 1,000 Mcg Tablet) 1,000 mcg PO DAILY [facility] Last Admin: 02/11/24 08:30 Dose: 1,000 mcg Folic Acid (Folic Acid 1 Mg Tablet) 1 mg PO DAILY [facility] Last Admin: 02/11/24 08:30 Dose: 1 mg Hydroxyzine HCl (Hydroxyzine Hcl 50 Mg Tablet) 50 mg PO QID PRN PRN Reason: Anxiety Last Admin: 02/09/24 10:10 Dose: 50 mg Hydroxyzine HCl (Hydroxyzine Hcl 25 Mg Tablet) 25 mg PO Q6H PRN PRN Reason: Anxiety Lamotrigine (Lamotrigine 25 Mg Tablet) 25 mg PO BEDTIME [facility] Last Admin: 02/10/24 20:03 Dose: 25 mg [place] Carbonate ([place] Carbonate 300 Mg Capsule) 600 mg PO BID [facility] Last Admin: 02/11/24 08:30 Dose: 600 mg Magnesium Hydroxide (Milk Of Magnesia 30 Ml Oral.Susp) 30 ml PO DAILY PRN PRN Reason: Constipation Multivitamins/Vitamin C (Multivitamin Tablet) 1 tab PO DAILY [facility] Last Admin: 02/11/24 08:30 Dose: 1 tab Nicotine Polacrilex (Nicotine Polacrilex 2 Mg Gum) 4 mg BUCCAL Q2H PRN PRN Reason: Nicotine Cravings Olanzapine (Olanzapine Odt 10 Mg Tab.Rapdis) 10 mg TRANSLINGU BID [facility] Last Admin: 02/11/24 08:30 Dose: 10 mg Perphenazine (Perphenazine 2 Mg Tablet) 6 mg PO TID PRN PRN Reason: grounding support Last Admin: 02/10/24 12:08 Dose: 6 mg Prazosin HCl (Prazosin Hcl 5 Mg Capsule) 10 mg PO BEDTIME [facility]; Protocol Last Admin: 02/10/24 20:01 Dose: 10 mg Propranolol HCl (Propranolol Hcl 10 Mg Tablet) 10 mg PO TID PRN; Protocol PRN Reason: Anxiety Last Admin: 02/10/24 12:09 Dose: 10 mg Trazodone HCl (Trazodone Hcl 100 Mg Tablet) 300 mg PO BEDTIME [facility] Last Admin: 02/10/24 20:03 Dose: 300 mg Venlafaxine HCl (Venlafaxine Hcl Er 75 Mg Cap.Er.24h) 75 mg PO DAILY [facility] Last Admin: 02/11/24 08:30 Dose: 75 mg Vitamin D (Cholecalciferol (Vitamin D3) 25 Mcg Tablet) 50 mcg PO DAILY [facility] Last Admin: 02/11/24 08:30 Dose: 50 mcg Allergies Allergies Allergy/AdvReac Type Severity Reaction Status Date / Time Sulfa (Sulfonamide Allergy Unknown Hives Verified 01/29/24 22:21 Antibiotics) [SULFA (SULFONAMIDE ANTIBIOTICS)] sulfamethoxazole Allergy Unknown Hives Verified 01/29/24 22:21 [From BACTRIM] trimethoprim [From BACTRIM] Allergy Unknown Hives Verified 01/29/24 22:21 lurasidone [From Latuda] AdvReac Intermediate anger, rage Verified 01/29/24 22:21 oseltamivir [From Tamiflu] AdvReac Sensation Verified 01/29/24 22:21 of bugs crawling on skin. lavender Allergy Severe Hives Uncoded 10/04/22 09:42 Assessment & Plan Assessment & Plan (1) Dissociative disorder: Status: Acute Code(s): F44.9 - Dissociative and conversion disorder, unspecified (2) PTSD (post-traumatic stress disorder): Status: Acute Code(s): F43.10 - Post-traumatic stress disorder, unspecified (3) MDD (major depressive disorder), recurrent severe, without psychosis: Status: Acute Code(s): F33.2 - Major depressive disorder, recurrent severe without psychotic features (4) Alcohol abuse: Status: Acute Code(s): F10.10 - Alcohol abuse, uncomplicated Plan PTSD, MDD, DID, Alcohol Abuse. Plan: Admit Pt signed a 3 day notice as she does not agree with teams behavioral plan. Collateral contacts No med changes currently. Pt does take Pristiq- will attempt to replace. Diagnostics as needed Assist pt is identification of resources for further programming. 02/02: Pt will have her yepez knitted doll placed in her belongings. She will keep her remaining items. 02/03 Patient reports that she is having strong intrusive thoughts right now and asks for Thorazine to be increased to which leader writer agreed. She said she was trying not to use Thorazine because her outpatient provider said antipsychotics are not the answer however leader writer discussed the role of PRNs and patient felt comfortable proceeding -increase Thorazine p.r.n. to 75 mg q.i.d. p.r.n. 02/04 Patient continues to report having intrusive thoughts; remains mostly isolated in her room. Says that increase Thorazine did not help and asks if it can go back down to 15 mg and instead increase Trilafon to which leader writer agreed. Patient has kept herself from self-injury, telling the nurse she does not want to lose her stuff - lower Thorazine back to 50 mg q.i.d. p.r.n -increase fluphenazine p.r.n. to 6 mg 02/08 Continue regime. 02/09 DC Chlorpromazine Olanzapine 10 mg po bid 02/10: Continue current management and treatment plan. Reason for continued inpatient stay Substantial Risk for: harm to self, inability to function and rapid decompensation Time Spent With Patient Time: Total time managing care of this patient today ____ minutes.
[2024-02-11] MEDS: chlorproMAZINE HCl 25 MG TABLET 50 MG PO (17:39)
[2024-02-11 20:00] VITALS: BP 126/87; PULSE 95; RESP 15; TEMP 37.1; O2SAT 97
[2024-02-11] MEDS: Prazosin HCL 5 MG CAPSULE 10 MG PO (20:11)
[2024-02-11] MEDS: traZODone HCL 100 MG TABLET 300 MG PO (20:12)
[2024-02-11] MEDS: lamoTRIgine 25 MG TABLET PO (20:12)
[2024-02-12] MEDS: chlorproMAZINE HCl 25 MG TABLET 50 MG PO (04:09)
[2024-02-12] MEDS: hydrOXYzine HCL 50 MG TABLET PO (06:12)
[2024-02-12] MEDS: Cholecalciferol (Vitamin D3) 25 MCG TABLET 50 MCG PO (08:19)
[2024-02-12] MEDS: Multivitamin TABLET 1 TAB PO (08:19)
[2024-02-12] MEDS: clonazePAM 1 MG TABLET PO ×3 (08:19→21:32)
[2024-02-12] MEDS: Dextroamphetamine/Amphetamine XR 10 MG CAP.ER.24H 30 MG PO (08:19)
[2024-02-12] MEDS: OLANZapine ODT 10 MG TAB.RAPDIS TRANSLINGU ×2 (08:20→21:32)
[2024-02-12] MEDS: Venlafaxine HCl ER 75 MG CAP.ER.24H PO (08:20)
[2024-02-12] MEDS: Lithium Carbonate 300 MG CAPSULE 600 MG PO ×2 (08:20→21:31)
[2024-02-12] MEDS: Folic Acid 1 MG TABLET PO (08:20)
[2024-02-12] MEDS: Cyanocobalamin (Vitamin B-12) 1,000 MCG TABLET 1000 MCG PO (08:20)
[2024-02-12 08:34] VITALS: BP 107/59; PULSE 79; RESP 18; TEMP 36.7; O2SAT 96
--- NOTE | 2024-02-12 11:08 | HO.PSYCHPN ---
Subjective Subjective Date of Service: 02/12/24 Reason For Visit: PTSD; MDD, DID, alcohol abuse Interim History: Patient had nightmare which woke her up. She continues to report Zyprexa helps. Wondering about increase. Discussed adding Zyprexa PRN instead of Thorazine. Patient agreeable. Had a visit with her mother. Visit was good but difficult she told the staff because mom talked about the election. Denies active SI but reports ongoing depression and anxiety. No self harm behaviors. Review of Systems Review of Systems area on L cheek-?pimple, ?cellulitis beginning, will monitor effects of recent head banging this week. CAT negative. Yes all other systems are reviewed and are negative Mental Status Exam Mental Status Exam Patient Appearance: Fatigued and Appropriate Patient Orientation: Person, Place, Time and Situation Level of Consciousness: Alert Patient Behavior: Appropriate, Talkative, Cooperative, Distractible and Good Eye Contact Mood Description: Withdrawn, Depressed, Anxious and Apprehensive Affect Description: Flat Patient Cognition Impaired: No Ability to Follow Directions: Good Speech Pattern: Spontaneous Speech Memory Description: Episodic Impaired Diagnostics Vital Signs (24Hr): Vital Signs - 24 hr 02/11/24 20:00 02/12/24 08:34 Temperature 98.8 F 98.1 F Pulse Rate 95 79 Respiratory Rate 15 18 Blood Pressure 126/87 107/59 L Pulse Oximetry 97 96 Oxygen Delivery Method Room Air BMI result Body Mass Index 46.1 Labs 01/29/24 22:50 01/29/24 22:50 Imaging Radiology Impressions: ITS Impressions Head CT 02/08/24 14:56 IMPRESSION: No acute intracranial pathology. Electronically signed by: Anatoliy Sims MD 02/09/2024 11:01 AM [facility] Medications Medications Current Medications Acetaminophen (Acetaminophen 325 Mg Tablet) 650 mg PO Q6H PRN PRN Reason: Headache/Pain Mild Scale (1-3) Last Admin: 02/10/24 09:01 Dose: 650 mg Al Hydroxide/Mg Hydroxide (Magnesium Hydrox/Alum Hydrox 30 Ml Oral.Susp) 30 ml PO Q6H PRN PRN Reason: Heartburn/Nausea Amphetamine/Dextroamphetamine (Dextroamphetamine/Amphetamine Xr 10 Mg Cap.Er.24h) 30 mg PO DAILY [facility] Last Admin: 02/12/24 08:19 Dose: 30 mg Bisacodyl (Bisacodyl 5 Mg Tablet.Dr) 5 mg PO DAILY PRN PRN Reason: Constipation Bisacodyl (Bisacodyl 10 Mg Supp.Rect) 10 mg [place] DAILY PRN PRN Reason: Constipation Chlorpromazine HCl (Chlorpromazine Hcl 25 Mg Tablet) 50 mg PO QID PRN PRN Reason: Severe Anxiety Last Admin: 02/12/24 04:09 Dose: 50 mg Clonazepam (Clonazepam 1 Mg Tablet) 1 mg PO TID [facility] Last Admin: 02/12/24 08:19 Dose: 1 mg Cyanocobalamin (Cyanocobalamin (Vitamin B-12) 1,000 Mcg Tablet) 1,000 mcg PO DAILY [facility] Last Admin: 02/12/24 08:20 Dose: 1,000 mcg Folic Acid (Folic Acid 1 Mg Tablet) 1 mg PO DAILY [facility] Last Admin: 02/12/24 08:20 Dose: 1 mg Hydroxyzine HCl (Hydroxyzine Hcl 50 Mg Tablet) 50 mg PO QID PRN PRN Reason: Anxiety Last Admin: 02/12/24 06:12 Dose: 50 mg Hydroxyzine HCl (Hydroxyzine Hcl 25 Mg Tablet) 25 mg PO Q6H PRN PRN Reason: Anxiety Lamotrigine (Lamotrigine 25 Mg Tablet) 25 mg PO BEDTIME [facility] Last Admin: 02/11/24 20:12 Dose: 25 mg [place] Carbonate ([place] Carbonate 300 Mg Capsule) 600 mg PO BID [facility] Last Admin: 02/12/24 08:20 Dose: 600 mg Magnesium Hydroxide (Milk Of Magnesia 30 Ml Oral.Susp) 30 ml PO DAILY PRN PRN Reason: Constipation Multivitamins/Vitamin C (Multivitamin Tablet) 1 tab PO DAILY [facility] Last Admin: 02/12/24 08:19 Dose: 1 tab Nicotine Polacrilex (Nicotine Polacrilex 2 Mg Gum) 4 mg BUCCAL Q2H PRN PRN Reason: Nicotine Cravings Olanzapine (Olanzapine Odt 10 Mg Tab.Rapdis) 10 mg TRANSLINGU BID [facility] Last Admin: 02/12/24 08:20 Dose: 10 mg Olanzapine (Olanzapine 7.5 Mg Tablet) 7.5 mg PO BID PRN PRN Reason: Agitation Perphenazine (Perphenazine 2 Mg Tablet) 6 mg PO TID PRN PRN Reason: grounding support Last Admin: 02/10/24 12:08 Dose: 6 mg Prazosin HCl (Prazosin Hcl 5 Mg Capsule) 10 mg PO BEDTIME [facility]; Protocol Last Admin: 02/11/24 20:11 Dose: 10 mg Propranolol HCl (Propranolol Hcl 10 Mg Tablet) 10 mg PO TID PRN; Protocol PRN Reason: Anxiety Last Admin: 02/10/24 12:09 Dose: 10 mg Trazodone HCl (Trazodone Hcl 100 Mg Tablet) 300 mg PO BEDTIME [facility] Last Admin: 02/11/24 20:12 Dose: 300 mg Venlafaxine HCl (Venlafaxine Hcl Er 75 Mg Cap.Er.24h) 75 mg PO DAILY [facility] Last Admin: 02/12/24 08:20 Dose: 75 mg Vitamin D (Cholecalciferol (Vitamin D3) 25 Mcg Tablet) 50 mcg PO DAILY [facility] Last Admin: 02/12/24 08:19 Dose: 50 mcg Allergies Allergies Allergy/AdvReac Type Severity Reaction Status Date / Time Sulfa (Sulfonamide Allergy Unknown Hives Verified 01/29/24 22:21 Antibiotics) [SULFA (SULFONAMIDE ANTIBIOTICS)] sulfamethoxazole Allergy Unknown Hives Verified 01/29/24 22:21 [From BACTRIM] trimethoprim [From BACTRIM] Allergy Unknown Hives Verified 01/29/24 22:21 lurasidone [From Latuda] AdvReac Intermediate anger, rage Verified 01/29/24 22:21 oseltamivir [From Tamiflu] AdvReac Sensation Verified 01/29/24 22:21 of bugs crawling on skin. lavender Allergy Severe Hives Uncoded 10/04/22 09:42 Assessment & Plan Assessment & Plan (1) Dissociative disorder: Status: Acute Code(s): F44.9 - Dissociative and conversion disorder, unspecified (2) PTSD (post-traumatic stress disorder): Status: Acute Code(s): F43.10 - Post-traumatic stress disorder, unspecified (3) MDD (major depressive disorder), recurrent severe, without psychosis: Status: Acute Code(s): F33.2 - Major depressive disorder, recurrent severe without psychotic features (4) Alcohol abuse: Status: Acute Code(s): F10.10 - Alcohol abuse, uncomplicated Plan PTSD, MDD, DID, Alcohol Abuse. Plan: Admit Pt signed a 3 day notice as she does not agree with teams behavioral plan. Collateral contacts No med changes currently. Pt does take Pristiq- will attempt to replace. Diagnostics as needed Assist pt is identification of resources for further programming. 02/02: Pt will have her yepez knitted doll placed in her belongings. She will keep her remaining items. 02/03 Patient reports that she is having strong intrusive thoughts right now and asks for Thorazine to be increased to which check writer salesperson agreed. She said she was trying not to use Thorazine because her outpatient provider said antipsychotics are not the answer however check writer salesperson discussed the role of PRNs and patient felt comfortable proceeding -increase Thorazine p.r.n. to 75 mg q.i.d. p.r.n. 02/04 Patient continues to report having intrusive thoughts; remains mostly isolated in her room. Says that increase Thorazine did not help and asks if it can go back down to 15 mg and instead increase Trilafon to which check writer salesperson agreed. Patient has kept herself from self-injury, telling the nurse she does not want to lose her stuff - lower Thorazine back to 50 mg q.i.d. p.r.n -increase fluphenazine p.r.n. to 6 mg 02/08 Continue regime. 02/09 DC Chlorpromazine Olanzapine 10 mg po bid 02/10: Continue current management and treatment plan. 02/11: Added Olanzapine 5 mg BID PRN. Reason for continued inpatient stay Substantial Risk for: harm to self, inability to function and rapid decompensation Time Spent With Patient Time: Total time managing care of this patient today ____ minutes.
[2024-02-12] MEDS: OLANZapine 7.5 MG TABLET PO (13:34)
[2024-02-12 20:00] VITALS: BP 128/77; PULSE 104; RESP 15; TEMP 36.8; O2SAT 96
[2024-02-12 21:31] VITALS: BP 128/77
[2024-02-12] MEDS: traZODone HCL 100 MG TABLET 300 MG PO (21:31)
[2024-02-12] MEDS: Prazosin HCL 5 MG CAPSULE 10 MG PO (21:31)
[2024-02-12] MEDS: lamoTRIgine 25 MG TABLET PO (21:32)
[2024-02-13 08:00] VITALS: BP 121/66; PULSE 95; TEMP 36.8; O2SAT 98
[2024-02-13] MEDS: clonazePAM 1 MG TABLET PO ×3 (08:46→21:05)
[2024-02-13] MEDS: Cyanocobalamin (Vitamin B-12) 1,000 MCG TABLET 1000 MCG PO (08:46)
[2024-02-13] MEDS: Dextroamphetamine/Amphetamine XR 10 MG CAP.ER.24H 30 MG PO (08:46)
[2024-02-13] MEDS: Lithium Carbonate 300 MG CAPSULE 600 MG PO ×2 (08:46→21:05)
[2024-02-13] MEDS: Cholecalciferol (Vitamin D3) 25 MCG TABLET 50 MCG PO (08:46)
[2024-02-13] MEDS: Venlafaxine HCl ER 75 MG CAP.ER.24H PO (08:46)
[2024-02-13] MEDS: Folic Acid 1 MG TABLET PO (08:46)
[2024-02-13] MEDS: OLANZapine ODT 10 MG TAB.RAPDIS TRANSLINGU ×2 (08:47→21:05)
[2024-02-13] MEDS: Multivitamin TABLET 1 TAB PO (08:47)
[2024-02-13] MEDS: OLANZapine 7.5 MG TABLET PO (10:45)
--- NOTE | 2024-02-13 16:48 | P.PNPSI_ITS ---
Subjective Subjective Date of Service: 02/13/24 Reason For Visit: PTSD; MDD, DID, alcohol abuse Subjective Notes: Conditional Voluntary Healthcare Proxy: No Guardianship: No Medical Problems Affecting Mental Status: No Interim History: Reports some improvement with Olanzapine with decrease in physical activation sx, increased ability to relax, however with some psychological activation. States they continue to hear thoughts which are not theirs which is new Discussed discharge planning for early next week Some nightmares, possible trigger was a discussion with their mom regarding the outcome of the election. Discussed ?Lamictal causing nightmares, however, reports nightmares since they left a nicotine patch on several months ago. Also discussed re-start of Melatonin. Medication Compliance: Yes Side effects from medications: No Attending Groups: Intermittent Review of Systems Acute medical concerns: No Medical Review of Systems: unchanged Review of Systems Review of Systems Yes all other systems are reviewed and are negative Mental Status Exam Mental Status Exam Patient Appearance: Fatigued and Appropriate Patient Orientation: Person, Place, Time and Situation Level of Consciousness: Alert Patient Behavior: Appropriate, Talkative, Cooperative, Distractible and Good Eye Contact Mood Description: Withdrawn, Depressed, Anxious and Apprehensive Affect Description: Flat Patient Cognition Impaired: No Ability to Follow Directions: Good Speech Pattern: Spontaneous Speech Memory Description: Episodic Impaired Diagnostics Vital Signs (24Hr): Vital Signs - 24 hr 02/12/24 20:00 02/12/24 21:31 02/13/24 08:00 Temperature 98.2 F 98.3 F Pulse Rate 104 H 95 Respiratory Rate 15 Blood Pressure 128/77 128/77 121/66 Pulse Oximetry 96 98 Oxygen Delivery Method Room Air BMI result Body Mass Index 46.1 Labs 01/29/24 22:50 01/29/24 22:50 Imaging Radiology Impressions: ITS Impressions Head CT 02/08/24 14:56 IMPRESSION: No acute intracranial pathology. Electronically signed by: Anatoliy Sims MD 02/09/2024 11:01 AM [facility] Medications Medications Current Medications Acetaminophen (Acetaminophen 325 Mg Tablet) 650 mg PO Q6H PRN PRN Reason: Headache/Pain Mild Scale (1-3) Last Admin: 02/10/24 09:01 Dose: 650 mg Al Hydroxide/Mg Hydroxide (Magnesium Hydrox/Alum Hydrox 30 Ml Oral.Susp) 30 ml PO Q6H PRN PRN Reason: Heartburn/Nausea Amphetamine/Dextroamphetamine (Dextroamphetamine/Amphetamine Xr 10 Mg Cap.Er.24h) 30 mg PO DAILY [facility] Last Admin: 02/13/24 08:46 Dose: 30 mg Bisacodyl (Bisacodyl 5 Mg Tablet.Dr) 5 mg PO DAILY PRN PRN Reason: Constipation Bisacodyl (Bisacodyl 10 Mg Supp.Rect) 10 mg [place] DAILY PRN PRN Reason: Constipation Chlorpromazine HCl (Chlorpromazine Hcl 25 Mg Tablet) 50 mg PO QID PRN PRN Reason: Severe Anxiety Last Admin: 02/12/24 04:09 Dose: 50 mg Clonazepam (Clonazepam 1 Mg Tablet) 1 mg PO TID [facility] Last Admin: 02/13/24 13:40 Dose: 1 mg Cyanocobalamin (Cyanocobalamin (Vitamin B-12) 1,000 Mcg Tablet) 1,000 mcg PO DAILY [facility] Last Admin: 02/13/24 08:46 Dose: 1,000 mcg Folic Acid (Folic Acid 1 Mg Tablet) 1 mg PO DAILY [facility] Last Admin: 02/13/24 08:46 Dose: 1 mg Hydroxyzine HCl (Hydroxyzine Hcl 50 Mg Tablet) 50 mg PO QID PRN PRN Reason: Anxiety Last Admin: 02/12/24 06:12 Dose: 50 mg Hydroxyzine HCl (Hydroxyzine Hcl 25 Mg Tablet) 25 mg PO Q6H PRN PRN Reason: Anxiety [place] Carbonate ([place] Carbonate 300 Mg Capsule) 600 mg PO BID [facility] Last Admin: 02/13/24 08:46 Dose: 600 mg Magnesium Hydroxide (Milk Of Magnesia 30 Ml Oral.Susp) 30 ml PO DAILY PRN PRN Reason: Constipation Melatonin (Melatonin 3 Mg Tablet) 9 mg PO BEDTIME [facility] Multivitamins/Vitamin C (Multivitamin Tablet) 1 tab PO DAILY [facility] Last Admin: 02/13/24 08:47 Dose: 1 tab Nicotine Polacrilex (Nicotine Polacrilex 2 Mg Gum) 4 mg BUCCAL Q2H PRN PRN Reason: Nicotine Cravings Olanzapine (Olanzapine Odt 10 Mg Tab.Rapdis) 10 mg TRANSLINGU BID [facility] Last Admin: 02/13/24 08:47 Dose: 10 mg Olanzapine (Olanzapine 7.5 Mg Tablet) 7.5 mg PO BID PRN PRN Reason: Agitation Last Admin: 02/13/24 10:45 Dose: 7.5 mg Perphenazine (Perphenazine 2 Mg Tablet) 6 mg PO TID PRN PRN Reason: grounding support Last Admin: 02/10/24 12:08 Dose: 6 mg Prazosin HCl (Prazosin Hcl 5 Mg Capsule) 10 mg PO BEDTIME [facility]; Protocol Last Admin: 02/12/24 21:31 Dose: 10 mg Propranolol HCl (Propranolol Hcl 10 Mg Tablet) 10 mg PO TID PRN; Protocol PRN Reason: Anxiety Last Admin: 02/10/24 12:09 Dose: 10 mg Trazodone HCl (Trazodone Hcl 100 Mg Tablet) 300 mg PO BEDTIME [facility] Last Admin: 02/12/24 21:31 Dose: 300 mg Venlafaxine HCl (Venlafaxine Hcl Er 75 Mg Cap.Er.24h) 75 mg PO DAILY [facility] Last Admin: 02/13/24 08:46 Dose: 75 mg Vitamin D (Cholecalciferol (Vitamin D3) 25 Mcg Tablet) 50 mcg PO DAILY [facility] Last Admin: 02/13/24 08:46 Dose: 50 mcg Allergies Allergies Allergy/AdvReac Type Severity Reaction Status Date / Time Sulfa (Sulfonamide Allergy Unknown Hives Verified 01/29/24 22:21 Antibiotics) [SULFA (SULFONAMIDE ANTIBIOTICS)] sulfamethoxazole Allergy Unknown Hives Verified 01/29/24 22:21 [From BACTRIM] trimethoprim [From BACTRIM] Allergy Unknown Hives Verified 01/29/24 22:21 lurasidone [From Latuda] AdvReac Intermediate anger, rage Verified 01/29/24 22:21 oseltamivir [From Tamiflu] AdvReac Sensation Verified 01/29/24 22:21 of bugs crawling on skin. lavender Allergy Severe Hives Uncoded 10/04/22 09:42 Assessment & Plan Assessment & Plan (1) Dissociative disorder: Status: Acute Code(s): F44.9 - Dissociative and conversion disorder, unspecified (2) PTSD (post-traumatic stress disorder): Status: Acute Code(s): F43.10 - Post-traumatic stress disorder, unspecified (3) MDD (major depressive disorder), recurrent severe, without psychosis: Status: Acute Code(s): F33.2 - Major depressive disorder, recurrent severe without psychotic features (4) Alcohol abuse: Status: Acute Code(s): F10.10 - Alcohol abuse, uncomplicated Plan PTSD, MDD, DID, Alcohol Abuse. Plan: Admit Pt signed a 3 day notice as she does not agree with teams behavioral plan. Collateral contacts No med changes currently. Pt does take Pristiq- will attempt to replace. Diagnostics as needed Assist pt is identification of resources for further programming. 02/02: Pt will have her yepez knitted doll placed in her belongings. She will keep her remaining items. 02/03 Patient reports that she is having strong intrusive thoughts right now and asks for Thorazine to be increased to which fiction and nonfiction writer prose agreed. She said she was trying not to use Thorazine because her outpatient provider said antipsychotics are not the answer however fiction and nonfiction writer prose discussed the role of PRNs and patient felt comfortable proceeding -increase Thorazine p.r.n. to 75 mg q.i.d. p.r.n. 02/04 Patient continues to report having intrusive thoughts; remains mostly isolated in her room. Says that increase Thorazine did not help and asks if it can go back down to 15 mg and instead increase Trilafon to which fiction and nonfiction writer prose agreed. Patient has kept herself from self-injury, telling the nurse she does not want to lose her stuff - lower Thorazine back to 50 mg q.i.d. p.r.n -increase fluphenazine p.r.n. to 6 mg 02/08 Continue regime. 02/09 DC Chlorpromazine Olanzapine 10 mg po bid 02/10: Continue current management and treatment plan. 02/11: Added Olanzapine 5 mg BID PRN. 02/12: DC Lamictal Melatonin 9 mg HS Reason for continued inpatient stay Substantial Risk for: rapid decompensation Time Spent With Patient Time: Total time managing care of this patient today ____ minutes.
[2024-02-13 19:50] VITALS: BP 147/67; PULSE 119; RESP 16; TEMP 36.5; O2SAT 97
[2024-02-13] MEDS: Prazosin HCL 5 MG CAPSULE 10 MG PO (21:05)
[2024-02-13] MEDS: traZODone HCL 100 MG TABLET 300 MG PO (21:05)
[2024-02-13] MEDS: Melatonin 3 MG TABLET 9 MG PO (21:05)
[2024-02-13] MEDS: chlorproMAZINE HCl 25 MG TABLET 50 MG PO (21:05)
[2024-02-14] MEDS: OLANZapine 7.5 MG TABLET PO ×2 (02:52→11:17)
[2024-02-14 09:30] VITALS: BP 135/87; PULSE 82; TEMP 37.1; O2SAT 97
[2024-02-14] MEDS: Dextroamphetamine/Amphetamine XR 10 MG CAP.ER.24H 30 MG PO (09:39)
[2024-02-14] MEDS: Lithium Carbonate 300 MG CAPSULE 600 MG PO ×2 (09:40→20:29)
[2024-02-14] MEDS: Cholecalciferol (Vitamin D3) 25 MCG TABLET 50 MCG PO (09:41)
[2024-02-14] MEDS: Multivitamin TABLET 1 TAB PO (09:41)
[2024-02-14] MEDS: Folic Acid 1 MG TABLET PO (09:41)
[2024-02-14] MEDS: Cyanocobalamin (Vitamin B-12) 1,000 MCG TABLET 1000 MCG PO (09:41)
[2024-02-14] MEDS: Venlafaxine HCl ER 75 MG CAP.ER.24H PO (09:41)
[2024-02-14] MEDS: OLANZapine ODT 10 MG TAB.RAPDIS TRANSLINGU ×2 (09:42→20:29)
[2024-02-14] MEDS: clonazePAM 1 MG TABLET PO ×3 (09:42→20:38)
--- NOTE | 2024-02-14 10:45 | HO.PSYCHPN ---
Subjective Subjective Date of Service: 02/14/24 Reason For Visit: PTSD; MDD, DID, alcohol abuse Subjective Notes: Conditional Voluntary Healthcare Proxy: No Guardianship: No Medical Problems Affecting Mental Status: No Interim History: Discussed discharge. Olanzapine effective, clarifying she reports, offers improved control. 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 Discussed with pt that out pt prescriber has not returned call to set a time to discuss med changes. Pt will discuss these with him and he may call tw if he has questions. Medication Compliance: Yes Side effects from medications: No Attending Groups: Intermittent Review of Systems Acute medical concerns: No Medical Review of Systems: unchanged Review of Systems Review of Systems Denied Mental Status Exam Mental Status Exam Patient Appearance: Fatigued and Appropriate Patient Orientation: Person, Place, Time and Situation Level of Consciousness: Alert Patient Behavior: Appropriate, Talkative, Cooperative, Distractible and Good Eye Contact Mood Description: Withdrawn, Depressed, Anxious and Apprehensive Affect Description: Flat Patient Cognition Impaired: No Ability to Follow Directions: Good Speech Pattern: Spontaneous Speech Memory Description: Episodic Impaired Diagnostics Vital Signs (24Hr): Vital Signs - 24 hr 02/13/24 19:50 02/14/24 09:30 Temperature 97.7 F 98.7 F Pulse Rate 119 H 82 Respiratory Rate 16 Blood Pressure 147/67 H 135/87 Pulse Oximetry 97 97 Oxygen Delivery Method Room Air Room Air BMI result Body Mass Index 46.1 Labs 01/29/24 22:50 01/29/24 22:50 Imaging Radiology Impressions: ITS Impressions Head CT 02/08/24 14:56 IMPRESSION: No acute intracranial pathology. Electronically signed by: Anatoliy Sims MD 02/09/2024 11:01 AM [facility] Medications Medications Current Medications Acetaminophen (Acetaminophen 325 Mg Tablet) 650 mg PO Q6H PRN PRN Reason: Headache/Pain Mild Scale (1-3) Last Admin: 02/10/24 09:01 Dose: 650 mg Al Hydroxide/Mg Hydroxide (Magnesium Hydrox/Alum Hydrox 30 Ml Oral.Susp) 30 ml PO Q6H PRN PRN Reason: Heartburn/Nausea Amphetamine/Dextroamphetamine (Dextroamphetamine/Amphetamine Xr 10 Mg Cap.Er.24h) 30 mg PO DAILY [facility] Last Admin: 02/14/24 09:39 Dose: 30 mg Bisacodyl (Bisacodyl 5 Mg Tablet.Dr) 5 mg PO DAILY PRN PRN Reason: Constipation Bisacodyl (Bisacodyl 10 Mg Supp.Rect) 10 mg [place] DAILY PRN PRN Reason: Constipation Chlorpromazine HCl (Chlorpromazine Hcl 25 Mg Tablet) 50 mg PO QID PRN PRN Reason: Severe Anxiety Last Admin: 02/13/24 21:05 Dose: 50 mg Clonazepam (Clonazepam 1 Mg Tablet) 1 mg PO TID [facility] Last Admin: 02/14/24 09:42 Dose: 1 mg Cyanocobalamin (Cyanocobalamin (Vitamin B-12) 1,000 Mcg Tablet) 1,000 mcg PO DAILY [facility] Last Admin: 02/14/24 09:41 Dose: 1,000 mcg Folic Acid (Folic Acid 1 Mg Tablet) 1 mg PO DAILY [facility] Last Admin: 02/14/24 09:41 Dose: 1 mg Hydroxyzine HCl (Hydroxyzine Hcl 50 Mg Tablet) 50 mg PO QID PRN PRN Reason: Anxiety Last Admin: 02/12/24 06:12 Dose: 50 mg Hydroxyzine HCl (Hydroxyzine Hcl 25 Mg Tablet) 25 mg PO Q6H PRN PRN Reason: Anxiety [place] Carbonate ([place] Carbonate 300 Mg Capsule) 600 mg PO BID [facility] Last Admin: 02/14/24 09:40 Dose: 600 mg Magnesium Hydroxide (Milk Of Magnesia 30 Ml Oral.Susp) 30 ml PO DAILY PRN PRN Reason: Constipation Melatonin (Melatonin 3 Mg Tablet) 9 mg PO BEDTIME [facility] Last Admin: 02/13/24 21:05 Dose: 9 mg Multivitamins/Vitamin C (Multivitamin Tablet) 1 tab PO DAILY [facility] Last Admin: 02/14/24 09:41 Dose: 1 tab Nicotine Polacrilex (Nicotine Polacrilex 2 Mg Gum) 4 mg BUCCAL Q2H PRN PRN Reason: Nicotine Cravings Olanzapine (Olanzapine Odt 10 Mg Tab.Rapdis) 10 mg TRANSLINGU BID [facility] Last Admin: 02/14/24 09:42 Dose: 10 mg Olanzapine (Olanzapine 7.5 Mg Tablet) 7.5 mg PO BID PRN PRN Reason: Agitation Last Admin: 02/14/24 02:52 Dose: 7.5 mg Perphenazine (Perphenazine 2 Mg Tablet) 6 mg PO TID PRN PRN Reason: grounding support Last Admin: 02/10/24 12:08 Dose: 6 mg Prazosin HCl (Prazosin Hcl 5 Mg Capsule) 10 mg PO BEDTIME [facility]; Protocol Last Admin: 02/13/24 21:05 Dose: 10 mg Propranolol HCl (Propranolol Hcl 10 Mg Tablet) 10 mg PO TID PRN; Protocol PRN Reason: Anxiety Last Admin: 02/10/24 12:09 Dose: 10 mg Trazodone HCl (Trazodone Hcl 100 Mg Tablet) 300 mg PO BEDTIME [facility] Last Admin: 02/13/24 21:05 Dose: 300 mg Venlafaxine HCl (Venlafaxine Hcl Er 75 Mg Cap.Er.24h) 75 mg PO DAILY [facility] Last Admin: 02/14/24 09:41 Dose: 75 mg Vitamin D (Cholecalciferol (Vitamin D3) 25 Mcg Tablet) 50 mcg PO DAILY [facility] Last Admin: 02/14/24 09:41 Dose: 50 mcg Allergies Allergies Allergy/AdvReac Type Severity Reaction Status Date / Time Sulfa (Sulfonamide Allergy Unknown Hives Verified 01/29/24 22:21 Antibiotics) [SULFA (SULFONAMIDE ANTIBIOTICS)] sulfamethoxazole Allergy Unknown Hives Verified 01/29/24 22:21 [From BACTRIM] trimethoprim [From BACTRIM] Allergy Unknown Hives Verified 01/29/24 22:21 lurasidone [From Latuda] AdvReac Intermediate anger, rage Verified 01/29/24 22:21 oseltamivir [From Tamiflu] AdvReac Sensation Verified 01/29/24 22:21 of bugs crawling on skin. lavender Allergy Severe Hives Uncoded 10/04/22 09:42 Assessment & Plan Assessment & Plan (1) Dissociative disorder: Status: Acute Code(s): F44.9 - Dissociative and conversion disorder, unspecified (2) PTSD (post-traumatic stress disorder): Status: Acute Code(s): F43.10 - Post-traumatic stress disorder, unspecified (3) MDD (major depressive disorder), recurrent severe, without psychosis: Status: Acute Code(s): F33.2 - Major depressive disorder, recurrent severe without psychotic features (4) Alcohol abuse: Status: Acute Code(s): F10.10 - Alcohol abuse, uncomplicated Plan PTSD, MDD, DID, Alcohol Abuse. Plan: Admit Pt signed a 3 day notice as she does not agree with teams behavioral plan. Collateral contacts No med changes currently. Pt does take Pristiq- will attempt to replace. Diagnostics as needed Assist pt is identification of resources for further programming. 02/02: Pt will have her yepez knitted doll placed in her belongings. She will keep her remaining items. 02/03 Patient reports that she is having strong intrusive thoughts right now and asks for Thorazine to be increased to which conventional mortgage underwriter agreed. She said she was trying not to use Thorazine because her outpatient provider said antipsychotics are not the answer however conventional mortgage underwriter discussed the role of PRNs and patient felt comfortable proceeding -increase Thorazine p.r.n. to 75 mg q.i.d. p.r.n. 02/04 Patient continues to report having intrusive thoughts; remains mostly isolated in her room. Says that increase Thorazine did not help and asks if it can go back down to 15 mg and instead increase Trilafon to which conventional mortgage underwriter agreed. Patient has kept herself from self-injury, telling the nurse she does not want to lose her stuff - lower Thorazine back to 50 mg q.i.d. p.r.n -increase fluphenazine p.r.n. to 6 mg 02/08 Continue regime. 02/09 DC Chlorpromazine Olanzapine 10 mg po bid 02/10: Continue current management and treatment plan. 02/11: Added Olanzapine 5 mg BID PRN. 02/13: Discharge planning. Reason for continued inpatient stay Substantial Risk for: stable for discharge Time Spent With Patient Time: Total time managing care of this patient today ____ minutes.
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
[2024-02-14] MEDS: Thiamine HCL 100 MG TABLET PO (12:48)
[2024-02-14 20:00] VITALS: BP 124/65; PULSE 80; TEMP 36.4; O2SAT 98
[2024-02-14] MEDS: traZODone HCL 100 MG TABLET 300 MG PO (20:29)
[2024-02-14] MEDS: Prazosin HCL 5 MG CAPSULE 10 MG PO (20:29)
[2024-02-14] MEDS: Melatonin 3 MG TABLET 9 MG PO (20:29)
[2024-02-15] MEDS: OLANZapine 7.5 MG TABLET PO (05:38)
[2024-02-15] MEDS: Folic Acid 1 MG TABLET PO (08:33)
[2024-02-15] MEDS: Multivitamin TABLET 1 TAB PO (08:33)
[2024-02-15] MEDS: Cyanocobalamin (Vitamin B-12) 1,000 MCG TABLET 1000 MCG PO (08:33)
[2024-02-15] MEDS: Dextroamphetamine/Amphetamine XR 10 MG CAP.ER.24H 30 MG PO (08:34)
[2024-02-15] MEDS: Cholecalciferol (Vitamin D3) 25 MCG TABLET 50 MCG PO (08:34)
[2024-02-15] MEDS: Venlafaxine HCl ER 75 MG CAP.ER.24H PO (08:34)
[2024-02-15] MEDS: Thiamine HCL 100 MG TABLET PO (08:34)
[2024-02-15] MEDS: Lithium Carbonate 300 MG CAPSULE 600 MG PO (08:34)
[2024-02-15] MEDS: clonazePAM 1 MG TABLET PO (08:34)
[2024-02-15] MEDS: OLANZapine ODT 10 MG TAB.RAPDIS TRANSLINGU (08:34)
[2024-02-15 08:55] VITALS: BP 129/65; PULSE 74; RESP 18; TEMP 36.6; O2SAT 97
--- NOTE | 2024-02-15 11:55 | P.DS_ITS ---
DS: Providers Provider Date of Service: 02/15/24 Date of admission: 01/30/24 12:59 Date of discharge: 02/15/24 Primary care physician: Titus Finn NP Admitting clinician: Orin Johnson Attending physician on admission: Dewayne Azar Consults: 02/13/24 16:28 Consult to Hospitalist Routine Comment: head banging- CAT last week neg. ?concussion sx Consulting Provider: Hospitalist Reason For Exam: headache, balance issues, memory issues,foggy/slow Attending physician on discharge: Dewayne Azar Discharging clinician: Orin Johnson DS: Diagnosis Discharge Diagnosis (1) Dissociative disorder: Status: Acute (2) PTSD (post-traumatic stress disorder): Status: Acute (3) MDD (major depressive disorder), recurrent severe, without psychosis: Status: Acute (4) Alcohol abuse: Status: Acute DS: Medications Discharge Medications Home Medications: Home Medications ?Medication ?Instructions ?Recorded ?Confirmed bisacodyl 10 mg rectal suppository 10 mg ND DAILY PRN Constipation 01/30/24 01/30/24 bisacodyl 5 mg tablet 5 mg PO DAILY PRN Constipation 01/30/24 01/30/24 Previous Rx's ?Medication ?Instructions ?Recorded chlorpromazine 50 mg tablet 50 mg PO QID PRN Severe Anxiety #5 02/15/24 tabs cholecalciferol (vitamin D3) 25 50 mcg (2 x 25 mcg (1,000 unit)) 02/15/24 mcg (1,000 unit) tablet PO DAILY #14 tabs clonazepam 1 mg tablet 1 mg PO TID #21 tabs 02/15/24 cyanocobalamin (vitamin B-12) 1,000 mcg PO DAILY #7 tabs 02/15/24 1,000 mcg tablet (Vitamin B-12) desvenlafaxine succinate 50 mg 100 mg (2 x 50 mg) PO DAILY #14 02/15/24 tablet,extended release 24 hr tabs dextroamphetamine-amphetamine ER 30 mg PO QAM #14 caps 02/15/24 30 mg 24hr capsule,extend release (Adderall XR) folic acid 1 mg tablet 1 mg PO DAILY #7 tabs 02/15/24 hydroxyzine HCl 50 mg tablet 50 mg PO QID PRN Anxiety #5 tabs 02/15/24 lithium carbonate 600 mg capsule 600 mg PO BID #14 caps 02/15/24 melatonin 3 mg tablet 9 mg (3 x 3 mg) PO BEDTIME #21 tabs 02/15/24 multivitamin (Daily-Elliott tablet) 1 tab PO DAILY #7 tabs 02/15/24 olanzapine 10 mg disintegrating 10 mg translingual BID #14 tabs 02/15/24 tablet olanzapine 7.5 mg tablet 7.5 mg PO BID PRN Agitation #14 02/15/24 tabs perphenazine 2 mg tablet 6 mg (3 x 2 mg) PO TID PRN 02/15/24 grounding support #5 tabs prazosin 5 mg capsule 10 mg PO BEDTIME #14 caps 02/15/24 propranolol 10 mg tablet 10 mg PO TID PRN Anxiety #5 tabs 02/15/24 thiamine mononitrate (vit B1) 100 100 mg PO DAILY #7 tabs 02/15/24 mg tablet trazodone 300 mg tablet 300 mg PO BEDTIME #7 tabs 02/15/24 Mental Status Exam Mental Status Exam Patient Appearance: Appropriate Patient Orientation: Person, Place, Time and Situation Level of Consciousness: Alert Patient Behavior: Appropriate, Talkative, Cooperative and Good Eye Contact Mood Description: Flat Affect Description: Flat Patient Cognition Impaired: No Ability to Follow Directions: Good Speech Pattern: Spontaneous Speech Memory Description: Episodic Impaired Hallucinations: None Delusions: Not Present Thought Process: Intact and Goal Oriented Thought Content: positive for Intact, positive for Goal Oriented and positive for Suicidal Ideation (denies SI, plan, intent at this time.) Depressive Symptoms: Thoughts of /Suicide (denies SI, plan, intent at this time) Judgement: Good Data Imaging Diagnostic Imaging Impressions Head CT 02/08/24 14:56 IMPRESSION: No acute intracranial pathology. Electronically signed by: Anatoliy Sims MD 02/09/2024 11:01 AM [facility] DS: Summary Hospital Course Hospital Course: Admission to adult psychiatry for exacerbation of PTSD, Recurrent Major Depression, new diagnosis of Dissociative Identity Disorder. Pt reports increase in depressive sx, SI, dissociative states, self-harm since September 2023. They report the OP team is searching for DID programs for them to attend, however, they presented for admission to stabilize prior to pursuit of a longer term program. They report recent [facility] admit and signing out due to disagreement regarding care planning. Medications were evaluated and adjusted. Pt re-started Olanzapine and reported significant relief of symptoms. Prior to this they found perphenazine 6 mg effective for clarity and grounding and chlorpromazine effective for grounding with added calming effect. Olanzapine was most effective per their report. Medically, pt had engaged in head banging prior to and initially upon admission, CAT and medical eval were negative for injury. Klonopin 1 mg bid and 1 mg qd prn were changed to 1 mg tid. Team worked with pt and their insurance on possible DID programs. Pt does have a few options to review with their OP team, and will have an intake with a DID PHP program with [facility]. Pt's medication provider was contacted, however he was unable to communicate with the team due to his scheduling conflict. Pt participated in a behavioral plan for their safety during admission, and did well with the parameters the plan set for safety, although not always in agreement with this. Pt plans to return to their home and their dog, they will return to therapy and medication mgt, and continue the search for DID programming which meets their current needs. Weekly med supply was sent to [facility] until they return to [facility]. They plan to continue with [facility] connections this week and verbalized awareness that they may call and or return as needed. Status at Discharge Functional status at discharge: independent ambulation Overall status at discharge: patient is progressing back to baseline Time Spent with Patient Time attestation: Total time managing care of this patient today ____ minutes. Time spent: Less than 30 minutes Discharge Plan Discharge Anticipated Discharge Date/Time: 02/15/24 13:00 Patient Disposition: Home, Self-Care Discharge Diagnosis: PTSD Recurrent Major Depression, Severe Dissociative Disorder Referrals: Trauma-Focused PHP: [facility] [Other] - 03/05/24 1:15 pm (Referral for virtual PHP made; intake appointment scheduled for 03/05; you should receive an email confirming appointment and with further instruction. ) Psych Prescriber: Nathen Villarreal ([facility]) [Other] - 1 Week (Follow up via their patient portal to schedule follow up appointment for medication management ) Therapist: Iesha Arguello [Other] - 1 Week (Continue twice a week therapy sessions and follow up with Iesha as needed) Titus Finn NP [Primary Care Provider] - 1 Week (please follow up) Discharge Medications: New perphenazine 2 mg Tablet 6 mg PO TID PRN (Reason: grounding support) Qty: 5 0RF clonazepam 1 mg Tablet 1 mg PO TID Qty: 21 1RF olanzapine 7.5 mg Tablet 7.5 mg PO BID PRN (Reason: Agitation) Qty: 14 1RF prazosin 5 mg Capsule 10 mg PO BEDTIME Qty: 14 1RF Protocol: Hold for SBP< HOLD for SBP < : 90 olanzapine 10 mg Tablet,Disintegrating 10 mg translingual BID Qty: 14 1RF multivitamin [Daily-Elliott] Tablet 1 tab PO DAILY Qty: 7 0RF melatonin 3 mg Tablet 9 mg PO BEDTIME Qty: 21 1RF folic acid 1 mg Tablet 1 mg PO DAILY Qty: 7 1RF cholecalciferol (vitamin D3) 25 mcg (1,000 unit) Tablet 50 mcg PO DAILY Qty: 14 1RF thiamine mononitrate (vit B1) 100 mg Tablet 100 mg PO DAILY Qty: 7 0RF lithium carbonate 600 mg capsule 600 mg PO BID Qty: 14 1RF trazodone 150 mg tablet 300 mg PO BEDTIME Qty: 14 1RF Continued bisacodyl 10 mg Suppository 10 mg ND DAILY PRN (Reason: Constipation) bisacodyl 5 mg Tablet 5 mg PO DAILY PRN (Reason: Constipation) hydroxyzine HCl 50 mg tablet 50 mg PO QID PRN (Reason: Anxiety) Qty: 5 0RF propranolol 10 mg tablet 10 mg PO TID PRN (Reason: Anxiety) Qty: 5 0RF dextroamphetamine-amphetamine [Adderall XR] 30 mg capsule,extended release 24hr 30 mg PO QAM Qty: 14 0RF Rx Instructions: Partial Fill upon patient request. chlorpromazine 50 mg Tablet 50 mg PO QID PRN (Reason: Severe Anxiety) Qty: 5 0RF cyanocobalamin (vitamin B-12) [Vitamin B-12] 1,000 mcg Tablet 1,000 mcg PO DAILY Qty: 7 1RF desvenlafaxine succinate 50 mg tablet extended release 24 hr 100 mg PO DAILY Qty: 14 1RF Discontinued cholecalciferol (vitamin D3) 25 mcg (1,000 unit) Tablet 50 mcg PO DAILY Qty: 60 0RF chlorpromazine 25 mg tablet 75 mg PO BEDTIME clonazepam 1 mg tablet 1 mg PO DAILY PRN (Reason: Anxiety) trazodone 100 mg tablet 300 mg PO BEDTIME prazosin 2 mg capsule 8 mg PO BEDTIME clonazepam 1 mg Tablet 1 mg PO BID lithium carbonate 300 mg tablet 600 mg PO BID Rx Instructions: Take 2 tabs BID. Discharge Orders: Discharge Order (Routine); Ordered 02/15/24 Ordered By: Orin Johnson Diet: Advance to usual diet Activity on Discharge: As tolerated Stand Alone Forms: Patient Portal Discharge page, Community Support Print Language: Slovak Care Plan Goals: Mood and Behavioral Stabilization Health Concerns: Mood and Behavioral Stabilization Plan of Treatment: Attend scheduled appointments Take medications as directed Call/Return if needed Assessment: Sandi plans a return to their home, Racquel their dog, and to their out patient team today. They deny SI,HI,AH/VH. There are no current sx of psychosis, lu. Discharge Date/Time: 02/15/24 12:21
== END 2024-02-15 12:21 | disposition home or self-care (01) | DRG 885 ==
LOC: HO.ED 23:15 → HO.PM5 01-30 13:08
PROVIDERS: Admitting Provider Clinical Nurse Specialist Psychiatric/Mental Health, Adult; Emergency Provider Emergency Medicine; PCP Nurse Practitioner Primary Care; Visit Provider Clinical Nurse Specialist Psychiatric/Mental Health, Adult
DX: F33.2 Major depressive disorder, recurrent severe without psychotic features (principal); R45.851 Suicidal ideations; F44.9 Dissociative and conversion disorder, unspecified; F10.10 Alcohol abuse, uncomplicated; F17.210 Nicotine dependence, cigarettes, uncomplicated; F43.10 Post-traumatic stress disorder, unspecified; Z91.52 Personal history of nonsuicidal self-harm; Y90.5 Blood alcohol level of 100-119 mg/100 ml; Z71.6 Tobacco abuse counseling; Z79.899 Other long term (current) drug therapy
CPT/HCPCS: 36415; 70450; 80048; 80061; 80076; 80143; 80178; 80179; 80307; 81003; 82607; 82746; 83036; 83735; 84439; 84443; 84702; 85025; 93005; 99285; S9485

== ENCOUNTER → 2024-01-29 22:28 | Outpatient (BNV) | payer OTHER, SELFPAY | PROVIDERS: Admitting Provider Clinical Nurse Specialist Psychiatric/Mental Health, Adult; Emergency Provider Emergency Medicine; PCP Nurse Practitioner Primary Care; Visit Provider Internal Medicine | DX: R45.851 Suicidal ideations (principal); F44.81 Dissociative identity disorder; F10.20 Alcohol dependence, uncomplicated | CPT/HCPCS: 93010 ==

== ENCOUNTER → 2024-01-30 12:59 | Outpatient (BNV) | payer OTHER, SELFPAY | PROVIDERS: Admitting Provider Clinical Nurse Specialist Psychiatric/Mental Health, Adult; Emergency Provider Emergency Medicine; PCP Nurse Practitioner Primary Care; Visit Provider Student in an Organized Health Care Education/Training Program | DX: R51.9 Headache, unspecified (principal) | CPT/HCPCS: 99231 ==

== ENCOUNTER → 2024-01-30 12:59 | Outpatient (BNV) | payer OTHER, SELFPAY | PROVIDERS: Admitting Provider Clinical Nurse Specialist Psychiatric/Mental Health, Adult; Emergency Provider Emergency Medicine; PCP Nurse Practitioner Primary Care; Visit Provider Clinical Nurse Specialist Psychiatric/Mental Health, Adult | DX: F33.2 Major depressive disorder, recurrent severe without psychotic features (principal); F44.9 Dissociative and conversion disorder, unspecified; F43.11 Post-traumatic stress disorder, acute; F10.10 Alcohol abuse, uncomplicated | CPT/HCPCS: 90792; 99231; 99232; 99238 ==